=== PATIENT | male | born 1965 | race Caucasian/White ===

== ENCOUNTER 2017-02-12 15:12 | Emergency (ER) | payer SELFPAY ==
[2017-02-12 15:52] VITALS: BP 127/81
[2017-02-12 16:05] LABS: Hematocrit 41.1 % (35.5-45.6); Hemoglobin 13.4 gm/dl (11.8-15.2); Mean Corpuscular HGB Conc 33 % (32-34); Mean Corpuscular Hemoglobin 28 pg (28-32); Mean Corpuscular Volume 87 fl (84-94); Platelet Count 172 K/mm3 (140-440); Red Blood Count 4.75 M/mm3 (3.65-5.03); Red Cell Distribution Width 14.5 % (13.2-15.2); White Blood Count 5.3 K/mm3 (4.5-11.0)
[2017-02-12 16:26] LABS: Anion Gap 14 mmol/L; BUN/Creatinine Ratio 12.72; Blood Urea Nitrogen 14 mg/dL (9-20); Calcium 9.1 mg/dL (8.4-10.2); Carbon Dioxide 28 mmol/L (22-30); Chloride 99.5 mmol/L (98-107); Glucose 82 mg/dL (75-100); Potassium 3.6 mmol/L (3.6-5.0); Sodium 138 mmol/L (137-145)
[2017-02-12 18:31] LABS: Basophils % (Manual) 0 % (0.0-1.8); Blastocytes % (Manual) 0 %
[2017-02-12 18:32] LABS: Diff Status Complete; Ovalocytes Few; Platelet Estimate Consistent w Auto
== END 2017-02-12 17:51 | disposition left against medical advice (07) ==
LOC: ED 15:12
DX: M54.2 Cervicalgia (principal); M25.511 Pain in right shoulder; Z53.21 Procedure and treatment not carried out due to patient leaving prior to being seen by health care provider
CPT/HCPCS: 36415; 80048; 84484; 85007; 85025; 93005; 93010

== ENCOUNTER 2021-05-23 18:10 | Inpatient (IN) | payer OTHER, SELFPAY ==
--- NOTE | 2021-05-23 18:45 | Emergency Department Report ---
HPI - General Chief Complaint: Weakness Time Seen by Provider: 05/23/21 18:32 - HPI HPI: This is a 55-year-old -[place] male presents to the emergency department via EMS from home with the complaints of being Covid positive, shortness of breath, decreased oral intake causing failure to thrive. Supposedly the patient has not eaten anything in the past 12 days. He was found to be Covid positive on 05/11/2021. The patient appears altered and has difficulty communicating. EMS says that the patient has history of a CVA from about 20 years ago. Unknown if there are any residual deficits. He does not appear to have been to our emergency department previously. The patient had an oxygen saturation in the mid to low 70s and was placed on a nonrebreather. ED Past Medical Hx - Past Medical History Previous Medical History?: No - Social History Smoking Status: Current Every Day Smoker Substance Use Type: None ED Review of Systems ROS: Stated complaint: COVID+ /FAILURE TO THRIVE Other details as noted in HPI Comment: Unobtainable due to pts medical conditions Physical Exam - Physical Exam Vital Signs: Vital Signs 05/23/21 18:36 Temperature 97.9 F Pulse Rate 132 H Respiratory 24 Rate Blood Pressure 156/92 [Right] O2 Sat by Pulse 99 Oximetry Physical Exam: GENERAL: The patient is ill-appearing. HENT: Normocephalic. Atraumatic. Patient has moist mucous membranes. EYES: Extraocular motions are intact. Pupils equal reactive to light bilaterally. NECK: Supple. Trachea is midline. CHEST/LUNGS: Rhonchi heard bilaterally. Tachypnea and accessory muscle use. HEART/CARDIOVASCULAR: Regular. There is moderate tachycardia. There is no murmur. ABDOMEN: Abdomen is soft, nontender. Patient has normal bowel sounds. SKIN: Skin is warm and dry. NEURO: Patient is awake but mostly nonverbal. Sometimes makes unintelligible sounds. He does follow commands. No pronator drift to the bilateral upper extremities. Patient is able to briefly lift up his lower extremities but they fall back to the gurney. MUSCULOSKELETAL: There is no tenderness or deformity. ED Course Vital Signs 05/23/21 18:36 Temperature 97.9 F Pulse Rate 132 H Respiratory 24 Rate Blood Pressure 156/92 [Right] O2 Sat by Pulse 99 Oximetry - Consultations Consultation #1: 05/24/21 00:35 I spoke to the actuarial director on-call, Dr. He, regarding the patient's acute kidney injury and uremia. Given the patient's hyponatremia she recommends one half normal saline at about 75 cc/h. She agrees with the plan for a renal ultrasound and will be happy to consult on the patient. ED Medical Decision Making - Lab Data Result diagrams: 05/23/21 18:48 05/23/21 18:48 Lab Results 05/23/21 05/23/21 05/23/21 Range/Units 18:48 18:48 18:48 WBC 11.8 H (4.5-11.0) K/mm3 RBC 5.18 H (3.65-5.03) M/mm3 Hgb 14.4 (11.8-15.2) gm/dl Hct 45.3 (35.5-45.6) % MCV 88 (84-94) fl MCH 28 (28-32) pg MCHC 32 (32-34) % RDW 14.8 (13.2-15.2) % Plt Count 309 (140-440) K/mm3 Add Manual Diff Complete Total Counted 100 Seg Neuts % (Manual) 84.0 H (40.0-70.0) % Band Neutrophils % 1.0 % Lymphocytes % (Manual) 14.0 (13.4-35.0) % Monocytes % (Manual) 1.0 (0.0-7.3) % Nucleated RBC % Not Reportable Seg Neutrophils # Man 9.9 H (1.8-7.7) K/mm3 Band Neutrophils # 0.1 K/mm3 Lymphocytes # (Manual) 1.7 (1.2-5.4) K/mm3 Abs React Lymphs (Man) 0.0 K/mm3 Monocytes # (Manual) 0.1 (0.0-0.8) K/mm3 Eosinophils # (Manual) 0.0 (0.0-0.4) K/mm3 Basophils # (Manual) 0.0 (0.0-0.1) K/mm3 Metamyelocytes # 0.0 K/mm3 Myelocytes # 0.0 K/mm3 Promyelocytes # 0.0 K/mm3 Blast Cells # 0.0 K/mm3 WBC Morphology Not Reportable Hypersegmented Neuts Not Reportable Hyposegmented Neuts Not Reportable Hypogranular Neuts Not Reportable Smudge Cells Not Reportable Toxic Granulation Not Reportable Toxic Vacuolation Not Reportable Dohle Bodies Not Reportable Pelger-Huet Anomaly Not Reportable Kaci Rods Not Reportable Platelet Estimate Consistent w auto Clumped Platelets Not Reportable Plt Clumps, EDTA Not Reportable Large Platelets Not Reportable Giant Platelets Not Reportable Platelet Satelliting Not Reportable Plt Morphology Comment Not Reportable RBC Morphology Not Reportable Dimorphic RBCs Not Reportable Polychromasia Not Reportable Hypochromasia Not Reportable Poikilocytosis Not Reportable Anisocytosis 1+ Microcytosis Not Reportable Macrocytosis Not Reportable Spherocytes Not Reportable Pappenheimer Bodies Not Reportable Sickle Cells Not Reportable Target Cells Not Reportable Tear Drop Cells Not Reportable Ovalocytes Not Reportable Helmet Cells Not Reportable [place] Bodies Not Reportable [place] Rings Not Reportable [place] Cells Not Reportable Bite Cells Not Reportable Crenated Cell Not Reportable Elliptocytes Not Reportable Acanthocytes (Spur) Not Reportable Rouleaux Not Reportable Hemoglobin C Crystals Not Reportable Schistocytes Not Reportable Malaria parasites Not Reportable Dick Bodies Not Reportable Hem Pathologist Commnt No D-Dimer > 93850 H (0-234) ng/mlDDU Sodium (137-145) mmol/L Potassium (3.6-5.0) mmol/L Chloride (98-107) mmol/L Carbon Dioxide (22-30) mmol/L Anion Gap mmol/L BUN (9-20) mg/dL Creatinine (0.8-1.3) mg/dL Estimated GFR ml/min BUN/Creatinine Ratio % Glucose (75-100) mg/dL Lactic Acid 2.30 H* (0.7-2.0) mmol/L Calcium (8.4-10.2) mg/dL Ferritin (30.0-300.0) ng/mL Total Bilirubin (0.1-1.2) mg/dL AST (5-40) units/L ALT (7-56) units/L Alkaline Phosphatase (35-129) units/L Ammonia (25-60) umol/L Lactate Dehydrogenase (91-180) units/L Troponin T (0.00-0.029) ng/mL C-Reactive Protein (0.00-1.30) mg/dL Total Protein (6.3-8.2) g/dL Albumin (3.9-5) g/dL Albumin/Globulin Ratio % TSH (0.270-4.200) mlU/mL Plasma/Serum Alcohol (0-0.07) % 05/23/21 05/23/21 05/23/21 Range/Units 18:48 18:48 18:48 WBC (4.5-11.0) K/mm3 RBC (3.65-5.03) M/mm3 Hgb (11.8-15.2) gm/dl Hct (35.5-45.6) % MCV (84-94) fl MCH (28-32) pg MCHC (32-34) % RDW (13.2-15.2) % Plt Count (140-440) K/mm3 Add Manual Diff Total Counted Seg Neuts % (Manual) (40.0-70.0) % Band Neutrophils % % Lymphocytes % (Manual) (13.4-35.0) % Monocytes % (Manual) (0.0-7.3) % Nucleated RBC % Seg Neutrophils # Man (1.8-7.7) K/mm3 Band Neutrophils # K/mm3 Lymphocytes # (Manual) (1.2-5.4) K/mm3 Abs React Lymphs (Man) K/mm3 Monocytes # (Manual) (0.0-0.8) K/mm3 Eosinophils # (Manual) (0.0-0.4) K/mm3 Basophils # (Manual) (0.0-0.1) K/mm3 Metamyelocytes # K/mm3 Myelocytes # K/mm3 Promyelocytes # K/mm3 Blast Cells # K/mm3 WBC Morphology Hypersegmented Neuts Hyposegmented Neuts Hypogranular Neuts Smudge Cells Toxic Granulation Toxic Vacuolation Dohle Bodies Pelger-Huet Anomaly Kaci Rods Platelet Estimate Clumped Platelets Plt Clumps, EDTA Large Platelets Giant Platelets Platelet Satelliting Plt Morphology Comment RBC Morphology Dimorphic RBCs Polychromasia Hypochromasia Poikilocytosis Anisocytosis Microcytosis Macrocytosis Spherocytes Pappenheimer Bodies Sickle Cells Target Cells Tear Drop Cells Ovalocytes Helmet Cells [place] Bodies [place] Rings Mozelle Cells Bite Cells Crenated Cell Elliptocytes Acanthocytes (Spur) Rouleaux Hemoglobin C Crystals Schistocytes Malaria parasites Dick Bodies Hem Pathologist Commnt D-Dimer (0-234) ng/mlDDU Sodium 151 H (137-145) mmol/L Potassium 5.1 H (3.6-5.0) mmol/L Chloride 113.2 H (98-107) mmol/L Carbon Dioxide 17 L (22-30) mmol/L Anion Gap 26 mmol/L BUN 180 H (9-20) mg/dL Creatinine 4.3 H (0.8-1.3) mg/dL Estimated GFR 14 ml/min BUN/Creatinine Ratio 42 % Glucose 114 H (75-100) mg/dL Lactic Acid (0.7-2.0) mmol/L Calcium 9.5 (8.4-10.2) mg/dL Ferritin 2000.0 H (30.0-300.0) ng/mL Total Bilirubin 0.90 (0.1-1.2) mg/dL AST 27 (5-40) units/L ALT 7 (7-56) units/L Alkaline Phosphatase 69 (35-129) units/L Ammonia 22.0 L (25-60) umol/L Lactate Dehydrogenase 577 H (91-180) units/L Troponin T < 0.010 (0.00-0.029) ng/mL C-Reactive Protein 8.80 H (0.00-1.30) mg/dL Total Protein 9.4 H (6.3-8.2) g/dL Albumin 3.0 L (3.9-5) g/dL Albumin/Globulin Ratio 0.5 % TSH (0.270-4.200) mlU/mL Plasma/Serum Alcohol (0-0.07) % 05/23/21 05/23/21 05/23/21 Range/Units 18:48 18:48 21:06 WBC (4.5-11.0) K/mm3 RBC (3.65-5.03) M/mm3 Hgb (11.8-15.2) gm/dl Hct (35.5-45.6) % MCV (84-94) fl MCH (28-32) pg MCHC (32-34) % RDW (13.2-15.2) % Plt Count (140-440) K/mm3 Add Manual Diff Total Counted Seg Neuts % (Manual) (40.0-70.0) % Band Neutrophils % % Lymphocytes % (Manual) (13.4-35.0) % Monocytes % (Manual) (0.0-7.3) % Nucleated RBC % Seg Neutrophils # Man (1.8-7.7) K/mm3 Band Neutrophils # K/mm3 Lymphocytes # (Manual) (1.2-5.4) K/mm3 Abs React Lymphs (Man) K/mm3 Monocytes # (Manual) (0.0-0.8) K/mm3 Eosinophils # (Manual) (0.0-0.4) K/mm3 Basophils # (Manual) (0.0-0.1) K/mm3 Metamyelocytes # K/mm3 Myelocytes # K/mm3 Promyelocytes # K/mm3 Blast Cells # K/mm3 WBC Morphology Hypersegmented Neuts Hyposegmented Neuts Hypogranular Neuts Smudge Cells Toxic Granulation Toxic Vacuolation Dohle Bodies Pelger-Huet Anomaly Kaci Rods Platelet Estimate Clumped Platelets Plt Clumps, EDTA Large Platelets Giant Platelets Platelet Satelliting Plt Morphology Comment RBC Morphology Dimorphic RBCs Polychromasia Hypochromasia Poikilocytosis Anisocytosis Microcytosis Macrocytosis Spherocytes Pappenheimer Bodies Sickle Cells Target Cells Tear Drop Cells Ovalocytes Helmet Cells [place] Bodies [place] Rings Mozelle Cells Bite Cells Crenated Cell Elliptocytes Acanthocytes (Spur) Rouleaux Hemoglobin C Crystals Schistocytes Malaria parasites Dick Bodies Hem Pathologist Commnt D-Dimer (0-234) ng/mlDDU Sodium (137-145) mmol/L Potassium (3.6-5.0) mmol/L Chloride (98-107) mmol/L Carbon Dioxide (22-30) mmol/L Anion Gap mmol/L BUN (9-20) mg/dL Creatinine (0.8-1.3) mg/dL Estimated GFR ml/min BUN/Creatinine Ratio % Glucose (75-100) mg/dL Lactic Acid 2.10 H* (0.7-2.0) mmol/L Calcium (8.4-10.2) mg/dL Ferritin (30.0-300.0) ng/mL Total Bilirubin (0.1-1.2) mg/dL AST (5-40) units/L ALT (7-56) units/L Alkaline Phosphatase (35-129) units/L Ammonia (25-60) umol/L Lactate Dehydrogenase (91-180) units/L Troponin T (0.00-0.029) ng/mL C-Reactive Protein (0.00-1.30) mg/dL Total Protein (6.3-8.2) g/dL Albumin (3.9-5) g/dL Albumin/Globulin Ratio % TSH 1.150 (0.270-4.200) mlU/mL Plasma/Serum Alcohol < 0.01 (0-0.07) % - EKG Data -: EKG Interpreted by [facility] EKG shows normal: sinus rhythm, axis (Left axis deviation), intervals, QRS complexes, ST-T waves Rate: tachycardia (122 bpm) - EKG Data When compared to previous EKG there are: previous EKG unavailable Interpretation: other (Sinus tachycardia. Normal axis, normal intervals. No ST elevation KS) - Radiology Data Radiology results: report reviewed CT head/brain wo con INDICATION / CLINICAL INFORMATION: 55 years Male; Altered mental status. TECHNIQUE: Routine CT head without contrast. All CT scans at this location are performed using CT dose reduction for ALARA by means of automated exposure control. COMPARISON: None. FINDINGS: BRAIN / INTRACRANIAL CONTENTS: No acute hemorrhage, mass effect, midline shift, hydrocephalus, or acute, large territorial infarct. Mild, diffuse cerebral atrophy suggested. There are mild areas of decreased attenuation in the white matter of the cerebral hemispheres. These are nonspecific findings and may be related to microangiopathy (hypertension, diabetes, atherosclerosis), given the patient's age. CRANIOCERV ICAL JUNCTION: No significant abnormality. ORBITS: No significant abnormality of visualized orbits. SINUSES / MASTOIDS: Visualized paranasal sinuses and mastoid air cells are essentially clear. ADDITIONAL FINDINGS: None. IMPRESSION: 1. No focal mass, hemorrhage, hydrocephalus, or acute, large territorial infarct. Fluoro Time In Minutes: CHEST 1 VIEW INDICATION: Altered mental status. COMPARISON: None FINDINGS: SUPPORT DEVICES: None. HEART: Within normal limits. L UNGS/PLEURA: Mild patchy multifocal airspace disease throughout the lungs. No pleural effusion. ADDITIONAL FINDINGS: None. IMPRESSION: 1. Pulmonary findings as above. NUCLEAR MEDICINE PERFUSION LUNG SCAN INDICATION / CLINICAL INFORMATION: elevated dimer, SOB. TECHNIQUE: 5 mCi of Tc-99m MAA were given by IV. COMPARISON: Chest radiograph dated 05/23/2021. FINDINGS: PERFUSION: No significant perfusion defects. ADDITIONAL FINDINGS: None. IMPRESSION: 1. Low probability for pulmonary embolism. - Medical Decision Making This patient presents to the emergency department with altered mental status, decreased oral intake causing failure to thrive. Patient is awake and will follow some commands but does appear weak, altered and malnourished. He is mostly nonverbal. The patient was found to be positive for COVID-19 about 12 days ago. He was about 75% oxygen saturation on room air and was placed on a nonrebreather. Chest x-ray shows bilateral patchy infiltrates consistent with pneumonia. Patient's labs shows acute kidney injury with a GFR of 14, uremia with a BUN of 180, and elevated inflammatory markers such as D-dimer, LDH, CRP and ferritin levels. With the hypoxia and the elevated D-dimer level, the patient had a ventilation/perfusion scan that was low probability for pulmonary embolism. He had a CT scan of the head without contrast that did not show any bleed, large vessel occlusion, or any other acute process. Nephrology was contacted and consulted regarding the uremia and ANGELES. We were able to titrate the patient down from a nonrebreather to nasal cannula. Patient will be admitted to the hospital for further evaluation and treatment and was accepted for admission by the hospitalist, Dr. Ramsay. Critical Care Time: Yes Critical care time in (mins) excluding proc time.: 35 Critical care attestation.: If time is entered above; I have spent that time in minutes in the direct care of this critically ill patient, excluding procedure time. Critical care time was spent on this patient in doing his initial evaluation, multiple reevaluations, ordering and interpretation of labs and imaging, supplemental oxygen for his hypoxia, IV fluid resuscitation for his failure to thrive, uremia and ANGELES, discussion with the nephrology service. Critical Care Time: 35 minutes ED Disposition Clinical Impression: Suspected 2019 novel coronavirus infection, ANGELES (acute kidney injury), Failure to thrive, Bilateral pneumonia, Hypoxia, Uremia, acute, Encephalopathy Disposition: ADMITTED INPATIENT Is pt being admited?: Yes Condition: Serious Time of Disposition: 21:41
[2021-05-23 19:06] LABS: Hematocrit 45.3 % (35.5-45.6); Hemoglobin 14.4 gm/dl (11.8-15.2); Mean Corpuscular HGB Conc 32 % (32-34); Mean Corpuscular Volume 88 fl (84-94); Platelet Count 309 K/mm3 (140-440); Red Blood Count 5.18 M/mm3 (3.65-5.03); Red Cell Distribution Width 14.8 % (13.2-15.2)
--- NOTE | 2021-05-23 19:12 | XRay Report ---
CHEST 1 VIEW INDICATION: Altered mental status. COMPARISON: None FINDINGS: SUPPORT DEVICES: None. HEART: Within normal limits. LUNGS/PLEURA: Mild patchy multifocal airspace disease throughout the lungs. No pleural effusion. ADDITIONAL FINDINGS: None. IMPRESSION: 1. Pulmonary findings as above. Signer Name: Demian Liriano MD Signed: 05/23/2021 7:08 PM Workstation Name: [id number]
[2021-05-23] MEDS ORDERED: SODIUM CHLORIDE 0.9% 500 ML 500 ML IV ONE (19:15)
[2021-05-23] MEDS ORDERED: SODIUM CHLORIDE 0.9% 1000 ML 1,000 ML IV ONE (19:16)
--- NOTE | 2021-05-23 19:29 | Cat Scan Report ---
CT head/brain wo con INDICATION / CLINICAL INFORMATION: 55 years Male; Altered mental status. TECHNIQUE: Routine CT head without contrast. All CT scans at this location are performed using CT dos e reduction for ALARA by means of automated exposure control. COMPARISON: None. FINDINGS: BRAIN / INTRACRANIAL CONTENTS: No acute hemorrhage, mass effect, midline shift, hydrocephalus, or acu te, large territorial infarct. Mild, diffuse cerebral atrophy suggested. There are mild areas of decreased attenuation in the white matter of the cerebral hemispheres. These are nonspecific findings and may be related to microangiopathy (hypertension, diabetes, atheroscleros is), given the patient's age. CRANIOCERVICAL JUNCTION: No significant abnormality. ORBITS: No significant abnormality of visualized orbits. SINUSES / MASTOIDS: Visualized paranasal sinuses and mastoid air cells are essentially clear. ADDITIONAL FINDINGS: None. IMPRESSION: 1. No focal mass, hemorrhage, hydrocephalus, or acute, large territorial infarct. Signer Name: Cecilio Cavanaugh MD, III Signed: 05/23/2021 7:24 PM Workstation Name: [id number]
[2021-05-23 19:33] LABS: Alanine Aminotransferase 7 units/L (7-56); Calcium 9.5 mg/dL (8.4-10.2); Hemolysis Index 8
[2021-05-23] MEDS ORDERED: dexAMETHasone 4 MG/ML VIAL IV ONE (19:34)
[2021-05-23] MEDS ORDERED: AZITHROMYCIN/NS 500 MG/250 ML 500 MG/250 ML BAG IV ONE (19:35)
[2021-05-23] MEDS ORDERED: cefTRIAXone/NS 1 GM/50 ML 1 GM/50 ML BAG IV ONE (19:35)
[2021-05-23 19:50] LABS: BUN/Creatinine Ratio 42; Blood Urea Nitrogen 180 mg/dL (9-20)
[2021-05-23] MEDS ORDERED: MAGNESIUM HYDROXIDE (MOM) ORAL LIQD UDC PO PRN (22:01)
[2021-05-23] MEDS ORDERED: MORPHINE 4 MG/1 ML INJ IV PRN (22:01)
--- NOTE | 2021-05-23 22:12 | History and Physical Report ---
History of Present Illness Date of examination: 05/23/21 Date of admission: 05/23/2021 Chief complaint: Shortness of Breath History of present illness: 55-year-old -[place] male who was diagnosed with COVID-19 on May 11, 2021 presents to the emergency room today with complaints of shortness of breath and decreased oral intake over the past 10 to 12 days. Patient also has known history of CVA about 20 years ago and it is unknown whether patient had any residual deficits. Patient has not been able to communicate well and most of the history was gotten from the ER staff. Initial oxygen saturation according to EMS was about 70% and patient was placed on nonrebreather. He was eventually placed on oxygen by nasal cannula upon arrival in the emergency room with significant improvement in his oxygen saturation. Work-up in the emergency room reveals a D-dimer greater than 10,000, sodium 151 potassium of 5.1, BUN of 180) and creatinine of 4.3. Patient had a lactic acid of 2.3. WBC was 11.8. CT scan of the head shows no acute abnormality. Chest x-ray shows mild patchy multifocal airspace disease throughout the lungs. No pleural effusion. VQ scan done showed low probability for pulmonary embolism. Patient being admitted with pneumonia possibly secondary to COVID-19, hypoxia and encephalopathy. Past History Past Medical History: No medical history Past Surgical History: No surgical history Social history: smoking (Current daily smoker) Family history: no significant family history Medications and Allergies Allergies Allergy/AdvReac Type Severity Reaction Status Date / Time No Known Allergies Allergy Unverified 02/12/17 15:47 Active Meds: Active Medications Acetaminophen (Acetaminophen 650 Mg Rect Supp) [address] Q6H PRN PRN Reason: Pain MILD(1-3)/Fever >100.5/LUCAS Sodium Chloride (Nacl 0.9% 1000 Ml) 1,000 mls @ 125 mls/hr IV ONCE ONE Stop: 05/24/21 03:15 Sodium Chloride (Nacl 0.9% 1000 Ml) 1,000 mls @ 125 mls/hr IV DIRECT MIKE Ceftriaxone Sodium (Rocephin/Ns 2 Gm/100 Ml) 2 gm in 100 mls @ 200 mls/hr IV Q24H MIKE; Protocol Azithromycin (Zithromax/Ns) 500 mg in 250 mls @ 250 mls/hr IV Q24H MIKE; Protocol Magnesium Hydroxide (Magnesium Hydroxide (Mom) Oral Liqd Udc) 30 ml PO Q4H PRN PRN Reason: Constipation Morphine Sulfate (Morphine 2 Mg/1 Ml Inj) 2 mg IV Q4H PRN PRN Reason: Pain, Moderate (4-6) Morphine Sulfate (Morphine 4 Mg/1 Ml Inj) 4 mg IV Q4H PRN PRN Reason: Pain , Severe (7-10) Sodium Chloride (Sodium Chloride 0.9% 10 Ml Flush Syringe) 10 ml IV BID MIKE Sodium Chloride (Sodium Chloride 0.9% 10 Ml Flush Syringe) 10 ml IV PRN PRN PRN Reason: LINE FLUSH Review of Systems ROS unobtainable: due to mental status Exam - Constitutional Vitals: Temp Pulse Resp BP Pulse Ox 97.9 F 132 H 24 156/92 100 05/23/21 18:36 05/23/21 18:36 05/23/21 18:36 05/23/21 18:36 05/23/21 22:04 General appearance: Present: mild distress, well-nourished - EENT Eyes: Present: PERRL, EOM intact. Absent: scleral icterus ENT: hearing intact, clear oral mucosa, dentition normal - Neck Neck: Present: supple, normal ROM - Respiratory Respiratory effort: normal Respiratory: bilateral: diminished - Cardiovascular Rhythm: regular Heart Sounds: Present: S1 & S2. Absent: gallop, systolic murmur, diastolic murmur, rub, click - Extremities Extremities: no ischemia, pulses intact, pulses symmetrical, No edema, normal temperature, normal color, Full ROM Peripheral Pulses: within normal limits - Abdominal General gastrointestinal: Present: soft, non-tender, non-distended, normal bowel sounds. Absent: mass - Integumentary Integumentary: Present: clear, warm, dry. Absent: rash - Musculoskeletal Musculoskeletal: strength equal bilaterally - Psychiatric Psychiatric: appropriate mood/affect, cooperative - Neurologic Neurologic: CNII-XII intact, no focal deficits, moves all extremities, other (Lethargic, Unresponsive) HEART Score - HEART Score Troponin: Troponin T < 0.010 ng/mL (0.00-0.029) 05/23/21 18:48 Results - Labs CBC & Chem 7: 05/23/21 18:48 05/23/21 18:48 Labs: Abnormal lab results 05/23/21 05/23/21 05/23/21 Range/Units 18:48 18:48 18:48 WBC 11.8 H (4.5-11.0) K/mm3 RBC 5.18 H (3.65-5.03) M/mm3 D-Dimer > 62623 H (0-234) ng/mlDDU Sodium (137-145) mmol/L Potassium (3.6-5.0) mmol/L Chloride (98-107) mmol/L Carbon Dioxide (22-30) mmol/L BUN (9-20) mg/dL Creatinine (0.8-1.3) mg/dL Glucose (75-100) mg/dL Lactic Acid 2.30 H* (0.7-2.0) mmol/L Ferritin (30.0-300.0) ng/mL Ammonia (25-60) umol/L Lactate Dehydrogenase (91-180) units/L C-Reactive Protein (0.00-1.30) mg/dL Total Protein (6.3-8.2) g/dL Albumin (3.9-5) g/dL 05/23/21 05/23/21 05/23/21 Range/Units 18:48 18:48 18:48 WBC (4.5-11.0) K/mm3 RBC (3.65-5.03) M/mm3 D-Dimer (0-234) ng/mlDDU Sodium 151 H (137-145) mmol/L Potassium 5.1 H (3.6-5.0) mmol/L Chloride 113.2 H (98-107) mmol/L Carbon Dioxide 17 L (22-30) mmol/L BUN 180 H (9-20) mg/dL Creatinine 4.3 H (0.8-1.3) mg/dL Glucose 114 H (75-100) mg/dL Lactic Acid (0.7-2.0) mmol/L Ferritin 2000.0 H (30.0-300.0) ng/mL Ammonia 22.0 L (25-60) umol/L Lactate Dehydrogenase 577 H (91-180) units/L C-Reactive Protein 8.80 H (0.00-1.30) mg/dL Total Protein 9.4 H (6.3-8.2) g/dL Albumin 3.0 L (3.9-5) g/dL Assessment and Plan - Patient Problems (1) Bilateral pneumonia Current Visit: Yes Status: Acute Plan to address problem: Possibly secondary to COVID-19 pneumonia. Patient has been started on IV steroid. Was also initiated on empiric IV antibiotics. Will await culture results. (2) Suspected 2019 novel coronavirus infection Current Visit: Yes Status: Acute Plan to address problem: Patient placed on isolation precautions. We await COVID-19 testing. Consult placed to infectious disease for evaluation. (3) Encephalopathy Current Visit: Yes Status: Acute Plan to address problem: Possibly metabolic and also underlying infection. We will continue on IV fluid and empiric IV antibiotics. We will monitor chemistry. We will continue to monitor mental status. (4) ANGELES (acute kidney injury) Current Visit: Yes Status: Acute Plan to address problem: Possibly prerenal. We will continue on IV fluid hydration. Consult placed to nephrology for evaluation. (5) Hypoxia Current Visit: Yes Status: Acute Plan to address problem: Secondary to the underlying pneumonia. We will keep O2 saturation greater or equal to 92%. (6) Failure to thrive Current Visit: Yes Status: Acute Plan to address problem: Secondary to decreased oral intake over the past 12 days. Dietary consult requested for evaluation. (7) DVT prophylaxis Current Visit: Yes Status: Acute Plan to address problem: Patient placed on subcutaneous heparin. (8) Full code status Current Visit: Yes Status: Acute Plan to address problem: Patient is full code.
[2021-05-23] MEDS ORDERED: SODIUM CHLORIDE 0.9% 1000 ML 1,000 ML IV SCH (22:15)
[2021-05-23 22:28] LABS: Anisocytosis 1+; Band Neutrophils # (Manual) 0.1 K/mm3; Platelet Estimate Consistent w Auto; Total Cells Counted 100
--- NOTE | 2021-05-23 23:17 | Nuclear Medicine Report ---
NUCLEAR MEDICINE PERFUSION LUNG SCAN INDICATION / CLINICAL INFORMATION: elevated dimer, SOB. TECHNIQUE: 5 mCi of Tc-99m MAA were given by IV. COMPARISON: Chest radiograph dated 05/23/2021. FINDINGS: PERFUSION: No significant perfusion defects. ADDITIONAL FINDINGS: None. IMPRESSION: 1. Low probability for pulmonary embolism. Signer Name: Babar Sahu MD Signed: 05/23/2021 11:13 PM Workstation Name: [id number]
[2021-05-24] MEDS ORDERED: SODIUM CHLORIDE 0.45% 1000 ML 1,000 ML IV SCH (01:00)
[2021-05-24] MEDS ORDERED: D5W/0.45% NACL 1,000 ML IV SCH (06:00)
[2021-05-24] MEDS: HEPARIN 5,000 UNIT/1 ML VIAL SUB-Q SCH ×3 (06:19→22:21)
--- NOTE | 2021-05-24 08:02 | Ultrasound Report ---
ULTRASOUND RENAL INDICATION / CLINICAL INFORMATION: ANGELES. COMPARISON: None available. FINDINGS: RIGHT KIDNEY: - Length = 9.7 cm. [Normal > 9.0 cm] - Parenchymal Thickness = 1.6 cm. [Normal > 1.5 cm] - Echogenicity: Normal -- hypoechoic or isoechoic to liver/spleen. - Hydronephrosis: None. - Cyst or mass: No significant abnormality. LEFT KIDNEY: - Length = 9.5 cm. [Normal > 9.0 cm] - Parenchymal Thickness = 1.9 cm. [Normal > 1.5 cm] - Echogenicity: Normal -- hypoechoic or isoechoic to liver/spleen. - Hydronephrosis: None. - Cyst or mass: No significant abnormality. URINARY BLADDER: No significant abnormality. ADDITIONAL FINDINGS: None. IMPRESSION: No evidence of medical renal disease or hydronephrosis. Renal Parenchymal Thickness Parenchyma = Cortex + Medullary Pyramid - Normal >= 1.5 cm - Mild thinning = 1.0-1.49 cm - Moderate thinning = 0.5-0.99 cm - Severe thinning < 0.5 cm Signer Name: Speedy Bob MD Signed: 05/24/2021 7:58 AM Workstation Name: [id number]
[2021-05-24] MEDS: MORPHINE 2 MG/1 ML INJ IV PRN (08:33)
--- NOTE | 2021-05-24 10:34 | Progress Note ---
Assessment and Plan Assessment and plan: #Acute hypoxic respiratory failure -O2 saturation 70% via EMS -Currently greater than 92% on nasal cannula -D-dimer greater than 10,000 -Chest x-ray showed patchy multifocal airspace disease bilaterally -VQ scan low probability for PE -We will continue antibiotics and steroids for now -will continue to monitor, if patient condition worsens, low threshold for Pulmonary/CC consult #Sepsis -Patient tachycardic and tachypneic -Blood cultures ordered -Likely secondary to COVID-19 infection/pneumonia #Lactic acidosis -Lactate 2.3 -> 1.70 -Resolved #Acute encephalopathy -CT head negative, ammonia 22 -Patient cooperative follows commands #ANGELES -Creatinine 4.3 -Likely prerenal secondary to volume depletion after several days of no oral intake -Renal ultrasound unremarkable -Nephrology consulted, recs appreciated -will avoid nephrotoxic agents #pneumonia -Continue azithromycin and Rocephin #COVID-19 infection -Diagnosed on 05/11 D-dimer greater than 10,000, ferritin 2000, LDH 577, CRP 8.8 -ID consulted, assistance appreciated -Continue steroids x10 days and cover vitamins #Hypernatremia -Continue D5 half-normal saline -Likely secondary to almost 2 weeks no oral intake Total Time Spent with Patient (Minutes): 30 minutes History Interval history: No events since admission. Patient stable on 5 L. Denies any discomfort. Hospitalist Physical - Physical exam Narrative exam: GENERAL: Thin male. Lying in bed in no acute distress. HEENT: Nasal cannula in place that 5 L/min CHEST/LUNGS: Coarse breath sounds bilaterally. No use of outreach liaison muscles of breathing. HEART/CARDIOVASCULAR: Tachycardic. No murmur, rubs or gallops appreciated. ABDOMEN: +BS. NT/ND. SKIN: Poor skin turgor NEURO: Left lower extremity weakness. Follows all commands. EXTREMITIES: No cyanosis, cubbing or edema. PSYCH: Cooperative. - Constitutional Vitals: Temp Pulse Resp BP Pulse Ox 97.9 F 124 H 33 H 129/80 100 05/23/21 18:36 05/24/21 06:01 05/24/21 06:01 05/24/21 06:01 05/24/21 08:29 General appearance: Present: mild distress, well-nourished HEART Score - HEART Score Troponin: Troponin T < 0.010 ng/mL (0.00-0.029) 05/23/21 18:48 Results - Labs CBC & Chem 7: 05/23/21 18:48 05/23/21 18:48 Labs: Laboratory Last Values WBC 11.8 K/mm3 (4.5-11.0) H 05/23/21 18:48 RBC 5.18 M/mm3 (3.65-5.03) H 05/23/21 18:48 Hgb 14.4 gm/dl (11.8-15.2) 05/23/21 18:48 Hct 45.3 % (35.5-45.6) 05/23/21 18:48 MCV 88 fl (84-94) 05/23/21 18:48 MCH 28 pg (28-32) 05/23/21 18:48 MCHC 32 % (32-34) 05/23/21 18:48 RDW 14.8 % (13.2-15.2) 05/23/21 18:48 Plt Count 309 K/mm3 (140-440) 05/23/21 18:48 Add Manual Diff Complete 05/23/21 18:48 Total Counted 100 05/23/21 18:48 Seg Neuts % (Manual) 84.0 % (40.0-70.0) H 05/23/21 18:48 Band Neutrophils % 1.0 % 05/23/21 18:48 Lymphocytes % (Manual) 14.0 % (13.4-35.0) 05/23/21 18:48 Monocytes % (Manual) 1.0 % (0.0-7.3) 05/23/21 18:48 Nucleated RBC % Not Reportable 05/23/21 18:48 Seg Neutrophils # Man 9.9 K/mm3 (1.8-7.7) H 05/23/21 18:48 Band Neutrophils # 0.1 K/mm3 05/23/21 18:48 Lymphocytes # (Manual) 1.7 K/mm3 (1.2-5.4) 05/23/21 18:48 Abs React Lymphs (Man) 0.0 K/mm3 05/23/21 18:48 Monocytes # (Manual) 0.1 K/mm3 (0.0-0.8) 05/23/21 18:48 Eosinophils # (Manual) 0.0 K/mm3 (0.0-0.4) 05/23/21 18:48 Basophils # (Manual) 0.0 K/mm3 (0.0-0.1) 05/23/21 18:48 Metamyelocytes # 0.0 K/mm3 05/23/21 18:48 Myelocytes # 0.0 K/mm3 05/23/21 18:48 Promyelocytes # 0.0 K/mm3 05/23/21 18:48 Blast Cells # 0.0 K/mm3 05/23/21 18:48 WBC Morphology Not Reportable 05/23/21 18:48 Hypersegmented Neuts Not Reportable 05/23/21 18:48 Hyposegmented Neuts Not Reportable 05/23/21 18:48 Hypogranular Neuts Not Reportable 05/23/21 18:48 Smudge Cells Not Reportable 05/23/21 18:48 Toxic Granulation Not Reportable 05/23/21 18:48 Toxic Vacuolation Not Reportable 05/23/21 18:48 Dohle Bodies Not Reportable 05/23/21 18:48 Pelger-Huet Anomaly Not Reportable 05/23/21 18:48 Kaci Rods Not Reportable 05/23/21 18:48 Platelet Estimate Consistent w auto 05/23/21 18:48 Clumped Platelets Not Reportable 05/23/21 18:48 Plt Clumps, EDTA Not Reportable 05/23/21 18:48 Large Platelets Not Reportable 05/23/21 18:48 Giant Platelets Not Reportable 05/23/21 18:48 Platelet Satelliting Not Reportable 05/23/21 18:48 Plt Morphology Comment Not Reportable 05/23/21 18:48 RBC Morphology Not Reportable 05/23/21 18:48 Dimorphic RBCs Not Reportable 05/23/21 18:48 Polychromasia Not Reportable 05/23/21 18:48 Hypochromasia Not Reportable 05/23/21 18:48 Poikilocytosis Not Reportable 05/23/21 18:48 Anisocytosis 1+ 05/23/21 18:48 Microcytosis Not Reportable 05/23/21 18:48 Macrocytosis Not Reportable 05/23/21 18:48 Spherocytes Not Reportable 05/23/21 18:48 Pappenheimer Bodies Not Reportable 05/23/21 18:48 Sickle Cells Not Reportable 05/23/21 18:48 Target Cells Not Reportable 05/23/21 18:48 Tear Drop Cells Not Reportable 05/23/21 18:48 Ovalocytes Not Reportable 05/23/21 18:48 Helmet Cells Not Reportable 05/23/21 18:48 We[place] Bodies Not Reportable 05/23/21 18:48 Protection Rings Not Reportable 05/23/21 18:48 [place] Cells Not Reportable 05/23/21 18:48 Bite Cells Not Reportable 05/23/21 18:48 Crenated Cell Not Reportable 05/23/21 18:48 Elliptocytes Not Reportable 05/23/21 18:48 Acanthocytes (Spur) Not Reportable 05/23/21 18:48 Rouleaux Not Reportable 05/23/21 18:48 Hemoglobin C Crystals Not Reportable 05/23/21 18:48 Schistocytes Not Reportable 05/23/21 18:48 Malaria parasites Not Reportable 05/23/21 18:48 Dick Bodies Not Reportable 05/23/21 18:48 Hem Pathologist Commnt No 05/23/21 18:48 D-Dimer > 40002 ng/mlDDU (0-234) H 05/23/21 18:48 VBG pH 7.254 (7.320-7.420) L 05/24/21 02:09 Sodium 151 mmol/L (137-145) H 05/23/21 18:48 Potassium 5.1 mmol/L (3.6-5.0) H 05/23/21 18:48 Chloride 113.2 mmol/L (98-107) H 05/23/21 18:48 Carbon Dioxide 17 mmol/L (22-30) L 05/23/21 18:48 Anion Gap 26 mmol/L 05/23/21 18:48 BUN 180 mg/dL (9-20) H 05/23/21 18:48 Creatinine 4.3 mg/dL (0.8-1.3) H 05/23/21 18:48 Estimated GFR 14 ml/min 05/23/21 18:48 BUN/Creatinine Ratio 42 % 05/23/21 18:48 Glucose 114 mg/dL (75-100) H 05/23/21 18:48 Lactic Acid 2.30 mmol/L (0.7-2.0) H* 05/24/21 02:09 Calcium 9.5 mg/dL (8.4-10.2) 05/23/21 18:48 Ferritin 2000.0 ng/mL (30.0-300.0) H 05/23/21 18:48 Total Bilirubin 0.90 mg/dL (0.1-1.2) 05/23/21 18:48 AST 27 units/L (5-40) 05/23/21 18:48 ALT 7 units/L (7-56) 05/23/21 18:48 Alkaline Phosphatase 69 units/L (35-129) 05/23/21 18:48 Ammonia 22.0 umol/L (25-60) L 05/23/21 18:48 Lactate Dehydrogenase 577 units/L (91-180) H 05/23/21 18:48 Troponin T < 0.010 ng/mL (0.00-0.029) 05/23/21 18:48 C-Reactive Protein 8.80 mg/dL (0.00-1.30) H 05/23/21 18:48 Total Protein 9.4 g/dL (6.3-8.2) H 05/23/21 18:48 Albumin 3.0 g/dL (3.9-5) L 05/23/21 18:48 Albumin/Globulin Ratio 0.5 % 05/23/21 18:48 TSH 1.150 mlU/mL (0.270-4.200) 05/23/21 18:48 Plasma/Serum Alcohol < 0.01 % (0-0.07) 05/23/21 18:48 Microbiology: Microbiology 05/23/21 19:50 Peripheral/Venous Blood Culture - Preliminary Culture in Progress 05/23/21 19:42 Peripheral/Venous Blood Culture - Preliminary Culture in Progress Active Medications - Current Medications Current Medications: Generic Name Dose Route Start Last Admin Trade Name Freq PRN Reason Stop Dose Admin Acetaminophen 650 mg 05/23/21 22:01 Acetaminophen 650 Mg Rect Supp ME Q6H PRN Pain MILD(1-3)/Fever >100.5/LUCAS Dexamethasone 6 mg 05/24/21 10:00 Dexamethasone 4 Mg/Ml Vial IV Q24HR MIKE Heparin Sodium (Porcine) 5,000 unit 05/24/21 06:00 05/24/21 06:19 Heparin 5,000 Unit/1 Ml Vial SUB-Q 5,000 unit Q8HR MIKE Administration Ceftriaxone Sodium 2 gm in 100 mls @ 200 mls/hr 05/24/21 10:00 Rocephin/Ns 2 Gm/100 Ml IV Q24HR MIKE Protocol Azithromycin 500 mg in 250 mls @ 250 mls/hr 05/24/21 10:00 Zithromax/Ns IV Q24HR MIKE Protocol Dextrose/Sodium Chloride 1,000 mls @ 100 mls/hr 05/24/21 06:00 05/24/21 08:33 D5/0.45ns IV 100 mls/hr DIRECT MIKE Administration Magnesium Hydroxide 30 ml 05/23/21 22:01 Magnesium Hydroxide (Mom) Oral Liqd Udc PO Q4H PRN Constipation Morphine Sulfate 2 mg 05/23/21 22:01 05/24/21 08:33 Morphine 2 Mg/1 Ml Inj IV 2 mg Q4H PRN Administration Pain, Moderate (4-6) Morphine Sulfate 4 mg 05/23/21 22:01 Morphine 4 Mg/1 Ml Inj IV Q4H PRN Pain , Severe (7-10) Sodium Chloride 10 ml 05/24/21 10:00 Sodium Chloride 0.9% 10 Ml Flush Syringe IV BID MIKE Sodium Chloride 10 ml 05/23/21 22:01 Sodium Chloride 0.9% 10 Ml Flush Syringe IV PRN PRN LINE FLUSH
[2021-05-24] MEDS: cefTRIAXone/NS 2 GM/100 ML 2 GM/100 ML BAG IV SCH (10:39)
[2021-05-24] MEDS: dexAMETHasone 4 MG/ML VIAL IV SCH (10:39)
[2021-05-24] MEDS: AZITHROMYCIN/NS 500 MG/250 ML 500 MG/250 ML BAG IV SCH (11:09)
--- NOTE | 2021-05-24 12:00 | Consultation ---
History of Present Illness - Reason for Consult Consult date: 05/24/21 acute renal failure - History of Present Illness History obtained from medical records 55-year-old -[place] male who was diagnosed with COVID-19 on May 11, 2021 presents to the emergency room today with complaints of shortness of breath and decreased oral intake over the past 10 to 12 days. Patient also has known history of CVA about 20 years ago and it is unknown whether patient had any residual deficits. Patient has not been able to communicate well and most of the history was gotten from the ER staff. Initial oxygen saturation according to EMS was about 70% and patient was placed on nonrebreather. He was eventually placed on oxygen by nasal cannula upon arrival in the emergency room with significant improvement in his oxygen saturation. Work-up in the emergency room reveals a D-dimer greater than 10,000, sodium 151 potassium of 5.1, BUN of 180) and creatinine of 4.3. Patient had a lactic acid of 2.3. WBC was 11.8. CT scan of the head shows no acute abnormality. Chest x-ray shows mild patchy multifocal airspace disease throughout the lungs. No pleural effusion. VQ scan done showed low probability for pulmonary embolism. Patient being admitted with pneumonia possibly secondary to COVID-19, hypoxia and encephalopathy. Past History Past Medical History: No medical history Past Surgical History: No surgical history Social history: smoking (Current daily smoker) Family history: no significant family history Medications and Allergies Allergies Allergy/AdvReac Type Severity Reaction Status Date / Time No Known Allergies Allergy Unverified 02/12/17 15:47 Active Meds: Active Medications Acetaminophen (Acetaminophen 650 Mg Rect Supp) 650 mg MT Q6H PRN PRN Reason: Pain MILD(1-3)/Fever >100.5/LUCAS Dexamethasone (Dexamethasone 4 Mg/Ml Vial) 6 mg IV Q24HR MIKE Last Admin: 05/24/21 10:39 Dose: 6 mg Documented by: Heparin Sodium (Porcine) (Heparin 5,000 Unit/1 Ml Vial) 5,000 unit SUB-Q Q8HR MIKE Last Admin: 05/24/21 06:19 Dose: 5,000 unit Documented by: Ceftriaxone Sodium (Rocephin/Ns 2 Gm/100 Ml) 2 gm in 100 mls @ 200 mls/hr IV Q24HR MIKE; Protocol Last Admin: 05/24/21 10:39 Dose: 200 mls/hr Documented by: Azithromycin (Zithromax/Ns) 500 mg in 250 mls @ 250 mls/hr IV Q24HR MIKE; Protocol Last Admin: 05/24/21 11:09 Dose: 250 mls/hr Documented by: Dextrose/Sodium Chloride (D5/0.45ns) 1,000 mls @ 100 mls/hr IV DIRECT MIKE Last Admin: 05/24/21 08:33 Dose: 100 mls/hr Documented by: Magnesium Hydroxide (Magnesium Hydroxide (Mom) Oral Liqd Udc) 30 ml PO Q4H PRN PRN Reason: Constipation Morphine Sulfate (Morphine 2 Mg/1 Ml Inj) 2 mg IV Q4H PRN PRN Reason: Pain, Moderate (4-6) Last Admin: 05/24/21 08:33 Dose: 2 mg Documented by: Morphine Sulfate (Morphine 4 Mg/1 Ml Inj) 4 mg IV Q4H PRN PRN Reason: Pain , Severe (7-10) Sodium Chloride (Sodium Chloride 0.9% 10 Ml Flush Syringe) 10 ml IV BID MIKE Last Admin: 05/24/21 10:39 Dose: 10 ml Documented by: Sodium Chloride (Sodium Chloride 0.9% 10 Ml Flush Syringe) 10 ml IV PRN PRN PRN Reason: LINE FLUSH Review of Systems ROS unobtainable: due to mental status Exam - Vital Signs Vital signs: Vital Signs Temp Pulse Resp BP Pulse Ox 97.9 F 132 H 24 156/92 99 05/23/21 18:36 05/23/21 18:36 05/23/21 18:36 05/23/21 18:36 05/23/21 18:36 - General Appearance General appearance: well-developed, well-nourished EENT: ATNC, other (mask in place) Respiratory: Other Heart: other (unable to examine - isolation stethoscope unavailable) Integumentary: warm and dry Musculoskeletal: Present: other (no edema) Results - Lab Results 05/23/21 18:48 05/24/21 18:12 Most recent lab results Calcium 9.5 mg/dL (8.4-10.2) 05/23/21 18:48 Assessment and Plan Impression: * Acute kidney injury secondary to ATN likely related to COVID 19 * Acute hypoxic respiratory failure secondary to COVID 19 PNA * Azotemia * Hyperkalemia * Metabolic acidosis Plan: * Renal prognosis is guarded; may require renal replacement therapy * Repeat BMP ordered * Medical management of electrolytes * Continue IVF for hydration * Management of COVID 19 PNA to primary team/ID * Dose medications for renal function * AM labs
[2021-05-24] MEDS ORDERED: TOCILIZUMAB 600 MG in SODIUM CHLORIDE 0.9% 100 ML IV ONE (12:53)
--- NOTE | 2021-05-24 12:54 | Consultation ---
History of Present Illness - Reason for Consult Consult date: 05/24/21 COVID-19, hypoxia Requesting physician: GIFTY DESHPANDE - History of Present Illness The patient is a 55-year-old male admitted to the hospital with COVID-19 and acute hypoxic respiratory failure requiring NRB. He tested positive as an outpatient on 05/11/2021. Labs revealed elevated D-dimer, acute kidney injury, hyperkalemia, hypernatremia, lactic acidosis. Afebrile. Procalcitonin 0.31, ferritin 2000, LDH 577, CRP 8.8. Chest x-ray showed patchy multifocal airspace disease. VQ scan with low probability for pulmonary embolism. Renal ultrasound unremarkable. Review of Systems: reviewed in the chart, unable to obtain, minimize risk of transmission Past History Past Medical History: No medical history Past Surgical History: No surgical history Social history: smoking (Current daily smoker) Family history: no significant family history Medications and Allergies Allergies Allergy/AdvReac Type Severity Reaction Status Date / Time No Known Allergies Allergy Unverified 02/12/17 15:47 Active Meds: Active Medications Acetaminophen (Acetaminophen 650 Mg Rect Supp) 650 mg AL Q6H PRN PRN Reason: Pain MILD(1-3)/Fever >100.5/LUCAS Dexamethasone (Dexamethasone 4 Mg/Ml Vial) 6 mg IV Q24HR MIKE Last Admin: 05/24/21 10:39 Dose: 6 mg Documented by: Heparin Sodium (Porcine) (Heparin 5,000 Unit/1 Ml Vial) 5,000 unit SUB-Q Q8HR MIKE Last Admin: 05/24/21 06:19 Dose: 5,000 unit Documented by: Ceftriaxone Sodium (Rocephin/Ns 2 Gm/100 Ml) 2 gm in 100 mls @ 200 mls/hr IV Q24HR MIKE; Protocol Last Admin: 05/24/21 10:39 Dose: 200 mls/hr Documented by: Azithromycin (Zithromax/Ns) 500 mg in 250 mls @ 250 mls/hr IV Q24HR MIKE; Protocol Last Admin: 05/24/21 11:09 Dose: 250 mls/hr Documented by: Dextrose/Sodium Chloride (D5/0.45ns) 1,000 mls @ 100 mls/hr IV DIRECT MIKE Last Admin: 05/24/21 08:33 Dose: 100 mls/hr Documented by: Magnesium Hydroxide (Magnesium Hydroxide (Mom) Oral Liqd Udc) 30 ml PO Q4H PRN PRN Reason: Constipation Morphine Sulfate (Morphine 2 Mg/1 Ml Inj) 2 mg IV Q4H PRN PRN Reason: Pain, Moderate (4-6) Last Admin: 05/24/21 08:33 Dose: 2 mg Documented by: Morphine Sulfate (Morphine 4 Mg/1 Ml Inj) 4 mg IV Q4H PRN PRN Reason: Pain , Severe (7-10) Sodium Chloride (Sodium Chloride 0.9% 10 Ml Flush Syringe) 10 ml IV BID MIKE Last Admin: 05/24/21 10:39 Dose: 10 ml Documented by: Sodium Chloride (Sodium Chloride 0.9% 10 Ml Flush Syringe) 10 ml IV PRN PRN PRN Reason: LINE FLUSH Physical Examination - Physical Exam Narrative exam: Physical Exam (reviewed in chart to minimize risk of transmission) Constitutional: deferred Head, Ears, Nose: deferred Eyes: deferred Neck: deferred Oral: deferred Cardiovascular: deferred Respiratory: deferred GI: deferred Musculoskeletal: deferred Skin: deferred Hem/Lymphatic: deferred Psych: deferred Neurological: deferred - Constitutional Vitals: Vital Signs Temp Pulse Resp BP Pulse Ox 97.9 F 124 H 33 H 129/80 100 05/23/21 18:36 05/24/21 06:01 05/24/21 06:01 05/24/21 06:01 05/24/21 08:29 Temperature -Last 24 Hours Temperature 97.9 F Results - Labs CBC & Chem 7: 05/23/21 18:48 05/23/21 18:48 Labs: Abnormal lab results 05/23/21 05/23/21 05/23/21 Range/Units 18:48 18:48 18:48 WBC 11.8 H (4.5-11.0) K/mm3 RBC 5.18 H (3.65-5.03) M/mm3 Seg Neuts % (Manual) 84.0 H (40.0-70.0) % Seg Neutrophils # Man 9.9 H (1.8-7.7) K/mm3 D-Dimer > 27949 H (0-234) ng/mlDDU VBG pH (7.320-7.420) Sodium (137-145) mmol/L Potassium (3.6-5.0) mmol/L Chloride (98-107) mmol/L Carbon Dioxide (22-30) mmol/L BUN (9-20) mg/dL Creatinine (0.8-1.3) mg/dL Glucose (75-100) mg/dL Lactic Acid 2.30 H* (0.7-2.0) mmol/L Ferritin (30.0-300.0) ng/mL Ammonia (25-60) umol/L Lactate Dehydrogenase (91-180) units/L C-Reactive Protein (0.00-1.30) mg/dL Total Protein (6.3-8.2) g/dL Albumin (3.9-5) g/dL 05/23/21 05/23/21 05/23/21 Range/Units 18:48 18:48 18:48 WBC (4.5-11.0) K/mm3 RBC (3.65-5.03) M/mm3 Seg Neuts % (Manual) (40.0-70.0) % Seg Neutrophils # Man (1.8-7.7) K/mm3 D-Dimer (0-234) ng/mlDDU VBG pH (7.320-7.420) Sodium 151 H (137-145) mmol/L Potassium 5.1 H (3.6-5.0) mmol/L Chloride 113.2 H (98-107) mmol/L Carbon Dioxide 17 L (22-30) mmol/L BUN 180 H (9-20) mg/dL Creatinine 4.3 H (0.8-1.3) mg/dL Glucose 114 H (75-100) mg/dL Lactic Acid (0.7-2.0) mmol/L Ferritin 2000.0 H (30.0-300.0) ng/mL Ammonia 22.0 L (25-60) umol/L Lactate Dehydrogenase 577 H (91-180) units/L C-Reactive Protein 8.80 H (0.00-1.30) mg/dL Total Protein 9.4 H (6.3-8.2) g/dL Albumin 3.0 L (3.9-5) g/dL 05/23/21 05/24/21 05/24/21 Range/Units 21:06 02:09 02:09 WBC (4.5-11.0) K/mm3 RBC (3.65-5.03) M/mm3 Seg Neuts % (Manual) (40.0-70.0) % Seg Neutrophils # Man (1.8-7.7) K/mm3 D-Dimer (0-234) ng/mlDDU VBG pH 7.254 L (7.320-7.420) Sodium (137-145) mmol/L Potassium (3.6-5.0) mmol/L Chloride (98-107) mmol/L Carbon Dioxide (22-30) mmol/L BUN (9-20) mg/dL Creatinine (0.8-1.3) mg/dL Glucose (75-100) mg/dL Lactic Acid 2.10 H* 2.30 H* (0.7-2.0) mmol/L Ferritin (30.0-300.0) ng/mL Ammonia (25-60) umol/L Lactate Dehydrogenase (91-180) units/L C-Reactive Protein (0.00-1.30) mg/dL Total Protein (6.3-8.2) g/dL Albumin (3.9-5) g/dL - Imaging and Cardiology Chest x-ray: report reviewed, image reviewed (patchy multifocal airspace disease) Assessment and Plan Cultures: SARS CoV2 PCR: Positive as outpatient. Pending here 05/23/2021 blood culture: In process A/P: 55/M with: #Bilateral pneumonia: Likely secondary to COVID-19, tested positive as outpatient. Severe disease. Inflammatory markers elevated. #Acute hypoxic respiratory failure: Requiring NRB #Acute renal failure: Nephrology on board Recs: -IV/PO Dexamethasone x 10 days -Not a candidate for remdesivir due to renal failure and out of window anyway -Based on severity of respiratory failure, CRP >7.5, candidate for Actemra, order placed (depending on availability) -Complete 5 days of empiric antibiotics, procalcitonin with mild elevation, however likely secondary to renal failure -prophylactic anticoagulation based on d-dimer per hospital protocol -trend d-dimer, CRP every 2-3 days Bony Weber MD, FACP [facility] ([facility] O: [phone] F: [phone]
[2021-05-24 14:04] LABS: Calcium 9.9 mg/dL (8.4-10.2)
--- NOTE | 2021-05-24 14:50 | Electrocardiograph Report ---
[facility] Test Date: 2021-05-23 Test Time: 19:36:29 Pat Name: AR SALVADOR Department: Room: [place] [address] Gender: M Box Packer: HOLLIS : 1965 Requested By: KEN GREER Order Number: [id number] Reading MD: Mati Reza Measurements Intervals [place]ile Rate: 122 P: 34 HI: 164 QRS: -25 QRSD: 84 T: 62 QT: 293 QTc: 418 Interpretive Statements Sinus tachycardia No previous ECG available for comparison Electronically Signed On 05-24-2021 14:50:21 EDT by Mati Reza
[2021-05-24] MEDS ORDERED: CALCIUM GLUCONATE 1,000 MG in SODIUM CHLORIDE 0.9% 100 ML IV ONE (17:00)
[2021-05-24] MEDS ORDERED: INSULIN REGULAR, HUMAN 100 UNITS/1 ML IV ONE (17:00)
[2021-05-24] MEDS ORDERED: DEXTROSE 50% IN WATER (25GM) 50 ML SYRINGE IV ONE (17:00)
[2021-05-24] MEDS ORDERED: SODIUM POLYSTYRENE 15 GM/60 ML ORAL LIQD PO ONE (21:00)
[2021-05-25] MEDS: HEPARIN 5,000 UNIT/1 ML VIAL SUB-Q SCH ×3 (06:27→21:43)
[2021-05-25] MEDS: MORPHINE 2 MG/1 ML INJ IV PRN (06:28)
--- NOTE | 2021-05-25 08:45 | Progress Note ---
Assessment and Plan Assessment and plan: #Acute hypoxic respiratory failure -O2 saturation 70% via EMS -Currently greater than 92% on nasal cannula -D-dimer greater than 10,000 -Chest x-ray showed patchy multifocal airspace disease bilaterally -VQ scan low probability for PE -We will continue antibiotics and steroids for now -will continue to monitor, if patient condition worsens, low threshold for Pulmonary/CC consult #Sepsis -improving -Blood cultures NGTD -Likely secondary to pneumonia -COVID-19 PCR negative #Lactic acidosis -Lactate 2.3 -> 1.70 -Resolved #Acute encephalopathy -CT head negative, ammonia 22 -Patient cooperative follows commands #ANGELES -Creatinine 4.3 -Likely prerenal secondary to volume depletion after several days of no oral intake -Renal ultrasound unremarkable -Nephrology consulted, recs appreciated -will avoid nephrotoxic agents #Hyperkalemia -K 6.9-5.4 after medical management -will continue to monitor #pneumonia -Continue azithromycin and Rocephin #COVID-19 infection -Diagnosed on 05/11 D-dimer greater than 10,000, ferritin 2000, LDH 577, CRP 8.8 -ID consulted, assistance appreciated -Continue steroids x10 days and cover vitamins #Hypernatremia -Continue D5 half-normal saline -Likely secondary to almost 2 weeks no oral intake Total Time Spent with Patient (Minutes): 20 minutes History Interval history: No events since admission. Patient stable on 5 L. Denies any discomfort. Hospitalist Physical - Physical exam Narrative exam: GENERAL: Thin male. Lying in bed in no acute distress. HEENT: Nasal cannula in place that 5 L/min CHEST/LUNGS: Coarse breath sounds bilaterally. 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 HEART/CARDIOVASCULAR: RRR. No murmur, rubs or gallops appreciated. ABDOMEN: +BS. NT/ND. SKIN: Poor skin turgor NEURO: Left lower extremity weakness. Follows all commands. EXTREMITIES: No cyanosis, clubbing or edema. PSYCH: Cooperative. - Constitutional Vitals: Temp Pulse Resp BP Pulse Ox 97.9 F 113 H 23 137/80 95 05/23/21 18:36 05/25/21 05:45 05/25/21 05:45 05/25/21 05:45 05/25/21 05:45 General appearance: Present: mild distress, well-nourished HEART Score - HEART Score Troponin: Troponin T < 0.010 ng/mL (0.00-0.029) 05/23/21 18:48 Results - Labs CBC & Chem 7: 05/25/21 11:33 05/25/21 11:33 Labs: Laboratory Last Values WBC 11.8 K/mm3 (4.5-11.0) H 05/23/21 18:48 RBC 5.18 M/mm3 (3.65-5.03) H 05/23/21 18:48 Hgb 14.4 gm/dl (11.8-15.2) 05/23/21 18:48 Hct 45.3 % (35.5-45.6) 05/23/21 18:48 MCV 88 fl (84-94) 05/23/21 18:48 MCH 28 pg (28-32) 05/23/21 18:48 MCHC 32 % (32-34) 05/23/21 18:48 RDW 14.8 % (13.2-15.2) 05/23/21 18:48 Plt Count 309 K/mm3 (140-440) 05/23/21 18:48 Add Manual Diff Complete 05/23/21 18:48 Total Counted 100 05/23/21 18:48 Seg Neuts % (Manual) 84.0 % (40.0-70.0) H 05/23/21 18:48 Band Neutrophils % 1.0 % 05/23/21 18:48 Lymphocytes % (Manual) 14.0 % (13.4-35.0) 05/23/21 18:48 Monocytes % (Manual) 1.0 % (0.0-7.3) 05/23/21 18:48 Nucleated RBC % Not Reportable 05/23/21 18:48 Seg Neutrophils # Man 9.9 K/mm3 (1.8-7.7) H 05/23/21 18:48 Band Neutrophils # 0.1 K/mm3 05/23/21 18:48 Lymphocytes # (Manual) 1.7 K/mm3 (1.2-5.4) 05/23/21 18:48 Abs React Lymphs (Man) 0.0 K/mm3 05/23/21 18:48 Monocytes # (Manual) 0.1 K/mm3 (0.0-0.8) 05/23/21 18:48 Eosinophils # (Manual) 0.0 K/mm3 (0.0-0.4) 05/23/21 18:48 Basophils # (Manual) 0.0 K/mm3 (0.0-0.1) 05/23/21 18:48 Metamyelocytes # 0.0 K/mm3 05/23/21 18:48 Myelocytes # 0.0 K/mm3 05/23/21 18:48 Promyelocytes # 0.0 K/mm3 05/23/21 18:48 Blast Cells # 0.0 K/mm3 05/23/21 18:48 WBC Morphology Not Reportable 05/23/21 18:48 Hypersegmented Neuts Not Reportable 05/23/21 18:48 Hyposegmented Neuts Not Reportable 05/23/21 18:48 Hypogranular Neuts Not Reportable 05/23/21 18:48 Smudge Cells Not Reportable 05/23/21 18:48 Toxic Granulation Not Reportable 05/23/21 18:48 Toxic Vacuolation Not Reportable 05/23/21 18:48 Dohle Bodies Not Reportable 05/23/21 18:48 Pelger-Huet Anomaly Not Reportable 05/23/21 18:48 Kaci Rods Not Reportable 05/23/21 18:48 Platelet Estimate Consistent w auto 05/23/21 18:48 Clumped Platelets Not Reportable 05/23/21 18:48 Plt Clumps, EDTA Not Reportable 05/23/21 18:48 Large Platelets Not Reportable 05/23/21 18:48 Giant Platelets Not Reportable 05/23/21 18:48 Platelet Satelliting Not Reportable 05/23/21 18:48 Plt Morphology Comment Not Reportable 05/23/21 18:48 RBC Morphology Not Reportable 05/23/21 18:48 Dimorphic RBCs Not Reportable 05/23/21 18:48 Polychromasia Not Reportable 05/23/21 18:48 Hypochromasia Not Reportable 05/23/21 18:48 Poikilocytosis Not Reportable 05/23/21 18:48 Anisocytosis 1+ 05/23/21 18:48 Microcytosis Not Reportable 05/23/21 18:48 Macrocytosis Not Reportable 05/23/21 18:48 Spherocytes Not Reportable 05/23/21 18:48 Pappenheimer Bodies Not Reportable 05/23/21 18:48 Sickle Cells Not Reportable 05/23/21 18:48 Target Cells Not Reportable 05/23/21 18:48 Tear Drop Cells Not Reportable 05/23/21 18:48 Ovalocytes Not Reportable 05/23/21 18:48 Helmet Cells Not Reportable 05/23/21 18:48 Weems-Neal Bodies Not Reportable 05/23/21 18:48 [place] Rings Not Reportable 05/23/21 18:48 Leslie Cells Not Reportable 05/23/21 18:48 Bite Cells Not Reportable 05/23/21 18:48 Crenated Cell Not Reportable 05/23/21 18:48 Elliptocytes Not Reportable 05/23/21 18:48 Acanthocytes (Spur) Not Reportable 05/23/21 18:48 Rouleaux Not Reportable 05/23/21 18:48 Hemoglobin C Crystals Not Reportable 05/23/21 18:48 Schistocytes Not Reportable 05/23/21 18:48 Malaria parasites Not Reportable 05/23/21 18:48 Dick Bodies Not Reportable 05/23/21 18:48 Hem Pathologist Commnt No 05/23/21 18:48 D-Dimer > 19038 ng/mlDDU (0-234) H 05/23/21 18:48 VBG pH 7.254 (7.320-7.420) L 05/24/21 02:09 Sodium 155 mmol/L (137-145) H 05/24/21 13:11 Potassium 5.7 mmol/L (3.6-5.0) H 05/24/21 18:12 Chloride 121.9 mmol/L (98-107) H 05/24/21 13:11 Carbon Dioxide 20 mmol/L (22-30) L 05/24/21 13:11 Anion Gap 20 mmol/L 05/24/21 13:11 BUN 139 mg/dL (9-20) H 05/24/21 13:11 Creatinine 2.7 mg/dL (0.8-1.3) H 05/24/21 13:11 Estimated GFR 30 ml/min 05/24/21 13:11 BUN/Creatinine Ratio 51 % 05/24/21 13:11 Glucose 139 mg/dL (75-100) H 05/24/21 13:11 POC Glucose 153 mg/dL (70-105) H 05/24/21 17:34 Lactic Acid 1.70 mmol/L (0.7-2.0) 05/24/21 09:39 Calcium 9.9 mg/dL (8.4-10.2) 05/24/21 13:11 Ferritin 2000.0 ng/mL (30.0-300.0) H 05/23/21 18:48 Total Bilirubin 0.90 mg/dL (0.1-1.2) 05/23/21 18:48 AST 27 units/L (5-40) 05/23/21 18:48 ALT 7 units/L (7-56) 05/23/21 18:48 Alkaline Phosphatase 69 units/L (35-129) 05/23/21 18:48 Ammonia 22.0 umol/L (25-60) L 05/23/21 18:48 Lactate Dehydrogenase 577 units/L (91-180) H 05/23/21 18:48 Troponin T < 0.010 ng/mL (0.00-0.029) 05/23/21 18:48 C-Reactive Protein 8.80 mg/dL (0.00-1.30) H 05/23/21 18:48 Total Protein 9.4 g/dL (6.3-8.2) H 05/23/21 18:48 Albumin 3.0 g/dL (3.9-5) L 05/23/21 18:48 Albumin/Globulin Ratio 0.5 % 05/23/21 18:48 Procalcitonin 0.31 ng/mL (<0.15) 05/23/21 18:48 TSH 1.150 mlU/mL (0.270-4.200) 05/23/21 18:48 Plasma/Serum Alcohol < 0.01 % (0-0.07) 05/23/21 18:48 Coronavirus (PCR) Negative (Negative) 05/24/21 09:10 Microbiology: Microbiology 05/23/21 19:42 Peripheral/Venous Blood Culture - Preliminary NO GROWTH AFTER 24 HOURS 05/23/21 19:50 Peripheral/Venous Blood Culture - Preliminary NO GROWTH AFTER 24 HOURS Active Medications - Current Medications Current Medications: Generic Name Dose Route Start Last Admin Trade Name Freq PRN Reason Stop Dose Admin Acetaminophen 650 mg 05/23/21 22:01 Acetaminophen 650 Mg Rect Supp ID Q6H PRN Pain MILD(1-3)/Fever >100.5/LUCAS Dexamethasone 6 mg 05/24/21 10:00 05/24/21 10:39 Dexamethasone 4 Mg/Ml Vial IV 6 mg Q24HR MIKE Administration Heparin Sodium (Porcine) 5,000 unit 05/24/21 06:00 05/25/21 06:27 Heparin 5,000 Unit/1 Ml Vial SUB-Q 5,000 unit Q8HR MIKE Administration Ceftriaxone Sodium 2 gm in 100 mls @ 200 mls/hr 05/24/21 10:00 05/24/21 10:39 Rocephin/Ns 2 Gm/100 Ml IV 200 mls/hr Q24HR MIKE Administration Protocol Azithromycin 500 mg in 250 mls @ 250 mls/hr 05/24/21 10:00 05/24/21 11:09 Zithromax/Ns IV 250 mls/hr Q24HR MIKE Administration Protocol Dextrose/Sodium Chloride 1,000 mls @ 100 mls/hr 05/24/21 06:00 05/24/21 08:33 D5/0.45ns IV 100 mls/hr DIRECT MIKE Administration TOCILIZUMAB 600 mg/ Sodium 130 mls @ 120 mls/hr 05/24/21 12:53 Chloride IV 05/24/21 13:57 ONCE ONE Magnesium Hydroxide 30 ml 05/23/21 22:01 Magnesium Hydroxide (Mom) Oral Liqd Udc PO Q4H PRN Constipation Morphine Sulfate 2 mg 05/23/21 22:01 05/25/21 06:28 Morphine 2 Mg/1 Ml Inj IV 2 mg Q4H PRN Administration Pain, Moderate (4-6) Morphine Sulfate 4 mg 05/23/21 22:01 Morphine 4 Mg/1 Ml Inj IV Q4H PRN Pain , Severe (7-10) Sodium Chloride 10 ml 05/24/21 10:00 05/24/21 22:22 Sodium Chloride 0.9% 10 Ml Flush Syringe IV 10 ml BID MIKE Administration Sodium Chloride 10 ml 05/23/21 22:01 Sodium Chloride 0.9% 10 Ml Flush Syringe IV PRN PRN LINE FLUSH
--- NOTE | 2021-05-25 09:37 | Progress Note ---
Assessment and Plan Cultures: SARS CoV2 PCR: Positive as outpatient. Negative here 05/23/2021 blood culture: no growth A/P: 55/M with: #Bilateral pneumonia: ? secondary to COVID-19, tested positive as outpatient, bu t negative here. Severe disease. Inflammatory markers elevated. #Acute hypoxic respiratory failure: Requiring NRB, now weaned to 7L [place]. #Acute renal failure: Nephrology on board. Recs: -COVID-19 PCR came back negative, Actemra ordered discontinued -Repeat COVID-19 PCR ordered -Continue IV/PO Dexamethasone x 10 days -Not a candidate for remdesivir due to renal failure and out of window anyway -Complete 5 days of empiric antibiotics -prophylactic anticoagulation based on d-dimer per hospital protocol -trend d-dimer, CRP every 2-3 days Bony Weber MD, FACP [facility] O: [phone] F: [phone] Subjective Date of service: 05/25/21 Interval history: Afebrile. COVID-19 PCR came back negative here. Oxygen weaned to 7 L [place]. Objective - Exam Narrative Exam: Physical Exam (reviewed in chart to minimize risk of transmission) Constitutional: deferred Head, Ears, Nose: deferred Eyes: deferred Neck: deferred Oral: deferred Cardiovascular: deferred Respiratory: deferred GI: deferred Musculoskeletal: deferred Skin: deferred Hem/Lymphatic: deferred Psych: deferred Neurological: deferred - Constitutional Vitals: Vital Signs Temp Pulse Resp BP Pulse Ox 97.9 F 113 H 23 137/80 95 05/23/21 18:36 05/25/21 05:45 05/25/21 05:45 05/25/21 05:45 05/25/21 05:45 - Labs CBC & Chem 7: 05/23/21 18:48 05/24/21 18:12 Labs: Abnormal lab results 05/24/21 05/24/21 05/24/21 Range/Units 13:11 17:34 18:12 Sodium 155 H (137-145) mmol/L Potassium 6.9 H* D 5.7 H (3.6-5.0) mmol/L Chloride 121.9 H (98-107) mmol/L Carbon Dioxide 20 L (22-30) mmol/L BUN 139 H (9-20) mg/dL Creatinine 2.7 H (0.8-1.3) mg/dL Glucose 139 H (75-100) mg/dL POC Glucose 153 H (70-105) mg/dL
[2021-05-25] MEDS: AZITHROMYCIN/NS 500 MG/250 ML 500 MG/250 ML BAG IV SCH (09:56)
[2021-05-25] MEDS: cefTRIAXone/NS 2 GM/100 ML 2 GM/100 ML BAG IV SCH (09:56)
[2021-05-25] MEDS: dexAMETHasone 4 MG/ML VIAL IV SCH (09:56)
[2021-05-25 12:18] LABS: Calcium 9.7 mg/dL (8.4-10.2)
[2021-05-25 12:38] LABS: Hematocrit 44.6 % (35.5-45.6); Hemoglobin 14.1 gm/dl (11.8-15.2); Mean Corpuscular HGB Conc 32 % (32-34); Mean Corpuscular Volume 88 fl (84-94); Platelet Count 255 K/mm3 (140-440); Red Blood Count 5.06 M/mm3 (3.65-5.03); Red Cell Distribution Width 15.2 % (13.2-15.2)
--- NOTE | 2021-05-25 16:54 | Progress Note ---
Assessment and Plan Impression: * Acute kidney injury secondary to ATN likely related to COVID 19 * Acute hypoxic respiratory failure secondary to COVID 19 PNA * Azotemia * Hyperkalemia * Metabolic acidosis * Hypernatremia Plan: * Renal function improved - SCr trending down * Hypernatremia worsened - change D5 1/2NS to D5W 100ml/hour * Medical management of electrolytes * Patient is s/p kayexelate 30g yesterday; repeat dose today * Management of COVID 19 PNA to primary team/ID * Dose medications for renal function * AM labs * Renal diet Subjective Date of service: 05/25/21 Interval history: Chart, labs, vitals reviewed. Objective - Exam Narrative Exam: In effort to reduce transmission of COVID 19, physical exam deferred. - Vital Signs Vital signs: Vital Signs - 12hr 05/25/21 05/25/21 05/25/21 05:01 05:15 05:31 Pulse Rate 115 H 115 H 108 H Respiratory 35 H 22 12 Rate Blood Pressure 131/82 135/84 134/82 O2 Sat by Pulse 81 L 87 Oximetry 05/25/21 05/25/21 05/25/21 05:45 08:00 10:00 Pulse Rate 113 H 85 Respiratory 23 30 H 34 H Rate Blood Pressure 137/80 O2 Sat by Pulse 95 100 100 Oximetry 05/25/21 05/25/21 12:00 14:00 Pulse Rate Respiratory 32 H 30 H Rate Blood Pressure O2 Sat by Pulse 100 100 Oximetry - Lab 05/25/21 11:33 05/25/21 11:33 Most recent lab results Calcium 9.7 mg/dL (8.4-10.2) 05/25/21 11:33 Medications & Allergies - Medications Allergies/Adverse Reactions: Allergies No Known Allergies Allergy (Unverified 02/12/17 15:47) Active Medications: Generic Name Dose Route Start Last Admin Trade Name Freq PRN Reason Stop Dose Admin Acetaminophen 650 mg 05/23/21 22:01 Acetaminophen 650 Mg Rect Supp FL Q6H PRN Pain MILD(1-3)/Fever >100.5/LUCAS Dexamethasone 6 mg 05/24/21 10:00 05/25/21 09:56 Dexamethasone 4 Mg/Ml Vial IV 6 mg Q24HR MIKE Administration Heparin Sodium (Porcine) 5,000 unit 05/24/21 06:00 05/25/21 13:31 Heparin 5,000 Unit/1 Ml Vial SUB-Q 5,000 unit Q8HR MIKE Administration Ceftriaxone Sodium 2 gm in 100 mls @ 200 mls/hr 05/24/21 10:00 05/25/21 09:56 Rocephin/Ns 2 Gm/100 Ml IV 05/27/21 10:29 200 mls/hr Q24HR MIKE Administration Protocol Azithromycin 500 mg in 250 mls @ 250 mls/hr 05/24/21 10:00 05/25/21 09:56 Zithromax/Ns IV 05/27/21 10:59 250 mls/hr Q24HR MIKE Administration Protocol Dextrose/Sodium Chloride 1,000 mls @ 100 mls/hr 05/24/21 06:00 05/24/21 08:33 D5/0.45ns IV 100 mls/hr DIRECT MIKE Administration Magnesium Hydroxide 30 ml 05/23/21 22:01 Magnesium Hydroxide (Mom) Oral Liqd Udc PO Q4H PRN Constipation Morphine Sulfate 2 mg 05/23/21 22:01 05/25/21 06:28 Morphine 2 Mg/1 Ml Inj IV 2 mg Q4H PRN Administration Pain, Moderate (4-6) Morphine Sulfate 4 mg 05/23/21 22:01 Morphine 4 Mg/1 Ml Inj IV Q4H PRN Pain , Severe (7-10) Sodium Chloride 10 ml 05/24/21 10:00 05/25/21 09:57 Sodium Chloride 0.9% 10 Ml Flush Syringe IV 10 ml BID MIKE Administration Sodium Chloride 10 ml 05/23/21 22:01 Sodium Chloride 0.9% 10 Ml Flush Syringe IV PRN PRN LINE FLUSH
[2021-05-25] MEDS ORDERED: SODIUM POLYSTYRENE 15 GM/60 ML ORAL LIQD PO ONE (16:57)
[2021-05-25] MEDS ORDERED: DEXTROSE 5% IN WATER 1,000 ML IV SCH (17:00)
[2021-05-26 04:14] LABS: Hematocrit 48.5 % (35.5-45.6); Hemoglobin 15.3 gm/dl (11.8-15.2); Mean Corpuscular HGB Conc 32 % (32-34); Mean Corpuscular Volume 89 fl (84-94); Platelet Count 273 K/mm3 (140-440); Red Blood Count 5.43 M/mm3 (3.65-5.03); Red Cell Distribution Width 15.4 % (13.2-15.2)
[2021-05-26 05:09] LABS: C-Reactive Protein 7.9 mg/dL (0.00-1.30)
[2021-05-26] MEDS: ACETAMINOPHEN 650 MG RECT SUPP PR PRN (05:18)
[2021-05-26] MEDS ORDERED: D5W/0.45% NACL 1,000 ML IV SCH ×2 (06:00→10:00)
[2021-05-26] MEDS: HEPARIN 5,000 UNIT/1 ML VIAL SUB-Q SCH ×3 (06:10→22:53)
--- NOTE | 2021-05-26 07:47 | Progress Note ---
Assessment and Plan Assessment and plan: #Acute hypoxic respiratory failure -Currently greater than 92% on nasal cannula -D-dimer greater than 10,000 -> 6229 -VQ scan low probability for PE -continue antibiotics and steroids for now -will continue to monitor, if patient condition worsens, low threshold for Pulmonary/CC consult #Sepsis -improving -Blood cultures NGTD -Likely secondary to pneumonia -repeat COVID-19 PCR negative #Lactic acidosis -Lactate 2.3 -> 1.70 -Resolved #Acute encephalopathy -Resolved -CT head negative, ammonia 22 -Patient cooperative follows commands #ANGELES -Creatinine 1.8 today -Likely prerenal secondary to volume depletion after several days of no oral intake -Renal ultrasound unremarkable -Nephrology consulted, recs appreciated -will avoid nephrotoxic agents #Hyperkalemia -K 5.5 today -will continue to monitor #pneumonia -Continue azithromycin and Rocephin #COVID-19 infection -Diagnosed on 05/11 -D-dimer greater than 10,000, ferritin 2000, LDH 577, CRP 8.8 -ID consulted, assistance appreciated -Continue steroids x10 days and vitamins #Hypernatremia -continue D5 half-normal saline -Likely secondary to almost 2 weeks no oral intake Total Time Spent with Patient (Minutes): 30 minutes History Interval history: No events since admission. Patient currently on 3 L. Expresses wishes to go home. Hospitalist Physical - Physical exam Narrative exam: GENERAL: Thin male. Lying in bed in no acute distress. HEENT: Nasal cannula in place, 3 L/min CHEST/LUNGS: Coarse breath sounds bilaterally. No use of assessory muscles of breathing. HEART/CARDIOVASCULAR: Tachycardic. No murmur, rubs or gallops appreciated. ABDOMEN: +BS. NT/ND. NEURO: Left lower extremity weakness. Follows all commands. EXTREMITIES: No cyanosis, clubbing or edema. PSYCH: Cooperative. - Constitutional Vitals: Temp Pulse Resp BP Pulse Ox 98.0 F 134 H 28 H 123/86 95 05/26/21 07:08 05/26/21 07:01 05/26/21 07:01 05/26/21 07:01 05/26/21 07:01 General appearance: Present: mild distress, well-nourished - Allied Health Allied health notes reviewed: nursing HEART Score - HEART Score Troponin: Troponin T < 0.010 ng/mL (0.00-0.029) 05/23/21 18:48 Results - Labs CBC & Chem 7: 05/26/21 03:15 05/26/21 03:15 Labs: Laboratory Last Values WBC 13.1 K/mm3 (4.5-11.0) H 05/26/21 03:15 RBC 5.43 M/mm3 (3.65-5.03) H 05/26/21 03:15 Hgb 15.3 gm/dl (11.8-15.2) H 05/26/21 03:15 Hct 48.5 % (35.5-45.6) H 05/26/21 03:15 MCV 89 fl (84-94) 05/26/21 03:15 MCH 28 pg (28-32) 05/26/21 03:15 MCHC 32 % (32-34) 05/26/21 03:15 RDW 15.4 % (13.2-15.2) H 05/26/21 03:15 Plt Count 273 K/mm3 (140-440) 05/26/21 03:15 Add Manual Diff Complete 05/23/21 18:48 Total Counted 100 05/23/21 18:48 Seg Neuts % (Manual) 84.0 % (40.0-70.0) H 05/23/21 18:48 Band Neutrophils % 1.0 % 05/23/21 18:48 Lymphocytes % (Manual) 14.0 % (13.4-35.0) 05/23/21 18:48 Monocytes % (Manual) 1.0 % (0.0-7.3) 05/23/21 18:48 Nucleated RBC % Not Reportable 05/23/21 18:48 Seg Neutrophils # Man 9.9 K/mm3 (1.8-7.7) H 05/23/21 18:48 Band Neutrophils # 0.1 K/mm3 05/23/21 18:48 Lymphocytes # (Manual) 1.7 K/mm3 (1.2-5.4) 05/23/21 18:48 Abs React Lymphs (Man) 0.0 K/mm3 05/23/21 18:48 Monocytes # (Manual) 0.1 K/mm3 (0.0-0.8) 05/23/21 18:48 Eosinophils # (Manual) 0.0 K/mm3 (0.0-0.4) 05/23/21 18:48 Basophils # (Manual) 0.0 K/mm3 (0.0-0.1) 05/23/21 18:48 Metamyelocytes # 0.0 K/mm3 05/23/21 18:48 Myelocytes # 0.0 K/mm3 05/23/21 18:48 Promyelocytes # 0.0 K/mm3 05/23/21 18:48 Blast Cells # 0.0 K/mm3 05/23/21 18:48 WBC Morphology Not Reportable 05/23/21 18:48 Hypersegmented Neuts Not Reportable 05/23/21 18:48 Hyposegmented Neuts Not Reportable 05/23/21 18:48 Hypogranular Neuts Not Reportable 05/23/21 18:48 Smudge Cells Not Reportable 05/23/21 18:48 Toxic Granulation Not Reportable 05/23/21 18:48 Toxic Vacuolation Not Reportable 05/23/21 18:48 Dohle Bodies Not Reportable 05/23/21 18:48 Pelger-Huet Anomaly Not Reportable 05/23/21 18:48 Kaci Rods Not Reportable 05/23/21 18:48 Platelet Estimate Consistent w auto 05/23/21 18:48 Clumped Platelets Not Reportable 05/23/21 18:48 Plt Clumps, EDTA Not Reportable 05/23/21 18:48 Large Platelets Not Reportable 05/23/21 18:48 Giant Platelets Not Reportable 05/23/21 18:48 Platelet Satelliting Not Reportable 05/23/21 18:48 Plt Morphology Comment Not Reportable 05/23/21 18:48 RBC Morphology Not Reportable 05/23/21 18:48 Dimorphic RBCs Not Reportable 05/23/21 18:48 Polychromasia Not Reportable 05/23/21 18:48 Hypochromasia Not Reportable 05/23/21 18:48 Poikilocytosis Not Reportable 05/23/21 18:48 Anisocytosis 1+ 05/23/21 18:48 Microcytosis Not Reportable 05/23/21 18:48 Macrocytosis Not Reportable 05/23/21 18:48 Spherocytes Not Reportable 05/23/21 18:48 Pappenheimer Bodies Not Reportable 05/23/21 18:48 Sickle Cells Not Reportable 05/23/21 18:48 Target Cells Not Reportable 05/23/21 18:48 Tear Drop Cells Not Reportable 05/23/21 18:48 Ovalocytes Not Reportable 05/23/21 18:48 Helmet Cells Not Reportable 05/23/21 18:48 [place] Bodies Not Reportable 05/23/21 18:48 [place] Rings Not Reportable 05/23/21 18:48 [place] Cells Not Reportable 05/23/21 18:48 Bite Cells Not Reportable 05/23/21 18:48 Crenated Cell Not Reportable 05/23/21 18:48 Elliptocytes Not Reportable 05/23/21 18:48 Acanthocytes (Spur) Not Reportable 05/23/21 18:48 Rouleaux Not Reportable 05/23/21 18:48 Hemoglobin C Crystals Not Reportable 05/23/21 18:48 Schistocytes Not Reportable 05/23/21 18:48 Malaria parasites Not Reportable 05/23/21 18:48 Dick Bodies Not Reportable 05/23/21 18:48 Hem Pathologist Commnt No 05/23/21 18:48 D-Dimer 6229.14 ng/mlDDU (0-234) H 05/26/21 03:15 VBG pH 7.254 (7.320-7.420) L 05/24/21 02:09 Sodium 166 mmol/L (137-145) H* 05/26/21 03:15 Potassium 5.5 mmol/L (3.6-5.0) H 05/26/21 03:15 Chloride 129.2 mmol/L (98-107) H 05/26/21 03:15 Carbon Dioxide 23 mmol/L (22-30) 05/26/21 03:15 Anion Gap 19 mmol/L 05/26/21 03:15 BUN 102 mg/dL (9-20) H 05/26/21 03:15 Creatinine 1.8 mg/dL (0.8-1.3) H 05/26/21 03:15 Estimated GFR 48 ml/min 05/26/21 03:15 BUN/Creatinine Ratio 57 % 05/26/21 03:15 Glucose 113 mg/dL (75-100) H 05/26/21 03:15 POC Glucose 153 mg/dL (70-105) H 05/24/21 17:34 Lactic Acid 1.70 mmol/L (0.7-2.0) 05/24/21 09:39 Calcium 10.0 mg/dL (8.4-10.2) 05/26/21 03:15 Ferritin 2991.0 ng/mL (30.0-300.0) H 05/26/21 03:15 Total Bilirubin 0.90 mg/dL (0.1-1.2) 05/23/21 18:48 AST 27 units/L (5-40) 05/23/21 18:48 ALT 7 units/L (7-56) 05/23/21 18:48 Alkaline Phosphatase 69 units/L (35-129) 05/23/21 18:48 Ammonia 22.0 umol/L (25-60) L 05/23/21 18:48 Lactate Dehydrogenase 711 units/L (91-180) H 05/26/21 03:15 Troponin T < 0.010 ng/mL (0.00-0.029) 05/23/21 18:48 C-Reactive Protein 7.90 mg/dL (0.00-1.30) H 05/26/21 03:15 Total Protein 9.4 g/dL (6.3-8.2) H 05/23/21 18:48 Albumin 3.0 g/dL (3.9-5) L 05/23/21 18:48 Albumin/Globulin Ratio 0.5 % 05/23/21 18:48 Procalcitonin 0.31 ng/mL (<0.15) 05/23/21 18:48 TSH 1.150 mlU/mL (0.270-4.200) 05/23/21 18:48 Plasma/Serum Alcohol < 0.01 % (0-0.07) 05/23/21 18:48 Coronavirus (PCR) Negative (Negative) 05/24/21 09:10 Microbiology: Microbiology 05/23/21 19:42 Peripheral/Venous Blood Culture - Preliminary NO GROWTH AFTER 48 HOURS 05/23/21 19:50 Peripheral/Venous Blood Culture - Preliminary NO GROWTH AFTER 48 HOURS Active Medications - Current Medications Current Medications: Generic Name Dose Route Start Last Admin Trade Name Freq PRN Reason Stop Dose Admin Acetaminophen 650 mg 05/23/21 22:01 05/26/21 05:18 Acetaminophen 650 Mg Rect Supp AR 650 mg Q6H PRN Administration Pain MILD(1-3)/Fever >100.5/LUCAS Dexamethasone 6 mg 05/24/21 10:00 05/25/21 09:56 Dexamethasone 4 Mg/Ml Vial IV 6 mg Q24HR MIKE Administration Heparin Sodium (Porcine) 5,000 unit 05/24/21 06:00 05/26/21 06:10 Heparin 5,000 Unit/1 Ml Vial SUB-Q 5,000 unit Q8HR MIKE Administration Ceftriaxone Sodium 2 gm in 100 mls @ 200 mls/hr 05/24/21 10:00 05/25/21 09:56 Rocephin/Ns 2 Gm/100 Ml IV 05/27/21 10:29 200 mls/hr Q24HR MIKE Administration Protocol Azithromycin 500 mg in 250 mls @ 250 mls/hr 05/24/21 10:00 05/25/21 09:56 Zithromax/Ns IV 05/27/21 10:59 250 mls/hr Q24HR MIKE Administration Protocol Dextrose 1,000 mls @ 100 mls/hr 05/25/21 17:00 D5w IV DIRECT MIKE Dextrose/Sodium Chloride 1,000 mls @ 100 mls/hr 05/26/21 06:00 D5/0.45ns IV DIRECT MIKE Magnesium Hydroxide 30 ml 05/23/21 22:01 Magnesium Hydroxide (Mom) Oral Liqd Udc PO Q4H PRN Constipation Morphine Sulfate 2 mg 05/23/21 22:01 05/25/21 06:28 Morphine 2 Mg/1 Ml Inj IV 2 mg Q4H PRN Administration Pain, Moderate (4-6) Morphine Sulfate 4 mg 05/23/21 22:01 Morphine 4 Mg/1 Ml Inj IV Q4H PRN Pain , Severe (7-10) Sodium Chloride 10 ml 05/24/21 10:00 05/25/21 21:43 Sodium Chloride 0.9% 10 Ml Flush Syringe IV 10 ml BID MIKE Administration Sodium Chloride 10 ml 05/23/21 22:01 Sodium Chloride 0.9% 10 Ml Flush Syringe IV PRN PRN LINE FLUSH Nutrition/Malnutrition Assess - Dietary Evaluation Nutrition/Malnutrition Findings: Nutrition Notes Start: 05/25/21 09:33 Freq: Status: Active Protocol: Document 05/25/21 09:33 (Rec: 05/25/21 09:38 [id number]) Nutrition Notes Need for Assessment generated from: MD Order Initial or Follow up Brief Note Current Diagnosis Acute Kidney Injury Other Pertinent Diagnosis pneu, COVID PUI, encephalopathy Current Diet Renal Labs/Tests Na 155 K 5.7 BUN 1399 Cr 2.7 Pertinent Medications Reviewed Height 5 ft 11 in Weight 77.111 kg [place] Body Weight (kg) 78.18 BMI 23.7 Weight Status Appropriate Subjective/Other Information MD consult for diet education. Pt on hold in ED. Pt with descreased intakes for 10-12 days [employer]. 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 No Is Patient Ambulatory and/or Out of Bed No REE-([facility]-confined to bed) 1964.136 Calculation Used for Recommendations [facility] Additional Notes Protein: (>1.2g/kg) >93g Fluid: 1 ml/kcal or per MD Nutrition Intervention Change Diet Order: continue Add Supplement/Snack (indicate name/kcal Nepro BID /protein ) Provides kCal: 850 Provides Protein (gm) 38 Goal #1 Meet at least 75% of protein and kcal needs via PO and ONS intakes Anticipated Discharge Needs: Renal Follow-Up By: 05/28/21 Additional Comments F/u: room placement and intakes
[2021-05-26] MEDS ORDERED: SODIUM POLYSTYRENE 15 GM/60 ML ORAL LIQD PO SCH (10:00)
[2021-05-26] MEDS: cefTRIAXone/NS 2 GM/100 ML 2 GM/100 ML BAG IV SCH (10:46)
[2021-05-26] MEDS: dexAMETHasone 4 MG/ML VIAL IV SCH (10:46)
[2021-05-26] MEDS: AZITHROMYCIN/NS 500 MG/250 ML 500 MG/250 ML BAG IV SCH (10:46)
--- NOTE | 2021-05-26 11:35 | Electrocardiograph Report ---
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
--- NOTE | 2021-05-26 14:50 | Progress Note ---
Assessment and Plan Cultures: SARS CoV2 PCR: Positive as outpatient. Negative here 05/23/2021 blood culture: no growth A/P: 55/M with: #Bilateral pneumonia: ? secondary to COVID-19, tested positive as outpatient, bu t negative here. Severe disease. Inflammatory markers elevated. #Acute hypoxic respiratory failure: Now on 4 L. #Acute renal failure: Nephrology on board. #Hypernatremia: Per primary team. Recs: -F/u Repeat COVID-19 PCR ordered -Continue IV/PO Dexamethasone x 10 days -Not a candidate for remdesivir due to renal failure and out of window anyway -Complete 5 days of empiric antibiotics -prophylactic anticoagulation based on d-dimer per hospital protocol -trend d-dimer, CRP every 2-3 days Klaudia Somers MD [facility] ([facility]) Office [phone] Subjective Date of service: 05/26/21 Principal diagnosis: COVID19 Interval history: Patient remains on 4 L. No fever. NO Cough. Sats>91. Objective - Exam Narrative Exam: General appearance: Alert in NAD pleasant Eyes: anicteric sclerae, moist conjunctivae; no lid-lag; PERRLA HENT: Normocephalic, Atraumatic; normal external ears, nares open, oropharynx clear with moist mucous membranes and no oral thrush Neck: supple, tracheal midline, no JVD Lungs:coarse BS CV: RRR no murmur Abdomen: Soft, non-tender; no masses or hepatosplenomegaly Extremities: no edema, no cyanosis Skin: No rash. Psych: no agitated Neuro: alert and oriented x 3. Moving all extermities - Constitutional Vitals: Vital Signs Temp Pulse Resp BP Pulse Ox 98.8 F 126 H 34 H 117/77 99 05/26/21 10:50 05/26/21 11:01 05/26/21 11:01 05/26/21 11:01 05/26/21 11:01 Temperature -Last 24 Hours Temperature 98.8 F Temperature 98.0 F - Labs CBC & Chem 7: 05/26/21 03:15 05/26/21 03:15 Labs: Abnormal lab results 05/26/21 05/26/21 05/26/21 Range/Units 03:15 03:15 03:15 WBC 13.1 H (4.5-11.0) K/mm3 RBC 5.43 H (3.65-5.03) M/mm3 Hgb 15.3 H (11.8-15.2) gm/dl Hct 48.5 H (35.5-45.6) % RDW 15.4 H (13.2-15.2) % D-Dimer 6229.14 H (0-234) ng/mlDDU Sodium 166 H* (137-145) mmol/L Potassium 5.5 H (3.6-5.0) mmol/L Chloride 129.2 H (98-107) mmol/L BUN 102 H (9-20) mg/dL Creatinine 1.8 H (0.8-1.3) mg/dL Glucose 113 H (75-100) mg/dL Ferritin (30.0-300.0) ng/mL Lactate Dehydrogenase 711 H (91-180) units/L C-Reactive Protein 7.90 H (0.00-1.30) mg/dL 05/26/21 Range/Units 03:15 WBC (4.5-11.0) K/mm3 RBC (3.65-5.03) M/mm3 Hgb (11.8-15.2) gm/dl Hct (35.5-45.6) % RDW (13.2-15.2) % D-Dimer (0-234) ng/mlDDU Sodium (137-145) mmol/L Potassium (3.6-5.0) mmol/L Chloride (98-107) mmol/L BUN (9-20) mg/dL Creatinine (0.8-1.3) mg/dL Glucose (75-100) mg/dL Ferritin 2991.0 H (30.0-300.0) ng/mL Lactate Dehydrogenase (91-180) units/L C-Reactive Protein (0.00-1.30) mg/dL
--- NOTE | 2021-05-26 18:35 | Progress Note ---
Assessment and Plan Impression: * Acute kidney injury secondary to ATN likely related to COVID 19 * Acute hypoxic respiratory failure secondary to COVID 19 PNA * Azotemia * Hyperkalemia * Metabolic acidosis * Hypernatremia Plan: * Switch to D5 1/2 NS * Encourage PO hydration * Patient is s/p kayexelate daily x 2 days, dose today as well * Keep MAP>65 * Management of COVID 19 PNA to primary team/ID * Dose medications for renal function * AM labs * Renal diet Subjective Date of service: 05/26/21 Principal diagnosis: COVID19 Interval history: Nursing, interdisciplinary and consult notes were reviewed Vitals, input and output, medications and labs were reviewed On 3 L O2 Objective - Exam Narrative Exam: In order to reduce transmission risk given Covid, exam deferred. Primary team exam reviewed in detail. - Vital Signs Vital signs: Vital Signs - 12hr 05/26/21 05/26/21 05/26/21 06:31 06:45 07:01 Temperature Pulse Rate 136 H 134 H 134 H Respiratory 27 H 22 28 H Rate Blood Pressure 110/82 128/84 123/86 O2 Sat by Pulse 96 96 95 Oximetry 05/26/21 05/26/21 05/26/21 07:08 08:31 09:01 Temperature 98.0 F Pulse Rate 129 H 124 H Respiratory 15 23 Rate Blood Pressure 124/76 107/70 O2 Sat by Pulse 39 L 94 Oximetry 05/26/21 05/26/21 05/26/21 10:50 11:01 13:01 Temperature 98.8 F Pulse Rate 125 H 126 H 112 H Respiratory 34 H 22 Rate Blood Pressure 117/77 115/78 O2 Sat by Pulse 91 99 95 Oximetry 05/26/21 05/26/21 15:01 17:01 Temperature Pulse Rate 98 H 90 Respiratory 16 17 Rate Blood Pressure 112/73 112/74 O2 Sat by Pulse 99 95 Oximetry - Lab 05/26/21 03:15 05/26/21 03:15 Most recent lab results Calcium 10.0 mg/dL (8.4-10.2) 05/26/21 03:15 Medications & Allergies - Medications Allergies/Adverse Reactions: Allergies No Known Allergies Allergy (Unverified 02/12/17 15:47) Active Medications: Generic Name Dose Route Start Last Admin Trade Name Freq PRN Reason Stop Dose Admin Acetaminophen 650 mg 05/23/21 22:01 05/26/21 05:18 Acetaminophen 650 Mg Rect Supp DC 650 mg Q6H PRN Administration Pain MILD(1-3)/Fever >100.5/LUCAS Dexamethasone 6 mg 05/24/21 10:00 05/26/21 10:46 Dexamethasone 4 Mg/Ml Vial IV 6 mg Q24HR MIKE Administration Heparin Sodium (Porcine) 5,000 unit 05/24/21 06:00 05/26/21 13:44 Heparin 5,000 Unit/1 Ml Vial SUB-Q 5,000 unit Q8HR MIKE Administration Ceftriaxone Sodium 2 gm in 100 mls @ 200 mls/hr 05/24/21 10:00 05/26/21 10:46 Rocephin/Ns 2 Gm/100 Ml IV 05/27/21 10:29 200 mls/hr Q24HR MIKE Administration Protocol Azithromycin 500 mg in 250 mls @ 250 mls/hr 05/24/21 10:00 05/26/21 10:46 Zithromax/Ns IV 05/27/21 10:59 250 mls/hr Q24HR MIKE Administration Protocol Dextrose/Sodium Chloride 1,000 mls @ 125 mls/hr 05/26/21 10:00 D5/0.45ns IV DIRECT MIKE Magnesium Hydroxide 30 ml 05/23/21 22:01 Magnesium Hydroxide (Mom) Oral Liqd Udc PO Q4H PRN Constipation Morphine Sulfate 2 mg 05/23/21 22:01 05/25/21 06:28 Morphine 2 Mg/1 Ml Inj IV 2 mg Q4H PRN Administration Pain, Moderate (4-6) Morphine Sulfate 4 mg 05/23/21 22:01 Morphine 4 Mg/1 Ml Inj IV Q4H PRN Pain , Severe (7-10) Sodium Chloride 10 ml 05/24/21 10:00 05/26/21 10:47 Sodium Chloride 0.9% 10 Ml Flush Syringe IV 10 ml BID MIKE Administration Sodium Chloride 10 ml 05/23/21 22:01 Sodium Chloride 0.9% 10 Ml Flush Syringe IV PRN PRN LINE FLUSH
[2021-05-26] MEDS: SODIUM POLYSTYRENE 15 GM/60 ML ORAL LIQD PO SCH (20:11)
[2021-05-27] MEDS: HEPARIN 5,000 UNIT/1 ML VIAL SUB-Q SCH ×3 (06:49→22:05)
[2021-05-27 09:32] LABS: Hematocrit 46.6 % (35.5-45.6); Hemoglobin 14.6 gm/dl (11.8-15.2); Mean Corpuscular HGB Conc 31 % (32-34); Mean Corpuscular Volume 88 fl (84-94); Platelet Count 247 K/mm3 (140-440); Red Blood Count 5.27 M/mm3 (3.65-5.03); Red Cell Distribution Width 15.7 % (13.2-15.2)
[2021-05-27] MEDS: SODIUM POLYSTYRENE 15 GM/60 ML ORAL LIQD PO SCH (10:22)
[2021-05-27] MEDS: DEXAMETHASONE 4 MG TAB PO SCH (10:22)
[2021-05-27] MEDS: cefTRIAXone/NS 2 GM/100 ML 2 GM/100 ML BAG IV SCH (10:22)
[2021-05-27] MEDS: AZITHROMYCIN/NS 500 MG/250 ML 500 MG/250 ML BAG IV SCH (10:23)
[2021-05-27 11:04] LABS: C-Reactive Protein 5.2 mg/dL (0.00-1.30); Calcium 9.8 mg/dL (8.4-10.2)
--- NOTE | 2021-05-27 11:42 | Electrocardiograph Report ---
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
[2021-05-27] MEDS: DEXTROSE 5% IN WATER 1,000 ML IV SCH ×2 (11:45→22:06)
--- NOTE | 2021-05-27 13:46 | Progress Note ---
Assessment and Plan Impression: * Acute kidney injury secondary to ATN likely related to COVID 19 * Acute hypoxic respiratory failure secondary to COVID 19 PNA * Azotemia * Hyperkalemia * Metabolic acidosis * Hypernatremia Plan: * Start D5W * Recommend NG tube placement - start free water replacement 400 ml Q3h. Discussed with Dr Cruz. * Patient is s/p kayexelate daily x 2 days, dose today as well * Keep MAP>65 * Management of COVID 19 PNA to primary team/ID * Dose medications for renal function * AM labs * Renal diet Subjective Date of service: 05/27/21 Principal diagnosis: COVID19 Interval history: Nursing, interdisciplinary and consult notes were reviewed Vitals, input and output, medications and labs were reviewed Remains on 3 L O2 Objective - Exam Narrative Exam: In order to reduce transmission risk given Covid, exam deferred. Primary team exam reviewed in detail. - Vital Signs Vital signs: Vital Signs - 12hr 05/27/21 05/27/21 05/27/21 02:27 06:37 11:30 Temperature 99.2 F 97.4 F L Pulse Rate 122 H 136 H Respiratory 20 18 Rate Blood Pressure 139/82 130/78 122/79 O2 Sat by Pulse 100 88 92 Oximetry - Lab 05/27/21 08:09 05/27/21 08:09 Most recent lab results Calcium 9.8 mg/dL (8.4-10.2) 05/27/21 08:09 Medications & Allergies - Medications Allergies/Adverse Reactions: Allergies No Known Allergies Allergy (Unverified 02/12/17 15:47) Active Medications: Generic Name Dose Route Start Last Admin Trade Name Freq PRN Reason Stop Dose Admin Acetaminophen 650 mg 05/23/21 22:01 05/26/21 05:18 Acetaminophen 650 Mg Rect Supp ND 650 mg Q6H PRN Administration Pain MILD(1-3)/Fever >100.5/LUCAS Dexamethasone 6 mg 05/27/21 10:00 05/27/21 10:22 Dexamethasone 4 Mg Tab PO 06/01/21 12:00 6 mg DAILY MIKE Administration Heparin Sodium (Porcine) 5,000 unit 05/24/21 06:00 05/27/21 06:49 Heparin 5,000 Unit/1 Ml Vial SUB-Q 5,000 unit Q8HR MIKE Administration Dextrose 1,000 mls @ 150 mls/hr 05/27/21 12:00 05/27/21 11:45 D5w IV 150 mls/hr DIRECT MIKE Administration Magnesium Hydroxide 30 ml 05/23/21 22:01 Magnesium Hydroxide (Mom) Oral Liqd Udc PO Q4H PRN Constipation Morphine Sulfate 2 mg 05/23/21 22:01 05/25/21 06:28 Morphine 2 Mg/1 Ml Inj IV 2 mg Q4H PRN Administration Pain, Moderate (4-6) Morphine Sulfate 4 mg 05/23/21 22:01 Morphine 4 Mg/1 Ml Inj IV Q4H PRN Pain , Severe (7-10) Sodium Chloride 10 ml 05/24/21 10:00 05/27/21 10:23 Sodium Chloride 0.9% 10 Ml Flush Syringe IV 10 ml BID MIKE Administration Sodium Chloride 10 ml 05/23/21 22:01 Sodium Chloride 0.9% 10 Ml Flush Syringe IV PRN PRN LINE FLUSH Sodium Polystyrene Sulfonate 15 gm 05/26/21 19:00 05/27/21 10:22 Sodium Polystyrene 15 Gm/60 Ml Oral Liqd PO 15 gm QDAY MIKE Administration
[2021-05-27 14:39] LABS: Myeloperoxidase Antibody <1.0 AI (<1.0)
--- NOTE | 2021-05-27 16:06 | Progress Note ---
Assessment and Plan Cultures: SARS CoV2 PCR: Positive as outpatient. Negative here x 2 05/23/2021 blood culture: no growth A/P: 55/M with: #Bilateral pneumonia: ? secondary to COVID-19, tested positive as outpatient, but negative here x 2. Severe disease. Inflammatory markers elevated, high ddimer, CRP improving. #Acute hypoxic respiratory failure: Now on 3-4 L. #Acute renal failure: Nephrology on board. #Hypernatremia: Per primary team/ renal not better #Tachycardia #Elevated ddimer: VQ low prob for PE Recs: -Continue IV/PO Dexamethasone x 10 days -Not a candidate for remdesivir due to renal failure and out of window anyway -prophylactic anticoagulation based on d-dimer per hospital protocol -trend d-dimer, CRP every 2-3 days -Monitor off abx Klaudia Somers MD [facility] ([facility]) Office [phone] Subjective Date of service: 05/27/21 Principal diagnosis: COVID19 Interval history: remains on 3-4L, sats 88%. No fever. Tachycardic on monitor Objective - Exam Narrative Exam: General appearance: Alert in NAD Eyes: anicteric sclerae, moist conjunctivae; no lid-lag; PERRLA HENT: Normocephalic, Atraumatic; normal external ears, nares open, oropharynx limited Neck: supple, tracheal midline, no JVD Lungs:coarse BS CV: RRR no murmur Abdomen: Soft, non-tender; no masses or hepatosplenomegaly Extremities: no edema, no cyanosis Skin: No rash. Psych: no agitated Neuro: alert and confused - Constitutional Vitals: Vital Signs Temp Pulse Resp BP Pulse Ox 97.4 F L 136 H 18 122/79 92 05/27/21 11:30 05/27/21 11:30 05/27/21 11:30 05/27/21 11:30 05/27/21 11:30 Temperature -Last 24 Hours Temperature 97.4 F Temperature 99.2 F Temperature 97.9 F - Labs CBC & Chem 7: 05/28/21 07:31 05/28/21 07:31 Labs: Abnormal lab results 05/27/21 05/27/21 05/27/21 Range/Units 08:09 08:09 08:09 WBC 12.4 H (4.5-11.0) K/mm3 RBC 5.27 H (3.65-5.03) M/mm3 Hct 46.6 H (35.5-45.6) % MCHC 31 L (32-34) % RDW 15.7 H (13.2-15.2) % D-Dimer 3584.01 H (0-234) ng/mlDDU Sodium 174 H* (137-145) mmol/L Chloride 136.9 H (98-107) mmol/L BUN 90 H (9-20) mg/dL Creatinine 1.8 H (0.8-1.3) mg/dL Ferritin (30.0-300.0) ng/mL Lactate Dehydrogenase 642 H (91-180) units/L C-Reactive Protein 5.20 H (0.00-1.30) mg/dL 05/27/21 Range/Units 08:09 WBC (4.5-11.0) K/mm3 RBC (3.65-5.03) M/mm3 Hct (35.5-45.6) % MCHC (32-34) % RDW (13.2-15.2) % D-Dimer (0-234) ng/mlDDU Sodium (137-145) mmol/L Chloride (98-107) mmol/L BUN (9-20) mg/dL Creatinine (0.8-1.3) mg/dL Ferritin 2742.0 H (30.0-300.0) ng/mL Lactate Dehydrogenase (91-180) units/L C-Reactive Protein (0.00-1.30) mg/dL
--- NOTE | 2021-05-27 16:58 | Progress Note ---
Assessment and Plan Assessment and plan: #Acute hypoxic respiratory failure -Currently greater than 92% on nasal cannula; currently on 3 L nasal cannula -D-dimer greater than 10,000 -> 6229 -VQ scan low probability for PE -continue antibiotics and steroids for now -will continue to monitor, if patient condition worsens, low threshold for Pulmonary/CC consult #Sepsis-improving -Blood cultures NGTD -Likely secondary to Covid pneumonia -repeat COVID-19 PCR negative #Lactic acidosis-resolved -Lactate 2.3 -> 1.70 #Acute encephalopathy -Resolved -CT head negative, ammonia 22 -Patient cooperative follows commands; however, patient is still not at baseline #ANGELES -Creatinine 1.8 today -Likely prerenal secondary to volume depletion after several days of no oral intake -Renal ultrasound unremarkable -Nephrology consulted, recs appreciated -will avoid nephrotoxic agents #Hyperkalemia -K 5.5 today -will continue to monitor #Pneumonia -Continue azithromycin and Rocephin #COVID-19 infection -Diagnosed on 05/11 -D-dimer greater than 10,000, ferritin 2000, LDH 577, CRP 8.8 -ID consulted, assistance appreciated -Continue steroids x10 days and vitamins #Hypernatremia-worsening -continue D5 half-normal saline -Likely secondary to almost 2 weeks no oral intake -Consulted nephrology appreciate Rec; increasing oral intake with use of NG tube Disposition Plan: Needs additional medical management Total Time Spent with Patient (Minutes): 30 History Interval history: No acute events over night. The patient denies fevers, chills, nausea, vomiting, abdominal pain, chest pain/pressure, shortness of breath, urinary symptoms, weakness, or confusion. Hospitalist Physical - Constitutional Vitals: Temp Pulse Resp BP Pulse Ox 98.4 F 109 H 18 134/84 96 05/27/21 15:51 05/27/21 15:51 05/27/21 15:51 05/27/21 15:51 05/27/21 15:51 General appearance: Present: no acute distress, cachectic - EENT Eyes: Present: PERRL, EOM intact ENT: hearing intact, clear oral mucosa, dentition normal - Neck Neck: Present: supple, normal ROM - Respiratory Respiratory effort: normal Respiratory: bilateral: diminished, rhonchi - Cardiovascular Rhythm: regular Heart Sounds: Present: S1 & S2 - Extremities Extremities: no ischemia, pulses intact, pulses symmetrical, No edema - Abdominal General gastrointestinal: soft, non-tender, non-distended, normal bowel sounds - Integumentary Integumentary: Present: clear, warm, dry - Psychiatric Psychiatric: appropriate mood/affect, intact judgment & insight, depressed - Neurologic Neurologic: CNII-XII intact, moves all extremities - Allied Health Allied health notes reviewed: nursing HEART Score - HEART Score History: Slightly suspicious EKG: Non-specific Age: 45-65 Risk factors: 1-2 risk factors Troponin: Troponin T < 0.010 ng/mL (0.00-0.029) 05/23/21 18:48 - Critical Actions Critical Actions: 0-3 pts:0.9-1.7%risk of adverse cardiac event.Candidate for discharge Results - Labs CBC & Chem 7: 05/27/21 08:09 05/27/21 08:09 Labs: Laboratory Last Values WBC 12.4 K/mm3 (4.5-11.0) H 05/27/21 08:09 RBC 5.27 M/mm3 (3.65-5.03) H 05/27/21 08:09 Hgb 14.6 gm/dl (11.8-15.2) 05/27/21 08:09 Hct 46.6 % (35.5-45.6) H 05/27/21 08:09 MCV 88 fl (84-94) 05/27/21 08:09 MCH 28 pg (28-32) 05/27/21 08:09 MCHC 31 % (32-34) L 05/27/21 08:09 RDW 15.7 % (13.2-15.2) H 05/27/21 08:09 Plt Count 247 K/mm3 (140-440) 05/27/21 08:09 Add Manual Diff Complete 05/23/21 18:48 Total Counted 100 05/23/21 18:48 Seg Neuts % (Manual) 84.0 % (40.0-70.0) H 05/23/21 18:48 Band Neutrophils % 1.0 % 05/23/21 18:48 Lymphocytes % (Manual) 14.0 % (13.4-35.0) 05/23/21 18:48 Monocytes % (Manual) 1.0 % (0.0-7.3) 05/23/21 18:48 Nucleated RBC % Not Reportable 05/23/21 18:48 Seg Neutrophils # Man 9.9 K/mm3 (1.8-7.7) H 05/23/21 18:48 Band Neutrophils # 0.1 K/mm3 05/23/21 18:48 Lymphocytes # (Manual) 1.7 K/mm3 (1.2-5.4) 05/23/21 18:48 Abs React Lymphs (Man) 0.0 K/mm3 05/23/21 18:48 Monocytes # (Manual) 0.1 K/mm3 (0.0-0.8) 05/23/21 18:48 Eosinophils # (Manual) 0.0 K/mm3 (0.0-0.4) 05/23/21 18:48 Basophils # (Manual) 0.0 K/mm3 (0.0-0.1) 05/23/21 18:48 Metamyelocytes # 0.0 K/mm3 05/23/21 18:48 Myelocytes # 0.0 K/mm3 05/23/21 18:48 Promyelocytes # 0.0 K/mm3 05/23/21 18:48 Blast Cells # 0.0 K/mm3 05/23/21 18:48 WBC Morphology Not Reportable 05/23/21 18:48 Hypersegmented Neuts Not Reportable 05/23/21 18:48 Hyposegmented Neuts Not Reportable 05/23/21 18:48 Hypogranular Neuts Not Reportable 05/23/21 18:48 Smudge Cells Not Reportable 05/23/21 18:48 Toxic Granulation Not Reportable 05/23/21 18:48 Toxic Vacuolation Not Reportable 05/23/21 18:48 Dohle Bodies Not Reportable 05/23/21 18:48 Pelger-Huet Anomaly Not Reportable 05/23/21 18:48 Kaci Rods Not Reportable 05/23/21 18:48 Platelet Estimate Consistent w auto 05/23/21 18:48 Clumped Platelets Not Reportable 05/23/21 18:48 Plt Clumps, EDTA Not Reportable 05/23/21 18:48 Large Platelets Not Reportable 05/23/21 18:48 Giant Platelets Not Reportable 05/23/21 18:48 Platelet Satelliting Not Reportable 05/23/21 18:48 Plt Morphology Comment Not Reportable 05/23/21 18:48 RBC Morphology Not Reportable 05/23/21 18:48 Dimorphic RBCs Not Reportable 05/23/21 18:48 Polychromasia Not Reportable 05/23/21 18:48 Hypochromasia Not Reportable 05/23/21 18:48 Poikilocytosis Not Reportable 05/23/21 18:48 Anisocytosis 1+ 05/23/21 18:48 Microcytosis Not Reportable 05/23/21 18:48 Macrocytosis Not Reportable 05/23/21 18:48 Spherocytes Not Reportable 05/23/21 18:48 Pappenheimer Bodies Not Reportable 05/23/21 18:48 Sickle Cells Not Reportable 05/23/21 18:48 Target Cells Not Reportable 05/23/21 18:48 Tear Drop Cells Not Reportable 05/23/21 18:48 Ovalocytes Not Reportable 05/23/21 18:48 Helmet Cells Not Reportable 05/23/21 18:48 [place] Bodies Not Reportable 05/23/21 18:48 [place] Rings Not Reportable 05/23/21 18:48 [place] Cells Not Reportable 05/23/21 18:48 Bite Cells Not Reportable 05/23/21 18:48 Crenated Cell Not Reportable 05/23/21 18:48 Elliptocytes Not Reportable 05/23/21 18:48 Acanthocytes (Spur) Not Reportable 05/23/21 18:48 Rouleaux Not Reportable 05/23/21 18:48 Hemoglobin C Crystals Not Reportable 05/23/21 18:48 Schistocytes Not Reportable 05/23/21 18:48 Malaria parasites Not Reportable 05/23/21 18:48 Dick Bodies Not Reportable 05/23/21 18:48 Hem Pathologist Commnt No 05/23/21 18:48 D-Dimer 3584.01 ng/mlDDU (0-234) H 05/27/21 08:09 VBG pH 7.254 (7.320-7.420) L 05/24/21 02:09 Sodium 174 mmol/L (137-145) H* 05/27/21 08:09 Potassium 4.1 mmol/L (3.6-5.0) D 05/27/21 08:09 Chloride 136.9 mmol/L (98-107) H 05/27/21 08:09 Carbon Dioxide 25 mmol/L (22-30) 05/27/21 08:09 Anion Gap 19 mmol/L 05/27/21 08:09 BUN 90 mg/dL (9-20) H 05/27/21 08:09 Creatinine 1.8 mg/dL (0.8-1.3) H 05/27/21 08:09 Estimated GFR 48 ml/min 05/27/21 08:09 BUN/Creatinine Ratio 50 % 05/27/21 08:09 Glucose 100 mg/dL (75-100) 05/27/21 08:09 POC Glucose 153 mg/dL (70-105) H 05/24/21 17:34 Lactic Acid 1.70 mmol/L (0.7-2.0) 05/24/21 09:39 Calcium 9.8 mg/dL (8.4-10.2) 05/27/21 08:09 Ferritin 2742.0 ng/mL (30.0-300.0) H 05/27/21 08:09 Total Bilirubin 0.90 mg/dL (0.1-1.2) 05/23/21 18:48 AST 27 units/L (5-40) 05/23/21 18:48 ALT 7 units/L (7-56) 05/23/21 18:48 Alkaline Phosphatase 69 units/L (35-129) 05/23/21 18:48 Ammonia 22.0 umol/L (25-60) L 05/23/21 18:48 Lactate Dehydrogenase 642 units/L (91-180) H 05/27/21 08:09 Troponin T < 0.010 ng/mL (0.00-0.029) 05/23/21 18:48 C-Reactive Protein 5.20 mg/dL (0.00-1.30) H 05/27/21 08:09 Total Protein 9.4 g/dL (6.3-8.2) H 05/23/21 18:48 Albumin 3.0 g/dL (3.9-5) L 05/23/21 18:48 Albumin/Globulin Ratio 0.5 % 05/23/21 18:48 Procalcitonin 0.31 ng/mL (<0.15) 05/23/21 18:48 TSH 1.150 mlU/mL (0.270-4.200) 05/23/21 18:48 Plasma/Serum Alcohol < 0.01 % (0-0.07) 05/23/21 18:48 Proteinase 3 (PR3) Ab <1.0 AI (<1.0) 05/24/21 20:57 Myeloperoxidase Ab <1.0 AI (<1.0) 05/24/21 20:57 Coronavirus (PCR) Negative (Negative) 05/26/21 08:41 Microbiology: Microbiology 05/23/21 19:50 Peripheral/Venous Blood Culture - Preliminary NO GROWTH AFTER 72 HOURS 05/23/21 19:42 Peripheral/Venous Blood Culture - Preliminary NO GROWTH AFTER 72 HOURS Heart/IV: Voiding Method Incontinent Active Medications - Current Medications Current Medications: Generic Name Dose Route Start Last Admin Trade Name Freq PRN Reason Stop Dose Admin Acetaminophen 650 mg 05/23/21 22:01 05/26/21 05:18 Acetaminophen 650 Mg Rect Supp [place] 650 mg Q6H PRN Administration Pain MILD(1-3)/Fever >100.5/LUCAS Dexamethasone 6 mg 05/27/21 10:00 05/27/21 10:22 Dexamethasone 4 Mg Tab PO 06/01/21 12:00 6 mg DAILY MIKE Administration Heparin Sodium (Porcine) 5,000 unit 05/24/21 06:00 05/27/21 06:49 Heparin 5,000 Unit/1 Ml Vial SUB-Q 5,000 unit Q8HR MIKE Administration Dextrose 1,000 mls @ 150 mls/hr 05/27/21 12:00 05/27/21 11:45 D5w IV 150 mls/hr DIRECT MIKE Administration Magnesium Hydroxide 30 ml 05/23/21 22:01 Magnesium Hydroxide (Mom) Oral Liqd Udc PO Q4H PRN Constipation Morphine Sulfate 2 mg 05/23/21 22:01 05/25/21 06:28 Morphine 2 Mg/1 Ml Inj IV 2 mg Q4H PRN Administration Pain, Moderate (4-6) Morphine Sulfate 4 mg 05/23/21 22:01 Morphine 4 Mg/1 Ml Inj IV Q4H PRN Pain , Severe (7-10) Sodium Chloride 10 ml 05/24/21 10:00 05/27/21 10:23 Sodium Chloride 0.9% 10 Ml Flush Syringe IV 10 ml BID MIKE Administration Sodium Chloride 10 ml 05/23/21 22:01 Sodium Chloride 0.9% 10 Ml Flush Syringe IV PRN PRN LINE FLUSH Sodium Polystyrene Sulfonate 15 gm 05/26/21 19:00 05/27/21 10:22 Sodium Polystyrene 15 Gm/60 Ml Oral Liqd PO 15 gm QDAY MIKE Administration Nutrition/Malnutrition Assess - Dietary Evaluation Nutrition/Malnutrition Findings: Nutrition Notes Start: 05/25/21 09:33 Freq: Status: Active Protocol: Document 05/27/21 10:58 (Rec: 05/27/21 11:06 [id number]) Nutrition Notes Initial or Follow up Assessment Current Diagnosis Acute Kidney Injury Other Pertinent Diagnosis pneu, COVID PUI, encephalopathy Current Diet Renal Labs/Tests Na 166 K 5.5 BUN 102 Cr 1.8 Pertinent Medications D5 1/2 NS at 125 ml/hr Kionex Height 5 ft 11 in Weight 77.11 kg [place] Body Weight (kg) 78.18 BMI 23.7 Weight Status Appropriate Subjective/Other Information RN reports pt intakes remain poor, 25%. He had not gotten ONS yet. Percent of energy/protein needs met: 26%/21% Burn Absent Trauma Absent Current % PO Poor (25-49%) Minimum of two criteria No Energy Intake (non-severe) <75% Estimated Energy Requirement >7 days #1 Nutrition Diagnosis Inadequate oral intake Diagnosis Progress(for reassessment Continues documentation) Is patient on ventilator? No Is Patient Ambulatory and/or Out of Bed No REE-([facility]-confined to bed) 1964.124 Calculation Used for Recommendations [facility] Additional Notes Protein: (>1.2g/kg) >93g Fluid: 1 ml/kcal or per MD Nutrition Intervention Change Diet Order: continue Nutrition Support: Recommend TF Add Supplement/Snack (indicate name/kcal [place] BID /protein ) Provides kCal: 850 Provides Protein (gm) 38 Goal #1 Meet at least 75% of protein and kcal needs via PO and ONS intakes Anticipated Discharge Needs: Renal Follow-Up By: 05/29/21 Additional Comments F/u: intakes, need for TF - Attestation Statement I have reviewed and agreed w/ Malnutrition eval & tx plan: Yes
--- NOTE | 2021-05-27 17:10 | XRay Report ---
ABDOMEN 1 VIEW INDICATION / CLINICAL INFORMATION: verify dobhoff for feeding. COMPARISON: Chest radiograph 05/23/2021 FINDINGS: TUBES / LINES: Interval placement of a Dobbhoff tube with tip terminating near the gastric fundus. BOWEL GAS PATTERN: No significant abnormality. FREE AIR / EXTRALUMINAL GAS: None seen. ADDITIONAL FINDINGS: There are patchy airspace opacities in the lung bases. There is a 9 mm density p rojecting in the region of the lower pole of the left kidney, possibly reflecting an intrarenal stone . IMPRESSION: 1. The tip of the Dobbhoff tube terminates in the gastric fundus. 2. A 9 mm density projecting in the region of the left lower pole of the kidney may reflect an intrar enal stone. Signer Name: Katherine Bermudez MD Signed: 05/27/2021 5:06 PM Workstation Name: [id number]
[2021-05-27] MEDS: FREE WATER PO SCH ×3 (17:24→22:05)
[2021-05-28] MEDS: FREE WATER PO SCH ×8 (03:11→21:17)
[2021-05-28] MEDS: HEPARIN 5,000 UNIT/1 ML VIAL SUB-Q SCH ×3 (06:03→22:00)
[2021-05-28] MEDS: DEXTROSE 5% IN WATER 1,000 ML IV SCH ×3 (06:08→21:04)
[2021-05-28 08:22] LABS: Hematocrit 40.6 % (35.5-45.6); Hemoglobin 12.7 gm/dl (11.8-15.2); Mean Corpuscular HGB Conc 31 % (32-34); Mean Corpuscular Volume 87 fl (84-94); Platelet Count 179 K/mm3 (140-440); Red Blood Count 4.66 M/mm3 (3.65-5.03); Red Cell Distribution Width 15.2 % (13.2-15.2)
[2021-05-28 08:24] LABS: Calcium 8.9 mg/dL (8.4-10.2)
--- NOTE | 2021-05-28 10:17 | Progress Note ---
Assessment and Plan Cultures: SARS CoV2 PCR: Positive as outpatient. Negative here x 2 05/23/2021 blood culture: no growth A/P: 55/M with: #Bilateral pneumonia: ? secondary to COVID-19, tested positive as outpatient, but negative here x 2. Severe disease. Inflammatory markers elevated, high ddimer, CRP improving. #Acute hypoxic respiratory failure: Now 5L. #Acute renal failure: Nephrology on board. #Hypernatremia: Per primary team/ renal not better #Tachycardia #Elevated ddimer: VQ low prob for PE Recs: -Continue IV/PO Dexamethasone x 10 days -Not a candidate for remdesivir due to renal failure and out of window anyway -prophylactic anticoagulation based on d-dimer per hospital protocol -trend d-dimer, CRP every 2-3 days -Monitor off abx will sign off please call us if questions Klaudia Somers MD [facility] ([facility]) Office [phone] Subjective Date of service: 05/28/21 Principal diagnosis: COVID19 Interval history: Patient feels better, now on 5 L, 88% overnight, no fever. Objective - Exam Narrative Exam: General appearance: Alert in NAD Eyes: anicteric sclerae, moist conjunctivae; no lid-lag; PERRLA HENT: Normocephalic, Atraumatic; normal external ears, nares open, oropharynx limited Neck: supple, tracheal midline, no JVD Lungs: Clear to auscultation bilaterally CV: RRR no murmur Abdomen: Soft, non-tender; no masses or hepatosplenomegaly Extremities: no edema, no cyanosis Skin: No rash. Psych: no agitated Neuro: alert follows commands - Constitutional Vitals: Vital Signs Temp Pulse Resp BP Pulse Ox 98.4 F 109 H 18 134/84 93 05/27/21 15:51 05/27/21 15:51 05/27/21 15:51 05/27/21 15:51 05/27/21 20:26 Temperature -Last 24 Hours Temperature 98.4 F Temperature 97.4 F - Labs CBC & Chem 7: 05/28/21 07:31 05/28/21 07:31 Labs: Abnormal lab results 05/27/21 05/27/21 05/28/21 Range/Units 08:09 08:09 07:31 MCH (28-32) pg MCHC (32-34) % Sodium 174 H* 162 H* D (137-145) mmol/L Chloride 136.9 H 125.8 H (98-107) mmol/L BUN 90 H 72 H (9-20) mg/dL Creatinine 1.8 H 1.6 H (0.8-1.3) mg/dL Glucose 131 H (75-100) mg/dL Magnesium 3.00 H (1.7-2.3) mg/dL Ferritin 2742.0 H (30.0-300.0) ng/mL Lactate Dehydrogenase 642 H (91-180) units/L C-Reactive Protein 5.20 H (0.00-1.30) mg/dL 05/28/21 Range/Units 07:31 MCH 27 L (28-32) pg MCHC 31 L (32-34) % Sodium (137-145) mmol/L Chloride (98-107) mmol/L BUN (9-20) mg/dL Creatinine (0.8-1.3) mg/dL Glucose (75-100) mg/dL Magnesium (1.7-2.3) mg/dL Ferritin (30.0-300.0) ng/mL Lactate Dehydrogenase (91-180) units/L C-Reactive Protein (0.00-1.30) mg/dL
[2021-05-28 10:42] LABS: Platelet Estimate Consistent w Auto; Total Cells Counted 100
[2021-05-28] MEDS: DEXAMETHASONE 4 MG TAB PO SCH (11:59)
--- NOTE | 2021-05-28 12:16 | Progress Note ---
Assessment and Plan Impression: * Acute kidney injury secondary to ATN likely related to COVID 19 * Acute hypoxic respiratory failure secondary to COVID 19 PNA * Azotemia * Hyperkalemia * Metabolic acidosis * Hypernatremia Plan: * Continue D5W * S/p NG tube placement - free water replacement 400 ml Q3h. * Patient is s/p kayexelate daily x 2 days, dose today as well * Keep MAP>65 * Management of COVID 19 PNA to primary team/ID * Dose medications for renal function * AM labs * Renal diet Subjective Date of service: 05/28/21 Principal diagnosis: Pneumonia Interval history: Nursing, interdisciplinary and consult notes were reviewed Vitals, input and output, medications and labs were reviewed Remains on 3 L O2 UOP 2.4 L Objective - Exam Narrative Exam: General: No acute distress Neck: Supple, no JVD. NG tube noted. Chest: Clear to auscultation bilaterally Heart: RRR, S1 and S2, no pericardial rub Abdomen: Soft, nontender, no renal bruit Extremity: No peripheral cyanosis, edema Neurological: Alert, awake, no asterixis Dermatology: No skin rash Psych: No agitation Musculoskeletal: No joint effusion - Lab 05/28/21 07:31 05/28/21 07:31 Most recent lab results Calcium 8.9 mg/dL (8.4-10.2) 05/28/21 07:31 Phosphorus 3.30 mg/dL (2.5-4.5) 05/28/21 07:31 Magnesium 3.00 mg/dL (1.7-2.3) H 05/28/21 07:31 Medications & Allergies - Medications Allergies/Adverse Reactions: Allergies No Known Allergies Allergy (Unverified 02/12/17 15:47) Active Medications: Generic Name Dose Route Start Last Admin Trade Name Freq PRN Reason Stop Dose Admin Acetaminophen 650 mg 05/23/21 22:01 05/26/21 05:18 Acetaminophen [address] 650 mg Q6H PRN Administration Pain MILD(1-3)/Fever >100.5/LUCAS Dexamethasone 6 mg 05/27/21 10:00 05/28/21 11:59 Dexamethasone 4 Mg Tab PO 06/01/21 12:00 6 mg DAILY MIKE Administration Heparin Sodium (Porcine) 5,000 unit 05/24/21 06:00 05/28/21 06:03 Heparin 5,000 Unit/1 Ml Vial SUB-Q 5,000 unit Q8HR MIKE Administration Dextrose 1,000 mls @ 150 mls/hr 05/27/21 12:00 05/28/21 06:08 D5w IV 150 mls/hr DIRECT MIKE Administration Magnesium Hydroxide 30 ml 05/23/21 22:01 Magnesium Hydroxide (Mom) Oral Liqd Udc PO Q4H PRN Constipation Morphine Sulfate 2 mg 05/23/21 22:01 05/25/21 06:28 Morphine 2 Mg/1 Ml Inj IV 2 mg Q4H PRN Administration Pain, Moderate (4-6) Morphine Sulfate 4 mg 05/23/21 22:01 Morphine 4 Mg/1 Ml Inj IV Q4H PRN Pain , Severe (7-10) Sodium Chloride 10 ml 05/24/21 10:00 05/28/21 12:01 Sodium Chloride 0.9% 10 Ml Flush Syringe IV 10 ml BID MIKE Administration Sodium Chloride 10 ml 05/23/21 22:01 Sodium Chloride 0.9% 10 Ml Flush Syringe IV PRN PRN LINE FLUSH
--- NOTE | 2021-05-28 13:00 | Progress Note ---
Assessment and Plan Assessment and plan: #Acute hypoxic respiratory failure -Currently greater than 92% on nasal cannula; currently on 3 L nasal cannula -D-dimer greater than 10,000 -> 6229; will reorder inflammatory labs in a.m. -VQ scan low probability for PE -continue steroids for now -will continue to monitor, if patient condition worsens, low threshold for Pulmonary/CC consult #Sepsis-resolved -Blood cultures NGTD -Likely secondary to Covid pneumonia -repeat COVID-19 PCR negative #Lactic acidosis-resolved -Lactate 2.3 -> 1.70 #Acute encephalopathy-improving -CT head negative, ammonia 22 -Patient cooperative follows commands; however, patient is still not at baseline -Clinical improvement in mentation seen with improvement of hypernatremia. Discussed with patient's daughter to determine better understanding of patient's baseline mental status #ANGELES -Creatinine 1.6 -Likely prerenal secondary to volume depletion after several days of no oral intake -Renal ultrasound unremarkable -Nephrology consulted, recs appreciated -will avoid nephrotoxic agents #Hyperkalemia-resolved -K 3.7 today -will continue to monitor #Pneumonia-resolved -Completed azithromycin and Rocephin #COVID-19 infection -Diagnosed on 05/11 -D-dimer greater than 10,000, ferritin 2000, LDH 577, CRP 8.8 -ID consulted, assistance appreciated -Continue steroids x10 days and vitamins -We will reorder Covid inflammatory labs in a.m. #Hypernatremia-improving - Na 174-->162 -continue D5 half-normal saline -Continue free water flushes (400 cc every 3 hours) per nephrology recommendations -Likely secondary to almost 2 weeks no oral intake -Consulted nephrology (appreciate recs) Disposition Plan: Pending clinical improvement Total Time Spent with Patient (Minutes): 30 History Interval history: No acute events over night. The patient denies fevers, chills, nausea, vomiting, abdominal pain, chest pain/pressure, shortness of breath, urinary symptoms, weakness, or confusion. Hospitalist Physical - Constitutional Vitals: Temp Pulse Resp BP Pulse Ox 98.4 F 109 H 18 134/84 93 05/27/21 15:51 05/27/21 15:51 05/27/21 15:51 05/27/21 15:51 05/27/21 20:26 General appearance: Present: no acute distress, cachectic - EENT Eyes: Present: PERRL, EOM intact ENT: hearing intact, clear oral mucosa, dentition normal - Neck Neck: Present: supple, normal ROM - Respiratory Respiratory effort: normal Respiratory: bilateral: diminished, rhonchi, negative: rales - Cardiovascular Heart rate: 115 Rhythm: regular Heart Sounds: Present: S1 & S2 - Extremities Extremities: no ischemia, pulses intact, pulses symmetrical, No edema, normal temperature, normal color Peripheral Pulses: within normal limits - Abdominal General gastrointestinal: soft, non-tender, non-distended, normal bowel sounds - Integumentary Integumentary: Present: clear, warm, dry - Psychiatric Psychiatric: appropriate mood/affect, intact judgment & insight, memory intact, cooperative - Neurologic Neurologic: CNII-XII intact - Allied Health Allied health notes reviewed: nursing HEART Score - HEART Score History: Slightly suspicious EKG: Non-specific Age: 45-65 Risk factors: 1-2 risk factors Troponin: Troponin T < 0.010 ng/mL (0.00-0.029) 05/23/21 18:48 - Critical Actions Critical Actions: 0-3 pts:0.9-1.7%risk of adverse cardiac event.Candidate for discharge Results - Labs CBC & Chem 7: 05/28/21 07:31 05/28/21 07:31 Labs: Laboratory Last Values WBC 9.4 K/mm3 (4.5-11.0) 05/28/21 07:31 RBC 4.66 M/mm3 (3.65-5.03) 05/28/21 07:31 Hgb 12.7 gm/dl (11.8-15.2) 05/28/21 07:31 Hct 40.6 % (35.5-45.6) D 05/28/21 07:31 MCV 87 fl (84-94) 05/28/21 07:31 MCH 27 pg (28-32) L 05/28/21 07:31 MCHC 31 % (32-34) L 05/28/21 07:31 RDW 15.2 % (13.2-15.2) 05/28/21 07:31 Plt Count 179 K/mm3 (140-440) 05/28/21 07:31 Add Manual Diff Complete 05/28/21 07:31 Total Counted 100 05/28/21 07:31 Seg Neuts % (Manual) 88.0 % (40.0-70.0) H 05/28/21 07:31 Band Neutrophils % 1.0 % 05/23/21 18:48 Lymphocytes % (Manual) 11.0 % (13.4-35.0) L 05/28/21 07:31 Monocytes % (Manual) 1.0 % (0.0-7.3) 05/28/21 07:31 Nucleated RBC % Not Reportable 05/28/21 07:31 Seg Neutrophils # Man 8.3 K/mm3 (1.8-7.7) H 05/28/21 07:31 Band Neutrophils # 0.0 K/mm3 05/28/21 07:31 Lymphocytes # (Manual) 1.0 K/mm3 (1.2-5.4) L 05/28/21 07:31 Abs React Lymphs (Man) 0.0 K/mm3 05/28/21 07:31 Monocytes # (Manual) 0.1 K/mm3 (0.0-0.8) 05/28/21 07:31 Eosinophils # (Manual) 0.0 K/mm3 (0.0-0.4) 05/28/21 07:31 Basophils # (Manual) 0.0 K/mm3 (0.0-0.1) 05/28/21 07:31 Metamyelocytes # 0.0 K/mm3 05/28/21 07:31 Myelocytes # 0.0 K/mm3 05/28/21 07:31 Promyelocytes # 0.0 K/mm3 05/28/21 07:31 Blast Cells # 0.0 K/mm3 05/28/21 07:31 WBC Morphology Not Reportable 05/28/21 07:31 Hypersegmented Neuts Not Reportable 05/28/21 07:31 Hyposegmented Neuts Not Reportable 05/28/21 07:31 Hypogranular Neuts Not Reportable 05/28/21 07:31 Smudge Cells Not Reportable 05/28/21 07:31 Toxic Granulation Not Reportable 05/28/21 07:31 Toxic Vacuolation Not Reportable 05/28/21 07:31 Dohle Bodies Not Reportable 05/28/21 07:31 Pelger-Huet Anomaly Not Reportable 05/28/21 07:31 Kaci Rods Not Reportable 05/28/21 07:31 Platelet Estimate Consistent w auto 05/28/21 07:31 Clumped Platelets Not Reportable 05/28/21 07:31 Plt Clumps, EDTA Not Reportable 05/28/21 07:31 Large Platelets Not Reportable 05/28/21 07:31 Giant Platelets Not Reportable 05/28/21 07:31 Platelet Satelliting Not Reportable 05/28/21 07:31 Plt Morphology Comment Not Reportable 05/28/21 07:31 RBC Morphology Not Reportable 05/28/21 07:31 Dimorphic RBCs Not Reportable 05/28/21 07:31 Polychromasia Not Reportable 05/28/21 07:31 Hypochromasia Not Reportable 05/28/21 07:31 Poikilocytosis Not Reportable 05/28/21 07:31 Anisocytosis Not Reportable 05/28/21 07:31 Microcytosis Not Reportable 05/28/21 07:31 Macrocytosis Not Reportable 05/28/21 07:31 Spherocytes Not Reportable 05/28/21 07:31 Pappenheimer Bodies Not Reportable 05/28/21 07:31 Sickle Cells Not Reportable 05/28/21 07:31 Target Cells Not Reportable 05/28/21 07:31 Tear Drop Cells Not Reportable 05/28/21 07:31 Ovalocytes Not Reportable 05/28/21 07:31 Helmet Cells Not Reportable 05/28/21 07:31 [place] Bodies Not Reportable 05/28/21 07:31 [place] Rings Not Reportable 05/28/21 07:31 [place] Cells Not Reportable 05/28/21 07:31 Bite Cells Not Reportable 05/28/21 07:31 Crenated Cell Not Reportable 05/28/21 07:31 Elliptocytes Not Reportable 05/28/21 07:31 Acanthocytes (Spur) Not Reportable 05/28/21 07:31 Rouleaux Not Reportable 05/28/21 07:31 Hemoglobin C Crystals Not Reportable 05/28/21 07:31 Schistocytes Not Reportable 05/28/21 07:31 Malaria parasites Not Reportable 05/28/21 07:31 Dick Bodies Not Reportable 05/28/21 07:31 Hem Pathologist Commnt No 05/28/21 07:31 D-Dimer 3584.01 ng/mlDDU (0-234) H 05/27/21 08:09 VBG pH 7.254 (7.320-7.420) L 05/24/21 02:09 Sodium 162 mmol/L (137-145) H* D 05/28/21 07:31 Potassium 3.7 mmol/L (3.6-5.0) 05/28/21 07:31 Chloride 125.8 mmol/L (98-107) H 05/28/21 07:31 Carbon Dioxide 23 mmol/L (22-30) 05/28/21 07:31 Anion Gap 17 mmol/L 05/28/21 07:31 BUN 72 mg/dL (9-20) H 05/28/21 07:31 Creatinine 1.6 mg/dL (0.8-1.3) H 05/28/21 07:31 Estimated GFR 55 ml/min 05/28/21 07:31 BUN/Creatinine Ratio 45 % 05/28/21 07:31 Glucose 131 mg/dL (75-100) H 05/28/21 07:31 POC Glucose 153 mg/dL (70-105) H 05/24/21 17:34 Lactic Acid 1.70 mmol/L (0.7-2.0) 05/24/21 09:39 Calcium 8.9 mg/dL (8.4-10.2) 05/28/21 07:31 Phosphorus 3.30 mg/dL (2.5-4.5) 05/28/21 07:31 Magnesium 3.00 mg/dL (1.7-2.3) H 05/28/21 07:31 Ferritin 2742.0 ng/mL (30.0-300.0) H 05/27/21 08:09 Total Bilirubin 0.90 mg/dL (0.1-1.2) 05/23/21 18:48 AST 27 units/L (5-40) 05/23/21 18:48 ALT 7 units/L (7-56) 05/23/21 18:48 Alkaline Phosphatase 69 units/L (35-129) 05/23/21 18:48 Ammonia 22.0 umol/L (25-60) L 05/23/21 18:48 Lactate Dehydrogenase 642 units/L (91-180) H 05/27/21 08:09 Troponin T < 0.010 ng/mL (0.00-0.029) 05/23/21 18:48 C-Reactive Protein 5.20 mg/dL (0.00-1.30) H 05/27/21 08:09 Total Protein 9.4 g/dL (6.3-8.2) H 05/23/21 18:48 Albumin 3.0 g/dL (3.9-5) L 05/23/21 18:48 Albumin/Globulin Ratio 0.5 % 05/23/21 18:48 Procalcitonin 0.31 ng/mL (<0.15) 05/23/21 18:48 TSH 1.150 mlU/mL (0.270-4.200) 05/23/21 18:48 Plasma/Serum Alcohol < 0.01 % (0-0.07) 05/23/21 18:48 Proteinase 3 (PR3) Ab <1.0 AI (<1.0) 05/24/21 20:57 Myeloperoxidase Ab <1.0 AI (<1.0) 05/24/21 20:57 Coronavirus (PCR) Negative (Negative) 05/26/21 08:41 Microbiology: Microbiology 05/23/21 19:42 Peripheral/Venous Blood Culture - Preliminary NO GROWTH AFTER 4 DAYS 05/23/21 19:50 Peripheral/Venous Blood Culture - Preliminary NO GROWTH AFTER 4 DAYS Heart/IV: Voiding Method Incontinent Active Medications - Current Medications Current Medications: Generic Name Dose Route Start Last Admin Trade Name Freq PRN Reason Stop Dose Admin Acetaminophen 650 mg 05/23/21 22:01 05/26/21 05:18 Acetaminophen 650 Mg Rect Supp [place] 650 mg Q6H PRN Administration Pain MILD(1-3)/Fever >100.5/LUCAS Dexamethasone 6 mg 05/27/21 10:00 05/28/21 11:59 Dexamethasone 4 Mg Tab PO 06/01/21 12:00 6 mg DAILY MIKE Administration Heparin Sodium (Porcine) 5,000 unit 05/24/21 06:00 05/28/21 06:03 Heparin 5,000 Unit/1 Ml Vial SUB-Q 5,000 unit Q8HR MIKE Administration Dextrose 1,000 mls @ 150 mls/hr 05/27/21 12:00 05/28/21 06:08 D5w IV 150 mls/hr DIRECT MIKE Administration Magnesium Hydroxide 30 ml 05/23/21 22:01 Magnesium Hydroxide (Mom) Oral Liqd Udc PO Q4H PRN Constipation Morphine Sulfate 2 mg 05/23/21 22:01 05/25/21 06:28 Morphine 2 Mg/1 Ml Inj IV 2 mg Q4H PRN Administration Pain, Moderate (4-6) Morphine Sulfate 4 mg 05/23/21 22:01 Morphine 4 Mg/1 Ml Inj IV Q4H PRN Pain , Severe (7-10) Sodium Chloride 10 ml 05/24/21 10:00 05/28/21 12:01 Sodium Chloride 0.9% 10 Ml Flush Syringe IV 10 ml BID MIKE Administration Sodium Chloride 10 ml 05/23/21 22:01 Sodium Chloride 0.9% 10 Ml Flush Syringe IV PRN PRN LINE FLUSH Nutrition/Malnutrition Assess - Dietary Evaluation Nutrition/Malnutrition Findings: Nutrition Notes Start: 05/25/21 09:33 Freq: Status: Active Protocol: Document 05/27/21 10:58 (Rec: 05/27/21 11:06 [id number]) Nutrition Notes Initial or Follow up Assessment Current Diagnosis Acute Kidney Injury Other Pertinent Diagnosis pneu, COVID PUI, encephalopathy Current Diet Renal Labs/Tests Na 166 K 5.5 BUN 102 Cr 1.8 Pertinent Medications D5 1/2 NS at 125 ml/hr Kionex Height 5 ft 11 in Weight 77.11 kg [place] Body Weight (kg) 78.18 BMI 23.7 Weight Status Appropriate Subjective/Other Information RN reports pt intakes remain poor, 25%. He had not gotten ONS yet. Percent of energy/protein needs met: 26%/21% Burn Absent Trauma Absent Current % PO Poor (25-49%) Minimum of two criteria No Energy Intake (non-severe) <75% Estimated Energy Requirement >7 days #1 Nutrition Diagnosis Inadequate oral intake Diagnosis Progress(for reassessment Continues documentation) Is patient on ventilator? No Is Patient Ambulatory and/or Out of Bed No REE-([facility]-confined to bed) 1964.124 Calculation Used for Recommendations [facility] Additional Notes Protein: (>1.2g/kg) >93g Fluid: 1 ml/kcal or per MD Nutrition Intervention Change Diet Order: continue Nutrition Support: Recommend TF Add Supplement/Snack (indicate name/kcal Nepro BID /protein ) Provides kCal: 850 Provides Protein (gm) 38 Goal #1 Meet at least 75% of protein and kcal needs via PO and ONS intakes Anticipated Discharge Needs: Renal Follow-Up By: 05/29/21 Additional Comments F/u: intakes, need for TF - Attestation Statement I have reviewed and agreed w/ Malnutrition eval & tx plan: Yes
[2021-05-29] MEDS: DEXTROSE 5% IN WATER 1,000 ML IV SCH (03:37)
[2021-05-29] MEDS: FREE WATER PO SCH ×8 (03:40→21:30)
[2021-05-29] MEDS ORDERED: VANCOMYCIN/NS 1 GM/250 ML 1 GM/250 ML BAG IV ONE (06:11)
[2021-05-29] MEDS: ACETAMINOPHEN 650 MG RECT SUPP PR PRN (06:41)
[2021-05-29] MEDS: HEPARIN 5,000 UNIT/1 ML VIAL SUB-Q SCH ×3 (06:41→22:00)
[2021-05-29] MEDS ORDERED: VANCOMYCIN 1,500 MG in SODIUM CHLORIDE 0.9% 500 ML 500 ML IV ONE ×2 (07:00→07:05)
[2021-05-29] MEDS ORDERED: LACTATED RINGERS 1000 ML IV SOLN IV ONE (07:05)
[2021-05-29] MEDS ORDERED: LACTATED RINGERS 1,000 ML IV SCH (07:45)
--- NOTE | 2021-05-29 07:56 | XRay Report ---
CHEST - 1 VIEW INDICATION: Sepsis COMPARISON: 05/23/2021 FINDINGS: SUPPORT DEVICES: New Dobbhoff tube with tip in the distal stomach. The tube should be advanced at le ast 5-10 cm into the duodenum. HEART: Stable cardiomediastinal silhouette. LUNGS/PLEURA: Stable mild patchy multifocal airspace disease throughout the lungs. ADDITIONAL FINDINGS: None. IMPRESSION: Dobbhoff tube as above. Otherwise unchanged exam. Signer Name: Demian Liriano MD Signed: 05/29/2021 7:51 AM Workstation Name: [id number]
[2021-05-29] MEDS ORDERED: LACTATED RINGERS 1,000 ML IV ONE (08:00)
[2021-05-29] MEDS ORDERED: PIPERACIL/TAZOBACTA 4.5/NS 100 4.5 GM/100 ML VIAL IV ONE (08:00)
[2021-05-29] MEDS ORDERED: VANCOMYCIN PHARMACY TO DOSE IV SCH (08:00)
[2021-05-29 08:07] LABS: Hematocrit 38.7 % (35.5-45.6); Hemoglobin 12.1 gm/dl (11.8-15.2); Mean Corpuscular HGB Conc 31 % (32-34); Mean Corpuscular Volume 87 fl (84-94); Platelet Count 185 K/mm3 (140-440); Red Blood Count 4.44 M/mm3 (3.65-5.03)
[2021-05-29 08:32] LABS: BUN/Creatinine Ratio 41; Blood Urea Nitrogen 45 mg/dL (9-20); Calcium 8.7 mg/dL (8.4-10.2); Hemolysis Index 25
[2021-05-29] MEDS ORDERED: CEFEPIME/NS 2 GM/100 ML 2 GM/100 ML BAG IV SCH (10:00)
[2021-05-29] MEDS: DEXAMETHASONE 4 MG TAB PO SCH (12:01)
[2021-05-29 12:59] LABS: Band Neutrophils # (Manual) 0.3 K/mm3; Platelet Estimate Consistent w Auto; Total Cells Counted 100
[2021-05-29] MEDS: CEFEPIME/NS 2 GM/100 ML 2 GM/100 ML BAG IV SCH ×2 (13:58→22:00)
--- NOTE | 2021-05-29 14:40 | Progress Note ---
Assessment and Plan Assessment and plan: #Acute hypoxic respiratory failure-worsened -Increased from 3 L nasal cannula to BiPAP; ordering consult for pulmonary -D-dimer greater than 10,000 (on presentation) -VQ scan low probability for PE -continue steroids for now -will continue to monitor #Severe sepsis -Blood cultures NGTD x1 day; continue on vancomycin and cefepime. Added Flagyl -Likely secondary to Covid pneumonia -repeat COVID-19 PCR negative -Reconsulted infectious disease; pending rec #Lactic acidosis-resolved -Lactate 2.3 -> 1.70 #Acute metabolic encephalopathy -CT head negative, ammonia 22 -Patient cooperative follows commands; however, patient is still not at baseline -Clinical improvement in mentation seen with improvement of hypernatremia on 05/28/2021. Discussed with patient's daughter to determine better understanding of patient's baseline mental status -Acute decline in mental status on 05/29/2021; will continue to monitor and see if improvement comes with improvement in oxygenation #ANGELES -Creatinine 1.6 -Likely prerenal secondary to volume depletion after several days of no oral intake -Renal ultrasound unremarkable -Nephrology consulted, recs appreciated -will avoid nephrotoxic agents #Hyperkalemia-resolved -will continue to monitor #Pneumonia-resolved -Completed azithromycin and Rocephin #COVID-19 infection -Diagnosed on 05/11 -D-dimer greater than 10,000, ferritin 2000, LDH 577, CRP 8.8 -ID consulted, assistance appreciated -Continue steroids x10 days and vitamins #Hypernatremia-improving - Na 174-->162-->148 -continue D5 half-normal saline -Continue free water flushes (400 cc every 3 hours) per nephrology recommendations -Likely secondary to almost 2 weeks no oral intake -Consulted nephrology (appreciate recs) Disposition Plan: Continue medical management History Interval history: Patient spiked fever to 102.1 and was tachycardic to 143. Hospitalist Physical - Constitutional Vitals: Temp Pulse Resp BP Pulse Ox 97.9 F 119 H 20 140/77 92 05/29/21 13:21 05/29/21 13:21 05/29/21 13:21 05/29/21 13:21 05/29/21 13:21 General appearance: Present: mild distress, cachectic - EENT Eyes: Present: PERRL, EOM intact ENT: hearing intact, clear oral mucosa - Neck Neck: Present: supple, normal ROM - Respiratory Respiratory effort: labored, accessory muscle use Respiratory: bilateral: rhonchi, negative: CTA, diminished, rales, wheezing - Cardiovascular Heart rate: 144 Rhythm: regular Heart Sounds: Present: S1 & S2 - Extremities Extremities: no ischemia, pulses intact, pulses symmetrical, No edema, normal temperature, normal color Peripheral Pulses: within normal limits - Abdominal General gastrointestinal: soft, non-tender, non-distended, normal bowel sounds - Integumentary Integumentary: Present: clear, warm, dry - Psychiatric Psychiatric: other (unable to obtain exam due to clinical status) - Neurologic Neurologic: other (unable to determine given clinical status) - Allied Health Allied health notes reviewed: nursing HEART Score - HEART Score History: Moderately suspicious EKG: Non-specific Age: 45-65 Risk factors: 1-2 risk factors Troponin: Troponin T < 0.010 ng/mL (0.00-0.029) 05/23/21 18:48 - Critical Actions Critical Actions: 0-3 pts:0.9-1.7%risk of adverse cardiac event.Candidate for discharge Results - Labs CBC & Chem 7: 05/29/21 06:40 05/29/21 06:40 Labs: Laboratory Last Values WBC 14.1 K/mm3 (4.5-11.0) H 05/29/21 06:40 RBC 4.44 M/mm3 (3.65-5.03) 05/29/21 06:40 Hgb 12.1 gm/dl (11.8-15.2) 05/29/21 06:40 Hct 38.7 % (35.5-45.6) 05/29/21 06:40 MCV 87 fl (84-94) 05/29/21 06:40 MCH 27 pg (28-32) L 05/29/21 06:40 MCHC 31 % (32-34) L 05/29/21 06:40 RDW 15.0 % (13.2-15.2) 05/29/21 06:40 Plt Count 185 K/mm3 (140-440) 05/29/21 06:40 Add Manual Diff Complete 05/29/21 06:40 Total Counted 100 05/29/21 06:40 Seg Neuts % (Manual) 85.0 % (40.0-70.0) H 05/29/21 06:40 Band Neutrophils % 2.0 % 05/29/21 06:40 Lymphocytes % (Manual) 9.0 % (13.4-35.0) L 05/29/21 06:40 Monocytes % (Manual) 4.0 % (0.0-7.3) 05/29/21 06:40 Nucleated RBC % 1.0 % (0.0-0.9) H 05/29/21 06:40 Seg Neutrophils # Man 12.0 K/mm3 (1.8-7.7) H 05/29/21 06:40 Band Neutrophils # 0.3 K/mm3 05/29/21 06:40 Lymphocytes # (Manual) 1.3 K/mm3 (1.2-5.4) 05/29/21 06:40 Abs React Lymphs (Man) 0.0 K/mm3 05/29/21 06:40 Monocytes # (Manual) 0.6 K/mm3 (0.0-0.8) 05/29/21 06:40 Eosinophils # (Manual) 0.0 K/mm3 (0.0-0.4) 05/29/21 06:40 Basophils # (Manual) 0.0 K/mm3 (0.0-0.1) 05/29/21 06:40 Metamyelocytes # 0.0 K/mm3 05/29/21 06:40 Myelocytes # 0.0 K/mm3 05/29/21 06:40 Promyelocytes # 0.0 K/mm3 05/29/21 06:40 Blast Cells # 0.0 K/mm3 05/29/21 06:40 WBC Morphology Not Reportable 05/29/21 06:40 Hypersegmented Neuts Not Reportable 05/29/21 06:40 Hyposegmented Neuts Not Reportable 05/29/21 06:40 Hypogranular Neuts Not Reportable 05/29/21 06:40 Smudge Cells Not Reportable 05/29/21 06:40 Toxic Granulation Not Reportable 05/29/21 06:40 Toxic Vacuolation Not Reportable 05/29/21 06:40 Dohle Bodies Not Reportable 05/29/21 06:40 Pelger-Huet Anomaly Not Reportable 05/29/21 06:40 Kaci Rods Not Reportable 05/29/21 06:40 Platelet Estimate Consistent w auto 05/29/21 06:40 Clumped Platelets Not Reportable 05/29/21 06:40 Plt Clumps, EDTA Not Reportable 05/29/21 06:40 Large Platelets Not Reportable 05/29/21 06:40 Giant Platelets Not Reportable 05/29/21 06:40 Platelet Satelliting Not Reportable 05/29/21 06:40 Plt Morphology Comment Not Reportable 05/29/21 06:40 RBC Morphology Not Reportable 05/29/21 06:40 Dimorphic RBCs Not Reportable 05/29/21 06:40 Polychromasia Not Reportable 05/29/21 06:40 Hypochromasia Not Reportable 05/29/21 06:40 Poikilocytosis Not Reportable 05/29/21 06:40 Anisocytosis Not Reportable 05/29/21 06:40 Microcytosis Not Reportable 05/29/21 06:40 Macrocytosis Not Reportable 05/29/21 06:40 Spherocytes Not Reportable 05/29/21 06:40 Pappenheimer Bodies Not Reportable 05/29/21 06:40 Sickle Cells Not Reportable 05/29/21 06:40 Target Cells Not Reportable 05/29/21 06:40 Tear Drop Cells Not Reportable 05/29/21 06:40 Ovalocytes Not Reportable 05/29/21 06:40 Helmet Cells Not Reportable 05/29/21 06:40 [place] Bodies Not Reportable 05/29/21 06:40 [place] Rings Not Reportable 05/29/21 06:40 [place] Cells Not Reportable 05/29/21 06:40 Bite Cells Not Reportable 05/29/21 06:40 Crenated Cell Not Reportable 05/29/21 06:40 Elliptocytes Not Reportable 05/29/21 06:40 Acanthocytes (Spur) Not Reportable 05/29/21 06:40 Rouleaux Not Reportable 05/29/21 06:40 Hemoglobin C Crystals Not Reportable 05/29/21 06:40 Schistocytes Not Reportable 05/29/21 06:40 Malaria parasites Not Reportable 05/29/21 06:40 Dick Bodies Not Reportable 05/29/21 06:40 Hem Pathologist Commnt No 05/29/21 06:40 D-Dimer 3584.01 ng/mlDDU (0-234) H 05/27/21 08:09 VBG pH 7.254 (7.320-7.420) L 05/24/21 02:09 Sodium 148 mmol/L (137-145) H D 05/29/21 06:40 Potassium 4.0 mmol/L (3.6-5.0) 05/29/21 06:40 Chloride 111.3 mmol/L (98-107) H 05/29/21 06:40 Carbon Dioxide 20 mmol/L (22-30) L 05/29/21 06:40 Anion Gap 21 mmol/L 05/29/21 06:40 BUN 45 mg/dL (9-20) H 05/29/21 06:40 Creatinine 1.1 mg/dL (0.8-1.3) 05/29/21 06:40 Estimated GFR > 60 ml/min 05/29/21 06:40 BUN/Creatinine Ratio 41 % 05/29/21 06:40 Glucose 82 mg/dL (75-100) 05/29/21 06:40 POC Glucose 153 mg/dL (70-105) H 05/24/21 17:34 Lactic Acid 1.70 mmol/L (0.7-2.0) 05/24/21 09:39 Calcium 8.7 mg/dL (8.4-10.2) 05/29/21 06:40 Phosphorus 2.10 mg/dL (2.5-4.5) L D 05/29/21 06:40 Magnesium 2.20 mg/dL (1.7-2.3) 05/29/21 06:40 Ferritin 2742.0 ng/mL (30.0-300.0) H 05/27/21 08:09 Total Bilirubin 0.90 mg/dL (0.1-1.2) 05/23/21 18:48 AST 27 units/L (5-40) 05/23/21 18:48 ALT 7 units/L (7-56) 05/23/21 18:48 Alkaline Phosphatase 69 units/L (35-129) 05/23/21 18:48 Ammonia 22.0 umol/L (25-60) L 05/23/21 18:48 Lactate Dehydrogenase 642 units/L (91-180) H 05/27/21 08:09 Troponin T < 0.010 ng/mL (0.00-0.029) 05/23/21 18:48 C-Reactive Protein 5.20 mg/dL (0.00-1.30) H 05/27/21 08:09 Total Protein 9.4 g/dL (6.3-8.2) H 05/23/21 18:48 Albumin 3.0 g/dL (3.9-5) L 05/23/21 18:48 Albumin/Globulin Ratio 0.5 % 05/23/21 18:48 Procalcitonin 0.31 ng/mL (<0.15) 05/23/21 18:48 TSH 1.150 mlU/mL (0.270-4.200) 05/23/21 18:48 Plasma/Serum Alcohol < 0.01 % (0-0.07) 05/23/21 18:48 Proteinase 3 (PR3) Ab <1.0 AI (<1.0) 05/24/21 20:57 Myeloperoxidase Ab <1.0 AI (<1.0) 05/24/21 20:57 Coronavirus (PCR) Negative (Negative) 05/26/21 08:41 Blood Type A POSITIVE 05/29/21 08:15 Antibody Screen Negative 05/29/21 08:15 Microbiology: Microbiology 05/29/21 06:40 Peripheral/Venous Blood Culture - Preliminary Culture in Progress 05/29/21 08:16 Peripheral/Venous Blood Culture - Preliminary Culture in Progress 05/23/21 19:50 Peripheral/Venous Blood Culture - Final NO GROWTH AFTER 5 DAYS 05/23/21 19:42 Peripheral/Venous Blood Culture - Final NO GROWTH AFTER 5 DAYS Heart/IV: Voiding Method Condom Catheter Active Medications - Current Medications Current Medications: Generic Name Dose Route Start Last Admin Trade Name Freq PRN Reason Stop Dose Admin Acetaminophen 650 mg 05/29/21 07:05 Acetaminophen 325 Mg Tab PO Q6H PRN Pain, Mild (1-3) Dexamethasone 6 mg 05/27/21 10:00 05/29/21 12:01 Dexamethasone 4 Mg Tab PO 06/01/21 12:00 6 mg DAILY MIKE Administration Heparin Sodium (Porcine) 5,000 unit 05/24/21 06:00 05/29/21 13:58 Heparin 5,000 Unit/1 Ml Vial SUB-Q 5,000 unit Q8HR MIKE Administration Dextrose 1,000 mls @ 150 mls/hr 05/27/21 12:00 05/29/21 03:37 D5w IV 150 mls/hr DIRECT MIKE Administration Cefepime HCl 2 gm in 100 mls @ 200 mls/hr 05/29/21 14:00 05/29/21 13:58 Cefepime/Ns 2 Gm/100 Ml IV 200 mls/hr Q8HR MIKE Administration Protocol Vancomycin HCl 1 gm in 250 mls @ 166.667 mls/hr 05/30/21 00:00 Vancomycin/Ns 1 Gm/250 Ml IV Q12H MIKE Magnesium Hydroxide 30 ml 05/23/21 22:01 Magnesium Hydroxide (Mom) Oral Liqd Udc PO Q4H PRN Constipation Morphine Sulfate 2 mg 05/23/21 22:01 05/25/21 06:28 Morphine 2 Mg/1 Ml Inj IV 2 mg Q4H PRN Administration Pain, Moderate (4-6) Morphine Sulfate 4 mg 05/23/21 22:01 Morphine 4 Mg/1 Ml Inj IV Q4H PRN Pain , Severe (7-10) Sodium Chloride 10 ml 05/24/21 10:00 05/29/21 11:57 Sodium Chloride 0.9% 10 Ml Flush Syringe IV 10 ml BID MIKE Administration Sodium Chloride 10 ml 05/23/21 22:01 Sodium Chloride 0.9% 10 Ml Flush Syringe IV PRN PRN LINE FLUSH Nutrition/Malnutrition Assess - Dietary Evaluation Nutrition/Malnutrition Findings: Nutrition Notes Start: 05/25/21 09:33 Freq: Status: Active Protocol: Document 05/27/21 10:58 (Rec: 05/27/21 11:06 [id number]) Nutrition Notes Initial or Follow up Assessment Current Diagnosis Acute Kidney Injury Other Pertinent Diagnosis pneu, COVID PUI, encephalopathy Current Diet Renal Labs/Tests Na 166 K 5.5 BUN 102 Cr 1.8 Pertinent Medications D5 1/2 NS at 125 ml/hr Kionex Height 5 ft 11 in Weight 77.11 kg [place] Body Weight (kg) 78.18 BMI 23.7 Weight Status Appropriate Subjective/Other Information RN reports pt intakes remain poor, 25%. He had not gotten ONS yet. Percent of energy/protein needs met: 26%/21% Burn Absent Trauma Absent Current % PO Poor (25-49%) Minimum of two criteria No Energy Intake (non-severe) <75% Estimated Energy Requirement >7 days #1 Nutrition Diagnosis Inadequate oral intake Diagnosis Progress(for reassessment Continues documentation) Is patient on ventilator? No Is Patient Ambulatory and/or Out of Bed No REE-([facility]-confined to bed) 1964.124 Calculation Used for Recommendations [facility] Additional Notes Protein: (>1.2g/kg) >93g Fluid: 1 ml/kcal or per MD Nutrition Intervention Change Diet Order: continue Nutrition Support: Recommend TF Add Supplement/Snack (indicate name/kcal Nepro BID /protein ) Provides kCal: 850 Provides Protein (gm) 38 Goal #1 Meet at least 75% of protein and kcal needs via PO and ONS intakes Anticipated Discharge Needs: Renal Follow-Up By: 05/29/21 Additional Comments F/u: intakes, need for TF - Attestation Statement I have reviewed and agreed w/ Malnutrition eval & tx plan: Yes
--- NOTE | 2021-05-29 16:36 | XRay Report ---
CHEST 1 VIEW 05/29/2021 4:20 PM INDICATION / CLINICAL INFORMATION: Acute respiratory distress. COMPARISON: Earlier today at 7:33 AM. FINDINGS: SUPPORT DEVICES: There is a feeding tube coursing into the stomach with the tip not seen. HEART / MEDIASTINUM: Unchanged. LUNGS / PLEURA: Moderate diffuse bilateral parenchymal opacities, more prominent in the lower lung zo reinier and greater on the left than the right, have not changed significantly. No significant pleural ef fusion. No pneumothorax. ADDITIONAL FINDINGS: No significant additional findings. IMPRESSION: No significant interval change since earlier today. Signer Name: Speedy Bob MD Signed: 05/29/2021 4:32 PM Workstation Name: [id number]
[2021-05-29] MEDS ORDERED: ACETAMINOPHEN 650 MG RECT SUPP PR ONE (17:00)
--- NOTE | 2021-05-29 17:34 | Progress Note ---
Assessment and Plan Impression: * Acute kidney injury secondary to ATN likely related to COVID 19 * Acute hypoxic respiratory failure secondary to COVID 19 PNA * Azotemia * Hyperkalemia * Metabolic acidosis * Hypernatremia Plan: * Continue D5W * S/p NG tube placement - free water replacement 400 ml Q3h. * Patient is s/p kayexelate daily x 3 days, now with K at goal * Keep MAP>65 * Management of COVID 19 PNA to primary team/ID * Dose medications for renal function * AM labs * Renal diet * Patient appeared in mild distress, advised his nurse to call [employer]/MET team for evaluation as may need escalation of care to IMCU/ICU. * Prognosis guarded Subjective Date of service: 05/29/21 Principal diagnosis: Pneumonia Interval history: Nursing, interdisciplinary and consult notes were reviewed Vitals, input and output, medications and labs were reviewed Remains on 3 L O2 UOP 0.6 L thus far today Appeared in mild distress during visit Objective - Exam Narrative Exam: General: Mild distress Neck: Supple, no JVD. NG tube noted. Chest: Clear to auscultation bilaterally Heart: RRR, S1 and S2, no pericardial rub Abdomen: Soft, nontender, no renal bruit Extremity: No peripheral cyanosis, edema Neurological: Not following commands Dermatology: No skin rash Psych: Unable to assess Musculoskeletal: No joint effusion - Vital Signs Vital signs: Vital Signs - 12hr 05/29/21 05/29/21 05/29/21 05:54 06:18 11:45 Temperature 102.1 F H Pulse Rate 143 H Respiratory 24 Rate Blood Pressure 143/67 O2 Sat by Pulse 20 L 97 95 Oximetry 05/29/21 05/29/21 13:21 17:13 Temperature 97.9 F Pulse Rate 119 H 134 H Respiratory 20 47 H Rate Blood Pressure 140/77 O2 Sat by Pulse 92 96 Oximetry - Lab 05/29/21 06:40 05/29/21 06:40 Most recent lab results Calcium 8.7 mg/dL (8.4-10.2) 05/29/21 06:40 Phosphorus 2.10 mg/dL (2.5-4.5) L D 05/29/21 06:40 Magnesium 2.20 mg/dL (1.7-2.3) 05/29/21 06:40 Medications & Allergies - Medications Allergies/Adverse Reactions: Allergies No Known Allergies Allergy (Unverified 02/12/17 15:47) Active Medications: Generic Name Dose Route Start Last Admin Trade Name Freq PRN Reason Stop Dose Admin Acetaminophen 650 mg 05/29/21 07:05 Acetaminophen 325 Mg Tab PO Q6H PRN Pain, Mild (1-3) Dexamethasone 6 mg 05/27/21 10:00 05/29/21 12:01 Dexamethasone 4 Mg Tab PO 06/01/21 12:00 6 mg DAILY MIKE Administration Heparin Sodium (Porcine) 5,000 unit 05/24/21 06:00 05/29/21 13:58 Heparin 5,000 Unit/1 Ml Vial SUB-Q 5,000 unit Q8HR MIKE Administration Dextrose 1,000 mls @ 150 mls/hr 05/27/21 12:00 05/29/21 03:37 D5w IV 150 mls/hr DIRECT MIKE Administration Cefepime HCl 2 gm in 100 mls @ 200 mls/hr 05/29/21 14:00 05/29/21 13:58 Cefepime/Ns 2 Gm/100 Ml IV 200 mls/hr Q8HR MIKE Administration Protocol Vancomycin HCl 1 gm in 250 mls @ 166.667 mls/hr 05/30/21 00:00 Vancomycin/Ns 1 Gm/250 Ml IV Q12H MIKE Metronidazole 500 mg in 100 mls @ 100 mls/hr 05/29/21 16:00 Flagyl 500 Mg/100 Ml IV Q8H MIKE Protocol Magnesium Hydroxide 30 ml 05/23/21 22:01 Magnesium Hydroxide (Mom) Oral Liqd Udc PO Q4H PRN Constipation Morphine Sulfate 2 mg 05/23/21 22:01 05/25/21 06:28 Morphine 2 Mg/1 Ml Inj IV 2 mg Q4H PRN Administration Pain, Moderate (4-6) Morphine Sulfate 4 mg 05/23/21 22:01 Morphine 4 Mg/1 Ml Inj IV Q4H PRN Pain , Severe (7-10) Sodium Chloride 10 ml 05/24/21 10:00 05/29/21 11:57 Sodium Chloride 0.9% 10 Ml Flush Syringe IV 10 ml BID MIKE Administration Sodium Chloride 10 ml 05/23/21 22:01 Sodium Chloride 0.9% 10 Ml Flush Syringe IV PRN PRN LINE FLUSH
[2021-05-29] MEDS: metroNIDAZOLE/NS 500 MG/100 ML 500 MG/100 ML BAG IV SCH (18:27)
[2021-05-30] MEDS: FREE WATER PO SCH ×9 (01:00→22:41)
[2021-05-30] MEDS: VANCOMYCIN/NS 1 GM/250 ML 1 GM/250 ML BAG IV SCH ×2 (01:00→17:00)
[2021-05-30 01:28] LABS: Bilirubin,Urine NEG (Negative); Blood,Urine MOD (Negative); Color,Urine Amber (Yellow); Mucus,Urine FEW /HPF
[2021-05-30 06:35] LABS: BUN/Creatinine Ratio 31; Blood Urea Nitrogen 40 mg/dL (9-20); Calcium 8.3 mg/dL (8.4-10.2); Hemolysis Index 15
[2021-05-30] MEDS: CEFEPIME/NS 2 GM/100 ML 2 GM/100 ML BAG IV SCH ×3 (07:20→22:30)
[2021-05-30] MEDS: HEPARIN 5,000 UNIT/1 ML VIAL SUB-Q SCH ×3 (07:21→22:31)
[2021-05-30] MEDS: DEXAMETHASONE 4 MG TAB PO SCH (10:35)
--- NOTE | 2021-05-30 11:52 | Progress Note ---
Assessment and Plan Assessment and plan: #Acute hypoxic respiratory failure-worsened -Continuing on BiPAP; pending repeat ABG -Pulmonology consulted; appreciate recs -D-dimer greater than 10,000 (on presentation) -VQ scan low probability for PE -will continue to monitor #Severe sepsis -Blood cultures NGTD x2 day; continue on vancomycin and cefepime and Flagyl. If blood cultures are negative for another day, vancomycin and Flagyl will be discontinued on 05/31/2021 -UA revealing 12 WBCs. Pending urine culture and will continue cefepime. Repeat chest x-ray was negative. -Likely secondary to Covid pneumonia -repeat COVID-19 PCR negative -Reconsulted infectious disease; pending rec #Lactic acidosis-resolved -Lactate 2.3 -> 1.70 #Acute metabolic encephalopathy-improved -CT head negative, ammonia 22 -Patient cooperative follows commands; however, patient is still not at baseline -Clinical improvement in mentation seen with improvement of hypernatremia on 05/28/2021. Discussed with patient's daughter to determine better understanding of patient's baseline mental status -Acute decline in mental status on 05/29/2021; will continue to monitor and see if improvement comes with improvement in oxygenation -Improvement in mental status on 05/30/2021; mental decline was likely due to acute hypoxia that was resolved with initiation of BiPAP therapy #ANGELES-improving -Creatinine 1.3 -Likely prerenal secondary to volume depletion after several days of no oral intake -Renal ultrasound unremarkable -Nephrology consulted, recs appreciated -will avoid nephrotoxic agents #Hyperkalemia-resolved -will continue to monitor #Pneumonia-resolved -Completed azithromycin and Rocephin -Repeat chest x-ray on 05/29/2021 was negative #COVID-19 infection -Diagnosed on 05/11 -D-dimer greater than 10,000, ferritin 2000, LDH 577, CRP 8.8 -ID consulted, assistance appreciated -Continue steroids x10 days and vitamins (steroids end on 06/06/2021) #Hypernatremia - Na 174-->162-->148-->150 -continue D5 half-normal saline -Continue free water flushes (400 cc every 3 hours) per nephrology recommendations -Likely secondary to almost 2 weeks no oral intake -Consulted nephrology (appreciate recs) Disposition Plan: Continue medical med History Interval history: Patient was emergently placed on BiPAP due to respiratory distress. Hospitalist Physical - Constitutional Vitals: Temp Pulse Resp BP Pulse Ox 98.8 F 106 H 20 114/73 99 05/30/21 07:12 05/30/21 07:12 05/30/21 07:12 05/30/21 07:12 05/30/21 07:12 General appearance: Present: no acute distress, cachectic - EENT Eyes: Present: PERRL, EOM intact ENT: hearing intact, clear oral mucosa - Neck Neck: Present: supple, normal ROM - Respiratory Respiratory effort: normal Respiratory: bilateral: diminished, rhonchi, negative: rales, wheezing Details: Currently on BiPAP - Cardiovascular Rhythm: regular Heart Sounds: Present: S1 & S2 - Extremities Extremities: no ischemia, pulses intact, pulses symmetrical, No edema, normal temperature, normal color Peripheral Pulses: within normal limits - Abdominal General gastrointestinal: soft, non-tender, non-distended, normal bowel sounds - Integumentary Integumentary: Present: clear, warm, dry - Psychiatric Psychiatric: appropriate mood/affect, cooperative - Neurologic Neurologic: CNII-XII intact, moves all extremities - Allied Health Allied health notes reviewed: nursing HEART Score - HEART Score EKG: Non-specific Age: 45-65 Risk factors: 1-2 risk factors Troponin: Troponin T < 0.010 ng/mL (0.00-0.029) 05/23/21 18:48 - Critical Actions Critical Actions: 0-3 pts:0.9-1.7%risk of adverse cardiac event.Candidate for discharge Results - Labs CBC & Chem 7: 05/29/21 06:40 05/30/21 06:06 Labs: Laboratory Last Values WBC 14.1 K/mm3 (4.5-11.0) H 05/29/21 06:40 RBC 4.44 M/mm3 (3.65-5.03) 05/29/21 06:40 Hgb 12.1 gm/dl (11.8-15.2) 05/29/21 06:40 Hct 38.7 % (35.5-45.6) 05/29/21 06:40 MCV 87 fl (84-94) 05/29/21 06:40 MCH 27 pg (28-32) L 05/29/21 06:40 MCHC 31 % (32-34) L 05/29/21 06:40 RDW 15.0 % (13.2-15.2) 05/29/21 06:40 Plt Count 185 K/mm3 (140-440) 05/29/21 06:40 Add Manual Diff Complete 05/29/21 06:40 Total Counted 100 05/29/21 06:40 Seg Neuts % (Manual) 85.0 % (40.0-70.0) H 05/29/21 06:40 Band Neutrophils % 2.0 % 05/29/21 06:40 Lymphocytes % (Manual) 9.0 % (13.4-35.0) L 05/29/21 06:40 Monocytes % (Manual) 4.0 % (0.0-7.3) 05/29/21 06:40 Nucleated RBC % 1.0 % (0.0-0.9) H 05/29/21 06:40 Seg Neutrophils # Man 12.0 K/mm3 (1.8-7.7) H 05/29/21 06:40 Band Neutrophils # 0.3 K/mm3 05/29/21 06:40 Lymphocytes # (Manual) 1.3 K/mm3 (1.2-5.4) 05/29/21 06:40 Abs React Lymphs (Man) 0.0 K/mm3 05/29/21 06:40 Monocytes # (Manual) 0.6 K/mm3 (0.0-0.8) 05/29/21 06:40 Eosinophils # (Manual) 0.0 K/mm3 (0.0-0.4) 05/29/21 06:40 Basophils # (Manual) 0.0 K/mm3 (0.0-0.1) 05/29/21 06:40 Metamyelocytes # 0.0 K/mm3 05/29/21 06:40 Myelocytes # 0.0 K/mm3 05/29/21 06:40 Promyelocytes # 0.0 K/mm3 05/29/21 06:40 Blast Cells # 0.0 K/mm3 05/29/21 06:40 WBC Morphology Not Reportable 05/29/21 06:40 Hypersegmented Neuts Not Reportable 05/29/21 06:40 Hyposegmented Neuts Not Reportable 05/29/21 06:40 Hypogranular Neuts Not Reportable 05/29/21 06:40 Smudge Cells Not Reportable 05/29/21 06:40 Toxic Granulation Not Reportable 05/29/21 06:40 Toxic Vacuolation Not Reportable 05/29/21 06:40 Dohle Bodies Not Reportable 05/29/21 06:40 Pelger-Huet Anomaly Not Reportable 05/29/21 06:40 Kaci Rods Not Reportable 05/29/21 06:40 Platelet Estimate Consistent w auto 05/29/21 06:40 Clumped Platelets Not Reportable 05/29/21 06:40 Plt Clumps, EDTA Not Reportable 05/29/21 06:40 Large Platelets Not Reportable 05/29/21 06:40 Giant Platelets Not Reportable 05/29/21 06:40 Platelet Satelliting Not Reportable 05/29/21 06:40 Plt Morphology Comment Not Reportable 05/29/21 06:40 RBC Morphology Not Reportable 05/29/21 06:40 Dimorphic RBCs Not Reportable 05/29/21 06:40 Polychromasia Not Reportable 05/29/21 06:40 Hypochromasia Not Reportable 05/29/21 06:40 Poikilocytosis Not Reportable 05/29/21 06:40 Anisocytosis Not Reportable 05/29/21 06:40 Microcytosis Not Reportable 05/29/21 06:40 Macrocytosis Not Reportable 05/29/21 06:40 Spherocytes Not Reportable 05/29/21 06:40 Pappenheimer Bodies Not Reportable 05/29/21 06:40 Sickle Cells Not Reportable 05/29/21 06:40 Target Cells Not Reportable 05/29/21 06:40 Tear Drop Cells Not Reportable 05/29/21 06:40 Ovalocytes Not Reportable 05/29/21 06:40 Helmet Cells Not Reportable 05/29/21 06:40 [place] Bodies Not Reportable 05/29/21 06:40 [place] Rings Not Reportable 05/29/21 06:40 [place] Cells Not Reportable 05/29/21 06:40 Bite Cells Not Reportable 05/29/21 06:40 Crenated Cell Not Reportable 05/29/21 06:40 Elliptocytes Not Reportable 05/29/21 06:40 Acanthocytes (Spur) Not Reportable 05/29/21 06:40 Rouleaux Not Reportable 05/29/21 06:40 Hemoglobin C Crystals Not Reportable 05/29/21 06:40 Schistocytes Not Reportable 05/29/21 06:40 Malaria parasites Not Reportable 05/29/21 06:40 Dick Bodies Not Reportable 05/29/21 06:40 Hem Pathologist Commnt No 05/29/21 06:40 D-Dimer 3584.01 ng/mlDDU (0-234) H 05/27/21 08:09 ABG pH 7.505 (7.320-7.450) H 05/29/21 17:58 POC ABG pCO2 30.3 mmHg (32.0-48.0) L 05/29/21 17:58 POC ABG pO2 128.1 mmHg (83-108) H 05/29/21 17:58 POC ABG HCO3 23.4 05/29/21 17:58 ABG O2 Saturation 98.6 (0-100) 05/29/21 17:58 POC ABG Base Excess 1.0 05/29/21 17:58 ABG Hemoglobin 11.9 (12.0-17.5) L 05/29/21 17:58 ABG Oxyhemoglobin 97.1 (94-98) 05/29/21 17:58 ABG Methemoglobin 0.3 (0.0-1.5) 05/29/21 17:58 ABG Sodium 145.0 mmol/L (136.0-145.0) 05/29/21 17:58 ABG Potassium 3.5 mmol/L (3.40-4.50) 05/29/21 17:58 ABG Chloride 113.0 mmol/L (98-107) H 05/29/21 17:58 ABG Glucose 110 mg/dL (65-95) H 05/29/21 17:58 VBG pH 7.254 (7.320-7.420) L 05/24/21 02:09 Carboxyhemoglobin 1.2 (0.5-1.5) 05/29/21 17:58 FiO2 % 80.0 05/29/21 17:58 Sodium 150 mmol/L (137-145) H 05/30/21 06:06 Potassium 4.3 mmol/L (3.6-5.0) 05/30/21 06:06 Chloride 117.6 mmol/L (98-107) H 05/30/21 06:06 Carbon Dioxide 23 mmol/L (22-30) 05/30/21 06:06 Anion Gap 14 mmol/L 05/30/21 06:06 BUN 40 mg/dL (9-20) H 05/30/21 06:06 Creatinine 1.3 mg/dL (0.8-1.3) 05/30/21 06:06 Estimated GFR > 60 ml/min 05/30/21 06:06 BUN/Creatinine Ratio 31 % 05/30/21 06:06 Glucose 92 mg/dL (75-100) 05/30/21 06:06 POC Glucose 153 mg/dL (70-105) H 05/24/21 17:34 Lactic Acid 1.70 mmol/L (0.7-2.0) 05/24/21 09:39 Calcium 8.3 mg/dL (8.4-10.2) L 05/30/21 06:06 Phosphorus 2.10 mg/dL (2.5-4.5) L D 05/29/21 06:40 Magnesium 2.20 mg/dL (1.7-2.3) 05/29/21 06:40 Ferritin 2742.0 ng/mL (30.0-300.0) H 05/27/21 08:09 Total Bilirubin 0.90 mg/dL (0.1-1.2) 05/23/21 18:48 AST 27 units/L (5-40) 05/23/21 18:48 ALT 7 units/L (7-56) 05/23/21 18:48 Alkaline Phosphatase 69 units/L (35-129) 05/23/21 18:48 Ammonia 22.0 umol/L (25-60) L 05/23/21 18:48 Lactate Dehydrogenase 642 units/L (91-180) H 05/27/21 08:09 Troponin T < 0.010 ng/mL (0.00-0.029) 05/23/21 18:48 C-Reactive Protein 5.20 mg/dL (0.00-1.30) H 05/27/21 08:09 Total Protein 9.4 g/dL (6.3-8.2) H 05/23/21 18:48 Albumin 3.0 g/dL (3.9-5) L 05/23/21 18:48 Albumin/Globulin Ratio 0.5 % 05/23/21 18:48 Procalcitonin 0.31 ng/mL (<0.15) 05/23/21 18:48 TSH 1.150 mlU/mL (0.270-4.200) 05/23/21 18:48 Arterial Blood Glucose 110 mg/dL (65-95) H 05/29/21 17:58 Arterial Blood Ionized Calcium 4.5 mg/dL (4.6-5.3) L 05/29/21 17:58 Urine Color Lei (Yellow) 05/30/21 01:00 Urine Turbidity Cloudy (Clear) 05/30/21 01:00 Urine pH 5.0 (5.0-7.0) 05/30/21 01:00 Ur Specific [place] 1.019 (1.003-1.030) 05/30/21 01:00 Urine Protein 100 mg/dl mg/dL (Negative) 05/30/21 01:00 Urine Glucose (UA) Neg mg/dL (Negative) 05/30/21 01:00 Urine Ketones Neg mg/dL (Negative) 05/30/21 01:00 Urine Blood Mod (Negative) 05/30/21 01:00 Urine Nitrite Neg (Negative) 05/30/21 01:00 Urine Bilirubin Neg (Negative) 05/30/21 01:00 Urine Urobilinogen 4.0 mg/dL (<2.0) 05/30/21 01:00 Ur Leukocyte Esterase Neg (Negative) 05/30/21 01:00 Urine WBC (Auto) 12.0 /HPF (0.0-6.0) H 05/30/21 01:00 Urine RBC (Auto) 21.0 /HPF (0.0-6.0) 05/30/21 01:00 U Epithel Cells (Auto) 2.0 /HPF (0-13.0) 05/30/21 01:00 Uric Acid Crystals Few 05/30/21 01:00 Urine Mucus Few /HPF 05/30/21 01:00 Urine Yeast (Budding) 2+ /HPF 05/30/21 01:00 Plasma/Serum Alcohol < 0.01 % (0-0.07) 05/23/21 18:48 Proteinase 3 (PR3) Ab <1.0 AI (<1.0) 05/24/21 20:57 Myeloperoxidase Ab <1.0 AI (<1.0) 05/24/21 20:57 Complement C3 108 mg/dL (82-185) 05/24/21 20:57 Complement C4 29 mg/dL (15-53) 05/24/21 20:57 Coronavirus (PCR) Negative (Negative) 05/26/21 08:41 Blood Type A POSITIVE 05/29/21 08:15 Antibody Screen Negative 05/29/21 08:15 Microbiology: Microbiology 05/29/21 06:40 Peripheral/Venous Blood Culture - Preliminary NO GROWTH AFTER 24 HOURS 05/29/21 08:16 Peripheral/Venous Blood Culture - Preliminary NO GROWTH AFTER 24 HOURS Heart/IV: Voiding Method Condom Catheter Active Medications - Current Medications Current Medications: Generic Name Dose Route Start Last Admin Trade Name Freq PRN Reason Stop Dose Admin Acetaminophen 650 mg 05/29/21 07:05 Acetaminophen 325 Mg Tab PO Q6H PRN Pain, Mild (1-3) Dexamethasone 6 mg 05/27/21 10:00 05/29/21 12:01 Dexamethasone 4 Mg Tab PO 06/01/21 12:00 6 mg DAILY MIKE Administration Heparin Sodium (Porcine) 5,000 unit 05/24/21 06:00 05/30/21 07:21 Heparin 5,000 Unit/1 Ml Vial SUB-Q 5,000 unit Q8HR MIKE Administration Dextrose 1,000 mls @ 150 mls/hr 05/27/21 12:00 05/29/21 03:37 D5w IV 150 mls/hr DIRECT MIKE Administration Cefepime HCl 2 gm in 100 mls @ 200 mls/hr 05/29/21 14:00 05/30/21 07:20 Cefepime/Ns 2 Gm/100 Ml IV 200 mls/hr Q8HR MIKE Administration Protocol Vancomycin HCl 1 gm in 250 mls @ 166.667 mls/hr 05/30/21 00:00 05/30/21 01:00 Vancomycin/Ns 1 Gm/250 Ml IV 166.667 mls/hr Q12H MIKE Administration Metronidazole 500 mg in 100 mls @ 100 mls/hr 05/29/21 16:00 05/30/21 00:00 Flagyl 500 Mg/100 Ml IV 100 mls/hr Q8H MIKE Administration Protocol Magnesium Hydroxide 30 ml 05/23/21 22:01 Magnesium Hydroxide (Mom) Oral Liqd Udc PO Q4H PRN Constipation Morphine Sulfate 2 mg 05/23/21 22:01 05/25/21 06:28 Morphine 2 Mg/1 Ml Inj IV 2 mg Q4H PRN Administration Pain, Moderate (4-6) Morphine Sulfate 4 mg 05/23/21 22:01 Morphine 4 Mg/1 Ml Inj IV Q4H PRN Pain , Severe (7-10) Sodium Chloride 10 ml 05/24/21 10:00 05/29/21 22:00 Sodium Chloride 0.9% 10 Ml Flush Syringe IV 10 ml BID MIKE Administration Sodium Chloride 10 ml 05/23/21 22:01 Sodium Chloride 0.9% 10 Ml Flush Syringe IV PRN PRN LINE FLUSH Nutrition/Malnutrition Assess - Dietary Evaluation Nutrition/Malnutrition Findings: Nutrition Notes Start: 05/25/21 09:33 Freq: Status: Active Protocol: Document 05/30/21 08:26 GB (Rec: 05/30/21 09:04 GB [email or web address]) Nutrition Notes Initial or Follow up Reassessment Current Diagnosis Acute Kidney Injury Other Pertinent Diagnosis pneu, COVID PUI, encephalopathy Current Diet Pureed Labs/Tests 05/30: Na 150, BUN 40, Ca 8.3 Pertinent Medications D5 1/2 NS at 125 ml/hr Kionex Height 5 ft 11 in Weight 77.11 kg [place] Body Weight (kg) 78.18 BMI 23.7 Weight change and time frame no changes recorded Weight Status Appropriate Subjective/Other Information Per discussion w/RN Dobhoff for flush only, diet is puree, RD to confirm order for nutritional supplement beverage. Pt needs assistance with meals. Per [employer] ASSOCIATE note no aspirations with swallow, pureed diet with thin liquids Percent of energy/protein needs met: PO intake 75% or greater of meals and 50% or greater of supplement beverages meets 100 % of estimated energy needs. Burn Absent Trauma Absent Food Allergy No Current % PO Other Minimum of two criteria No #1 Nutrition Diagnosis Inadequate oral intake Comments: Nutritional supplement beverage ordered Etiology acute illness As Evidenced by Signs and Symptoms decreased PO for 10-12 days CREDENTIALS SPECIALIST Diagnosis Progress(for reassessment Continues documentation) Is patient on ventilator? No Is Patient Ambulatory and/or Out of Bed Yes REE-([place]. Jeor-ambulatory/OOB) [ 2123.199 [id number]] Kcal/Kg value to use for calculation 25 Approximate Energy Requirements Using 1928 kcal/Kg Calculation Used for Recommendations Kcal/kg Additional Notes Protein 1-1.2 g/kg @77k- 92g Nutrition Intervention Change Diet Order: continue Add Supplement/Snack (indicate name/kcal Nepro BID /protein ) Provides kCal: 850 Provides Protein (gm) 38 Goal #1 PO intake of meals to be 75% or greater TID daily for LOS Goal #2 PO intake of supplement beverage to be 50% or greater BID daily for LOS Goal #3 Weight to maintain within +/-3 % current weight for LOS Follow-Up By: 06/06/21 - Attestation Statement I have reviewed and agreed w/ Malnutrition eval & tx plan: Yes
[2021-05-30] MEDS: metroNIDAZOLE/NS 500 MG/100 ML 500 MG/100 ML BAG IV SCH ×3 (13:13→16:50)
[2021-05-30 14:07] LABS: ABG Base Excess -1.5 mmol/L (-2.0-3.0); ABG HCO3 22.8 mmol/L (20.0-26.0); ABG Methemoglobin 0.5 % (0.0-1.5); ABG Oxygen Saturation 97.1 % (95.0-99.0); ABG PCO2 37.2 mm Hg; ABG PH 7.406 pH Units (7.350-7.450); ABG PO2 90.9 mm Hg (80.0-90.0)
--- NOTE | 2021-05-30 15:07 | Progress Note ---
Assessment and Plan Impression: * Acute kidney injury secondary to ATN likely related to COVID 19 * Acute hypoxic respiratory failure secondary to COVID 19 PNA * Azotemia * Hyperkalemia * Metabolic acidosis * Hypernatremia Plan: * Restart D5W * S/p NG tube placement - free water replacement 400 ml Q3h. * Patient is s/p kayexelate daily x 3 days, now with K at goal * Keep MAP>65 * Management of COVID 19 PNA to primary team/ID * Dose medications for renal function * AM labs * Renal diet * Patient appeared in mild distress, advised his nurse to call FOXER/MET team for evaluation as may need escalation of care to IMCU/ICU. * Prognosis guarded Subjective Date of service: 05/30/21 Principal diagnosis: Pneumonia Interval history: Nursing, interdisciplinary and consult notes were reviewed Vitals, input and output, medications and labs were reviewed On bipap this morning Objective - Exam Narrative Exam: General: No acute distress Neck: Supple, no JVD. NG tube noted. Chest:On bipap Heart: RRR, S1 and S2, no pericardial rub Abdomen: Soft, nontender, no renal bruit Extremity: No peripheral cyanosis, edema Neurological:Somnolent Dermatology: No skin rash Psych: Unable to assess Musculoskeletal: No joint effusion - Vital Signs Vital signs: Vital Signs - 12hr 05/30/21 05/30/21 05/30/21 05:00 07:12 11:00 Temperature 98.8 F Pulse Rate 102 H 106 H 110 H Respiratory 29 H 20 35 H Rate Blood Pressure 114/73 O2 Sat by Pulse 99 99 96 Oximetry 05/30/21 13:48 Temperature Pulse Rate Respiratory Rate Blood Pressure O2 Sat by Pulse 98 Oximetry - Lab 05/29/21 06:40 05/30/21 06:06 Most recent lab results ABG pH 7.406 pH Units (7.350-7.450) 05/30/21 13:48 ABG pCO2 37.2 mm Hg 05/30/21 13:48 ABG pO2 90.9 mm Hg (80.0-90.0) H 05/30/21 13:48 ABG HCO3 22.8 mmol/L (20.0-26.0) 05/30/21 13:48 ABG O2 Saturation 97.1 % (95.0-99.0) 05/30/21 13:48 Calcium 8.3 mg/dL (8.4-10.2) L 05/30/21 06:06 Phosphorus 2.10 mg/dL (2.5-4.5) L D 05/29/21 06:40 Magnesium 2.20 mg/dL (1.7-2.3) 05/29/21 06:40 Medications & Allergies - Medications Allergies/Adverse Reactions: Allergies No Known Allergies Allergy (Unverified 02/12/17 15:47) Active Medications: Generic Name Dose Route Start Last Admin Trade Name Freq PRN Reason Stop Dose Admin Acetaminophen 650 mg 05/29/21 07:05 Acetaminophen 325 Mg Tab PO Q6H PRN Pain, Mild (1-3) Dexamethasone 6 mg 05/27/21 10:00 05/30/21 10:35 Dexamethasone 4 Mg Tab PO 06/01/21 12:00 6 mg DAILY MIKE Administration Heparin Sodium (Porcine) 5,000 unit 05/24/21 06:00 05/30/21 14:47 Heparin 5,000 Unit/1 Ml Vial SUB-Q 5,000 unit Q8HR MIKE Administration Dextrose 1,000 mls @ 150 mls/hr 05/27/21 12:00 05/29/21 03:37 D5w IV 150 mls/hr DIRECT MIKE Administration Cefepime HCl 2 gm in 100 mls @ 200 mls/hr 05/29/21 14:00 05/30/21 14:47 Cefepime/Ns 2 Gm/100 Ml IV 200 mls/hr Q8HR MIKE Administration Protocol Vancomycin HCl 1 gm in 250 mls @ 166.667 mls/hr 05/30/21 00:00 05/30/21 01:00 Vancomycin/Ns 1 Gm/250 Ml IV 166.667 mls/hr Q12H MIKE Administration Metronidazole 500 mg in 100 mls @ 100 mls/hr 05/29/21 16:00 05/30/21 13:13 Flagyl 500 Mg/100 Ml IV 100 mls/hr Q8H MIKE Administration Protocol Magnesium Hydroxide 30 ml 05/23/21 22:01 Magnesium Hydroxide (Mom) Oral Liqd Udc PO Q4H PRN Constipation Morphine Sulfate 2 mg 05/23/21 22:01 05/25/21 06:28 Morphine 2 Mg/1 Ml Inj IV 2 mg Q4H PRN Administration Pain, Moderate (4-6) Morphine Sulfate 4 mg 05/23/21 22:01 Morphine 4 Mg/1 Ml Inj IV Q4H PRN Pain , Severe (7-10) Sodium Chloride 10 ml 05/24/21 10:00 05/30/21 10:35 Sodium Chloride 0.9% 10 Ml Flush Syringe IV 10 ml BID MIKE Administration Sodium Chloride 10 ml 05/23/21 22:01 Sodium Chloride 0.9% 10 Ml Flush Syringe IV PRN PRN LINE FLUSH
[2021-05-30 22:47] LABS: ABG Base Excess -2.7 mmol/L (-2.0-3.0); ABG HCO3 19.9 mmol/L (20.0-26.0); ABG Methemoglobin 0.6 % (0.0-1.5); ABG Oxygen Saturation 98.8 % (95.0-99.0); ABG PH 7.454 pH Units (7.350-7.450); ABG PO2 141.8 mm Hg (80.0-90.0)
[2021-05-30] MEDS: ACETAMINOPHEN 325 MG TAB PO PRN (22:48)
[2021-05-30] MEDS ORDERED: SODIUM BICARB 8.4% 50 MEQ/50 ML SYRINGE IV ONE (23:40)
--- NOTE | 2021-05-30 23:40 | Event Note ---
Date: 05/30/21 Code med is called. Patient is found febrile temperature 103.1, tachycardic heart rate is 159 tachypneic BP is 134/70 O2 sat initially 85% on BiPAP O2 sat is 98%. ABG shows pH is 7.454, PCO2 29.2, PO2 141.8, bicarb 19.9. Patient is given Tylenol 650 p.o. every 6 as needed. blood culture is ordered. Patient is on IV vancomycin and cefepime.. Chest x-ray is ordered. We will monitor the patient closely. We also give 1 ampoule of bicarb.
--- NOTE | 2021-05-30 23:43 | XRay Report ---
CHEST 1 VIEW INDICATION / CLINICAL INFORMATION: eulogio STUDY TIME: 2240 COMPARISON: 05/29/2021 FINDINGS: SUPPORT DEVICES: Stable HEART / MEDIASTINUM: Stable LUNGS / PLEURA: Bilateral diffuse pulmonary infiltrates/edema are again noted with moderate improveme nt seen. No pneumothorax. ADDITIONAL FINDINGS: No significant additional findings. Signer Name: Tano Tran MD Signed: 05/30/2021 11:38 PM Workstation Name: [id number]
[2021-05-31] MEDS: VANCOMYCIN/NS 1 GM/250 ML 1 GM/250 ML BAG IV SCH ×2 (00:30→12:00)
[2021-05-31] MEDS: metroNIDAZOLE/NS 500 MG/100 ML 500 MG/100 ML BAG IV SCH ×3 (00:56→17:26)
[2021-05-31] MEDS: FREE WATER PO SCH ×8 (01:07→18:32)
[2021-05-31 02:35] LABS: Hematocrit 34.8 % (35.5-45.6); Hemoglobin 11.2 gm/dl (11.8-15.2); Mean Corpuscular HGB Conc 32 % (32-34); Mean Corpuscular Volume 87 fl (84-94); Platelet Count 127 K/mm3 (140-440); Red Blood Count 4.02 M/mm3 (3.65-5.03); Red Cell Distribution Width 14.4 % (13.2-15.2)
[2021-05-31 02:55] LABS: Calcium 8.3 mg/dL (8.4-10.2)
[2021-05-31 03:20] LABS: Band Neutrophils # (Manual) 0.1 K/mm3; Total Cells Counted 100
[2021-05-31 03:21] LABS: Large Platelets Few; Platelet Estimate Consistent w Auto; RBC Morphology Normal; Toxic Granulation 1+
[2021-05-31] MEDS ORDERED: ZIPRASIDONE MESYLATE 20 MG VIAL IM ONE (03:32)
[2021-05-31] MEDS ORDERED: WATER FOR INJ Sterile (PF) 10 ML ONE (03:51)
[2021-05-31] MEDS: CEFEPIME/NS 2 GM/100 ML 2 GM/100 ML BAG IV SCH ×3 (06:21→21:41)
[2021-05-31] MEDS: HEPARIN 5,000 UNIT/1 ML VIAL SUB-Q SCH ×3 (06:26→21:42)
[2021-05-31] MEDS: DEXAMETHASONE 4 MG TAB PO SCH (10:03)
--- NOTE | 2021-05-31 13:44 | Progress Note ---
Assessment and Plan Assessment and plan: #Acute hypoxic respiratory failure-state -Transition from BiPAP to 6 L nasal cannula -Pulmonology consulted; appreciate recs -D-dimer greater than 10,000 (on presentation) -VQ scan low probability for PE -will continue to monitor #Severe sepsis -Blood cultures NGTD x3 day; continue on vancomycin and cefepime and Flagyl. Patient febrile to 103.1 last night -UA revealing 12 WBCs with urine culture positive for [place]. Patient however denies any urinary symptoms. -Unsure of source. Chest x-ray negative, UA technically asymptomatic bacteriuria, blood cultures negative (yet pending), and no visible source on skin. Unsure if fevers are secondary to delayed Covid response. Will make another attempt at reconsulting infectious disease -Likely secondary to Covid pneumonia -repeat COVID-19 PCR negative #Lactic acidosis-resolved -Lactate 2.3 -> 1.70 #Acute metabolic encephalopathy-improved -CT head negative, ammonia 22 -Patient cooperative follows commands; however, patient is still not at baseline -Clinical improvement in mentation seen with improvement of hypernatremia on 05/28/2021. Discussed with patient's daughter to determine better understanding of patient's baseline mental status -Acute decline in mental status on 05/29/2021; will continue to monitor and see if improvement comes with improvement in oxygenation -Improvement in mental status on 05/30/2021; mental decline was likely due to acute hypoxia that was resolved with initiation of BiPAP therapy #ANGELES -Creatinine 1.5 -Likely prerenal secondary to volume depletion after several days of no oral intake -Renal ultrasound unremarkable -Nephrology consulted, recs appreciated -will avoid nephrotoxic agents #Hyperkalemia-resolved -will continue to monitor #Pneumonia-resolved -Completed azithromycin and Rocephin -Repeat chest x-ray on 05/29/2021 was negative #COVID-19 infection -Diagnosed on 05/11 -D-dimer greater than 10,000, ferritin 2000, LDH 577, CRP 8.8 -ID consulted, assistance appreciated -Continue steroids x10 days and vitamins (steroids end on 06/06/2021) #Hypernatremia - Na 174-->162-->148-->150 -Restarting D5W at 125 an hour -Continue free water flushes (400 cc every 3 hours) per nephrology recommendations -Likely secondary to almost 2 weeks no oral intake -Consulted nephrology (appreciate recs) Disposition Plan: Continue medical management History Interval history: An event happened overnight where the patient was found to be tachypneic and tachycardic to the 140s. A repeat chest x-ray was performed that was found to be within normal limits. The patient was already being treated with vancomycin, cefepime, and Flagyl. Hospitalist Physical - Constitutional Vitals: Temp Pulse Resp BP Pulse Ox 99 F 107 H 31 H 134/70 99 05/31/21 01:08 05/31/21 02:30 05/31/21 02:30 05/30/21 21:02 05/31/21 02:30 General appearance: Present: no acute distress, cachectic - EENT Eyes: Present: PERRL, EOM intact ENT: hearing intact - Neck Neck: Present: supple - Respiratory Respiratory effort: normal Respiratory: bilateral: diminished, rhonchi, negative: rales, wheezing Details: Currently on 6 L nasal cannula at bedside - Cardiovascular Rhythm: regular Heart Sounds: Present: S1 & S2 - Extremities Extremities: no ischemia, pulses intact, pulses symmetrical, No edema, normal temperature, normal color Peripheral Pulses: within normal limits - Abdominal General gastrointestinal: soft, non-tender, non-distended, normal bowel sounds - Integumentary Integumentary: Present: clear, warm, dry - Psychiatric Psychiatric: appropriate mood/affect, intact judgment & insight, memory intact, cooperative - Neurologic Neurologic: CNII-XII intact, moves all extremities - Allied Health Allied health notes reviewed: nursing HEART Score - HEART Score EKG: Non-specific Age: 45-65 Risk factors: 1-2 risk factors Troponin: Troponin T < 0.010 ng/mL (0.00-0.029) 05/23/21 18:48 - Critical Actions Critical Actions: 0-3 pts:0.9-1.7%risk of adverse cardiac event.Candidate for discharge Results - Labs CBC & Chem 7: 05/31/21 02:22 05/31/21 02:22 Labs: Laboratory Last Values WBC 10.8 K/mm3 (4.5-11.0) 05/31/21 02:22 RBC 4.02 M/mm3 (3.65-5.03) 05/31/21 02:22 Hgb 11.2 gm/dl (11.8-15.2) L 05/31/21 02:22 Hct 34.8 % (35.5-45.6) L 05/31/21 02:22 MCV 87 fl (84-94) 05/31/21 02:22 MCH 28 pg (28-32) 05/31/21 02:22 MCHC 32 % (32-34) 05/31/21 02:22 RDW 14.4 % (13.2-15.2) 05/31/21 02:22 Plt Count 127 K/mm3 (140-440) L 05/31/21 02:22 Add Manual Diff Complete 05/31/21 02:22 Total Counted 100 05/31/21 02:22 Seg Neutrophils % Data Developer 05/31/21 02:22 Seg Neuts % (Manual) 97.0 % (40.0-70.0) H 05/31/21 02:22 Band Neutrophils % 1.0 % 05/31/21 02:22 Lymphocytes % (Manual) 9.0 % (13.4-35.0) L 05/29/21 06:40 Monocytes % (Manual) 2.0 % (0.0-7.3) 05/31/21 02:22 Nucleated RBC % Not Reportable 05/31/21 02:22 Seg Neutrophils # Man 10.5 K/mm3 (1.8-7.7) H 05/31/21 02:22 Band Neutrophils # 0.1 K/mm3 05/31/21 02:22 Lymphocytes # (Manual) 0.0 K/mm3 (1.2-5.4) L 05/31/21 02:22 Abs React Lymphs (Man) 0.0 K/mm3 05/31/21 02:22 Monocytes # (Manual) 0.2 K/mm3 (0.0-0.8) 05/31/21 02:22 Eosinophils # (Manual) 0.0 K/mm3 (0.0-0.4) 05/31/21 02:22 Basophils # (Manual) 0.0 K/mm3 (0.0-0.1) 05/31/21 02:22 Metamyelocytes # 0.0 K/mm3 05/31/21 02:22 Myelocytes # 0.0 K/mm3 05/31/21 02:22 Promyelocytes # 0.0 K/mm3 05/31/21 02:22 Blast Cells # 0.0 K/mm3 05/31/21 02:22 WBC Morphology Not Reportable 05/31/21 02:22 Hypersegmented Neuts Not Reportable 05/31/21 02:22 Hyposegmented Neuts Not Reportable 05/31/21 02:22 Hypogranular Neuts Not Reportable 05/31/21 02:22 Smudge Cells Not Reportable 05/31/21 02:22 Toxic Granulation 1+ 05/31/21 02:22 Toxic Vacuolation Not Reportable 05/31/21 02:22 Dohle Bodies Not Reportable 05/31/21 02:22 Pelger-Huet Anomaly Not Reportable 05/31/21 02:22 Kaci Rods Not Reportable 05/31/21 02:22 Platelet Estimate Consistent w auto 05/31/21 02:22 Clumped Platelets Not Reportable 05/31/21 02:22 Plt Clumps, EDTA Not Reportable 05/31/21 02:22 Large Platelets Few 05/31/21 02:22 Giant Platelets Not Reportable 05/31/21 02:22 Platelet Satelliting Not Reportable 05/31/21 02:22 Plt Morphology Comment Not Reportable 05/31/21 02:22 RBC Morphology Normal 05/31/21 02:22 Dimorphic RBCs Not Reportable 05/31/21 02:22 Polychromasia Not Reportable 05/31/21 02:22 Hypochromasia Not Reportable 05/31/21 02:22 Poikilocytosis Not Reportable 05/31/21 02:22 Anisocytosis Not Reportable 05/31/21 02:22 Microcytosis Not Reportable 05/31/21 02:22 Macrocytosis Not Reportable 05/31/21 02:22 Spherocytes Not Reportable 05/31/21 02:22 Pappenheimer Bodies Not Reportable 05/31/21 02:22 Sickle Cells Not Reportable 05/31/21 02:22 Target Cells Not Reportable 05/31/21 02:22 Tear Drop Cells Not Reportable 05/31/21 02:22 Ovalocytes Not Reportable 05/31/21 02:22 Helmet Cells Not Reportable 05/31/21 02:22 [place] Bodies Not Reportable 05/31/21 02:22 [place] Rings Not Reportable 05/31/21 02:22 [place] Cells Not Reportable 05/31/21 02:22 Bite Cells Not Reportable 05/31/21 02:22 Crenated Cell Not Reportable 05/31/21 02:22 Elliptocytes Not Reportable 05/31/21 02:22 Acanthocytes (Spur) Not Reportable 05/31/21 02:22 Rouleaux Not Reportable 05/31/21 02:22 Hemoglobin C Crystals Not Reportable 05/31/21 02:22 Schistocytes Not Reportable 05/31/21 02:22 Malaria parasites Not Reportable 05/31/21 02:22 Dick Bodies Not Reportable 05/31/21 02:22 Hem Pathologist Commnt No 05/31/21 02:22 D-Dimer 3584.01 ng/mlDDU (0-234) H 05/27/21 08:09 ABG pH 7.454 pH Units (7.350-7.450) H 05/30/21 22:32 POC ABG pCO2 30.3 mmHg (32.0-48.0) L 05/29/21 17:58 ABG pCO2 29.0 mm Hg 05/30/21 22:32 POC ABG pO2 128.1 mmHg (83-108) H 05/29/21 17:58 ABG pO2 141.8 mm Hg (80.0-90.0) H 05/30/21 22:32 POC ABG HCO3 23.4 05/29/21 17:58 ABG HCO3 19.9 mmol/L (20.0-26.0) L 05/30/21 22:32 ABG O2 Saturation 98.8 % (95.0-99.0) 05/30/21 22:32 ABG O2 Content 19.9 (0.0-44) 05/30/21 22:32 POC ABG Base Excess 1.0 05/29/21 17:58 ABG Base Excess -2.7 mmol/L (-2.0-3.0) L 05/30/21 22:32 ABG Hemoglobin 14.4 gm/dl (14.0-18.0) 05/30/21 22:32 ABG Oxyhemoglobin 97.1 (94-98) 05/29/21 17:58 ABG Carboxyhemoglobin 1.1 % (0.0-5.0) 05/30/21 22:32 ABG Methemoglobin 0.6 % (0.0-1.5) 05/30/21 22:32 ABG Sodium 145.0 mmol/L (136.0-145.0) 05/29/21 17:58 ABG Potassium 3.5 mmol/L (3.40-4.50) 05/29/21 17:58 ABG Chloride 113.0 mmol/L (98-107) H 05/29/21 17:58 ABG Glucose 110 mg/dL (65-95) H 05/29/21 17:58 VBG pH 7.254 (7.320-7.420) L 05/24/21 02:09 Oxyhemoglobin 97.1 % (95.0-99.0) 05/30/21 22:32 Carboxyhemoglobin 1.2 (0.5-1.5) 05/29/21 17:58 FiO2 70 % 05/30/21 22:32 FiO2 % 80.0 05/29/21 17:58 Sodium 152 mmol/L (137-145) H 05/31/21 02:22 Potassium 4.1 mmol/L (3.6-5.0) 05/31/21 02:22 Chloride 118.9 mmol/L (98-107) H 05/31/21 02:22 Carbon Dioxide 19 mmol/L (22-30) L 05/31/21 02:22 Anion Gap 18 mmol/L 05/31/21 02:22 BUN 48 mg/dL (9-20) H 05/31/21 02:22 Creatinine 1.5 mg/dL (0.8-1.3) H 05/31/21 02:22 Estimated GFR 59 ml/min 05/31/21 02:22 BUN/Creatinine Ratio 32 % 05/31/21 02:22 Glucose 101 mg/dL (75-100) H 05/31/21 02:22 POC Glucose 97 mg/dL (70-105) 05/31/21 11:38 Lactic Acid 1.70 mmol/L (0.7-2.0) 05/24/21 09:39 Calcium 8.3 mg/dL (8.4-10.2) L 05/31/21 02:22 Phosphorus 2.50 mg/dL (2.5-4.5) 05/31/21 02:22 Magnesium 2.30 mg/dL (1.7-2.3) 05/31/21 02:22 Ferritin 2742.0 ng/mL (30.0-300.0) H 05/27/21 08:09 Total Bilirubin 0.90 mg/dL (0.1-1.2) 05/23/21 18:48 AST 27 units/L (5-40) 05/23/21 18:48 ALT 7 units/L (7-56) 05/23/21 18:48 Alkaline Phosphatase 69 units/L (35-129) 05/23/21 18:48 Ammonia 22.0 umol/L (25-60) L 05/23/21 18:48 Lactate Dehydrogenase 642 units/L (91-180) H 05/27/21 08:09 Troponin T < 0.010 ng/mL (0.00-0.029) 05/23/21 18:48 C-Reactive Protein 5.20 mg/dL (0.00-1.30) H 05/27/21 08:09 Total Protein 9.4 g/dL (6.3-8.2) H 05/23/21 18:48 Albumin 3.0 g/dL (3.9-5) L 05/23/21 18:48 Albumin/Globulin Ratio 0.5 % 05/23/21 18:48 Procalcitonin 0.31 ng/mL (<0.15) 05/23/21 18:48 TSH 1.150 mlU/mL (0.270-4.200) 05/23/21 18:48 Arterial Blood Glucose 110 mg/dL (65-95) H 05/29/21 17:58 Arterial Blood Ionized Calcium 4.5 mg/dL (4.6-5.3) L 05/29/21 17:58 Urine Color Eli (Yellow) 05/30/21 01:00 Urine Turbidity Cloudy (Clear) 05/30/21 01:00 Urine pH 5.0 (5.0-7.0) 05/30/21 01:00 Ur Specific [place] 1.019 (1.003-1.030) 05/30/21 01:00 Urine Protein 100 mg/dl mg/dL (Negative) 05/30/21 01:00 Urine Glucose (UA) Neg mg/dL (Negative) 05/30/21 01:00 Urine Ketones Neg mg/dL (Negative) 05/30/21 01:00 Urine Blood Mod (Negative) 05/30/21 01:00 Urine Nitrite Neg (Negative) 05/30/21 01:00 Urine Bilirubin Neg (Negative) 05/30/21 01:00 Urine Urobilinogen 4.0 mg/dL (<2.0) 05/30/21 01:00 Ur Leukocyte Esterase Neg (Negative) 05/30/21 01:00 Urine WBC (Auto) 12.0 /HPF (0.0-6.0) H 05/30/21 01:00 Urine RBC (Auto) 21.0 /HPF (0.0-6.0) 05/30/21 01:00 U Epithel Cells (Auto) 2.0 /HPF (0-13.0) 05/30/21 01:00 Uric Acid Crystals Few 05/30/21 01:00 Urine Mucus Few /HPF 05/30/21 01:00 Urine Yeast (Budding) 2+ /HPF 05/30/21 01:00 Vancomycin Trough 20.2 ug/mL (5.0-20.0) H 05/31/21 11:42 Plasma/Serum Alcohol < 0.01 % (0-0.07) 05/23/21 18:48 Proteinase 3 (PR3) Ab <1.0 AI (<1.0) 05/24/21 20:57 Myeloperoxidase Ab <1.0 AI (<1.0) 05/24/21 20:57 Complement C3 108 mg/dL (82-185) 05/24/21 20:57 Complement C4 29 mg/dL (15-53) 05/24/21 20:57 Coronavirus (PCR) Negative (Negative) 05/26/21 08:41 Blood Type A POSITIVE 05/29/21 08:15 Antibody Screen Negative 05/29/21 08:15 Microbiology: Microbiology 05/30/21 Unknown Urine,Catheterized - Straight Catheter Urine Culture - Final [place] Albicans 05/29/21 06:40 Peripheral/Venous Blood Culture - Preliminary NO GROWTH AFTER 48 HOURS 05/29/21 08:16 Peripheral/Venous Blood Culture - Preliminary NO GROWTH AFTER 48 HOURS 05/31/21 00:04 Peripheral/Venous Blood Culture - Preliminary Culture in Progress 05/30/21 23:32 Peripheral/Venous Blood Culture - Preliminary Culture in Progress Heart/IV: Voiding Method Condom Catheter Active Medications - Current Medications Current Medications: Generic Name Dose Route Start Last Admin Trade Name Freq PRN Reason Stop Dose Admin Acetaminophen 650 mg 05/29/21 07:05 05/30/21 22:48 Acetaminophen 325 Mg Tab PO 650 mg Q6H PRN Administration Pain, Mild (1-3) Dexamethasone 6 mg 05/27/21 10:00 05/31/21 10:03 Dexamethasone 4 Mg Tab PO 06/01/21 12:00 6 mg DAILY MIKE Administration Heparin Sodium (Porcine) 5,000 unit 05/24/21 06:00 05/31/21 06:26 Heparin 5,000 Unit/1 Ml Vial SUB-Q 5,000 unit Q8HR MIKE Administration Dextrose 1,000 mls @ 150 mls/hr 05/27/21 12:00 05/29/21 03:37 D5w IV 150 mls/hr DIRECT MIKE Administration Cefepime HCl 2 gm in 100 mls @ 200 mls/hr 05/29/21 14:00 05/31/21 06:21 Cefepime/Ns 2 Gm/100 Ml IV 200 mls/hr Q8HR MIKE Administration Protocol Metronidazole 500 mg in 100 mls @ 100 mls/hr 05/29/21 16:00 05/31/21 08:00 Flagyl 500 Mg/100 Ml IV 100 mls/hr Q8H MIKE Administration Protocol Dextrose 1,000 mls @ 125 mls/hr 05/31/21 14:00 D5w IV DIRECT MIKE Magnesium Hydroxide 30 ml 05/23/21 22:01 Magnesium Hydroxide (Mom) Oral Liqd Udc PO Q4H PRN Constipation Morphine Sulfate 2 mg 05/23/21 22:01 05/25/21 06:28 Morphine 2 Mg/1 Ml Inj IV 2 mg Q4H PRN Administration Pain, Moderate (4-6) Morphine Sulfate 4 mg 05/23/21 22:01 Morphine 4 Mg/1 Ml Inj IV Q4H PRN Pain , Severe (7-10) Sodium Chloride 10 ml 05/24/21 10:00 05/31/21 09:58 Sodium Chloride 0.9% 10 Ml Flush Syringe IV 10 ml BID MIKE Administration Sodium Chloride 10 ml 05/23/21 22:01 Sodium Chloride 0.9% 10 Ml Flush Syringe IV PRN PRN LINE FLUSH Nutrition/Malnutrition Assess - Dietary Evaluation Nutrition/Malnutrition Findings: Nutrition Notes Start: 05/25/21 09:33 Freq: Status: Active Protocol: Document 05/30/21 08:26 GB (Rec: 05/30/21 09:04 GB [id number]) Nutrition Notes Initial or Follow up Reassessment Current Diagnosis Acute Kidney Injury Other Pertinent Diagnosis pneu, COVID PUI, encephalopathy Current Diet Pureed Labs/Tests 05/30: Na 150, BUN 40, Ca 8.3 Pertinent Medications D5 1/2 NS at 125 ml/hr Kionex Height 5 ft 11 in Weight 77.11 kg [place] Body Weight (kg) 78.18 BMI 23.7 Weight change and time frame no changes recorded Weight Status Appropriate Subjective/Other Information Per discussion w/RN Dobhoff for flush only, diet is puree, RD to confirm order for nutritional supplement beverage. Pt needs assistance with meals. Per WHALE FISHERMAN note no aspirations with swallow, pureed diet with thin liquids Percent of energy/protein needs met: PO intake 75% or greater of meals and 50% or greater of supplement beverages meets 100 % of estimated energy needs. Burn Absent Trauma Absent Food Allergy No Current % PO Other Minimum of two criteria No #1 Nutrition Diagnosis Inadequate oral intake Comments: Nutritional supplement beverage ordered Etiology acute illness As Evidenced by Signs and Symptoms decreased PO for 10-12 days [employer] Diagnosis Progress(for reassessment Continues documentation) Is patient on ventilator? No Is Patient Ambulatory and/or Out of Bed Yes REE-([place]-ambulatory/OOB) [ 2123.199 [id number]] Kcal/Kg value to use for calculation 25 Approximate Energy Requirements Using 1928 kcal/Kg Calculation Used for Recommendations Kcal/kg Additional Notes Protein 1-1.2 g/kg @77k- 92g Nutrition Intervention Change Diet Order: continue Add Supplement/Snack (indicate name/kcal Nepro BID /protein ) Provides kCal: 850 Provides Protein (gm) 38 Goal #1 PO intake of meals to be 75% or greater TID daily for LOS Goal #2 PO intake of supplement beverage to be 50% or greater BID daily for LOS Goal #3 Weight to maintain within +/-3 % current weight for LOS Follow-Up By: 06/06/21 - Attestation Statement I have reviewed and agreed w/ Malnutrition eval & tx plan: Yes
[2021-05-31] MEDS: DEXTROSE 5% IN WATER 1,000 ML IV SCH (14:54)
--- NOTE | 2021-05-31 17:33 | XRay Report ---
ABDOMEN 1 VIEW 05/31/2021 5:18 PM INDICATION / CLINICAL INFORMATION: for NG Tube placement. COMPARISON: 01/24/21 FINDINGS: TUBES / LINES: Weighted feeding tube is present in the proximal stomach. BOWEL GAS PATTERN: No significant abnormality. FREE AIR / EXTRALUMINAL GAS: None. ADDITIONAL FINDINGS: No significant additional findings. IMPRESSION: 1. Feeding tube present in the proximal stomach. Signer Name: Nolvia Mercedes MD Signed: 05/31/2021 5:29 PM Workstation Name: [id number]
--- NOTE | 2021-05-31 18:15 | Progress Note ---
Assessment and Plan Impression: * Acute kidney injury secondary to ATN likely related to COVID 19 * Acute hypoxic respiratory failure secondary to COVID 19 PNA * Azotemia * Hyperkalemia * Metabolic acidosis * Hypernatremia Plan: * Start hypotonic bicarb fluid * Replace NG tube for free water replacement 400 ml Q3h - discussed with nurse * Patient is s/p kayexelate daily x 3 days, now with K at goal * Keep MAP>65 * Management of COVID 19 PNA to primary team/ID * Dose medications for renal function * AM labs * Renal diet * Prognosis guarded Subjective Date of service: 05/31/21 Principal diagnosis: Pneumonia Interval history: Nursing, interdisciplinary and consult notes were reviewed Vitals, input and output, medications and labs were reviewed On 6 L NC this morning Objective - Exam Narrative Exam: General: No acute distress Neck: Supple, no JVD. NG tube noted. Chest: Decreased bibasilar breath sounds Heart: RRR, S1 and S2, no pericardial rub Abdomen: Soft, nontender, no renal bruit Extremity: No peripheral cyanosis, edema Neurological:Somnolent Dermatology: No skin rash Psych: Unable to assess Musculoskeletal: No joint effusion - Vital Signs Vital signs: Vital Signs - 12hr 05/31/21 05/31/21 05/31/21 10:00 11:39 11:45 Temperature Pulse Rate 98 H Blood Pressure 120/69 O2 Sat by Pulse 95 96 Oximetry 05/31/21 05/31/21 11:50 11:51 Temperature 87.8 F L Pulse Rate Blood Pressure 112/79 O2 Sat by Pulse Oximetry - Lab 05/31/21 02:22 05/31/21 02:22 Most recent lab results ABG pH 7.454 pH Units (7.350-7.450) H 05/30/21 22:32 ABG pCO2 29.0 mm Hg 05/30/21 22:32 ABG pO2 141.8 mm Hg (80.0-90.0) H 05/30/21 22:32 ABG HCO3 19.9 mmol/L (20.0-26.0) L 05/30/21 22:32 ABG O2 Saturation 98.8 % (95.0-99.0) 05/30/21 22:32 Calcium 8.3 mg/dL (8.4-10.2) L 05/31/21 02:22 Phosphorus 2.50 mg/dL (2.5-4.5) 05/31/21 02:22 Magnesium 2.30 mg/dL (1.7-2.3) 05/31/21 02:22 Medications & Allergies - Medications Allergies/Adverse Reactions: Allergies No Known Allergies Allergy (Unverified 02/12/17 15:47) Home Medications: Home Medications Medication Instructions Recorded Confirmed Last Taken Type No Known Home Medications [No 05/31/21 05/31/21 Unknown History Reported Home Medications] Active Medications: Generic Name Dose Route Start Last Admin Trade Name Freq PRN Reason Stop Dose Admin Acetaminophen 650 mg 05/29/21 07:05 05/30/21 22:48 Acetaminophen 325 Mg Tab PO 650 mg Q6H PRN Administration Pain, Mild (1-3) Dexamethasone 6 mg 05/27/21 10:00 05/31/21 10:03 Dexamethasone 4 Mg Tab PO 06/01/21 12:00 6 mg DAILY MIKE Administration Heparin Sodium (Porcine) 5,000 unit 05/24/21 06:00 05/31/21 14:55 Heparin 5,000 Unit/1 Ml Vial SUB-Q 5,000 unit Q8HR MIKE Administration Cefepime HCl 2 gm in 100 mls @ 200 mls/hr 05/29/21 14:00 05/31/21 14:55 Cefepime/Ns 2 Gm/100 Ml IV 200 mls/hr Q8HR MIKE Administration Protocol Metronidazole 500 mg in 100 mls @ 100 mls/hr 05/29/21 16:00 05/31/21 17:26 Flagyl 500 Mg/100 Ml IV 100 mls/hr Q8H MIKE Administration Protocol Dextrose 1,000 mls @ 125 mls/hr 05/31/21 15:00 05/31/21 14:54 D5w IV 125 mls/hr DIRECT MIKE Administration Vancomycin HCl 750 mg/ Sodium 265 mls @ 166.667 mls/hr 06/01/21 00:00 Chloride IV Q12H MIKE Sodium Bicarbonate 100 meq/ 1,100 mls @ 100 mls/hr 05/31/21 19:00 Sterile Water IV 06/05/21 05:59 DIRECT MIKE Magnesium Hydroxide 30 ml 05/23/21 22:01 Magnesium Hydroxide (Mom) Oral Liqd Udc PO Q4H PRN Constipation Morphine Sulfate 2 mg 05/23/21 22:01 05/25/21 06:28 Morphine 2 Mg/1 Ml Inj IV 2 mg Q4H PRN Administration Pain, Moderate (4-6) Morphine Sulfate 4 mg 05/23/21 22:01 Morphine 4 Mg/1 Ml Inj IV Q4H PRN Pain , Severe (7-10) Sodium Chloride 10 ml 05/24/21 10:00 05/31/21 09:58 Sodium Chloride 0.9% 10 Ml Flush Syringe IV 10 ml BID MIKE Administration Sodium Chloride 10 ml 05/23/21 22:01 Sodium Chloride 0.9% 10 Ml Flush Syringe IV PRN PRN LINE FLUSH
[2021-06-01] MEDS: FREE WATER PO SCH ×6 (00:17→21:29)
[2021-06-01] MEDS: VANCOMYCIN 750 MG in SODIUM CHLORIDE 0.9% 250ML 250 ML IV SCH ×2 (01:33→12:00)
[2021-06-01] MEDS: CEFEPIME/NS 2 GM/100 ML 2 GM/100 ML BAG IV SCH ×2 (06:15→14:38)
[2021-06-01] MEDS: HEPARIN 5,000 UNIT/1 ML VIAL SUB-Q SCH ×3 (06:19→21:29)
[2021-06-01] MEDS: metroNIDAZOLE/NS 500 MG/100 ML 500 MG/100 ML BAG IV SCH ×3 (06:33→15:59)
[2021-06-01] MEDS: DEXAMETHASONE 4 MG TAB PO SCH (10:54)
[2021-06-01 11:15] LABS: BUN/Creatinine Ratio 42; Blood Urea Nitrogen 50 mg/dL (9-20); Calcium 8.3 mg/dL (8.4-10.2); Hemolysis Index 2
[2021-06-01 12:26] LABS: BUN/Creatinine Ratio 39; Blood Urea Nitrogen 47 mg/dL (9-20); Calcium 8.6 mg/dL (8.4-10.2); Hemolysis Index 6
[2021-06-01 12:59] LABS: Hematocrit 33.5 % (35.5-45.6); Hemoglobin 10.7 gm/dl (11.8-15.2); Mean Corpuscular HGB Conc 32 % (32-34); Mean Corpuscular Volume 87 fl (84-94); Platelet Count 145 K/mm3 (140-440); Red Blood Count 3.85 M/mm3 (3.65-5.03); Red Cell Distribution Width 14.8 % (13.2-15.2)
[2021-06-01 13:27] LABS: Total Cells Counted 100
[2021-06-01 13:29] LABS: Platelet Estimate Consistent w Auto; Target Cells Few
--- NOTE | 2021-06-01 14:57 | Progress Note ---
Assessment and Plan Assessment and plan: #Acute hypoxic respiratory failure-stable -Currently on 5 L nasal cannula; will possibly need oxygen upon discharge -Pulmonology consulted; appreciate recs -D-dimer greater than 10,000 (on presentation) -VQ scan low probability for PE -will continue to monitor #Severe sepsis -Blood cultures NGTD x3 day; continue on vancomycin and cefepime and Flagyl. Patient febrile to 103.1 on 05/30/2021. If patient remains afebrile today all antibiotics can be discontinued -UA revealing 12 WBCs with urine culture positive for Frnace. Patient however denies any urinary symptoms. -Unsure of source. Chest x-ray negative, UA technically asymptomatic bacteriuria, blood cultures negative (yet pending), and no visible source on skin. Unsure if fevers are secondary to delayed Covid response. -Likely secondary to Covid pneumonia -repeat COVID-19 PCR negative #Lactic acidosis-resolved -Lactate 2.3 -> 1.70 #Acute metabolic encephalopathy-resolved -CT head negative, ammonia 22 -Patient cooperative follows commands; however, patient is still not at baseline -Clinical improvement in mentation seen with improvement of hypernatremia on 05/28/2021. Discussed with patient's daughter to determine better understanding of patient's baseline mental status -Acute decline in mental status on 05/29/2021; will continue to monitor and see if improvement comes with improvement in oxygenation -Improvement in mental status on 05/30/2021; mental decline was likely due to acute hypoxia that was resolved with initiation of BiPAP therapy #ANGELES-improved -Creatinine 1.2 -Likely prerenal secondary to volume depletion after several days of no oral intake -Renal ultrasound unremarkable -Nephrology consulted, recs appreciated -will avoid nephrotoxic agents #Hyperkalemia-resolved -will continue to monitor #Pneumonia-resolved -Completed azithromycin and Rocephin -Repeat chest x-ray on 05/29/2021 was negative #COVID-19 infection -Diagnosed on 05/11 -D-dimer greater than 10,000, ferritin 2000, LDH 577, CRP 8.8 -ID consulted, assistance appreciated -Continue steroids x10 days and vitamins (steroids end on 06/06/2021) #Hypernatremia - Na 174-->162-->148-->150-->152 -Unable to continue free water flushes at 400 cc every 3 hours due to patient removing NG tube. Will increase D5W to 175 cc/hr -Likely secondary to almost 2 weeks no oral intake -Consulted nephrology (appreciate recs) #Discharge planning -Pending physical therapy final recommendations -Patient will likely need to be discharged on home oxygen of approximately 5 L; will determine oxygen amount with physical therapy Disposition Plan: Continue medical management Total Time Spent with Patient (Minutes): 35 History Interval history: No acute events overnight Hospitalist Physical - Constitutional Vitals: Temp Pulse Resp BP Pulse Ox 65.0 F L 82 20 134/77 91 06/01/21 04:54 06/01/21 04:54 06/01/21 04:54 06/01/21 04:54 06/01/21 04:54 General appearance: Present: no acute distress, cachectic - EENT Eyes: Present: PERRL, EOM intact ENT: hearing intact, clear oral mucosa, dentition normal - Neck Neck: Present: supple, normal ROM - Respiratory Respiratory effort: normal (On 5 L nasal can) Respiratory: bilateral: diminished, negative: CTA, rales, wheezing - Cardiovascular Rhythm: regular Heart Sounds: Present: S1 & S2 - Extremities Extremities: no ischemia, pulses intact, pulses symmetrical, No edema, normal temperature, normal color Peripheral Pulses: within normal limits - Abdominal General gastrointestinal: soft, non-tender, non-distended, normal bowel sounds - Integumentary Integumentary: Present: clear, warm, dry - Psychiatric Psychiatric: appropriate mood/affect, intact judgment & insight, memory intact, cooperative - Neurologic Neurologic: CNII-XII intact, moves all extremities - Allied Health Allied health notes reviewed: nursing HEART Score - HEART Score EKG: Non-specific Age: 45-65 Risk factors: 1-2 risk factors Troponin: Troponin T < 0.010 ng/mL (0.00-0.029) 05/23/21 18:48 - Critical Actions Critical Actions: 0-3 pts:0.9-1.7%risk of adverse cardiac event.Candidate for discharge Results - Labs CBC & Chem 7: 06/01/21 07:10 06/01/21 10:39 Labs: Laboratory Last Values WBC 7.4 K/mm3 (4.5-11.0) 06/01/21 07:10 RBC 3.85 M/mm3 (3.65-5.03) 06/01/21 07:10 Hgb 10.7 gm/dl (11.8-15.2) L 06/01/21 07:10 Hct 33.5 % (35.5-45.6) L 06/01/21 07:10 MCV 87 fl (84-94) 06/01/21 07:10 MCH 28 pg (28-32) 06/01/21 07:10 MCHC 32 % (32-34) 06/01/21 07:10 RDW 14.8 % (13.2-15.2) 06/01/21 07:10 Plt Count 145 K/mm3 (140-440) 06/01/21 07:10 Lymph % (Auto) Sole Leveler 06/01/21 07:10 [place] % (Auto) Sole Leveler 06/01/21 07:10 Eos % (Auto) Sole Leveler 06/01/21 07:10 Baso % (Auto) Sole Leveler 06/01/21 07:10 Lymph # (Auto) Sole Leveler 06/01/21 07:10 [place] # (Auto) Sole Leveler 06/01/21 07:10 Eos # (Auto) Sole Leveler 06/01/21 07:10 Baso # (Auto) Sole Leveler 06/01/21 07:10 Add Manual Diff Complete 06/01/21 07:10 Total Counted 100 06/01/21 07:10 Seg Neutrophils % Sole Leveler 06/01/21 07:10 Seg Neuts % (Manual) 92.0 % (40.0-70.0) H 06/01/21 07:10 Band Neutrophils % 1.0 % 05/31/21 02:22 Lymphocytes % (Manual) 4.0 % (13.4-35.0) L 06/01/21 07:10 Reactive Lymphs % (Man) 1.0 % 06/01/21 07:10 Monocytes % (Manual) 3.0 % (0.0-7.3) 06/01/21 07:10 Nucleated RBC % Not Reportable 06/01/21 07:10 Seg Neutrophils # Sole Leveler 06/01/21 07:10 Seg Neutrophils # Man 6.8 K/mm3 (1.8-7.7) 06/01/21 07:10 Band Neutrophils # 0.0 K/mm3 06/01/21 07:10 Lymphocytes # (Manual) 0.3 K/mm3 (1.2-5.4) L 06/01/21 07:10 Abs React Lymphs (Man) 0.1 K/mm3 06/01/21 07:10 Monocytes # (Manual) 0.2 K/mm3 (0.0-0.8) 06/01/21 07:10 Eosinophils # (Manual) 0.0 K/mm3 (0.0-0.4) 06/01/21 07:10 Basophils # (Manual) 0.0 K/mm3 (0.0-0.1) 06/01/21 07:10 Metamyelocytes # 0.0 K/mm3 06/01/21 07:10 Myelocytes # 0.0 K/mm3 06/01/21 07:10 Promyelocytes # 0.0 K/mm3 06/01/21 07:10 Blast Cells # 0.0 K/mm3 06/01/21 07:10 WBC Morphology Not Reportable 06/01/21 07:10 WBC Morphology TNR 06/01/21 07:10 Hypersegmented Neuts Not Reportable 06/01/21 07:10 Hyposegmented Neuts Not Reportable 06/01/21 07:10 Hypogranular Neuts Not Reportable 06/01/21 07:10 Smudge Cells Not Reportable 06/01/21 07:10 Toxic Granulation Not Reportable 06/01/21 07:10 Toxic Vacuolation Not Reportable 06/01/21 07:10 Dohle Bodies Not Reportable 06/01/21 07:10 Pelger-Huet Anomaly Not Reportable 06/01/21 07:10 Kaci Rods Not Reportable 06/01/21 07:10 Platelet Estimate Consistent w auto 06/01/21 07:10 Clumped Platelets Not Reportable 06/01/21 07:10 Plt Clumps, EDTA Not Reportable 06/01/21 07:10 Large Platelets Not Reportable 06/01/21 07:10 Giant Platelets Not Reportable 06/01/21 07:10 Platelet Satelliting Not Reportable 06/01/21 07:10 Plt Morphology Comment Not Reportable 06/01/21 07:10 RBC Morphology Not Reportable 06/01/21 07:10 Dimorphic RBCs Not Reportable 06/01/21 07:10 Polychromasia Not Reportable 06/01/21 07:10 Hypochromasia Not Reportable 06/01/21 07:10 Poikilocytosis Not Reportable 06/01/21 07:10 Anisocytosis Not Reportable 06/01/21 07:10 Microcytosis Not Reportable 06/01/21 07:10 Macrocytosis Not Reportable 06/01/21 07:10 Spherocytes Not Reportable 06/01/21 07:10 Pappenheimer Bodies Not Reportable 06/01/21 07:10 Sickle Cells Not Reportable 06/01/21 07:10 Target Cells Few 06/01/21 07:10 Tear Drop Cells Not Reportable 06/01/21 07:10 Ovalocytes Not Reportable 06/01/21 07:10 Helmet Cells Not Reportable 06/01/21 07:10 [place] Bodies Not Reportable 06/01/21 07:10 [place] Rings Not Reportable 06/01/21 07:10 [place] Cells Not Reportable 06/01/21 07:10 Bite Cells Not Reportable 06/01/21 07:10 Crenated Cell Not Reportable 06/01/21 07:10 Elliptocytes Not Reportable 06/01/21 07:10 Acanthocytes (Spur) Not Reportable 06/01/21 07:10 Rouleaux Not Reportable 06/01/21 07:10 Hemoglobin C Crystals Not Reportable 06/01/21 07:10 Schistocytes Not Reportable 06/01/21 07:10 Malaria parasites Not Reportable 06/01/21 07:10 Dick Bodies Not Reportable 06/01/21 07:10 Hem Pathologist Commnt No 06/01/21 07:10 D-Dimer 3584.01 ng/mlDDU (0-234) H 05/27/21 08:09 ABG pH 7.454 pH Units (7.350-7.450) H 05/30/21 22:32 POC ABG pCO2 30.3 mmHg (32.0-48.0) L 05/29/21 17:58 ABG pCO2 29.0 mm Hg 05/30/21 22:32 POC ABG pO2 128.1 mmHg (83-108) H 05/29/21 17:58 ABG pO2 141.8 mm Hg (80.0-90.0) H 05/30/21 22:32 POC ABG HCO3 23.4 05/29/21 17:58 ABG HCO3 19.9 mmol/L (20.0-26.0) L 05/30/21 22:32 ABG O2 Saturation 98.8 % (95.0-99.0) 05/30/21 22:32 ABG O2 Content 19.9 (0.0-44) 05/30/21 22:32 POC ABG Base Excess 1.0 05/29/21 17:58 ABG Base Excess -2.7 mmol/L (-2.0-3.0) L 05/30/21 22:32 ABG Hemoglobin 14.4 gm/dl (14.0-18.0) 05/30/21 22:32 ABG Oxyhemoglobin 97.1 (94-98) 05/29/21 17:58 ABG Carboxyhemoglobin 1.1 % (0.0-5.0) 05/30/21 22:32 ABG Methemoglobin 0.6 % (0.0-1.5) 05/30/21 22:32 ABG Sodium 145.0 mmol/L (136.0-145.0) 05/29/21 17:58 ABG Potassium 3.5 mmol/L (3.40-4.50) 05/29/21 17:58 ABG Chloride 113.0 mmol/L (98-107) H 05/29/21 17:58 ABG Glucose 110 mg/dL (65-95) H 05/29/21 17:58 VBG pH 7.254 (7.320-7.420) L 05/24/21 02:09 Oxyhemoglobin 97.1 % (95.0-99.0) 05/30/21 22:32 Carboxyhemoglobin 1.2 (0.5-1.5) 05/29/21 17:58 FiO2 70 % 05/30/21 22:32 FiO2 % 80.0 05/29/21 17:58 Sodium 152 mmol/L (137-145) H 06/01/21 10:39 Potassium 4.0 mmol/L (3.6-5.0) 06/01/21 10:39 Chloride 117.6 mmol/L (98-107) H 06/01/21 10:39 Carbon Dioxide 25 mmol/L (22-30) 06/01/21 10:39 Anion Gap 13 mmol/L 06/01/21 10:39 BUN 50 mg/dL (9-20) H 06/01/21 10:39 Creatinine 1.2 mg/dL (0.8-1.3) 06/01/21 10:39 Estimated GFR > 60 ml/min 06/01/21 10:39 BUN/Creatinine Ratio 42 % 06/01/21 10:39 Glucose 140 mg/dL (75-100) H 06/01/21 10:39 POC Glucose 120 mg/dL (70-105) H 06/01/21 11:11 Lactic Acid 1.70 mmol/L (0.7-2.0) 05/24/21 09:39 Calcium 8.3 mg/dL (8.4-10.2) L 06/01/21 10:39 Phosphorus 2.70 mg/dL (2.5-4.5) 06/01/21 07:10 Magnesium 2.50 mg/dL (1.7-2.3) H 06/01/21 07:10 Ferritin 2742.0 ng/mL (30.0-300.0) H 05/27/21 08:09 Total Bilirubin 0.90 mg/dL (0.1-1.2) 05/23/21 18:48 AST 27 units/L (5-40) 05/23/21 18:48 ALT 7 units/L (7-56) 05/23/21 18:48 Alkaline Phosphatase 69 units/L (35-129) 05/23/21 18:48 Ammonia 22.0 umol/L (25-60) L 05/23/21 18:48 Lactate Dehydrogenase 642 units/L (91-180) H 05/27/21 08:09 Troponin T < 0.010 ng/mL (0.00-0.029) 05/23/21 18:48 C-Reactive Protein 5.20 mg/dL (0.00-1.30) H 05/27/21 08:09 Total Protein 9.4 g/dL (6.3-8.2) H 05/23/21 18:48 Albumin 3.0 g/dL (3.9-5) L 05/23/21 18:48 Albumin/Globulin Ratio 0.5 % 05/23/21 18:48 Procalcitonin 0.31 ng/mL (<0.15) 05/23/21 18:48 TSH 1.150 mlU/mL (0.270-4.200) 05/23/21 18:48 Arterial Blood Glucose 110 mg/dL (65-95) H 05/29/21 17:58 Arterial Blood Ionized Calcium 4.5 mg/dL (4.6-5.3) L 05/29/21 17:58 Urine Color Eli (Yellow) 05/30/21 01:00 Urine Turbidity Cloudy (Clear) 05/30/21 01:00 Urine pH 5.0 (5.0-7.0) 05/30/21 01:00 Ur Specific [place] 1.019 (1.003-1.030) 05/30/21 01:00 Urine Protein 100 mg/dl mg/dL (Negative) 05/30/21 01:00 Urine Glucose (UA) Neg mg/dL (Negative) 05/30/21 01:00 Urine Ketones Neg mg/dL (Negative) 05/30/21 01:00 Urine Blood Mod (Negative) 05/30/21 01:00 Urine Nitrite Neg (Negative) 05/30/21 01:00 Urine Bilirubin Neg (Negative) 05/30/21 01:00 Urine Urobilinogen 4.0 mg/dL (<2.0) 05/30/21 01:00 Ur Leukocyte Esterase Neg (Negative) 05/30/21 01:00 Urine WBC (Auto) 12.0 /HPF (0.0-6.0) H 05/30/21 01:00 Urine RBC (Auto) 21.0 /HPF (0.0-6.0) 05/30/21 01:00 U Epithel Cells (Auto) 2.0 /HPF (0-13.0) 05/30/21 01:00 Uric Acid Crystals Few 05/30/21 01:00 Urine Mucus Few /HPF 05/30/21 01:00 Urine Yeast (Budding) 2+ /HPF 05/30/21 01:00 Vancomycin Trough 20.2 ug/mL (5.0-20.0) H 05/31/21 11:42 Plasma/Serum Alcohol < 0.01 % (0-0.07) 05/23/21 18:48 Proteinase 3 (PR3) Ab <1.0 AI (<1.0) 05/24/21 20:57 Myeloperoxidase Ab <1.0 AI (<1.0) 05/24/21 20:57 Complement C3 108 mg/dL (82-185) 05/24/21 20:57 Complement C4 29 mg/dL (15-53) 05/24/21 20:57 Coronavirus (PCR) Negative (Negative) 05/26/21 08:41 Blood Type A POSITIVE 05/29/21 08:15 Antibody Screen Negative 05/29/21 08:15 Microbiology: Microbiology 05/29/21 06:40 Peripheral/Venous Blood Culture - Preliminary NO GROWTH AFTER 72 HOURS 05/29/21 08:16 Peripheral/Venous Blood Culture - Preliminary NO GROWTH AFTER 72 HOURS 05/31/21 00:04 Peripheral/Venous Blood Culture - Preliminary NO GROWTH AFTER 24 HOURS 05/30/21 23:32 Peripheral/Venous Blood Culture - Preliminary NO GROWTH AFTER 24 HOURS 05/30/21 Unknown Urine,Catheterized - Straight Catheter Urine Culture - Final [place] Albicans Heart/IV: Voiding Method Condom Catheter Active Medications - Current Medications Current Medications: Generic Name Dose Route Start Last Admin Trade Name Freq PRN Reason Stop Dose Admin Acetaminophen 650 mg 05/29/21 07:05 05/30/21 22:48 Acetaminophen 325 Mg Tab PO 650 mg Q6H PRN Administration Pain, Mild (1-3) Heparin Sodium (Porcine) 5,000 unit 05/24/21 06:00 06/01/21 14:39 Heparin 5,000 Unit/1 Ml Vial SUB-Q 5,000 unit Q8HR MIKE Administration Cefepime HCl 2 gm in 100 mls @ 200 mls/hr 05/29/21 14:00 06/01/21 14:38 Cefepime/Ns 2 Gm/100 Ml IV 200 mls/hr Q8HR MIKE Administration Protocol Metronidazole 500 mg in 100 mls @ 100 mls/hr 05/29/21 16:00 06/01/21 10:55 Flagyl 500 Mg/100 Ml IV 100 mls/hr Q8H MIKE Administration Protocol Dextrose 1,000 mls @ 125 mls/hr 05/31/21 15:00 05/31/21 14:54 D5w IV 125 mls/hr DIRECT MIKE Administration Vancomycin HCl 750 mg/ Sodium 265 mls @ 166.667 mls/hr 06/01/21 00:00 06/01/21 12:00 Chloride IV 166.667 mls/hr Q12H MIKE Administration Sodium Bicarbonate 100 meq/ 1,100 mls @ 100 mls/hr 05/31/21 19:00 Sterile Water IV 06/05/21 05:59 DIRECT MIKE Magnesium Hydroxide 30 ml 05/23/21 22:01 Magnesium Hydroxide (Mom) Oral Liqd Udc PO Q4H PRN Constipation Morphine Sulfate 2 mg 05/23/21 22:01 05/25/21 06:28 Morphine 2 Mg/1 Ml Inj IV 2 mg Q4H PRN Administration Pain, Moderate (4-6) Morphine Sulfate 4 mg 05/23/21 22:01 Morphine 4 Mg/1 Ml Inj IV Q4H PRN Pain , Severe (7-10) Sodium Chloride 10 ml 05/24/21 10:00 06/01/21 10:54 Sodium Chloride 0.9% 10 Ml Flush Syringe IV 10 ml BID MIKE Administration Sodium Chloride 10 ml 05/23/21 22:01 Sodium Chloride 0.9% 10 Ml Flush Syringe IV PRN PRN LINE FLUSH Nutrition/Malnutrition Assess - Dietary Evaluation Nutrition/Malnutrition Findings: Nutrition Notes Start: 05/25/21 09:33 Freq: Status: Active Protocol: Document 05/30/21 08:26 GB (Rec: 05/30/21 09:04 GB [id number]) Nutrition Notes Initial or Follow up Reassessment Current Diagnosis Acute Kidney Injury Other Pertinent Diagnosis pneu, COVID PUI, encephalopathy Current Diet Pureed Labs/Tests 05/30: Na 150, BUN 40, Ca 8.3 Pertinent Medications D5 1/2 NS at 125 ml/hr Kionex Height 5 ft 11 in Weight 77.11 kg [place] Body Weight (kg) 78.18 BMI 23.7 Weight change and time frame no changes recorded Weight Status Appropriate Subjective/Other Information Per discussion w/RN Dobhoff for flush only, diet is puree, RD to confirm order for nutritional supplement beverage. Pt needs assistance with meals. 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 Burn Absent Trauma Absent Food Allergy No Current % PO Other Minimum of two criteria No #1 Nutrition Diagnosis Inadequate oral intake Comments: Nutritional supplement beverage ordered Etiology acute illness As Evidenced by Signs and Symptoms decreased PO for 10-12 days [employer] Diagnosis Progress(for reassessment Continues documentation) Is patient on ventilator? No Is Patient Ambulatory and/or Out of Bed Yes REE-([place]-St. Jeor-ambulatory/OOB) [ 3.199 NUTR.[id number]] Kcal/Kg value to use for calculation 25 Approximate Energy Requirements Using 1928 kcal/Kg Calculation Used for Recommendations Kcal/kg Additional Notes Protein 1-1.2 g/kg @77k- 92g Nutrition Intervention Change Diet Order: continue Add Supplement/Snack (indicate name/kcal Nepro BID /protein ) Provides kCal: 850 Provides Protein (gm) 38 Goal #1 PO intake of meals to be 75% or greater TID daily for LOS Goal #2 PO intake of supplement beverage to be 50% or greater BID daily for LOS Goal #3 Weight to maintain within +/-3 % current weight for LOS Follow-Up By: 06/06/21 - Attestation Statement I have reviewed and agreed w/ Malnutrition eval & tx plan: Yes
--- NOTE | 2021-06-01 15:00 | Progress Note ---
Assessment and Plan Impression: * Acute kidney injury secondary to ATN likely related to COVID 19 * Acute hypoxic respiratory failure secondary to COVID 19 PNA * Azotemia * Hyperkalemia * Metabolic acidosis * Hypernatremia Plan: * Continue D5W with close monitoring of glucose * Replace NG tube for free water replacement 400 ml Q3h * Patient is s/p kayexelate daily x 3 days, now with K at goal * Keep MAP>65 * Management of COVID 19 PNA to primary team/ID * Dose medications for renal function * AM labs * Renal diet * Prognosis guarded Subjective Date of service: 06/01/21 Principal diagnosis: Pneumonia Interval history: Nursing, interdisciplinary and consult notes were reviewed Vitals, input and output, medications and labs were reviewed On 10 L NC this morning More alert this morning Objective - Exam Narrative Exam: General: No acute distress Neck: Supple, no JVD. NG tube noted. Chest: Decreased bibasilar breath sounds Heart: RRR, S1 and S2, no pericardial rub Abdomen: Soft, nontender, no renal bruit Extremity: No peripheral cyanosis, edema Neurological: Awake and alert Dermatology: No skin rash Psych: Calm, cooperative Musculoskeletal: No joint effusion - Vital Signs Vital signs: Vital Signs - 12hr 06/01/21 06/01/21 03:00 04:54 Temperature 65.0 F L Pulse Rate 82 Respiratory 20 Rate Blood Pressure 134/77 O2 Sat by Pulse 92 91 Oximetry - Lab 06/01/21 07:10 06/01/21 10:39 Most recent lab results ABG pH 7.454 pH Units (7.350-7.450) H 05/30/21 22:32 ABG pCO2 29.0 mm Hg 05/30/21 22:32 ABG pO2 141.8 mm Hg (80.0-90.0) H 05/30/21 22:32 ABG HCO3 19.9 mmol/L (20.0-26.0) L 05/30/21 22:32 ABG O2 Saturation 98.8 % (95.0-99.0) 05/30/21 22:32 Calcium 8.3 mg/dL (8.4-10.2) L 06/01/21 10:39 Phosphorus 2.70 mg/dL (2.5-4.5) 06/01/21 07:10 Magnesium 2.50 mg/dL (1.7-2.3) H 06/01/21 07:10 Medications & Allergies - Medications Allergies/Adverse Reactions: Allergies No Known Allergies Allergy (Unverified 02/12/17 15:47) Home Medications: Home Medications Medication Instructions Recorded Confirmed Last Taken Type No Known Home Medications [No 05/31/21 05/31/21 Unknown History Reported Home Medications] Active Medications: Generic Name Dose Route Start Last Admin Trade Name Freq PRN Reason Stop Dose Admin Acetaminophen 650 mg 05/29/21 07:05 05/30/21 22:48 Acetaminophen 325 Mg Tab PO 650 mg Q6H PRN Administration Pain, Mild (1-3) Heparin Sodium (Porcine) 5,000 unit 05/24/21 06:00 06/01/21 14:39 Heparin 5,000 Unit/1 Ml Vial SUB-Q 5,000 unit Q8HR MIKE Administration Cefepime HCl 2 gm in 100 mls @ 200 mls/hr 05/29/21 14:00 06/01/21 14:38 Cefepime/Ns 2 Gm/100 Ml IV 200 mls/hr Q8HR MIKE Administration Protocol Metronidazole 500 mg in 100 mls @ 100 mls/hr 05/29/21 16:00 06/01/21 10:55 Flagyl 500 Mg/100 Ml IV 100 mls/hr Q8H MIKE Administration Protocol Dextrose 1,000 mls @ 125 mls/hr 05/31/21 15:00 05/31/21 14:54 D5w IV 125 mls/hr DIRECT MIKE Administration Vancomycin HCl 750 mg/ Sodium 265 mls @ 166.667 mls/hr 06/01/21 00:00 06/01/21 12:00 Chloride IV 166.667 mls/hr Q12H MIKE Administration Sodium Bicarbonate 100 meq/ 1,100 mls @ 100 mls/hr 05/31/21 19:00 Sterile Water IV 06/05/21 05:59 DIRECT MIKE Magnesium Hydroxide 30 ml 05/23/21 22:01 Magnesium Hydroxide (Mom) Oral Liqd Udc PO Q4H PRN Constipation Morphine Sulfate 2 mg 05/23/21 22:01 05/25/21 06:28 Morphine 2 Mg/1 Ml Inj IV 2 mg Q4H PRN Administration Pain, Moderate (4-6) Morphine Sulfate 4 mg 05/23/21 22:01 Morphine 4 Mg/1 Ml Inj IV Q4H PRN Pain , Severe (7-10) Sodium Chloride 10 ml 05/24/21 10:00 06/01/21 10:54 Sodium Chloride 0.9% 10 Ml Flush Syringe IV 10 ml BID MIKE Administration Sodium Chloride 10 ml 05/23/21 22:01 Sodium Chloride 0.9% 10 Ml Flush Syringe IV PRN PRN LINE FLUSH
[2021-06-01] MEDS: SODIUM BICARBONATE 100 MEQ in WATER FOR INJECTION (PF) 1,000 ML IV SCH (21:28)
[2021-06-01] MEDS: ACETAMINOPHEN 325 MG TAB PO PRN (21:31)
[2021-06-02] MEDS: FREE WATER PO SCH ×9 (01:52→23:36)
[2021-06-02] MEDS: HEPARIN 5,000 UNIT/1 ML VIAL SUB-Q SCH ×3 (06:04→22:25)
[2021-06-02 07:15] LABS: Hematocrit 32.4 % (35.5-45.6); Hemoglobin 10.4 gm/dl (11.8-15.2); Mean Corpuscular HGB Conc 32 % (32-34); Mean Corpuscular Volume 85 fl (84-94); Platelet Count 160 K/mm3 (140-440); Red Blood Count 3.84 M/mm3 (3.65-5.03); Red Cell Distribution Width 14.7 % (13.2-15.2)
[2021-06-02 07:31] LABS: BUN/Creatinine Ratio 49; Blood Urea Nitrogen 54 mg/dL (9-20); Calcium 8.2 mg/dL (8.4-10.2); Hemolysis Index 3
--- NOTE | 2021-06-02 10:13 | Progress Note ---
Subjective Date of service: 06/02/21 Principal diagnosis: Pneumonia Interval history: Impression: * Acute kidney injury secondary to ATN likely related to COVID 19 * Acute hypoxic respiratory failure secondary to COVID 19 PNA * Azotemia * Hyperkalemia * Metabolic acidosis * Hypernatremia Plan: * Continue D5W with close monitoring of glucose * Replace NG tube for free water replacement * Patient is s/p kayexelate, now with K at goal * Keep MAP>65 * Management of COVID 19 PNA to primary team/ID * Dose medications for renal function * AM labs * Renal diet * follow up lytes prn * Prognosis guarded Subjective Date of service: 06/01/21 Principal diagnosis: Pneumonia Interval history: Nursing, interdisciplinary and consult notes were reviewed Vitals, input and output, medications and labs were reviewed Objective exam deferred for preservation of PPE, primary team exam noted Objective - Vital Signs Vital signs: Vital Signs - 12hr 06/02/21 05:02 Temperature 97.3 F L Pulse Rate 68 Respiratory 16 Rate Blood Pressure 133/74 O2 Sat by Pulse 96 Oximetry - Lab 06/02/21 06:53 06/02/21 06:53 Most recent lab results ABG pH 7.454 pH Units (7.350-7.450) H 05/30/21 22:32 ABG pCO2 29.0 mm Hg 05/30/21 22:32 ABG pO2 141.8 mm Hg (80.0-90.0) H 05/30/21 22:32 ABG HCO3 19.9 mmol/L (20.0-26.0) L 05/30/21 22:32 ABG O2 Saturation 98.8 % (95.0-99.0) 05/30/21 22:32 Calcium 8.2 mg/dL (8.4-10.2) L 06/02/21 06:53 Phosphorus 3.80 mg/dL (2.5-4.5) D 06/02/21 06:53 Magnesium 2.20 mg/dL (1.7-2.3) 06/02/21 06:53 Medications & Allergies - Medications Allergies/Adverse Reactions: Allergies No Known Allergies Allergy (Unverified 02/12/17 15:47) Home Medications: Home Medications Medication Instructions Recorded Confirmed Last Taken Type No Known Home Medications [No 05/31/21 05/31/21 Unknown History Reported Home Medications] Active Medications: Generic Name Dose Route Start Last Admin Trade Name Aramis PRN Reason Stop Dose Admin Acetaminophen 650 mg 05/29/21 07:05 06/01/21 21:31 Acetaminophen 325 Mg Tab PO 650 mg Q6H PRN Administration Pain, Mild (1-3) Heparin Sodium (Porcine) 5,000 unit 05/24/21 06:00 06/02/21 06:04 Heparin 5,000 Unit/1 Ml Vial SUB-Q 5,000 unit Q8HR MIKE Administration Dextrose 1,000 mls @ 175 mls/hr 05/31/21 15:00 06/01/21 20:44 D5w IV Infused DIRECT MIKE Infusion Sodium Bicarbonate 100 meq/ 1,100 mls @ 100 mls/hr 05/31/21 19:00 06/01/21 21:28 Sterile Water IV 06/05/21 05:59 100 mls/hr DIRECT MIKE Administration Magnesium Hydroxide 30 ml 05/23/21 22:01 Magnesium Hydroxide (Mom) Oral Liqd Udc PO Q4H PRN Constipation Morphine Sulfate 2 mg 05/23/21 22:01 05/25/21 06:28 Morphine 2 Mg/1 Ml Inj IV 2 mg Q4H PRN Administration Pain, Moderate (4-6) Morphine Sulfate 4 mg 05/23/21 22:01 Morphine 4 Mg/1 Ml Inj IV Q4H PRN Pain , Severe (7-10) Sodium Chloride 10 ml 05/24/21 10:00 06/01/21 21:29 Sodium Chloride 0.9% 10 Ml Flush Syringe IV 10 ml BID MIKE Administration Sodium Chloride 10 ml 05/23/21 22:01 Sodium Chloride 0.9% 10 Ml Flush Syringe IV PRN PRN LINE FLUSH
[2021-06-02] MEDS: SODIUM BICARBONATE 100 MEQ in WATER FOR INJECTION (PF) 1,000 ML IV SCH (11:54)
--- NOTE | 2021-06-02 12:31 | Progress Note ---
Assessment and Plan Assessment and plan: #Acute hypoxic respiratory failure-stable -Currently on 5 L nasal cannula; will possibly need oxygen upon discharge -Pulmonology consulted; appreciate recs -D-dimer greater than 10,000 (on presentation) -VQ scan low probability for PE -will continue to monitor #Severe sepsis-resolved -Blood cultures NGTD x 4 day; discontinued all antibiotics (cefepime, vancom ycin, Flagyl) which were on for -UA revealing 12 WBCs with urine culture positive for [place]. Patient however denies any urinary symptoms. -Unsure of source. Chest x-ray negative, UA technically asymptomatic bacteriuria, blood cultures negative (yet pending), and no visible source on skin. Unsure if fevers are secondary to delayed Covid response. -Likely secondary to Covid pneumonia -repeat COVID-19 PCR negative #Lactic acidosis-resolved -Lactate 2.3 -> 1.70 #Acute metabolic encephalopathy-resolved -CT head negative, ammonia 22 -Patient cooperative follows commands; however, patient is still not at baseline -Clinical improvement in mentation seen with improvement of hypernatremia on 05/28/2021. Discussed with patient's daughter to determine better understanding of patient's baseline mental status -Acute decline in mental status on 05/29/2021; will continue to monitor and see if improvement comes with improvement in oxygenation -Improvement in mental status on 05/30/2021; mental decline was likely due to acute hypoxia that was resolved with initiation of BiPAP therapy #ANGELES-improved -Creatinine 1.1 -Likely prerenal secondary to volume depletion after several days of no oral intake -Renal ultrasound unremarkable -Nephrology consulted, recs appreciated -will avoid nephrotoxic agents #Hyperkalemia-resolved -will continue to monitor #Pneumonia-resolved -Completed azithromycin and Rocephin -Repeat chest x-ray on 05/29/2021 was negative #COVID-19 infection -Diagnosed on 05/11 -D-dimer greater than 10,000, ferritin 2000, LDH 577, CRP 8.8 -ID consulted, assistance appreciated -Continue steroids x10 days and vitamins (steroids end on 06/06/2021) #Hypernatremia - Na 174-->162-->148-->150-->149 -Unable to continue free water flushes at 400 cc every 3 hours due to patient removing NG tube. Will increase D5W to 175 cc/hr -Likely secondary to almost 2 weeks no oral intake -Consulted nephrology (appreciate recs) #Discharge planning -Patient will likely need home O2 upon discharge -Pending final physical therapy recs to determine SNF versus rehab versus home with home health Disposition Plan: Continue medical manage Total Time Spent with Patient (Minutes): 35 History Interval history: No acute events overnight Hospitalist Physical - Constitutional Vitals: Temp Pulse Resp BP Pulse Ox 97.3 F L 68 16 133/74 96 06/02/21 05:02 06/02/21 05:02 06/02/21 05:02 06/02/21 05:02 06/02/21 05:02 General appearance: Present: no acute distress, cachectic - EENT Eyes: Present: PERRL, EOM intact ENT: hearing intact, dentition normal - Neck Neck: Present: supple, normal ROM - Respiratory Respiratory effort: normal (Currently on 5 L nasal can) Respiratory: bilateral: diminished, negative: rales, rhonchi, wheezing - Cardiovascular Rhythm: regular Heart Sounds: Present: S1 & S2 (Diffuse) - Extremities Extremities: no ischemia, pulses intact, pulses symmetrical, No edema, normal temperature, normal color Peripheral Pulses: within normal limits - Abdominal General gastrointestinal: soft, non-tender, non-distended, normal bowel sounds - Integumentary Integumentary: Present: clear, warm, dry - Psychiatric Psychiatric: appropriate mood/affect, intact judgment & insight, cooperative - Neurologic Neurologic: CNII-XII intact, other (Alert and oriented x2; decreased strength overall) - Allied Health Allied health notes reviewed: nursing HEART Score - HEART Score EKG: Non-specific Age: 45-65 Risk factors: 1-2 risk factors Troponin: Troponin T < 0.010 ng/mL (0.00-0.029) 05/23/21 18:48 - Critical Actions Critical Actions: 0-3 pts:0.9-1.7%risk of adverse cardiac event.Candidate for discharge Results - Labs CBC & Chem 7: 06/02/21 06:53 06/02/21 06:53 Labs: Laboratory Last Values WBC 6.5 K/mm3 (4.5-11.0) 06/02/21 06:53 RBC 3.84 M/mm3 (3.65-5.03) 06/02/21 06:53 Hgb 10.4 gm/dl (11.8-15.2) L 06/02/21 06:53 Hct 32.4 % (35.5-45.6) L 06/02/21 06:53 MCV 85 fl (84-94) 06/02/21 06:53 MCH 27 pg (28-32) L 06/02/21 06:53 MCHC 32 % (32-34) 06/02/21 06:53 RDW 14.7 % (13.2-15.2) 06/02/21 06:53 Plt Count 160 K/mm3 (140-440) 06/02/21 06:53 Lymph % (Auto) [employer] 06/01/21 07:10 [place] % (Auto) [employer] 06/01/21 07:10 Eos % (Auto) [employer] 06/01/21 07:10 Baso % (Auto) [employer] 06/01/21 07:10 Lymph # (Auto) [employer] 06/01/21 07:10 [place] # (Auto) [employer] 06/01/21 07:10 Eos # (Auto) [employer] 06/01/21 07:10 Baso # (Auto) [employer] 06/01/21 07:10 Add Manual Diff Complete 06/01/21 07:10 Total Counted 100 06/01/21 07:10 Seg Neutrophils % [employer] 06/01/21 07:10 Seg Neuts % (Manual) 92.0 % (40.0-70.0) H 06/01/21 07:10 Band Neutrophils % 1.0 % 05/31/21 02:22 Lymphocytes % (Manual) 4.0 % (13.4-35.0) L 06/01/21 07:10 Reactive Lymphs % (Man) 1.0 % 06/01/21 07:10 Monocytes % (Manual) 3.0 % (0.0-7.3) 06/01/21 07:10 Nucleated RBC % Not Reportable 06/01/21 07:10 Seg Neutrophils # [employer] 06/01/21 07:10 Seg Neutrophils # Man 6.8 K/mm3 (1.8-7.7) 06/01/21 07:10 Band Neutrophils # 0.0 K/mm3 06/01/21 07:10 Lymphocytes # (Manual) 0.3 K/mm3 (1.2-5.4) L 06/01/21 07:10 Abs React Lymphs (Man) 0.1 K/mm3 06/01/21 07:10 Monocytes # (Manual) 0.2 K/mm3 (0.0-0.8) 06/01/21 07:10 Eosinophils # (Manual) 0.0 K/mm3 (0.0-0.4) 06/01/21 07:10 Basophils # (Manual) 0.0 K/mm3 (0.0-0.1) 06/01/21 07:10 Metamyelocytes # 0.0 K/mm3 06/01/21 07:10 Myelocytes # 0.0 K/mm3 06/01/21 07:10 Promyelocytes # 0.0 K/mm3 06/01/21 07:10 Blast Cells # 0.0 K/mm3 06/01/21 07:10 WBC Morphology Not Reportable 06/01/21 07:10 WBC Morphology TNR 06/01/21 07:10 Hypersegmented Neuts Not Reportable 06/01/21 07:10 Hyposegmented Neuts Not Reportable 06/01/21 07:10 Hypogranular Neuts Not Reportable 06/01/21 07:10 Smudge Cells Not Reportable 06/01/21 07:10 Toxic Granulation Not Reportable 06/01/21 07:10 Toxic Vacuolation Not Reportable 06/01/21 07:10 Dohle Bodies Not Reportable 06/01/21 07:10 Pelger-Huet Anomaly Not Reportable 06/01/21 07:10 Kaci Rods Not Reportable 06/01/21 07:10 Platelet Estimate Consistent w auto 06/01/21 07:10 Clumped Platelets Not Reportable 06/01/21 07:10 Plt Clumps, EDTA Not Reportable 06/01/21 07:10 Large Platelets Not Reportable 06/01/21 07:10 Giant Platelets Not Reportable 06/01/21 07:10 Platelet Satelliting Not Reportable 06/01/21 07:10 Plt Morphology Comment Not Reportable 06/01/21 07:10 RBC Morphology Not Reportable 06/01/21 07:10 Dimorphic RBCs Not Reportable 06/01/21 07:10 Polychromasia Not Reportable 06/01/21 07:10 Hypochromasia Not Reportable 06/01/21 07:10 Poikilocytosis Not Reportable 06/01/21 07:10 Anisocytosis Not Reportable 06/01/21 07:10 Microcytosis Not Reportable 06/01/21 07:10 Macrocytosis Not Reportable 06/01/21 07:10 Spherocytes Not Reportable 06/01/21 07:10 Pappenheimer Bodies Not Reportable 06/01/21 07:10 Sickle Cells Not Reportable 06/01/21 07:10 Target Cells Few 06/01/21 07:10 Tear Drop Cells Not Reportable 06/01/21 07:10 Ovalocytes Not Reportable 06/01/21 07:10 Helmet Cells Not Reportable 06/01/21 07:10 [place]-Foot [place] Ten Bodies Not Reportable 06/01/21 07:10 [place] Rings Not Reportable 06/01/21 07:10 [place] Cells Not Reportable 06/01/21 07:10 Bite Cells Not Reportable 06/01/21 07:10 Crenated Cell Not Reportable 06/01/21 07:10 Elliptocytes Not Reportable 06/01/21 07:10 Acanthocytes (Spur) Not Reportable 06/01/21 07:10 Rouleaux Not Reportable 06/01/21 07:10 Hemoglobin C Crystals Not Reportable 06/01/21 07:10 Schistocytes Not Reportable 06/01/21 07:10 Malaria parasites Not Reportable 06/01/21 07:10 Dick Bodies Not Reportable 06/01/21 07:10 Hem Pathologist Commnt No 06/01/21 07:10 D-Dimer 3584.01 ng/mlDDU (0-234) H 05/27/21 08:09 ABG pH 7.454 pH Units (7.350-7.450) H 05/30/21 22:32 POC ABG pCO2 30.3 mmHg (32.0-48.0) L 05/29/21 17:58 ABG pCO2 29.0 mm Hg 05/30/21 22:32 POC ABG pO2 128.1 mmHg (83-108) H 05/29/21 17:58 ABG pO2 141.8 mm Hg (80.0-90.0) H 05/30/21 22:32 POC ABG HCO3 23.4 05/29/21 17:58 ABG HCO3 19.9 mmol/L (20.0-26.0) L 05/30/21 22:32 ABG O2 Saturation 98.8 % (95.0-99.0) 05/30/21 22:32 ABG O2 Content 19.9 (0.0-44) 05/30/21 22:32 POC ABG Base Excess 1.0 05/29/21 17:58 ABG Base Excess -2.7 mmol/L (-2.0-3.0) L 05/30/21 22:32 ABG Hemoglobin 14.4 gm/dl (14.0-18.0) 05/30/21 22:32 ABG Oxyhemoglobin 97.1 (94-98) 05/29/21 17:58 ABG Carboxyhemoglobin 1.1 % (0.0-5.0) 05/30/21 22:32 ABG Methemoglobin 0.6 % (0.0-1.5) 05/30/21 22:32 ABG Sodium 145.0 mmol/L (136.0-145.0) 05/29/21 17:58 ABG Potassium 3.5 mmol/L (3.40-4.50) 05/29/21 17:58 ABG Chloride 113.0 mmol/L (98-107) H 05/29/21 17:58 ABG Glucose 110 mg/dL (65-95) H 05/29/21 17:58 VBG pH 7.254 (7.320-7.420) L 05/24/21 02:09 Oxyhemoglobin 97.1 % (95.0-99.0) 05/30/21 22:32 Carboxyhemoglobin 1.2 (0.5-1.5) 05/29/21 17:58 FiO2 70 % 05/30/21 22:32 FiO2 % 80.0 05/29/21 17:58 Sodium 149 mmol/L (137-145) H 06/02/21 06:53 Potassium 4.1 mmol/L (3.6-5.0) 06/02/21 06:53 Chloride 112.6 mmol/L (98-107) H 06/02/21 06:53 Carbon Dioxide 30 mmol/L (22-30) 06/02/21 06:53 Anion Gap 11 mmol/L 06/02/21 06:53 BUN 54 mg/dL (9-20) H 06/02/21 06:53 Creatinine 1.1 mg/dL (0.8-1.3) 06/02/21 06:53 Estimated GFR > 60 ml/min 06/02/21 06:53 BUN/Creatinine Ratio 49 % 06/02/21 06:53 Glucose 123 mg/dL (75-100) H 06/02/21 06:53 POC Glucose 101 mg/dL (70-105) 06/02/21 11:49 Lactic Acid 1.70 mmol/L (0.7-2.0) 05/24/21 09:39 Calcium 8.2 mg/dL (8.4-10.2) L 06/02/21 06:53 Phosphorus 3.80 mg/dL (2.5-4.5) D 06/02/21 06:53 Magnesium 2.20 mg/dL (1.7-2.3) 06/02/21 06:53 Ferritin 2742.0 ng/mL (30.0-300.0) H 05/27/21 08:09 Total Bilirubin 0.90 mg/dL (0.1-1.2) 05/23/21 18:48 AST 27 units/L (5-40) 05/23/21 18:48 ALT 7 units/L (7-56) 05/23/21 18:48 Alkaline Phosphatase 69 units/L (35-129) 05/23/21 18:48 Ammonia 22.0 umol/L (25-60) L 05/23/21 18:48 Lactate Dehydrogenase 642 units/L (91-180) H 05/27/21 08:09 Troponin T < 0.010 ng/mL (0.00-0.029) 05/23/21 18:48 C-Reactive Protein 5.20 mg/dL (0.00-1.30) H 05/27/21 08:09 Total Protein 9.4 g/dL (6.3-8.2) H 05/23/21 18:48 Albumin 3.0 g/dL (3.9-5) L 05/23/21 18:48 Albumin/Globulin Ratio 0.5 % 05/23/21 18:48 Procalcitonin 0.31 ng/mL (<0.15) 05/23/21 18:48 TSH 1.150 mlU/mL (0.270-4.200) 05/23/21 18:48 Arterial Blood Glucose 110 mg/dL (65-95) H 05/29/21 17:58 Arterial Blood Ionized Calcium 4.5 mg/dL (4.6-5.3) L 05/29/21 17:58 Urine Color Eli (Yellow) 05/30/21 01:00 Urine Turbidity Cloudy (Clear) 05/30/21 01:00 Urine pH 5.0 (5.0-7.0) 05/30/21 01:00 Ur Specific [place] 1.019 (1.003-1.030) 05/30/21 01:00 Urine Protein 100 mg/dl mg/dL (Negative) 05/30/21 01:00 Urine Glucose (UA) Neg mg/dL (Negative) 05/30/21 01:00 Urine Ketones Neg mg/dL (Negative) 05/30/21 01:00 Urine Blood Mod (Negative) 05/30/21 01:00 Urine Nitrite Neg (Negative) 05/30/21 01:00 Urine Bilirubin Neg (Negative) 05/30/21 01:00 Urine Urobilinogen 4.0 mg/dL (<2.0) 05/30/21 01:00 Ur Leukocyte Esterase Neg (Negative) 05/30/21 01:00 Urine WBC (Auto) 12.0 /HPF (0.0-6.0) H 05/30/21 01:00 Urine RBC (Auto) 21.0 /HPF (0.0-6.0) 05/30/21 01:00 U Epithel Cells (Auto) 2.0 /HPF (0-13.0) 05/30/21 01:00 Uric Acid Crystals Few 05/30/21 01:00 Urine Mucus Few /HPF 05/30/21 01:00 Urine Yeast (Budding) 2+ /HPF 05/30/21 01:00 Vancomycin Trough 20.2 ug/mL (5.0-20.0) H 05/31/21 11:42 Plasma/Serum Alcohol < 0.01 % (0-0.07) 05/23/21 18:48 Proteinase 3 (PR3) Ab <1.0 AI (<1.0) 05/24/21 20:57 Myeloperoxidase Ab <1.0 AI (<1.0) 05/24/21 20:57 Complement C3 108 mg/dL (82-185) 05/24/21 20:57 Complement C4 29 mg/dL (15-53) 05/24/21 20:57 Coronavirus (PCR) Negative (Negative) 05/26/21 08:41 Blood Type A POSITIVE 05/29/21 08:15 Antibody Screen Negative 05/29/21 08:15 Microbiology: Microbiology 05/29/21 06:40 Peripheral/Venous Blood Culture - Preliminary NO GROWTH AFTER 4 DAYS 05/29/21 08:16 Peripheral/Venous Blood Culture - Preliminary NO GROWTH AFTER 4 DAYS 05/31/21 00:04 Peripheral/Venous Blood Culture - Preliminary NO GROWTH AFTER 48 HOURS 05/30/21 23:32 Peripheral/Venous Blood Culture - Preliminary NO GROWTH AFTER 48 HOURS Heart/IV: Voiding Method Condom Catheter Active Medications - Current Medications Current Medications: Generic Name Dose Route Start Last Admin Trade Name Freq PRN Reason Stop Dose Admin Acetaminophen 650 mg 05/29/21 07:05 06/01/21 21:31 Acetaminophen 325 Mg Tab PO 650 mg Q6H PRN Administration Pain, Mild (1-3) Heparin Sodium (Porcine) 5,000 unit 05/24/21 06:00 06/02/21 06:04 Heparin 5,000 Unit/1 Ml Vial SUB-Q 5,000 unit Q8HR MIKE Administration Dextrose 1,000 mls @ 175 mls/hr 05/31/21 15:00 06/01/21 20:44 D5w IV Infused DIRECT MIKE Infusion Sodium Bicarbonate 100 meq/ 1,100 mls @ 100 mls/hr 05/31/21 19:00 06/02/21 11 :54 Sterile Water IV 06/02/21 18:59 100 mls/hr DIRECT MIKE Administration Magnesium Hydroxide 30 ml 05/23/21 22:01 Magnesium Hydroxide (Mom) Oral Liqd Udc PO Q4H PRN Constipation Morphine Sulfate 2 mg 05/23/21 22:01 05/25/21 06:28 Morphine 2 Mg/1 Ml Inj IV 2 mg Q4H PRN Administration Pain, Moderate (4-6) Morphine Sulfate 4 mg 05/23/21 22:01 Morphine 4 Mg/1 Ml Inj IV Q4H PRN Pain , Severe (7-10) Sodium Chloride 10 ml 05/24/21 10:00 06/02/21 11:55 Sodium Chloride 0.9% 10 Ml Flush Syringe IV 10 ml BID MIKE Administration Sodium Chloride 10 ml 05/23/21 22:01 Sodium Chloride 0.9% 10 Ml Flush Syringe IV PRN PRN LINE FLUSH Nutrition/Malnutrition Assess - Dietary Evaluation Nutrition/Malnutrition Findings: Nutrition Notes Start: 05/25/21 09:33 Freq: Status: Active Protocol: Document 05/30/21 08:26 GB (Rec: 05/30/21 09:04 GB [id number]) Nutrition Notes Initial or Follow up Reassessment Current Diagnosis Acute Kidney Injury Other Pertinent Diagnosis pneu, COVID PUI, encephalopathy Current Diet Pureed Labs/Tests 05/30: Na 150, BUN 40, Ca 8.3 Pertinent Medications D5 1/2 NS at 125 ml/hr Kionex Height 5 ft 11 in Weight 77.11 kg [place] Body Weight (kg) 78.18 BMI 23.7 Weight change and time frame no changes recorded Weight Status Appropriate Subjective/Other Information Per discussion w/RN Dobhoff for flush only, diet is puree, RD to confirm order for nutritional supplement beverage. Pt needs assistance with meals. Per ILLUSTRATOR SET note no aspirations with swallow, pureed diet with thin liquids Percent of energy/protein needs met: PO intake 75% or greater of meals and 50% or greater of supplement beverages meets 100 % of estimated energy needs. 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 No Is Patient Ambulatory and/or Out of Bed Yes REE-([facility]-ambulatory/OOB) [ 2123.199 [id number]] Kcal/Kg value to use for calculation 25 Approximate Energy Requirements Using 1928 kcal/Kg Calculation Used for Recommendations Kcal/kg Additional Notes Protein 1-1.2 g/kg @77k- 92g Nutrition Intervention Change Diet Order: continue Add Supplement/Snack (indicate name/kcal Nepro BID /protein ) Provides kCal: 850 Provides Protein (gm) 38 Goal #1 PO intake of meals to be 75% or greater TID daily for LOS Goal #2 PO intake of supplement beverage to be 50% or greater BID daily for LOS Goal #3 Weight to maintain within +/-3 % current weight for LOS Follow-Up By: 06/06/21 - Attestation Statement I have reviewed and agreed w/ Malnutrition eval & tx plan: Yes
[2021-06-02 16:10] LABS: Band Neutrophils # (Manual) 0.1 K/mm3; Hypochromasia 1+; Platelet Estimate Consistent w Auto; Total Cells Counted 100
--- NOTE | 2021-06-02 19:31 | XRay Report ---
Abdomen single view INDICATION: Abdominal pain IMPRESSION: Esophagogastric tube terminates within the mid region of the stomach. Signer Name: Kings Block MD Signed: 06/02/2021 7:27 PM Workstation Name: [id number]
[2021-06-02] MEDS: DEXTROSE 5% IN WATER 1,000 ML IV SCH (23:25)
[2021-06-03] MEDS: FREE WATER PO SCH ×7 (02:30→21:30)
[2021-06-03] MEDS: HEPARIN 5,000 UNIT/1 ML VIAL SUB-Q SCH ×3 (05:16→21:38)
[2021-06-03] MEDS: DEXTROSE 5% IN WATER 1,000 ML IV SCH ×2 (05:16→18:16)
--- NOTE | 2021-06-03 06:16 | Event Note ---
Date: 06/03/21 Patient tolerating 400 cc every 3 hours free water flush, reduce IVF to 75 mL's per hour; patient tolerating well, day team may consider discontinuing
[2021-06-03 06:21] LABS: Hemoglobin 10.7 gm/dl (11.8-15.2); Mean Corpuscular HGB Conc 32 % (32-34); Mean Corpuscular Volume 83 fl (84-94); Platelet Count 157 K/mm3 (140-440); Red Blood Count 3.95 M/mm3 (3.65-5.03); Red Cell Distribution Width 14.6 % (13.2-15.2)
[2021-06-03 06:41] LABS: BUN/Creatinine Ratio 40; Blood Urea Nitrogen 36 mg/dL (9-20); Hemolysis Index 3
[2021-06-03] MEDS ORDERED: ACETAMINOPHEN 650 MG RECT SUPP PR PRN (08:21)
[2021-06-03 11:22] LABS: Total Cells Counted 100
[2021-06-03 11:23] LABS: Band Neutrophils # (Manual) 0.1 K/mm3; Platelet Estimate Consistent w Auto; RBC Morphology Normal
[2021-06-03] MEDS ORDERED: SODIUM BICARBONATE 325 MG TAB FEEDTUBE PRN (12:23)
[2021-06-03] MEDS ORDERED: LIPASE 10,500/PROTEASE 25,000/AMYLASE 43,750 (UNITS) DR CAP FEEDTUBE PRN (12:23)
[2021-06-03] MEDS ORDERED: SIMPLE SYRUP 15 ML FEEDTUBE PRN ×2 (12:23)
--- NOTE | 2021-06-03 14:14 | Progress Note ---
Assessment and Plan Assessment and plan: #Acute hypoxic respiratory failure -Patient on high flow at 15 L/min; SPO2 86 to 96% -will wean as tolerated -VQ scan low probability for PE on admission -continue steroids for now -will continue to monitor, if patient condition worsens, low threshold for Pulmonary/CC consult #Severe sepsis -WBC count resolved, febrile -Blood cultures NGTD, UA with asymptomatic maisha -s/p antibiotics (cefepime, vancomycin, Flagyl) -repeat COVID-19 PCR negative #Lactic acidosis -Resolved #Acute encephalopathy -Resolved -CT head negative, ammonia 22 -Patient cooperative follows commands #ANGELES, resolved -Creatinine 0.9 today -Likely prerenal secondary to volume depletion after several days of no oral in take -Renal ultrasound unremarkable -Nephrology consulted, recs appreciated -will avoid nephrotoxic agents #Hyperkalemia, resolved -will continue to monitor #Pneumonia -completed azithromycin and Rocephin #COVID-19 infection -Diagnosed on 05/11 -D-dimer greater than 10,000, ferritin 2000, LDH 577, CRP 8.8 -ID consulted, assistance appreciated -Continue steroids x10 days and vitamins (steroid end date 06/06) #Hypernatremia, improved -Sodium 142, will continue free water flushes -D5W at 75 cc/hr will discontinue tube feeds initiated -Likely secondary to almost 2 weeks no oral intake #Discharge planning -Patient and family agreed to the home with home health upon discharge -will continue to wean oxygen to at least 4 L/min prior to discharge Disposition Plan: Pending improvement Total Time Spent with Patient (Minutes): 25 minutes History Interval history: No events overnight. Patient currently on 15 L. Denies complaints at this time. Hospitalist Physical - Physical exam Narrative exam: GENERAL: Thin male. Lying in bed in no acute distress. HEENT: High flow nasal cannula in place, 15 L/min CHEST/LUNGS: Coarse breath sounds bilaterally. No use of assessory muscles of breathing. HEART/CARDIOVASCULAR: Tachycardic. No murmur, rubs or gallops appreciated. ABDOMEN: +BS. NT/ND. NEURO: Left lower extremity weakness. Follows all commands. EXTREMITIES: No cyanosis, clubbing or edema. PSYCH: Cooperative. - Constitutional Vitals: Temp Pulse Resp BP Pulse Ox 98.3 F 101 H 28 H 125/72 93 06/03/21 12:28 06/03/21 12:28 06/03/21 12:28 06/03/21 12:28 06/03/21 12:28 General appearance: Present: no acute distress, cachectic HEART Score - HEART Score EKG: Non-specific Age: 45-65 Risk factors: 1-2 risk factors Troponin: Troponin T < 0.010 ng/mL (0.00-0.029) 05/23/21 18:48 - Critical Actions Critical Actions: 0-3 pts:0.9-1.7%risk of adverse cardiac event.Candidate for discharge Results - Labs CBC & Chem 7: 06/03/21 05:57 06/03/21 05:57 Labs: Laboratory Last Values WBC 7.3 K/mm3 (4.5-11.0) 06/03/21 05:57 RBC 3.95 M/mm3 (3.65-5.03) 06/03/21 05:57 Hgb 10.7 gm/dl (11.8-15.2) L 06/03/21 05:57 Hct 33.0 % (35.5-45.6) L 06/03/21 05:57 MCV 83 fl (84-94) L 06/03/21 05:57 MCH 27 pg (28-32) L 06/03/21 05:57 MCHC 32 % (32-34) 06/03/21 05:57 RDW 14.6 % (13.2-15.2) 06/03/21 05:57 Plt Count 157 K/mm3 (140-440) 06/03/21 05:57 Lymph % (Auto) Recreational Assistant 06/01/21 07:10 [place] % (Auto) Recreational Assistant 06/01/21 07:10 Eos % (Auto) Recreational Assistant 06/01/21 07:10 Baso % (Auto) Recreational Assistant 06/01/21 07:10 Lymph # (Auto) Recreational Assistant 06/01/21 07:10 [place] # (Auto) Recreational Assistant 06/01/21 07:10 Eos # (Auto) Recreational Assistant 06/01/21 07:10 Baso # (Auto) Recreational Assistant 06/01/21 07:10 Add Manual Diff Complete 06/03/21 05:57 Total Counted 100 06/03/21 05:57 Seg Neutrophils % Recreational Assistant 06/01/21 07:10 Seg Neuts % (Manual) 88.0 % (40.0-70.0) H 06/03/21 05:57 Band Neutrophils % 1.0 % 06/03/21 05:57 Lymphocytes % (Manual) 8.0 % (13.4-35.0) L 06/03/21 05:57 Reactive Lymphs % (Man) 1.0 % 06/01/21 07:10 Monocytes % (Manual) 3.0 % (0.0-7.3) 06/03/21 05:57 Nucleated RBC % 2.0 % (0.0-0.9) H 06/03/21 05:57 Seg Neutrophils # Recreational Assistant 06/01/21 07:10 Seg Neutrophils # Man 6.4 K/mm3 (1.8-7.7) 06/03/21 05:57 Band Neutrophils # 0.1 K/mm3 06/03/21 05:57 Lymphocytes # (Manual) 0.6 K/mm3 (1.2-5.4) L 06/03/21 05:57 Abs React Lymphs (Man) 0.0 K/mm3 06/03/21 05:57 Monocytes # (Manual) 0.2 K/mm3 (0.0-0.8) 06/03/21 05:57 Eosinophils # (Manual) 0.0 K/mm3 (0.0-0.4) 06/03/21 05:57 Basophils # (Manual) 0.0 K/mm3 (0.0-0.1) 06/03/21 05:57 Metamyelocytes # 0.0 K/mm3 06/03/21 05:57 Myelocytes # 0.0 K/mm3 06/03/21 05:57 Promyelocytes # 0.0 K/mm3 06/03/21 05:57 Blast Cells # 0.0 K/mm3 06/03/21 05:57 WBC Morphology Not Reportable 06/03/21 05:57 Hypersegmented Neuts Not Reportable 06/03/21 05:57 Hyposegmented Neuts Not Reportable 06/03/21 05:57 Hypogranular Neuts Not Reportable 06/03/21 05:57 Smudge Cells Not Reportable 06/03/21 05:57 Toxic Granulation Not Reportable 06/03/21 05:57 Toxic Vacuolation Not Reportable 06/03/21 05:57 Dohle Bodies Not Reportable 06/03/21 05:57 Pelger-Huet Anomaly Not Reportable 06/03/21 05:57 Kaci Rods Not Reportable 06/03/21 05:57 Platelet Estimate Consistent w auto 06/03/21 05:57 Clumped Platelets Not Reportable 06/03/21 05:57 Plt Clumps, EDTA Not Reportable 06/03/21 05:57 Large Platelets Not Reportable 06/03/21 05:57 Giant Platelets Not Reportable 06/03/21 05:57 Platelet Satelliting Not Reportable 06/03/21 05:57 Plt Morphology Comment Not Reportable 06/03/21 05:57 RBC Morphology Normal 06/03/21 05:57 Dimorphic RBCs Not Reportable 06/03/21 05:57 Polychromasia Not Reportable 06/03/21 05:57 Hypochromasia Not Reportable 06/03/21 05:57 Poikilocytosis Not Reportable 06/03/21 05:57 Anisocytosis Not Reportable 06/03/21 05:57 Microcytosis Not Reportable 06/03/21 05:57 Macrocytosis Not Reportable 06/03/21 05:57 Spherocytes Not Reportable 06/03/21 05:57 Pappenheimer Bodies Not Reportable 06/03/21 05:57 Sickle Cells Not Reportable 06/03/21 05:57 Target Cells Not Reportable 06/03/21 05:57 Tear Drop Cells Not Reportable 06/03/21 05:57 Ovalocytes Not Reportable 06/03/21 05:57 Helmet Cells Not Reportable 06/03/21 05:57 [place] Bodies Not Reportable 06/03/21 05:57 [place] Rings Not Reportable 06/03/21 05:57 [place] Cells Not Reportable 06/03/21 05:57 Bite Cells Not Reportable 06/03/21 05:57 Crenated Cell Not Reportable 06/03/21 05:57 Elliptocytes Not Reportable 06/03/21 05:57 Acanthocytes (Spur) Not Reportable 06/03/21 05:57 Rouleaux Not Reportable 06/03/21 05:57 Hemoglobin C Crystals Not Reportable 06/03/21 05:57 Schistocytes Not Reportable 06/03/21 05:57 Malaria parasites Not Reportable 06/03/21 05:57 Dick Bodies Not Reportable 06/03/21 05:57 Hem Pathologist Commnt No 06/03/21 05:57 D-Dimer 3584.01 ng/mlDDU (0-234) H 05/27/21 08:09 ABG pH 7.454 pH Units (7.350-7.450) H 05/30/21 22:32 POC ABG pCO2 30.3 mmHg (32.0-48.0) L 05/29/21 17:58 ABG pCO2 29.0 mm Hg 05/30/21 22:32 POC ABG pO2 128.1 mmHg (83-108) H 05/29/21 17:58 ABG pO2 141.8 mm Hg (80.0-90.0) H 05/30/21 22:32 POC ABG HCO3 23.4 05/29/21 17:58 ABG HCO3 19.9 mmol/L (20.0-26.0) L 05/30/21 22:32 ABG O2 Saturation 98.8 % (95.0-99.0) 05/30/21 22:32 ABG O2 Content 19.9 (0.0-44) 05/30/21 22:32 POC ABG Base Excess 1.0 05/29/21 17:58 ABG Base Excess -2.7 mmol/L (-2.0-3.0) L 05/30/21 22:32 ABG Hemoglobin 14.4 gm/dl (14.0-18.0) 05/30/21 22:32 ABG Oxyhemoglobin 97.1 (94-98) 05/29/21 17:58 ABG Carboxyhemoglobin 1.1 % (0.0-5.0) 05/30/21 22:32 ABG Methemoglobin 0.6 % (0.0-1.5) 05/30/21 22:32 ABG Sodium 145.0 mmol/L (136.0-145.0) 05/29/21 17:58 ABG Potassium 3.5 mmol/L (3.40-4.50) 05/29/21 17:58 ABG Chloride 113.0 mmol/L (98-107) H 05/29/21 17:58 ABG Glucose 110 mg/dL (65-95) H 05/29/21 17:58 VBG pH 7.254 (7.320-7.420) L 05/24/21 02:09 Oxyhemoglobin 97.1 % (95.0-99.0) 05/30/21 22:32 Carboxyhemoglobin 1.2 (0.5-1.5) 05/29/21 17:58 FiO2 70 % 05/30/21 22:32 FiO2 % 80.0 05/29/21 17:58 Sodium 142 mmol/L (137-145) 06/03/21 05:57 Potassium 3.8 mmol/L (3.6-5.0) 06/03/21 05:57 Chloride 105.0 mmol/L (98-107) 06/03/21 05:57 Carbon Dioxide 28 mmol/L (22-30) 06/03/21 05:57 Anion Gap 13 mmol/L 06/03/21 05:57 BUN 36 mg/dL (9-20) H 06/03/21 05:57 Creatinine 0.9 mg/dL (0.8-1.3) 06/03/21 05:57 Estimated GFR > 60 ml/min 06/03/21 05:57 BUN/Creatinine Ratio 40 % 06/03/21 05:57 Glucose 102 mg/dL (75-100) H 06/03/21 05:57 POC Glucose 101 mg/dL (70-105) 06/02/21 11:49 Lactic Acid 1.70 mmol/L (0.7-2.0) 05/24/21 09:39 Calcium 8.0 mg/dL (8.4-10.2) L 06/03/21 05:57 Phosphorus 2.20 mg/dL (2.5-4.5) L D 06/03/21 05:57 Magnesium 1.90 mg/dL (1.7-2.3) 06/03/21 05:57 Ferritin 2742.0 ng/mL (30.0-300.0) H 05/27/21 08:09 Total Bilirubin 0.90 mg/dL (0.1-1.2) 05/23/21 18:48 AST 27 units/L (5-40) 05/23/21 18:48 ALT 7 units/L (7-56) 05/23/21 18:48 Alkaline Phosphatase 69 units/L (35-129) 05/23/21 18:48 Ammonia 22.0 umol/L (25-60) L 05/23/21 18:48 Lactate Dehydrogenase 642 units/L (91-180) H 05/27/21 08:09 Troponin T < 0.010 ng/mL (0.00-0.029) 05/23/21 18:48 C-Reactive Protein 5.20 mg/dL (0.00-1.30) H 05/27/21 08:09 Total Protein 9.4 g/dL (6.3-8.2) H 05/23/21 18:48 Albumin 3.0 g/dL (3.9-5) L 05/23/21 18:48 Albumin/Globulin Ratio 0.5 % 05/23/21 18:48 Procalcitonin 0.31 ng/mL (<0.15) 05/23/21 18:48 TSH 1.150 mlU/mL (0.270-4.200) 05/23/21 18:48 Arterial Blood Glucose 110 mg/dL (65-95) H 05/29/21 17:58 Arterial Blood Ionized Calcium 4.5 mg/dL (4.6-5.3) L 05/29/21 17:58 Urine Color Eli (Yellow) 05/30/21 01:00 Urine Turbidity Cloudy (Clear) 05/30/21 01:00 Urine pH 5.0 (5.0-7.0) 05/30/21 01:00 Ur Specific Reading 1.019 (1.003-1.030) 05/30/21 01:00 Urine Protein 100 mg/dl mg/dL (Negative) 05/30/21 01:00 Urine Glucose (UA) Neg mg/dL (Negative) 05/30/21 01:00 Urine Ketones Neg mg/dL (Negative) 05/30/21 01:00 Urine Blood Mod (Negative) 05/30/21 01:00 Urine Nitrite Neg (Negative) 05/30/21 01:00 Urine Bilirubin Neg (Negative) 05/30/21 01:00 Urine Urobilinogen 4.0 mg/dL (<2.0) 05/30/21 01:00 Ur Leukocyte Esterase Neg (Negative) 05/30/21 01:00 Urine WBC (Auto) 12.0 /HPF (0.0-6.0) H 05/30/21 01:00 Urine RBC (Auto) 21.0 /HPF (0.0-6.0) 05/30/21 01:00 U Epithel Cells (Auto) 2.0 /HPF (0-13.0) 05/30/21 01:00 Uric Acid Crystals Few 05/30/21 01:00 Urine Mucus Few /HPF 05/30/21 01:00 Urine Yeast (Budding) 2+ /HPF 05/30/21 01:00 Vancomycin Trough 12.2 ug/mL (5.0-20.0) 06/02/21 13:40 Plasma/Serum Alcohol < 0.01 % (0-0.07) 05/23/21 18:48 Proteinase 3 (PR3) Ab <1.0 AI (<1.0) 05/24/21 20:57 Myeloperoxidase Ab <1.0 AI (<1.0) 05/24/21 20:57 Complement C3 108 mg/dL (82-185) 05/24/21 20:57 Complement C4 29 mg/dL (15-53) 05/24/21 20:57 Coronavirus (PCR) Negative (Negative) 05/26/21 08:41 Blood Type A POSITIVE 05/29/21 08:15 Antibody Screen Negative 05/29/21 08:15 Microbiology: Microbiology 05/29/21 06:40 Peripheral/Venous Blood Culture - Final NO GROWTH AFTER 5 DAYS 05/29/21 08:16 Peripheral/Venous Blood Culture - Final NO GROWTH AFTER 5 DAYS 05/31/21 00:04 Peripheral/Venous Blood Culture - Preliminary NO GROWTH AFTER 72 HOURS 05/30/21 23:32 Peripheral/Venous Blood Culture - Preliminary NO GROWTH AFTER 72 HOURS Heart/IV: Voiding Method Condom Catheter Active Medications - Current Medications Current Medications: Generic Name Dose Route Start Last Admin Trade Name Freq PRN Reason Stop Dose Admin Acetaminophen 650 mg 05/29/21 07:05 06/01/21 21:31 Acetaminophen 325 Mg Tab PO 650 mg Q6H PRN Administration Pain, Mild (1-3) Acetaminophen 650 mg 06/03/21 08:21 06/03/21 08:42 Acetaminophen 650 Mg Rect Supp [place] 650 mg Q4H PRN Administration Pain, Mild (1-3) Lipase/Protease/Amylase 1 each 06/03/21 12:23 Lipase 10,500/Protease 25,000/Amylase 43,750 (Units) Dr Rodney FEEDTUBE PRN PRN For Clogged Feeding Tube Heparin Sodium (Porcine) 5,000 unit 05/24/21 06:00 06/03/21 05:16 Heparin 5,000 Unit/1 Ml Vial SUB-Q 5,000 unit Q8HR MIKE Administration Dextrose 1,000 mls @ 75 mls/hr 05/31/21 15:00 06/03/21 05:16 D5w IV 75 mls/hr DIRECT MIKE Administration Magnesium Hydroxide 30 ml 05/23/21 22:01 Magnesium Hydroxide (Mom) Oral Liqd Udc PO Q4H PRN Constipation Morphine Sulfate 2 mg 05/23/21 22:01 05/25/21 06:28 Morphine 2 Mg/1 Ml Inj IV 2 mg Q4H PRN Administration Pain, Moderate (4-6) Morphine Sulfate 4 mg 05/23/21 22:01 Morphine 4 Mg/1 Ml Inj IV Q4H PRN Pain , Severe (7-10) Simple Syrup 15 ml 06/03/21 12:23 Simple Syrup 15 Ml FEEDTUBE PRN PRN Hypoglycemia Simple Syrup 30 ml 06/03/21 12:23 Simple Syrup 15 Ml FEEDTUBE PRN PRN Hypoglycemia Sodium Bicarbonate 325 mg 06/03/21 12:23 Sodium Bicarbonate 325 Mg Tab FEEDTUBE PRN PRN For Clogged Feeding Tube Sodium Chloride 10 ml 05/24/21 10:00 06/02/21 22:26 Sodium Chloride 0.9% 10 Ml Flush Syringe IV 10 ml BID MIKE Administration Sodium Chloride 10 ml 05/23/21 22:01 Sodium Chloride 0.9% 10 Ml Flush Syringe IV PRN PRN LINE FLUSH Nutrition/Malnutrition Assess - Dietary Evaluation Nutrition/Malnutrition Findings: Nutrition Notes Start: 05/25/21 09:33 Freq: Status: Active Protocol: Document 06/03/21 12:11 GB (Rec: 06/03/21 12:21 GB [id number]) Nutrition Notes Need for Assessment generated from: MD Order Initial or Follow up Brief Note Current Diet NPO Height 5 ft 11 in Weight 77.11 kg [place] Body Weight (kg) 78.18 BMI 23.7 Subjective/Other Information MD order for TF to start. Pt has nutrition f/u 06/06. Pt on Nepro supplement. TF formula to continue as Nepro. Percent of energy/protein needs met: TF to meet 80% or greater of estimated energy needs. #1 Nutrition Diagnosis Inadequate oral intake Comments: Nutritional supplement beverage ordered 06/03: TF ordered Etiology acute illness As Evidenced by Signs and Symptoms decreased PO for 10-12 days RESIDENCE MANAGER 06/03: TF required to meet needs. Diagnosis Progress(for reassessment Continues documentation) Is patient on ventilator? No Is Patient Ambulatory and/or Out of Bed No REE-([facility]-confined to bed) 1964.124 Kcal/Kg value to use for calculation 25 Approximate Energy Requirements Using 1928 kcal/Kg Calculation Used for Recommendations Kcal/kg Additional Notes Protein 1-1.2 g/kg @77k- 92g Nutrition Intervention Change Diet Order: continue Nutrition Support: Nepro @ 45ml/hr Flush @ 45ml/hr Kcal 1,944 Protein (gm) 87 Fat (gm) 104 Fluid (mL) 785 Goal #1 PO intake of meals to be 75% or greater TID daily for LOS 06/03: tolerate TF formula at goal rate of 45ml/hr Goal #2 PO intake of supplement beverage to be 50% or greater BID daily for LOS On hold related to TF Goal #3 Weight to maintain within +/-3 % current weight for LOS Follow-Up By: 06/06/21
[2021-06-03] MEDS ORDERED: LORazepam 2 MG/ML VIAL IV ONE (21:30)
[2021-06-03] MEDS: PIPERACIL/TAZOBACTA 4.5/NS 100 4.5 GM/100 ML VIAL IV SCH (21:32)
[2021-06-03] MEDS: ACETAMINOPHEN 325 MG TAB PO PRN (21:32)
--- NOTE | 2021-06-03 22:13 | XRay Report ---
CHEST 1 VIEW INDICATION / CLINICAL INFORMATION: shortness of breathe. COMPARISON: 05/30/2021 FINDINGS: SUPPORT DEVICES: None. HEART / MEDIASTINUM: No significant abnormality. LUNGS / PLEURA: Diffuse hazy airspace opacities bilaterally, mildly worsened compared to reference ex am. No pneumothorax. ADDITIONAL FINDINGS: No significant additional findings. IMPRESSION: 1. Interval worsening. Signer Name: Cornelius Hansen MD Signed: 06/03/2021 10:09 PM Workstation Name: [id number]
[2021-06-03] MEDS ORDERED: SODIUM CHLORIDE 0.9% 500 ML 500 ML IV ONE (23:09)
--- NOTE | 2021-06-03 23:14 | Event Note ---
Date: 06/03/21 Code Met called on patient who has been on admission for Acute hypoxic respiratory failure, pneumonia, H/O Covid-19. He has also been spiking fever and going into respiratory distress.He has been quite restless and became hypoxic. He was on tube feeding which has been put on hold. Plan: Check ABG Blood culture stat Chest X-ray stat Start empiric antibiotics - IV Zosyn. Request ID follow up in A.M Will follow up on the above.
[2021-06-04] MEDS: FREE WATER PO SCH ×8 (00:02→22:41)
[2021-06-04] MEDS: HEPARIN 5,000 UNIT/1 ML VIAL SUB-Q SCH ×3 (05:37→22:42)
[2021-06-04] MEDS: PIPERACIL/TAZOBACTA 4.5/NS 100 4.5 GM/100 ML VIAL IV SCH ×3 (05:37→22:41)
[2021-06-04 07:38] LABS: Hematocrit 34.9 % (35.5-45.6); Hemoglobin 11.3 gm/dl (11.8-15.2); Mean Corpuscular HGB Conc 32 % (32-34); Mean Corpuscular Volume 85 fl (84-94); Platelet Count 152 K/mm3 (140-440); Red Blood Count 4.13 M/mm3 (3.65-5.03); Red Cell Distribution Width 14.6 % (13.2-15.2)
--- NOTE | 2021-06-04 07:47 | Progress Note ---
Assessment and Plan Assessment and plan: #Acute hypoxic respiratory failure -Decompensation overnight, currently on BiPAP with FiO2 of 80% (O2 sats 88 to 100%) -will wean as tolerated -VQ scan low probability for PE on admission -Started methylprednisone 60 mg every 8 hours -will give one dose of lasix and assess for improvement -CXR in the AM -Pulmonary consulted, recommendations appreciated #Severe sepsis -febrile -repeat blood cultures ordered overnight -Zosyn started (s/p cefepime, vancomycin, Flagyl) #Lactic acidosis -Resolved #Acute encephalopathy -Resolved -CT head negative, ammonia 22 -Patient cooperative follows commands #ANGELES, resolved #Hyperkalemia, resolved #Pneumonia -completed azithromycin and Rocephin #COVID-19 infection -Diagnosed on 05/11 -ID consulted, assistance appreciated -s/p 10 days of steroids, will restart due to worsening Pulmonary status #Hypernatremia, resolved -will continue free water flushes -discontinue D5W -Likely secondary to poor oral intake #Discharge planning -Patient and family agreed to the home with home health upon discharge -will continue to wean oxygen to at least 4 L/min prior to discharge Disposition Plan: Continue medical management Total Time Spent with Patient (Minutes): 30 minutes History Interval history: Patient became febrile hypoxic, and tachycardic overnight. Chest x-ray was ordered and showed worsening infiltrates. ABG was ordered P/F was 39. He was transitioned to BiPAP with improvement in oxygen saturation. Hospitalist Physical - Physical exam Narrative exam: GENERAL: Thin male. Lying in bed in no acute distress. HEENT: BiPAP in place. CHEST/LUNGS: Coarse breath sounds bilaterally. No use of assessory muscles of breathing. HEART/CARDIOVASCULAR: Regular rate and rhythm. No murmur, rubs or gallops appreciated. ABDOMEN: +BS. NT/ND. EXTREMITIES: No cyanosis, clubbing or edema. PSYCH: Cooperative. - Constitutional Vitals: Temp Pulse Resp BP Pulse Ox 98.9 F 109 H 32 H 143/75 99 06/04/21 05:35 06/04/21 05:35 06/04/21 05:35 06/04/21 05:35 06/04/21 05:35 General appearance: Present: no acute distress, cachectic HEART Score - HEART Score EKG: Non-specific Age: 45-65 Risk factors: 1-2 risk factors Troponin: Troponin T < 0.010 ng/mL (0.00-0.029) 05/23/21 18:48 - Critical Actions Critical Actions: 0-3 pts:0.9-1.7%risk of adverse cardiac event.Candidate for discharge Results - Labs CBC & Chem 7: 06/04/21 07:04 06/04/21 07:04 Labs: Laboratory Last Values WBC 7.3 K/mm3 (4.5-11.0) 06/03/21 05:57 RBC 3.95 M/mm3 (3.65-5.03) 06/03/21 05:57 Hgb 10.7 gm/dl (11.8-15.2) L 06/03/21 05:57 Hct 33.0 % (35.5-45.6) L 06/03/21 05:57 MCV 83 fl (84-94) L 06/03/21 05:57 MCH 27 pg (28-32) L 06/03/21 05:57 MCHC 32 % (32-34) 06/03/21 05:57 RDW 14.6 % (13.2-15.2) 06/03/21 05:57 Plt Count 157 K/mm3 (140-440) 06/03/21 05:57 Lymph % (Auto) Biology Laboratory Assistant 06/01/21 07:10 [place] % (Auto) Biology Laboratory Assistant 06/01/21 07:10 Eos % (Auto) Biology Laboratory Assistant 06/01/21 07:10 Baso % (Auto) Biology Laboratory Assistant 06/01/21 07:10 Lymph # (Auto) Biology Laboratory Assistant 06/01/21 07:10 [place] # (Auto) Biology Laboratory Assistant 06/01/21 07:10 Eos # (Auto) Biology Laboratory Assistant 06/01/21 07:10 Baso # (Auto) Biology Laboratory Assistant 06/01/21 07:10 Add Manual Diff Complete 06/03/21 05:57 Total Counted 100 06/03/21 05:57 Seg Neutrophils % Biology Laboratory Assistant 06/01/21 07:10 Seg Neuts % (Manual) 88.0 % (40.0-70.0) H 06/03/21 05:57 Band Neutrophils % 1.0 % 06/03/21 05:57 Lymphocytes % (Manual) 8.0 % (13.4-35.0) L 06/03/21 05:57 Reactive Lymphs % (Man) 1.0 % 06/01/21 07:10 Monocytes % (Manual) 3.0 % (0.0-7.3) 06/03/21 05:57 Nucleated RBC % 2.0 % (0.0-0.9) H 06/03/21 05:57 Seg Neutrophils # Biology Laboratory Assistant 06/01/21 07:10 Seg Neutrophils # Man 6.4 K/mm3 (1.8-7.7) 06/03/21 05:57 Band Neutrophils # 0.1 K/mm3 06/03/21 05:57 Lymphocytes # (Manual) 0.6 K/mm3 (1.2-5.4) L 06/03/21 05:57 Abs React Lymphs (Man) 0.0 K/mm3 06/03/21 05:57 Monocytes # (Manual) 0.2 K/mm3 (0.0-0.8) 06/03/21 05:57 Eosinophils # (Manual) 0.0 K/mm3 (0.0-0.4) 06/03/21 05:57 Basophils # (Manual) 0.0 K/mm3 (0.0-0.1) 06/03/21 05:57 Metamyelocytes # 0.0 K/mm3 06/03/21 05:57 Myelocytes # 0.0 K/mm3 06/03/21 05:57 Promyelocytes # 0.0 K/mm3 06/03/21 05:57 Blast Cells # 0.0 K/mm3 06/03/21 05:57 WBC Morphology Not Reportable 06/03/21 05:57 Hypersegmented Neuts Not Reportable 06/03/21 05:57 Hyposegmented Neuts Not Reportable 06/03/21 05:57 Hypogranular Neuts Not Reportable 06/03/21 05:57 Smudge Cells Not Reportable 06/03/21 05:57 Toxic Granulation Not Reportable 06/03/21 05:57 Toxic Vacuolation Not Reportable 06/03/21 05:57 Dohle Bodies Not Reportable 06/03/21 05:57 Pelger-Huet Anomaly Not Reportable 06/03/21 05:57 Kaci Rods Not Reportable 06/03/21 05:57 Platelet Estimate Consistent w auto 06/03/21 05:57 Clumped Platelets Not Reportable 06/03/21 05:57 Plt Clumps, EDTA Not Reportable 06/03/21 05:57 Large Platelets Not Reportable 06/03/21 05:57 Giant Platelets Not Reportable 06/03/21 05:57 Platelet Satelliting Not Reportable 06/03/21 05:57 Plt Morphology Comment Not Reportable 06/03/21 05:57 RBC Morphology Normal 06/03/21 05:57 Dimorphic RBCs Not Reportable 06/03/21 05:57 Polychromasia Not Reportable 06/03/21 05:57 Hypochromasia Not Reportable 06/03/21 05:57 Poikilocytosis Not Reportable 06/03/21 05:57 Anisocytosis Not Reportable 06/03/21 05:57 Microcytosis Not Reportable 06/03/21 05:57 Macrocytosis Not Reportable 06/03/21 05:57 Spherocytes Not Reportable 06/03/21 05:57 Pappenheimer Bodies Not Reportable 06/03/21 05:57 Sickle Cells Not Reportable 06/03/21 05:57 Target Cells Not Reportable 06/03/21 05:57 Tear Drop Cells Not Reportable 06/03/21 05:57 Ovalocytes Not Reportable 06/03/21 05:57 Helmet Cells Not Reportable 06/03/21 05:57 [place] Bodies Not Reportable 06/03/21 05:57 [place] Rings Not Reportable 06/03/21 05:57 [place] Cells Not Reportable 06/03/21 05:57 Bite Cells Not Reportable 06/03/21 05:57 Crenated Cell Not Reportable 06/03/21 05:57 Elliptocytes Not Reportable 06/03/21 05:57 Acanthocytes (Spur) Not Reportable 06/03/21 05:57 Rouleaux Not Reportable 06/03/21 05:57 Hemoglobin C Crystals Not Reportable 06/03/21 05:57 Schistocytes Not Reportable 06/03/21 05:57 Malaria parasites Not Reportable 06/03/21 05:57 [place] Bodies Not Reportable 06/03/21 05:57 Hem Pathologist Commnt No 06/03/21 05:57 D-Dimer 3584.01 ng/mlDDU (0-234) H 05/27/21 08:09 ABG pH 7.409 (7.320-7.450) 06/03/21 21:23 POC ABG pCO2 39.7 mmHg (32.0-48.0) 06/03/21 21:23 ABG pCO2 29.0 mm Hg 05/30/21 22:32 POC ABG pO2 39.0 mmHg (83-108) L 06/03/21 21:23 ABG pO2 141.8 mm Hg (80.0-90.0) H 05/30/21 22:32 POC ABG HCO3 24.5 06/03/21 21:23 ABG HCO3 19.9 mmol/L (20.0-26.0) L 05/30/21 22:32 ABG O2 Saturation 70.2 (0-100) 06/03/21 21:23 ABG O2 Content 19.9 (0.0-44) 05/30/21 22:32 POC ABG Base Excess 0 06/03/21 21: ABG Base Excess -2.7 mmol/L (-2.0-3.0) L 05/30/21 22:32 ABG Hemoglobin 12.2 (12.0-17.5) 06/03/21 21:23 ABG Oxyhemoglobin 69.1 (94-98) L 06/03/21 21:23 ABG Carboxyhemoglobin 1.1 % (0.0-5.0) 05/30/21 22:32 ABG Methemoglobin 0.3 (0.0-1.5) 06/03/21 21:23 ABG Sodium 134.1 mmol/L (136.0-145.0) L 06/03/21 21: ABG Potassium 4.2 mmol/L (3.40-4.50) 06/03/21 21:23 ABG Chloride 100.0 mmol/L (98-107) 06/03/21 21:23 ABG Glucose 135 mg/dL (65-95) H 06/03/21 21:23 VBG pH 7.254 (7.320-7.420) L 05/24/21 02:09 Oxyhemoglobin 97.1 % (95.0-99.0) 05/30/21 22: Carboxyhemoglobin 1.2 (0.5-1.5) 06/03/21 21:23 FiO2 70 % 05/30/21 22:32 FiO2 % 100 06/03/21 21:23 Sodium 142 mmol/L (137-145) 06/03/21 05:57 Potassium 3.8 mmol/L (3.6-5.0) 06/03/21 05:57 Chloride 105.0 mmol/L (98-107) 06/03/21 05:57 Carbon Dioxide 28 mmol/L (22-30) 06/03/21 05:57 Anion Gap 13 mmol/L 06/03/21 05:57 BUN 36 mg/dL (9-20) H 06/03/21 05:57 Creatinine 0.9 mg/dL (0.8-1.3) 06/03/21 05:57 Estimated GFR > 60 ml/min 06/03/21 05:57 BUN/Creatinine Ratio 40 % 06/03/21 05:57 Glucose 102 mg/dL (75-100) H 06/03/21 05:57 POC Glucose 86 mg/dL (70-105) 06/04/21 05:55 Lactic Acid 1.70 mmol/L (0.7-2.0) 05/24/21 09:39 Calcium 8.0 mg/dL (8.4-10.2) L 06/03/21 05:57 Phosphorus 2.20 mg/dL (2.5-4.5) L D 06/03/21 05:57 Magnesium 1.90 mg/dL (1.7-2.3) 06/03/21 05:57 Ferritin 2742.0 ng/mL (30.0-300.0) H 05/27/21 08:09 Total Bilirubin 0.90 mg/dL (0.1-1.2) 05/23/21 18:48 AST 27 units/L (5-40) 05/23/21 18:48 ALT 7 units/L (7-56) 05/23/21 18:48 Alkaline Phosphatase 69 units/L (35-129) 05/23/21 18:48 Ammonia 22.0 umol/L (25-60) L 05/23/21 18:48 Lactate Dehydrogenase 642 units/L (91-180) H 05/27/21 08:09 Troponin T < 0.010 ng/mL (0.00-0.029) 05/23/21 18:48 C-Reactive Protein 5.20 mg/dL (0.00-1.30) H 05/27/21 08:09 Total Protein 9.4 g/dL (6.3-8.2) H 05/23/21 18:48 Albumin 3.0 g/dL (3.9-5) L 05/23/21 18:48 Albumin/Globulin Ratio 0.5 % 05/23/21 18:48 Procalcitonin 0.31 ng/mL (<0.15) 05/23/21 18:48 TSH 1.150 mlU/mL (0.270-4.200) 05/23/21 18:48 Arterial Blood Glucose 135 mg/dL (65-95) H 06/03/21 21:23 Arterial Blood Ionized Calcium 4.5 mg/dL (4.6-5.3) L 05/29/21 17:58 Urine Color Eli (Yellow) 05/30/21 01:00 Urine Turbidity Cloudy (Clear) 05/30/21 01:00 Urine pH 5.0 (5.0-7.0) 05/30/21 01:00 Ur Specific [place] 1.019 (1.003-1.030) 05/30/21 01:00 Urine Protein 100 mg/dl mg/dL (Negative) 05/30/21 01:00 Urine Glucose (UA) Neg mg/dL (Negative) 05/30/21 01:00 Urine Ketones Neg mg/dL (Negative) 05/30/21 01:00 Urine Blood Mod (Negative) 05/30/21 01:00 Urine Nitrite Neg (Negative) 05/30/21 01:00 Urine Bilirubin Neg (Negative) 05/30/21 01:00 Urine Urobilinogen 4.0 mg/dL (<2.0) 05/30/21 01:00 Ur Leukocyte Esterase Neg (Negative) 05/30/21 01:00 Urine WBC (Auto) 12.0 /HPF (0.0-6.0) H 05/30/21 01:00 Urine RBC (Auto) 21.0 /HPF (0.0-6.0) 05/30/21 01:00 U Epithel Cells (Auto) 2.0 /HPF (0-13.0) 05/30/21 01:00 Uric Acid Crystals Few 05/30/21 01:00 Urine Mucus Few /HPF 05/30/21 01:00 Urine Yeast (Budding) 2+ /HPF 05/30/21 01:00 Vancomycin Trough 12.2 ug/mL (5.0-20.0) 06/02/21 13:40 Plasma/Serum Alcohol < 0.01 % (0-0.07) 05/23/21 18:48 Proteinase 3 (PR3) Ab <1.0 AI (<1.0) 05/24/21 20:57 Myeloperoxidase Ab <1.0 AI (<1.0) 05/24/21 20:57 Complement C3 108 mg/dL (82-185) 05/24/21 20:57 Complement C4 29 mg/dL (15-53) 05/24/21 20:57 Coronavirus (PCR) Negative (Negative) 05/26/21 08:41 Blood Type A POSITIVE 05/29/21 08:15 Antibody Screen Negative 05/29/21 08:15 Microbiology: Microbiology 05/31/21 00:04 Peripheral/Venous Blood Culture - Preliminary NO GROWTH AFTER 4 DAYS 05/30/21 23:32 Peripheral/Venous Blood Culture - Preliminary NO GROWTH AFTER 4 DAYS 06/03/21 21:28 Peripheral/Venous Blood Culture - Preliminary Culture in Progress 06/03/21 21:28 Peripheral/Venous Blood Culture - Preliminary Culture in Progress 05/29/21 06:40 Peripheral/Venous Blood Culture - Final NO GROWTH AFTER 5 DAYS 05/29/21 08:16 Peripheral/Venous Blood Culture - Final NO GROWTH AFTER 5 DAYS Heart/IV: Voiding Method Condom Catheter Active Medications - Current Medications Current Medications: Generic Name Dose Route Start Last Admin Trade Name Freq PRN Reason Stop Dose Admin Acetaminophen 650 mg 05/29/21 07:05 06/03/21 21:32 Acetaminophen 325 Mg Tab PO 650 mg Q6H PRN Administration Pain, Mild (1-3) Acetaminophen 650 mg 06/03/21 08:21 06/03/21 08:42 Acetaminophen 650 Mg Rect Supp [place] 650 mg Q4H PRN Administration Pain, Mild (1-3) Lipase/Protease/Amylase 1 each 06/03/21 12:23 Lipase 10,500/Protease 25,000/Amylase 43,750 (Units) Dr Rodney FEEDTUBE PRN PRN For Clogged Feeding Tube Heparin Sodium (Porcine) 5,000 unit 05/24/21 06:00 06/04/21 05:37 Heparin 5,000 Unit/1 Ml Vial SUB-Q 5,000 unit Q8HR MIKE Administration Dextrose 1,000 mls @ 75 mls/hr 05/31/21 15:00 06/03/21 18:16 D5w IV 75 mls/hr DIRECT MIKE Administration Piperacillin Sod/Tazobactam Sod 4.5 gm in 100 mls @ 200 mls/hr 06/03/21 21:30 06/04/21 05:37 Zosyn/Ns 4.5gm/100ml IV 200 mls/hr Q8H MIKE Administration Protocol Magnesium Hydroxide 30 ml 05/23/21 22:01 Magnesium Hydroxide (Mom) Oral Liqd Udc PO Q4H PRN Constipation Morphine Sulfate 2 mg 05/23/21 22:01 05/25/21 06:28 Morphine 2 Mg/1 Ml Inj IV 2 mg Q4H PRN Administration Pain, Moderate (4-6) Morphine Sulfate 4 mg 05/23/21 22:01 Morphine 4 Mg/1 Ml Inj IV Q4H PRN Pain , Severe (7-10) Simple Syrup 15 ml 06/03/21 12:23 Simple Syrup 15 Ml FEEDTUBE PRN PRN Hypoglycemia Simple Syrup 30 ml 06/03/21 12:23 Simple Syrup 15 Ml FEEDTUBE PRN PRN Hypoglycemia Sodium Bicarbonate 325 mg 06/03/21 12:23 Sodium Bicarbonate 325 Mg Tab FEEDTUBE PRN PRN For Clogged Feeding Tube Sodium Chloride 10 ml 05/24/21 10:00 06/03/21 21:33 Sodium Chloride 0.9% 10 Ml Flush Syringe IV 10 ml BID MIKE Administration Sodium Chloride 10 ml 05/23/21 22:01 Sodium Chloride 0.9% 10 Ml Flush Syringe IV PRN PRN LINE FLUSH Nutrition/Malnutrition Assess - Dietary Evaluation Nutrition/Malnutrition Findings: Nutrition Notes Start: 05/25/21 09:33 Freq: Status: Active Protocol: Document 06/03/21 12:11 GB (Rec: 06/03/21 12:21 GB [id number]) Nutrition Notes Need for Assessment generated from: MD Order Initial or Follow up Brief Note Current Diet NPO Height 5 ft 11 in Weight 77.11 kg [place] Body Weight (kg) 78.18 BMI 23.7 Subjective/Other Information MD order for TF to start. Pt has nutrition f/u 06/06. Pt on Nepro supplement. TF formula to continue as Nepro. Percent of energy/protein needs met: TF to meet 80% or greater of estimated energy needs. 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 Diagnosis Progress(for reassessment Continues documentation) Is patient on ventilator? No Is Patient Ambulatory and/or Out of Bed No REE-([facility]-confined to bed) 1964.124 Kcal/Kg value to use for calculation 25 Approximate Energy Requirements Using 1928 kcal/Kg Calculation Used for Recommendations Kcal/kg Additional Notes Protein 1-1.2 g/kg @77k- 92g Nutrition Intervention Change Diet Order: continue Nutrition Support: Nepro @ 45ml/hr Flush @ 45ml/hr Kcal 1,944 Protein (gm) 87 Fat (gm) 104 Fluid (mL) 785 Goal #1 PO intake of meals to be 75% or greater TID daily for LOS 06/03: tolerate TF formula at goal rate of 45ml/hr Goal #2 PO intake of supplement beverage to be 50% or greater BID daily for LOS On hold related to TF Goal #3 Weight to maintain within +/-3 % current weight for LOS Follow-Up By: 06/06/21
[2021-06-04 07:54] LABS: BUN/Creatinine Ratio 27; Blood Urea Nitrogen 27 mg/dL (9-20); Calcium 8.2 mg/dL (8.4-10.2); Hemolysis Index 4
[2021-06-04 09:18] LABS: Band Neutrophils # (Manual) 0.1 K/mm3; Total Cells Counted 100
[2021-06-04 09:52] LABS: Platelet Estimate Consistent w Auto; RBC Morphology Normal
[2021-06-04] MEDS: methylPREDNISolone Sod Succinate 125 MG/2 ML INJ IV SCH ×2 (10:12→17:11)
[2021-06-04] MEDS: MORPHINE 2 MG/1 ML INJ IV PRN ×3 (12:33→18:09)
[2021-06-04] MEDS: ONDANSETRON 4 MG/2 ML INJ IV PRN ×2 (15:00→18:52)
[2021-06-04] MEDS ORDERED: FUROSEMIDE 40 MG/4 ML INJ IV NR (15:30)
--- NOTE | 2021-06-04 15:37 | XRay Report ---
ABDOMEN 1 VIEW INDICATION / CLINICAL INFORMATION: Vomiting. COMPARISON: 06/02/2021 FINDINGS: TUBES / LINES: Weighted tip enteric catheter projects in the stomach. BOWEL GAS PATTERN: There is increased gaseous distention of the small bowel seen diffusely throughout the abdomen. There appears to be normal caliber small bowel gas in the right lower quadrant. Gas janae led colonic bowel loops remain. FREE AIR / EXTRALUMINAL GAS: None. ADDITIONAL FINDINGS: No significant additional findings. IMPRESSION: Interval development of gas distended small bowel in the abdomen with apparent normal caliber small b owel in the right lower quadrant, concerning for obstruction. Signer Name: Babar Sahu MD Signed: 06/04/2021 3:33 PM Workstation Name: [id number]
--- NOTE | 2021-06-04 19:50 | XRay Report ---
ABDOMEN 1 VIEW(S) 06/04/2021 7:07 PM INDICATION / CLINICAL INFORMATION: VERIFY NGT IN STOMACH. COMPARISON: 3:22 PM same day FINDINGS: The tip of an esophagogastric tube projects over the body of the stomach in expected position. Previo usly noted Dobbhoff feeding tube has been removed. Moderate gaseous distention of large and small bow el characteristic for ileus Signer Name: Soham Dodson MD Signed: 06/04/2021 7:46 PM Workstation Name: [id number]
--- NOTE | 2021-06-04 20:19 | Consultation ---
History of Present Illness Consult date: 06/04/21 Reason for consult: dyspnea, pneumonia History of present illness: 55-year-old -Turkish male who was diagnosed with COVID-19 on May 11, 2021 presents to the emergency room today with complaints of shortness of breath and decreased oral intake over the past 10 to 12 days. Patient also has known history of CVA about 20 years ago and it is unknown whether patient had any residual deficits. Patient has not been able to communicate well and most of the history was gotten from the ER staff. Initial oxygen saturation according to EMS was about 70% and patient was placed on nonrebreather. He was eventually placed on oxygen by nasal cannula upon arrival in the emergency room with significant improvement in his oxygen saturation. Work-up in the emergency room reveals a D-dimer greater than 10,000, sodium 151 potassium of 5.1, BUN of 180) and creatinine of 4.3. Patient had a lactic acid of 2.3. WBC was 11.8. CT scan of the head shows no acute abnormality. Chest x-ray shows mild patchy multifocal airspace disease throughout the lungs. No pleural effusion. VQ scan done showed low probability for pulmonary embolism. Patient being admitted with pneumonia possibly secondary to COVID-19, hypoxia and encephalopathy. Patients COVID 19 PCR reported negative. Patient presently sleeping on BIPAP. Not responding to verbal stimuli. Patient is on BIPAP 20/10, rate 14, FIO2 80% and O2 saturation running 98%. Patient running low grade temp. No Leukocytosis. Blood pressure 120/75, Pulse 125. Chest xray done 06/03/21 reported Diffuse hazy airspace opacities bilaterally, mildly worsened compared to reference exam. No pneumothorax. Patient presently on Zosyn, I/V solumedrol and S/C Heparin. Recommend albuterol/atrovent aerosol treatments. Past History Past Medical History: No medical history Past Surgical History: No surgical history Social history: smoking (Current daily smoker) Family history: no significant family history Medications and Allergies Allergies Allergy/AdvReac Type Severity Reaction Status Date / Time No Known Allergies Allergy Unverified 02/12/17 15:47 Home Medications Medication Instructions Recorded Confirmed Last Taken Type No Known Home Medications [No 05/31/21 05/31/21 Unknown History Reported Home Medications] Active Meds: Active Medications Acetaminophen (Acetaminophen 325 Mg Tab) 650 mg PO Q6H PRN PRN Reason: Pain, Mild (1-3) Last Admin: 06/03/21 21:32 Dose: 650 mg Documented by: Acetaminophen (Acetaminophen 650 Mg Rect Supp) 650 mg NM Q4H PRN PRN Reason: Pain, Mild (1-3) Last Admin: 06/03/21 08:42 Dose: 650 mg Documented by: Lipase/Protease/Amylase (Lipase 10,500/Protease 25,000/Amylase 43,750 (Units) Dr Rodney) 1 each FEEDTUBE PRN PRN PRN Reason: For Clogged Feeding Tube Baclofen (Baclofen 10 Mg Tab) 5 mg PO TID MIKE Heparin Sodium (Porcine) (Heparin 5,000 Unit/1 Ml Vial) 5,000 unit SUB-Q Q8HR [facility] Last Admin: 06/04/21 17:10 Dose: 5,000 unit Documented by: Piperacillin Sod/Tazobactam Sod (Zosyn/Ns 4.5gm/100ml) 4.5 gm in 100 mls @ 200 mls/hr IV Q8H [facility]; Protocol Last Admin: 06/04/21 17:08 Dose: 200 mls/hr Documented by: Magnesium Hydroxide (Magnesium Hydroxide (Mom) Oral Liqd Udc) 30 ml PO Q4H PRN PRN Reason: Constipation Methylprednisolone Sodium Succinate (Methylprednisolone Sod Succinate 125 Mg/2 Ml Inj) 60 mg IV Q8H [facility] Last Admin: 06/04/21 17:11 Dose: 60 mg Documented by: Morphine Sulfate (Morphine 2 Mg/1 Ml Inj) 2 mg IV Q4H PRN PRN Reason: Pain, Moderate (4-6) Last Admin: 06/04/21 18:09 Dose: 2 mg Documented by: Morphine Sulfate (Morphine 4 Mg/1 Ml Inj) 4 mg IV Q4H PRN PRN Reason: Pain , Severe (7-10) Ondansetron HCl (Ondansetron 4 Mg/2 Ml Inj) 4 mg IV Q4H PRN PRN Reason: Nausea And Vomiting Last Admin: 06/04/21 18:52 Dose: 4 mg Documented by: Simple Syrup (Simple Syrup 15 Ml) 15 ml FEEDTUBE PRN PRN PRN Reason: Hypoglycemia Simple Syrup (Simple Syrup 15 Ml) 30 ml FEEDTUBE PRN PRN PRN Reason: Hypoglycemia Sodium Bicarbonate (Sodium Bicarbonate 325 Mg Tab) 325 mg FEEDTUBE PRN PRN PRN Reason: For Clogged Feeding Tube Sodium Chloride (Sodium Chloride 0.9% 10 Ml Flush Syringe) 10 ml IV BID MIKE Last Admin: 06/04/21 10:12 Dose: 10 ml Documented by: Sodium Chloride (Sodium Chloride 0.9% 10 Ml Flush Syringe) 10 ml IV PRN PRN PRN Reason: LINE FLUSH Review of Systems All systems: negative Physical Examination Vital signs: Vital Signs Temp Pulse Resp BP Pulse Ox 97.9 F 132 H 24 156/92 99 05/23/21 18:36 05/23/21 18:36 05/23/21 18:36 05/23/21 18:36 05/23/21 18:36 General appearance: no acute distress, asleep, other (Sleeping on BIPAP. Not responding to verbal stimuli.) Eyes: non-icteric Neck: supple, no JVD Effort: mildly labored Ascultation: Bilateral: rhonchi Cardiovascular: regular rate and rhythm Gastrointestinal: normoactive bowel sounds, soft, non-tender Integumentary: normal Extremities: no cyanosis, no edema Musculoskeletal: no deformities Gait: other (Patient bed ridden at this time.) unable to assess other (Unable to assess due to mental status.) Results - Laboratory Findings CBC and BMP: 06/04/21 07:04 06/04/21 07:04 ABG ABG pH 7.409 (7.320-7.450) 06/03/21 21:23 POC ABG pCO2 39.7 mmHg (32.0-48.0) 06/03/21 21:23 ABG pCO2 29.0 mm Hg 05/30/21 22:32 POC ABG pO2 39.0 mmHg (83-108) L 06/03/21 21:23 ABG pO2 141.8 mm Hg (80.0-90.0) H 05/30/21 22:32 POC ABG HCO3 24.5 06/03/21 21:23 ABG O2 Saturation 70.2 (0-100) 06/03/21 21:23 PT/INR, D-dimer D-Dimer 3584.01 ng/mlDDU (0-234) H 05/27/21 08:09 Abnormal lab findings: Abnormal Labs 05/23/21 05/23/21 05/23/21 18:48 18:48 18:48 WBC 11.8 H RBC 5.18 H Hgb Hct MCV MCH MCHC RDW Plt Count Seg Neuts % (Manual) 84.0 H Lymphocytes % (Manual) Nucleated RBC % Seg Neutrophils # Man 9.9 H Lymphocytes # (Manual) D-Dimer > 86287 H ABG pH POC ABG pCO2 POC ABG pO2 ABG pO2 ABG HCO3 ABG Base Excess ABG Hemoglobin ABG Oxyhemoglobin ABG Sodium ABG Chloride ABG Glucose VBG pH Sodium Potassium Chloride Carbon Dioxide BUN Creatinine Glucose POC Glucose Lactic Acid 2.30 H* Calcium Phosphorus Magnesium Ferritin Ammonia Lactate Dehydrogenase C-Reactive Protein Total Protein Albumin Arterial Blood Glucose Arterial Blood Ionized Calcium Urine WBC (Auto) Vancomycin Trough 05/23/21 05/23/21 05/23/21 18:48 18:48 18:48 WBC RBC Hgb Hct MCV MCH MCHC RDW Plt Count Seg Neuts % (Manual) Lymphocytes % (Manual) Nucleated RBC % Seg Neutrophils # Man Lymphocytes # (Manual) D-Dimer ABG pH POC ABG pCO2 POC ABG pO2 ABG pO2 ABG HCO3 ABG Base Excess ABG Hemoglobin ABG Oxyhemoglobin ABG Sodium ABG Chloride ABG Glucose VBG pH Sodium 151 H Potassium 5.1 H Chloride 113.2 H Carbon Dioxide 17 L BUN 180 H Creatinine 4.3 H Glucose 114 H POC Glucose Lactic Acid Calcium Phosphorus Magnesium Ferritin 2000.0 H Ammonia 22.0 L Lactate Dehydrogenase 577 H C-Reactive Protein 8.80 H Total Protein 9.4 H Albumin 3.0 L Arterial Blood Glucose Arterial Blood Ionized Calcium Urine WBC (Auto) Vancomycin Trough 05/23/21 05/24/21 05/24/21 21:06 02:09 02:09 WBC RBC Hgb Hct MCV MCH MCHC RDW Plt Count Seg Neuts % (Manual) Lymphocytes % (Manual) Nucleated RBC % Seg Neutrophils # Man Lymphocytes # (Manual) D-Dimer ABG pH POC ABG pCO2 POC ABG pO2 ABG pO2 ABG HCO3 ABG Base Excess ABG Hemoglobin ABG Oxyhemoglobin ABG Sodium ABG Chloride ABG Glucose VBG pH 7.254 L Sodium Potassium Chloride Carbon Dioxide BUN Creatinine Glucose POC Glucose Lactic Acid 2.10 H* 2.30 H* Calcium Phosphorus Magnesium Ferritin Ammonia Lactate Dehydrogenase C-Reactive Protein Total Protein Albumin Arterial Blood Glucose Arterial Blood Ionized Calcium Urine WBC (Auto) Vancomycin Trough 05/24/21 05/24/21 05/24/21 13:11 17:34 18:12 WBC RBC Hgb Hct MCV MCH MCHC RDW Plt Count Seg Neuts % (Manual) Lymphocytes % (Manual) Nucleated RBC % Seg Neutrophils # Man Lymphocytes # (Manual) D-Dimer ABG pH POC ABG pCO2 POC ABG pO2 ABG pO2 ABG HCO3 ABG Base Excess ABG Hemoglobin ABG Oxyhemoglobin ABG Sodium ABG Chloride ABG Glucose VBG pH Sodium 155 H Potassium 6.9 H* D 5.7 H Chloride 121.9 H Carbon Dioxide 20 L BUN 139 H Creatinine 2.7 H Glucose 139 H POC Glucose 153 H Lactic Acid Calcium Phosphorus Magnesium Ferritin Ammonia Lactate Dehydrogenase C-Reactive Protein Total Protein Albumin Arterial Blood Glucose Arterial Blood Ionized Calcium Urine WBC (Auto) Vancomycin Trough 05/25/21 05/25/21 05/26/21 11:33 11:33 03:15 WBC 13.8 H RBC 5.06 H Hgb Hct MCV MCH MCHC RDW Plt Count Seg Neuts % (Manual) Lymphocytes % (Manual) Nucleated RBC % Seg Neutrophils # Man Lymphocytes # (Manual) D-Dimer ABG pH POC ABG pCO2 POC ABG pO2 ABG pO2 ABG HCO3 ABG Base Excess ABG Hemoglobin ABG Oxyhemoglobin ABG Sodium ABG Chloride ABG Glucose VBG pH Sodium 164 H* D 166 H* Potassium 5.4 H 5.5 H Chloride 131.3 H 129.2 H Carbon Dioxide BUN 109 H 102 H Creatinine 1.9 H 1.8 H Glucose 117 H 113 H POC Glucose Lactic Acid Calcium Phosphorus Magnesium Ferritin Ammonia Lactate Dehydrogenase 711 H C-Reactive Protein 7.90 H Total Protein Albumin Arterial Blood Glucose Arterial Blood Ionized Calcium Urine WBC (Auto) Vancomycin Trough 05/26/21 05/26/21 05/26/21 03:15 03:15 03:15 WBC 13.1 H RBC 5.43 H Hgb 15.3 H Hct 48.5 H MCV MCH MCHC RDW 15.4 H Plt Count Seg Neuts % (Manual) Lymphocytes % (Manual) Nucleated RBC % Seg Neutrophils # Man Lymphocytes # (Manual) D-Dimer 6229.14 H ABG pH POC ABG pCO2 POC ABG pO2 ABG pO2 ABG HCO3 ABG Base Excess ABG Hemoglobin ABG Oxyhemoglobin ABG Sodium ABG Chloride ABG Glucose VBG pH Sodium Potassium Chloride Carbon Dioxide BUN Creatinine Glucose POC Glucose Lactic Acid Calcium Phosphorus Magnesium Ferritin 2991.0 H Ammonia Lactate Dehydrogenase C-Reactive Protein Total Protein Albumin Arterial Blood Glucose Arterial Blood Ionized Calcium Urine WBC (Auto) Vancomycin Trough 05/27/21 05/27/21 05/27/21 08:09 08:09 08:09 WBC 12.4 H RBC 5.27 H Hgb Hct 46.6 H MCV MCH MCHC 31 L RDW 15.7 H Plt Count Seg Neuts % (Manual) Lymphocytes % (Manual) Nucleated RBC % Seg Neutrophils # Man Lymphocytes # (Manual) D-Dimer 3584.01 H ABG pH POC ABG pCO2 POC ABG pO2 ABG pO2 ABG HCO3 ABG Base Excess ABG Hemoglobin ABG Oxyhemoglobin ABG Sodium ABG Chloride ABG Glucose VBG pH Sodium 174 H* Potassium Chloride 136.9 H Carbon Dioxide BUN 90 H Creatinine 1.8 H Glucose POC Glucose Lactic Acid Calcium Phosphorus Magnesium Ferritin Ammonia Lactate Dehydrogenase 642 H C-Reactive Protein 5.20 H Total Protein Albumin Arterial Blood Glucose Arterial Blood Ionized Calcium Urine WBC (Auto) Vancomycin Trough 05/27/21 05/28/21 05/28/21 08:09 07:31 07:31 WBC RBC Hgb Hct MCV MCH 27 L MCHC 31 L RDW Plt Count Seg Neuts % (Manual) 88.0 H Lymphocytes % (Manual) 11.0 L Nucleated RBC % Seg Neutrophils # Man 8.3 H Lymphocytes # (Manual) 1.0 L D-Dimer ABG pH POC ABG pCO2 POC ABG pO2 ABG pO2 ABG HCO3 ABG Base Excess ABG Hemoglobin ABG Oxyhemoglobin ABG Sodium ABG Chloride ABG Glucose VBG pH Sodium 162 H* D Potassium Chloride 125.8 H Carbon Dioxide BUN 72 H Creatinine 1.6 H Glucose 131 H POC Glucose Lactic Acid Calcium Phosphorus Magnesium 3.00 H Ferritin 2742.0 H Ammonia Lactate Dehydrogenase C-Reactive Protein Total Protein Albumin Arterial Blood Glucose Arterial Blood Ionized Calcium Urine WBC (Auto) Vancomycin Trough 05/29/21 05/29/21 05/29/21 06:40 06:40 17:58 WBC 14.1 H RBC Hgb Hct MCV MCH 27 L MCHC 31 L RDW Plt Count Seg Neuts % (Manual) 85.0 H Lymphocytes % (Manual) 9.0 L Nucleated RBC % 1.0 H Seg Neutrophils # Man 12.0 H Lymphocytes # (Manual) D-Dimer ABG pH 7.505 H POC ABG pCO2 30.3 L POC ABG pO2 128.1 H ABG pO2 ABG HCO3 ABG Base Excess ABG Hemoglobin 11.9 L ABG Oxyhemoglobin ABG Sodium ABG Chloride 113.0 H ABG Glucose 110 H VBG pH Sodium 148 H D Potassium Chloride 111.3 H Carbon Dioxide 20 L BUN 45 H Creatinine Glucose POC Glucose Lactic Acid Calcium Phosphorus 2.10 L D Magnesium Ferritin Ammonia Lactate Dehydrogenase C-Reactive Protein Total Protein Albumin Arterial Blood Glucose 110 H Arterial Blood Ionized Calcium 4.5 L Urine WBC (Auto) Vancomycin Trough 05/30/21 05/30/21 05/30/21 01:00 06:06 13:48 WBC RBC Hgb Hct MCV MCH MCHC RDW Plt Count Seg Neuts % (Manual) Lymphocytes % (Manual) Nucleated RBC % Seg Neutrophils # Man Lymphocytes # (Manual) D-Dimer ABG pH POC ABG pCO2 POC ABG pO2 ABG pO2 90.9 H ABG HCO3 ABG Base Excess ABG Hemoglobin 11.8 L ABG Oxyhemoglobin ABG Sodium ABG Chloride ABG Glucose VBG pH Sodium 150 H Potassium Chloride 117.6 H Carbon Dioxide BUN 40 H Creatinine Glucose POC Glucose Lactic Acid Calcium 8.3 L Phosphorus Magnesium Ferritin Ammonia Lactate Dehydrogenase C-Reactive Protein Total Protein Albumin Arterial Blood Glucose Arterial Blood Ionized Calcium Urine WBC (Auto) 12.0 H Vancomycin Trough 05/30/21 05/31/21 05/31/21 22:32 02:22 02:22 WBC RBC Hgb 11.2 L Hct 34.8 L MCV MCH MCHC RDW Plt Count 127 L Seg Neuts % (Manual) 97.0 H Lymphocytes % (Manual) Nucleated RBC % Seg Neutrophils # Man 10.5 H Lymphocytes # (Manual) 0.0 L D-Dimer ABG pH 7.454 H POC ABG pCO2 POC ABG pO2 ABG pO2 141.8 H ABG HCO3 19.9 L ABG Base Excess -2.7 L ABG Hemoglobin ABG Oxyhemoglobin ABG Sodium ABG Chloride ABG Glucose VBG pH Sodium 152 H Potassium Chloride 118.9 H Carbon Dioxide 19 L BUN 48 H Creatinine 1.5 H Glucose 101 H POC Glucose Lactic Acid Calcium 8.3 L Phosphorus Magnesium Ferritin Ammonia Lactate Dehydrogenase C-Reactive Protein Total Protein Albumin Arterial Blood Glucose Arterial Blood Ionized Calcium Urine WBC (Auto) Vancomycin Trough 05/31/21 05/31/21 06/01/21 11:42 21:28 07:10 WBC RBC Hgb Hct MCV MCH MCHC RDW Plt Count Seg Neuts % (Manual) Lymphocytes % (Manual) Nucleated RBC % Seg Neutrophils # Man Lymphocytes # (Manual) D-Dimer ABG pH POC ABG pCO2 POC ABG pO2 ABG pO2 ABG HCO3 ABG Base Excess ABG Hemoglobin ABG Oxyhemoglobin ABG Sodium ABG Chloride ABG Glucose VBG pH Sodium 150 H Potassium Chloride 115.7 H Carbon Dioxide BUN 47 H Creatinine Glucose 115 H POC Glucose 161 H Lactic Acid Calcium Phosphorus Magnesium 2.50 H Ferritin Ammonia Lactate Dehydrogenase C-Reactive Protein Total Protein Albumin Arterial Blood Glucose Arterial Blood Ionized Calcium Urine WBC (Auto) Vancomycin Trough 20.2 H 06/01/21 06/01/21 06/01/21 07:10 07:54 10:39 WBC RBC Hgb 10.7 L Hct 33.5 L MCV MCH MCHC RDW Plt Count Seg Neuts % (Manual) 92.0 H Lymphocytes % (Manual) 4.0 L Nucleated RBC % Seg Neutrophils # Man Lymphocytes # (Manual) 0.3 L D-Dimer ABG pH POC ABG pCO2 POC ABG pO2 ABG pO2 ABG HCO3 ABG Base Excess ABG Hemoglobin ABG Oxyhemoglobin ABG Sodium ABG Chloride ABG Glucose VBG pH Sodium 152 H Potassium Chloride 117.6 H Carbon Dioxide BUN 50 H Creatinine Glucose 140 H POC Glucose 127 H Lactic Acid Calcium 8.3 L Phosphorus Magnesium Ferritin Ammonia Lactate Dehydrogenase C-Reactive Protein Total Protein Albumin Arterial Blood Glucose Arterial Blood Ionized Calcium Urine WBC (Auto) Vancomycin Trough 06/01/21 06/01/21 06/01/21 11:11 16:16 21:45 WBC RBC Hgb Hct MCV MCH MCHC RDW Plt Count Seg Neuts % (Manual) Lymphocytes % (Manual) Nucleated RBC % Seg Neutrophils # Man Lymphocytes # (Manual) D-Dimer ABG pH POC ABG pCO2 POC ABG pO2 ABG pO2 ABG HCO3 ABG Base Excess ABG Hemoglobin ABG Oxyhemoglobin ABG Sodium ABG Chloride ABG Glucose VBG pH Sodium Potassium Chloride Carbon Dioxide BUN Creatinine Glucose POC Glucose 120 H 129 H 150 H Lactic Acid Calcium Phosphorus Magnesium Ferritin Ammonia Lactate Dehydrogenase C-Reactive Protein Total Protein Albumin Arterial Blood Glucose Arterial Blood Ionized Calcium Urine WBC (Auto) Vancomycin Trough 06/02/21 06/02/21 06/02/21 06:53 06:53 07:52 WBC RBC Hgb 10.4 L Hct 32.4 L MCV MCH 27 L MCHC RDW Plt Count Seg Neuts % (Manual) 93.0 H Lymphocytes % (Manual) 3.0 L Nucleated RBC % Seg Neutrophils # Man Lymphocytes # (Manual) 0.2 L D-Dimer ABG pH POC ABG pCO2 POC ABG pO2 ABG pO2 ABG HCO3 ABG Base Excess ABG Hemoglobin ABG Oxyhemoglobin ABG Sodium ABG Chloride ABG Glucose VBG pH Sodium 149 H Potassium Chloride 112.6 H Carbon Dioxide BUN 54 H Creatinine Glucose 123 H POC Glucose 116 H Lactic Acid Calcium 8.2 L Phosphorus Magnesium Ferritin Ammonia Lactate Dehydrogenase C-Reactive Protein Total Protein Albumin Arterial Blood Glucose Arterial Blood Ionized Calcium Urine WBC (Auto) Vancomycin Trough 06/03/21 06/03/21 06/03/21 05:57 05:57 21:23 WBC RBC Hgb 10.7 L Hct 33.0 L MCV 83 L MCH 27 L MCHC RDW Plt Count Seg Neuts % (Manual) 88.0 H Lymphocytes % (Manual) 8.0 L Nucleated RBC % 2.0 H Seg Neutrophils # Man Lymphocytes # (Manual) 0.6 L D-Dimer ABG pH POC ABG pCO2 POC ABG pO2 39.0 L ABG pO2 ABG HCO3 ABG Base Excess ABG Hemoglobin ABG Oxyhemoglobin 69.1 L ABG Sodium 134.1 L ABG Chloride ABG Glucose 135 H VBG pH Sodium Potassium Chloride Carbon Dioxide BUN 36 H Creatinine Glucose 102 H POC Glucose Lactic Acid Calcium 8.0 L Phosphorus 2.20 L D Magnesium Ferritin Ammonia Lactate Dehydrogenase C-Reactive Protein Total Protein Albumin Arterial Blood Glucose 135 H Arterial Blood Ionized Calcium Urine WBC (Auto) Vancomycin Trough 06/04/21 06/04/21 06/04/21 07:04 07:04 17:42 WBC RBC Hgb 11.3 L Hct 34.9 L MCV MCH 27 L MCHC RDW Plt Count Seg Neuts % (Manual) Lymphocytes % (Manual) 5.0 L Nucleated RBC % Seg Neutrophils # Man 8.4 H Lymphocytes # (Manual) 0.5 L D-Dimer ABG pH POC ABG pCO2 POC ABG pO2 ABG pO2 ABG HCO3 ABG Base Excess ABG Hemoglobin ABG Oxyhemoglobin ABG Sodium ABG Chloride ABG Glucose VBG pH Sodium Potassium Chloride Carbon Dioxide BUN 27 H Creatinine Glucose POC Glucose 136 H Lactic Acid Calcium 8.2 L Phosphorus Magnesium Ferritin Ammonia Lactate Dehydrogenase C-Reactive Protein Total Protein Albumin Arterial Blood Glucose Arterial Blood Ionized Calcium Urine WBC (Auto) Vancomycin Trough - Diagnostic Findings Chest x-ray: report reviewed, image reviewed Additional studies: CHEST 1 VIEW 06/03/21 INDICATION / CLINICAL INFORMATION: shortness of breathe. COMPARISON: 05/30/2021 FINDINGS: SUPPORT DEVICES: None. HEART / MEDIASTINUM: No significant abnormality. LUNGS / PLEURA: Diffuse hazy airspace opacities bilaterally, mildly worsened compared to reference exam. No pneumothorax. ADDITIONAL FINDINGS: No significant additional findings. IMPRESSION: 1. Interval worsening. Assessment and Plan 55-year-old -Turkish male who was diagnosed with COVID-19 on May 11, 2021 presents to the emergency room today with complaints of shortness of breath and decreased oral intake over the past 10 to 12 days. Patient also has known history of CVA about 20 years ago and it is unknown whether patient had any residual deficits. Patient has not been able to communicate well and most of the history was gotten from the ER staff. Initial oxygen saturation according to EMS was about 70% and patient was placed on nonrebreather. He was eventually placed on oxygen by nasal cannula upon arrival in the emergency room with significant improvement in his oxygen saturation. Work-up in the emergency room reveals a D-dimer greater than 10,000, sodium 151 potassium of 5.1, BUN of 180) and creatinine of 4.3. Patient had a lactic acid of 2.3. WBC was 11.8. CT scan of the head shows no acute abnormality. Chest x-ray shows mild patchy multifocal airspace disease throughout the lungs. No pleural effusion. VQ scan done showed low probability for pulmonary embolism. Patient being admitted with pneumonia possibly secondary to COVID-19, hypoxia and encephalopathy. Patients COVID 19 PCR reported negative. Patient presently sleeping on BIPAP. Not responding to verbal stimuli. Patient is on BIPAP 20/10, rate 14, FIO2 80% and O2 saturation running 98%. Patient running low grade temp. No Leukocytosis. Blood pressure 120/75, Pulse 125. Chest xray done 06/03/21 reported Diffuse hazy airspace opacities bilaterally, mildly worsened compared to reference exam. No pneumothorax. Patient presently on Zosyn, I/V solumedrol and S/C Heparin. Recommend albuterol/atrovent aerosol treatments. I spent critical care time of 45 minutes, reviewing the chart, examine the patient, review chest xray and lab results, Talking to the nursing staff, re spiratory therapy and work out plan of treatment in this critically ill bilateral pneumonia patient with respiratory failure . - Patient Problems (1) Acute respiratory failure with hypoxia Current Visit: Yes Status: Acute Plan to address problem: BIPAP 20/10, rate 14, FIO2 80% Continue I/V solumedrol. Continue S/C heparin. Recommend GI prophylaxis. Recommend albuterol/atrovent aerosol treatments. (2) Bilateral pneumonia Current Visit: Yes Status: Acute Plan to address problem: Patient is on Zosyn (3) Suspected 2019 novel coronavirus infection Current Visit: Yes Status: Acute Plan to address problem: Patient dar[place] virus PCR is negative.
[2021-06-04] MEDS: BACLOFEN 10 MG TAB PO SCH (20:30)
[2021-06-05] MEDS: FREE WATER PO SCH ×7 (00:23→21:52)
[2021-06-05] MEDS: methylPREDNISolone Sod Succinate 125 MG/2 ML INJ IV SCH ×3 (01:48→17:42)
[2021-06-05] MEDS: HEPARIN 5,000 UNIT/1 ML VIAL SUB-Q SCH ×3 (06:04→21:53)
[2021-06-05] MEDS: PIPERACIL/TAZOBACTA 4.5/NS 100 4.5 GM/100 ML VIAL IV SCH ×3 (06:04→21:52)
[2021-06-05] MEDS: MORPHINE 2 MG/1 ML INJ IV PRN ×2 (06:35→15:02)
[2021-06-05 06:40] LABS: BUN/Creatinine Ratio 27; Blood Urea Nitrogen 35 mg/dL (9-20); Calcium 8.2 mg/dL (8.4-10.2); Hemolysis Index 5
--- NOTE | 2021-06-05 08:20 | Progress Note ---
Assessment and Plan Assessment and plan: #Acute hypoxic respiratory failure -Currently on BiPAP, will wean as tolerated -VQ scan low probability for PE on admission -continue methylprednisone 60 mg every 8 hours -s/p 1 dose of Lasix -Pulmonary consulted, recommendations appreciated #Ileus -KUB showing possible SBO, CT abdomen pelvis pending -NG tube to low intermittent suction -dulcolax suppository -will encourage mobility as patient oxygen requirements decrease -Surgery consulted, recs appreciated #Severe sepsis -febrile -repeat blood cultures no growth to date -Zosyn started (s/p cefepime, vancomycin, Flagyl); will discontinue if patient remains stable over the next 48 hours #Lactic acidosis -Resolved #Acute encephalopathy -Resolved -CT head negative, ammonia 22 -Patient cooperative follows commands #ANGELES, resolved #Hyperkalemia, resolved #Pneumonia -completed azithromycin and Rocephin #COVID-19 infection -Diagnosed on 05/11 -ID consulted, assistance appreciated -s/p 10 days of steroids, restarted on 06/04 due to worsening Pulmonary status -will taper steroids #Hypernatremia, resolved -will continue free water flushes -likely secondary to poor oral intake #Discharge planning -Patient and family agreed to the home with home health upon discharge -will continue to wean oxygen to at least 4 L/min prior to discharge Disposition Plan: Continue medical management Total Time Spent with Patient (Minutes): 20 minutes History Interval history: No acute events overnight. Patient much more alert this morning. Denies complaints. Hospitalist Physical - Physical exam Narrative exam: GENERAL: Thin male. Lying in bed in no acute distress. HEENT: BiPAP in place. CHEST/LUNGS: Coarse breath sounds bilaterally. No use of assessory muscles of breathing. HEART/CARDIOVASCULAR: Regular rate and rhythm. No murmur, rubs or gallops appreciated. ABDOMEN: +BS. NT/ND. EXTREMITIES: No cyanosis, clubbing or edema. PSYCH: Cooperative. - Constitutional Vitals: Temp Pulse Resp BP Pulse Ox 97.6 F 76 21 117/71 100 06/05/21 04:26 06/05/21 04:26 06/05/21 06:35 06/05/21 04:26 06/05/21 04:26 General appearance: Present: no acute distress, cachectic HEART Score - HEART Score EKG: Non-specific Age: 45-65 Risk factors: 1-2 risk factors Troponin: Troponin T < 0.010 ng/mL (0.00-0.029) 05/23/21 18:48 - Critical Actions Critical Actions: 0-3 pts:0.9-1.7%risk of adverse cardiac event.Candidate for discharge Results - Labs CBC & Chem 7: 06/04/21 07:04 06/05/21 05:10 Labs: Laboratory Last Values WBC 9.2 K/mm3 (4.5-11.0) 06/04/21 07:04 RBC 4.13 M/mm3 (3.65-5.03) 06/04/21 07:04 Hgb 11.3 gm/dl (11.8-15.2) L 06/04/21 07:04 Hct 34.9 % (35.5-45.6) L 06/04/21 07:04 MCV 85 fl (84-94) 06/04/21 07:04 MCH 27 pg (28-32) L 06/04/21 07:04 MCHC 32 % (32-34) 06/04/21 07:04 RDW 14.6 % (13.2-15.2) 06/04/21 07:04 Plt Count 152 K/mm3 (140-440) 06/04/21 07:04 Lymph % (Auto) Social Media [employer]er 06/01/21 07:10 [place] % (Auto) Social Media Designer 06/01/21 07:10 Eos % (Auto) Social Media Designer 06/01/21 07:10 Baso % (Auto) Social Media Designer 06/01/21 07:10 Lymph # (Auto) Social Media Designer 06/01/21 07:10 [place] # (Auto) Social Media Designer 06/01/21 07:10 Eos # (Auto) Social Media Designer 06/01/21 07:10 Baso # (Auto) Social Media Designer 06/01/21 07:10 Add Manual Diff Complete 06/04/21 07:04 Total Counted 100 06/04/21 07:04 Seg Neutrophils % Social Media [employer]er 06/01/21 07:10 Seg Neuts % (Manual) 88.0 % (40.0-70.0) H 06/03/21 05:57 Band Neutrophils % 1.0 % 06/04/21 07:04 Lymphocytes % (Manual) 5.0 % (13.4-35.0) L 06/04/21 07:04 Reactive Lymphs % (Man) 1.0 % 06/01/21 07:10 Monocytes % (Manual) 3.0 % (0.0-7.3) 06/04/21 07:04 Nucleated RBC % Not Reportable 06/04/21 07:04 Seg Neutrophils # Social Media Designer 06/01/21 07:10 Seg Neutrophils # Man 8.4 K/mm3 (1.8-7.7) H 06/04/21 07:04 Band Neutrophils # 0.1 K/mm3 06/04/21 07:04 Lymphocytes # (Manual) 0.5 K/mm3 (1.2-5.4) L 06/04/21 07:04 Abs React Lymphs (Man) 0.0 K/mm3 06/04/21 07:04 Monocytes # (Manual) 0.3 K/mm3 (0.0-0.8) 06/04/21 07:04 Eosinophils # (Manual) 0.0 K/mm3 (0.0-0.4) 06/04/21 07:04 Basophils # (Manual) 0.0 K/mm3 (0.0-0.1) 06/04/21 07:04 Metamyelocytes # 0.0 K/mm3 06/04/21 07:04 Myelocytes # 0.0 K/mm3 06/04/21 07:04 Promyelocytes # 0.0 K/mm3 06/04/21 07:04 Blast Cells # 0.0 K/mm3 06/04/21 07:04 WBC Morphology Not Reportable 06/04/21 07:04 Hypersegmented Neuts Not Reportable 06/04/21 07:04 Hyposegmented Neuts Not Reportable 06/04/21 07:04 Hypogranular Neuts Not Reportable 06/04/21 07:04 Smudge Cells Not Reportable 06/04/21 07:04 Toxic Granulation Not Reportable 06/04/21 07:04 Toxic Vacuolation Not Reportable 06/04/21 07:04 Dohle Bodies Not Reportable 06/04/21 07:04 Pelger-Huet Anomaly Not Reportable 06/04/21 07:04 Kaci Rods Not Reportable 06/04/21 07:04 Platelet Estimate Consistent w auto 06/04/21 07:04 Clumped Platelets Not Reportable 06/04/21 07:04 Plt Clumps, EDTA Not Reportable 06/04/21 07:04 Large Platelets Not Reportable 06/04/21 07:04 Giant Platelets Not Reportable 06/04/21 07:04 Platelet Satelliting Not Reportable 06/04/21 07:04 Plt Morphology Comment Not Reportable 06/04/21 07:04 RBC Morphology Normal 06/04/21 07:04 Dimorphic RBCs Not Reportable 06/04/21 07:04 Polychromasia Not Reportable 06/04/21 07:04 Hypochromasia Not Reportable 06/04/21 07:04 Poikilocytosis Not Reportable 06/04/21 07:04 Anisocytosis Not Reportable 06/04/21 07:04 Microcytosis Not Reportable 06/04/21 07:04 Macrocytosis Not Reportable 06/04/21 07:04 Spherocytes Not Reportable 06/04/21 07:04 Pappenheimer Bodies Not Reportable 06/04/21 07:04 Sickle Cells Not Reportable 06/04/21 07:04 Target Cells Not Reportable 06/04/21 07:04 Tear Drop Cells Not Reportable 06/04/21 07:04 Ovalocytes Not Reportable 06/04/21 07:04 Helmet Cells Not Reportable 06/04/21 07:04 [place] Bodies Not Reportable 06/04/21 07:04 [place] Rings Not Reportable 06/04/21 07:04 [place] Cells Not Reportable 06/04/21 07:04 Bite Cells Not Reportable 06/04/21 07:04 Crenated Cell Not Reportable 06/04/21 07:04 Elliptocytes Not Reportable 06/04/21 07:04 Acanthocytes (Spur) Not Reportable 06/04/21 07:04 Rouleaux Not Reportable 06/04/21 07:04 Hemoglobin C Crystals Not Reportable 06/04/21 07:04 Schistocytes Not Reportable 06/04/21 07:04 Malaria parasites Not Reportable 06/04/21 07:04 Dick Bodies Not Reportable 06/04/21 07:04 Hem Pathologist Commnt No 06/04/21 07:04 D-Dimer 3584.01 ng/mlDDU (0-234) H 05/27/21 08:09 ABG pH 7.409 (7.320-7.450) 06/03/21 21: POC ABG pCO2 39.7 mmHg (32.0-48.0) 06/03/21 21: ABG pCO2 29.0 mm Hg 05/30/21 22:32 POC ABG pO2 39.0 mmHg (83-108) L 06/03/21 21: ABG pO2 141.8 mm Hg (80.0-90.0) H 05/30/21 22:32 POC ABG HCO3 24.5 06/03/21 21: ABG HCO3 19.9 mmol/L (20.0-26.0) L 05/30/21 22:32 ABG O2 Saturation 70.2 (0-100) 06/03/21 21: ABG O2 Content 19.9 (0.0-44) 05/30/21 22: POC ABG Base Excess 0 06/03/21 21: ABG Base Excess -2.7 mmol/L (-2.0-3.0) L 05/30/21 22: ABG Hemoglobin 12.2 (12.0-17.5) 06/03/21 21: ABG Oxyhemoglobin 69.1 (94-98) L 06/03/21 21: ABG Carboxyhemoglobin 1.1 % (0.0-5.0) 05/30/21 22: ABG Methemoglobin 0.3 (0.0-1.5) 06/03/21 21: ABG Sodium 134.1 mmol/L (136.0-145.0) L 06/03/21 21: ABG Potassium 4.2 mmol/L (3.40-4.50) 06/03/21 21: ABG Chloride 100.0 mmol/L (98-107) 06/03/21 21: ABG Glucose 135 mg/dL (65-95) H 06/03/21 21: VBG pH 7.254 (7.320-7.420) L 05/24/21 02:09 Oxyhemoglobin 97.1 % (95.0-99.0) 05/30/21: Carboxyhemoglobin 1.2 (0.5-1.5) 06/03/21 21: FiO2 70 % 05/30/21 22:32 FiO2 % 100 06/03/21 21:23 Sodium 141 mmol/L (137-145) 06/05/21 05:10 Potassium 3.5 mmol/L (3.6-5.0) L 06/05/21 05:10 Chloride 101.4 mmol/L (98-107) 06/05/21 05:10 Carbon Dioxide 30 mmol/L (22-30) 06/05/21 05:10 Anion Gap 13 mmol/L 06/05/21 05:10 BUN 35 mg/dL (9-20) H 06/05/21 05:10 Creatinine 1.3 mg/dL (0.8-1.3) 06/05/21 05:10 Estimated GFR > 60 ml/min 06/05/21 05:10 BUN/Creatinine Ratio 27 % 06/05/21 05:10 Glucose 130 mg/dL (75-100) H 06/05/21 05:10 POC Glucose 136 mg/dL (70-105) H 06/04/21 17:42 Lactic Acid 1.70 mmol/L (0.7-2.0) 05/24/21 09:39 Calcium 8.2 mg/dL (8.4-10.2) L 06/05/21 05:10 Phosphorus 2.20 mg/dL (2.5-4.5) L D 06/03/21 05:57 Magnesium 1.90 mg/dL (1.7-2.3) 06/03/21 05:57 Ferritin 2742.0 ng/mL (30.0-300.0) H 05/27/21 08:09 Total Bilirubin 0.90 mg/dL (0.1-1.2) 05/23/21 18:48 AST 27 units/L (5-40) 05/23/21 18:48 ALT 7 units/L (7-56) 05/23/21 18:48 Alkaline Phosphatase 69 units/L (35-129) 05/23/21 18:48 Ammonia 22.0 umol/L (25-60) L 05/23/21 18:48 Lactate Dehydrogenase 642 units/L (91-180) H 05/27/21 08:09 Troponin T < 0.010 ng/mL (0.00-0.029) 05/23/21 18:48 C-Reactive Protein 5.20 mg/dL (0.00-1.30) H 05/27/21 08:09 Total Protein 9.4 g/dL (6.3-8.2) H 05/23/21 18:48 Albumin 3.0 g/dL (3.9-5) L 05/23/21 18:48 Albumin/Globulin Ratio 0.5 % 05/23/21 18:48 Procalcitonin 0.31 ng/mL (<0.15) 05/23/21 18:48 TSH 1.150 mlU/mL (0.270-4.200) 05/23/21 18:48 Arterial Blood Glucose 135 mg/dL (65-95) H 06/03/21 21:23 Arterial Blood Ionized Calcium 4.5 mg/dL (4.6-5.3) L 05/29/21 17:58 Urine Color Eli (Yellow) 05/30/21 01:00 Urine Turbidity Cloudy (Clear) 05/30/21 01:00 Urine pH 5.0 (5.0-7.0) 05/30/21 01:00 Ur Specific [place] 1.019 (1.003-1.030) 05/30/21 01:00 Urine Protein 100 mg/dl mg/dL (Negative) 05/30/21 01:00 Urine Glucose (UA) Neg mg/dL (Negative) 05/30/21 01:00 Urine Ketones Neg mg/dL (Negative) 05/30/21 01:00 Urine Blood Mod (Negative) 05/30/21 01:00 Urine Nitrite Neg (Negative) 05/30/21 01:00 Urine Bilirubin Neg (Negative) 05/30/21 01:00 Urine Urobilinogen 4.0 mg/dL (<2.0) 05/30/21 01:00 Ur Leukocyte Esterase Neg (Negative) 05/30/21 01:00 Urine WBC (Auto) 12.0 /HPF (0.0-6.0) H 05/30/21 01:00 Urine RBC (Auto) 21.0 /HPF (0.0-6.0) 05/30/21 01:00 U Epithel Cells (Auto) 2.0 /HPF (0-13.0) 05/30/21 01:00 Uric Acid Crystals Few 05/30/21 01:00 Urine Mucus Few /HPF 05/30/21 01:00 Urine Yeast (Budding) 2+ /HPF 05/30/21 01:00 Vancomycin Trough 12.2 ug/mL (5.0-20.0) 06/02/21 13:40 Plasma/Serum Alcohol < 0.01 % (0-0.07) 05/23/21 18:48 Proteinase 3 (PR3) Ab <1.0 AI (<1.0) 05/24/21 20:57 Myeloperoxidase Ab <1.0 AI (<1.0) 05/24/21 20:57 Complement C3 108 mg/dL (82-185) 05/24/21 20:57 Complement C4 29 mg/dL (15-53) 05/24/21 20:57 Coronavirus (PCR) Negative (Negative) 05/26/21 08:41 Blood Type A POSITIVE 05/29/21 08:15 Antibody Screen Negative 05/29/21 08:15 Microbiology: Microbiology 05/31/21 00:04 Peripheral/Venous Blood Culture - Final NO GROWTH AFTER 5 DAYS 05/30/21 23:32 Peripheral/Venous Blood Culture - Final NO GROWTH AFTER 5 DAYS 06/03/21 21:28 Peripheral/Venous Blood Culture - Preliminary NO GROWTH AFTER 24 HOURS 06/03/21 21:28 Peripheral/Venous Blood Culture - Preliminary NO GROWTH AFTER 24 HOURS Heart/IV: Voiding Method Condom Catheter Active Medications - Current Medications Current Medications: Generic Name Dose Route Start Last Admin Trade Name Freq PRN Reason Stop Dose Admin Acetaminophen 650 mg 05/29/21 07:05 06/03/21 21:32 Acetaminophen 325 Mg Tab PO 650 mg Q6H PRN Administration Pain, Mild (1-3) Acetaminophen 650 mg 06/03/21 08:21 06/03/21 08:42 Acetaminophen 650 Mg Rect Supp [place] 650 mg Q4H PRN Administration Pain, Mild (1-3) Albuterol/Ipratropium 1 ampul 06/05/21 12:00 Ipratropium/Albuterol Sulfate 3 Ml Ampul.Neb IH QIDRT MIKE Lipase/Protease/Amylase 1 each 06/03/21 12:23 Lipase 10,500/Protease 25,000/Amylase 43,750 (Units) Dr Rodney FEEDTUBE PRN PRN For Clogged Feeding Tube Baclofen 5 mg 06/04/21 20:00 06/04/21 20:30 Baclofen 10 Mg Tab PO Not Given TID MIKE Heparin Sodium (Porcine) 5,000 unit 05/24/21 06:00 06/05/21 06:04 Heparin 5,000 Unit/1 Ml Vial SUB-Q 5,000 unit Q8HR MIKE Administration Piperacillin Sod/Tazobactam Sod 4.5 gm in 100 mls @ 200 mls/hr 06/03/21 21:30 06/05/21 06:04 Zosyn/Ns 4.5gm/100ml IV 200 mls/hr Q8H MIKE Administration Protocol Magnesium Hydroxide 30 ml 05/23/21 22:01 Magnesium Hydroxide (Mom) Oral Liqd Udc PO Q4H PRN Constipation Methylprednisolone Sodium Succinate 60 mg 06/04/21 10:00 06/05/21 01:48 Methylprednisolone Sod Succinate 125 Mg/2 Ml Inj IV 60 mg Q8H MIKE Administration Morphine Sulfate 2 mg 05/23/21 22:01 06/05/21 06:35 Morphine 2 Mg/1 Ml Inj IV 2 mg Q4H PRN Administration Pain, Moderate (4-6) Morphine Sulfate 4 mg 05/23/21 22:01 Morphine 4 Mg/1 Ml Inj IV Q4H PRN Pain , Severe (7-10) Ondansetron HCl 4 mg 06/04/21 13:41 06/04/21 18:52 Ondansetron 4 Mg/2 Ml Inj IV 4 mg Q4H PRN Administration Nausea And Vomiting Simple Syrup 15 ml 06/03/21 12:23 Simple Syrup 15 Ml FEEDTUBE PRN PRN Hypoglycemia Simple Syrup 30 ml 06/03/21 12:23 Simple Syrup 15 Ml FEEDTUBE PRN PRN Hypoglycemia Sodium Bicarbonate 325 mg 06/03/21 12:23 Sodium Bicarbonate 325 Mg Tab FEEDTUBE PRN PRN For Clogged Feeding Tube Sodium Chloride 10 ml 05/24/21 10:00 06/04/21 22:43 Sodium Chloride 0.9% 10 Ml Flush Syringe IV 10 ml BID MIKE Administration Sodium Chloride 10 ml 05/23/21 22:01 Sodium Chloride 0.9% 10 Ml Flush Syringe IV PRN PRN LINE FLUSH Nutrition/Malnutrition Assess - Dietary Evaluation Nutrition/Malnutrition Findings: Nutrition Notes Start: 05/25/21 0 9:33 Freq: Status: Active Protocol: Document 06/03/21 12:11 GB (Rec: 06/03/21 12:21 GB [email or web address]) Nutrition Notes Need for Assessment generated from: MD Order Initial or Follow up Brief Note Current Diet NPO Height 5 ft 11 in Weight 77.11 kg [place] Body Weight (kg) 78.18 BMI 23.7 Subjective/Other Information MD order for TF to start. Pt has nutrition f/u 06/06. Pt on Nepro supplement. TF formula to continue as Nepro. Percent of energy/protein needs met: TF to meet 80% or greater of estimated energy needs. #1 Nutrition Diagnosis Inadequate oral intake Comments: Nutritional supplement beverage ordered 06/03: TF ordered Etiology acute illness As Evidenced by Signs and Symptoms decreased PO for 10-12 days [employer] 06/03: TF required to meet needs. Diagnosis Progress(for reassessment Continues documentation) Is patient on ventilator? No Is Patient Ambulatory and/or Out of Bed No REE-([facility]-confined to bed) 1964.124 Kcal/Kg value to use for calculation 25 Approximate Energy Requirements Using 1928 kcal/Kg Calculation Used for Recommendations Kcal/kg Additional Notes Protein 1-1.2 g/kg @77k- 92g Nutrition Intervention Change Diet Order: continue Nutrition Support: Nepro @ 45ml/hr Flush @ 45ml/hr Kcal 1,944 Protein (gm) 87 Fat (gm) 104 Fluid (mL) 785 Goal #1 PO intake of meals to be 75% or greater TID daily for LOS 06/03: tolerate TF formula at goal rate of 45ml/hr Goal #2 PO intake of supplement beverage to be 50% or greater BID daily for LOS On hold related to TF Goal #3 Weight to maintain within +/-3 % current weight for LOS Follow-Up By: 06/06/21
[2021-06-05] MEDS: BACLOFEN 10 MG TAB PO SCH (09:12)
--- NOTE | 2021-06-05 09:17 | Progress Note ---
Subjective Date of service: 06/05/21 Principal diagnosis: Pneumonia Interval history: Impression: * Acute kidney injury secondary to ATN likely related to COVID 19 * Acute hypoxic respiratory failure secondary to COVID 19 PNA * Azotemia * Hyperkalemia * Metabolic acidosis * Hypernatremia Plan: * add 1/2 ns today * stop baclofen * cr 1.3 slightly worse today * free water replacement * Keep MAP>65 * Management of COVID 19 PNA to primary team/ID * Dose medications for renal function * AM labs * Renal diet * follow up lytes prn * Prognosis guarded Subjective Date of service: 06/01/21 Principal diagnosis: Pneumonia Interval history: Nursing, interdisciplinary and consult notes were reviewed Vitals, input and output, medications and labs were reviewed Objective exam deferred for preservation of PPE, primary team exam noted Objective - Vital Signs Vital signs: Vital Signs - 12hr 06/04/21 06/04/21 06/04/21 21:35 22:00 22:19 Temperature 99.3 F Pulse Rate 119 H 96 H 96 H Respiratory 32 H 18 Rate Blood Pressure 113/67 O2 Sat by Pulse 98 93 99 Oximetry 06/05/21 06/05/21 06/05/21 03:19 04:26 06:35 Temperature 97.6 F Pulse Rate 122 H 76 Respiratory 34 H 20 21 Rate Blood Pressure 117/71 O2 Sat by Pulse 97 100 Oximetry - Lab 06/04/21 07:04 06/05/21 05:10 Most recent lab results ABG pH 7.409 (7.320-7.450) 06/03/21 21:23 ABG pCO2 29.0 mm Hg 05/30/21 22:32 ABG pO2 141.8 mm Hg (80.0-90.0) H 05/30/21 22:32 ABG HCO3 19.9 mmol/L (20.0-26.0) L 05/30/21 22:32 ABG O2 Saturation 70.2 (0-100) 06/03/21 21:23 Calcium 8.2 mg/dL (8.4-10.2) L 06/05/21 05:10 Phosphorus 2.20 mg/dL (2.5-4.5) L D 06/03/21 05:57 Magnesium 1.90 mg/dL (1.7-2.3) 06/03/21 05:57 Medications & Allergies - Medications Allergies/Adverse Reactions: Allergies No Known Allergies Allergy (Unverified 02/12/17 15:47) Home Medications: Home Medications Medication Instructions Recorded Confirmed Last Taken Type No Known Home Medications [No 05/31/21 05/31/21 Unknown History Reported Home Medications] Active Medications: Generic Name Dose Route Start Last Admin Trade Name Freq PRN Reason Stop Dose Admin Acetaminophen 650 mg 05/29/21 07:05 06/03/21 21:32 Acetaminophen 325 Mg Tab PO 650 mg Q6H PRN Administration Pain, Mild (1-3) Acetaminophen 650 mg 06/03/21 08:21 06/03/21 08:42 Acetaminophen 650 Mg Rect Supp [place] 650 mg Q4H PRN Administration Pain, Mild (1-3) Albuterol/Ipratropium 1 ampul 06/05/21 12:00 Ipratropium/Albuterol Sulfate 3 Ml Ampul.Neb IH QIDRT MIKE Lipase/Protease/Amylase 1 each 06/03/21 12:23 Lipase 10,500/Protease 25,000/Amylase 43,750 (Units) Dr Rodney FEEDTUBE PRN PRN For Clogged Feeding Tube Baclofen 5 mg 06/04/21 20:00 06/05/21 09:12 Baclofen 10 Mg Tab PO Not Given TID MIKE Heparin Sodium (Porcine) 5,000 unit 05/24/21 06:00 06/05/21 06:04 Heparin 5,000 Unit/1 Ml Vial SUB-Q 5,000 unit Q8HR MIKE Administration Piperacillin Sod/Tazobactam Sod 4.5 gm in 100 mls @ 200 mls/hr 06/03/21 21:30 06/05/21 06:04 Zosyn/Ns 4.5gm/100ml IV 200 mls/hr Q8H MIKE Administration Protocol Magnesium Hydroxide 30 ml 05/23/21 22:01 Magnesium Hydroxide (Mom) Oral Liqd Udc PO Q4H PRN Constipation Methylprednisolone Sodium Succinate 60 mg 06/04/21 10:00 06/05/21 01:48 Methylprednisolone Sod Succinate 125 Mg/2 Ml Inj IV 60 mg Q8H MIKE Administration Morphine Sulfate 2 mg 05/23/21 22:01 06/05/21 06:35 Morphine 2 Mg/1 Ml Inj IV 2 mg Q4H PRN Administration Pain, Moderate (4-6) Morphine Sulfate 4 mg 05/23/21 22:01 Morphine 4 Mg/1 Ml Inj IV Q4H PRN Pain , Severe (7-10) Ondansetron HCl 4 mg 06/04/21 13:41 06/04/21 18:52 Ondansetron 4 Mg/2 Ml Inj IV 4 mg Q4H PRN Administration Nausea And Vomiting Simple Syrup 15 ml 06/03/21 12:23 Simple Syrup 15 Ml FEEDTUBE PRN PRN Hypoglycemia Simple Syrup 30 ml 06/03/21 12:23 Simple Syrup 15 Ml FEEDTUBE PRN PRN Hypoglycemia Sodium Bicarbonate 325 mg 06/03/21 12:23 Sodium Bicarbonate 325 Mg Tab FEEDTUBE PRN PRN For Clogged Feeding Tube Sodium Chloride 10 ml 05/24/21 10:00 06/04/21 22:43 Sodium Chloride 0.9% 10 Ml Flush Syringe IV 10 ml BID MIKE Administration Sodium Chloride 10 ml 05/23/21 22:01 Sodium Chloride 0.9% 10 Ml Flush Syringe IV PRN PRN LINE FLUSH
[2021-06-05] MEDS ORDERED: SODIUM CHLORIDE 0.45% 1000 ML 1,000 ML IV SCH (10:00)
[2021-06-05] MEDS: IPRATROPIUM/ALBUTEROL SULFATE 3 ML AMPUL.NEB IH SCH ×2 (11:14→17:51)
--- NOTE | 2021-06-05 12:35 | Consultation ---
History of Present Illness Consult date: 06/05/21 Chief complaint: Abnormal abdominal x-ray - History of present illness History of present illness: 55-year-old male with past medical history of CVA, recent Covid diagnosis on May 11 who presented to the emergency room with worsening shortness of breath and decreased appetite. Patient was found to be hypoxic and started on supplemental oxygen. He has been maintained on BiPAP during the hospitalization. He has been receiving tube feeds via [place] up until yesterday when he was noted to have vomiting per nursing notes. Abdominal x-ray revealed dilated small bowel loops concerning for possible obstruction. Patient can answer some yes and no questions appropriately while on BiPAP. He denies abdominal pain. He denies any past surgical history. He states he has not had any bowel movements. No bowel movements are recorded in [place]. Dobbhoff was removed yesterday and NG tube inserted. Patient has been admitted since May 23, 2021 and essentially bedbound. Past History Past Medical History: stroke, other (COVID-19) Past Surgical History: No surgical history Social history: smoking (Current daily smoker) Family history: no significant family history Medications and Allergies Allergies Allergy/AdvReac Type Severity Reaction Status Date / Time No Known Allergies Allergy Unverified 02/12/17 15:47 Home Medications Medication Instructions Recorded Confirmed Last Taken Type No Known Home Medications [No 05/31/21 05/31/21 Unknown History Reported Home Medications] Active Meds: Active Medications Acetaminophen (Acetaminophen 325 Mg Tab) 650 mg PO Q6H PRN PRN Reason: Pain, Mild (1-3) Last Admin: 06/03/21 21:32 Dose: 650 mg Documented by: Acetaminophen (Acetaminophen 650 Mg Rect Supp) 650 mg [place] Q4H PRN PRN Reason: Pain, Mild (1-3) Last Admin: 06/03/21 08:42 Dose: 650 mg Documented by: Albuterol/Ipratropium (Ipratropium/Albuterol Sulfate 3 Ml Ampul.Neb) 1 ampul IH QIDRT [facility] Last Admin: 06/05/21 11:14 Dose: Not Given Documented by: Lipase/Protease/Amylase (Lipase 10,500/Protease 25,000/Amylase 43,750 (Units) Dr Rodney) 1 each FEEDTUBE PRN PRN PRN Reason: For Clogged Feeding Tube Bisacodyl (Bisacodyl 10 Mg Rect Supp) 10 mg [place] ONCE ONE Stop: 06/05/21 12:32 Heparin Sodium (Porcine) (Heparin 5,000 Unit/1 Ml Vial) 5,000 unit SUB-Q Q8HR [facility] Last Admin: 06/05/21 06:04 Dose: 5,000 unit Documented by: Piperacillin Sod/Tazobactam Sod (Zosyn/Ns 4.5gm/100ml) 4.5 gm in 100 mls @ 200 mls/hr IV Q8H MIKE; Protocol Last Admin: 06/05/21 06:04 Dose: 200 mls/hr Documented by: Sodium Chloride (Nacl 0.45% 1000 Ml) 1,000 mls @ 75 mls/hr IV DIRECT MIKE Stop: 06/06/21 10:00 Methylprednisolone Sodium Succinate (Methylprednisolone Sod Succinate 125 Mg/2 Ml Inj) 60 mg IV Q8H [facility] Last Admin: 06/05/21 09:31 Dose: 60 mg Documented by: Morphine Sulfate (Morphine 2 Mg/1 Ml Inj) 2 mg IV Q4H PRN PRN Reason: Pain, Moderate (4-6) Last Admin: 06/05/21 06:35 Dose: 2 mg Documented by: Morphine Sulfate (Morphine 4 Mg/1 Ml Inj) 4 mg IV Q4H PRN PRN Reason: Pain , Severe (7-10) Ondansetron HCl (Ondansetron 4 Mg/2 Ml Inj) 4 mg IV Q4H PRN PRN Reason: Nausea And Vomiting Last Admin: 06/04/21 18:52 Dose: 4 mg Documented by: Simple Syrup (Simple Syrup 15 Ml) 15 ml FEEDTUBE PRN PRN PRN Reason: Hypoglycemia Simple Syrup (Simple Syrup 15 Ml) 30 ml FEEDTUBE PRN PRN PRN Reason: Hypoglycemia Sodium Bicarbonate (Sodium Bicarbonate 325 Mg Tab) 325 mg FEEDTUBE PRN PRN PRN Reason: For Clogged Feeding Tube Sodium Chloride (Sodium Chloride 0.9% 10 Ml Flush Syringe) 10 ml IV BID [facility] Last Admin: 06/05/21 09:31 Dose: 10 ml Documented by: Sodium Chloride (Sodium Chloride 0.9% 10 Ml Flush Syringe) 10 ml IV PRN PRN PRN Reason: LINE FLUSH Review of Systems All systems: negative (Limited ROS due to patient being on BiPAP) Exam Vital Signs Temp Pulse Resp BP Pulse Ox 97.9 F 132 H 24 156/92 99 05/23/21 18:36 05/23/21 18:36 05/23/21 18:36 05/23/21 18:36 05/23/21 18:36 Narrative exam: Gen.: Awake, alert, oriented x3. No apparent distress ENT: Trachea midline. No lymphadenopathy. No scleral icterus or conjunctival pallor CV: S1, S2 present Respiratory: No audible wheezes Abdomen: Soft, nondistended, nontender. No rebound, rigidity, guarding Extremities: No clubbing, cyanosis, edema Results - Labs 06/04/21 07:04 06/05/21 05:10 Abnormal lab results 06/04/21 06/05/21 Range/Units 17:42 05:10 Potassium 3.5 L (3.6-5.0) mmol/L BUN 35 H (9-20) mg/dL Glucose 130 H (75-100) mg/dL POC Glucose 136 H (70-105) mg/dL Calcium 8.2 L (8.4-10.2) mg/dL Diabetes panel 06/05/21 Range/Units 05:10 Sodium 141 (137-145) mmol/L Potassium 3.5 L (3.6-5.0) mmol/L Chloride 101.4 (98-107) mmol/L Carbon Dioxide 30 (22-30) mmol/L BUN 35 H (9-20) mg/dL Creatinine 1.3 (0.8-1.3) mg/dL Glucose 130 H (75-100) mg/dL Calcium 8.2 L (8.4-10.2) mg/dL Calcium panel 06/05/21 Range/Units 05:10 Calcium 8.2 L (8.4-10.2) mg/dL Pituitary panel 06/05/21 Range/Units 05:10 Sodium 141 (137-145) mmol/L Potassium 3.5 L (3.6-5.0) mmol/L Chloride 101.4 (98-107) mmol/L Carbon Dioxide 30 (22-30) mmol/L BUN 35 H (9-20) mg/dL Creatinine 1.3 (0.8-1.3) mg/dL Glucose 130 H (75-100) mg/dL Calcium 8.2 L (8.4-10.2) mg/dL Adrenal panel 06/05/21 Range/Units 05:10 Sodium 141 (137-145) mmol/L Potassium 3.5 L (3.6-5.0) mmol/L Chloride 101.4 (98-107) mmol/L Carbon Dioxide 30 (22-30) mmol/L BUN 35 H (9-20) mg/dL Creatinine 1.3 (0.8-1.3) mg/dL Glucose 130 H (75-100) mg/dL Calcium 8.2 L (8.4-10.2) mg/dL - Imaging Abdominal x-ray: report reviewed, image reviewed Assessment and Plan 55 yo M with distended small and large bowel, likely ileus KUB June 04, 2021 reviewed -dilated small and large bowel consistent with ileus Pt stable. Benign abdominal exam. NGT with 150cc of gastric output since placement yesterday. Plan: 1. NPO 2. IVF 3. NGT to LIWS 4. dulcolax suppository 5. monitor lytes and replace as needed 6. Increase mobility when able 7. CT scan A/P ordered- pending No acute surgical intervention at this time. Thank you, please call with questions.
--- NOTE | 2021-06-05 16:04 | Progress Note ---
Assessment and Plan Acute hypoxemic respiratory failure Bilateral pneumonia Suspected 2019 novel coronavirus infection - continue RTC NIV; transition to qhs only therapy as tolerated - repeat ABG & address - get 2D ECHO and re-assess (suspect pulmonary edema element) - trend CRP & Procalcitonin levels to guide clinical decision making - continue to wean supplemental oxygen for target O2 sat's > 90% acutely - continue aspiration precautions - bronchodilators with pulmonary hygiene per RT - continue accuchecks with glycemic control per SSI (While critically ill target blood glucose of 140-180 mg/dL; avoid hypoglycemia) - avoid nephrotoxins, renally dose all medications - continue to avoid benzodiazepine's, reduce the possibility of delirium - AB's per ID rec's - prn analgesia per pain score - Maintenance of sleep-wake cycle, avoid delirium - G.I. & VTE prophylaxis - PT/OT/ROM exercises - mobility protocols for pressure ulcer prophylaxis - Monitor hemodynamics closely - continue other care per attending / other consultants - discharge planning ongoing concurrently COVID SPECIFIC INTERVENTIONS - repeat COVID-19 test result negative .... Re-evaluate in am & prn CONDITION: CRITICAL PROGNOSIS: GUARDED CODE STATUS: FULL CODE The high probability of a clinically significant, sudden or life-threatening deterioration of the [respiratory, GI, renal & cardiovascular] system(s) required my full and direct attention, intervention and personal management. The aggregate critical care time was [35] minutes without overlap. Time includes spent on; [x] Data Review and interpretation [x] Patient assessment and monitoring of vital signs [x] Documentation [x] Medication orders and management Subjective Date of service: 06/05/21 Principal diagnosis: Acute hypoxemic resp failure; Pneumonia; PUI COVID-19 infection Interval history: Patient is seen today for: Acute hypoxemic respiratory failure; Bilateral pneumonia; Suspected 2019 novel coronavirus infection Seen and examined at bedside; 24hour events reviewed; nursing and respiratory care staff consulted; no adverse overnight events reported to me; resting in bed; still SOB; remains on BIPAP RTC; somnolent; denies acute chest or abdominal pain; denies N/V/F/C Objective Vital Signs - 12hr 06/05/21 06/05/21 06/05/21 04:26 06:35 08:45 Temperature 97.6 F Pulse Rate 76 84 Respiratory 20 21 31 H Rate Blood Pressure 117/71 Blood Pressure [Right] O2 Sat by Pulse 100 94 Oximetry 06/05/21 06/05/21 06/05/21 09:12 12:00 14:14 Temperature 97.6 F Pulse Rate 72 72 Respiratory 23 23 Rate Blood Pressure 117/71 Blood Pressure 112/62 [Right] O2 Sat by Pulse 100 99 95 Oximetry Constitutional: no acute distress, asleep, other (middle aged male with mildly increased respiratory effort at rest) Eyes: non-icteric ENT: other (BIPAP FFM) Neck: supple, no JVD Effort: mildly labored Ascultation: Bilateral: diminished breath sounds, rhonchi Percussion: Bilateral: not dull Cardiovascular: regular rate and rhythm Gastrointestinal: hypoactive bowel sounds, soft, non-tender, other (distended but very soft) Integumentary: normal Extremities: no cyanosis, no edema, pulses normal, no ischemia or petechiae Neurologic: pupils equal and round, CN II-XII normal, other (somnolent) Psychiatric: depressed CBC and BMP: 06/04/21 07:04 06/05/21 05:10 ABG, PT/INR, D-dimer: ABG ABG pH 7.409 (7.320-7.450) 06/03/21 21:23 POC ABG pCO2 39.7 mmHg (32.0-48.0) 06/03/21 21:23 ABG pCO2 29.0 mm Hg 05/30/21 22:32 POC ABG pO2 39.0 mmHg (83-108) L 06/03/21 21:23 ABG pO2 141.8 mm Hg (80.0-90.0) H 05/30/21 22:32 POC ABG HCO3 24.5 06/03/21 21:23 ABG O2 Saturation 70.2 (0-100) 06/03/21 21:23 PT/INR, D-dimer D-Dimer 3584.01 ng/mlDDU (0-234) H 05/27/21 08:09 Abnormal lab findings: Abnormal Labs 05/23/21 05/23/21 05/23/21 18:48 18:48 18:48 WBC 11.8 H RBC 5.18 H Hgb Hct MCV MCH MCHC RDW Plt Count Seg Neuts % (Manual) 84.0 H Lymphocytes % (Manual) Nucleated RBC % Seg Neutrophils # Man 9.9 H Lymphocytes # (Manual) D-Dimer > 92950 H ABG pH POC ABG pCO2 POC ABG pO2 ABG pO2 ABG HCO3 ABG Base Excess ABG Hemoglobin ABG Oxyhemoglobin ABG Sodium ABG Chloride ABG Glucose VBG pH Sodium Potassium Chloride Carbon Dioxide BUN Creatinine Glucose POC Glucose Lactic Acid 2.30 H* Calcium Phosphorus Magnesium Ferritin Ammonia Lactate Dehydrogenase C-Reactive Protein Total Protein Albumin Arterial Blood Glucose Arterial Blood Ionized Calcium Urine WBC (Auto) Vancomycin Trough 05/23/21 05/23/21 05/23/21 18:48 18:48 18:48 WBC RBC Hgb Hct MCV MCH MCHC RDW Plt Count Seg Neuts % (Manual) Lymphocytes % (Manual) Nucleated RBC % Seg Neutrophils # Man Lymphocytes # (Manual) D-Dimer ABG pH POC ABG pCO2 POC ABG pO2 ABG pO2 ABG HCO3 ABG Base Excess ABG Hemoglobin ABG Oxyhemoglobin ABG Sodium ABG Chloride ABG Glucose VBG pH Sodium 151 H Potassium 5.1 H Chloride 113.2 H Carbon Dioxide 17 L BUN 180 H Creatinine 4.3 H Glucose 114 H POC Glucose Lactic Acid Calcium Phosphorus Magnesium Ferritin 2000.0 H Ammonia 22.0 L Lactate Dehydrogenase 577 H C-Reactive Protein 8.80 H Total Protein 9.4 H Albumin 3.0 L Arterial Blood Glucose Arterial Blood Ionized Calcium Urine WBC (Auto) Vancomycin Trough 05/23/21 05/24/21 05/24/21 21:06 02:09 02:09 WBC RBC Hgb Hct MCV MCH MCHC RDW Plt Count Seg Neuts % (Manual) Lymphocytes % (Manual) Nucleated RBC % Seg Neutrophils # Man Lymphocytes # (Manual) D-Dimer ABG pH POC ABG pCO2 POC ABG pO2 ABG pO2 ABG HCO3 ABG Base Excess ABG Hemoglobin ABG Oxyhemoglobin ABG Sodium ABG Chloride ABG Glucose VBG pH 7.254 L Sodium Potassium Chloride Carbon Dioxide BUN Creatinine Glucose POC Glucose Lactic Acid 2.10 H* 2.30 H* Calcium Phosphorus Magnesium Ferritin Ammonia Lactate Dehydrogenase C-Reactive Protein Total Protein Albumin Arterial Blood Glucose Arterial Blood Ionized Calcium Urine WBC (Auto) Vancomycin Trough 05/24/21 05/24/21 05/24/21 13:11 17:34 18:12 WBC RBC Hgb Hct MCV MCH MCHC RDW Plt Count Seg Neuts % (Manual) Lymphocytes % (Manual) Nucleated RBC % Seg Neutrophils # Man Lymphocytes # (Manual) D-Dimer ABG pH POC ABG pCO2 POC ABG pO2 ABG pO2 ABG HCO3 ABG Base Excess ABG Hemoglobin ABG Oxyhemoglobin ABG Sodium ABG Chloride ABG Glucose VBG pH Sodium 155 H Potassium 6.9 H* D 5.7 H Chloride 121.9 H Carbon Dioxide 20 L BUN 139 H Creatinine 2.7 H Glucose 139 H POC Glucose 153 H Lactic Acid Calcium Phosphorus Magnesium Ferritin Ammonia Lactate Dehydrogenase C-Reactive Protein Total Protein Albumin Arterial Blood Glucose Arterial Blood Ionized Calcium Urine WBC (Auto) Vancomycin Trough 05/25/21 05/25/21 05/26/21 11:33 11:33 03:15 WBC 13.8 H RBC 5.06 H Hgb Hct MCV MCH MCHC RDW Plt Count Seg Neuts % (Manual) Lymphocytes % (Manual) Nucleated RBC % Seg Neutrophils # Man Lymphocytes # (Manual) D-Dimer ABG pH POC ABG pCO2 POC ABG pO2 ABG pO2 ABG HCO3 ABG Base Excess ABG Hemoglobin ABG Oxyhemoglobin ABG Sodium ABG Chloride ABG Glucose VBG pH Sodium 164 H* D 166 H* Potassium 5.4 H 5.5 H Chloride 131.3 H 129.2 H Carbon Dioxide BUN 109 H 102 H Creatinine 1.9 H 1.8 H Glucose 117 H 113 H POC Glucose Lactic Acid Calcium Phosphorus Magnesium Ferritin Ammonia Lactate Dehydrogenase 711 H C-Reactive Protein 7.90 H Total Protein Albumin Arterial Blood Glucose Arterial Blood Ionized Calcium Urine WBC (Auto) Vancomycin Trough 05/26/21 05/26/21 05/26/21 03:15 03:15 03:15 WBC 13.1 H RBC 5.43 H Hgb 15.3 H Hct 48.5 H MCV MCH MCHC RDW 15.4 H Plt Count Seg Neuts % (Manual) Lymphocytes % (Manual) Nucleated RBC % Seg Neutrophils # Man Lymphocytes # (Manual) D-Dimer 6229.14 H ABG pH POC ABG pCO2 POC ABG pO2 ABG pO2 ABG HCO3 ABG Base Excess ABG Hemoglobin ABG Oxyhemoglobin ABG Sodium ABG Chloride ABG Glucose VBG pH Sodium Potassium Chloride Carbon Dioxide BUN Creatinine Glucose POC Glucose Lactic Acid Calcium Phosphorus Magnesium Ferritin 2991.0 H Ammonia Lactate Dehydrogenase C-Reactive Protein Total Protein Albumin Arterial Blood Glucose Arterial Blood Ionized Calcium Urine WBC (Auto) Vancomycin Trough 05/27/21 05/27/21 05/27/21 08:09 08:09 08:09 WBC 12.4 H RBC 5.27 H Hgb Hct 46.6 H MCV MCH MCHC 31 L RDW 15.7 H Plt Count Seg Neuts % (Manual) Lymphocytes % (Manual) Nucleated RBC % Seg Neutrophils # Man Lymphocytes # (Manual) D-Dimer 3584.01 H ABG pH POC ABG pCO2 POC ABG pO2 ABG pO2 ABG HCO3 ABG Base Excess ABG Hemoglobin ABG Oxyhemoglobin ABG Sodium ABG Chloride ABG Glucose VBG pH Sodium 174 H* Potassium Chloride 136.9 H Carbon Dioxide BUN 90 H Creatinine 1.8 H Glucose POC Glucose Lactic Acid Calcium Phosphorus Magnesium Ferritin Ammonia Lactate Dehydrogenase 642 H C-Reactive Protein 5.20 H Total Protein Albumin Arterial Blood Glucose Arterial Blood Ionized Calcium Urine WBC (Auto) Vancomycin Trough 05/27/21 05/28/21 05/28/21 08:09 07:31 07:31 WBC RBC Hgb Hct MCV MCH 27 L MCHC 31 L RDW Plt Count Seg Neuts % (Manual) 88.0 H Lymphocytes % (Manual) 11.0 L Nucleated RBC % Seg Neutrophils # Man 8.3 H Lymphocytes # (Manual) 1.0 L D-Dimer ABG pH POC ABG pCO2 POC ABG pO2 ABG pO2 ABG HCO3 ABG Base Excess ABG Hemoglobin ABG Oxyhemoglobin ABG Sodium ABG Chloride ABG Glucose VBG pH Sodium 162 H* D Potassium Chloride 125.8 H Carbon Dioxide BUN 72 H Creatinine 1.6 H Glucose 131 H POC Glucose Lactic Acid Calcium Phosphorus Magnesium 3.00 H Ferritin 2742.0 H Ammonia Lactate Dehydrogenase C-Reactive Protein Total Protein Albumin Arterial Blood Glucose Arterial Blood Ionized Calcium Urine WBC (Auto) Vancomycin Trough 05/29/21 05/29/21 05/29/21 06:40 06:40 17:58 WBC 14.1 H RBC Hgb Hct MCV MCH 27 L MCHC 31 L RDW Plt Count Seg Neuts % (Manual) 85.0 H Lymphocytes % (Manual) 9.0 L Nucleated RBC % 1.0 H Seg Neutrophils # Man 12.0 H Lymphocytes # (Manual) D-Dimer ABG pH 7.505 H POC ABG pCO2 30.3 L POC ABG pO2 128.1 H ABG pO2 ABG HCO3 ABG Base Excess ABG Hemoglobin 11.9 L ABG Oxyhemoglobin ABG Sodium ABG Chloride 113.0 H ABG Glucose 110 H VBG pH Sodium 148 H D Potassium Chloride 111.3 H Carbon Dioxide 20 L BUN 45 H Creatinine Glucose POC Glucose Lactic Acid Calcium Phosphorus 2.10 L D Magnesium Ferritin Ammonia Lactate Dehydrogenase C-Reactive Protein Total Protein Albumin Arterial Blood Glucose 110 H Arterial Blood Ionized Calcium 4.5 L Urine WBC (Auto) Vancomycin Trough 05/30/21 05/30/21 05/30/21 01:00 06:06 13:48 WBC RBC Hgb Hct MCV MCH MCHC RDW Plt Count Seg Neuts % (Manual) Lymphocytes % (Manual) Nucleated RBC % Seg Neutrophils # Man Lymphocytes # (Manual) D-Dimer ABG pH POC ABG pCO2 POC ABG pO2 ABG pO2 90.9 H ABG HCO3 ABG Base Excess ABG Hemoglobin 11.8 L ABG Oxyhemoglobin ABG Sodium ABG Chloride ABG Glucose VBG pH Sodium 150 H Potassium Chloride 117.6 H Carbon Dioxide BUN 40 H Creatinine Glucose POC Glucose Lactic Acid Calcium 8.3 L Phosphorus Magnesium Ferritin Ammonia Lactate Dehydrogenase C-Reactive Protein Total Protein Albumin Arterial Blood Glucose Arterial Blood Ionized Calcium Urine WBC (Auto) 12.0 H Vancomycin Trough 05/30/21 05/31/21 05/31/21 22:32 02:22 02:22 WBC RBC Hgb 11.2 L Hct 34.8 L MCV MCH MCHC RDW Plt Count 127 L Seg Neuts % (Manual) 97.0 H Lymphocytes % (Manual) Nucleated RBC % Seg Neutrophils # Man 10.5 H Lymphocytes # (Manual) 0.0 L D-Dimer ABG pH 7.454 H POC ABG pCO2 POC ABG pO2 ABG pO2 141.8 H ABG HCO3 19.9 L ABG Base Excess -2.7 L ABG Hemoglobin ABG Oxyhemoglobin ABG Sodium ABG Chloride ABG Glucose VBG pH Sodium 152 H Potassium Chloride 118.9 H Carbon Dioxide 19 L BUN 48 H Creatinine 1.5 H Glucose 101 H POC Glucose Lactic Acid Calcium 8.3 L Phosphorus Magnesium Ferritin Ammonia Lactate Dehydrogenase C-Reactive Protein Total Protein Albumin Arterial Blood Glucose Arterial Blood Ionized Calcium Urine WBC (Auto) Vancomycin Trough 05/31/21 05/31/21 06/01/21 11:42 21:28 07:10 WBC RBC Hgb Hct MCV MCH MCHC RDW Plt Count Seg Neuts % (Manual) Lymphocytes % (Manual) Nucleated RBC % Seg Neutrophils # Man Lymphocytes # (Manual) D-Dimer ABG pH POC ABG pCO2 POC ABG pO2 ABG pO2 ABG HCO3 ABG Base Excess ABG Hemoglobin ABG Oxyhemoglobin ABG Sodium ABG Chloride ABG Glucose VBG pH Sodium 150 H Potassium Chloride 115.7 H Carbon Dioxide BUN 47 H Creatinine Glucose 115 H POC Glucose 161 H Lactic Acid Calcium Phosphorus Magnesium 2.50 H Ferritin Ammonia Lactate Dehydrogenase C-Reactive Protein Total Protein Albumin Arterial Blood Glucose Arterial Blood Ionized Calcium Urine WBC (Auto) Vancomycin Trough 20.2 H 06/01/21 06/01/21 06/01/21 07:10 07:54 10:39 WBC RBC Hgb 10.7 L Hct 33.5 L MCV MCH MCHC RDW Plt Count Seg Neuts % (Manual) 92.0 H Lymphocytes % (Manual) 4.0 L Nucleated RBC % Seg Neutrophils # Man Lymphocytes # (Manual) 0.3 L D-Dimer ABG pH POC ABG pCO2 POC ABG pO2 ABG pO2 ABG HCO3 ABG Base Excess ABG Hemoglobin ABG Oxyhemoglobin ABG Sodium ABG Chloride ABG Glucose VBG pH Sodium 152 H Potassium Chloride 117.6 H Carbon Dioxide BUN 50 H Creatinine Glucose 140 H POC Glucose 127 H Lactic Acid Calcium 8.3 L Phosphorus Magnesium Ferritin Ammonia Lactate Dehydrogenase C-Reactive Protein Total Protein Albumin Arterial Blood Glucose Arterial Blood Ionized Calcium Urine WBC (Auto) Vancomycin Trough 06/01/21 06/01/21 06/01/21 11:11 16:16 21:45 WBC RBC Hgb Hct MCV MCH MCHC RDW Plt Count Seg Neuts % (Manual) Lymphocytes % (Manual) Nucleated RBC % Seg Neutrophils # Man Lymphocytes # (Manual) D-Dimer ABG pH POC ABG pCO2 POC ABG pO2 ABG pO2 ABG HCO3 ABG Base Excess ABG Hemoglobin ABG Oxyhemoglobin ABG Sodium ABG Chloride ABG Glucose VBG pH Sodium Potassium Chloride Carbon Dioxide BUN Creatinine Glucose POC Glucose 120 H 129 H 150 H Lactic Acid Calcium Phosphorus Magnesium Ferritin Ammonia Lactate Dehydrogenase C-Reactive Protein Total Protein Albumin Arterial Blood Glucose Arterial Blood Ionized Calcium Urine WBC (Auto) Vancomycin Trough 06/02/21 06/02/21 06/02/21 06:53 06:53 07:52 WBC RBC Hgb 10.4 L Hct 32.4 L MCV MCH 27 L MCHC RDW Plt Count Seg Neuts % (Manual) 93.0 H Lymphocytes % (Manual) 3.0 L Nucleated RBC % Seg Neutrophils # Man Lymphocytes # (Manual) 0.2 L D-Dimer ABG pH POC ABG pCO2 POC ABG pO2 ABG pO2 ABG HCO3 ABG Base Excess ABG Hemoglobin ABG Oxyhemoglobin ABG Sodium ABG Chloride ABG Glucose VBG pH Sodium 149 H Potassium Chloride 112.6 H Carbon Dioxide BUN 54 H Creatinine Glucose 123 H POC Glucose 116 H Lactic Acid Calcium 8.2 L Phosphorus Magnesium Ferritin Ammonia Lactate Dehydrogenase C-Reactive Protein Total Protein Albumin Arterial Blood Glucose Arterial Blood Ionized Calcium Urine WBC (Auto) Vancomycin Trough 06/03/21 06/03/21 06/03/21 05:57 05:57 21:23 WBC RBC Hgb 10.7 L Hct 33.0 L MCV 83 L MCH 27 L MCHC RDW Plt Count Seg Neuts % (Manual) 88.0 H Lymphocytes % (Manual) 8.0 L Nucleated RBC % 2.0 H Seg Neutrophils # Man Lymphocytes # (Manual) 0.6 L D-Dimer ABG pH POC ABG pCO2 POC ABG pO2 39.0 L ABG pO2 ABG HCO3 ABG Base Excess ABG Hemoglobin ABG Oxyhemoglobin 69.1 L ABG Sodium 134.1 L ABG Chloride ABG Glucose 135 H VBG pH Sodium Potassium Chloride Carbon Dioxide BUN 36 H Creatinine Glucose 102 H POC Glucose Lactic Acid Calcium 8.0 L Phosphorus 2.20 L D Magnesium Ferritin Ammonia Lactate Dehydrogenase C-Reactive Protein Total Protein Albumin Arterial Blood Glucose 135 H Arterial Blood Ionized Calcium Urine WBC (Auto) Vancomycin Trough 06/04/21 06/04/21 06/04/21 07:04 07:04 17:42 WBC RBC Hgb 11.3 L Hct 34.9 L MCV MCH 27 L MCHC RDW Plt Count Seg Neuts % (Manual) Lymphocytes % (Manual) 5.0 L Nucleated RBC % Seg Neutrophils # Man 8.4 H Lymphocytes # (Manual) 0.5 L D-Dimer ABG pH POC ABG pCO2 POC ABG pO2 ABG pO2 ABG HCO3 ABG Base Excess ABG Hemoglobin ABG Oxyhemoglobin ABG Sodium ABG Chloride ABG Glucose VBG pH Sodium Potassium Chloride Carbon Dioxide BUN 27 H Creatinine Glucose POC Glucose 136 H Lactic Acid Calcium 8.2 L Phosphorus Magnesium Ferritin Ammonia Lactate Dehydrogenase C-Reactive Protein Total Protein Albumin Arterial Blood Glucose Arterial Blood Ionized Calcium Urine WBC (Auto) Vancomycin Trough 06/05/21 06/05/21 06/05/21 05:10 12:32 15:45 WBC RBC Hgb Hct MCV MCH MCHC RDW Plt Count Seg Neuts % (Manual) Lymphocytes % (Manual) Nucleated RBC % Seg Neutrophils # Man Lymphocytes # (Manual) D-Dimer ABG pH POC ABG pCO2 POC ABG pO2 ABG pO2 ABG HCO3 ABG Base Excess ABG Hemoglobin ABG Oxyhemoglobin ABG Sodium ABG Chloride ABG Glucose VBG pH Sodium Potassium 3.5 L Chloride Carbon Dioxide BUN 35 H Creatinine Glucose 130 H POC Glucose 122 H 119 H Lactic Acid Calcium 8.2 L Phosphorus Magnesium Ferritin Ammonia Lactate Dehydrogenase C-Reactive Protein Total Protein Albumin Arterial Blood Glucose Arterial Blood Ionized Calcium Urine WBC (Auto) Vancomycin Trough CT scan - chest: pending Allied health notes reviewed: nursing
[2021-06-06] MEDS: FREE WATER PO SCH ×7 (01:33→18:21)
[2021-06-06] MEDS: IPRATROPIUM/ALBUTEROL SULFATE 3 ML AMPUL.NEB IH SCH ×4 (02:41→18:20)
[2021-06-06] MEDS: methylPREDNISolone Sod Succinate 125 MG/2 ML INJ IV SCH ×3 (02:46→18:20)
[2021-06-06] MEDS: PIPERACIL/TAZOBACTA 4.5/NS 100 4.5 GM/100 ML VIAL IV SCH ×2 (05:45→14:24)
[2021-06-06] MEDS: HEPARIN 5,000 UNIT/1 ML VIAL SUB-Q SCH ×3 (05:46→22:20)
[2021-06-06 06:27] LABS: BUN/Creatinine Ratio 33; Blood Urea Nitrogen 43 mg/dL (9-20); Calcium 7.6 mg/dL (8.4-10.2); Hemolysis Index 0
--- NOTE | 2021-06-06 08:06 | Progress Note ---
Assessment and Plan Assessment and plan: #Acute hypoxic respiratory failure -Currently on BiPAP, will wean as tolerated -VQ scan low probability for PE on admission -continue methylprednisone 60 mg every 8 hours -s/p 1 dose of Lasix -TTE completed, read pending -Pulmonary consulted, recommendations appreciated #Pneumonia -CT abdomen pelvis revealed severe bilateral pneumonia and a cavitary lesion in the left lower lobe -likely secondary to aspiration during ileus -CRP 19.6 and procal 24.30; will start vancomycin, ciprofloxacin -will discontinue zosyn -completed azithromycin and Rocephin in past -ID consulted for recommendations #Ileus-resolved -resolved via CT abd/pelvis -will restart trickle TF -monitor electrolytes and minimize opiate use -Surgery signed off #Severe sepsis -repeat blood cultures no growth to date -procalcitonin 24.30 -discontinue zosyn, start ciprofloxacin and vancomycin -s/p zosyn, cefepime, vancomycin, Flagyl #Lactic acidosis -Resolved #Acute encephalopathy -Resolved -CT head negative, ammonia 22 -Patient cooperative follows commands #COVID-19 infection -Diagnosed on 05/11 -ID consulted, assistance appreciated -s/p 10 days of steroids, restarted on 06/04 due to worsening Pulmonary status -will taper steroids #Hypernatremia, resolved -will continue free water flushes -likely secondary to poor oral intake #ANGELES, resolved #Hyperkalemia, resolved #Discharge planning -Patient and family agreed to the home with home health upon discharge -will continue to wean oxygen to at least 4 L/min prior to discharge Disposition Plan: Continue medical management Total Time Spent with Patient (Minutes): 20 minutes History Interval history: No acute events overnight. Patient alert and oriented. Reports face mask too tight. Denies pain in other discomfort. Hospitalist Physical - Physical exam Narrative exam: GENERAL: Thin male. Lying in bed in no acute distress. HEENT: BiPAP in place. CHEST/LUNGS: Coarse breath sounds bilaterally. No use of assessory muscles of breathing. HEART/CARDIOVASCULAR: Regular rate and rhythm. No murmur, rubs or gallops ap preciated. ABDOMEN: +BS. NT/ND. EXTREMITIES: No cyanosis, clubbing or edema. PSYCH: Cooperative. - Constitutional Vitals: Temp Pulse Resp BP Pulse Ox 98.4 F 68 18 106/56 99 06/06/21 04:23 06/06/21 04:23 06/06/21 04:23 06/06/21 04:23 06/06/21 04:23 General appearance: Present: no acute distress, cachectic - Allied Health Allied health notes reviewed: nursing HEART Score - HEART Score EKG: Non-specific Age: 45-65 Risk factors: 1-2 risk factors Troponin: Troponin T < 0.010 ng/mL (0.00-0.029) 05/23/21 18:48 - Critical Actions Critical Actions: 0-3 pts:0.9-1.7%risk of adverse cardiac event.Candidate for discharge Results - Labs CBC & Chem 7: 06/04/21 07:04 06/06/21 04:35 Labs: Laboratory Last Values WBC 9.2 K/mm3 (4.5-11.0) 06/04/21 07:04 RBC 4.13 M/mm3 (3.65-5.03) 06/04/21 07:04 Hgb 11.3 gm/dl (11.8-15.2) L 06/04/21 07:04 Hct 34.9 % (35.5-45.6) L 06/04/21 07:04 MCV 85 fl (84-94) 06/04/21 07:04 MCH 27 pg (28-32) L 06/04/21 07:04 MCHC 32 % (32-34) 06/04/21 07:04 RDW 14.6 % (13.2-15.2) 06/04/21 07:04 Plt Count 152 K/mm3 (140-440) 06/04/21 07:04 Lymph % (Auto) Learning Disabilities Teacher 06/01/21 07:10 Cherry % (Auto) Learning Disabilities Teacher 06/01/21 07:10 Eos % (Auto) Learning Disabilities Teacher 06/01/21 07:10 Baso % (Auto) Learning Disabilities Teacher 06/01/21 07:10 Lymph # (Auto) Learning Disabilities Teacher 06/01/21 07:10 Cherry # (Auto) Learning Disabilities Teacher 06/01/21 07:10 Eos # (Auto) Learning Disabilities Teacher 06/01/21 07:10 Baso # (Auto) Learning Disabilities Teacher 06/01/21 07:10 Add Manual Diff Complete 06/04/21 07:04 Total Counted 100 06/04/21 07:04 Seg Neutrophils % Learning Disabilities Teacher 06/01/21 07:10 Seg Neuts % (Manual) 88.0 % (40.0-70.0) H 06/03/21 05:57 Band Neutrophils % 1.0 % 06/04/21 07:04 Lymphocytes % (Manual) 5.0 % (13.4-35.0) L 06/04/21 07:04 Reactive Lymphs % (Man) 1.0 % 06/01/21 07:10 Monocytes % (Manual) 3.0 % (0.0-7.3) 06/04/21 07:04 Nucleated RBC % Not Reportable 06/04/21 07:04 Seg Neutrophils # Learning Disabilities Teacher 06/01/21 07:10 Seg Neutrophils # Man 8.4 K/mm3 (1.8-7.7) H 06/04/21 07:04 Band Neutrophils # 0.1 K/mm3 06/04/21 07:04 Lymphocytes # (Manual) 0.5 K/mm3 (1.2-5.4) L 06/04/21 07:04 Abs React Lymphs (Man) 0.0 K/mm3 06/04/21 07:04 Monocytes # (Manual) 0.3 K/mm3 (0.0-0.8) 06/04/21 07:04 Eosinophils # (Manual) 0.0 K/mm3 (0.0-0.4) 06/04/21 07:04 Basophils # (Manual) 0.0 K/mm3 (0.0-0.1) 06/04/21 07:04 Metamyelocytes # 0.0 K/mm3 06/04/21 07:04 Myelocytes # 0.0 K/mm3 06/04/21 07:04 Promyelocytes # 0.0 K/mm3 06/04/21 07:04 Blast Cells # 0.0 K/mm3 06/04/21 07:04 WBC Morphology Not Reportable 06/04/21 07:04 Hypersegmented Neuts Not Reportable 06/04/21 07:04 Hyposegmented Neuts Not Reportable 06/04/21 07:04 Hypogranular Neuts Not Reportable 06/04/21 07:04 Smudge Cells Not Reportable 06/04/21 07:04 Toxic Granulation Not Reportable 06/04/21 07:04 Toxic Vacuolation Not Reportable 06/04/21 07:04 Dohle Bodies Not Reportable 06/04/21 07:04 Pelger-Huet Anomaly Not Reportable 06/04/21 07:04 Kaci Rods Not Reportable 06/04/21 07:04 Platelet Estimate Consistent w auto 06/04/21 07:04 Clumped Platelets Not Reportable 06/04/21 07:04 Plt Clumps, EDTA Not Reportable 06/04/21 07:04 Large Platelets Not Reportable 06/04/21 07:04 Giant Platelets Not Reportable 06/04/21 07:04 Platelet Satelliting Not Reportable 06/04/21 07:04 Plt Morphology Comment Not Reportable 06/04/21 07:04 RBC Morphology Normal 06/04/21 07:04 Dimorphic RBCs Not Reportable 06/04/21 07:04 Polychromasia Not Reportable 06/04/21 07:04 Hypochromasia Not Reportable 06/04/21 07:04 Poikilocytosis Not Reportable 06/04/21 07:04 Anisocytosis Not Reportable 06/04/21 07:04 Microcytosis Not Reportable 06/04/21 07:04 Macrocytosis Not Reportable 06/04/21 07:04 Spherocytes Not Reportable 06/04/21 07:04 Pappenheimer Bodies Not Reportable 06/04/21 07:04 Sickle Cells Not Reportable 06/04/21 07:04 Target Cells Not Reportable 06/04/21 07:04 Tear Drop Cells Not Reportable 06/04/21 07:04 Ovalocytes Not Reportable 06/04/21 07:04 Helmet Cells Not Reportable 06/04/21 07:04 [place] Bodies Not Reportable 06/04/21 07:04 [place] Rings Not Reportable 06/04/21 07:04 [place] Cells Not Reportable 06/04/21 07:04 Bite Cells Not Reportable 06/04/21 07:04 Crenated Cell Not Reportable 06/04/21 07:04 Elliptocytes Not Reportable 06/04/21 07:04 Acanthocytes (Spur) Not Reportable 06/04/21 07:04 Rouleaux Not Reportable 06/04/21 07:04 Hemoglobin C Crystals Not Reportable 06/04/21 07:04 Schistocytes Not Reportable 06/04/21 07:04 Malaria parasites Not Reportable 06/04/21 07:04 Dick Bodies Not Reportable 06/04/21 07:04 Hem Pathologist Commnt No 06/04/21 07:04 D-Dimer 3584.01 ng/mlDDU (0-234) H 05/27/21 08:09 ABG pH 7.456 (7.320-7.450) H 06/05/21 20:06 POC ABG pCO2 43.4 mmHg (32.0-48.0) 06/05/21 20:06 ABG pCO2 29.0 mm Hg 05/30/21 22:32 POC ABG pO2 102.1 mmHg (83-108) 06/05/21 20:06 ABG pO2 141.8 mm Hg (80.0-90.0) H 05/30/21 22:32 POC ABG HCO3 29.9 06/05/21 20:06 ABG HCO3 19.9 mmol/L (20.0-26.0) L 05/30/21 22:32 ABG O2 Saturation 98.2 (0-100) 06/05/21 20:06 ABG O2 Content 19.9 (0.0-44) 05/30/21 22:32 POC ABG Base Excess 5.4 06/05/21 20:06 ABG Base Excess -2.7 mmol/L (-2.0-3.0) L 05/30/21 22:32 ABG Hemoglobin 10.3 (12.0-17.5) L 06/05/21 20:06 ABG Oxyhemoglobin 97.6 (94-98) 06/05/21 20:06 ABG Carboxyhemoglobin 1.1 % (0.0-5.0) 05/30/21 22:32 ABG Methemoglobin 0.3 (0.0-1.5) 06/05/21 20:06 ABG Sodium 138.7 mmol/L (136.0-145.0) 06/05/21 20:06 ABG Potassium 3.1 mmol/L (3.40-4.50) L 06/05/21 20:06 ABG Chloride 103.0 mmol/L (98-107) 06/05/21 20:06 ABG Glucose 125 mg/dL (65-95) H 06/05/21 20:06 VBG pH 7.254 (7.320-7.420) L 05/24/21 02:09 Oxyhemoglobin 97.1 % (95.0-99.0) 05/30/21 22:32 Carboxyhemoglobin 0.3 (0.5-1.5) L 06/05/21 20:06 FiO2 70 % 05/30/21 22:32 FiO2 % 65.0 06/05/21 20:06 Sodium 145 mmol/L (137-145) 06/06/21 04:35 Potassium 3.6 mmol/L (3.6-5.0) 06/06/21 04:35 Chloride 103.1 mmol/L (98-107) 06/06/21 04:35 Carbon Dioxide 30 mmol/L (22-30) 06/06/21 04:35 Anion Gap 16 mmol/L 06/06/21 04:35 BUN 43 mg/dL (9-20) H 06/06/21 04:35 Creatinine 1.3 mg/dL (0.8-1.3) 06/06/21 04:35 Estimated GFR > 60 ml/min 06/06/21 04:35 BUN/Creatinine Ratio 33 % 06/06/21 04:35 Glucose 100 mg/dL (75-100) 06/06/21 04:35 POC Glucose 113 mg/dL (70-105) H 06/05/21 21:27 Lactic Acid 1.20 mmol/L (0.7-2.0) 06/06/21 00:04 Calcium 7.6 mg/dL (8.4-10.2) L 06/06/21 04:35 Phosphorus 2.20 mg/dL (2.5-4.5) L D 06/03/21 05:57 Magnesium 2.30 mg/dL (1.7-2.3) 06/06/21 04:35 Ferritin 2742.0 ng/mL (30.0-300.0) H 05/27/21 08:09 Total Bilirubin 0.90 mg/dL (0.1-1.2) 05/23/21 18:48 AST 27 units/L (5-40) 05/23/21 18:48 ALT 7 units/L (7-56) 05/23/21 18:48 Alkaline Phosphatase 69 units/L (35-129) 05/23/21 18:48 Ammonia 22.0 umol/L (25-60) L 05/23/21 18:48 Lactate Dehydrogenase 642 units/L (91-180) H 05/27/21 08:09 Troponin T < 0.010 ng/mL (0.00-0.029) 05/23/21 18:48 C-Reactive Protein 19.60 mg/dL (0.00-1.30) H 06/06/21 00:04 Total Protein 9.4 g/dL (6.3-8.2) H 05/23/21 18:48 Albumin 3.0 g/dL (3.9-5) L 05/23/21 18:48 Albumin/Globulin Ratio 0.5 % 05/23/21 18:48 Procalcitonin 0.31 ng/mL (<0.15) 05/23/21 18:48 TSH 1.150 mlU/mL (0.270-4.200) 05/23/21 18:48 Arterial Blood Glucose 125 mg/dL (65-95) H 06/05/21 20:06 Arterial Blood Ionized Calcium 4.5 mg/dL (4.6-5.3) L 05/29/21 17:58 Urine Color Eli (Yellow) 05/30/21 01:00 Urine Turbidity Cloudy (Clear) 05/30/21 01:00 Urine pH 5.0 (5.0-7.0) 05/30/21 01:00 Ur Specific [place] 1.019 (1.003-1.030) 05/30/21 01:00 Urine Protein 100 mg/dl mg/dL (Negative) 05/30/21 01:00 Urine Glucose (UA) Neg mg/dL (Negative) 05/30/21 01:00 Urine Ketones Neg mg/dL (Negative) 05/30/21 01:00 Urine Blood Mod (Negative) 05/30/21 01:00 Urine Nitrite Neg (Negative) 05/30/21 01:00 Urine Bilirubin Neg (Negative) 05/30/21 01:00 Urine Urobilinogen 4.0 mg/dL (<2.0) 05/30/21 01:00 Ur Leukocyte Esterase Neg (Negative) 05/30/21 01:00 Urine WBC (Auto) 12.0 /HPF (0.0-6.0) H 05/30/21 01:00 Urine RBC (Auto) 21.0 /HPF (0.0-6.0) 05/30/21 01:00 U Epithel Cells (Auto) 2.0 /HPF (0-13.0) 05/30/21 01:00 Uric Acid Crystals Few 05/30/21 01:00 Urine Mucus Few /HPF 05/30/21 01:00 Urine Yeast (Budding) 2+ /HPF 05/30/21 01:00 Vancomycin Trough 12.2 ug/mL (5.0-20.0) 06/02/21 13:40 Plasma/Serum Alcohol < 0.01 % (0-0.07) 05/23/21 18:48 Proteinase 3 (PR3) Ab <1.0 AI (<1.0) 05/24/21 20:57 Myeloperoxidase Ab <1.0 AI (<1.0) 05/24/21 20:57 Complement C3 108 mg/dL (82-185) 05/24/21 20:57 Complement C4 29 mg/dL (15-53) 05/24/21 20:57 Coronavirus (PCR) Negative (Negative) 05/26/21 08:41 Blood Type A POSITIVE 05/29/21 08:15 Antibody Screen Negative 05/29/21 08:15 Microbiology: Microbiology 06/03/21 21:28 Peripheral/Venous Blood Culture - Preliminary NO GROWTH AFTER 48 HOURS 06/03/21 21:28 Peripheral/Venous Blood Culture - Preliminary NO GROWTH AFTER 48 HOURS Heart/IV: Voiding Method Condom Catheter Active Medications - Current Medications Current Medications: Generic Name Dose Route Start Last Admin Trade Name Freq PRN Reason Stop Dose Admin Acetaminophen 650 mg 05/29/21 07:05 06/03/21 21:32 Acetaminophen 325 Mg Tab PO 650 mg Q6H PRN Administration Pain, Mild (1-3) Acetaminophen 650 mg 06/03/21 08:21 06/03/21 08:42 Acetaminophen 650 Mg Rect Supp SD 650 mg Q4H PRN Administration Pain, Mild (1-3) Albuterol/Ipratropium 1 ampul 06/05/21 12:00 06/06/21 02:41 Ipratropium/Albuterol Sulfate 3 Ml Ampul.Neb IH Not Given QIDRT MIKE Lipase/Protease/Amylase 1 each 06/03/21 12:23 Lipase 10,500/Protease 25,000/Amylase 43,750 (Units) Dr Rodney FEEDTUBE PRN PRN For Clogged Feeding Tube Heparin Sodium (Porcine) 5,000 unit 05/24/21 06:00 06/06/21 05:46 Heparin 5,000 Unit/1 Ml Vial SUB-Q 5,000 unit Q8HR MIKE Administration Piperacillin Sod/Tazobactam Sod 4.5 gm in 100 mls @ 200 mls/hr 06/03/21 21:30 06/06/21 05:45 Zosyn/Ns 4.5gm/100ml IV 200 mls/hr Q8H MIKE Administration Protocol Sodium Chloride 1,000 mls @ 75 mls/hr 06/05/21 10:00 06/06/21 05:46 Nacl 0.45% 1000 Ml IV 06/06/21 10:00 75 mls/hr DIRECT MIKE Administration Methylprednisolone Sodium Succinate 60 mg 06/04/21 10:00 06/06/21 02:46 Methylprednisolone Sod Succinate 125 Mg/2 Ml Inj IV 60 mg Q8H MIKE Administration Morphine Sulfate 2 mg 05/23/21 22:01 06/05/21 15:02 Morphine 2 Mg/1 Ml Inj IV 2 mg Q4H PRN Administration Pain, Moderate (4-6) Morphine Sulfate 4 mg 05/23/21 22:01 Morphine 4 Mg/1 Ml Inj IV Q4H PRN Pain , Severe (7-10) Ondansetron HCl 4 mg 06/04/21 13:41 06/04/21 18:52 Ondansetron 4 Mg/2 Ml Inj IV 4 mg Q4H PRN Administration Nausea And Vomiting Simple Syrup 15 ml 06/03/21 12:23 Simple Syrup 15 Ml FEEDTUBE PRN PRN Hypoglycemia Simple Syrup 30 ml 06/03/21 12:23 Simple Syrup 15 Ml FEEDTUBE PRN PRN Hypoglycemia Sodium Bicarbonate 325 mg 06/03/21 12:23 Sodium Bicarbonate 325 Mg Tab FEEDTUBE PRN PRN For Clogged Feeding Tube Sodium Chloride 10 ml 05/24/21 10:00 06/05/21 21:54 Sodium Chloride 0.9% 10 Ml Flush Syringe IV 10 ml BID MIKE Administration Sodium Chloride 10 ml 05/23/21 22:01 Sodium Chloride 0.9% 10 Ml Flush Syringe IV PRN PRN LINE FLUSH Nutrition/Malnutrition Assess - Dietary Evaluation Nutrition/Malnutrition Findings: Nutrition Notes Start: 05/25/21 09:33 Freq: Status: Active Protocol: Document 06/03/21 12:11 GB (Rec: 06/03/21 12:21 GB [email or web address]) Nutrition Notes Need for Assessment generated from: MD Order Initial or Follow up Brief Note Current Diet NPO Height 5 ft 11 in Weight 77.11 kg [place] Body Weight (kg) 78.18 BMI 23.7 Subjective/Other Information MD order for TF to start. Pt has nutrition f/u 06/06. Pt on Nepro supplement. TF formula to continue as Nepro. Percent of energy/protein needs met: TF to meet 80% or greater of estimated energy needs. #1 Nutrition Diagnosis Inadequate oral intake Comments: Nutritional supplement beverage ordered 06/03: TF ordered Etiology acute illness As Evidenced by Signs and Symptoms decreased PO for 10-12 days ANIMAL WARDEN 06/03: TF required to meet needs. Diagnosis Progress(for reassessment Continues documentation) Is patient on ventilator? No Is Patient Ambulatory and/or Out of Bed No REE-([place]-confined to bed) 1964.124 Kcal/Kg value to use for calculation 25 Approximate Energy Requirements Using 1928 kcal/Kg Calculation Used for Recommendations Kcal/kg Additional Notes Protein 1-1.2 g/kg @77k- 92g Nutrition Intervention Change Diet Order: continue Nutrition Support: Nepro @ 45ml/hr Flush @ 45ml/hr Kcal 1,944 Protein (gm) 87 Fat (gm) 104 Fluid (mL) 785 Goal #1 PO intake of meals to be 75% or greater TID daily for LOS 06/03: tolerate TF formula at goal rate of 45ml/hr Goal #2 PO intake of supplement beverage to be 50% or greater BID daily for LOS On hold related to TF Goal #3 Weight to maintain within +/-3 % current weight for LOS Follow-Up By: 06/06/21
--- NOTE | 2021-06-06 11:46 | Progress Note ---
Assessment and Plan Acute hypoxemic respiratory failure Bilateral pneumonia Suspected 2018 novel coronavirus infection - follow CT abd/pelvis - follow 2D ECHO report - continue NIV qhs with prn daytime use - CRP & Procalcitonin trending upwards - continue anti-infective's per ID rec's - continue care as below otherwise; - continue to wean supplemental oxygen for target O2 sat's > 90% acutely - continue aspiration precautions - bronchodilators with pulmonary hygiene per RT - continue accuchecks with glycemic control per SSI (While critically ill target blood glucose of 140-180 mg/dL; avoid hypoglycemia) - avoid nephrotoxins, renally dose all medications - continue to avoid benzodiazepine's, reduce the possibility of delirium - prn analgesia per pain score - Maintenance of sleep-wake cycle, avoid delirium - G.I. & VTE prophylaxis - PT/OT/ROM exercises - mobility protocols for pressure ulcer prophylaxis - Monitor hemodynamics closely - continue other care per attending / other consultants - discharge planning ongoing concurrently COVID SPECIFIC INTERVENTIONS - repeat COVID-19 test result negative .... Re-evaluate in am & prn CONDITION: CRITICAL PROGNOSIS: GUARDED CODE STATUS: FULL CODE The high probability of a clinically significant, sudden or life-threatening deterioration of the [respiratory, GI, renal & cardiovascular] system(s) required my full and direct attention, intervention and personal management. The aggregate critical care time was [32] minutes without overlap. Time includes spent on; [x] Data Review and interpretation [x] Patient assessment and monitoring of vital signs [x] Documentation [x] Medication orders and management Subjective Date of service: 06/06/21 Principal diagnosis: Acute hypoxemic resp failure; Pneumonia; PUI COVID-19 infection Interval history: Patient is seen today for: Acute hypoxemic respiratory failure; Bilateral pneumonia; Suspected 2019 novel coronavirus infection Seen and examined at bedside; 24hour events reviewed; nursing and respiratory care staff consulted; no adverse overnight events reported to me; resting in bed; still SOB but now tolerating toime off BIPAP; on HFNC 40 Liter and 100% FiO2; denies acute pain; s/p CT abd/pelvis; no vomiting today Objective Vital Signs - 12hr 06/06/21 06/06/21 06/06/21 04:23 10:00 11:05 Temperature 98.4 F 97.9 F Pulse Rate 68 60 Respiratory 18 26 H Rate Blood Pressure 106/56 111/54 O2 Sat by Pulse 99 100 97 Oximetry Constitutional: asleep, appears uncomfortable, other (middle aged male with mildly increased respiratory effort at rest) Eyes: non-icteric Neck: supple, no JVD Effort: mildly labored Ascultation: Bilateral: diminished breath sounds (bases), rhonchi Percussion: Bilateral: not dull Cardiovascular: regular rate and rhythm Gastrointestinal: hypoactive bowel sounds, soft, non-tender, other (distended but very soft) Integumentary: normal Extremities: no cyanosis, no edema, pulses normal, no ischemia or petechiae Neurologic: pupils equal and round, CN II-XII normal, other (somnolent) Psychiatric: other (flat affect) CBC and BMP: 06/07/21 10:03 06/08/21 07:18 ABG, PT/INR, D-dimer: ABG ABG pH 7.456 (7.320-7.450) H 06/05/21 20:06 POC ABG pCO2 43.4 mmHg (32.0-48.0) 06/05/21 20:06 ABG pCO2 29.0 mm Hg 05/30/21 22:32 POC ABG pO2 102.1 mmHg (83-108) 06/05/21 20:06 ABG pO2 141.8 mm Hg (80.0-90.0) H 05/30/21 22:32 POC ABG HCO3 29.9 06/05/21 20:06 ABG O2 Saturation 98.2 (0-100) 06/05/21 20:06 PT/INR, D-dimer D-Dimer 3584.01 ng/mlDDU (0-234) H 05/27/21 08:09 Abnormal lab findings: Abnormal Labs 05/23/21 05/23/21 05/23/21 18:48 18:48 18:48 WBC 11.8 H RBC 5.18 H Hgb Hct MCV MCH MCHC RDW Plt Count Seg Neuts % (Manual) 84.0 H Lymphocytes % (Manual) Nucleated RBC % Seg Neutrophils # Man 9.9 H Lymphocytes # (Manual) D-Dimer > 65459 H ABG pH POC ABG pCO2 POC ABG pO2 ABG pO2 ABG HCO3 ABG Base Excess ABG Hemoglobin ABG Oxyhemoglobin ABG Sodium ABG Potassium ABG Chloride ABG Glucose VBG pH Carboxyhemoglobin Sodium Potassium Chloride Carbon Dioxide BUN Creatinine Glucose POC Glucose Lactic Acid 2.30 H* Calcium Phosphorus Magnesium Ferritin Ammonia Lactate Dehydrogenase C-Reactive Protein Total Protein Albumin Arterial Blood Glucose Arterial Blood Ionized Calcium Urine WBC (Auto) Vancomycin Trough 05/23/21 05/23/21 05/23/21 18:48 18:48 18:48 WBC RBC Hgb Hct MCV MCH MCHC RDW Plt Count Seg Neuts % (Manual) Lymphocytes % (Manual) Nucleated RBC % Seg Neutrophils # Man Lymphocytes # (Manual) D-Dimer ABG pH POC ABG pCO2 POC ABG pO2 ABG pO2 ABG HCO3 ABG Base Excess ABG Hemoglobin ABG Oxyhemoglobin ABG Sodium ABG Potassium ABG Chloride ABG Glucose VBG pH Carboxyhemoglobin Sodium 151 H Potassium 5.1 H Chloride 113.2 H Carbon Dioxide 17 L BUN 180 H Creatinine 4.3 H Glucose 114 H POC Glucose Lactic Acid Calcium Phosphorus Magnesium Ferritin 2000.0 H Ammonia 22.0 L Lactate Dehydrogenase 577 H C-Reactive Protein 8.80 H Total Protein 9.4 H Albumin 3.0 L Arterial Blood Glucose Arterial Blood Ionized Calcium Urine WBC (Auto) Vancomycin Trough 05/23/21 05/24/21 05/24/21 21:06 02:09 02:09 WBC RBC Hgb Hct MCV MCH MCHC RDW Plt Count Seg Neuts % (Manual) Lymphocytes % (Manual) Nucleated RBC % Seg Neutrophils # Man Lymphocytes # (Manual) D-Dimer ABG pH POC ABG pCO2 POC ABG pO2 ABG pO2 ABG HCO3 ABG Base Excess ABG Hemoglobin ABG Oxyhemoglobin ABG Sodium ABG Potassium ABG Chloride ABG Glucose VBG pH 7.254 L Carboxyhemoglobin Sodium Potassium Chloride Carbon Dioxide BUN Creatinine Glucose POC Glucose Lactic Acid 2.10 H* 2.30 H* Calcium Phosphorus Magnesium Ferritin Ammonia Lactate Dehydrogenase C-Reactive Protein Total Protein Albumin Arterial Blood Glucose Arterial Blood Ionized Calcium Urine WBC (Auto) Vancomycin Trough 05/24/21 05/24/21 05/24/21 13:11 17:34 18:12 WBC RBC Hgb Hct MCV MCH MCHC RDW Plt Count Seg Neuts % (Manual) Lymphocytes % (Manual) Nucleated RBC % Seg Neutrophils # Man Lymphocytes # (Manual) D-Dimer ABG pH POC ABG pCO2 POC ABG pO2 ABG pO2 ABG HCO3 ABG Base Excess ABG Hemoglobin ABG Oxyhemoglobin ABG Sodium ABG Potassium ABG Chloride ABG Glucose VBG pH Carboxyhemoglobin Sodium 155 H Potassium 6.9 H* D 5.7 H Chloride 121.9 H Carbon Dioxide 20 L BUN 139 H Creatinine 2.7 H Glucose 139 H POC Glucose 153 H Lactic Acid Calcium Phosphorus Magnesium Ferritin Ammonia Lactate Dehydrogenase C-Reactive Protein Total Protein Albumin Arterial Blood Glucose Arterial Blood Ionized Calcium Urine WBC (Auto) Vancomycin Trough 05/25/21 05/25/21 05/26/21 11:33 11:33 03:15 WBC 13.8 H RBC 5.06 H Hgb Hct MCV MCH MCHC RDW Plt Count Seg Neuts % (Manual) Lymphocytes % (Manual) Nucleated RBC % Seg Neutrophils # Man Lymphocytes # (Manual) D-Dimer ABG pH POC ABG pCO2 POC ABG pO2 ABG pO2 ABG HCO3 ABG Base Excess ABG Hemoglobin ABG Oxyhemoglobin ABG Sodium ABG Potassium ABG Chloride ABG Glucose VBG pH Carboxyhemoglobin Sodium 164 H* D 166 H* Potassium 5.4 H 5.5 H Chloride 131.3 H 129.2 H Carbon Dioxide BUN 109 H 102 H Creatinine 1.9 H 1.8 H Glucose 117 H 113 H POC Glucose Lactic Acid Calcium Phosphorus Magnesium Ferritin Ammonia Lactate Dehydrogenase 711 H C-Reactive Protein 7.90 H Total Protein Albumin Arterial Blood Glucose Arterial Blood Ionized Calcium Urine WBC (Auto) Vancomycin Trough 05/26/21 05/26/21 05/26/21 03:15 03:15 03:15 WBC 13.1 H RBC 5.43 H Hgb 15.3 H Hct 48.5 H MCV MCH MCHC RDW 15.4 H Plt Count Seg Neuts % (Manual) Lymphocytes % (Manual) Nucleated RBC % Seg Neutrophils # Man Lymphocytes # (Manual) D-Dimer 6229.14 H ABG pH POC ABG pCO2 POC ABG pO2 ABG pO2 ABG HCO3 ABG Base Excess ABG Hemoglobin ABG Oxyhemoglobin ABG Sodium ABG Potassium ABG Chloride ABG Glucose VBG pH Carboxyhemoglobin Sodium Potassium Chloride Carbon Dioxide BUN Creatinine Glucose POC Glucose Lactic Acid Calcium Phosphorus Magnesium Ferritin 2991.0 H Ammonia Lactate Dehydrogenase C-Reactive Protein Total Protein Albumin Arterial Blood Glucose Arterial Blood Ionized Calcium Urine WBC (Auto) Vancomycin Trough 05/27/21 05/27/21 05/27/21 08:09 08:09 08:09 WBC 12.4 H RBC 5.27 H Hgb Hct 46.6 H MCV MCH MCHC 31 L RDW 15.7 H Plt Count Seg Neuts % (Manual) Lymphocytes % (Manual) Nucleated RBC % Seg Neutrophils # Man Lymphocytes # (Manual) D-Dimer 3584.01 H ABG pH POC ABG pCO2 POC ABG pO2 ABG pO2 ABG HCO3 ABG Base Excess ABG Hemoglobin ABG Oxyhemoglobin ABG Sodium ABG Potassium ABG Chloride ABG Glucose VBG pH Carboxyhemoglobin Sodium 174 H* Potassium Chloride 136.9 H Carbon Dioxide BUN 90 H Creatinine 1.8 H Glucose POC Glucose Lactic Acid Calcium Phosphorus Magnesium Ferritin Ammonia Lactate Dehydrogenase 642 H C-Reactive Protein 5.20 H Total Protein Albumin Arterial Blood Glucose Arterial Blood Ionized Calcium Urine WBC (Auto) Vancomycin Trough 05/27/21 05/28/21 05/28/21 08:09 07:31 07:31 WBC RBC Hgb Hct MCV MCH 27 L MCHC 31 L RDW Plt Count Seg Neuts % (Manual) 88.0 H Lymphocytes % (Manual) 11.0 L Nucleated RBC % Seg Neutrophils # Man 8.3 H Lymphocytes # (Manual) 1.0 L D-Dimer ABG pH POC ABG pCO2 POC ABG pO2 ABG pO2 ABG HCO3 ABG Base Excess ABG Hemoglobin ABG Oxyhemoglobin ABG Sodium ABG Potassium ABG Chloride ABG Glucose VBG pH Carboxyhemoglobin Sodium 162 H* D Potassium Chloride 125.8 H Carbon Dioxide BUN 72 H Creatinine 1.6 H Glucose 131 H POC Glucose Lactic Acid Calcium Phosphorus Magnesium 3.00 H Ferritin 2742.0 H Ammonia Lactate Dehydrogenase C-Reactive Protein Total Protein Albumin Arterial Blood Glucose Arterial Blood Ionized Calcium Urine WBC (Auto) Vancomycin Trough 05/29/21 05/29/21 05/29/21 06:40 06:40 17:58 WBC 14.1 H RBC Hgb Hct MCV MCH 27 L MCHC 31 L RDW Plt Count Seg Neuts % (Manual) 85.0 H Lymphocytes % (Manual) 9.0 L Nucleated RBC % 1.0 H Seg Neutrophils # Man 12.0 H Lymphocytes # (Manual) D-Dimer ABG pH 7.505 H POC ABG pCO2 30.3 L POC ABG pO2 128.1 H ABG pO2 ABG HCO3 ABG Base Excess ABG Hemoglobin 11.9 L ABG Oxyhemoglobin ABG Sodium ABG Potassium ABG Chloride 113.0 H ABG Glucose 110 H VBG pH Carboxyhemoglobin Sodium 148 H D Potassium Chloride 111.3 H Carbon Dioxide 20 L BUN 45 H Creatinine Glucose POC Glucose Lactic Acid Calcium Phosphorus 2.10 L D Magnesium Ferritin Ammonia Lactate Dehydrogenase C-Reactive Protein Total Protein Albumin Arterial Blood Glucose 110 H Arterial Blood Ionized Calcium 4.5 L Urine WBC (Auto) Vancomycin Trough 05/30/21 05/30/21 05/30/21 01:00 06:06 13:48 WBC RBC Hgb Hct MCV MCH MCHC RDW Plt Count Seg Neuts % (Manual) Lymphocytes % (Manual) Nucleated RBC % Seg Neutrophils # Man Lymphocytes # (Manual) D-Dimer ABG pH POC ABG pCO2 POC ABG pO2 ABG pO2 90.9 H ABG HCO3 ABG Base Excess ABG Hemoglobin 11.8 L ABG Oxyhemoglobin ABG Sodium ABG Potassium ABG Chloride ABG Glucose VBG pH Carboxyhemoglobin Sodium 150 H Potassium Chloride 117.6 H Carbon Dioxide BUN 40 H Creatinine Glucose POC Glucose Lactic Acid Calcium 8.3 L Phosphorus Magnesium Ferritin Ammonia Lactate Dehydrogenase C-Reactive Protein Total Protein Albumin Arterial Blood Glucose Arterial Blood Ionized Calcium Urine WBC (Auto) 12.0 H Vancomycin Trough 05/30/21 05/31/21 05/31/21 22:32 02:22 02:22 WBC RBC Hgb 11.2 L Hct 34.8 L MCV MCH MCHC RDW Plt Count 127 L Seg Neuts % (Manual) 97.0 H Lymphocytes % (Manual) Nucleated RBC % Seg Neutrophils # Man 10.5 H Lymphocytes # (Manual) 0.0 L D-Dimer ABG pH 7.454 H POC ABG pCO2 POC ABG pO2 ABG pO2 141.8 H ABG HCO3 19.9 L ABG Base Excess -2.7 L ABG Hemoglobin ABG Oxyhemoglobin ABG Sodium ABG Potassium ABG Chloride ABG Glucose VBG pH Carboxyhemoglobin Sodium 152 H Potassium Chloride 118.9 H Carbon Dioxide 19 L BUN 48 H Creatinine 1.5 H Glucose 101 H POC Glucose Lactic Acid Calcium 8.3 L Phosphorus Magnesium Ferritin Ammonia Lactate Dehydrogenase C-Reactive Protein Total Protein Albumin Arterial Blood Glucose Arterial Blood Ionized Calcium Urine WBC (Auto) Vancomycin Trough 05/31/21 05/31/21 06/01/21 11:42 21:28 07:10 WBC RBC Hgb Hct MCV MCH MCHC RDW Plt Count Seg Neuts % (Manual) Lymphocytes % (Manual) Nucleated RBC % Seg Neutrophils # Man Lymphocytes # (Manual) D-Dimer ABG pH POC ABG pCO2 POC ABG pO2 ABG pO2 ABG HCO3 ABG Base Excess ABG Hemoglobin ABG Oxyhemoglobin ABG Sodium ABG Potassium ABG Chloride ABG Glucose VBG pH Carboxyhemoglobin Sodium 150 H Potassium Chloride 115.7 H Carbon Dioxide BUN 47 H Creatinine Glucose 115 H POC Glucose 161 H Lactic Acid Calcium Phosphorus Magnesium 2.50 H Ferritin Ammonia Lactate Dehydrogenase C-Reactive Protein Total Protein Albumin Arterial Blood Glucose Arterial Blood Ionized Calcium Urine WBC (Auto) Vancomycin Trough 20.2 H 06/01/21 06/01/21 06/01/21 07:10 07:54 10:39 WBC RBC Hgb 10.7 L Hct 33.5 L MCV MCH MCHC RDW Plt Count Seg Neuts % (Manual) 92.0 H Lymphocytes % (Manual) 4.0 L Nucleated RBC % Seg Neutrophils # Man Lymphocytes # (Manual) 0.3 L D-Dimer ABG pH POC ABG pCO2 POC ABG pO2 ABG pO2 ABG HCO3 ABG Base Excess ABG Hemoglobin ABG Oxyhemoglobin ABG Sodium ABG Potassium ABG Chloride ABG Glucose VBG pH Carboxyhemoglobin Sodium 152 H Potassium Chloride 117.6 H Carbon Dioxide BUN 50 H Creatinine Glucose 140 H POC Glucose 127 H Lactic Acid Calcium 8.3 L Phosphorus Magnesium Ferritin Ammonia Lactate Dehydrogenase C-Reactive Protein Total Protein Albumin Arterial Blood Glucose Arterial Blood Ionized Calcium Urine WBC (Auto) Vancomycin Trough 06/01/21 06/01/21 06/01/21 11:11 16:16 21:45 WBC RBC Hgb Hct MCV MCH MCHC RDW Plt Count Seg Neuts % (Manual) Lymphocytes % (Manual) Nucleated RBC % Seg Neutrophils # Man Lymphocytes # (Manual) D-Dimer ABG pH POC ABG pCO2 POC ABG pO2 ABG pO2 ABG HCO3 ABG Base Excess ABG Hemoglobin ABG Oxyhemoglobin ABG Sodium ABG Potassium ABG Chloride ABG Glucose VBG pH Carboxyhemoglobin Sodium Potassium Chloride Carbon Dioxide BUN Creatinine Glucose POC Glucose 120 H 129 H 150 H Lactic Acid Calcium Phosphorus Magnesium Ferritin Ammonia Lactate Dehydrogenase C-Reactive Protein Total Protein Albumin Arterial Blood Glucose Arterial Blood Ionized Calcium Urine WBC (Auto) Vancomycin Trough 06/02/21 06/02/21 06/02/21 06:53 06:53 07:52 WBC RBC Hgb 10.4 L Hct 32.4 L MCV MCH 27 L MCHC RDW Plt Count Seg Neuts % (Manual) 93.0 H Lymphocytes % (Manual) 3.0 L Nucleated RBC % Seg Neutrophils # Man Lymphocytes # (Manual) 0.2 L D-Dimer ABG pH POC ABG pCO2 POC ABG pO2 ABG pO2 ABG HCO3 ABG Base Excess ABG Hemoglobin ABG Oxyhemoglobin ABG Sodium ABG Potassium ABG Chloride ABG Glucose VBG pH Carboxyhemoglobin Sodium 149 H Potassium Chloride 112.6 H Carbon Dioxide BUN 54 H Creatinine Glucose 123 H POC Glucose 116 H Lactic Acid Calcium 8.2 L Phosphorus Magnesium Ferritin Ammonia Lactate Dehydrogenase C-Reactive Protein Total Protein Albumin Arterial Blood Glucose Arterial Blood Ionized Calcium Urine WBC (Auto) Vancomycin Trough 06/03/21 06/03/21 06/03/21 05:57 05:57 21:23 WBC RBC Hgb 10.7 L Hct 33.0 L MCV 83 L MCH 27 L MCHC RDW Plt Count Seg Neuts % (Manual) 88.0 H Lymphocytes % (Manual) 8.0 L Nucleated RBC % 2.0 H Seg Neutrophils # Man Lymphocytes # (Manual) 0.6 L D-Dimer ABG pH POC ABG pCO2 POC ABG pO2 39.0 L ABG pO2 ABG HCO3 ABG Base Excess ABG Hemoglobin ABG Oxyhemoglobin 69.1 L ABG Sodium 134.1 L ABG Potassium ABG Chloride ABG Glucose 135 H VBG pH Carboxyhemoglobin Sodium Potassium Chloride Carbon Dioxide BUN 36 H Creatinine Glucose 102 H POC Glucose Lactic Acid Calcium 8.0 L Phosphorus 2.20 L D Magnesium Ferritin Ammonia Lactate Dehydrogenase C-Reactive Protein Total Protein Albumin Arterial Blood Glucose 135 H Arterial Blood Ionized Calcium Urine WBC (Auto) Vancomycin Trough 06/04/21 06/04/21 06/04/21 07:04 07:04 17:42 WBC RBC Hgb 11.3 L Hct 34.9 L MCV MCH 27 L MCHC RDW Plt Count Seg Neuts % (Manual) Lymphocytes % (Manual) 5.0 L Nucleated RBC % Seg Neutrophils # Man 8.4 H Lymphocytes # (Manual) 0.5 L D-Dimer ABG pH POC ABG pCO2 POC ABG pO2 ABG pO2 ABG HCO3 ABG Base Excess ABG Hemoglobin ABG Oxyhemoglobin ABG Sodium ABG Potassium ABG Chloride ABG Glucose VBG pH Carboxyhemoglobin Sodium Potassium Chloride Carbon Dioxide BUN 27 H Creatinine Glucose POC Glucose 136 H Lactic Acid Calcium 8.2 L Phosphorus Magnesium Ferritin Ammonia Lactate Dehydrogenase C-Reactive Protein Total Protein Albumin Arterial Blood Glucose Arterial Blood Ionized Calcium Urine WBC (Auto) Vancomycin Trough 06/05/21 06/05/21 06/05/21 05:10 12:32 15:45 WBC RBC Hgb Hct MCV MCH MCHC RDW Plt Count Seg Neuts % (Manual) Lymphocytes % (Manual) Nucleated RBC % Seg Neutrophils # Man Lymphocytes # (Manual) D-Dimer ABG pH POC ABG pCO2 POC ABG pO2 ABG pO2 ABG HCO3 ABG Base Excess ABG Hemoglobin ABG Oxyhemoglobin ABG Sodium ABG Potassium ABG Chloride ABG Glucose VBG pH Carboxyhemoglobin Sodium Potassium 3.5 L Chloride Carbon Dioxide BUN 35 H Creatinine Glucose 130 H POC Glucose 122 H 119 H Lactic Acid Calcium 8.2 L Phosphorus Magnesium Ferritin Ammonia Lactate Dehydrogenase C-Reactive Protein Total Protein Albumin Arterial Blood Glucose Arterial Blood Ionized Calcium Urine WBC (Auto) Vancomycin Trough 06/05/21 06/05/21 06/06/21 20:06 21:27 00:04 WBC RBC Hgb Hct MCV MCH MCHC RDW Plt Count Seg Neuts % (Manual) Lymphocytes % (Manual) Nucleated RBC % Seg Neutrophils # Man Lymphocytes # (Manual) D-Dimer ABG pH 7.456 H POC ABG pCO2 POC ABG pO2 ABG pO2 ABG HCO3 ABG Base Excess ABG Hemoglobin 10.3 L ABG Oxyhemoglobin ABG Sodium ABG Potassium 3.1 L ABG Chloride ABG Glucose 125 H VBG pH Carboxyhemoglobin 0.3 L Sodium Potassium Chloride Carbon Dioxide BUN Creatinine Glucose POC Glucose 113 H Lactic Acid Calcium Phosphorus Magnesium Ferritin Ammonia Lactate Dehydrogenase C-Reactive Protein 19.60 H Total Protein Albumin Arterial Blood Glucose 125 H Arterial Blood Ionized Calcium Urine WBC (Auto) Vancomycin Trough 06/06/21 04:35 WBC RBC Hgb Hct MCV MCH MCHC RDW Plt Count Seg Neuts % (Manual) Lymphocytes % (Manual) Nucleated RBC % Seg Neutrophils # Man Lymphocytes # (Manual) D-Dimer ABG pH POC ABG pCO2 POC ABG pO2 ABG pO2 ABG HCO3 ABG Base Excess ABG Hemoglobin ABG Oxyhemoglobin ABG Sodium ABG Potassium ABG Chloride ABG Glucose VBG pH Carboxyhemoglobin Sodium Potassium Chloride Carbon Dioxide BUN 43 H Creatinine Glucose POC Glucose Lactic Acid Calcium 7.6 L Phosphorus Magnesium Ferritin Ammonia Lactate Dehydrogenase C-Reactive Protein Total Protein Albumin Arterial Blood Glucose Arterial Blood Ionized Calcium Urine WBC (Auto) Vancomycin Trough CT scan - chest: pending Allied health notes reviewed: nursing
--- NOTE | 2021-06-06 12:23 | Event Note ---
Date: 06/06/[address] A/P images reviewed, radiology read pending. B/L lower lung morales with atelectasis. Unremarkable bowel pattern, no obstruction. 55 yo M with distended small and large bowel, likely ileus - resolved on CT Plan: 1. May start TF, start trickle feeds and slowly advance to goal 2. gentle IVF until viktoria goal TF 3. bowel regimen daily 4. monitor lytes and replace as needed 5. Increase mobility when able 6. Limit narcotic use No acute surgical intervention at this time. Will s/o Thank you, please call with questions.
--- NOTE | 2021-06-06 13:11 | Cat Scan Report ---
CT ABDOMEN AND PELVIS WITH IV CONTRAST INDICATION: suspect small bowel obstruction. Abdominal pain COMPARISON: None available. TECHNIQUE: Axial CT images were obtained through the abdomen and pelvis after 100 mL IV contrast. All CT scans a t this location are performed using CT dose reduction for ALARA by means of automated exposure contro l. FINDINGS -- ABDOMEN: Lung Bases: Severe dependent airspace disease/consolidation involving both lower lungs. There is a ca vitary lesion within the left lower lobe measuring about 3 cm in diameter. Abnormal groundglass opaci ty throughout much of the nondependent portion of the right middle lobe, right upper lobe and left up per lobe. Liver: Normal. Gallbladder: Normal. Bile Ducts: Normal. Pancreas: Normal. Spleen: Normal. Adrenals: Normal. Right Kidney and Proximal Ureter: Normal. Left Kidney and Proximal Ureter: Normal. Stomach and Bowel: Normal. Lymph Nodes: No significant adenopathy. Aorta: Scattered atherosclerotic calcification. IVC: Normal. Additional Findings: None. FINDINGS -- PELVIS: Urinary Bladder and Distal Ureters: Normal. Reproductive Organs: No acute abnormality. Appendix: Normal. Bowel: No acute abnormality. Free Fluid: None. Lymph Nodes: No significant adenopathy. Additional Findings: None. Skeletal System: No acute abnormality. IMPRESSION: 1. Mild diffuse enteritis. No evidence of high-grade small bowel obstruction. 2. Severe aspiration type pneumonia identified throughout both lower lungs with cavitary lesion withi n the left lower lobe measuring about 3 cm in diameter. 3. Other incidental findings as noted above. Signer Name: Kings Block MD Signed: 06/06/2021 1:07 PM Workstation Name: [id number]
--- NOTE | 2021-06-06 13:21 | Progress Note ---
Subjective Date of service: 06/06/21 Principal diagnosis: Acute hypoxemic resp failure; Pneumonia; PUI COVID-19 infection Interval history: Impression: * Acute kidney injury secondary to ATN likely related to COVID 19 * Acute hypoxic respiratory failure secondary to COVID 19 PNA * Azotemia * Hyperkalemia * Metabolic acidosis * Hypernatremia Plan: * add 1/2 ns today * stopped baclofen * cr 1.3 stable today * Na noted, * free water replacement * Keep MAP>65 * Management of COVID 19 PNA to primary team/ID * Dose medications for renal function * AM labs * Renal diet * follow up lytes prn * Prognosis guarded Subjective Date of service: 06/01/21 Principal diagnosis: Pneumonia Interval history: Nursing, interdisciplinary and consult notes were reviewed Vitals, input and output, medications and labs were reviewed Objective exam deferred for preservation of PPE, primary team exam noted Objective - Vital Signs Vital signs: Vital Signs - 12hr 06/06/21 06/06/21 06/06/21 04:23 08:00 10:00 Temperature 98.4 F Pulse Rate 68 Respiratory 18 Rate Blood Pressure 106/56 O2 Sat by Pulse 99 98 100 Oximetry 06/06/21 06/06/21 11:00 11:05 Temperature 97.9 F Pulse Rate 60 Respiratory 26 H Rate Blood Pressure 111/54 O2 Sat by Pulse 99 97 Oximetry - Lab 06/04/21 07:04 06/06/21 04:35 Most recent lab results ABG pH 7.456 (7.320-7.450) H 06/05/21 20:06 ABG pCO2 29.0 mm Hg 05/30/21 22:32 ABG pO2 141.8 mm Hg (80.0-90.0) H 05/30/21 22:32 ABG HCO3 19.9 mmol/L (20.0-26.0) L 05/30/21 22:32 ABG O2 Saturation 98.2 (0-100) 06/05/21 20:06 Calcium 7.6 mg/dL (8.4-10.2) L 06/06/21 04:35 Phosphorus 2.20 mg/dL (2.5-4.5) L D 06/03/21 05:57 Magnesium 2.30 mg/dL (1.7-2.3) 06/06/21 04:35 Medications & Allergies - Medications Allergies/Adverse Reactions: Allergies No Known Allergies Allergy (Unverified 02/12/17 15:47) Home Medications: Home Medications Medication Instructions Recorded Confirmed Last Taken Type No Known Home Medications [No 05/31/21 05/31/21 Unknown History Reported Home Medications] Active Medications: Generic Name Dose Route Start Last Admin Trade Name Freq PRN Reason Stop Dose Admin Acetaminophen 650 mg 05/29/21 07:05 06/03/21 21:32 Acetaminophen 325 Mg Tab PO 650 mg Q6H PRN Administration Pain, Mild (1-3) Acetaminophen 650 mg 06/03/21 08:21 06/03/21 08:42 Acetaminophen 650 Mg Rect Supp MO 650 mg Q4H PRN Administration Pain, Mild (1-3) Albuterol/Ipratropium 1 ampul 06/05/21 12:00 06/06/21 02:41 Ipratropium/Albuterol Sulfate 3 Ml Ampul.Neb IH Not Given QIDRT MIKE Lipase/Protease/Amylase 1 each 06/03/21 12:23 Lipase 10,500/Protease 25,000/Amylase 43,750 (Units) Dr Cap FEEDTUBE PRN PRN For Clogged Feeding Tube Docusate Sodium 100 mg 06/07/21 10:00 Docusate Sodium 100 Mg Cap PO DAILY [facility] Heparin Sodium (Porcine) 5,000 unit 05/24/21 06:00 06/06/21 05:46 Heparin 5,000 Unit/1 Ml Vial SUB-Q 5,000 unit Q8HR MIKE Administration Piperacillin Sod/Tazobactam Sod 4.5 gm in 100 mls @ 200 mls/hr 06/03/21 21:30 06/06/21 05:45 Zosyn/Ns 4.5gm/100ml IV 200 mls/hr Q8H MIKE Administration Protocol Methylprednisolone Sodium Succinate 60 mg 06/04/21 10:00 06/06/21 10:16 Methylprednisolone Sod Succinate 125 Mg/2 Ml Inj IV 60 mg Q8H MIKE Administration Morphine Sulfate 2 mg 05/23/21 22:01 06/05/21 15:02 Morphine 2 Mg/1 Ml Inj IV 2 mg Q4H PRN Administration Pain, Moderate (4-6) Ondansetron HCl 4 mg 06/04/21 13:41 06/04/21 18:52 Ondansetron 4 Mg/2 Ml Inj IV 4 mg Q4H PRN Administration Nausea And Vomiting Simple Syrup 15 ml 06/03/21 12:23 Simple Syrup 15 Ml FEEDTUBE PRN PRN Hypoglycemia Simple Syrup 30 ml 06/03/21 12:23 Simple Syrup 15 Ml FEEDTUBE PRN PRN Hypoglycemia Sodium Bicarbonate 325 mg 06/03/21 12:23 Sodium Bicarbonate 325 Mg Tab FEEDTUBE PRN PRN For Clogged Feeding Tube Sodium Chloride 10 ml 05/24/21 10:00 06/06/21 10:03 Sodium Chloride 0.9% 10 Ml Flush Syringe IV 10 ml BID MIKE Administration Sodium Chloride 10 ml 05/23/21 22:01 Sodium Chloride 0.9% 10 Ml Flush Syringe IV PRN PRN LINE FLUSH
[2021-06-06] MEDS ORDERED: VANCOMYCIN PHARMACY TO DOSE IV SCH (15:00)
[2021-06-06] MEDS ORDERED: VANCOMYCIN 1,250 MG in SODIUM CHLORIDE 0.9% 250ML 250 ML IV SCH (16:00)
[2021-06-07] MEDS: IPRATROPIUM/ALBUTEROL SULFATE 3 ML AMPUL.NEB IH SCH ×4 (00:14→23:13)
[2021-06-07] MEDS: FREE WATER PO SCH ×7 (00:28→21:00)
[2021-06-07] MEDS: methylPREDNISolone Sod Succinate 125 MG/2 ML INJ IV SCH ×3 (04:24→18:26)
[2021-06-07] MEDS: SODIUM CHLORIDE 0.45% 1000 ML 1,000 ML IV SCH ×2 (04:27→12:40)
[2021-06-07] MEDS: HEPARIN 5,000 UNIT/1 ML VIAL SUB-Q SCH ×3 (05:56→22:00)
--- NOTE | 2021-06-07 08:14 | Progress Note ---
Assessment and Plan Assessment and plan: #Acute hypoxic respiratory failure -weaned to 10L, will maintain SpO2 >90% -VQ scan low probability for PE on admission -continue methylprednisone 60 mg every 8 hours -s/p 1 dose of Lasix -TTE completed, read pending -Pulmonary consulted, recommendations appreciated #Pneumonia -CT abdomen pelvis revealed severe bilateral pneumonia and a cavitary lesion in the left lower lobe -likely secondary to aspiration during ileus -CRP 19.6 and procal 24.30 -continue vancomycin, ciprofloxacin -completed azithromycin and Rocephin in past -ID consulted for recommendations #Ileus-resolved -resolved via CT abd/pelvis -trickle TF, will advance to goal -monitor electrolytes and minimize opiate use -Surgery signed off #Severe sepsis -repeat blood cultures no growth to date -procalcitonin 24.30 -discontinue zosyn, start ciprofloxacin and vancomycin -s/p zosyn, cefepime, vancomycin, Flagyl -likely 2/2 to PNA #Lactic acidosis -Resolved #Acute encephalopathy -Resolved -CT head negative, ammonia 22 #COVID-19 infection -Diagnosed on 05/11 -ID consulted, assistance appreciated -s/p 10 days of steroids, restarted on 06/04 due to worsening Pulmonary status -will taper steroids #Hypernatremia, resolved -likely secondary to poor oral intake #ANGELES, resolved #Hyperkalemia, resolved #Discharge planning -Patient and family agreed to the home with home health upon discharge -will continue to wean oxygen to at least 4 L/min prior to discharge Disposition Plan: Home with home health versus rehab Total Time Spent with Patient (Minutes): 20 minutes History Interval history: No acute events overnight. Patient alert and oriented. Currently on vapotherm @ 10LPM. No complaints at this time. Hospitalist Physical - Physical exam Narrative exam: GENERAL: Thin male. Lying in bed in no acute distress. HEENT: NC @ 10LPM CHEST/LUNGS: Coarse breath sounds bilaterally. No use of assessory muscles of breathing. HEART/CARDIOVASCULAR: Regular rate and rhythm. No murmur, rubs or gallops appreciated. ABDOMEN: +BS. NT/ND. EXTREMITIES: No cyanosis, clubbing or edema. PSYCH: Cooperative. - Constitutional Vitals: Temp Pulse Resp BP Pulse Ox 98 F 80 16 128/63 98 06/07/21 06:00 06/07/21 06:00 06/07/21 06:00 06/07/21 06:00 06/07/21 06:00 General appearance: Present: no acute distress, cachectic HEART Score - HEART Score EKG: Non-specific Age: 45-65 Risk factors: 1-2 risk factors Troponin: Troponin T < 0.010 ng/mL (0.00-0.029) 05/23/21 18:48 - Critical Actions Critical Actions: 0-3 pts:0.9-1.7%risk of adverse cardiac event.Candidate for discharge Results - Labs CBC & Chem 7: 06/07/21 10:03 06/07/21 07:32 Labs: Laboratory Last Values WBC 9.2 K/mm3 (4.5-11.0) 06/04/21 07:04 RBC 4.13 M/mm3 (3.65-5.03) 06/04/21 07:04 Hgb 11.3 gm/dl (11.8-15.2) L 06/04/21 07:04 Hct 34.9 % (35.5-45.6) L 06/04/21 07:04 MCV 85 fl (84-94) 06/04/21 07:04 MCH 27 pg (28-32) L 06/04/21 07:04 MCHC 32 % (32-34) 06/04/21 07:04 RDW 14.6 % (13.2-15.2) 06/04/21 07:04 Plt Count 152 K/mm3 (140-440) 06/04/21 07:04 Lymph % (Auto) [employer] 06/01/21 07:10 [place] % (Auto) [employer] 06/01/21 07:10 Eos % (Auto) [employer] 06/01/21 07:10 Baso % (Auto) [employer] 06/01/21 07:10 Lymph # (Auto) [employer] 06/01/21 07:10 [place] # (Auto) [employer] 06/01/21 07:10 Eos # (Auto) [employer] 06/01/21 07:10 Baso # (Auto) [employer] 06/01/21 07:10 Add Manual Diff Complete 06/04/21 07:04 Total Counted 100 06/04/21 07:04 Seg Neutrophils % [employer] 06/01/21 07:10 Seg Neuts % (Manual) 88.0 % (40.0-70.0) H 06/03/21 05:57 Band Neutrophils % 1.0 % 06/04/21 07:04 Lymphocytes % (Manual) 5.0 % (13.4-35.0) L 06/04/21 07:04 Reactive Lymphs % (Man) 1.0 % 06/01/21 07:10 Monocytes % (Manual) 3.0 % (0.0-7.3) 06/04/21 07:04 Nucleated RBC % Not Reportable 06/04/21 07:04 Seg Neutrophils # [employer] 06/01/21 07:10 Seg Neutrophils # Man 8.4 K/mm3 (1.8-7.7) H 06/04/21 07:04 Band Neutrophils # 0.1 K/mm3 06/04/21 07:04 Lymphocytes # (Manual) 0.5 K/mm3 (1.2-5.4) L 06/04/21 07:04 Abs React Lymphs (Man) 0.0 K/mm3 06/04/21 07:04 Monocytes # (Manual) 0.3 K/mm3 (0.0-0.8) 06/04/21 07:04 Eosinophils # (Manual) 0.0 K/mm3 (0.0-0.4) 06/04/21 07:04 Basophils # (Manual) 0.0 K/mm3 (0.0-0.1) 06/04/21 07:04 Metamyelocytes # 0.0 K/mm3 06/04/21 07:04 Myelocytes # 0.0 K/mm3 06/04/21 07:04 Promyelocytes # 0.0 K/mm3 06/04/21 07:04 Blast Cells # 0.0 K/mm3 06/04/21 07:04 WBC Morphology Not Reportable 06/04/21 07:04 Hypersegmented Neuts Not Reportable 06/04/21 07:04 Hyposegmented Neuts Not Reportable 06/04/21 07:04 Hypogranular Neuts Not Reportable 06/04/21 07:04 Smudge Cells Not Reportable 06/04/21 07:04 Toxic Granulation Not Reportable 06/04/21 07:04 Toxic Vacuolation Not Reportable 06/04/21 07:04 Dohle Bodies Not Reportable 06/04/21 07:04 Pelger-Huet Anomaly Not Reportable 06/04/21 07:04 Kaci Rods Not Reportable 06/04/21 07:04 Platelet Estimate Consistent w auto 06/04/21 07:04 Clumped Platelets Not Reportable 06/04/21 07:04 Plt Clumps, EDTA Not Reportable 06/04/21 07:04 Large Platelets Not Reportable 06/04/21 07:04 Giant Platelets Not Reportable 06/04/21 07:04 Platelet Satelliting Not Reportable 06/04/21 07:04 Plt Morphology Comment Not Reportable 06/04/21 07:04 RBC Morphology Normal 06/04/21 07:04 Dimorphic RBCs Not Reportable 06/04/21 07:04 Polychromasia Not Reportable 06/04/21 07:04 Hypochromasia Not Reportable 06/04/21 07:04 Poikilocytosis Not Reportable 06/04/21 07:04 Anisocytosis Not Reportable 06/04/21 07:04 Microcytosis Not Reportable 06/04/21 07:04 Macrocytosis Not Reportable 06/04/21 07:04 Spherocytes Not Reportable 06/04/21 07:04 Pappenheimer Bodies Not Reportable 06/04/21 07:04 Sickle Cells Not Reportable 06/04/21 07:04 Target Cells Not Reportable 06/04/21 07:04 Tear Drop Cells Not Reportable 06/04/21 07:04 Ovalocytes Not Reportable 06/04/21 07:04 Helmet Cells Not Reportable 06/04/21 07:04 Weems-Dupree Bodies Not Reportable 06/04/21 07:04 [place] Rings Not Reportable 06/04/21 07:04 [place] Cells Not Reportable 06/04/21 07:04 Bite Cells Not Reportable 06/04/21 07:04 Crenated Cell Not Reportable 06/04/21 07:04 Elliptocytes Not Reportable 06/04/21 07:04 Acanthocytes (Spur) Not Reportable 06/04/21 07:04 Rouleaux Not Reportable 06/04/21 07:04 Hemoglobin C Crystals Not Reportable 06/04/21 07:04 Schistocytes Not Reportable 06/04/21 07:04 Malaria parasites Not Reportable 06/04/21 07:04 Dick Bodies Not Reportable 06/04/21 07:04 Hem Pathologist Commnt No 06/04/21 07:04 D-Dimer 3584.01 ng/mlDDU (0-234) H 05/27/21 08:09 ABG pH 7.456 (7.320-7.450) H 06/05/21 20:06 POC ABG pCO2 43.4 mmHg (32.0-48.0) 06/05/21 20:06 ABG pCO2 29.0 mm Hg 05/30/21 22:32 POC ABG pO2 102.1 mmHg (83-108) 06/05/21 20:06 ABG pO2 141.8 mm Hg (80.0-90.0) H 05/30/21 22:32 POC ABG HCO3 29.9 06/05/21 20:06 ABG HCO3 19.9 mmol/L (20.0-26.0) L 05/30/21 22:32 ABG O2 Saturation 98.2 (0-100) 06/05/21 20:06 ABG O2 Content 19.9 (0.0-44) 05/30/21 22:32 POC ABG Base Excess 5.4 06/05/21 20:06 ABG Base Excess -2.7 mmol/L (-2.0-3.0) L 05/30/21 22:32 ABG Hemoglobin 10.3 (12.0-17.5) L 06/05/21 20:06 ABG Oxyhemoglobin 97.6 (94-98) 06/05/21 20:06 ABG Carboxyhemoglobin 1.1 % (0.0-5.0) 05/30/21 22:32 ABG Methemoglobin 0.3 (0.0-1.5) 06/05/21 20:06 ABG Sodium 138.7 mmol/L (136.0-145.0) 06/05/21 20:06 ABG Potassium 3.1 mmol/L (3.40-4.50) L 06/05/21 20:06 ABG Chloride 103.0 mmol/L (98-107) 06/05/21 20:06 ABG Glucose 125 mg/dL (65-95) H 06/05/21 20:06 VBG pH 7.254 (7.320-7.420) L 05/24/21 02:09 Oxyhemoglobin 97.1 % (95.0-99.0) 05/30/21 22:32 Carboxyhemoglobin 0.3 (0.5-1.5) L 06/05/21 20:06 FiO2 70 % 05/30/21 22:32 FiO2 % 65.0 06/05/21 20:06 Sodium 145 mmol/L (137-145) 06/06/21 04:35 Potassium 3.6 mmol/L (3.6-5.0) 06/06/21 04:35 Chloride 103.1 mmol/L (98-107) 06/06/21 04:35 Carbon Dioxide 30 mmol/L (22-30) 06/06/21 04:35 Anion Gap 16 mmol/L 06/06/21 04:35 BUN 43 mg/dL (9-20) H 06/06/21 04:35 Creatinine 1.3 mg/dL (0.8-1.3) 06/06/21 04:35 Estimated GFR > 60 ml/min 06/06/21 04:35 BUN/Creatinine Ratio 33 % 06/06/21 04:35 Glucose 100 mg/dL (75-100) 06/06/21 04:35 POC Glucose 130 mg/dL (70-105) H 06/07/21 05:54 Lactic Acid 1.20 mmol/L (0.7-2.0) 06/06/21 00:04 Calcium 7.6 mg/dL (8.4-10.2) L 06/06/21 04:35 Phosphorus 2.20 mg/dL (2.5-4.5) L D 06/03/21 05:57 Magnesium 2.30 mg/dL (1.7-2.3) 06/06/21 04:35 Ferritin 2742.0 ng/mL (30.0-300.0) H 05/27/21 08:09 Total Bilirubin 0.90 mg/dL (0.1-1.2) 05/23/21 18:48 AST 27 units/L (5-40) 05/23/21 18:48 ALT 7 units/L (7-56) 05/23/21 18:48 Alkaline Phosphatase 69 units/L (35-129) 05/23/21 18:48 Ammonia 22.0 umol/L (25-60) L 05/23/21 18:48 Lactate Dehydrogenase 642 units/L (91-180) H 05/27/21 08:09 Troponin T < 0.010 ng/mL (0.00-0.029) 05/23/21 18:48 C-Reactive Protein 19.60 mg/dL (0.00-1.30) H 06/06/21 00:04 Total Protein 9.4 g/dL (6.3-8.2) H 05/23/21 18:48 Albumin 3.0 g/dL (3.9-5) L 05/23/21 18:48 Albumin/Globulin Ratio 0.5 % 05/23/21 18:48 Procalcitonin 24.30 ng/mL (<0.15) 06/06/21 00:04 TSH 1.150 mlU/mL (0.270-4.200) 05/23/21 18:48 Arterial Blood Glucose 125 mg/dL (65-95) H 06/05/21 20:06 Arterial Blood Ionized Calcium 4.5 mg/dL (4.6-5.3) L 05/29/21 17:58 Urine Color Eli (Yellow) 05/30/21 01:00 Urine Turbidity Cloudy (Clear) 05/30/21 01:00 Urine pH 5.0 (5.0-7.0) 05/30/21 01:00 Ur Specific [place] 1.019 (1.003-1.030) 05/30/21 01:00 Urine Protein 100 mg/dl mg/dL (Negative) 05/30/21 01:00 Urine Glucose (UA) Neg mg/dL (Negative) 05/30/21 01:00 Urine Ketones Neg mg/dL (Negative) 05/30/21 01:00 Urine Blood Mod (Negative) 05/30/21 01:00 Urine Nitrite Neg (Negative) 05/30/21 01:00 Urine Bilirubin Neg (Negative) 05/30/21 01:00 Urine Urobilinogen 4.0 mg/dL (<2.0) 05/30/21 01:00 Ur Leukocyte Esterase Neg (Negative) 05/30/21 01:00 Urine WBC (Auto) 12.0 /HPF (0.0-6.0) H 05/30/21 01:00 Urine RBC (Auto) 21.0 /HPF (0.0-6.0) 05/30/21 01:00 U Epithel Cells (Auto) 2.0 /HPF (0-13.0) 05/30/21 01:00 Uric Acid Crystals Few 05/30/21 01:00 Urine Mucus Few /HPF 05/30/21 01:00 Urine Yeast (Budding) 2+ /HPF 05/30/21 01:00 Vancomycin Trough 12.2 ug/mL (5.0-20.0) 06/02/21 13:40 Plasma/Serum Alcohol < 0.01 % (0-0.07) 05/23/21 18:48 Proteinase 3 (PR3) Ab <1.0 AI (<1.0) 05/24/21 20:57 Myeloperoxidase Ab <1.0 AI (<1.0) 05/24/21 20:57 Complement C3 108 mg/dL (82-185) 05/24/21 20:57 Complement C4 29 mg/dL (15-53) 05/24/21 20:57 Coronavirus (PCR) Negative (Negative) 05/26/21 08:41 Blood Type A POSITIVE 05/29/21 08:15 Antibody Screen Negative 05/29/21 08:15 Microbiology: Microbiology 06/03/21 21:28 Peripheral/Venous Blood Culture - Preliminary NO GROWTH AFTER 72 HOURS 06/03/21 21:28 Peripheral/Venous Blood Culture - Preliminary NO GROWTH AFTER 72 HOURS Heart/IV: Voiding Method Condom Catheter Active Medications - Current Medications Current Medications: Generic Name Dose Route Start Last Admin Trade Name Freq PRN Reason Stop Dose Admin Acetaminophen 650 mg 05/29/21 07:05 06/03/21 21:32 Acetaminophen 325 Mg Tab PO 650 mg Q6H PRN Administration Pain, Mild (1-3) Acetaminophen 650 mg 06/03/21 08:21 06/03/21 08:42 Acetaminophen 650 Mg Rect Supp DC 650 mg Q4H PRN Administration Pain, Mild (1-3) Albuterol/Ipratropium 1 ampul 06/05/21 12:00 06/07/21 00:14 Ipratropium/Albuterol Sulfate 3 Ml Ampul.Neb IH Not Given QIDRT MIKE Lipase/Protease/Amylase 1 each 06/03/21 12:23 Lipase 10,500/Protease 25,000/Amylase 43,750 (Units) Dr Rodney FEEDTUBE PRN PRN For Clogged Feeding Tube Docusate Sodium 100 mg 06/07/21 10:00 Docusate Sodium 100 Mg Cap PO DAILY MIKE Heparin Sodium (Porcine) 5,000 unit 05/24/21 06:00 06/07/21 05:56 Heparin 5,000 Unit/1 Ml Vial SUB-Q 5,000 unit Q8HR MIKE Administration Sodium Chloride 1,000 mls @ 100 mls/hr 06/06/21 14:00 06/07/21 04:27 Nacl 0.45% 1000 Ml IV 100 mls/hr DIRECT MIKE Administration Levofloxacin/Dextrose 750 mg in 150 mls @ 100 mls/hr 06/06/21 16:00 06/06/21 15:09 Levaquin 750mg/150ml IV 100 mls/hr Q24H MIKE Administration Protocol Vancomycin HCl 1,250 mg/ 275 mls @ 166.667 mls/hr 06/07/21 12:00 Sodium Chloride IV Q18H MIKE Methylprednisolone Sodium Succinate 60 mg 06/04/21 10:00 06/07/21 04:24 Methylprednisolone Sod Succinate 125 Mg/2 Ml Inj IV 60 mg Q8H MIKE Administration Morphine Sulfate 2 mg 05/23/21 22:01 06/05/21 15:02 Morphine 2 Mg/1 Ml Inj IV 2 mg Q4H PRN Administration Pain, Moderate (4-6) Ondansetron HCl 4 mg 06/04/21 13:41 06/04/21 18:52 Ondansetron 4 Mg/2 Ml Inj IV 4 mg Q4H PRN Administration Nausea And Vomiting Simple Syrup 15 ml 06/03/21 12:23 Simple Syrup 15 Ml FEEDTUBE PRN PRN Hypoglycemia Simple Syrup 30 ml 06/03/21 12:23 Simple Syrup 15 Ml FEEDTUBE PRN PRN Hypoglycemia Sodium Bicarbonate 325 mg 06/03/21 12:23 Sodium Bicarbonate 325 Mg Tab FEEDTUBE PRN PRN For Clogged Feeding Tube Sodium Chloride 10 ml 05/24/21 10:00 06/06/21 22:20 Sodium Chloride 0.9% 10 Ml Flush Syringe IV 10 ml BID MIKE Administration Sodium Chloride 10 ml 05/23/21 22:01 Sodium Chloride 0.9% 10 Ml Flush Syringe IV PRN PRN LINE FLUSH Nutrition/Malnutrition Assess - Dietary Evaluation Nutrition/Malnutrition Findings: Nutrition Notes Start: 05/25/21 09:33 Freq: Status: Active Protocol: Document 06/06/21 11:43 ROJAS (Rec: 06/06/21 11:49 ROJAS [id number]) Nutrition Notes Initial or Follow up Reassessment Current Diagnosis Sepsis Other Pertinent Diagnosis COVID-19 (+), pneu, ?ileus Current Diet NPO Labs/Tests BUN 43 Pertinent Medications Solumedrol Height 5 ft 11 in Weight 77.11 kg [place] Body Weight (kg) 78.18 BMI 23.7 Weight Status Appropriate Subjective/Other Information Pt with multiple episodes of vomiting on 06/04; TF stopped, DHT removed. Abdominal X-ray revealed dilated small bowel loops (possible SBO). NGT placed. Percent of energy/protein needs met: 0%/0% Burn Absent Trauma Absent GI Symptoms Vomiting,Constipation #1 Nutrition Diagnosis Inadequate oral intake Diagnosis Progress(for reassessment Continues documentation) Is patient on ventilator? No Is Patient Ambulatory and/or Out of Bed No REE-([place]-St. Jeor-confined to bed) 1964.124 Calculation Used for Recommendations [place]-St Jeor Additional Notes Pro needs 1-1.2g/k-93g/ day Fluid needs 1ml/kcal Nutrition Intervention Nutrition Support: Resume EN support when medically feasible Goal #1 Resume EN support to meet nutrient needs Follow-Up By: 06/09/21 Additional Comments F/U: TF restart
[2021-06-07 08:17] LABS: BUN/Creatinine Ratio 40; Blood Urea Nitrogen 36 mg/dL (9-20); Hemolysis Index 36
[2021-06-07] MEDS: DOCUSATE SODIUM 100 MG CAP PO SCH (09:52)
[2021-06-07 10:17] LABS: Hematocrit 30.3 % (35.5-45.6); Hemoglobin 9.8 gm/dl (11.8-15.2); Mean Corpuscular HGB Conc 32 % (32-34); Mean Corpuscular Volume 83 fl (84-94); Platelet Count 157 K/mm3 (140-440); Red Blood Count 3.63 M/mm3 (3.65-5.03); Red Cell Distribution Width 14.9 % (13.2-15.2)
[2021-06-07] MEDS: ONDANSETRON 4 MG/2 ML INJ IV PRN (12:15)
--- NOTE | 2021-06-07 12:36 | Progress Note ---
Assessment and Plan 55-year-old -[place] male who was diagnosed with COVID-19 on May 11, 2021 presents to the emergency room today with complaints of shortness of breath and decreased oral intake over the past 10 to 12 days. Patient also has known history of CVA about 20 years ago and it is unknown whether patient had any residual deficits. Patient has not been able to communicate well and most of the history was gotten from the ER staff. Initial oxygen saturation according to EMS was about 70% and patient was placed on nonrebreather. He was eventually placed on oxygen by nasal cannula upon arrival in the emergency room with significant improvement in his oxygen saturation. Work-up in the emergency room reveals a D-dimer greater than 10,000, sodium 151 potassium of 5.1, BUN of 180) and creatinine of 4.3. Patient had a lactic acid of 2.3. WBC was 11.8. CT scan of the head shows no acute abnormality. Chest x-ray shows mild patchy multifocal airspace disease throughout the lungs. No pleural effusion. VQ scan done showed low probability for pulmonary embolism. Patient being admitted with pneumonia possibly secondary to COVID-19, hypoxia and encephalopathy. Patients COVID 19 PCR reported negative. Patient presently sleeping on Vapotherm, FIO2 100% and O2 saturation running 94%. Not responding to verbal stimuli. BIPAP 20/10, rate 14, FIO2 60% stand by in the room. Patient afebrile. No Leukocytosis. Blood pressure 132/63, Pulse 86. Chest xray done 06/03/21 reported Diffuse hazy airspace opacities bilaterally, mildly worsened compared to reference exam. No pneumothorax. Patient presently on Levaquin, Vancomycin, I/V solumedrol and S/C Heparin. Recommend albuterol/atrovent aerosol treatments. I spent critical care time of 35 minutes, reviewing the chart, examine the patient, review lab results, Talking to the nursing staff, respiratory therapy and work out plan of treatment in this critically ill bilateral pneumonia patient with respiratory failure . - Patient Problems (1) Acute respiratory failure with hypoxia Current Visit: Yes Status: Acute Plan to address problem: Patient presently on Vapotherm 100%. BIPAP 20/10, rate 14, FIO2 60% Stand bt in the room. Continue I/V solumedrol. Continue S/C heparin. Recommend GI prophylaxis. Recommend albuterol/atrovent aerosol treatments. (2) Bilateral pneumonia Current Visit: Yes Status: Acute Plan to address problem: Patient is on Levaquin and vancomycin. (3) Suspected 2019 novel coronavirus infection Current Visit: Yes Status: Acute Plan to address problem: Patient darby virus PCR is negative. Subjective Date of service: 06/07/21 Principal diagnosis: Acute hypoxemic resp failure; Pneumonia; PUI COVID-19 infection Interval history: 55-year-old -Burm[place] male who was diagnosed with COVID-19 on May 11, 2021 presents to the emergency room today with complaints of shortness of breath and decreased oral intake over the past 10 to 12 days. Patient also has known history of CVA about 20 years ago and it is unknown whether patient had any residual deficits. Patient has not been able to communicate well and most of the history was gotten from the ER staff. Initial oxygen saturation according to EMS was about 70% and patient was placed on nonrebreather. He was eventually placed on oxygen by nasal cannula upon arrival in the emergency room with significant improvement in his oxygen saturation. Work-up in the emergency room reveals a D-dimer greater than 10,000, sodium 151 potassium of 5.1, BUN of 180) and creatinine of 4.3. Patient had a lactic acid of 2.3. WBC was 11.8. CT scan of the head shows no acute abnormality. Chest x-ray shows mild patchy multifocal airspace disease throughout the lungs. No pleural effusion. VQ scan done showed low probability for pulmonary embolism. Patient being admitted with pneumonia possibly secondary to COVID-19, hypoxia and encephalopathy. Patients COVID 19 PCR reported negative. Patient presently sleeping on Vapotherm, FIO2 100% and O2 saturation running 94%. Not responding to verbal stimuli. BIPAP 20/10, rate 14, FIO2 60% stand by in the room. Patient afebrile. No Leukocytosis. Blood pressure 132/63, Pulse 86. Chest xray done 06/03/21 reported Diffuse hazy airspace opacities bilaterally, mildly worsened compared to reference exam. No pneumothorax. Patient presently on Levaquin, Vancomycin, I/V solumedrol and S/C Heparin. Recommend albuterol/atrovent aerosol treatments. Objective Vital Signs - 12hr 06/07/21 06/07/21 06/07/21 06:00 12:07 12:10 Temperature 98 F Pulse Rate 80 Respiratory 16 Rate Blood Pressure 128/63 [Right] O2 Sat by Pulse 98 94 94 Oximetry Constitutional: no acute distress, asleep, other (middle aged male with mildly increased respiratory effort at rest) Eyes: non-icteric ENT: other (BIPAP FFM) Neck: supple, no JVD Effort: mildly labored Ascultation: Bilateral: diminished breath sounds, rhonchi Percussion: Bilateral: not dull Cardiovascular: regular rate and rhythm Gastrointestinal: hypoactive bowel sounds, soft, non-tender, other (distended but very soft) Integumentary: normal Extremities: no cyanosis, no edema, pulses normal, no ischemia or petechiae Neurologic: pupils equal and round, CN II-XII normal, other (somnolent) Psychiatric: depressed CBC and BMP: 06/07/21 10:03 06/07/21 07:32 ABG, PT/INR, D-dimer: ABG ABG pH 7.456 (7.320-7.450) H 06/05/21 20:06 POC ABG pCO2 43.4 mmHg (32.0-48.0) 06/05/21 20:06 ABG pCO2 29.0 mm Hg 05/30/21 22:32 POC ABG pO2 102.1 mmHg (83-108) 06/05/21 20:06 ABG pO2 141.8 mm Hg (80.0-90.0) H 05/30/21 22:32 POC ABG HCO3 29.9 06/05/21 20:06 ABG O2 Saturation 98.2 (0-100) 06/05/21 20:06 PT/INR, D-dimer D-Dimer 3584.01 ng/mlDDU (0-234) H 05/27/21 08:09 Abnormal lab findings: Abnormal Labs 05/23/21 05/23/21 05/23/21 18:48 18:48 18:48 WBC 11.8 H RBC 5.18 H Hgb Hct MCV MCH MCHC RDW Plt Count Seg Neuts % (Manual) 84.0 H Lymphocytes % (Manual) Nucleated RBC % Seg Neutrophils # Man 9.9 H Lymphocytes # (Manual) D-Dimer > 30800 H ABG pH POC ABG pCO2 POC ABG pO2 ABG pO2 ABG HCO3 ABG Base Excess ABG Hemoglobin ABG Oxyhemoglobin ABG Sodium ABG Potassium ABG Chloride ABG Glucose VBG pH Carboxyhemoglobin Sodium Potassium Chloride Carbon Dioxide BUN Creatinine Glucose POC Glucose Lactic Acid 2.30 H* Calcium Phosphorus Magnesium Ferritin Ammonia Lactate Dehydrogenase C-Reactive Protein Total Protein Albumin Arterial Blood Glucose Arterial Blood Ionized Calcium Urine WBC (Auto) Vancomycin Trough 05/23/21 05/23/21 05/23/21 18:48 18:48 18:48 WBC RBC Hgb Hct MCV MCH MCHC RDW Plt Count Seg Neuts % (Manual) Lymphocytes % (Manual) Nucleated RBC % Seg Neutrophils # Man Lymphocytes # (Manual) D-Dimer ABG pH POC ABG pCO2 POC ABG pO2 ABG pO2 ABG HCO3 ABG Base Excess ABG Hemoglobin ABG Oxyhemoglobin ABG Sodium ABG Potassium ABG Chloride ABG Glucose VBG pH Carboxyhemoglobin Sodium 151 H Potassium 5.1 H Chloride 113.2 H Carbon Dioxide 17 L BUN 180 H Creatinine 4.3 H Glucose 114 H POC Glucose Lactic Acid Calcium Phosphorus Magnesium Ferritin 2000.0 H Ammonia 22.0 L Lactate Dehydrogenase 577 H C-Reactive Protein 8.80 H Total Protein 9.4 H Albumin 3.0 L Arterial Blood Glucose Arterial Blood Ionized Calcium Urine WBC (Auto) Vancomycin Trough 05/23/21 05/24/21 05/24/21 21:06 02:09 02:09 WBC RBC Hgb Hct MCV MCH MCHC RDW Plt Count Seg Neuts % (Manual) Lymphocytes % (Manual) Nucleated RBC % Seg Neutrophils # Man Lymphocytes # (Manual) D-Dimer ABG pH POC ABG pCO2 POC ABG pO2 ABG pO2 ABG HCO3 ABG Base Excess ABG Hemoglobin ABG Oxyhemoglobin ABG Sodium ABG Potassium ABG Chloride ABG Glucose VBG pH 7.254 L Carboxyhemoglobin Sodium Potassium Chloride Carbon Dioxide BUN Creatinine Glucose POC Glucose Lactic Acid 2.10 H* 2.30 H* Calcium Phosphorus Magnesium Ferritin Ammonia Lactate Dehydrogenase C-Reactive Protein Total Protein Albumin Arterial Blood Glucose Arterial Blood Ionized Calcium Urine WBC (Auto) Vancomycin Trough 05/24/21 05/24/21 05/24/21 13:11 17:34 18:12 WBC RBC Hgb Hct MCV MCH MCHC RDW Plt Count Seg Neuts % (Manual) Lymphocytes % (Manual) Nucleated RBC % Seg Neutrophils # Man Lymphocytes # (Manual) D-Dimer ABG pH POC ABG pCO2 POC ABG pO2 ABG pO2 ABG HCO3 ABG Base Excess ABG Hemoglobin ABG Oxyhemoglobin ABG Sodium ABG Potassium ABG Chloride ABG Glucose VBG pH Carboxyhemoglobin Sodium 155 H Potassium 6.9 H* D 5.7 H Chloride 121.9 H Carbon Dioxide 20 L BUN 139 H Creatinine 2.7 H Glucose 139 H POC Glucose 153 H Lactic Acid Calcium Phosphorus Magnesium Ferritin Ammonia Lactate Dehydrogenase C-Reactive Protein Total Protein Albumin Arterial Blood Glucose Arterial Blood Ionized Calcium Urine WBC (Auto) Vancomycin Trough 05/25/21 05/25/21 05/26/21 11:33 11:33 03:15 WBC 13.8 H RBC 5.06 H Hgb Hct MCV MCH MCHC RDW Plt Count Seg Neuts % (Manual) Lymphocytes % (Manual) Nucleated RBC % Seg Neutrophils # Man Lymphocytes # (Manual) D-Dimer ABG pH POC ABG pCO2 POC ABG pO2 ABG pO2 ABG HCO3 ABG Base Excess ABG Hemoglobin ABG Oxyhemoglobin ABG Sodium ABG Potassium ABG Chloride ABG Glucose VBG pH Carboxyhemoglobin Sodium 164 H* D 166 H* Potassium 5.4 H 5.5 H Chloride 131.3 H 129.2 H Carbon Dioxide BUN 109 H 102 H Creatinine 1.9 H 1.8 H Glucose 117 H 113 H POC Glucose Lactic Acid Calcium Phosphorus Magnesium Ferritin Ammonia Lactate Dehydrogenase 711 H C-Reactive Protein 7.90 H Total Protein Albumin Arterial Blood Glucose Arterial Blood Ionized Calcium Urine WBC (Auto) Vancomycin Trough 05/26/21 05/26/21 05/26/21 03:15 03:15 03:15 WBC 13.1 H RBC 5.43 H Hgb 15.3 H Hct 48.5 H MCV MCH MCHC RDW 15.4 H Plt Count Seg Neuts % (Manual) Lymphocytes % (Manual) Nucleated RBC % Seg Neutrophils # Man Lymphocytes # (Manual) D-Dimer 6229.14 H ABG pH POC ABG pCO2 POC ABG pO2 ABG pO2 ABG HCO3 ABG Base Excess ABG Hemoglobin ABG Oxyhemoglobin ABG Sodium ABG Potassium ABG Chloride ABG Glucose VBG pH Carboxyhemoglobin Sodium Potassium Chloride Carbon Dioxide BUN Creatinine Glucose POC Glucose Lactic Acid Calcium Phosphorus Magnesium Ferritin 2991.0 H Ammonia Lactate Dehydrogenase C-Reactive Protein Total Protein Albumin Arterial Blood Glucose Arterial Blood Ionized Calcium Urine WBC (Auto) Vancomycin Trough 05/27/21 05/27/21 05/27/21 08:09 08:09 08:09 WBC 12.4 H RBC 5.27 H Hgb Hct 46.6 H MCV MCH MCHC 31 L RDW 15.7 H Plt Count Seg Neuts % (Manual) Lymphocytes % (Manual) Nucleated RBC % Seg Neutrophils # Man Lymphocytes # (Manual) D-Dimer 3584.01 H ABG pH POC ABG pCO2 POC ABG pO2 ABG pO2 ABG HCO3 ABG Base Excess ABG Hemoglobin ABG Oxyhemoglobin ABG Sodium ABG Potassium ABG Chloride ABG Glucose VBG pH Carboxyhemoglobin Sodium 174 H* Potassium Chloride 136.9 H Carbon Dioxide BUN 90 H Creatinine 1.8 H Glucose POC Glucose Lactic Acid Calcium Phosphorus Magnesium Ferritin Ammonia Lactate Dehydrogenase 642 H C-Reactive Protein 5.20 H Total Protein Albumin Arterial Blood Glucose Arterial Blood Ionized Calcium Urine WBC (Auto) Vancomycin Trough 05/27/21 05/28/21 05/28/21 08:09 07:31 07:31 WBC RBC Hgb Hct MCV MCH 27 L MCHC 31 L RDW Plt Count Seg Neuts % (Manual) 88.0 H Lymphocytes % (Manual) 11.0 L Nucleated RBC % Seg Neutrophils # Man 8.3 H Lymphocytes # (Manual) 1.0 L D-Dimer ABG pH POC ABG pCO2 POC ABG pO2 ABG pO2 ABG HCO3 ABG Base Excess ABG Hemoglobin ABG Oxyhemoglobin ABG Sodium ABG Potassium ABG Chloride ABG Glucose VBG pH Carboxyhemoglobin Sodium 162 H* D Potassium Chloride 125.8 H Carbon Dioxide BUN 72 H Creatinine 1.6 H Glucose 131 H POC Glucose Lactic Acid Calcium Phosphorus Magnesium 3.00 H Ferritin 2742.0 H Ammonia Lactate Dehydrogenase C-Reactive Protein Total Protein Albumin Arterial Blood Glucose Arterial Blood Ionized Calcium Urine WBC (Auto) Vancomycin Trough 05/29/21 05/29/21 05/29/21 06:40 06:40 17:58 WBC 14.1 H RBC Hgb Hct MCV MCH 27 L MCHC 31 L RDW Plt Count Seg Neuts % (Manual) 85.0 H Lymphocytes % (Manual) 9.0 L Nucleated RBC % 1.0 H Seg Neutrophils # Man 12.0 H Lymphocytes # (Manual) D-Dimer ABG pH 7.505 H POC ABG pCO2 30.3 L POC ABG pO2 128.1 H ABG pO2 ABG HCO3 ABG Base Excess ABG Hemoglobin 11.9 L ABG Oxyhemoglobin ABG Sodium ABG Potassium ABG Chloride 113.0 H ABG Glucose 110 H VBG pH Carboxyhemoglobin Sodium 148 H D Potassium Chloride 111.3 H Carbon Dioxide 20 L BUN 45 H Creatinine Glucose POC Glucose Lactic Acid Calcium Phosphorus 2.10 L D Magnesium Ferritin Ammonia Lactate Dehydrogenase C-Reactive Protein Total Protein Albumin Arterial Blood Glucose 110 H Arterial Blood Ionized Calcium 4.5 L Urine WBC (Auto) Vancomycin Trough 05/30/21 05/30/21 05/30/21 01:00 06:06 13:48 WBC RBC Hgb Hct MCV MCH MCHC RDW Plt Count Seg Neuts % (Manual) Lymphocytes % (Manual) Nucleated RBC % Seg Neutrophils # Man Lymphocytes # (Manual) D-Dimer ABG pH POC ABG pCO2 POC ABG pO2 ABG pO2 90.9 H ABG HCO3 ABG Base Excess ABG Hemoglobin 11.8 L ABG Oxyhemoglobin ABG Sodium ABG Potassium ABG Chloride ABG Glucose VBG pH Carboxyhemoglobin Sodium 150 H Potassium Chloride 117.6 H Carbon Dioxide BUN 40 H Creatinine Glucose POC Glucose Lactic Acid Calcium 8.3 L Phosphorus Magnesium Ferritin Ammonia Lactate Dehydrogenase C-Reactive Protein Total Protein Albumin Arterial Blood Glucose Arterial Blood Ionized Calcium Urine WBC (Auto) 12.0 H Vancomycin Trough 05/30/21 05/31/21 05/31/21 22:32 02:22 02:22 WBC RBC Hgb 11.2 L Hct 34.8 L MCV MCH MCHC RDW Plt Count 127 L Seg Neuts % (Manual) 97.0 H Lymphocytes % (Manual) Nucleated RBC % Seg Neutrophils # Man 10.5 H Lymphocytes # (Manual) 0.0 L D-Dimer ABG pH 7.454 H POC ABG pCO2 POC ABG pO2 ABG pO2 141.8 H ABG HCO3 19.9 L ABG Base Excess -2.7 L ABG Hemoglobin ABG Oxyhemoglobin ABG Sodium ABG Potassium ABG Chloride ABG Glucose VBG pH Carboxyhemoglobin Sodium 152 H Potassium Chloride 118.9 H Carbon Dioxide 19 L BUN 48 H Creatinine 1.5 H Glucose 101 H POC Glucose Lactic Acid Calcium 8.3 L Phosphorus Magnesium Ferritin Ammonia Lactate Dehydrogenase C-Reactive Protein Total Protein Albumin Arterial Blood Glucose Arterial Blood Ionized Calcium Urine WBC (Auto) Vancomycin Trough 05/31/21 05/31/21 06/01/21 11:42 21:28 07:10 WBC RBC Hgb Hct MCV MCH MCHC RDW Plt Count Seg Neuts % (Manual) Lymphocytes % (Manual) Nucleated RBC % Seg Neutrophils # Man Lymphocytes # (Manual) D-Dimer ABG pH POC ABG pCO2 POC ABG pO2 ABG pO2 ABG HCO3 ABG Base Excess ABG Hemoglobin ABG Oxyhemoglobin ABG Sodium ABG Potassium ABG Chloride ABG Glucose VBG pH Carboxyhemoglobin Sodium 150 H Potassium Chloride 115.7 H Carbon Dioxide BUN 47 H Creatinine Glucose 115 H POC Glucose 161 H Lactic Acid Calcium Phosphorus Magnesium 2.50 H Ferritin Ammonia Lactate Dehydrogenase C-Reactive Protein Total Protein Albumin Arterial Blood Glucose Arterial Blood Ionized Calcium Urine WBC (Auto) Vancomycin Trough 20.2 H 06/01/21 06/01/21 06/01/21 07:10 07:54 10:39 WBC RBC Hgb 10.7 L Hct 33.5 L MCV MCH MCHC RDW Plt Count Seg Neuts % (Manual) 92.0 H Lymphocytes % (Manual) 4.0 L Nucleated RBC % Seg Neutrophils # Man Lymphocytes # (Manual) 0.3 L D-Dimer ABG pH POC ABG pCO2 POC ABG pO2 ABG pO2 ABG HCO3 ABG Base Excess ABG Hemoglobin ABG Oxyhemoglobin ABG Sodium ABG Potassium ABG Chloride ABG Glucose VBG pH Carboxyhemoglobin Sodium 152 H Potassium Chloride 117.6 H Carbon Dioxide BUN 50 H Creatinine Glucose 140 H POC Glucose 127 H Lactic Acid Calcium 8.3 L Phosphorus Magnesium Ferritin Ammonia Lactate Dehydrogenase C-Reactive Protein Total Protein Albumin Arterial Blood Glucose Arterial Blood Ionized Calcium Urine WBC (Auto) Vancomycin Trough 06/01/21 06/01/21 06/01/21 11:11 16:16 21:45 WBC RBC Hgb Hct MCV MCH MCHC RDW Plt Count Seg Neuts % (Manual) Lymphocytes % (Manual) Nucleated RBC % Seg Neutrophils # Man Lymphocytes # (Manual) D-Dimer ABG pH POC ABG pCO2 POC ABG pO2 ABG pO2 ABG HCO3 ABG Base Excess ABG Hemoglobin ABG Oxyhemoglobin ABG Sodium ABG Potassium ABG Chloride ABG Glucose VBG pH Carboxyhemoglobin Sodium Potassium Chloride Carbon Dioxide BUN Creatinine Glucose POC Glucose 120 H 129 H 150 H Lactic Acid Calcium Phosphorus Magnesium Ferritin Ammonia Lactate Dehydrogenase C-Reactive Protein Total Protein Albumin Arterial Blood Glucose Arterial Blood Ionized Calcium Urine WBC (Auto) Vancomycin Trough 06/02/21 06/02/2121 06:53 06:53 07:52 WBC RBC Hgb 10.4 L Hct 32.4 L MCV MCH 27 L MCHC RDW Plt Count Seg Neuts % (Manual) 93.0 H Lymphocytes % (Manual) 3.0 L Nucleated RBC % Seg Neutrophils # Man Lymphocytes # (Manual) 0.2 L D-Dimer ABG pH POC ABG pCO2 POC ABG pO2 ABG pO2 ABG HCO3 ABG Base Excess ABG Hemoglobin ABG Oxyhemoglobin ABG Sodium ABG Potassium ABG Chloride ABG Glucose VBG pH Carboxyhemoglobin Sodium 149 H Potassium Chloride 112.6 H Carbon Dioxide BUN 54 H Creatinine Glucose 123 H POC Glucose 116 H Lactic Acid Calcium 8.2 L Phosphorus Magnesium Ferritin Ammonia Lactate Dehydrogenase C-Reactive Protein Total Protein Albumin Arterial Blood Glucose Arterial Blood Ionized Calcium Urine WBC (Auto) Vancomycin Trough 06/03/21 06/03/21 06/03/21 05:57 05:57 21:23 WBC RBC Hgb 10.7 L Hct 33.0 L MCV 83 L MCH 27 L MCHC RDW Plt Count Seg Neuts % (Manual) 88.0 H Lymphocytes % (Manual) 8.0 L Nucleated RBC % 2.0 H Seg Neutrophils # Man Lymphocytes # (Manual) 0.6 L D-Dimer ABG pH POC ABG pCO2 POC ABG pO2 39.0 L ABG pO2 ABG HCO3 ABG Base Excess ABG Hemoglobin ABG Oxyhemoglobin 69.1 L ABG Sodium 134.1 L ABG Potassium ABG Chloride ABG Glucose 135 H VBG pH Carboxyhemoglobin Sodium Potassium Chloride Carbon Dioxide BUN 36 H Creatinine Glucose 102 H POC Glucose Lactic Acid Calcium 8.0 L Phosphorus 2.20 L D Magnesium Ferritin Ammonia Lactate Dehydrogenase C-Reactive Protein Total Protein Albumin Arterial Blood Glucose 135 H Arterial Blood Ionized Calcium Urine WBC (Auto) Vancomycin Trough 06/04/21 06/04/21 06/04/21 07:04 07:04 17:42 WBC RBC Hgb 11.3 L Hct 34.9 L MCV MCH 27 L MCHC RDW Plt Count Seg Neuts % (Manual) Lymphocytes % (Manual) 5.0 L Nucleated RBC % Seg Neutrophils # Man 8.4 H Lymphocytes # (Manual) 0.5 L D-Dimer ABG pH POC ABG pCO2 POC ABG pO2 ABG pO2 ABG HCO3 ABG Base Excess ABG Hemoglobin ABG Oxyhemoglobin ABG Sodium ABG Potassium ABG Chloride ABG Glucose VBG pH Carboxyhemoglobin Sodium Potassium Chloride Carbon Dioxide BUN 27 H Creatinine Glucose POC Glucose 136 H Lactic Acid Calcium 8.2 L Phosphorus Magnesium Ferritin Ammonia Lactate Dehydrogenase C-Reactive Protein Total Protein Albumin Arterial Blood Glucose Arterial Blood Ionized Calcium Urine WBC (Auto) Vancomycin Trough 06/05/21 06/05/21 06/05/21 05:10 12:32 15:45 WBC RBC Hgb Hct MCV MCH MCHC RDW Plt Count Seg Neuts % (Manual) Lymphocytes % (Manual) Nucleated RBC % Seg Neutrophils # Man Lymphocytes # (Manual) D-Dimer ABG pH POC ABG pCO2 POC ABG pO2 ABG pO2 ABG HCO3 ABG Base Excess ABG Hemoglobin ABG Oxyhemoglobin ABG Sodium ABG Potassium ABG Chloride ABG Glucose VBG pH Carboxyhemoglobin Sodium Potassium 3.5 L Chloride Carbon Dioxide BUN 35 H Creatinine Glucose 130 H POC Glucose 122 H 119 H Lactic Acid Calcium 8.2 L Phosphorus Magnesium Ferritin Ammonia Lactate Dehydrogenase C-Reactive Protein Total Protein Albumin Arterial Blood Glucose Arterial Blood Ionized Calcium Urine WBC (Auto) Vancomycin Trough 06/05/21 06/05/21 06/06/21 20:06 21:27 00:04 WBC RBC Hgb Hct MCV MCH MCHC RDW Plt Count Seg Neuts % (Manual) Lymphocytes % (Manual) Nucleated RBC % Seg Neutrophils # Man Lymphocytes # (Manual) D-Dimer ABG pH 7.456 H POC ABG pCO2 POC ABG pO2 ABG pO2 ABG HCO3 ABG Base Excess ABG Hemoglobin 10.3 L ABG Oxyhemoglobin ABG Sodium ABG Potassium 3.1 L ABG Chloride ABG Glucose 125 H VBG pH Carboxyhemoglobin 0.3 L Sodium Potassium Chloride Carbon Dioxide BUN Creatinine Glucose POC Glucose 113 H Lactic Acid Calcium Phosphorus Magnesium Ferritin Ammonia Lactate Dehydrogenase C-Reactive Protein 19.60 H Total Protein Albumin Arterial Blood Glucose 125 H Arterial Blood Ionized Calcium Urine WBC (Auto) Vancomycin Trough 06/06/21 06/06/21 06/07/21 04:35 22:37 05:54 WBC RBC Hgb Hct MCV MCH MCHC RDW Plt Count Seg Neuts % (Manual) Lymphocytes % (Manual) Nucleated RBC % Seg Neutrophils # Man Lymphocytes # (Manual) D-Dimer ABG pH POC ABG pCO2 POC ABG pO2 ABG pO2 ABG HCO3 ABG Base Excess ABG Hemoglobin ABG Oxyhemoglobin ABG Sodium ABG Potassium ABG Chloride ABG Glucose VBG pH Carboxyhemoglobin Sodium Potassium Chloride Carbon Dioxide BUN 43 H Creatinine Glucose POC Glucose 114 H 130 H Lactic Acid Calcium 7.6 L Phosphorus Magnesium Ferritin Ammonia Lactate Dehydrogenase C-Reactive Protein Total Protein Albumin Arterial Blood Glucose Arterial Blood Ionized Calcium Urine WBC (Auto) Vancomycin Trough 06/07/21 06/07/21 06/07/21 07:32 10:03 11:36 WBC RBC 3.63 L Hgb 9.8 L Hct 30.3 L MCV 83 L MCH 27 L MCHC RDW Plt Count Seg Neuts % (Manual) Lymphocytes % (Manual) Nucleated RBC % Seg Neutrophils # Man Lymphocytes # (Manual) D-Dimer ABG pH POC ABG pCO2 POC ABG pO2 ABG pO2 ABG HCO3 ABG Base Excess ABG Hemoglobin ABG Oxyhemoglobin ABG Sodium ABG Potassium ABG Chloride ABG Glucose VBG pH Carboxyhemoglobin Sodium Potassium 3.2 L Chloride 108.5 H Carbon Dioxide BUN 36 H Creatinine Glucose 139 H POC Glucose 125 H Lactic Acid Calcium 8.0 L Phosphorus Magnesium Ferritin Ammonia Lactate Dehydrogenase C-Reactive Protein Total Protein Albumin Arterial Blood Glucose Arterial Blood Ionized Calcium Urine WBC (Auto) Vancomycin Trough Allied health notes reviewed: nursing
[2021-06-07] MEDS: VANCOMYCIN 1,250 MG in SODIUM CHLORIDE 0.9% 250ML 250 ML IV SCH (12:51)
--- NOTE | 2021-06-07 14:28 | Progress Note ---
Subjective Date of service: 06/07/21 Principal diagnosis: Acute hypoxemic resp failure; Pneumonia; PUI COVID-19 infection Interval history: Impression: * Acute kidney injury secondary to ATN likely related to COVID 19 * Acute hypoxic respiratory failure secondary to COVID 19 PNA * Azotemia * Hyperkalemia * Metabolic acidosis * Hypernatremia Plan: * add d5 1/2 ns with kcl today * stopped baclofen * cr stable today * Na noted, * free water replacement * Keep MAP>65 * Management of COVID 19 PNA to primary team/ID * Dose medications for renal function * AM labs * Renal diet * follow up lytes prn * Prognosis guarded Subjective Date of service: 06/01/21 Principal diagnosis: Pneumonia Interval history: Nursing, interdisciplinary and consult notes were reviewed Vitals, input and output, medications and labs were reviewed Objective exam deferred for preservation of PPE, primary team exam noted Objective - Vital Signs Vital signs: Vital Signs - 12hr 06/07/21 06/07/21 06/07/21 06:00 11:41 12:07 Temperature 98 F 98.9 F Pulse Rate 80 86 Respiratory 16 18 Rate Blood Pressure 132/63 Blood Pressure 128/63 [Right] O2 Sat by Pulse 98 81 L 94 Oximetry 06/07/21 12:10 Temperature Pulse Rate Respiratory Rate Blood Pressure Blood Pressure [Right] O2 Sat by Pulse 94 Oximetry - Lab 06/07/21 10:03 06/07/21 07:32 Most recent lab results ABG pH 7.456 (7.320-7.450) H 06/05/21 20:06 ABG pCO2 29.0 mm Hg 05/30/21 22:32 ABG pO2 141.8 mm Hg (80.0-90.0) H 05/30/21 22:32 ABG HCO3 19.9 mmol/L (20.0-26.0) L 05/30/21 22:32 ABG O2 Saturation 98.2 (0-100) 06/05/21 20:06 Calcium 8.0 mg/dL (8.4-10.2) L 06/07/21 07:32 Phosphorus 2.20 mg/dL (2.5-4.5) L D 06/03/21 05:57 Magnesium 2.30 mg/dL (1.7-2.3) 06/06/21 04:35 Medications & Allergies - Medications Allergies/Adverse Reactions: Allergies No Known Allergies Allergy (Unverified 02/12/17 15:47) Home Medications: Home Medications Medication Instructions Recorded Confirmed Last Taken Type No Known Home Medications [No 05/31/21 05/31/21 Unknown History Reported Home Medications] Active Medications: Generic Name Dose Route Start Last Admin Trade Name Freq PRN Reason Stop Dose Admin Acetaminophen 650 mg 05/29/21 07:05 06/03/21 21:32 Acetaminophen 325 Mg Tab PO 650 mg Q6H PRN Administration Pain, Mild (1-3) Acetaminophen 650 mg 06/03/21 08:21 06/03/21 08:42 Acetaminophen 650 Mg Rect Supp [place] 650 mg Q4H PRN Administration Pain, Mild (1-3) Albuterol/Ipratropium 1 ampul 06/07/21 20:00 Ipratropium/Albuterol Sulfate 3 Ml Ampul.Neb IH TIDRT MIKE Lipase/Protease/Amylase 1 each 06/03/21 12:23 Lipase 10,500/Protease 25,000/Amylase 43,750 (Units) Dr Rodney FEEDTUBE PRN PRN For Clogged Feeding Tube Docusate Sodium 100 mg 06/07/21 10:00 06/07/21 09:52 Docusate Sodium 100 Mg Cap PO Not Given DAILY [facility] Heparin Sodium (Porcine) 5,000 unit 05/24/21 06:00 06/07/21 05:56 Heparin 5,000 Unit/1 Ml Vial SUB-Q 5,000 unit Q8HR MIKE Administration Levofloxacin/Dextrose 750 mg in 150 mls @ 100 mls/hr 06/06/21 16:00 06/06/21 15:09 Levaquin 750mg/150ml IV 100 mls/hr Q24H MIKE Administration Protocol Vancomycin HCl 1,250 mg/ 275 mls @ 166.667 mls/hr 06/07/21 12:00 06/07/21 12:51 Sodium Chloride IV 166.667 mls/hr Q18H MIKE Administration Methylprednisolone Sodium Succinate 60 mg 06/04/21 10:00 06/07/21 12:15 Methylprednisolone Sod Succinate 125 Mg/2 Ml Inj IV 60 mg Q8H MIKE Administration Morphine Sulfate 2 mg 05/23/21 22:01 06/05/21 15:02 Morphine 2 Mg/1 Ml Inj IV 2 mg Q4H PRN Administration Pain, Moderate (4-6) Ondansetron HCl 4 mg 06/04/21 13:41 06/07/21 12:15 Ondansetron 4 Mg/2 Ml Inj IV 4 mg Q4H PRN Administration Nausea And Vomiting Simple Syrup 15 ml 06/03/21 12:23 Simple Syrup 15 Ml FEEDTUBE PRN PRN Hypoglycemia Simple Syrup 30 ml 06/03/21 12:23 Simple Syrup 15 Ml FEEDTUBE PRN PRN Hypoglycemia Sodium Bicarbonate 325 mg 06/03/21 12:23 Sodium Bicarbonate 325 Mg Tab FEEDTUBE PRN PRN For Clogged Feeding Tube Sodium Chloride 10 ml 05/24/21 10:00 06/07/21 12:16 Sodium Chloride 0.9% 10 Ml Flush Syringe IV 10 ml BID MIKE Administration Sodium Chloride 10 ml 05/23/21 22:01 Sodium Chloride 0.9% 10 Ml Flush Syringe IV PRN PRN LINE FLUSH
[2021-06-07] MEDS: D5W/0.45% NACL/KCL 20 MEQ 20 MEQ/1,000 ML BAG IV SCH (16:02)
[2021-06-08] MEDS: methylPREDNISolone Sod Succinate 125 MG/2 ML INJ IV SCH ×2 (02:00→09:53)
[2021-06-08] MEDS: FREE WATER PO SCH ×5 (03:00→15:25)
[2021-06-08] MEDS: D5W/0.45% NACL/KCL 20 MEQ 20 MEQ/1,000 ML BAG IV SCH (04:04)
[2021-06-08] MEDS: HEPARIN 5,000 UNIT/1 ML VIAL SUB-Q SCH ×3 (05:26→23:10)
[2021-06-08] MEDS: VANCOMYCIN 1,250 MG in SODIUM CHLORIDE 0.9% 250ML 250 ML IV SCH ×2 (05:27→23:14)
[2021-06-08 08:22] LABS: BUN/Creatinine Ratio 31; Blood Urea Nitrogen 31 mg/dL (9-20); Calcium 8.1 mg/dL (8.4-10.2); Hemolysis Index 3
--- NOTE | 2021-06-08 08:52 | Progress Note ---
Assessment and Plan Assessment and plan: #Acute hypoxic respiratory failure -weaned to 10L, will maintain SpO2 >90% -VQ scan low probability for PE on admission -continue methylprednisone 60 mg every 8 hours -s/p 1 dose of Lasix -TTE completed, read pending -Pulmonary consulted, recommendations appreciated #Pneumonia -CT abdomen pelvis revealed severe bilateral pneumonia and a cavitary lesion in the left lower lobe -likely secondary to aspiration during ileus -CT chest ordered -CRP 19.6 and procal 24.30, will repeat -continue vancomycin -ciprofloxacin discontinued -cefepime and flagyl added per ID recommendations -completed azithromycin and Rocephin in past -ID consulted for recommendations #Ileus-resolved -resolved via CT abd/pelvis -Surgery signed off #Severe sepsis -repeat blood cultures no growth to date -procalcitonin 24.30, will repeat -discontinue ciprofloxacin -continue vancomycin, cefepime and flagyl -s/p zosyn -likely 2/2 to PNA #Lactic acidosis -Resolved #Acute encephalopathy -Resolved -CT head negative, ammonia 22 #COVID-19 infection -Diagnosed on 05/11 -ID consulted, assistance appreciated -s/p 10 days of steroids, restarted on 06/04 due to worsening Pulmonary status -will taper steroids, decreased to solumedrol 40mg q12h, will reduce to q day to oral over the next few days #Hypernatremia -Na 149 today -likely secondary to poor oral intake #ANGELES, resolved #Hyperkalemia, resolved #Discharge planning -Patient and family agreed to the home with home health upon discharge -will continue to wean oxygen to at least 4 L/min prior to discharge Disposition Plan: Continue medical manage Total Time Spent with Patient (Minutes): 20 minutes History Interval history: No acute events overnight. Patient alert and oriented. Currently on high flow nasal cannula 40LPM. Complains of hunger and thirst. Denies pain or worsening shortness of breath. Hospitalist Physical - Physical exam Narrative exam: GENERAL: Thin male. Lying in bed in no acute distress. HEENT: NC @ 40LPM CHEST/LUNGS: Coarse breath sounds bilaterally. No use of assessory muscles of breathing. HEART/CARDIOVASCULAR: Regular rate and rhythm. No murmur, rubs or gallops appreciated. ABDOMEN: +BS. NT/ND. EXTREMITIES: No cyanosis, clubbing or edema. PSYCH: Cooperative. - Constitutional Vitals: Temp Pulse Resp BP Pulse Ox 97.6 F 68 20 153/80 96 06/08/21 05:31 06/08/21 05:31 06/08/21 05:31 06/08/21 05:31 06/08/21 05:31 General appearance: Present: no acute distress, cachectic HEART Score - HEART Score EKG: Non-specific Age: 45-65 Risk factors: 1-2 risk factors Troponin: Troponin T < 0.010 ng/mL (0.00-0.029) 05/23/21 18:48 - Critical Actions Critical Actions: 0-3 pts:0.9-1.7%risk of adverse cardiac event.Candidate for discharge Results - Labs CBC & Chem 7: 06/07/21 10:03 06/08/21 07:18 Labs: Laboratory Last Values WBC 5.0 K/mm3 (4.5-11.0) 06/07/21 10:03 RBC 3.63 M/mm3 (3.65-5.03) L 06/07/21 10:03 Hgb 9.8 gm/dl (11.8-15.2) L 06/07/21 10:03 Hct 30.3 % (35.5-45.6) L 06/07/21 10:03 MCV 83 fl (84-94) L 06/07/21 10:03 MCH 27 pg (28-32) L 06/07/21 10:03 MCHC 32 % (32-34) 06/07/21 10:03 RDW 14.9 % (13.2-15.2) 06/07/21 10:03 Plt Count 157 K/mm3 (140-440) 06/07/21 10:03 Lymph % (Auto) Impregnation Operator 06/01/21 07:10 [place] % (Auto) Impregnation Operator 06/01/21 07:10 Eos % (Auto) Impregnation Operator 06/01/21 07:10 Baso % (Auto) Impregnation Operator 06/01/21 07:10 Lymph # (Auto) Impregnation Operator 06/01/21 07:10 [place] # (Auto) Impregnation Operator 06/01/21 07:10 Eos # (Auto) Impregnation Operator 06/01/21 07:10 Baso # (Auto) Impregnation Operator 06/01/21 07:10 Add Manual Diff Complete 06/04/21 07:04 Total Counted 100 09/29/21 07:04 Seg Neutrophils % Impregnation Operator 06/01/21 07:10 Seg Neuts % (Manual) 88.0 % (40.0-70.0) H 06/03/21 05:57 Band Neutrophils % 1.0 % 06/04/21 07:04 Lymphocytes % (Manual) 5.0 % (13.4-35.0) L 06/04/21 07:04 Reactive Lymphs % (Man) 1.0 % 06/01/21 07:10 Monocytes % (Manual) 3.0 % (0.0-7.3) 06/04/21 07:04 Nucleated RBC % Not Reportable 06/04/21 07:04 Seg Neutrophils # Impregnation Operator 06/01/21 07:10 Seg Neutrophils # Man 8.4 K/mm3 (1.8-7.7) H 06/04/21 07:04 Band Neutrophils # 0.1 K/mm3 06/04/21 07:04 Lymphocytes # (Manual) 0.5 K/mm3 (1.2-5.4) L 06/04/21 07:04 Abs React Lymphs (Man) 0.0 K/mm3 06/04/21 07:04 Monocytes # (Manual) 0.3 K/mm3 (0.0-0.8) 06/04/21 07:04 Eosinophils # (Manual) 0.0 K/mm3 (0.0-0.4) 06/04/21 07:04 Basophils # (Manual) 0.0 K/mm3 (0.0-0.1) 06/04/21 07:04 Metamyelocytes # 0.0 K/mm3 06/04/21 07:04 Myelocytes # 0.0 K/mm3 06/04/21 07:04 Promyelocytes # 0.0 K/mm3 06/04/21 07:04 Blast Cells # 0.0 K/mm3 06/04/21 07:04 WBC Morphology Not Reportable 06/04/21 07:04 Hypersegmented Neuts Not Reportable 06/04/21 07:04 Hyposegmented Neuts Not Reportable 06/04/21 07:04 Hypogranular Neuts Not Reportable 06/04/21 07:04 Smudge Cells Not Reportable 06/04/21 07:04 Toxic Granulation Not Reportable 06/04/21 07:04 Toxic Vacuolation Not Reportable 06/04/21 07:04 Dohle Bodies Not Reportable 06/04/21 07:04 Pelger-Huet Anomaly Not Reportable 06/04/21 07:04 Kaci Rods Not Reportable 06/04/21 07:04 Platelet Estimate Consistent w auto 06/04/21 07:04 Clumped Platelets Not Reportable 06/04/21 07:04 Plt Clumps, EDTA Not Reportable 06/04/21 07:04 Large Platelets Not Reportable 06/04/21 07:04 Giant Platelets Not Reportable 06/04/21 07:04 Platelet Satelliting Not Reportable 06/04/21 07:04 Plt Morphology Comment Not Reportable 06/04/21 07:04 RBC Morphology Normal 06/04/21 07:04 Dimorphic RBCs Not Reportable 06/04/21 07:04 Polychromasia Not Reportable 06/04/21 07:04 Hypochromasia Not Reportable 06/04/21 07:04 Poikilocytosis Not Reportable 06/04/21 07:04 Anisocytosis Not Reportable 06/04/21 07:04 Microcytosis Not Reportable 06/04/21 07:04 Macrocytosis Not Reportable 06/04/21 07:04 Spherocytes Not Reportable 06/04/21 07:04 Pappenheimer Bodies Not Reportable 06/04/21 07:04 Sickle Cells Not Reportable 06/04/21 07:04 Target Cells Not Reportable 06/04/21 07:04 Tear Drop Cells Not Reportable 06/04/21 07:04 Ovalocytes Not Reportable 06/04/21 07:04 Helmet Cells Not Reportable 06/04/21 07:04 [place] Bodies Not Reportable 06/04/21 07:04 [place] Rings Not Reportable 06/04/21 07:04 [place] Cells Not Reportable 06/04/21 07:04 Bite Cells Not Reportable 06/04/21 07:04 Crenated Cell Not Reportable 06/04/21 07:04 Elliptocytes Not Reportable 06/04/21 07:04 Acanthocytes (Spur) Not Reportable 06/04/21 07:04 Rouleaux Not Reportable 06/04/21 07:04 Hemoglobin C Crystals Not Reportable 06/04/21 07:04 Schistocytes Not Reportable 06/04/21 07:04 Malaria parasites Not Reportable 06/04/21 07:04 Dick Bodies Not Reportable 06/04/21 07:04 Hem Pathologist Commnt No 06/04/21 07:04 D-Dimer 3584.01 ng/mlDDU (0-234) H 05/27/21 08:09 ABG pH 7.456 (7.320-7.450) H 06/05/21 20:06 POC ABG pCO2 43.4 mmHg (32.0-48.0) 06/05/21 20:06 ABG pCO2 29.0 mm Hg 05/30/21 22:32 POC ABG pO2 102.1 mmHg (83-108) 06/05/21 20:06 ABG pO2 141.8 mm Hg (80.0-90.0) H 05/30/21 22:32 POC ABG HCO3 29.9 06/05/21 20:06 ABG HCO3 19.9 mmol/L (20.0-26.0) L 05/30/21 22:32 ABG O2 Saturation 98.2 (0-100) 06/05/21 20:06 ABG O2 Content 19.9 (0.0-44) 05/30/21 22:32 POC ABG Base Excess 5.4 06/05/21 20:06 ABG Base Excess -2.7 mmol/L (-2.0-3.0) L 05/30/21 22:32 ABG Hemoglobin 10.3 (12.0-17.5) L 06/05/21 20:06 ABG Oxyhemoglobin 97.6 (94-98) 06/05/21 20:06 ABG Carboxyhemoglobin 1.1 % (0.0-5.0) 05/30/21 22:32 ABG Methemoglobin 0.3 (0.0-1.5) 06/05/21 20:06 ABG Sodium 138.7 mmol/L (136.0-145.0) 06/05/21 20:06 ABG Potassium 3.1 mmol/L (3.40-4.50) L 06/05/21 20:06 ABG Chloride 103.0 mmol/L (98-107) 06/05/21 20:06 ABG Glucose 125 mg/dL (65-95) H 06/05/21 20:06 VBG pH 7.254 (7.320-7.420) L 05/24/21 02:09 Oxyhemoglobin 97.1 % (95.0-99.0) 05/30/21 22:32 Carboxyhemoglobin 0.3 (0.5-1.5) L 06/05/21 20:06 FiO2 70 % 05/30/21 22:32 FiO2 % 65.0 06/05/21 20:06 Sodium 149 mmol/L (137-145) H 06/08/21 07:18 Potassium 4.1 mmol/L (3.6-5.0) D 06/08/21 07:18 Chloride 110.2 mmol/L (98-107) H 06/08/21 07:18 Carbon Dioxide 29 mmol/L (22-30) 06/08/21 07:18 Anion Gap 14 mmol/L 06/08/21 07:18 BUN 31 mg/dL (9-20) H 06/08/21 07:18 Creatinine 1.0 mg/dL (0.8-1.3) 06/08/21 07:18 Estimated GFR > 60 ml/min 06/08/21 07:18 BUN/Creatinine Ratio 31 % 06/08/21 07:18 Glucose 131 mg/dL (75-100) H 06/08/21 07:18 POC Glucose 120 mg/dL (70-105) H 06/08/21 07:45 Lactic Acid 1.20 mmol/L (0.7-2.0) 06/06/21 00:04 Calcium 8.1 mg/dL (8.4-10.2) L 06/08/21 07:18 Phosphorus 2.20 mg/dL (2.5-4.5) L D 06/03/21 05:57 Magnesium 2.30 mg/dL (1.7-2.3) 06/06/21 04:35 Ferritin 2742.0 ng/mL (30.0-300.0) H 05/27/21 08:09 Total Bilirubin 0.90 mg/dL (0.1-1.2) 05/23/21 18:48 AST 27 units/L (5-40) 05/23/21 18:48 ALT 7 units/L (7-56) 05/23/21 18:48 Alkaline Phosphatase 69 units/L (35-129) 05/23/21 18:48 Ammonia 22.0 umol/L (25-60) L 05/23/21 18:48 Lactate Dehydrogenase 642 units/L (91-180) H 05/27/21 08:09 Troponin T < 0.010 ng/mL (0.00-0.029) 05/23/21 18:48 C-Reactive Protein 19.60 mg/dL (0.00-1.30) H 06/06/21 00:04 Total Protein 9.4 g/dL (6.3-8.2) H 05/23/21 18:48 Albumin 3.0 g/dL (3.9-5) L 05/23/21 18:48 Albumin/Globulin Ratio 0.5 % 05/23/21 18:48 Procalcitonin 24.30 ng/mL (<0.15) 06/06/21 00:04 TSH 1.150 mlU/mL (0.270-4.200) 05/23/21 18:48 Arterial Blood Glucose 125 mg/dL (65-95) H 06/05/21 20:06 Arterial Blood Ionized Calcium 4.5 mg/dL (4.6-5.3) L 05/29/21 17:58 Urine Color Eli (Yellow) 05/30/21 01:00 Urine Turbidity Cloudy (Clear) 05/30/21 01:00 Urine pH 5.0 (5.0-7.0) 05/30/21 01:00 Ur Specific [place] 1.019 (1.003-1.030) 05/30/21 01:00 Urine Protein 100 mg/dl mg/dL (Negative) 05/30/21 01:00 Urine Glucose (UA) Neg mg/dL (Negative) 05/30/21 01:00 Urine Ketones Neg mg/dL (Negative) 05/30/21 01:00 Urine Blood Mod (Negative) 05/30/21 01:00 Urine Nitrite Neg (Negative) 05/30/21 01:00 Urine Bilirubin Neg (Negative) 05/30/21 01:00 Urine Urobilinogen 4.0 mg/dL (<2.0) 05/30/21 01:00 Ur Leukocyte Esterase Neg (Negative) 05/30/21 01:00 Urine WBC (Auto) 12.0 /HPF (0.0-6.0) H 05/30/21 01:00 Urine RBC (Auto) 21.0 /HPF (0.0-6.0) 05/30/21 01:00 U Epithel Cells (Auto) 2.0 /HPF (0-13.0) 05/30/21 01:00 Uric Acid Crystals Few 05/30/21 01:00 Urine Mucus Few /HPF 05/30/21 01:00 Urine Yeast (Budding) 2+ /HPF 05/30/21 01:00 Vancomycin Trough 12.2 ug/mL (5.0-20.0) 06/02/21 13:40 Plasma/Serum Alcohol < 0.01 % (0-0.07) 05/23/21 18:48 Proteinase 3 (PR3) Ab <1.0 AI (<1.0) 05/24/21 20:57 Myeloperoxidase Ab <1.0 AI (<1.0) 05/24/21 20:57 Complement C3 108 mg/dL (82-185) 05/24/21 20:57 Complement C4 29 mg/dL (15-53) 05/24/21 20:57 Coronavirus (PCR) Negative (Negative) 05/26/21 08:41 Blood Type A POSITIVE 05/29/21 08:15 Antibody Screen Negative 05/29/21 08:15 Microbiology: Microbiology 06/03/21 21:28 Peripheral/Venous Blood Culture - Preliminary NO GROWTH AFTER 4 DAYS 06/03/21 21:28 Peripheral/Venous Blood Culture - Preliminary NO GROWTH AFTER 4 DAYS Heart/IV: Voiding Method Condom Catheter Active Medications - Current Medications Current Medications: Generic Name Dose Route Start Last Admin Trade Name Freq PRN Reason Stop Dose Admin Acetaminophen 650 mg 05/29/21 07:05 06/03/21 21:32 Acetaminophen 325 Mg Tab PO 650 mg Q6H PRN Administration Pain, Mild (1-3) Acetaminophen 650 mg 06/03/21 08:21 06/03/21 08:42 Acetaminophen 650 Mg Rect Supp [place] 650 mg Q4H PRN Administration Pain, Mild (1-3) Albuterol/Ipratropium 1 ampul 06/07/21 20:00 06/07/21 23:13 Ipratropium/Albuterol Sulfate 3 Ml Ampul.Neb IH Not Given TIDRT MIKE Lipase/Protease/Amylase 1 each 06/03/21 12:23 Lipase 10,500/Protease 25,000/Amylase 43,750 (Units) Dr Rodney FEEDTUBE PRN PRN For Clogged Feeding Tube Docusate Sodium 100 mg 06/07/21 10:00 06/07/21 09:52 Docusate Sodium 100 Mg Cap PO Not Given DAILY MIKE Heparin Sodium (Porcine) 5,000 unit 05/24/21 06:00 06/08/21 05:26 Heparin 5,000 Unit/1 Ml Vial SUB-Q 5,000 unit Q8HR MIKE Administration Levofloxacin/Dextrose 750 mg in 150 mls @ 100 mls/hr 06/06/21 16:00 06/07/21 16:02 Levaquin 750mg/150ml IV 100 mls/hr Q24H MIKE Administration Protocol Vancomycin HCl 1,250 mg/ 275 mls @ 166.667 mls/hr 06/07/21 12:00 06/08/21 05:27 Sodium Chloride IV 166.667 mls/hr Q18H MIKE Administration Potassium Chloride/Dextrose/Sod Cl 20 meq in 1,000 mls @ 100 mls/hr 06/07/21 15:00 06/08/21 04:04 D5w/0.45% Nacl/Kcl 20 Meq IV 100 mls/hr DIRECT MIKE Administration Methylprednisolone Sodium Succinate 60 mg 06/04/21 10:00 06/08/21 02:00 Methylprednisolone Sod Succinate 125 Mg/2 Ml Inj IV 60 mg Q8H MIKE Administration Morphine Sulfate 2 mg 05/23/21 22:01 06/05/21 15:02 Morphine 2 Mg/1 Ml Inj IV 2 mg Q4H PRN Administration Pain, Moderate (4-6) Ondansetron HCl 4 mg 06/04/21 13:41 06/07/21 12:15 Ondansetron 4 Mg/2 Ml Inj IV 4 mg Q4H PRN Administration Nausea And Vomiting Simple Syrup 15 ml 06/03/21 12:23 Simple Syrup 15 Ml FEEDTUBE PRN PRN Hypoglycemia Simple Syrup 30 ml 06/03/21 12:23 Simple Syrup 15 Ml FEEDTUBE PRN PRN Hypoglycemia Sodium Bicarbonate 325 mg 06/03/21 12:23 Sodium Bicarbonate 325 Mg Tab FEEDTUBE PRN PRN For Clogged Feeding Tube Sodium Chloride 10 ml 05/24/21 10:00 06/07/21 22:00 Sodium Chloride 0.9% 10 Ml Flush Syringe IV 10 ml BID MIKE Administration Sodium Chloride 10 ml 05/23/21 22:01 Sodium Chloride 0.9% 10 Ml Flush Syringe IV PRN PRN LINE FLUSH Nutrition/Malnutrition Assess - Dietary Evaluation Nutrition/Malnutrition Findings: Nutrition Notes Start: 05/25/21 09:33 Freq: Status: Active Protocol: Document 06/06/21 11:43 [facility] (Rec: 06/06/21 11:49 PRALL [id number]) Nutrition Notes Initial or Follow up Reassessment Current Diagnosis Sepsis Other Pertinent Diagnosis COVID-19 (+), pneu, ?ileus Current Diet NPO Labs/Tests BUN 43 Pertinent Medications Solumedrol Height 5 ft 11 in Weight 77.11 kg [place] Body Weight (kg) 78.18 BMI 23.7 Weight Status Appropriate Subjective/Other Information Pt with multiple episodes of vomiting on 06/04; TF stopped, DHT removed. Abdominal X-ray revealed dilated small bowel loops (possible SBO). NGT placed. Percent of energy/protein needs met: 0%/0% Burn Absent Trauma Absent GI Symptoms Vomiting,Constipation #1 Nutrition Diagnosis Inadequate oral intake Diagnosis Progress(for reassessment Continues documentation) Is patient on ventilator? No Is Patient Ambulatory and/or Out of Bed No [facility] 1964.124 Calculation Used for Recommendations [place] Additional Notes Pro needs 1-1.2g/k-93g/ day Fluid needs 1ml/kcal Nutrition Intervention Nutrition Support: Resume EN support when medically feasible Goal #1 Resume EN support to meet nutrient needs Follow-Up By: 06/09/21 Additional Comments F/U: TF restart
[2021-06-08] MEDS: IPRATROPIUM/ALBUTEROL SULFATE 3 ML AMPUL.NEB IH SCH ×3 (10:06→23:24)
--- NOTE | 2021-06-08 10:20 | Progress Note ---
Subjective Date of service: 06/08/21 Principal diagnosis: Acute hypoxemic resp failure; Pneumonia; COVID-19 infection Interval history: Impression: * Acute kidney injury secondary to ATN likely related to COVID 19 * Acute hypoxic respiratory failure secondary to COVID 19 PNA * Azotemia * Hyperkalemia * Metabolic acidosis * Hypernatremia Plan: * add d5W today * stopped baclofen * cr stable today * Na noted, * free water replacement * Keep MAP>65 * Management of COVID 19 PNA to primary team/ID * Dose medications for renal function * AM labs * Renal diet * follow up lytes prn * Prognosis guarded Subjective Date of service: 06/01/21 Principal diagnosis: Pneumonia Interval history: Nursing, interdisciplinary and consult notes were reviewed Vitals, input and output, medications and labs were reviewed Objective exam deferred for preservation of PPE, primary team exam noted Objective - Vital Signs Vital signs: Vital Signs - 12hr 06/08/21 06/08/21 06/08/21 01:00 05:10 05:21 Temperature 98.2 F Pulse Rate 78 66 67 Respiratory 35 H 21 18 Rate Blood Pressure 153/80 Blood Pressure [Right] O2 Sat by Pulse 95 99 96 Oximetry 06/08/21 06/08/21 05:31 10:05 Temperature 97.6 F Pulse Rate 68 Respiratory 20 Rate Blood Pressure Blood Pressure 153/80 [Right] O2 Sat by Pulse 96 98 Oximetry - Lab 06/07/21 10:03 06/08/21 07:18 Most recent lab results ABG pH 7.456 (7.320-7.450) H 06/05/21 20:06 ABG pCO2 29.0 mm Hg 05/30/21 22:32 ABG pO2 141.8 mm Hg (80.0-90.0) H 05/30/21 22:32 ABG HCO3 19.9 mmol/L (20.0-26.0) L 05/30/21 22:32 ABG O2 Saturation 98.2 (0-100) 06/05/21 20:06 Calcium 8.1 mg/dL (8.4-10.2) L 06/08/21 07:18 Phosphorus 2.20 mg/dL (2.5-4.5) L D 06/03/21 05:57 Magnesium 2.30 mg/dL (1.7-2.3) 06/06/21 04:35 Medications & Allergies - Medications Allergies/Adverse Reactions: Allergies No Known Allergies Allergy (Unverified 02/12/17 15:47) Home Medications: Home Medications Medication Instructions Recorded Confirmed Last Taken Type No Known Home Medications [No 05/31/21 05/31/21 Unknown History Reported Home Medications] Active Medications: Generic Name Dose Route Start Last Admin Trade Name Freq PRN Reason Stop Dose Admin Acetaminophen 650 mg 05/29/21 07:05 06/03/21 21:32 Acetaminophen 325 Mg Tab PO 650 mg Q6H PRN Administration Pain, Mild (1-3) Acetaminophen 650 mg 06/03/21 08:21 06/03/21 08:42 Acetaminophen 650 Mg Rect Supp [place] 650 mg Q4H PRN Administration Pain, Mild (1-3) Albuterol/Ipratropium 1 ampul 06/07/21 20:00 06/08/21 10:06 Ipratropium/Albuterol Sulfate 3 Ml Ampul.Neb IH Not Given TIDRT MIKE Lipase/Protease/Amylase 1 each 06/03/21 12:23 Lipase 10,500/Protease 25,000/Amylase 43,750 (Units) Cap FEEDTUBE PRN PRN For Clogged Feeding Tube Docusate Sodium 100 mg 06/07/21 10:00 06/07/21 09:52 Docusate Sodium 100 Mg Cap PO Not Given DAILY [facility] Heparin Sodium (Porcine) 5,000 unit 05/24/21 06:00 06/08/21 05:26 Heparin 5,000 Unit/1 Ml Vial SUB-Q 5,000 unit Q8HR MIKE Administration Levofloxacin/Dextrose 750 mg in 150 mls @ 100 mls/hr 06/06/21 16:00 06/07/21 16:02 Levaquin 750mg/150ml IV 100 mls/hr Q24H MIKE Administration Protocol Vancomycin HCl 1,250 mg/ 275 mls @ 166.667 mls/hr 06/07/21 12:00 06/08/21 05:27 Sodium Chloride IV 166.667 mls/hr Q18H MIKE Administration Potassium Chloride/Dextrose/Sod Cl 20 meq in 1,000 mls @ 100 mls/hr 06/07/21 15:00 06/08/21 04:04 D5w/0.45% Nacl/Kcl 20 Meq IV 100 mls/hr DIRECT MIKE Administration Methylprednisolone Sodium Succinate 60 mg 06/04/21 10:00 06/08/21 09:53 Methylprednisolone Sod Succinate 125 Mg/2 Ml Inj IV 60 mg Q8H MIKE Administration Morphine Sulfate 2 mg 05/23/21 22:01 06/05/21 15:02 Morphine 2 Mg/1 Ml Inj IV 2 mg Q4H PRN Administration Pain, Moderate (4-6) Ondansetron HCl 4 mg 06/04/21 13:41 06/07/21 12:15 Ondansetron 4 Mg/2 Ml Inj IV 4 mg Q4H PRN Administration Nausea And Vomiting Simple Syrup 15 ml 06/03/21 12:23 Simple Syrup 15 Ml FEEDTUBE PRN PRN Hypoglycemia Simple Syrup 30 ml 06/03/21 12:23 Simple Syrup 15 Ml FEEDTUBE PRN PRN Hypoglycemia Sodium Bicarbonate 325 mg 06/03/21 12:23 Sodium Bicarbonate 325 Mg Tab FEEDTUBE PRN PRN For Clogged Feeding Tube Sodium Chloride 10 ml 05/24/21 10:00 06/08/21 09:54 Sodium Chloride 0.9% 10 Ml Flush Syringe IV 10 ml BID MIKE Administration Sodium Chloride 10 ml 05/23/21 22:01 Sodium Chloride 0.9% 10 Ml Flush Syringe IV PRN PRN LINE FLUSH
--- NOTE | 2021-06-08 11:51 | Progress Note ---
Assessment and Plan Cultures: SARS CoV2 PCR: Positive as outpatient. Negative here x 2 05/23/2021 blood culture: no growth 05/29/2021 blood culture no growth 05/30/2021 blood culture no growth 05/30/2021 urine culture [place] 05/31/2021 blood culture no growth 06/03/2021 blood culture no growth today A/P: 55/M with initially seen on 05/23/2021 due to bilateral pneumonia with positive Covid test outpatient but negative x2 inpatient noted with new fever and repeat CT chest shows bilateral basilar pneumonia with cavitation: #Sepsis: No fever since 06/04/2021. Likely secondary to bilateral pneumonia. #Bilateral pneumonia with cavitation: ? secondary to COVID-19, tested positive as outpatient, but negative here x 2. During the last week noted elevated procalcitonin from 0.3-->24 in the setting of resolving ANGELES. Also noted CRP from 5.2-->19. CT abdomen shows severe aspiration type pneumonia in both bases with a currently 30 lesion of 20 cm on the left lower lobe. #Acute hypoxic respiratory failure: On BiPAP. Likely due to pneumonia. VQ scan low probability for PE. #Recent ileus: Resolved. #Acute renal failure: Nephrology on board. Improving. #Hypernatremia: Per primary team/ renal improving #Tachycardia #Elevated ddimer: VQ low prob for PE Recs: -Taper off of steroids -Obtain CT of chest -Repeat procalcitonin -Stop Levaquin -Start cefepime and metronidazole -Continue vancomycin -Check MRSA PCR -Consider pulmonary evaluation for bronchoscopy if clinically not better Klaudia Somers MD [facility] ([facility]) Office [phone] Subjective Date of service: 06/08/21 Principal diagnosis: Acute hypoxemic resp failure; Pneumonia; COVID-19 infection Interval history: RECONSULT: ID reconsulted due to cavitary pneumonia. Last time seen on 05/08. Patient noted to have a fever of 102.1 05/29/2021 on 05/30/2021. Seems like patient developed an ileus. Patient is currently on BiPAP difficult interview. No fever since 06/04/2021. Objective - Exam Narrative Exam: General appearance: Alert on BiPAP Eyes: anicteric sclerae, moist conjunctivae; no lid-lag; PERRLA HENT: Normocephalic, Atraumatic; normal external ears, nares open, oropharynx limited Neck: supple, tracheal midline, no JVD Lungs: Rhonchi CV: RRR no murmur Abdomen: Soft, non-tender; no masses or hepatosplenomegaly Extremities: no edema, no cyanosis Skin: No rash. Psych: no agitated Neuro: alert follows commands - Constitutional Vitals: Vital Signs Temp Pulse Resp BP Pulse Ox 97.6 F 68 20 153/80 98 06/08/21 05:31 06/08/21 05:31 06/08/21 05:31 06/08/21 05:31 06/08/21 10:05 Temperature -Last 24 Hours Temperature 97.6 F Temperature 98.2 F - Labs CBC & Chem 7: 06/07/21 10:03 06/08/21 07:18 Labs: Abnormal lab results 06/07/21 06/07/21 06/08/21 Range/Units 17:54 22:14 07:18 Sodium 149 H (137-145) mmol/L Chloride 110.2 H (98-107) mmol/L BUN 31 H (9-20) mg/dL Glucose 131 H (75-100) mg/dL POC Glucose 121 H 131 H (70-105) mg/dL Calcium 8.1 L (8.4-10.2) mg/dL 06/08/21 Range/Units 07:45 Sodium (137-145) mmol/L Chloride (98-107) mmol/L BUN (9-20) mg/dL Glucose (75-100) mg/dL POC Glucose 120 H (70-105) mg/dL Calcium (8.4-10.2) mg/dL
--- NOTE | 2021-06-08 14:54 | Progress Note ---
Assessment and Plan Acute hypoxemic respiratory failure Bilateral pneumonia Suspected 2018 novel coronavirus infection - CT chest suggests acute on chronic lung disease with bibasilar pneumonia (Likely aspiration) CT abd/pelvis - 2D ECHO unremarkable - continue NIV qhs with prn daytime use - continue care as below otherwise; - continue anti-infective's per ID rec's - continue to wean supplemental oxygen for target O2 sat's > 90% acutely - continue aspiration precautions - bronchodilators with pulmonary hygiene per RT - continue accuchecks with glycemic control per SSI (While critically ill target blood glucose of 140-180 mg/dL; avoid hypoglycemia) - avoid nephrotoxins, renally dose all medications - continue to avoid benzodiazepine's, reduce the possibility of delirium - prn analgesia per pain score - Maintenance of sleep-wake cycle, avoid delirium - G.I. & VTE prophylaxis - PT/OT/ROM exercises - mobility protocols for pressure ulcer prophylaxis - Monitor hemodynamics closely - continue other care per attending / other consultants - discharge planning ongoing concurrently COVID SPECIFIC INTERVENTIONS - repeat COVID-19 test result negative .... Re-evaluate in am & prn CONDITION: CRITICAL PROGNOSIS: GUARDED CODE STATUS: FULL CODE The high probability of a clinically significant, sudden or life-threatening d eterioration of the [respiratory, GI, renal & cardiovascular] system(s) required my full and direct attention, intervention and personal management. The aggregate critical care time was [31] minutes without overlap. Time includes spent on; [x] Data Review and interpretation [x] Patient assessment and monitoring of vital signs [x] Documentation [x] Medication orders and management Subjective Date of service: 06/08/21 Principal diagnosis: Acute hypoxemic resp failure; Pneumonia; PUI COVID-19 infection Interval history: Patient is seen today for: Acute hypoxemic respiratory failure; Bilateral pneumonia; Suspected 2019 novel coronavirus infection Seen and examined at bedside; 24hour events reviewed; nursing and respiratory care staff consulted; no adverse overnight events reported to me; resting in bed; off BIPAP but on HFNC @ 100% FiO2 and 40L flow; denies chest pain; no N/V/F/C; weak Objective Vital Signs - 12hr 06/08/21 06/08/21 06/08/21 05:10 05:21 05:31 Temperature 98.2 F 97.6 F Pulse Rate 66 67 68 Pulse Rate [ Posterior Bilateral Throughout] Respiratory 21 18 20 Rate Respiratory Rate [Posterior Bilateral Throughout] Blood Pressure 153/80 Blood Pressure 153/80 [Right] O2 Sat by Pulse 99 96 96 Oximetry 06/08/21 06/08/21 06/08/21 10:05 11:44 14:35 Temperature 99.2 F Pulse Rate 77 Pulse Rate [ Posterior Bilateral Throughout] Respiratory 18 Rate Respiratory Rate [Posterior Bilateral Throughout] Blood Pressure 157/77 Blood Pressure [Right] O2 Sat by Pulse 98 100 96 Oximetry 06/08/21 14:40 Temperature Pulse Rate Pulse Rate [ 96 H Posterior Bilateral Throughout] Respiratory Rate Respiratory 20 Rate [Posterior Bilateral Throughout] Blood Pressure Blood Pressure [Right] O2 Sat by Pulse Oximetry Constitutional: appears uncomfortable, other (middle aged male with mildly increased respiratory effort at rest) Eyes: non-icteric Neck: supple, no JVD Effort: mildly labored Ascultation: Bilateral: diminished breath sounds (bases), rhonchi Percussion: Bilateral: not dull Cardiovascular: regular rate and rhythm Gastrointestinal: hypoactive bowel sounds, soft, non-tender, other (distended but very soft) Integumentary: normal Extremities: no cyanosis, no edema, pulses normal, no ischemia or petechiae Neurologic: pupils equal and round, CN II-XII normal, other (somnolent) Psychiatric: other (flat affect) CBC and BMP: 06/12/21 04:00 06/12/21 04:00 ABG, PT/INR, D-dimer: ABG ABG pH 7.456 (7.320-7.450) H 06/05/21 20:06 POC ABG pCO2 43.4 mmHg (32.0-48.0) 06/05/21 20:06 ABG pCO2 29.0 mm Hg 05/30/21 22:32 POC ABG pO2 102.1 mmHg (83-108) 06/05/21 20:06 ABG pO2 141.8 mm Hg (80.0-90.0) H 05/30/21 22:32 POC ABG HCO3 29.9 06/05/21 20:06 ABG O2 Saturation 98.2 (0-100) 06/05/21 20:06 PT/INR, D-dimer D-Dimer 3584.01 ng/mlDDU (0-234) H 05/27/21 08:09 Abnormal lab findings: Abnormal Labs 05/23/21 05/23/21 05/23/21 18:48 18:48 18:48 WBC 11.8 H RBC 5.18 H Hgb Hct MCV MCH MCHC RDW Plt Count Seg Neuts % (Manual) 84.0 H Lymphocytes % (Manual) Nucleated RBC % Seg Neutrophils # Man 9.9 H Lymphocytes # (Manual) D-Dimer > 43755 H ABG pH POC ABG pCO2 POC ABG pO2 ABG pO2 ABG HCO3 ABG Base Excess ABG Hemoglobin ABG Oxyhemoglobin ABG Sodium ABG Potassium ABG Chloride ABG Glucose VBG pH Carboxyhemoglobin Sodium Potassium Chloride Carbon Dioxide BUN Creatinine Glucose POC Glucose Lactic Acid 2.30 H* Calcium Phosphorus Magnesium Ferritin Ammonia Lactate Dehydrogenase C-Reactive Protein Total Protein Albumin Arterial Blood Glucose Arterial Blood Ionized Calcium Urine WBC (Auto) Vancomycin Trough 05/23/21 05/23/21 05/23/21 18:48 18:48 18:48 WBC RBC Hgb Hct MCV MCH MCHC RDW Plt Count Seg Neuts % (Manual) Lymphocytes % (Manual) Nucleated RBC % Seg Neutrophils # Man Lymphocytes # (Manual) D-Dimer ABG pH POC ABG pCO2 POC ABG pO2 ABG pO2 ABG HCO3 ABG Base Excess ABG Hemoglobin ABG Oxyhemoglobin ABG Sodium ABG Potassium ABG Chloride ABG Glucose VBG pH Carboxyhemoglobin Sodium 151 H Potassium 5.1 H Chloride 113.2 H Carbon Dioxide 17 L BUN 180 H Creatinine 4.3 H Glucose 114 H POC Glucose Lactic Acid Calcium Phosphorus Magnesium Ferritin 2000.0 H Ammonia 22.0 L Lactate Dehydrogenase 577 H C-Reactive Protein 8.80 H Total Protein 9.4 H Albumin 3.0 L Arterial Blood Glucose Arterial Blood Ionized Calcium Urine WBC (Auto) Vancomycin Trough 05/23/21 05/24/21 05/24/21 21:06 02:09 02:09 WBC RBC Hgb Hct MCV MCH MCHC RDW Plt Count Seg Neuts % (Manual) Lymphocytes % (Manual) Nucleated RBC % Seg Neutrophils # Man Lymphocytes # (Manual) D-Dimer ABG pH POC ABG pCO2 POC ABG pO2 ABG pO2 ABG HCO3 ABG Base Excess ABG Hemoglobin ABG Oxyhemoglobin ABG Sodium ABG Potassium ABG Chloride ABG Glucose VBG pH 7.254 L Carboxyhemoglobin Sodium Potassium Chloride Carbon Dioxide BUN Creatinine Glucose POC Glucose Lactic Acid 2.10 H* 2.30 H* Calcium Phosphorus Magnesium Ferritin Ammonia Lactate Dehydrogenase C-Reactive Protein Total Protein Albumin Arterial Blood Glucose Arterial Blood Ionized Calcium Urine WBC (Auto) Vancomycin Trough 05/24/21 05/24/21 05/24/21 13:11 17:34 18:12 WBC RBC Hgb Hct MCV MCH MCHC RDW Plt Count Seg Neuts % (Manual) Lymphocytes % (Manual) Nucleated RBC % Seg Neutrophils # Man Lymphocytes # (Manual) D-Dimer ABG pH POC ABG pCO2 POC ABG pO2 ABG pO2 ABG HCO3 ABG Base Excess ABG Hemoglobin ABG Oxyhemoglobin ABG Sodium ABG Potassium ABG Chloride ABG Glucose VBG pH Carboxyhemoglobin Sodium 155 H Potassium 6.9 H* D 5.7 H Chloride 121.9 H Carbon Dioxide 20 L BUN 139 H Creatinine 2.7 H Glucose 139 H POC Glucose 153 H Lactic Acid Calcium Phosphorus Magnesium Ferritin Ammonia Lactate Dehydrogenase C-Reactive Protein Total Protein Albumin Arterial Blood Glucose Arterial Blood Ionized Calcium Urine WBC (Auto) Vancomycin Trough 05/25/21 05/25/21 05/26/21 11:33 11:33 03:15 WBC 13.8 H RBC 5.06 H Hgb Hct MCV MCH MCHC RDW Plt Count Seg Neuts % (Manual) Lymphocytes % (Manual) Nucleated RBC % Seg Neutrophils # Man Lymphocytes # (Manual) D-Dimer ABG pH POC ABG pCO2 POC ABG pO2 ABG pO2 ABG HCO3 ABG Base Excess ABG Hemoglobin ABG Oxyhemoglobin ABG Sodium ABG Potassium ABG Chloride ABG Glucose VBG pH Carboxyhemoglobin Sodium 164 H* D 166 H* Potassium 5.4 H 5.5 H Chloride 131.3 H 129.2 H Carbon Dioxide BUN 109 H 102 H Creatinine 1.9 H 1.8 H Glucose 117 H 113 H POC Glucose Lactic Acid Calcium Phosphorus Magnesium Ferritin Ammonia Lactate Dehydrogenase 711 H C-Reactive Protein 7.90 H Total Protein Albumin Arterial Blood Glucose Arterial Blood Ionized Calcium Urine WBC (Auto) Vancomycin Trough 05/26/21 05/26/21 05/26/21 03:15 03:15 03:15 WBC 13.1 H RBC 5.43 H Hgb 15.3 H Hct 48.5 H MCV MCH MCHC RDW 15.4 H Plt Count Seg Neuts % (Manual) Lymphocytes % (Manual) Nucleated RBC % Seg Neutrophils # Man Lymphocytes # (Manual) D-Dimer 6229.14 H ABG pH POC ABG pCO2 POC ABG pO2 ABG pO2 ABG HCO3 ABG Base Excess ABG Hemoglobin ABG Oxyhemoglobin ABG Sodium ABG Potassium ABG Chloride ABG Glucose VBG pH Carboxyhemoglobin Sodium Potassium Chloride Carbon Dioxide BUN Creatinine Glucose POC Glucose Lactic Acid Calcium Phosphorus Magnesium Ferritin 2991.0 H Ammonia Lactate Dehydrogenase C-Reactive Protein Total Protein Albumin Arterial Blood Glucose Arterial Blood Ionized Calcium Urine WBC (Auto) Vancomycin Trough 05/27/21 05/27/21 05/27/21 08:09 08:09 08:09 WBC 12.4 H RBC 5.27 H Hgb Hct 46.6 H MCV MCH MCHC 31 L RDW 15.7 H Plt Count Seg Neuts % (Manual) Lymphocytes % (Manual) Nucleated RBC % Seg Neutrophils # Stefan Lymphocytes # (Manual) D-Dimer 3584.01 H ABG pH POC ABG pCO2 POC ABG pO2 ABG pO2 ABG HCO3 ABG Base Excess ABG Hemoglobin ABG Oxyhemoglobin ABG Sodium ABG Potassium ABG Chloride ABG Glucose VBG pH Carboxyhemoglobin Sodium 174 H* Potassium Chloride 136.9 H Carbon Dioxide BUN 90 H Creatinine 1.8 H Glucose POC Glucose Lactic Acid Calcium Phosphorus Magnesium Ferritin Ammonia Lactate Dehydrogenase 642 H C-Reactive Protein 5.20 H Total Protein Albumin Arterial Blood Glucose Arterial Blood Ionized Calcium Urine WBC (Auto) Vancomycin Trough 05/27/21 05/28/21 05/28/21 08:09 07:31 07:31 WBC RBC Hgb Hct MCV MCH 27 L MCHC 31 L RDW Plt Count Seg Neuts % (Manual) 88.0 H Lymphocytes % (Manual) 11.0 L Nucleated RBC % Seg Neutrophils # Stefan 8.3 H Lymphocytes # (Manual) 1.0 L D-Dimer ABG pH POC ABG pCO2 POC ABG pO2 ABG pO2 ABG HCO3 ABG Base Excess ABG Hemoglobin ABG Oxyhemoglobin ABG Sodium ABG Potassium ABG Chloride ABG Glucose VBG pH Carboxyhemoglobin Sodium 162 H* D Potassium Chloride 125.8 H Carbon Dioxide BUN 72 H Creatinine 1.6 H Glucose 131 H POC Glucose Lactic Acid Calcium Phosphorus Magnesium 3.00 H Ferritin 2742.0 H Ammonia Lactate Dehydrogenase C-Reactive Protein Total Protein Albumin Arterial Blood Glucose Arterial Blood Ionized Calcium Urine WBC (Auto) Vancomycin Trough 05/29/21 05/29/2105/29/21 06:40 06:40 17:58 WBC 14.1 H RBC Hgb Hct MCV MCH 27 L MCHC 31 L RDW Plt Count Seg Neuts % (Manual) 85.0 H Lymphocytes % (Manual) 9.0 L Nucleated RBC % 1.0 H Seg Neutrophils # Man 12.0 H Lymphocytes # (Manual) D-Dimer ABG pH 7.505 H POC ABG pCO2 30.3 L POC ABG pO2 128.1 H ABG pO2 ABG HCO3 ABG Base Excess ABG Hemoglobin 11.9 L ABG Oxyhemoglobin ABG Sodium ABG Potassium ABG Chloride 113.0 H ABG Glucose 110 H VBG pH Carboxyhemoglobin Sodium 148 H D Potassium Chloride 111.3 H Carbon Dioxide 20 L BUN 45 H Creatinine Glucose POC Glucose Lactic Acid Calcium Phosphorus 2.10 L D Magnesium Ferritin Ammonia Lactate Dehydrogenase C-Reactive Protein Total Protein Albumin Arterial Blood Glucose 110 H Arterial Blood Ionized Calcium 4.5 L Urine WBC (Auto) Vancomycin Trough 05/30/21 05/30/21 05/30/21 01:00 06:06 13:48 WBC RBC Hgb Hct MCV MCH MCHC RDW Plt Count Seg Neuts % (Manual) Lymphocytes % (Manual) Nucleated RBC % Seg Neutrophils # Man Lymphocytes # (Manual) D-Dimer ABG pH POC ABG pCO2 POC ABG pO2 ABG pO2 90.9 H ABG HCO3 ABG Base Excess ABG Hemoglobin 11.8 L ABG Oxyhemoglobin ABG Sodium ABG Potassium ABG Chloride ABG Glucose VBG pH Carboxyhemoglobin Sodium 150 H Potassium Chloride 117.6 H Carbon Dioxide BUN 40 H Creatinine Glucose POC Glucose Lactic Acid Calcium 8.3 L Phosphorus Magnesium Ferritin Ammonia Lactate Dehydrogenase C-Reactive Protein Total Protein Albumin Arterial Blood Glucose Arterial Blood Ionized Calcium Urine WBC (Auto) 12.0 H Vancomycin Trough 05/30/21 05/31/21 05/31/21 22:32 02:22 02:22 WBC RBC Hgb 11.2 L Hct 34.8 L MCV MCH MCHC RDW Plt Count 127 L Seg Neuts % (Manual) 97.0 H Lymphocytes % (Manual) Nucleated RBC % Seg Neutrophils # Man 10.5 H Lymphocytes # (Manual) 0.0 L D-Dimer ABG pH 7.454 H POC ABG pCO2 POC ABG pO2 ABG pO2 141.8 H ABG HCO3 19.9 L ABG Base Excess -2.7 L ABG Hemoglobin ABG Oxyhemoglobin ABG Sodium ABG Potassium ABG Chloride ABG Glucose VBG pH Carboxyhemoglobin Sodium 152 H Potassium Chloride 118.9 H Carbon Dioxide 19 L BUN 48 H Creatinine 1.5 H Glucose 101 H POC Glucose Lactic Acid Calcium 8.3 L Phosphorus Magnesium Ferritin Ammonia Lactate Dehydrogenase C-Reactive Protein Total Protein Albumin Arterial Blood Glucose Arterial Blood Ionized Calcium Urine WBC (Auto) Vancomycin Trough 05/31/21 05/31/21 06/01/21 11:42 21:28 07:10 WBC RBC Hgb Hct MCV MCH MCHC RDW Plt Count Seg Neuts % (Manual) Lymphocytes % (Manual) Nucleated RBC % Seg Neutrophils # Man Lymphocytes # (Manual) D-Dimer ABG pH POC ABG pCO2 POC ABG pO2 ABG pO2 ABG HCO3 ABG Base Excess ABG Hemoglobin ABG Oxyhemoglobin ABG Sodium ABG Potassium ABG Chloride ABG Glucose VBG pH Carboxyhemoglobin Sodium 150 H Potassium Chloride 115.7 H Carbon Dioxide BUN 47 H Creatinine Glucose 115 H POC Glucose 161 H Lactic Acid Calcium Phosphorus Magnesium 2.50 H Ferritin Ammonia Lactate Dehydrogenase C-Reactive Protein Total Protein Albumin Arterial Blood Glucose Arterial Blood Ionized Calcium Urine WBC (Auto) Vancomycin Trough 20.2 H 06/01/21 06/01/21 06/01/21 07:10 07:54 10:39 WBC RBC Hgb 10.7 L Hct 33.5 L MCV MCH MCHC RDW Plt Count Seg Neuts % (Manual) 92.0 H Lymphocytes % (Manual) 4.0 L Nucleated RBC % Seg Neutrophils # Man Lymphocytes # (Manual) 0.3 L D-Dimer ABG pH POC ABG pCO2 POC ABG pO2 ABG pO2 ABG HCO3 ABG Base Excess ABG Hemoglobin ABG Oxyhemoglobin ABG Sodium ABG Potassium ABG Chloride ABG Glucose VBG pH Carboxyhemoglobin Sodium 152 H Potassium Chloride 117.6 H Carbon Dioxide BUN 50 H Creatinine Glucose 140 H POC Glucose 127 H Lactic Acid Calcium 8.3 L Phosphorus Magnesium Ferritin Ammonia Lactate Dehydrogenase C-Reactive Protein Total Protein Albumin Arterial Blood Glucose Arterial Blood Ionized Calcium Urine WBC (Auto) Vancomycin Trough 06/01/21 06/01/21 06/01/21 11:11 16:16 21:45 WBC RBC Hgb Hct MCV MCH MCHC RDW Plt Count Seg Neuts % (Manual) Lymphocytes % (Manual) Nucleated RBC % Seg Neutrophils # Man Lymphocytes # (Manual) D-Dimer ABG pH POC ABG pCO2 POC ABG pO2 ABG pO2 ABG HCO3 ABG Base Excess ABG Hemoglobin ABG Oxyhemoglobin ABG Sodium ABG Potassium ABG Chloride ABG Glucose VBG pH Carboxyhemoglobin Sodium Potassium Chloride Carbon Dioxide BUN Creatinine Glucose POC Glucose 120 H 129 H 150 H Lactic Acid Calcium Phosphorus Magnesium Ferritin Ammonia Lactate Dehydrogenase C-Reactive Protein Total Protein Albumin Arterial Blood Glucose Arterial Blood Ionized Calcium Urine WBC (Auto) Vancomycin Trough 06/02/21 06/02/21 06/02/21 06:53 06:53 07:52 WBC RBC Hgb 10.4 L Hct 32.4 L MCV MCH 27 L MCHC RDW Plt Count Seg Neuts % (Manual) 93.0 H Lymphocytes % (Manual) 3.0 L Nucleated RBC % Seg Neutrophils # Man Lymphocytes # (Manual) 0.2 L D-Dimer ABG pH POC ABG pCO2 POC ABG pO2 ABG pO2 ABG HCO3 ABG Base Excess ABG Hemoglobin ABG Oxyhemoglobin ABG Sodium ABG Potassium ABG Chloride ABG Glucose VBG pH Carboxyhemoglobin Sodium 149 H Potassium Chloride 112.6 H Carbon Dioxide BUN 54 H Creatinine Glucose 123 H POC Glucose 116 H Lactic Acid Calcium 8.2 L Phosphorus Magnesium Ferritin Ammonia Lactate Dehydrogenase C-Reactive Protein Total Protein Albumin Arterial Blood Glucose Arterial Blood Ionized Calcium Urine WBC (Auto) Vancomycin Trough 06/03/21 06/03/21 06/03/21 05:57 05:57 21:23 WBC RBC Hgb 10.7 L Hct 33.0 L MCV 83 L MCH 27 L MCHC RDW Plt Count Seg Neuts % (Manual) 88.0 H Lymphocytes % (Manual) 8.0 L Nucleated RBC % 2.0 H Seg Neutrophils # Man Lymphocytes # (Manual) 0.6 L D-Dimer ABG pH POC ABG pCO2 POC ABG pO2 39.0 L ABG pO2 ABG HCO3 ABG Base Excess ABG Hemoglobin ABG Oxyhemoglobin 69.1 L ABG Sodium 134.1 L ABG Potassium ABG Chloride ABG Glucose 135 H VBG pH Carboxyhemoglobin Sodium Potassium Chloride Carbon Dioxide BUN 36 H Creatinine Glucose 102 H POC Glucose Lactic Acid Calcium 8.0 L Phosphorus 2.20 L D Magnesium Ferritin Ammonia Lactate Dehydrogenase C-Reactive Protein Total Protein Albumin Arterial Blood Glucose 135 H Arterial Blood Ionized Calcium Urine WBC (Auto) Vancomycin Trough 06/04/21 06/04/21 06/04/21 07:04 07:04 17:42 WBC RBC Hgb 11.3 L Hct 34.9 L MCV MCH 27 L MCHC RDW Plt Count Seg Neuts % (Manual) Lymphocytes % (Manual) 5.0 L Nucleated RBC % Seg Neutrophils # Man 8.4 H Lymphocytes # (Manual) 0.5 L D-Dimer ABG pH POC ABG pCO2 POC ABG pO2 ABG pO2 ABG HCO3 ABG Base Excess ABG Hemoglobin ABG Oxyhemoglobin ABG Sodium ABG Potassium ABG Chloride ABG Glucose VBG pH Carboxyhemoglobin Sodium Potassium Chloride Carbon Dioxide BUN 27 H Creatinine Glucose POC Glucose 136 H Lactic Acid Calcium 8.2 L Phosphorus Magnesium Ferritin Ammonia Lactate Dehydrogenase C-Reactive Protein Total Protein Albumin Arterial Blood Glucose Arterial Blood Ionized Calcium Urine WBC (Auto) Vancomycin Trough 06/05/21 06/05/21 06/05/21 05:10 12:32 15:45 WBC RBC Hgb Hct MCV MCH MCHC RDW Plt Count Seg Neuts % (Manual) Lymphocytes % (Manual) Nucleated RBC % Seg Neutrophils # Man Lymphocytes # (Manual) D-Dimer ABG pH POC ABG pCO2 POC ABG pO2 ABG pO2 ABG HCO3 ABG Base Excess ABG Hemoglobin ABG Oxyhemoglobin ABG Sodium ABG Potassium ABG Chloride ABG Glucose VBG pH Carboxyhemoglobin Sodium Potassium 3.5 L Chloride Carbon Dioxide BUN 35 H Creatinine Glucose 130 H POC Glucose 122 H 119 H Lactic Acid Calcium 8.2 L Phosphorus Magnesium Ferritin Ammonia Lactate Dehydrogenase C-Reactive Protein Total Protein Albumin Arterial Blood Glucose Arterial Blood Ionized Calcium Urine WBC (Auto) Vancomycin Trough 06/05/21 06/05/21 06/06/21 20:06 21:27 00:04 WBC RBC Hgb Hct MCV MCH MCHC RDW Plt Count Seg Neuts % (Manual) Lymphocytes % (Manual) Nucleated RBC % Seg Neutrophils # Man Lymphocytes # (Manual) D-Dimer ABG pH 7.456 H POC ABG pCO2 POC ABG pO2 ABG pO2 ABG HCO3 ABG Base Excess ABG Hemoglobin 10.3 L ABG Oxyhemoglobin ABG Sodium ABG Potassium 3.1 L ABG Chloride ABG Glucose 125 H VBG pH Carboxyhemoglobin 0.3 L Sodium Potassium Chloride Carbon Dioxide BUN Creatinine Glucose POC Glucose 113 H Lactic Acid Calcium Phosphorus Magnesium Ferritin Ammonia Lactate Dehydrogenase C-Reactive Protein 19.60 H Total Protein Albumin Arterial Blood Glucose 125 H Arterial Blood Ionized Calcium Urine WBC (Auto) Vancomycin Trough 06/06/21 06/06/21 06/07/21 04:35 22:37 05:54 WBC RBC Hgb Hct MCV MCH MCHC RDW Plt Count Seg Neuts % (Manual) Lymphocytes % (Manual) Nucleated RBC % Seg Neutrophils # Man Lymphocytes # (Manual) D-Dimer ABG pH POC ABG pCO2 POC ABG pO2 ABG pO2 ABG HCO3 ABG Base Excess ABG Hemoglobin ABG Oxyhemoglobin ABG Sodium ABG Potassium ABG Chloride ABG Glucose VBG pH Carboxyhemoglobin Sodium Potassium Chloride Carbon Dioxide BUN 43 H Creatinine Glucose POC Glucose 114 H 130 H Lactic Acid Calcium 7.6 L Phosphorus Magnesium Ferritin Ammonia Lactate Dehydrogenase C-Reactive Protein Total Protein Albumin Arterial Blood Glucose Arterial Blood Ionized Calcium Urine WBC (Auto) Vancomycin Trough 06/07/21 06/07/21 06/07/21 07:32 10:03 11:36 WBC RBC 3.63 L Hgb 9.8 L Hct 30.3 L MCV 83 L MCH 27 L MCHC RDW Plt Count Seg Neuts % (Manual) Lymphocytes % (Manual) Nucleated RBC % Seg Neutrophils # Man Lymphocytes # (Manual) D-Dimer ABG pH POC ABG pCO2 POC ABG pO2 ABG pO2 ABG HCO3 ABG Base Excess ABG Hemoglobin ABG Oxyhemoglobin ABG Sodium ABG Potassium ABG Chloride ABG Glucose VBG pH Carboxyhemoglobin Sodium Potassium 3.2 L Chloride 108.5 H Carbon Dioxide BUN 36 H Creatinine Glucose 139 H POC Glucose 125 H Lactic Acid Calcium 8.0 L Phosphorus Magnesium Ferritin Ammonia Lactate Dehydrogenase C-Reactive Protein Total Protein Albumin Arterial Blood Glucose Arterial Blood Ionized Calcium Urine WBC (Auto) Vancomycin Trough 06/07/21 06/07/21 06/08/21 17:54 22:14 07:18 WBC RBC Hgb Hct MCV MCH MCHC RDW Plt Count Seg Neuts % (Manual) Lymphocytes % (Manual) Nucleated RBC % Seg Neutrophils # Man Lymphocytes # (Manual) D-Dimer ABG pH POC ABG pCO2 POC ABG pO2 ABG pO2 ABG HCO3 ABG Base Excess ABG Hemoglobin ABG Oxyhemoglobin ABG Sodium ABG Potassium ABG Chloride ABG Glucose VBG pH Carboxyhemoglobin Sodium 149 H Potassium Chloride 110.2 H Carbon Dioxide BUN 31 H Creatinine Glucose 131 H POC Glucose 121 H 131 H Lactic Acid Calcium 8.1 L Phosphorus Magnesium Ferritin Ammonia Lactate Dehydrogenase C-Reactive Protein Total Protein Albumin Arterial Blood Glucose Arterial Blood Ionized Calcium Urine WBC (Auto) Vancomycin Trough 06/08/21 06/08/21 07:45 12:07 WBC RBC Hgb Hct MCV MCH MCHC RDW Plt Count Seg Neuts % (Manual) Lymphocytes % (Manual) Nucleated RBC % Seg Neutrophils # Man Lymphocytes # (Manual) D-Dimer ABG pH POC ABG pCO2 POC ABG pO2 ABG pO2 ABG HCO3 ABG Base Excess ABG Hemoglobin ABG Oxyhemoglobin ABG Sodium ABG Potassium ABG Chloride ABG Glucose VBG pH Carboxyhemoglobin Sodium Potassium Chloride Carbon Dioxide BUN Creatinine Glucose POC Glucose 120 H 127 H Lactic Acid Calcium Phosphorus Magnesium Ferritin Ammonia Lactate Dehydrogenase C-Reactive Protein Total Protein Albumin Arterial Blood Glucose Arterial Blood Ionized Calcium Urine WBC (Auto) Vancomycin Trough Allied health notes reviewed: nursing
[2021-06-08] MEDS: DOCUSATE SODIUM 100 MG CAP PO SCH (15:25)
[2021-06-08] MEDS: metroNIDAZOLE/NS 500 MG/100 ML 500 MG/100 ML BAG IV SCH ×2 (15:26→20:10)
[2021-06-08] MEDS: DEXTROSE 5% IN WATER 1,000 ML IV SCH (17:00)
[2021-06-08] MEDS: CEFEPIME/NS 2 GM/100 ML 2 GM/100 ML BAG IV SCH ×3 (18:38→23:26)
[2021-06-08] MEDS: MORPHINE 2 MG/1 ML INJ IV PRN (21:57)
[2021-06-08] MEDS: methylPREDNISolone Sod Succinate 40 MG/1 ML INJ IV SCH (23:10)
[2021-06-09] MEDS: MORPHINE 2 MG/1 ML INJ IV PRN (01:47)
[2021-06-09] MEDS: metroNIDAZOLE/NS 500 MG/100 ML 500 MG/100 ML BAG IV SCH ×2 (04:17→13:34)
[2021-06-09] MEDS: CEFEPIME/NS 2 GM/100 ML 2 GM/100 ML BAG IV SCH ×2 (05:18→14:00)
[2021-06-09] MEDS: HEPARIN 5,000 UNIT/1 ML VIAL SUB-Q SCH ×2 (05:18→13:35)
[2021-06-09 06:14] LABS: Hematocrit 28.5 % (35.5-45.6); Hemoglobin 9.4 gm/dl (11.8-15.2); Mean Corpuscular HGB Conc 33 % (32-34); Mean Corpuscular Volume 84 fl (84-94); Platelet Count 156 K/mm3 (140-440); Red Blood Count 3.38 M/mm3 (3.65-5.03); Red Cell Distribution Width 14.5 % (13.2-15.2)
[2021-06-09 07:07] LABS: Alanine Aminotransferase 21 units/L (7-56); BUN/Creatinine Ratio 27; Blood Urea Nitrogen 32 mg/dL (9-20); Calcium 7.5 mg/dL (8.4-10.2); Hemolysis Index 2
[2021-06-09] MEDS: DEXTROSE 5% IN WATER 1,000 ML IV SCH (08:27)
--- NOTE | 2021-06-09 08:56 | XRay Report ---
CHEST 1 VIEW 06/09/2021 7:28 AM INDICATION / CLINICAL INFORMATION: Follow up on pulmonary infiltrates.. COMPARISON: 06/03/21 FINDINGS: SUPPORT DEVICES: Feeding tube is no longer present. HEART / MEDIASTINUM: Stable. LUNGS / PLEURA: Bilateral pulmonary opacities have improved slightly. No pneumothorax. ADDITIONAL FINDINGS: No significant additional findings. IMPRESSION: 1. Slight improvement in bilateral pulmonary opacities. Signer Name: Nolvia Mercedes MD Signed: 06/09/2021 8:51 AM Workstation Name: [id number]
[2021-06-09] MEDS: methylPREDNISolone Sod Succinate 40 MG/1 ML INJ IV SCH (09:19)
[2021-06-09] MEDS: DOCUSATE SODIUM 100 MG CAP PO SCH (09:19)
--- NOTE | 2021-06-09 09:20 | Progress Note ---
Assessment and Plan Impression: * Acute kidney injury secondary to ATN likely related to COVID 19 * Acute hypoxic respiratory failure secondary to COVID 19 PNA * Azotemia * Hyperkalemia * Metabolic acidosis * Hypernatremia Plan: * continue D5W at 75cc/hr for today, sodium improving * off baclofen * cr stable today at 1.2 * Keep MAP>65 * Management of COVID 19 PNA to primary team/ID * Dose medications for renal function * AM labs * Renal diet * follow up lytes prn * Prognosis guarded Subjective Date of service: 06/09/21 Principal diagnosis: Acute hypoxemic resp failure; Pneumonia; PUI COVID-19 infection Interval history: No acute changes noted, patient resting in bed this AM Objective - Vital Signs Vital signs: Vital Signs - 12hr 06/08/21 06/08/21 06/08/21 21:42 22:03 22:10 Temperature 103.0 F H Pulse Rate 147 H 151 H Respiratory 20 46 H Rate Blood Pressure 171/89 O2 Sat by Pulse 41 L 44 L 81 L Oximetry 06/09/21 06/09/21 06/09/21 02:20 03:42 03:59 Temperature Pulse Rate Respiratory 46 H Rate Blood Pressure O2 Sat by Pulse 98 96 96 Oximetry 06/09/21 06/09/21 04:51 05:06 Temperature 99.5 F Pulse Rate 127 H 123 H Respiratory 18 43 H Rate Blood Pressure 121/65 O2 Sat by Pulse 91 96 Oximetry - General Appearance General appearance: well-developed, appears stated age EENT: ATNC, PERRL Neck: no JVD Respiratory: Present: Clear to Ascultation Cardiology: regular, S1S2 Gastrointestinal: normoactive bowel sounds Integumentary: no rash, warm and dry Neurologic: no focal deficit - Lab 06/09/21 05:51 06/09/21 05:51 Most recent lab results ABG pH 7.456 (7.320-7.450) H 06/05/21 20:06 ABG pCO2 29.0 mm Hg 05/30/21 22:32 ABG pO2 141.8 mm Hg (80.0-90.0) H 05/30/21 22:32 ABG HCO3 19.9 mmol/L (20.0-26.0) L 05/30/21 22:32 ABG O2 Saturation 98.2 (0-100) 06/05/21 20:06 Calcium 7.5 mg/dL (8.4-10.2) L 06/09/21 05:51 Phosphorus 2.20 mg/dL (2.5-4.5) L D 06/03/21 05:57 Magnesium 2.30 mg/dL (1.7-2.3) 06/06/21 04:35 Medications & Allergies - Medications Allergies/Adverse Reactions: Allergies No Known Allergies Allergy (Unverified 02/12/17 15:47) Home Medications: Home Medications Medication Instructions Recorded Confirmed Last Taken Type No Known Home Medications [No 05/31/21 05/31/21 Unknown History Reported Home Medications] Active Medications: Generic Name Dose Route Start Last Admin Trade Name Freq PRN Reason Stop Dose Admin Acetaminophen 650 mg 05/29/21 07:05 06/03/21 21:32 Acetaminophen 325 Mg Tab PO 650 mg Q6H PRN Administration Pain, Mild (1-3) Acetaminophen 650 mg 06/03/21 08:21 06/03/21 08:42 Acetaminophen 650 Mg Rect Supp [place] 650 mg Q4H PRN Administration Pain, Mild (1-3) Albuterol/Ipratropium 1 ampul 06/07/21 20:00 06/08/21 23:24 Ipratropium/Albuterol Sulfate 3 Ml Ampul.Neb IH Not Given TIDRT MIKE Lipase/Protease/Amylase 1 each 06/03/21 12:23 Lipase 10,500/Protease 25,000/Amylase 43,750 (Units) Cap FEEDTUBE PRN PRN For Clogged Feeding Tube Docusate Sodium 100 mg 06/07/21 10:00 06/09/21 09:19 Docusate Sodium 100 Mg Cap PO Not Given DAILY MIKE Heparin Sodium (Porcine) 5,000 unit 05/24/21 06:00 06/09/21 05:18 Heparin 5,000 Unit/1 Ml Vial SUB-Q 5,000 unit Q8HR MIKE Administration Vancomycin HCl 1,250 mg/ 275 mls @ 166.667 mls/hr 06/07/21 12:00 06/08/21 23:14 Sodium Chloride IV 166.667 mls/hr Q18H MIKE Administration Dextrose 1,000 mls @ 75 mls/hr 06/08/21 11:00 06/09/21 08:27 D5w IV 75 mls/hr DIRECT MIKE Administration Metronidazole 500 mg in 100 mls @ 100 mls/hr 06/08/21 13:00 06/09/21 04:17 Flagyl 500 Mg/100 Ml IV 100 mls/hr Q8H MIKE Administration Protocol Cefepime HCl 2 gm in 100 mls @ 200 mls/hr 06/08/21 23:08 06/09/21 05:18 Cefepime/Ns 2 Gm/100 Ml IV 200 mls/hr Q8HR MIKE Administration Protocol Methylprednisolone Sodium Succinate 40 mg 06/08/21 22:00 06/09/21 09:19 Methylprednisolone Sod Succinate 40 Mg/1 Ml Inj IV 40 mg Q12HR MIKE Administration Morphine Sulfate 2 mg 05/23/21 22:01 06/09/21 01:47 Morphine 2 Mg/1 Ml Inj IV 2 mg Q4H PRN Administration Pain, Moderate (4-6) Ondansetron HCl 4 mg 06/04/21 13:41 06/07/21 12:15 Ondansetron 4 Mg/2 Ml Inj IV 4 mg Q4H PRN Administration Nausea And Vomiting Simple Syrup 15 ml 06/03/21 12:23 Simple Syrup 15 Ml FEEDTUBE PRN PRN Hypoglycemia Simple Syrup 30 ml 06/03/21 12:23 Simple Syrup 15 Ml FEEDTUBE PRN PRN Hypoglycemia Sodium Bicarbonate 325 mg 06/03/21 12:23 Sodium Bicarbonate 325 Mg Tab FEEDTUBE PRN PRN For Clogged Feeding Tube Sodium Chloride 10 ml 05/24/21 10:00 06/09/21 09:19 Sodium Chloride 0.9% 10 Ml Flush Syringe IV 10 ml BID MIKE Administration Sodium Chloride 10 ml 05/23/21 22:01 Sodium Chloride 0.9% 10 Ml Flush Syringe IV PRN PRN LINE FLUSH
[2021-06-09] MEDS: IPRATROPIUM/ALBUTEROL SULFATE 3 ML AMPUL.NEB IH SCH ×3 (11:23→20:03)
--- NOTE | 2021-06-09 11:53 | Progress Note ---
Assessment and Plan Cultures: SARS CoV2 PCR: Positive as outpatient. Negative here x 2 05/23/2021 blood culture: no growth 05/29/2021 blood culture no growth 05/30/2021 blood culture no growth 05/30/2021 urine culture [place] 05/31/2021 blood culture no growth 06/03/2021 blood culture no growth today A/P: 55/M with initially seen on 05/23/2021 due to bilateral pneumonia with positive Covid test outpatient but negative x2 inpatient noted with new fever and repeat CT chest shows bilateral basilar pneumonia with cavitation: #Sepsis: No fever since 06/04/2021. Likely secondary to bilateral pneumonia. #Bilateral pneumonia with cavitation: ? secondary to COVID-19, tested positive as outpatient, but negative here x 2. During the last week noted elevated procalcitonin from 0.3-->24 in the setting of resolving ANGELES. Also noted CRP from 5.2-->19. CT abdomen shows severe aspiration type pneumonia in both bases with a currently 30 lesion of 20 cm on the left lower lobe. #Acute hypoxic respiratory failure: On BiPAP. Likely due to pneumonia. VQ scan low probability for PE. #Recent ileus: Resolved. #Acute renal failure: Nephrology on board. Improving. #Hypernatremia: Per primary team/ renal improving #Tachycardia #Elevated ddimer: VQ low prob for PE Recs: -Taper off of steroids -Obtain CT of chest -Repeat procalcitonin pending result -Start cefepime and metronidazole -Continue vancomycin -Check MRSA PCR -Consider pulmonary evaluation for bronchoscopy if clinically not better Dayan Ferguson MD [facility] O: [phone] F: [phone] Subjective Date of service: 06/09/21 Principal diagnosis: Acute hypoxemic resp failure; Pneumonia; PUI COVID-19 infection Interval history: Febrile last night to 103 with a white count 3.9. All cultures remain negative. Imaging personally reviewed: Chest x-ray: Slight improvement in bilateral pulmonary opacities Objective - Exam Narrative Exam: General appearance: Alert on BiPAP Eyes: anicteric sclerae, moist conjunctivae; no lid-lag; PERRLA HENT: Normocephalic, Atraumatic; normal external ears, nares open, oropharynx limited Neck: supple, tracheal midline, no JVD Lungs: Rhonchi CV: RRR no murmur Abdomen: Soft, non-tender; no masses or hepatosplenomegaly Extremities: no edema, no cyanosis Skin: No rash. Psych: no agitated Neuro: alert follows commands - Constitutional Vitals: Vital Signs Temp Pulse Resp BP Pulse Ox 99.9 F H 106 H 35 H 148/69 97 06/09/21 11:05 06/09/21 11:24 06/09/21 11:24 06/09/21 11:05 06/09/21 11:15 Temperature -Last 24 Hours Temperature 99.9 F Temperature 99.5 F Temperature 103.0 F Temperature 98.6 F - Labs CBC & Chem 7: 06/09/21 05:51 06/09/21 05:51 Labs: Abnormal lab results 06/08/21 06/08/21 06/09/21 Range/Units 12:07 18:02 05:51 WBC 3.9 L (4.5-11.0) K/mm3 RBC 3.38 L (3.65-5.03) M/mm3 Hgb 9.4 L (11.8-15.2) gm/dl Hct 28.5 L (35.5-45.6) % Chloride (98-107) mmol/L BUN (9-20) mg/dL Glucose (75-100) mg/dL POC Glucose 127 H 148 H (70-105) mg/dL Calcium (8.4-10.2) mg/dL AST (5-40) units/L C-Reactive Protein (0.00-1.30) mg/dL Total Protein (6.3-8.2) g/dL Albumin (3.9-5) g/dL 06/09/21 06/09/21 Range/Units 05:51 11:37 WBC (4.5-11.0) K/mm3 RBC (3.65-5.03) M/mm3 Hgb (11.8-15.2) gm/dl Hct (35.5-45.6) % Chloride 108.4 H (98-107) mmol/L BUN 32 H (9-20) mg/dL Glucose 137 H (75-100) mg/dL POC Glucose 115 H (70-105) mg/dL Calcium 7.5 L (8.4-10.2) mg/dL AST 55 H (5-40) units/L C-Reactive Protein 4.10 H (0.00-1.30) mg/dL Total Protein 5.6 L (6.3-8.2) g/dL Albumin 2.0 L (3.9-5) g/dL
[2021-06-09] MEDS ORDERED: LORazepam 2 MG/ML VIAL IV ONE ×2 (12:30→22:15)
--- NOTE | 2021-06-09 13:01 | Progress Note ---
Assessment and Plan 55-year-old -[place] male who was diagnosed with COVID-19 on May 11, 2021 presents to the emergency room today with complaints of shortness of breath and decreased oral intake over the past 10 to 12 days. Patient also has known history of CVA about 20 years ago and it is unknown whether patient had any residual deficits. Patient has not been able to communicate well and most of the history was gotten from the ER staff. Initial oxygen saturation according to EMS was about 70% and patient was placed on nonrebreather. He was eventually placed on oxygen by nasal cannula upon arrival in the emergency room with significant improvement in his oxygen saturation. Work-up in the emergency room reveals a D-dimer greater than 10,000, sodium 151 potassium of 5.1, BUN of 180) and creatinine of 4.3. Patient had a lactic acid of 2.3. WBC was 11.8. CT scan of the head shows no acute abnormality. Chest x-ray shows mild patchy multifocal airspace disease throughout the lungs. No pleural effusion. VQ scan done showed low probability for pulmonary embolism. Patient being admitted with pneumonia possibly secondary to COVID-19, hypoxia and encephalopathy. Patients COVID 19 PCR reported negative. Patient presently sleeping on BIPAP 20/10, rate 14, FIO2 65% FIO2 100% and O2 saturation running 97%. Not responding to verbal stimuli. Patient running a low-grade temp 99.9F. No Leukocytosis. Blood pressure 148/69, Pulse 106. Chest xray 06/03/21: reported diffuse hazy airspace opacities bilaterally, mildly worsened compared to reference exam. No pneumothorax. Chest xray 06/09/21: reported slightly improved bilateral pulmonary opacities. No pneumothorax. Patient presently on Flagyl, Vancomycin, I/V solumedrol and S/C Heparin, and albuterol/atrovent aerosol treatments. - Patient Problems (1) Acute respiratory failure with hypoxia Current Visit: Yes Status: Acute Plan to address problem: Patient presently on Vapotherm 100%. BIPAP 20/10, rate 14, FIO2 65% Continue I/V solumedrol. Continue S/C heparin. Recommend GI prophylaxis. Continue albuterol/atrovent aerosol treatments. (2) Bilateral pneumonia Current Visit: Yes Status: Acute Plan to address problem: Patient is on Flagyl and vancomycin. (3) Suspected 2019 novel coronavirus infection Current Visit: Yes Status: Acute Plan to address problem: Patient coronavirus PCR is negative. Subjective Date of service: 06/09/21 Principal diagnosis: Acute hypoxemic resp failure; Pneumonia; PUI COVID-19 infection Interval history: 55-year-old -[place] male who was diagnosed with COVID-19 on May 11, 2021 presents to the emergency room today with complaints of shortness of breath and decreased oral intake over the past 10 to 12 days. Patient also has known history of CVA about 20 years ago and it is unknown whether patient had any residual deficits. Patient has not been able to communicate well and most of the history was gotten from the ER staff. Initial oxygen saturation according to EMS was about 70% and patient was placed on nonrebreather. He was eventually placed on oxygen by nasal cannula upon arrival in the emergency room with significant improvement in his oxygen saturation. Work-up in the emergency room reveals a D-dimer greater than 10,000, sodium 151 potassium of 5.1, BUN of 180) and creatinine of 4.3. Patient had a lactic acid of 2.3. WBC was 11.8. CT scan of the head shows no acute abnormality. Chest x-ray shows mild patchy multifocal airspace disease throughout the lungs. No pleural effusion. VQ scan done showed low probability for pulmonary embolism. Patient being admitted with pneumonia possibly secondary to COVID-19, hypoxia and encephalopathy. Patients COVID 19 PCR reported negative. Patient presently sleeping on BIPAP 20/10, rate 14, FIO2 65% FIO2 100% and O2 saturation running 97%. Not responding to verbal stimuli. Patient running a low-grade temp 99.9F. No Leukocytosis. Blood pressure 148/69, Pulse 106. Chest xray 06/03/21: reported diffuse hazy airspace opacities bilaterally, mildly worsened compared to reference exam. No pneumothorax. Chest xray 06/09/21: reported slightly improved bilateral pulmonary opacities. No pneumothorax. Patient presently on Flagyl, Vancomycin, I/V solumedrol and S/C Heparin, and albuterol/atrovent aerosol treatments. Objective Vital Signs - 12hr 06/09/21 06/09/21 06/09/21 02:20 03:42 03:59 Temperature Pulse Rate Pulse Rate [ Posterior Bilateral Throughout] Respiratory 46 H Rate Respiratory Rate [Posterior Bilateral Throughout] Blood Pressure O2 Sat by Pulse 98 96 96 Oximetry 06/09/21 06/09/21 06/09/21 04:51 05:06 10:00 Temperature 99.5 F Pulse Rate 127 H 123 H Pulse Rate [ Posterior Bilateral Throughout] Respiratory 18 43 H Rate Respiratory Rate [Posterior Bilateral Throughout] Blood Pressure 121/65 O2 Sat by Pulse 91 96 96 Oximetry 06/09/21 06/09/21 06/09/21 11:05 11:15 11:24 Temperature 99.9 F H Pulse Rate 110 H 114 H Pulse Rate [ 106 H Posterior Bilateral Throughout] Respiratory 24 24 Rate Respiratory 35 H Rate [Posterior Bilateral Throughout] Blood Pressure 148/69 O2 Sat by Pulse 98 97 Oximetry Constitutional: no acute distress, asleep, other (middle aged male resting on BIPAP) Eyes: non-icteric ENT: other (BIPAP FFM) Neck: supple, no JVD Effort: mildly labored Ascultation: Bilateral: diminished breath sounds (bases), rhonchi Percussion: Bilateral: not dull Cardiovascular: regular rate and rhythm Gastrointestinal: hypoactive bowel sounds, soft, non-tender, other (distended but very soft) Integumentary: normal Extremities: no cyanosis, no edema, pulses normal, no ischemia or petechiae Neurologic: pupils equal and round, CN II-XII normal, other (somnolent) Psychiatric: other (flat affect) CBC and BMP: 06/09/21 05:51 06/09/21 05:51 ABG, PT/INR, D-dimer: ABG ABG pH 7.456 (7.320-7.450) H 06/05/21 20:06 POC ABG pCO2 43.4 mmHg (32.0-48.0) 06/05/21 20:06 ABG pCO2 29.0 mm Hg 05/30/21 22:32 POC ABG pO2 102.1 mmHg (83-108) 06/05/21 20:06 ABG pO2 141.8 mm Hg (80.0-90.0) H 05/30/21 22:32 POC ABG HCO3 29.9 06/05/21 20:06 ABG O2 Saturation 98.2 (0-100) 06/05/21 20:06 PT/INR, D-dimer D-Dimer 3584.01 ng/mlDDU (0-234) H 05/27/21 08:09 Abnormal lab findings: Abnormal Labs 05/23/21 05/23/21 05/23/21 18:48 18:48 18:48 WBC 11.8 H RBC 5.18 H Hgb Hct MCV MCH MCHC RDW Plt Count Seg Neuts % (Manual) 84.0 H Lymphocytes % (Manual) Nucleated RBC % Seg Neutrophils # Man 9.9 H Lymphocytes # (Manual) D-Dimer > 76132 H ABG pH POC ABG pCO2 POC ABG pO2 ABG pO2 ABG HCO3 ABG Base Excess ABG Hemoglobin ABG Oxyhemoglobin ABG Sodium ABG Potassium ABG Chloride ABG Glucose VBG pH Carboxyhemoglobin Sodium Potassium Chloride Carbon Dioxide BUN Creatinine Glucose POC Glucose Lactic Acid 2.30 H* Calcium Phosphorus Magnesium Ferritin AST Ammonia Lactate Dehydrogenase C-Reactive Protein Total Protein Albumin Arterial Blood Glucose Arterial Blood Ionized Calcium Urine WBC (Auto) Vancomycin Trough 05/23/21 05/23/21 05/23/21 18:48 18:48 18:48 WBC RBC Hgb Hct MCV MCH MCHC RDW Plt Count Seg Neuts % (Manual) Lymphocytes % (Manual) Nucleated RBC % Seg Neutrophils # Man Lymphocytes # (Manual) D-Dimer ABG pH POC ABG pCO2 POC ABG pO2 ABG pO2 ABG HCO3 ABG Base Excess ABG Hemoglobin ABG Oxyhemoglobin ABG Sodium ABG Potassium ABG Chloride ABG Glucose VBG pH Carboxyhemoglobin Sodium 151 H Potassium 5.1 H Chloride 113.2 H Carbon Dioxide 17 L BUN 180 H Creatinine 4.3 H Glucose 114 H POC Glucose Lactic Acid Calcium Phosphorus Magnesium Ferritin 2000.0 H AST Ammonia 22.0 L Lactate Dehydrogenase 577 H C-Reactive Protein 8.80 H Total Protein 9.4 H Albumin 3.0 L Arterial Blood Glucose Arterial Blood Ionized Calcium Urine WBC (Auto) Vancomycin Trough 05/23/21 05/24/21 05/24/21 21:06 02:09 02:09 WBC RBC Hgb Hct MCV MCH MCHC RDW Plt Count Seg Neuts % (Manual) Lymphocytes % (Manual) Nucleated RBC % Seg Neutrophils # Man Lymphocytes # (Manual) D-Dimer ABG pH POC ABG pCO2 POC ABG pO2 ABG pO2 ABG HCO3 ABG Base Excess ABG Hemoglobin ABG Oxyhemoglobin ABG Sodium ABG Potassium ABG Chloride ABG Glucose VBG pH 7.254 L Carboxyhemoglobin Sodium Potassium Chloride Carbon Dioxide BUN Creatinine Glucose POC Glucose Lactic Acid 2.10 H* 2.30 H* Calcium Phosphorus Magnesium Ferritin AST Ammonia Lactate Dehydrogenase C-Reactive Protein Total Protein Albumin Arterial Blood Glucose Arterial Blood Ionized Calcium Urine WBC (Auto) Vancomycin Trough 05/24/21 05/24/21 05/24/21 13:11 17:34 18:12 WBC RBC Hgb Hct MCV MCH MCHC RDW Plt Count Seg Neuts % (Manual) Lymphocytes % (Manual) Nucleated RBC % Seg Neutrophils # Man Lymphocytes # (Manual) D-Dimer ABG pH POC ABG pCO2 POC ABG pO2 ABG pO2 ABG HCO3 ABG Base Excess ABG Hemoglobin ABG Oxyhemoglobin ABG Sodium ABG Potassium ABG Chloride ABG Glucose VBG pH Carboxyhemoglobin Sodium 155 H Potassium 6.9 H* D 5.7 H Chloride 121.9 H Carbon Dioxide 20 L BUN 139 H Creatinine 2.7 H Glucose 139 H POC Glucose 153 H Lactic Acid Calcium Phosphorus Magnesium Ferritin AST Ammonia Lactate Dehydrogenase C-Reactive Protein Total Protein Albumin Arterial Blood Glucose Arterial Blood Ionized Calcium Urine WBC (Auto) Vancomycin Trough 05/25/21 05/25/21 05/26/21 11:33 11:33 03:15 WBC 13.8 H RBC 5.06 H Hgb Hct MCV MCH MCHC RDW Plt Count Seg Neuts % (Manual) Lymphocytes % (Manual) Nucleated RBC % Seg Neutrophils # Man Lymphocytes # (Manual) D-Dimer ABG pH POC ABG pCO2 POC ABG pO2 ABG pO2 ABG HCO3 ABG Base Excess ABG Hemoglobin ABG Oxyhemoglobin ABG Sodium ABG Potassium ABG Chloride ABG Glucose VBG pH Carboxyhemoglobin Sodium 164 H* D 166 H* Potassium 5.4 H 5.5 H Chloride 131.3 H 129.2 H Carbon Dioxide BUN 109 H 102 H Creatinine 1.9 H 1.8 H Glucose 117 H 113 H POC Glucose Lactic Acid Calcium Phosphorus Magnesium Ferritin AST Ammonia Lactate Dehydrogenase 711 H C-Reactive Protein 7.90 H Total Protein Albumin Arterial Blood Glucose Arterial Blood Ionized Calcium Urine WBC (Auto) Vancomycin Trough 05/26/21 05/26/21 05/26/21 03:15 03:15 03:15 WBC 13.1 H RBC 5.43 H Hgb 15.3 H Hct 48.5 H MCV MCH MCHC RDW 15.4 H Plt Count Seg Neuts % (Manual) Lymphocytes % (Manual) Nucleated RBC % Seg Neutrophils # Man Lymphocytes # (Manual) D-Dimer 6229.14 H ABG pH POC ABG pCO2 POC ABG pO2 ABG pO2 ABG HCO3 ABG Base Excess ABG Hemoglobin ABG Oxyhemoglobin ABG Sodium ABG Potassium ABG Chloride ABG Glucose VBG pH Carboxyhemoglobin Sodium Potassium Chloride Carbon Dioxide BUN Creatinine Glucose POC Glucose Lactic Acid Calcium Phosphorus Magnesium Ferritin 2991.0 H AST Ammonia Lactate Dehydrogenase C-Reactive Protein Total Protein Albumin Arterial Blood Glucose Arterial Blood Ionized Calcium Urine WBC (Auto) Vancomycin Trough 05/27/21 05/27/21 05/27/21 08:09 08:09 08:09 WBC 12.4 H RBC 5.27 H Hgb Hct 46.6 H MCV MCH MCHC 31 L RDW 15.7 H Plt Count Seg Neuts % (Manual) Lymphocytes % (Manual) Nucleated RBC % Seg Neutrophils # Man Lymphocytes # (Manual) D-Dimer 3584.01 H ABG pH POC ABG pCO2 POC ABG pO2 ABG pO2 ABG HCO3 ABG Base Excess ABG Hemoglobin ABG Oxyhemoglobin ABG Sodium ABG Potassium ABG Chloride ABG Glucose VBG pH Carboxyhemoglobin Sodium 174 H* Potassium Chloride 136.9 H Carbon Dioxide BUN 90 H Creatinine 1.8 H Glucose POC Glucose Lactic Acid Calcium Phosphorus Magnesium Ferritin AST Ammonia Lactate Dehydrogenase 642 H C-Reactive Protein 5.20 H Total Protein Albumin Arterial Blood Glucose Arterial Blood Ionized Calcium Urine WBC (Auto) Vancomycin Trough 05/27/21 05/28/21 05/28/21 08:09 07:31 07:31 WBC RBC Hgb Hct MCV MCH 27 L MCHC 31 L RDW Plt Count Seg Neuts % (Manual) 88.0 H Lymphocytes % (Manual) 11.0 L Nucleated RBC % Seg Neutrophils # Man 8.3 H Lymphocytes # (Manual) 1.0 L D-Dimer ABG pH POC ABG pCO2 POC ABG pO2 ABG pO2 ABG HCO3 ABG Base Excess ABG Hemoglobin ABG Oxyhemoglobin ABG Sodium ABG Potassium ABG Chloride ABG Glucose VBG pH Carboxyhemoglobin Sodium 162 H* D Potassium Chloride 125.8 H Carbon Dioxide BUN 72 H Creatinine 1.6 H Glucose 131 H POC Glucose Lactic Acid Calcium Phosphorus Magnesium 3.00 H Ferritin 2742.0 H AST Ammonia Lactate Dehydrogenase C-Reactive Protein Total Protein Albumin Arterial Blood Glucose Arterial Blood Ionized Calcium Urine WBC (Auto) Vancomycin Trough 05/29/21 05/29/21 05/29/21 06:40 06:40 17:58 WBC 14.1 H RBC Hgb Hct MCV MCH 27 L MCHC 31 L RDW Plt Count Seg Neuts % (Manual) 85.0 H Lymphocytes % (Manual) 9.0 L Nucleated RBC % 1.0 H Seg Neutrophils # Man 12.0 H Lymphocytes # (Manual) D-Dimer ABG pH 7.505 H POC ABG pCO2 30.3 L POC ABG pO2 128.1 H ABG pO2 ABG HCO3 ABG Base Excess ABG Hemoglobin 11.9 L ABG Oxyhemoglobin ABG Sodium ABG Potassium ABG Chloride 113.0 H ABG Glucose 110 H VBG pH Carboxyhemoglobin Sodium 148 H D Potassium Chloride 111.3 H Carbon Dioxide 20 L BUN 45 H Creatinine Glucose POC Glucose Lactic Acid Calcium Phosphorus 2.10 L D Magnesium Ferritin AST Ammonia Lactate Dehydrogenase C-Reactive Protein Total Protein Albumin Arterial Blood Glucose 110 H Arterial Blood Ionized Calcium 4.5 L Urine WBC (Auto) Vancomycin Trough 05/30/21 05/30/21 05/30/21 01:00 06:06 13:48 WBC RBC Hgb Hct MCV MCH MCHC RDW Plt Count Seg Neuts % (Manual) Lymphocytes % (Manual) Nucleated RBC % Seg Neutrophils # Man Lymphocytes # (Manual) D-Dimer ABG pH POC ABG pCO2 POC ABG pO2 ABG pO2 90.9 H ABG HCO3 ABG Base Excess ABG Hemoglobin 11.8 L ABG Oxyhemoglobin ABG Sodium ABG Potassium ABG Chloride ABG Glucose VBG pH Carboxyhemoglobin Sodium 150 H Potassium Chloride 117.6 H Carbon Dioxide BUN 40 H Creatinine Glucose POC Glucose Lactic Acid Calcium 8.3 L Phosphorus Magnesium Ferritin AST Ammonia Lactate Dehydrogenase C-Reactive Protein Total Protein Albumin Arterial Blood Glucose Arterial Blood Ionized Calcium Urine WBC (Auto) 12.0 H Vancomycin Trough 05/30/21 05/31/21 05/31/21 22:32 02:22 02:22 WBC RBC Hgb 11.2 L Hct 34.8 L MCV MCH MCHC RDW Plt Count 127 L Seg Neuts % (Manual) 97.0 H Lymphocytes % (Manual) Nucleated RBC % Seg Neutrophils # Man 10.5 H Lymphocytes # (Manual) 0.0 L D-Dimer ABG pH 7.454 H POC ABG pCO2 POC ABG pO2 ABG pO2 141.8 H ABG HCO3 19.9 L ABG Base Excess -2.7 L ABG Hemoglobin ABG Oxyhemoglobin ABG Sodium ABG Potassium ABG Chloride ABG Glucose VBG pH Carboxyhemoglobin Sodium 152 H Potassium Chloride 118.9 H Carbon Dioxide 19 L BUN 48 H Creatinine 1.5 H Glucose 101 H POC Glucose Lactic Acid Calcium 8.3 L Phosphorus Magnesium Ferritin AST Ammonia Lactate Dehydrogenase C-Reactive Protein Total Protein Albumin Arterial Blood Glucose Arterial Blood Ionized Calcium Urine WBC (Auto) Vancomycin Trough 05/31/21 05/31/21 06/01/21 11:42 21:28 07:10 WBC RBC Hgb Hct MCV MCH MCHC RDW Plt Count Seg Neuts % (Manual) Lymphocytes % (Manual) Nucleated RBC % Seg Neutrophils # Man Lymphocytes # (Manual) D-Dimer ABG pH POC ABG pCO2 POC ABG pO2 ABG pO2 ABG HCO3 ABG Base Excess ABG Hemoglobin ABG Oxyhemoglobin ABG Sodium ABG Potassium ABG Chloride ABG Glucose VBG pH Carboxyhemoglobin Sodium 150 H Potassium Chloride 115.7 H Carbon Dioxide BUN 47 H Creatinine Glucose 115 H POC Glucose 161 H Lactic Acid Calcium Phosphorus Magnesium 2.50 H Ferritin AST Ammonia Lactate Dehydrogenase C-Reactive Protein Total Protein Albumin Arterial Blood Glucose Arterial Blood Ionized Calcium Urine WBC (Auto) Vancomycin Trough 20.2 H 06/01/21 06/01/21 06/01/21 07:10 07:54 10:39 WBC RBC Hgb 10.7 L Hct 33.5 L MCV MCH MCHC RDW Plt Count Seg Neuts % (Manual) 92.0 H Lymphocytes % (Manual) 4.0 L Nucleated RBC % Seg Neutrophils # Man Lymphocytes # (Manual) 0.3 L D-Dimer ABG pH POC ABG pCO2 POC ABG pO2 ABG pO2 ABG HCO3 ABG Base Excess ABG Hemoglobin ABG Oxyhemoglobin ABG Sodium ABG Potassium ABG Chloride ABG Glucose VBG pH Carboxyhemoglobin Sodium 152 H Potassium Chloride 117.6 H Carbon Dioxide BUN 50 H Creatinine Glucose 140 H POC Glucose 127 H Lactic Acid Calcium 8.3 L Phosphorus Magnesium Ferritin AST Ammonia Lactate Dehydrogenase C-Reactive Protein Total Protein Albumin Arterial Blood Glucose Arterial Blood Ionized Calcium Urine WBC (Auto) Vancomycin Trough 06/01/21 06/01/21 06/01/21 11:11 16:16 21:45 WBC RBC Hgb Hct MCV MCH MCHC RDW Plt Count Seg Neuts % (Manual) Lymphocytes % (Manual) Nucleated RBC % Seg Neutrophils # Man Lymphocytes # (Manual) D-Dimer ABG pH POC ABG pCO2 POC ABG pO2 ABG pO2 ABG HCO3 ABG Base Excess ABG Hemoglobin ABG Oxyhemoglobin ABG Sodium ABG Potassium ABG Chloride ABG Glucose VBG pH Carboxyhemoglobin Sodium Potassium Chloride Carbon Dioxide BUN Creatinine Glucose POC Glucose 120 H 129 H 150 H Lactic Acid Calcium Phosphorus Magnesium Ferritin AST Ammonia Lactate Dehydrogenase C-Reactive Protein Total Protein Albumin Arterial Blood Glucose Arterial Blood Ionized Calcium Urine WBC (Auto) Vancomycin Trough 06/02/21 06/02/21 06/02/21 06:53 06:53 07:52 WBC RBC Hgb 10.4 L Hct 32.4 L MCV MCH 27 L MCHC RDW Plt Count Seg Neuts % (Manual) 93.0 H Lymphocytes % (Manual) 3.0 L Nucleated RBC % Seg Neutrophils # Man Lymphocytes # (Manual) 0.2 L D-Dimer ABG pH POC ABG pCO2 POC ABG pO2 ABG pO2 ABG HCO3 ABG Base Excess ABG Hemoglobin ABG Oxyhemoglobin ABG Sodium ABG Potassium ABG Chloride ABG Glucose VBG pH Carboxyhemoglobin Sodium 149 H Potassium Chloride 112.6 H Carbon Dioxide BUN 54 H Creatinine Glucose 123 H POC Glucose 116 H Lactic Acid Calcium 8.2 L Phosphorus Magnesium Ferritin AST Ammonia Lactate Dehydrogenase C-Reactive Protein Total Protein Albumin Arterial Blood Glucose Arterial Blood Ionized Calcium Urine WBC (Auto) Vancomycin Trough 06/03/21 06/03/21 06/03/21 05:57 05:57 21:23 WBC RBC Hgb 10.7 L Hct 33.0 L MCV 83 L MCH 27 L MCHC RDW Plt Count Seg Neuts % (Manual) 88.0 H Lymphocytes % (Manual) 8.0 L Nucleated RBC % 2.0 H Seg Neutrophils # Man Lymphocytes # (Manual) 0.6 L D-Dimer ABG pH POC ABG pCO2 POC ABG pO2 39.0 L ABG pO2 ABG HCO3 ABG Base Excess ABG Hemoglobin ABG Oxyhemoglobin 69.1 L ABG Sodium 134.1 L ABG Potassium ABG Chloride ABG Glucose 135 H VBG pH Carboxyhemoglobin Sodium Potassium Chloride Carbon Dioxide BUN 36 H Creatinine Glucose 102 H POC Glucose Lactic Acid Calcium 8.0 L Phosphorus 2.20 L D Magnesium Ferritin AST Ammonia Lactate Dehydrogenase C-Reactive Protein Total Protein Albumin Arterial Blood Glucose 135 H Arterial Blood Ionized Calcium Urine WBC (Auto) Vancomycin Trough 06/04/21 06/04/21 06/04/21 07:04 07:04 17:42 WBC RBC Hgb 11.3 L Hct 34.9 L MCV MCH 27 L MCHC RDW Plt Count Seg Neuts % (Manual) Lymphocytes % (Manual) 5.0 L Nucleated RBC % Seg Neutrophils # Man 8.4 H Lymphocytes # (Manual) 0.5 L D-Dimer ABG pH POC ABG pCO2 POC ABG pO2 ABG pO2 ABG HCO3 ABG Base Excess ABG Hemoglobin ABG Oxyhemoglobin ABG Sodium ABG Potassium ABG Chloride ABG Glucose VBG pH Carboxyhemoglobin Sodium Potassium Chloride Carbon Dioxide BUN 27 H Creatinine Glucose POC Glucose 136 H Lactic Acid Calcium 8.2 L Phosphorus Magnesium Ferritin AST Ammonia Lactate Dehydrogenase C-Reactive Protein Total Protein Albumin Arterial Blood Glucose Arterial Blood Ionized Calcium Urine WBC (Auto) Vancomycin Trough 06/05/21 06/05/21 06/05/21 05:10 12:32 15:45 WBC RBC Hgb Hct MCV MCH MCHC RDW Plt Count Seg Neuts % (Manual) Lymphocytes % (Manual) Nucleated RBC % Seg Neutrophils # Man Lymphocytes # (Manual) D-Dimer ABG pH POC ABG pCO2 POC ABG pO2 ABG pO2 ABG HCO3 ABG Base Excess ABG Hemoglobin ABG Oxyhemoglobin ABG Sodium ABG Potassium ABG Chloride ABG Glucose VBG pH Carboxyhemoglobin Sodium Potassium 3.5 L Chloride Carbon Dioxide BUN 35 H Creatinine Glucose 130 H POC Glucose 122 H 119 H Lactic Acid Calcium 8.2 L Phosphorus Magnesium Ferritin AST Ammonia Lactate Dehydrogenase C-Reactive Protein Total Protein Albumin Arterial Blood Glucose Arterial Blood Ionized Calcium Urine WBC (Auto) Vancomycin Trough 06/05/21 06/05/21 06/06/21 20:06 21:27 00:04 WBC RBC Hgb Hct MCV MCH MCHC RDW Plt Count Seg Neuts % (Manual) Lymphocytes % (Manual) Nucleated RBC % Seg Neutrophils # Man Lymphocytes # (Manual) D-Dimer ABG pH 7.456 H POC ABG pCO2 POC ABG pO2 ABG pO2 ABG HCO3 ABG Base Excess ABG Hemoglobin 10.3 L ABG Oxyhemoglobin ABG Sodium ABG Potassium 3.1 L ABG Chloride ABG Glucose 125 H VBG pH Carboxyhemoglobin 0.3 L Sodium Potassium Chloride Carbon Dioxide BUN Creatinine Glucose POC Glucose 113 H Lactic Acid Calcium Phosphorus Magnesium Ferritin AST Ammonia Lactate Dehydrogenase C-Reactive Protein 19.60 H Total Protein Albumin Arterial Blood Glucose 125 H Arterial Blood Ionized Calcium Urine WBC (Auto) Vancomycin Trough 06/06/21 06/06/21 06/07/21 04:35 22:37 05:54 WBC RBC Hgb Hct MCV MCH MCHC RDW Plt Count Seg Neuts % (Manual) Lymphocytes % (Manual) Nucleated RBC % Seg Neutrophils # Man Lymphocytes # (Manual) D-Dimer ABG pH POC ABG pCO2 POC ABG pO2 ABG pO2 ABG HCO3 ABG Base Excess ABG Hemoglobin ABG Oxyhemoglobin ABG Sodium ABG Potassium ABG Chloride ABG Glucose VBG pH Carboxyhemoglobin Sodium Potassium Chloride Carbon Dioxide BUN 43 H Creatinine Glucose POC Glucose 114 H 130 H Lactic Acid Calcium 7.6 L Phosphorus Magnesium Ferritin AST Ammonia Lactate Dehydrogenase C-Reactive Protein Total Protein Albumin Arterial Blood Glucose Arterial Blood Ionized Calcium Urine WBC (Auto) Vancomycin Trough 06/07/21 06/07/21 06/07/21 07:32 10:03 11:36 WBC RBC 3.63 L Hgb 9.8 L Hct 30.3 L MCV 83 L MCH 27 L MCHC RDW Plt Count Seg Neuts % (Manual) Lymphocytes % (Manual) Nucleated RBC % Seg Neutrophils # Man Lymphocytes # (Manual) D-Dimer ABG pH POC ABG pCO2 POC ABG pO2 ABG pO2 ABG HCO3 ABG Base Excess ABG Hemoglobin ABG Oxyhemoglobin ABG Sodium ABG Potassium ABG Chloride ABG Glucose VBG pH Carboxyhemoglobin Sodium Potassium 3.2 L Chloride 108.5 H Carbon Dioxide BUN 36 H Creatinine Glucose 139 H POC Glucose 125 H Lactic Acid Calcium 8.0 L Phosphorus Magnesium Ferritin AST Ammonia Lactate Dehydrogenase C-Reactive Protein Total Protein Albumin Arterial Blood Glucose Arterial Blood Ionized Calcium Urine WBC (Auto) Vancomycin Trough 06/07/21 06/07/21 06/08/21 17:54 22:14 07:18 WBC RBC Hgb Hct MCV MCH MCHC RDW Plt Count Seg Neuts % (Manual) Lymphocytes % (Manual) Nucleated RBC % Seg Neutrophils # Man Lymphocytes # (Manual) D-Dimer ABG pH POC ABG pCO2 POC ABG pO2 ABG pO2 ABG HCO3 ABG Base Excess ABG Hemoglobin ABG Oxyhemoglobin ABG Sodium ABG Potassium ABG Chloride ABG Glucose VBG pH Carboxyhemoglobin Sodium 149 H Potassium Chloride 110.2 H Carbon Dioxide BUN 31 H Creatinine Glucose 131 H POC Glucose 121 H 131 H Lactic Acid Calcium 8.1 L Phosphorus Magnesium Ferritin AST Ammonia Lactate Dehydrogenase C-Reactive Protein Total Protein Albumin Arterial Blood Glucose Arterial Blood Ionized Calcium Urine WBC (Auto) Vancomycin Trough 06/08/21 06/08/21 06/08/21 07:45 12:07 18:02 WBC RBC Hgb Hct MCV MCH MCHC RDW Plt Count Seg Neuts % (Manual) Lymphocytes % (Manual) Nucleated RBC % Seg Neutrophils # Man Lymphocytes # (Manual) D-Dimer ABG pH POC ABG pCO2 POC ABG pO2 ABG pO2 ABG HCO3 ABG Base Excess ABG Hemoglobin ABG Oxyhemoglobin ABG Sodium ABG Potassium ABG Chloride ABG Glucose VBG pH Carboxyhemoglobin Sodium Potassium Chloride Carbon Dioxide BUN Creatinine Glucose POC Glucose 120 H 127 H 148 H Lactic Acid Calcium Phosphorus Magnesium Ferritin AST Ammonia Lactate Dehydrogenase C-Reactive Protein Total Protein Albumin Arterial Blood Glucose Arterial Blood Ionized Calcium Urine WBC (Auto) Vancomycin Trough 06/09/21 06/09/21 06/09/21 05:51 05:51 11:37 WBC 3.9 L RBC 3.38 L Hgb 9.4 L Hct 28.5 L MCV MCH MCHC RDW Plt Count Seg Neuts % (Manual) Lymphocytes % (Manual) Nucleated RBC % Seg Neutrophils # Man Lymphocytes # (Manual) D-Dimer ABG pH POC ABG pCO2 POC ABG pO2 ABG pO2 ABG HCO3 ABG Base Excess ABG Hemoglobin ABG Oxyhemoglobin ABG Sodium ABG Potassium ABG Chloride ABG Glucose VBG pH Carboxyhemoglobin Sodium Potassium Chloride 108.4 H Carbon Dioxide BUN 32 H Creatinine Glucose 137 H POC Glucose 115 H Lactic Acid Calcium 7.5 L Phosphorus Magnesium Ferritin AST 55 H Ammonia Lactate Dehydrogenase C-Reactive Protein 4.10 H Total Protein 5.6 L Albumin 2.0 L Arterial Blood Glucose Arterial Blood Ionized Calcium Urine WBC (Auto) Vancomycin Trough Chest x-ray: report reviewed, image reviewed Additional Studies: CHEST 1 VIEW 06/09/2021 7:28 AM INDICATION / CLINICAL INFORMATION: Follow up on pulmonary infiltrates.. COMPARISON: 06/03/21 FINDINGS: SUPPORT DEVICES: Feeding tube is no longer present. HEART / MEDIASTINUM: Stable. LUNGS / PLEURA: Bilateral pulmonary opacities have improved slightly. No pneumothorax. ADDITIONAL FINDINGS: No significant additional findings. IMPRESSION: 1. Slight improvement in bilateral pulmonary opacities. Allied health notes reviewed: nursing
--- NOTE | 2021-06-09 13:28 | Progress Note ---
Assessment and Plan Assessment and plan: #Acute hypoxic respiratory failure -Currently on BiPAP, will maintain SpO2 >90% -VQ scan low probability for PE on admission -continue methylprednisone 40 mg every 12 hours; will decrease to 40 mg daily starting tomorrow -s/p 1 dose of Lasix -TTE 06/06: LVEF 55 to 60%, no valvular or chamber abnormalities -Pulmonary consulted, recommendations appreciated -patient continues to deteriorate will likely need bronchoscopy to address the cavitary lesion #Pneumonia -CT abdomen pelvis revealed severe bilateral pneumonia and a cavitary lesion in the left lower lobe -likely secondary to aspiration during ileus -CT chest ordered -CRP 19.6 and procal 24.30, repeat pending -continue vancomycin, cefepime and flagyl per ID recommendations -completed azithromycin and Rocephin in past #Severe sepsis -repeat blood cultures no growth to date -procalcitonin 24.30, repeat pending -continue vancomycin, cefepime and flagyl -s/p zosyn -likely 2/2 to PNA #COVID-19 infection -Diagnosed on 05/11 -s/p 10 days of steroids, restarted on 06/04 due to worsening Pulmonary status #Igzkfizkceixh-ogvtyvhg-pkuahh secondary to poor oral intake #Acute encephalopathy-Resolved #ANGELES, resolved #Hyperkalemia, resolved #Ileus-resolved #Lactic acidosis-resolved #Discharge planning -Patient and family agreed to the home with home health upon discharge -will continue to wean oxygen to at least 4 L/min prior to discharge Disposition Plan: Continue medical management Total Time Spent with Patient (Minutes): 30 minutes History Interval history: Patient with tachycardia, tachypnea and respiratory distress overnight. Emelina samayoa on BiPAP. Patient alert and oriented. No complaints at this time. Hospitalist Physical - Physical exam Narrative exam: GENERAL: Thin male. Lying in bed in no acute distress. HEENT: BiPAP CHEST/LUNGS: Coarse breath sounds bilaterally. No use of assessory muscles of breathing. HEART/CARDIOVASCULAR: Tachycardic. No murmur, rubs or gallops appreciated. ABDOMEN: +BS. NT/ND. EXTREMITIES: No cyanosis, clubbing or edema. PSYCH: Cooperative. - Constitutional Vitals: Temp Pulse Resp BP Pulse Ox 99.9 F H 106 H 35 H 148/69 97 06/09/21 11:05 06/09/21 11:24 10/04/21 11:24 06/09/21 11:05 06/09/21 11:15 General appearance: Present: no acute distress, cachectic - Allied Health Allied health notes reviewed: nursing HEART Score - HEART Score EKG: Non-specific Age: 45-65 Risk factors: 1-2 risk factors Troponin: Troponin T < 0.010 ng/mL (0.00-0.029) 05/23/21 18:48 - Critical Actions Critical Actions: 0-3 pts:0.9-1.7%risk of adverse cardiac event.Candidate for discharge Results - Labs CBC & Chem 7: 06/09/21 05:51 06/09/21 05:51 Labs: Laboratory Last Values WBC 3.9 K/mm3 (4.5-11.0) L 06/09/21 05:51 RBC 3.38 M/mm3 (3.65-5.03) L 06/09/21 05:51 Hgb 9.4 gm/dl (11.8-15.2) L 06/09/21 05:51 Hct 28.5 % (35.5-45.6) L 06/09/21 05:51 MCV 84 fl (84-94) 06/09/21 05:51 MCH 28 pg (28-32) 06/09/21 05:51 MCHC 33 % (32-34) 06/09/21 05:51 RDW 14.5 % (13.2-15.2) 06/09/21 05:51 Plt Count 156 K/mm3 (140-440) 06/09/21 05:51 Lymph % (Auto) Mechanic Helper 06/01/21 07:10 [place] % (Auto) Mechanic Helper 06/01/21 07:10 Eos % (Auto) Mechanic Helper 06/01/21 07:10 Baso % (Auto) Mechanic Helper 06/01/21 07:10 Lymph # (Auto) Mechanic Helper 06/01/21 07:10 [place] # (Auto) Mechanic Helper 06/01/21 07:10 Eos # (Auto) Mechanic Helper 06/01/21 07:10 Baso # (Auto) Mechanic Helper 06/01/21 07:10 Add Manual Diff Complete 06/04/21 07:04 Total Counted 100 06/04/21 07:04 Seg Neutrophils % Mechanic Helper 06/01/21 07:10 Seg Neuts % (Manual) 88.0 % (40.0-70.0) H 06/03/21 05:57 Band Neutrophils % 1.0 % 06/04/21 07:04 Lymphocytes % (Manual) 5.0 % (13.4-35.0) L 06/04/21 07:04 Reactive Lymphs % (Man) 1.0 % 06/01/21 07:10 Monocytes % (Manual) 3.0 % (0.0-7.3) 06/04/21 07:04 Nucleated RBC % Not Reportable 06/04/21 07:04 Seg Neutrophils # Mechanic Helper 06/01/21 07:10 Seg Neutrophils # Man 8.4 K/mm3 (1.8-7.7) H 06/04/21 07:04 Band Neutrophils # 0.1 K/mm3 06/04/21 07:04 Lymphocytes # (Manual) 0.5 K/mm3 (1.2-5.4) L 06/04/21 07:04 Abs React Lymphs (Man) 0.0 K/mm3 06/04/21 07:04 Monocytes # (Manual) 0.3 K/mm3 (0.0-0.8) 06/04/21 07:04 Eosinophils # (Manual) 0.0 K/mm3 (0.0-0.4) 06/04/21 07:04 Basophils # (Manual) 0.0 K/mm3 (0.0-0.1) 06/04/21 07:04 Metamyelocytes # 0.0 K/mm3 06/04/21 07:04 Myelocytes # 0.0 K/mm3 06/04/21 07:04 Promyelocytes # 0.0 K/mm3 06/04/21 07:04 Blast Cells # 0.0 K/mm3 06/04/21 07:04 WBC Morphology Not Reportable 06/04/21 07:04 Hypersegmented Neuts Not Reportable 06/04/21 07:04 Hyposegmented Neuts Not Reportable 06/04/21 07:04 Hypogranular Neuts Not Reportable 06/04/21 07:04 Smudge Cells Not Reportable 06/04/21 07:04 Toxic Granulation Not Reportable 06/04/21 07:04 Toxic Vacuolation Not Reportable 06/04/21 07:04 Dohle Bodies Not Reportable 06/04/21 07:04 Pelger-Huet Anomaly Not Reportable 06/04/21 07:04 Kaci Rods Not Reportable 06/04/21 07:04 Platelet Estimate Consistent w auto 06/04/21 07:04 Clumped Platelets Not Reportable 06/04/21 07:04 Plt Clumps, EDTA Not Reportable 06/04/21 07:04 Large Platelets Not Reportable 06/04/21 07:04 Giant Platelets Not Reportable 06/04/21 07:04 Platelet Satelliting Not Reportable 06/04/21 07:04 Plt Morphology Comment Not Reportable 06/04/21 07:04 RBC Morphology Normal 06/04/21 07:04 Dimorphic RBCs Not Reportable 06/04/21 07:04 Polychromasia Not Reportable 06/04/21 07:04 Hypochromasia Not Reportable 06/04/21 07:04 Poikilocytosis Not Reportable 06/04/21 07:04 Anisocytosis Not Reportable 06/04/21 07:04 Microcytosis Not Reportable 06/04/21 07:04 Macrocytosis Not Reportable 06/04/21 07:04 Spherocytes Not Reportable 06/04/21 07:04 Pappenheimer Bodies Not Reportable 06/04/21 07:04 Sickle Cells Not Reportable 06/04/21 07:04 Target Cells Not Reportable 06/04/21 07:04 Tear Drop Cells Not Reportable 06/04/21 07:04 Ovalocytes Not Reportable 06/04/21 07:04 Helmet Cells Not Reportable 06/04/21 07:04 [place] Bodies Not Reportable 06/04/21 07:04 Cadott Rings Not Reportable 06/04/21 07:04 [place] Cells Not Reportable 06/04/21 07:04 Bite Cells Not Reportable 06/04/21 07:04 Crenated Cell Not Reportable 06/04/21 07:04 Elliptocytes Not Reportable 06/04/21 07:04 Acanthocytes (Spur) Not Reportable 06/04/21 07:04 Rouleaux Not Reportable 06/04/21 07:04 Hemoglobin C Crystals Not Reportable 06/04/21 07:04 Schistocytes Not Reportable 06/04/21 07:04 Malaria parasites Not Reportable 06/04/21 07:04 Dick Bodies Not Reportable 06/04/21 07:04 Hem Pathologist Commnt No 06/04/21 07:04 D-Dimer 3584.01 ng/mlDDU (0-234) H 05/27/21 08:09 ABG pH 7.456 (7.320-7.450) H 06/05/21 20:06 POC ABG pCO2 43.4 mmHg (32.0-48.0) 06/05/21 20:06 ABG pCO2 29.0 mm Hg 05/30/21 22:32 POC ABG pO2 102.1 mmHg (83-108) 06/05/21 20:06 ABG pO2 141.8 mm Hg (80.0-90.0) H 05/30/21 22:32 POC ABG HCO3 29.9 06/05/21 20:06 ABG HCO3 19.9 mmol/L (20.0-26.0) L 05/30/21 22:32 ABG O2 Saturation 98.2 (0-100) 06/05/21 20:06 ABG O2 Content 19.9 (0.0-44) 05/30/21 22:32 POC ABG Base Excess 5.4 06/05/21 20:06 ABG Base Excess -2.7 mmol/L (-2.0-3.0) L 05/30/21 22:32 ABG Hemoglobin 10.3 (12.0-17.5) L 06/05/21 20:06 ABG Oxyhemoglobin 97.6 (94-98) 06/05/21 20:06 ABG Carboxyhemoglobin 1.1 % (0.0-5.0) 05/30/21 22:32 ABG Methemoglobin 0.3 (0.0-1.5) 06/05/21 20:06 ABG Sodium 138.7 mmol/L (136.0-145.0) 06/05/21 20:06 ABG Potassium 3.1 mmol/L (3.40-4.50) L 06/05/21 20:06 ABG Chloride 103.0 mmol/L (98-107) 06/05/21 20:06 ABG Glucose 125 mg/dL (65-95) H 06/05/21 20:06 VBG pH 7.254 (7.320-7.420) L 05/24/21 02:09 Oxyhemoglobin 97.1 % (95.0-99.0) 05/30/21 22:32 Carboxyhemoglobin 0.3 (0.5-1.5) L 06/05/21 20:06 FiO2 70 % 05/30/21 22:32 FiO2 % 65.0 06/05/21 20:06 Sodium 144 mmol/L (137-145) 06/09/21 05:51 Potassium 3.8 mmol/L (3.6-5.0) 06/09/21 05:51 Chloride 108.4 mmol/L (98-107) H 06/09/21 05:51 Carbon Dioxide 25 mmol/L (22-30) 06/09/21 05:51 Anion Gap 14 mmol/L 06/09/21 05:51 BUN 32 mg/dL (9-20) H 06/09/21 05:51 Creatinine 1.2 mg/dL (0.8-1.3) 06/09/21 05:51 Estimated GFR > 60 ml/min 06/09/21 05:51 BUN/Creatinine Ratio 27 % 06/09/21 05:51 Glucose 137 mg/dL (75-100) H 06/09/21 05:51 POC Glucose 115 mg/dL (70-105) H 06/09/21 11:37 Lactic Acid 1.20 mmol/L (0.7-2.0) 06/06/21 00:04 Calcium 7.5 mg/dL (8.4-10.2) L 06/09/21 05:51 Phosphorus 2.20 mg/dL (2.5-4.5) L D 06/03/21 05:57 Magnesium 2.30 mg/dL (1.7-2.3) 06/06/21 04:35 Ferritin 2742.0 ng/mL (30.0-300.0) H 05/27/21 08:09 Total Bilirubin 0.40 mg/dL (0.1-1.2) 06/09/21 05:51 AST 55 units/L (5-40) H 06/09/21 05:51 ALT 21 units/L (7-56) 06/09/21 05:51 Alkaline Phosphatase 81 units/L (35-129) 06/09/21 05:51 Ammonia 22.0 umol/L (25-60) L 05/23/21 18:48 Lactate Dehydrogenase 642 units/L (91-180) H 05/27/21 08:09 Troponin T < 0.010 ng/mL (0.00-0.029) 05/23/21 18:48 C-Reactive Protein 4.10 mg/dL (0.00-1.30) H 06/09/21 05:51 Total Protein 5.6 g/dL (6.3-8.2) L 06/09/21 05:51 Albumin 2.0 g/dL (3.9-5) L 06/09/21 05:51 Albumin/Globulin Ratio 0.6 % 06/09/21 05:51 Procalcitonin 24.30 ng/mL (<0.15) 06/06/21 00:04 TSH 1.150 mlU/mL (0.270-4.200) 05/23/21 18:48 Arterial Blood Glucose 125 mg/dL (65-95) H 06/05/21 20:06 Arterial Blood Ionized Calcium 4.5 mg/dL (4.6-5.3) L 05/29/21 17:58 Urine Color Eli (Yellow) 05/30/21 01:00 Urine Turbidity Cloudy (Clear) 05/30/21 01:00 Urine pH 5.0 (5.0-7.0) 05/30/21 01:00 Ur Specific [place] 1.019 (1.003-1.030) 05/30/21 01:00 Urine Protein 100 mg/dl mg/dL (Negative) 05/30/21 01:00 Urine Glucose (UA) Neg mg/dL (Negative) 05/30/21 01:00 Urine Ketones Neg mg/dL (Negative) 05/30/21 01:00 Urine Blood Mod (Negative) 05/30/21 01:00 Urine Nitrite Neg (Negative) 05/30/21 01:00 Urine Bilirubin Neg (Negative) 05/30/21 01:00 Urine Urobilinogen 4.0 mg/dL (<2.0) 05/30/21 01:00 Ur Leukocyte Esterase Neg (Negative) 05/30/21 01:00 Urine WBC (Auto) 12.0 /HPF (0.0-6.0) H 05/30/21 01:00 Urine RBC (Auto) 21.0 /HPF (0.0-6.0) 05/30/21 01:00 U Epithel Cells (Auto) 2.0 /HPF (0-13.0) 05/30/21 01:00 Uric Acid Crystals Few 05/30/21 01:00 Urine Mucus Few /HPF 05/30/21 01:00 Urine Yeast (Budding) 2+ /HPF 05/30/21 01:00 Vancomycin Trough 14.3 ug/mL (5.0-20.0) 06/08/21 23:34 Plasma/Serum Alcohol < 0.01 % (0-0.07) 05/23/21 18:48 Proteinase 3 (PR3) Ab <1.0 AI (<1.0) 05/24/21 20:57 Myeloperoxidase Ab <1.0 AI (<1.0) 05/24/21 20:57 Complement C3 108 mg/dL (82-185) 05/24/21 20:57 Complement C4 29 mg/dL (15-53) 05/24/21 20:57 Coronavirus (PCR) Negative (Negative) 05/26/21 08:41 Blood Type A POSITIVE 05/29/21 08:15 Antibody Screen Negative 05/29/21 08:15 Microbiology: Microbiology 06/03/21 21:28 Peripheral/Venous Blood Culture - Final NO GROWTH AFTER 5 DAYS 06/03/21 21:28 Peripheral/Venous Blood Culture - Final NO GROWTH AFTER 5 DAYS Heart/IV: Voiding Method Incontinent Active Medications - Current Medications Current Medications: Generic Name Dose Route Start Last Admin Trade Name Freq PRN Reason Stop Dose Admin Acetaminophen 650 mg 05/29/21 07:05 06/03/21 21:32 Acetaminophen 325 Mg Tab PO 650 mg Q6H PRN Administration Pain, Mild (1-3) Acetaminophen 650 mg 06/03/21 08:21 06/03/21 08:42 Acetaminophen 650 Mg Rect Supp VA 650 mg Q4H PRN Administration Pain, Mild (1-3) Albuterol/Ipratropium 1 ampul 06/07/21 20:00 06/09/21 11:23 Ipratropium/Albuterol Sulfate 3 Ml Ampul.Neb IH 1 ampul TIDRT MIKE Administration Lipase/Protease/Amylase 1 each 06/03/21 12:23 Lipase 10,500/Protease 25,000/Amylase 43,750 (Units) Dr Rodney FEEDTUBE PRN PRN For Clogged Feeding Tube Docusate Sodium 100 mg 06/07/21 10:00 06/09/21 09:19 Docusate Sodium 100 Mg Cap PO Not Given DAILY MIKE Heparin Sodium (Porcine) 5,000 unit 05/24/21 06:00 06/09/21 05:18 Heparin 5,000 Unit/1 Ml Vial SUB-Q 5,000 unit Q8HR MIKE Administration Vancomycin HCl 1,250 mg/ 275 mls @ 166.667 mls/hr 06/07/21 12:00 06/08/21 23:14 Sodium Chloride IV 166.667 mls/hr Q18H MIKE Administration Dextrose 1,000 mls @ 75 mls/hr 06/08/21 11:00 06/09/21 08:27 D5w IV 75 mls/hr DIRECT MIKE Administration Metronidazole 500 mg in 100 mls @ 100 mls/hr 06/08/21 13:00 06/09/21 04:17 Flagyl 500 Mg/100 Ml IV 100 mls/hr Q8H MIKE Administration Protocol Cefepime HCl 2 gm in 100 mls @ 200 mls/hr 06/08/21 23:08 06/09/21 05:18 Cefepime/Ns 2 Gm/100 Ml IV 200 mls/hr Q8HR MIKE Administration Protocol Methylprednisolone Sodium Succinate 40 mg 06/08/21 22:00 06/09/21 09:19 Methylprednisolone Sod Succinate 40 Mg/1 Ml Inj IV 40 mg Q12HR MIKE Administration Morphine Sulfate 2 mg 05/23/21 22:01 06/09/21 01:47 Morphine 2 Mg/1 Ml Inj IV 2 mg Q4H PRN Administration Pain, Moderate (4-6) Ondansetron HCl 4 mg 06/04/21 13:41 06/07/21 12:15 Ondansetron 4 Mg/2 Ml Inj IV 4 mg Q4H PRN Administration Nausea And Vomiting Simple Syrup 15 ml 06/03/21 12:23 Simple Syrup 15 Ml FEEDTUBE PRN PRN Hypoglycemia Simple Syrup 30 ml 06/03/21 12:23 Simple Syrup 15 Ml FEEDTUBE PRN PRN Hypoglycemia Sodium Bicarbonate 325 mg 06/03/21 12:23 Sodium Bicarbonate 325 Mg Tab FEEDTUBE PRN PRN For Clogged Feeding Tube Sodium Chloride 10 ml 05/24/21 10:00 06/09/21 09:19 Sodium Chloride 0.9% 10 Ml Flush Syringe IV 10 ml BID MIKE Administration Sodium Chloride 10 ml 05/23/21 22:01 Sodium Chloride 0.9% 10 Ml Flush Syringe IV PRN PRN LINE FLUSH Nutrition/Malnutrition Assess - Dietary Evaluation Nutrition/Malnutrition Findings: Nutrition Notes Start: 05/25/21 09:33 Freq: Status: Active Protocol: Document 06/06/21 11:43 [facility] (Rec: 06/06/21 11:49 NHALL [id number]) Nutrition Notes Initial or Follow up Reassessment Current Diagnosis Sepsis Other Pertinent Diagnosis COVID-19 (+), pneu, ?ileus Current Diet NPO Labs/Tests BUN 43 Pertinent Medications Solumedrol Height 5 ft 11 in Weight 77.11 kg Rudy Body Weight (kg) 78.18 BMI 23.7 Weight Status Appropriate Subjective/Other Information Pt with multiple episodes of vomiting on 06/04; TF stopped, DHT removed. Abdominal X-ray revealed dilated small bowel loops (possible SBO). NGT placed. Percent of energy/protein needs met: 0%/0% Burn Absent Trauma Absent GI Symptoms Vomiting,Constipation #1 Nutrition Diagnosis Inadequate oral intake Diagnosis Progress(for reassessment Continues documentation) Is patient on ventilator? No Is Patient Ambulatory and/or Out of Bed No REE-([place]-St. Jeor-confined to bed) 1964.124 Calculation Used for Recommendations [place] Jeor Additional Notes Pro needs 1-1.2g/k-93g/ day Fluid needs 1ml/kcal Nutrition Intervention Nutrition Support: Resume EN support when medically feasible Goal #1 Resume EN support to meet nutrient needs Follow-Up By: 06/09/21 Additional Comments F/U: TF restart
[2021-06-09] MEDS: VANCOMYCIN 1,250 MG in SODIUM CHLORIDE 0.9% 250ML 250 ML IV SCH (17:06)
[2021-06-09] MEDS: ONDANSETRON 4 MG/2 ML INJ IV PRN (22:05)
[2021-06-10] MEDS: metroNIDAZOLE/NS 500 MG/100 ML 500 MG/100 ML BAG IV SCH ×4 (00:02→20:47)
[2021-06-10] MEDS: HEPARIN 5,000 UNIT/1 ML VIAL SUB-Q SCH ×4 (00:03→23:37)
[2021-06-10] MEDS: methylPREDNISolone Sod Succinate 40 MG/1 ML INJ IV SCH ×3 (00:03→23:36)
[2021-06-10] MEDS: CEFEPIME/NS 2 GM/100 ML 2 GM/100 ML BAG IV SCH ×3 (00:04→14:44)
[2021-06-10 03:22] LABS: Hematocrit 29.8 % (35.5-45.6); Hemoglobin 9.9 gm/dl (11.8-15.2); Mean Corpuscular HGB Conc 33 % (32-34); Mean Corpuscular Volume 82 fl (84-94); Platelet Count 161 K/mm3 (140-440); Red Blood Count 3.62 M/mm3 (3.65-5.03)
[2021-06-10 03:46] LABS: Alanine Aminotransferase 21 units/L (7-56); Albumin 1.9 g/dL (3.9-5); BUN/Creatinine Ratio 23; Blood Urea Nitrogen 32 mg/dL (9-20); Calcium 7.8 mg/dL (8.4-10.2); Hemolysis Index 1
[2021-06-10] MEDS: DEXTROSE 5% IN WATER 1,000 ML IV SCH ×2 (05:28→11:39)
[2021-06-10] MEDS ORDERED: CALCIUM CHLORIDE 1,000 MG in SODIUM CHLORIDE 0.9% 100 ML IV ONE (09:00)
[2021-06-10] MEDS: IPRATROPIUM/ALBUTEROL SULFATE 3 ML AMPUL.NEB IH SCH ×3 (09:39→21:22)
[2021-06-10] MEDS: DOCUSATE SODIUM 100 MG CAP PO SCH (10:00)
[2021-06-10] MEDS: VANCOMYCIN 1,250 MG in SODIUM CHLORIDE 0.9% 250ML 250 ML IV SCH (11:38)
--- NOTE | 2021-06-10 12:09 | Progress Note ---
Assessment and Plan 55-year-old -[place] male who was diagnosed with COVID-19 on May 11, 2021 presents to the emergency room today with complaints of shortness of breath and decreased oral intake over the past 10 to 12 days. Patient also has known history of CVA about 20 years ago and it is unknown whether patient had any residual deficits. Patient has not been able to communicate well and most of the history was gotten from the ER staff. Initial oxygen saturation according to EMS was about 70% and patient was placed on nonrebreather. He was eventually placed on oxygen by nasal cannula upon arrival in the emergency room with significant improvement in his oxygen saturation. Work-up in the emergency room reveals a D-dimer greater than 10,000, sodium 151 potassium of 5.1, BUN of 180) and creatinine of 4.3. Patient had a lactic acid of 2.3. WBC was 11.8. CT scan of the head shows no acute abnormality. Chest x-ray shows mild patchy multifocal airspace disease throughout the lungs. No pleural effusion. VQ scan done showed low probability for pulmonary embolism. Patient being admitted with pneumonia possibly secondary to COVID-19, hypoxia and encephalopathy. Patients COVID 19 PCR reported negative. atient presently sleeping on BIPAP 20/10, rate 14, FIO2 100% and O2 saturation running 100%. Not responding to verbal stimuli. Patient afebrile. No Leukocytosis. Blood pressure 122/78,, Pulse 83. Chest xray 06/03/21: reported diffuse hazy airspace opacities bilaterally, mildly worsened compared to reference exam. No pneumothorax. Chest xray 06/09/21: reported slightly improved bilateral pulmonary opacities. No pneumothorax. Patient presently on Cefepime, Flagyl, Vancomycin, I/V solumedrol and S/C Heparin, and albuterol/atrovent aerosol treatments. - Patient Problems (1) Acute respiratory failure with hypoxia Current Visit: Yes Status: Acute Plan to address problem: BIPAP 20/10, rate 14, FIO2 100% Continue I/V solumedrol. Continue S/C heparin. Recommend GI prophylaxis. Continue albuterol/atrovent aerosol treatments. (2) Bilateral pneumonia Current Visit: Yes Status: Acute Plan to address problem: Patient is on cefepime, Flagyl and vancomycin. (3) Suspected 2019 novel coronavirus infection Current Visit: Yes Status: Acute Plan to address problem: Patient coronavirus PCR is negative. Subjective Date of service: 06/10/21 Principal diagnosis: Acute hypoxemic resp failure; Pneumonia; PUI COVID-19 infection Interval history: 55-year-old -[place] male who was diagnosed with COVID-19 on May 11, 2021 presents to the emergency room today with complaints of shortness of breath and decreased oral intake over the past 10 to 12 days. Patient also has known history of CVA about 20 years ago and it is unknown whether patient had any residual deficits. Patient has not been able to communicate well and most of the history was gotten from the ER staff. Initial oxygen saturation according to EMS was about 70% and patient was placed on nonrebreather. He was eventually placed on oxygen by nasal cannula upon arrival in the emergency room with significant improvement in his oxygen saturation. Work-up in the emergency room reveals a D-dimer greater than 10,000, sodium 151 potassium of 5.1, BUN of 180) and creatinine of 4.3. Patient had a lactic acid of 2.3. WBC was 11.8. CT scan of the head shows no acute abnormality. Chest x-ray shows mild patchy multifocal airspace disease throughout the lungs. No pleural effusion. VQ scan done showed low probability for pulmonary embolism. Patient being admitted with pneumonia possibly secondary to COVID-19, hypoxia and encephalopathy. Patients COVID 19 PCR reported negative. Patient presently sleeping on BIPAP 20/10, rate 14, FIO2 100% and O2 saturation running 100%. Not responding to verbal stimuli. Patient afebrile. No Leukocytosis. Blood pressure 122/78,, Pulse 83. Chest xray 06/03/21: reported diffuse hazy airspace opacities bilaterally, mildly worsened compared to reference exam. No pneumothorax. Chest xray 06/09/21: reported slightly improved bilateral pulmonary opacities. No pneumothorax. Patient presently on Cefepime, Flagyl, Vancomycin, I/V solumedrol and S/C Heparin, and albuterol/atrovent aerosol treatments. Objective Vital Signs - 12hr 06/10/21 06/10/21 06/10/21 00:14 05:05 05:45 Temperature 98.8 F Pulse Rate 119 H 114 H Respiratory 30 H 19 Rate Blood Pressure 112/77 O2 Sat by Pulse 100 100 100 Oximetry 06/10/21 06/10/21 06/10/21 09:43 09:51 10:52 Temperature 98.3 F Pulse Rate 87 84 Respiratory 24 29 H Rate Blood Pressure 116/73 O2 Sat by Pulse 100 100 99 Oximetry Constitutional: no acute distress, asleep, other (middle aged male resting on BIPAP) Eyes: non-icteric ENT: other (BIPAP FFM) Neck: supple, no JVD Effort: mildly labored Ascultation: Bilateral: diminished breath sounds (bases), rhonchi Percussion: Bilateral: not dull Cardiovascular: regular rate and rhythm Gastrointestinal: hypoactive bowel sounds, soft, non-tender, other (distended but very soft) Integumentary: normal Extremities: no cyanosis, no edema, pulses normal, no ischemia or petechiae Neurologic: pupils equal and round, CN II-XII normal, other (somnolent) Psychiatric: other (flat affect) CBC and BMP: 06/11/21 05:51 06/11/21 05:51 ABG, PT/INR, D-dimer: ABG ABG pH 7.456 (7.320-7.450) H 06/05/21 20:06 POC ABG pCO2 43.4 mmHg (32.0-48.0) 06/05/21 20:06 ABG pCO2 29.0 mm Hg 05/30/21 22:32 POC ABG pO2 102.1 mmHg (83-108) 06/05/21 20:06 ABG pO2 141.8 mm Hg (80.0-90.0) H 05/30/21 22:32 POC ABG HCO3 29.9 06/05/21 20:06 ABG O2 Saturation 98.2 (0-100) 06/05/21 20:06 PT/INR, D-dimer D-Dimer 3584.01 ng/mlDDU (0-234) H 05/27/21 08:09 Abnormal lab findings: Abnormal Labs 05/23/21 05/23/21 05/23/21 18:48 18:48 18:48 WBC 11.8 H RBC 5.18 H Hgb Hct MCV MCH MCHC RDW Plt Count Seg Neuts % (Manual) 84.0 H Lymphocytes % (Manual) Nucleated RBC % Seg Neutrophils # Man 9.9 H Lymphocytes # (Manual) D-Dimer > 77415 H ABG pH POC ABG pCO2 POC ABG pO2 ABG pO2 ABG HCO3 ABG Base Excess ABG Hemoglobin ABG Oxyhemoglobin ABG Sodium ABG Potassium ABG Chloride ABG Glucose VBG pH Carboxyhemoglobin Sodium Potassium Chloride Carbon Dioxide BUN Creatinine Glucose POC Glucose Lactic Acid 2.30 H* Calcium Phosphorus Magnesium Ferritin AST Ammonia Lactate Dehydrogenase C-Reactive Protein Total Protein Albumin Arterial Blood Glucose Arterial Blood Ionized Calcium Urine WBC (Auto) Vancomycin Trough 05/23/21 05/23/21 05/23/21 18:48 18:48 18:48 WBC RBC Hgb Hct MCV MCH MCHC RDW Plt Count Seg Neuts % (Manual) Lymphocytes % (Manual) Nucleated RBC % Seg Neutrophils # Man Lymphocytes # (Manual) D-Dimer ABG pH POC ABG pCO2 POC ABG pO2 ABG pO2 ABG HCO3 ABG Base Excess ABG Hemoglobin ABG Oxyhemoglobin ABG Sodium ABG Potassium ABG Chloride ABG Glucose VBG pH Carboxyhemoglobin Sodium 151 H Potassium 5.1 H Chloride 113.2 H Carbon Dioxide 17 L BUN 180 H Creatinine 4.3 H Glucose 114 H POC Glucose Lactic Acid Calcium Phosphorus Magnesium Ferritin 2000.0 H AST Ammonia 22.0 L Lactate Dehydrogenase 577 H C-Reactive Protein 8.80 H Total Protein 9.4 H Albumin 3.0 L Arterial Blood Glucose Arterial Blood Ionized Calcium Urine WBC (Auto) Vancomycin Trough 05/23/21 05/24/21 05/24/21 21:06 02:09 02:09 WBC RBC Hgb Hct MCV MCH MCHC RDW Plt Count Seg Neuts % (Manual) Lymphocytes % (Manual) Nucleated RBC % Seg Neutrophils # Man Lymphocytes # (Manual) D-Dimer ABG pH POC ABG pCO2 POC ABG pO2 ABG pO2 ABG HCO3 ABG Base Excess ABG Hemoglobin ABG Oxyhemoglobin ABG Sodium ABG Potassium ABG Chloride ABG Glucose VBG pH 7.254 L Carboxyhemoglobin Sodium Potassium Chloride Carbon Dioxide BUN Creatinine Glucose POC Glucose Lactic Acid 2.10 H* 2.30 H* Calcium Phosphorus Magnesium Ferritin AST Ammonia Lactate Dehydrogenase C-Reactive Protein Total Protein Albumin Arterial Blood Glucose Arterial Blood Ionized Calcium Urine WBC (Auto) Vancomycin Trough 05/24/21 05/24/21 05/24/21 13:11 17:34 18:12 WBC RBC Hgb Hct MCV MCH MCHC RDW Plt Count Seg Neuts % (Manual) Lymphocytes % (Manual) Nucleated RBC % Seg Neutrophils # Man Lymphocytes # (Manual) D-Dimer ABG pH POC ABG pCO2 POC ABG pO2 ABG pO2 ABG HCO3 ABG Base Excess ABG Hemoglobin ABG Oxyhemoglobin ABG Sodium ABG Potassium ABG Chloride ABG Glucose VBG pH Carboxyhemoglobin Sodium 155 H Potassium 6.9 H* D 5.7 H Chloride 121.9 H Carbon Dioxide 20 L BUN 139 H Creatinine 2.7 H Glucose 139 H POC Glucose 153 H Lactic Acid Calcium Phosphorus Magnesium Ferritin AST Ammonia Lactate Dehydrogenase C-Reactive Protein Total Protein Albumin Arterial Blood Glucose Arterial Blood Ionized Calcium Urine WBC (Auto) Vancomycin Trough 05/25/21 05/25/21 05/26/21 11:33 11:33 03:15 WBC 13.8 H RBC 5.06 H Hgb Hct MCV MCH MCHC RDW Plt Count Seg Neuts % (Manual) Lymphocytes % (Manual) Nucleated RBC % Seg Neutrophils # Man Lymphocytes # (Manual) D-Dimer ABG pH POC ABG pCO2 POC ABG pO2 ABG pO2 ABG HCO3 ABG Base Excess ABG Hemoglobin ABG Oxyhemoglobin ABG Sodium ABG Potassium ABG Chloride ABG Glucose VBG pH Carboxyhemoglobin Sodium 164 H* D 166 H* Potassium 5.4 H 5.5 H Chloride 131.3 H 129.2 H Carbon Dioxide BUN 109 H 102 H Creatinine 1.9 H 1.8 H Glucose 117 H 113 H POC Glucose Lactic Acid Calcium Phosphorus Magnesium Ferritin AST Ammonia Lactate Dehydrogenase 711 H C-Reactive Protein 7.90 H Total Protein Albumin Arterial Blood Glucose Arterial Blood Ionized Calcium Urine WBC (Auto) Vancomycin Trough 05/26/21 05/26/21 05/26/21 03:15 03:15 03:15 WBC 13.1 H RBC 5.43 H Hgb 15.3 H Hct 48.5 H MCV MCH MCHC RDW 15.4 H Plt Count Seg Neuts % (Manual) Lymphocytes % (Manual) Nucleated RBC % Seg Neutrophils # Man Lymphocytes # (Manual) D-Dimer 6229.14 H ABG pH POC ABG pCO2 POC ABG pO2 ABG pO2 ABG HCO3 ABG Base Excess ABG Hemoglobin ABG Oxyhemoglobin ABG Sodium ABG Potassium ABG Chloride ABG Glucose VBG pH Carboxyhemoglobin Sodium Potassium Chloride Carbon Dioxide BUN Creatinine Glucose POC Glucose Lactic Acid Calcium Phosphorus Magnesium Ferritin 2991.0 H AST Ammonia Lactate Dehydrogenase C-Reactive Protein Total Protein Albumin Arterial Blood Glucose Arterial Blood Ionized Calcium Urine WBC (Auto) Vancomycin Trough 05/27/21 05/27/21 05/27/21 08:09 08:09 08:09 WBC 12.4 H RBC 5.27 H Hgb Hct 46.6 H MCV MCH MCHC 31 L RDW 15.7 H Plt Count Seg Neuts % (Manual) Lymphocytes % (Manual) Nucleated RBC % Seg Neutrophils # Man Lymphocytes # (Manual) D-Dimer 3584.01 H ABG pH POC ABG pCO2 POC ABG pO2 ABG pO2 ABG HCO3 ABG Base Excess ABG Hemoglobin ABG Oxyhemoglobin ABG Sodium ABG Potassium ABG Chloride ABG Glucose VBG pH Carboxyhemoglobin Sodium 174 H* Potassium Chloride 136.9 H Carbon Dioxide BUN 90 H Creatinine 1.8 H Glucose POC Glucose Lactic Acid Calcium Phosphorus Magnesium Ferritin AST Ammonia Lactate Dehydrogenase 642 H C-Reactive Protein 5.20 H Total Protein Albumin Arterial Blood Glucose Arterial Blood Ionized Calcium Urine WBC (Auto) Vancomycin Trough 05/27/21 05/28/21 05/28/21 08:09 07:31 07:31 WBC RBC Hgb Hct MCV MCH 27 L MCHC 31 L RDW Plt Count Seg Neuts % (Manual) 88.0 H Lymphocytes % (Manual) 11.0 L Nucleated RBC % Seg Neutrophils # Man 8.3 H Lymphocytes # (Manual) 1.0 L D-Dimer ABG pH POC ABG pCO2 POC ABG pO2 ABG pO2 ABG HCO3 ABG Base Excess ABG Hemoglobin ABG Oxyhemoglobin ABG Sodium ABG Potassium ABG Chloride ABG Glucose VBG pH Carboxyhemoglobin Sodium 162 H* D Potassium Chloride 125.8 H Carbon Dioxide BUN 72 H Creatinine 1.6 H Glucose 131 H POC Glucose Lactic Acid Calcium Phosphorus Magnesium 3.00 H Ferritin 2742.0 H AST Ammonia Lactate Dehydrogenase C-Reactive Protein Total Protein Albumin Arterial Blood Glucose Arterial Blood Ionized Calcium Urine WBC (Auto) Vancomycin Trough 05/29/21 05/29/21 05/29/21 06:40 06:40 17:58 WBC 14.1 H RBC Hgb Hct MCV MCH 27 L MCHC 31 L RDW Plt Count Seg Neuts % (Manual) 85.0 H Lymphocytes % (Manual) 9.0 L Nucleated RBC % 1.0 H Seg Neutrophils # Man 12.0 H Lymphocytes # (Manual) D-Dimer ABG pH 7.505 H POC ABG pCO2 30.3 L POC ABG pO2 128.1 H ABG pO2 ABG HCO3 ABG Base Excess ABG Hemoglobin 11.9 L ABG Oxyhemoglobin ABG Sodium ABG Potassium ABG Chloride 113.0 H ABG Glucose 110 H VBG pH Carboxyhemoglobin Sodium 148 H D Potassium Chloride 111.3 H Carbon Dioxide 20 L BUN 45 H Creatinine Glucose POC Glucose Lactic Acid Calcium Phosphorus 2.10 L D Magnesium Ferritin AST Ammonia Lactate Dehydrogenase C-Reactive Protein Total Protein Albumin Arterial Blood Glucose 110 H Arterial Blood Ionized Calcium 4.5 L Urine WBC (Auto) Vancomycin Trough 05/30/21 05/30/21 05/30/21 01:00 06:06 13:48 WBC RBC Hgb Hct MCV MCH MCHC RDW Plt Count Seg Neuts % (Manual) Lymphocytes % (Manual) Nucleated RBC % Seg Neutrophils # Man Lymphocytes # (Manual) D-Dimer ABG pH POC ABG pCO2 POC ABG pO2 ABG pO2 90.9 H ABG HCO3 ABG Base Excess ABG Hemoglobin 11.8 L ABG Oxyhemoglobin ABG Sodium ABG Potassium ABG Chloride ABG Glucose VBG pH Carboxyhemoglobin Sodium 150 H Potassium Chloride 117.6 H Carbon Dioxide BUN 40 H Creatinine Glucose POC Glucose Lactic Acid Calcium 8.3 L Phosphorus Magnesium Ferritin AST Ammonia Lactate Dehydrogenase C-Reactive Protein Total Protein Albumin Arterial Blood Glucose Arterial Blood Ionized Calcium Urine WBC (Auto) 12.0 H Vancomycin Trough 05/30/21 05/31/21 05/31/21 22:32 02:22 02:22 WBC RBC Hgb 11.2 L Hct 34.8 L MCV MCH MCHC RDW Plt Count 127 L Seg Neuts % (Manual) 97.0 H Lymphocytes % (Manual) Nucleated RBC % Seg Neutrophils # Man 10.5 H Lymphocytes # (Manual) 0.0 L D-Dimer ABG pH 7.454 H POC ABG pCO2 POC ABG pO2 ABG pO2 141.8 H ABG HCO3 19.9 L ABG Base Excess -2.7 L ABG Hemoglobin ABG Oxyhemoglobin ABG Sodium ABG Potassium ABG Chloride ABG Glucose VBG pH Carboxyhemoglobin Sodium 152 H Potassium Chloride 118.9 H Carbon Dioxide 19 L BUN 48 H Creatinine 1.5 H Glucose 101 H POC Glucose Lactic Acid Calcium 8.3 L Phosphorus Magnesium Ferritin AST Ammonia Lactate Dehydrogenase C-Reactive Protein Total Protein Albumin Arterial Blood Glucose Arterial Blood Ionized Calcium Urine WBC (Auto) Vancomycin Trough 05/31/21 05/31/21 06/01/21 11:42 21:28 07:10 WBC RBC Hgb Hct MCV MCH MCHC RDW Plt Count Seg Neuts % (Manual) Lymphocytes % (Manual) Nucleated RBC % Seg Neutrophils # Man Lymphocytes # (Manual) D-Dimer ABG pH POC ABG pCO2 POC ABG pO2 ABG pO2 ABG HCO3 ABG Base Excess ABG Hemoglobin ABG Oxyhemoglobin ABG Sodium ABG Potassium ABG Chloride ABG Glucose VBG pH Carboxyhemoglobin Sodium 150 H Potassium Chloride 115.7 H Carbon Dioxide BUN 47 H Creatinine Glucose 115 H POC Glucose 161 H Lactic Acid Calcium Phosphorus Magnesium 2.50 H Ferritin AST Ammonia Lactate Dehydrogenase C-Reactive Protein Total Protein Albumin Arterial Blood Glucose Arterial Blood Ionized Calcium Urine WBC (Auto) Vancomycin Trough 20.2 H 06/01/21 06/01/21 06/01/21 07:10 07:54 10:39 WBC RBC Hgb 10.7 L Hct 33.5 L MCV MCH MCHC RDW Plt Count Seg Neuts % (Manual) 92.0 H Lymphocytes % (Manual) 4.0 L Nucleated RBC % Seg Neutrophils # Man Lymphocytes # (Manual) 0.3 L D-Dimer ABG pH POC ABG pCO2 POC ABG pO2 ABG pO2 ABG HCO3 ABG Base Excess ABG Hemoglobin ABG Oxyhemoglobin ABG Sodium ABG Potassium ABG Chloride ABG Glucose VBG pH Carboxyhemoglobin Sodium 152 H Potassium Chloride 117.6 H Carbon Dioxide BUN 50 H Creatinine Glucose 140 H POC Glucose 127 H Lactic Acid Calcium 8.3 L Phosphorus Magnesium Ferritin AST Ammonia Lactate Dehydrogenase C-Reactive Protein Total Protein Albumin Arterial Blood Glucose Arterial Blood Ionized Calcium Urine WBC (Auto) Vancomycin Trough 06/01/21 06/01/21 06/01/21 11:11 16:16 21:45 WBC RBC Hgb Hct MCV MCH MCHC RDW Plt Count Seg Neuts % (Manual) Lymphocytes % (Manual) Nucleated RBC % Seg Neutrophils # Man Lymphocytes # (Manual) D-Dimer ABG pH POC ABG pCO2 POC ABG pO2 ABG pO2 ABG HCO3 ABG Base Excess ABG Hemoglobin ABG Oxyhemoglobin ABG Sodium ABG Potassium ABG Chloride ABG Glucose VBG pH Carboxyhemoglobin Sodium Potassium Chloride Carbon Dioxide BUN Creatinine Glucose POC Glucose 120 H 129 H 150 H Lactic Acid Calcium Phosphorus Magnesium Ferritin AST Ammonia Lactate Dehydrogenase C-Reactive Protein Total Protein Albumin Arterial Blood Glucose Arterial Blood Ionized Calcium Urine WBC (Auto) Vancomycin Trough 06/02/21 06/02/21 06/02/21 06:53 06:53 07:52 WBC RBC Hgb 10.4 L Hct 32.4 L MCV MCH 27 L MCHC RDW Plt Count Seg Neuts % (Manual) 93.0 H Lymphocytes % (Manual) 3.0 L Nucleated RBC % Seg Neutrophils # Man Lymphocytes # (Manual) 0.2 L D-Dimer ABG pH POC ABG pCO2 POC ABG pO2 ABG pO2 ABG HCO3 ABG Base Excess ABG Hemoglobin ABG Oxyhemoglobin ABG Sodium ABG Potassium ABG Chloride ABG Glucose VBG pH Carboxyhemoglobin Sodium 149 H Potassium Chloride 112.6 H Carbon Dioxide BUN 54 H Creatinine Glucose 123 H POC Glucose 116 H Lactic Acid Calcium 8.2 L Phosphorus Magnesium Ferritin AST Ammonia Lactate Dehydrogenase C-Reactive Protein Total Protein Albumin Arterial Blood Glucose Arterial Blood Ionized Calcium Urine WBC (Auto) Vancomycin Trough 06/03/21 06/03/21 06/03/21 05:57 05:57 21:23 WBC RBC Hgb 10.7 L Hct 33.0 L MCV 83 L MCH 27 L MCHC RDW Plt Count Seg Neuts % (Manual) 88.0 H Lymphocytes % (Manual) 8.0 L Nucleated RBC % 2.0 H Seg Neutrophils # Man Lymphocytes # (Manual) 0.6 L D-Dimer ABG pH POC ABG pCO2 POC ABG pO2 39.0 L ABG pO2 ABG HCO3 ABG Base Excess ABG Hemoglobin ABG Oxyhemoglobin 69.1 L ABG Sodium 134.1 L ABG Potassium ABG Chloride ABG Glucose 135 H VBG pH Carboxyhemoglobin Sodium Potassium Chloride Carbon Dioxide BUN 36 H Creatinine Glucose 102 H POC Glucose Lactic Acid Calcium 8.0 L Phosphorus 2.20 L D Magnesium Ferritin AST Ammonia Lactate Dehydrogenase C-Reactive Protein Total Protein Albumin Arterial Blood Glucose 135 H Arterial Blood Ionized Calcium Urine WBC (Auto) Vancomycin Trough 06/04/21 06/04/21 06/04/21 07:04 07:04 17:42 WBC RBC Hgb 11.3 L Hct 34.9 L MCV MCH 27 L MCHC RDW Plt Count Seg Neuts % (Manual) Lymphocytes % (Manual) 5.0 L Nucleated RBC % Seg Neutrophils # Man 8.4 H Lymphocytes # (Manual) 0.5 L D-Dimer ABG pH POC ABG pCO2 POC ABG pO2 ABG pO2 ABG HCO3 ABG Base Excess ABG Hemoglobin ABG Oxyhemoglobin ABG Sodium ABG Potassium ABG Chloride ABG Glucose VBG pH Carboxyhemoglobin Sodium Potassium Chloride Carbon Dioxide BUN 27 H Creatinine Glucose POC Glucose 136 H Lactic Acid Calcium 8.2 L Phosphorus Magnesium Ferritin AST Ammonia Lactate Dehydrogenase C-Reactive Protein Total Protein Albumin Arterial Blood Glucose Arterial Blood Ionized Calcium Urine WBC (Auto) Vancomycin Trough 06/05/21 06/05/21 06/05/21 05:10 12:32 15:45 WBC RBC Hgb Hct MCV MCH MCHC RDW Plt Count Seg Neuts % (Manual) Lymphocytes % (Manual) Nucleated RBC % Seg Neutrophils # Man Lymphocytes # (Manual) D-Dimer ABG pH POC ABG pCO2 POC ABG pO2 ABG pO2 ABG HCO3 ABG Base Excess ABG Hemoglobin ABG Oxyhemoglobin ABG Sodium ABG Potassium ABG Chloride ABG Glucose VBG pH Carboxyhemoglobin Sodium Potassium 3.5 L Chloride Carbon Dioxide BUN 35 H Creatinine Glucose 130 H POC Glucose 122 H 119 H Lactic Acid Calcium 8.2 L Phosphorus Magnesium Ferritin AST Ammonia Lactate Dehydrogenase C-Reactive Protein Total Protein Albumin Arterial Blood Glucose Arterial Blood Ionized Calcium Urine WBC (Auto) Vancomycin Trough 06/05/21 06/05/21 06/06/21 20:06 21:27 00:04 WBC RBC Hgb Hct MCV MCH MCHC RDW Plt Count Seg Neuts % (Manual) Lymphocytes % (Manual) Nucleated RBC % Seg Neutrophils # Man Lymphocytes # (Manual) D-Dimer ABG pH 7.456 H POC ABG pCO2 POC ABG pO2 ABG pO2 ABG HCO3 ABG Base Excess ABG Hemoglobin 10.3 L ABG Oxyhemoglobin ABG Sodium ABG Potassium 3.1 L ABG Chloride ABG Glucose 125 H VBG pH Carboxyhemoglobin 0.3 L Sodium Potassium Chloride Carbon Dioxide BUN Creatinine Glucose POC Glucose 113 H Lactic Acid Calcium Phosphorus Magnesium Ferritin AST Ammonia Lactate Dehydrogenase C-Reactive Protein 19.60 H Total Protein Albumin Arterial Blood Glucose 125 H Arterial Blood Ionized Calcium Urine WBC (Auto) Vancomycin Trough 06/06/21 06/06/21 06/07/21 04:35 22:37 05:54 WBC RBC Hgb Hct MCV MCH MCHC RDW Plt Count Seg Neuts % (Manual) Lymphocytes % (Manual) Nucleated RBC % Seg Neutrophils # Man Lymphocytes # (Manual) D-Dimer ABG pH POC ABG pCO2 POC ABG pO2 ABG pO2 ABG HCO3 ABG Base Excess ABG Hemoglobin ABG Oxyhemoglobin ABG Sodium ABG Potassium ABG Chloride ABG Glucose VBG pH Carboxyhemoglobin Sodium Potassium Chloride Carbon Dioxide BUN 43 H Creatinine Glucose POC Glucose 114 H 130 H Lactic Acid Calcium 7.6 L Phosphorus Magnesium Ferritin AST Ammonia Lactate Dehydrogenase C-Reactive Protein Total Protein Albumin Arterial Blood Glucose Arterial Blood Ionized Calcium Urine WBC (Auto) Vancomycin Trough 06/07/21 06/07/21 06/07/21 07:32 10:03 11:36 WBC RBC 3.63 L Hgb 9.8 L Hct 30.3 L MCV 83 L MCH 27 L MCHC RDW Plt Count Seg Neuts % (Manual) Lymphocytes % (Manual) Nucleated RBC % Seg Neutrophils # Man Lymphocytes # (Manual) D-Dimer ABG pH POC ABG pCO2 POC ABG pO2 ABG pO2 ABG HCO3 ABG Base Excess ABG Hemoglobin ABG Oxyhemoglobin ABG Sodium ABG Potassium ABG Chloride ABG Glucose VBG pH Carboxyhemoglobin Sodium Potassium 3.2 L Chloride 108.5 H Carbon Dioxide BUN 36 H Creatinine Glucose 139 H POC Glucose 125 H Lactic Acid Calcium 8.0 L Phosphorus Magnesium Ferritin AST Ammonia Lactate Dehydrogenase C-Reactive Protein Total Protein Albumin Arterial Blood Glucose Arterial Blood Ionized Calcium Urine WBC (Auto) Vancomycin Trough 06/07/21 06/07/21 06/08/21 17:54 22:14 07:18 WBC RBC Hgb Hct MCV MCH MCHC RDW Plt Count Seg Neuts % (Manual) Lymphocytes % (Manual) Nucleated RBC % Seg Neutrophils # Man Lymphocytes # (Manual) D-Dimer ABG pH POC ABG pCO2 POC ABG pO2 ABG pO2 ABG HCO3 ABG Base Excess ABG Hemoglobin ABG Oxyhemoglobin ABG Sodium ABG Potassium ABG Chloride ABG Glucose VBG pH Carboxyhemoglobin Sodium 149 H Potassium Chloride 110.2 H Carbon Dioxide BUN 31 H Creatinine Glucose 131 H POC Glucose 121 H 131 H Lactic Acid Calcium 8.1 L Phosphorus Magnesium Ferritin AST Ammonia Lactate Dehydrogenase C-Reactive Protein Total Protein Albumin Arterial Blood Glucose Arterial Blood Ionized Calcium Urine WBC (Auto) Vancomycin Trough 06/08/21 06/08/21 06/08/21 07:45 12:07 18:02 WBC RBC Hgb Hct MCV MCH MCHC RDW Plt Count Seg Neuts % (Manual) Lymphocytes % (Manual) Nucleated RBC % Seg Neutrophils # Man Lymphocytes # (Manual) D-Dimer ABG pH POC ABG pCO2 POC ABG pO2 ABG pO2 ABG HCO3 ABG Base Excess ABG Hemoglobin ABG Oxyhemoglobin ABG Sodium ABG Potassium ABG Chloride ABG Glucose VBG pH Carboxyhemoglobin Sodium Potassium Chloride Carbon Dioxide BUN Creatinine Glucose POC Glucose 120 H 127 H 148 H Lactic Acid Calcium Phosphorus Magnesium Ferritin AST Ammonia Lactate Dehydrogenase C-Reactive Protein Total Protein Albumin Arterial Blood Glucose Arterial Blood Ionized Calcium Urine WBC (Auto) Vancomycin Trough 06/09/21 06/09/21 06/09/21 05:51 05:51 11:37 WBC 3.9 L RBC 3.38 L Hgb 9.4 L Hct 28.5 L MCV MCH MCHC RDW Plt Count Seg Neuts % (Manual) Lymphocytes % (Manual) Nucleated RBC % Seg Neutrophils # Man Lymphocytes # (Manual) D-Dimer ABG pH POC ABG pCO2 POC ABG pO2 ABG pO2 ABG HCO3 ABG Base Excess ABG Hemoglobin ABG Oxyhemoglobin ABG Sodium ABG Potassium ABG Chloride ABG Glucose VBG pH Carboxyhemoglobin Sodium Potassium Chloride 108.4 H Carbon Dioxide BUN 32 H Creatinine Glucose 137 H POC Glucose 115 H Lactic Acid Calcium 7.5 L Phosphorus Magnesium Ferritin AST 55 H Ammonia Lactate Dehydrogenase C-Reactive Protein 4.10 H Total Protein 5.6 L Albumin 2.0 L Arterial Blood Glucose Arterial Blood Ionized Calcium Urine WBC (Auto) Vancomycin Trough 06/09/21 06/09/21 06/10/21 17:32 22:18 01:52 WBC RBC 3.62 L Hgb 9.9 L Hct 29.8 L MCV 82 L MCH 27 L MCHC RDW Plt Count Seg Neuts % (Manual) Lymphocytes % (Manual) Nucleated RBC % Seg Neutrophils # Man Lymphocytes # (Manual) D-Dimer ABG pH POC ABG pCO2 POC ABG pO2 ABG pO2 ABG HCO3 ABG Base Excess ABG Hemoglobin ABG Oxyhemoglobin ABG Sodium ABG Potassium ABG Chloride ABG Glucose VBG pH Carboxyhemoglobin Sodium Potassium Chloride Carbon Dioxide BUN Creatinine Glucose POC Glucose 113 H 110 H Lactic Acid Calcium Phosphorus Magnesium Ferritin AST Ammonia Lactate Dehydrogenase C-Reactive Protein Total Protein Albumin Arterial Blood Glucose Arterial Blood Ionized Calcium Urine WBC (Auto) Vancomycin Trough 06/10/21 01:52 WBC RBC Hgb Hct MCV MCH MCHC RDW Plt Count Seg Neuts % (Manual) Lymphocytes % (Manual) Nucleated RBC % Seg Neutrophils # Man Lymphocytes # (Manual) D-Dimer ABG pH POC ABG pCO2 POC ABG pO2 ABG pO2 ABG HCO3 ABG Base Excess ABG Hemoglobin ABG Oxyhemoglobin ABG Sodium ABG Potassium ABG Chloride ABG Glucose VBG pH Carboxyhemoglobin Sodium Potassium Chloride 108.2 H Carbon Dioxide BUN 32 H Creatinine 1.4 H Glucose POC Glucose Lactic Acid Calcium 7.8 L Phosphorus Magnesium Ferritin AST 55 H Ammonia Lactate Dehydrogenase C-Reactive Protein Total Protein 5.6 L Albumin 1.9 L Arterial Blood Glucose Arterial Blood Ionized Calcium Urine WBC (Auto) Vancomycin Trough Allied health notes reviewed: nursing
--- NOTE | 2021-06-10 12:18 | Progress Note ---
Assessment and Plan Cultures: SARS CoV2 PCR: Positive as outpatient. Negative here x 2 05/23/2021 blood culture: no growth 05/29/2021 blood culture no growth 05/30/2021 blood culture no growth 05/30/2021 urine culture [place] 05/31/2021 blood culture no growth 06/03/2021 blood culture no growth today A/P: 55/M with initially seen on 05/23/2021 due to bilateral pneumonia with positive Covid test outpatient but negative x2 inpatient noted with new fever and repeat CT chest shows bilateral basilar pneumonia with cavitation: #Sepsis: No fever since 06/04/2021. Likely secondary to bilateral pneumonia. #Bilateral pneumonia with cavitation: ? secondary to COVID-19, tested positive as outpatient, but negative here x 2. During the last week noted elevated procalcitonin from 0.3-->24 in the setting of resolving ANGELES. Also noted CRP from 5.2-->19. CT abdomen shows severe aspiration type pneumonia in both bases with a currently 30 lesion of 20 cm on the left lower lobe. #Acute hypoxic respiratory failure: On BiPAP. Likely due to pneumonia. VQ scan low probability for PE. #Recent ileus: Resolved. #Acute renal failure: Nephrology on board. Improving. #Hypernatremia: Per primary team/ renal improving #Tachycardia #Elevated ddimer: VQ low prob for PE Recs: -Taper off of steroid -Procal improving. -Start cefepime and metronidazole -Continue vancomycin -Check MRSA PCR Dayan Ferguson MD [facility] ([facility]) O: [phone] F: [phone] Subjective Date of service: 06/10/21 Principal diagnosis: Acute hypoxemic resp failure; Pneumonia; PUI COVID-19 infection Interval history: Afebrile, normal white count. Objective - Exam Narrative Exam: General appearance: Alert on BiPAP Eyes: anicteric sclerae, moist conjunctivae; no lid-lag; PERRLA HENT: Normocephalic, Atraumatic; normal external ears, nares open, oropharynx limited Neck: supple, tracheal midline, no JVD Lungs: Rhonchi CV: RRR no murmur Abdomen: Soft, non-tender; no masses or hepatosplenomegaly Extremities: no edema, no cyanosis Skin: No rash. Psych: no agitated Neuro: alert follows commands - Constitutional Vitals: Vital Signs Temp Pulse Resp BP Pulse Ox 98.3 F 84 29 H 116/73 99 06/10/21 10:52 06/10/21 10:52 06/10/21 10:52 06/10/21 10:52 06/10/21 10:52 Temperature -Last 24 Hours Temperature 98.3 F Temperature 98.8 F Temperature 99.2 F - Labs CBC & Chem 7: 06/10/21 01:52 06/10/21 01:52 Labs: Abnormal lab results 06/09/21 06/09/21 06/10/21 Range/Units 17:32 22:18 01:52 RBC 3.62 L (3.65-5.03) M/mm3 Hgb 9.9 L (11.8-15.2) gm/dl Hct 29.8 L (35.5-45.6) % MCV 82 L (84-94) fl MCH 27 L (28-32) pg Chloride (98-107) mmol/L BUN (9-20) mg/dL Creatinine (0.8-1.3) mg/dL POC Glucose 113 H 110 H (70-105) mg/dL Calcium (8.4-10.2) mg/dL AST (5-40) units/L Total Protein (6.3-8.2) g/dL Albumin (3.9-5) g/dL 06/10/21 Range/Units 01:52 RBC (3.65-5.03) M/mm3 Hgb (11.8-15.2) gm/dl Hct (35.5-45.6) % MCV (84-94) fl MCH (28-32) pg Chloride 108.2 H (98-107) mmol/L BUN 32 H (9-20) mg/dL Creatinine 1.4 H (0.8-1.3) mg/dL POC Glucose (70-105) mg/dL Calcium 7.8 L (8.4-10.2) mg/dL AST 55 H (5-40) units/L Total Protein 5.6 L (6.3-8.2) g/dL Albumin 1.9 L (3.9-5) g/dL
--- NOTE | 2021-06-10 12:28 | Progress Note ---
Assessment and Plan Impression: * Acute kidney injury secondary to ATN likely related to COVID 19 * Acute hypoxic respiratory failure secondary to COVID 19 PNA * Azotemia * Hyperkalemia * Metabolic acidosis * Hypernatremia Plan: * creatinine is uptrending 1.2->1.4, switch IVF from D5W to D5 1/2NS to encourage renal perufsion * Sodium stable with free water * off baclofen * Keep MAP>65 * Management of COVID 19 PNA to primary team/ID * Dose medications for renal function * AM labs * Renal diet * follow up lytes prn * Prognosis guarded Subjective Date of service: 06/10/21 Principal diagnosis: Acute hypoxemic resp failure; Pneumonia; PUI COVID-19 infection Interval history: No acute changes noted, patient resting in bed this AM, on Bipap Objective - Exam Narrative Exam: General appearance: well-developed, appears stated age EENT: ATNC, PERRL Neck: no JVD Respiratory: Present: Clear to Ascultation Cardiology: regular, S1S2 Gastrointestinal: normoactive bowel sounds Integumentary: no rash, warm and dry Neurologic: no focal deficit - Vital Signs Vital signs: Vital Signs - 12hr 06/10/21 06/10/21 06/10/21 05:05 05:45 09:43 Temperature 98.8 F Pulse Rate 119 H 114 H 87 Respiratory 30 H 19 24 Rate Blood Pressure 112/77 O2 Sat by Pulse 100 100 100 Oximetry 06/10/21 06/10/21 09:51 10:52 Temperature 98.3 F Pulse Rate 84 Respiratory 29 H Rate Blood Pressure 116/73 O2 Sat by Pulse 100 99 Oximetry - Lab 06/10/21 01:52 06/10/21 01:52 Most recent lab results ABG pH 7.456 (7.320-7.450) H 06/05/21 20:06 ABG pCO2 29.0 mm Hg 05/30/21 22:32 ABG pO2 141.8 mm Hg (80.0-90.0) H 05/30/21 22:32 ABG HCO3 19.9 mmol/L (20.0-26.0) L 05/30/21 22:32 ABG O2 Saturation 98.2 (0-100) 06/05/21 20:06 Calcium 7.8 mg/dL (8.4-10.2) L 06/10/21 01:52 Phosphorus 2.20 mg/dL (2.5-4.5) L D 06/03/21 05:57 Magnesium 2.30 mg/dL (1.7-2.3) 06/06/21 04:35 Medications & Allergies - Medications Allergies/Adverse Reactions: Allergies No Known Allergies Allergy (Unverified 02/12/17 15:47) Home Medications: Home Medications Medication Instructions Recorded Confirmed Last Taken Type No Known Home Medications [No 05/31/21 05/31/21 Unknown History Reported Home Medications] Active Medications: Generic Name Dose Route Start Last Admin Trade Name Freq PRN Reason Stop Dose Admin Acetaminophen 650 mg 05/29/21 07:05 06/03/21 21:32 Acetaminophen 325 Mg Tab PO 650 mg Q6H PRN Administration Pain, Mild (1-3) Acetaminophen 650 mg 06/03/21 08:21 06/03/21 08:42 Acetaminophen 650 Mg Rect Supp [place] 650 mg Q4H PRN Administration Pain, Mild (1-3) Albuterol/Ipratropium 1 ampul 06/07/21 20:00 06/10/21 09:39 Ipratropium/Albuterol Sulfate 3 Ml Ampul.Neb IH 1 ampul TIDRT MIKE Administration Lipase/Protease/Amylase 1 each 06/03/21 12:23 Lipase 10,500/Protease 25,000/Amylase 43,750 (Units) Dr Cap FEEDTUBE PRN PRN For Clogged Feeding Tube Docusate Sodium 100 mg 06/07/21 10:00 06/09/21 09:19 Docusate Sodium 100 Mg Cap PO Not Given DAILY [facility] Heparin Sodium (Porcine) 5,000 unit 05/24/21 06:00 06/10/21 05:27 Heparin 5,000 Unit/1 Ml Vial SUB-Q 5,000 unit Q8HR MIKE Administration Vancomycin HCl 1,250 mg/ 275 mls @ 166.667 mls/hr 06/07/21 12:00 06/10/21 11:38 Sodium Chloride IV 166.667 mls/hr Q18H MIKE Administration Metronidazole 500 mg in 100 mls @ 100 mls/hr 06/08/21 13:00 06/10/21 05:27 Flagyl 500 Mg/100 Ml IV 100 mls/hr Q8H MIKE Administration Protocol Cefepime HCl 2 gm in 100 mls @ 200 mls/hr 06/08/21 23:08 06/10/21 05:27 Cefepime/Ns 2 Gm/100 Ml IV 200 mls/hr Q8HR MIKE Administration Protocol Dextrose/Sodium Chloride 1,000 mls @ 75 mls/hr 06/10/21 13:00 D5ns IV DIRECT MIKE Methylprednisolone Sodium Succinate 40 mg 06/08/21 22:00 06/10/21 09:32 Methylprednisolone Sod Succinate 40 Mg/1 Ml Inj IV 40 mg Q12HR MIKE Administration Morphine Sulfate 2 mg 05/23/21 22:01 06/09/21 01:47 Morphine 2 Mg/1 Ml Inj IV 2 mg Q4H PRN Administration Pain, Moderate (4-6) Ondansetron HCl 4 mg 06/04/21 13:41 06/09/21 22:05 Ondansetron 4 Mg/2 Ml Inj IV 4 mg Q4H PRN Administration Nausea And Vomiting Simple Syrup 15 ml 06/03/21 12:23 Simple Syrup 15 Ml FEEDTUBE PRN PRN Hypoglycemia Simple Syrup 30 ml 06/03/21 12:23 Simple Syrup 15 Ml FEEDTUBE PRN PRN Hypoglycemia Sodium Bicarbonate 325 mg 06/03/21 12:23 Sodium Bicarbonate 325 Mg Tab FEEDTUBE PRN PRN For Clogged Feeding Tube Sodium Chloride 10 ml 05/24/21 10:00 06/10/21 09:33 Sodium Chloride 0.9% 10 Ml Flush Syringe IV 10 ml BID MIKE Administration Sodium Chloride 10 ml 05/23/21 22:01 Sodium Chloride 0.9% 10 Ml Flush Syringe IV PRN PRN LINE FLUSH
--- NOTE | 2021-06-10 15:43 | Progress Note ---
Assessment and Plan Assessment and plan: #Acute hypoxic respiratory failure -Currently on BiPAP, will maintain SpO2 >90% -VQ scan low probability for PE on admission -continue methylprednisone 40 mg daily; will continue to taper per ID recs -s/p 1 dose of Lasix -TTE 06/06: LVEF 55 to 60%, no valvular or chamber abnormalities -Pulmonary consulted, recommendations appreciated -patient continues to deteriorate will likely need bronchoscopy to address the cavitary lesion #Pneumonia -CT abdomen pelvis revealed severe bilateral pneumonia and a cavitary lesion in the left lower lobe -likely secondary to aspiration during ileus -CT chest ordered -CRP 19.6 and procal 24.30, repeat pending -continue vancomycin, cefepime and flagyl per ID recommendations -completed azithromycin and Rocephin in past #Severe sepsis -repeat blood cultures no growth to date -procalcitonin 24.30, repeat pending -continue vancomycin, cefepime and flagyl -s/p zosyn -likely 2/2 to PNA #COVID-19 infection -Diagnosed on 05/11 -s/p 10 days of steroids, restarted on 06/04 due to worsening Pulmonary status -Tapering steroids per ID recommendations #[id number] secondary to poor oral intake #Acute encephalopathy-Resolved #ANGELES, resolved #Hyperkalemia, resolved #Ileus-resolved #Lactic acidosis-resolved #Discharge planning -Patient and family agreed to the home with home health upon discharge -will continue to wean oxygen to at least 4 L/min prior to discharge Disposition Plan: Continue medical management Total Time Spent with Patient (Minutes): 35 History Interval history: No acute events overnight. Hospitalist Physical - Constitutional Vitals: Temp Pulse Resp BP Pulse Ox 98.3 F 81 24 116/73 100 06/10/21 10:52 06/10/21 15:02 06/10/21 15:02 06/10/21 10:52 06/10/21 15:02 General appearance: Present: no acute distress, cachectic - EENT Eyes: Present: PERRL, EOM intact ENT: hearing intact, clear oral mucosa - Neck Neck: Present: supple, normal ROM - Respiratory Respiratory effort: labored (Currently on BiPAP) - Cardiovascular Heart rate: 110 Rhythm: regular Heart Sounds: Present: S1 & S2 - Extremities Extremities: no ischemia, pulses intact, pulses symmetrical, No edema, normal temperature, normal color Peripheral Pulses: within normal limits - Abdominal General gastrointestinal: soft, non-tender, non-distended, normal bowel sounds - Integumentary Integumentary: Present: clear, warm, dry - Psychiatric Psychiatric: other (Lacks capacity and slightly altered) - Neurologic Neurologic: other (Unable to assess today due to altered mentation) - Allied Health Allied health notes reviewed: nursing HEART Score - HEART Score EKG: Non-specific Age: 45-65 Risk factors: 1-2 risk factors Troponin: Troponin T < 0.010 ng/mL (0.00-0.029) 05/23/21 18:48 - Critical Actions Critical Actions: 0-3 pts:0.9-1.7%risk of adverse cardiac event.Candidate for discharge Results - Labs CBC & Chem 7: 06/10/21 01:52 06/10/21 01:52 Labs: Laboratory Last Values WBC 4.9 K/mm3 (4.5-11.0) 06/10/21 01:52 RBC 3.62 M/mm3 (3.65-5.03) L 06/10/21 01:52 Hgb 9.9 gm/dl (11.8-15.2) L 06/10/21 01:52 Hct 29.8 % (35.5-45.6) L 06/10/21 01:52 MCV 82 fl (84-94) L 06/10/21 01:52 MCH 27 pg (28-32) L 06/10/21 01:52 MCHC 33 % (32-34) 06/10/21 01:52 RDW 15.0 % (13.2-15.2) 06/10/21 01:52 Plt Count 161 K/mm3 (140-440) 06/10/21 01:52 Lymph % (Auto) Asbestos Shingle Inspector 06/01/21 07:10 Hand % (Auto) Asbestos Shingle Inspector 06/01/21 07:10 Eos % (Auto) Asbestos Shingle Inspector 06/01/21 07:10 Baso % (Auto) Asbestos Shingle Inspector 06/01/21 07:10 Lymph # (Auto) Asbestos Shingle Inspector 06/01/21 07:10 Hand # (Auto) Asbestos Shingle Inspector 06/01/21 07:10 Eos # (Auto) Asbestos Shingle Inspector 06/01/21 07:10 Baso # (Auto) Asbestos Shingle Inspector 06/01/21 07:10 Add Manual Diff Complete 06/04/21 07:04 Total Counted 100 06/04/21 07:04 Seg Neutrophils % Asbestos Shingle Inspector 06/01/21 07:10 Seg Neuts % (Manual) 88.0 % (40.0-70.0) H 06/03/21 05:57 Band Neutrophils % 1.0 % 06/04/21 07:04 Lymphocytes % (Manual) 5.0 % (13.4-35.0) L 06/04/21 07:04 Reactive Lymphs % (Man) 1.0 % 06/01/21 07:10 Monocytes % (Manual) 3.0 % (0.0-7.3) 06/04/21 07:04 Nucleated RBC % Not Reportable 06/04/21 07:04 Seg Neutrophils # Asbestos Shingle Inspector 06/01/21 07:10 Seg Neutrophils # Man 8.4 K/mm3 (1.8-7.7) H 06/04/21 07:04 Band Neutrophils # 0.1 K/mm3 06/04/21 07:04 Lymphocytes # (Manual) 0.5 K/mm3 (1.2-5.4) L 06/04/21 07:04 Abs React Lymphs (Man) 0.0 K/mm3 06/04/21 07:04 Monocytes # (Manual) 0.3 K/mm3 (0.0-0.8) 06/04/21 07:04 Eosinophils # (Manual) 0.0 K/mm3 (0.0-0.4) 06/04/21 07:04 Basophils # (Manual) 0.0 K/mm3 (0.0-0.1) 06/04/21 07:04 Metamyelocytes # 0.0 K/mm3 06/04/21 07:04 Myelocytes # 0.0 K/mm3 06/04/21 07:04 Promyelocytes # 0.0 K/mm3 06/04/21 07:04 Blast Cells # 0.0 K/mm3 06/04/21 07:04 WBC Morphology Not Reportable 06/04/21 07:04 Hypersegmented Neuts Not Reportable 06/04/21 07:04 Hyposegmented Neuts Not Reportable 06/04/21 07:04 Hypogranular Neuts Not Reportable 06/04/21 07:04 Smudge Cells Not Reportable 06/04/21 07:04 Toxic Granulation Not Reportable 06/04/21 07:04 Toxic Vacuolation Not Reportable 06/04/21 07:04 Dohle Bodies Not Reportable 06/04/21 07:04 Pelger-Huet Anomaly Not Reportable 06/04/21 07:04 Kaci Rods Not Reportable 06/04/21 07:04 Platelet Estimate Consistent w auto 06/04/21 07:04 Clumped Platelets Not Reportable 06/04/21 07:04 Plt Clumps, EDTA Not Reportable 06/04/21 07:04 Large Platelets Not Reportable 06/04/21 07:04 Giant Platelets Not Reportable 06/04/21 07:04 Platelet Satelliting Not Reportable 06/04/21 07:04 Plt Morphology Comment Not Reportable 06/04/21 07:04 RBC Morphology Normal 06/04/21 07:04 Dimorphic RBCs Not Reportable 06/04/21 07:04 Polychromasia Not Reportable 06/04/21 07:04 Hypochromasia Not Reportable 06/04/21 07:04 Poikilocytosis Not Reportable 06/04/21 07:04 Anisocytosis Not Reportable 06/04/21 07:04 Microcytosis Not Reportable 06/04/21 07:04 Macrocytosis Not Reportable 06/04/21 07:04 Spherocytes Not Reportable 06/04/21 07:04 Pappenheimer Bodies Not Reportable 06/04/21 07:04 Sickle Cells Not Reportable 06/04/21 07:04 Target Cells Not Reportable 06/04/21 07:04 Tear Drop Cells Not Reportable 06/04/21 07:04 Ovalocytes Not Reportable 06/04/21 07:04 Helmet Cells Not Reportable 06/04/21 07:04 [place] Bodies Not Reportable 06/04/21 07:04 [place] Rings Not Reportable 06/04/21 07:04 [place] Cells Not Reportable 06/04/21 07:04 Bite Cells Not Reportable 06/04/21 07:04 Crenated Cell Not Reportable 06/04/21 07:04 Elliptocytes Not Reportable 06/04/21 07:04 Acanthocytes (Spur) Not Reportable 06/04/21 07:04 Rouleaux Not Reportable 06/04/21 07:04 Hemoglobin C Crystals Not Reportable 06/04/21 07:04 Schistocytes Not Reportable 06/04/21 07:04 Malaria parasites Not Reportable 06/04/21 07:04 Dick Bodies Not Reportable 06/04/21 07:04 Hem Pathologist Commnt No 06/04/21 07:04 D-Dimer 3584.01 ng/mlDDU (0-234) H 05/27/21 08:09 ABG pH 7.456 (7.320-7.450) H 06/05/21 20:06 POC ABG pCO2 43.4 mmHg (32.0-48.0) 06/05/21 20:06 ABG pCO2 29.0 mm Hg 05/30/21 22:32 POC ABG pO2 102.1 mmHg (83-108) 06/05/21 20:06 ABG pO2 141.8 mm Hg (80.0-90.0) H 05/30/21 22:32 POC ABG HCO3 29.9 06/05/21 20:06 ABG HCO3 19.9 mmol/L (20.0-26.0) L 05/30/21 22:32 ABG O2 Saturation 98.2 (0-100) 06/05/21 20:06 ABG O2 Content 19.9 (0.0-44) 05/30/21 22:32 POC ABG Base Excess 5.4 06/05/21 20:06 ABG Base Excess -2.7 mmol/L (-2.0-3.0) L 05/30/21 22:32 ABG Hemoglobin 10.3 (12.0-17.5) L 06/05/21 20:06 ABG Oxyhemoglobin 97.6 (94-98) 06/05/21 20:06 ABG Carboxyhemoglobin 1.1 % (0.0-5.0) 05/30/21 22:32 ABG Methemoglobin 0.3 (0.0-1.5) 06/05/21 20:06 ABG Sodium 138.7 mmol/L (136.0-145.0) 06/05/21 20:06 ABG Potassium 3.1 mmol/L (3.40-4.50) L 06/05/21 20:06 ABG Chloride 103.0 mmol/L (98-107) 06/05/21 20:06 ABG Glucose 125 mg/dL (65-95) H 06/05/21 20:06 VBG pH 7.254 (7.320-7.420) L 05/24/21 02:09 Oxyhemoglobin 97.1 % (95.0-99.0) 05/30/21 22:32 Carboxyhemoglobin 0.3 (0.5-1.5) L 06/05/21 20:06 FiO2 70 % 05/30/21 22:32 FiO2 % 65.0 06/05/21 20:06 Sodium 145 mmol/L (137-145) 06/10/21 01:52 Potassium 3.7 mmol/L (3.6-5.0) 06/10/21 01:52 Chloride 108.2 mmol/L (98-107) H 06/10/21 01:52 Carbon Dioxide 24 mmol/L (22-30) 06/10/21 01:52 Anion Gap 17 mmol/L 06/10/21 01:52 BUN 32 mg/dL (9-20) H 06/10/21 01:52 Creatinine 1.4 mg/dL (0.8-1.3) H 06/10/21 01:52 Estimated GFR > 60 ml/min 06/10/21 01:52 BUN/Creatinine Ratio 23 % 06/10/21 01:52 Glucose 96 mg/dL (75-100) 06/10/21 01:52 POC Glucose 101 mg/dL (70-105) 06/10/21 10:52 Lactic Acid 1.20 mmol/L (0.7-2.0) 06/06/21 00:04 Calcium 7.8 mg/dL (8.4-10.2) L 06/10/21 01:52 Phosphorus 2.20 mg/dL (2.5-4.5) L D 06/03/21 05:57 Magnesium 2.30 mg/dL (1.7-2.3) 06/06/21 04:35 Ferritin 2742.0 ng/mL (30.0-300.0) H 05/27/21 08:09 Total Bilirubin 0.40 mg/dL (0.1-1.2) 06/10/21 01:52 AST 55 units/L (5-40) H 06/10/21 01:52 ALT 21 units/L (7-56) 06/10/21 01:52 Alkaline Phosphatase 88 units/L (35-129) 06/10/21 01:52 Ammonia 22.0 umol/L (25-60) L 05/23/21 18:48 Lactate Dehydrogenase 642 units/L (91-180) H 05/27/21 08:09 Troponin T < 0.010 ng/mL (0.00-0.029) 05/23/21 18:48 C-Reactive Protein 4.10 mg/dL (0.00-1.30) H 06/09/21 05:51 Total Protein 5.6 g/dL (6.3-8.2) L 06/10/21 01:52 Albumin 1.9 g/dL (3.9-5) L 06/10/21 01:52 Albumin/Globulin Ratio 0.5 % 06/10/21 01:52 Procalcitonin 7.52 ng/mL (<0.15) 06/09/21 05:51 TSH 1.150 mlU/mL (0.270-4.200) 05/23/21 18:48 Arterial Blood Glucose 125 mg/dL (65-95) H 06/05/21 20:06 Arterial Blood Ionized Calcium 4.5 mg/dL (4.6-5.3) L 05/29/21 17:58 Urine Color Eli (Yellow) 05/30/21 01:00 Urine Turbidity Cloudy (Clear) 05/30/21 01:00 Urine pH 5.0 (5.0-7.0) 05/30/21 01:00 Ur Specific [place] 1.019 (1.003-1.030) 05/30/21 01:00 Urine Protein 100 mg/dl mg/dL (Negative) 05/30/21 01:00 Urine Glucose (UA) Neg mg/dL (Negative) 05/30/21 01:00 Urine Ketones Neg mg/dL (Negative) 05/30/21 01:00 Urine Blood Mod (Negative) 05/30/21 01:00 Urine Nitrite Neg (Negative) 05/30/21 01:00 Urine Bilirubin Neg (Negative) 05/30/21 01:00 Urine Urobilinogen 4.0 mg/dL (<2.0) 05/30/21 01:00 Ur Leukocyte Esterase Neg (Negative) 05/30/21 01:00 Urine WBC (Auto) 12.0 /HPF (0.0-6.0) H 05/30/21 01:00 Urine RBC (Auto) 21.0 /HPF (0.0-6.0) 05/30/21 01:00 U Epithel Cells (Auto) 2.0 /HPF (0-13.0) 05/30/21 01:00 Uric Acid Crystals Few 05/30/21 01:00 Urine Mucus Few /HPF 05/30/21 01:00 Urine Yeast (Budding) 2+ /HPF 05/30/21 01:00 Vancomycin Trough 14.3 ug/mL (5.0-20.0) 06/08/21 23:34 Plasma/Serum Alcohol < 0.01 % (0-0.07) 05/23/21 18:48 Proteinase 3 (PR3) Ab <1.0 AI (<1.0) 05/24/21 20:57 Myeloperoxidase Ab <1.0 AI (<1.0) 05/24/21 20:57 Complement C3 108 mg/dL (82-185) 05/24/21 20:57 Complement C4 29 mg/dL (15-53) 05/24/21 20:57 Coronavirus (PCR) Negative (Negative) 05/26/21 08:41 Blood Type A POSITIVE 05/29/21 08:15 Antibody Screen Negative 05/29/21 08:15 Heart/IV: Voiding Method Incontinent Active Medications - Current Medications Current Medications: Generic Name Dose Route Start Last Admin Trade Name Freq PRN Reason Stop Dose Admin Acetaminophen 650 mg 05/29/21 07:05 06/03/21 21:32 Acetaminophen 325 Mg Tab PO 650 mg Q6H PRN Administration Pain, Mild (1-3) Acetaminophen 650 mg 06/03/21 08:21 06/03/21 08:42 Acetaminophen 650 Mg Rect Supp [place] 650 mg Q4H PRN Administration Pain, Mild (1-3) Albuterol/Ipratropium 1 ampul 06/07/21 20:00 06/10/21 14:55 Ipratropium/Albuterol Sulfate 3 Ml Ampul.Neb IH 1 ampul TIDRT MIKE Administration Lipase/Protease/Amylase 1 each 06/03/21 12:23 Lipase 10,500/Protease 25,000/Amylase 43,750 (Units) Dr Rodney FEEDTUBE PRN PRN For Clogged Feeding Tube Docusate Sodium 100 mg 06/07/21 10:00 06/10/21 10:00 Docusate Sodium 100 Mg Cap PO Not Given DAILY MIKE Heparin Sodium (Porcine) 5,000 unit 05/24/21 06:00 06/10/21 14:47 Heparin 5,000 Unit/1 Ml Vial SUB-Q 5,000 unit Q8HR MIKE Administration Vancomycin HCl 1,250 mg/ 275 mls @ 166.667 mls/hr 06/07/21 12:00 06/10/21 11:38 Sodium Chloride IV 166.667 mls/hr Q18H MIKE Administration Metronidazole 500 mg in 100 mls @ 100 mls/hr 06/08/21 13:00 06/10/21 13:00 Flagyl 500 Mg/100 Ml IV 100 mls/hr Q8H MIKE Administration Protocol Cefepime HCl 2 gm in 100 mls @ 200 mls/hr 06/08/21 23:08 06/10/21 14:44 Cefepime/Ns 2 Gm/100 Ml IV 200 mls/hr Q8HR MIKE Administration Protocol Dextrose/Sodium Chloride 1,000 mls @ 75 mls/hr 06/10/21 13:00 D5ns IV DIRECT MIKE Methylprednisolone Sodium Succinate 40 mg 06/08/21 22:00 06/10/21 09:32 Methylprednisolone Sod Succinate 40 Mg/1 Ml Inj IV 40 mg Q12HR MIKE Administration Morphine Sulfate 2 mg 05/23/21 22:01 06/09/21 01:47 Morphine 2 Mg/1 Ml Inj IV 2 mg Q4H PRN Administration Pain, Moderate (4-6) Ondansetron HCl 4 mg 06/04/21 13:41 06/09/21 22:05 Ondansetron 4 Mg/2 Ml Inj IV 4 mg Q4H PRN Administration Nausea And Vomiting Simple Syrup 15 ml 06/03/21 12:23 Simple Syrup 15 Ml FEEDTUBE PRN PRN Hypoglycemia Simple Syrup 30 ml 06/03/21 12:23 Simple Syrup 15 Ml FEEDTUBE PRN PRN Hypoglycemia Sodium Bicarbonate 325 mg 06/03/21 12:23 Sodium Bicarbonate 325 Mg Tab FEEDTUBE PRN PRN For Clogged Feeding Tube Sodium Chloride 10 ml 05/24/21 10:00 06/10/21 09:33 Sodium Chloride 0.9% 10 Ml Flush Syringe IV 10 ml BID MIKE Administration Sodium Chloride 10 ml 05/23/21 22:01 Sodium Chloride 0.9% 10 Ml Flush Syringe IV PRN PRN LINE FLUSH Nutrition/Malnutrition Assess - Dietary Evaluation Nutrition/Malnutrition Findings: Nutrition Notes Start: 05/25/21 09:33 Freq: Status: Active Protocol: Document 06/09/21 17:54 GB (Rec: 06/09/21 18:04 GB [id number]) Nutrition Notes Initial or Follow up Reassessment Current Diagnosis Sepsis Other Pertinent Diagnosis COVID-19 (+), pneu, ?ileus Current Diet Mechanical soft with thin liquids Labs/Tests 06/09: BUN 32, glucose 137, Ca 7.5, AST 55 Pertinent Medications D5 @ 75ml/hr (306kcal), heparinNa, NaCl, vancomycin Height 5 ft 11 in Weight 63 kg [place] Body Weight (kg) 78.18 BMI 19.3 Weight change and time frame 05/24: 77.111kg 06/08: 63kg Change of -14.111kg for -18.2% over 3 weeks r/t COVID+ complications Weight Status Appropriate Subjective/Other Information Diet advanced to mechancial soft with thin liquids. Per chart: diet tolerated well. Family agrees to home with home health. Percent of energy/protein needs met: PO intake of meals at 50% or greater meets 75% of estimated energy needs. Burn Absent Trauma Absent GI Symptoms Vomiting,Constipation Food Allergy No Skin Integrity/Comment No complications reported Current % PO Good (75-100%) Minimum of two criteria No #1 Nutrition Diagnosis Inadequate oral intake Comments: Nutritional supplement beverage ordered 06/03: TF ordered 06/09: diet advanced to mechanical soft, thin liquids. Tolerating well Etiology acute illness As Evidenced by Signs and Symptoms decreased PO for 10-12 days [employer] WORK[employer] 06/03: TF required to meet needs. 06/09: Diet advanced on 06/07 Diagnosis Progress(for reassessment Resolved documentation) Is patient on ventilator? No Is Patient Ambulatory and/or Out of Bed No [facility] [phone] Kcal/Kg value to use for calculation 25 Approximate Energy Requirements Using 1575 kcal/Kg Calculation Used for Recommendations Kcal/kg Additional Notes Pro needs 1-1.5g/kg @63k- 95g/day Fluid needs 1ml/kcal Nutrition Intervention Change Diet Order: continue Nutrition Support: n/a Goal #1 PO intake of meals to be 50% or greater TID daily for LOS Goal #2 Weight to maintain within +/-3 % current weight for LOS 06/09: weight change r/t COVID+ at -18% Anticipated Discharge Needs: home with home health Follow-Up By: 06/16/21 Additional Comments F/U: PO intake, weight - Attestation Statement I have reviewed and agreed w/ Malnutrition eval & tx plan: Yes
[2021-06-11] MEDS: CEFEPIME/NS 2 GM/100 ML 2 GM/100 ML BAG IV SCH ×4 (02:28→22:57)
[2021-06-11] MEDS: metroNIDAZOLE/NS 500 MG/100 ML 500 MG/100 ML BAG IV SCH ×3 (04:52→21:56)
[2021-06-11] MEDS: D5W/0.9% NACL 1,000 ML IV SCH ×2 (04:53→21:57)
[2021-06-11 06:17] LABS: Hematocrit 28.1 % (35.5-45.6); Hemoglobin 9.1 gm/dl (11.8-15.2); Mean Corpuscular HGB Conc 33 % (32-34); Mean Corpuscular Volume 84 fl (84-94); Platelet Count 117 K/mm3 (140-440); Red Blood Count 3.35 M/mm3 (3.65-5.03)
[2021-06-11] MEDS: VANCOMYCIN 1,250 MG in SODIUM CHLORIDE 0.9% 250ML 250 ML IV SCH (06:17)
[2021-06-11] MEDS: HEPARIN 5,000 UNIT/1 ML VIAL SUB-Q SCH ×3 (06:17→22:06)
[2021-06-11 06:34] LABS: BUN/Creatinine Ratio 33; Blood Urea Nitrogen 40 mg/dL (9-20); Calcium 7.8 mg/dL (8.4-10.2); Hemolysis Index 1
[2021-06-11 07:53] LABS: Band Neutrophils # (Manual) 0.1 K/mm3; Total Cells Counted 100
[2021-06-11 07:54] LABS: Platelet Estimate Consistent w Auto; RBC Morphology Normal
[2021-06-11] MEDS ORDERED: CALCIUM GLUCONATE 2,000 MG in SODIUM CHLORIDE 0.9% 100 ML IV ONE (08:30)
[2021-06-11] MEDS: IPRATROPIUM/ALBUTEROL SULFATE 3 ML AMPUL.NEB IH SCH ×3 (09:06→21:52)
[2021-06-11] MEDS: methylPREDNISolone Sod Succinate 40 MG/1 ML INJ IV SCH ×2 (09:07→22:05)
[2021-06-11] MEDS: DOCUSATE SODIUM 100 MG CAP PO SCH (09:08)
--- NOTE | 2021-06-11 11:20 | Progress Note ---
Assessment and Plan Impression: * Acute kidney injury secondary to ATN likely related to COVID 19 * Acute hypoxic respiratory failure secondary to COVID 19 PNA * Azotemia * Hyperkalemia * Metabolic acidosis * Hypernatremia Plan: * creatinine is stable 1.2->1.4->1.2, on D5 1/2NS to encourage renal perfusion * Sodium slightly higher at 146, continue free water as above * off baclofen * agree with Ca repletion * Keep MAP>65 * Management of COVID 19 PNA to primary team/ID * Dose medications for renal function * AM labs * Renal diet * follow up lytes prn * Prognosis guarded Subjective Date of service: 06/11/21 Principal diagnosis: Acute hypoxemic resp failure; Pneumonia; PUI COVID-19 infection Interval history: No acute changes noted, patient resting in bed this AM, on Bipap Objective - Exam Narrative Exam: General appearance: well-developed, appears stated age EENT: ATNC, PERRL Neck: no JVD Respiratory: Present: Clear to Ascultation Cardiology: regular, S1S2 Gastrointestinal: normoactive bowel sounds Integumentary: no rash, warm and dry Neurologic: no focal deficit - Vital Signs Vital signs: Vital Signs - 12hr 06/11/21 06/11/21 01:25 02:00 Pulse Rate 73 Respiratory 21 Rate O2 Sat by Pulse 96 96 Oximetry - Lab 06/11/21 05:51 06/11/21 05:51 Most recent lab results ABG pH 7.456 (7.320-7.450) H 06/05/21 20:06 ABG pCO2 29.0 mm Hg 05/30/21 22:32 ABG pO2 141.8 mm Hg (80.0-90.0) H 05/30/21 22:32 ABG HCO3 19.9 mmol/L (20.0-26.0) L 05/30/21 22:32 ABG O2 Saturation 98.2 (0-100) 06/05/21 20:06 Calcium 7.8 mg/dL (8.4-10.2) L 06/11/21 05:51 Phosphorus 2.20 mg/dL (2.5-4.5) L D 06/03/21 05:57 Magnesium 2.30 mg/dL (1.7-2.3) 06/06/21 04:35 Medications & Allergies - Medications Allergies/Adverse Reactions: Allergies No Known Allergies Allergy (Unverified 02/12/17 15:47) Home Medications: Home Medications Medication Instructions Recorded Confirmed Last Taken Type No Known Home Medications [No 05/31/21 05/31/21 Unknown History Reported Home Medications] Active Medications: Generic Name Dose Route Start Last Admin Trade Name Freq PRN Reason Stop Dose Admin Acetaminophen 650 mg 05/29/21 07:05 06/03/21 21:32 Acetaminophen 325 Mg Tab PO 650 mg Q6H PRN Administration Pain, Mild (1-3) Acetaminophen 650 mg 06/03/21 08:21 06/03/21 08:42 Acetaminophen 650 Mg Rect Supp [place] 650 mg Q4H PRN Administration Pain, Mild (1-3) Albuterol/Ipratropium 1 ampul 06/07/21 20:00 06/11/21 09:06 Ipratropium/Albuterol Sulfate 3 Ml Ampul.Neb IH 1 ampul TIDRT MIKE Administration Lipase/Protease/Amylase 1 each 06/03/21 12:23 Lipase 10,500/Protease 25,000/Amylase 43,750 (Units) Dr Rodney FEEDTUBE PRN PRN For Clogged Feeding Tube Docusate Sodium 100 mg 06/07/21 10:00 06/11/21 09:08 Docusate Sodium 100 Mg Cap PO Not Given DAILY MIKE Heparin Sodium (Porcine) 5,000 unit 05/24/21 06:00 06/11/21 06:17 Heparin 5,000 Unit/1 Ml Vial SUB-Q 5,000 unit Q8HR MIKE Administration Vancomycin HCl 1,250 mg/ 275 mls @ 166.667 mls/hr 06/07/21 12:00 06/11/21 06:17 Sodium Chloride IV 166.667 mls/hr Q18H MIKE Administration Metronidazole 500 mg in 100 mls @ 100 mls/hr 06/08/21 13:00 06/11/21 04:52 Flagyl 500 Mg/100 Ml IV 100 mls/hr Q8H MIKE Administration Protocol Cefepime HCl 2 gm in 100 mls @ 200 mls/hr 06/08/21 23:08 06/11/21 06:17 Cefepime/Ns 2 Gm/100 Ml IV 200 mls/hr Q8HR MIKE Administration Protocol Dextrose/Sodium Chloride 1,000 mls @ 75 mls/hr 06/10/21 13:00 06/11/21 04:53 D5ns IV 75 mls/hr DIRECT MIKE Administration Methylprednisolone Sodium Succinate 40 mg 06/08/21 22:00 06/11/21 09:07 Methylprednisolone Sod Succinate 40 Mg/1 Ml Inj IV 40 mg Q12HR MIKE Administration Morphine Sulfate 2 mg 05/23/21 22:01 06/09/21 01:47 Morphine 2 Mg/1 Ml Inj IV 2 mg Q4H PRN Administration Pain, Moderate (4-6) Ondansetron HCl 4 mg 06/04/21 13:41 06/09/21 22:05 Ondansetron 4 Mg/2 Ml Inj IV 4 mg Q4H PRN Administration Nausea And Vomiting Simple Syrup 15 ml 06/03/21 12:23 Simple Syrup 15 Ml FEEDTUBE PRN PRN Hypoglycemia Simple Syrup 30 ml 06/03/21 12:23 Simple Syrup 15 Ml FEEDTUBE PRN PRN Hypoglycemia Sodium Bicarbonate 325 mg 06/03/21 12:23 Sodium Bicarbonate 325 Mg Tab FEEDTUBE PRN PRN For Clogged Feeding Tube Sodium Chloride 10 ml 05/24/21 10:00 06/11/21 09:14 Sodium Chloride 0.9% 10 Ml Flush Syringe IV 10 ml BID MIKE Administration Sodium Chloride 10 ml 05/23/21 22:01 Sodium Chloride 0.9% 10 Ml Flush Syringe IV PRN PRN LINE FLUSH
--- NOTE | 2021-06-11 14:44 | Progress Note ---
Assessment and Plan Cultures: SARS CoV2 PCR: Positive as outpatient. Negative here x 2 05/23/2021 blood culture: no growth 05/29/2021 blood culture no growth 05/30/2021 blood culture no growth 05/30/2021 urine culture [place] 05/31/2021 blood culture no growth 06/03/2021 blood culture no growth today A/P: 55/M with initially seen on 05/23/2021 due to bilateral pneumonia with positive Covid test outpatient but negative x2 inpatient noted with new fever and repeat CT chest shows bilateral basilar pneumonia with cavitation: #Sepsis: No fever since 06/04/2021. Likely secondary to bilateral pneumonia. #Bilateral pneumonia with cavitation: ? secondary to COVID-19, tested positive as outpatient, but negative here x 2. During the last week noted elevated procalcitonin from 0.3-->24 in the setting of resolving ANGELES. Also noted CRP from 5.2-->19. CT abdomen shows severe aspiration type pneumonia in both bases with a currently 30 lesion of 20 cm on the left lower lobe. #Acute hypoxic respiratory failure: On BiPAP. Likely due to pneumonia. VQ scan low probability for PE. #Recent ileus: Resolved. #Acute renal failure: Nephrology on board. Improving. #Hypernatremia: Per primary team/ renal improving #Tachycardia #Elevated ddimer: VQ low prob for PE Recs: -Taper off of steroid -Procal improving. -Start cefepime and metronidazole -Continue vancomycin -Check MRSA PCR -PLan 8 days of antibiotics Dayan Ferguson MD [facility] ([facility] O: [phone] F: [phone] Subjective Date of service: 06/11/21 Principal diagnosis: Acute hypoxemic resp failure; Pneumonia; PUI COVID-19 infection Interval history: Afebrile, no acute change. Currently on BiPAP. Objective - Exam Narrative Exam: General appearance: Alert on BiPAP Eyes: anicteric sclerae, moist conjunctivae; no lid-lag; PERRLA HENT: Normocephalic, Atraumatic; normal external ears, nares open, oropharynx limited Neck: supple, tracheal midline, no JVD Lungs: Rhonchi CV: RRR no murmur Abdomen: Soft, non-tender; no masses or hepatosplenomegaly Extremities: no edema, no cyanosis Skin: No rash. Psych: no agitated Neuro: alert follows commands - Constitutional Vitals: Vital Signs Temp Pulse Resp BP Pulse Ox 98.6 F 88 20 119/58 90 06/11/21 11:51 06/11/21 11:51 06/11/21 11:51 06/11/21 11:51 06/11/21 11:51 Temperature -Last 24 Hours Temperature 98.6 F Temperature 98.3 F Temperature 97.3 F Temperature 97.5 F - Labs CBC & Chem 7: 06/11/21 05:51 06/11/21 05:51 Labs: Abnormal lab results 06/10/21 06/10/21 06/11/21 Range/Units 16:14 22:45 05:51 RBC 3.35 L (3.65-5.03) M/mm3 Hgb 9.1 L (11.8-15.2) gm/dl Hct 28.1 L (35.5-45.6) % MCH 27 L (28-32) pg Plt Count 117 L (140-440) K/mm3 Seg Neuts % (Manual) 93.0 H (40.0-70.0) % Lymphocytes % (Manual) 1.0 L (13.4-35.0) % Lymphocytes # (Manual) 0.0 L (1.2-5.4) K/mm3 Sodium (137-145) mmol/L Chloride (98-107) mmol/L BUN (9-20) mg/dL Glucose (75-100) mg/dL POC Glucose 111 H 107 H (70-105) mg/dL Calcium (8.4-10.2) mg/dL Vancomycin Trough (5.0-20.0) ug/mL 06/11/21 06/11/21 06/11/21 Range/Units 05:51 05:51 08:28 RBC (3.65-5.03) M/mm3 Hgb (11.8-15.2) gm/dl Hct (35.5-45.6) % MCH (28-32) pg Plt Count (140-440) K/mm3 Seg Neuts % (Manual) (40.0-70.0) % Lymphocytes % (Manual) (13.4-35.0) % Lymphocytes # (Manual) (1.2-5.4) K/mm3 Sodium 146 H (137-145) mmol/L Chloride 110.9 H (98-107) mmol/L BUN 40 H (9-20) mg/dL Glucose 119 H (75-100) mg/dL POC Glucose 109 H (70-105) mg/dL Calcium 7.8 L (8.4-10.2) mg/dL Vancomycin Trough 22.6 H (5.0-20.0) ug/mL 06/11/21 Range/Units 11:36 RBC (3.65-5.03) M/mm3 Hgb (11.8-15.2) gm/dl Hct (35.5-45.6) % MCH (28-32) pg Plt Count (140-440) K/mm3 Seg Neuts % (Manual) (40.0-70.0) % Lymphocytes % (Manual) (13.4-35.0) % Lymphocytes # (Manual) (1.2-5.4) K/mm3 Sodium (137-145) mmol/L Chloride (98-107) mmol/L BUN (9-20) mg/dL Glucose (75-100) mg/dL POC Glucose 149 H (70-105) mg/dL Calcium (8.4-10.2) mg/dL Vancomycin Trough (5.0-20.0) ug/mL
--- NOTE | 2021-06-11 15:06 | Progress Note ---
Assessment and Plan Assessment and plan: #Acute hypoxic respiratory failure -Currently on BiPAP, will maintain SpO2 >90% -VQ scan low probability for PE on admission -continue methylprednisone 40 mg daily; will continue to taper per ID recs -s/p 1 dose of Lasix -TTE 06/06: LVEF 55 to 60%, no valvular or chamber abnormalities -Pulmonary consulted, recommendations appreciated -patient continues to deteriorate will possibly need bronchoscopy to address the cavitary lesion; will refer to Pulmonology recs #Pneumonia -CT abdomen pelvis revealed severe bilateral pneumonia and a cavitary lesion in the left lower lobe -likely secondary to aspiration during ileus -CT chest ordered -CRP 19.6 and procal 24.30, repeat pending -continue vancomycin, cefepime and flagyl per ID recommendations -completed azithromycin and Rocephin in past #Severe sepsis- improving -repeat blood cultures no growth to date -procalcitonin 24.30, repeat pending -continue vancomycin, cefepime and flagyl -s/p zosyn -likely 2/2 to PNA #Hypocalcemia -Calcium 7.8 -Repleted; continue to monitor #COVID-19 infection -Diagnosed on 05/11 -s/p 10 days of steroids, restarted on 06/04 due to worsening Pulmonary status -Tapering steroids per ID recommendations #[id number] secondary to poor oral intake #Acute encephalopathy-Resolved #ANGELES, resolved #Hyperkalemia, resolved #Ileus-resolved #Lactic acidosis-resolved #Discharge planning -Patient and family agreed to the home with home health upon discharge -will continue to wean oxygen to at least 4 L/min prior to discharge Disposition Plan: Continue medical management Total Time Spent with Patient (Minutes): 35 History Interval history: No acute events overnight. Hospitalist Physical - Constitutional Vitals: Temp Pulse Resp BP Pulse Ox 98.6 F 88 20 119/58 90 06/11/21 11:51 06/11/21 11:51 06/11/21 11:51 06/11/21 11:51 06/11/21 11:51 General appearance: Present: no acute distress, cachectic - EENT Eyes: Present: PERRL, EOM intact ENT: hearing intact, other (Unable to assess mucosal due to being on BiPAP) - Neck Neck: Present: supple, normal ROM - Respiratory Respiratory effort: labored (Currently on BiPAP) - Cardiovascular Rhythm: regular Heart Sounds: Present: S1 & S2 - Extremities Extremities: no ischemia, pulses intact, pulses symmetrical, No edema, normal temperature, normal color Peripheral Pulses: within normal limits - Abdominal General gastrointestinal: soft, non-tender, non-distended, normal bowel sounds - Integumentary Integumentary: Present: clear, warm, dry - Psychiatric Psychiatric: appropriate mood/affect, intact judgment & insight, memory intact, cooperative - Neurologic Neurologic: CNII-XII intact, moves all extremities - Allied Health Allied health notes reviewed: nursing HEART Score - HEART Score EKG: Non-specific Age: 45-65 Risk factors: 1-2 risk factors Troponin: Troponin T < 0.010 ng/mL (0.00-0.029) 05/23/21 18:48 - Critical Actions Critical Actions: 0-3 pts:0.9-1.7%risk of adverse cardiac event.Candidate for discharge Results - Labs CBC & Chem 7: 06/11/21 05:51 06/11/21 05:51 Labs: Laboratory Last Values WBC 4.6 K/mm3 (4.5-11.0) 06/11/21 05:51 RBC 3.35 M/mm3 (3.65-5.03) L 06/11/21 05:51 Hgb 9.1 gm/dl (11.8-15.2) L 06/11/21 05:51 Hct 28.1 % (35.5-45.6) L 06/11/21 05:51 MCV 84 fl (84-94) 06/11/21 05:51 MCH 27 pg (28-32) L 06/11/21 05:51 MCHC 33 % (32-34) 06/11/21 05:51 RDW 15.0 % (13.2-15.2) 06/11/21 05:51 Plt Count 117 K/mm3 (140-440) L 06/11/21 05:51 Lymph % (Auto) Perinatal Tech 06/01/21 07:10 [place] % (Auto) Perinatal Tech 06/01/21 07:10 Eos % (Auto) Perinatal Tech 06/01/21 07:10 Baso % (Auto) Perinatal Tech 06/01/21 07:10 Lymph # (Auto) Perinatal Tech 06/01/21 07:10 [place] # (Auto) Perinatal Tech 06/01/21 07:10 Eos # (Auto) Perinatal Tech 06/01/21 07:10 Baso # (Auto) Perinatal Tech 06/01/21 07:10 Add Manual Diff Complete 06/11/21 05:51 Total Counted 100 06/11/21 05:51 Seg Neutrophils % Perinatal Tech 06/01/21 07:10 Seg Neuts % (Manual) 93.0 % (40.0-70.0) H 06/11/21 05:51 Band Neutrophils % 3.0 % 06/11/21 05:51 Lymphocytes % (Manual) 1.0 % (13.4-35.0) L 06/11/21 05:51 Reactive Lymphs % (Man) 1.0 % 06/01/21 07:10 Monocytes % (Manual) 3.0 % (0.0-7.3) 06/11/21 05:51 Nucleated RBC % Not Reportable 06/11/21 05:51 Seg Neutrophils # Perinatal Tech 06/01/21 07:10 Seg Neutrophils # Man 4.3 K/mm3 (1.8-7.7) 06/11/21 05:51 Band Neutrophils # 0.1 K/mm3 06/11/21 05:51 Lymphocytes # (Manual) 0.0 K/mm3 (1.2-5.4) L 06/11/21 05:51 Abs React Lymphs (Man) 0.0 K/mm3 06/11/21 05:51 Monocytes # (Manual) 0.1 K/mm3 (0.0-0.8) 06/11/21 05:51 Eosinophils # (Manual) 0.0 K/mm3 (0.0-0.4) 06/11/21 05:51 Basophils # (Manual) 0.0 K/mm3 (0.0-0.1) 06/11/21 05:51 Metamyelocytes # 0.0 K/mm3 06/11/21 05:51 Myelocytes # 0.0 K/mm3 06/11/21 05:51 Promyelocytes # 0.0 K/mm3 06/11/21 05:51 Blast Cells # 0.0 K/mm3 06/11/21 05:51 WBC Morphology Not Reportable 06/11/21 05:51 Hypersegmented Neuts Not Reportable 06/11/21 05:51 Hyposegmented Neuts Not Reportable 06/11/21 05:51 Hypogranular Neuts Not Reportable 06/11/21 05:51 Smudge Cells Not Reportable 06/11/21 05:51 Toxic Granulation Not Reportable 06/11/21 05:51 Toxic Vacuolation Not Reportable 06/11/21 05:51 Dohle Bodies Not Reportable 06/11/21 05:51 Pelger-Huet Anomaly Not Reportable 06/11/21 05:51 Kaci Rods Not Reportable 06/11/21 05:51 Platelet Estimate Consistent w auto 06/11/21 05:51 Clumped Platelets Not Reportable 06/11/21 05:51 Plt Clumps, EDTA Not Reportable 06/11/21 05:51 Large Platelets Not Reportable 06/11/21 05:51 Giant Platelets Not Reportable 06/11/21 05:51 Platelet Satelliting Not Reportable 06/11/21 05:51 Plt Morphology Comment Not Reportable 06/11/21 05:51 RBC Morphology Normal 06/11/21 05:51 Dimorphic RBCs Not Reportable 06/11/21 05:51 Polychromasia Not Reportable 06/11/21 05:51 Hypochromasia Not Reportable 06/11/21 05:51 Poikilocytosis Not Reportable 06/11/21 05:51 Anisocytosis Not Reportable 06/11/21 05:51 Microcytosis Not Reportable 06/11/21 05:51 Macrocytosis Not Reportable 06/11/21 05:51 Spherocytes Not Reportable 06/11/21 05:51 Pappenheimer Bodies Not Reportable 06/11/21 05:51 Sickle Cells Not Reportable 06/11/21 05:51 Target Cells Not Reportable 06/11/21 05:51 Tear Drop Cells Not Reportable 06/11/21 05:51 Ovalocytes Not Reportable 06/11/21 05:51 Helmet Cells Not Reportable 06/11/21 05:51 [place] Bodies Not Reportable 06/11/21 05:51 [place] Rings Not Reportable 06/11/21 05:51 [place] Cells Not Reportable 06/11/21 05:51 Bite Cells Not Reportable 06/11/21 05:51 Crenated Cell Not Reportable 06/11/21 05:51 Elliptocytes Not Reportable 06/11/21 05:51 Acanthocytes (Spur) Not Reportable 06/11/21 05:51 Rouleaux Not Reportable 06/11/21 05:51 Hemoglobin C Crystals Not Reportable 06/11/21 05:51 Schistocytes Not Reportable 06/11/21 05:51 Malaria parasites Not Reportable 06/11/21 05:51 Dick Bodies Not Reportable 06/11/21 05:51 Hem Pathologist Commnt No 06/11/21 05:51 D-Dimer 3584.01 ng/mlDDU (0-234) H 05/27/21 08:09 ABG pH 7.456 (7.320-7.450) H 06/05/21 20:06 POC ABG pCO2 43.4 mmHg (32.0-48.0) 06/05/21 20:06 ABG pCO2 29.0 mm Hg 05/30/21 22:32 POC ABG pO2 102.1 mmHg (83-108) 06/05/21 20:06 ABG pO2 141.8 mm Hg (80.0-90.0) H 05/30/21 22:32 POC ABG HCO3 29.9 06/05/21 20:06 ABG HCO3 19.9 mmol/L (20.0-26.0) L 05/30/21 22:32 ABG O2 Saturation 98.2 (0-100) 06/05/21 20:06 ABG O2 Content 19.9 (0.0-44) 05/30/21 22:32 POC ABG Base Excess 5.4 06/05/21 20:06 ABG Base Excess -2.7 mmol/L (-2.0-3.0) L 05/30/21 22:32 ABG Hemoglobin 10.3 (12.0-17.5) L 06/05/21 20:06 ABG Oxyhemoglobin 97.6 (94-98) 06/05/21 20:06 ABG Carboxyhemoglobin 1.1 % (0.0-5.0) 05/30/21 22:32 ABG Methemoglobin 0.3 (0.0-1.5) 06/05/21 20:06 ABG Sodium 138.7 mmol/L (136.0-145.0) 06/05/21 20:06 ABG Potassium 3.1 mmol/L (3.40-4.50) L 06/05/21 20:06 ABG Chloride 103.0 mmol/L (98-107) 06/05/21 20:06 ABG Glucose 125 mg/dL (65-95) H 06/05/21 20:06 VBG pH 7.254 (7.320-7.420) L 05/24/21 02:09 Oxyhemoglobin 97.1 % (95.0-99.0) 05/30/21 22:32 Carboxyhemoglobin 0.3 (0.5-1.5) L 06/05/21 20:06 FiO2 70 % 05/30/21 22:32 FiO2 % 65.0 06/05/21 20:06 Sodium 146 mmol/L (137-145) H 06/11/21 05:51 Potassium 3.7 mmol/L (3.6-5.0) 06/11/21 05:51 Chloride 110.9 mmol/L (98-107) H 06/11/21 05:51 Carbon Dioxide 24 mmol/L (22-30) 06/11/21 05:51 Anion Gap 15 mmol/L 06/11/21 05:51 BUN 40 mg/dL (9-20) H 06/11/21 05:51 Creatinine 1.2 mg/dL (0.8-1.3) 06/11/21 05:51 Estimated GFR > 60 ml/min 06/11/21 05:51 BUN/Creatinine Ratio 33 % 06/11/21 05:51 Glucose 119 mg/dL (75-100) H 06/11/21 05:51 POC Glucose 149 mg/dL (70-105) H 06/11/21 11:36 Lactic Acid 1.20 mmol/L (0.7-2.0) 06/06/21 00:04 Calcium 7.8 mg/dL (8.4-10.2) L 06/11/21 05:51 Phosphorus 2.20 mg/dL (2.5-4.5) L D 06/03/21 05:57 Magnesium 2.30 mg/dL (1.7-2.3) 06/06/21 04:35 Ferritin 2742.0 ng/mL (30.0-300.0) H 05/27/21 08:09 Total Bilirubin 0.40 mg/dL (0.1-1.2) 06/10/21 01:52 AST 55 units/L (5-40) H 06/10/21 01:52 ALT 21 units/L (7-56) 06/10/21 01:52 Alkaline Phosphatase 88 units/L (35-129) 06/10/21 01:52 Ammonia 22.0 umol/L (25-60) L 05/23/21 18:48 Lactate Dehydrogenase 642 units/L (91-180) H 05/27/21 08:09 Troponin T < 0.010 ng/mL (0.00-0.029) 05/23/21 18:48 C-Reactive Protein 4.10 mg/dL (0.00-1.30) H 06/09/21 05:51 Total Protein 5.6 g/dL (6.3-8.2) L 06/10/21 01:52 Albumin 1.9 g/dL (3.9-5) L 06/10/21 01:52 Albumin/Globulin Ratio 0.5 % 06/10/21 01:52 Procalcitonin 7.52 ng/mL (<0.15) 06/09/21 05:51 TSH 1.150 mlU/mL (0.270-4.200) 05/23/21 18:48 Arterial Blood Glucose 125 mg/dL (65-95) H 06/05/21 20:06 Arterial Blood Ionized Calcium 4.5 mg/dL (4.6-5.3) L 05/29/21 17:58 Urine Color Eli (Yellow) 05/30/21 01:00 Urine Turbidity Cloudy (Clear) 05/30/21 01:00 Urine pH 5.0 (5.0-7.0) 05/30/21 01:00 Ur Specific [place] 1.019 (1.003-1.030) 05/30/21 01:00 Urine Protein 100 mg/dl mg/dL (Negative) 05/30/21 01:00 Urine Glucose (UA) Neg mg/dL (Negative) 05/30/21 01:00 Urine Ketones Neg mg/dL (Negative) 05/30/21 01:00 Urine Blood Mod (Negative) 05/30/21 01:00 Urine Nitrite Neg (Negative) 05/30/21 01:00 Urine Bilirubin Neg (Negative) 05/30/21 01:00 Urine Urobilinogen 4.0 mg/dL (<2.0) 05/30/21 01:00 Ur Leukocyte Esterase Neg (Negative) 05/30/21 01:00 Urine WBC (Auto) 12.0 /HPF (0.0-6.0) H 05/30/21 01:00 Urine RBC (Auto) 21.0 /HPF (0.0-6.0) 05/30/21 01:00 U Epithel Cells (Auto) 2.0 /HPF (0-13.0) 05/30/21 01:00 Uric Acid Crystals Few 05/30/21 01:00 Urine Mucus Few /HPF 05/30/21 01:00 Urine Yeast (Budding) 2+ /HPF 05/30/21 01:00 Vancomycin Trough 22.6 ug/mL (5.0-20.0) H 06/11/21 05:51 Plasma/Serum Alcohol < 0.01 % (0-0.07) 05/23/21 18:48 Proteinase 3 (PR3) Ab <1.0 AI (<1.0) 05/24/21 20:57 Myeloperoxidase Ab <1.0 AI (<1.0) 05/24/21 20:57 Complement C3 108 mg/dL (82-185) 05/24/21 20:57 Complement C4 29 mg/dL (15-53) 05/24/21 20:57 Coronavirus (PCR) Negative (Negative) 05/26/21 08:41 Blood Type A POSITIVE 05/29/21 08:15 Antibody Screen Negative 05/29/21 08:15 Heart/IV: Voiding Method Condom Catheter Active Medications - Current Medications Current Medications: Generic Name Dose Route Start Last Admin Trade Name Freq PRN Reason Stop Dose Admin Acetaminophen 650 mg 05/29/21 07:05 06/03/21 21:32 Acetaminophen 325 Mg Tab PO 650 mg Q6H PRN Administration Pain, Mild (1-3) Acetaminophen 650 mg 06/03/21 08:21 06/03/21 08:42 Acetaminophen 650 Mg Rect Supp [place] 650 mg Q4H PRN Administration Pain, Mild (1-3) Albuterol/Ipratropium 1 ampul 06/07/21 20:00 06/11/21 14:01 Ipratropium/Albuterol Sulfate 3 Ml Ampul.Neb IH 1 ampul TIDRT MIKE Administration Lipase/Protease/Amylase 1 each 06/03/21 12:23 Lipase 10,500/Protease 25,000/Amylase 43,750 (Units) Dr Rodney FEEDTUBE PRN PRN For Clogged Feeding Tube Docusate Sodium 100 mg 06/07/21 10:00 06/11/21 09:08 Docusate Sodium 100 Mg Cap PO Not Given DAILY MIKE Heparin Sodium (Porcine) 5,000 unit 05/24/21 06:00 06/11/21 14:12 Heparin 5,000 Unit/1 Ml Vial SUB-Q 5,000 unit Q8HR MIKE Administration Metronidazole 500 mg in 100 mls @ 100 mls/hr 06/08/21 13:00 06/11/21 12:32 Flagyl 500 Mg/100 Ml IV 100 mls/hr Q8H MIKE Administration Protocol Cefepime HCl 2 gm in 100 mls @ 200 mls/hr 06/08/21 23:08 06/11/21 14:10 Cefepime/Ns 2 Gm/100 Ml IV 200 mls/hr Q8HR MIKE Administration Protocol Dextrose/Sodium Chloride 1,000 mls @ 75 mls/hr 06/10/21 13:00 06/11/21 04:53 D5ns IV 75 mls/hr DIRECT MIKE Administration Vancomycin HCl 1 gm in 250 mls @ 166.667 mls/hr 06/12/21 08:00 Vancomycin/Ns 1 Gm/250 Ml IV Q24H MIKE Methylprednisolone Sodium Succinate 40 mg 06/08/21 22:00 06/11/21 09:07 Methylprednisolone Sod Succinate 40 Mg/1 Ml Inj IV 40 mg Q12HR MIKE Administration Morphine Sulfate 2 mg 05/23/21 22:01 06/09/21 01:47 Morphine 2 Mg/1 Ml Inj IV 2 mg Q4H PRN Administration Pain, Moderate (4-6) Ondansetron HCl 4 mg 06/04/21 13:41 06/09/21 22:05 Ondansetron 4 Mg/2 Ml Inj IV 4 mg Q4H PRN Administration Nausea And Vomiting Simple Syrup 15 ml 06/03/21 12:23 Simple Syrup 15 Ml FEEDTUBE PRN PRN Hypoglycemia Simple Syrup 30 ml 06/03/21 12:23 Simple Syrup 15 Ml FEEDTUBE PRN PRN Hypoglycemia Sodium Bicarbonate 325 mg 06/03/21 12:23 Sodium Bicarbonate 325 Mg Tab FEEDTUBE PRN PRN For Clogged Feeding Tube Sodium Chloride 10 ml 05/24/21 10:00 06/11/21 09:14 Sodium Chloride 0.9% 10 Ml Flush Syringe IV 10 ml BID MIKE Administration Sodium Chloride 10 ml 05/23/21 22:01 Sodium Chloride 0.9% 10 Ml Flush Syringe IV PRN PRN LINE FLUSH Nutrition/Malnutrition Assess - Dietary Evaluation Nutrition/Malnutrition Findings: Nutrition Notes Start: 05/25/21 09:33 Freq: Status: Active Protocol: Document 06/09/21 17:54 GB (Rec: 06/09/21 18:04 GB [id number]) Nutrition Notes Initial or Follow up Reassessment Current Diagnosis Sepsis Other Pertinent Diagnosis COVID-19 (+), pneu, ?ileus Current Diet Mechanical soft with thin liquids Labs/Tests 06/09: BUN 32, glucose 137, Ca 7.5, AST 55 Pertinent Medications D5 @ 75ml/hr (306kcal), heparinNa, NaCl, vancomycin Height 5 ft 11 in Weight 63 kg [place] Body Weight (kg) 78.18 BMI 19.3 Weight change and time frame 05/24: 77.111kg 06/08: 63kg Change of -14.111kg for -18.2% over 3 weeks r/t COVID+ complications Weight Status Appropriate Subjective/Other Information Diet advanced to mechancial soft with thin liquids. Per chart: diet tolerated well. Family agrees to home with home health. Percent of energy/protein needs met: PO intake of meals at 50% or greater meets 75% of estimated energy needs. Burn Absent Trauma Absent GI Symptoms Vomiting,Constipation Food Allergy No Skin Integrity/Comment No complications reported Current % PO Good (75-100%) Minimum of two criteria No #1 Nutrition Diagnosis Inadequate oral intake Comments: Nutritional supplement beverage ordered 06/03: TF ordered 06/09: diet advanced to mechanical soft, thin liquids. 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 06/09: Diet advanced on 06/07 Diagnosis Progress(for reassessment Resolved documentation) Is patient on ventilator? No Is Patient Ambulatory and/or Out of Bed No [facility] 1789.080 Kcal/Kg value to use for calculation 25 Approximate Energy Requirements Using 1575 kcal/Kg Calculation Used for Recommendations Kcal/kg Additional Notes Pro needs 1-1.5g/kg @63k- 95g/day Fluid needs 1ml/kcal Nutrition Intervention Change Diet Order: continue Nutrition Support: n/a Goal #1 PO intake of meals to be 50% or greater TID daily for LOS Goal #2 Weight to maintain within +/-3 % current weight for LOS 06/09: weight change r/t COVID+ at -18% Anticipated Discharge Needs: home with home health Follow-Up By: 06/16/21 Additional Comments F/U: PO intake, weight - Attestation Statement I have reviewed and agreed w/ Malnutrition eval & tx plan: Yes
--- NOTE | 2021-06-11 22:04 | Progress Note ---
Assessment and Plan 55-year-old -[place] male who was diagnosed with COVID-19 on May 11, 2021 presents to the emergency room today with complaints of shortness of breath and decreased oral intake over the past 10 to 12 days. Patient also has known history of CVA about 20 years ago and it is unknown whether patient had any residual deficits. Patient has not been able to communicate well and most of the history was gotten from the ER staff. Initial oxygen saturation according to EMS was about 70% and patient was placed on nonrebreather. He was eventually placed on oxygen by nasal cannula upon arrival in the emergency room with significant improvement in his oxygen saturation. Work-up in the emergency room reveals a D-dimer greater than 10,000, sodium 151 potassium of 5.1, BUN of 180) and creatinine of 4.3. Patient had a lactic acid of 2.3. WBC was 11.8. CT scan of the head shows no acute abnormality. Chest x-ray shows mild patchy multifocal airspace disease throughout the lungs. No pleural effusion. VQ scan done showed low probability for pulmonary embolism. Patient being admitted with pneumonia possibly secondary to COVID-19, hypoxia and encephalopathy. Patients COVID 19 PCR reported negative. Patient presently sleeping on BIPAP 20/10, rate 14, FIO2 90% and O2 saturation running 100%. Not responding to verbal stimuli. Patient afebrile. No Leukocytosis. Blood pressure 132/71, Pulse 76. Chest xray 06/03/21: reported diffuse hazy airspace opacities bilaterally, mildly worsened compared to reference exam. No pneumothorax. Chest xray 06/09/21: reported slightly improved bilateral pulmonary opacities. No pneumothorax. Patients CAT scan of abdomen done 0n 06/06/21 reported Severe aspiration type pneumonia identified throughout both lower lungs with cavitary lesion within the left lower lobe measuring about 3 cm in diameter. Likely aspiration from abdominal problems. Patient responding to present antibiotics well. Patient afebrile. No leukocytosis. Repeat chest xray 06/09/21 reported Improving bilateral pulmonary infiltrates. Continue present antibiotics and respiratory support. Patient presently on Cefepime, Flagyl, Vancomycin, I/V solumedrol and S/C Heparin, and albuterol/atrovent aerosol treatments. - Patient Problems (1) Acute respiratory failure with hypoxia Current Visit: Yes Status: Acute Plan to address problem: BIPAP 20/10, rate 14, FIO2 90% Continue I/V solumedrol. Continue S/C heparin. Recommend GI prophylaxis. Continue albuterol/atrovent aerosol treatments. (2) Bilateral pneumonia Current Visit: Yes Status: Acute Plan to address problem: Pneumonia likely from aspiration. Patient is on cefepime, Flagyl and vancomycin. Recent chest xray 06/09/21 reporting improving pulmonary infiltrates. (3) Suspected 2019 novel coronavirus infection Current Visit: Yes Status: Acute Plan to address problem: Patient coronavirus PCR is negative. Subjective Date of service: 06/11/21 Principal diagnosis: Acute hypoxemic resp failure; Pneumonia; PUI COVID-19 infection Interval history: 55-year-old -[place] male who was diagnosed with COVID-19 on May 11, 2021 presents to the emergency room today with complaints of shortness of breath and decreased oral intake over the past 10 to 12 days. Patient also has known history of CVA about 20 years ago and it is unknown whether patient had any residual deficits. Patient has not been able to communicate well and most of the history was gotten from the ER staff. Initial oxygen saturation according to EMS was about 70% and patient was placed on nonrebreather. He was eventually placed on oxygen by nasal cannula upon arrival in the emergency room with significant improvement in his oxygen saturation. Work-up in the emergency room reveals a D-dimer greater than 10,000, sodium 151 potassium of 5.1, BUN of 180) and creatinine of 4.3. Patient had a lactic acid of 2.3. WBC was 11.8. CT scan of the head shows no acute abnormality. Chest x-ray shows mild patchy multifocal airspace disease throughout the lungs. No pleural effusion. VQ scan done showed low probability for pulmonary embolism. Patient being admitted with pneumonia possibly secondary to COVID-19, hypoxia and encephalopathy. Patients COVID 19 PCR reported negative. Patient presently sleeping on BIPAP 20/10, rate 14, FIO2 90% and O2 saturation running 100%. Not responding to verbal stimuli. Patient afebrile. No Leukocytosis. Blood pressure 132/71, Pulse 76. Chest xray 06/03/21: reported diffuse hazy airspace opacities bilaterally, mildly worsened compared to reference exam. No pneumothorax. Chest xray 06/09/21: reported slightly improved bilateral pulmonary opacities. No pneumothorax. Patients CAT scan of abdomen done 0n 06/06/21 reported Severe aspiration type pneumonia identified throughout both lower lungs with cavitary lesion within the left lower lobe measuring about 3 cm in diameter. Likely aspiration from abdominal problems. Patient responding to present antibiotics well. Patient afebrile. No leukocytosis. Repeat chest xray 06/09/21 reported Improving bilateral pulmonary infiltrates. Continue present antibiotics and respiratory support. Patient presently on Cefepime, Flagyl, Vancomycin, I/V solumedrol and S/C Heparin, and albuterol/atrovent aerosol treatments. Objective Vital Signs - 12hr 06/11/21 06/11/21 06/11/21 11:51 14:01 17:43 Temperature 98.6 F 98.4 F Pulse Rate 88 99 H 76 Pulse Rate [ 97 H Anterior Bilateral Throughout] Pulse Rate [ Posterior Bilateral Throughout] Respiratory 20 29 H 32 H Rate Respiratory 24 Rate [Anterior Bilateral Throughout] Respiratory Rate [Posterior Bilateral Throughout] Blood Pressure 119/58 132/71 O2 Sat by Pulse 90 96 99 Oximetry 06/11/21 06/11/21 21:49 21:52 Temperature Pulse Rate 82 Pulse Rate [ Anterior Bilateral Throughout] Pulse Rate [ 68 Posterior Bilateral Throughout] Respiratory 18 Rate Respiratory Rate [Anterior Bilateral Throughout] Respiratory 20 Rate [Posterior Bilateral Throughout] Blood Pressure O2 Sat by Pulse 100 Oximetry Constitutional: no acute distress, asleep, other (middle aged male resting on BIPAP) Eyes: non-icteric ENT: other (BIPAP FFM) Neck: supple, no JVD Effort: mildly labored Ascultation: Bilateral: diminished breath sounds (bases), rhonchi Percussion: Bilateral: not dull Cardiovascular: regular rate and rhythm Gastrointestinal: hypoactive bowel sounds, soft, non-tender, other (distended but very soft) Integumentary: normal Extremities: no cyanosis, no edema, pulses normal, no ischemia or petechiae Neurologic: pupils equal and round, CN II-XII normal, other (somnolent) Psychiatric: other (flat affect) CBC and BMP: 06/11/21 05:51 06/11/21 05:51 ABG, PT/INR, D-dimer: ABG ABG pH 7.456 (7.320-7.450) H 06/05/21 20:06 POC ABG pCO2 43.4 mmHg (32.0-48.0) 06/05/21 20:06 ABG pCO2 29.0 mm Hg 05/30/21 22:32 POC ABG pO2 102.1 mmHg (83-108) 06/05/21 20:06 ABG pO2 141.8 mm Hg (80.0-90.0) H 05/30/21 22:32 POC ABG HCO3 29.9 06/05/21 20:06 ABG O2 Saturation 98.2 (0-100) 06/05/21 20:06 PT/INR, D-dimer D-Dimer 3584.01 ng/mlDDU (0-234) H 05/27/21 08:09 Abnormal lab findings: Abnormal Labs 05/23/21 05/23/21 05/23/21 18:48 18:48 18:48 WBC 11.8 H RBC 5.18 H Hgb Hct MCV MCH MCHC RDW Plt Count Seg Neuts % (Manual) 84.0 H Lymphocytes % (Manual) Nucleated RBC % Seg Neutrophils # Man 9.9 H Lymphocytes # (Manual) D-Dimer > 35829 H ABG pH POC ABG pCO2 POC ABG pO2 ABG pO2 ABG HCO3 ABG Base Excess ABG Hemoglobin ABG Oxyhemoglobin ABG Sodium ABG Potassium ABG Chloride ABG Glucose VBG pH Carboxyhemoglobin Sodium Potassium Chloride Carbon Dioxide BUN Creatinine Glucose POC Glucose Lactic Acid 2.30 H* Calcium Phosphorus Magnesium Ferritin AST Ammonia Lactate Dehydrogenase C-Reactive Protein Total Protein Albumin Arterial Blood Glucose Arterial Blood Ionized Calcium Urine WBC (Auto) Vancomycin Trough 05/23/21 05/23/21 05/23/21 18:48 18:48 18:48 WBC RBC Hgb Hct MCV MCH MCHC RDW Plt Count Seg Neuts % (Manual) Lymphocytes % (Manual) Nucleated RBC % Seg Neutrophils # Man Lymphocytes # (Manual) D-Dimer ABG pH POC ABG pCO2 POC ABG pO2 ABG pO2 ABG HCO3 ABG Base Excess ABG Hemoglobin ABG Oxyhemoglobin ABG Sodium ABG Potassium ABG Chloride ABG Glucose VBG pH Carboxyhemoglobin Sodium 151 H Potassium 5.1 H Chloride 113.2 H Carbon Dioxide 17 L BUN 180 H Creatinine 4.3 H Glucose 114 H POC Glucose Lactic Acid Calcium Phosphorus Magnesium Ferritin 2000.0 H AST Ammonia 22.0 L Lactate Dehydrogenase 577 H C-Reactive Protein 8.80 H Total Protein 9.4 H Albumin 3.0 L Arterial Blood Glucose Arterial Blood Ionized Calcium Urine WBC (Auto) Vancomycin Trough 05/23/21 05/24/21 05/24/21 21:06 02:09 02:09 WBC RBC Hgb Hct MCV MCH MCHC RDW Plt Count Seg Neuts % (Manual) Lymphocytes % (Manual) Nucleated RBC % Seg Neutrophils # Man Lymphocytes # (Manual) D-Dimer ABG pH POC ABG pCO2 POC ABG pO2 ABG pO2 ABG HCO3 ABG Base Excess ABG Hemoglobin ABG Oxyhemoglobin ABG Sodium ABG Potassium ABG Chloride ABG Glucose VBG pH 7.254 L Carboxyhemoglobin Sodium Potassium Chloride Carbon Dioxide BUN Creatinine Glucose POC Glucose Lactic Acid 2.10 H* 2.30 H* Calcium Phosphorus Magnesium Ferritin AST Ammonia Lactate Dehydrogenase C-Reactive Protein Total Protein Albumin Arterial Blood Glucose Arterial Blood Ionized Calcium Urine WBC (Auto) Vancomycin Trough 05/24/21 05/24/21 05/24/21 13:11 17:34 18:12 WBC RBC Hgb Hct MCV MCH MCHC RDW Plt Count Seg Neuts % (Manual) Lymphocytes % (Manual) Nucleated RBC % Seg Neutrophils # Man Lymphocytes # (Manual) D-Dimer ABG pH POC ABG pCO2 POC ABG pO2 ABG pO2 ABG HCO3 ABG Base Excess ABG Hemoglobin ABG Oxyhemoglobin ABG Sodium ABG Potassium ABG Chloride ABG Glucose VBG pH Carboxyhemoglobin Sodium 155 H Potassium 6.9 H* D 5.7 H Chloride 121.9 H Carbon Dioxide 20 L BUN 139 H Creatinine 2.7 H Glucose 139 H POC Glucose 153 H Lactic Acid Calcium Phosphorus Magnesium Ferritin AST Ammonia Lactate Dehydrogenase C-Reactive Protein Total Protein Albumin Arterial Blood Glucose Arterial Blood Ionized Calcium Urine WBC (Auto) Vancomycin Trough 05/25/21 05/25/21 05/26/21 11:33 11:33 03:15 WBC 13.8 H RBC 5.06 H Hgb Hct MCV MCH MCHC RDW Plt Count Seg Neuts % (Manual) Lymphocytes % (Manual) Nucleated RBC % Seg Neutrophils # Man Lymphocytes # (Manual) D-Dimer ABG pH POC ABG pCO2 POC ABG pO2 ABG pO2 ABG HCO3 ABG Base Excess ABG Hemoglobin ABG Oxyhemoglobin ABG Sodium ABG Potassium ABG Chloride ABG Glucose VBG pH Carboxyhemoglobin Sodium 164 H* D 166 H* Potassium 5.4 H 5.5 H Chloride 131.3 H 129.2 H Carbon Dioxide BUN 109 H 102 H Creatinine 1.9 H 1.8 H Glucose 117 H 113 H POC Glucose Lactic Acid Calcium Phosphorus Magnesium Ferritin AST Ammonia Lactate Dehydrogenase 711 H C-Reactive Protein 7.90 H Total Protein Albumin Arterial Blood Glucose Arterial Blood Ionized Calcium Urine WBC (Auto) Vancomycin Trough 05/26/21 05/26/21 05/26/21 03:15 03:15 03:15 WBC 13.1 H RBC 5.43 H Hgb 15.3 H Hct 48.5 H MCV MCH MCHC RDW 15.4 H Plt Count Seg Neuts % (Manual) Lymphocytes % (Manual) Nucleated RBC % Seg Neutrophils # Man Lymphocytes # (Manual) D-Dimer 6229.14 H ABG pH POC ABG pCO2 POC ABG pO2 ABG pO2 ABG HCO3 ABG Base Excess ABG Hemoglobin ABG Oxyhemoglobin ABG Sodium ABG Potassium ABG Chloride ABG Glucose VBG pH Carboxyhemoglobin Sodium Potassium Chloride Carbon Dioxide BUN Creatinine Glucose POC Glucose Lactic Acid Calcium Phosphorus Magnesium Ferritin 2991.0 H AST Ammonia Lactate Dehydrogenase C-Reactive Protein Total Protein Albumin Arterial Blood Glucose Arterial Blood Ionized Calcium Urine WBC (Auto) Vancomycin Trough 05/27/21 05/27/21 05/27/21 08:09 08:09 08:09 WBC 12.4 H RBC 5.27 H Hgb Hct 46.6 H MCV MCH MCHC 31 L RDW 15.7 H Plt Count Seg Neuts % (Manual) Lymphocytes % (Manual) Nucleated RBC % Seg Neutrophils # Man Lymphocytes # (Manual) D-Dimer 3584.01 H ABG pH POC ABG pCO2 POC ABG pO2 ABG pO2 ABG HCO3 ABG Base Excess ABG Hemoglobin ABG Oxyhemoglobin ABG Sodium ABG Potassium ABG Chloride ABG Glucose VBG pH Carboxyhemoglobin Sodium 174 H* Potassium Chloride 136.9 H Carbon Dioxide BUN 90 H Creatinine 1.8 H Glucose POC Glucose Lactic Acid Calcium Phosphorus Magnesium Ferritin AST Ammonia Lactate Dehydrogenase 642 H C-Reactive Protein 5.20 H Total Protein Albumin Arterial Blood Glucose Arterial Blood Ionized Calcium Urine WBC (Auto) Vancomycin Trough 05/27/21 05/28/21 05/28/21 08:09 07:31 07:31 WBC RBC Hgb Hct MCV MCH 27 L MCHC 31 L RDW Plt Count Seg Neuts % (Manual) 88.0 H Lymphocytes % (Manual) 11.0 L Nucleated RBC % Seg Neutrophils # Man 8.3 H Lymphocytes # (Manual) 1.0 L D-Dimer ABG pH POC ABG pCO2 POC ABG pO2 ABG pO2 ABG HCO3 ABG Base Excess ABG Hemoglobin ABG Oxyhemoglobin ABG Sodium ABG Potassium ABG Chloride ABG Glucose VBG pH Carboxyhemoglobin Sodium 162 H* D Potassium Chloride 125.8 H Carbon Dioxide BUN 72 H Creatinine 1.6 H Glucose 131 H POC Glucose Lactic Acid Calcium Phosphorus Magnesium 3.00 H Ferritin 2742.0 H AST Ammonia Lactate Dehydrogenase C-Reactive Protein Total Protein Albumin Arterial Blood Glucose Arterial Blood Ionized Calcium Urine WBC (Auto) Vancomycin Trough 05/29/21 05/29/21 05/29/21 06:40 06:40 17:58 WBC 14.1 H RBC Hgb Hct MCV MCH 27 L MCHC 31 L RDW Plt Count Seg Neuts % (Manual) 85.0 H Lymphocytes % (Manual) 9.0 L Nucleated RBC % 1.0 H Seg Neutrophils # Man 12.0 H Lymphocytes # (Manual) D-Dimer ABG pH 7.505 H POC ABG pCO2 30.3 L POC ABG pO2 128.1 H ABG pO2 ABG HCO3 ABG Base Excess ABG Hemoglobin 11.9 L ABG Oxyhemoglobin ABG Sodium ABG Potassium ABG Chloride 113.0 H ABG Glucose 110 H VBG pH Carboxyhemoglobin Sodium 148 H D Potassium Chloride 111.3 H Carbon Dioxide 20 L BUN 45 H Creatinine Glucose POC Glucose Lactic Acid Calcium Phosphorus 2.10 L D Magnesium Ferritin AST Ammonia Lactate Dehydrogenase C-Reactive Protein Total Protein Albumin Arterial Blood Glucose 110 H Arterial Blood Ionized Calcium 4.5 L Urine WBC (Auto) Vancomycin Trough 05/30/21 05/30/21 05/30/21 01:00 06:06 13:48 WBC RBC Hgb Hct MCV MCH MCHC RDW Plt Count Seg Neuts % (Manual) Lymphocytes % (Manual) Nucleated RBC % Seg Neutrophils # Man Lymphocytes # (Manual) D-Dimer ABG pH POC ABG pCO2 POC ABG pO2 ABG pO2 90.9 H ABG HCO3 ABG Base Excess ABG Hemoglobin 11.8 L ABG Oxyhemoglobin ABG Sodium ABG Potassium ABG Chloride ABG Glucose VBG pH Carboxyhemoglobin Sodium 150 H Potassium Chloride 117.6 H Carbon Dioxide BUN 40 H Creatinine Glucose POC Glucose Lactic Acid Calcium 8.3 L Phosphorus Magnesium Ferritin AST Ammonia Lactate Dehydrogenase C-Reactive Protein Total Protein Albumin Arterial Blood Glucose Arterial Blood Ionized Calcium Urine WBC (Auto) 12.0 H Vancomycin Trough 05/30/21 05/31/21 05/31/21 22:32 02:22 02:22 WBC RBC Hgb 11.2 L Hct 34.8 L MCV MCH MCHC RDW Plt Count 127 L Seg Neuts % (Manual) 97.0 H Lymphocytes % (Manual) Nucleated RBC % Seg Neutrophils # Man 10.5 H Lymphocytes # (Manual) 0.0 L D-Dimer ABG pH 7.454 H POC ABG pCO2 POC ABG pO2 ABG pO2 141.8 H ABG HCO3 19.9 L ABG Base Excess -2.7 L ABG Hemoglobin ABG Oxyhemoglobin ABG Sodium ABG Potassium ABG Chloride ABG Glucose VBG pH Carboxyhemoglobin Sodium 152 H Potassium Chloride 118.9 H Carbon Dioxide 19 L BUN 48 H Creatinine 1.5 H Glucose 101 H POC Glucose Lactic Acid Calcium 8.3 L Phosphorus Magnesium Ferritin AST Ammonia Lactate Dehydrogenase C-Reactive Protein Total Protein Albumin Arterial Blood Glucose Arterial Blood Ionized Calcium Urine WBC (Auto) Vancomycin Trough 05/31/21 05/31/21 06/01/21 11:42 21:28 07:10 WBC RBC Hgb Hct MCV MCH MCHC RDW Plt Count Seg Neuts % (Manual) Lymphocytes % (Manual) Nucleated RBC % Seg Neutrophils # Man Lymphocytes # (Manual) D-Dimer ABG pH POC ABG pCO2 POC ABG pO2 ABG pO2 ABG HCO3 ABG Base Excess ABG Hemoglobin ABG Oxyhemoglobin ABG Sodium ABG Potassium ABG Chloride ABG Glucose VBG pH Carboxyhemoglobin Sodium 150 H Potassium Chloride 115.7 H Carbon Dioxide BUN 47 H Creatinine Glucose 115 H POC Glucose 161 H Lactic Acid Calcium Phosphorus Magnesium 2.50 H Ferritin AST Ammonia Lactate Dehydrogenase C-Reactive Protein Total Protein Albumin Arterial Blood Glucose Arterial Blood Ionized Calcium Urine WBC (Auto) Vancomycin Trough 20.2 H 06/01/21 06/01/21 06/01/21 07:10 07:54 10:39 WBC RBC Hgb 10.7 L Hct 33.5 L MCV MCH MCHC RDW Plt Count Seg Neuts % (Manual) 92.0 H Lymphocytes % (Manual) 4.0 L Nucleated RBC % Seg Neutrophils # Man Lymphocytes # (Manual) 0.3 L D-Dimer ABG pH POC ABG pCO2 POC ABG pO2 ABG pO2 ABG HCO3 ABG Base Excess ABG Hemoglobin ABG Oxyhemoglobin ABG Sodium ABG Potassium ABG Chloride ABG Glucose VBG pH Carboxyhemoglobin Sodium 152 H Potassium Chloride 117.6 H Carbon Dioxide BUN 50 H Creatinine Glucose 140 H POC Glucose 127 H Lactic Acid Calcium 8.3 L Phosphorus Magnesium Ferritin AST Ammonia Lactate Dehydrogenase C-Reactive Protein Total Protein Albumin Arterial Blood Glucose Arterial Blood Ionized Calcium Urine WBC (Auto) Vancomycin Trough 06/01/21 06/01/21 06/01/21 11:11 16:16 21:45 WBC RBC Hgb Hct MCV MCH MCHC RDW Plt Count Seg Neuts % (Manual) Lymphocytes % (Manual) Nucleated RBC % Seg Neutrophils # Man Lymphocytes # (Manual) D-Dimer ABG pH POC ABG pCO2 POC ABG pO2 ABG pO2 ABG HCO3 ABG Base Excess ABG Hemoglobin ABG Oxyhemoglobin ABG Sodium ABG Potassium ABG Chloride ABG Glucose VBG pH Carboxyhemoglobin Sodium Potassium Chloride Carbon Dioxide BUN Creatinine Glucose POC Glucose 120 H 129 H 150 H Lactic Acid Calcium Phosphorus Magnesium Ferritin AST Ammonia Lactate Dehydrogenase C-Reactive Protein Total Protein Albumin Arterial Blood Glucose Arterial Blood Ionized Calcium Urine WBC (Auto) Vancomycin Trough 06/02/21 06/02/21 06/02/21 06:53 06:53 07:52 WBC RBC Hgb 10.4 L Hct 32.4 L MCV MCH 27 L MCHC RDW Plt Count Seg Neuts % (Manual) 93.0 H Lymphocytes % (Manual) 3.0 L Nucleated RBC % Seg Neutrophils # Man Lymphocytes # (Manual) 0.2 L D-Dimer ABG pH POC ABG pCO2 POC ABG pO2 ABG pO2 ABG HCO3 ABG Base Excess ABG Hemoglobin ABG Oxyhemoglobin ABG Sodium ABG Potassium ABG Chloride ABG Glucose VBG pH Carboxyhemoglobin Sodium 149 H Potassium Chloride 112.6 H Carbon Dioxide BUN 54 H Creatinine Glucose 123 H POC Glucose 116 H Lactic Acid Calcium 8.2 L Phosphorus Magnesium Ferritin AST Ammonia Lactate Dehydrogenase C-Reactive Protein Total Protein Albumin Arterial Blood Glucose Arterial Blood Ionized Calcium Urine WBC (Auto) Vancomycin Trough 06/03/21 06/03/21 06/03/21 05:57 05:57 21:23 WBC RBC Hgb 10.7 L Hct 33.0 L MCV 83 L MCH 27 L MCHC RDW Plt Count Seg Neuts % (Manual) 88.0 H Lymphocytes % (Manual) 8.0 L Nucleated RBC % 2.0 H Seg Neutrophils # Man Lymphocytes # (Manual) 0.6 L D-Dimer ABG pH POC ABG pCO2 POC ABG pO2 39.0 L ABG pO2 ABG HCO3 ABG Base Excess ABG Hemoglobin ABG Oxyhemoglobin 69.1 L ABG Sodium 134.1 L ABG Potassium ABG Chloride ABG Glucose 135 H VBG pH Carboxyhemoglobin Sodium Potassium Chloride Carbon Dioxide BUN 36 H Creatinine Glucose 102 H POC Glucose Lactic Acid Calcium 8.0 L Phosphorus 2.20 L D Magnesium Ferritin AST Ammonia Lactate Dehydrogenase C-Reactive Protein Total Protein Albumin Arterial Blood Glucose 135 H Arterial Blood Ionized Calcium Urine WBC (Auto) Vancomycin Trough 06/04/21 06/04/21 06/04/21 07:04 07:04 17:42 WBC RBC Hgb 11.3 L Hct 34.9 L MCV MCH 27 L MCHC RDW Plt Count Seg Neuts % (Manual) Lymphocytes % (Manual) 5.0 L Nucleated RBC % Seg Neutrophils # Man 8.4 H Lymphocytes # (Manual) 0.5 L D-Dimer ABG pH POC ABG pCO2 POC ABG pO2 ABG pO2 ABG HCO3 ABG Base Excess ABG Hemoglobin ABG Oxyhemoglobin ABG Sodium ABG Potassium ABG Chloride ABG Glucose VBG pH Carboxyhemoglobin Sodium Potassium Chloride Carbon Dioxide BUN 27 H Creatinine Glucose POC Glucose 136 H Lactic Acid Calcium 8.2 L Phosphorus Magnesium Ferritin AST Ammonia Lactate Dehydrogenase C-Reactive Protein Total Protein Albumin Arterial Blood Glucose Arterial Blood Ionized Calcium Urine WBC (Auto) Vancomycin Trough 06/05/21 06/05/21 06/05/21 05:10 12:32 15:45 WBC RBC Hgb Hct MCV MCH MCHC RDW Plt Count Seg Neuts % (Manual) Lymphocytes % (Manual) Nucleated RBC % Seg Neutrophils # Man Lymphocytes # (Manual) D-Dimer ABG pH POC ABG pCO2 POC ABG pO2 ABG pO2 ABG HCO3 ABG Base Excess ABG Hemoglobin ABG Oxyhemoglobin ABG Sodium ABG Potassium ABG Chloride ABG Glucose VBG pH Carboxyhemoglobin Sodium Potassium 3.5 L Chloride Carbon Dioxide BUN 35 H Creatinine Glucose 130 H POC Glucose 122 H 119 H Lactic Acid Calcium 8.2 L Phosphorus Magnesium Ferritin AST Ammonia Lactate Dehydrogenase C-Reactive Protein Total Protein Albumin Arterial Blood Glucose Arterial Blood Ionized Calcium Urine WBC (Auto) Vancomycin Trough 06/05/21 06/05/21 06/06/21 20:06 21:27 00:04 WBC RBC Hgb Hct MCV MCH MCHC RDW Plt Count Seg Neuts % (Manual) Lymphocytes % (Manual) Nucleated RBC % Seg Neutrophils # Man Lymphocytes # (Manual) D-Dimer ABG pH 7.456 H POC ABG pCO2 POC ABG pO2 ABG pO2 ABG HCO3 ABG Base Excess ABG Hemoglobin 10.3 L ABG Oxyhemoglobin ABG Sodium ABG Potassium 3.1 L ABG Chloride ABG Glucose 125 H VBG pH Carboxyhemoglobin 0.3 L Sodium Potassium Chloride Carbon Dioxide BUN Creatinine Glucose POC Glucose 113 H Lactic Acid Calcium Phosphorus Magnesium Ferritin AST Ammonia Lactate Dehydrogenase C-Reactive Protein 19.60 H Total Protein Albumin Arterial Blood Glucose 125 H Arterial Blood Ionized Calcium Urine WBC (Auto) Vancomycin Trough 06/06/21 06/06/21 06/07/21 04:35 22:37 05:54 WBC RBC Hgb Hct MCV MCH MCHC RDW Plt Count Seg Neuts % (Manual) Lymphocytes % (Manual) Nucleated RBC % Seg Neutrophils # Man Lymphocytes # (Manual) D-Dimer ABG pH POC ABG pCO2 POC ABG pO2 ABG pO2 ABG HCO3 ABG Base Excess ABG Hemoglobin ABG Oxyhemoglobin ABG Sodium ABG Potassium ABG Chloride ABG Glucose VBG pH Carboxyhemoglobin Sodium Potassium Chloride Carbon Dioxide BUN 43 H Creatinine Glucose POC Glucose 114 H 130 H Lactic Acid Calcium 7.6 L Phosphorus Magnesium Ferritin AST Ammonia Lactate Dehydrogenase C-Reactive Protein Total Protein Albumin Arterial Blood Glucose Arterial Blood Ionized Calcium Urine WBC (Auto) Vancomycin Trough 06/07/21 06/07/21 06/07/21 07:32 10:03 11:36 WBC RBC 3.63 L Hgb 9.8 L Hct 30.3 L MCV 83 L MCH 27 L MCHC RDW Plt Count Seg Neuts % (Manual) Lymphocytes % (Manual) Nucleated RBC % Seg Neutrophils # Man Lymphocytes # (Manual) D-Dimer ABG pH POC ABG pCO2 POC ABG pO2 ABG pO2 ABG HCO3 ABG Base Excess ABG Hemoglobin ABG Oxyhemoglobin ABG Sodium ABG Potassium ABG Chloride ABG Glucose VBG pH Carboxyhemoglobin Sodium Potassium 3.2 L Chloride 108.5 H Carbon Dioxide BUN 36 H Creatinine Glucose 139 H POC Glucose 125 H Lactic Acid Calcium 8.0 L Phosphorus Magnesium Ferritin AST Ammonia Lactate Dehydrogenase C-Reactive Protein Total Protein Albumin Arterial Blood Glucose Arterial Blood Ionized Calcium Urine WBC (Auto) Vancomycin Trough 06/07/21 06/07/21 06/08/21 17:54 22:14 07:18 WBC RBC Hgb Hct MCV MCH MCHC RDW Plt Count Seg Neuts % (Manual) Lymphocytes % (Manual) Nucleated RBC % Seg Neutrophils # Man Lymphocytes # (Manual) D-Dimer ABG pH POC ABG pCO2 POC ABG pO2 ABG pO2 ABG HCO3 ABG Base Excess ABG Hemoglobin ABG Oxyhemoglobin ABG Sodium ABG Potassium ABG Chloride ABG Glucose VBG pH Carboxyhemoglobin Sodium 149 H Potassium Chloride 110.2 H Carbon Dioxide BUN 31 H Creatinine Glucose 131 H POC Glucose 121 H 131 H Lactic Acid Calcium 8.1 L Phosphorus Magnesium Ferritin AST Ammonia Lactate Dehydrogenase C-Reactive Protein Total Protein Albumin Arterial Blood Glucose Arterial Blood Ionized Calcium Urine WBC (Auto) Vancomycin Trough 06/08/21 06/08/21 06/08/21 07:45 12:07 18:02 WBC RBC Hgb Hct MCV MCH MCHC RDW Plt Count Seg Neuts % (Manual) Lymphocytes % (Manual) Nucleated RBC % Seg Neutrophils # Man Lymphocytes # (Manual) D-Dimer ABG pH POC ABG pCO2 POC ABG pO2 ABG pO2 ABG HCO3 ABG Base Excess ABG Hemoglobin ABG Oxyhemoglobin ABG Sodium ABG Potassium ABG Chloride ABG Glucose VBG pH Carboxyhemoglobin Sodium Potassium Chloride Carbon Dioxide BUN Creatinine Glucose POC Glucose 120 H 127 H 148 H Lactic Acid Calcium Phosphorus Magnesium Ferritin AST Ammonia Lactate Dehydrogenase C-Reactive Protein Total Protein Albumin Arterial Blood Glucose Arterial Blood Ionized Calcium Urine WBC (Auto) Vancomycin Trough 06/09/21 06/09/21 06/09/21 05:51 05:51 11:37 WBC 3.9 L RBC 3.38 L Hgb 9.4 L Hct 28.5 L MCV MCH MCHC RDW Plt Count Seg Neuts % (Manual) Lymphocytes % (Manual) Nucleated RBC % Seg Neutrophils # Man Lymphocytes # (Manual) D-Dimer ABG pH POC ABG pCO2 POC ABG pO2 ABG pO2 ABG HCO3 ABG Base Excess ABG Hemoglobin ABG Oxyhemoglobin ABG Sodium ABG Potassium ABG Chloride ABG Glucose VBG pH Carboxyhemoglobin Sodium Potassium Chloride 108.4 H Carbon Dioxide BUN 32 H Creatinine Glucose 137 H POC Glucose 115 H Lactic Acid Calcium 7.5 L Phosphorus Magnesium Ferritin AST 55 H Ammonia Lactate Dehydrogenase C-Reactive Protein 4.10 H Total Protein 5.6 L Albumin 2.0 L Arterial Blood Glucose Arterial Blood Ionized Calcium Urine WBC (Auto) Vancomycin Trough 06/09/21 06/09/21 06/10/21 17:32 22:18 01:52 WBC RBC 3.62 L Hgb 9.9 L Hct 29.8 L MCV 82 L MCH 27 L MCHC RDW Plt Count Seg Neuts % (Manual) Lymphocytes % (Manual) Nucleated RBC % Seg Neutrophils # Man Lymphocytes # (Manual) D-Dimer ABG pH POC ABG pCO2 POC ABG pO2 ABG pO2 ABG HCO3 ABG Base Excess ABG Hemoglobin ABG Oxyhemoglobin ABG Sodium ABG Potassium ABG Chloride ABG Glucose VBG pH Carboxyhemoglobin Sodium Potassium Chloride Carbon Dioxide BUN Creatinine Glucose POC Glucose 113 H 110 H Lactic Acid Calcium Phosphorus Magnesium Ferritin AST Ammonia Lactate Dehydrogenase C-Reactive Protein Total Protein Albumin Arterial Blood Glucose Arterial Blood Ionized Calcium Urine WBC (Auto) Vancomycin Trough 06/10/21 06/10/21 06/10/21 01:52 16:14 22:45 WBC RBC Hgb Hct MCV MCH MCHC RDW Plt Count Seg Neuts % (Manual) Lymphocytes % (Manual) Nucleated RBC % Seg Neutrophils # Man Lymphocytes # (Manual) D-Dimer ABG pH POC ABG pCO2 POC ABG pO2 ABG pO2 ABG HCO3 ABG Base Excess ABG Hemoglobin ABG Oxyhemoglobin ABG Sodium ABG Potassium ABG Chloride ABG Glucose VBG pH Carboxyhemoglobin Sodium Potassium Chloride 108.2 H Carbon Dioxide BUN 32 H Creatinine 1.4 H Glucose POC Glucose 111 H 107 H Lactic Acid Calcium 7.8 L Phosphorus Magnesium Ferritin AST 55 H Ammonia Lactate Dehydrogenase C-Reactive Protein Total Protein 5.6 L Albumin 1.9 L Arterial Blood Glucose Arterial Blood Ionized Calcium Urine WBC (Auto) Vancomycin Trough 06/11/21 06/11/21 06/11/21 05:51 05:51 05:51 WBC RBC 3.35 L Hgb 9.1 L Hct 28.1 L MCV MCH 27 L MCHC RDW Plt Count 117 L Seg Neuts % (Manual) 93.0 H Lymphocytes % (Manual) 1.0 L Nucleated RBC % Seg Neutrophils # Man Lymphocytes # (Manual) 0.0 L D-Dimer ABG pH POC ABG pCO2 POC ABG pO2 ABG pO2 ABG HCO3 ABG Base Excess ABG Hemoglobin ABG Oxyhemoglobin ABG Sodium ABG Potassium ABG Chloride ABG Glucose VBG pH Carboxyhemoglobin Sodium 146 H Potassium Chloride 110.9 H Carbon Dioxide BUN 40 H Creatinine Glucose 119 H POC Glucose Lactic Acid Calcium 7.8 L Phosphorus Magnesium Ferritin AST Ammonia Lactate Dehydrogenase C-Reactive Protein Total Protein Albumin Arterial Blood Glucose Arterial Blood Ionized Calcium Urine WBC (Auto) Vancomycin Trough 22.6 H 06/11/21 06/11/21 06/11/21 08:28 11:36 15:47 WBC RBC Hgb Hct MCV MCH MCHC RDW Plt Count Seg Neuts % (Manual) Lymphocytes % (Manual) Nucleated RBC % Seg Neutrophils # Man Lymphocytes # (Manual) D-Dimer ABG pH POC ABG pCO2 POC ABG pO2 ABG pO2 ABG HCO3 ABG Base Excess ABG Hemoglobin ABG Oxyhemoglobin ABG Sodium ABG Potassium ABG Chloride ABG Glucose VBG pH Carboxyhemoglobin Sodium Potassium Chloride Carbon Dioxide BUN Creatinine Glucose POC Glucose 109 H 149 H 139 H Lactic Acid Calcium Phosphorus Magnesium Ferritin AST Ammonia Lactate Dehydrogenase C-Reactive Protein Total Protein Albumin Arterial Blood Glucose Arterial Blood Ionized Calcium Urine WBC (Auto) Vancomycin Trough 06/11/21 21:42 WBC RBC Hgb Hct MCV MCH MCHC RDW Plt Count Seg Neuts % (Manual) Lymphocytes % (Manual) Nucleated RBC % Seg Neutrophils # Man Lymphocytes # (Manual) D-Dimer ABG pH POC ABG pCO2 POC ABG pO2 ABG pO2 ABG HCO3 ABG Base Excess ABG Hemoglobin ABG Oxyhemoglobin ABG Sodium ABG Potassium ABG Chloride ABG Glucose VBG pH Carboxyhemoglobin Sodium Potassium Chloride Carbon Dioxide BUN Creatinine Glucose POC Glucose 124 H Lactic Acid Calcium Phosphorus Magnesium Ferritin AST Ammonia Lactate Dehydrogenase C-Reactive Protein Total Protein Albumin Arterial Blood Glucose Arterial Blood Ionized Calcium Urine WBC (Auto) Vancomycin Trough Additional Studies: CT ABDOMEN AND PELVIS WITH IV CONTRAST 06/06/21 INDICATION: suspect small bowel obstruction. Abdominal pain COMPARISON: None available. TECHNIQUE: Axial CT images were obtained through the abdomen and pelvis after 100 mL IV contrast. All CT scans at this location are performed using CT dose reduction for ALARA by means of automated exposure control. FINDINGS -- ABDOMEN: Lung Bases: Severe dependent airspace disease/consolidation involving both lower lungs. There is a cavitary lesion within the left lower lobe measuring about 3 cm in diameter. Abnormal groundglass opacity throughout much of the nondependent portion of the right middle lobe, right upper lobe and left upper lobe. Liver: Normal. Gallbladder: Normal. Bile Ducts: Normal. Pancreas: Normal. Spleen: Normal. Adrenals: Normal. Right Kidney and Proximal Ureter: Normal. Left Kidney and Proximal Ureter: Normal. Stomach and Bowel: Normal. Lymph Nodes: No significant adenopathy. Aorta: Scattered atherosclerotic calcification. IVC: Normal. Additional Findings: None. FINDINGS -- PELVIS: Urinary Bladder and Distal Ureters: Normal. Reproductive Organs: No acute abnormality. Appendix: Normal. Bowel: No acute abnormality. Free Fluid: None. Lymph Nodes: No significant adenopathy. Additional Findings: None. Skeletal System: No acute abnormality. IMPRESSION: 1. Mild diffuse enteritis. No evidence of high-grade small bowel obstruction. 2. Severe aspiration type pneumonia identified throughout both lower lungs with cavitary lesion within the left lower lobe measuring about 3 cm in diameter. 3. Other incidental findings as noted above. Allied health notes reviewed: nursing
[2021-06-12] MEDS: metroNIDAZOLE/NS 500 MG/100 ML 500 MG/100 ML BAG IV SCH ×3 (05:09→21:54)
[2021-06-12 05:41] LABS: Hematocrit 29.9 % (35.5-45.6); Hemoglobin 9.4 gm/dl (11.8-15.2); Mean Corpuscular HGB Conc 31 % (32-34); Mean Corpuscular Volume 85 fl (84-94); Platelet Count 126 K/mm3 (140-440); Red Cell Distribution Width 15.3 % (13.2-15.2)
[2021-06-12 05:43] LABS: BUN/Creatinine Ratio 34; Blood Urea Nitrogen 37 mg/dL (9-20); Hemolysis Index 1
[2021-06-12] MEDS ORDERED: CALCIUM GLUCONATE 2,000 MG in SODIUM CHLORIDE 0.9% 100 ML IV ONE (06:10)
[2021-06-12] MEDS: HEPARIN 5,000 UNIT/1 ML VIAL SUB-Q SCH ×3 (06:12→22:00)
[2021-06-12] MEDS: CEFEPIME/NS 2 GM/100 ML 2 GM/100 ML BAG IV SCH ×3 (06:12→23:17)
[2021-06-12] MEDS: VANCOMYCIN/NS 1 GM/250 ML 1 GM/250 ML BAG IV SCH (08:00)
[2021-06-12] MEDS: IPRATROPIUM/ALBUTEROL SULFATE 3 ML AMPUL.NEB IH SCH ×3 (08:36→20:55)
--- NOTE | 2021-06-12 09:46 | Cat Scan Report ---
CT CHEST WITH CONTRAST INDICATION / CLINICAL INFORMATION: Pneumonia. TECHNIQUE: Axial CT images were obtained through the chest after IV contrast. All CT scans at this location are performed using CT dose reduction for ALARA by means of automated exposure control. COMPARISON: None available. FINDINGS: There is diffuse groundglass densities and opacities within bilateral lungs with diffuse interstitial prominence septal thickening. Opacities in the dependent portions of bilateral lungs with air bronch ograms as well. Large cavitary process within left lung measures 5.5 x 4.4 cm. Heart is upper limits of normal. There are mildly prominent paratracheal nodes. Soft tissue wall thickening. Visualized por tions of the upper abdomen appear normal IMPRESSION: 1. Diffuse groundglass densities with pulmonary edema, septal thickening and bilateral pulmonary infi ltrates are noted in bilateral lungs. Findings could represent viral/Covid pneumonia, atypical pneumo ritesh, nonspecific. 2. Cavitary process within the left lower lung measuring 5.5 x 4.4 cm. Findings could be related to i nfection, abscess however follow-up after treatment to exclude malignancy. Signer Name: Barrington Velásquez MD Signed: 06/12/2021 9:42 AM Workstation Name: [id number]
[2021-06-12] MEDS: DOCUSATE SODIUM 100 MG CAP PO SCH (10:18)
[2021-06-12] MEDS: methylPREDNISolone Sod Succinate 40 MG/1 ML INJ IV SCH ×2 (10:18→22:00)
--- NOTE | 2021-06-12 12:29 | Progress Note ---
Assessment and Plan Assessment and plan: #Acute hypoxic respiratory failure -Currently on BiPAP, will maintain SpO2 >90% -VQ scan low probability for PE on admission -continue methylprednisone 40 mg daily; will continue to taper per ID recs -s/p 1 dose of Lasix -TTE 06/06: LVEF 55 to 60%, no valvular or chamber abnormalities -Pulmonary consulted, recommendations appreciated -patient continues to deteriorate will possibly need bronchoscopy to address the cavitary lesion; will refer to Pulmonology recs -Patient currently lacks p.o. access given need for BiPAP. Discussing with patient about possible PICC placement in order to initiate PPN. Patient expresses understanding. Will rediscuss with patient today. #Pneumonia -CT abdomen pelvis revealed severe bilateral pneumonia and a cavitary lesion in the left lower lobe -likely secondary to aspiration during ileus -CT chest ordered; pending read -CRP 19.6 and procal 24.30, repeat pending -continue vancomycin, cefepime and flagyl per ID recommendations -completed azithromycin and Rocephin in past #Severe sepsis- improving -repeat blood cultures no growth to date -procalcitonin 24.30, repeat pending -continue vancomycin, cefepime and flagyl -s/p zosyn -likely 2/2 to PNA #Hypocalcemia -Calcium 7.8 -Repleted; continue to monitor #COVID-19 infection -Diagnosed on 05/11 -s/p 10 days of steroids, restarted on 06/04 due to worsening Pulmonary status -Tapering steroids per ID recommendations #Baomhscnlncoz-[id number]-[id number] secondary to poor oral intake #Acute encephalopathy-Resolved #ANGELES, resolved #Hyperkalemia, resolved #Ileus-resolved #Lactic acidosis-resolved #Discharge planning -Patient and family agreed to the home with home health upon discharge -will continue to wean oxygen to at least 4 L/min prior to discharge Disposition Plan: Continue medical management Total Time Spent with Patient (Minutes): 45 History Interval history: No acute events overnight. Hospitalist Physical - Constitutional Vitals: Temp Pulse Resp BP Pulse Ox 98.4 F 66 42 H 132/71 90 06/11/21 17:43 06/12/21 08:48 06/12/21 08:48 06/11/21 17:43 06/12/21 08:28 General appearance: Present: no acute distress, cachectic - EENT Eyes: Present: PERRL, EOM intact ENT: hearing intact, clear oral mucosa - Neck Neck: Present: supple, normal ROM - Respiratory Respiratory effort: labored Respiratory: bilateral: diminished, rhonchi - Cardiovascular Rhythm: regular Heart Sounds: Present: S1 & S2 - Extremities Extremities: no ischemia, pulses intact, pulses symmetrical, No edema, normal temperature, normal color Peripheral Pulses: within normal limits - Abdominal General gastrointestinal: soft, non-tender, non-distended, normal bowel sounds - Integumentary Integumentary: Present: clear, warm, dry - Psychiatric Psychiatric: appropriate mood/affect, intact judgment & insight, memory intact, cooperative - Neurologic Neurologic: CNII-XII intact, moves all extremities - Allied Health Allied health notes reviewed: nursing HEART Score - HEART Score EKG: Non-specific Age: 45-65 Risk factors: 1-2 risk factors Troponin: Troponin T < 0.010 ng/mL (0.00-0.029) 05/23/21 18:48 - Critical Actions Critical Actions: 0-3 pts:0.9-1.7%risk of adverse cardiac event.Candidate for discharge Results - Labs CBC & Chem 7: 06/12/21 04:00 06/12/21 04:00 Labs: Laboratory Last Values WBC 4.0 K/mm3 (4.5-11.0) L 06/12/21 04:00 RBC 3.50 M/mm3 (3.65-5.03) L 06/12/21 04:00 Hgb 9.4 gm/dl (11.8-15.2) L 06/12/21 04:00 Hct 29.9 % (35.5-45.6) L 06/12/21 04:00 MCV 85 fl (84-94) 06/12/21 04:00 MCH 27 pg (28-32) L 06/12/21 04:00 MCHC 31 % (32-34) L 06/12/21 04:00 RDW 15.3 % (13.2-15.2) H 06/12/21 04:00 Plt Count 126 K/mm3 (140-440) L 06/12/21 04:00 Lymph % (Auto) Underwriter Solicitation Director 06/01/21 07:10 Ray % (Auto) Underwriter Solicitation Director 06/01/21 07:10 Eos % (Auto) Underwriter Solicitation Director 06/01/21 07:10 Baso % (Auto) Underwriter Solicitation Director 06/01/21 07:10 Lymph # (Auto) Underwriter Solicitation Director 06/01/21 07:10 Ray # (Auto) Underwriter Solicitation Director 06/01/21 07:10 Eos # (Auto) Underwriter Solicitation Director 06/01/21 07:10 Baso # (Auto) Underwriter Solicitation Director 06/01/21 07:10 Add Manual Diff Complete 06/11/21 05:51 Total Counted 100 06/11/21 05:51 Seg Neutrophils % Underwriter Solicitation Director 06/01/21 07:10 Seg Neuts % (Manual) 93.0 % (40.0-70.0) H 06/11/21 05:51 Band Neutrophils % 3.0 % 06/11/21 05:51 Lymphocytes % (Manual) 1.0 % (13.4-35.0) L 06/11/21 05:51 Reactive Lymphs % (Man) 1.0 % 06/01/21 07:10 Monocytes % (Manual) 3.0 % (0.0-7.3) 06/11/21 05:51 Nucleated RBC % Not Reportable 06/11/21 05:51 Seg Neutrophils # Underwriter Solicitation Director 06/01/21 07:10 Seg Neutrophils # Man 4.3 K/mm3 (1.8-7.7) 06/11/21 05:51 Band Neutrophils # 0.1 K/mm3 06/11/21 05:51 Lymphocytes # (Manual) 0.0 K/mm3 (1.2-5.4) L 06/11/21 05:51 Abs React Lymphs (Man) 0.0 K/mm3 06/11/21 05:51 Monocytes # (Manual) 0.1 K/mm3 (0.0-0.8) 06/11/21 05:51 Eosinophils # (Manual) 0.0 K/mm3 (0.0-0.4) 06/11/21 05:51 Basophils # (Manual) 0.0 K/mm3 (0.0-0.1) 06/11/21 05:51 Metamyelocytes # 0.0 K/mm3 06/11/21 05:51 Myelocytes # 0.0 K/mm3 06/11/21 05:51 Promyelocytes # 0.0 K/mm3 06/11/21 05:51 Blast Cells # 0.0 K/mm3 06/11/21 05:51 WBC Morphology Not Reportable 06/11/21 05:51 Hypersegmented Neuts Not Reportable 06/11/21 05:51 Hyposegmented Neuts Not Reportable 06/11/21 05:51 Hypogranular Neuts Not Reportable 06/11/21 05:51 Smudge Cells Not Reportable 06/11/21 05:51 Toxic Granulation Not Reportable 06/11/21 05:51 Toxic Vacuolation Not Reportable 06/11/21 05:51 Dohle Bodies Not Reportable 06/11/21 05:51 Pelger-Huet Anomaly Not Reportable 06/11/21 05:51 Kaci Rods Not Reportable 06/11/21 05:51 Platelet Estimate Consistent w auto 06/11/21 05:51 Clumped Platelets Not Reportable 06/11/21 05:51 Plt Clumps, EDTA Not Reportable 06/11/21 05:51 Large Platelets Not Reportable 06/11/21 05:51 Giant Platelets Not Reportable 06/11/21 05:51 Platelet Satelliting Not Reportable 06/11/21 05:51 Plt Morphology Comment Not Reportable 06/11/21 05:51 RBC Morphology Normal 06/11/21 05:51 Dimorphic RBCs Not Reportable 06/11/21 05:51 Polychromasia Not Reportable 06/11/21 05:51 Hypochromasia Not Reportable 06/11/21 05:51 Poikilocytosis Not Reportable 06/11/21 05:51 Anisocytosis Not Reportable 06/11/21 05:51 Microcytosis Not Reportable 06/11/21 05:51 Macrocytosis Not Reportable 06/11/21 05:51 Spherocytes Not Reportable 06/11/21 05:51 Pappenheimer Bodies Not Reportable 06/11/21 05:51 Sickle Cells Not Reportable 06/11/21 05:51 Target Cells Not Reportable 06/11/21 05:51 Tear Drop Cells Not Reportable 06/11/21 05:51 Ovalocytes Not Reportable 06/11/21 05:51 Helmet Cells Not Reportable 06/11/21 05:51 [place] Bodies Not Reportable 06/11/21 05:51 [place] Rings Not Reportable 06/11/21 05:51 [place] Cells Not Reportable 06/11/21 05:51 Bite Cells Not Reportable 06/11/21 05:51 Crenated Cell Not Reportable 06/11/21 05:51 Elliptocytes Not Reportable 06/11/21 05:51 Acanthocytes (Spur) Not Reportable 06/11/21 05:51 Rouleaux Not Reportable 06/11/21 05:51 Hemoglobin C Crystals Not Reportable 06/11/21 05:51 Schistocytes Not Reportable 06/11/21 05:51 Malaria parasites Not Reportable 06/11/21 05:51 Dick Bodies Not Reportable 06/11/21 05:51 Hem Pathologist Commnt No 06/11/21 05:51 D-Dimer 3584.01 ng/mlDDU (0-234) H 05/27/21 08:09 ABG pH 7.456 (7.320-7.450) H 06/05/21 20:06 POC ABG pCO2 43.4 mmHg (32.0-48.0) 06/05/21 20:06 ABG pCO2 29.0 mm Hg 05/30/21 22:32 POC ABG pO2 102.1 mmHg (83-108) 06/05/21 20:06 ABG pO2 141.8 mm Hg (80.0-90.0) H 05/30/21 22:32 POC ABG HCO3 29.9 06/05/21 20:06 ABG HCO3 19.9 mmol/L (20.0-26.0) L 05/30/21 22:32 ABG O2 Saturation 98.2 (0-100) 06/05/21 20:06 ABG O2 Content 19.9 (0.0-44) 05/30/21 22:32 POC ABG Base Excess 5.4 06/05/21 20:06 ABG Base Excess -2.7 mmol/L (-2.0-3.0) L 05/30/21 22:32 ABG Hemoglobin 10.3 (12.0-17.5) L 06/05/21 20:06 ABG Oxyhemoglobin 97.6 (94-98) 06/05/21 20:06 ABG Carboxyhemoglobin 1.1 % (0.0-5.0) 05/30/21 22:32 ABG Methemoglobin 0.3 (0.0-1.5) 06/05/21 20:06 ABG Sodium 138.7 mmol/L (136.0-145.0) 06/05/21 20:06 ABG Potassium 3.1 mmol/L (3.40-4.50) L 06/05/21 20:06 ABG Chloride 103.0 mmol/L (98-107) 06/05/21 20:06 ABG Glucose 125 mg/dL (65-95) H 06/05/21 20:06 VBG pH 7.254 (7.320-7.420) L 05/24/21 02:09 Oxyhemoglobin 97.1 % (95.0-99.0) 05/30/21 22:32 Carboxyhemoglobin 0.3 (0.5-1.5) L 06/05/21 20:06 FiO2 70 % 05/30/21 22:32 FiO2 % 65.0 06/05/21 20:06 Sodium 149 mmol/L (137-145) H 06/12/21 04:00 Potassium 3.6 mmol/L (3.6-5.0) 06/12/21 04:00 Chloride 114.1 mmol/L (98-107) H 06/12/21 04:00 Carbon Dioxide 25 mmol/L (22-30) 06/12/21 04:00 Anion Gap 14 mmol/L 06/12/21 04:00 BUN 37 mg/dL (9-20) H 06/12/21 04:00 Creatinine 1.1 mg/dL (0.8-1.3) 06/12/21 04:00 Estimated GFR > 60 ml/min 06/12/21 04:00 BUN/Creatinine Ratio 34 % 06/12/21 04:00 Glucose 137 mg/dL (75-100) H 06/12/21 04:00 POC Glucose 128 mg/dL (70-105) H 06/12/21 06:37 Lactic Acid 1.20 mmol/L (0.7-2.0) 06/06/21 00:04 Calcium 8.0 mg/dL (8.4-10.2) L 06/12/21 04:00 Phosphorus 2.20 mg/dL (2.5-4.5) L D 06/03/21 05:57 Magnesium 2.30 mg/dL (1.7-2.3) 06/06/21 04:35 Ferritin 2742.0 ng/mL (30.0-300.0) H 05/27/21 08:09 Total Bilirubin 0.40 mg/dL (0.1-1.2) 06/10/21 01:52 AST 55 units/L (5-40) H 06/10/21 01:52 ALT 21 units/L (7-56) 06/10/21 01:52 Alkaline Phosphatase 88 units/L (35-129) 06/10/21 01:52 Ammonia 22.0 umol/L (25-60) L 05/23/21 18:48 Lactate Dehydrogenase 642 units/L (91-180) H 05/27/21 08:09 Troponin T < 0.010 ng/mL (0.00-0.029) 05/23/21 18:48 C-Reactive Protein 4.10 mg/dL (0.00-1.30) H 06/09/21 05:51 Total Protein 5.6 g/dL (6.3-8.2) L 06/10/21 01:52 Albumin 1.9 g/dL (3.9-5) L 06/10/21 01:52 Albumin/Globulin Ratio 0.5 % 06/10/21 01:52 Procalcitonin 7.52 ng/mL (<0.15) 06/09/21 05:51 TSH 1.150 mlU/mL (0.270-4.200) 05/23/21 18:48 Arterial Blood Glucose 125 mg/dL (65-95) H 06/05/21 20:06 Arterial Blood Ionized Calcium 4.5 mg/dL (4.6-5.3) L 05/29/21 17:58 Urine Color Eli (Yellow) 05/30/21 01:00 Urine Turbidity Cloudy (Clear) 05/30/21 01:00 Urine pH 5.0 (5.0-7.0) 05/30/21 01:00 Ur Specific [place] 1.019 (1.003-1.030) 05/30/21 01:00 Urine Protein 100 mg/dl mg/dL (Negative) 05/30/21 01:00 Urine Glucose (UA) Neg mg/dL (Negative) 05/30/21 01:00 Urine Ketones Neg mg/dL (Negative) 05/30/21 01:00 Urine Blood Mod (Negative) 05/30/21 01:00 Urine Nitrite Neg (Negative) 05/30/21 01:00 Urine Bilirubin Neg (Negative) 05/30/21 01:00 Urine Urobilinogen 4.0 mg/dL (<2.0) 05/30/21 01:00 Ur Leukocyte Esterase Neg (Negative) 05/30/21 01:00 Urine WBC (Auto) 12.0 /HPF (0.0-6.0) H 05/30/21 01:00 Urine RBC (Auto) 21.0 /HPF (0.0-6.0) 05/30/21 01:00 U Epithel Cells (Auto) 2.0 /HPF (0-13.0) 05/30/21 01:00 Uric Acid Crystals Few 05/30/21 01:00 Urine Mucus Few /HPF 05/30/21 01:00 Urine Yeast (Budding) 2+ /HPF 05/30/21 01:00 Vancomycin Trough 22.6 ug/mL (5.0-20.0) H 06/11/21 05:51 Plasma/Serum Alcohol < 0.01 % (0-0.07) 05/23/21 18:48 Proteinase 3 (PR3) Ab <1.0 AI (<1.0) 05/24/21 20:57 Myeloperoxidase Ab <1.0 AI (<1.0) 05/24/21 20:57 Complement C3 108 mg/dL (82-185) 05/24/21 20:57 Complement C4 29 mg/dL (15-53) 05/24/21 20:57 Coronavirus (PCR) Negative (Negative) 05/26/21 08:41 Blood Type A POSITIVE 05/29/21 08:15 Antibody Screen Negative 05/29/21 08:15 Heart/IV: Voiding Method Condom Catheter Active Medications - Current Medications Current Medications: Generic Name Dose Route Start Last Admin Trade Name Freq PRN Reason Stop Dose Admin Acetaminophen 650 mg 05/29/21 07:05 06/03/21 21:32 Acetaminophen 325 Mg Tab PO 650 mg Q6H PRN Administration Pain, Mild (1-3) Acetaminophen 650 mg 06/03/21 08:21 06/03/21 08:42 Acetaminophen 650 Mg Rect Supp PA 650 mg Q4H PRN Administration Pain, Mild (1-3) Albuterol/Ipratropium 1 ampul 06/07/21 20:00 06/12/21 08:36 Ipratropium/Albuterol Sulfate 3 Ml Ampul.Neb IH 1 ampul TIDRT MIKE Administration Lipase/Protease/Amylase 1 each 06/03/21 12:23 Lipase 10,500/Protease 25,000/Amylase 43,750 (Units) Dr Rodney FEEDTUBE PRN PRN For Clogged Feeding Tube Docusate Sodium 100 mg 06/07/21 10:00 06/12/21 10:18 Docusate Sodium 100 Mg Cap PO Not Given DAILY MIKE Heparin Sodium (Porcine) 5,000 unit 05/24/21 06:00 06/12/21 06:12 Heparin 5,000 Unit/1 Ml Vial SUB-Q 5,000 unit Q8HR MIKE Administration Metronidazole 500 mg in 100 mls @ 100 mls/hr 06/08/21 13:00 06/12/21 05:09 Flagyl 500 Mg/100 Ml IV 06/16/21 05:59 100 mls/hr Q8H MIKE Administration Protocol Cefepime HCl 2 gm in 100 mls @ 200 mls/hr 06/08/21 23:08 06/12/21 06:12 Cefepime/Ns 2 Gm/100 Ml IV 06/16/21 14:29 200 mls/hr Q8HR MIKE Administration Protocol Dextrose/Sodium Chloride 1,000 mls @ 75 mls/hr 06/10/21 13:00 06/11/21 21:57 D5ns IV 75 mls/hr DIRECT MIKE Administration Vancomycin HCl 1 gm in 250 mls @ 166.667 mls/hr 06/12/21 08:00 Vancomycin/Ns 1 Gm/250 Ml IV 06/13/21 09:29 Q24H MIKE Methylprednisolone Sodium Succinate 40 mg 06/08/21 22:00 06/12/21 10:18 Methylprednisolone Sod Succinate 40 Mg/1 Ml Inj IV 40 mg Q12HR MIKE Administration Morphine Sulfate 2 mg 05/23/21 22:01 06/09/21 01:47 Morphine 2 Mg/1 Ml Inj IV 2 mg Q4H PRN Administration Pain, Moderate (4-6) Ondansetron HCl 4 mg 06/04/21 13:41 06/09/21 22:05 Ondansetron 4 Mg/2 Ml Inj IV 4 mg Q4H PRN Administration Nausea And Vomiting Simple Syrup 15 ml 06/03/21 12:23 Simple Syrup 15 Ml FEEDTUBE PRN PRN Hypoglycemia Simple Syrup 30 ml 06/03/21 12:23 Simple Syrup 15 Ml FEEDTUBE PRN PRN Hypoglycemia Sodium Bicarbonate 325 mg 06/03/21 12:23 Sodium Bicarbonate 325 Mg Tab FEEDTUBE PRN PRN For Clogged Feeding Tube Sodium Chloride 10 ml 05/24/21 10:00 06/12/21 10:18 Sodium Chloride 0.9% 10 Ml Flush Syringe IV 10 ml BID MIKE Administration Sodium Chloride 10 ml 05/23/21 22:01 Sodium Chloride 0.9% 10 Ml Flush Syringe IV PRN PRN LINE FLUSH Nutrition/Malnutrition Assess - Dietary Evaluation Nutrition/Malnutrition Findings: Nutrition Notes Start: 05/25/21 09:33 Freq: Status: Active Protocol: Document 06/09/21 17:54 GB (Rec: 06/09/21 18:04 GB [id number]) Nutrition Notes Initial or Follow up Reassessment Current Diagnosis Sepsis Other Pertinent Diagnosis COVID-19 (+), pneu, ?ileus Current Diet Mechanical soft with thin liquids Labs/Tests 06/09: BUN 32, glucose 137, Ca 7.5, AST 55 Pertinent Medications D5 @ 75ml/hr (306kcal), heparinNa, NaCl, vancomycin Height 5 ft 11 in Weight 63 kg [place] Body Weight (kg) 78.18 BMI 19.3 Weight change and time frame 05/24: 77.111kg 06/08: 63kg Change of -14.111kg for -18.2% over 3 weeks r/t COVID+ complications Weight Status Appropriate Subjective/Other Information Diet advanced to mechancial soft with thin liquids. Per chart: diet tolerated well. Family agrees to home with home health. Percent of energy/protein needs met: PO intake of meals at 50% or greater meets 75% of estimated energy needs. Burn Absent Trauma Absent GI Symptoms Vomiting,Constipation Food Allergy No Skin Integrity/Comment No complications reported Current % PO Good (75-100%) Minimum of two criteria No #1 Nutrition Diagnosis Inadequate oral intake Comments: Nutritional supplement beverage ordered 06/03: TF ordered 06/09: diet advanced to mechanical soft, thin liquids. Tolerating well Etiology acute illness As Evidenced by Signs and Symptoms decreased PO for 10-12 days CLIP RIVETER 06/03: TF required to meet needs. 06/09: Diet advanced on 06/07 Diagnosis Progress(for reassessment Resolved documentation) Is patient on ventilator? No Is Patient Ambulatory and/or Out of Bed No REE-(Sargent-St. Jeor-confined to bed) 1789.080 Kcal/Kg value to use for calculation 25 Approximate Energy Requirements Using 1575 kcal/Kg Calculation Used for Recommendations Kcal/kg Additional Notes Pro needs 1-1.5g/kg @63k- 95g/day Fluid needs 1ml/kcal Nutrition Intervention Change Diet Order: continue Nutrition Support: n/a Goal #1 PO intake of meals to be 50% or greater TID daily for LOS Goal #2 Weight to maintain within +/-3 % current weight for LOS 06/09: weight change r/t COVID+ at -18% Anticipated Discharge Needs: home with home health Follow-Up By: 06/16/21 Additional Comments F/U: PO intake, weight - Attestation Statement I have reviewed and agreed w/ Malnutrition eval & tx plan: Yes
--- NOTE | 2021-06-12 12:43 | Progress Note ---
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 - continue NIV scheduled qhs with prn daytime use - continue aspiration precautions - continue care as below otherwise; - continue anti-infective's per ID rec's - continue to wean supplemental oxygen for target O2 sat's > 90% acutely - bronchodilators with pulmonary hygiene per RT - continue accuchecks with glycemic control per SSI (While critically ill target blood glucose of 140-180 mg/dL; avoid hypoglycemia) - avoid nephrotoxins, renally dose all medications - continue to avoid benzodiazepine's, reduce the possibility of delirium - prn analgesia per pain score - Maintenance of sleep-wake cycle, avoid delirium - G.I. & VTE prophylaxis - PT/OT/ROM exercises - mobility protocols for pressure ulcer prophylaxis - Monitor hemodynamics closely - continue other care per attending / other consultants - discharge planning ongoing concurrently COVID SPECIFIC INTERVENTIONS - repeat COVID-19 test result negative .... Re-evaluate in am & prn CONDITION: CRITICAL PROGNOSIS: GUARDED CODE STATUS: FULL CODE The high probability of a clinically significant, sudden or life-threatening deterioration of the [respiratory, GI, renal & cardiovascular] system(s) required my full and direct attention, intervention and personal management. The aggregate critical care time was [33] minutes without overlap. Time includes spent on; [x] Data Review and interpretation [x] Patient assessment and monitoring of vital signs [x] Documentation [x] Medication orders and management Subjective Date of service: 06/12/21 Principal diagnosis: Acute hypoxemic resp failure; Pneumonia; PUI COVID-19 infe ction Interval history: Patient is seen today for: Acute hypoxemic respiratory failure; Bilateral pneumonia; Suspected 2018 novel coronavirus infection Seen and examined at bedside; 24hour events reviewed; nursing and respiratory care staff consulted; no adverse overnight events reported to me; resting in bed; placed on BIPAP yesterday and RTC so far; failed HFNC trial; FiO2 at 100%; alert; denies chest pain; denies N/V/F/C Objective Vital Signs - 12hr 06/12/21 06/12/21 06/12/21 03:32 08:28 08:48 Pulse Rate 61 65 Pulse Rate [ 66 Posterior Bilateral Throughout] Respiratory 26 H 40 H Rate Respiratory 42 H Rate [Posterior Bilateral Throughout] O2 Sat by Pulse 99 90 Oximetry Constitutional: appears uncomfortable, other (middle aged male with mildly increased respiratory effort at rest on BIPAP) Eyes: non-icteric ENT: oropharynx moist, other (BIPAP FFM) Neck: supple, no JVD Effort: mildly labored Ascultation: Bilateral: diminished breath sounds (bases), rhonchi Percussion: Bilateral: not dull Cardiovascular: regular rate and rhythm Gastrointestinal: hypoactive bowel sounds, soft, non-tender, other (distended but very soft) Integumentary: normal Extremities: no cyanosis, no edema, pulses normal, no ischemia or petechiae Neurologic: pupils equal and round, CN II-XII normal, other (somnolent) Psychiatric: other (flat affect) CBC and BMP: 06/13/21 06:05 06/13/21 06:05 ABG, PT/INR, D-dimer: ABG ABG pH 7.456 (7.320-7.450) H 06/05/21 20:06 POC ABG pCO2 43.4 mmHg (32.0-48.0) 06/05/21 20:06 ABG pCO2 29.0 mm Hg 05/30/21 22:32 POC ABG pO2 102.1 mmHg (83-108) 06/05/21 20:06 ABG pO2 141.8 mm Hg (80.0-90.0) H 05/30/21 22:32 POC ABG HCO3 29.9 06/05/21 20:06 ABG O2 Saturation 98.2 (0-100) 06/05/21 20:06 PT/INR, D-dimer D-Dimer 3584.01 ng/mlDDU (0-234) H 05/27/21 08:09 Abnormal lab findings: Abnormal Labs 05/23/21 05/23/21 05/23/21 18:48 18:48 18:48 WBC 11.8 H RBC 5.18 H Hgb Hct MCV MCH MCHC RDW Plt Count Seg Neuts % (Manual) 84.0 H Lymphocytes % (Manual) Nucleated RBC % Seg Neutrophils # Man 9.9 H Lymphocytes # (Manual) D-Dimer > 22790 H ABG pH POC ABG pCO2 POC ABG pO2 ABG pO2 ABG HCO3 ABG Base Excess ABG Hemoglobin ABG Oxyhemoglobin ABG Sodium ABG Potassium ABG Chloride ABG Glucose VBG pH Carboxyhemoglobin Sodium Potassium Chloride Carbon Dioxide BUN Creatinine Glucose POC Glucose Lactic Acid 2.30 H* Calcium Phosphorus Magnesium Ferritin AST Ammonia Lactate Dehydrogenase C-Reactive Protein Total Protein Albumin Arterial Blood Glucose Arterial Blood Ionized Calcium Urine WBC (Auto) Vancomycin Trough 05/23/21 05/23/21 05/23/21 18:48 18:48 18:48 WBC RBC Hgb Hct MCV MCH MCHC RDW Plt Count Seg Neuts % (Manual) Lymphocytes % (Manual) Nucleated RBC % Seg Neutrophils # Man Lymphocytes # (Manual) D-Dimer ABG pH POC ABG pCO2 POC ABG pO2 ABG pO2 ABG HCO3 ABG Base Excess ABG Hemoglobin ABG Oxyhemoglobin ABG Sodium ABG Potassium ABG Chloride ABG Glucose VBG pH Carboxyhemoglobin Sodium 151 H Potassium 5.1 H Chloride 113.2 H Carbon Dioxide 17 L BUN 180 H Creatinine 4.3 H Glucose 114 H POC Glucose Lactic Acid Calcium Phosphorus Magnesium Ferritin 2000.0 H AST Ammonia 22.0 L Lactate Dehydrogenase 577 H C-Reactive Protein 8.80 H Total Protein 9.4 H Albumin 3.0 L Arterial Blood Glucose Arterial Blood Ionized Calcium Urine WBC (Auto) Vancomycin Trough 05/23/21 05/24/21 05/24/21 21:06 02:09 02:09 WBC RBC Hgb Hct MCV MCH MCHC RDW Plt Count Seg Neuts % (Manual) Lymphocytes % (Manual) Nucleated RBC % Seg Neutrophils # Man Lymphocytes # (Manual) D-Dimer ABG pH POC ABG pCO2 POC ABG pO2 ABG pO2 ABG HCO3 ABG Base Excess ABG Hemoglobin ABG Oxyhemoglobin ABG Sodium ABG Potassium ABG Chloride ABG Glucose VBG pH 7.254 L Carboxyhemoglobin Sodium Potassium Chloride Carbon Dioxide BUN Creatinine Glucose POC Glucose Lactic Acid 2.10 H* 2.30 H* Calcium Phosphorus Magnesium Ferritin AST Ammonia Lactate Dehydrogenase C-Reactive Protein Total Protein Albumin Arterial Blood Glucose Arterial Blood Ionized Calcium Urine WBC (Auto) Vancomycin Trough 05/24/21 05/24/21 05/24/21 13:11 17:34 18:12 WBC RBC Hgb Hct MCV MCH MCHC RDW Plt Count Seg Neuts % (Manual) Lymphocytes % (Manual) Nucleated RBC % Seg Neutrophils # Man Lymphocytes # (Manual) D-Dimer ABG pH POC ABG pCO2 POC ABG pO2 ABG pO2 ABG HCO3 ABG Base Excess ABG Hemoglobin ABG Oxyhemoglobin ABG Sodium ABG Potassium ABG Chloride ABG Glucose VBG pH Carboxyhemoglobin Sodium 155 H Potassium 6.9 H* D 5.7 H Chloride 121.9 H Carbon Dioxide 20 L BUN 139 H Creatinine 2.7 H Glucose 139 H POC Glucose 153 H Lactic Acid Calcium Phosphorus Magnesium Ferritin AST Ammonia Lactate Dehydrogenase C-Reactive Protein Total Protein Albumin Arterial Blood Glucose Arterial Blood Ionized Calcium Urine WBC (Auto) Vancomycin Trough 05/25/21 05/25/21 05/26/21 11:33 11:33 03:15 WBC 13.8 H RBC 5.06 H Hgb Hct MCV MCH MCHC RDW Plt Count Seg Neuts % (Manual) Lymphocytes % (Manual) Nucleated RBC % Seg Neutrophils # Man Lymphocytes # (Manual) D-Dimer ABG pH POC ABG pCO2 POC ABG pO2 ABG pO2 ABG HCO3 ABG Base Excess ABG Hemoglobin ABG Oxyhemoglobin ABG Sodium ABG Potassium ABG Chloride ABG Glucose VBG pH Carboxyhemoglobin Sodium 164 H* D 166 H* Potassium 5.4 H 5.5 H Chloride 131.3 H 129.2 H Carbon Dioxide BUN 109 H 102 H Creatinine 1.9 H 1.8 H Glucose 117 H 113 H POC Glucose Lactic Acid Calcium Phosphorus Magnesium Ferritin AST Ammonia Lactate Dehydrogenase 711 H C-Reactive Protein 7.90 H Total Protein Albumin Arterial Blood Glucose Arterial Blood Ionized Calcium Urine WBC (Auto) Vancomycin Trough 05/26/21 05/26/21 05/26/21 03:15 03:15 03:15 WBC 13.1 H RBC 5.43 H Hgb 15.3 H Hct 48.5 H MCV MCH MCHC RDW 15.4 H Plt Count Seg Neuts % (Manual) Lymphocytes % (Manual) Nucleated RBC % Seg Neutrophils # Man Lymphocytes # (Manual) D-Dimer 6229.14 H ABG pH POC ABG pCO2 POC ABG pO2 ABG pO2 ABG HCO3 ABG Base Excess ABG Hemoglobin ABG Oxyhemoglobin ABG Sodium ABG Potassium ABG Chloride ABG Glucose VBG pH Carboxyhemoglobin Sodium Potassium Chloride Carbon Dioxide BUN Creatinine Glucose POC Glucose Lactic Acid Calcium Phosphorus Magnesium Ferritin 2991.0 H AST Ammonia Lactate Dehydrogenase C-Reactive Protein Total Protein Albumin Arterial Blood Glucose Arterial Blood Ionized Calcium Urine WBC (Auto) Vancomycin Trough 05/27/21 05/27/21 05/27/21 08:09 08:09 08:09 WBC 12.4 H RBC 5.27 H Hgb Hct 46.6 H MCV MCH MCHC 31 L RDW 15.7 H Plt Count Seg Neuts % (Manual) Lymphocytes % (Manual) Nucleated RBC % Seg Neutrophils # Man Lymphocytes # (Manual) D-Dimer 3584.01 H ABG pH POC ABG pCO2 POC ABG pO2 ABG pO2 ABG HCO3 ABG Base Excess ABG Hemoglobin ABG Oxyhemoglobin ABG Sodium ABG Potassium ABG Chloride ABG Glucose VBG pH Carboxyhemoglobin Sodium 174 H* Potassium Chloride 136.9 H Carbon Dioxide BUN 90 H Creatinine 1.8 H Glucose POC Glucose Lactic Acid Calcium Phosphorus Magnesium Ferritin AST Ammonia Lactate Dehydrogenase 642 H C-Reactive Protein 5.20 H Total Protein Albumin Arterial Blood Glucose Arterial Blood Ionized Calcium Urine WBC (Auto) Vancomycin Trough 05/27/21 05/28/21 05/28/21 08:09 07:31 07:31 WBC RBC Hgb Hct MCV MCH 27 L MCHC 31 L RDW Plt Count Seg Neuts % (Manual) 88.0 H Lymphocytes % (Manual) 11.0 L Nucleated RBC % Seg Neutrophils # Man 8.3 H Lymphocytes # (Manual) 1.0 L D-Dimer ABG pH POC ABG pCO2 POC ABG pO2 ABG pO2 ABG HCO3 ABG Base Excess ABG Hemoglobin ABG Oxyhemoglobin ABG Sodium ABG Potassium ABG Chloride ABG Glucose VBG pH Carboxyhemoglobin Sodium 162 H* D Potassium Chloride 125.8 H Carbon Dioxide BUN 72 H Creatinine 1.6 H Glucose 131 H POC Glucose Lactic Acid Calcium Phosphorus Magnesium 3.00 H Ferritin 2742.0 H AST Ammonia Lactate Dehydrogenase C-Reactive Protein Total Protein Albumin Arterial Blood Glucose Arterial Blood Ionized Calcium Urine WBC (Auto) Vancomycin Trough 05/29/21 05/29/21 05/29/21 06:40 06:40 17:58 WBC 14.1 H RBC Hgb Hct MCV MCH 27 L MCHC 31 L RDW Plt Count Seg Neuts % (Manual) 85.0 H Lymphocytes % (Manual) 9.0 L Nucleated RBC % 1.0 H Seg Neutrophils # Man 12.0 H Lymphocytes # (Manual) D-Dimer ABG pH 7.505 H POC ABG pCO2 30.3 L POC ABG pO2 128.1 H ABG pO2 ABG HCO3 ABG Base Excess ABG Hemoglobin 11.9 L ABG Oxyhemoglobin ABG Sodium ABG Potassium ABG Chloride 113.0 H ABG Glucose 110 H VBG pH Carboxyhemoglobin Sodium 148 H D Potassium Chloride 111.3 H Carbon Dioxide 20 L BUN 45 H Creatinine Glucose POC Glucose Lactic Acid Calcium Phosphorus 2.10 L D Magnesium Ferritin AST Ammonia Lactate Dehydrogenase C-Reactive Protein Total Protein Albumin Arterial Blood Glucose 110 H Arterial Blood Ionized Calcium 4.5 L Urine WBC (Auto) Vancomycin Trough 05/30/21 05/30/21 05/30/21 01:00 06:06 13:48 WBC RBC Hgb Hct MCV MCH MCHC RDW Plt Count Seg Neuts % (Manual) Lymphocytes % (Manual) Nucleated RBC % Seg Neutrophils # Man Lymphocytes # (Manual) D-Dimer ABG pH POC ABG pCO2 POC ABG pO2 ABG pO2 90.9 H ABG HCO3 ABG Base Excess ABG Hemoglobin 11.8 L ABG Oxyhemoglobin ABG Sodium ABG Potassium ABG Chloride ABG Glucose VBG pH Carboxyhemoglobin Sodium 150 H Potassium Chloride 117.6 H Carbon Dioxide BUN 40 H Creatinine Glucose POC Glucose Lactic Acid Calcium 8.3 L Phosphorus Magnesium Ferritin AST Ammonia Lactate Dehydrogenase C-Reactive Protein Total Protein Albumin Arterial Blood Glucose Arterial Blood Ionized Calcium Urine WBC (Auto) 12.0 H Vancomycin Trough 05/30/21 05/31/21 05/31/21 22:32 02:22 02:22 WBC RBC Hgb 11.2 L Hct 34.8 L MCV MCH MCHC RDW Plt Count 127 L Seg Neuts % (Manual) 97.0 H Lymphocytes % (Manual) Nucleated RBC % Seg Neutrophils # Man 10.5 H Lymphocytes # (Manual) 0.0 L D-Dimer ABG pH 7.454 H POC ABG pCO2 POC ABG pO2 ABG pO2 141.8 H ABG HCO3 19.9 L ABG Base Excess -2.7 L ABG Hemoglobin ABG Oxyhemoglobin ABG Sodium ABG Potassium ABG Chloride ABG Glucose VBG pH Carboxyhemoglobin Sodium 152 H Potassium Chloride 118.9 H Carbon Dioxide 19 L BUN 48 H Creatinine 1.5 H Glucose 101 H POC Glucose Lactic Acid Calcium 8.3 L Phosphorus Magnesium Ferritin AST Ammonia Lactate Dehydrogenase C-Reactive Protein Total Protein Albumin Arterial Blood Glucose Arterial Blood Ionized Calcium Urine WBC (Auto) Vancomycin Trough 05/31/21 05/31/21 06/01/21 11:42 21:28 07:10 WBC RBC Hgb Hct MCV MCH MCHC RDW Plt Count Seg Neuts % (Manual) Lymphocytes % (Manual) Nucleated RBC % Seg Neutrophils # Man Lymphocytes # (Manual) D-Dimer ABG pH POC ABG pCO2 POC ABG pO2 ABG pO2 ABG HCO3 ABG Base Excess ABG Hemoglobin ABG Oxyhemoglobin ABG Sodium ABG Potassium ABG Chloride ABG Glucose VBG pH Carboxyhemoglobin Sodium 150 H Potassium Chloride 115.7 H Carbon Dioxide BUN 47 H Creatinine Glucose 115 H POC Glucose 161 H Lactic Acid Calcium Phosphorus Magnesium 2.50 H Ferritin AST Ammonia Lactate Dehydrogenase C-Reactive Protein Total Protein Albumin Arterial Blood Glucose Arterial Blood Ionized Calcium Urine WBC (Auto) Vancomycin Trough 20.2 H 06/01/21 06/01/21 06/01/21 07:10 07:54 10:39 WBC RBC Hgb 10.7 L Hct 33.5 L MCV MCH MCHC RDW Plt Count Seg Neuts % (Manual) 92.0 H Lymphocytes % (Manual) 4.0 L Nucleated RBC % Seg Neutrophils # Man Lymphocytes # (Manual) 0.3 L D-Dimer ABG pH POC ABG pCO2 POC ABG pO2 ABG pO2 ABG HCO3 ABG Base Excess ABG Hemoglobin ABG Oxyhemoglobin ABG Sodium ABG Potassium ABG Chloride ABG Glucose VBG pH Carboxyhemoglobin Sodium 152 H Potassium Chloride 117.6 H Carbon Dioxide BUN 50 H Creatinine Glucose 140 H POC Glucose 127 H Lactic Acid Calcium 8.3 L Phosphorus Magnesium Ferritin AST Ammonia Lactate Dehydrogenase C-Reactive Protein Total Protein Albumin Arterial Blood Glucose Arterial Blood Ionized Calcium Urine WBC (Auto) Vancomycin Trough 06/01/21 06/01/21 06/01/21 11:11 16:16 21:45 WBC RBC Hgb Hct MCV MCH MCHC RDW Plt Count Seg Neuts % (Manual) Lymphocytes % (Manual) Nucleated RBC % Seg Neutrophils # Man Lymphocytes # (Manual) D-Dimer ABG pH POC ABG pCO2 POC ABG pO2 ABG pO2 ABG HCO3 ABG Base Excess ABG Hemoglobin ABG Oxyhemoglobin ABG Sodium ABG Potassium ABG Chloride ABG Glucose VBG pH Carboxyhemoglobin Sodium Potassium Chloride Carbon Dioxide BUN Creatinine Glucose POC Glucose 120 H 129 H 150 H Lactic Acid Calcium Phosphorus Magnesium Ferritin AST Ammonia Lactate Dehydrogenase C-Reactive Protein Total Protein Albumin Arterial Blood Glucose Arterial Blood Ionized Calcium Urine WBC (Auto) Vancomycin Trough 06/02/21 06/02/21 06/02/21 06:53 06:53 07:52 WBC RBC Hgb 10.4 L Hct 32.4 L MCV MCH 27 L MCHC RDW Plt Count Seg Neuts % (Manual) 93.0 H Lymphocytes % (Manual) 3.0 L Nucleated RBC % Seg Neutrophils # Man Lymphocytes # (Manual) 0.2 L D-Dimer ABG pH POC ABG pCO2 POC ABG pO2 ABG pO2 ABG HCO3 ABG Base Excess ABG Hemoglobin ABG Oxyhemoglobin ABG Sodium ABG Potassium ABG Chloride ABG Glucose VBG pH Carboxyhemoglobin Sodium 149 H Potassium Chloride 112.6 H Carbon Dioxide BUN 54 H Creatinine Glucose 123 H POC Glucose 116 H Lactic Acid Calcium 8.2 L Phosphorus Magnesium Ferritin AST Ammonia Lactate Dehydrogenase C-Reactive Protein Total Protein Albumin Arterial Blood Glucose Arterial Blood Ionized Calcium Urine WBC (Auto) Vancomycin Trough 06/03/21 06/03/21 06/03/21 05:57 05:57 21:23 WBC RBC Hgb 10.7 L Hct 33.0 L MCV 83 L MCH 27 L MCHC RDW Plt Count Seg Neuts % (Manual) 88.0 H Lymphocytes % (Manual) 8.0 L Nucleated RBC % 2.0 H Seg Neutrophils # Man Lymphocytes # (Manual) 0.6 L D-Dimer ABG pH POC ABG pCO2 POC ABG pO2 39.0 L ABG pO2 ABG HCO3 ABG Base Excess ABG Hemoglobin ABG Oxyhemoglobin 69.1 L ABG Sodium 134.1 L ABG Potassium ABG Chloride ABG Glucose 135 H VBG pH Carboxyhemoglobin Sodium Potassium Chloride Carbon Dioxide BUN 36 H Creatinine Glucose 102 H POC Glucose Lactic Acid Calcium 8.0 L Phosphorus 2.20 L D Magnesium Ferritin AST Ammonia Lactate Dehydrogenase C-Reactive Protein Total Protein Albumin Arterial Blood Glucose 135 H Arterial Blood Ionized Calcium Urine WBC (Auto) Vancomycin Trough 06/04/21 06/04/21 06/04/21 07:04 07:04 17:42 WBC RBC Hgb 11.3 L Hct 34.9 L MCV MCH 27 L MCHC RDW Plt Count Seg Neuts % (Manual) Lymphocytes % (Manual) 5.0 L Nucleated RBC % Seg Neutrophils # Man 8.4 H Lymphocytes # (Manual) 0.5 L D-Dimer ABG pH POC ABG pCO2 POC ABG pO2 ABG pO2 ABG HCO3 ABG Base Excess ABG Hemoglobin ABG Oxyhemoglobin ABG Sodium ABG Potassium ABG Chloride ABG Glucose VBG pH Carboxyhemoglobin Sodium Potassium Chloride Carbon Dioxide BUN 27 H Creatinine Glucose POC Glucose 136 H Lactic Acid Calcium 8.2 L Phosphorus Magnesium Ferritin AST Ammonia Lactate Dehydrogenase C-Reactive Protein Total Protein Albumin Arterial Blood Glucose Arterial Blood Ionized Calcium Urine WBC (Auto) Vancomycin Trough 06/05/21 06/05/21 06/05/21 05:10 12:32 15:45 WBC RBC Hgb Hct MCV MCH MCHC RDW Plt Count Seg Neuts % (Manual) Lymphocytes % (Manual) Nucleated RBC % Seg Neutrophils # Man Lymphocytes # (Manual) D-Dimer ABG pH POC ABG pCO2 POC ABG pO2 ABG pO2 ABG HCO3 ABG Base Excess ABG Hemoglobin ABG Oxyhemoglobin ABG Sodium ABG Potassium ABG Chloride ABG Glucose VBG pH Carboxyhemoglobin Sodium Potassium 3.5 L Chloride Carbon Dioxide BUN 35 H Creatinine Glucose 130 H POC Glucose 122 H 119 H Lactic Acid Calcium 8.2 L Phosphorus Magnesium Ferritin AST Ammonia Lactate Dehydrogenase C-Reactive Protein Total Protein Albumin Arterial Blood Glucose Arterial Blood Ionized Calcium Urine WBC (Auto) Vancomycin Trough 06/05/21 06/05/21 06/06/21 20:06 21:27 00:04 WBC RBC Hgb Hct MCV MCH MCHC RDW Plt Count Seg Neuts % (Manual) Lymphocytes % (Manual) Nucleated RBC % Seg Neutrophils # Man Lymphocytes # (Manual) D-Dimer ABG pH 7.456 H POC ABG pCO2 POC ABG pO2 ABG pO2 ABG HCO3 ABG Base Excess ABG Hemoglobin 10.3 L ABG Oxyhemoglobin ABG Sodium ABG Potassium 3.1 L ABG Chloride ABG Glucose 125 H VBG pH Carboxyhemoglobin 0.3 L Sodium Potassium Chloride Carbon Dioxide BUN Creatinine Glucose POC Glucose 113 H Lactic Acid Calcium Phosphorus Magnesium Ferritin AST Ammonia Lactate Dehydrogenase C-Reactive Protein 19.60 H Total Protein Albumin Arterial Blood Glucose 125 H Arterial Blood Ionized Calcium Urine WBC (Auto) Vancomycin Trough 06/06/21 06/06/21 06/07/21 04:35 22:37 05:54 WBC RBC Hgb Hct MCV MCH MCHC RDW Plt Count Seg Neuts % (Manual) Lymphocytes % (Manual) Nucleated RBC % Seg Neutrophils # Man Lymphocytes # (Manual) D-Dimer ABG pH POC ABG pCO2 POC ABG pO2 ABG pO2 ABG HCO3 ABG Base Excess ABG Hemoglobin ABG Oxyhemoglobin ABG Sodium ABG Potassium ABG Chloride ABG Glucose VBG pH Carboxyhemoglobin Sodium Potassium Chloride Carbon Dioxide BUN 43 H Creatinine Glucose POC Glucose 114 H 130 H Lactic Acid Calcium 7.6 L Phosphorus Magnesium Ferritin AST Ammonia Lactate Dehydrogenase C-Reactive Protein Total Protein Albumin Arterial Blood Glucose Arterial Blood Ionized Calcium Urine WBC (Auto) Vancomycin Trough 06/07/21 06/07/21 06/07/21 07:32 10:03 11:36 WBC RBC 3.63 L Hgb 9.8 L Hct 30.3 L MCV 83 L MCH 27 L MCHC RDW Plt Count Seg Neuts % (Manual) Lymphocytes % (Manual) Nucleated RBC % Seg Neutrophils # Man Lymphocytes # (Manual) D-Dimer ABG pH POC ABG pCO2 POC ABG pO2 ABG pO2 ABG HCO3 ABG Base Excess ABG Hemoglobin ABG Oxyhemoglobin ABG Sodium ABG Potassium ABG Chloride ABG Glucose VBG pH Carboxyhemoglobin Sodium Potassium 3.2 L Chloride 108.5 H Carbon Dioxide BUN 36 H Creatinine Glucose 139 H POC Glucose 125 H Lactic Acid Calcium 8.0 L Phosphorus Magnesium Ferritin AST Ammonia Lactate Dehydrogenase C-Reactive Protein Total Protein Albumin Arterial Blood Glucose Arterial Blood Ionized Calcium Urine WBC (Auto) Vancomycin Trough 06/07/21 06/07/21 06/08/21 17:54 22:14 07:18 WBC RBC Hgb Hct MCV MCH MCHC RDW Plt Count Seg Neuts % (Manual) Lymphocytes % (Manual) Nucleated RBC % Seg Neutrophils # Man Lymphocytes # (Manual) D-Dimer ABG pH POC ABG pCO2 POC ABG pO2 ABG pO2 ABG HCO3 ABG Base Excess ABG Hemoglobin ABG Oxyhemoglobin ABG Sodium ABG Potassium ABG Chloride ABG Glucose VBG pH Carboxyhemoglobin Sodium 149 H Potassium Chloride 110.2 H Carbon Dioxide BUN 31 H Creatinine Glucose 131 H POC Glucose 121 H 131 H Lactic Acid Calcium 8.1 L Phosphorus Magnesium Ferritin AST Ammonia Lactate Dehydrogenase C-Reactive Protein Total Protein Albumin Arterial Blood Glucose Arterial Blood Ionized Calcium Urine WBC (Auto) Vancomycin Trough 06/08/21 06/08/21 06/08/21 07:45 12:07 18:02 WBC RBC Hgb Hct MCV MCH MCHC RDW Plt Count Seg Neuts % (Manual) Lymphocytes % (Manual) Nucleated RBC % Seg Neutrophils # Man Lymphocytes # (Manual) D-Dimer ABG pH POC ABG pCO2 POC ABG pO2 ABG pO2 ABG HCO3 ABG Base Excess ABG Hemoglobin ABG Oxyhemoglobin ABG Sodium ABG Potassium ABG Chloride ABG Glucose VBG pH Carboxyhemoglobin Sodium Potassium Chloride Carbon Dioxide BUN Creatinine Glucose POC Glucose 120 H 127 H 148 H Lactic Acid Calcium Phosphorus Magnesium Ferritin AST Ammonia Lactate Dehydrogenase C-Reactive Protein Total Protein Albumin Arterial Blood Glucose Arterial Blood Ionized Calcium Urine WBC (Auto) Vancomycin Trough 06/09/21 06/09/21 06/09/21 05:51 05:51 11:37 WBC 3.9 L RBC 3.38 L Hgb 9.4 L Hct 28.5 L MCV MCH MCHC RDW Plt Count Seg Neuts % (Manual) Lymphocytes % (Manual) Nucleated RBC % Seg Neutrophils # Man Lymphocytes # (Manual) D-Dimer ABG pH POC ABG pCO2 POC ABG pO2 ABG pO2 ABG HCO3 ABG Base Excess ABG Hemoglobin ABG Oxyhemoglobin ABG Sodium ABG Potassium ABG Chloride ABG Glucose VBG pH Carboxyhemoglobin Sodium Potassium Chloride 108.4 H Carbon Dioxide BUN 32 H Creatinine Glucose 137 H POC Glucose 115 H Lactic Acid Calcium 7.5 L Phosphorus Magnesium Ferritin AST 55 H Ammonia Lactate Dehydrogenase C-Reactive Protein 4.10 H Total Protein 5.6 L Albumin 2.0 L Arterial Blood Glucose Arterial Blood Ionized Calcium Urine WBC (Auto) Vancomycin Trough 06/09/21 06/09/21 06/10/21 17:32 22:18 01:52 WBC RBC 3.62 L Hgb 9.9 L Hct 29.8 L MCV 82 L MCH 27 L MCHC RDW Plt Count Seg Neuts % (Manual) Lymphocytes % (Manual) Nucleated RBC % Seg Neutrophils # Man Lymphocytes # (Manual) D-Dimer ABG pH POC ABG pCO2 POC ABG pO2 ABG pO2 ABG HCO3 ABG Base Excess ABG Hemoglobin ABG Oxyhemoglobin ABG Sodium ABG Potassium ABG Chloride ABG Glucose VBG pH Carboxyhemoglobin Sodium Potassium Chloride Carbon Dioxide BUN Creatinine Glucose POC Glucose 113 H 110 H Lactic Acid Calcium Phosphorus Magnesium Ferritin AST Ammonia Lactate Dehydrogenase C-Reactive Protein Total Protein Albumin Arterial Blood Glucose Arterial Blood Ionized Calcium Urine WBC (Auto) Vancomycin Trough 06/10/21 06/10/21 06/10/21 01:52 16:14 22:45 WBC RBC Hgb Hct MCV MCH MCHC RDW Plt Count Seg Neuts % (Manual) Lymphocytes % (Manual) Nucleated RBC % Seg Neutrophils # Man Lymphocytes # (Manual) D-Dimer ABG pH POC ABG pCO2 POC ABG pO2 ABG pO2 ABG HCO3 ABG Base Excess ABG Hemoglobin ABG Oxyhemoglobin ABG Sodium ABG Potassium ABG Chloride ABG Glucose VBG pH Carboxyhemoglobin Sodium Potassium Chloride 108.2 H Carbon Dioxide BUN 32 H Creatinine 1.4 H Glucose POC Glucose 111 H 107 H Lactic Acid Calcium 7.8 L Phosphorus Magnesium Ferritin AST 55 H Ammonia Lactate Dehydrogenase C-Reactive Protein Total Protein 5.6 L Albumin 1.9 L Arterial Blood Glucose Arterial Blood Ionized Calcium Urine WBC (Auto) Vancomycin Trough 06/11/21 06/11/21 06/11/21 05:51 05:51 05:51 WBC RBC 3.35 L Hgb 9.1 L Hct 28.1 L MCV MCH 27 L MCHC RDW Plt Count 117 L Seg Neuts % (Manual) 93.0 H Lymphocytes % (Manual) 1.0 L Nucleated RBC % Seg Neutrophils # Man Lymphocytes # (Manual) 0.0 L D-Dimer ABG pH POC ABG pCO2 POC ABG pO2 ABG pO2 ABG HCO3 ABG Base Excess ABG Hemoglobin ABG Oxyhemoglobin ABG Sodium ABG Potassium ABG Chloride ABG Glucose VBG pH Carboxyhemoglobin Sodium 146 H Potassium Chloride 110.9 H Carbon Dioxide BUN 40 H Creatinine Glucose 119 H POC Glucose Lactic Acid Calcium 7.8 L Phosphorus Magnesium Ferritin AST Ammonia Lactate Dehydrogenase C-Reactive Protein Total Protein Albumin Arterial Blood Glucose Arterial Blood Ionized Calcium Urine WBC (Auto) Vancomycin Trough 22.6 H 06/11/21 06/11/21 06/11/21 08:28 11:36 15:47 WBC RBC Hgb Hct MCV MCH MCHC RDW Plt Count Seg Neuts % (Manual) Lymphocytes % (Manual) Nucleated RBC % Seg Neutrophils # Man Lymphocytes # (Manual) D-Dimer ABG pH POC ABG pCO2 POC ABG pO2 ABG pO2 ABG HCO3 ABG Base Excess ABG Hemoglobin ABG Oxyhemoglobin ABG Sodium ABG Potassium ABG Chloride ABG Glucose VBG pH Carboxyhemoglobin Sodium Potassium Chloride Carbon Dioxide BUN Creatinine Glucose POC Glucose 109 H 149 H 139 H Lactic Acid Calcium Phosphorus Magnesium Ferritin AST Ammonia Lactate Dehydrogenase C-Reactive Protein Total Protein Albumin Arterial Blood Glucose Arterial Blood Ionized Calcium Urine WBC (Auto) Vancomycin Trough 06/11/21 06/12/21 06/12/21 21:42 04:00 04:00 WBC 4.0 L RBC 3.50 L Hgb 9.4 L Hct 29.9 L MCV MCH 27 L MCHC 31 L RDW 15.3 H Plt Count 126 L Seg Neuts % (Manual) Lymphocytes % (Manual) Nucleated RBC % Seg Neutrophils # Man Lymphocytes # (Manual) D-Dimer ABG pH POC ABG pCO2 POC ABG pO2 ABG pO2 ABG HCO3 ABG Base Excess ABG Hemoglobin ABG Oxyhemoglobin ABG Sodium ABG Potassium ABG Chloride ABG Glucose VBG pH Carboxyhemoglobin Sodium 149 H Potassium Chloride 114.1 H Carbon Dioxide BUN 37 H Creatinine Glucose 137 H POC Glucose 124 H Lactic Acid Calcium 8.0 L Phosphorus Magnesium Ferritin AST Ammonia Lactate Dehydrogenase C-Reactive Protein Total Protein Albumin Arterial Blood Glucose Arterial Blood Ionized Calcium Urine WBC (Auto) Vancomycin Trough 06/12/21 06:37 WBC RBC Hgb Hct MCV MCH MCHC RDW Plt Count Seg Neuts % (Manual) Lymphocytes % (Manual) Nucleated RBC % Seg Neutrophils # Man Lymphocytes # (Manual) D-Dimer ABG pH POC ABG pCO2 POC ABG pO2 ABG pO2 ABG HCO3 ABG Base Excess ABG Hemoglobin ABG Oxyhemoglobin ABG Sodium ABG Potassium ABG Chloride ABG Glucose VBG pH Carboxyhemoglobin Sodium Potassium Chloride Carbon Dioxide BUN Creatinine Glucose POC Glucose 128 H Lactic Acid Calcium Phosphorus Magnesium Ferritin AST Ammonia Lactate Dehydrogenase C-Reactive Protein Total Protein Albumin Arterial Blood Glucose Arterial Blood Ionized Calcium Urine WBC (Auto) Vancomycin Trough Chest x-ray: pending Allied health notes reviewed: nursing
--- NOTE | 2021-06-12 13:08 | Progress Note ---
Assessment and Plan Cultures: SARS CoV2 PCR: Positive as outpatient. Negative here x 2 05/23/2021 blood culture: no growth 05/29/2021 blood culture no growth 05/30/2021 blood culture no growth 05/30/2021 urine culture [place] 05/31/2021 blood culture no growth 06/03/2021 blood culture no growth today A/P: 55/M with initially seen on 05/23/2021 due to bilateral pneumonia with positive Covid test outpatient but negative x2 inpatient noted with new fever and repeat CT chest shows bilateral basilar pneumonia with cavitation: #Sepsis: No fever since 06/04/2021. Likely secondary to bilateral pneumonia. #Bilateral pneumonia with cavitation: ? secondary to COVID-19, tested positive as outpatient, but negative here x 2. During the last week noted elevated procalcitonin from 0.3-->24 in the setting of resolving ANGELES. Also noted CRP from 5.2-->19. CT abdomen shows severe aspiration type pneumonia in both bases with a currently 30 lesion of 20 cm on the left lower lobe. #Acute hypoxic respiratory failure: On BiPAP. Likely due to pneumonia. VQ scan low probability for PE. #Recent ileus: Resolved. #Acute renal failure: Nephrology on board. Improving. #Hypernatremia: Per primary team/ renal improving #Tachycardia #Elevated ddimer: VQ low prob for PE Recs: -Taper off of steroid -Procal improving. -Start cefepime and metronidazole -Continue vancomycin -Check MRSA PCR -Given cavitation with likely abscess will plan to treat with IV in house and discharge with PO antibiotics to complete 3 weeks. -Plan to discharge on Augmentin 875/125mg q12h and Bactrim DS q12 G. Aileen Ferguson MD [facility] ([facility] O: [phone] F: [phone] Subjective Date of service: 06/12/21 Principal diagnosis: Acute hypoxemic resp failure; Pneumonia; PUI COVID-19 infection Interval history: Afebrile, white count 4 Imaging personally reviewed: Chest CT: Diffuse groundglass densities with pulmonary edema, bilateral pulmonary infiltrates. Cavitary process in the left lower lung Objective - Exam Narrative Exam: General appearance: Alert on BiPAP Eyes: anicteric sclerae, moist conjunctivae; no lid-lag; PERRLA HENT: Normocephalic, Atraumatic; normal external ears, nares open, oropharynx limited Neck: supple, tracheal midline, no JVD Lungs: Rhonchi CV: RRR no murmur Abdomen: Soft, non-tender; no masses or hepatosplenomegaly Extremities: no edema, no cyanosis Skin: No rash. Psych: no agitated Neuro: alert follows commands - Constitutional Vitals: Vital Signs Temp Pulse Resp BP Pulse Ox 98.4 F 66 42 H 132/71 90 06/11/21 17:43 06/12/21 08:48 06/12/21 08:48 06/11/21 17:43 06/12/21 08:28 Temperature -Last 24 Hours Temperature 98.4 F - Labs CBC & Chem 7: 06/12/21 04:00 06/12/21 04:00 Labs: Abnormal lab results 06/11/21 06/11/21 06/12/21 Range/Units 15:47 21:42 04:00 WBC 4.0 L (4.5-11.0) K/mm3 RBC 3.50 L (3.65-5.03) M/mm3 Hgb 9.4 L (11.8-15.2) gm/dl Hct 29.9 L (35.5-45.6) % MCH 27 L (28-32) pg MCHC 31 L (32-34) % RDW 15.3 H (13.2-15.2) % Plt Count 126 L (140-440) K/mm3 Sodium (137-145) mmol/L Chloride (98-107) mmol/L BUN (9-20) mg/dL Glucose (75-100) mg/dL POC Glucose 139 H 124 H (70-105) mg/dL Calcium (8.4-10.2) mg/dL 06/12/21 06/12/21 Range/Units 04:00 06:37 WBC (4.5-11.0) K/mm3 RBC (3.65-5.03) M/mm3 Hgb (11.8-15.2) gm/dl Hct (35.5-45.6) % MCH (28-32) pg MCHC (32-34) % RDW (13.2-15.2) % Plt Count (140-440) K/mm3 Sodium 149 H (137-145) mmol/L Chloride 114.1 H (98-107) mmol/L BUN 37 H (9-20) mg/dL Glucose 137 H (75-100) mg/dL POC Glucose 128 H (70-105) mg/dL Calcium 8.0 L (8.4-10.2) mg/dL
--- NOTE | 2021-06-12 13:20 | Progress Note ---
Assessment and Plan Impression: * Acute kidney injury secondary to ATN likely related to COVID 19 * Acute hypoxic respiratory failure secondary to COVID 19 PNA * Azotemia * Hyperkalemia * Metabolic acidosis * Hypernatremia Plan: * creatinine is stable 1.2->1.4->1.2->1.1, on D5 1/2NS to encourage renal perfusion * Sodium slightly higher at 146->149, continue free water as above, po hydration if able * off baclofen * agree with Ca repletion * Keep MAP>65 * Management of COVID 19 PNA to primary team/ID * Dose medications for renal function * AM labs * Renal diet * follow up lytes prn * Prognosis guarded Subjective Date of service: 06/12/21 Principal diagnosis: Acute hypoxemic resp failure; Pneumonia; PUI COVID-19 infection Interval history: No acute changes noted, patient resting in bed this AM, on Bipap Objective - Exam Narrative Exam: General appearance: well-developed, appears stated age EENT: ATNC, PERRL Neck: no JVD Respiratory: Present: Clear to Ascultation Cardiology: regular, S1S2 Gastrointestinal: normoactive bowel sounds Integumentary: no rash, warm and dry Neurologic: no focal deficit - Vital Signs Vital signs: Vital Signs - 12hr 06/12/21 06/12/21 06/12/21 03:32 08:28 08:48 Pulse Rate 61 65 Pulse Rate [ 66 Posterior Bilateral Throughout] Respiratory 26 H 40 H Rate Respiratory 42 H Rate [Posterior Bilateral Throughout] O2 Sat by Pulse 99 90 Oximetry - Lab 06/12/21 04:00 06/12/21 04:00 Most recent lab results ABG pH 7.456 (7.320-7.450) H 06/05/21 20:06 ABG pCO2 29.0 mm Hg 05/30/21 22:32 ABG pO2 141.8 mm Hg (80.0-90.0) H 05/30/21 22:32 ABG HCO3 19.9 mmol/L (20.0-26.0) L 05/30/21 22:32 ABG O2 Saturation 98.2 (0-100) 06/05/21 20:06 Calcium 8.0 mg/dL (8.4-10.2) L 06/12/21 04:00 Phosphorus 2.20 mg/dL (2.5-4.5) L D 06/03/21 05:57 Magnesium 2.30 mg/dL (1.7-2.3) 06/06/21 04:35 Medications & Allergies - Medications Allergies/Adverse Reactions: Allergies No Known Allergies Allergy (Unverified 02/12/17 15:47) Home Medications: Home Medications Medication Instructions Recorded Confirmed Last Taken Type No Known Home Medications [No 05/31/21 05/31/21 Unknown History Reported Home Medications] Active Medications: Generic Name Dose Route Start Last Admin Trade Name Freq PRN Reason Stop Dose Admin Acetaminophen 650 mg 05/29/21 07:05 06/03/21 21:32 Acetaminophen 325 Mg Tab PO 650 mg Q6H PRN Administration Pain, Mild (1-3) Acetaminophen 650 mg 06/03/21 08:21 06/03/21 08:42 Acetaminophen 650 Mg Rect Supp [place] 650 mg Q4H PRN Administration Pain, Mild (1-3) Albuterol/Ipratropium 1 ampul 06/07/21 20:00 06/12/21 08:36 Ipratropium/Albuterol Sulfate 3 Ml Ampul.Neb IH 1 ampul TIDRT MIKE Administration Lipase/Protease/Amylase 1 each 06/03/21 12:23 Lipase 10,500/Protease 25,000/Amylase 43,750 (Units) Dr Rodney FEEDTUBE PRN PRN For Clogged Feeding Tube Docusate Sodium 100 mg 06/07/21 10:00 06/12/21 10:18 Docusate Sodium 100 Mg Cap PO Not Given DAILY [facility] Heparin Sodium (Porcine) 5,000 unit 05/24/21 06:00 06/12/21 06:12 Heparin 5,000 Unit/1 Ml Vial SUB-Q 5,000 unit Q8HR MIKE Administration Metronidazole 500 mg in 100 mls @ 100 mls/hr 06/08/21 13:00 06/12/21 05:09 Flagyl 500 Mg/100 Ml IV 06/16/21 05:59 100 mls/hr Q8H MIKE Administration Protocol Cefepime HCl 2 gm in 100 mls @ 200 mls/hr 06/08/21 23:08 06/12/21 06:12 Cefepime/Ns 2 Gm/100 Ml IV 06/16/21 14:29 200 mls/hr Q8HR MIKE Administration Protocol Vancomycin HCl 1 gm in 250 mls @ 166.667 mls/hr 06/12/21 08:00 Vancomycin/Ns 1 Gm/250 Ml IV 06/13/21 09:29 Q24H MIKE Methylprednisolone Sodium Succinate 40 mg 06/08/21 22:00 06/12/21 10:18 Methylprednisolone Sod Succinate 40 Mg/1 Ml Inj IV 40 mg Q12HR MIKE Administration Morphine Sulfate 2 mg 05/23/21 22:01 06/09/21 01:47 Morphine 2 Mg/1 Ml Inj IV 2 mg Q4H PRN Administration Pain, Moderate (4-6) Ondansetron HCl 4 mg 06/04/21 13:41 06/09/21 22:05 Ondansetron 4 Mg/2 Ml Inj IV 4 mg Q4H PRN Administration Nausea And Vomiting Simple Syrup 15 ml 06/03/21 12:23 Simple Syrup 15 Ml FEEDTUBE PRN PRN Hypoglycemia Simple Syrup 30 ml 06/03/21 12:23 Simple Syrup 15 Ml FEEDTUBE PRN PRN Hypoglycemia Sodium Bicarbonate 325 mg 06/03/21 12:23 Sodium Bicarbonate 325 Mg Tab FEEDTUBE PRN PRN For Clogged Feeding Tube Sodium Chloride 10 ml 05/24/21 10:00 06/12/21 10:18 Sodium Chloride 0.9% 10 Ml Flush Syringe IV 10 ml BID MIKE Administration Sodium Chloride 10 ml 05/23/21 22:01 Sodium Chloride 0.9% 10 Ml Flush Syringe IV PRN PRN LINE FLUSH
[2021-06-12] MEDS ORDERED: D5W/0.45% NACL 1,000 ML IV SCH (14:00)
[2021-06-12 18:45] LABS: Total Cells Counted 100
[2021-06-13] MEDS: MORPHINE 2 MG/1 ML INJ IV PRN (00:17)
[2021-06-13] MEDS: metroNIDAZOLE/NS 500 MG/100 ML 500 MG/100 ML BAG IV SCH ×3 (05:08→21:32)
[2021-06-13] MEDS: HEPARIN 5,000 UNIT/1 ML VIAL SUB-Q SCH ×3 (05:12→21:30)
[2021-06-13] MEDS: CEFEPIME/NS 2 GM/100 ML 2 GM/100 ML BAG IV SCH ×3 (06:08→21:07)
[2021-06-13 06:33] LABS: Hematocrit 28.6 % (35.5-45.6); Hemoglobin 9.2 gm/dl (11.8-15.2); Mean Corpuscular HGB Conc 32 % (32-34); Mean Corpuscular Volume 84 fl (84-94); Platelet Count 107 K/mm3 (140-440); Red Blood Count 3.39 M/mm3 (3.65-5.03); Red Cell Distribution Width 15.3 % (13.2-15.2)
[2021-06-13 06:35] LABS: BUN/Creatinine Ratio 32; Blood Urea Nitrogen 38 mg/dL (9-20); Calcium 8.1 mg/dL (8.4-10.2); Hemolysis Index 18
[2021-06-13] MEDS ORDERED: CALCIUM GLUCONATE 2,000 MG in SODIUM CHLORIDE 0.9% 100 ML IV ONE (09:00)
[2021-06-13 10:00] LABS: Band Neutrophils # (Manual) 0.8 K/mm3; Platelet Estimate Consistent w Auto; Total Cells Counted 100
[2021-06-13] MEDS: IPRATROPIUM/ALBUTEROL SULFATE 3 ML AMPUL.NEB IH SCH ×3 (10:50→21:12)
--- NOTE | 2021-06-13 10:59 | Progress Note ---
Assessment and Plan Cultures: SARS CoV2 PCR: Positive as outpatient. Negative here x 2 05/23/2021 blood culture: no growth 05/29/2021 blood culture no growth 05/30/2021 blood culture no growth 05/30/2021 urine culture [place] 05/31/2021 blood culture no growth 06/03/2021 blood culture no growth today A/P: 55/M with initially seen on 05/23/2021 due to bilateral pneumonia with positive Covid test outpatient but negative x2 inpatient noted with new fever and repeat CT chest shows bilateral basilar pneumonia with cavitation: #Sepsis: No fever since 06/04/2021. Likely secondary to bilateral pneumonia. #Bilateral pneumonia with cavitation: ? secondary to COVID-19, tested positive as outpatient, but negative here x 2. During the last week noted elevated procalcitonin from 0.3-->24 in the setting of resolving ANGELES. Also noted CRP from 5.2-->19. CT abdomen shows severe aspiration type pneumonia in both bases with a currently 30 lesion of 20 cm on the left lower lobe. #Acute hypoxic respiratory failure: On BiPAP. Likely due to pneumonia. VQ scan low probability for PE. #Recent ileus: Resolved. #Acute renal failure: Nephrology on board. Improving. #Hypernatremia: Per primary team/ renal improving #Tachycardia #Elevated ddimer: VQ low prob for PE Recs: -Taper off of steroid -Procal improving. -Start cefepime and metronidazole -Continue vancomycin -Follow up MRSA PCR. If negative can stop vancomycin and no need to discahrge with Bactrim. -Given cavitation with likely abscess will plan to treat with IV in house and discharge with PO antibiotics to complete 3 weeks. -Plan to discharge on Augmentin 875/125mg q12h and Bactrim DS q12 G. Aileen Ferguson MD [facility] O: [phone] F: [phone] Subjective Date of service: 06/13/21 Principal diagnosis: Acute hypoxemic resp failure; Pneumonia; PUI COVID-19 infection Interval history: Afebrile, white count remains mildly low. Objective - Exam Narrative Exam: General appearance: Alert on BiPAP Eyes: anicteric sclerae, moist conjunctivae; no lid-lag; PERRLA HENT: Normocephalic, Atraumatic; normal external ears, nares open, oropharynx limited Neck: supple, tracheal midline, no JVD Lungs: Rhonchi CV: RRR no murmur Abdomen: Soft, non-tender; no masses or hepatosplenomegaly Extremities: no edema, no cyanosis Skin: No rash. Psych: no agitated Neuro: alert follows commands - Constitutional Vitals: Vital Signs Temp Pulse Resp BP Pulse Ox 98.2 F 77 22 138/79 98 06/13/21 05:46 06/13/21 05:46 06/13/21 05:46 06/13/21 05:46 06/13/21 05:46 Temperature -Last 24 Hours Temperature 98.2 F Temperature 98.3 F - Labs CBC & Chem 7: 06/13/21 06:05 06/13/21 06:05 Labs: Abnormal lab results 06/12/21 06/13/21 06/13/21 Range/Units 04:00 00:14 06:05 WBC 4.3 L (4.5-11.0) K/mm3 RBC 3.39 L (3.65-5.03) M/mm3 Hgb 9.2 L (11.8-15.2) gm/dl Hct 28.6 L (35.5-45.6) % MCH 27 L (28-32) pg RDW 15.3 H (13.2-15.2) % Plt Count 107 L (140-440) K/mm3 Seg Neuts % (Manual) 88.0 H 77.0 H (40.0-70.0) % Lymphocytes % (Manual) 1.0 L (13.4-35.0) % Monocytes % (Manual) 12.0 H (0.0-7.3) % Nucleated RBC % 1.0 H (0.0-0.9) % Lymphocytes # (Manual) 0.0 L 0.0 L (1.2-5.4) K/mm3 Sodium (137-145) mmol/L Potassium (3.6-5.0) mmol/L Chloride (98-107) mmol/L BUN (9-20) mg/dL Glucose (75-100) mg/dL POC Glucose 149 H (70-105) mg/dL Calcium (8.4-10.2) mg/dL 06/13/21 Range/Units 06:05 WBC (4.5-11.0) K/mm3 RBC (3.65-5.03) M/mm3 Hgb (11.8-15.2) gm/dl Hct (35.5-45.6) % MCH (28-32) pg RDW (13.2-15.2) % Plt Count (140-440) K/mm3 Seg Neuts % (Manual) (40.0-70.0) % Lymphocytes % (Manual) (13.4-35.0) % Monocytes % (Manual) (0.0-7.3) % Nucleated RBC % (0.0-0.9) % Lymphocytes # (Manual) (1.2-5.4) K/mm3 Sodium 146 H (137-145) mmol/L Potassium 3.5 L (3.6-5.0) mmol/L Chloride 112.3 H (98-107) mmol/L BUN 38 H (9-20) mg/dL Glucose 112 H (75-100) mg/dL POC Glucose (70-105) mg/dL Calcium 8.1 L (8.4-10.2) mg/dL
[2021-06-13] MEDS ORDERED: LORazepam 2 MG/ML VIAL ONE (11:37)
[2021-06-13] MEDS ORDERED: LORazepam 2 MG/ML VIAL IV ONE (11:52)
--- NOTE | 2021-06-13 12:23 | XRay Report ---
CHEST 1 VIEW 06/13/2021 11:50 AM INDICATION / CLINICAL INFORMATION: respiratory distress. COMPARISON: 06/09/21. Chest CT dated 06/12/21 FINDINGS: SUPPORT DEVICES: None. HEART / MEDIASTINUM: Stable. LUNGS / PLEURA: No change in diffuse bilateral pulmonary opacities or cavitary area in the left lung base. No pneumothorax. ADDITIONAL FINDINGS: No significant additional findings. IMPRESSION: 1. No change in extensive bilateral pulmonary opacities. Findings could represent atypical pneumonia versus ARDS. Signer Name: Nolvia Mercedes MD Signed: 06/13/2021 12:19 PM Workstation Name: [id number]
[2021-06-13] MEDS: methylPREDNISolone Sod Succinate 40 MG/1 ML INJ IV SCH ×2 (12:46→21:29)
--- NOTE | 2021-06-13 13:51 | Progress Note ---
Assessment and Plan Assessment and plan: #Acute hypoxic respiratory failure- worsening -Currently on BiPAP, will maintain SpO2 >90% -VQ scan low probability for PE on admission -Weaning down methylprednisone from 40mg to 30mg daily. Will continue to taper per ID recs -s/p 1 dose of Lasix -TTE 06/06: LVEF 55 to 60%, no valvular or chamber abnormalities -Pulmonary consulted, recommendations appreciated -patient continues to deteriorate will possibly need bronchoscopy to address the cavitary lesion; will refer to Pulmonology recs -Obtained consent from brother (Madhu Pittman) for placement of picc line for TPN. Updated (06/13/2021) on worsening condition of patient. Patient will remain full code. #COVID-19 pneumonia #Left lower lobe cavititation #Left lower lobe abscess -CT abdomen pelvis revealed severe bilateral pneumonia and a cavitary lesion in the left lower lobe -likely secondary to aspiration during ileus -CT chest (06/12/2021) revealing cavitary lesion in LLL approximately 5x6cm and diffusse ground-glass opacities consistent with COVID-19 infection (prior) -CRP 19.6 and procal 24.30, repeat pending -continue vancomycin, cefepime and flagyl per ID recommendations -will reorder MRSA PCR; if negative, will discontinue vancomycin -ID plans to treat abscess for a total of 3 weeks (IV while inpatient and po upon discharge). Would be discharged with Augmentin 875/125mg q12hrs (total 3 week course ends on 06/29/2021. -completed azithromycin and Rocephin in past #Severe sepsis- improving -repeat blood cultures no growth to date -procalcitonin 24.30, repeat pending -continue vancomycin, cefepime and flagyl -s/p zosyn -likely 2/2 to PNA #Hypocalcemia -Calcium 7.8 -Repleted; continue to monitor #COVID-19 infection -Diagnosed on 05/11 -s/p 10 days of steroids, restarted on 06/04 due to worsening Pulmonary status -Tapering steroids per ID recommendations #[id number]-[id number] secondary to poor oral intake #Acute encephalopathy-Resolved #ANGELES, resolved #Hyperkalemia, resolved #Ileus-resolved #Lactic acidosis-resolved #Discharge planning -Patient and family agreed to the home with home health upon discharge -will continue to wean oxygen to at least 4 L/min prior to discharge Disposition Plan: Pending IMCU transfer for worsening respiratory status Total Time Spent with Patient (Minutes): 60 History Interval history: patient has continued to require 100% FiO2 on BiPAP and saturations ranging between 85-92. Hospitalist Physical - Constitutional Vitals: Temp Pulse Resp BP Pulse Ox 98.2 F 77 22 138/79 98 06/13/21 05:46 06/13/21 05:46 06/13/21 05:46 06/13/21 05:46 06/13/21 05:46 General appearance: Present: mild distress, cachectic - EENT Eyes: Present: PERRL, EOM intact ENT: hearing intact, clear oral mucosa - Neck Neck: Present: supple, normal ROM - Respiratory Respiratory effort: labored, accessory muscle use Respiratory: bilateral: diminished, rhonchi, negative: rales, wheezing Details: Currently wearing BiPAP with FiO2 100% - Cardiovascular Rhythm: regular Heart Sounds: Present: S1 & S2 - Extremities Extremities: no ischemia, pulses intact, pulses symmetrical, No edema, normal temperature, normal color Peripheral Pulses: within normal limits - Abdominal General gastrointestinal: soft, non-tender, non-distended, normal bowel sounds - Integumentary Integumentary: Present: clear, warm, dry - Psychiatric Psychiatric: appropriate mood/affect, memory intact, cooperative, other (Alt ered; AAOx2) - Neurologic Neurologic: CNII-XII intact, moves all extremities - Allied Health Allied health notes reviewed: nursing HEART Score - HEART Score EKG: Non-specific Age: 45-65 Risk factors: 1-2 risk factors Troponin: Troponin T < 0.010 ng/mL (0.00-0.029) 05/23/21 18:48 - Critical Actions Critical Actions: 0-3 pts:0.9-1.7%risk of adverse cardiac event.Candidate for discharge Results - Labs CBC & Chem 7: 06/13/21 06:05 06/13/21 06:05 Labs: Laboratory Last Values WBC 4.3 K/mm3 (4.5-11.0) L 06/13/21 06:05 RBC 3.39 M/mm3 (3.65-5.03) L 06/13/21 06:05 Hgb 9.2 gm/dl (11.8-15.2) L 06/13/21 06:05 Hct 28.6 % (35.5-45.6) L 06/13/21 06:05 MCV 84 fl (84-94) 06/13/21 06:05 MCH 27 pg (28-32) L 06/13/21 06:05 MCHC 32 % (32-34) 06/13/21 06:05 RDW 15.3 % (13.2-15.2) H 06/13/21 06:05 Plt Count 107 K/mm3 (140-440) L 06/13/21 06:05 Lymph % (Auto) Harp Maker 06/01/21 07:10 Becker % (Auto) Harp Maker 06/01/21 07:10 Eos % (Auto) Harp Maker 06/01/21 07:10 Baso % (Auto) Harp Maker 06/01/21 07:10 Lymph # (Auto) Harp Maker 06/01/21 07:10 Becker # (Auto) Harp Maker 06/01/21 07:10 Eos # (Auto) Harp Maker 06/01/21 07:10 Baso # (Auto) Harp Maker 06/01/21 07:10 Add Manual Diff Complete 06/13/21 06:05 Total Counted 100 06/13/21 06:05 Seg Neutrophils % Harp Maker 06/13/21 06:05 Seg Neuts % (Manual) 77.0 % (40.0-70.0) H 06/13/21 06:05 Band Neutrophils % 18.0 % 06/13/21 06:05 Lymphocytes % (Manual) 1.0 % (13.4-35.0) L 06/13/21 06:05 Reactive Lymphs % (Man) 1.0 % 06/01/21 07:10 Monocytes % (Manual) 3.0 % (0.0-7.3) 06/13/21 06:05 Myelocytes % 1.0 % 06/13/21 06:05 Nucleated RBC % 1.0 % (0.0-0.9) H 06/13/21 06:05 Seg Neutrophils # Harp Maker 06/01/21 07:10 Seg Neutrophils # Man 3.3 K/mm3 (1.8-7.7) 06/13/21 06:05 Band Neutrophils # 0.8 K/mm3 06/13/21 06:05 Lymphocytes # (Manual) 0.0 K/mm3 (1.2-5.4) L 06/13/21 06:05 Abs React Lymphs (Man) 0.0 K/mm3 06/13/21 06:05 Monocytes # (Manual) 0.1 K/mm3 (0.0-0.8) 06/13/21 06:05 Eosinophils # (Manual) 0.0 K/mm3 (0.0-0.4) 06/13/21 06:05 Basophils # (Manual) 0.0 K/mm3 (0.0-0.1) 06/13/21 06:05 Metamyelocytes # 0.0 K/mm3 06/13/21 06:05 Myelocytes # 0.0 K/mm3 06/13/21 06:05 Promyelocytes # 0.0 K/mm3 06/13/21 06:05 Blast Cells # 0.0 K/mm3 06/13/21 06:05 WBC Morphology Not Reportable 06/13/21 06:05 Hypersegmented Neuts Not Reportable 06/13/21 06:05 Hyposegmented Neuts Not Reportable 06/13/21 06:05 Hypogranular Neuts Not Reportable 06/13/21 06:05 Smudge Cells Not Reportable 06/13/21 06:05 Toxic Granulation Not Reportable 06/13/21 06:05 Toxic Vacuolation Not Reportable 06/13/21 06:05 Dohle Bodies Not Reportable 06/13/21 06:05 Pelger-Huet Anomaly Not Reportable 06/13/21 06:05 Kaci Rods Not Reportable 06/13/21 06:05 Platelet Estimate Consistent w auto 06/13/21 06:05 Clumped Platelets Not Reportable 06/13/21 06:05 Plt Clumps, EDTA Not Reportable 06/13/21 06:05 Large Platelets Not Reportable 06/13/21 06:05 Giant Platelets Not Reportable 06/13/21 06:05 Platelet Satelliting Not Reportable 06/13/21 06:05 Plt Morphology Comment Not Reportable 06/13/21 06:05 RBC Morphology Not Reportable 06/13/21 06:05 Dimorphic RBCs Not Reportable 06/13/21 06:05 Polychromasia Not Reportable 06/13/21 06:05 Hypochromasia Not Reportable 06/13/21 06:05 Poikilocytosis Not Reportable 06/13/21 06:05 Anisocytosis Not Reportable 06/13/21 06:05 Microcytosis Not Reportable 06/13/21 06:05 Macrocytosis Not Reportable 06/13/21 06:05 Spherocytes Not Reportable 06/13/21 06:05 Pappenheimer Bodies Not Reportable 06/13/21 06:05 Sickle Cells Not Reportable 06/13/21 06:05 Target Cells Not Reportable 06/13/21 06:05 Tear Drop Cells Not Reportable 06/13/21 06:05 Ovalocytes Not Reportable 06/13/21 06:05 Helmet Cells Not Reportable 06/13/21 06:05 [place] Bodies Not Reportable 06/13/21 06:05 [place] Rings Not Reportable 06/13/21 06:05 [place] Cells Not Reportable 06/13/21 06:05 Bite Cells Not Reportable 06/13/21 06:05 Crenated Cell Not Reportable 06/13/21 06:05 Elliptocytes Not Reportable 06/13/21 06:05 Acanthocytes (Spur) Not Reportable 06/13/21 06:05 Rouleaux Not Reportable 06/13/21 06:05 Hemoglobin C Crystals Not Reportable 06/13/21 06:05 Schistocytes Not Reportable 06/13/21 06:05 Malaria parasites Not Reportable 06/13/21 06:05 Dick Bodies Not Reportable 06/13/21 06:05 Hem Pathologist Commnt No 06/13/21 06:05 D-Dimer 3584.01 ng/mlDDU (0-234) H 05/27/21 08:09 ABG pH 7.408 (7.320-7.450) 06/13/21 11:51 POC ABG pCO2 42.7 mmHg (32.0-48.0) 06/13/21 11:51 ABG pCO2 29.0 mm Hg 05/30/21 22:32 POC ABG pO2 48.3 mmHg (83-108) L 06/13/21 11:51 ABG pO2 141.8 mm Hg (80.0-90.0) H 05/30/21 22:32 POC ABG HCO3 26.3 06/13/21 11:51 ABG HCO3 19.9 mmol/L (20.0-26.0) L 05/30/21 22:32 ABG O2 Saturation 84.9 (0-100) 06/13/21 11:51 ABG O2 Content 19.9 (0.0-44) 05/30/21 22:32 POC ABG Base Excess 1.5 06/13/21 11:51 ABG Base Excess -2.7 mmol/L (-2.0-3.0) L 05/30/21 22:32 ABG Hemoglobin 10.7 (12.0-17.5) L 06/13/21 11:51 ABG Oxyhemoglobin 84.1 (94-98) L 06/13/21 11:51 ABG Carboxyhemoglobin 1.1 % (0.0-5.0) 05/30/21 22:32 ABG Methemoglobin 0.3 (0.0-1.5) 06/13/21 11:51 ABG Sodium 145.5 mmol/L (136.0-145.0) H 06/13/21 11:51 ABG Potassium 3.5 mmol/L (3.40-4.50) 06/13/21 11:51 ABG Chloride 116.0 mmol/L (98-107) H 06/13/21 11:51 ABG Glucose 87 mg/dL (65-95) 06/13/21 11:51 VBG pH 7.254 (7.320-7.420) L 05/24/21 02:09 Oxyhemoglobin 97.1 % (95.0-99.0) 05/30/21 22:32 Carboxyhemoglobin 0.7 (0.5-1.5) 06/13/21 11:51 FiO2 70 % 05/30/21 22:32 FiO2 % 100 06/13/21 11:51 Sodium 146 mmol/L (137-145) H 06/13/21 06:05 Potassium 3.5 mmol/L (3.6-5.0) L 06/13/21 06:05 Chloride 112.3 mmol/L (98-107) H 06/13/21 06:05 Carbon Dioxide 24 mmol/L (22-30) 06/13/21 06:05 Anion Gap 13 mmol/L 06/13/21 06:05 BUN 38 mg/dL (9-20) H 06/13/21 06:05 Creatinine 1.2 mg/dL (0.8-1.3) 06/13/21 06:05 Estimated GFR > 60 ml/min 06/13/21 06:05 BUN/Creatinine Ratio 32 % 06/13/21 06:05 Glucose 112 mg/dL (75-100) H 06/13/21 06:05 POC Glucose 74 mg/dL (70-105) 06/13/21 12:21 Lactic Acid 1.20 mmol/L (0.7-2.0) 06/06/21 00:04 Calcium 8.1 mg/dL (8.4-10.2) L 06/13/21 06:05 Phosphorus 2.20 mg/dL (2.5-4.5) L D 06/03/21 05:57 Magnesium 2.30 mg/dL (1.7-2.3) 06/06/21 04:35 Ferritin 2742.0 ng/mL (30.0-300.0) H 05/27/21 08:09 Total Bilirubin 0.40 mg/dL (0.1-1.2) 06/10/21 01:52 AST 55 units/L (5-40) H 06/10/21 01:52 ALT 21 units/L (7-56) 06/10/21 01:52 Alkaline Phosphatase 88 units/L (35-129) 06/10/21 01:52 Ammonia 22.0 umol/L (25-60) L 05/23/21 18:48 Lactate Dehydrogenase 642 units/L (91-180) H 05/27/21 08:09 Troponin T < 0.010 ng/mL (0.00-0.029) 05/23/21 18:48 C-Reactive Protein 4.10 mg/dL (0.00-1.30) H 06/09/21 05:51 Total Protein 5.6 g/dL (6.3-8.2) L 06/10/21 01:52 Albumin 1.9 g/dL (3.9-5) L 06/10/21 01:52 Albumin/Globulin Ratio 0.5 % 06/10/21 01:52 Procalcitonin 7.52 ng/mL (<0.15) 06/09/21 05:51 TSH 1.150 mlU/mL (0.270-4.200) 05/23/21 18:48 Arterial Blood Glucose 87 mg/dL (65-95) 06/13/21 11:51 Arterial Blood Ionized Calcium 4.5 mg/dL (4.6-5.3) L 05/29/21 17:58 Urine Color Eli (Yellow) 05/30/21 01:00 Urine Turbidity Cloudy (Clear) 05/30/21 01:00 Urine pH 5.0 (5.0-7.0) 05/30/21 01:00 Ur Specific [place] 1.019 (1.003-1.030) 05/30/21 01:00 Urine Protein 100 mg/dl mg/dL (Negative) 05/30/21 01:00 Urine Glucose (UA) Neg mg/dL (Negative) 05/30/21 01:00 Urine Ketones Neg mg/dL (Negative) 05/30/21 01:00 Urine Blood Mod (Negative) 05/30/21 01:00 Urine Nitrite Neg (Negative) 05/30/21 01:00 Urine Bilirubin Neg (Negative) 05/30/21 01:00 Urine Urobilinogen 4.0 mg/dL (<2.0) 05/30/21 01:00 Ur Leukocyte Esterase Neg (Negative) 05/30/21 01:00 Urine WBC (Auto) 12.0 /HPF (0.0-6.0) H 05/30/21 01:00 Urine RBC (Auto) 21.0 /HPF (0.0-6.0) 05/30/21 01:00 U Epithel Cells (Auto) 2.0 /HPF (0-13.0) 05/30/21 01:00 Uric Acid Crystals Few 05/30/21 01:00 Urine Mucus Few /HPF 05/30/21 01:00 Urine Yeast (Budding) 2+ /HPF 05/30/21 01:00 Vancomycin Trough 22.6 ug/mL (5.0-20.0) H 06/11/21 05:51 Plasma/Serum Alcohol < 0.01 % (0-0.07) 05/23/21 18:48 Proteinase 3 (PR3) Ab <1.0 AI (<1.0) 05/24/21 20:57 Myeloperoxidase Ab <1.0 AI (<1.0) 05/24/21 20:57 Complement C3 108 mg/dL (82-185) 05/24/21 20:57 Complement C4 29 mg/dL (15-53) 05/24/21 20:57 Coronavirus (PCR) Negative (Negative) 05/26/21 08:41 Blood Type A POSITIVE 05/29/21 08:15 Antibody Screen Negative 05/29/21 08:15 Heart/IV: Voiding Method Condom Catheter Active Medications - Current Medications Current Medications: Generic Name Dose Route Start Last Admin Trade Name Freq PRN Reason Stop Dose Admin Acetaminophen 650 mg 05/29/21 07:05 06/03/21 21:32 Acetaminophen 325 Mg Tab PO 650 mg Q6H PRN Administration Pain, Mild (1-3) Acetaminophen 650 mg 06/03/21 08:21 06/03/21 08:42 Acetaminophen 650 Mg Rect Supp [place] 650 mg Q4H PRN Administration Pain, Mild (1-3) Albuterol/Ipratropium 1 ampul 06/07/21 20:00 06/13/21 10:50 Ipratropium/Albuterol Sulfate 3 Ml Ampul.Neb IH 1 ampul TIDRT MIKE Administration Lipase/Protease/Amylase 1 each 06/03/21 12:23 Lipase 10,500/Protease 25,000/Amylase 43,750 (Units) Dr Rodney FEEDTUBE PRN PRN For Clogged Feeding Tube Docusate Sodium 100 mg 06/07/21 10:00 06/12/21 10:18 Docusate Sodium 100 Mg Cap PO Not Given DAILY [facility] Heparin Sodium (Porcine) 5,000 unit 05/24/21 06:00 06/13/21 05:12 Heparin 5,000 Unit/1 Ml Vial SUB-Q 5,000 unit Q8HR MIKE Administration Metronidazole 500 mg in 100 mls @ 100 mls/hr 06/08/21 13:00 06/13/21 05:08 Flagyl 500 Mg/100 Ml IV 100 mls/hr Q8H MIKE Administration Protocol Cefepime HCl 2 gm in 100 mls @ 200 mls/hr 06/08/21 23:08 06/13/21 06:08 Cefepime/Ns 2 Gm/100 Ml IV 200 mls/hr Q8HR MIKE Administration Protocol Vancomycin HCl 1 gm in 250 mls @ 166.667 mls/hr 06/12/21 08:00 06/12/21 08:00 Vancomycin/Ns 1 Gm/250 Ml IV Not Given Q24H MIKE Dextrose 1,000 mls @ 75 mls/hr 06/13/21 07:00 D5w IV DIRECT MIKE Methylprednisolone Sodium Succinate 40 mg 06/08/21 22:00 06/13/21 12:46 Methylprednisolone Sod Succinate 40 Mg/1 Ml Inj IV 40 mg Q12HR MIKE Administration Morphine Sulfate 2 mg 05/23/21 22:01 06/13/21 00:17 Morphine 2 Mg/1 Ml Inj IV 2 mg Q4H PRN Administration Pain, Moderate (4-6) Ondansetron HCl 4 mg 06/04/21 13:41 06/09/21 22:05 Ondansetron 4 Mg/2 Ml Inj IV 4 mg Q4H PRN Administration Nausea And Vomiting Simple Syrup 15 ml 06/03/21 12:23 Simple Syrup 15 Ml FEEDTUBE PRN PRN Hypoglycemia Simple Syrup 30 ml 06/03/21 12:23 Simple Syrup 15 Ml FEEDTUBE PRN PRN Hypoglycemia Sodium Bicarbonate 325 mg 06/03/21 12:23 Sodium Bicarbonate 325 Mg Tab FEEDTUBE PRN PRN For Clogged Feeding Tube Sodium Chloride 10 ml 05/24/21 10:00 06/12/21 21:56 Sodium Chloride 0.9% 10 Ml Flush Syringe IV 10 ml BID MIKE Administration Sodium Chloride 10 ml 05/23/21 22:01 Sodium Chloride 0.9% 10 Ml Flush Syringe IV PRN PRN LINE FLUSH Nutrition/Malnutrition Assess - Dietary Evaluation Nutrition/Malnutrition Findings: Nutrition Notes Start: 05/25/21 09:33 Freq: Status: Active Protocol: Document 06/09/21 17:54 GB (Rec: 06/09/21 18:04 GB [id number]) Nutrition Notes Initial or Follow up Reassessment Current Diagnosis Sepsis Other Pertinent Diagnosis COVID-19 (+), pneu, ?ileus Current Diet Mechanical soft with thin liquids Labs/Tests 06/09: BUN 32, glucose 137, Ca 7.5, AST 55 Pertinent Medications D5 @ 75ml/hr (306kcal), heparinNa, NaCl, vancomycin Height 5 ft 11 in Weight 63 kg [place] Body Weight (kg) 78.18 BMI 19.3 Weight change and time frame 05/24: 77.111kg 06/08: 63kg Change of -14.111kg for -18.2% over 3 weeks r/t COVID+ complications Weight Status Appropriate Subjective/Other Information Diet advanced to mechancial soft with thin liquids. Per chart: diet tolerated well. Family agrees to home with home health. Percent of energy/protein needs met: PO intake of meals at 50% or greater meets 75% of estimated energy needs. Burn Absent Trauma Absent GI Symptoms Vomiting,Constipation Food Allergy No Skin Integrity/Comment No complications reported Current % PO Good (75-100%) Minimum of two criteria No #1 Nutrition Diagnosis Inadequate oral intake Comments: Nutritional supplement beverage ordered 06/03: TF ordered 06/09: diet advanced to mechanical soft, thin liquids. Tolerating well Etiology acute illness As Evidenced by Signs and Symptoms decreased PO for 10-12 days [employer] 06/03: TF required to meet needs. 06/09: Diet advanced on 06/07 Diagnosis Progress(for reassessment Resolved documentation) Is patient on ventilator? No Is Patient Ambulatory and/or Out of Bed No REE-([facility]-confined to bed) 1789.080 Kcal/Kg value to use for calculation 25 Approximate Energy Requirements Using 1575 kcal/Kg Calculation Used for Recommendations Kcal/kg Additional Notes Pro needs 1-1.5g/kg @63k- 95g/day Fluid needs 1ml/kcal Nutrition Intervention Change Diet Order: continue Nutrition Support: n/a Goal #1 PO intake of meals to be 50% or greater TID daily for LOS Goal #2 Weight to maintain within +/-3 % current weight for LOS 06/09: weight change r/t COVID+ at -18% Anticipated Discharge Needs: home with home health Follow-Up By: 06/16/21 Additional Comments F/U: PO intake, weight
--- NOTE | 2021-06-13 14:06 | Progress Note ---
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 - continue NIV scheduled qhs with prn daytime use - continue aspiration precautions - continue care as below otherwise; - continue anti-infective's per ID rec's - continue to wean supplemental oxygen for target O2 sat's > 90% acutely - bronchodilators with pulmonary hygiene per RT - continue accuchecks with glycemic control per SSI (While critically ill target blood glucose of 140-180 mg/dL; avoid hypoglycemia) - avoid nephrotoxins, renally dose all medications - continue to avoid benzodiazepine's, reduce the possibility of delirium - prn analgesia per pain score - Maintenance of sleep-wake cycle, avoid delirium - G.I. & VTE prophylaxis - PT/OT/ROM exercises - mobility protocols for pressure ulcer prophylaxis - Monitor hemodynamics closely - continue other care per attending / other consultants - discharge planning ongoing concurrently COVID SPECIFIC INTERVENTIONS - repeat COVID-19 test result negative .... Re-evaluate in am & prn CONDITION: CRITICAL PROGNOSIS: GUARDED CODE STATUS: FULL CODE The high probability of a clinically significant, sudden or life-threatening deterioration of the [respiratory, GI, renal & cardiovascular] system(s) required my full and direct attention, intervention and personal management. The aggregate critical care time was [33] minutes without overlap. Time includes spent on; [x] Data Review and interpretation [x] Patient assessment and monitoring of vital signs [x] Documentation [x] Medication orders and management Subjective Date of service: 06/13/21 Principal diagnosis: Acute hypoxemic resp failure; Pneumonia; PUI COVID-19 infection Interval history: Patient is seen today for: Acute hypoxemic respiratory failure; Bilateral pneumonia; Suspected 2019 novel coronavirus infection Seen and examined at bedside; 24hour events reviewed; nursing and respiratory care staff consulted; no adverse overnight events reported to me; resting in bed; remains on supplemental oxygen at 100% FiO2; calm; denies acute chest pain; poor appetite; tolerating NIV qhs with prn daytime usage Objective Vital Signs - 12hr 06/13/21 06/13/21 06/13/21 02:26 02:27 05:46 Temperature 98.2 F Pulse Rate 75 77 Respiratory 27 H 22 Rate Blood Pressure 138/79 O2 Sat by Pulse 100 100 98 Oximetry Constitutional: no acute distress, other (middle aged male with mildly increased respiratory effort at rest on BIPAP) Eyes: non-icteric ENT: oropharynx moist, other (BIPAP FFM) Neck: supple, no JVD Effort: mildly labored Ascultation: Bilateral: diminished breath sounds (bases), rhonchi Percussion: Bilateral: not dull Cardiovascular: regular rate and rhythm Gastrointestinal: hypoactive bowel sounds, soft, non-tender, other (distended but very soft) Integumentary: normal Extremities: no cyanosis, no edema, pulses normal, no ischemia or petechiae Neurologic: pupils equal and round, CN II-XII normal, other (somnolent) Psychiatric: other (flat affect) CBC and BMP: 06/18/21 Unknown 06/18/21 Unknown ABG, PT/INR, D-dimer: ABG ABG pH 7.408 (7.320-7.450) 06/13/21 11:51 POC ABG pCO2 42.7 mmHg (32.0-48.0) 06/13/21 11:51 ABG pCO2 29.0 mm Hg 05/30/21 22:32 POC ABG pO2 48.3 mmHg (83-108) L 06/13/21 11:51 ABG pO2 141.8 mm Hg (80.0-90.0) H 05/30/21 22:32 POC ABG HCO3 26.3 06/13/21 11:51 ABG O2 Saturation 84.9 (0-100) 06/13/21 11:51 PT/INR, D-dimer D-Dimer 3584.01 ng/mlDDU (0-234) H 05/27/21 08:09 Abnormal lab findings: Abnormal Labs 05/23/21 05/23/21 05/23/21 18:48 18:48 18:48 WBC 11.8 H RBC 5.18 H Hgb Hct MCV MCH MCHC RDW Plt Count Seg Neuts % (Manual) 84.0 H Lymphocytes % (Manual) Monocytes % (Manual) Nucleated RBC % Seg Neutrophils # Man 9.9 H Lymphocytes # (Manual) D-Dimer > 31545 H ABG pH POC ABG pCO2 POC ABG pO2 ABG pO2 ABG HCO3 ABG Base Excess ABG Hemoglobin ABG Oxyhemoglobin ABG Sodium ABG Potassium ABG Chloride ABG Glucose VBG pH Carboxyhemoglobin Sodium Potassium Chloride Carbon Dioxide BUN Creatinine Glucose POC Glucose Lactic Acid 2.30 H* Calcium Phosphorus Magnesium Ferritin AST Ammonia Lactate Dehydrogenase C-Reactive Protein Total Protein Albumin Arterial Blood Glucose Arterial Blood Ionized Calcium Urine WBC (Auto) Vancomycin Trough 05/23/21 05/23/21 05/23/21 18:48 18:48 18:48 WBC RBC Hgb Hct MCV MCH MCHC RDW Plt Count Seg Neuts % (Manual) Lymphocytes % (Manual) Monocytes % (Manual) Nucleated RBC % Seg Neutrophils # Man Lymphocytes # (Manual) D-Dimer ABG pH POC ABG pCO2 POC ABG pO2 ABG pO2 ABG HCO3 ABG Base Excess ABG Hemoglobin ABG Oxyhemoglobin ABG Sodium ABG Potassium ABG Chloride ABG Glucose VBG pH Carboxyhemoglobin Sodium 151 H Potassium 5.1 H Chloride 113.2 H Carbon Dioxide 17 L BUN 180 H Creatinine 4.3 H Glucose 114 H POC Glucose Lactic Acid Calcium Phosphorus Magnesium Ferritin 2000.0 H AST Ammonia 22.0 L Lactate Dehydrogenase 577 H C-Reactive Protein 8.80 H Total Protein 9.4 H Albumin 3.0 L Arterial Blood Glucose Arterial Blood Ionized Calcium Urine WBC (Auto) Vancomycin Trough 05/23/21 05/24/21 05/24/21 21:06 02:09 02:09 WBC RBC Hgb Hct MCV MCH MCHC RDW Plt Count Seg Neuts % (Manual) Lymphocytes % (Manual) Monocytes % (Manual) Nucleated RBC % Seg Neutrophils # Man Lymphocytes # (Manual) D-Dimer ABG pH POC ABG pCO2 POC ABG pO2 ABG pO2 ABG HCO3 ABG Base Excess ABG Hemoglobin ABG Oxyhemoglobin ABG Sodium ABG Potassium ABG Chloride ABG Glucose VBG pH 7.254 L Carboxyhemoglobin Sodium Potassium Chloride Carbon Dioxide BUN Creatinine Glucose POC Glucose Lactic Acid 2.10 H* 2.30 H* Calcium Phosphorus Magnesium Ferritin AST Ammonia Lactate Dehydrogenase C-Reactive Protein Total Protein Albumin Arterial Blood Glucose Arterial Blood Ionized Calcium Urine WBC (Auto) Vancomycin Trough 05/24/21 05/24/21 05/24/21 13:11 17:34 18:12 WBC RBC Hgb Hct MCV MCH MCHC RDW Plt Count Seg Neuts % (Manual) Lymphocytes % (Manual) Monocytes % (Manual) Nucleated RBC % Seg Neutrophils # Man Lymphocytes # (Manual) D-Dimer ABG pH POC ABG pCO2 POC ABG pO2 ABG pO2 ABG HCO3 ABG Base Excess ABG Hemoglobin ABG Oxyhemoglobin ABG Sodium ABG Potassium ABG Chloride ABG Glucose VBG pH Carboxyhemoglobin Sodium 155 H Potassium 6.9 H* D 5.7 H Chloride 121.9 H Carbon Dioxide 20 L BUN 139 H Creatinine 2.7 H Glucose 139 H POC Glucose 153 H Lactic Acid Calcium Phosphorus Magnesium Ferritin AST Ammonia Lactate Dehydrogenase C-Reactive Protein Total Protein Albumin Arterial Blood Glucose Arterial Blood Ionized Calcium Urine WBC (Auto) Vancomycin Trough 05/25/21 05/25/21 05/26/21 11:33 11:33 03:15 WBC 13.8 H RBC 5.06 H Hgb Hct MCV MCH MCHC RDW Plt Count Seg Neuts % (Manual) Lymphocytes % (Manual) Monocytes % (Manual) Nucleated RBC % Seg Neutrophils # Man Lymphocytes # (Manual) D-Dimer ABG pH POC ABG pCO2 POC ABG pO2 ABG pO2 ABG HCO3 ABG Base Excess ABG Hemoglobin ABG Oxyhemoglobin ABG Sodium ABG Potassium ABG Chloride ABG Glucose VBG pH Carboxyhemoglobin Sodium 164 H* D 166 H* Potassium 5.4 H 5.5 H Chloride 131.3 H 129.2 H Carbon Dioxide BUN 109 H 102 H Creatinine 1.9 H 1.8 H Glucose 117 H 113 H POC Glucose Lactic Acid Calcium Phosphorus Magnesium Ferritin AST Ammonia Lactate Dehydrogenase 711 H C-Reactive Protein 7.90 H Total Protein Albumin Arterial Blood Glucose Arterial Blood Ionized Calcium Urine WBC (Auto) Vancomycin Trough 05/26/21 05/26/21 05/26/21 03:15 03:15 03:15 WBC 13.1 H RBC 5.43 H Hgb 15.3 H Hct 48.5 H MCV MCH MCHC RDW 15.4 H Plt Count Seg Neuts % (Manual) Lymphocytes % (Manual) Monocytes % (Manual) Nucleated RBC % Seg Neutrophils # Man Lymphocytes # (Manual) D-Dimer 6229.14 H ABG pH POC ABG pCO2 POC ABG pO2 ABG pO2 ABG HCO3 ABG Base Excess ABG Hemoglobin ABG Oxyhemoglobin ABG Sodium ABG Potassium ABG Chloride ABG Glucose VBG pH Carboxyhemoglobin Sodium Potassium Chloride Carbon Dioxide BUN Creatinine Glucose POC Glucose Lactic Acid Calcium Phosphorus Magnesium Ferritin 2991.0 H AST Ammonia Lactate Dehydrogenase C-Reactive Protein Total Protein Albumin Arterial Blood Glucose Arterial Blood Ionized Calcium Urine WBC (Auto) Vancomycin Trough 05/27/21 05/27/21 05/27/21 08:09 08:09 08:09 WBC 12.4 H RBC 5.27 H Hgb Hct 46.6 H MCV MCH MCHC 31 L RDW 15.7 H Plt Count Seg Neuts % (Manual) Lymphocytes % (Manual) Monocytes % (Manual) Nucleated RBC % Seg Neutrophils # Man Lymphocytes # (Manual) D-Dimer 3584.01 H ABG pH POC ABG pCO2 POC ABG pO2 ABG pO2 ABG HCO3 ABG Base Excess ABG Hemoglobin ABG Oxyhemoglobin ABG Sodium ABG Potassium ABG Chloride ABG Glucose VBG pH Carboxyhemoglobin Sodium 174 H* Potassium Chloride 136.9 H Carbon Dioxide BUN 90 H Creatinine 1.8 H Glucose POC Glucose Lactic Acid Calcium Phosphorus Magnesium Ferritin AST Ammonia Lactate Dehydrogenase 642 H C-Reactive Protein 5.20 H Total Protein Albumin Arterial Blood Glucose Arterial Blood Ionized Calcium Urine WBC (Auto) Vancomycin Trough 05/27/21 05/28/21 05/28/21 08:09 07:31 07:31 WBC RBC Hgb Hct MCV MCH 27 L MCHC 31 L RDW Plt Count Seg Neuts % (Manual) 88.0 H Lymphocytes % (Manual) 11.0 L Monocytes % (Manual) Nucleated RBC % Seg Neutrophils # Man 8.3 H Lymphocytes # (Manual) 1.0 L D-Dimer ABG pH POC ABG pCO2 POC ABG pO2 ABG pO2 ABG HCO3 ABG Base Excess ABG Hemoglobin ABG Oxyhemoglobin ABG Sodium ABG Potassium ABG Chloride ABG Glucose VBG pH Carboxyhemoglobin Sodium 162 H* D Potassium Chloride 125.8 H Carbon Dioxide BUN 72 H Creatinine 1.6 H Glucose 131 H POC Glucose Lactic Acid Calcium Phosphorus Magnesium 3.00 H Ferritin 2742.0 H AST Ammonia Lactate Dehydrogenase C-Reactive Protein Total Protein Albumin Arterial Blood Glucose Arterial Blood Ionized Calcium Urine WBC (Auto) Vancomycin Trough 05/29/21 05/29/21 05/29/21 06:40 06:40 17:58 WBC 14.1 H RBC Hgb Hct MCV MCH 27 L MCHC 31 L RDW Plt Count Seg Neuts % (Manual) 85.0 H Lymphocytes % (Manual) 9.0 L Monocytes % (Manual) Nucleated RBC % 1.0 H Seg Neutrophils # Man 12.0 H Lymphocytes # (Manual) D-Dimer ABG pH 7.505 H POC ABG pCO2 30.3 L POC ABG pO2 128.1 H ABG pO2 ABG HCO3 ABG Base Excess ABG Hemoglobin 11.9 L ABG Oxyhemoglobin ABG Sodium ABG Potassium ABG Chloride 113.0 H ABG Glucose 110 H VBG pH Carboxyhemoglobin Sodium 148 H D Potassium Chloride 111.3 H Carbon Dioxide 20 L BUN 45 H Creatinine Glucose POC Glucose Lactic Acid Calcium Phosphorus 2.10 L D Magnesium Ferritin AST Ammonia Lactate Dehydrogenase C-Reactive Protein Total Protein Albumin Arterial Blood Glucose 110 H Arterial Blood Ionized Calcium 4.5 L Urine WBC (Auto) Vancomycin Trough 05/30/21 05/30/21 05/30/21 01:00 06:06 13:48 WBC RBC Hgb Hct MCV MCH MCHC RDW Plt Count Seg Neuts % (Manual) Lymphocytes % (Manual) Monocytes % (Manual) Nucleated RBC % Seg Neutrophils # Man Lymphocytes # (Manual) D-Dimer ABG pH POC ABG pCO2 POC ABG pO2 ABG pO2 90.9 H ABG HCO3 ABG Base Excess ABG Hemoglobin 11.8 L ABG Oxyhemoglobin ABG Sodium ABG Potassium ABG Chloride ABG Glucose VBG pH Carboxyhemoglobin Sodium 150 H Potassium Chloride 117.6 H Carbon Dioxide BUN 40 H Creatinine Glucose POC Glucose Lactic Acid Calcium 8.3 L Phosphorus Magnesium Ferritin AST Ammonia Lactate Dehydrogenase C-Reactive Protein Total Protein Albumin Arterial Blood Glucose Arterial Blood Ionized Calcium Urine WBC (Auto) 12.0 H Vancomycin Trough 05/30/21 05/31/21 05/31/21 22:32 02:22 02:22 WBC RBC Hgb 11.2 L Hct 34.8 L MCV MCH MCHC RDW Plt Count 127 L Seg Neuts % (Manual) 97.0 H Lymphocytes % (Manual) Monocytes % (Manual) Nucleated RBC % Seg Neutrophils # Man 10.5 H Lymphocytes # (Manual) 0.0 L D-Dimer ABG pH 7.454 H POC ABG pCO2 POC ABG pO2 ABG pO2 141.8 H ABG HCO3 19.9 L ABG Base Excess -2.7 L ABG Hemoglobin ABG Oxyhemoglobin ABG Sodium ABG Potassium ABG Chloride ABG Glucose VBG pH Carboxyhemoglobin Sodium 152 H Potassium Chloride 118.9 H Carbon Dioxide 19 L BUN 48 H Creatinine 1.5 H Glucose 101 H POC Glucose Lactic Acid Calcium 8.3 L Phosphorus Magnesium Ferritin AST Ammonia Lactate Dehydrogenase C-Reactive Protein Total Protein Albumin Arterial Blood Glucose Arterial Blood Ionized Calcium Urine WBC (Auto) Vancomycin Trough 05/31/21 05/31/21 06/01/21 11:42 21:28 07:10 WBC RBC Hgb Hct MCV MCH MCHC RDW Plt Count Seg Neuts % (Manual) Lymphocytes % (Manual) Monocytes % (Manual) Nucleated RBC % Seg Neutrophils # Man Lymphocytes # (Manual) D-Dimer ABG pH POC ABG pCO2 POC ABG pO2 ABG pO2 ABG HCO3 ABG Base Excess ABG Hemoglobin ABG Oxyhemoglobin ABG Sodium ABG Potassium ABG Chloride ABG Glucose VBG pH Carboxyhemoglobin Sodium 150 H Potassium Chloride 115.7 H Carbon Dioxide BUN 47 H Creatinine Glucose 115 H POC Glucose 161 H Lactic Acid Calcium Phosphorus Magnesium 2.50 H Ferritin AST Ammonia Lactate Dehydrogenase C-Reactive Protein Total Protein Albumin Arterial Blood Glucose Arterial Blood Ionized Calcium Urine WBC (Auto) Vancomycin Trough 20.2 H 06/01/21 06/01/21 06/01/21 07:10 07:54 10:39 WBC RBC Hgb 10.7 L Hct 33.5 L MCV MCH MCHC RDW Plt Count Seg Neuts % (Manual) 92.0 H Lymphocytes % (Manual) 4.0 L Monocytes % (Manual) Nucleated RBC % Seg Neutrophils # Man Lymphocytes # (Manual) 0.3 L D-Dimer ABG pH POC ABG pCO2 POC ABG pO2 ABG pO2 ABG HCO3 ABG Base Excess ABG Hemoglobin ABG Oxyhemoglobin ABG Sodium ABG Potassium ABG Chloride ABG Glucose VBG pH Carboxyhemoglobin Sodium 152 H Potassium Chloride 117.6 H Carbon Dioxide BUN 50 H Creatinine Glucose 140 H POC Glucose 127 H Lactic Acid Calcium 8.3 L Phosphorus Magnesium Ferritin AST Ammonia Lactate Dehydrogenase C-Reactive Protein Total Protein Albumin Arterial Blood Glucose Arterial Blood Ionized Calcium Urine WBC (Auto) Vancomycin Trough 06/01/21 06/01/21 06/01/21 11:11 16:16 21:45 WBC RBC Hgb Hct MCV MCH MCHC RDW Plt Count Seg Neuts % (Manual) Lymphocytes % (Manual) Monocytes % (Manual) Nucleated RBC % Seg Neutrophils # Man Lymphocytes # (Manual) D-Dimer ABG pH POC ABG pCO2 POC ABG pO2 ABG pO2 ABG HCO3 ABG Base Excess ABG Hemoglobin ABG Oxyhemoglobin ABG Sodium ABG Potassium ABG Chloride ABG Glucose VBG pH Carboxyhemoglobin Sodium Potassium Chloride Carbon Dioxide BUN Creatinine Glucose POC Glucose 120 H 129 H 150 H Lactic Acid Calcium Phosphorus Magnesium Ferritin AST Ammonia Lactate Dehydrogenase C-Reactive Protein Total Protein Albumin Arterial Blood Glucose Arterial Blood Ionized Calcium Urine WBC (Auto) Vancomycin Trough 06/02/21 06/02/21 06/02/21 06:53 06:53 07:52 WBC RBC Hgb 10.4 L Hct 32.4 L MCV MCH 27 L MCHC RDW Plt Count Seg Neuts % (Manual) 93.0 H Lymphocytes % (Manual) 3.0 L Monocytes % (Manual) Nucleated RBC % Seg Neutrophils # Man Lymphocytes # (Manual) 0.2 L D-Dimer ABG pH POC ABG pCO2 POC ABG pO2 ABG pO2 ABG HCO3 ABG Base Excess ABG Hemoglobin ABG Oxyhemoglobin ABG Sodium ABG Potassium ABG Chloride ABG Glucose VBG pH Carboxyhemoglobin Sodium 149 H Potassium Chloride 112.6 H Carbon Dioxide BUN 54 H Creatinine Glucose 123 H POC Glucose 116 H Lactic Acid Calcium 8.2 L Phosphorus Magnesium Ferritin AST Ammonia Lactate Dehydrogenase C-Reactive Protein Total Protein Albumin Arterial Blood Glucose Arterial Blood Ionized Calcium Urine WBC (Auto) Vancomycin Trough 06/03/21 06/03/21 06/03/21 05:57 05:57 21:23 WBC RBC Hgb 10.7 L Hct 33.0 L MCV 83 L MCH 27 L MCHC RDW Plt Count Seg Neuts % (Manual) 88.0 H Lymphocytes % (Manual) 8.0 L Monocytes % (Manual) Nucleated RBC % 2.0 H Seg Neutrophils # Man Lymphocytes # (Manual) 0.6 L D-Dimer ABG pH POC ABG pCO2 POC ABG pO2 39.0 L ABG pO2 ABG HCO3 ABG Base Excess ABG Hemoglobin ABG Oxyhemoglobin 69.1 L ABG Sodium 134.1 L ABG Potassium ABG Chloride ABG Glucose 135 H VBG pH Carboxyhemoglobin Sodium Potassium Chloride Carbon Dioxide BUN 36 H Creatinine Glucose 102 H POC Glucose Lactic Acid Calcium 8.0 L Phosphorus 2.20 L D Magnesium Ferritin AST Ammonia Lactate Dehydrogenase C-Reactive Protein Total Protein Albumin Arterial Blood Glucose 135 H Arterial Blood Ionized Calcium Urine WBC (Auto) Vancomycin Trough 06/04/21 06/04/21 06/04/21 07:04 07:04 17:42 WBC RBC Hgb 11.3 L Hct 34.9 L MCV MCH 27 L MCHC RDW Plt Count Seg Neuts % (Manual) Lymphocytes % (Manual) 5.0 L Monocytes % (Manual) Nucleated RBC % Seg Neutrophils # Man 8.4 H Lymphocytes # (Manual) 0.5 L D-Dimer ABG pH POC ABG pCO2 POC ABG pO2 ABG pO2 ABG HCO3 ABG Base Excess ABG Hemoglobin ABG Oxyhemoglobin ABG Sodium ABG Potassium ABG Chloride ABG Glucose VBG pH Carboxyhemoglobin Sodium Potassium Chloride Carbon Dioxide BUN 27 H Creatinine Glucose POC Glucose 136 H Lactic Acid Calcium 8.2 L Phosphorus Magnesium Ferritin AST Ammonia Lactate Dehydrogenase C-Reactive Protein Total Protein Albumin Arterial Blood Glucose Arterial Blood Ionized Calcium Urine WBC (Auto) Vancomycin Trough 06/05/21 06/05/21 06/05/21 05:10 12:32 15:45 WBC RBC Hgb Hct MCV MCH MCHC RDW Plt Count Seg Neuts % (Manual) Lymphocytes % (Manual) Monocytes % (Manual) Nucleated RBC % Seg Neutrophils # Man Lymphocytes # (Manual) D-Dimer ABG pH POC ABG pCO2 POC ABG pO2 ABG pO2 ABG HCO3 ABG Base Excess ABG Hemoglobin ABG Oxyhemoglobin ABG Sodium ABG Potassium ABG Chloride ABG Glucose VBG pH Carboxyhemoglobin Sodium Potassium 3.5 L Chloride Carbon Dioxide BUN 35 H Creatinine Glucose 130 H POC Glucose 122 H 119 H Lactic Acid Calcium 8.2 L Phosphorus Magnesium Ferritin AST Ammonia Lactate Dehydrogenase C-Reactive Protein Total Protein Albumin Arterial Blood Glucose Arterial Blood Ionized Calcium Urine WBC (Auto) Vancomycin Trough 06/05/21 06/05/21 06/06/21 20:06 21:27 00:04 WBC RBC Hgb Hct MCV MCH MCHC RDW Plt Count Seg Neuts % (Manual) Lymphocytes % (Manual) Monocytes % (Manual) Nucleated RBC % Seg Neutrophils # Man Lymphocytes # (Manual) D-Dimer ABG pH 7.456 H POC ABG pCO2 POC ABG pO2 ABG pO2 ABG HCO3 ABG Base Excess ABG Hemoglobin 10.3 L ABG Oxyhemoglobin ABG Sodium ABG Potassium 3.1 L ABG Chloride ABG Glucose 125 H VBG pH Carboxyhemoglobin 0.3 L Sodium Potassium Chloride Carbon Dioxide BUN Creatinine Glucose POC Glucose 113 H Lactic Acid Calcium Phosphorus Magnesium Ferritin AST Ammonia Lactate Dehydrogenase C-Reactive Protein 19.60 H Total Protein Albumin Arterial Blood Glucose 125 H Arterial Blood Ionized Calcium Urine WBC (Auto) Vancomycin Trough 06/06/21 06/06/21 06/07/21 04:35 22:37 05:54 WBC RBC Hgb Hct MCV MCH MCHC RDW Plt Count Seg Neuts % (Manual) Lymphocytes % (Manual) Monocytes % (Manual) Nucleated RBC % Seg Neutrophils # Man Lymphocytes # (Manual) D-Dimer ABG pH POC ABG pCO2 POC ABG pO2 ABG pO2 ABG HCO3 ABG Base Excess ABG Hemoglobin ABG Oxyhemoglobin ABG Sodium ABG Potassium ABG Chloride ABG Glucose VBG pH Carboxyhemoglobin Sodium Potassium Chloride Carbon Dioxide BUN 43 H Creatinine Glucose POC Glucose 114 H 130 H Lactic Acid Calcium 7.6 L Phosphorus Magnesium Ferritin AST Ammonia Lactate Dehydrogenase C-Reactive Protein Total Protein Albumin Arterial Blood Glucose Arterial Blood Ionized Calcium Urine WBC (Auto) Vancomycin Trough 06/07/21 06/07/21 06/07/21 07:32 10:03 11:36 WBC RBC 3.63 L Hgb 9.8 L Hct 30.3 L MCV 83 L MCH 27 L MCHC RDW Plt Count Seg Neuts % (Manual) Lymphocytes % (Manual) Monocytes % (Manual) Nucleated RBC % Seg Neutrophils # Man Lymphocytes # (Manual) D-Dimer ABG pH POC ABG pCO2 POC ABG pO2 ABG pO2 ABG HCO3 ABG Base Excess ABG Hemoglobin ABG Oxyhemoglobin ABG Sodium ABG Potassium ABG Chloride ABG Glucose VBG pH Carboxyhemoglobin Sodium Potassium 3.2 L Chloride 108.5 H Carbon Dioxide BUN 36 H Creatinine Glucose 139 H POC Glucose 125 H Lactic Acid Calcium 8.0 L Phosphorus Magnesium Ferritin AST Ammonia Lactate Dehydrogenase C-Reactive Protein Total Protein Albumin Arterial Blood Glucose Arterial Blood Ionized Calcium Urine WBC (Auto) Vancomycin Trough 06/07/21 06/07/21 06/08/21 17:54 22:14 07:18 WBC RBC Hgb Hct MCV MCH MCHC RDW Plt Count Seg Neuts % (Manual) Lymphocytes % (Manual) Monocytes % (Manual) Nucleated RBC % Seg Neutrophils # Man Lymphocytes # (Manual) D-Dimer ABG pH POC ABG pCO2 POC ABG pO2 ABG pO2 ABG HCO3 ABG Base Excess ABG Hemoglobin ABG Oxyhemoglobin ABG Sodium ABG Potassium ABG Chloride ABG Glucose VBG pH Carboxyhemoglobin Sodium 149 H Potassium Chloride 110.2 H Carbon Dioxide BUN 31 H Creatinine Glucose 131 H POC Glucose 121 H 131 H Lactic Acid Calcium 8.1 L Phosphorus Magnesium Ferritin AST Ammonia Lactate Dehydrogenase C-Reactive Protein Total Protein Albumin Arterial Blood Glucose Arterial Blood Ionized Calcium Urine WBC (Auto) Vancomycin Trough 06/08/21 06/08/21 06/08/21 07:45 12:07 18:02 WBC RBC Hgb Hct MCV MCH MCHC RDW Plt Count Seg Neuts % (Manual) Lymphocytes % (Manual) Monocytes % (Manual) Nucleated RBC % Seg Neutrophils # Man Lymphocytes # (Manual) D-Dimer ABG pH POC ABG pCO2 POC ABG pO2 ABG pO2 ABG HCO3 ABG Base Excess ABG Hemoglobin ABG Oxyhemoglobin ABG Sodium ABG Potassium ABG Chloride ABG Glucose VBG pH Carboxyhemoglobin Sodium Potassium Chloride Carbon Dioxide BUN Creatinine Glucose POC Glucose 120 H 127 H 148 H Lactic Acid Calcium Phosphorus Magnesium Ferritin AST Ammonia Lactate Dehydrogenase C-Reactive Protein Total Protein Albumin Arterial Blood Glucose Arterial Blood Ionized Calcium Urine WBC (Auto) Vancomycin Trough 06/09/21 06/09/21 06/09/21 05:51 05:51 11:37 WBC 3.9 L RBC 3.38 L Hgb 9.4 L Hct 28.5 L MCV MCH MCHC RDW Plt Count Seg Neuts % (Manual) Lymphocytes % (Manual) Monocytes % (Manual) Nucleated RBC % Seg Neutrophils # Man Lymphocytes # (Manual) D-Dimer ABG pH POC ABG pCO2 POC ABG pO2 ABG pO2 ABG HCO3 ABG Base Excess ABG Hemoglobin ABG Oxyhemoglobin ABG Sodium ABG Potassium ABG Chloride ABG Glucose VBG pH Carboxyhemoglobin Sodium Potassium Chloride 108.4 H Carbon Dioxide BUN 32 H Creatinine Glucose 137 H POC Glucose 115 H Lactic Acid Calcium 7.5 L Phosphorus Magnesium Ferritin AST 55 H Ammonia Lactate Dehydrogenase C-Reactive Protein 4.10 H Total Protein 5.6 L Albumin 2.0 L Arterial Blood Glucose Arterial Blood Ionized Calcium Urine WBC (Auto) Vancomycin Trough 06/09/21 06/09/21 06/10/21 17:32 22:18 01:52 WBC RBC 3.62 L Hgb 9.9 L Hct 29.8 L MCV 82 L MCH 27 L MCHC RDW Plt Count Seg Neuts % (Manual) Lymphocytes % (Manual) Monocytes % (Manual) Nucleated RBC % Seg Neutrophils # Man Lymphocytes # (Manual) D-Dimer ABG pH POC ABG pCO2 POC ABG pO2 ABG pO2 ABG HCO3 ABG Base Excess ABG Hemoglobin ABG Oxyhemoglobin ABG Sodium ABG Potassium ABG Chloride ABG Glucose VBG pH Carboxyhemoglobin Sodium Potassium Chloride Carbon Dioxide BUN Creatinine Glucose POC Glucose 113 H 110 H Lactic Acid Calcium Phosphorus Magnesium Ferritin AST Ammonia Lactate Dehydrogenase C-Reactive Protein Total Protein Albumin Arterial Blood Glucose Arterial Blood Ionized Calcium Urine WBC (Auto) Vancomycin Trough 06/10/21 06/10/21 06/10/21 01:52 16:14 22:45 WBC RBC Hgb Hct MCV MCH MCHC RDW Plt Count Seg Neuts % (Manual) Lymphocytes % (Manual) Monocytes % (Manual) Nucleated RBC % Seg Neutrophils # Man Lymphocytes # (Manual) D-Dimer ABG pH POC ABG pCO2 POC ABG pO2 ABG pO2 ABG HCO3 ABG Base Excess ABG Hemoglobin ABG Oxyhemoglobin ABG Sodium ABG Potassium ABG Chloride ABG Glucose VBG pH Carboxyhemoglobin Sodium Potassium Chloride 108.2 H Carbon Dioxide BUN 32 H Creatinine 1.4 H Glucose POC Glucose 111 H 107 H Lactic Acid Calcium 7.8 L Phosphorus Magnesium Ferritin AST 55 H Ammonia Lactate Dehydrogenase C-Reactive Protein Total Protein 5.6 L Albumin 1.9 L Arterial Blood Glucose Arterial Blood Ionized Calcium Urine WBC (Auto) Vancomycin Trough 06/11/21 06/11/21 06/11/21 05:51 05:51 05:51 WBC RBC 3.35 L Hgb 9.1 L Hct 28.1 L MCV MCH 27 L MCHC RDW Plt Count 117 L Seg Neuts % (Manual) 93.0 H Lymphocytes % (Manual) 1.0 L Monocytes % (Manual) Nucleated RBC % Seg Neutrophils # Man Lymphocytes # (Manual) 0.0 L D-Dimer ABG pH POC ABG pCO2 POC ABG pO2 ABG pO2 ABG HCO3 ABG Base Excess ABG Hemoglobin ABG Oxyhemoglobin ABG Sodium ABG Potassium ABG Chloride ABG Glucose VBG pH Carboxyhemoglobin Sodium 146 H Potassium Chloride 110.9 H Carbon Dioxide BUN 40 H Creatinine Glucose 119 H POC Glucose Lactic Acid Calcium 7.8 L Phosphorus Magnesium Ferritin AST Ammonia Lactate Dehydrogenase C-Reactive Protein Total Protein Albumin Arterial Blood Glucose Arterial Blood Ionized Calcium Urine WBC (Auto) Vancomycin Trough 22.6 H 06/11/21 06/11/21 06/11/21 08:28 11:36 15:47 WBC RBC Hgb Hct MCV MCH MCHC RDW Plt Count Seg Neuts % (Manual) Lymphocytes % (Manual) Monocytes % (Manual) Nucleated RBC % Seg Neutrophils # Man Lymphocytes # (Manual) D-Dimer ABG pH POC ABG pCO2 POC ABG pO2 ABG pO2 ABG HCO3 ABG Base Excess ABG Hemoglobin ABG Oxyhemoglobin ABG Sodium ABG Potassium ABG Chloride ABG Glucose VBG pH Carboxyhemoglobin Sodium Potassium Chloride Carbon Dioxide BUN Creatinine Glucose POC Glucose 109 H 149 H 139 H Lactic Acid Calcium Phosphorus Magnesium Ferritin AST Ammonia Lactate Dehydrogenase C-Reactive Protein Total Protein Albumin Arterial Blood Glucose Arterial Blood Ionized Calcium Urine WBC (Auto) Vancomycin Trough 06/11/21 06/12/21 06/12/21 21:42 04:00 04:00 WBC 4.0 L RBC 3.50 L Hgb 9.4 L Hct 29.9 L MCV MCH 27 L MCHC 31 L RDW 15.3 H Plt Count 126 L Seg Neuts % (Manual) 88.0 H Lymphocytes % (Manual) Monocytes % (Manual) 12.0 H Nucleated RBC % Seg Neutrophils # Man Lymphocytes # (Manual) 0.0 L D-Dimer ABG pH POC ABG pCO2 POC ABG pO2 ABG pO2 ABG HCO3 ABG Base Excess ABG Hemoglobin ABG Oxyhemoglobin ABG Sodium ABG Potassium ABG Chloride ABG Glucose VBG pH Carboxyhemoglobin Sodium 149 H Potassium Chloride 114.1 H Carbon Dioxide BUN 37 H Creatinine Glucose 137 H POC Glucose 124 H Lactic Acid Calcium 8.0 L Phosphorus Magnesium Ferritin AST Ammonia Lactate Dehydrogenase C-Reactive Protein Total Protein Albumin Arterial Blood Glucose Arterial Blood Ionized Calcium Urine WBC (Auto) Vancomycin Trough 06/12/21 06/13/21 06/13/21 06:37 00:14 06:05 WBC 4.3 L RBC 3.39 L Hgb 9.2 L Hct 28.6 L MCV MCH 27 L MCHC RDW 15.3 H Plt Count 107 L Seg Neuts % (Manual) 77.0 H Lymphocytes % (Manual) 1.0 L Monocytes % (Manual) Nucleated RBC % 1.0 H Seg Neutrophils # Man Lymphocytes # (Manual) 0.0 L D-Dimer ABG pH POC ABG pCO2 POC ABG pO2 ABG pO2 ABG HCO3 ABG Base Excess ABG Hemoglobin ABG Oxyhemoglobin ABG Sodium ABG Potassium ABG Chloride ABG Glucose VBG pH Carboxyhemoglobin Sodium Potassium Chloride Carbon Dioxide BUN Creatinine Glucose POC Glucose 128 H 149 H Lactic Acid Calcium Phosphorus Magnesium Ferritin AST Ammonia Lactate Dehydrogenase C-Reactive Protein Total Protein Albumin Arterial Blood Glucose Arterial Blood Ionized Calcium Urine WBC (Auto) Vancomycin Trough 06/13/21 06/13/21 06:05 11:51 WBC RBC Hgb Hct MCV MCH MCHC RDW Plt Count Seg Neuts % (Manual) Lymphocytes % (Manual) Monocytes % (Manual) Nucleated RBC % Seg Neutrophils # Man Lymphocytes # (Manual) D-Dimer ABG pH POC ABG pCO2 POC ABG pO2 48.3 L ABG pO2 ABG HCO3 ABG Base Excess ABG Hemoglobin 10.7 L ABG Oxyhemoglobin 84.1 L ABG Sodium 145.5 H ABG Potassium ABG Chloride 116.0 H ABG Glucose VBG pH Carboxyhemoglobin Sodium 146 H Potassium 3.5 L Chloride 112.3 H Carbon Dioxide BUN 38 H Creatinine Glucose 112 H POC Glucose Lactic Acid Calcium 8.1 L Phosphorus Magnesium Ferritin AST Ammonia Lactate Dehydrogenase C-Reactive Protein Total Protein Albumin Arterial Blood Glucose Arterial Blood Ionized Calcium Urine WBC (Auto) Vancomycin Trough Chest x-ray: pending Allied health notes reviewed: nursing
[2021-06-13] MEDS: POTASSIUM CHLORIDE 10 MEQ 10 MEQ/100 ML BAG IV SCH ×2 (16:13→23:02)
--- NOTE | 2021-06-13 16:46 | Progress Note ---
Assessment and Plan Impression: * Acute kidney injury secondary to ATN likely related to COVID 19 * Acute hypoxic respiratory failure secondary to COVID 19 PNA * Azotemia * Hyperkalemia * Metabolic acidosis * Hypernatremia Plan: * creatinine is stable 1.2->1.4->1.2->1.1->1.2, on D5 1/2NS to encourage renal perfusion * Sodium slightly improved at 146->149->146, continue free water as above, po hydration if able * off baclofen * agree with Ca repletion * Keep MAP>65 * Management of COVID 19 PNA to primary team/ID * Dose medications for renal function * AM labs * Renal diet * follow up lytes prn * Prognosis guarded Subjective Date of service: 06/13/21 Principal diagnosis: Acute hypoxemic resp failure; Pneumonia; PUI COVID-19 infection Interval history: No acute changes noted, patient resting in bed this AM Objective - Exam Narrative Exam: Direct examination deferred given COVID-19 pandemic, need to limit PPE overuse - Vital Signs Vital signs: Vital Signs - 12hr 06/13/21 06/13/21 05:46 12:24 Temperature 98.2 F 102.9 F H Pulse Rate 77 76 Respiratory 22 30 H Rate Blood Pressure 138/79 188/79 O2 Sat by Pulse 98 89 Oximetry - Lab 06/13/21 06:05 06/13/21 06:05 Most recent lab results ABG pH 7.408 (7.320-7.450) 06/13/21 11:51 ABG pCO2 29.0 mm Hg 05/30/21 22:32 ABG pO2 141.8 mm Hg (80.0-90.0) H 05/30/21 22:32 ABG HCO3 19.9 mmol/L (20.0-26.0) L 05/30/21 22:32 ABG O2 Saturation 84.9 (0-100) 06/13/21 11:51 Calcium 8.1 mg/dL (8.4-10.2) L 06/13/21 06:05 Phosphorus 2.20 mg/dL (2.5-4.5) L D 06/03/21 05:57 Magnesium 2.30 mg/dL (1.7-2.3) 06/06/21 04:35 Medications & Allergies - Medications Allergies/Adverse Reactions: Allergies No Known Allergies Allergy (Unverified 02/12/17 15:47) Home Medications: Home Medications Medication Instructions Recorded Confirmed Last Taken Type No Known Home Medications [No 05/31/21 05/31/21 Unknown History Reported Home Medications] Active Medications: Generic Name Dose Route Start Last Admin Trade Name Freq PRN Reason Stop Dose Admin Acetaminophen 650 mg 05/29/21 07:05 06/03/21 21:32 Acetaminophen 325 Mg Tab PO 650 mg Q6H PRN Administration Pain, Mild (1-3) Acetaminophen 650 mg 06/03/21 08:21 06/03/21 08:42 Acetaminophen 650 Mg Rect Supp GA 650 mg Q4H PRN Administration Pain, Mild (1-3) Albuterol/Ipratropium 1 ampul 06/07/21 20:00 06/13/21 10:50 Ipratropium/Albuterol Sulfate 3 Ml Ampul.Neb IH 1 ampul TIDRT MIKE Administration Lipase/Protease/Amylase 1 each 06/03/21 12:23 Lipase 10,500/Protease 25,000/Amylase 43,750 (Units) Dr Rodney FEEDTUBE PRN PRN For Clogged Feeding Tube Docusate Sodium 100 mg 06/07/21 10:00 06/12/21 10:18 Docusate Sodium 100 Mg Cap PO Not Given DAILY [facility] Heparin Sodium (Porcine) 5,000 unit 05/24/21 06:00 06/13/21 16:32 Heparin 5,000 Unit/1 Ml Vial SUB-Q 5,000 unit Q8HR MIKE Administration Metronidazole 500 mg in 100 mls @ 100 mls/hr 06/08/21 13:00 06/13/21 05:08 Flagyl 500 Mg/100 Ml IV 100 mls/hr Q8H MIKE Administration Protocol Cefepime HCl 2 gm in 100 mls @ 200 mls/hr 06/08/21 23:08 06/13/21 06:08 Cefepime/Ns 2 Gm/100 Ml IV 200 mls/hr Q8HR MIKE Administration Protocol Vancomycin HCl 1 gm in 250 mls @ 166.667 mls/hr 06/12/21 08:00 06/12/21 08:00 Vancomycin/Ns 1 Gm/250 Ml IV Not Given Q24H MIKE Dextrose 1,000 mls @ 75 mls/hr 06/13/21 07:00 D5w IV DIRECT MIKE Methylprednisolone Sodium Succinate 20 mg 06/13/21 22:00 Methylprednisolone Sod Succinate 40 Mg/1 Ml Inj IV Q12HR [facility] Morphine Sulfate 2 mg 05/23/21 22:01 06/13/21 00:17 Morphine 2 Mg/1 Ml Inj IV 2 mg Q4H PRN Administration Pain, Moderate (4-6) Ondansetron HCl 4 mg 06/04/21 13:41 06/09/21 22:05 Ondansetron 4 Mg/2 Ml Inj IV 4 mg Q4H PRN Administration Nausea And Vomiting Simple Syrup 15 ml 06/03/21 12:23 Simple Syrup 15 Ml FEEDTUBE PRN PRN Hypoglycemia Simple Syrup 30 ml 06/03/21 12:23 Simple Syrup 15 Ml FEEDTUBE PRN PRN Hypoglycemia Sodium Bicarbonate 325 mg 06/03/21 12:23 Sodium Bicarbonate 325 Mg Tab FEEDTUBE PRN PRN For Clogged Feeding Tube Sodium Chloride 10 ml 05/24/21 10:00 06/13/21 16:31 Sodium Chloride 0.9% 10 Ml Flush Syringe IV 10 ml BID MIKE Administration Sodium Chloride 10 ml 05/23/21 22:01 Sodium Chloride 0.9% 10 Ml Flush Syringe IV PRN PRN LINE FLUSH
[2021-06-13] MEDS: DEXTROSE 5% IN WATER 1,000 ML IV SCH (21:06)
[2021-06-13] MEDS: VANCOMYCIN/NS 1 GM/250 ML 1 GM/250 ML BAG IV SCH (22:39)
[2021-06-14] MEDS: POTASSIUM CHLORIDE 10 MEQ 10 MEQ/100 ML BAG IV SCH ×4 (00:08→01:18)
[2021-06-14] MEDS: DOCUSATE SODIUM 100 MG CAP PO SCH (00:12)
[2021-06-14] MEDS: MORPHINE 2 MG/1 ML INJ IV PRN (00:20)
[2021-06-14 05:00] LABS: Hematocrit 26.7 % (35.5-45.6); Hemoglobin 8.7 gm/dl (11.8-15.2); Mean Corpuscular HGB Conc 33 % (32-34); Mean Corpuscular Volume 83 fl (84-94); Red Blood Count 3.21 M/mm3 (3.65-5.03); Red Cell Distribution Width 15.3 % (13.2-15.2)
[2021-06-14 05:10] LABS: Platelet Count 87 K/mm3 (140-440)
[2021-06-14 05:39] LABS: BUN/Creatinine Ratio 31; Blood Urea Nitrogen 40 mg/dL (9-20); Calcium 8.2 mg/dL (8.4-10.2); Hemolysis Index 19
[2021-06-14] MEDS: CEFEPIME/NS 2 GM/100 ML 2 GM/100 ML BAG IV SCH ×3 (06:00→22:31)
[2021-06-14] MEDS: metroNIDAZOLE/NS 500 MG/100 ML 500 MG/100 ML BAG IV SCH ×3 (06:05→22:57)
[2021-06-14] MEDS: HEPARIN 5,000 UNIT/1 ML VIAL SUB-Q SCH ×3 (06:05→22:30)
[2021-06-14 08:21] LABS: Total Cells Counted 100
[2021-06-14 08:23] LABS: Anisocytosis Few
[2021-06-14] MEDS: IPRATROPIUM/ALBUTEROL SULFATE 3 ML AMPUL.NEB IH SCH ×3 (08:40→21:35)
[2021-06-14] MEDS ORDERED: CALCIUM GLUCONATE 2,000 MG in SODIUM CHLORIDE 0.9% 100 ML IV ONE (09:00)
--- NOTE | 2021-06-14 09:33 | Progress Note ---
Assessment and Plan Impression: * Acute kidney injury secondary to ATN likely related to COVID 19 * Acute hypoxic respiratory failure secondary to COVID 19 PNA * Azotemia * Hyperkalemia * Metabolic acidosis * Hypernatremia Plan: * creatinine is stable 1.2->1.4->1.2->1.1->1.2->1.3, on D5W for free water * Sodium slightly improved at 146->149->146->148, continue free water as above, po hydration if able * off baclofen * agree with Ca repletion * Keep MAP>65 * Management of COVID 19 PNA to primary team/ID * Dose medications for renal function * AM labs * Renal diet * follow up lytes prn * Prognosis guarded Subjective Date of service: 06/14/21 Principal diagnosis: Acute hypoxemic resp failure; Pneumonia; PUI COVID-19 infection Interval history: Patient transferred to [facility] overnight for respiratory distress, on Venti[employer] this AM. Continues on D5W Objective - Exam Narrative Exam: Direct examination deferred given COVID-19 pandemic, need to limit PPE overuse - Vital Signs Vital signs: Vital Signs - 12hr 06/13/21 06/13/21 06/13/21 22:00 23:00 23:59 Temperature 98.6 F Pulse Rate 76 75 Pulse Rate [ Anterior Bilateral Throughout] Pulse Rate [ From Monitor] Respiratory 25 H 24 Rate Respiratory Rate [Anterior Bilateral Throughout] Blood Pressure 154/83 154/83 O2 Sat by Pulse 100 Oximetry 06/14/21 06/14/21 06/14/21 00:00 00:15 00:19 Temperature Pulse Rate 71 74 70 Pulse Rate [ Anterior Bilateral Throughout] Pulse Rate [ From Monitor] Respiratory 25 H 23 Rate Respiratory Rate [Anterior Bilateral Throughout] Blood Pressure 155/83 O2 Sat by Pulse 100 100 Oximetry 06/14/21 06/14/21 06/14/21 00:20 00:50 01:00 Temperature Pulse Rate 74 Pulse Rate [ Anterior Bilateral Throughout] Pulse Rate [ 74 From Monitor] Respiratory 24 17 18 Rate Respiratory Rate [Anterior Bilateral Throughout] Blood Pressure 151/85 O2 Sat by Pulse 100 Oximetry 06/14/21 06/14/21 06/14/21 02:00 02:52 03:00 Temperature 98.4 F Pulse Rate 73 74 Pulse Rate [ Anterior Bilateral Throughout] Pulse Rate [ From Monitor] Respiratory 18 19 Rate Respiratory Rate [Anterior Bilateral Throughout] Blood Pressure 151/85 154/87 O2 Sat by Pulse 100 100 Oximetry 06/14/21 06/14/21 06/14/21 04:00 04:10 04:20 Temperature Pulse Rate 65 75 62 Pulse Rate [ Anterior Bilateral Throughout] Pulse Rate [ From Monitor] Respiratory 19 21 Rate Respiratory Rate [Anterior Bilateral Throughout] Blood Pressure 151/82 O2 Sat by Pulse 100 100 Oximetry 06/14/21 06/14/21 06/14/21 05:00 06:00 08:00 Temperature 97.8 F Pulse Rate 61 68 Pulse Rate [ Anterior Bilateral Throughout] Pulse Rate [ From Monitor] Respiratory 17 22 Rate Respiratory Rate [Anterior Bilateral Throughout] Blood Pressure 156/81 161/82 O2 Sat by Pulse 100 99 Oximetry 06/14/21 06/14/21 06/14/21 08:30 08:41 08:44 Temperature Pulse Rate 78 Pulse Rate [ 81 Anterior Bilateral Throughout] Pulse Rate [ From Monitor] Respiratory 28 H Rate Respiratory 28 H Rate [Anterior Bilateral Throughout] Blood Pressure O2 Sat by Pulse 98 96 Oximetry - Lab 06/14/21 04:29 06/14/21 04:29 Most recent lab results ABG pH 7.408 (7.320-7.450) 06/13/21 11:51 ABG pCO2 29.0 mm Hg 05/30/21 22:32 ABG pO2 141.8 mm Hg (80.0-90.0) H 05/30/21 22:32 ABG HCO3 19.9 mmol/L (20.0-26.0) L 05/30/21 22:32 ABG O2 Saturation 84.9 (0-100) 06/13/21 11:51 Calcium 8.2 mg/dL (8.4-10.2) L 06/14/21 04:29 Phosphorus 2.70 mg/dL (2.5-4.5) 06/14/21 04:29 Magnesium 2.00 mg/dL (1.7-2.3) 06/14/21 04:29 Medications & Allergies - Medications Allergies/Adverse Reactions: Allergies No Known Allergies Allergy (Unverified 02/12/17 15:47) Home Medications: Home Medications Medication Instructions Recorded Confirmed Last Taken Type No Known Home Medications [No 05/31/21 05/31/21 Unknown History Reported Home Medications] Active Medications: Generic Name Dose Route Start Last Admin Trade Name Freq PRN Reason Stop Dose Admin Albuterol/Ipratropium 1 ampul 06/07/21 20:00 06/14/21 08:40 Ipratropium/Albuterol Sulfate 3 Ml Ampul.Neb IH 1 ampul TIDRT IMKE Administration Lipase/Protease/Amylase 1 each 06/03/21 12:23 Lipase 10,500/Protease 25,000/Amylase 43,750 (Units) Dr Rodney FEEDTUBE PRN PRN For Clogged Feeding Tube Heparin Sodium (Porcine) 5,000 unit 05/24/21 06:00 06/14/21 06:05 Heparin 5,000 Unit/1 Ml Vial SUB-Q 5,000 unit Q8HR MIKE Administration Metronidazole 500 mg in 100 mls @ 100 mls/hr 06/08/21 13:00 06/14/21 06:05 Flagyl 500 Mg/100 Ml IV 100 mls/hr Q8H MIKE Administration Protocol Cefepime HCl 2 gm in 100 mls @ 200 mls/hr 06/08/21 23:08 06/14/21 06:00 Cefepime/Ns 2 Gm/100 Ml IV 200 mls/hr Q8HR MIKE Administration Protocol Vancomycin HCl 1 gm in 250 mls @ 166.667 mls/hr 06/12/21 08:00 06/13/21 22:39 Vancomycin/Ns 1 Gm/250 Ml IV 166.667 mls/hr Q24H MIKE Administration Dextrose 1,000 mls @ 75 mls/hr 06/13/21 07:00 06/13/21 21:06 D5w IV 75 mls/hr DIRECT MIKE Administration Methylprednisolone Sodium Succinate 20 mg 06/13/21 22:00 06/13/21 21:29 Methylprednisolone Sod Succinate 40 Mg/1 Ml Inj IV 20 mg Q12HR MIKE Administration Morphine Sulfate 2 mg 05/23/21 22:01 06/14/21 00:20 Morphine 2 Mg/1 Ml Inj IV 2 mg Q4H PRN Administration Pain, Moderate (4-6) Ondansetron HCl 4 mg 06/04/21 13:41 06/09/21 22:05 Ondansetron 4 Mg/2 Ml Inj IV 4 mg Q4H PRN Administration Nausea And Vomiting Sodium Chloride 10 ml 05/23/21 22:01 Sodium Chloride 0.9% 10 Ml Flush Syringe IV PRN PRN LINE FLUSH
[2021-06-14] MEDS ORDERED: VANCOMYCIN/NS 1 GM/250 ML 0 GM/0 ML BAG IV ONE (09:52)
[2021-06-14] MEDS: methylPREDNISolone Sod Succinate 40 MG/1 ML INJ IV SCH ×2 (09:54→22:29)
[2021-06-14] MEDS ORDERED: VANCOMYCIN/NS 1 GM/250 ML 1 GM/250 ML BAG IV SCH (10:00)
--- NOTE | 2021-06-14 10:26 | Progress Note ---
Assessment and Plan Assessment and plan: #Acute hypoxic respiratory failure-stable -Currently on BiPAP, will maintain SpO2 >90% -VQ scan low probability for PE on admission -Continue IV methylprednisone 20 mg every 12 hours. We will continue to wean per ID recommendations. Will decrease dose to 10 mg every 12 hours on 06/16/2021. -s/p 1 dose of Lasix -TTE 06/06: LVEF 55 to 60%, no valvular or chamber abnormalities -Pulmonary consulted, recommendations appreciated -patient continues to deteriorate will possibly need bronchoscopy to address the cavitary lesion; will refer to Pulmonology recs -Consulted nutrition (06/14/2021) for initiation of PPN. #COVID-19 pneumonia #Left lower lobe cavititation #Left lower lobe abscess -CT abdomen pelvis revealed severe bilateral pneumonia and a cavitary lesion in the left lower lobe -likely secondary to aspiration during ileus -CT chest (06/12/2021) revealing cavitary lesion in LLL approximately 5x6cm and diffusse ground-glass opacities consistent with COVID-19 infection (prior) -CRP 19.6 and procal 24.30, repeat pending -continue vancomycin, cefepime and flagyl per ID recommendations -will reorder MRSA PCR; if negative, will discontinue vancomycin -ID plans to treat abscess for a total of 3 weeks (IV while inpatient and po upon discharge). Would be discharged with Augmentin 875/125mg q12hrs (total 3 week course ends on 06/29/2021. -completed azithromycin and Rocephin in past #Severe sepsis- improving -repeat blood cultures no growth to date -procalcitonin 24.30, repeat pending -continue vancomycin, cefepime and flagyl -s/p zosyn -likely 2/2 to PNA #Hypocalcemia -Calcium 7.8 -Repleted; continue to monitor #COVID-19 infection -Diagnosed on 05/11 -s/p 10 days of steroids, restarted on 06/04 due to worsening Pulmonary status -Tapering steroids per ID recommendations #Tumazddsxbbmt-[id number] secondary to poor oral intake #Acute encephalopathy-Resolved #ANGELES, resolved #Hyperkalemia, resolved #Ileus-resolved #Lactic acidosis-resolved #Discharge planning -Patient and family agreed to the home with home health upon discharge -will continue to wean oxygen to at least 4 L/min prior to discharge Disposition Plan: Continue medical management. Possible transfer to regular floor tomorrow. Total Time Spent with Patient (Minutes): 40 History Interval history: The patient had an acute episode of worsening respiratory status with a respiratory rate in the mid 50s. Patient was evaluated and found to have an ABG within normal limits, no acute changes on chest x-ray, and no concern for aspiration or pulmonary embolism. The patient was transferred to the [facility] for higher level of care. Hospitalist Physical - Constitutional Vitals: Temp Pulse Resp BP Pulse Ox 97.8 F 81 28 H 161/82 96 06/14/21 08:00 06/14/21 08:41 06/14/21 08:41 06/14/21 06:00 06/14/21 08:44 General appearance: Present: no acute distress, cachectic - EENT Eyes: Present: PERRL, EOM intact ENT: hearing intact, clear oral mucosa - Neck Neck: Present: supple, normal ROM - Respiratory Respiratory effort: normal (Currently on BiPAP) Respiratory: bilateral: diminished, rhonchi - Cardiovascular Rhythm: regular Heart Sounds: Present: S1 & S2 - Extremities Extremities: no ischemia, pulses intact, pulses symmetrical, No edema, normal temperature, normal color Extremity abnormal: other (PICC placed in right upper extremity) Peripheral Pulses: within normal limits - Abdominal General gastrointestinal: soft, non-tender, non-distended, normal bowel sounds - Integumentary Integumentary: Present: clear, warm, dry - Psychiatric Psychiatric: appropriate mood/affect, intact judgment & insight, memory intact, cooperative - Neurologic Neurologic: CNII-XII intact, moves all extremities - Allied Health Allied health notes reviewed: nursing HEART Score - HEART Score EKG: Non-specific Age: 45-65 Risk factors: 1-2 risk factors Troponin: Troponin T < 0.010 ng/mL (0.00-0.029) 05/23/21 18:48 - Critical Actions Critical Actions: 0-3 pts:0.9-1.7%risk of adverse cardiac event.Candidate for discharge Results - Labs CBC & Chem 7: 06/14/21 04:29 06/14/21 04:29 Labs: Laboratory Last Values WBC 4.2 K/mm3 (4.5-11.0) L 06/14/21 04:29 RBC 3.21 M/mm3 (3.65-5.03) L 06/14/21 04:29 Hgb 8.7 gm/dl (11.8-15.2) L 06/14/21 04:29 Hct 26.7 % (35.5-45.6) L 06/14/21 04:29 MCV 83 fl (84-94) L 06/14/21 04:29 MCH 27 pg (28-32) L 06/14/21 04:29 MCHC 33 % (32-34) 06/14/21 04:29 RDW 15.3 % (13.2-15.2) H 06/14/21 04:29 Plt Count 87 K/mm3 (140-440) L 06/14/21 04:29 Lymph % (Auto) Structural Designer 06/01/21 07:10 [place] % (Auto) Structural Designer 06/01/21 07:10 Eos % (Auto) Structural Designer 06/01/21 07:10 Baso % (Auto) Structural Designer 06/01/21 07:10 Lymph # (Auto) Structural Designer 06/01/21 07:10 [place] # (Auto) Structural Designer 06/01/21 07:10 Eos # (Auto) Structural Designer 06/01/21 07:10 Baso # (Auto) Structural Designer 06/01/21 07:10 Add Manual Diff Complete 06/14/21 04:29 Total Counted 100 06/14/21 04:29 Seg Neutrophils % Structural Designer 06/14/21 04:29 Seg Neuts % (Manual) 96 % (40.0-70.0) H 06/14/21 04:29 Band Neutrophils % 1.0 % 06/14/21 04:29 Lymphocytes % (Manual) 2 % (13.4-35.0) L 06/14/21 04:29 Reactive Lymphs % (Man) 1.0 % 06/01/21 07:10 Monocytes % (Manual) 1.0 % (0.0-7.3) 06/14/21 04:29 Myelocytes % 1.0 % 06/13/21 06:05 Nucleated RBC % Not Reportable 06/14/21 04:29 Seg Neutrophils # Structural Designer 06/01/21 07:10 Seg Neutrophils # Man 4.0 K/mm3 (1.8-7.7) 06/14/21 04:29 Band Neutrophils # 0.0 K/mm3 06/14/21 04:29 Lymphocytes # (Manual) 0.0 K/mm3 (1.2-5.4) L 06/14/21 04:29 Abs React Lymphs (Man) 0.0 K/mm3 06/14/21 04:29 Monocytes # (Manual) 0.0 K/mm3 (0.0-0.8) 06/14/21 04:29 Eosinophils # (Manual) 0.0 K/mm3 (0.0-0.4) 06/14/21 04:29 Basophils # (Manual) 0.0 K/mm3 (0.0-0.1) 06/14/21 04:29 Metamyelocytes # 0.0 K/mm3 06/14/21 04:29 Myelocytes # 0.0 K/mm3 06/14/21 04:29 Promyelocytes # 0.0 K/mm3 06/14/21 04:29 Blast Cells # 0.0 K/mm3 06/14/21 04:29 WBC Morphology Not Reportable 06/14/21 04:29 Hypersegmented Neuts Not Reportable 06/14/21 04:29 Hyposegmented Neuts Not Reportable 06/14/21 04:29 Hypogranular Neuts Not Reportable 06/14/21 04:29 Smudge Cells Not Reportable 06/14/21 04:29 Toxic Granulation Not Reportable 06/14/21 04:29 Toxic Vacuolation Not Reportable 06/14/21 04:29 Dohle Bodies Not Reportable 06/14/21 04:29 Pelger-Huet Anomaly Not Reportable 06/14/21 04:29 Kaci Rods Not Reportable 06/14/21 04:29 Platelet Estimate Not Reportable 06/14/21 04:29 Clumped Platelets Not Reportable 06/14/21 04:29 Plt Clumps, EDTA Not Reportable 06/14/21 04:29 Large Platelets Not Reportable 06/14/21 04:29 Giant Platelets Not Reportable 06/14/21 04:29 Platelet Satelliting Not Reportable 06/14/21 04:29 Plt Morphology Comment Not Reportable 06/14/21 04:29 RBC Morphology Not Reportable 06/14/21 04:29 Dimorphic RBCs Not Reportable 06/14/21 04:29 Polychromasia Not Reportable 06/14/21 04:29 Hypochromasia Not Reportable 06/14/21 04:29 Poikilocytosis Not Reportable 06/14/21 04:29 Anisocytosis Few 06/14/21 04:29 Microcytosis Not Reportable 06/14/21 04:29 Macrocytosis Not Reportable 06/14/21 04:29 Spherocytes Not Reportable 06/14/21 04:29 Pappenheimer Bodies Not Reportable 06/14/21 04:29 Sickle Cells Not Reportable 06/14/21 04:29 Target Cells Not Reportable 06/14/21 04:29 Tear Drop Cells Not Reportable 06/14/21 04:29 Ovalocytes Not Reportable 06/14/21 04:29 Helmet Cells Not Reportable 06/14/21 04:29 [place] Bodies Not Reportable 06/14/21 04:29 [place] Rings Not Reportable 06/14/21 04:29 [place] Cells Not Reportable 06/14/21 04:29 Bite Cells Not Reportable 06/14/21 04:29 Crenated Cell Not Reportable 06/14/21 04:29 Elliptocytes Not Reportable 06/14/21 04:29 Acanthocytes (Spur) Not Reportable 06/14/21 04:29 Rouleaux Not Reportable 06/14/21 04:29 Hemoglobin C Crystals Not Reportable 06/14/21 04:29 Schistocytes Not Reportable 06/14/21 04:29 Malaria parasites Not Reportable 06/14/21 04:29 Dick Bodies Not Reportable 06/14/21 04:29 Hem Pathologist Commnt No 06/14/21 04:29 D-Dimer 3584.01 ng/mlDDU (0-234) H 05/27/21 08:09 ABG pH 7.408 (7.320-7.450) 06/13/21 11:51 POC ABG pCO2 42.7 mmHg (32.0-48.0) 06/13/21 11:51 ABG pCO2 29.0 mm Hg 05/30/21 22:32 POC ABG pO2 48.3 mmHg (83-108) L 06/13/21 11:51 ABG pO2 141.8 mm Hg (80.0-90.0) H 05/30/21 22:32 POC ABG HCO3 26.3 06/13/21 11:51 ABG HCO3 19.9 mmol/L (20.0-26.0) L 05/30/21 22:32 ABG O2 Saturation 84.9 (0-100) 06/13/21 11:51 ABG O2 Content 19.9 (0.0-44) 05/30/21 22:32 POC ABG Base Excess 1.5 06/13/21 11:51 ABG Base Excess -2.7 mmol/L (-2.0-3.0) L 05/30/21 22:32 ABG Hemoglobin 10.7 (12.0-17.5) L 06/13/21 11:51 ABG Oxyhemoglobin 84.1 (94-98) L 06/13/21 11:51 ABG Carboxyhemoglobin 1.1 % (0.0-5.0) 05/30/21 22:32 ABG Methemoglobin 0.3 (0.0-1.5) 06/13/21 11:51 ABG Sodium 145.5 mmol/L (136.0-145.0) H 06/13/21 11:51 ABG Potassium 3.5 mmol/L (3.40-4.50) 06/13/21 11:51 ABG Chloride 116.0 mmol/L (98-107) H 06/13/21 11:51 ABG Glucose 87 mg/dL (65-95) 06/13/21 11:51 VBG pH 7.254 (7.320-7.420) L 05/24/21 02:09 Oxyhemoglobin 97.1 % (95.0-99.0) 05/30/21 22:32 Carboxyhemoglobin 0.7 (0.5-1.5) 06/13/21 11:51 FiO2 70 % 05/30/21 22:32 FiO2 % 100 06/13/21 11:51 Sodium 148 mmol/L (137-145) H 06/14/21 04:29 Potassium 4.1 mmol/L (3.6-5.0) 06/14/21 04:29 Chloride 115.3 mmol/L (98-107) H 06/14/21 04:29 Carbon Dioxide 22 mmol/L (22-30) 06/14/21 04:29 Anion Gap 15 mmol/L 06/14/21 04:29 BUN 40 mg/dL (9-20) H 06/14/21 04:29 Creatinine 1.3 mg/dL (0.8-1.3) 06/14/21 04:29 Estimated GFR > 60 ml/min 06/14/21 04:29 BUN/Creatinine Ratio 31 % 06/14/21 04:29 Glucose 124 mg/dL (75-100) H 06/14/21 04:29 POC Glucose 106 mg/dL (70-105) H 06/14/21 06:17 Lactic Acid 1.20 mmol/L (0.7-2.0) 06/06/21 00:04 Calcium 8.2 mg/dL (8.4-10.2) L 06/14/21 04:29 Phosphorus 2.70 mg/dL (2.5-4.5) 06/14/21 04:29 Magnesium 2.00 mg/dL (1.7-2.3) 06/14/21 04:29 Ferritin 2742.0 ng/mL (30.0-300.0) H 05/27/21 08:09 Total Bilirubin 0.40 mg/dL (0.1-1.2) 06/10/21 01:52 AST 55 units/L (5-40) H 06/10/21 01:52 ALT 21 units/L (7-56) 06/10/21 01:52 Alkaline Phosphatase 88 units/L (35-129) 06/10/21 01:52 Ammonia 22.0 umol/L (25-60) L 05/23/21 18:48 Lactate Dehydrogenase 642 units/L (91-180) H 05/27/21 08:09 Troponin T < 0.010 ng/mL (0.00-0.029) 05/23/21 18:48 C-Reactive Protein 4.10 mg/dL (0.00-1.30) H 06/09/21 05:51 Total Protein 5.6 g/dL (6.3-8.2) L 06/10/21 01:52 Albumin 1.9 g/dL (3.9-5) L 06/10/21 01:52 Albumin/Globulin Ratio 0.5 % 06/10/21 01:52 Procalcitonin 7.52 ng/mL (<0.15) 06/09/21 05:51 TSH 1.150 mlU/mL (0.270-4.200) 05/23/21 18:48 Arterial Blood Glucose 87 mg/dL (65-95) 06/13/21 11:51 Arterial Blood Ionized Calcium 4.5 mg/dL (4.6-5.3) L 05/29/21 17:58 Urine Color Eli (Yellow) 05/30/21 01:00 Urine Turbidity Cloudy (Clear) 05/30/21 01:00 Urine pH 5.0 (5.0-7.0) 05/30/21 01:00 Ur Specific [place] 1.019 (1.003-1.030) 05/30/21 01:00 Urine Protein 100 mg/dl mg/dL (Negative) 05/30/21 01:00 Urine Glucose (UA) Neg mg/dL (Negative) 05/30/21 01:00 Urine Ketones Neg mg/dL (Negative) 05/30/21 01:00 Urine Blood Mod (Negative) 05/30/21 01:00 Urine Nitrite Neg (Negative) 05/30/21 01:00 Urine Bilirubin Neg (Negative) 05/30/21 01:00 Urine Urobilinogen 4.0 mg/dL (<2.0) 05/30/21 01:00 Ur Leukocyte Esterase Neg (Negative) 05/30/21 01:00 Urine WBC (Auto) 12.0 /HPF (0.0-6.0) H 05/30/21 01:00 Urine RBC (Auto) 21.0 /HPF (0.0-6.0) 05/30/21 01:00 U Epithel Cells (Auto) 2.0 /HPF (0-13.0) 05/30/21 01:00 Uric Acid Crystals Few 05/30/21 01:00 Urine Mucus Few /HPF 05/30/21 01:00 Urine Yeast (Budding) 2+ /HPF 05/30/21 01:00 Vancomycin Trough 22.6 ug/mL (5.0-20.0) H 06/11/21 05:51 Plasma/Serum Alcohol < 0.01 % (0-0.07) 05/23/21 18:48 Proteinase 3 (PR3) Ab <1.0 AI (<1.0) 05/24/21 20:57 Myeloperoxidase Ab <1.0 AI (<1.0) 05/24/21 20:57 Complement C3 108 mg/dL (82-185) 05/24/21 20:57 Complement C4 29 mg/dL (15-53) 05/24/21 20:57 Coronavirus (PCR) Negative (Negative) 05/26/21 08:41 Blood Type A POSITIVE 05/29/21 08:15 Antibody Screen Negative 05/29/21 08:15 Heart/IV: Voiding Method Condom Catheter Active Medications - Current Medications Current Medications: Generic Name Dose Route Start Last Admin Trade Name Freq PRN Reason Stop Dose Admin Albuterol/Ipratropium 1 ampul 06/07/21 20:00 06/14/21 08:40 Ipratropium/Albuterol Sulfate 3 Ml Ampul.Neb IH 1 ampul TIDRT MIKE Administration Lipase/Protease/Amylase 1 each 06/03/21 12:23 Lipase 10,500/Protease 25,000/Amylase 43,750 (Units) Dr Rodney FEEDTUBE PRN PRN For Clogged Feeding Tube Heparin Sodium (Porcine) 5,000 unit 05/24/21 06:00 06/14/21 06:05 Heparin 5,000 Unit/1 Ml Vial SUB-Q 5,000 unit Q8HR MIKE Administration Metronidazole 500 mg in 100 mls @ 100 mls/hr 06/08/21 13:00 06/14/21 06:05 Flagyl 500 Mg/100 Ml IV 100 mls/hr Q8H MIKE Administration Protocol Cefepime HCl 2 gm in 100 mls @ 200 mls/hr 06/08/21 23:08 06/14/21 06:00 Cefepime/Ns 2 Gm/100 Ml IV 200 mls/hr Q8HR MIKE Administration Protocol Dextrose 1,000 mls @ 75 mls/hr 06/13/21 07:00 06/13/21 21:06 D5w IV 75 mls/hr DIRECT MIKE Administration Vancomycin HCl 1 gm in 250 mls @ 167.007 mls/hr 06/14/21 22:00 Vancomycin/Ns 1 Gm/250 Ml IV Q24H MIKE Methylprednisolone Sodium Succinate 20 mg 06/13/21 22:00 06/14/21 09:54 Methylprednisolone Sod Succinate 40 Mg/1 Ml Inj IV 20 mg Q12HR MIKE Administration Morphine Sulfate 2 mg 05/23/21 22:01 06/14/21 00:20 Morphine 2 Mg/1 Ml Inj IV 2 mg Q4H PRN Administration Pain, Moderate (4-6) Ondansetron HCl 4 mg 06/04/21 13:41 06/09/21 22:05 Ondansetron 4 Mg/2 Ml Inj IV 4 mg Q4H PRN Administration Nausea And Vomiting Sodium Chloride 10 ml 05/23/21 22:01 Sodium Chloride 0.9% 10 Ml Flush Syringe IV PRN PRN LINE FLUSH Nutrition/Malnutrition Assess - Dietary Evaluation Nutrition/Malnutrition Findings: Nutrition Notes Start: 05/25/21 09:33 Freq: Status: Active Protocol: Document 06/09/21 17:54 GB (Rec: 06/09/21 18:04 GB [id number]) Nutrition Notes Initial or Follow up Reassessment Current Diagnosis Sepsis Other Pertinent Diagnosis COVID-19 (+), pneu, ?ileus Current Diet Mechanical soft with thin liquids Labs/Tests 06/09: BUN 32, glucose 137, Ca 7.5, AST 55 Pertinent Medications D5 @ 75ml/hr (306kcal), heparinNa, NaCl, vancomycin Height 5 ft 11 in Weight 63 kg [place] Body Weight (kg) 78.18 BMI 19.3 Weight change and time frame 05/24: 77.111kg 06/08: 63kg Change of -14.111kg for -18.2% over 3 weeks r/t COVID+ complications Weight Status Appropriate Subjective/Other Information Diet advanced to mechancial soft with thin liquids. Per chart: diet tolerated well. Family agrees to home with home health. Percent of energy/protein needs met: PO intake of meals at 50% or greater meets 75% of estimated energy needs. Burn Absent Trauma Absent GI Symptoms Vomiting,Constipation Food Allergy No Skin Integrity/Comment No complications reported Current % PO Good (75-100%) Minimum of two criteria No #1 Nutrition Diagnosis Inadequate oral intake Comments: Nutritional supplement beverage ordered 06/03: TF ordered 06/09: diet advanced to mechanical soft, thin liquids. Tolerating well Etiology acute illness As Evidenced by Signs and Symptoms decreased PO for 10-12 days SEARCH OPTIMIZATION ANALYST 06/03: TF required to meet needs. 06/09: Diet advanced on 06/07 Diagnosis Progress(for reassessment Resolved documentation) Is patient on ventilator? No Is Patient Ambulatory and/or Out of Bed No REE-(Rabun-StDonovan Meng-confined to bed) 1789.080 Kcal/Kg value to use for calculation 25 Approximate Energy Requirements Using 1575 kcal/Kg Calculation Used for Recommendations Kcal/kg Additional Notes Pro needs 1-1.5g/kg @63k- 95g/day Fluid needs 1ml/kcal Nutrition Intervention Change Diet Order: continue Nutrition Support: n/a Goal #1 PO intake of meals to be 50% or greater TID daily for LOS Goal #2 Weight to maintain within +/-3 % current weight for LOS 06/09: weight change r/t COVID+ at -18% Anticipated Discharge Needs: home with home health Follow-Up By: 06/16/21 Additional Comments F/U: PO intake, weight
[2021-06-14] MEDS: DEXTROSE 5% IN WATER 1,000 ML IV SCH (13:24)
--- NOTE | 2021-06-14 15:16 | Progress Note ---
Assessment and Plan 55-year-old -[place] male who was diagnosed with COVID-19 on May 11, 2021 presents to the emergency room today with complaints of shortness of breath and decreased oral intake over the past 10 to 12 days. Patient also has known history of CVA about 20 years ago and it is unknown whether patient had any residual deficits. Patient has not been able to communicate well and most of the history was gotten from the ER staff. Initial oxygen saturation according to EMS was about 70% and patient was placed on nonrebreather. He was eventually placed on oxygen by nasal cannula upon arrival in the emergency room with significant improvement in his oxygen saturation. Work-up in the emergency room reveals a D-dimer greater than 10,000, sodium 151 potassium of 5.1, BUN of 180) and creatinine of 4.3. Patient had a lactic acid of 2.3. WBC was 11.8. CT scan of the head shows no acute abnormality. Chest x-ray shows mild patchy multifocal airspace disease throughout the lungs. No pleural effusion. VQ scan done showed low probability for pulmonary embolism. Patient being admitted with pneumonia possibly secondary to COVID-19, hypoxia and encephalopathy. Patients COVID 19 PCR reported negative. Patient Awake . Patient is on on BIPAP 20/15, rate 14, FIO2 90% and O2 saturation running 100%. Patient afebrile. No Leukocytosis. Blood pressure 143/91, Pulse 109. Chest xray 06/03/21: reported diffuse hazy airspace opacities bilaterally, mildly worsened compared to reference exam. No pneumothorax. Chest xray 06/09/21: reported slightly improved bilateral pulmonary opacities. No pneumothorax. Patients CAT scan of abdomen done 0n 06/06/21 reported Severe aspiration type pneumonia identified throughout both lower lungs with cavitary lesion within the left lower lobe measuring about [address] of chest done on 06/12/21 reported 1. Diffuse groundglass densities with pulmonary edema, septal thickening and bilateral pulmonary infiltrates are noted in bilateral lungs. Findings could represent viral/Covid pneumonia, atypical pneumonia, nonspecific. 2. Cavitary process within the left lower lung measuring 5.5 x 4.4 cm. Findings could be related to infection, abscess however follow-up after treatment to exclude malignancy. Chest xray done 06/13/21 reported 1. Diffuse groundglass densities with pulmonary edema, septal thickening and bilateral pulmonary infiltrates are noted in bilateral lungs. Findings could represent viral/Covid pneumonia, atypical pneumonia, nonspecific. 2. Cavitary process within the left lower lung measuring 5.5 x 4.4 cm. Findings could be related to infection, abscess however follow-up after treatment to exclude malignancy. BIPAP settings change to 20/10, rate 14, FIO2 90% Patient presently on Cefepime, Flagyl, Vancomycin, I/V solumedrol and S/C Heparin, and albuterol/atrovent aerosol treatments. I spent critical care time of 37 minutes, reviewing the chart, examine the patient, review CAT scan of chest, lab results, talking to the respiratory th erapy and nursing staff and work up plan of treatment in this critically ill patient. - Patient Problems (1) Acute respiratory failure with hypoxia Current Visit: Yes Status: Acute Plan to address problem: BIPAP 20/10, rate 14, FIO2 90% Continue I/V solumedrol. Continue S/C heparin. Recommend GI prophylaxis. Continue albuterol/atrovent aerosol treatments. (2) Abscess of left lung with pneumonia Current Visit: Yes Status: Acute Plan to address problem: Pneumonia and abscess likely from aspiration. Patient is on cefepime, Flagyl and vancomycin. (3) Suspected 2019 novel coronavirus infection Current Visit: Yes Status: Acute Plan to address problem: Patient coronavirus PCR is negative. Subjective Date of service: 06/14/21 Principal diagnosis: Acute hypoxemic resp failure; Pneumonia; PUI COVID-19 infection Interval history: 55-year-old -[place] male who was diagnosed with COVID-19 on May 11, 2021 presents to the emergency room today with complaints of shortness of breath and decreased oral intake over the past 10 to 12 days. Patient also has known history of CVA about 20 years ago and it is unknown whether patient had any residual deficits. Patient has not been able to c ommunicate well and most of the history was gotten from the ER staff. Initial oxygen saturation according to EMS was about 70% and patient was placed on nonrebreather. He was eventually placed on oxygen by nasal cannula upon arrival in the emergency room with significant improvement in his oxygen s aturation. Work-up in the emergency room reveals a D-dimer greater than 10,000, sodium 151 potassium of 5.1, BUN of 180) and creatinine of 4.3. Patient had a lactic acid of 2.3. WBC was 11.8. CT scan of the head shows no acute abnormality. Chest x-ray shows mild patchy multifocal airspace disease throughout the lungs. No pleural effusion. VQ scan done showed low probability for pulmonary embolism. Patient being admitted with pneumonia possibly secondary to COVID-19, hypoxia and encephalopathy. Patients COVID 19 PCR reported negative. Patient Awake . Patient is on on BIPAP 20/15, rate 14, FIO2 90% and O2 saturation running 100%. Patient afebrile. No Leukocytosis. Blood pressure 143/91, Pulse 109. Chest xray 06/03/21: reported diffuse hazy airspace opacities bilaterally, mildly worsened compared to reference exam. No pneumothorax. Chest xray 06/09/21: reported slightly improved bilateral pulmonary opacities. No pneumothorax. Patients CAT scan of abdomen done 0n 06/06/21 reported Severe aspiration type pneumonia identified throughout both lower lungs with cavitary lesion within the left lower lobe measuring about [address] of chest done on 06/12/21 reported 1. Diffuse groundglass densities with pulmonary edema, septal thickening and bilateral pulmonary infiltrates are noted in bilateral lungs. Findings could represent viral/Covid pneumonia, atypical pneumonia, nonspecific. 2. Cavitary process within the left lower lung measuring 5.5 x 4.4 cm. Findings could be related to infection, abscess however follow-up after treatment to exclude malignancy. Chest xray done 06/13/21 reported 1. Diffuse groundglass densities with pulmonary edema, septal thickening and bilateral pulmonary infiltrates are noted in bilateral lungs. Findings could represent viral/Covid pneumonia, atypical pneumonia, nonspecific. 2. Cavitary process within the left lower lung measuring 5.5 x 4.4 cm. Findings could be related to infection, abscess however follow-up after treatment to exclude malignancy. Change bipap settings to 20/10, rate 14, FIO2 90%. Patient presently on Cefepime, Flagyl, Vancomycin, I/V solumedrol and S/C Heparin, and albuterol/atrovent aerosol treatments. Objective Vital Signs - 12hr 06/14/21 06/14/21 06/14/21 04:00 04:10 04:20 Temperature Pulse Rate 65 75 62 Pulse Rate [ Anterior Bilateral Throughout] Pulse Rate [ From Monitor] Respiratory 19 21 Rate Respiratory Rate [Anterior Bilateral Throughout] Blood Pressure 151/82 O2 Sat by Pulse 100 100 Oximetry 06/14/21 06/14/21 06/14/21 05:00 06:00 07:00 Temperature Pulse Rate 61 68 74 Pulse Rate [ Anterior Bilateral Throughout] Pulse Rate [ 110 H From Monitor] Respiratory 17 22 22 Rate Respiratory Rate [Anterior Bilateral Throughout] Blood Pressure 156/81 161/82 158/87 O2 Sat by Pulse 100 99 100 Oximetry 06/14/21 06/14/21 06/14/21 08:00 08:30 08:41 Temperature 97.8 F Pulse Rate 73 78 Pulse Rate [ 81 Anterior Bilateral Throughout] Pulse Rate [ From Monitor] Respiratory 23 28 H Rate Respiratory 28 H Rate [Anterior Bilateral Throughout] Blood Pressure 156/84 O2 Sat by Pulse 98 98 Oximetry 06/14/21 06/14/21 06/14/21 08:44 09:00 10:00 Temperature Pulse Rate 85 109 H Pulse Rate [ Anterior Bilateral Throughout] Pulse Rate [ From Monitor] Respiratory 31 H 37 H Rate Respiratory Rate [Anterior Bilateral Throughout] Blood Pressure 156/84 153/77 O2 Sat by Pulse 96 95 91 Oximetry 06/14/21 06/14/21 06/14/21 12:00 12:15 14:40 Temperature 97.9 F Pulse Rate 109 H Pulse Rate [ 112 H Anterior Bilateral Throughout] Pulse Rate [ From Monitor] Respiratory 29 H Rate Respiratory 24 Rate [Anterior Bilateral Throughout] Blood Pressure 143/91 O2 Sat by Pulse 100 98 Oximetry Constitutional: alert, appears uncomfortable, other (middle aged male with mildly increased respiratory effort at rest on BIPAP) Eyes: non-icteric ENT: oropharynx moist, other (BIPAP FFM) Neck: supple, no JVD Effort: mildly labored Ascultation: Bilateral: diminished breath sounds (bases), rhonchi Percussion: Bilateral: not dull Cardiovascular: regular rate and rhythm Gastrointestinal: hypoactive bowel sounds, soft, non-tender, other (distended but very soft) Integumentary: normal Extremities: no cyanosis, no edema, pulses normal, no ischemia or petechiae Neurologic: pupils equal and round, CN II-XII normal, other (somnolent) Psychiatric: other (flat affect) CBC and BMP: 06/14/21 04:29 06/14/21 04:29 ABG, PT/INR, D-dimer: ABG ABG pH 7.408 (7.320-7.450) 06/13/21 11:51 POC ABG pCO2 42.7 mmHg (32.0-48.0) 06/13/21 11:51 ABG pCO2 29.0 mm Hg 05/30/21 22:32 POC ABG pO2 48.3 mmHg (83-108) L 06/13/21 11:51 ABG pO2 141.8 mm Hg (80.0-90.0) H 05/30/21 22:32 POC ABG HCO3 26.3 06/13/21 11:51 ABG O2 Saturation 84.9 (0-100) 06/13/21 11:51 PT/INR, D-dimer D-Dimer 3584.01 ng/mlDDU (0-234) H 05/27/21 08:09 Abnormal lab findings: Abnormal Labs 05/23/21 05/23/21 05/23/21 18:48 18:48 18:48 WBC 11.8 H RBC 5.18 H Hgb Hct MCV MCH MCHC RDW Plt Count Seg Neuts % (Manual) 84.0 H Lymphocytes % (Manual) Monocytes % (Manual) Nucleated RBC % Seg Neutrophils # Man 9.9 H Lymphocytes # (Manual) D-Dimer > 72797 H ABG pH POC ABG pCO2 POC ABG pO2 ABG pO2 ABG HCO3 ABG Base Excess ABG Hemoglobin ABG Oxyhemoglobin ABG Sodium ABG Potassium ABG Chloride ABG Glucose VBG pH Carboxyhemoglobin Sodium Potassium Chloride Carbon Dioxide BUN Creatinine Glucose POC Glucose Lactic Acid 2.30 H* Calcium Phosphorus Magnesium Ferritin AST Ammonia Lactate Dehydrogenase C-Reactive Protein Total Protein Albumin Arterial Blood Glucose Arterial Blood Ionized Calcium Urine WBC (Auto) Vancomycin Trough 05/23/21 05/23/21 05/23/21 18:48 18:48 18:48 WBC RBC Hgb Hct MCV MCH MCHC RDW Plt Count Seg Neuts % (Manual) Lymphocytes % (Manual) Monocytes % (Manual) Nucleated RBC % Seg Neutrophils # Man Lymphocytes # (Manual) D-Dimer ABG pH POC ABG pCO2 POC ABG pO2 ABG pO2 ABG HCO3 ABG Base Excess ABG Hemoglobin ABG Oxyhemoglobin ABG Sodium ABG Potassium ABG Chloride ABG Glucose VBG pH Carboxyhemoglobin Sodium 151 H Potassium 5.1 H Chloride 113.2 H Carbon Dioxide 17 L BUN 180 H Creatinine 4.3 H Glucose 114 H POC Glucose Lactic Acid Calcium Phosphorus Magnesium Ferritin 2000.0 H AST Ammonia 22.0 L Lactate Dehydrogenase 577 H C-Reactive Protein 8.80 H Total Protein 9.4 H Albumin 3.0 L Arterial Blood Glucose Arterial Blood Ionized Calcium Urine WBC (Auto) Vancomycin Trough 05/23/21 05/24/21 05/24/21 21:06 02:09 02:09 WBC RBC Hgb Hct MCV MCH MCHC RDW Plt Count Seg Neuts % (Manual) Lymphocytes % (Manual) Monocytes % (Manual) Nucleated RBC % Seg Neutrophils # Man Lymphocytes # (Manual) D-Dimer ABG pH POC ABG pCO2 POC ABG pO2 ABG pO2 ABG HCO3 ABG Base Excess ABG Hemoglobin ABG Oxyhemoglobin ABG Sodium ABG Potassium ABG Chloride ABG Glucose VBG pH 7.254 L Carboxyhemoglobin Sodium Potassium Chloride Carbon Dioxide BUN Creatinine Glucose POC Glucose Lactic Acid 2.10 H* 2.30 H* Calcium Phosphorus Magnesium Ferritin AST Ammonia Lactate Dehydrogenase C-Reactive Protein Total Protein Albumin Arterial Blood Glucose Arterial Blood Ionized Calcium Urine WBC (Auto) Vancomycin Trough 05/24/21 05/24/21 05/24/21 13:11 17:34 18:12 WBC RBC Hgb Hct MCV MCH MCHC RDW Plt Count Seg Neuts % (Manual) Lymphocytes % (Manual) Monocytes % (Manual) Nucleated RBC % Seg Neutrophils # Man Lymphocytes # (Manual) D-Dimer ABG pH POC ABG pCO2 POC ABG pO2 ABG pO2 ABG HCO3 ABG Base Excess ABG Hemoglobin ABG Oxyhemoglobin ABG Sodium ABG Potassium ABG Chloride ABG Glucose VBG pH Carboxyhemoglobin Sodium 155 H Potassium 6.9 H* D 5.7 H Chloride 121.9 H Carbon Dioxide 20 L BUN 139 H Creatinine 2.7 H Glucose 139 H POC Glucose 153 H Lactic Acid Calcium Phosphorus Magnesium Ferritin AST Ammonia Lactate Dehydrogenase C-Reactive Protein Total Protein Albumin Arterial Blood Glucose Arterial Blood Ionized Calcium Urine WBC (Auto) Vancomycin Trough 05/25/21 05/25/21 05/26/21 11:33 11:33 03:15 WBC 13.8 H RBC 5.06 H Hgb Hct MCV MCH MCHC RDW Plt Count Seg Neuts % (Manual) Lymphocytes % (Manual) Monocytes % (Manual) Nucleated RBC % Seg Neutrophils # Man Lymphocytes # (Manual) D-Dimer ABG pH POC ABG pCO2 POC ABG pO2 ABG pO2 ABG HCO3 ABG Base Excess ABG Hemoglobin ABG Oxyhemoglobin ABG Sodium ABG Potassium ABG Chloride ABG Glucose VBG pH Carboxyhemoglobin Sodium 164 H* D 166 H* Potassium 5.4 H 5.5 H Chloride 131.3 H 129.2 H Carbon Dioxide BUN 109 H 102 H Creatinine 1.9 H 1.8 H Glucose 117 H 113 H POC Glucose Lactic Acid Calcium Phosphorus Magnesium Ferritin AST Ammonia Lactate Dehydrogenase 711 H C-Reactive Protein 7.90 H Total Protein Albumin Arterial Blood Glucose Arterial Blood Ionized Calcium Urine WBC (Auto) Vancomycin Trough 05/26/21 05/26/21 05/26/21 03:15 03:15 03:15 WBC 13.1 H RBC 5.43 H Hgb 15.3 H Hct 48.5 H MCV MCH MCHC RDW 15.4 H Plt Count Seg Neuts % (Manual) Lymphocytes % (Manual) Monocytes % (Manual) Nucleated RBC % Seg Neutrophils # Man Lymphocytes # (Manual) D-Dimer 6229.14 H ABG pH POC ABG pCO2 POC ABG pO2 ABG pO2 ABG HCO3 ABG Base Excess ABG Hemoglobin ABG Oxyhemoglobin ABG Sodium ABG Potassium ABG Chloride ABG Glucose VBG pH Carboxyhemoglobin Sodium Potassium Chloride Carbon Dioxide BUN Creatinine Glucose POC Glucose Lactic Acid Calcium Phosphorus Magnesium Ferritin 2991.0 H AST Ammonia Lactate Dehydrogenase C-Reactive Protein Total Protein Albumin Arterial Blood Glucose Arterial Blood Ionized Calcium Urine WBC (Auto) Vancomycin Trough 05/27/21 05/27/21 05/27/21 08:09 08:09 08:09 WBC 12.4 H RBC 5.27 H Hgb Hct 46.6 H MCV MCH MCHC 31 L RDW 15.7 H Plt Count Seg Neuts % (Manual) Lymphocytes % (Manual) Monocytes % (Manual) Nucleated RBC % Seg Neutrophils # Man Lymphocytes # (Manual) D-Dimer 3584.01 H ABG pH POC ABG pCO2 POC ABG pO2 ABG pO2 ABG HCO3 ABG Base Excess ABG Hemoglobin ABG Oxyhemoglobin ABG Sodium ABG Potassium ABG Chloride ABG Glucose VBG pH Carboxyhemoglobin Sodium 174 H* Potassium Chloride 136.9 H Carbon Dioxide BUN 90 H Creatinine 1.8 H Glucose POC Glucose Lactic Acid Calcium Phosphorus Magnesium Ferritin AST Ammonia Lactate Dehydrogenase 642 H C-Reactive Protein 5.20 H Total Protein Albumin Arterial Blood Glucose Arterial Blood Ionized Calcium Urine WBC (Auto) Vancomycin Trough 05/27/21 05/28/21 05/28/21 08:09 07:31 07:31 WBC RBC Hgb Hct MCV MCH 27 L MCHC 31 L RDW Plt Count Seg Neuts % (Manual) 88.0 H Lymphocytes % (Manual) 11.0 L Monocytes % (Manual) Nucleated RBC % Seg Neutrophils # Man 8.3 H Lymphocytes # (Manual) 1.0 L D-Dimer ABG pH POC ABG pCO2 POC ABG pO2 ABG pO2 ABG HCO3 ABG Base Excess ABG Hemoglobin ABG Oxyhemoglobin ABG Sodium ABG Potassium ABG Chloride ABG Glucose VBG pH Carboxyhemoglobin Sodium 162 H* D Potassium Chloride 125.8 H Carbon Dioxide BUN 72 H Creatinine 1.6 H Glucose 131 H POC Glucose Lactic Acid Calcium Phosphorus Magnesium 3.00 H Ferritin 2742.0 H AST Ammonia Lactate Dehydrogenase C-Reactive Protein Total Protein Albumin Arterial Blood Glucose Arterial Blood Ionized Calcium Urine WBC (Auto) Vancomycin Trough 05/29/21 05/29/21 05/29/21 06:40 06:40 17:58 WBC 14.1 H RBC Hgb Hct MCV MCH 27 L MCHC 31 L RDW Plt Count Seg Neuts % (Manual) 85.0 H Lymphocytes % (Manual) 9.0 L Monocytes % (Manual) Nucleated RBC % 1.0 H Seg Neutrophils # Man 12.0 H Lymphocytes # (Manual) D-Dimer ABG pH 7.505 H POC ABG pCO2 30.3 L POC ABG pO2 128.1 H ABG pO2 ABG HCO3 ABG Base Excess ABG Hemoglobin 11.9 L ABG Oxyhemoglobin ABG Sodium ABG Potassium ABG Chloride 113.0 H ABG Glucose 110 H VBG pH Carboxyhemoglobin Sodium 148 H D Potassium Chloride 111.3 H Carbon Dioxide 20 L BUN 45 H Creatinine Glucose POC Glucose Lactic Acid Calcium Phosphorus 2.10 L D Magnesium Ferritin AST Ammonia Lactate Dehydrogenase C-Reactive Protein Total Protein Albumin Arterial Blood Glucose 110 H Arterial Blood Ionized Calcium 4.5 L Urine WBC (Auto) Vancomycin Trough 05/30/21 05/30/21 05/30/21 01:00 06:06 13:48 WBC RBC Hgb Hct MCV MCH MCHC RDW Plt Count Seg Neuts % (Manual) Lymphocytes % (Manual) Monocytes % (Manual) Nucleated RBC % Seg Neutrophils # Man Lymphocytes # (Manual) D-Dimer ABG pH POC ABG pCO2 POC ABG pO2 ABG pO2 90.9 H ABG HCO3 ABG Base Excess ABG Hemoglobin 11.8 L ABG Oxyhemoglobin ABG Sodium ABG Potassium ABG Chloride ABG Glucose VBG pH Carboxyhemoglobin Sodium 150 H Potassium Chloride 117.6 H Carbon Dioxide BUN 40 H Creatinine Glucose POC Glucose Lactic Acid Calcium 8.3 L Phosphorus Magnesium Ferritin AST Ammonia Lactate Dehydrogenase C-Reactive Protein Total Protein Albumin Arterial Blood Glucose Arterial Blood Ionized Calcium Urine WBC (Auto) 12.0 H Vancomycin Trough 05/30/21 05/31/21 05/31/21 22:32 02:22 02:22 WBC RBC Hgb 11.2 L Hct 34.8 L MCV MCH MCHC RDW Plt Count 127 L Seg Neuts % (Manual) 97.0 H Lymphocytes % (Manual) Monocytes % (Manual) Nucleated RBC % Seg Neutrophils # Man 10.5 H Lymphocytes # (Manual) 0.0 L D-Dimer ABG pH 7.454 H POC ABG pCO2 POC ABG pO2 ABG pO2 141.8 H ABG HCO3 19.9 L ABG Base Excess -2.7 L ABG Hemoglobin ABG Oxyhemoglobin ABG Sodium ABG Potassium ABG Chloride ABG Glucose VBG pH Carboxyhemoglobin Sodium 152 H Potassium Chloride 118.9 H Carbon Dioxide 19 L BUN 48 H Creatinine 1.5 H Glucose 101 H POC Glucose Lactic Acid Calcium 8.3 L Phosphorus Magnesium Ferritin AST Ammonia Lactate Dehydrogenase C-Reactive Protein Total Protein Albumin Arterial Blood Glucose Arterial Blood Ionized Calcium Urine WBC (Auto) Vancomycin Trough 05/31/21 05/31/21 06/01/21 11:42 21:28 07:10 WBC RBC Hgb Hct MCV MCH MCHC RDW Plt Count Seg Neuts % (Manual) Lymphocytes % (Manual) Monocytes % (Manual) Nucleated RBC % Seg Neutrophils # Man Lymphocytes # (Manual) D-Dimer ABG pH POC ABG pCO2 POC ABG pO2 ABG pO2 ABG HCO3 ABG Base Excess ABG Hemoglobin ABG Oxyhemoglobin ABG Sodium ABG Potassium ABG Chloride ABG Glucose VBG pH Carboxyhemoglobin Sodium 150 H Potassium Chloride 115.7 H Carbon Dioxide BUN 47 H Creatinine Glucose 115 H POC Glucose 161 H Lactic Acid Calcium Phosphorus Magnesium 2.50 H Ferritin AST Ammonia Lactate Dehydrogenase C-Reactive Protein Total Protein Albumin Arterial Blood Glucose Arterial Blood Ionized Calcium Urine WBC (Auto) Vancomycin Trough 20.2 H 06/01/21 06/01/21 06/01/21 07:10 07:54 10:39 WBC RBC Hgb 10.7 L Hct 33.5 L MCV MCH MCHC RDW Plt Count Seg Neuts % (Manual) 92.0 H Lymphocytes % (Manual) 4.0 L Monocytes % (Manual) Nucleated RBC % Seg Neutrophils # Man Lymphocytes # (Manual) 0.3 L D-Dimer ABG pH POC ABG pCO2 POC ABG pO2 ABG pO2 ABG HCO3 ABG Base Excess ABG Hemoglobin ABG Oxyhemoglobin ABG Sodium ABG Potassium ABG Chloride ABG Glucose VBG pH Carboxyhemoglobin Sodium 152 H Potassium Chloride 117.6 H Carbon Dioxide BUN 50 H Creatinine Glucose 140 H POC Glucose 127 H Lactic Acid Calcium 8.3 L Phosphorus Magnesium Ferritin AST Ammonia Lactate Dehydrogenase C-Reactive Protein Total Protein Albumin Arterial Blood Glucose Arterial Blood Ionized Calcium Urine WBC (Auto) Vancomycin Trough 06/01/21 06/01/21 06/01/21 11:11 16:16 21:45 WBC RBC Hgb Hct MCV MCH MCHC RDW Plt Count Seg Neuts % (Manual) Lymphocytes % (Manual) Monocytes % (Manual) Nucleated RBC % Seg Neutrophils # Man Lymphocytes # (Manual) D-Dimer ABG pH POC ABG pCO2 POC ABG pO2 ABG pO2 ABG HCO3 ABG Base Excess ABG Hemoglobin ABG Oxyhemoglobin ABG Sodium ABG Potassium ABG Chloride ABG Glucose VBG pH Carboxyhemoglobin Sodium Potassium Chloride Carbon Dioxide BUN Creatinine Glucose POC Glucose 120 H 129 H 150 H Lactic Acid Calcium Phosphorus Magnesium Ferritin AST Ammonia Lactate Dehydrogenase C-Reactive Protein Total Protein Albumin Arterial Blood Glucose Arterial Blood Ionized Calcium Urine WBC (Auto) Vancomycin Trough 06/02/21 06/02/21 06/02/21 06:53 06:53 07:52 WBC RBC Hgb 10.4 L Hct 32.4 L MCV MCH 27 L MCHC RDW Plt Count Seg Neuts % (Manual) 93.0 H Lymphocytes % (Manual) 3.0 L Monocytes % (Manual) Nucleated RBC % Seg Neutrophils # Man Lymphocytes # (Manual) 0.2 L D-Dimer ABG pH POC ABG pCO2 POC ABG pO2 ABG pO2 ABG HCO3 ABG Base Excess ABG Hemoglobin ABG Oxyhemoglobin ABG Sodium ABG Potassium ABG Chloride ABG Glucose VBG pH Carboxyhemoglobin Sodium 149 H Potassium Chloride 112.6 H Carbon Dioxide BUN 54 H Creatinine Glucose 123 H POC Glucose 116 H Lactic Acid Calcium 8.2 L Phosphorus Magnesium Ferritin AST Ammonia Lactate Dehydrogenase C-Reactive Protein Total Protein Albumin Arterial Blood Glucose Arterial Blood Ionized Calcium Urine WBC (Auto) Vancomycin Trough 06/03/21 06/03/21 06/03/21 05:57 05:57 21:23 WBC RBC Hgb 10.7 L Hct 33.0 L MCV 83 L MCH 27 L MCHC RDW Plt Count Seg Neuts % (Manual) 88.0 H Lymphocytes % (Manual) 8.0 L Monocytes % (Manual) Nucleated RBC % 2.0 H Seg Neutrophils # Man Lymphocytes # (Manual) 0.6 L D-Dimer ABG pH POC ABG pCO2 POC ABG pO2 39.0 L ABG pO2 ABG HCO3 ABG Base Excess ABG Hemoglobin ABG Oxyhemoglobin 69.1 L ABG Sodium 134.1 L ABG Potassium ABG Chloride ABG Glucose 135 H VBG pH Carboxyhemoglobin Sodium Potassium Chloride Carbon Dioxide BUN 36 H Creatinine Glucose 102 H POC Glucose Lactic Acid Calcium 8.0 L Phosphorus 2.20 L D Magnesium Ferritin AST Ammonia Lactate Dehydrogenase C-Reactive Protein Total Protein Albumin Arterial Blood Glucose 135 H Arterial Blood Ionized Calcium Urine WBC (Auto) Vancomycin Trough 06/04/21 06/04/21 06/04/21 07:04 07:04 17:42 WBC RBC Hgb 11.3 L Hct 34.9 L MCV MCH 27 L MCHC RDW Plt Count Seg Neuts % (Manual) Lymphocytes % (Manual) 5.0 L Monocytes % (Manual) Nucleated RBC % Seg Neutrophils # Man 8.4 H Lymphocytes # (Manual) 0.5 L D-Dimer ABG pH POC ABG pCO2 POC ABG pO2 ABG pO2 ABG HCO3 ABG Base Excess ABG Hemoglobin ABG Oxyhemoglobin ABG Sodium ABG Potassium ABG Chloride ABG Glucose VBG pH Carboxyhemoglobin Sodium Potassium Chloride Carbon Dioxide BUN 27 H Creatinine Glucose POC Glucose 136 H Lactic Acid Calcium 8.2 L Phosphorus Magnesium Ferritin AST Ammonia Lactate Dehydrogenase C-Reactive Protein Total Protein Albumin Arterial Blood Glucose Arterial Blood Ionized Calcium Urine WBC (Auto) Vancomycin Trough 06/05/21 06/05/21 06/05/21 05:10 12:32 15:45 WBC RBC Hgb Hct MCV MCH MCHC RDW Plt Count Seg Neuts % (Manual) Lymphocytes % (Manual) Monocytes % (Manual) Nucleated RBC % Seg Neutrophils # Man Lymphocytes # (Manual) D-Dimer ABG pH POC ABG pCO2 POC ABG pO2 ABG pO2 ABG HCO3 ABG Base Excess ABG Hemoglobin ABG Oxyhemoglobin ABG Sodium ABG Potassium ABG Chloride ABG Glucose VBG pH Carboxyhemoglobin Sodium Potassium 3.5 L Chloride Carbon Dioxide BUN 35 H Creatinine Glucose 130 H POC Glucose 122 H 119 H Lactic Acid Calcium 8.2 L Phosphorus Magnesium Ferritin AST Ammonia Lactate Dehydrogenase C-Reactive Protein Total Protein Albumin Arterial Blood Glucose Arterial Blood Ionized Calcium Urine WBC (Auto) Vancomycin Trough 06/05/21 06/05/21 06/06/21 20:06 21:27 00:04 WBC RBC Hgb Hct MCV MCH MCHC RDW Plt Count Seg Neuts % (Manual) Lymphocytes % (Manual) Monocytes % (Manual) Nucleated RBC % Seg Neutrophils # Man Lymphocytes # (Manual) D-Dimer ABG pH 7.456 H POC ABG pCO2 POC ABG pO2 ABG pO2 ABG HCO3 ABG Base Excess ABG Hemoglobin 10.3 L ABG Oxyhemoglobin ABG Sodium ABG Potassium 3.1 L ABG Chloride ABG Glucose 125 H VBG pH Carboxyhemoglobin 0.3 L Sodium Potassium Chloride Carbon Dioxide BUN Creatinine Glucose POC Glucose 113 H Lactic Acid Calcium Phosphorus Magnesium Ferritin AST Ammonia Lactate Dehydrogenase C-Reactive Protein 19.60 H Total Protein Albumin Arterial Blood Glucose 125 H Arterial Blood Ionized Calcium Urine WBC (Auto) Vancomycin Trough 06/06/21 06/06/21 06/07/21 04:35 22:37 05:54 WBC RBC Hgb Hct MCV MCH MCHC RDW Plt Count Seg Neuts % (Manual) Lymphocytes % (Manual) Monocytes % (Manual) Nucleated RBC % Seg Neutrophils # Man Lymphocytes # (Manual) D-Dimer ABG pH POC ABG pCO2 POC ABG pO2 ABG pO2 ABG HCO3 ABG Base Excess ABG Hemoglobin ABG Oxyhemoglobin ABG Sodium ABG Potassium ABG Chloride ABG Glucose VBG pH Carboxyhemoglobin Sodium Potassium Chloride Carbon Dioxide BUN 43 H Creatinine Glucose POC Glucose 114 H 130 H Lactic Acid Calcium 7.6 L Phosphorus Magnesium Ferritin AST Ammonia Lactate Dehydrogenase C-Reactive Protein Total Protein Albumin Arterial Blood Glucose Arterial Blood Ionized Calcium Urine WBC (Auto) Vancomycin Trough 06/07/21 06/07/2121 07:32 10:03 11:36 WBC RBC 3.63 L Hgb 9.8 L Hct 30.3 L MCV 83 L MCH 27 L MCHC RDW Plt Count Seg Neuts % (Manual) Lymphocytes % (Manual) Monocytes % (Manual) Nucleated RBC % Seg Neutrophils # Man Lymphocytes # (Manual) D-Dimer ABG pH POC ABG pCO2 POC ABG pO2 ABG pO2 ABG HCO3 ABG Base Excess ABG Hemoglobin ABG Oxyhemoglobin ABG Sodium ABG Potassium ABG Chloride ABG Glucose VBG pH Carboxyhemoglobin Sodium Potassium 3.2 L Chloride 108.5 H Carbon Dioxide BUN 36 H Creatinine Glucose 139 H POC Glucose 125 H Lactic Acid Calcium 8.0 L Phosphorus Magnesium Ferritin AST Ammonia Lactate Dehydrogenase C-Reactive Protein Total Protein Albumin Arterial Blood Glucose Arterial Blood Ionized Calcium Urine WBC (Auto) Vancomycin Trough 06/07/21 06/07/21 06/08/21 17:54 22:14 07:18 WBC RBC Hgb Hct MCV MCH MCHC RDW Plt Count Seg Neuts % (Manual) Lymphocytes % (Manual) Monocytes % (Manual) Nucleated RBC % Seg Neutrophils # Man Lymphocytes # (Manual) D-Dimer ABG pH POC ABG pCO2 POC ABG pO2 ABG pO2 ABG HCO3 ABG Base Excess ABG Hemoglobin ABG Oxyhemoglobin ABG Sodium ABG Potassium ABG Chloride ABG Glucose VBG pH Carboxyhemoglobin Sodium 149 H Potassium Chloride 110.2 H Carbon Dioxide BUN 31 H Creatinine Glucose 131 H POC Glucose 121 H 131 H Lactic Acid Calcium 8.1 L Phosphorus Magnesium Ferritin AST Ammonia Lactate Dehydrogenase C-Reactive Protein Total Protein Albumin Arterial Blood Glucose Arterial Blood Ionized Calcium Urine WBC (Auto) Vancomycin Trough 06/08/21 06/08/21 06/08/21 07:45 12:07 18:02 WBC RBC Hgb Hct MCV MCH MCHC RDW Plt Count Seg Neuts % (Manual) Lymphocytes % (Manual) Monocytes % (Manual) Nucleated RBC % Seg Neutrophils # Man Lymphocytes # (Manual) D-Dimer ABG pH POC ABG pCO2 POC ABG pO2 ABG pO2 ABG HCO3 ABG Base Excess ABG Hemoglobin ABG Oxyhemoglobin ABG Sodium ABG Potassium ABG Chloride ABG Glucose VBG pH Carboxyhemoglobin Sodium Potassium Chloride Carbon Dioxide BUN Creatinine Glucose POC Glucose 120 H 127 H 148 H Lactic Acid Calcium Phosphorus Magnesium Ferritin AST Ammonia Lactate Dehydrogenase C-Reactive Protein Total Protein Albumin Arterial Blood Glucose Arterial Blood Ionized Calcium Urine WBC (Auto) Vancomycin Trough 06/09/21 06/09/21 06/09/21 05:51 05:51 11:37 WBC 3.9 L RBC 3.38 L Hgb 9.4 L Hct 28.5 L MCV MCH MCHC RDW Plt Count Seg Neuts % (Manual) Lymphocytes % (Manual) Monocytes % (Manual) Nucleated RBC % Seg Neutrophils # Man Lymphocytes # (Manual) D-Dimer ABG pH POC ABG pCO2 POC ABG pO2 ABG pO2 ABG HCO3 ABG Base Excess ABG Hemoglobin ABG Oxyhemoglobin ABG Sodium ABG Potassium ABG Chloride ABG Glucose VBG pH Carboxyhemoglobin Sodium Potassium Chloride 108.4 H Carbon Dioxide BUN 32 H Creatinine Glucose 137 H POC Glucose 115 H Lactic Acid Calcium 7.5 L Phosphorus Magnesium Ferritin AST 55 H Ammonia Lactate Dehydrogenase C-Reactive Protein 4.10 H Total Protein 5.6 L Albumin 2.0 L Arterial Blood Glucose Arterial Blood Ionized Calcium Urine WBC (Auto) Vancomycin Trough 06/09/21 06/09/21 06/10/21 17:32 22:18 01:52 WBC RBC 3.62 L Hgb 9.9 L Hct 29.8 L MCV 82 L MCH 27 L MCHC RDW Plt Count Seg Neuts % (Manual) Lymphocytes % (Manual) Monocytes % (Manual) Nucleated RBC % Seg Neutrophils # Man Lymphocytes # (Manual) D-Dimer ABG pH POC ABG pCO2 POC ABG pO2 ABG pO2 ABG HCO3 ABG Base Excess ABG Hemoglobin ABG Oxyhemoglobin ABG Sodium ABG Potassium ABG Chloride ABG Glucose VBG pH Carboxyhemoglobin Sodium Potassium Chloride Carbon Dioxide BUN Creatinine Glucose POC Glucose 113 H 110 H Lactic Acid Calcium Phosphorus Magnesium Ferritin AST Ammonia Lactate Dehydrogenase C-Reactive Protein Total Protein Albumin Arterial Blood Glucose Arterial Blood Ionized Calcium Urine WBC (Auto) Vancomycin Trough 06/10/21 06/10/21 06/10/21 01:52 16:14 22:45 WBC RBC Hgb Hct MCV MCH MCHC RDW Plt Count Seg Neuts % (Manual) Lymphocytes % (Manual) Monocytes % (Manual) Nucleated RBC % Seg Neutrophils # Man Lymphocytes # (Manual) D-Dimer ABG pH POC ABG pCO2 POC ABG pO2 ABG pO2 ABG HCO3 ABG Base Excess ABG Hemoglobin ABG Oxyhemoglobin ABG Sodium ABG Potassium ABG Chloride ABG Glucose VBG pH Carboxyhemoglobin Sodium Potassium Chloride 108.2 H Carbon Dioxide BUN 32 H Creatinine 1.4 H Glucose POC Glucose 111 H 107 H Lactic Acid Calcium 7.8 L Phosphorus Magnesium Ferritin AST 55 H Ammonia Lactate Dehydrogenase C-Reactive Protein Total Protein 5.6 L Albumin 1.9 L Arterial Blood Glucose Arterial Blood Ionized Calcium Urine WBC (Auto) Vancomycin Trough 06/11/21 06/11/21 06/11/21 05:51 05:51 05:51 WBC RBC 3.35 L Hgb 9.1 L Hct 28.1 L MCV MCH 27 L MCHC RDW Plt Count 117 L Seg Neuts % (Manual) 93.0 H Lymphocytes % (Manual) 1.0 L Monocytes % (Manual) Nucleated RBC % Seg Neutrophils # Man Lymphocytes # (Manual) 0.0 L D-Dimer ABG pH POC ABG pCO2 POC ABG pO2 ABG pO2 ABG HCO3 ABG Base Excess ABG Hemoglobin ABG Oxyhemoglobin ABG Sodium ABG Potassium ABG Chloride ABG Glucose VBG pH Carboxyhemoglobin Sodium 146 H Potassium Chloride 110.9 H Carbon Dioxide BUN 40 H Creatinine Glucose 119 H POC Glucose Lactic Acid Calcium 7.8 L Phosphorus Magnesium Ferritin AST Ammonia Lactate Dehydrogenase C-Reactive Protein Total Protein Albumin Arterial Blood Glucose Arterial Blood Ionized Calcium Urine WBC (Auto) Vancomycin Trough 22.6 H 06/11/21 06/11/21 06/11/21 08:28 11:36 15:47 WBC RBC Hgb Hct MCV MCH MCHC RDW Plt Count Seg Neuts % (Manual) Lymphocytes % (Manual) Monocytes % (Manual) Nucleated RBC % Seg Neutrophils # Man Lymphocytes # (Manual) D-Dimer ABG pH POC ABG pCO2 POC ABG pO2 ABG pO2 ABG HCO3 ABG Base Excess ABG Hemoglobin ABG Oxyhemoglobin ABG Sodium ABG Potassium ABG Chloride ABG Glucose VBG pH Carboxyhemoglobin Sodium Potassium Chloride Carbon Dioxide BUN Creatinine Glucose POC Glucose 109 H 149 H 139 H Lactic Acid Calcium Phosphorus Magnesium Ferritin AST Ammonia Lactate Dehydrogenase C-Reactive Protein Total Protein Albumin Arterial Blood Glucose Arterial Blood Ionized Calcium Urine WBC (Auto) Vancomycin Trough 06/11/21 06/12/21 06/12/21 21:42 04:00 04:00 WBC 4.0 L RBC 3.50 L Hgb 9.4 L Hct 29.9 L MCV MCH 27 L MCHC 31 L RDW 15.3 H Plt Count 126 L Seg Neuts % (Manual) 88.0 H Lymphocytes % (Manual) Monocytes % (Manual) 12.0 H Nucleated RBC % Seg Neutrophils # Man Lymphocytes # (Manual) 0.0 L D-Dimer ABG pH POC ABG pCO2 POC ABG pO2 ABG pO2 ABG HCO3 ABG Base Excess ABG Hemoglobin ABG Oxyhemoglobin ABG Sodium ABG Potassium ABG Chloride ABG Glucose VBG pH Carboxyhemoglobin Sodium 149 H Potassium Chloride 114.1 H Carbon Dioxide BUN 37 H Creatinine Glucose 137 H POC Glucose 124 H Lactic Acid Calcium 8.0 L Phosphorus Magnesium Ferritin AST Ammonia Lactate Dehydrogenase C-Reactive Protein Total Protein Albumin Arterial Blood Glucose Arterial Blood Ionized Calcium Urine WBC (Auto) Vancomycin Trough 06/12/21 06/13/21 06/13/21 06:37 00:14 06:05 WBC 4.3 L RBC 3.39 L Hgb 9.2 L Hct 28.6 L MCV MCH 27 L MCHC RDW 15.3 H Plt Count 107 L Seg Neuts % (Manual) 77.0 H Lymphocytes % (Manual) 1.0 L Monocytes % (Manual) Nucleated RBC % 1.0 H Seg Neutrophils # Man Lymphocytes # (Manual) 0.0 L D-Dimer ABG pH POC ABG pCO2 POC ABG pO2 ABG pO2 ABG HCO3 ABG Base Excess ABG Hemoglobin ABG Oxyhemoglobin ABG Sodium ABG Potassium ABG Chloride ABG Glucose VBG pH Carboxyhemoglobin Sodium Potassium Chloride Carbon Dioxide BUN Creatinine Glucose POC Glucose 128 H 149 H Lactic Acid Calcium Phosphorus Magnesium Ferritin AST Ammonia Lactate Dehydrogenase C-Reactive Protein Total Protein Albumin Arterial Blood Glucose Arterial Blood Ionized Calcium Urine WBC (Auto) Vancomycin Trough 06/13/21 06/13/21 06/14/21 06:05 11:51 04:29 WBC 4.2 L RBC 3.21 L Hgb 8.7 L Hct 26.7 L MCV 83 L MCH 27 L MCHC RDW 15.3 H Plt Count 87 L Seg Neuts % (Manual) 96 H Lymphocytes % (Manual) 2 L Monocytes % (Manual) Nucleated RBC % Seg Neutrophils # Man Lymphocytes # (Manual) 0.0 L D-Dimer ABG pH POC ABG pCO2 POC ABG pO2 48.3 L ABG pO2 ABG HCO3 ABG Base Excess ABG Hemoglobin 10.7 L ABG Oxyhemoglobin 84.1 L ABG Sodium 145.5 H ABG Potassium ABG Chloride 116.0 H ABG Glucose VBG pH Carboxyhemoglobin Sodium 146 H Potassium 3.5 L Chloride 112.3 H Carbon Dioxide BUN 38 H Creatinine Glucose 112 H POC Glucose Lactic Acid Calcium 8.1 L Phosphorus Magnesium Ferritin AST Ammonia Lactate Dehydrogenase C-Reactive Protein Total Protein Albumin Arterial Blood Glucose Arterial Blood Ionized Calcium Urine WBC (Auto) Vancomycin Trough 06/14/21 06/14/21 04:29 06:17 WBC RBC Hgb Hct MCV MCH MCHC RDW Plt Count Seg Neuts % (Manual) Lymphocytes % (Manual) Monocytes % (Manual) Nucleated RBC % Seg Neutrophils # Man Lymphocytes # (Manual) D-Dimer ABG pH POC ABG pCO2 POC ABG pO2 ABG pO2 ABG HCO3 ABG Base Excess ABG Hemoglobin ABG Oxyhemoglobin ABG Sodium ABG Potassium ABG Chloride ABG Glucose VBG pH Carboxyhemoglobin Sodium 148 H Potassium Chloride 115.3 H Carbon Dioxide BUN 40 H Creatinine Glucose 124 H POC Glucose 106 H Lactic Acid Calcium 8.2 L Phosphorus Magnesium Ferritin AST Ammonia Lactate Dehydrogenase C-Reactive Protein Total Protein Albumin Arterial Blood Glucose Arterial Blood Ionized Calcium Urine WBC (Auto) Vancomycin Trough Chest x-ray: report reviewed, image reviewed CT scan - chest: report reviewed, image reviewed Additional Studies: CHEST 1 VIEW 06/13/2021 11:50 AM INDICATION / CLINICAL INFORMATION: respiratory distress. COMPARISON: 06/09/21. Chest CT dated 06/12/21 FINDINGS: SUPPORT DEVICES: None. HEART / MEDIASTINUM: Stable. LUNGS / PLEURA: No change in diffuse bilateral pulmonary opacities or cavitary area in the left lung base. No pneumothorax. ADDITIONAL FINDINGS: No significant additional findings. IMPRESSION: 1. No change in extensive bilateral pulmonary opacities. Findings could represent atypical pneumonia versus ARDS. CT CHEST WITH CONTRAST 06/12/21 INDICATION / CLINICAL INFORMATION: Pneumonia. TECHNIQUE: Axial CT images were obtained through the chest after IV contrast. All CT scans at this location are performed using CT dose reduction for ALARA by means of automated exposure control. COMPARISON: None available. FINDINGS: There is diffuse groundglass densities and opacities within bilateral lungs with diffuse interstitial prominence septal thickening. Opacities in the dependent portions of bilateral lungs with air bronchograms as well. Large cavitary process within left lung measures 5.5 x 4.4 cm. Heart is upper limits of normal. There are mildly prominent paratracheal nodes. Soft tissue wall thickening. Visualized portions of the upper abdomen appear normal IMPRESSION: 1. Diffuse groundglass densities with pulmonary edema, septal thickening and bilateral pulmonary infiltrates are noted in bilateral lungs. Findings could represent viral/Covid pneumonia, atypical pneumonia, nonspecific. 2. Cavitary process within the left lower lung measuring 5.5 x 4.4 cm. Findings could be related to infection, abscess however follow-up after treatment to exclude malignancy. Allied health notes reviewed: nursing
[2021-06-14] MEDS ORDERED: TOTAL PARENTERAL NUTRITION 1,800 ML IV SCH (20:00)
[2021-06-14] MEDS: VANCOMYCIN/NS 1 GM/250 ML 1 GM/250 ML BAG IV SCH (22:31)
[2021-06-15] MEDS: metroNIDAZOLE/NS 500 MG/100 ML 500 MG/100 ML BAG IV SCH ×3 (05:05→21:27)
[2021-06-15] MEDS: HEPARIN 5,000 UNIT/1 ML VIAL SUB-Q SCH ×3 (05:06→22:04)
[2021-06-15] MEDS: CEFEPIME/NS 2 GM/100 ML 2 GM/100 ML BAG IV SCH ×3 (05:06→22:05)
[2021-06-15 06:41] LABS: Mean Corpuscular HGB Conc 33 % (32-34); Mean Corpuscular Volume 81 fl (84-94); Red Blood Count 2.94 M/mm3 (3.65-5.03); Red Cell Distribution Width 15.6 % (13.2-15.2)
[2021-06-15 07:02] LABS: Platelet Count 87 K/mm3 (140-440)
[2021-06-15 07:04] LABS: BUN/Creatinine Ratio 33; Blood Urea Nitrogen 43 mg/dL (9-20); Calcium 8.1 mg/dL (8.4-10.2); Hemolysis Index 2
[2021-06-15] MEDS: IPRATROPIUM/ALBUTEROL SULFATE 3 ML AMPUL.NEB IH SCH ×3 (08:34→21:24)
[2021-06-15] MEDS ORDERED: CALCIUM GLUCONATE 2,000 MG in SODIUM CHLORIDE 0.9% 100 ML IV ONE (09:00)
--- NOTE | 2021-06-15 09:54 | Progress Note ---
Assessment and Plan Impression: * Acute kidney injury secondary to ATN likely related to COVID 19 * Acute hypoxic respiratory failure secondary to COVID 19 PNA * Azotemia * Hyperkalemia * Metabolic acidosis * Hypernatremia Plan: * creatinine is stable 1.2->1.4->1.2->1.1->1.2->1.3->1.3, on D5W for free water * Sodium slightly improved at 146->149->146->148->143, continue free water as above, po hydration if able * off baclofen * agree with Ca repletion * Keep MAP>65 * Management of COVID 19 PNA to primary team/ID * Dose medications for renal function * AM labs * Renal diet * follow up lytes prn * Prognosis guarded Subjective Date of service: 06/15/21 Principal diagnosis: Acute hypoxemic resp failure; Pneumonia; PUI COVID-19 infection Interval history: Remains in IMCU for respiratory distress, on VentiMask this AM. Continues on D5W Objective - Exam Narrative Exam: Direct examination deferred given COVID-19 pandemic, need to limit PPE overuse - Vital Signs Vital signs: Vital Signs - 12hr 06/14/21 06/14/21 06/14/21 22:00 22:52 23:00 Temperature Pulse Rate 72 74 79 Pulse Rate [ Anterior Bilateral Throughout] Pulse Rate [ From Monitor] Respiratory 18 22 17 Rate Respiratory Rate [Anterior Bilateral Throughout] Blood Pressure 144/72 141/72 144/72 O2 Sat by Pulse 97 92 Oximetry 06/15/21 06/15/21 06/15/21 00:00 01:00 02:00 Temperature 96.8 F L Pulse Rate 70 76 78 Pulse Rate [ Anterior Bilateral Throughout] Pulse Rate [ 70 From Monitor] Respiratory 19 22 23 Rate Respiratory Rate [Anterior Bilateral Throughout] Blood Pressure 142/73 151/79 133/79 O2 Sat by Pulse 99 98 99 Oximetry 06/15/21 06/15/21 06/15/21 03:00 04:00 05:00 Temperature 99.1 F Pulse Rate 91 H 89 88 Pulse Rate [ Anterior Bilateral Throughout] Pulse Rate [ 91 H From Monitor] Respiratory 28 H 27 H 26 H Rate Respiratory Rate [Anterior Bilateral Throughout] Blood Pressure 143/77 145/77 144/82 O2 Sat by Pulse 97 97 98 Oximetry 06/15/21 06/15/2106/15/21 06:00 07:00 08:00 Temperature Pulse Rate 97 H 105 H 90 Pulse Rate [ 91 H Anterior Bilateral Throughout] Pulse Rate [ From Monitor] Respiratory 27 H 32 H 26 H Rate Respiratory 26 H Rate [Anterior Bilateral Throughout] Blood Pressure 142/75 143/81 145/77 O2 Sat by Pulse 96 96 99 Oximetry 06/15/21 06/15/21 08:01 09:37 Temperature Pulse Rate 90 Pulse Rate [ Anterior Bilateral Throughout] Pulse Rate [ From Monitor] Respiratory 27 H Rate Respiratory Rate [Anterior Bilateral Throughout] Blood Pressure 145/77 O2 Sat by Pulse 96 98 Oximetry - Lab 06/15/21 05:53 06/15/21 05:53 Most recent lab results ABG pH 7.408 (7.320-7.450) 06/13/21 11:51 ABG pCO2 29.0 mm Hg 05/30/21 22:32 ABG pO2 141.8 mm Hg (80.0-90.0) H 05/30/21 22:32 ABG HCO3 19.9 mmol/L (20.0-26.0) L 05/30/21 22:32 ABG O2 Saturation 84.9 (0-100) 06/13/21 11:51 Calcium 8.1 mg/dL (8.4-10.2) L 06/15/21 05:53 Phosphorus 2.10 mg/dL (2.5-4.5) L D 06/15/21 05:53 Magnesium 1.80 mg/dL (1.7-2.3) 06/15/21 05:53 Medications & Allergies - Medications Allergies/Adverse Reactions: Allergies No Known Allergies Allergy (Unverified 02/12/17 15:47) Home Medications: Home Medications Medication Instructions Recorded Confirmed Last Taken Type No Known Home Medications [No 05/31/21 05/31/21 Unknown History Reported Home Medications] Active Medications: Generic Name Dose Route Start Last Admin Trade Name Freq PRN Reason Stop Dose Admin Albuterol/Ipratropium 1 ampul 06/07/21 20:00 06/15/21 08:34 Ipratropium/Albuterol Sulfate 3 Ml Ampul.Neb IH 1 ampul TIDRT MIKE Administration Lipase/Protease/Amylase 1 each 06/03/21 12:23 Lipase 10,500/Protease 25,000/Amylase 43,750 (Units) Dr Rodney FEEDTUBE PRN PRN For Clogged Feeding Tube Heparin Sodium (Porcine) 5,000 unit 05/24/21 06:00 06/15/21 05:06 Heparin 5,000 Unit/1 Ml Vial SUB-Q 5,000 unit Q8HR MIKE Administration Metronidazole 500 mg in 100 mls @ 100 mls/hr 06/08/21 13:00 06/15/21 05:05 Flagyl 500 Mg/100 Ml IV 100 mls/hr Q8H MIKE Administration Protocol Cefepime HCl 2 gm in 100 mls @ 200 mls/hr 06/08/21 23:08 06/15/21 05:06 Cefepime/Ns 2 Gm/100 Ml IV 200 mls/hr Q8HR MIKE Administration Protocol Dextrose 1,000 mls @ 75 mls/hr 06/13/21 07:00 06/14/21 22:56 D5w IV 0 mls/hr DIRECT MIKE Infusion Vancomycin HCl 1 gm in 250 mls @ 167.007 mls/hr 06/14/21 22:00 06/14/21 22:31 Vancomycin/Ns 1 Gm/250 Ml IV 167.007 mls/hr Q24H MIKE Administration Amino Acids/Electrolytes/Dextrose 1,800 mls @ 75 mls/hr 06/14/21 20:00 06/14/21 22:28 Tpn Adult IV 06/15/21 19:59 75 mls/hr DAILY@2000 MIKE Administration Protocol Methylprednisolone Sodium Succinate 20 mg 06/13/21 22:00 06/14/21 22:29 Methylprednisolone Sod Succinate 40 Mg/1 Ml Inj IV 20 mg Q12HR MIKE Administration Morphine Sulfate 2 mg 05/23/21 22:01 06/14/21 00:20 Morphine 2 Mg/1 Ml Inj IV 2 mg Q4H PRN Administration Pain, Moderate (4-6) Ondansetron HCl 4 mg 06/04/21 13:41 06/09/21 22:05 Ondansetron 4 Mg/2 Ml Inj IV 4 mg Q4H PRN Administration Nausea And Vomiting Sodium Chloride 10 ml 05/23/21 22:01 Sodium Chloride 0.9% 10 Ml Flush Syringe IV PRN PRN LINE FLUSH
[2021-06-15] MEDS: methylPREDNISolone Sod Succinate 40 MG/1 ML INJ IV SCH ×2 (10:54→22:04)
[2021-06-15 12:41] LABS: Platelet Estimate Consistent w Auto; RBC Morphology Normal
[2021-06-15 12:45] LABS: Band Neutrophils # (Manual) 0.1 K/mm3; Total Cells Counted 100
[2021-06-15] MEDS ORDERED: ACETAMINOPHEN 650 MG RECT SUPP PR ONE ×3 (15:00→22:00)
--- NOTE | 2021-06-15 15:53 | Progress Note ---
Assessment and Plan Assessment and plan: #Acute hypoxic respiratory failure-stable -Currently on BiPAP, will maintain SpO2 >90% -VQ scan low probability for PE on admission -Continue IV methylprednisone 20 mg every 12 hours. We will continue to wean per ID recommendations. Will decrease dose to 10 mg every 12 hours on 06/16/2021. -s/p 1 dose of Lasix -TTE 06/06: LVEF 55 to 60%, no valvular or chamber abnormalities -Pulmonary consulted, recommendations appreciated -patient continues to deteriorate will possibly need bronchoscopy to address the cavitary lesion; will refer to Pulmonology recs -Consulted nutrition (06/14/2021) for initiation of PPN. #COVID-19 pneumonia #Left lower lobe cavititation #Left lower lobe abscess -CT abdomen pelvis revealed severe bilateral pneumonia and a cavitary lesion in the left lower lobe -likely secondary to aspiration during ileus -CT chest (06/12/2021) revealing cavitary lesion in LLL approximately 5x6cm and diffusse ground-glass opacities consistent with COVID-19 infection (prior) -CRP 19.6 and procal 24.30, repeat pending -continue vancomycin, cefepime and flagyl per ID recommendations -will reorder MRSA PCR; if negative, will discontinue vancomycin -ID plans to treat abscess for a total of 3 weeks (IV while inpatient and po upon discharge). Would be discharged with Augmentin 875/125mg q12hrs (total 3 week course ends on 06/29/2021. -completed azithromycin and Rocephin in past #Severe sepsis #Fever -Patient spiked fever of 39.4 Celsius (06/15/2021). Given rectal Tylenol. -repeat blood cultures no growth to date -procalcitonin 24.30 -continue vancomycin, cefepime and flagyl -s/p zosyn -likely 2/2 to PNA #Hypocalcemia -Calcium 7.8 -Repleted; continue to monitor #COVID-19 infection -Diagnosed on 05/11 -s/p 10 days of steroids, restarted on 06/04 due to worsening Pulmonary status -Tapering steroids per ID recommendations #Vzcqlyegbmfzc-rzcswoin-zqcnew secondary to poor oral intake #Acute encephalopathy-Resolved #ANGELES, resolved #Hyperkalemia, resolved #Ileus-resolved #Lactic acidosis-resolved #Discharge planning -Patient and family agreed to the home with home health upon discharge -will continue to wean oxygen to at least 4 L/min prior to discharge Disposition Plan: Continue medical management Total Time Spent with Patient (Minutes): 40 History Interval history: No acute events overnight. Hospitalist Physical - Constitutional Vitals: Temp Pulse Resp BP Pulse Ox 99.1 F 126 H 22 152/83 96 06/15/21 04:00 06/15/21 13:00 06/15/21 13:00 06/15/21 13:00 06/15/21 13:00 General appearance: Present: no acute distress, cachectic - EENT Eyes: Present: PERRL, EOM intact ENT: hearing intact, dentition normal - Neck Neck: Present: supple, normal ROM - Respiratory Respiratory effort: normal (Patient currently on BiPAP) Respiratory: bilateral: diminished, rhonchi - Cardiovascular Rhythm: regular Heart Sounds: Present: S1 & S2 - Extremities Extremities: no ischemia, pulses intact, pulses symmetrical, No edema, normal temperature, normal color Peripheral Pulses: within normal limits - Abdominal General gastrointestinal: soft, non-tender, non-distended, normal bowel sounds - Integumentary Integumentary: Present: clear, warm, dry - Psychiatric Psychiatric: appropriate mood/affect, intact judgment & insight, memory intact, cooperative - Neurologic Neurologic: CNII-XII intact, moves all extremities HEART Score - HEART Score EKG: Non-specific Age: 45-65 Risk factors: 1-2 risk factors Troponin: Troponin T < 0.010 ng/mL (0.00-0.029) 05/23/21 18:48 - Critical Actions Critical Actions: 0-3 pts:0.9-1.7%risk of adverse cardiac event.Candidate for discharge Results - Labs CBC & Chem 7: 06/15/21 05:53 06/15/21 05:53 Labs: Laboratory Last Values WBC 3.8 K/mm3 (4.5-11.0) L 06/15/21 05:53 RBC 2.94 M/mm3 (3.65-5.03) L 06/15/21 05:53 Hgb 8.0 gm/dl (11.8-15.2) L 06/15/21 05:53 Hct 24.0 % (35.5-45.6) L 06/15/21 05:53 MCV 81 fl (84-94) L 06/15/21 05:53 MCH 27 pg (28-32) L 06/15/21 05:53 MCHC 33 % (32-34) 06/15/21 05:53 RDW 15.6 % (13.2-15.2) H 06/15/21 05:53 Plt Count 87 K/mm3 (140-440) L 06/15/21 05:53 Lymph % (Auto) [place] 06/01/21 07:10 Roberts % (Auto) [place] 06/01/21 07:10 Eos % (Auto) [place] 06/01/21 07:10 Baso % (Auto) [place] 06/01/21 07:10 Lymph # (Auto) [place] 06/01/21 07:10 Roberts # (Auto) [place] 06/01/21 07:10 Eos # (Auto) [place] 06/01/21 07:10 Baso # (Auto) [place] 06/01/21 07:10 Add Manual Diff Complete 06/15/21 05:53 Total Counted 100 06/15/21 05:53 Seg Neutrophils % [place] 06/15/21 05:53 Seg Neuts % (Manual) 95.0 % (40.0-70.0) H 06/15/21 05:53 Band Neutrophils % 2.0 % 06/15/21 05:53 Lymphocytes % (Manual) 1.0 % (13.4-35.0) L 06/15/21 05:53 Reactive Lymphs % (Man) 1.0 % 06/01/21 07:10 Monocytes % (Manual) 2.0 % (0.0-7.3) 06/15/21 05:53 Myelocytes % 1.0 % 06/13/21 06:05 Nucleated RBC % 1.0 % (0.0-0.9) H 06/15/21 05:53 Seg Neutrophils # [place] 06/01/21 07:10 Seg Neutrophils # Man 3.6 K/mm3 (1.8-7.7) 06/15/21 05:53 Band Neutrophils # 0.1 K/mm3 06/15/21 05:53 Lymphocytes # (Manual) 0.0 K/mm3 (1.2-5.4) L 06/15/21 05:53 Abs React Lymphs (Man) 0.0 K/mm3 06/15/21 05:53 Monocytes # (Manual) 0.1 K/mm3 (0.0-0.8) 06/15/21 05:53 Eosinophils # (Manual) 0.0 K/mm3 (0.0-0.4) 06/15/21 05:53 Basophils # (Manual) 0.0 K/mm3 (0.0-0.1) 06/15/21 05:53 Metamyelocytes # 0.0 K/mm3 06/15/21 05:53 Myelocytes # 0.0 K/mm3 06/15/21 05:53 Promyelocytes # 0.0 K/mm3 06/15/21 05:53 Blast Cells # 0.0 K/mm3 06/15/21 05:53 WBC Morphology Not Reportable 06/15/21 05:53 Hypersegmented Neuts Not Reportable 06/15/21 05:53 Hyposegmented Neuts Not Reportable 06/15/21 05:53 Hypogranular Neuts Not Reportable 06/15/21 05:53 Smudge Cells Not Reportable 06/15/21 05:53 Toxic Granulation Not Reportable 06/15/21 05:53 Toxic Vacuolation Not Reportable 06/15/21 05:53 Dohle Bodies Not Reportable 06/15/21 05:53 Pelger-Huet Anomaly Not Reportable 06/15/21 05:53 Kaci Rods Not Reportable 06/15/21 05:53 Platelet Estimate Consistent w auto 06/15/21 05:53 Clumped Platelets Not Reportable 06/15/21 05:53 Plt Clumps, EDTA Not Reportable 06/15/21 05:53 Large Platelets Not Reportable 06/15/21 05:53 Giant Platelets Not Reportable 06/15/21 05:53 Platelet Satelliting Not Reportable 06/15/21 05:53 Plt Morphology Comment Not Reportable 06/15/21 05:53 RBC Morphology Normal 06/15/21 05:53 Dimorphic RBCs Not Reportable 06/15/21 05:53 Polychromasia Not Reportable 06/15/21 05:53 Hypochromasia Not Reportable 06/15/21 05:53 Poikilocytosis Not Reportable 06/15/21 05:53 Anisocytosis Not Reportable 06/15/21 05:53 Microcytosis Not Reportable 06/15/21 05:53 Macrocytosis Not Reportable 06/15/21 05:53 Spherocytes Not Reportable 06/15/21 05:53 Pappenheimer Bodies Not Reportable 06/15/21 05:53 Sickle Cells Not Reportable 06/15/21 05:53 Target Cells Not Reportable 06/15/21 05:53 Tear Drop Cells Not Reportable 06/15/21 05:53 Ovalocytes Not Reportable 06/15/21 05:53 Helmet Cells Not Reportable 06/15/21 05:53 [place] Bodies Not Reportable 06/15/21 05:53 [place] Rings Not Reportable 06/15/21 05:53 [place] Cells Not Reportable 06/15/21 05:53 Bite Cells Not Reportable 06/15/21 05:53 Crenated Cell Not Reportable 06/15/21 05:53 Elliptocytes Not Reportable 06/15/21 05:53 Acanthocytes (Spur) Not Reportable 06/15/21 05:53 Rouleaux Not Reportable 06/15/21 05:53 Hemoglobin C Crystals Not Reportable 06/15/21 05:53 Schistocytes Not Reportable 06/15/21 05:53 Malaria parasites Not Reportable 06/15/21 05:53 Dick Bodies Not Reportable 06/15/21 05:53 Hem Pathologist Commnt No 06/15/21 05:53 D-Dimer 3584.01 ng/mlDDU (0-234) H 05/27/21 08:09 ABG pH 7.408 (7.320-7.450) 06/13/21 11:51 POC ABG pCO2 42.7 mmHg (32.0-48.0) 06/13/21 11:51 ABG pCO2 29.0 mm Hg 05/30/21 22:32 POC ABG pO2 48.3 mmHg (83-108) L 06/13/21 11:51 ABG pO2 141.8 mm Hg (80.0-90.0) H 05/30/21 22:32 POC ABG HCO3 26.3 06/13/21 11:51 ABG HCO3 19.9 mmol/L (20.0-26.0) L 05/30/21 22:32 ABG O2 Saturation 84.9 (0-100) 06/13/21 11:51 ABG O2 Content 19.9 (0.0-44) 05/30/21 22:32 POC ABG Base Excess 1.5 06/13/21 11:51 ABG Base Excess -2.7 mmol/L (-2.0-3.0) L 05/30/21 22:32 ABG Hemoglobin 10.7 (12.0-17.5) L 06/13/21 11:51 ABG Oxyhemoglobin 84.1 (94-98) L 06/13/21 11:51 ABG Carboxyhemoglobin 1.1 % (0.0-5.0) 05/30/21 22:32 ABG Methemoglobin 0.3 (0.0-1.5) 06/13/21 11:51 ABG Sodium 145.5 mmol/L (136.0-145.0) H 06/13/21 11:51 ABG Potassium 3.5 mmol/L (3.40-4.50) 06/13/21 11:51 ABG Chloride 116.0 mmol/L (98-107) H 06/13/21 11:51 ABG Glucose 87 mg/dL (65-95) 06/13/21 11:51 VBG pH 7.254 (7.320-7.420) L 05/24/21 02:09 Oxyhemoglobin 97.1 % (95.0-99.0) 05/30/21 22:32 Carboxyhemoglobin 0.7 (0.5-1.5) 06/13/21 11:51 FiO2 70 % 05/30/21 22:32 FiO2 % 100 06/13/21 11:51 Sodium 143 mmol/L (137-145) 06/15/21 05:53 Potassium 3.7 mmol/L (3.6-5.0) 06/15/21 05:53 Chloride 110.5 mmol/L (98-107) H 06/15/21 05:53 Carbon Dioxide 24 mmol/L (22-30) 06/15/21 05:53 Anion Gap 12 mmol/L 06/15/21 05:53 BUN 43 mg/dL (9-20) H 06/15/21 05:53 Creatinine 1.3 mg/dL (0.8-1.3) 06/15/21 05:53 Estimated GFR > 60 ml/min 06/15/21 05:53 BUN/Creatinine Ratio 33 % 06/15/21 05:53 Glucose 143 mg/dL (75-100) H 06/15/21 05:53 POC Glucose 134 mg/dL (70-105) H 06/15/21 05:23 Lactic Acid 1.20 mmol/L (0.7-2.0) 06/06/21 00:04 Calcium 8.1 mg/dL (8.4-10.2) L 06/15/21 05:53 Phosphorus 2.10 mg/dL (2.5-4.5) L D 06/15/21 05:53 Magnesium 1.80 mg/dL (1.7-2.3) 06/15/21 05:53 Ferritin 2742.0 ng/mL (30.0-300.0) H 05/27/21 08:09 Total Bilirubin 0.40 mg/dL (0.1-1.2) 06/10/21 01:52 AST 55 units/L (5-40) H 06/10/21 01:52 ALT 21 units/L (7-56) 06/10/21 01:52 Alkaline Phosphatase 88 units/L (35-129) 06/10/21 01:52 Ammonia 22.0 umol/L (25-60) L 05/23/21 18:48 Lactate Dehydrogenase 642 units/L (91-180) H 05/27/21 08:09 Troponin T < 0.010 ng/mL (0.00-0.029) 05/23/21 18:48 C-Reactive Protein 4.10 mg/dL (0.00-1.30) H 06/09/21 05:51 Total Protein 5.6 g/dL (6.3-8.2) L 06/10/21 01:52 Albumin 1.9 g/dL (3.9-5) L 06/10/21 01:52 Albumin/Globulin Ratio 0.5 % 06/10/21 01:52 Procalcitonin 7.52 ng/mL (<0.15) 06/09/21 05:51 TSH 1.150 mlU/mL (0.270-4.200) 05/23/21 18:48 Arterial Blood Glucose 87 mg/dL (65-95) 06/13/21 11:51 Arterial Blood Ionized Calcium 4.5 mg/dL (4.6-5.3) L 05/29/21 17:58 Urine Color Eli (Yellow) 05/30/21 01:00 Urine Turbidity Cloudy (Clear) 05/30/21 01:00 Urine pH 5.0 (5.0-7.0) 05/30/21 01:00 Ur Specific [place] 1.019 (1.003-1.030) 05/30/21 01:00 Urine Protein 100 mg/dl mg/dL (Negative) 05/30/21 01:00 Urine Glucose (UA) Neg mg/dL (Negative) 05/30/21 01:00 Urine Ketones Neg mg/dL (Negative) 05/30/21 01:00 Urine Blood Mod (Negative) 05/30/21 01:00 Urine Nitrite Neg (Negative) 05/30/21 01:00 Urine Bilirubin Neg (Negative) 05/30/21 01:00 Urine Urobilinogen 4.0 mg/dL (<2.0) 05/30/21 01:00 Ur Leukocyte Esterase Neg (Negative) 05/30/21 01:00 Urine WBC (Auto) 12.0 /HPF (0.0-6.0) H 05/30/21 01:00 Urine RBC (Auto) 21.0 /HPF (0.0-6.0) 05/30/21 01:00 U Epithel Cells (Auto) 2.0 /HPF (0-13.0) 05/30/21 01:00 Uric Acid Crystals Few 05/30/21 01:00 Urine Mucus Few /HPF 05/30/21 01:00 Urine Yeast (Budding) 2+ /HPF 05/30/21 01:00 Vancomycin Trough 22.6 ug/mL (5.0-20.0) H 06/11/21 05:51 Plasma/Serum Alcohol < 0.01 % (0-0.07) 05/23/21 18:48 Proteinase 3 (PR3) Ab <1.0 AI (<1.0) 05/24/21 20:57 Myeloperoxidase Ab <1.0 AI (<1.0) 05/24/21 20:57 Complement C3 108 mg/dL (82-185) 05/24/21 20:57 Complement C4 29 mg/dL (15-53) 05/24/21 20:57 Coronavirus (PCR) Negative (Negative) 05/26/21 08:41 Blood Type A POSITIVE 05/29/21 08:15 Antibody Screen Negative 05/29/21 08:15 Heart/IV: Voiding Method Condom Catheter Active Medications - Current Medications Current Medications: Generic Name Dose Route Start Last Admin Trade Name Freq PRN Reason Stop Dose Admin Albuterol/Ipratropium 1 ampul 06/07/21 20:00 06/15/21 08:34 Ipratropium/Albuterol Sulfate 3 Ml Ampul.Neb IH 1 ampul TIDRT MIKE Administration Lipase/Protease/Amylase 1 each 06/03/21 12:23 Lipase 10,500/Protease 25,000/Amylase 43,750 (Units) Dr Rodney FEEDTUBE PRN PRN For Clogged Feeding Tube Heparin Sodium (Porcine) 5,000 unit 05/24/21 06:00 06/15/21 14:17 Heparin 5,000 Unit/1 Ml Vial SUB-Q 5,000 unit Q8HR MIKE Administration Metronidazole 500 mg in 100 mls @ 100 mls/hr 06/08/21 13:00 06/15/21 14:06 Flagyl 500 Mg/100 Ml IV 100 mls/hr Q8H MIKE Administration Protocol Cefepime HCl 2 gm in 100 mls @ 200 mls/hr 06/08/21 23:08 06/15/21 14:09 Cefepime/Ns 2 Gm/100 Ml IV 200 mls/hr Q8HR MIKE Administration Protocol Dextrose 1,000 mls @ 75 mls/hr 06/13/21 07:00 06/14/21 22:56 D5w IV 0 mls/hr DIRECT MIKE Infusion Vancomycin HCl 1 gm in 250 mls @ 167.007 mls/hr 06/14/21 22:00 06/14/21 22:31 Vancomycin/Ns 1 Gm/250 Ml IV 167.007 mls/hr Q24H MIKE Administration Amino Acids/Electrolytes/Dextrose 1,800 mls @ 75 mls/hr 06/14/21 20:00 06/14/21 22:28 Tpn Adult IV 06/15/21 19:59 75 mls/hr DAILY@2000 MIKE Administration Protocol Amino Acids/Electrolytes/Dextrose 1,800 mls @ 75 mls/hr 06/15/21 20:00 Tpn Adult IV 06/16/21 19:59 DAILY@1999 [facility] Protocol Methylprednisolone Sodium Succinate 20 mg 06/13/21 22:00 06/15/21 10:54 Methylprednisolone Sod Succinate 40 Mg/1 Ml Inj IV 20 mg Q12HR MIKE Administration Morphine Sulfate 2 mg 05/23/21 22:01 06/14/21 00:20 Morphine 2 Mg/1 Ml Inj IV 2 mg Q4H PRN Administration Pain, Moderate (4-6) Ondansetron HCl 4 mg 06/04/21 13:41 06/09/21 22:05 Ondansetron 4 Mg/2 Ml Inj IV 4 mg Q4H PRN Administration Nausea And Vomiting Sodium Chloride 10 ml 05/23/21 22:01 06/15/21 11:06 Sodium Chloride 0.9% 10 Ml Flush Syringe IV 10 ml PRN PRN Administration LINE FLUSH Nutrition/Malnutrition Assess - Dietary Evaluation Nutrition/Malnutrition Findings: Nutrition Notes Start: 05/25/21 09:33 Freq: Status: Active Protocol: Document 06/15/21 09:30 (Rec: 06/15/21 09:43 [id number]) Nutrition Notes Initial or Follow up Reassessment Current Diagnosis Sepsis,Respiratory Failure Other Pertinent Diagnosis Covid 19+, pneu Current Diet TPN at 75 ml/hr Labs/Tests Cl 110.5 BUN 43 BG 143 Phos 2.1 Pertinent Medications Reviewed Height 5 ft 11 in Weight 74.5 kg [place] Body Weight (kg) 78.18 BMI 22.8 Weight change and time frame Wt flucuations noted Weight Status Appropriate Subjective/Other Information Day 2 TPN. Pt remains on bipap . No BM per chart since 06/09. Percent of energy/protein needs met: 33%/80% Burn Absent Trauma Absent GI Symptoms Constipation Skin Integrity/Comment stage 2 wounds per RN notes Current % PO Negligible Minimum of two criteria No #2 Nutrition Diagnosis Increased nutrient needs ( specify in comment below) Diagnosis Progress(for reassessment Continues documentation) #1 Nutrition Diagnosis Inadequate oral intake Diagnosis Progress(for reassessment Continues documentation) Is patient on ventilator? No Is Patient Ambulatory and/or Out of Bed No REE-([facility] Jeri-confined to bed) [phone] Calculation Used for Recommendations [facility] Additional Notes protein needs: 93-112 (1.25-1. 5g/kgBW) fluid needs: 1 ml/kcal or per MD Nutrition Intervention Change Diet Order: advance as able Nutrition Support: TPN via PICC at 75 ml/hr. 882 mOsm, AA 4.7%, K 60 mEq, Phos 30 mmol, Na 40 mEq Kcal 680 Protein (gm) 85 Carbohydrates (gm) 100 Fat (gm) 0 Fluid (mL) 1,800 Fiber (gm) 0 Goal #1 Meet at least 75% of EER via TPN Goal #2 wound healing Anticipated Discharge Needs: unable to determine at this time Follow-Up By: 06/16/21 Additional Comments F/U: BMP, Mg, Phos Respiratory status - Attestation Statement I have reviewed and agreed w/ Malnutrition eval & tx plan: Yes
--- NOTE | 2021-06-15 17:25 | Progress Note ---
Assessment and Plan 55-year-old -[place] male who was diagnosed with COVID-19 on May 11, 2021 presents to the emergency room today with complaints of shortness of breath and decreased oral intake over the past 10 to 12 days. Patient also has known history of CVA about 20 years ago and it is unknown whether patient had any residual deficits. Patient has not been able to communicate well and most of the history was gotten from the ER staff. Initial oxygen saturation according to EMS was about 70% and patient was placed on nonrebreather. He was eventually placed on oxygen by nasal cannula upon arrival in the emergency room with significant improvement in his oxygen saturation. Work-up in the emergency room reveals a D-dimer greater than 10,000, sodium 151 potassium of 5.1, BUN of 180) and creatinine of 4.3. Patient had a lactic acid of 2.3. WBC was 11.8. CT scan of the head shows no acute abnormality. Chest x-ray shows mild patchy multifocal airspace disease throughout the lungs. No pleural effusion. VQ scan done showed low probability for pulmonary embolism. Patient being admitted with pneumonia possibly secondary to COVID-19, hypoxia and encephalopathy. Patients COVID 19 PCR reported negative. Patient sleeping.. Patient is on on BIPAP 20/10, rate 14, FIO2 100% and O2 saturation running 95%. Patient febrile. No Leukocytosis. Blood pressure 152/87, Pulse 124. Chest xray 06/03/21: reported diffuse hazy airspace opacities bilaterally, mildly worsened compared to reference exam. No pneumothorax. Chest xray 06/09/21: reported slightly improved bilateral pulmonary opacities. No pneumothorax. Patients CAT scan of abdomen done 0n 06/06/21 reported Severe aspiration type pneumonia identified throughout both lower lungs with cavitary lesion within the left lower lobe measuring about [address] of chest done on 06/12/21 reported 1. Diffuse groundglass densities with pulmonary edema, septal thickening and bilateral pulmonary infiltrates are noted in bilateral lungs. Findings could represent viral/Covid pneumonia, atypical pneumonia, nonspecific. 2. Cavitary process within the left lower lung measuring 5.5 x 4.4 cm. Findings could be related to infection, abscess however follow-up after treatment to exclude malignancy. Chest xray done 06/13/21 reported 1. Diffuse groundglass densities with pulmonary edema, septal thickening and bilateral pulmonary infiltrates are noted in bilateral lungs. Findings could represent viral/Covid pneumonia, atypical pneumonia, nonspecific. 2. Cavitary process within the left lower lung measuring 5.5 x 4.4 cm. Findings could be related to infection, abscess however follow-up after treatment to exclude malignancy. BIPAP settings change to 20/10, rate 14, FIO2 90% Patient presently on Cefepime, Flagyl, Vancomycin, I/V solumedrol and S/C Hepar in, and albuterol/atrovent aerosol treatments. I spent critical care time of 35 minutes, reviewing the chart, examine the patient, review CAT scan of chest, lab results, talking to the respiratory therapy and nursing staff and work up plan of treatment in this critically ill patient. - Patient Problems (1) Acute respiratory failure with hypoxia Current Visit: Yes Status: Acute Plan to address problem: BIPAP 20/10, rate 14, FIO2 100% Continue I/V solumedrol. Continue S/C heparin. Recommend GI prophylaxis. Continue albuterol/atrovent aerosol treatments. (2) Abscess of left lung with pneumonia Current Visit: Yes Status: Acute Plan to address problem: Pneumonia and abscess likely from aspiration. Patient is on cefepime, Flagyl and vancomycin. (3) Suspected 2019 novel coronavirus infection Current Visit: Yes Status: Acute Plan to address problem: Patient coronavirus PCR is negative. Subjective Date of service: 06/15/21 Principal diagnosis: Acute hypoxemic resp failure; Pneumonia; PUI COVID-19 infection Interval history: 55-year-old -[place] male who was diagnosed with COVID-19 on May 11, 2021 presents to the emergency room today with complaints of shortness of breath and decreased oral intake over the past 10 to 12 days. Patient also has known history of CVA about 20 years ago and it is unknown whether patient had any residual deficits. Patient has not been able to communicate well and most of the history was gotten from the ER staff. Initial oxygen saturation according to EMS was about 70% and patient was placed on nonrebreather. He was eventually placed on oxygen by nasal cannula upon arrival in the emergency room with significant improvement in his oxygen saturation. Work-up in the emergency room reveals a D-dimer greater than 10,000, sodium 151 potassium of 5.1, BUN of 180) and creatinine of 4.3. Patient had a lactic acid of 2.3. WBC was 11.8. CT scan of the head shows no acute abnormality. Chest x-ray shows mild patchy multifocal airspace disease throughout the lungs. No pleural effusion. VQ scan done showed low probability for pulmonary embolism. Patient being admitted with pneumonia possibly secondary to COVID-19, hypoxia and encephalopathy. Patients COVID 19 PCR reported negative. Patient sleeping.. Patient is on on BIPAP 20/10, rate 14, FIO2 100% and O2 saturation running 95%. Patient febrile. No Leukocytosis. Blood pressure 152/87, Pulse 124. Chest xray 06/03/21: reported diffuse hazy airspace opacities bilaterally, mildly worsened compared to reference exam. No pneumothorax. Chest xray 06/09/21: reported slightly improved bilateral pulmonary opacities. No pneumothorax. Patients CAT scan of abdomen done 0n 06/06/21 reported Severe aspiration type pneumonia identified throughout both lower lungs with cavitary lesion within the left lower lobe measuring about [address] of chest done on 06/12/21 reported 1. Diffuse groundglass densities with pulmonary edema, septal thickening and bilateral pulmonary infiltrates are noted in bilateral lungs. Findings could represent viral/Covid pneumonia, atypical pneumonia, nonspecific. 2. Cavitary process within the left lower lung measuring 5.5 x 4.4 cm. Findings could be related to infection, abscess however follow-up after treatment to exclude malignancy. Chest xray done 06/13/21 reported 1. Diffuse groundglass densities with pulmonary edema, septal thickening and bilateral pulmonary infiltrates are noted in bilateral lungs. Findings could represent viral/Covid pneumonia, atypical pneumonia, nonspecific. 2. Cavitary process within the left lower lung measuring 5.5 x 4.4 cm. Findings could be related to infection, abscess however follow-up after treatment to exclude malignancy. Change bipap settings to 20/10, rate 14, FIO2 100%. Patient presently on Cefepime, Flagyl, Vancomycin, I/V solumedrol and S/C Heparin, and albuterol/atrovent aerosol treatments. Recommend GI prophylaxis. Objective Vital Signs - 12hr 06/15/21 06/15/21 06/15/21 06:00 07:00 08:00 Pulse Rate 97 H 105 H 90 Pulse Rate [ 91 H Anterior Bilateral Throughout] Pulse Rate [ 98 H From Monitor] Respiratory 27 H 32 H 28 H Rate Respiratory 26 H Rate [Anterior Bilateral Throughout] Blood Pressure 142/75 143/81 145/77 O2 Sat by Pulse 96 96 100 Oximetry 06/15/21 06/15/21 06/15/21 08:01 09:00 09:37 Pulse Rate 90 92 H Pulse Rate [ Anterior Bilateral Throughout] Pulse Rate [ From Monitor] Respiratory 27 H 22 Rate Respiratory Rate [Anterior Bilateral Throughout] Blood Pressure 145/77 147/84 O2 Sat by Pulse 96 100 98 Oximetry 06/15/21 06/15/21 06/15/21 10:01 11:00 12:00 Pulse Rate 122 H 115 H 127 H Pulse Rate [ Anterior Bilateral Throughout] Pulse Rate [ 126 H From Monitor] Respiratory 42 H 24 28 H Rate Respiratory Rate [Anterior Bilateral Throughout] Blood Pressure 147/90 146/82 159/88 O2 Sat by Pulse 93 98 100 Oximetry 06/15/21 06/15/21 06/15/21 13:00 14:00 15:00 Pulse Rate 126 H 132 H 122 H Pulse Rate [ Anterior Bilateral Throughout] Pulse Rate [ From Monitor] Respiratory 22 22 20 Rate Respiratory Rate [Anterior Bilateral Throughout] Blood Pressure 152/83 144/74 142/85 O2 Sat by Pulse 96 95 96 Oximetry 06/15/21 16:00 Pulse Rate 117 H Pulse Rate [ Anterior Bilateral Throughout] Pulse Rate [ 117 H From Monitor] Respiratory 21 Rate Respiratory Rate [Anterior Bilateral Throughout] Blood Pressure 148/85 O2 Sat by Pulse 96 Oximetry Constitutional: no acute distress, alert, asleep, appears uncomfortable, other (middle aged male with mildly increased respiratory effort at rest on BIPAP) Eyes: non-icteric ENT: oropharynx moist, other (BIPAP FFM) Neck: supple, no JVD Effort: mildly labored Ascultation: Bilateral: diminished breath sounds (bases), rhonchi Percussion: Bilateral: not dull Cardiovascular: regular rate and rhythm Gastrointestinal: hypoactive bowel sounds, soft, non-tender, other (distended but very soft) Integumentary: normal Extremities: no cyanosis, no edema, pulses normal, no ischemia or petechiae Neurologic: pupils equal and round, CN II-XII normal, other (somnolent) Psychiatric: other (flat affect) CBC and BMP: 06/15/21 05:53 06/15/21 05:53 ABG, PT/INR, D-dimer: ABG ABG pH 7.408 (7.320-7.450) 06/13/21 11:51 POC ABG pCO2 42.7 mmHg (32.0-48.0) 06/13/21 11:51 ABG pCO2 29.0 mm Hg 05/30/21 22:32 POC ABG pO2 48.3 mmHg (83-108) L 06/13/21 11:51 ABG pO2 141.8 mm Hg (80.0-90.0) H 05/30/21 22:32 POC ABG HCO3 26.3 06/13/21 11:51 ABG O2 Saturation 84.9 (0-100) 06/13/21 11:51 PT/INR, D-dimer D-Dimer 3584.01 ng/mlDDU (0-234) H 05/27/21 08:09 Abnormal lab findings: Abnormal Labs 05/23/21 05/23/21 05/23/21 18:48 18:48 18:48 WBC 11.8 H RBC 5.18 H Hgb Hct MCV MCH MCHC RDW Plt Count Seg Neuts % (Manual) 84.0 H Lymphocytes % (Manual) Monocytes % (Manual) Nucleated RBC % Seg Neutrophils # Man 9.9 H Lymphocytes # (Manual) D-Dimer > 61143 H ABG pH POC ABG pCO2 POC ABG pO2 ABG pO2 ABG HCO3 ABG Base Excess ABG Hemoglobin ABG Oxyhemoglobin ABG Sodium ABG Potassium ABG Chloride ABG Glucose VBG pH Carboxyhemoglobin Sodium Potassium Chloride Carbon Dioxide BUN Creatinine Glucose POC Glucose Lactic Acid 2.30 H* Calcium Phosphorus Magnesium Ferritin AST Ammonia Lactate Dehydrogenase C-Reactive Protein Total Protein Albumin Arterial Blood Glucose Arterial Blood Ionized Calcium Urine WBC (Auto) Vancomycin Trough 05/23/21 05/23/21 05/23/21 18:48 18:48 18:48 WBC RBC Hgb Hct MCV MCH MCHC RDW Plt Count Seg Neuts % (Manual) Lymphocytes % (Manual) Monocytes % (Manual) Nucleated RBC % Seg Neutrophils # Man Lymphocytes # (Manual) D-Dimer ABG pH POC ABG pCO2 POC ABG pO2 ABG pO2 ABG HCO3 ABG Base Excess ABG Hemoglobin ABG Oxyhemoglobin ABG Sodium ABG Potassium ABG Chloride ABG Glucose VBG pH Carboxyhemoglobin Sodium 151 H Potassium 5.1 H Chloride 113.2 H Carbon Dioxide 17 L BUN 180 H Creatinine 4.3 H Glucose 114 H POC Glucose Lactic Acid Calcium Phosphorus Magnesium Ferritin 2000.0 H AST Ammonia 22.0 L Lactate Dehydrogenase 577 H C-Reactive Protein 8.80 H Total Protein 9.4 H Albumin 3.0 L Arterial Blood Glucose Arterial Blood Ionized Calcium Urine WBC (Auto) Vancomycin Trough 05/23/21 05/24/21 05/24/21 21:06 02:09 02:09 WBC RBC Hgb Hct MCV MCH MCHC RDW Plt Count Seg Neuts % (Manual) Lymphocytes % (Manual) Monocytes % (Manual) Nucleated RBC % Seg Neutrophils # Man Lymphocytes # (Manual) D-Dimer ABG pH POC ABG pCO2 POC ABG pO2 ABG pO2 ABG HCO3 ABG Base Excess ABG Hemoglobin ABG Oxyhemoglobin ABG Sodium ABG Potassium ABG Chloride ABG Glucose VBG pH 7.254 L Carboxyhemoglobin Sodium Potassium Chloride Carbon Dioxide BUN Creatinine Glucose POC Glucose Lactic Acid 2.10 H* 2.30 H* Calcium Phosphorus Magnesium Ferritin AST Ammonia Lactate Dehydrogenase C-Reactive Protein Total Protein Albumin Arterial Blood Glucose Arterial Blood Ionized Calcium Urine WBC (Auto) Vancomycin Trough 05/24/21 05/24/21 05/24/21 13:11 17:34 18:12 WBC RBC Hgb Hct MCV MCH MCHC RDW Plt Count Seg Neuts % (Manual) Lymphocytes % (Manual) Monocytes % (Manual) Nucleated RBC % Seg Neutrophils # Man Lymphocytes # (Manual) D-Dimer ABG pH POC ABG pCO2 POC ABG pO2 ABG pO2 ABG HCO3 ABG Base Excess ABG Hemoglobin ABG Oxyhemoglobin ABG Sodium ABG Potassium ABG Chloride ABG Glucose VBG pH Carboxyhemoglobin Sodium 155 H Potassium 6.9 H* D 5.7 H Chloride 121.9 H Carbon Dioxide 20 L BUN 139 H Creatinine 2.7 H Glucose 139 H POC Glucose 153 H Lactic Acid Calcium Phosphorus Magnesium Ferritin AST Ammonia Lactate Dehydrogenase C-Reactive Protein Total Protein Albumin Arterial Blood Glucose Arterial Blood Ionized Calcium Urine WBC (Auto) Vancomycin Trough 05/25/21 05/25/21 05/26/21 11:33 11:33 03:15 WBC 13.8 H RBC 5.06 H Hgb Hct MCV MCH MCHC RDW Plt Count Seg Neuts % (Manual) Lymphocytes % (Manual) Monocytes % (Manual) Nucleated RBC % Seg Neutrophils # Man Lymphocytes # (Manual) D-Dimer ABG pH POC ABG pCO2 POC ABG pO2 ABG pO2 ABG HCO3 ABG Base Excess ABG Hemoglobin ABG Oxyhemoglobin ABG Sodium ABG Potassium ABG Chloride ABG Glucose VBG pH Carboxyhemoglobin Sodium 164 H* D 166 H* Potassium 5.4 H 5.5 H Chloride 131.3 H 129.2 H Carbon Dioxide BUN 109 H 102 H Creatinine 1.9 H 1.8 H Glucose 117 H 113 H POC Glucose Lactic Acid Calcium Phosphorus Magnesium Ferritin AST Ammonia Lactate Dehydrogenase 711 H C-Reactive Protein 7.90 H Total Protein Albumin Arterial Blood Glucose Arterial Blood Ionized Calcium Urine WBC (Auto) Vancomycin Trough 05/26/21 05/26/21 05/26/21 03:15 03:15 03:15 WBC 13.1 H RBC 5.43 H Hgb 15.3 H Hct 48.5 H MCV MCH MCHC RDW 15.4 H Plt Count Seg Neuts % (Manual) Lymphocytes % (Manual) Monocytes % (Manual) Nucleated RBC % Seg Neutrophils # Man Lymphocytes # (Manual) D-Dimer 6229.14 H ABG pH POC ABG pCO2 POC ABG pO2 ABG pO2 ABG HCO3 ABG Base Excess ABG Hemoglobin ABG Oxyhemoglobin ABG Sodium ABG Potassium ABG Chloride ABG Glucose VBG pH Carboxyhemoglobin Sodium Potassium Chloride Carbon Dioxide BUN Creatinine Glucose POC Glucose Lactic Acid Calcium Phosphorus Magnesium Ferritin 2991.0 H AST Ammonia Lactate Dehydrogenase C-Reactive Protein Total Protein Albumin Arterial Blood Glucose Arterial Blood Ionized Calcium Urine WBC (Auto) Vancomycin Trough 05/27/21 05/27/21 05/27/21 08:09 08:09 08:09 WBC 12.4 H RBC 5.27 H Hgb Hct 46.6 H MCV MCH MCHC 31 L RDW 15.7 H Plt Count Seg Neuts % (Manual) Lymphocytes % (Manual) Monocytes % (Manual) Nucleated RBC % Seg Neutrophils # Man Lymphocytes # (Manual) D-Dimer 3584.01 H ABG pH POC ABG pCO2 POC ABG pO2 ABG pO2 ABG HCO3 ABG Base Excess ABG Hemoglobin ABG Oxyhemoglobin ABG Sodium ABG Potassium ABG Chloride ABG Glucose VBG pH Carboxyhemoglobin Sodium 174 H* Potassium Chloride 136.9 H Carbon Dioxide BUN 90 H Creatinine 1.8 H Glucose POC Glucose Lactic Acid Calcium Phosphorus Magnesium Ferritin AST Ammonia Lactate Dehydrogenase 642 H C-Reactive Protein 5.20 H Total Protein Albumin Arterial Blood Glucose Arterial Blood Ionized Calcium Urine WBC (Auto) Vancomycin Trough 05/27/21 05/28/21 05/28/21 08:09 07:31 07:31 WBC RBC Hgb Hct MCV MCH 27 L MCHC 31 L RDW Plt Count Seg Neuts % (Manual) 88.0 H Lymphocytes % (Manual) 11.0 L Monocytes % (Manual) Nucleated RBC % Seg Neutrophils # Man 8.3 H Lymphocytes # (Manual) 1.0 L D-Dimer ABG pH POC ABG pCO2 POC ABG pO2 ABG pO2 ABG HCO3 ABG Base Excess ABG Hemoglobin ABG Oxyhemoglobin ABG Sodium ABG Potassium ABG Chloride ABG Glucose VBG pH Carboxyhemoglobin Sodium 162 H* D Potassium Chloride 125.8 H Carbon Dioxide BUN 72 H Creatinine 1.6 H Glucose 131 H POC Glucose Lactic Acid Calcium Phosphorus Magnesium 3.00 H Ferritin 2742.0 H AST Ammonia Lactate Dehydrogenase C-Reactive Protein Total Protein Albumin Arterial Blood Glucose Arterial Blood Ionized Calcium Urine WBC (Auto) Vancomycin Trough 05/29/21 05/29/21 05/29/21 06:40 06:40 17:58 WBC 14.1 H RBC Hgb Hct MCV MCH 27 L MCHC 31 L RDW Plt Count Seg Neuts % (Manual) 85.0 H Lymphocytes % (Manual) 9.0 L Monocytes % (Manual) Nucleated RBC % 1.0 H Seg Neutrophils # Man 12.0 H Lymphocytes # (Manual) D-Dimer ABG pH 7.505 H POC ABG pCO2 30.3 L POC ABG pO2 128.1 H ABG pO2 ABG HCO3 ABG Base Excess ABG Hemoglobin 11.9 L ABG Oxyhemoglobin ABG Sodium ABG Potassium ABG Chloride 113.0 H ABG Glucose 110 H VBG pH Carboxyhemoglobin Sodium 148 H D Potassium Chloride 111.3 H Carbon Dioxide 20 L BUN 45 H Creatinine Glucose POC Glucose Lactic Acid Calcium Phosphorus 2.10 L D Magnesium Ferritin AST Ammonia Lactate Dehydrogenase C-Reactive Protein Total Protein Albumin Arterial Blood Glucose 110 H Arterial Blood Ionized Calcium 4.5 L Urine WBC (Auto) Vancomycin Trough 05/30/21 05/30/21 05/30/21 01:00 06:06 13:48 WBC RBC Hgb Hct MCV MCH MCHC RDW Plt Count Seg Neuts % (Manual) Lymphocytes % (Manual) Monocytes % (Manual) Nucleated RBC % Seg Neutrophils # Man Lymphocytes # (Manual) D-Dimer ABG pH POC ABG pCO2 POC ABG pO2 ABG pO2 90.9 H ABG HCO3 ABG Base Excess ABG Hemoglobin 11.8 L ABG Oxyhemoglobin ABG Sodium ABG Potassium ABG Chloride ABG Glucose VBG pH Carboxyhemoglobin Sodium 150 H Potassium Chloride 117.6 H Carbon Dioxide BUN 40 H Creatinine Glucose POC Glucose Lactic Acid Calcium 8.3 L Phosphorus Magnesium Ferritin AST Ammonia Lactate Dehydrogenase C-Reactive Protein Total Protein Albumin Arterial Blood Glucose Arterial Blood Ionized Calcium Urine WBC (Auto) 12.0 H Vancomycin Trough 05/30/21 05/31/21 05/31/21 22:32 02:22 02:22 WBC RBC Hgb 11.2 L Hct 34.8 L MCV MCH MCHC RDW Plt Count 127 L Seg Neuts % (Manual) 97.0 H Lymphocytes % (Manual) Monocytes % (Manual) Nucleated RBC % Seg Neutrophils # Man 10.5 H Lymphocytes # (Manual) 0.0 L D-Dimer ABG pH 7.454 H POC ABG pCO2 POC ABG pO2 ABG pO2 141.8 H ABG HCO3 19.9 L ABG Base Excess -2.7 L ABG Hemoglobin ABG Oxyhemoglobin ABG Sodium ABG Potassium ABG Chloride ABG Glucose VBG pH Carboxyhemoglobin Sodium 152 H Potassium Chloride 118.9 H Carbon Dioxide 19 L BUN 48 H Creatinine 1.5 H Glucose 101 H POC Glucose Lactic Acid Calcium 8.3 L Phosphorus Magnesium Ferritin AST Ammonia Lactate Dehydrogenase C-Reactive Protein Total Protein Albumin Arterial Blood Glucose Arterial Blood Ionized Calcium Urine WBC (Auto) Vancomycin Trough 05/31/21 05/31/21 06/01/21 11:42 21:28 07:10 WBC RBC Hgb Hct MCV MCH MCHC RDW Plt Count Seg Neuts % (Manual) Lymphocytes % (Manual) Monocytes % (Manual) Nucleated RBC % Seg Neutrophils # Man Lymphocytes # (Manual) D-Dimer ABG pH POC ABG pCO2 POC ABG pO2 ABG pO2 ABG HCO3 ABG Base Excess ABG Hemoglobin ABG Oxyhemoglobin ABG Sodium ABG Potassium ABG Chloride ABG Glucose VBG pH Carboxyhemoglobin Sodium 150 H Potassium Chloride 115.7 H Carbon Dioxide BUN 47 H Creatinine Glucose 115 H POC Glucose 161 H Lactic Acid Calcium Phosphorus Magnesium 2.50 H Ferritin AST Ammonia Lactate Dehydrogenase C-Reactive Protein Total Protein Albumin Arterial Blood Glucose Arterial Blood Ionized Calcium Urine WBC (Auto) Vancomycin Trough 20.2 H 06/01/21 06/01/21 06/01/21 07:10 07:54 10:39 WBC RBC Hgb 10.7 L Hct 33.5 L MCV MCH MCHC RDW Plt Count Seg Neuts % (Manual) 92.0 H Lymphocytes % (Manual) 4.0 L Monocytes % (Manual) Nucleated RBC % Seg Neutrophils # Man Lymphocytes # (Manual) 0.3 L D-Dimer ABG pH POC ABG pCO2 POC ABG pO2 ABG pO2 ABG HCO3 ABG Base Excess ABG Hemoglobin ABG Oxyhemoglobin ABG Sodium ABG Potassium ABG Chloride ABG Glucose VBG pH Carboxyhemoglobin Sodium 152 H Potassium Chloride 117.6 H Carbon Dioxide BUN 50 H Creatinine Glucose 140 H POC Glucose 127 H Lactic Acid Calcium 8.3 L Phosphorus Magnesium Ferritin AST Ammonia Lactate Dehydrogenase C-Reactive Protein Total Protein Albumin Arterial Blood Glucose Arterial Blood Ionized Calcium Urine WBC (Auto) Vancomycin Trough 06/01/21 06/01/21 06/01/21 11:11 16:16 21:45 WBC RBC Hgb Hct MCV MCH MCHC RDW Plt Count Seg Neuts % (Manual) Lymphocytes % (Manual) Monocytes % (Manual) Nucleated RBC % Seg Neutrophils # Man Lymphocytes # (Manual) D-Dimer ABG pH POC ABG pCO2 POC ABG pO2 ABG pO2 ABG HCO3 ABG Base Excess ABG Hemoglobin ABG Oxyhemoglobin ABG Sodium ABG Potassium ABG Chloride ABG Glucose VBG pH Carboxyhemoglobin Sodium Potassium Chloride Carbon Dioxide BUN Creatinine Glucose POC Glucose 120 H 129 H 150 H Lactic Acid Calcium Phosphorus Magnesium Ferritin AST Ammonia Lactate Dehydrogenase C-Reactive Protein Total Protein Albumin Arterial Blood Glucose Arterial Blood Ionized Calcium Urine WBC (Auto) Vancomycin Trough 06/02/21 06/02/21 06/02/21 06:53 06:53 07:52 WBC RBC Hgb 10.4 L Hct 32.4 L MCV MCH 27 L MCHC RDW Plt Count Seg Neuts % (Manual) 93.0 H Lymphocytes % (Manual) 3.0 L Monocytes % (Manual) Nucleated RBC % Seg Neutrophils # Man Lymphocytes # (Manual) 0.2 L D-Dimer ABG pH POC ABG pCO2 POC ABG pO2 ABG pO2 ABG HCO3 ABG Base Excess ABG Hemoglobin ABG Oxyhemoglobin ABG Sodium ABG Potassium ABG Chloride ABG Glucose VBG pH Carboxyhemoglobin Sodium 149 H Potassium Chloride 112.6 H Carbon Dioxide BUN 54 H Creatinine Glucose 123 H POC Glucose 116 H Lactic Acid Calcium 8.2 L Phosphorus Magnesium Ferritin AST Ammonia Lactate Dehydrogenase C-Reactive Protein Total Protein Albumin Arterial Blood Glucose Arterial Blood Ionized Calcium Urine WBC (Auto) Vancomycin Trough 06/03/21 06/03/21 06/03/21 05:57 05:57 21:23 WBC RBC Hgb 10.7 L Hct 33.0 L MCV 83 L MCH 27 L MCHC RDW Plt Count Seg Neuts % (Manual) 88.0 H Lymphocytes % (Manual) 8.0 L Monocytes % (Manual) Nucleated RBC % 2.0 H Seg Neutrophils # Man Lymphocytes # (Manual) 0.6 L D-Dimer ABG pH POC ABG pCO2 POC ABG pO2 39.0 L ABG pO2 ABG HCO3 ABG Base Excess ABG Hemoglobin ABG Oxyhemoglobin 69.1 L ABG Sodium 134.1 L ABG Potassium ABG Chloride ABG Glucose 135 H VBG pH Carboxyhemoglobin Sodium Potassium Chloride Carbon Dioxide BUN 36 H Creatinine Glucose 102 H POC Glucose Lactic Acid Calcium 8.0 L Phosphorus 2.20 L D Magnesium Ferritin AST Ammonia Lactate Dehydrogenase C-Reactive Protein Total Protein Albumin Arterial Blood Glucose 135 H Arterial Blood Ionized Calcium Urine WBC (Auto) Vancomycin Trough 06/04/21 06/04/21 06/04/21 07:04 07:04 17:42 WBC RBC Hgb 11.3 L Hct 34.9 L MCV MCH 27 L MCHC RDW Plt Count Seg Neuts % (Manual) Lymphocytes % (Manual) 5.0 L Monocytes % (Manual) Nucleated RBC % Seg Neutrophils # Man 8.4 H Lymphocytes # (Manual) 0.5 L D-Dimer ABG pH POC ABG pCO2 POC ABG pO2 ABG pO2 ABG HCO3 ABG Base Excess ABG Hemoglobin ABG Oxyhemoglobin ABG Sodium ABG Potassium ABG Chloride ABG Glucose VBG pH Carboxyhemoglobin Sodium Potassium Chloride Carbon Dioxide BUN 27 H Creatinine Glucose POC Glucose 136 H Lactic Acid Calcium 8.2 L Phosphorus Magnesium Ferritin AST Ammonia Lactate Dehydrogenase C-Reactive Protein Total Protein Albumin Arterial Blood Glucose Arterial Blood Ionized Calcium Urine WBC (Auto) Vancomycin Trough 06/05/21 06/05/21 06/05/21 05:10 12:32 15:45 WBC RBC Hgb Hct MCV MCH MCHC RDW Plt Count Seg Neuts % (Manual) Lymphocytes % (Manual) Monocytes % (Manual) Nucleated RBC % Seg Neutrophils # Man Lymphocytes # (Manual) D-Dimer ABG pH POC ABG pCO2 POC ABG pO2 ABG pO2 ABG HCO3 ABG Base Excess ABG Hemoglobin ABG Oxyhemoglobin ABG Sodium ABG Potassium ABG Chloride ABG Glucose VBG pH Carboxyhemoglobin Sodium Potassium 3.5 L Chloride Carbon Dioxide BUN 35 H Creatinine Glucose 130 H POC Glucose 122 H 119 H Lactic Acid Calcium 8.2 L Phosphorus Magnesium Ferritin AST Ammonia Lactate Dehydrogenase C-Reactive Protein Total Protein Albumin Arterial Blood Glucose Arterial Blood Ionized Calcium Urine WBC (Auto) Vancomycin Trough 06/05/21 06/05/21 06/06/21 20:06 21:27 00:04 WBC RBC Hgb Hct MCV MCH MCHC RDW Plt Count Seg Neuts % (Manual) Lymphocytes % (Manual) Monocytes % (Manual) Nucleated RBC % Seg Neutrophils # Man Lymphocytes # (Manual) D-Dimer ABG pH 7.456 H POC ABG pCO2 POC ABG pO2 ABG pO2 ABG HCO3 ABG Base Excess ABG Hemoglobin 10.3 L ABG Oxyhemoglobin ABG Sodium ABG Potassium 3.1 L ABG Chloride ABG Glucose 125 H VBG pH Carboxyhemoglobin 0.3 L Sodium Potassium Chloride Carbon Dioxide BUN Creatinine Glucose POC Glucose 113 H Lactic Acid Calcium Phosphorus Magnesium Ferritin AST Ammonia Lactate Dehydrogenase C-Reactive Protein 19.60 H Total Protein Albumin Arterial Blood Glucose 125 H Arterial Blood Ionized Calcium Urine WBC (Auto) Vancomycin Trough 06/06/21 06/06/21 06/07/21 04:35 22:37 05:54 WBC RBC Hgb Hct MCV MCH MCHC RDW Plt Count Seg Neuts % (Manual) Lymphocytes % (Manual) Monocytes % (Manual) Nucleated RBC % Seg Neutrophils # Man Lymphocytes # (Manual) D-Dimer ABG pH POC ABG pCO2 POC ABG pO2 ABG pO2 ABG HCO3 ABG Base Excess ABG Hemoglobin ABG Oxyhemoglobin ABG Sodium ABG Potassium ABG Chloride ABG Glucose VBG pH Carboxyhemoglobin Sodium Potassium Chloride Carbon Dioxide BUN 43 H Creatinine Glucose POC Glucose 114 H 130 H Lactic Acid Calcium 7.6 L Phosphorus Magnesium Ferritin AST Ammonia Lactate Dehydrogenase C-Reactive Protein Total Protein Albumin Arterial Blood Glucose Arterial Blood Ionized Calcium Urine WBC (Auto) Vancomycin Trough 10/10/2706/07/21 06/07/21 07:32 10:03 11:36 WBC RBC 3.63 L Hgb 9.8 L Hct 30.3 L MCV 83 L MCH 27 L MCHC RDW Plt Count Seg Neuts % (Manual) Lymphocytes % (Manual) Monocytes % (Manual) Nucleated RBC % Seg Neutrophils # Man Lymphocytes # (Manual) D-Dimer ABG pH POC ABG pCO2 POC ABG pO2 ABG pO2 ABG HCO3 ABG Base Excess ABG Hemoglobin ABG Oxyhemoglobin ABG Sodium ABG Potassium ABG Chloride ABG Glucose VBG pH Carboxyhemoglobin Sodium Potassium 3.2 L Chloride 108.5 H Carbon Dioxide BUN 36 H Creatinine Glucose 139 H POC Glucose 125 H Lactic Acid Calcium 8.0 L Phosphorus Magnesium Ferritin AST Ammonia Lactate Dehydrogenase C-Reactive Protein Total Protein Albumin Arterial Blood Glucose Arterial Blood Ionized Calcium Urine WBC (Auto) Vancomycin Trough 06/07/21 06/07/21 06/08/21 17:54 22:14 07:18 WBC RBC Hgb Hct MCV MCH MCHC RDW Plt Count Seg Neuts % (Manual) Lymphocytes % (Manual) Monocytes % (Manual) Nucleated RBC % Seg Neutrophils # Man Lymphocytes # (Manual) D-Dimer ABG pH POC ABG pCO2 POC ABG pO2 ABG pO2 ABG HCO3 ABG Base Excess ABG Hemoglobin ABG Oxyhemoglobin ABG Sodium ABG Potassium ABG Chloride ABG Glucose VBG pH Carboxyhemoglobin Sodium 149 H Potassium Chloride 110.2 H Carbon Dioxide BUN 31 H Creatinine Glucose 131 H POC Glucose 121 H 131 H Lactic Acid Calcium 8.1 L Phosphorus Magnesium Ferritin AST Ammonia Lactate Dehydrogenase C-Reactive Protein Total Protein Albumin Arterial Blood Glucose Arterial Blood Ionized Calcium Urine WBC (Auto) Vancomycin Trough 06/08/21 06/08/21 06/08/21 07:45 12:07 18:02 WBC RBC Hgb Hct MCV MCH MCHC RDW Plt Count Seg Neuts % (Manual) Lymphocytes % (Manual) Monocytes % (Manual) Nucleated RBC % Seg Neutrophils # Man Lymphocytes # (Manual) D-Dimer ABG pH POC ABG pCO2 POC ABG pO2 ABG pO2 ABG HCO3 ABG Base Excess ABG Hemoglobin ABG Oxyhemoglobin ABG Sodium ABG Potassium ABG Chloride ABG Glucose VBG pH Carboxyhemoglobin Sodium Potassium Chloride Carbon Dioxide BUN Creatinine Glucose POC Glucose 120 H 127 H 148 H Lactic Acid Calcium Phosphorus Magnesium Ferritin AST Ammonia Lactate Dehydrogenase C-Reactive Protein Total Protein Albumin Arterial Blood Glucose Arterial Blood Ionized Calcium Urine WBC (Auto) Vancomycin Trough 06/09/21 06/09/21 06/09/21 05:51 05:51 11:37 WBC 3.9 L RBC 3.38 L Hgb 9.4 L Hct 28.5 L MCV MCH MCHC RDW Plt Count Seg Neuts % (Manual) Lymphocytes % (Manual) Monocytes % (Manual) Nucleated RBC % Seg Neutrophils # Man Lymphocytes # (Manual) D-Dimer ABG pH POC ABG pCO2 POC ABG pO2 ABG pO2 ABG HCO3 ABG Base Excess ABG Hemoglobin ABG Oxyhemoglobin ABG Sodium ABG Potassium ABG Chloride ABG Glucose VBG pH Carboxyhemoglobin Sodium Potassium Chloride 108.4 H Carbon Dioxide BUN 32 H Creatinine Glucose 137 H POC Glucose 115 H Lactic Acid Calcium 7.5 L Phosphorus Magnesium Ferritin AST 55 H Ammonia Lactate Dehydrogenase C-Reactive Protein 4.10 H Total Protein 5.6 L Albumin 2.0 L Arterial Blood Glucose Arterial Blood Ionized Calcium Urine WBC (Auto) Vancomycin Trough 06/09/21 06/09/21 06/10/21 17:32 22:18 01:52 WBC RBC 3.62 L Hgb 9.9 L Hct 29.8 L MCV 82 L MCH 27 L MCHC RDW Plt Count Seg Neuts % (Manual) Lymphocytes % (Manual) Monocytes % (Manual) Nucleated RBC % Seg Neutrophils # Man Lymphocytes # (Manual) D-Dimer ABG pH POC ABG pCO2 POC ABG pO2 ABG pO2 ABG HCO3 ABG Base Excess ABG Hemoglobin ABG Oxyhemoglobin ABG Sodium ABG Potassium ABG Chloride ABG Glucose VBG pH Carboxyhemoglobin Sodium Potassium Chloride Carbon Dioxide BUN Creatinine Glucose POC Glucose 113 H 110 H Lactic Acid Calcium Phosphorus Magnesium Ferritin AST Ammonia Lactate Dehydrogenase C-Reactive Protein Total Protein Albumin Arterial Blood Glucose Arterial Blood Ionized Calcium Urine WBC (Auto) Vancomycin Trough 06/10/21 06/10/21 06/10/21 01:52 16:14 22:45 WBC RBC Hgb Hct MCV MCH MCHC RDW Plt Count Seg Neuts % (Manual) Lymphocytes % (Manual) Monocytes % (Manual) Nucleated RBC % Seg Neutrophils # Man Lymphocytes # (Manual) D-Dimer ABG pH POC ABG pCO2 POC ABG pO2 ABG pO2 ABG HCO3 ABG Base Excess ABG Hemoglobin ABG Oxyhemoglobin ABG Sodium ABG Potassium ABG Chloride ABG Glucose VBG pH Carboxyhemoglobin Sodium Potassium Chloride 108.2 H Carbon Dioxide BUN 32 H Creatinine 1.4 H Glucose POC Glucose 111 H 107 H Lactic Acid Calcium 7.8 L Phosphorus Magnesium Ferritin AST 55 H Ammonia Lactate Dehydrogenase C-Reactive Protein Total Protein 5.6 L Albumin 1.9 L Arterial Blood Glucose Arterial Blood Ionized Calcium Urine WBC (Auto) Vancomycin Trough 06/11/21 06/11/21 06/11/21 05:51 05:51 05:51 WBC RBC 3.35 L Hgb 9.1 L Hct 28.1 L MCV MCH 27 L MCHC RDW Plt Count 117 L Seg Neuts % (Manual) 93.0 H Lymphocytes % (Manual) 1.0 L Monocytes % (Manual) Nucleated RBC % Seg Neutrophils # Man Lymphocytes # (Manual) 0.0 L D-Dimer ABG pH POC ABG pCO2 POC ABG pO2 ABG pO2 ABG HCO3 ABG Base Excess ABG Hemoglobin ABG Oxyhemoglobin ABG Sodium ABG Potassium ABG Chloride ABG Glucose VBG pH Carboxyhemoglobin Sodium 146 H Potassium Chloride 110.9 H Carbon Dioxide BUN 40 H Creatinine Glucose 119 H POC Glucose Lactic Acid Calcium 7.8 L Phosphorus Magnesium Ferritin AST Ammonia Lactate Dehydrogenase C-Reactive Protein Total Protein Albumin Arterial Blood Glucose Arterial Blood Ionized Calcium Urine WBC (Auto) Vancomycin Trough 22.6 H 06/11/21 06/11/21 06/11/21 08:28 11:36 15:47 WBC RBC Hgb Hct MCV MCH MCHC RDW Plt Count Seg Neuts % (Manual) Lymphocytes % (Manual) Monocytes % (Manual) Nucleated RBC % Seg Neutrophils # Man Lymphocytes # (Manual) D-Dimer ABG pH POC ABG pCO2 POC ABG pO2 ABG pO2 ABG HCO3 ABG Base Excess ABG Hemoglobin ABG Oxyhemoglobin ABG Sodium ABG Potassium ABG Chloride ABG Glucose VBG pH Carboxyhemoglobin Sodium Potassium Chloride Carbon Dioxide BUN Creatinine Glucose POC Glucose 109 H 149 H 139 H Lactic Acid Calcium Phosphorus Magnesium Ferritin AST Ammonia Lactate Dehydrogenase C-Reactive Protein Total Protein Albumin Arterial Blood Glucose Arterial Blood Ionized Calcium Urine WBC (Auto) Vancomycin Trough 06/11/21 06/12/21 06/12/21 21:42 04:00 04:00 WBC 4.0 L RBC 3.50 L Hgb 9.4 L Hct 29.9 L MCV MCH 27 L MCHC 31 L RDW 15.3 H Plt Count 126 L Seg Neuts % (Manual) 88.0 H Lymphocytes % (Manual) Monocytes % (Manual) 12.0 H Nucleated RBC % Seg Neutrophils # Man Lymphocytes # (Manual) 0.0 L D-Dimer ABG pH POC ABG pCO2 POC ABG pO2 ABG pO2 ABG HCO3 ABG Base Excess ABG Hemoglobin ABG Oxyhemoglobin ABG Sodium ABG Potassium ABG Chloride ABG Glucose VBG pH Carboxyhemoglobin Sodium 149 H Potassium Chloride 114.1 H Carbon Dioxide BUN 37 H Creatinine Glucose 137 H POC Glucose 124 H Lactic Acid Calcium 8.0 L Phosphorus Magnesium Ferritin AST Ammonia Lactate Dehydrogenase C-Reactive Protein Total Protein Albumin Arterial Blood Glucose Arterial Blood Ionized Calcium Urine WBC (Auto) Vancomycin Trough 06/12/21 06/13/21 06/13/21 06:37 00:14 06:05 WBC 4.3 L RBC 3.39 L Hgb 9.2 L Hct 28.6 L MCV MCH 27 L MCHC RDW 15.3 H Plt Count 107 L Seg Neuts % (Manual) 77.0 H Lymphocytes % (Manual) 1.0 L Monocytes % (Manual) Nucleated RBC % 1.0 H Seg Neutrophils # Man Lymphocytes # (Manual) 0.0 L D-Dimer ABG pH POC ABG pCO2 POC ABG pO2 ABG pO2 ABG HCO3 ABG Base Excess ABG Hemoglobin ABG Oxyhemoglobin ABG Sodium ABG Potassium ABG Chloride ABG Glucose VBG pH Carboxyhemoglobin Sodium Potassium Chloride Carbon Dioxide BUN Creatinine Glucose POC Glucose 128 H 149 H Lactic Acid Calcium Phosphorus Magnesium Ferritin AST Ammonia Lactate Dehydrogenase C-Reactive Protein Total Protein Albumin Arterial Blood Glucose Arterial Blood Ionized Calcium Urine WBC (Auto) Vancomycin Trough 06/13/21 06/13/21 06/14/21 06:05 11:51 04:29 WBC 4.2 L RBC 3.21 L Hgb 8.7 L Hct 26.7 L MCV 83 L MCH 27 L MCHC RDW 15.3 H Plt Count 87 L Seg Neuts % (Manual) 96 H Lymphocytes % (Manual) 2 L Monocytes % (Manual) Nucleated RBC % Seg Neutrophils # Man Lymphocytes # (Manual) 0.0 L D-Dimer ABG pH POC ABG pCO2 POC ABG pO2 48.3 L ABG pO2 ABG HCO3 ABG Base Excess ABG Hemoglobin 10.7 L ABG Oxyhemoglobin 84.1 L ABG Sodium 145.5 H ABG Potassium ABG Chloride 116.0 H ABG Glucose VBG pH Carboxyhemoglobin Sodium 146 H Potassium 3.5 L Chloride 112.3 H Carbon Dioxide BUN 38 H Creatinine Glucose 112 H POC Glucose Lactic Acid Calcium 8.1 L Phosphorus Magnesium Ferritin AST Ammonia Lactate Dehydrogenase C-Reactive Protein Total Protein Albumin Arterial Blood Glucose Arterial Blood Ionized Calcium Urine WBC (Auto) Vancomycin Trough 06/14/21 06/14/21 06/14/21 04:29 06:17 23:51 WBC RBC Hgb Hct MCV MCH MCHC RDW Plt Count Seg Neuts % (Manual) Lymphocytes % (Manual) Monocytes % (Manual) Nucleated RBC % Seg Neutrophils # Man Lymphocytes # (Manual) D-Dimer ABG pH POC ABG pCO2 POC ABG pO2 ABG pO2 ABG HCO3 ABG Base Excess ABG Hemoglobin ABG Oxyhemoglobin ABG Sodium ABG Potassium ABG Chloride ABG Glucose VBG pH Carboxyhemoglobin Sodium 148 H Potassium Chloride 115.3 H Carbon Dioxide BUN 40 H Creatinine Glucose 124 H POC Glucose 106 H 135 H Lactic Acid Calcium 8.2 L Phosphorus Magnesium Ferritin AST Ammonia Lactate Dehydrogenase C-Reactive Protein Total Protein Albumin Arterial Blood Glucose Arterial Blood Ionized Calcium Urine WBC (Auto) Vancomycin Trough 06/15/21 06/15/21 06/15/21 05:23 05:53 05:53 WBC 3.8 L RBC 2.94 L Hgb 8.0 L Hct 24.0 L MCV 81 L MCH 27 L MCHC RDW 15.6 H Plt Count 87 L Seg Neuts % (Manual) 95.0 H Lymphocytes % (Manual) 1.0 L Monocytes % (Manual) Nucleated RBC % 1.0 H Seg Neutrophils # Man Lymphocytes # (Manual) 0.0 L D-Dimer ABG pH POC ABG pCO2 POC ABG pO2 ABG pO2 ABG HCO3 ABG Base Excess ABG Hemoglobin ABG Oxyhemoglobin ABG Sodium ABG Potassium ABG Chloride ABG Glucose VBG pH Carboxyhemoglobin Sodium Potassium Chloride 110.5 H Carbon Dioxide BUN 43 H Creatinine Glucose 143 H POC Glucose 134 H Lactic Acid Calcium 8.1 L Phosphorus 2.10 L D Magnesium Ferritin AST Ammonia Lactate Dehydrogenase C-Reactive Protein Total Protein Albumin Arterial Blood Glucose Arterial Blood Ionized Calcium Urine WBC (Auto) Vancomycin Trough Allied health notes reviewed: nursing
[2021-06-15] MEDS: VANCOMYCIN/NS 1 GM/250 ML 1 GM/250 ML BAG IV SCH ×2 (19:08→22:09)
[2021-06-15] MEDS ORDERED: TOTAL PARENTERAL NUTRITION 1,800 ML IV SCH (20:00)
[2021-06-15] MEDS ORDERED: ACETAMINOPHEN 650 MG RECT SUPP PR PRN (21:13)
[2021-06-16] MEDS: CEFEPIME/NS 2 GM/100 ML 2 GM/100 ML BAG IV SCH ×3 (06:26→22:32)
[2021-06-16] MEDS: metroNIDAZOLE/NS 500 MG/100 ML 500 MG/100 ML BAG IV SCH ×3 (06:26→22:21)
[2021-06-16] MEDS: HEPARIN 5,000 UNIT/1 ML VIAL SUB-Q SCH ×3 (06:27→22:38)
[2021-06-16 06:53] LABS: Hematocrit 27.9 % (35.5-45.6); Mean Corpuscular HGB Conc 32 % (32-34); Mean Corpuscular Volume 84 fl (84-94); Red Blood Count 3.34 M/mm3 (3.65-5.03); Red Cell Distribution Width 15.5 % (13.2-15.2)
[2021-06-16 06:54] LABS: Platelet Count 72 K/mm3 (140-440)
[2021-06-16 07:06] LABS: BUN/Creatinine Ratio 38; Blood Urea Nitrogen 53 mg/dL (9-20); Calcium 8.1 mg/dL (8.4-10.2); Hemolysis Index 11
[2021-06-16] MEDS ORDERED: CALCIUM GLUCONATE 2,000 MG in SODIUM CHLORIDE 0.9% 100 ML IV ONE (09:00)
[2021-06-16] MEDS: methylPREDNISolone Sod Succinate 40 MG/1 ML INJ IV SCH ×2 (09:16→22:22)
[2021-06-16] MEDS: IPRATROPIUM/ALBUTEROL SULFATE 3 ML AMPUL.NEB IH SCH ×3 (10:23→20:16)
--- NOTE | 2021-06-16 10:24 | Progress Note ---
Assessment and Plan Impression: * Acute kidney injury secondary to ATN likely related to COVID 19 * Acute hypoxic respiratory failure secondary to COVID 19 PNA * Azotemia * Hyperkalemia * Metabolic acidosis * Hypernatremia Plan: * creatinine is stable 1.2->1.4->1.2->1.1->1.2->1.3->1.3 > 1.4 , on D5W for free water * Sodium slightly improved at 146->149->146->148->143 > 142 , continue free water as above, po hydration if able * off baclofen * agree with Ca repletion * Keep MAP>65 * Management of COVID 19 PNA to primary team/ID * Dose medications for renal function * AM labs * Renal diet * follow up lytes prn * Prognosis guarded Subjective Date of service: 06/16/21 Principal diagnosis: Acute hypoxemic resp failure; Pneumonia; PUI COVID-19 infection Interval history: Patient is currently on high flow oxygen at 100%. Oxygen saturation is at 100% as well. Currently condom catheter in place. TPN infusing. Objective - Vital Signs Vital signs: Vital Signs - 12hr 06/15/21 06/15/21 06/15/21 23:00 23:44 23:50 Temperature 100.8 F H Pulse Rate 115 H 103 H Pulse Rate [ From Monitor] Respiratory 24 Rate Blood Pressure 133/75 O2 Sat by Pulse 96 Oximetry 06/16/21 06/16/21 06/16/21 00:00 01:00 02:01 Temperature Pulse Rate 103 H 95 H 88 Pulse Rate [ From Monitor] Respiratory 12 23 25 H Rate Blood Pressure 138/82 138/82 146/83 O2 Sat by Pulse 90 97 98 Oximetry 06/16/21 06/16/21 06/16/21 03:01 03:55 04:00 Temperature 98.5 F Pulse Rate 96 H 79 Pulse Rate [ From Monitor] Respiratory 29 H 18 Rate Blood Pressure 146/83 152/88 O2 Sat by Pulse 98 100 Oximetry 06/16/21 06/16/21 06/16/21 04:40 05:00 06:00 Temperature Pulse Rate 76 70 78 Pulse Rate [ 78 From Monitor] Respiratory 18 18 Rate Blood Pressure 151/88 146/82 O2 Sat by Pulse 99 100 Oximetry 06/16/21 06/16/21 06/16/21 07:00 07:39 08:00 Temperature 98.0 F Pulse Rate 81 71 Pulse Rate [ From Monitor] Respiratory 18 16 Rate Blood Pressure 156/93 152/88 O2 Sat by Pulse 100 100 Oximetry 06/16/21 09:31 Temperature Pulse Rate Pulse Rate [ From Monitor] Respiratory Rate Blood Pressure O2 Sat by Pulse 96 Oximetry - General Appearance General appearance: well-developed, well-nourished, appears stated age EENT: PERRL, mucous membranes moist Neck: no JVD, no thyromegaly, no carotid bruit, supple Respiratory: Present: Ronchi (Few scattered rhonchi) Cardiology: regular, normal heart rate, S1S2, no murmurs Gastrointestinal: normal, normoactive bowel sounds Integumentary: no rash, other (No edema) - Lab 06/16/21 05:59 06/16/21 05:59 Most recent lab results ABG pH 7.408 (7.320-7.450) 06/13/21 11:51 ABG pCO2 29.0 mm Hg 05/30/21 22:32 ABG pO2 141.8 mm Hg (80.0-90.0) H 05/30/21 22:32 ABG HCO3 19.9 mmol/L (20.0-26.0) L 05/30/21 22:32 ABG O2 Saturation 84.9 (0-100) 06/13/21 11:51 Calcium 8.1 mg/dL (8.4-10.2) L 06/16/21 05:59 Phosphorus 2.90 mg/dL (2.5-4.5) D 06/16/21 05:59 Magnesium 2.00 mg/dL (1.7-2.3) 06/16/21 05:59 Medications & Allergies - Medications Allergies/Adverse Reactions: Allergies No Known Allergies Allergy (Unverified 02/12/17 15:47) Home Medications: Home Medications Medication Instructions Recorded Confirmed Last Taken Type No Known Home Medications [No 05/31/21 05/31/21 Unknown History Reported Home Medications] Active Medications: Generic Name Dose Route Start Last Admin Trade Name Freq PRN Reason Stop Dose Admin Acetaminophen 650 mg 06/15/21 21:13 Acetaminophen 650 Mg Rect Supp NE Q6H PRN Pain MILD(1-3)/Fever >100.5/LUCAS Albuterol/Ipratropium 1 ampul 06/07/21 20:00 06/15/21 21:24 Ipratropium/Albuterol Sulfate 3 Ml Ampul.Neb IH 1 ampul TIDRT MIKE Administration Lipase/Protease/Amylase 1 each 06/03/21 12:23 Lipase 10,500/Protease 25,000/Amylase 43,750 (Units) Dr Rodney FEEDTUBE PRN PRN For Clogged Feeding Tube Heparin Sodium (Porcine) 5,000 unit 05/24/21 06:00 06/16/21 06:27 Heparin 5,000 Unit/1 Ml Vial SUB-Q 5,000 unit Q8HR MIKE Administration Metronidazole 500 mg in 100 mls @ 100 mls/hr 06/08/21 13:00 06/16/21 06:26 Flagyl 500 Mg/100 Ml IV 100 mls/hr Q8H MIKE Administration Protocol Cefepime HCl 2 gm in 100 mls @ 200 mls/hr 06/08/21 23:08 06/16/21 06:26 Cefepime/Ns 2 Gm/100 Ml IV 200 mls/hr Q8HR MIKE Administration Protocol Dextrose 1,000 mls @ 75 mls/hr 06/13/21 07:00 06/14/21 22:56 D5w IV 0 mls/hr DIRECT MIKE Infusion Amino Acids/Electrolytes/Dextrose 1,800 mls @ 75 mls/hr 06/15/21 20:00 06/15/21 21:25 Tpn Adult IV 06/16/21 19:59 75 mls/hr DAILY@2000 MIKE Administration Protocol Methylprednisolone Sodium Succinate 10 mg 06/16/21 10:00 06/16/21 09:16 Methylprednisolone Sod Succinate 40 Mg/1 Ml Inj IV 10 mg Q12HR MIKE Administration Morphine Sulfate 2 mg 05/23/21 22:01 06/14/21 00:20 Morphine 2 Mg/1 Ml Inj IV 2 mg Q4H PRN Administration Pain, Moderate (4-6) Ondansetron HCl 4 mg 06/04/21 13:41 06/09/21 22:05 Ondansetron 4 Mg/2 Ml Inj IV 4 mg Q4H PRN Administration Nausea And Vomiting Sodium Chloride 10 ml 05/23/21 22:01 06/15/21 22:15 Sodium Chloride 0.9% 10 Ml Flush Syringe IV 10 ml PRN PRN Administration LINE FLUSH
[2021-06-16 12:17] LABS: Band Neutrophils # (Manual) 0.1 K/mm3; Total Cells Counted 100
[2021-06-16 12:18] LABS: Platelet Estimate Consistent w Auto
--- NOTE | 2021-06-16 13:47 | Progress Note ---
Assessment and Plan Cultures: SARS CoV2 PCR: Positive as outpatient. Negative here x 2 05/23/2021 blood culture: no growth 05/29/2021 blood culture no growth 05/30/2021 blood culture no growth 05/30/2021 urine culture [place] 05/31/2021 blood culture no growth 06/03/2021 blood culture no growth today A/P: 55/M with initially seen on 05/23/2021 due to bilateral pneumonia with positive Covid test outpatient but negative x2 inpatient noted with new fever and repeat CT chest shows bilateral basilar pneumonia with cavitation: #Sepsis: No fever since 06/04/2021. Likely secondary to bilateral pneumonia. #Bilateral pneumonia with cavitation: ? secondary to COVID-19, tested positive as outpatient, but negative here x 2. During the last week noted elevated procalcitonin from 0.3-->24 in the setting of resolving ANGELES. Also noted CRP from 5.2-->19. CT abdomen shows severe aspiration type pneumonia in both bases with a currently 30 lesion of 20 cm on the left lower lobe. #Acute hypoxic respiratory failure: On BiPAP. Likely due to pneumonia. VQ scan low probability for PE. #Recent ileus: Resolved. #Acute renal failure: Nephrology on board. Improving. #Hypernatremia: Per primary team/ renal improving #Tachycardia #Elevated ddimer: VQ low prob for PE Recs: -Taper off of steroid -Procal improving. -Start cefepime and metronidazole -Continue vancomycin -Follow up MRSA PCR. If negative can stop vancomycin and no need to discahrge with Bactrim. -Given cavitation with likely abscess will plan to treat with IV in house and discharge with PO antibiotics to complete 3 weeks. -Plan to discharge on Augmentin 875/125mg q12h and Bactrim DS q12 G. Aileen Ferguson MD [facility] O: [phone] F: [phone] Subjective Date of service: 06/16/21 Principal diagnosis: Acute hypoxemic resp failure; Pneumonia; PUI COVID-19 infection Interval history: Afebrile, white count remains slightly low. Objective - Exam Narrative Exam: General appearance: Alert on BiPAP Eyes: anicteric sclerae, moist conjunctivae; no lid-lag; PERRLA HENT: Normocephalic, Atraumatic; normal external ears, nares open, oropharynx limited Neck: supple, tracheal midline, no JVD Lungs: Rhonchi CV: RRR no murmur Abdomen: Soft, non-tender; no masses or hepatosplenomegaly Extremities: no edema, no cyanosis Skin: No rash. Psych: no agitated Neuro: alert follows commands - Constitutional Vitals: Vital Signs Temp Pulse Resp BP Pulse Ox 98.5 F 84 16 152/88 96 06/16/21 12:05 06/16/21 10:23 06/16/21 10:23 06/16/21 08:00 06/16/21 09:31 Temperature -Last 24 Hours Temperature 98.5 F Temperature 98.0 F Temperature 98.5 F Temperature 100.8 F Temperature 103.0 F - Labs CBC & Chem 7: 06/16/21 05:59 06/16/21 05:59 Labs: Abnormal lab results 06/16/21 06/16/21 06/16/21 Range/Units 05:22 05:59 05:59 WBC 3.4 L (4.5-11.0) K/mm3 RBC 3.34 L (3.65-5.03) M/mm3 Hgb 9.0 L (11.8-15.2) gm/dl Hct 27.9 L (35.5-45.6) % MCH 27 L (28-32) pg RDW 15.5 H (13.2-15.2) % Plt Count 72 L (140-440) K/mm3 Seg Neuts % (Manual) 97.0 H (40.0-70.0) % Lymphocytes # (Manual) 0.0 L (1.2-5.4) K/mm3 Chloride 108.8 H (98-107) mmol/L BUN 53 H (9-20) mg/dL Creatinine 1.4 H (0.8-1.3) mg/dL Glucose 160 H (75-100) mg/dL POC Glucose 141 H (70-105) mg/dL Calcium 8.1 L (8.4-10.2) mg/dL 06/16/21 Range/Units 11:31 WBC (4.5-11.0) K/mm3 RBC (3.65-5.03) M/mm3 Hgb (11.8-15.2) gm/dl Hct (35.5-45.6) % MCH (28-32) pg RDW (13.2-15.2) % Plt Count (140-440) K/mm3 Seg Neuts % (Manual) (40.0-70.0) % Lymphocytes # (Manual) (1.2-5.4) K/mm3 Chloride (98-107) mmol/L BUN (9-20) mg/dL Creatinine (0.8-1.3) mg/dL Glucose (75-100) mg/dL POC Glucose 129 H (70-105) mg/dL Calcium (8.4-10.2) mg/dL
--- NOTE | 2021-06-16 15:05 | Progress Note ---
Assessment and Plan Assessment and plan: #Acute hypoxic respiratory failure-stable -Currently on BiPAP, will maintain SpO2 >90% -VQ scan low probability for PE on admission -Continue IV methylprednisone 20 mg every 12 hours. We will continue to wean per ID recommendations. Will decrease dose to 10 mg every 12 hours on 06/16/2021. -s/p 1 dose of Lasix -TTE 06/06: LVEF 55 to 60%, no valvular or chamber abnormalities -Pulmonary consulted, recommendations appreciated -patient continues to deteriorate will possibly need bronchoscopy to address the cavitary lesion; will refer to Pulmonology recs -Continue PPN; initiated 06/14/2021. #COVID-19 pneumonia #Left lower lobe cavititation #Left lower lobe abscess -CT abdomen pelvis revealed severe bilateral pneumonia and a cavitary lesion in the left lower lobe -likely secondary to aspiration during ileus -CT chest (06/12/2021) revealing cavitary lesion in LLL approximately 5x6cm and diffusse ground-glass opacities consistent with COVID-19 infection (prior) -CRP 19.6 and procal 24.30, repeat pending -continue cefepime and flagyl per ID recommendations -Discontinued vancomycin (06/16/2021) in the setting of negative blood cultures. -ID plans to treat abscess for a total of 3 weeks (IV while inpatient and po upon discharge). Would be discharged with Augmentin 875/125mg q12hrs (total 3 week course ends on 06/29/2021. -completed azithromycin and Rocephin in past #Severe sepsis #Fever -Patient spiked fever of 39.4 Celsius (06/15/2021). Given rectal Tylenol. -repeat blood cultures no growth to date -procalcitonin 24.30 -continue vancomycin, cefepime and flagyl -s/p zosyn -likely 2/2 to PNA #Hypocalcemia -Calcium 7.8 -Repleted; continue to monitor #COVID-19 infection -Diagnosed on 05/11 -s/p 10 days of steroids, restarted on 06/04 due to worsening Pulmonary status -Tapering steroids per ID recommendations #Sauijdsctdlfc-[id number]-baipwo secondary to poor oral intake #Acute encephalopathy-Resolved #ANGELES, resolved #Hyperkalemia, resolved #Ileus-resolved #Lactic acidosis-resolved #Discharge planning -Patient and family agreed to the home with home health upon discharge -will continue to wean oxygen to at least 4 L/min prior to discharge Disposition Plan: Continue medical management Total Time Spent with Patient (Minutes): 30 History Interval history: No acute events overnight Hospitalist Physical - Constitutional Vitals: Temp Pulse Resp BP Pulse Ox 98.5 F 80 20 144/81 100 06/16/21 12:05 06/16/21 14:00 06/16/21 14:00 06/16/21 14:00 06/16/21 14:00 General appearance: Present: no acute distress, cachectic - EENT Eyes: Present: PERRL, EOM intact ENT: hearing intact, clear oral mucosa, dentition normal, other (Currently on BiPAP) - Neck Neck: Present: supple, normal ROM - Respiratory Respiratory effort: labored - Cardiovascular Rhythm: regular Heart Sounds: Present: S1 & S2 - Extremities Extremities: no ischemia, pulses intact, pulses symmetrical, No edema, normal temperature, normal color Peripheral Pulses: within normal limits - Abdominal General gastrointestinal: soft, non-tender, non-distended, normal bowel sounds - Integumentary Integumentary: Present: clear, warm, dry - Psychiatric Psychiatric: appropriate mood/affect, intact judgment & insight, cooperative - Neurologic Neurologic: CNII-XII intact, moves all extremities - Allied Health Allied health notes reviewed: nursing HEART Score - HEART Score EKG: Non-specific Age: 45-65 Risk factors: 1-2 risk factors Troponin: Troponin T < 0.010 ng/mL (0.00-0.029) 05/23/21 18:48 - Critical Actions Critical Actions: 0-3 pts:0.9-1.7%risk of adverse cardiac event.Candidate for discharge Results - Labs CBC & Chem 7: 06/16/21 05:59 06/16/21 05:59 Labs: Laboratory Last Values WBC 3.4 K/mm3 (4.5-11.0) L 06/16/21 05:59 RBC 3.34 M/mm3 (3.65-5.03) L 06/16/21 05:59 Hgb 9.0 gm/dl (11.8-15.2) L 06/16/21 05:59 Hct 27.9 % (35.5-45.6) L 06/16/21 05:59 MCV 84 fl (84-94) 06/16/21 05:59 MCH 27 pg (28-32) L 06/16/21 05:59 MCHC 32 % (32-34) 06/16/21 05:59 RDW 15.5 % (13.2-15.2) H 06/16/21 05:59 Plt Count 72 K/mm3 (140-440) L 06/16/21 05:59 Lymph % (Auto) Apns 06/01/21 07:10 Bledso[place] % (Auto) Apns 06/01/21 07:10 Eos % (Auto) Apns 06/01/21 07:10 Baso % (Auto) Apns 06/01/21 07:10 Lymph # (Auto) Apns 06/01/21 07:10 [place] # (Auto) Apns 06/01/21 07:10 Eos # (Auto) Apns 06/01/21 07:10 Baso # (Auto) Apns 06/01/21 07:10 Add Manual Diff Complete 06/16/21 05:59 Total Counted 100 06/16/21 05:59 Seg Neutrophils % Apns 06/15/21 05:53 Seg Neuts % (Manual) 97.0 % (40.0-70.0) H 06/16/21 05:59 Band Neutrophils % 3.0 % 06/16/21 05:59 Lymphocytes % (Manual) 1.0 % (13.4-35.0) L 06/15/21 05:53 Reactive Lymphs % (Man) 1.0 % 06/01/21 07:10 Monocytes % (Manual) 2.0 % (0.0-7.3) 06/15/21 05:53 Myelocytes % 1.0 % 06/13/21 06:05 Nucleated RBC % Not Reportable 06/16/21 05:59 Seg Neutrophils # Apns 06/01/21 07:10 Seg Neutrophils # Man 3.3 K/mm3 (1.8-7.7) 06/16/21 05:59 Band Neutrophils # 0.1 K/mm3 06/16/21 05:59 Lymphocytes # (Manual) 0.0 K/mm3 (1.2-5.4) L 06/16/21 05:59 Abs React Lymphs (Man) 0.0 K/mm3 06/16/21 05:59 Monocytes # (Manual) 0.0 K/mm3 (0.0-0.8) 06/16/21 05:59 Eosinophils # (Manual) 0.0 K/mm3 (0.0-0.4) 06/16/21 05:59 Basophils # (Manual) 0.0 K/mm3 (0.0-0.1) 06/16/21 05:59 Metamyelocytes # 0.0 K/mm3 06/16/21 05:59 Myelocytes # 0.0 K/mm3 06/16/21 05:59 Promyelocytes # 0.0 K/mm3 06/16/21 05:59 Blast Cells # 0.0 K/mm3 06/16/21 05:59 WBC Morphology Not Reportable 06/16/21 05:59 Hypersegmented Neuts Not Reportable 06/16/21 05:59 Hyposegmented Neuts Not Reportable 06/16/21 05:59 Hypogranular Neuts Not Reportable 06/16/21 05:59 Smudge Cells Not Reportable 06/16/21 05:59 Toxic Granulation Not Reportable 06/16/21 05:59 Toxic Vacuolation Not Reportable 06/16/21 05:59 Dohle Bodies Not Reportable 06/16/21 05:59 Pelger-Huet Anomaly Not Reportable 06/16/21 05:59 Kaci Rods Not Reportable 06/16/21 05:59 Platelet Estimate Consistent w auto 06/16/21 05:59 Clumped Platelets Not Reportable 06/16/21 05:59 Plt Clumps, EDTA Not Reportable 06/16/21 05:59 Large Platelets Not Reportable 06/16/21 05:59 Giant Platelets Not Reportable 06/16/21 05:59 Platelet Satelliting Not Reportable 06/16/21 05:59 Plt Morphology Comment Not Reportable 06/16/21 05:59 RBC Morphology Not Reportable 06/16/21 05:59 Dimorphic RBCs Not Reportable 06/16/21 05:59 Polychromasia Not Reportable 06/16/21 05:59 Hypochromasia Not Reportable 06/16/21 05:59 Poikilocytosis Not Reportable 06/16/21 05:59 Anisocytosis Not Reportable 06/16/21 05:59 Microcytosis Not Reportable 06/16/21 05:59 Macrocytosis Not Reportable 06/16/21 05:59 Spherocytes Not Reportable 06/16/21 05:59 Pappenheimer Bodies Not Reportable 06/16/21 05:59 Sickle Cells Not Reportable 06/16/21 05:59 Target Cells Not Reportable 06/16/21 05:59 Tear Drop Cells Not Reportable 06/16/21 05:59 Ovalocytes Not Reportable 06/16/21 05:59 Helmet Cells Not Reportable 06/16/21 05:59 [place] Bodies Not Reportable 06/16/21 05:59 [place] Rings Not Reportable 06/16/21 05:59 [place] Cells Not Reportable 06/16/21 05:59 Bite Cells Not Reportable 06/16/21 05:59 Crenated Cell Not Reportable 06/16/21 05:59 Elliptocytes Not Reportable 06/16/21 05:59 Acanthocytes (Spur) Not Reportable 06/16/21 05:59 Rouleaux Not Reportable 06/16/21 05:59 Hemoglobin C Crystals Not Reportable 06/16/21 05:59 Schistocytes Not Reportable 06/16/21 05:59 Malaria parasites Not Reportable 06/16/21 05:59 Dick Bodies Not Reportable 06/16/21 05:59 Hem Pathologist Commnt No 06/16/21 05:59 D-Dimer 3584.01 ng/mlDDU (0-234) H 05/27/21 08:09 ABG pH 7.408 (7.320-7.450) 06/13/21 11:51 POC ABG pCO2 42.7 mmHg (32.0-48.0) 06/13/21 11:51 ABG pCO2 29.0 mm Hg 05/30/21 22:32 POC ABG pO2 48.3 mmHg (83-108) L 06/13/21 11:51 ABG pO2 141.8 mm Hg (80.0-90.0) H 05/30/21 22:32 POC ABG HCO3 26.3 06/13/21 11:51 ABG HCO3 19.9 mmol/L (20.0-26.0) L 05/30/21 22:32 ABG O2 Saturation 84.9 (0-100) 06/13/21 11:51 ABG O2 Content 19.9 (0.0-44) 05/30/21 22:32 POC ABG Base Excess 1.5 06/13/21 11:51 ABG Base Excess -2.7 mmol/L (-2.0-3.0) L 05/30/21 22:32 ABG Hemoglobin 10.7 (12.0-17.5) L 06/13/21 11:51 ABG Oxyhemoglobin 84.1 (94-98) L 06/13/21 11:51 ABG Carboxyhemoglobin 1.1 % (0.0-5.0) 05/30/21 22:32 ABG Methemoglobin 0.3 (0.0-1.5) 06/13/21 11:51 ABG Sodium 145.5 mmol/L (136.0-145.0) H 06/13/21 11:51 ABG Potassium 3.5 mmol/L (3.40-4.50) 06/13/21 11:51 ABG Chloride 116.0 mmol/L (98-107) H 06/13/21 11:51 ABG Glucose 87 mg/dL (65-95) 06/13/21 11:51 VBG pH 7.254 (7.320-7.420) L 05/24/21 02:09 Oxyhemoglobin 97.1 % (95.0-99.0) 05/30/21 22:32 Carboxyhemoglobin 0.7 (0.5-1.5) 06/13/21 11:51 FiO2 70 % 05/30/21 22:32 FiO2 % 100 06/13/21 11:51 Sodium 142 mmol/L (137-145) 06/16/21 05:59 Potassium 3.8 mmol/L (3.6-5.0) 06/16/21 05:59 Chloride 108.8 mmol/L (98-107) H 06/16/21 05:59 Carbon Dioxide 25 mmol/L (22-30) 06/16/21 05:59 Anion Gap 12 mmol/L 06/16/21 05:59 BUN 53 mg/dL (9-20) H 06/16/21 05:59 Creatinine 1.4 mg/dL (0.8-1.3) H 06/16/21 05:59 Estimated GFR > 60 ml/min 06/16/21 05:59 BUN/Creatinine Ratio 38 % 06/16/21 05:59 Glucose 160 mg/dL (75-100) H 06/16/21 05:59 POC Glucose 129 mg/dL (70-105) H 06/16/21 11:31 Lactic Acid 1.20 mmol/L (0.7-2.0) 06/06/21 00:04 Calcium 8.1 mg/dL (8.4-10.2) L 06/16/21 05:59 Phosphorus 2.90 mg/dL (2.5-4.5) D 06/16/21 05:59 Magnesium 2.00 mg/dL (1.7-2.3) 06/16/21 05:59 Ferritin 2742.0 ng/mL (30.0-300.0) H 05/27/21 08:09 Total Bilirubin 0.40 mg/dL (0.1-1.2) 06/10/21 01:52 AST 55 units/L (5-40) H 06/10/21 01:52 ALT 21 units/L (7-56) 06/10/21 01:52 Alkaline Phosphatase 88 units/L (35-129) 06/10/21 01:52 Ammonia 22.0 umol/L (25-60) L 05/23/21 18:48 Lactate Dehydrogenase 642 units/L (91-180) H 05/27/21 08:09 Troponin T < 0.010 ng/mL (0.00-0.029) 05/23/21 18:48 C-Reactive Protein 4.10 mg/dL (0.00-1.30) H 06/09/21 05:51 Total Protein 5.6 g/dL (6.3-8.2) L 06/10/21 01:52 Albumin 1.9 g/dL (3.9-5) L 06/10/21 01:52 Albumin/Globulin Ratio 0.5 % 06/10/21 01:52 Procalcitonin 7.52 ng/mL (<0.15) 06/09/21 05:51 TSH 1.150 mlU/mL (0.270-4.200) 05/23/21 18:48 Arterial Blood Glucose 87 mg/dL (65-95) 06/13/21 11:51 Arterial Blood Ionized Calcium 4.5 mg/dL (4.6-5.3) L 05/29/21 17:58 Urine Color Eli (Yellow) 05/30/21 01:00 Urine Turbidity Cloudy (Clear) 05/30/21 01:00 Urine pH 5.0 (5.0-7.0) 05/30/21 01:00 Ur Specific [place] 1.019 (1.003-1.030) 05/30/21 01:00 Urine Protein 100 mg/dl mg/dL (Negative) 05/30/21 01:00 Urine Glucose (UA) Neg mg/dL (Negative) 05/30/21 01:00 Urine Ketones Neg mg/dL (Negative) 05/30/21 01:00 Urine Blood Mod (Negative) 05/30/21 01:00 Urine Nitrite Neg (Negative) 05/30/21 01:00 Urine Bilirubin Neg (Negative) 05/30/21 01:00 Urine Urobilinogen 4.0 mg/dL (<2.0) 05/30/21 01:00 Ur Leukocyte Esterase Neg (Negative) 05/30/21 01:00 Urine WBC (Auto) 12.0 /HPF (0.0-6.0) H 05/30/21 01:00 Urine RBC (Auto) 21.0 /HPF (0.0-6.0) 05/30/21 01:00 U Epithel Cells (Auto) 2.0 /HPF (0-13.0) 05/30/21 01:00 Uric Acid Crystals Few 05/30/21 01:00 Urine Mucus Few /HPF 05/30/21 01:00 Urine Yeast (Budding) 2+ /HPF 05/30/21 01:00 Vancomycin Trough 22.6 ug/mL (5.0-20.0) H 06/11/21 05:51 Plasma/Serum Alcohol < 0.01 % (0-0.07) 05/23/21 18:48 Proteinase 3 (PR3) Ab <1.0 AI (<1.0) 05/24/21 20:57 Myeloperoxidase Ab <1.0 AI (<1.0) 05/24/21 20:57 Complement C3 108 mg/dL (82-185) 05/24/21 20:57 Complement C4 29 mg/dL (15-53) 05/24/21 20:57 Coronavirus (PCR) Negative (Negative) 05/26/21 08:41 Blood Type A POSITIVE 05/29/21 08:15 Antibody Screen Negative 05/29/21 08:15 Heart/IV: Voiding Method Condom Catheter Active Medications - Current Medications Current Medications: Generic Name Dose Route Start Last Admin Trade Name Freq PRN Reason Stop Dose Admin Acetaminophen 650 mg 06/15/21 21:13 Acetaminophen 650 Mg Rect Supp SC Q6H PRN Pain MILD(1-3)/Fever >100.5/LUCAS Albuterol/Ipratropium 1 ampul 06/07/21 20:00 06/16/21 13:40 Ipratropium/Albuterol Sulfate 3 Ml Ampul.Neb IH Not Given TIDRT [facility] Lipase/Protease/Amylase 1 each 06/03/21 12:23 Lipase 10,500/Protease 25,000/Amylase 43,750 (Units) Cap FEEDTUBE PRN PRN For Clogged Feeding Tube Heparin Sodium (Porcine) 5,000 unit 05/24/21 06:00 06/16/21 13:15 Heparin 5,000 Unit/1 Ml Vial SUB-Q 5,000 unit Q8HR MIKE Administration Metronidazole 500 mg in 100 mls @ 100 mls/hr 06/08/21 13:00 06/16/21 13:09 Flagyl 500 Mg/100 Ml IV 100 mls/hr Q8H MIKE Administration Protocol Cefepime HCl 2 gm in 100 mls @ 200 mls/hr 06/08/21 23:08 06/16/21 13:15 Cefepime/Ns 2 Gm/100 Ml IV 200 mls/hr Q8HR MIKE Administration Protocol Dextrose 1,000 mls @ 75 mls/hr 06/13/21 07:00 06/14/21 22:56 D5w IV 0 mls/hr DIRECT MIKE Infusion Amino Acids/Electrolytes/Dextrose 1,800 mls @ 75 mls/hr 06/15/21 20:00 06/15/21 21:25 Tpn Adult IV 06/16/21 19:59 75 mls/hr DAILY@1999 [facility] Administration Protocol Amino Acids/Electrolytes/Dextrose 1,800 mls @ 75 mls/hr 06/16/21 20:00 Tpn Adult IV 06/17/21 19:59 DAILY@1999 [facility] Protocol Methylprednisolone Sodium Succinate 10 mg 06/16/21 10:00 06/16/21 09:16 Methylprednisolone Sod Succinate 40 Mg/1 Ml Inj IV 10 mg Q12HR MIKE Administration Morphine Sulfate 2 mg 05/23/21 22:01 06/14/21 00:20 Morphine 2 Mg/1 Ml Inj IV 2 mg Q4H PRN Administration Pain, Moderate (4-6) Ondansetron HCl 4 mg 06/04/21 13:41 06/09/21 22:05 Ondansetron 4 Mg/2 Ml Inj IV 4 mg Q4H PRN Administration Nausea And Vomiting Sodium Chloride 10 ml 05/23/21 22:01 06/15/21 22:15 Sodium Chloride 0.9% 10 Ml Flush Syringe IV 10 ml PRN PRN Administration LINE FLUSH Nutrition/Malnutrition Assess - Dietary Evaluation Nutrition/Malnutrition Findings: Nutrition Notes Start: 05/25/21 09:33 Freq: Status: Active Protocol: Document 06/16/21 12:49 MONTEZ (Rec: 06/16/21 13:39 [email or web address] [id number]) Nutrition Notes Need for Assessment generated from: MD Order Initial or Follow up Reassessment Current Diagnosis Sepsis,Respiratory Failure Other Pertinent Diagnosis Covid 19+, pneu Current Diet TPN; via PICC, continuous at 75 ml/hr Labs/Tests 06/16: Cl 108.8, BUN 53, Cr 1. 4, Glu 160, Phos 2.9, Ca 8.1, Platelets 72. Pertinent Medications 06/16: Reviewed. Height 5 ft 11 in Weight 74.5 kg [place] Body Weight (kg) 78.18 BMI 22.8 Weight change and time frame Wt flucuations noted Weight Status Appropriate Subjective/Other Information Day 3 PPN. Pt remains on bipap . No BM per chart since 06/09. Percent of energy/protein needs met: 33%/80% Burn Absent Trauma Absent GI Symptoms Constipation Skin Integrity/Comment Integumentary; clear, warm dry . Current % PO Other Minimum of two criteria No physical signs of malnutrition #2 Nutrition Diagnosis No nutrition diagnosis at this time Comments: Not ongoing report on Integumentary concerns As per progress notes 06/15 &06/16. Diagnosis Progress(for reassessment Improved documentation) #1 Nutrition Diagnosis Inadequate oral intake Comments: Nutritional supplement beverage ordered 06/03: TF ordered 06/09: diet advanced to mechanical soft, thin liquids. Tolerating well 06/14 d/t continuous Bipap requiring TPN 06/16 TPN continues Etiology acute illness As Evidenced by Signs and Symptoms PO intake 0% Diagnosis Progress(for reassessment Worsened documentation) Is patient on ventilator? No Is Patient Ambulatory and/or Out of Bed No REE-([facility] [employer]-confined to bed) 1926.936 Kcal/Kg value to use for calculation 25 Approximate Energy Requirements Using 1863 kcal/Kg Calculation Used for Recommendations Kcal/kg Additional Notes protein needs: 1.0-1.2 g/Kg/ day; 78-94 gr/day; 312-376 Kcal/day (from IBW). fluid needs: 1.0 ml/kcal, or as per MD. Nutrition Intervention Change Diet Order: Continue TPN, continuous @ 75 ml/hr. Nutrition Support: TPN via PICC at 75 ml/hr. 882 mOsm, AA 4.7%, Dex 6%, Na 50 mEq, K 60 mEq, Ca 0 mEq, Phos 15 mmol, Mg 8 mEq, Cl/CO2 0/ 100%. Mvit 10 ml, Thiamine 100 mg (day 3), Trace Element ( MTE-5) 1.0 ml. Kcal 680 Protein (gm) 85 Carbohydrates (gm) 100 Fat (gm) 0 Fluid (mL) 1,800 Fiber (gm) 0 % RDI: 36.5% Kcal, 90.4% protein Goal #1 Maintain body weight within +/ -3% of current BWt during LOS. Goal #2 Reach and maintain acceptable chemistry lab values during LOS. Follow-Up By: 06/17/21 Additional Comments Continue monitoring hydration, integumentary condition, and BM. - Attestation Statement I have reviewed and agreed w/ Malnutrition eval & tx plan: Yes
--- NOTE | 2021-06-16 19:53 | Progress Note ---
Assessment and Plan 55-year-old -[place] male who was diagnosed with COVID-19 on May 11, 2021 presents to the emergency room today with complaints of shortness of breath and decreased oral intake over the past 10 to 12 days. Patient also has known history of CVA about 20 years ago and it is unknown whether patient had any residual deficits. Patient has not been able to communicate well and most of the history was gotten from the ER staff. Initial oxygen saturation according to EMS was about 70% and patient was placed on nonrebreather. He was eventually placed on oxygen by nasal cannula upon arrival in the emergency room with significant improvement in his oxygen saturation. Work-up in the emergency room reveals a D-dimer greater than 10,000, sodium 151 potassium of 5.1, BUN of 180) and creatinine of 4.3. Patient had a lactic acid of 2.3. WBC was 11.8. CT scan of the head shows no acute abnormality. Chest x-ray shows mild patchy multifocal airspace disease throughout the lungs. No pleural effusion. VQ scan done showed low probability for pulmonary embolism. Patient being admitted with pneumonia possibly secondary to COVID-19, hypoxia and encephalopathy. Patients COVID 19 PCR reported negative. Patient sleeping. Patient is on on BIPAP 20/12, rate 14, FIO2 100% and O2 saturation running 100%. Patient febrile. No Leukocytosis. Blood pressure 151/83, Pulse 68.Respiration 18. Chest xray 06/03/21: reported diffuse hazy airspace opacities bilaterally, mildly worsened compared to reference exam. No pneumothorax. Chest xray 06/09/21: reported slightly improved bilateral pulmonary opacities. No pneumothorax. Patients CAT scan of abdomen done 0n 06/06/21 reported Severe aspiration type pneumonia identified throughout both lower lungs with cavitary lesion within the left lower lobe measuring about [address] of chest done on 06/12/21 reported 1. Diffuse groundglass densities with pulmonary edema, septal thickening and bilateral pulmonary infiltrates are noted in bilateral lungs. Findings could represent viral/Covid pneumonia, atypical pneumonia, nonspecific. 2. Cavitary process within the left lower lung measuring 5.5 x 4.4 cm. Findings could be related to infection, abscess however follow-up after treatment to exclude malignancy. Chest xray done 06/13/21 reported 1. Diffuse groundglass densities with pulmonary edema, septal thickening and bilateral pulmonary infiltrates are noted in bilateral lungs. Findings could represent viral/Covid pneumonia, atypical pneumonia, nonspecific. 2. Cavitary process within the left lower lung measuring 5.5 x 4.4 cm. Findings could be related to infection, abscess however follow-up after treatment to exclude malignancy. BIPAP settings changed to 20/10, rate 14, FIO2 90% Patient presently on Cefepime, Flagyl, Vancomycin, I/V solumedrol and S/C Heparin, and albuterol/atrovent aerosol treatments. I spent critical care time of 35 minutes, reviewing the chart, examine the patient, review CAT scan of chest, lab results, talking to the respiratory therapy and nursing staff and work up plan of treatment in this critically ill patient. - Patient Problems (1) Acute respiratory failure with hypoxia Current Visit: Yes Status: Acute Plan to address problem: BIPAP 20/10, rate 14, FIO2 90% Continue I/V solumedrol. Continue S/C heparin. Recommend GI prophylaxis. Continue albuterol/atrovent aerosol treatments. (2) Abscess of left lung with pneumonia Current Visit: Yes Status: Acute Plan to address problem: Pneumonia and abscess likely from aspiration. Patient is on cefepime, Flagyl and vancomycin. (3) Suspected 2019 novel coronavirus infection Current Visit: Yes Status: Acute Plan to address problem: Patient coronavirus PCR is negative. Subjective Date of service: 06/16/21 Principal diagnosis: Acute hypoxemic resp failure; Pneumonia; PUI COVID-19 infe ction Interval history: 55-year-old -[place] male who was diagnosed with COVID-19 on May 11, 2021 presents to the emergency room today with complaints of shortness of breath and decreased oral intake over the past 10 to 12 days. Patient also has known history of CVA about 20 years ago and it is unknown whether patient had any residual deficits. Patient has not been able to communicate well and most of the history was gotten from the ER staff. Initial oxygen saturation according to EMS was about 70% and patient was placed on nonrebreather. He was eventually placed on oxygen by nasal cannula upon arrival in the emergency room with significant improvement in his oxygen saturation. Work-up in the emergency room reveals a D-dimer greater than 10,000, sodium 151 potassium of 5.1, BUN of 180) and creatinine of 4.3. Patient had a lactic acid of 2.3. WBC was 11.8. CT scan of the head shows no acute abnormality. Chest x-ray shows mild patchy multifocal airspace disease throughout the lungs. No pleural effusion. VQ scan done showed low probability for pulmonary embolism. Patient being admitted with pneumonia possibly secondary to COVID-19, hypoxia and encephalopathy. Patients COVID 19 PCR reported negative. Patient sleeping. Patient is on on BIPAP 20/12, rate 14, FIO2 100% and O2 saturation running 100%. Patient febrile. No Leukocytosis. Blood pressure 151/83, Pulse 68.Respiration 18. Chest xray 06/03/21: reported diffuse hazy airspace opacities bilaterally, mildly worsened compared to reference exam. No pneumothorax. Chest xray 06/09/21: reported slightly improved bilateral pulmonary opacities. No pneumothorax. Patients CAT scan of abdomen done 0n 06/06/21 reported Severe aspiration type pneumonia identified throughout both lower lungs with cavitary lesion within the left lower lobe measuring about [address] of chest done on 06/12/21 reported 1. Diffuse groundglass densities with pulmonary edema, septal thickening and bilateral pulmonary infiltrates are noted in bilateral lungs. Findings could represent viral/Covid pneumonia, atypical pneumonia, nonspecific. 2. Cavitary process within the left lower lung measuring 5.5 x 4.4 cm. Findings could be related to infection, abscess however follow-up after treatment to exclude malignancy. Chest xray done 06/13/21 reported 1. Diffuse groundglass densities with pulmonary edema, septal thickening and bilateral pulmonary infiltrates are noted in bilateral lungs. Findings could represent viral/Covid pneumonia, atypical pneumonia, nonspecific. 2. Cavitary process within the left lower lung measuring 5.5 x 4.4 cm. Findings could be related to infection, abscess however follow-up after treatment to exclude malignancy. Changed bipap settings to 20/10, rate 14, FIO2 90%. Patient presently on Cefepime, Flagyl, Vancomycin, I/V solumedrol and S/C Heparin, and albuterol/atrovent aerosol treatments. Recommend GI prophylaxis. Objective Vital Signs - 12hr 06/16/21 06/16/21 06/16/21 08:00 09:00 09:31 Temperature Pulse Rate 80 70 Pulse Rate [ Anterior Bilateral Throughout] Pulse Rate [ From Monitor] Respiratory 16 15 Rate Respiratory Rate [Anterior Bilateral Throughout] Blood Pressure 152/88 146/81 O2 Sat by Pulse 100 96 96 Oximetry 06/16/21 06/16/21 06/16/21 10:00 10:23 11:00 Temperature Pulse Rate 77 102 H Pulse Rate [ 84 Anterior Bilateral Throughout] Pulse Rate [ 80 From Monitor] Respiratory 19 30 H Rate Respiratory 16 Rate [Anterior Bilateral Throughout] Blood Pressure 154/77 157/80 O2 Sat by Pulse 84 76 L Oximetry 06/16/21 06/16/21 06/16/21 12:00 12:05 13:00 Temperature 98.5 F Pulse Rate 84 82 Pulse Rate [ Anterior Bilateral Throughout] Pulse Rate [ From Monitor] Respiratory 20 20 Rate Respiratory Rate [Anterior Bilateral Throughout] Blood Pressure 157/79 149/82 O2 Sat by Pulse 97 100 Oximetry 06/16/21 06/16/21 06/16/21 14:00 15:00 16:00 Temperature Pulse Rate 77 80 77 Pulse Rate [ Anterior Bilateral Throughout] Pulse Rate [ 80 From Monitor] Respiratory 20 23 18 Rate Respiratory Rate [Anterior Bilateral Throughout] Blood Pressure 144/81 151/79 153/83 O2 Sat by Pulse 100 95 94 Oximetry 06/16/21 06/16/21 06/16/21 16:47 17:00 17:37 Temperature 98.3 F Pulse Rate 75 78 Pulse Rate [ Anterior Bilateral Throughout] Pulse Rate [ From Monitor] Respiratory 28 H 21 Rate Respiratory Rate [Anterior Bilateral Throughout] Blood Pressure 161/83 O2 Sat by Pulse 99 99 Oximetry 06/16/21 18:00 Temperature Pulse Rate 75 Pulse Rate [ Anterior Bilateral Throughout] Pulse Rate [ 82 From Monitor] Respiratory 22 Rate Respiratory Rate [Anterior Bilateral Throughout] Blood Pressure 148/85 O2 Sat by Pulse 100 Oximetry Constitutional: no acute distress, asleep, other (middle aged male with mildly increased respiratory effort at rest on BIPAP) Eyes: non-icteric ENT: oropharynx moist, other (BIPAP FFM) Neck: supple, no JVD Effort: mildly labored Ascultation: Bilateral: diminished breath sounds (bases), rhonchi Percussion: Bilateral: not dull Cardiovascular: regular rate and rhythm Gastrointestinal: hypoactive bowel sounds, soft, non-tender, other (distended but very soft) Integumentary: normal Extremities: no cyanosis, no edema, pulses normal, no ischemia or petechiae Neurologic: pupils equal and round, CN II-XII normal, other (somnolent) Psychiatric: other (flat affect) CBC and BMP: 06/16/21 05:59 06/16/21 05:59 ABG, PT/INR, D-dimer: ABG ABG pH 7.408 (7.320-7.450) 06/13/21 11:51 POC ABG pCO2 42.7 mmHg (32.0-48.0) 06/13/21 11:51 ABG pCO2 29.0 mm Hg 05/30/21 22:32 POC ABG pO2 48.3 mmHg (83-108) L 06/13/21 11:51 ABG pO2 141.8 mm Hg (80.0-90.0) H 05/30/21 22:32 POC ABG HCO3 26.3 06/13/21 11:51 ABG O2 Saturation 84.9 (0-100) 06/13/21 11:51 PT/INR, D-dimer D-Dimer 3584.01 ng/mlDDU (0-234) H 05/27/21 08:09 Abnormal lab findings: Abnormal Labs 05/23/21 05/23/21 05/23/21 18:48 18:48 18:48 WBC 11.8 H RBC 5.18 H Hgb Hct MCV MCH MCHC RDW Plt Count Seg Neuts % (Manual) 84.0 H Lymphocytes % (Manual) Monocytes % (Manual) Nucleated RBC % Seg Neutrophils # Man 9.9 H Lymphocytes # (Manual) D-Dimer > 29721 H ABG pH POC ABG pCO2 POC ABG pO2 ABG pO2 ABG HCO3 ABG Base Excess ABG Hemoglobin ABG Oxyhemoglobin ABG Sodium ABG Potassium ABG Chloride ABG Glucose VBG pH Carboxyhemoglobin Sodium Potassium Chloride Carbon Dioxide BUN Creatinine Glucose POC Glucose Lactic Acid 2.30 H* Calcium Phosphorus Magnesium Ferritin AST Ammonia Lactate Dehydrogenase C-Reactive Protein Total Protein Albumin Arterial Blood Glucose Arterial Blood Ionized Calcium Urine WBC (Auto) Vancomycin Trough 05/23/21 05/23/21 05/23/21 18:48 18:48 18:48 WBC RBC Hgb Hct MCV MCH MCHC RDW Plt Count Seg Neuts % (Manual) Lymphocytes % (Manual) Monocytes % (Manual) Nucleated RBC % Seg Neutrophils # Man Lymphocytes # (Manual) D-Dimer ABG pH POC ABG pCO2 POC ABG pO2 ABG pO2 ABG HCO3 ABG Base Excess ABG Hemoglobin ABG Oxyhemoglobin ABG Sodium ABG Potassium ABG Chloride ABG Glucose VBG pH Carboxyhemoglobin Sodium 151 H Potassium 5.1 H Chloride 113.2 H Carbon Dioxide 17 L BUN 180 H Creatinine 4.3 H Glucose 114 H POC Glucose Lactic Acid Calcium Phosphorus Magnesium Ferritin 2000.0 H AST Ammonia 22.0 L Lactate Dehydrogenase 577 H C-Reactive Protein 8.80 H Total Protein 9.4 H Albumin 3.0 L Arterial Blood Glucose Arterial Blood Ionized Calcium Urine WBC (Auto) Vancomycin Trough 05/23/21 05/24/21 05/24/21 21:06 02:09 02:09 WBC RBC Hgb Hct MCV MCH MCHC RDW Plt Count Seg Neuts % (Manual) Lymphocytes % (Manual) Monocytes % (Manual) Nucleated RBC % Seg Neutrophils # Man Lymphocytes # (Manual) D-Dimer ABG pH POC ABG pCO2 POC ABG pO2 ABG pO2 ABG HCO3 ABG Base Excess ABG Hemoglobin ABG Oxyhemoglobin ABG Sodium ABG Potassium ABG Chloride ABG Glucose VBG pH 7.254 L Carboxyhemoglobin Sodium Potassium Chloride Carbon Dioxide BUN Creatinine Glucose POC Glucose Lactic Acid 2.10 H* 2.30 H* Calcium Phosphorus Magnesium Ferritin AST Ammonia Lactate Dehydrogenase C-Reactive Protein Total Protein Albumin Arterial Blood Glucose Arterial Blood Ionized Calcium Urine WBC (Auto) Vancomycin Trough 05/24/21 05/24/21 05/24/21 13:11 17:34 18:12 WBC RBC Hgb Hct MCV MCH MCHC RDW Plt Count Seg Neuts % (Manual) Lymphocytes % (Manual) Monocytes % (Manual) Nucleated RBC % Seg Neutrophils # Man Lymphocytes # (Manual) D-Dimer ABG pH POC ABG pCO2 POC ABG pO2 ABG pO2 ABG HCO3 ABG Base Excess ABG Hemoglobin ABG Oxyhemoglobin ABG Sodium ABG Potassium ABG Chloride ABG Glucose VBG pH Carboxyhemoglobin Sodium 155 H Potassium 6.9 H* D 5.7 H Chloride 121.9 H Carbon Dioxide 20 L BUN 139 H Creatinine 2.7 H Glucose 139 H POC Glucose 153 H Lactic Acid Calcium Phosphorus Magnesium Ferritin AST Ammonia Lactate Dehydrogenase C-Reactive Protein Total Protein Albumin Arterial Blood Glucose Arterial Blood Ionized Calcium Urine WBC (Auto) Vancomycin Trough 05/25/21 05/25/21 05/26/21 11:33 11:33 03:15 WBC 13.8 H RBC 5.06 H Hgb Hct MCV MCH MCHC RDW Plt Count Seg Neuts % (Manual) Lymphocytes % (Manual) Monocytes % (Manual) Nucleated RBC % Seg Neutrophils # Man Lymphocytes # (Manual) D-Dimer ABG pH POC ABG pCO2 POC ABG pO2 ABG pO2 ABG HCO3 ABG Base Excess ABG Hemoglobin ABG Oxyhemoglobin ABG Sodium ABG Potassium ABG Chloride ABG Glucose VBG pH Carboxyhemoglobin Sodium 164 H* D 166 H* Potassium 5.4 H 5.5 H Chloride 131.3 H 129.2 H Carbon Dioxide BUN 109 H 102 H Creatinine 1.9 H 1.8 H Glucose 117 H 113 H POC Glucose Lactic Acid Calcium Phosphorus Magnesium Ferritin AST Ammonia Lactate Dehydrogenase 711 H C-Reactive Protein 7.90 H Total Protein Albumin Arterial Blood Glucose Arterial Blood Ionized Calcium Urine WBC (Auto) Vancomycin Trough 05/26/21 05/26/21 05/26/21 03:15 03:15 03:15 WBC 13.1 H RBC 5.43 H Hgb 15.3 H Hct 48.5 H MCV MCH MCHC RDW 15.4 H Plt Count Seg Neuts % (Manual) Lymphocytes % (Manual) Monocytes % (Manual) Nucleated RBC % Seg Neutrophils # Man Lymphocytes # (Manual) D-Dimer 6229.14 H ABG pH POC ABG pCO2 POC ABG pO2 ABG pO2 ABG HCO3 ABG Base Excess ABG Hemoglobin ABG Oxyhemoglobin ABG Sodium ABG Potassium ABG Chloride ABG Glucose VBG pH Carboxyhemoglobin Sodium Potassium Chloride Carbon Dioxide BUN Creatinine Glucose POC Glucose Lactic Acid Calcium Phosphorus Magnesium Ferritin 2991.0 H AST Ammonia Lactate Dehydrogenase C-Reactive Protein Total Protein Albumin Arterial Blood Glucose Arterial Blood Ionized Calcium Urine WBC (Auto) Vancomycin Trough 05/27/21 05/27/21 05/27/21 08:09 08:09 08:09 WBC 12.4 H RBC 5.27 H Hgb Hct 46.6 H MCV MCH MCHC 31 L RDW 15.7 H Plt Count Seg Neuts % (Manual) Lymphocytes % (Manual) Monocytes % (Manual) Nucleated RBC % Seg Neutrophils # Man Lymphocytes # (Manual) D-Dimer 3584.01 H ABG pH POC ABG pCO2 POC ABG pO2 ABG pO2 ABG HCO3 ABG Base Excess ABG Hemoglobin ABG Oxyhemoglobin ABG Sodium ABG Potassium ABG Chloride ABG Glucose VBG pH Carboxyhemoglobin Sodium 174 H* Potassium Chloride 136.9 H Carbon Dioxide BUN 90 H Creatinine 1.8 H Glucose POC Glucose Lactic Acid Calcium Phosphorus Magnesium Ferritin AST Ammonia Lactate Dehydrogenase 642 H C-Reactive Protein 5.20 H Total Protein Albumin Arterial Blood Glucose Arterial Blood Ionized Calcium Urine WBC (Auto) Vancomycin Trough 05/27/21 05/28/21 05/28/21 08:09 07:31 07:31 WBC RBC Hgb Hct MCV MCH 27 L MCHC 31 L RDW Plt Count Seg Neuts % (Manual) 88.0 H Lymphocytes % (Manual) 11.0 L Monocytes % (Manual) Nucleated RBC % Seg Neutrophils # Man 8.3 H Lymphocytes # (Manual) 1.0 L D-Dimer ABG pH POC ABG pCO2 POC ABG pO2 ABG pO2 ABG HCO3 ABG Base Excess ABG Hemoglobin ABG Oxyhemoglobin ABG Sodium ABG Potassium ABG Chloride ABG Glucose VBG pH Carboxyhemoglobin Sodium 162 H* D Potassium Chloride 125.8 H Carbon Dioxide BUN 72 H Creatinine 1.6 H Glucose 131 H POC Glucose Lactic Acid Calcium Phosphorus Magnesium 3.00 H Ferritin 2742.0 H AST Ammonia Lactate Dehydrogenase C-Reactive Protein Total Protein Albumin Arterial Blood Glucose Arterial Blood Ionized Calcium Urine WBC (Auto) Vancomycin Trough 05/29/21 05/29/21 05/29/21 06:40 06:40 17:58 WBC 14.1 H RBC Hgb Hct MCV MCH 27 L MCHC 31 L RDW Plt Count Seg Neuts % (Manual) 85.0 H Lymphocytes % (Manual) 9.0 L Monocytes % (Manual) Nucleated RBC % 1.0 H Seg Neutrophils # Man 12.0 H Lymphocytes # (Manual) D-Dimer ABG pH 7.505 H POC ABG pCO2 30.3 L POC ABG pO2 128.1 H ABG pO2 ABG HCO3 ABG Base Excess ABG Hemoglobin 11.9 L ABG Oxyhemoglobin ABG Sodium ABG Potassium ABG Chloride 113.0 H ABG Glucose 110 H VBG pH Carboxyhemoglobin Sodium 148 H D Potassium Chloride 111.3 H Carbon Dioxide 20 L BUN 45 H Creatinine Glucose POC Glucose Lactic Acid Calcium Phosphorus 2.10 L D Magnesium Ferritin AST Ammonia Lactate Dehydrogenase C-Reactive Protein Total Protein Albumin Arterial Blood Glucose 110 H Arterial Blood Ionized Calcium 4.5 L Urine WBC (Auto) Vancomycin Trough 05/30/21 05/30/2105/30/21 01:00 06:06 13:48 WBC RBC Hgb Hct MCV MCH MCHC RDW Plt Count Seg Neuts % (Manual) Lymphocytes % (Manual) Monocytes % (Manual) Nucleated RBC % Seg Neutrophils # Man Lymphocytes # (Manual) D-Dimer ABG pH POC ABG pCO2 POC ABG pO2 ABG pO2 90.9 H ABG HCO3 ABG Base Excess ABG Hemoglobin 11.8 L ABG Oxyhemoglobin ABG Sodium ABG Potassium ABG Chloride ABG Glucose VBG pH Carboxyhemoglobin Sodium 150 H Potassium Chloride 117.6 H Carbon Dioxide BUN 40 H Creatinine Glucose POC Glucose Lactic Acid Calcium 8.3 L Phosphorus Magnesium Ferritin AST Ammonia Lactate Dehydrogenase C-Reactive Protein Total Protein Albumin Arterial Blood Glucose Arterial Blood Ionized Calcium Urine WBC (Auto) 12.0 H Vancomycin Trough 05/30/21 05/31/21 05/31/21 22:32 02:22 02:22 WBC RBC Hgb 11.2 L Hct 34.8 L MCV MCH MCHC RDW Plt Count 127 L Seg Neuts % (Manual) 97.0 H Lymphocytes % (Manual) Monocytes % (Manual) Nucleated RBC % Seg Neutrophils # Man 10.5 H Lymphocytes # (Manual) 0.0 L D-Dimer ABG pH 7.454 H POC ABG pCO2 POC ABG pO2 ABG pO2 141.8 H ABG HCO3 19.9 L ABG Base Excess -2.7 L ABG Hemoglobin ABG Oxyhemoglobin ABG Sodium ABG Potassium ABG Chloride ABG Glucose VBG pH Carboxyhemoglobin Sodium 152 H Potassium Chloride 118.9 H Carbon Dioxide 19 L BUN 48 H Creatinine 1.5 H Glucose 101 H POC Glucose Lactic Acid Calcium 8.3 L Phosphorus Magnesium Ferritin AST Ammonia Lactate Dehydrogenase C-Reactive Protein Total Protein Albumin Arterial Blood Glucose Arterial Blood Ionized Calcium Urine WBC (Auto) Vancomycin Trough 05/31/21 05/31/21 06/01/21 11:42 21:28 07:10 WBC RBC Hgb Hct MCV MCH MCHC RDW Plt Count Seg Neuts % (Manual) Lymphocytes % (Manual) Monocytes % (Manual) Nucleated RBC % Seg Neutrophils # Man Lymphocytes # (Manual) D-Dimer ABG pH POC ABG pCO2 POC ABG pO2 ABG pO2 ABG HCO3 ABG Base Excess ABG Hemoglobin ABG Oxyhemoglobin ABG Sodium ABG Potassium ABG Chloride ABG Glucose VBG pH Carboxyhemoglobin Sodium 150 H Potassium Chloride 115.7 H Carbon Dioxide BUN 47 H Creatinine Glucose 115 H POC Glucose 161 H Lactic Acid Calcium Phosphorus Magnesium 2.50 H Ferritin AST Ammonia Lactate Dehydrogenase C-Reactive Protein Total Protein Albumin Arterial Blood Glucose Arterial Blood Ionized Calcium Urine WBC (Auto) Vancomycin Trough 20.2 H 06/01/21 06/01/21 06/01/21 07:10 07:54 10:39 WBC RBC Hgb 10.7 L Hct 33.5 L MCV MCH MCHC RDW Plt Count Seg Neuts % (Manual) 92.0 H Lymphocytes % (Manual) 4.0 L Monocytes % (Manual) Nucleated RBC % Seg Neutrophils # Man Lymphocytes # (Manual) 0.3 L D-Dimer ABG pH POC ABG pCO2 POC ABG pO2 ABG pO2 ABG HCO3 ABG Base Excess ABG Hemoglobin ABG Oxyhemoglobin ABG Sodium ABG Potassium ABG Chloride ABG Glucose VBG pH Carboxyhemoglobin Sodium 152 H Potassium Chloride 117.6 H Carbon Dioxide BUN 50 H Creatinine Glucose 140 H POC Glucose 127 H Lactic Acid Calcium 8.3 L Phosphorus Magnesium Ferritin AST Ammonia Lactate Dehydrogenase C-Reactive Protein Total Protein Albumin Arterial Blood Glucose Arterial Blood Ionized Calcium Urine WBC (Auto) Vancomycin Trough 06/01/21 06/01/21 06/01/21 11:11 16:16 21:45 WBC RBC Hgb Hct MCV MCH MCHC RDW Plt Count Seg Neuts % (Manual) Lymphocytes % (Manual) Monocytes % (Manual) Nucleated RBC % Seg Neutrophils # Man Lymphocytes # (Manual) D-Dimer ABG pH POC ABG pCO2 POC ABG pO2 ABG pO2 ABG HCO3 ABG Base Excess ABG Hemoglobin ABG Oxyhemoglobin ABG Sodium ABG Potassium ABG Chloride ABG Glucose VBG pH Carboxyhemoglobin Sodium Potassium Chloride Carbon Dioxide BUN Creatinine Glucose POC Glucose 120 H 129 H 150 H Lactic Acid Calcium Phosphorus Magnesium Ferritin AST Ammonia Lactate Dehydrogenase C-Reactive Protein Total Protein Albumin Arterial Blood Glucose Arterial Blood Ionized Calcium Urine WBC (Auto) Vancomycin Trough 06/02/21 06/02/21 06/02/21 06:53 06:53 07:52 WBC RBC Hgb 10.4 L Hct 32.4 L MCV MCH 27 L MCHC RDW Plt Count Seg Neuts % (Manual) 93.0 H Lymphocytes % (Manual) 3.0 L Monocytes % (Manual) Nucleated RBC % Seg Neutrophils # Man Lymphocytes # (Manual) 0.2 L D-Dimer ABG pH POC ABG pCO2 POC ABG pO2 ABG pO2 ABG HCO3 ABG Base Excess ABG Hemoglobin ABG Oxyhemoglobin ABG Sodium ABG Potassium ABG Chloride ABG Glucose VBG pH Carboxyhemoglobin Sodium 149 H Potassium Chloride 112.6 H Carbon Dioxide BUN 54 H Creatinine Glucose 123 H POC Glucose 116 H Lactic Acid Calcium 8.2 L Phosphorus Magnesium Ferritin AST Ammonia Lactate Dehydrogenase C-Reactive Protein Total Protein Albumin Arterial Blood Glucose Arterial Blood Ionized Calcium Urine WBC (Auto) Vancomycin Trough 06/03/21 06/03/21 06/03/21 05:57 05:57 21:23 WBC RBC Hgb 10.7 L Hct 33.0 L MCV 83 L MCH 27 L MCHC RDW Plt Count Seg Neuts % (Manual) 88.0 H Lymphocytes % (Manual) 8.0 L Monocytes % (Manual) Nucleated RBC % 2.0 H Seg Neutrophils # Stefan Lymphocytes # (Manual) 0.6 L D-Dimer ABG pH POC ABG pCO2 POC ABG pO2 39.0 L ABG pO2 ABG HCO3 ABG Base Excess ABG Hemoglobin ABG Oxyhemoglobin 69.1 L ABG Sodium 134.1 L ABG Potassium ABG Chloride ABG Glucose 135 H VBG pH Carboxyhemoglobin Sodium Potassium Chloride Carbon Dioxide BUN 36 H Creatinine Glucose 102 H POC Glucose Lactic Acid Calcium 8.0 L Phosphorus 2.20 L D Magnesium Ferritin AST Ammonia Lactate Dehydrogenase C-Reactive Protein Total Protein Albumin Arterial Blood Glucose 135 H Arterial Blood Ionized Calcium Urine WBC (Auto) Vancomycin Trough 06/04/21 06/04/21 06/04/21 07:04 07:04 17:42 WBC RBC Hgb 11.3 L Hct 34.9 L MCV MCH 27 L MCHC RDW Plt Count Seg Neuts % (Manual) Lymphocytes % (Manual) 5.0 L Monocytes % (Manual) Nucleated RBC % Seg Neutrophils # Stefan 8.4 H Lymphocytes # (Manual) 0.5 L D-Dimer ABG pH POC ABG pCO2 POC ABG pO2 ABG pO2 ABG HCO3 ABG Base Excess ABG Hemoglobin ABG Oxyhemoglobin ABG Sodium ABG Potassium ABG Chloride ABG Glucose VBG pH Carboxyhemoglobin Sodium Potassium Chloride Carbon Dioxide BUN 27 H Creatinine Glucose POC Glucose 136 H Lactic Acid Calcium 8.2 L Phosphorus Magnesium Ferritin AST Ammonia Lactate Dehydrogenase C-Reactive Protein Total Protein Albumin Arterial Blood Glucose Arterial Blood Ionized Calcium Urine WBC (Auto) Vancomycin Trough 06/05/21 06/05/21 06/05/21 05:10 12:32 15:45 WBC RBC Hgb Hct MCV MCH MCHC RDW Plt Count Seg Neuts % (Manual) Lymphocytes % (Manual) Monocytes % (Manual) Nucleated RBC % Seg Neutrophils # Man Lymphocytes # (Manual) D-Dimer ABG pH POC ABG pCO2 POC ABG pO2 ABG pO2 ABG HCO3 ABG Base Excess ABG Hemoglobin ABG Oxyhemoglobin ABG Sodium ABG Potassium ABG Chloride ABG Glucose VBG pH Carboxyhemoglobin Sodium Potassium 3.5 L Chloride Carbon Dioxide BUN 35 H Creatinine Glucose 130 H POC Glucose 122 H 119 H Lactic Acid Calcium 8.2 L Phosphorus Magnesium Ferritin AST Ammonia Lactate Dehydrogenase C-Reactive Protein Total Protein Albumin Arterial Blood Glucose Arterial Blood Ionized Calcium Urine WBC (Auto) Vancomycin Trough 06/05/21 06/05/21 06/06/21 20:06 21:27 00:04 WBC RBC Hgb Hct MCV MCH MCHC RDW Plt Count Seg Neuts % (Manual) Lymphocytes % (Manual) Monocytes % (Manual) Nucleated RBC % Seg Neutrophils # Man Lymphocytes # (Manual) D-Dimer ABG pH 7.456 H POC ABG pCO2 POC ABG pO2 ABG pO2 ABG HCO3 ABG Base Excess ABG Hemoglobin 10.3 L ABG Oxyhemoglobin ABG Sodium ABG Potassium 3.1 L ABG Chloride ABG Glucose 125 H VBG pH Carboxyhemoglobin 0.3 L Sodium Potassium Chloride Carbon Dioxide BUN Creatinine Glucose POC Glucose 113 H Lactic Acid Calcium Phosphorus Magnesium Ferritin AST Ammonia Lactate Dehydrogenase C-Reactive Protein 19.60 H Total Protein Albumin Arterial Blood Glucose 125 H Arterial Blood Ionized Calcium Urine WBC (Auto) Vancomycin Trough 06/06/21 06/06/21 06/07/21 04:35 22:37 05:54 WBC RBC Hgb Hct MCV MCH MCHC RDW Plt Count Seg Neuts % (Manual) Lymphocytes % (Manual) Monocytes % (Manual) Nucleated RBC % Seg Neutrophils # Man Lymphocytes # (Manual) D-Dimer ABG pH POC ABG pCO2 POC ABG pO2 ABG pO2 ABG HCO3 ABG Base Excess ABG Hemoglobin ABG Oxyhemoglobin ABG Sodium ABG Potassium ABG Chloride ABG Glucose VBG pH Carboxyhemoglobin Sodium Potassium Chloride Carbon Dioxide BUN 43 H Creatinine Glucose POC Glucose 114 H 130 H Lactic Acid Calcium 7.6 L Phosphorus Magnesium Ferritin AST Ammonia Lactate Dehydrogenase C-Reactive Protein Total Protein Albumin Arterial Blood Glucose Arterial Blood Ionized Calcium Urine WBC (Auto) Vancomycin Trough 06/07/21 06/07/21 06/07/21 07:32 10:03 11:36 WBC RBC 3.63 L Hgb 9.8 L Hct 30.3 L MCV 83 L MCH 27 L MCHC RDW Plt Count Seg Neuts % (Manual) Lymphocytes % (Manual) Monocytes % (Manual) Nucleated RBC % Seg Neutrophils # Man Lymphocytes # (Manual) D-Dimer ABG pH POC ABG pCO2 POC ABG pO2 ABG pO2 ABG HCO3 ABG Base Excess ABG Hemoglobin ABG Oxyhemoglobin ABG Sodium ABG Potassium ABG Chloride ABG Glucose VBG pH Carboxyhemoglobin Sodium Potassium 3.2 L Chloride 108.5 H Carbon Dioxide BUN 36 H Creatinine Glucose 139 H POC Glucose 125 H Lactic Acid Calcium 8.0 L Phosphorus Magnesium Ferritin AST Ammonia Lactate Dehydrogenase C-Reactive Protein Total Protein Albumin Arterial Blood Glucose Arterial Blood Ionized Calcium Urine WBC (Auto) Vancomycin Trough 06/07/21 06/07/21 06/08/21 17:54 22:14 07:18 WBC RBC Hgb Hct MCV MCH MCHC RDW Plt Count Seg Neuts % (Manual) Lymphocytes % (Manual) Monocytes % (Manual) Nucleated RBC % Seg Neutrophils # Man Lymphocytes # (Manual) D-Dimer ABG pH POC ABG pCO2 POC ABG pO2 ABG pO2 ABG HCO3 ABG Base Excess ABG Hemoglobin ABG Oxyhemoglobin ABG Sodium ABG Potassium ABG Chloride ABG Glucose VBG pH Carboxyhemoglobin Sodium 149 H Potassium Chloride 110.2 H Carbon Dioxide BUN 31 H Creatinine Glucose 131 H POC Glucose 121 H 131 H Lactic Acid Calcium 8.1 L Phosphorus Magnesium Ferritin AST Ammonia Lactate Dehydrogenase C-Reactive Protein Total Protein Albumin Arterial Blood Glucose Arterial Blood Ionized Calcium Urine WBC (Auto) Vancomycin Trough 06/08/21 06/08/21 06/08/21 07:45 12:07 18:02 WBC RBC Hgb Hct MCV MCH MCHC RDW Plt Count Seg Neuts % (Manual) Lymphocytes % (Manual) Monocytes % (Manual) Nucleated RBC % Seg Neutrophils # Man Lymphocytes # (Manual) D-Dimer ABG pH POC ABG pCO2 POC ABG pO2 ABG pO2 ABG HCO3 ABG Base Excess ABG Hemoglobin ABG Oxyhemoglobin ABG Sodium ABG Potassium ABG Chloride ABG Glucose VBG pH Carboxyhemoglobin Sodium Potassium Chloride Carbon Dioxide BUN Creatinine Glucose POC Glucose 120 H 127 H 148 H Lactic Acid Calcium Phosphorus Magnesium Ferritin AST Ammonia Lactate Dehydrogenase C-Reactive Protein Total Protein Albumin Arterial Blood Glucose Arterial Blood Ionized Calcium Urine WBC (Auto) Vancomycin Trough 06/09/21 06/09/21 06/09/21 05:51 05:51 11:37 WBC 3.9 L RBC 3.38 L Hgb 9.4 L Hct 28.5 L MCV MCH MCHC RDW Plt Count Seg Neuts % (Manual) Lymphocytes % (Manual) Monocytes % (Manual) Nucleated RBC % Seg Neutrophils # Man Lymphocytes # (Manual) D-Dimer ABG pH POC ABG pCO2 POC ABG pO2 ABG pO2 ABG HCO3 ABG Base Excess ABG Hemoglobin ABG Oxyhemoglobin ABG Sodium ABG Potassium ABG Chloride ABG Glucose VBG pH Carboxyhemoglobin Sodium Potassium Chloride 108.4 H Carbon Dioxide BUN 32 H Creatinine Glucose 137 H POC Glucose 115 H Lactic Acid Calcium 7.5 L Phosphorus Magnesium Ferritin AST 55 H Ammonia Lactate Dehydrogenase C-Reactive Protein 4.10 H Total Protein 5.6 L Albumin 2.0 L Arterial Blood Glucose Arterial Blood Ionized Calcium Urine WBC (Auto) Vancomycin Trough 06/09/21 06/09/21 06/10/21 17:32 22:18 01:52 WBC RBC 3.62 L Hgb 9.9 L Hct 29.8 L MCV 82 L MCH 27 L MCHC RDW Plt Count Seg Neuts % (Manual) Lymphocytes % (Manual) Monocytes % (Manual) Nucleated RBC % Seg Neutrophils # Man Lymphocytes # (Manual) D-Dimer ABG pH POC ABG pCO2 POC ABG pO2 ABG pO2 ABG HCO3 ABG Base Excess ABG Hemoglobin ABG Oxyhemoglobin ABG Sodium ABG Potassium ABG Chloride ABG Glucose VBG pH Carboxyhemoglobin Sodium Potassium Chloride Carbon Dioxide BUN Creatinine Glucose POC Glucose 113 H 110 H Lactic Acid Calcium Phosphorus Magnesium Ferritin AST Ammonia Lactate Dehydrogenase C-Reactive Protein Total Protein Albumin Arterial Blood Glucose Arterial Blood Ionized Calcium Urine WBC (Auto) Vancomycin Trough 06/10/21 06/10/21 06/10/21 01:52 16:14 22:45 WBC RBC Hgb Hct MCV MCH MCHC RDW Plt Count Seg Neuts % (Manual) Lymphocytes % (Manual) Monocytes % (Manual) Nucleated RBC % Seg Neutrophils # Man Lymphocytes # (Manual) D-Dimer ABG pH POC ABG pCO2 POC ABG pO2 ABG pO2 ABG HCO3 ABG Base Excess ABG Hemoglobin ABG Oxyhemoglobin ABG Sodium ABG Potassium ABG Chloride ABG Glucose VBG pH Carboxyhemoglobin Sodium Potassium Chloride 108.2 H Carbon Dioxide BUN 32 H Creatinine 1.4 H Glucose POC Glucose 111 H 107 H Lactic Acid Calcium 7.8 L Phosphorus Magnesium Ferritin AST 55 H Ammonia Lactate Dehydrogenase C-Reactive Protein Total Protein 5.6 L Albumin 1.9 L Arterial Blood Glucose Arterial Blood Ionized Calcium Urine WBC (Auto) Vancomycin Trough 06/11/21 06/11/21 06/11/21 05:51 05:51 05:51 WBC RBC 3.35 L Hgb 9.1 L Hct 28.1 L MCV MCH 27 L MCHC RDW Plt Count 117 L Seg Neuts % (Manual) 93.0 H Lymphocytes % (Manual) 1.0 L Monocytes % (Manual) Nucleated RBC % Seg Neutrophils # Man Lymphocytes # (Manual) 0.0 L D-Dimer ABG pH POC ABG pCO2 POC ABG pO2 ABG pO2 ABG HCO3 ABG Base Excess ABG Hemoglobin ABG Oxyhemoglobin ABG Sodium ABG Potassium ABG Chloride ABG Glucose VBG pH Carboxyhemoglobin Sodium 146 H Potassium Chloride 110.9 H Carbon Dioxide BUN 40 H Creatinine Glucose 119 H POC Glucose Lactic Acid Calcium 7.8 L Phosphorus Magnesium Ferritin AST Ammonia Lactate Dehydrogenase C-Reactive Protein Total Protein Albumin Arterial Blood Glucose Arterial Blood Ionized Calcium Urine WBC (Auto) Vancomycin Trough 22.6 H 06/11/21 06/11/21 06/11/21 08:28 11:36 15:47 WBC RBC Hgb Hct MCV MCH MCHC RDW Plt Count Seg Neuts % (Manual) Lymphocytes % (Manual) Monocytes % (Manual) Nucleated RBC % Seg Neutrophils # Man Lymphocytes # (Manual) D-Dimer ABG pH POC ABG pCO2 POC ABG pO2 ABG pO2 ABG HCO3 ABG Base Excess ABG Hemoglobin ABG Oxyhemoglobin ABG Sodium ABG Potassium ABG Chloride ABG Glucose VBG pH Carboxyhemoglobin Sodium Potassium Chloride Carbon Dioxide BUN Creatinine Glucose POC Glucose 109 H 149 H 139 H Lactic Acid Calcium Phosphorus Magnesium Ferritin AST Ammonia Lactate Dehydrogenase C-Reactive Protein Total Protein Albumin Arterial Blood Glucose Arterial Blood Ionized Calcium Urine WBC (Auto) Vancomycin Trough 06/11/21 06/12/21 06/12/21 21:42 04:00 04:00 WBC 4.0 L RBC 3.50 L Hgb 9.4 L Hct 29.9 L MCV MCH 27 L MCHC 31 L RDW 15.3 H Plt Count 126 L Seg Neuts % (Manual) 88.0 H Lymphocytes % (Manual) Monocytes % (Manual) 12.0 H Nucleated RBC % Seg Neutrophils # Man Lymphocytes # (Manual) 0.0 L D-Dimer ABG pH POC ABG pCO2 POC ABG pO2 ABG pO2 ABG HCO3 ABG Base Excess ABG Hemoglobin ABG Oxyhemoglobin ABG Sodium ABG Potassium ABG Chloride ABG Glucose VBG pH Carboxyhemoglobin Sodium 149 H Potassium Chloride 114.1 H Carbon Dioxide BUN 37 H Creatinine Glucose 137 H POC Glucose 124 H Lactic Acid Calcium 8.0 L Phosphorus Magnesium Ferritin AST Ammonia Lactate Dehydrogenase C-Reactive Protein Total Protein Albumin Arterial Blood Glucose Arterial Blood Ionized Calcium Urine WBC (Auto) Vancomycin Trough 06/12/21 06/13/21 06/13/21 06:37 00:14 06:05 WBC 4.3 L RBC 3.39 L Hgb 9.2 L Hct 28.6 L MCV MCH 27 L MCHC RDW 15.3 H Plt Count 107 L Seg Neuts % (Manual) 77.0 H Lymphocytes % (Manual) 1.0 L Monocytes % (Manual) Nucleated RBC % 1.0 H Seg Neutrophils # Man Lymphocytes # (Manual) 0.0 L D-Dimer ABG pH POC ABG pCO2 POC ABG pO2 ABG pO2 ABG HCO3 ABG Base Excess ABG Hemoglobin ABG Oxyhemoglobin ABG Sodium ABG Potassium ABG Chloride ABG Glucose VBG pH Carboxyhemoglobin Sodium Potassium Chloride Carbon Dioxide BUN Creatinine Glucose POC Glucose 128 H 149 H Lactic Acid Calcium Phosphorus Magnesium Ferritin AST Ammonia Lactate Dehydrogenase C-Reactive Protein Total Protein Albumin Arterial Blood Glucose Arterial Blood Ionized Calcium Urine WBC (Auto) Vancomycin Trough 06/13/21 06/13/21 06/14/21 06:05 11:51 04:29 WBC 4.2 L RBC 3.21 L Hgb 8.7 L Hct 26.7 L MCV 83 L MCH 27 L MCHC RDW 15.3 H Plt Count 87 L Seg Neuts % (Manual) 96 H Lymphocytes % (Manual) 2 L Monocytes % (Manual) Nucleated RBC % Seg Neutrophils # Man Lymphocytes # (Manual) 0.0 L D-Dimer ABG pH POC ABG pCO2 POC ABG pO2 48.3 L ABG pO2 ABG HCO3 ABG Base Excess ABG Hemoglobin 10.7 L ABG Oxyhemoglobin 84.1 L ABG Sodium 145.5 H ABG Potassium ABG Chloride 116.0 H ABG Glucose VBG pH Carboxyhemoglobin Sodium 146 H Potassium 3.5 L Chloride 112.3 H Carbon Dioxide BUN 38 H Creatinine Glucose 112 H POC Glucose Lactic Acid Calcium 8.1 L Phosphorus Magnesium Ferritin AST Ammonia Lactate Dehydrogenase C-Reactive Protein Total Protein Albumin Arterial Blood Glucose Arterial Blood Ionized Calcium Urine WBC (Auto) Vancomycin Trough 06/14/21 06/14/21 06/14/21 04:29 06:17 23:51 WBC RBC Hgb Hct MCV MCH MCHC RDW Plt Count Seg Neuts % (Manual) Lymphocytes % (Manual) Monocytes % (Manual) Nucleated RBC % Seg Neutrophils # Stefan Lymphocytes # (Manual) D-Dimer ABG pH POC ABG pCO2 POC ABG pO2 ABG pO2 ABG HCO3 ABG Base Excess ABG Hemoglobin ABG Oxyhemoglobin ABG Sodium ABG Potassium ABG Chloride ABG Glucose VBG pH Carboxyhemoglobin Sodium 148 H Potassium Chloride 115.3 H Carbon Dioxide BUN 40 H Creatinine Glucose 124 H POC Glucose 106 H 135 H Lactic Acid Calcium 8.2 L Phosphorus Magnesium Ferritin AST Ammonia Lactate Dehydrogenase C-Reactive Protein Total Protein Albumin Arterial Blood Glucose Arterial Blood Ionized Calcium Urine WBC (Auto) Vancomycin Trough 06/15/21 06/15/21 06/15/21 05:23 05:53 05:53 WBC 3.8 L RBC 2.94 L Hgb 8.0 L Hct 24.0 L MCV 81 L MCH 27 L MCHC RDW 15.6 H Plt Count 87 L Seg Neuts % (Manual) 95.0 H Lymphocytes % (Manual) 1.0 L Monocytes % (Manual) Nucleated RBC % 1.0 H Seg Neutrophils # Man Lymphocytes # (Manual) 0.0 L D-Dimer ABG pH POC ABG pCO2 POC ABG pO2 ABG pO2 ABG HCO3 ABG Base Excess ABG Hemoglobin ABG Oxyhemoglobin ABG Sodium ABG Potassium ABG Chloride ABG Glucose VBG pH Carboxyhemoglobin Sodium Potassium Chloride 110.5 H Carbon Dioxide BUN 43 H Creatinine Glucose 143 H POC Glucose 134 H Lactic Acid Calcium 8.1 L Phosphorus 2.10 L D Magnesium Ferritin AST Ammonia Lactate Dehydrogenase C-Reactive Protein Total Protein Albumin Arterial Blood Glucose Arterial Blood Ionized Calcium Urine WBC (Auto) Vancomycin Trough 06/16/21 06/16/21 06/16/21 05:22 05:59 05:59 WBC 3.4 L RBC 3.34 L Hgb 9.0 L Hct 27.9 L MCV MCH 27 L MCHC RDW 15.5 H Plt Count 72 L Seg Neuts % (Manual) 97.0 H Lymphocytes % (Manual) Monocytes % (Manual) Nucleated RBC % Seg Neutrophils # Man Lymphocytes # (Manual) 0.0 L D-Dimer ABG pH POC ABG pCO2 POC ABG pO2 ABG pO2 ABG HCO3 ABG Base Excess ABG Hemoglobin ABG Oxyhemoglobin ABG Sodium ABG Potassium ABG Chloride ABG Glucose VBG pH Carboxyhemoglobin Sodium Potassium Chloride 108.8 H Carbon Dioxide BUN 53 H Creatinine 1.4 H Glucose 160 H POC Glucose 141 H Lactic Acid Calcium 8.1 L Phosphorus Magnesium Ferritin AST Ammonia Lactate Dehydrogenase C-Reactive Protein Total Protein Albumin Arterial Blood Glucose Arterial Blood Ionized Calcium Urine WBC (Auto) Vancomycin Trough 06/16/21 06/16/21 11:31 17:08 WBC RBC Hgb Hct MCV MCH MCHC RDW Plt Count Seg Neuts % (Manual) Lymphocytes % (Manual) Monocytes % (Manual) Nucleated RBC % Seg Neutrophils # Man Lymphocytes # (Manual) D-Dimer ABG pH POC ABG pCO2 POC ABG pO2 ABG pO2 ABG HCO3 ABG Base Excess ABG Hemoglobin ABG Oxyhemoglobin ABG Sodium ABG Potassium ABG Chloride ABG Glucose VBG pH Carboxyhemoglobin Sodium Potassium Chloride Carbon Dioxide BUN Creatinine Glucose POC Glucose 129 H 136 H Lactic Acid Calcium Phosphorus Magnesium Ferritin AST Ammonia Lactate Dehydrogenase C-Reactive Protein Total Protein Albumin Arterial Blood Glucose Arterial Blood Ionized Calcium Urine WBC (Auto) Vancomycin Trough Allied health notes reviewed: nursing
[2021-06-16] MEDS ORDERED: TOTAL PARENTERAL NUTRITION 1,800 ML IV SCH (20:00)
[2021-06-16] MEDS: VANCOMYCIN/NS 1 GM/250 ML 1 GM/250 ML BAG IV SCH (23:42)
[2021-06-17] MEDS: metroNIDAZOLE/NS 500 MG/100 ML 500 MG/100 ML BAG IV SCH ×2 (06:15→13:26)
[2021-06-17] MEDS: CEFEPIME/NS 2 GM/100 ML 2 GM/100 ML BAG IV SCH ×2 (06:16→13:29)
[2021-06-17] MEDS: HEPARIN 5,000 UNIT/1 ML VIAL SUB-Q SCH ×2 (06:17→13:28)
[2021-06-17 07:13] LABS: Hematocrit 25.7 % (35.5-45.6); Hemoglobin 8.5 gm/dl (11.8-15.2); Mean Corpuscular HGB Conc 33 % (32-34); Mean Corpuscular Volume 82 fl (84-94); Red Blood Count 3.14 M/mm3 (3.65-5.03); Red Cell Distribution Width 15.7 % (13.2-15.2)
[2021-06-17 07:23] LABS: Platelet Count 64 K/mm3 (140-440)
[2021-06-17 07:32] LABS: BUN/Creatinine Ratio 48; Blood Urea Nitrogen 62 mg/dL (9-20); Calcium 7.8 mg/dL (8.4-10.2); Hemolysis Index 2
[2021-06-17] MEDS: IPRATROPIUM/ALBUTEROL SULFATE 3 ML AMPUL.NEB IH SCH ×2 (08:46→14:08)
--- NOTE | 2021-06-17 09:10 | Progress Note ---
Assessment and Plan Assessment and plan: #Acute hypoxic respiratory failure -patiently currently on BiPAP requiring 100% FiO2 -continue Solu-Medrol until tapered off -Pulmonary consulted, recs appreciated -patient will likely need bronchoscopy given abscess and continued high FiO2 requirement -discussed with patient possibility of imminent intubation. Patient agreeable and family (brother Madhu) updated at patient's request #COVID-19 pneumonia #Left lower lobe abscess -Seen on CT abdomen pelvis and chest: Approximately 5 x 6 cm -Continue vancomycin, cefepime and Flagyl -Will require antibiotic treatment for 3 weeks total #Severe sepsis -Febrile, continue Tylenol -Repeat blood cultures ordered -Likely source PNA/abscess #Discharge planning -Pending respiratory status Resolved problems: #Hypernatremia #Acute encephalopathy #ANGELES #Hyperkalemia #Ileus #Lactic acidosis Disposition Plan: Continue medical management Total Time Spent with Patient (Minutes): 40 minutes History Interval history: Patient with tachycardia, tachypnea. Currently on BiPAP. Patient alert and oriented. No complaints at this time. Hospitalist Physical - Physical exam Narrative exam: GENERAL: Thin male. Lying in bed in no acute distress. HEENT: BiPAP at 100% FiO2. CHEST/LUNGS: Coarse breath sounds bilaterally. No use of assessory muscles of breathing. HEART/CARDIOVASCULAR: Tachycardic. No murmur, rubs or gallops appreciated. ABDOMEN: +BS. NT/ND. EXTREMITIES: No cyanosis, clubbing or edema. PSYCH: Cooperative. - Constitutional Vitals: Temp Pulse Resp BP Pulse Ox 99.1 F 79 24 147/79 99 06/17/21 07:34 06/17/21 07:00 06/17/21 07:00 06/17/21 07:00 06/17/21 07:00 General appearance: Present: no acute distress, cachectic HEART Score - HEART Score EKG: Non-specific Age: 45-65 Risk factors: 1-2 risk factors Troponin: Troponin T < 0.010 ng/mL (0.00-0.029) 05/23/21 18:48 - Critical Actions Critical Actions: 0-3 pts:0.9-1.7%risk of adverse cardiac event.Candidate for discharge Results - Labs CBC & Chem 7: 06/17/21 06:25 06/17/21 06:25 Labs: Laboratory Last Values WBC 4.4 K/mm3 (4.5-11.0) L 06/17/21 06:25 RBC 3.14 M/mm3 (3.65-5.03) L 06/17/21 06:25 Hgb 8.5 gm/dl (11.8-15.2) L 06/17/21 06:25 Hct 25.7 % (35.5-45.6) L 06/17/21 06:25 MCV 82 fl (84-94) L 06/17/21 06:25 MCH 27 pg (28-32) L 06/17/21 06:25 MCHC 33 % (32-34) 06/17/21 06:25 RDW 15.7 % (13.2-15.2) H 06/17/21 06:25 Plt Count 64 K/mm3 (140-440) L 06/17/21 06:25 Lymph % (Auto) Newborn Photographer 06/01/21 07:10 [place] % (Auto) Newborn Photographer 06/01/21 07:10 Eos % (Auto) Newborn Photographer 06/01/21 07:10 Baso % (Auto) Newborn Photographer 06/01/21 07:10 Lymph # (Auto) Newborn Photographer 06/01/21 07:10 [place] # (Auto) Newborn Photographer 06/01/21 07:10 Eos # (Auto) Newborn Photographer 06/01/21 07:10 Baso # (Auto) Newborn Photographer 06/01/21 07:10 Add Manual Diff Complete 06/16/21 05:59 Total Counted 100 06/16/21 05:59 Seg Neutrophils % Newborn Photographer 06/17/21 06:25 Seg Neuts % (Manual) 97.0 % (40.0-70.0) H 06/16/21 05:59 Band Neutrophils % 3.0 % 06/16/21 05:59 Lymphocytes % (Manual) 1.0 % (13.4-35.0) L 06/15/21 05:53 Reactive Lymphs % (Man) 1.0 % 06/01/21 07:10 Monocytes % (Manual) 2.0 % (0.0-7.3) 06/15/21 05:53 Myelocytes % 1.0 % 06/13/21 06:05 Nucleated RBC % Not Reportable 06/16/21 05:59 Seg Neutrophils # Newborn Photographer 06/01/21 07:10 Seg Neutrophils # Man 3.3 K/mm3 (1.8-7.7) 06/16/21 05:59 Band Neutrophils # 0.1 K/mm3 06/16/21 05:59 Lymphocytes # (Manual) 0.0 K/mm3 (1.2-5.4) L 06/16/21 05:59 Abs React Lymphs (Man) 0.0 K/mm3 06/16/21 05:59 Monocytes # (Manual) 0.0 K/mm3 (0.0-0.8) 06/16/21 05:59 Eosinophils # (Manual) 0.0 K/mm3 (0.0-0.4) 06/16/21 05:59 Basophils # (Manual) 0.0 K/mm3 (0.0-0.1) 06/16/21 05:59 Metamyelocytes # 0.0 K/mm3 06/16/21 05:59 Myelocytes # 0.0 K/mm3 06/16/21 05:59 Promyelocytes # 0.0 K/mm3 06/16/21 05:59 Blast Cells # 0.0 K/mm3 06/16/21 05:59 WBC Morphology Not Reportable 06/16/21 05:59 Hypersegmented Neuts Not Reportable 06/16/21 05:59 Hyposegmented Neuts Not Reportable 06/16/21 05:59 Hypogranular Neuts Not Reportable 06/16/21 05:59 Smudge Cells Not Reportable 06/16/21 05:59 Toxic Granulation Not Reportable 06/16/21 05:59 Toxic Vacuolation Not Reportable 06/16/21 05:59 Dohle Bodies Not Reportable 06/16/21 05:59 Pelger-Huet Anomaly Not Reportable 06/16/21 05:59 Kaci Rods Not Reportable 06/16/21 05:59 Platelet Estimate Consistent w auto 06/16/21 05:59 Clumped Platelets Not Reportable 06/16/21 05:59 Plt Clumps, EDTA Not Reportable 06/16/21 05:59 Large Platelets Not Reportable 06/16/21 05:59 Giant Platelets Not Reportable 06/16/21 05:59 Platelet Satelliting Not Reportable 06/16/21 05:59 Plt Morphology Comment Not Reportable 06/16/21 05:59 RBC Morphology Not Reportable 06/16/21 05:59 Dimorphic RBCs Not Reportable 06/16/21 05:59 Polychromasia Not Reportable 06/16/21 05:59 Hypochromasia Not Reportable 06/16/21 05:59 Poikilocytosis Not Reportable 06/16/21 05:59 Anisocytosis Not Reportable 06/16/21 05:59 Microcytosis Not Reportable 06/16/21 05:59 Macrocytosis Not Reportable 06/16/21 05:59 Spherocytes Not Reportable 06/16/21 05:59 Pappenheimer Bodies Not Reportable 06/16/21 05:59 Sickle Cells Not Reportable 06/16/21 05:59 Target Cells Not Reportable 06/16/21 05:59 Tear Drop Cells Not Reportable 06/16/21 05:59 Ovalocytes Not Reportable 06/16/21 05:59 Helmet Cells Not Reportable 06/16/21 05:59 [place] Bodies Not Reportable 06/16/21 05:59 Flasher Rings Not Reportable 06/16/21 05:59 [place] Cells Not Reportable 06/16/21 05:59 Bite Cells Not Reportable 06/16/21 05:59 Crenated Cell Not Reportable 06/16/21 05:59 Elliptocytes Not Reportable 06/16/21 05:59 Acanthocytes (Spur) Not Reportable 06/16/21 05:59 Rouleaux Not Reportable 06/16/21 05:59 Hemoglobin C Crystals Not Reportable 06/16/21 05:59 Schistocytes Not Reportable 06/16/21 05:59 Malaria parasites Not Reportable 06/16/21 05:59 Dick Bodies Not Reportable 06/16/21 05:59 Hem Pathologist Commnt No 06/16/21 05:59 D-Dimer 3584.01 ng/mlDDU (0-234) H 05/27/21 08:09 ABG pH 7.408 (7.320-7.450) 06/13/21 11:51 POC ABG pCO2 42.7 mmHg (32.0-48.0) 06/13/21 11:51 ABG pCO2 29.0 mm Hg 05/30/21 22:32 POC ABG pO2 48.3 mmHg (83-108) L 06/13/21 11:51 ABG pO2 141.8 mm Hg (80.0-90.0) H 05/30/21 22:32 POC ABG HCO3 26.3 06/13/21 11:51 ABG HCO3 19.9 mmol/L (20.0-26.0) L 05/30/21 22:32 ABG O2 Saturation 84.9 (0-100) 06/13/21 11:51 ABG O2 Content 19.9 (0.0-44) 05/30/21 22:32 POC ABG Base Excess 1.5 06/13/21 11:51 ABG Base Excess -2.7 mmol/L (-2.0-3.0) L 05/30/21 22:32 ABG Hemoglobin 10.7 (12.0-17.5) L 06/13/21 11:51 ABG Oxyhemoglobin 84.1 (94-98) L 06/13/21 11:51 ABG Carboxyhemoglobin 1.1 % (0.0-5.0) 05/30/21 22:32 ABG Methemoglobin 0.3 (0.0-1.5) 06/13/21 11:51 ABG Sodium 145.5 mmol/L (136.0-145.0) H 06/13/21 11:51 ABG Potassium 3.5 mmol/L (3.40-4.50) 06/13/21 11:51 ABG Chloride 116.0 mmol/L (98-107) H 06/13/21 11:51 ABG Glucose 87 mg/dL (65-95) 06/13/21 11:51 VBG pH 7.254 (7.320-7.420) L 05/24/21 02:09 Oxyhemoglobin 97.1 % (95.0-99.0) 05/30/21 22: Carboxyhemoglobin 0.7 (0.5-1.5) 06/13/21 11:51 FiO2 70 % 05/30/21 22:32 FiO2 % 100 06/13/21 11:51 Sodium 142 mmol/L (137-145) 06/17/21 06:25 Potassium 3.8 mmol/L (3.6-5.0) 06/17/21 06:25 Chloride 106.5 mmol/L (98-107) 06/17/21 06:25 Carbon Dioxide 27 mmol/L (22-30) 06/17/21 06:25 Anion Gap 12 mmol/L 06/17/21 06:25 BUN 62 mg/dL (9-20) H 06/17/21 06:25 Creatinine 1.3 mg/dL (0.8-1.3) 06/17/21 06:25 Estimated GFR > 60 ml/min 06/17/21 06:25 BUN/Creatinine Ratio 48 % 06/17/21 06:25 Glucose 135 mg/dL (75-100) H 06/17/21 06:25 POC Glucose 136 mg/dL (70-105) H 06/16/21 17:08 Lactic Acid 1.20 mmol/L (0.7-2.0) 06/06/21 00:04 Calcium 7.8 mg/dL (8.4-10.2) L 06/17/21 06:25 Phosphorus 3.50 mg/dL (2.5-4.5) D 06/17/21 06:25 Magnesium 2.00 mg/dL (1.7-2.3) 06/17/21 06:25 Ferritin 2742.0 ng/mL (30.0-300.0) H 05/27/21 08:09 Total Bilirubin 0.40 mg/dL (0.1-1.2) 06/10/21 01:52 AST 55 units/L (5-40) H 06/10/21 01:52 ALT 21 units/L (7-56) 06/10/21 01:52 Alkaline Phosphatase 88 units/L (35-129) 06/10/21 01:52 Ammonia 22.0 umol/L (25-60) L 05/23/21 18:48 Lactate Dehydrogenase 642 units/L (91-180) H 05/27/21 08:09 Troponin T < 0.010 ng/mL (0.00-0.029) 05/23/21 18:48 C-Reactive Protein 4.10 mg/dL (0.00-1.30) H 06/09/21 05:51 Total Protein 5.6 g/dL (6.3-8.2) L 06/10/21 01:52 Albumin 1.9 g/dL (3.9-5) L 06/10/21 01:52 Albumin/Globulin Ratio 0.5 % 06/10/21 01:52 Procalcitonin 7.52 ng/mL (<0.15) 06/09/21 05:51 TSH 1.150 mlU/mL (0.270-4.200) 05/23/21 18:48 Arterial Blood Glucose 87 mg/dL (65-95) 06/13/21 11:51 Arterial Blood Ionized Calcium 4.5 mg/dL (4.6-5.3) L 05/29/21 17:58 Urine Color Eli (Yellow) 05/30/21 01:00 Urine Turbidity Cloudy (Clear) 05/30/21 01:00 Urine pH 5.0 (5.0-7.0) 05/30/21 01:00 Ur Specific [place] 1.019 (1.003-1.030) 05/30/21 01:00 Urine Protein 100 mg/dl mg/dL (Negative) 05/30/21 01:00 Urine Glucose (UA) Neg mg/dL (Negative) 05/30/21 01:00 Urine Ketones Neg mg/dL (Negative) 05/30/21 01:00 Urine Blood Mod (Negative) 05/30/21 01:00 Urine Nitrite Neg (Negative) 05/30/21 01:00 Urine Bilirubin Neg (Negative) 05/30/21 01:00 Urine Urobilinogen 4.0 mg/dL (<2.0) 05/30/21 01:00 Ur Leukocyte Esterase Neg (Negative) 05/30/21 01:00 Urine WBC (Auto) 12.0 /HPF (0.0-6.0) H 05/30/21 01:00 Urine RBC (Auto) 21.0 /HPF (0.0-6.0) 05/30/21 01:00 U Epithel Cells (Auto) 2.0 /HPF (0-13.0) 05/30/21 01:00 Uric Acid Crystals Few 05/30/21 01:00 Urine Mucus Few /HPF 05/30/21 01:00 Urine Yeast (Budding) 2+ /HPF 05/30/21 01:00 Vancomycin Trough 18.1 ug/mL (5.0-20.0) 06/16/21 22:30 Plasma/Serum Alcohol < 0.01 % (0-0.07) 05/23/21 18:48 Proteinase 3 (PR3) Ab <1.0 AI (<1.0) 05/24/21 20:57 Myeloperoxidase Ab <1.0 AI (<1.0) 05/24/21 20:57 Complement C3 108 mg/dL (82-185) 05/24/21 20:57 Complement C4 29 mg/dL (15-53) 05/24/21 20:57 Coronavirus (PCR) Negative (Negative) 05/26/21 08:41 Blood Type A POSITIVE 05/29/21 08:15 Antibody Screen Negative 05/29/21 08:15 Heart/IV: Voiding Method Condom Catheter Active Medications - Current Medications Current Medications: Generic Name Dose Route Start Last Admin Trade Name Freq PRN Reason Stop Dose Admin Acetaminophen 650 mg 06/15/21 21:13 Acetaminophen 650 Mg Rect Supp WI Q6H PRN Pain MILD(1-3)/Fever >100.5/LUCAS Albuterol/Ipratropium 1 ampul 06/07/21 20:00 06/17/21 08:46 Ipratropium/Albuterol Sulfate 3 Ml Ampul.Neb IH 1 ampul TIDRT MIKE Administration Lipase/Protease/Amylase 1 each 06/03/21 12:23 Lipase 10,500/Protease 25,000/Amylase 43,750 (Units) Dr Rodney FEEDTUBE PRN PRN For Clogged Feeding Tube Heparin Sodium (Porcine) 5,000 unit 05/24/21 06:00 06/17/21 06:17 Heparin 5,000 Unit/1 Ml Vial SUB-Q 5,000 unit Q8HR MIKE Administration Metronidazole 500 mg in 100 mls @ 100 mls/hr 06/08/21 13:00 06/17/21 06:15 Flagyl 500 Mg/100 Ml IV 100 mls/hr Q8H MIKE Administration Protocol Cefepime HCl 2 gm in 100 mls @ 200 mls/hr 06/08/21 23:08 06/17/21 06:16 Cefepime/Ns 2 Gm/100 Ml IV 200 mls/hr Q8HR MIKE Administration Protocol Amino Acids/Electrolytes/Dextrose 1,800 mls @ 75 mls/hr 06/16/21 20:00 06/16/21 22:20 Tpn Adult IV 06/17/21 19:59 75 mls/hr DAILY@2000 MIKE Administration Protocol Vancomycin HCl 1 gm in 250 mls @ 166.667 mls/hr 06/16/21 22:00 06/16/21 23:42 Vancomycin/Ns 1 Gm/250 Ml IV 166.667 mls/hr Q24H MIKE Administration Methylprednisolone Sodium Succinate 10 mg 06/16/21 10:00 06/16/21 22:22 Methylprednisolone Sod Succinate 40 Mg/1 Ml Inj IV 10 mg Q12HR MIKE Administration Morphine Sulfate 2 mg 05/23/21 22:01 06/14/21 00:20 Morphine 2 Mg/1 Ml Inj IV 2 mg Q4H PRN Administration Pain, Moderate (4-6) Ondansetron HCl 4 mg 06/04/21 13:41 06/09/21 22:05 Ondansetron 4 Mg/2 Ml Inj IV 4 mg Q4H PRN Administration Nausea And Vomiting Sodium Chloride 10 ml 05/23/21 22:01 06/15/21 22:15 Sodium Chloride 0.9% 10 Ml Flush Syringe IV 10 ml PRN PRN Administration LINE FLUSH Nutrition/Malnutrition Assess - Dietary Evaluation Nutrition/Malnutrition Findings: Nutrition Notes Start: 05/25/21 09:33 Freq: Status: Active Protocol: Document 06/16/21 12:49 MONTEZ (Rec: 06/16/21 13:39 MONTEZ [id number]) Nutrition Notes Need for Assessment generated from: MD Order Initial or Follow up Reassessment Current Diagnosis Sepsis,Respiratory Failure Other Pertinent Diagnosis Covid 19+, pneu Current Diet TPN; via PICC, continuous at 75 ml/hr Labs/Tests 06/16: Cl 108.8, BUN 53, Cr 1. 4, Glu 160, Phos 2.9, Ca 8.1, Platelets 72. Pertinent Medications 06/16: Reviewed. Height 5 ft 11 in Weight 74.5 kg [place]a Body Weight (kg) 78.18 BMI 22.8 Weight change and time frame Wt flucuations noted Weight Status Appropriate Subjective/Other Information Day 3 PPN. Pt remains on bipap . No BM per chart since 06/09. Percent of energy/protein needs met: 33%/80% Burn Absent Trauma Absent GI Symptoms Constipation Skin Integrity/Comment Integumentary; clear, warm dry . Current % PO Other Minimum of two criteria No physical signs of malnutrition #2 Nutrition Diagnosis No nutrition diagnosis at this time Comments: Not ongoing report on Integumentary concerns As per progress notes 06/15 &06/16. Diagnosis Progress(for reassessment Improved documentation) #1 Nutrition Diagnosis Inadequate oral intake Comments: Nutritional supplement beverage ordered 06/03: TF ordered 06/09: diet advanced to mechanical soft, thin liquids. Tolerating well 06/14 d/t continuous Bipap requiring TPN 06/16 TPN continues Etiology acute illness As Evidenced by Signs and Symptoms PO intake 0% Diagnosis Progress(for reassessment Worsened documentation) Is patient on ventilator? No Is Patient Ambulatory and/or Out of Bed No REE-([facility]-confined to bed) 1926.936 Kcal/Kg value to use for calculation 25 Approximate Energy Requirements Using 1863 kcal/Kg Calculation Used for Recommendations Kcal/kg Additional Notes protein needs: 1.0-1.2 g/Kg/ day; 78-94 gr/day; 312-376 Kcal/day (from IBW). fluid needs: 1.0 ml/kcal, or as per MD. Nutrition Intervention Change Diet Order: Continue TPN, continuous @ 75 ml/hr. Nutrition Support: TPN via PICC at 75 ml/hr. 882 mOsm, AA 4.7%, Dex 6%, Na 50 mEq, K 60 mEq, Ca 0 mEq, Phos 15 mmol, Mg 8 mEq, Cl/CO2 0/ 100%. Mvit 10 ml, Thiamine 100 mg (day 3), Trace Element ( MTE-5) 1.0 ml. Kcal 680 Protein (gm) 85 Carbohydrates (gm) 100 Fat (gm) 0 Fluid (mL) 1,800 Fiber (gm) 0 % RDI: 36.5% Kcal, 90.4% protein Goal #1 Maintain body weight within +/ -3% of current BWt during LOS. Goal #2 Reach and maintain acceptable chemistry lab values during LOS. Follow-Up By: 06/17/21 Additional Comments Phosphorous adjusted (from 30 mmol to 15 mmol) due to increased BUN and Cr lab value changes observed in last 24 hrs. Continue monitoring hydration, integumentary condition, and BM.
--- NOTE | 2021-06-17 09:23 | Progress Note ---
Assessment and Plan 55-year-old -[place] male who was diagnosed with COVID-19 on May 11, 2021 presents to the emergency room today with complaints of shortness of breath and decreased oral intake over the past 10 to 12 days. Patient also has known history of CVA about 20 years ago and it is unknown whether patient had any residual deficits. Patient has not been able to communicate well and most of the history was gotten from the ER staff. Initial oxygen saturation according to EMS was about 70% and patient was placed on nonrebreather. He was eventually placed on oxygen by nasal cannula upon arrival in the emergency room with significant improvement in his oxygen saturation. Work-up in the emergency room reveals a D-dimer greater than 10,000, sodium 151 potassium of 5.1, BUN of 180) and creatinine of 4.3. Patient had a lactic acid of 2.3. WBC was 11.8. CT scan of the head shows no acute abnormality. Chest x-ray shows mild patchy multifocal airspace disease throughout the lungs. No pleural effusion. VQ scan done showed low probability for pulmonary embolism. Patient being admitted with pneumonia possibly secondary to COVID-19, hypoxia and encephalopathy. Patients COVID 19 PCR reported negative. Patient sleeping. Patient is on on BIPAP 20/12, rate 14, FIO2 100% and O2 saturation running 100%. Patient febrile. No Leukocytosis. Blood pressure 151/83, Pulse 68.Respiration 18. Chest xray 06/03/21: reported diffuse hazy airspace opacities bilaterally, mildly worsened compared to reference exam. No pneumothorax. Chest xray 06/09/21: reported slightly improved bilateral pulmonary opacities. No pneumothorax. Patients CAT scan of abdomen done 0n 06/06/21 reported Severe aspiration type pneumonia identified throughout both lower lungs with cavitary lesion within the left lower lobe measuring about [address] of chest done on 06/12/21 reported 1. Diffuse groundglass densities with pulmonary edema, septal thickening and bilateral pulmonary infiltrates are noted in bilateral lungs. Findings could represent viral/Covid pneumonia, atypical pneumonia, nonspecific. 2. Cavitary process within the left lower lung measuring 5.5 x 4.4 cm. Findings could be related to infection, abscess however follow-up after treatment to exclude malignancy. Chest xray done 06/13/21 reported 1. Diffuse groundglass densities with pulmonary edema, septal thickening and bilateral pulmonary infiltrates are noted in bilateral lungs. Findings could represent viral/Covid pneumonia, atypical pneumonia, nonspecific. 2. Cavitary process within the left lower lung measuring 5.5 x 4.4 cm. Findings could be related to infection, abscess however follow-up after treatment to exclude malignancy. BIPAP settings changed to 20/10, rate 14, FIO2 90% Chest xray 06/17/21 reported Interval worsening in diffuse airspace disease bilaterally. No significant effusion. No pneumothorax. Patient presently on Cefepime, Flagyl, I/V solumedrol and S/C Heparin, and albuterol/atrovent aerosol treatments. If respiratory status gets worse , recommend intubation and transfer to ICU. I spent critical care time of 40 minutes, reviewing the chart, examine the patient, review CAT scan of chest, lab results, talking to the respiratory therapy and nursing staff and work up plan of treatment in this critically ill patient. - Patient Problems (1) Acute respiratory failure with hypoxia Current Visit: Yes Status: Acute Plan to address problem: BIPAP 20/10, rate 14, FIO2 100% Continue I/V solumedrol. Continue S/C heparin. Famotidine. Continue albuterol/atrovent aerosol treatments. (2) Abscess of left lung with pneumonia Current Visit: Yes Status: Acute Plan to address problem: Pneumonia and abscess likely from aspiration. Patient is on cefepime, Flagyl . (3) Suspected 2019 novel coronavirus infection Current Visit: Yes Status: Acute Plan to address problem: Patient coronavirus PCR is negative. Subjective Date of service: 06/17/21 Principal diagnosis: Acute hypoxemic resp failure; Pneumonia; PUI COVID-19 infection Interval history: 55-year-old -[place] male who was diagnosed with COVID-19 on May 11, 2021 presents to the emergency room today with complaints of shortness of breath and decreased oral intake over the past 10 to 12 days. Patient also has known history of CVA about 20 years ago and it is unknown whether patient had any residual deficits. Patient has not been able to commu nicate well and most of the history was gotten from the ER staff. Initial oxygen saturation according to EMS was about 70% and patient was placed on nonrebreather. He was eventually placed on oxygen by nasal cannula upon arrival in the emergency room with significant improvement in his oxygen satur ation. Work-up in the emergency room reveals a D-dimer greater than 10,000, sodium 151 potassium of 5.1, BUN of 180) and creatinine of 4.3. Patient had a lactic acid of 2.3. WBC was 11.8. CT scan of the head shows no acute abnormality. Chest x-ray shows mild patchy multifocal airspace disease throughout the lungs. No pleural effusion. VQ scan done showed low probability for pulmonary embolism. Patient being admitted with pneumonia possibly secondary to COVID-19, hypoxia and encephalopathy. Patients COVID 19 PCR reported negative. Patient having increased work of breathing. Patient pulled his BIPAP Off. Patient Placed back on on on BIPAP 20/10, rate 20, FIO2 100% and O2 saturation running running in 80s. Patient agitated. Patient febrile. No Leukocytosis. Blood pressure 179/100, Pulse 149.Respiration 35. Obtaining blood gases and chest xray. Chest xray 06/03/21: reported diffuse hazy airspace opacities bilaterally, mildly worsened compared to reference exam. No pneumothorax. Chest xray 06/09/21: reported slightly improved bilateral pulmonary opacities. No pneumothorax. Patients CAT scan of abdomen done 0n 06/06/21 reported Severe aspiration type pneumonia identified throughout both lower lungs with cavitary lesion within the left lower lobe measuring about [address] of chest done on 06/12/21 reported 1. Diffuse groundglass densities with pulmonary edema, septal thickening and bilateral pulmonary infiltrates are noted in bilateral lungs. Findings could represent viral/Covid pneumonia, atypical pneumonia, nonspecific. 2. Cavitary process within the left lower lung measuring 5.5 x 4.4 cm. Findings could be related to infection, abscess however follow-up after treatment to exclude malignancy. Chest xray done 06/13/21 reported 1. Diffuse groundglass densities with pulmonary edema, septal thickening and bilateral pulmonary infiltrates are noted in bilateral lungs. Findings could represent viral/Covid pneumonia, atypical pneumonia, nonspecific. 2. Cavitary process within the left lower lung measuring 5.5 x 4.4 cm. Findings could be related to infection, abscess however follow-up after treatment to exclude malignancy. Changed bipap settings to 20/10, rate 14, FIO2 90%. Chest xray 06/17/21 reported Interval worsening in diffuse airspace disease bilaterally. No significant effusion. No pneumothorax. Patient presently on Cefepime, Flagyl, I/V solumedrol and S/C Heparin, and albuterol/atrovent aerosol treatments. Recommend GI prophylaxis. If respiratory status gets worse , recommend intubation and transfer to ICU. Objective Vital Signs - 12hr 06/16/21 06/16/21 06/17/21 22:00 23:00 00:00 Temperature Pulse Rate 76 84 75 Pulse Rate [ From Monitor] Respiratory 20 22 20 Rate Blood Pressure 150/78 139/80 158/80 O2 Sat by Pulse 96 99 99 Oximetry 06/17/21 06/17/21 06/17/21 00:05 00:25 01:00 Temperature Pulse Rate 74 76 73 Pulse Rate [ From Monitor] Respiratory 22 22 Rate Blood Pressure 152/81 144/79 O2 Sat by Pulse 100 99 Oximetry 06/17/21 06/17/21 06/17/21 02:00 03:00 04:00 Temperature 98.2 F Pulse Rate 83 79 81 Pulse Rate [ 81 From Monitor] Respiratory 23 22 20 Rate Blood Pressure 145/78 144/81 137/81 O2 Sat by Pulse 98 99 99 Oximetry 06/17/21 06/17/21 06/17/21 04:15 05:00 06:00 Temperature Pulse Rate 79 75 86 Pulse Rate [ From Monitor] Respiratory 21 21 Rate Blood Pressure 146/80 148/84 O2 Sat by Pulse 99 97 Oximetry 06/17/21 06/17/21 07:00 07:34 Temperature 99.1 F Pulse Rate 79 Pulse Rate [ From Monitor] Respiratory 24 Rate Blood Pressure 147/79 O2 Sat by Pulse 99 Oximetry Constitutional: lethargic, asleep, appears uncomfortable, other (middle aged male with increased respiratory effort on BIPAP) Eyes: non-icteric ENT: oropharynx moist, other (BIPAP FFM) Neck: supple, no JVD Effort: mildly labored Ascultation: Bilateral: diminished breath sounds (bases), rhonchi Percussion: Bilateral: not dull Cardiovascular: regular rate and rhythm Gastrointestinal: hypoactive bowel sounds, soft, non-tender, other (distended but very soft) Integumentary: normal Extremities: no cyanosis, no edema, pulses normal, no ischemia or petechiae Neurologic: pupils equal and round, CN II-XII normal, other (somnolent) Psychiatric: other (flat affect) CBC and BMP: 06/18/21 Unknown 06/18/21 Unknown ABG, PT/INR, D-dimer: ABG ABG pH 7.408 (7.320-7.450) 06/13/21 11:51 POC ABG pCO2 42.7 mmHg (32.0-48.0) 06/13/21 11:51 ABG pCO2 29.0 mm Hg 05/30/21 22:32 POC ABG pO2 48.3 mmHg (83-108) L 06/13/21 11:51 ABG pO2 141.8 mm Hg (80.0-90.0) H 05/30/21 22:32 POC ABG HCO3 26.3 06/13/21 11:51 ABG O2 Saturation 84.9 (0-100) 06/13/21 11:51 PT/INR, D-dimer D-Dimer 3584.01 ng/mlDDU (0-234) H 05/27/21 08:09 Abnormal lab findings: Abnormal Labs 05/23/21 05/23/21 05/23/21 18:48 18:48 18:48 WBC 11.8 H RBC 5.18 H Hgb Hct MCV MCH MCHC RDW Plt Count Seg Neuts % (Manual) 84.0 H Lymphocytes % (Manual) Monocytes % (Manual) Nucleated RBC % Seg Neutrophils # Man 9.9 H Lymphocytes # (Manual) D-Dimer > 13342 H ABG pH POC ABG pCO2 POC ABG pO2 ABG pO2 ABG HCO3 ABG Base Excess ABG Hemoglobin ABG Oxyhemoglobin ABG Sodium ABG Potassium ABG Chloride ABG Glucose VBG pH Carboxyhemoglobin Sodium Potassium Chloride Carbon Dioxide BUN Creatinine Glucose POC Glucose Lactic Acid 2.30 H* Calcium Phosphorus Magnesium Ferritin AST Ammonia Lactate Dehydrogenase C-Reactive Protein Total Protein Albumin Arterial Blood Glucose Arterial Blood Ionized Calcium Urine WBC (Auto) Vancomycin Trough 05/23/21 05/23/21 05/23/21 18:48 18:48 18:48 WBC RBC Hgb Hct MCV MCH MCHC RDW Plt Count Seg Neuts % (Manual) Lymphocytes % (Manual) Monocytes % (Manual) Nucleated RBC % Seg Neutrophils # Man Lymphocytes # (Manual) D-Dimer ABG pH POC ABG pCO2 POC ABG pO2 ABG pO2 ABG HCO3 ABG Base Excess ABG Hemoglobin ABG Oxyhemoglobin ABG Sodium ABG Potassium ABG Chloride ABG Glucose VBG pH Carboxyhemoglobin Sodium 151 H Potassium 5.1 H Chloride 113.2 H Carbon Dioxide 17 L BUN 180 H Creatinine 4.3 H Glucose 114 H POC Glucose Lactic Acid Calcium Phosphorus Magnesium Ferritin 2000.0 H AST Ammonia 22.0 L Lactate Dehydrogenase 577 H C-Reactive Protein 8.80 H Total Protein 9.4 H Albumin 3.0 L Arterial Blood Glucose Arterial Blood Ionized Calcium Urine WBC (Auto) Vancomycin Trough 05/23/21 05/24/21 05/24/21 21:06 02:09 02:09 WBC RBC Hgb Hct MCV MCH MCHC RDW Plt Count Seg Neuts % (Manual) Lymphocytes % (Manual) Monocytes % (Manual) Nucleated RBC % Seg Neutrophils # Man Lymphocytes # (Manual) D-Dimer ABG pH POC ABG pCO2 POC ABG pO2 ABG pO2 ABG HCO3 ABG Base Excess ABG Hemoglobin ABG Oxyhemoglobin ABG Sodium ABG Potassium ABG Chloride ABG Glucose VBG pH 7.254 L Carboxyhemoglobin Sodium Potassium Chloride Carbon Dioxide BUN Creatinine Glucose POC Glucose Lactic Acid 2.10 H* 2.30 H* Calcium Phosphorus Magnesium Ferritin AST Ammonia Lactate Dehydrogenase C-Reactive Protein Total Protein Albumin Arterial Blood Glucose Arterial Blood Ionized Calcium Urine WBC (Auto) Vancomycin Trough 05/24/21 05/24/21 05/24/21 13:11 17:34 18:12 WBC RBC Hgb Hct MCV MCH MCHC RDW Plt Count Seg Neuts % (Manual) Lymphocytes % (Manual) Monocytes % (Manual) Nucleated RBC % Seg Neutrophils # Man Lymphocytes # (Manual) D-Dimer ABG pH POC ABG pCO2 POC ABG pO2 ABG pO2 ABG HCO3 ABG Base Excess ABG Hemoglobin ABG Oxyhemoglobin ABG Sodium ABG Potassium ABG Chloride ABG Glucose VBG pH Carboxyhemoglobin Sodium 155 H Potassium 6.9 H* D 5.7 H Chloride 121.9 H Carbon Dioxide 20 L BUN 139 H Creatinine 2.7 H Glucose 139 H POC Glucose 153 H Lactic Acid Calcium Phosphorus Magnesium Ferritin AST Ammonia Lactate Dehydrogenase C-Reactive Protein Total Protein Albumin Arterial Blood Glucose Arterial Blood Ionized Calcium Urine WBC (Auto) Vancomycin Trough 05/25/21 05/25/21 05/26/21 11:33 11:33 03:15 WBC 13.8 H RBC 5.06 H Hgb Hct MCV MCH MCHC RDW Plt Count Seg Neuts % (Manual) Lymphocytes % (Manual) Monocytes % (Manual) Nucleated RBC % Seg Neutrophils # Man Lymphocytes # (Manual) D-Dimer ABG pH POC ABG pCO2 POC ABG pO2 ABG pO2 ABG HCO3 ABG Base Excess ABG Hemoglobin ABG Oxyhemoglobin ABG Sodium ABG Potassium ABG Chloride ABG Glucose VBG pH Carboxyhemoglobin Sodium 164 H* D 166 H* Potassium 5.4 H 5.5 H Chloride 131.3 H 129.2 H Carbon Dioxide BUN 109 H 102 H Creatinine 1.9 H 1.8 H Glucose 117 H 113 H POC Glucose Lactic Acid Calcium Phosphorus Magnesium Ferritin AST Ammonia Lactate Dehydrogenase 711 H C-Reactive Protein 7.90 H Total Protein Albumin Arterial Blood Glucose Arterial Blood Ionized Calcium Urine WBC (Auto) Vancomycin Trough 05/26/21 05/26/21 05/26/21 03:15 03:15 03:15 WBC 13.1 H RBC 5.43 H Hgb 15.3 H Hct 48.5 H MCV MCH MCHC RDW 15.4 H Plt Count Seg Neuts % (Manual) Lymphocytes % (Manual) Monocytes % (Manual) Nucleated RBC % Seg Neutrophils # Man Lymphocytes # (Manual) D-Dimer 6229.14 H ABG pH POC ABG pCO2 POC ABG pO2 ABG pO2 ABG HCO3 ABG Base Excess ABG Hemoglobin ABG Oxyhemoglobin ABG Sodium ABG Potassium ABG Chloride ABG Glucose VBG pH Carboxyhemoglobin Sodium Potassium Chloride Carbon Dioxide BUN Creatinine Glucose POC Glucose Lactic Acid Calcium Phosphorus Magnesium Ferritin 2991.0 H AST Ammonia Lactate Dehydrogenase C-Reactive Protein Total Protein Albumin Arterial Blood Glucose Arterial Blood Ionized Calcium Urine WBC (Auto) Vancomycin Trough 05/27/21 05/27/21 05/27/21 08:09 08:09 08:09 WBC 12.4 H RBC 5.27 H Hgb Hct 46.6 H MCV MCH MCHC 31 L RDW 15.7 H Plt Count Seg Neuts % (Manual) Lymphocytes % (Manual) Monocytes % (Manual) Nucleated RBC % Seg Neutrophils # Man Lymphocytes # (Manual) D-Dimer 3584.01 H ABG pH POC ABG pCO2 POC ABG pO2 ABG pO2 ABG HCO3 ABG Base Excess ABG Hemoglobin ABG Oxyhemoglobin ABG Sodium ABG Potassium ABG Chloride ABG Glucose VBG pH Carboxyhemoglobin Sodium 174 H* Potassium Chloride 136.9 H Carbon Dioxide BUN 90 H Creatinine 1.8 H Glucose POC Glucose Lactic Acid Calcium Phosphorus Magnesium Ferritin AST Ammonia Lactate Dehydrogenase 642 H C-Reactive Protein 5.20 H Total Protein Albumin Arterial Blood Glucose Arterial Blood Ionized Calcium Urine WBC (Auto) Vancomycin Trough 05/27/21 05/28/21 05/28/21 08:09 07:31 07:31 WBC RBC Hgb Hct MCV MCH 27 L MCHC 31 L RDW Plt Count Seg Neuts % (Manual) 88.0 H Lymphocytes % (Manual) 11.0 L Monocytes % (Manual) Nucleated RBC % Seg Neutrophils # Man 8.3 H Lymphocytes # (Manual) 1.0 L D-Dimer ABG pH POC ABG pCO2 POC ABG pO2 ABG pO2 ABG HCO3 ABG Base Excess ABG Hemoglobin ABG Oxyhemoglobin ABG Sodium ABG Potassium ABG Chloride ABG Glucose VBG pH Carboxyhemoglobin Sodium 162 H* D Potassium Chloride 125.8 H Carbon Dioxide BUN 72 H Creatinine 1.6 H Glucose 131 H POC Glucose Lactic Acid Calcium Phosphorus Magnesium 3.00 H Ferritin 2742.0 H AST Ammonia Lactate Dehydrogenase C-Reactive Protein Total Protein Albumin Arterial Blood Glucose Arterial Blood Ionized Calcium Urine WBC (Auto) Vancomycin Trough 05/29/21 05/29/21 05/29/21 06:40 06:40 17:58 WBC 14.1 H RBC Hgb Hct MCV MCH 27 L MCHC 31 L RDW Plt Count Seg Neuts % (Manual) 85.0 H Lymphocytes % (Manual) 9.0 L Monocytes % (Manual) Nucleated RBC % 1.0 H Seg Neutrophils # Man 12.0 H Lymphocytes # (Manual) D-Dimer ABG pH 7.505 H POC ABG pCO2 30.3 L POC ABG pO2 128.1 H ABG pO2 ABG HCO3 ABG Base Excess ABG Hemoglobin 11.9 L ABG Oxyhemoglobin ABG Sodium ABG Potassium ABG Chloride 113.0 H ABG Glucose 110 H VBG pH Carboxyhemoglobin Sodium 148 H D Potassium Chloride 111.3 H Carbon Dioxide 20 L BUN 45 H Creatinine Glucose POC Glucose Lactic Acid Calcium Phosphorus 2.10 L D Magnesium Ferritin AST Ammonia Lactate Dehydrogenase C-Reactive Protein Total Protein Albumin Arterial Blood Glucose 110 H Arterial Blood Ionized Calcium 4.5 L Urine WBC (Auto) Vancomycin Trough 05/30/21 05/30/21 05/30/21 01:00 06:06 13:48 WBC RBC Hgb Hct MCV MCH MCHC RDW Plt Count Seg Neuts % (Manual) Lymphocytes % (Manual) Monocytes % (Manual) Nucleated RBC % Seg Neutrophils # Man Lymphocytes # (Manual) D-Dimer ABG pH POC ABG pCO2 POC ABG pO2 ABG pO2 90.9 H ABG HCO3 ABG Base Excess ABG Hemoglobin 11.8 L ABG Oxyhemoglobin ABG Sodium ABG Potassium ABG Chloride ABG Glucose VBG pH Carboxyhemoglobin Sodium 150 H Potassium Chloride 117.6 H Carbon Dioxide BUN 40 H Creatinine Glucose POC Glucose Lactic Acid Calcium 8.3 L Phosphorus Magnesium Ferritin AST Ammonia Lactate Dehydrogenase C-Reactive Protein Total Protein Albumin Arterial Blood Glucose Arterial Blood Ionized Calcium Urine WBC (Auto) 12.0 H Vancomycin Trough 05/30/21 05/31/21 05/31/21 22:32 02:22 02:22 WBC RBC Hgb 11.2 L Hct 34.8 L MCV MCH MCHC RDW Plt Count 127 L Seg Neuts % (Manual) 97.0 H Lymphocytes % (Manual) Monocytes % (Manual) Nucleated RBC % Seg Neutrophils # Man 10.5 H Lymphocytes # (Manual) 0.0 L D-Dimer ABG pH 7.454 H POC ABG pCO2 POC ABG pO2 ABG pO2 141.8 H ABG HCO3 19.9 L ABG Base Excess -2.7 L ABG Hemoglobin ABG Oxyhemoglobin ABG Sodium ABG Potassium ABG Chloride ABG Glucose VBG pH Carboxyhemoglobin Sodium 152 H Potassium Chloride 118.9 H Carbon Dioxide 19 L BUN 48 H Creatinine 1.5 H Glucose 101 H POC Glucose Lactic Acid Calcium 8.3 L Phosphorus Magnesium Ferritin AST Ammonia Lactate Dehydrogenase C-Reactive Protein Total Protein Albumin Arterial Blood Glucose Arterial Blood Ionized Calcium Urine WBC (Auto) Vancomycin Trough 05/31/21 05/31/21 06/01/21 11:42 21:28 07:10 WBC RBC Hgb Hct MCV MCH MCHC RDW Plt Count Seg Neuts % (Manual) Lymphocytes % (Manual) Monocytes % (Manual) Nucleated RBC % Seg Neutrophils # Man Lymphocytes # (Manual) D-Dimer ABG pH POC ABG pCO2 POC ABG pO2 ABG pO2 ABG HCO3 ABG Base Excess ABG Hemoglobin ABG Oxyhemoglobin ABG Sodium ABG Potassium ABG Chloride ABG Glucose VBG pH Carboxyhemoglobin Sodium 150 H Potassium Chloride 115.7 H Carbon Dioxide BUN 47 H Creatinine Glucose 115 H POC Glucose 161 H Lactic Acid Calcium Phosphorus Magnesium 2.50 H Ferritin AST Ammonia Lactate Dehydrogenase C-Reactive Protein Total Protein Albumin Arterial Blood Glucose Arterial Blood Ionized Calcium Urine WBC (Auto) Vancomycin Trough 20.2 H 06/01/21 06/01/21 06/01/21 07:10 07:54 10:39 WBC RBC Hgb 10.7 L Hct 33.5 L MCV MCH MCHC RDW Plt Count Seg Neuts % (Manual) 92.0 H Lymphocytes % (Manual) 4.0 L Monocytes % (Manual) Nucleated RBC % Seg Neutrophils # Man Lymphocytes # (Manual) 0.3 L D-Dimer ABG pH POC ABG pCO2 POC ABG pO2 ABG pO2 ABG HCO3 ABG Base Excess ABG Hemoglobin ABG Oxyhemoglobin ABG Sodium ABG Potassium ABG Chloride ABG Glucose VBG pH Carboxyhemoglobin Sodium 152 H Potassium Chloride 117.6 H Carbon Dioxide BUN 50 H Creatinine Glucose 140 H POC Glucose 127 H Lactic Acid Calcium 8.3 L Phosphorus Magnesium Ferritin AST Ammonia Lactate Dehydrogenase C-Reactive Protein Total Protein Albumin Arterial Blood Glucose Arterial Blood Ionized Calcium Urine WBC (Auto) Vancomycin Trough 06/01/21 06/01/21 06/01/21 11:11 16:16 21:45 WBC RBC Hgb Hct MCV MCH MCHC RDW Plt Count Seg Neuts % (Manual) Lymphocytes % (Manual) Monocytes % (Manual) Nucleated RBC % Seg Neutrophils # Man Lymphocytes # (Manual) D-Dimer ABG pH POC ABG pCO2 POC ABG pO2 ABG pO2 ABG HCO3 ABG Base Excess ABG Hemoglobin ABG Oxyhemoglobin ABG Sodium ABG Potassium ABG Chloride ABG Glucose VBG pH Carboxyhemoglobin Sodium Potassium Chloride Carbon Dioxide BUN Creatinine Glucose POC Glucose 120 H 129 H 150 H Lactic Acid Calcium Phosphorus Magnesium Ferritin AST Ammonia Lactate Dehydrogenase C-Reactive Protein Total Protein Albumin Arterial Blood Glucose Arterial Blood Ionized Calcium Urine WBC (Auto) Vancomycin Trough 06/02/21 06/02/21 06/02/21 06:53 06:53 07:52 WBC RBC Hgb 10.4 L Hct 32.4 L MCV MCH 27 L MCHC RDW Plt Count Seg Neuts % (Manual) 93.0 H Lymphocytes % (Manual) 3.0 L Monocytes % (Manual) Nucleated RBC % Seg Neutrophils # Man Lymphocytes # (Manual) 0.2 L D-Dimer ABG pH POC ABG pCO2 POC ABG pO2 ABG pO2 ABG HCO3 ABG Base Excess ABG Hemoglobin ABG Oxyhemoglobin ABG Sodium ABG Potassium ABG Chloride ABG Glucose VBG pH Carboxyhemoglobin Sodium 149 H Potassium Chloride 112.6 H Carbon Dioxide BUN 54 H Creatinine Glucose 123 H POC Glucose 116 H Lactic Acid Calcium 8.2 L Phosphorus Magnesium Ferritin AST Ammonia Lactate Dehydrogenase C-Reactive Protein Total Protein Albumin Arterial Blood Glucose Arterial Blood Ionized Calcium Urine WBC (Auto) Vancomycin Trough 06/03/21 06/03/21 06/03/21 05:57 05:57 21:23 WBC RBC Hgb 10.7 L Hct 33.0 L MCV 83 L MCH 27 L MCHC RDW Plt Count Seg Neuts % (Manual) 88.0 H Lymphocytes % (Manual) 8.0 L Monocytes % (Manual) Nucleated RBC % 2.0 H Seg Neutrophils # Man Lymphocytes # (Manual) 0.6 L D-Dimer ABG pH POC ABG pCO2 POC ABG pO2 39.0 L ABG pO2 ABG HCO3 ABG Base Excess ABG Hemoglobin ABG Oxyhemoglobin 69.1 L ABG Sodium 134.1 L ABG Potassium ABG Chloride ABG Glucose 135 H VBG pH Carboxyhemoglobin Sodium Potassium Chloride Carbon Dioxide BUN 36 H Creatinine Glucose 102 H POC Glucose Lactic Acid Calcium 8.0 L Phosphorus 2.20 L D Magnesium Ferritin AST Ammonia Lactate Dehydrogenase C-Reactive Protein Total Protein Albumin Arterial Blood Glucose 135 H Arterial Blood Ionized Calcium Urine WBC (Auto) Vancomycin Trough 06/04/21 06/04/21 06/04/21 07:04 07:04 17:42 WBC RBC Hgb 11.3 L Hct 34.9 L MCV MCH 27 L MCHC RDW Plt Count Seg Neuts % (Manual) Lymphocytes % (Manual) 5.0 L Monocytes % (Manual) Nucleated RBC % Seg Neutrophils # Man 8.4 H Lymphocytes # (Manual) 0.5 L D-Dimer ABG pH POC ABG pCO2 POC ABG pO2 ABG pO2 ABG HCO3 ABG Base Excess ABG Hemoglobin ABG Oxyhemoglobin ABG Sodium ABG Potassium ABG Chloride ABG Glucose VBG pH Carboxyhemoglobin Sodium Potassium Chloride Carbon Dioxide BUN 27 H Creatinine Glucose POC Glucose 136 H Lactic Acid Calcium 8.2 L Phosphorus Magnesium Ferritin AST Ammonia Lactate Dehydrogenase C-Reactive Protein Total Protein Albumin Arterial Blood Glucose Arterial Blood Ionized Calcium Urine WBC (Auto) Vancomycin Trough 06/05/21 06/05/21 06/05/21 05:10 12:32 15:45 WBC RBC Hgb Hct MCV MCH MCHC RDW Plt Count Seg Neuts % (Manual) Lymphocytes % (Manual) Monocytes % (Manual) Nucleated RBC % Seg Neutrophils # Man Lymphocytes # (Manual) D-Dimer ABG pH POC ABG pCO2 POC ABG pO2 ABG pO2 ABG HCO3 ABG Base Excess ABG Hemoglobin ABG Oxyhemoglobin ABG Sodium ABG Potassium ABG Chloride ABG Glucose VBG pH Carboxyhemoglobin Sodium Potassium 3.5 L Chloride Carbon Dioxide BUN 35 H Creatinine Glucose 130 H POC Glucose 122 H 119 H Lactic Acid Calcium 8.2 L Phosphorus Magnesium Ferritin AST Ammonia Lactate Dehydrogenase C-Reactive Protein Total Protein Albumin Arterial Blood Glucose Arterial Blood Ionized Calcium Urine WBC (Auto) Vancomycin Trough 06/05/21 06/05/21 06/06/21 20:06 21:27 00:04 WBC RBC Hgb Hct MCV MCH MCHC RDW Plt Count Seg Neuts % (Manual) Lymphocytes % (Manual) Monocytes % (Manual) Nucleated RBC % Seg Neutrophils # Man Lymphocytes # (Manual) D-Dimer ABG pH 7.456 H POC ABG pCO2 POC ABG pO2 ABG pO2 ABG HCO3 ABG Base Excess ABG Hemoglobin 10.3 L ABG Oxyhemoglobin ABG Sodium ABG Potassium 3.1 L ABG Chloride ABG Glucose 125 H VBG pH Carboxyhemoglobin 0.3 L Sodium Potassium Chloride Carbon Dioxide BUN Creatinine Glucose POC Glucose 113 H Lactic Acid Calcium Phosphorus Magnesium Ferritin AST Ammonia Lactate Dehydrogenase C-Reactive Protein 19.60 H Total Protein Albumin Arterial Blood Glucose 125 H Arterial Blood Ionized Calcium Urine WBC (Auto) Vancomycin Trough 06/06/21 06/06/21 06/07/21 04:35 22:37 05:54 WBC RBC Hgb Hct MCV MCH MCHC RDW Plt Count Seg Neuts % (Manual) Lymphocytes % (Manual) Monocytes % (Manual) Nucleated RBC % Seg Neutrophils # Man Lymphocytes # (Manual) D-Dimer ABG pH POC ABG pCO2 POC ABG pO2 ABG pO2 ABG HCO3 ABG Base Excess ABG Hemoglobin ABG Oxyhemoglobin ABG Sodium ABG Potassium ABG Chloride ABG Glucose VBG pH Carboxyhemoglobin Sodium Potassium Chloride Carbon Dioxide BUN 43 H Creatinine Glucose POC Glucose 114 H 130 H Lactic Acid Calcium 7.6 L Phosphorus Magnesium Ferritin AST Ammonia Lactate Dehydrogenase C-Reactive Protein Total Protein Albumin Arterial Blood Glucose Arterial Blood Ionized Calcium Urine WBC (Auto) Vancomycin Trough 06/07/21 06/07/21 06/07/21 07:32 10:03 11:36 WBC RBC 3.63 L Hgb 9.8 L Hct 30.3 L MCV 83 L MCH 27 L MCHC RDW Plt Count Seg Neuts % (Manual) Lymphocytes % (Manual) Monocytes % (Manual) Nucleated RBC % Seg Neutrophils # Man Lymphocytes # (Manual) D-Dimer ABG pH POC ABG pCO2 POC ABG pO2 ABG pO2 ABG HCO3 ABG Base Excess ABG Hemoglobin ABG Oxyhemoglobin ABG Sodium ABG Potassium ABG Chloride ABG Glucose VBG pH Carboxyhemoglobin Sodium Potassium 3.2 L Chloride 108.5 H Carbon Dioxide BUN 36 H Creatinine Glucose 139 H POC Glucose 125 H Lactic Acid Calcium 8.0 L Phosphorus Magnesium Ferritin AST Ammonia Lactate Dehydrogenase C-Reactive Protein Total Protein Albumin Arterial Blood Glucose Arterial Blood Ionized Calcium Urine WBC (Auto) Vancomycin Trough 06/07/21 06/07/21 06/08/21 17:54 22:14 07:18 WBC RBC Hgb Hct MCV MCH MCHC RDW Plt Count Seg Neuts % (Manual) Lymphocytes % (Manual) Monocytes % (Manual) Nucleated RBC % Seg Neutrophils # Man Lymphocytes # (Manual) D-Dimer ABG pH POC ABG pCO2 POC ABG pO2 ABG pO2 ABG HCO3 ABG Base Excess ABG Hemoglobin ABG Oxyhemoglobin ABG Sodium ABG Potassium ABG Chloride ABG Glucose VBG pH Carboxyhemoglobin Sodium 149 H Potassium Chloride 110.2 H Carbon Dioxide BUN 31 H Creatinine Glucose 131 H POC Glucose 121 H 131 H Lactic Acid Calcium 8.1 L Phosphorus Magnesium Ferritin AST Ammonia Lactate Dehydrogenase C-Reactive Protein Total Protein Albumin Arterial Blood Glucose Arterial Blood Ionized Calcium Urine WBC (Auto) Vancomycin Trough 06/08/21 06/08/21 06/08/21 07:45 12:07 18:02 WBC RBC Hgb Hct MCV MCH MCHC RDW Plt Count Seg Neuts % (Manual) Lymphocytes % (Manual) Monocytes % (Manual) Nucleated RBC % Seg Neutrophils # Man Lymphocytes # (Manual) D-Dimer ABG pH POC ABG pCO2 POC ABG pO2 ABG pO2 ABG HCO3 ABG Base Excess ABG Hemoglobin ABG Oxyhemoglobin ABG Sodium ABG Potassium ABG Chloride ABG Glucose VBG pH Carboxyhemoglobin Sodium Potassium Chloride Carbon Dioxide BUN Creatinine Glucose POC Glucose 120 H 127 H 148 H Lactic Acid Calcium Phosphorus Magnesium Ferritin AST Ammonia Lactate Dehydrogenase C-Reactive Protein Total Protein Albumin Arterial Blood Glucose Arterial Blood Ionized Calcium Urine WBC (Auto) Vancomycin Trough 06/09/21 06/09/21 06/09/21 05:51 05:51 11:37 WBC 3.9 L RBC 3.38 L Hgb 9.4 L Hct 28.5 L MCV MCH MCHC RDW Plt Count Seg Neuts % (Manual) Lymphocytes % (Manual) Monocytes % (Manual) Nucleated RBC % Seg Neutrophils # Man Lymphocytes # (Manual) D-Dimer ABG pH POC ABG pCO2 POC ABG pO2 ABG pO2 ABG HCO3 ABG Base Excess ABG Hemoglobin ABG Oxyhemoglobin ABG Sodium ABG Potassium ABG Chloride ABG Glucose VBG pH Carboxyhemoglobin Sodium Potassium Chloride 108.4 H Carbon Dioxide BUN 32 H Creatinine Glucose 137 H POC Glucose 115 H Lactic Acid Calcium 7.5 L Phosphorus Magnesium Ferritin AST 55 H Ammonia Lactate Dehydrogenase C-Reactive Protein 4.10 H Total Protein 5.6 L Albumin 2.0 L Arterial Blood Glucose Arterial Blood Ionized Calcium Urine WBC (Auto) Vancomycin Trough 06/09/21 06/09/21 06/10/21 17:32 22:18 01:52 WBC RBC 3.62 L Hgb 9.9 L Hct 29.8 L MCV 82 L MCH 27 L MCHC RDW Plt Count Seg Neuts % (Manual) Lymphocytes % (Manual) Monocytes % (Manual) Nucleated RBC % Seg Neutrophils # Man Lymphocytes # (Manual) D-Dimer ABG pH POC ABG pCO2 POC ABG pO2 ABG pO2 ABG HCO3 ABG Base Excess ABG Hemoglobin ABG Oxyhemoglobin ABG Sodium ABG Potassium ABG Chloride ABG Glucose VBG pH Carboxyhemoglobin Sodium Potassium Chloride Carbon Dioxide BUN Creatinine Glucose POC Glucose 113 H 110 H Lactic Acid Calcium Phosphorus Magnesium Ferritin AST Ammonia Lactate Dehydrogenase C-Reactive Protein Total Protein Albumin Arterial Blood Glucose Arterial Blood Ionized Calcium Urine WBC (Auto) Vancomycin Trough 06/10/21 06/10/21 06/10/21 01:52 16:14 22:45 WBC RBC Hgb Hct MCV MCH MCHC RDW Plt Count Seg Neuts % (Manual) Lymphocytes % (Manual) Monocytes % (Manual) Nucleated RBC % Seg Neutrophils # Man Lymphocytes # (Manual) D-Dimer ABG pH POC ABG pCO2 POC ABG pO2 ABG pO2 ABG HCO3 ABG Base Excess ABG Hemoglobin ABG Oxyhemoglobin ABG Sodium ABG Potassium ABG Chloride ABG Glucose VBG pH Carboxyhemoglobin Sodium Potassium Chloride 108.2 H Carbon Dioxide BUN 32 H Creatinine 1.4 H Glucose POC Glucose 111 H 107 H Lactic Acid Calcium 7.8 L Phosphorus Magnesium Ferritin AST 55 H Ammonia Lactate Dehydrogenase C-Reactive Protein Total Protein 5.6 L Albumin 1.9 L Arterial Blood Glucose Arterial Blood Ionized Calcium Urine WBC (Auto) Vancomycin Trough 06/11/21 06/11/21 06/11/21 05:51 05:51 05:51 WBC RBC 3.35 L Hgb 9.1 L Hct 28.1 L MCV MCH 27 L MCHC RDW Plt Count 117 L Seg Neuts % (Manual) 93.0 H Lymphocytes % (Manual) 1.0 L Monocytes % (Manual) Nucleated RBC % Seg Neutrophils # Man Lymphocytes # (Manual) 0.0 L D-Dimer ABG pH POC ABG pCO2 POC ABG pO2 ABG pO2 ABG HCO3 ABG Base Excess ABG Hemoglobin ABG Oxyhemoglobin ABG Sodium ABG Potassium ABG Chloride ABG Glucose VBG pH Carboxyhemoglobin Sodium 146 H Potassium Chloride 110.9 H Carbon Dioxide BUN 40 H Creatinine Glucose 119 H POC Glucose Lactic Acid Calcium 7.8 L Phosphorus Magnesium Ferritin AST Ammonia Lactate Dehydrogenase C-Reactive Protein Total Protein Albumin Arterial Blood Glucose Arterial Blood Ionized Calcium Urine WBC (Auto) Vancomycin Trough 22.6 H 06/11/21 06/11/21 06/11/21 08:28 11:36 15:47 WBC RBC Hgb Hct MCV MCH MCHC RDW Plt Count Seg Neuts % (Manual) Lymphocytes % (Manual) Monocytes % (Manual) Nucleated RBC % Seg Neutrophils # Man Lymphocytes # (Manual) D-Dimer ABG pH POC ABG pCO2 POC ABG pO2 ABG pO2 ABG HCO3 ABG Base Excess ABG Hemoglobin ABG Oxyhemoglobin ABG Sodium ABG Potassium ABG Chloride ABG Glucose VBG pH Carboxyhemoglobin Sodium Potassium Chloride Carbon Dioxide BUN Creatinine Glucose POC Glucose 109 H 149 H 139 H Lactic Acid Calcium Phosphorus Magnesium Ferritin AST Ammonia Lactate Dehydrogenase C-Reactive Protein Total Protein Albumin Arterial Blood Glucose Arterial Blood Ionized Calcium Urine WBC (Auto) Vancomycin Trough 06/11/21 06/12/21 06/12/21 21:42 04:00 04:00 WBC 4.0 L RBC 3.50 L Hgb 9.4 L Hct 29.9 L MCV MCH 27 L MCHC 31 L RDW 15.3 H Plt Count 126 L Seg Neuts % (Manual) 88.0 H Lymphocytes % (Manual) Monocytes % (Manual) 12.0 H Nucleated RBC % Seg Neutrophils # Man Lymphocytes # (Manual) 0.0 L D-Dimer ABG pH POC ABG pCO2 POC ABG pO2 ABG pO2 ABG HCO3 ABG Base Excess ABG Hemoglobin ABG Oxyhemoglobin ABG Sodium ABG Potassium ABG Chloride ABG Glucose VBG pH Carboxyhemoglobin Sodium 149 H Potassium Chloride 114.1 H Carbon Dioxide BUN 37 H Creatinine Glucose 137 H POC Glucose 124 H Lactic Acid Calcium 8.0 L Phosphorus Magnesium Ferritin AST Ammonia Lactate Dehydrogenase C-Reactive Protein Total Protein Albumin Arterial Blood Glucose Arterial Blood Ionized Calcium Urine WBC (Auto) Vancomycin Trough 06/12/21 06/13/21 06/13/21 06:37 00:14 06:05 WBC 4.3 L RBC 3.39 L Hgb 9.2 L Hct 28.6 L MCV MCH 27 L MCHC RDW 15.3 H Plt Count 107 L Seg Neuts % (Manual) 77.0 H Lymphocytes % (Manual) 1.0 L Monocytes % (Manual) Nucleated RBC % 1.0 H Seg Neutrophils # Man Lymphocytes # (Manual) 0.0 L D-Dimer ABG pH POC ABG pCO2 POC ABG pO2 ABG pO2 ABG HCO3 ABG Base Excess ABG Hemoglobin ABG Oxyhemoglobin ABG Sodium ABG Potassium ABG Chloride ABG Glucose VBG pH Carboxyhemoglobin Sodium Potassium Chloride Carbon Dioxide BUN Creatinine Glucose POC Glucose 128 H 149 H Lactic Acid Calcium Phosphorus Magnesium Ferritin AST Ammonia Lactate Dehydrogenase C-Reactive Protein Total Protein Albumin Arterial Blood Glucose Arterial Blood Ionized Calcium Urine WBC (Auto) Vancomycin Trough 06/13/21 06/13/21 06/14/21 06:05 11:51 04:29 WBC 4.2 L RBC 3.21 L Hgb 8.7 L Hct 26.7 L MCV 83 L MCH 27 L MCHC RDW 15.3 H Plt Count 87 L Seg Neuts % (Manual) 96 H Lymphocytes % (Manual) 2 L Monocytes % (Manual) Nucleated RBC % Seg Neutrophils # Man Lymphocytes # (Manual) 0.0 L D-Dimer ABG pH POC ABG pCO2 POC ABG pO2 48.3 L ABG pO2 ABG HCO3 ABG Base Excess ABG Hemoglobin 10.7 L ABG Oxyhemoglobin 84.1 L ABG Sodium 145.5 H ABG Potassium ABG Chloride 116.0 H ABG Glucose VBG pH Carboxyhemoglobin Sodium 146 H Potassium 3.5 L Chloride 112.3 H Carbon Dioxide BUN 38 H Creatinine Glucose 112 H POC Glucose Lactic Acid Calcium 8.1 L Phosphorus Magnesium Ferritin AST Ammonia Lactate Dehydrogenase C-Reactive Protein Total Protein Albumin Arterial Blood Glucose Arterial Blood Ionized Calcium Urine WBC (Auto) Vancomycin Trough 06/14/21 06/14/21 06/14/21 04:29 06:17 23:51 WBC RBC Hgb Hct MCV MCH MCHC RDW Plt Count Seg Neuts % (Manual) Lymphocytes % (Manual) Monocytes % (Manual) Nucleated RBC % Seg Neutrophils # Man Lymphocytes # (Manual) D-Dimer ABG pH POC ABG pCO2 POC ABG pO2 ABG pO2 ABG HCO3 ABG Base Excess ABG Hemoglobin ABG Oxyhemoglobin ABG Sodium ABG Potassium ABG Chloride ABG Glucose VBG pH Carboxyhemoglobin Sodium 148 H Potassium Chloride 115.3 H Carbon Dioxide BUN 40 H Creatinine Glucose 124 H POC Glucose 106 H 135 H Lactic Acid Calcium 8.2 L Phosphorus Magnesium Ferritin AST Ammonia Lactate Dehydrogenase C-Reactive Protein Total Protein Albumin Arterial Blood Glucose Arterial Blood Ionized Calcium Urine WBC (Auto) Vancomycin Trough 06/15/21 06/15/21 06/15/21 05:23 05:53 05:53 WBC 3.8 L RBC 2.94 L Hgb 8.0 L Hct 24.0 L MCV 81 L MCH 27 L MCHC RDW 15.6 H Plt Count 87 L Seg Neuts % (Manual) 95.0 H Lymphocytes % (Manual) 1.0 L Monocytes % (Manual) Nucleated RBC % 1.0 H Seg Neutrophils # Man Lymphocytes # (Manual) 0.0 L D-Dimer ABG pH POC ABG pCO2 POC ABG pO2 ABG pO2 ABG HCO3 ABG Base Excess ABG Hemoglobin ABG Oxyhemoglobin ABG Sodium ABG Potassium ABG Chloride ABG Glucose VBG pH Carboxyhemoglobin Sodium Potassium Chloride 110.5 H Carbon Dioxide BUN 43 H Creatinine Glucose 143 H POC Glucose 134 H Lactic Acid Calcium 8.1 L Phosphorus 2.10 L D Magnesium Ferritin AST Ammonia Lactate Dehydrogenase C-Reactive Protein Total Protein Albumin Arterial Blood Glucose Arterial Blood Ionized Calcium Urine WBC (Auto) Vancomycin Trough 06/16/21 06/16/21 06/16/21 05:22 05:59 05:59 WBC 3.4 L RBC 3.34 L Hgb 9.0 L Hct 27.9 L MCV MCH 27 L MCHC RDW 15.5 H Plt Count 72 L Seg Neuts % (Manual) 97.0 H Lymphocytes % (Manual) Monocytes % (Manual) Nucleated RBC % Seg Neutrophils # Man Lymphocytes # (Manual) 0.0 L D-Dimer ABG pH POC ABG pCO2 POC ABG pO2 ABG pO2 ABG HCO3 ABG Base Excess ABG Hemoglobin ABG Oxyhemoglobin ABG Sodium ABG Potassium ABG Chloride ABG Glucose VBG pH Carboxyhemoglobin Sodium Potassium Chloride 108.8 H Carbon Dioxide BUN 53 H Creatinine 1.4 H Glucose 160 H POC Glucose 141 H Lactic Acid Calcium 8.1 L Phosphorus Magnesium Ferritin AST Ammonia Lactate Dehydrogenase C-Reactive Protein Total Protein Albumin Arterial Blood Glucose Arterial Blood Ionized Calcium Urine WBC (Auto) Vancomycin Trough 06/16/21 06/16/21 06/17/21 11:31 17:08 06:25 WBC 4.4 L RBC 3.14 L Hgb 8.5 L Hct 25.7 L MCV 82 L MCH 27 L MCHC RDW 15.7 H Plt Count 64 L Seg Neuts % (Manual) Lymphocytes % (Manual) Monocytes % (Manual) Nucleated RBC % Seg Neutrophils # Man Lymphocytes # (Manual) D-Dimer ABG pH POC ABG pCO2 POC ABG pO2 ABG pO2 ABG HCO3 ABG Base Excess ABG Hemoglobin ABG Oxyhemoglobin ABG Sodium ABG Potassium ABG Chloride ABG Glucose VBG pH Carboxyhemoglobin Sodium Potassium Chloride Carbon Dioxide BUN Creatinine Glucose POC Glucose 129 H 136 H Lactic Acid Calcium Phosphorus Magnesium Ferritin AST Ammonia Lactate Dehydrogenase C-Reactive Protein Total Protein Albumin Arterial Blood Glucose Arterial Blood Ionized Calcium Urine WBC (Auto) Vancomycin Trough 06/17/21 06:25 WBC RBC Hgb Hct MCV MCH MCHC RDW Plt Count Seg Neuts % (Manual) Lymphocytes % (Manual) Monocytes % (Manual) Nucleated RBC % Seg Neutrophils # Man Lymphocytes # (Manual) D-Dimer ABG pH POC ABG pCO2 POC ABG pO2 ABG pO2 ABG HCO3 ABG Base Excess ABG Hemoglobin ABG Oxyhemoglobin ABG Sodium ABG Potassium ABG Chloride ABG Glucose VBG pH Carboxyhemoglobin Sodium Potassium Chloride Carbon Dioxide BUN 62 H Creatinine Glucose 135 H POC Glucose Lactic Acid Calcium 7.8 L Phosphorus Magnesium Ferritin AST Ammonia Lactate Dehydrogenase C-Reactive Protein Total Protein Albumin Arterial Blood Glucose Arterial Blood Ionized Calcium Urine WBC (Auto) Vancomycin Trough Chest x-ray: report reviewed, image reviewed Additional Studies: CHEST 1 VIEW 06/17/2021 4:37 PM INDICATION / CLINICAL INFORMATION: ETT placement. COMPARISON: June 17, 2021 and abdominal radiograph dated June 04, 2021 FINDINGS: SUPPORT DEVICES: Interval placement of endotracheal tube with the tip terminating approximately 4.9 cm the helga. There is an enteric tube which terminates distal to the field of view and below the diaphragm. Unchanged positioning of a right PICC line. HEART / MEDIASTINUM: Stable. LUNGS / PLEURA: Redemonstrated diffuse airspace opacities and redemonstration of a cavitary process within the left lower lobe. No pneumothorax. ADDITIONAL FINDINGS: Several prominent loops of small bowel within the abdomen. IMPRESSION: 1. Endotracheal tube terminating 4.9 cm the helga. And enteric tube terminating distal to the field of view and below the diaphragm. 2. Otherwise no significant change. CHEST 1 VIEW 06/17/21 INDICATION / CLINICAL INFORMATION: shortness of breath. COMPARISON: 06/13/2021 FINDINGS: SUPPORT DEVICES: Interval placement of right-sided PICC line with tip terminating at the superior cavoatrial junction. HEART / MEDIASTINUM: No significant abnormality. LUNGS / PLEURA: Interval worsening in diffuse airspace disease bilaterally. No significant effusion. No pneumothorax. ADDITIONAL FINDINGS: No significant additional findings. IMPRESSION: 1. Interval worsening Allied health notes reviewed: nursing
--- NOTE | 2021-06-17 09:27 | Progress Note ---
Assessment and Plan Impression: * Acute kidney injury secondary to ATN likely related to COVID 19 * Acute hypoxic respiratory failure secondary to COVID 19 PNA * Azotemia * Hyperkalemia * Metabolic acidosis * Hypernatremia Plan: * creatinine is stable 1.2->1.4->1.2->1.1->1.2->1.3->1.3 > 1.4 > 1.3, on D5W for free water * Sodium slightly improved at 146->149->146->148->143 > 142 , continue free water as above, po hydration if able * off baclofen * Keep MAP>65 * Management of COVID 19 PNA to primary team/ID * Dose medications for renal function * AM labs * Renal diet * follow up lytes prn * Prognosis guarded Subjective Date of service: 06/17/21 Principal diagnosis: Acute hypoxemic resp failure; Pneumonia; PUI COVID-19 infection Interval history: Patient is currently on BiPAP with 90% FiO2. Oxygen saturation is 99%. TPN infusing. Objective - Vital Signs Vital signs: Vital Signs - 12hr 06/16/21 06/16/21 06/17/21 22:00 23:00 00:00 Temperature Pulse Rate 76 84 75 Pulse Rate [ From Monitor] Respiratory 20 22 20 Rate Blood Pressure 150/78 139/80 158/80 O2 Sat by Pulse 96 99 99 Oximetry 06/17/21 06/17/21 06/17/21 00:05 00:25 01:00 Temperature Pulse Rate 74 76 73 Pulse Rate [ From Monitor] Respiratory 22 22 Rate Blood Pressure 152/81 144/79 O2 Sat by Pulse 100 99 Oximetry 06/17/21 06/17/21 06/17/21 02:00 03:00 04:00 Temperature 98.2 F Pulse Rate 83 79 81 Pulse Rate [ 81 From Monitor] Respiratory 23 22 20 Rate Blood Pressure 145/78 144/81 137/81 O2 Sat by Pulse 98 99 99 Oximetry 06/17/21 06/17/21 06/17/21 04:15 05:00 06:00 Temperature Pulse Rate 79 75 86 Pulse Rate [ From Monitor] Respiratory 21 21 Rate Blood Pressure 146/80 148/84 O2 Sat by Pulse 99 97 Oximetry 06/17/21 06/17/21 07:00 07:34 Temperature 99.1 F Pulse Rate 79 Pulse Rate [ From Monitor] Respiratory 24 Rate Blood Pressure 147/79 O2 Sat by Pulse 99 Oximetry - General Appearance General appearance: well-developed, well-nourished, appears stated age EENT: PERRL, mucous membranes moist Neck: no JVD, no thyromegaly, no carotid bruit, supple Respiratory: Present: Ronchi (Few scattered rhonchi) Cardiology: regular, normal heart rate, S1S2, no murmurs Gastrointestinal: normal, normoactive bowel sounds Integumentary: no rash, other (No edema) - Lab 06/17/21 06:25 06/17/21 06:25 Most recent lab results ABG pH 7.408 (7.320-7.450) 06/13/21 11:51 ABG pCO2 29.0 mm Hg 05/30/21 22:32 ABG pO2 141.8 mm Hg (80.0-90.0) H 05/30/21 22:32 ABG HCO3 19.9 mmol/L (20.0-26.0) L 05/30/21 22:32 ABG O2 Saturation 84.9 (0-100) 06/13/21 11:51 Calcium 7.8 mg/dL (8.4-10.2) L 06/17/21 06:25 Phosphorus 3.50 mg/dL (2.5-4.5) D 06/17/21 06:25 Magnesium 2.00 mg/dL (1.7-2.3) 06/17/21 06:25 Medications & Allergies - Medications Allergies/Adverse Reactions: Allergies No Known Allergies Allergy (Unverified 02/12/17 15:47) Home Medications: Home Medications Medication Instructions Recorded Confirmed Last Taken Type No Known Home Medications [No 05/31/21 05/31/21 Unknown History Reported Home Medications] Active Medications: Generic Name Dose Route Start Last Admin Trade Name Freq PRN Reason Stop Dose Admin Acetaminophen 650 mg 06/15/21 21:13 Acetaminophen 650 Mg Rect Supp SD Q6H PRN Pain MILD(1-3)/Fever >100.5/LUCAS Albuterol/Ipratropium 1 ampul 06/07/21 20:00 06/17/21 08:46 Ipratropium/Albuterol Sulfate 3 Ml Ampul.Neb IH 1 ampul TIDRT MIKE Administration Lipase/Protease/Amylase 1 each 06/03/21 12:23 Lipase 10,500/Protease 25,000/Amylase 43,750 (Units) Dr Rodney FEEDTUBE PRN PRN For Clogged Feeding Tube Heparin Sodium (Porcine) 5,000 unit 05/24/21 06:00 06/17/21 06:17 Heparin 5,000 Unit/1 Ml Vial SUB-Q 5,000 unit Q8HR MIKE Administration Metronidazole 500 mg in 100 mls @ 100 mls/hr 06/08/21 13:00 06/17/21 06:15 Flagyl 500 Mg/100 Ml IV 100 mls/hr Q8H MIKE Administration Protocol Cefepime HCl 2 gm in 100 mls @ 200 mls/hr 06/08/21 23:08 06/17/21 06:16 Cefepime/Ns 2 Gm/100 Ml IV 200 mls/hr Q8HR MIKE Administration Protocol Amino Acids/Electrolytes/Dextrose 1,800 mls @ 75 mls/hr 06/16/21 20:00 06/16/21 22:20 Tpn Adult IV 06/17/21 19:59 75 mls/hr DAILY@2000 MIKE Administration Protocol Vancomycin HCl 1 gm in 250 mls @ 166.667 mls/hr 06/16/21 22:00 06/16/21 23:42 Vancomycin/Ns 1 Gm/250 Ml IV 166.667 mls/hr Q24H MIKE Administration Methylprednisolone Sodium Succinate 10 mg 06/16/21 10:00 06/16/21 22:22 Methylprednisolone Sod Succinate 40 Mg/1 Ml Inj IV 10 mg Q12HR MIKE Administration Morphine Sulfate 2 mg 05/23/21 22:01 06/14/21 00:20 Morphine 2 Mg/1 Ml Inj IV 2 mg Q4H PRN Administration Pain, Moderate (4-6) Ondansetron HCl 4 mg 06/04/21 13:41 06/09/21 22:05 Ondansetron 4 Mg/2 Ml Inj IV 4 mg Q4H PRN Administration Nausea And Vomiting Sodium Chloride 10 ml 05/23/21 22:01 06/15/21 22:15 Sodium Chloride 0.9% 10 Ml Flush Syringe IV 10 ml PRN PRN Administration LINE FLUSH
[2021-06-17] MEDS: methylPREDNISolone Sod Succinate 40 MG/1 ML INJ IV SCH (09:28)
[2021-06-17] MEDS: MORPHINE 2 MG/1 ML INJ IV PRN (10:01)
--- NOTE | 2021-06-17 11:01 | XRay Report ---
CHEST 1 VIEW INDICATION / CLINICAL INFORMATION: shortness of breath. COMPARISON: 06/13/2021 FINDINGS: SUPPORT DEVICES: Interval placement of right-sided PICC line with tip terminating at the superior cav oatrial junction. HEART / MEDIASTINUM: No significant abnormality. LUNGS / PLEURA: Interval worsening in diffuse airspace disease bilaterally. No significant effusion. No pneumothorax. ADDITIONAL FINDINGS: No significant additional findings. IMPRESSION: 1. Interval worsening Signer Name: Cornelius Hansen MD Signed: 06/17/2021 10:57 AM Workstation Name: [id number]
--- NOTE | 2021-06-17 13:08 | Progress Note ---
Assessment and Plan Cultures: SARS CoV2 PCR: Positive as outpatient. Negative here x 2 05/23/2021 blood culture: no growth 05/29/2021 blood culture no growth 05/30/2021 blood culture no growth 05/30/2021 urine culture [place] 05/31/2021 blood culture no growth 06/03/2021 blood culture no growth today A/P: 55/M with initially seen on 05/23/2021 due to bilateral pneumonia with positive Covid test outpatient but negative x2 inpatient noted with new fever and repeat CT chest shows bilateral basilar pneumonia with cavitation: #Sepsis: No fever since 06/04/2021. Likely secondary to bilateral pneumonia. #Bilateral pneumonia with cavitation: ? secondary to COVID-19, tested positive as outpatient, but negative here x 2. During the last week noted elevated procalcitonin from 0.3-->24 in the setting of resolving ANGELES. Also noted CRP from 5.2-->19. CT abdomen shows severe aspiration type pneumonia in both bases with a currently 30 lesion of 20 cm on the left lower lobe. #Acute hypoxic respiratory failure: On BiPAP. Likely due to pneumonia. VQ scan low probability for PE. #Recent ileus: Resolved. #Acute renal failure: Nephrology on board. Improving. #Hypernatremia: Per primary team/ renal improving #Tachycardia #Elevated ddimer: VQ low prob for PE Recs: -Taper off of steroid -Repeat procalcitonin -Start cefepime and metronidazole -Continue vancomycin -Follow up MRSA PCR. If negative can stop vancomycin and no need to discahrge with Bactrim. -Given cavitation with likely abscess will plan to treat with IV in house and discharge with PO antibiotics to complete 3 weeks. -Plan to discharge on Augmentin 875/125mg q12h and Bactrim DS q12 G. Aileen Ferguson MD [facility] O: [phone] F: [phone] Subjective Date of service: 06/17/21 Principal diagnosis: Acute hypoxemic resp failure; Pneumonia; PUI COVID-19 infection Interval history: Afebrile, white count 4.4. Imaging personally reviewed: Chest x-ray: Interval worsening. Objective - Exam Narrative Exam: General appearance: Alert on BiPAP Eyes: anicteric sclerae, moist conjunctivae; no lid-lag; PERRLA HENT: Normocephalic, Atraumatic; normal external ears, nares open, oropharynx limited Neck: supple, tracheal midline, no JVD Lungs: Rhonchi CV: RRR no murmur Abdomen: Soft, non-tender; no masses or hepatosplenomegaly Extremities: no edema, no cyanosis Skin: No rash. Psych: no agitated Neuro: alert follows commands - Constitutional Vitals: Vital Signs Temp Pulse Resp BP Pulse Ox 99.1 F 126 H 20 152/86 100 06/17/21 07:34 06/17/21 11:00 06/17/21 11:00 06/17/21 11:00 06/17/21 11:00 Temperature -Last 24 Hours Temperature 99.1 F Temperature 98.2 F Temperature 97.8 F Temperature 98.3 F - Labs CBC & Chem 7: 06/17/21 06:25 06/17/21 06:25 Labs: Abnormal lab results 06/16/21 06/17/21 06/17/21 Range/Units 17:08 06:25 06:25 WBC 4.4 L (4.5-11.0) K/mm3 RBC 3.14 L (3.65-5.03) M/mm3 Hgb 8.5 L (11.8-15.2) gm/dl Hct 25.7 L (35.5-45.6) % MCV 82 L (84-94) fl MCH 27 L (28-32) pg RDW 15.7 H (13.2-15.2) % Plt Count 64 L (140-440) K/mm3 BUN 62 H (9-20) mg/dL Glucose 135 H (75-100) mg/dL POC Glucose 136 H (70-105) mg/dL Calcium 7.8 L (8.4-10.2) mg/dL
[2021-06-17 16:15] LABS: Total Cells Counted 100
[2021-06-17 16:16] LABS: Band Neutrophils # (Manual) 0.1 K/mm3; Platelet Estimate Consistent w Auto; RBC Morphology Normal
[2021-06-17] MEDS ORDERED: SUCCINYLCHOLINE CHLORIDE 200 MG/10 ML INJ MDV ONE (16:49)
[2021-06-17] MEDS ORDERED: propofoL 200 MG/20 ML VIAL IV ONE ×2 (16:49→16:57)
[2021-06-17] MEDS ORDERED: SODIUM CHLORIDE 0.9% 1000 ML 1,000 ML ONE (16:57)
[2021-06-17] MEDS ORDERED: fentaNYL 100 MCG/2 ML INJ IV PRN (17:00)
[2021-06-17] MEDS ORDERED: LIP THERAPY VASELINE TP PRN (17:00)
[2021-06-17] MEDS ORDERED: fentaNYL DRIP Premix 2,000 MCG/100 ML BAG IV ONE (17:01)
[2021-06-17] MEDS: fentaNYL DRIP Premix 2,000 MCG/100 ML BAG IV SCH (17:17)
--- NOTE | 2021-06-17 17:48 | XRay Report ---
CHEST 1 VIEW 06/17/2021 4:37 PM INDICATION / CLINICAL INFORMATION: ETT placement. COMPARISON: June 17, 2021 and abdominal radiograph dated June 04, 2021 FINDINGS: SUPPORT DEVICES: Interval placement of endotracheal tube with the tip terminating approximately 4.9 c m the helga. There is an enteric tube which terminates distal to the field of view and below the mychal phragm. Unchanged positioning of a right PICC line. HEART / MEDIASTINUM: Stable. LUNGS / PLEURA: Redemonstrated diffuse airspace opacities and redemonstration of a cavitary process w ithin the left lower lobe. No pneumothorax. ADDITIONAL FINDINGS: Several prominent loops of small bowel within the abdomen. IMPRESSION: 1. Endotracheal tube terminating 4.9 cm the helga. And enteric tube terminating distal to the field of view and below the diaphragm. 2. Otherwise no significant change. Signer Name: Javi Briseno DO Signed: 06/17/2021 5:44 PM Workstation Name: [id number]
--- NOTE | 2021-06-17 17:49 | XRay Report ---
ABDOMEN 1 VIEW 06/17/2021 and June 04, 2021 INDICATION / CLINICAL INFORMATION: OG TUBE PLACEMENT. COMPARISON: Chest radiograph from earlier in the day FINDINGS: TUBES / LINES: There is an enteric tube which terminates within the stomach. BOWEL GAS PATTERN: Several gas-filled prominent loops of small bowel are seen throughout the abdomen. This does not appear significant change compared to June 04, 2021. FREE AIR / EXTRALUMINAL GAS: None seen. ADDITIONAL FINDINGS: Diffuse airspace opacities. IMPRESSION: 1. Enteric tube terminating within the stomach. 2. Otherwise no significant change. Signer Name: Javi Briseno DO Signed: 06/17/2021 5:44 PM Workstation Name: [id number]
[2021-06-17] MEDS ORDERED: MINERAL OIL/PETROLATUM, WHITE OPHTH OINT 3.5 GM OU PRN (18:00)
--- NOTE | 2021-06-17 19:00 | Event Note ---
Date: 06/17/21 (ICU Intubation) Called to IMCU for intubation of patient with impending respiratory failure. Donned PPE per protocol prior to patient contact. On arrival, patient obtunded with increased WOB. VS BP [134]/[83], P [127], SpO2 [63]% on FiO2 100% NIPPV. RT and RN at bedside. Preoxygenated with NIPPV already in place. Induction with [propofol] [150]mg IV and [succinylcholine] [100]mg IV. Easy mask ventilation with good chest rise however no improvement in SpO2. Easy, atraumatic intubation x 1 attempt with GS [4], thick secretions obscuring view of glottic opening. [8.0] oETT secured at [24]cm @ the lip. Placement confirmed with +CO2 color change and BLBS. Transported to ICU room and placed on vent per RT. Hypotensive after intubation requiring phenylephrine 500mcg IV bolus in divided doses. Post intubation VS BP [96]/[50], P [141], SpO2 [90]%. Granite Setter at bedside with orders for pressor support, CXR and sedation. Approx time: [1658] - [1726] Ai Mata MD Anesthesiologist
[2021-06-17] MEDS ORDERED: FAT EMULSIONS 20% IV SCH (20:00)
[2021-06-17] MEDS ORDERED: TOTAL PARENTERAL NUTRITION 1,800 ML IV SCH (20:00)
[2021-06-18] MEDS: CEFEPIME/NS 2 GM/100 ML 2 GM/100 ML BAG IV SCH ×4 (00:22→21:24)
[2021-06-18] MEDS: VANCOMYCIN/NS 1 GM/250 ML 1 GM/250 ML BAG IV SCH (00:26)
[2021-06-18] MEDS: HEPARIN 5,000 UNIT/1 ML VIAL SUB-Q SCH ×2 (00:28→06:10)
[2021-06-18] MEDS: SENNOSIDES/DOCUSATE SODIUM 8.6/50 MG TAB FEEDTUBE SCH ×3 (00:29→21:25)
[2021-06-18] MEDS: FAMOTIDINE 20 MG/2 ML INJ IV SCH ×3 (00:29→21:25)
[2021-06-18] MEDS: metroNIDAZOLE/NS 500 MG/100 ML 500 MG/100 ML BAG IV SCH ×3 (00:29→12:41)
[2021-06-18] MEDS: methylPREDNISolone Sod Succinate 40 MG/1 ML INJ IV SCH ×3 (00:29→21:25)
--- NOTE | 2021-06-18 04:44 | XRay Report ---
CHEST 1 VIEW 06/18/2021 2:32 AM INDICATION / CLINICAL INFORMATION: follow up respiratory failure. COMPARISON: 06/17/2021 FINDINGS: SUPPORT DEVICES: ET tube, NG tube and right PICC line again project in expected position HEART / MEDIASTINUM: No significant abnormality. LUNGS / PLEURA: Extensive bilateral airspace disease with cavitary process left lower lobe, unchanged . No pneumothorax. ADDITIONAL FINDINGS: No significant additional findings. IMPRESSION: 1. No significant interval change Signer Name: Soham Dodson MD Signed: 06/18/2021 4:39 AM Workstation Name: [id number]
--- NOTE | 2021-06-18 07:32 | Progress Note ---
Assessment and Plan Assessment and plan: #Acute hypoxic respiratory failure #Moderate ARDS #Respiratory acidosis -Intubated on 06/27 -Vent settings: A/C tidal volume 400, rate 300, PEEP 10, FiO2 60% -P/F ratio 131 -continue Solu-Medrol -Pulmonary consulted, recs appreciated -patient may need bronchoscopy to evaluate abscess #COVID-19 pneumonia #Left lower lobe abscess -Seen on CT abdomen pelvis and chest: Approximately 5 x 6 cm -Continue vancomycin, cefepime and Flagyl -Will require antibiotic treatment for 3 weeks total #Severe sepsis -Febrile, continue Tylenol -Repeat blood cultures ordered 06/17 -Likely source PNA/abscess #ANGELES -SCr steadily increased over the last few days, now 1.8 -repeat UA and urine electrolytes -appreciate Nephrology assistance #Hyperkalemia -K 6.0 -medical management -continue to monitor #Nutrition -TPN discontinued, will resume tube feeds -Nutrition following, assistance appreciated #Discharge planning -Pending respiratory status Resolved problems: #Hypernatremia #Acute encephalopathy #Ileus #Lactic acidosis Disposition Plan: Continue medical care Total Time Spent with Patient (Minutes): 40 minutes History Interval history: Patient yesterday evening intubated. Currently intubated with minimal sedation. Hospitalist Physical - Physical exam Narrative exam: GENERAL: Thin male. Intubated and mechanically ventilated. HEENT: ETT and CURT in place CHEST/LUNGS: Coarse breath sounds bilaterally. No use of assessory muscles of breathing. HEART/CARDIOVASCULAR: Mildly tachycardic. No murmur, rubs or gallops appreciated. ABDOMEN: +BS. ND. EXTREMITIES: No cyanosis, clubbing or edema. - Constitutional Vitals: Temp Pulse Resp BP Pulse Ox 98.8 F 101 H 25 H 134/77 96 06/18/21 04:00 06/18/21 06:01 06/18/21 06:01 06/18/21 06:01 06/18/21 06:01 General appearance: Present: no acute distress, cachectic HEART Score - HEART Score EKG: Non-specific Age: 45-65 Risk factors: 1-2 risk factors Troponin: Troponin T < 0.010 ng/mL (0.00-0.029) 05/23/21 18:48 - Critical Actions Critical Actions: 0-3 pts:0.9-1.7%risk of adverse cardiac event.Candidate for discharge Results - Labs CBC & Chem 7: 06/18/21 Unknown 06/18/21 Unknown Labs: Laboratory Last Values WBC 4.4 K/mm3 (4.5-11.0) L 06/17/21 06:25 RBC 3.14 M/mm3 (3.65-5.03) L 06/17/21 06:25 Hgb 8.5 gm/dl (11.8-15.2) L 06/17/21 06:25 Hct 25.7 % (35.5-45.6) L 06/17/21 06:25 MCV 82 fl (84-94) L 06/17/21 06:25 MCH 27 pg (28-32) L 06/17/21 06:25 MCHC 33 % (32-34) 06/17/21 06:25 RDW 15.7 % (13.2-15.2) H 06/17/21 06:25 Plt Count 64 K/mm3 (140-440) L 06/17/21 06:25 Lymph % (Auto) Hydro Pneumatic Tester 06/01/21 07:10 Titus % (Auto) Hydro Pneumatic Tester 06/01/21 07:10 Eos % (Auto) Hydro Pneumatic Tester 06/01/21 07:10 Baso % (Auto) Hydro Pneumatic Tester 06/01/21 07:10 Lymph # (Auto) Hydro Pneumatic Tester 06/01/21 07:10 Titus # (Auto) Hydro Pneumatic Tester 06/01/21 07:10 Eos # (Auto) Hydro Pneumatic Tester 06/01/21 07:10 Baso # (Auto) Hydro Pneumatic Tester 06/01/21 07:10 Add Manual Diff Complete 06/17/21 06:25 Total Counted 100 06/17/21 06:25 Seg Neutrophils % Hydro Pneumatic Tester 06/17/21 06:25 Seg Neuts % (Manual) 95.0 % (40.0-70.0) H 06/17/21 06:25 Band Neutrophils % 2.0 % 06/17/21 06:25 Lymphocytes % (Manual) 1.0 % (13.4-35.0) L 06/15/21 05:53 Reactive Lymphs % (Man) 1.0 % 06/01/21 07:10 Monocytes % (Manual) 3.0 % (0.0-7.3) 06/17/21 06:25 Myelocytes % 1.0 % 06/13/21 06:05 Nucleated RBC % Not Reportable 06/17/21 06:25 Seg Neutrophils # Hydro Pneumatic Tester 06/01/21 07:10 Seg Neutrophils # Man 4.2 K/mm3 (1.8-7.7) 06/17/21 06:25 Band Neutrophils # 0.1 K/mm3 06/17/21 06:25 Lymphocytes # (Manual) 0.0 K/mm3 (1.2-5.4) L 06/17/21 06:25 Abs React Lymphs (Man) 0.0 K/mm3 06/17/21 06:25 Monocytes # (Manual) 0.1 K/mm3 (0.0-0.8) 06/17/21 06:25 Eosinophils # (Manual) 0.0 K/mm3 (0.0-0.4) 06/17/21 06:25 Basophils # (Manual) 0.0 K/mm3 (0.0-0.1) 06/17/21 06:25 Metamyelocytes # 0.0 K/mm3 06/17/21 06:25 Myelocytes # 0.0 K/mm3 06/17/21 06:25 Promyelocytes # 0.0 K/mm3 06/17/21 06:25 Blast Cells # 0.0 K/mm3 06/17/21 06:25 WBC Morphology Not Reportable 06/17/21 06:25 Hypersegmented Neuts Not Reportable 06/17/21 06:25 Hyposegmented Neuts Not Reportable 06/17/21 06:25 Hypogranular Neuts Not Reportable 06/17/21 06:25 Smudge Cells Not Reportable 06/17/21 06:25 Toxic Granulation Not Reportable 06/17/21 06:25 Toxic Vacuolation Not Reportable 06/17/21 06:25 Dohle Bodies Not Reportable 06/17/21 06:25 Pelger-Huet Anomaly Not Reportable 06/17/21 06:25 Kaci Rods Not Reportable 06/17/21 06:25 Platelet Estimate Consistent w auto 06/17/21 06:25 Clumped Platelets Not Reportable 06/17/21 06:25 Plt Clumps, EDTA Not Reportable 06/17/21 06:25 Large Platelets Not Reportable 06/17/21 06:25 Giant Platelets Not Reportable 06/17/21 06:25 Platelet Satelliting Not Reportable 06/17/21 06:25 Plt Morphology Comment Not Reportable 06/17/21 06:25 RBC Morphology Normal 06/17/21 06:25 Dimorphic RBCs Not Reportable 06/17/21 06:25 Polychromasia Not Reportable 06/17/21 06:25 Hypochromasia Not Reportable 06/17/21 06:25 Poikilocytosis Not Reportable 06/17/21 06:25 Anisocytosis Not Reportable 06/17/21 06:25 Microcytosis Not Reportable 06/17/21 06:25 Macrocytosis Not Reportable 06/17/21 06:25 Spherocytes Not Reportable 06/17/21 06:25 Pappenheimer Bodies Not Reportable 06/17/21 06:25 Sickle Cells Not Reportable 06/17/21 06:25 Target Cells Not Reportable 06/17/21 06:25 Tear Drop Cells Not Reportable 06/17/21 06:25 Ovalocytes Not Reportable 06/17/21 06:25 Helmet Cells Not Reportable 06/17/21 06:25 [place]-Regent Bodies Not Reportable 06/17/21 06:25 [place] Rings Not Reportable 06/17/21 06:25 [place] Cells Not Reportable 06/17/21 06:25 Bite Cells Not Reportable 06/17/21 06:25 Crenated Cell Not Reportable 06/17/21 06:25 Elliptocytes Not Reportable 06/17/21 06:25 Acanthocytes (Spur) Not Reportable 06/17/21 06:25 Rouleaux Not Reportable 06/17/21 06:25 Hemoglobin C Crystals Not Reportable 06/17/21 06:25 Schistocytes Not Reportable 06/17/21 06:25 Malaria parasites Not Reportable 06/17/21 06:25 Dick Bodies Not Reportable 06/17/21 06:25 Hem Pathologist Commnt No 06/17/21 06:25 D-Dimer 3584.01 ng/mlDDU (0-234) H 05/27/21 08:09 ABG pH 7.184 (7.320-7.450) L 06/17/21 18:38 POC ABG pCO2 65.8 mmHg (32.0-48.0) H 06/17/21 18:38 ABG pCO2 29.0 mm Hg 05/30/21 22:32 POC ABG pO2 130.5 mmHg (83-108) H 06/17/21 18:38 ABG pO2 141.8 mm Hg (80.0-90.0) H 05/30/21 22:32 POC ABG HCO3 24.2 06/17/21 18:38 ABG HCO3 19.9 mmol/L (20.0-26.0) L 05/30/21 22:32 ABG O2 Saturation 97.5 (0-100) 06/17/21 18:38 ABG O2 Content 19.9 (0.0-44) 05/30/21 22:32 POC ABG Base Excess -4.6 06/17/21 18:38 ABG Base Excess -2.7 mmol/L (-2.0-3.0) L 05/30/21 22:32 ABG Hemoglobin 10.2 (12.0-17.5) L 06/17/21 18:38 ABG Oxyhemoglobin 96.4 (94-98) 06/17/21 18:38 ABG Carboxyhemoglobin 1.1 % (0.0-5.0) 05/30/21 22:32 ABG Methemoglobin 0.3 (0.0-1.5) 06/17/21 18:38 ABG Sodium 140.4 mmol/L (136.0-145.0) 06/17/21 18:38 ABG Potassium 4.1 mmol/L (3.40-4.50) 06/17/21 18:38 ABG Chloride 108.0 mmol/L (98-107) H 06/17/21 18:38 ABG Glucose 229 mg/dL (65-95) H 06/17/21 18:38 VBG pH 7.254 (7.320-7.420) L 05/24/21 02:09 Oxyhemoglobin 97.1 % (95.0-99.0) 05/30/21 22: Carboxyhemoglobin 0.8 (0.5-1.5) 06/17/21 18:38 FiO2 70 % 05/30/21 22:32 FiO2 % 100.0 06/17/21 18:38 Sodium 142 mmol/L (137-145) 06/17/21 06:25 Potassium 3.8 mmol/L (3.6-5.0) 06/17/21 06:25 Chloride 106.5 mmol/L (98-107) 06/17/21 06:25 Carbon Dioxide 27 mmol/L (22-30) 06/17/21 06:25 Anion Gap 12 mmol/L 06/17/21 06:25 BUN 62 mg/dL (9-20) H 06/17/21 06:25 Creatinine 1.3 mg/dL (0.8-1.3) 06/17/21 06:25 Estimated GFR > 60 ml/min 06/17/21 06:25 BUN/Creatinine Ratio 48 % 06/17/21 06:25 Glucose 135 mg/dL (75-100) H 06/17/21 06:25 POC Glucose 152 mg/dL (70-105) H 06/18/21 05:15 Lactic Acid 1.20 mmol/L (0.7-2.0) 06/06/21 00:04 Calcium 7.8 mg/dL (8.4-10.2) L 06/17/21 06:25 Phosphorus 3.50 mg/dL (2.5-4.5) D 06/17/21 06:25 Magnesium 2.00 mg/dL (1.7-2.3) 06/17/21 06:25 Ferritin 2742.0 ng/mL (30.0-300.0) H 05/27/21 08:09 Total Bilirubin 0.40 mg/dL (0.1-1.2) 06/10/21 01:52 AST 55 units/L (5-40) H 06/10/21 01:52 ALT 21 units/L (7-56) 06/10/21 01:52 Alkaline Phosphatase 88 units/L (35-129) 06/10/21 01:52 Ammonia 22.0 umol/L (25-60) L 05/23/21 18:48 Lactate Dehydrogenase 642 units/L (91-180) H 05/27/21 08:09 Troponin T < 0.010 ng/mL (0.00-0.029) 05/23/21 18:48 C-Reactive Protein 4.10 mg/dL (0.00-1.30) H 06/09/21 05:51 Total Protein 5.6 g/dL (6.3-8.2) L 06/10/21 01:52 Albumin 1.9 g/dL (3.9-5) L 06/10/21 01:52 Albumin/Globulin Ratio 0.5 % 06/10/21 01:52 Procalcitonin 7.52 ng/mL (<0.15) 06/09/21 05:51 TSH 1.150 mlU/mL (0.270-4.200) 05/23/21 18:48 Arterial Blood Glucose 229 mg/dL (65-95) H 06/17/21 18:38 Arterial Blood Ionized Calcium 4.5 mg/dL (4.6-5.3) L 05/29/21 17:58 Urine Color Eli (Yellow) 05/30/21 01:00 Urine Turbidity Cloudy (Clear) 05/30/21 01:00 Urine pH 5.0 (5.0-7.0) 05/30/21 01:00 Ur Specific [place] 1.019 (1.003-1.030) 05/30/21 01:00 Urine Protein 100 mg/dl mg/dL (Negative) 05/30/21 01:00 Urine Glucose (UA) Neg mg/dL (Negative) 05/30/21 01:00 Urine Ketones Neg mg/dL (Negative) 05/30/21 01:00 Urine Blood Mod (Negative) 05/30/21 01:00 Urine Nitrite Neg (Negative) 05/30/21 01:00 Urine Bilirubin Neg (Negative) 05/30/21 01:00 Urine Urobilinogen 4.0 mg/dL (<2.0) 05/30/21 01:00 Ur Leukocyte Esterase Neg (Negative) 05/30/21 01:00 Urine WBC (Auto) 12.0 /HPF (0.0-6.0) H 05/30/21 01:00 Urine RBC (Auto) 21.0 /HPF (0.0-6.0) 05/30/21 01:00 U Epithel Cells (Auto) 2.0 /HPF (0-13.0) 05/30/21 01:00 Uric Acid Crystals Few 05/30/21 01:00 Urine Mucus Few /HPF 05/30/21 01:00 Urine Yeast (Budding) 2+ /HPF 05/30/21 01:00 Nasal Screen MRSA (PCR) Negative (Negative) 06/15/21 Unknown Vancomycin Trough 18.1 ug/mL (5.0-20.0) 06/16/21 22:30 Plasma/Serum Alcohol < 0.01 % (0-0.07) 05/23/21 18:48 Proteinase 3 (PR3) Ab <1.0 AI (<1.0) 05/24/21 20:57 Myeloperoxidase Ab <1.0 AI (<1.0) 05/24/21 20:57 Complement C3 108 mg/dL (82-185) 05/24/21 20:57 Complement C4 29 mg/dL (15-53) 05/24/21 20:57 Coronavirus (PCR) Negative (Negative) 05/26/21 08:41 Blood Type A POSITIVE 05/29/21 08:15 Antibody Screen Negative 05/29/21 08:15 Microbiology: Microbiology 06/17/21 13:15 Peripheral/Venous Blood Culture - Preliminary Culture in Progress 06/17/21 13:48 Peripheral/Venous Blood Culture - Preliminary Culture in Progress Heart/IV: Voiding Method Condom Catheter Active Medications - Current Medications Current Medications: Generic Name Dose Route Start Last Admin Trade Name Freq PRN Reason Stop Dose Admin Acetaminophen 650 mg 06/15/21 21:13 06/17/21 13:21 Acetaminophen 650 Mg Rect Supp HI 650 mg Q6H PRN Administration Pain MILD(1-3)/Fever >100.5/LUCAS Albuterol/Ipratropium 1 ampul 06/07/21 20:00 06/17/21 14:08 Ipratropium/Albuterol Sulfate 3 Ml Ampul.Neb IH 1 ampul TIDRT MIKE Administration Lipase/Protease/Amylase 1 each 06/03/21 12:23 Lipase 10,500/Protease 25,000/Amylase 43,750 (Units) Cap FEEDTUBE PRN PRN For Clogged Feeding Tube Famotidine 20 mg 06/17/21 22:00 06/18/21 00:29 Famotidine 20 Mg/2 Ml Inj IV 20 mg BID MIKE Administration Fentanyl 50 mcg 06/17/21 17:00 Fentanyl 100 Mcg/2 Ml Inj IV Q10MIN PRN ANALGESIA Heparin Sodium (Porcine) 5,000 unit 05/24/21 06:00 06/18/21 06:10 Heparin 5,000 Unit/1 Ml Vial SUB-Q 5,000 unit Q8HR MIKE Administration Hydrophilic Ointment 1 applic 06/17/21 17:00 Lip Therapy Vaseline TP Q2HR PRN Dry Lips Metronidazole 500 mg in 100 mls @ 100 mls/hr 06/08/21 13:00 06/18/21 06:09 Flagyl 500 Mg/100 Ml IV 100 mls/hr Q8H MIKE Administration Protocol Cefepime HCl 2 gm in 100 mls @ 200 mls/hr 06/08/21 23:08 06/18/21 06:09 Cefepime/Ns 2 Gm/100 Ml IV 200 mls/hr Q8HR MIKE Administration Protocol Vancomycin HCl 1 gm in 250 mls @ 166.667 mls/hr 06/16/21 22:00 06/18/21 00:26 Vancomycin/Ns 1 Gm/250 Ml IV 166.667 mls/hr Q24H MIKE Administration Amino Acids/Electrolytes/Dextrose 1,800 mls @ 75 mls/hr 06/17/21 20:00 06/18/21 00:38 Tpn Adult IV 06/18/21 19:59 75 mls/hr DAILY@1999 [facility] Administration Protocol Fat Emulsion Intravenous 125 mls @ 10.4 mls/hr 06/17/21 20:00 06/18/21 00:14 Intralipid 20% IV 06/18/21 08:00 10.4 mls/hr DAILY@1999 [facility] Administration Fentanyl Citrate 2,000 mcg in 100 mls @ 3.725 mls/hr 06/17/21 17:00 06/17/21 17:17 Fentanyl Drip Premix IV 1 mcg/kg/hr TITR MIKE 3.725 mls/hr Administration Protocol 1 MCG/KG/HR Methylprednisolone Sodium Succinate 10 mg 06/16/21 10:00 06/18/21 00:29 Methylprednisolone Sod Succinate 40 Mg/1 Ml Inj IV 10 mg Q12HR MIKE Administration Morphine Sulfate 2 mg 05/23/21 22:01 06/17/21 10:01 Morphine 2 Mg/1 Ml Inj IV 2 mg Q4H PRN Administration Pain, Moderate (4-6) Multi-Ingred Cream/Lotion/Oil/Oint 1 applic 06/17/21 18:00 Mineral Oil/Petrolatum, White Ophth Oint 3.5 Gm OU Q4HR PRN Dry Eye(s) Ondansetron HCl 4 mg 06/04/21 13:41 06/09/21 22:05 Ondansetron 4 Mg/2 Ml Inj IV 4 mg Q4H PRN Administration Nausea And Vomiting Senna/Docusate Sodium 1 tab 06/17/21 22:00 06/18/21 00:29 Sennosides/Docusate Sodium 8.6/50 Mg Tab FEEDTUBE 1 tab BID MIKE Administration Sodium Chloride 10 ml 05/23/21 22:01 06/15/21 22:15 Sodium Chloride 0.9% 10 Ml Flush Syringe IV 10 ml PRN PRN Administration LINE FLUSH Nutrition/Malnutrition Assess - Dietary Evaluation Nutrition/Malnutrition Findings: Nutrition Notes Start: 05/25/21 09:33 Freq: Status: Active Protocol: Document 06/17/21 12:10 MONTEZ (Rec: 06/17/21 12:39 MONTEZ [id number]) Nutrition Notes Need for Assessment generated from: MD Order Initial or Follow up Reassessment Current Diagnosis Respiratory Failure Other Pertinent Diagnosis Accute Kidney Injury, Pneumonia, PUI Covid-19. Current Diet TPN; via PICC, continuous at 75 ml/hr (since 06/14). Labs/Tests 06/17: BUN 62, Glu 135, Phos 3 .5, Ca 7.8, Platelets 64. Pertinent Medications 06/17: Nutritionally unremarkable. Height 5 ft 11 in Weight 74.5 kg [place] Body Weight (kg) 78.18 BMI 22.8 Weight Status Appropriate Subjective/Other Information Day 4 PPN. Pt remains on bipap . No BM per chart since 06/09. From total energy provided via TPN: CHO 43.67%, AA 30.81%, FA 25.51%. Percent of energy/protein needs met: 52.6% (EER= 1,863 Kcal/day)/97 .4% (ProER= 312-376 Kcal/day). Burn Absent Trauma Absent GI Symptoms Constipation Food Allergy No Skin Integrity/Comment Integumentary; clear, warm dry . Current % PO Other Minimum of two criteria No physical signs of malnutrition #2 Nutrition Diagnosis No nutrition diagnosis at this time Comments: Not ongoing report on Integumentary concerns As per progress notes 06/15 &06/16. Diagnosis Progress(for reassessment Improved documentation) #1 Nutrition Diagnosis Inadequate oral intake Comments: Nutritional supplement beverage ordered 06/03: TF ordered 06/09: diet advanced to mechanical soft, thin liquids. Tolerating well 06/14 d/t continuous Bipap requiring TPN 06/16 TPN continues 06/17 TPN continues Etiology acute illness As Evidenced by Signs and Symptoms PO intake 0% Diagnosis Progress(for reassessment Worsened documentation) Is patient on ventilator? No Is Patient Ambulatory and/or Out of Bed No REE-([facility]-confined to bed) 1926.936 Kcal/Kg value to use for calculation 25 Approximate Energy Requirements Using 1863 kcal/Kg Calculation Used for Recommendations Kcal/kg Additional Notes protein needs: 1.0-1.2 g/Kg/ day; 78-94 gr/day; 312-376 Kcal/day (from IBW). fluid needs: 1.0 ml/kcal, or as per MD. Nutrition Intervention Change Diet Order: Continue TPN, continuous @ 75 ml/hr. Nutrition Support: TPN via PICC at 75 ml/hr. 882 mOsm, AA 4.2%, Dex 7.0%, Na 50 mEq, K 60 mEq, Ca 0 mEq, Phos 15 mmol, Mg 8 mEq, Cl/CO2 0/ 100%. Mvit 10 ml, Thiamine 0.0 mg (day 4), Trace Element ( MTE-5) 1.0 ml. Fat 27.7 g/day, 125 ml @ 10.4 ml/hr/12, repeat M, W, F. Kcal 980 Protein (gm) 76 Carbohydrates (gm) 126 Fat (gm) 28 Fluid (mL) 1,800 Fiber (gm) 0 % RDI: 52.6% Kcal, 97.4% protein Goal #1 Maintain body weight within +/ -3% of current BWt during LOS. Goal #2 Reach and maintain acceptable chemistry lab values during LOS. Follow-Up By: 06/18/21 Additional Comments Continue monitoring for adverse reactions to lipid introduction in TPN, Hydration , and BM.
[2021-06-18 09:20] LABS: Mean Corpuscular HGB Conc 33 % (32-34); Mean Corpuscular Volume 88 fl (84-94); Platelet Count 60 K/mm3 (140-440); Red Blood Count 2.72 M/mm3 (3.65-5.03); Red Cell Distribution Width 17.2 % (13.2-15.2)
[2021-06-18 09:52] LABS: Albumin 1.4 g/dL (3.9-5); BUN/Creatinine Ratio 44; Blood Urea Nitrogen 80 mg/dL (9-20); Calcium 6.9 mg/dL (8.4-10.2); Hemolysis Index 15
--- NOTE | 2021-06-18 09:58 | Progress Note ---
Assessment and Plan Impression: * Acute kidney injury secondary to ATN likely related to COVID 19 * Acute hypoxic respiratory failure secondary to COVID 19 PNA * Azotemia * Hyperkalemia * Metabolic acidosis * Hypernatremia Plan: * creatinine is stable 1.2->1.4->1.2->1.1->1.2->1.3->1.3 > 1.4 > 1.3> 1.8 * Sodium slightly improved at 146->149->146->148->143 > 142 , continue free water as above, po hydration if able * off baclofen * Keep MAP>65 * Management of COVID 19 PNA to primary team/ID * Dose medications for renal function * AM labs * Renal diet * follow up lytes prn * Prognosis guarded * His renal function seems to be getting worse. Shall check a UA as well as a fractional excretion of sodium. Check bladder scan as well. Gentle IV hydration. * Medical treatment for hyperkalemia. Discussed with pharmacy. His TPN has been discontinued. He will be starting on tube feeding Subjective Date of service: 06/18/21 Principal diagnosis: Acute hypoxemic resp failure; Pneumonia; PUI COVID-19 infec tion Interval history: Overnight events noted. Patient is currently on the ventilator. Now on 60% FiO2. Oxygen saturation is 96%. Condom catheter in place. Objective - Vital Signs Vital signs: Vital Signs - 12hr 06/17/21 06/17/21 06/17/21 22:00 22:01 23:01 Temperature Pulse Rate 111 H 105 H Pulse Rate [ 102 H From Monitor] Respiratory 20 15 16 Rate Blood Pressure 116/65 110/60 O2 Sat by Pulse 97 100 100 Oximetry 06/18/21 06/18/21 06/18/21 00:00 00:01 01:01 Temperature 98.8 F Pulse Rate 101 H 100 H Pulse Rate [ From Monitor] Respiratory 28 H 25 H Rate Blood Pressure 122/74 123/70 O2 Sat by Pulse 100 100 Oximetry 06/18/21 06/18/21 06/18/21 02:00 02:01 03:01 Temperature Pulse Rate 95 H 91 H Pulse Rate [ 102 H From Monitor] Respiratory 20 30 H 30 H Rate Blood Pressure 125/69 128/69 O2 Sat by Pulse 97 100 100 Oximetry 06/18/21 06/18/21 06/18/21 04:00 04:01 05:01 Temperature 98.8 F Pulse Rate 97 H 98 H Pulse Rate [ From Monitor] Respiratory 29 H 23 Rate Blood Pressure 129/76 127/70 O2 Sat by Pulse 100 97 Oximetry 06/18/21 06/18/21 06/18/21 06:00 06:01 07:01 Temperature Pulse Rate 101 H 101 H Pulse Rate [ 102 H From Monitor] Respiratory 20 25 H 22 Rate Blood Pressure 134/77 127/71 O2 Sat by Pulse 97 96 95 Oximetry 06/18/21 06/18/21 06/18/21 08:00 08:01 08:07 Temperature 98.7 F Pulse Rate 107 H 107 H Pulse Rate [ From Monitor] Respiratory 25 H Rate Blood Pressure 126/70 O2 Sat by Pulse 97 Oximetry 06/18/21 06/18/21 06/18/21 09:01 09:45 09:54 Temperature Pulse Rate 109 H 109 H Pulse Rate [ From Monitor] Respiratory 31 H Rate Blood Pressure 134/71 134/71 O2 Sat by Pulse 97 97 97 Oximetry - General Appearance General appearance: well-developed, well-nourished, appears stated age, intubated EENT: PERRL, mucous membranes moist Neck: no JVD, no thyromegaly, no carotid bruit, supple Respiratory: Present: Ronchi (Few scattered rhonchi) Cardiology: regular, normal heart rate Gastrointestinal: normal, normoactive bowel sounds Integumentary: other (No edema) - Lab 06/18/21 Unknown 06/18/21 Unknown Most recent lab results ABG pH 7.184 (7.320-7.450) L 06/17/21 18:38 ABG pCO2 29.0 mm Hg 05/30/21 22:32 ABG pO2 141.8 mm Hg (80.0-90.0) H 05/30/21 22:32 ABG HCO3 19.9 mmol/L (20.0-26.0) L 05/30/21 22:32 ABG O2 Saturation 97.5 (0-100) 06/17/21 18:38 Calcium 6.9 mg/dL (8.4-10.2) L 06/18/21 Unknown Phosphorus 3.50 mg/dL (2.5-4.5) D 06/17/21 06:25 Magnesium 2.00 mg/dL (1.7-2.3) 06/17/21 06:25 Medications & Allergies - Medications Allergies/Adverse Reactions: Allergies No Known Allergies Allergy (Unverified 02/12/17 15:47) Home Medications: Home Medications Medication Instructions Recorded Confirmed Last Taken Type No Known Home Medications [No 05/31/21 05/31/21 Unknown History Reported Home Medications] Active Medications: Generic Name Dose Route Start Last Admin Trade Name Freq PRN Reason Stop Dose Admin Acetaminophen 650 mg 06/15/21 21:13 06/17/21 13:21 Acetaminophen 650 Mg Rect Supp RI 650 mg Q6H PRN Administration Pain MILD(1-3)/Fever >100.5/LUCAS Albuterol/Ipratropium 1 ampul 06/07/21 20:00 06/17/21 14:08 Ipratropium/Albuterol Sulfate 3 Ml Ampul.Neb IH 1 ampul TIDRT MIKE Administration Lipase/Protease/Amylase 1 each 06/03/21 12:23 Lipase 10,500/Protease 25,000/Amylase 43,750 (Units) Dr Rodney FEEDTUBE PRN PRN For Clogged Feeding Tube Famotidine 20 mg 06/17/21 22:00 06/18/21 00:29 Famotidine 20 Mg/2 Ml Inj IV 20 mg BID MIKE Administration Fentanyl 50 mcg 06/17/21 17:00 Fentanyl 100 Mcg/2 Ml Inj IV Q10MIN PRN ANALGESIA Heparin Sodium (Porcine) 5,000 unit 05/24/21 06:00 06/18/21 06:10 Heparin 5,000 Unit/1 Ml Vial SUB-Q 5,000 unit Q8HR MIKE Administration Hydrophilic Ointment 1 applic 06/17/21 17:00 Lip Therapy Vaseline TP Q2HR PRN Dry Lips Metronidazole 500 mg in 100 mls @ 100 mls/hr 06/08/21 13:00 06/18/21 06:09 Flagyl 500 Mg/100 Ml IV 100 mls/hr Q8H MIKE Administration Protocol Cefepime HCl 2 gm in 100 mls @ 200 mls/hr 06/08/21 23:08 06/18/21 06:09 Cefepime/Ns 2 Gm/100 Ml IV 200 mls/hr Q8HR MIKE Administration Protocol Amino Acids/Electrolytes/Dextrose 1,800 mls @ 75 mls/hr 06/17/21 20:00 06/18/21 00:38 Tpn Adult IV 06/18/21 19:59 75 mls/hr DAILY@1999 [facility] Administration Protocol Fentanyl Citrate 2,000 mcg in 100 mls @ 3.725 mls/hr 06/17/21 17:00 06/17/21 17:17 Fentanyl Drip Premix IV 1 mcg/kg/hr TITR MIKE 3.725 mls/hr Administration Protocol 1 MCG/KG/HR Methylprednisolone Sodium Succinate 10 mg 06/16/21 10:00 06/18/21 00:29 Methylprednisolone Sod Succinate 40 Mg/1 Ml Inj IV 10 mg Q12HR MIKE Administration Morphine Sulfate 2 mg 05/23/21 22:01 06/17/21 10:01 Morphine 2 Mg/1 Ml Inj IV 2 mg Q4H PRN Administration Pain, Moderate (4-6) Multi-Ingred Cream/Lotion/Oil/Oint 1 applic 06/17/21 18:00 Mineral Oil/Petrolatum, White Ophth Oint 3.5 Gm OU Q4HR PRN Dry Eye(s) Ondansetron HCl 4 mg 06/04/21 13:41 06/09/21 22:05 Ondansetron 4 Mg/2 Ml Inj IV 4 mg Q4H PRN Administration Nausea And Vomiting Senna/Docusate Sodium 1 tab 06/17/21 22:00 06/18/21 00:29 Sennosides/Docusate Sodium 8.6/50 Mg Tab FEEDTUBE 1 tab BID IMKE Administration Sodium Chloride 10 ml 05/23/21 22:01 06/15/21 22:15 Sodium Chloride 0.9% 10 Ml Flush Syringe IV 10 ml PRN PRN Administration LINE FLUSH
[2021-06-18 10:19] LABS: Alanine Aminotransferase < 5 units/L (7-56)
[2021-06-18] MEDS ORDERED: LIPASE 10,500/PROTEASE 25,000/AMYLASE 43,750 (UNITS) DR CAP FEEDTUBE PRN (12:21)
[2021-06-18] MEDS ORDERED: SIMPLE SYRUP 15 ML FEEDTUBE PRN ×2 (12:21)
[2021-06-18] MEDS ORDERED: SODIUM BICARBONATE 325 MG TAB FEEDTUBE PRN (12:21)
--- NOTE | 2021-06-18 13:19 | Progress Note ---
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 - continue anti-infective's per ID recommendations - continue care as below otherwise; - Daily SAT and SBT assessment as tolerated - VAP bundle addressed - continue lung protective strategies - continue bronchodilators with pulmonary hygiene per RT - wean per pulmonary driven protocols otherwise - continue to wean supplemental oxygen for target O2 sat's > 90% acutely - continue accuchecks with glycemic control per SSI (While critically ill target blood glucose of 140-180 mg/dL; avoid hypoglycemia) - avoid nephrotoxins, renally dose all medications - continue to avoid benzodiazepine's, reduce the possibility of delirium - prn analgesia per CPOT score - Maintenance of sleep-wake cycle, avoid delirium - continue enteral nutritional support at goal rate as tolerated - G.I. & VTE prophylaxis - PT/OT/ROM exercises - continue mobility protocols for pressure ulcer prophylaxis - Monitor hemodynamics closely - continue other care per attending / other consultants - discharge planning ongoing concurrently COVID SPECIFIC INTERVENTIONS - repeat COVID-19 test result negative .... Re-evaluate in am & prn CONDITION: CRITICAL PROGNOSIS: GUARDED CODE STATUS: FULL CODE The high probability of a clinically significant, sudden or life-threatening deterioration of the [respiratory, GI, renal & cardiovascular] system(s) required my full and direct attention, intervention and personal management. The aggregate critical care time was [35] minutes without overlap. Time includes spent on; [x] Data Review and interpretation [x] Patient assessment and monitoring of vital signs [x] Documentation [x] Medication orders and management Subjective Date of service: 06/18/21 Principal diagnosis: Acute hypoxemic resp failure; Pneumonia; PUI COVID-19 infection Interval history: Patient is seen today for: Acute hypoxemic respiratory failure; Bilateral pneumonia; Suspected 2019 novel coronavirus infection Seen and examined at bedside; 24hour events reviewed; nursing and respiratory care staff consulted; no adverse overnight events reported to me; resting in bed; remains on MVS; CT chest with diffuse disease in a acute on chronic pattern; no emesis or overt aspiration and no high grade fevers Objective Vital Signs - 12hr 06/18/21 06/18/21 06/18/21 02:00 02:01 03:01 Temperature Pulse Rate 95 H 91 H Pulse Rate [ 102 H From Monitor] Respiratory 20 30 H 30 H Rate Blood Pressure 125/69 128/69 O2 Sat by Pulse 97 100 100 Oximetry 06/18/21 06/18/21 06/18/21 04:00 04:01 05:01 Temperature 98.8 F Pulse Rate 97 H 98 H Pulse Rate [ From Monitor] Respiratory 29 H 23 Rate Blood Pressure 129/76 127/70 O2 Sat by Pulse 100 97 Oximetry 06/18/21 06/18/21 06/18/21 06:00 06:01 07:01 Temperature Pulse Rate 101 H 101 H Pulse Rate [ 102 H From Monitor] Respiratory 20 25 H 22 Rate Blood Pressure 134/77 127/71 O2 Sat by Pulse 97 96 95 Oximetry 06/18/21 06/18/21 06/18/21 08:00 08:01 08:07 Temperature 98.7 F Pulse Rate 107 H 107 H Pulse Rate [ From Monitor] Respiratory 25 H Rate Blood Pressure 126/70 O2 Sat by Pulse 97 Oximetry 06/18/21 06/18/21 06/18/21 09:01 09:45 09:54 Temperature Pulse Rate 109 H 109 H Pulse Rate [ From Monitor] Respiratory 31 H Rate Blood Pressure 134/71 134/71 O2 Sat by Pulse 97 97 97 Oximetry 06/18/21 06/18/21 06/18/21 10:00 10:01 11:01 Temperature Pulse Rate 112 H 116 H Pulse Rate [ 112 H From Monitor] Respiratory 22 22 23 Rate Blood Pressure 139/80 147/76 O2 Sat by Pulse 99 96 95 Oximetry 06/18/21 06/18/21 06/18/21 12:00 12:01 13:09 Temperature Pulse Rate 126 H 126 H 126 H Pulse Rate [ From Monitor] Respiratory 25 H Rate Blood Pressure 141/76 141/76 O2 Sat by Pulse 98 98 Oximetry Constitutional: appears uncomfortable, other (middle aged male with mildly increased respiratory effort at rest on BIPAP) Eyes: non-icteric ENT: oropharynx moist, other (BIPAP FFM) Neck: supple, no JVD Effort: mildly labored Ascultation: Bilateral: diminished breath sounds (bases), rhonchi Percussion: Bilateral: not dull Cardiovascular: regular rate and rhythm Gastrointestinal: hypoactive bowel sounds, soft, non-tender, other (distended but very soft) Integumentary: normal Extremities: no cyanosis, no edema, pulses normal, no ischemia or petechiae Neurologic: pupils equal and round, CN II-XII normal, other (somnolent) Psychiatric: other (flat affect) CBC and BMP: 06/19/21 08:55 06/19/21 09:41 ABG, PT/INR, D-dimer: ABG ABG pH 7.184 (7.320-7.450) L 06/17/21 18:38 POC ABG pCO2 65.8 mmHg (32.0-48.0) H 06/17/21 18:38 ABG pCO2 29.0 mm Hg 05/30/21 22:32 POC ABG pO2 130.5 mmHg (83-108) H 06/17/21 18:38 ABG pO2 141.8 mm Hg (80.0-90.0) H 05/30/21 22:32 POC ABG HCO3 24.2 06/17/21 18:38 ABG O2 Saturation 97.5 (0-100) 06/17/21 18:38 PT/INR, D-dimer D-Dimer 3584.01 ng/mlDDU (0-234) H 05/27/21 08:09 Abnormal lab findings: Abnormal Labs 05/23/21 05/23/21 05/23/21 18:48 18:48 18:48 WBC 11.8 H RBC 5.18 H Hgb Hct MCV MCH MCHC RDW Plt Count Seg Neuts % (Manual) 84.0 H Lymphocytes % (Manual) Monocytes % (Manual) Nucleated RBC % Seg Neutrophils # Man 9.9 H Lymphocytes # (Manual) D-Dimer > 62100 H ABG pH POC ABG pCO2 POC ABG pO2 ABG pO2 ABG HCO3 ABG Base Excess ABG Hemoglobin ABG Oxyhemoglobin ABG Sodium ABG Potassium ABG Chloride ABG Glucose VBG pH Carboxyhemoglobin Sodium Potassium Chloride Carbon Dioxide BUN Creatinine Glucose POC Glucose Lactic Acid 2.30 H* Calcium Phosphorus Magnesium Ferritin AST ALT Ammonia Lactate Dehydrogenase C-Reactive Protein Total Protein Albumin Arterial Blood Glucose Arterial Blood Ionized Calcium Urine WBC (Auto) Vancomycin Trough 05/23/21 05/23/21 05/23/21 18:48 18:48 18:48 WBC RBC Hgb Hct MCV MCH MCHC RDW Plt Count Seg Neuts % (Manual) Lymphocytes % (Manual) Monocytes % (Manual) Nucleated RBC % Seg Neutrophils # Man Lymphocytes # (Manual) D-Dimer ABG pH POC ABG pCO2 POC ABG pO2 ABG pO2 ABG HCO3 ABG Base Excess ABG Hemoglobin ABG Oxyhemoglobin ABG Sodium ABG Potassium ABG Chloride ABG Glucose VBG pH Carboxyhemoglobin Sodium 151 H Potassium 5.1 H Chloride 113.2 H Carbon Dioxide 17 L BUN 180 H Creatinine 4.3 H Glucose 114 H POC Glucose Lactic Acid Calcium Phosphorus Magnesium Ferritin 2000.0 H AST ALT Ammonia 22.0 L Lactate Dehydrogenase 577 H C-Reactive Protein 8.80 H Total Protein 9.4 H Albumin 3.0 L Arterial Blood Glucose Arterial Blood Ionized Calcium Urine WBC (Auto) Vancomycin Trough 05/23/21 05/24/21 05/24/21 21:06 02:09 02:09 WBC RBC Hgb Hct MCV MCH MCHC RDW Plt Count Seg Neuts % (Manual) Lymphocytes % (Manual) Monocytes % (Manual) Nucleated RBC % Seg Neutrophils # Man Lymphocytes # (Manual) D-Dimer ABG pH POC ABG pCO2 POC ABG pO2 ABG pO2 ABG HCO3 ABG Base Excess ABG Hemoglobin ABG Oxyhemoglobin ABG Sodium ABG Potassium ABG Chloride ABG Glucose VBG pH 7.254 L Carboxyhemoglobin Sodium Potassium Chloride Carbon Dioxide BUN Creatinine Glucose POC Glucose Lactic Acid 2.10 H* 2.30 H* Calcium Phosphorus Magnesium Ferritin AST ALT Ammonia Lactate Dehydrogenase C-Reactive Protein Total Protein Albumin Arterial Blood Glucose Arterial Blood Ionized Calcium Urine WBC (Auto) Vancomycin Trough 05/24/21 05/24/21 05/24/21 13:11 17:34 18:12 WBC RBC Hgb Hct MCV MCH MCHC RDW Plt Count Seg Neuts % (Manual) Lymphocytes % (Manual) Monocytes % (Manual) Nucleated RBC % Seg Neutrophils # Man Lymphocytes # (Manual) D-Dimer ABG pH POC ABG pCO2 POC ABG pO2 ABG pO2 ABG HCO3 ABG Base Excess ABG Hemoglobin ABG Oxyhemoglobin ABG Sodium ABG Potassium ABG Chloride ABG Glucose VBG pH Carboxyhemoglobin Sodium 155 H Potassium 6.9 H* D 5.7 H Chloride 121.9 H Carbon Dioxide 20 L BUN 139 H Creatinine 2.7 H Glucose 139 H POC Glucose 153 H Lactic Acid Calcium Phosphorus Magnesium Ferritin AST ALT Ammonia Lactate Dehydrogenase C-Reactive Protein Total Protein Albumin Arterial Blood Glucose Arterial Blood Ionized Calcium Urine WBC (Auto) Vancomycin Trough 05/25/21 05/25/21 05/26/21 11:33 11:33 03:15 WBC 13.8 H RBC 5.06 H Hgb Hct MCV MCH MCHC RDW Plt Count Seg Neuts % (Manual) Lymphocytes % (Manual) Monocytes % (Manual) Nucleated RBC % Seg Neutrophils # Man Lymphocytes # (Manual) D-Dimer ABG pH POC ABG pCO2 POC ABG pO2 ABG pO2 ABG HCO3 ABG Base Excess ABG Hemoglobin ABG Oxyhemoglobin ABG Sodium ABG Potassium ABG Chloride ABG Glucose VBG pH Carboxyhemoglobin Sodium 164 H* D 166 H* Potassium 5.4 H 5.5 H Chloride 131.3 H 129.2 H Carbon Dioxide BUN 109 H 102 H Creatinine 1.9 H 1.8 H Glucose 117 H 113 H POC Glucose Lactic Acid Calcium Phosphorus Magnesium Ferritin AST ALT Ammonia Lactate Dehydrogenase 711 H C-Reactive Protein 7.90 H Total Protein Albumin Arterial Blood Glucose Arterial Blood Ionized Calcium Urine WBC (Auto) Vancomycin Trough 05/26/21 05/26/21 05/26/21 03:15 03:15 03:15 WBC 13.1 H RBC 5.43 H Hgb 15.3 H Hct 48.5 H MCV MCH MCHC RDW 15.4 H Plt Count Seg Neuts % (Manual) Lymphocytes % (Manual) Monocytes % (Manual) Nucleated RBC % Seg Neutrophils # Man Lymphocytes # (Manual) D-Dimer 6229.14 H ABG pH POC ABG pCO2 POC ABG pO2 ABG pO2 ABG HCO3 ABG Base Excess ABG Hemoglobin ABG Oxyhemoglobin ABG Sodium ABG Potassium ABG Chloride ABG Glucose VBG pH Carboxyhemoglobin Sodium Potassium Chloride Carbon Dioxide BUN Creatinine Glucose POC Glucose Lactic Acid Calcium Phosphorus Magnesium Ferritin 2991.0 H AST ALT Ammonia Lactate Dehydrogenase C-Reactive Protein Total Protein Albumin Arterial Blood Glucose Arterial Blood Ionized Calcium Urine WBC (Auto) Vancomycin Trough 05/27/21 05/27/21 05/27/21 08:09 08:09 08:09 WBC 12.4 H RBC 5.27 H Hgb Hct 46.6 H MCV MCH MCHC 31 L RDW 15.7 H Plt Count Seg Neuts % (Manual) Lymphocytes % (Manual) Monocytes % (Manual) Nucleated RBC % Seg Neutrophils # Man Lymphocytes # (Manual) D-Dimer 3584.01 H ABG pH POC ABG pCO2 POC ABG pO2 ABG pO2 ABG HCO3 ABG Base Excess ABG Hemoglobin ABG Oxyhemoglobin ABG Sodium ABG Potassium ABG Chloride ABG Glucose VBG pH Carboxyhemoglobin Sodium 174 H* Potassium Chloride 136.9 H Carbon Dioxide BUN 90 H Creatinine 1.8 H Glucose POC Glucose Lactic Acid Calcium Phosphorus Magnesium Ferritin AST ALT Ammonia Lactate Dehydrogenase 642 H C-Reactive Protein 5.20 H Total Protein Albumin Arterial Blood Glucose Arterial Blood Ionized Calcium Urine WBC (Auto) Vancomycin Trough 05/27/21 05/28/21 05/28/21 08:09 07:31 07:31 WBC RBC Hgb Hct MCV MCH 27 L MCHC 31 L RDW Plt Count Seg Neuts % (Manual) 88.0 H Lymphocytes % (Manual) 11.0 L Monocytes % (Manual) Nucleated RBC % Seg Neutrophils # Man 8.3 H Lymphocytes # (Manual) 1.0 L D-Dimer ABG pH POC ABG pCO2 POC ABG pO2 ABG pO2 ABG HCO3 ABG Base Excess ABG Hemoglobin ABG Oxyhemoglobin ABG Sodium ABG Potassium ABG Chloride ABG Glucose VBG pH Carboxyhemoglobin Sodium 162 H* D Potassium Chloride 125.8 H Carbon Dioxide BUN 72 H Creatinine 1.6 H Glucose 131 H POC Glucose Lactic Acid Calcium Phosphorus Magnesium 3.00 H Ferritin 2742.0 H AST ALT Ammonia Lactate Dehydrogenase C-Reactive Protein Total Protein Albumin Arterial Blood Glucose Arterial Blood Ionized Calcium Urine WBC (Auto) Vancomycin Trough 05/29/21 05/29/21 05/29/21 06:40 06:40 17:58 WBC 14.1 H RBC Hgb Hct MCV MCH 27 L MCHC 31 L RDW Plt Count Seg Neuts % (Manual) 85.0 H Lymphocytes % (Manual) 9.0 L Monocytes % (Manual) Nucleated RBC % 1.0 H Seg Neutrophils # Man 12.0 H Lymphocytes # (Manual) D-Dimer ABG pH 7.505 H POC ABG pCO2 30.3 L POC ABG pO2 128.1 H ABG pO2 ABG HCO3 ABG Base Excess ABG Hemoglobin 11.9 L ABG Oxyhemoglobin ABG Sodium ABG Potassium ABG Chloride 113.0 H ABG Glucose 110 H VBG pH Carboxyhemoglobin Sodium 148 H D Potassium Chloride 111.3 H Carbon Dioxide 20 L BUN 45 H Creatinine Glucose POC Glucose Lactic Acid Calcium Phosphorus 2.10 L D Magnesium Ferritin AST ALT Ammonia Lactate Dehydrogenase C-Reactive Protein Total Protein Albumin Arterial Blood Glucose 110 H Arterial Blood Ionized Calcium 4.5 L Urine WBC (Auto) Vancomycin Trough 05/30/21 05/30/21 05/30/21 01:00 06:06 13:48 WBC RBC Hgb Hct MCV MCH MCHC RDW Plt Count Seg Neuts % (Manual) Lymphocytes % (Manual) Monocytes % (Manual) Nucleated RBC % Seg Neutrophils # Man Lymphocytes # (Manual) D-Dimer ABG pH POC ABG pCO2 POC ABG pO2 ABG pO2 90.9 H ABG HCO3 ABG Base Excess ABG Hemoglobin 11.8 L ABG Oxyhemoglobin ABG Sodium ABG Potassium ABG Chloride ABG Glucose VBG pH Carboxyhemoglobin Sodium 150 H Potassium Chloride 117.6 H Carbon Dioxide BUN 40 H Creatinine Glucose POC Glucose Lactic Acid Calcium 8.3 L Phosphorus Magnesium Ferritin AST ALT Ammonia Lactate Dehydrogenase C-Reactive Protein Total Protein Albumin Arterial Blood Glucose Arterial Blood Ionized Calcium Urine WBC (Auto) 12.0 H Vancomycin Trough 05/30/21 05/31/21 05/31/21 22:32 02:22 02:22 WBC RBC Hgb 11.2 L Hct 34.8 L MCV MCH MCHC RDW Plt Count 127 L Seg Neuts % (Manual) 97.0 H Lymphocytes % (Manual) Monocytes % (Manual) Nucleated RBC % Seg Neutrophils # Man 10.5 H Lymphocytes # (Manual) 0.0 L D-Dimer ABG pH 7.454 H POC ABG pCO2 POC ABG pO2 ABG pO2 141.8 H ABG HCO3 19.9 L ABG Base Excess -2.7 L ABG Hemoglobin ABG Oxyhemoglobin ABG Sodium ABG Potassium ABG Chloride ABG Glucose VBG pH Carboxyhemoglobin Sodium 152 H Potassium Chloride 118.9 H Carbon Dioxide 19 L BUN 48 H Creatinine 1.5 H Glucose 101 H POC Glucose Lactic Acid Calcium 8.3 L Phosphorus Magnesium Ferritin AST ALT Ammonia Lactate Dehydrogenase C-Reactive Protein Total Protein Albumin Arterial Blood Glucose Arterial Blood Ionized Calcium Urine WBC (Auto) Vancomycin Trough 05/31/21 05/31/21 06/01/21 11:42 21:28 07:10 WBC RBC Hgb Hct MCV MCH MCHC RDW Plt Count Seg Neuts % (Manual) Lymphocytes % (Manual) Monocytes % (Manual) Nucleated RBC % Seg Neutrophils # Man Lymphocytes # (Manual) D-Dimer ABG pH POC ABG pCO2 POC ABG pO2 ABG pO2 ABG HCO3 ABG Base Excess ABG Hemoglobin ABG Oxyhemoglobin ABG Sodium ABG Potassium ABG Chloride ABG Glucose VBG pH Carboxyhemoglobin Sodium 150 H Potassium Chloride 115.7 H Carbon Dioxide BUN 47 H Creatinine Glucose 115 H POC Glucose 161 H Lactic Acid Calcium Phosphorus Magnesium 2.50 H Ferritin AST ALT Ammonia Lactate Dehydrogenase C-Reactive Protein Total Protein Albumin Arterial Blood Glucose Arterial Blood Ionized Calcium Urine WBC (Auto) Vancomycin Trough 20.2 H 06/01/21 06/01/21 06/01/21 07:10 07:54 10:39 WBC RBC Hgb 10.7 L Hct 33.5 L MCV MCH MCHC RDW Plt Count Seg Neuts % (Manual) 92.0 H Lymphocytes % (Manual) 4.0 L Monocytes % (Manual) Nucleated RBC % Seg Neutrophils # Man Lymphocytes # (Manual) 0.3 L D-Dimer ABG pH POC ABG pCO2 POC ABG pO2 ABG pO2 ABG HCO3 ABG Base Excess ABG Hemoglobin ABG Oxyhemoglobin ABG Sodium ABG Potassium ABG Chloride ABG Glucose VBG pH Carboxyhemoglobin Sodium 152 H Potassium Chloride 117.6 H Carbon Dioxide BUN 50 H Creatinine Glucose 140 H POC Glucose 127 H Lactic Acid Calcium 8.3 L Phosphorus Magnesium Ferritin AST ALT Ammonia Lactate Dehydrogenase C-Reactive Protein Total Protein Albumin Arterial Blood Glucose Arterial Blood Ionized Calcium Urine WBC (Auto) Vancomycin Trough 06/01/21 06/01/21 06/01/21 11:11 16:16 21:45 WBC RBC Hgb Hct MCV MCH MCHC RDW Plt Count Seg Neuts % (Manual) Lymphocytes % (Manual) Monocytes % (Manual) Nucleated RBC % Seg Neutrophils # Man Lymphocytes # (Manual) D-Dimer ABG pH POC ABG pCO2 POC ABG pO2 ABG pO2 ABG HCO3 ABG Base Excess ABG Hemoglobin ABG Oxyhemoglobin ABG Sodium ABG Potassium ABG Chloride ABG Glucose VBG pH Carboxyhemoglobin Sodium Potassium Chloride Carbon Dioxide BUN Creatinine Glucose POC Glucose 120 H 129 H 150 H Lactic Acid Calcium Phosphorus Magnesium Ferritin AST ALT Ammonia Lactate Dehydrogenase C-Reactive Protein Total Protein Albumin Arterial Blood Glucose Arterial Blood Ionized Calcium Urine WBC (Auto) Vancomycin Trough 06/02/21 06/02/21 06/02/21 06:53 06:53 07:52 WBC RBC Hgb 10.4 L Hct 32.4 L MCV MCH 27 L MCHC RDW Plt Count Seg Neuts % (Manual) 93.0 H Lymphocytes % (Manual) 3.0 L Monocytes % (Manual) Nucleated RBC % Seg Neutrophils # Man Lymphocytes # (Manual) 0.2 L D-Dimer ABG pH POC ABG pCO2 POC ABG pO2 ABG pO2 ABG HCO3 ABG Base Excess ABG Hemoglobin ABG Oxyhemoglobin ABG Sodium ABG Potassium ABG Chloride ABG Glucose VBG pH Carboxyhemoglobin Sodium 149 H Potassium Chloride 112.6 H Carbon Dioxide BUN 54 H Creatinine Glucose 123 H POC Glucose 116 H Lactic Acid Calcium 8.2 L Phosphorus Magnesium Ferritin AST ALT Ammonia Lactate Dehydrogenase C-Reactive Protein Total Protein Albumin Arterial Blood Glucose Arterial Blood Ionized Calcium Urine WBC (Auto) Vancomycin Trough 06/03/21 06/03/21 06/03/21 05:57 05:57 21:23 WBC RBC Hgb 10.7 L Hct 33.0 L MCV 83 L MCH 27 L MCHC RDW Plt Count Seg Neuts % (Manual) 88.0 H Lymphocytes % (Manual) 8.0 L Monocytes % (Manual) Nucleated RBC % 2.0 H Seg Neutrophils # Man Lymphocytes # (Manual) 0.6 L D-Dimer ABG pH POC ABG pCO2 POC ABG pO2 39.0 L ABG pO2 ABG HCO3 ABG Base Excess ABG Hemoglobin ABG Oxyhemoglobin 69.1 L ABG Sodium 134.1 L ABG Potassium ABG Chloride ABG Glucose 135 H VBG pH Carboxyhemoglobin Sodium Potassium Chloride Carbon Dioxide BUN 36 H Creatinine Glucose 102 H POC Glucose Lactic Acid Calcium 8.0 L Phosphorus 2.20 L D Magnesium Ferritin AST ALT Ammonia Lactate Dehydrogenase C-Reactive Protein Total Protein Albumin Arterial Blood Glucose 135 H Arterial Blood Ionized Calcium Urine WBC (Auto) Vancomycin Trough 06/04/21 06/04/21 06/04/21 07:04 07:04 17:42 WBC RBC Hgb 11.3 L Hct 34.9 L MCV MCH 27 L MCHC RDW Plt Count Seg Neuts % (Manual) Lymphocytes % (Manual) 5.0 L Monocytes % (Manual) Nucleated RBC % Seg Neutrophils # Man 8.4 H Lymphocytes # (Manual) 0.5 L D-Dimer ABG pH POC ABG pCO2 POC ABG pO2 ABG pO2 ABG HCO3 ABG Base Excess ABG Hemoglobin ABG Oxyhemoglobin ABG Sodium ABG Potassium ABG Chloride ABG Glucose VBG pH Carboxyhemoglobin Sodium Potassium Chloride Carbon Dioxide BUN 27 H Creatinine Glucose POC Glucose 136 H Lactic Acid Calcium 8.2 L Phosphorus Magnesium Ferritin AST ALT Ammonia Lactate Dehydrogenase C-Reactive Protein Total Protein Albumin Arterial Blood Glucose Arterial Blood Ionized Calcium Urine WBC (Auto) Vancomycin Trough 06/05/21 06/05/21 06/05/21 05:10 12:32 15:45 WBC RBC Hgb Hct MCV MCH MCHC RDW Plt Count Seg Neuts % (Manual) Lymphocytes % (Manual) Monocytes % (Manual) Nucleated RBC % Seg Neutrophils # Man Lymphocytes # (Manual) D-Dimer ABG pH POC ABG pCO2 POC ABG pO2 ABG pO2 ABG HCO3 ABG Base Excess ABG Hemoglobin ABG Oxyhemoglobin ABG Sodium ABG Potassium ABG Chloride ABG Glucose VBG pH Carboxyhemoglobin Sodium Potassium 3.5 L Chloride Carbon Dioxide BUN 35 H Creatinine Glucose 130 H POC Glucose 122 H 119 H Lactic Acid Calcium 8.2 L Phosphorus Magnesium Ferritin AST ALT Ammonia Lactate Dehydrogenase C-Reactive Protein Total Protein Albumin Arterial Blood Glucose Arterial Blood Ionized Calcium Urine WBC (Auto) Vancomycin Trough 06/05/21 06/05/21 06/06/21 20:06 21:27 00:04 WBC RBC Hgb Hct MCV MCH MCHC RDW Plt Count Seg Neuts % (Manual) Lymphocytes % (Manual) Monocytes % (Manual) Nucleated RBC % Seg Neutrophils # Man Lymphocytes # (Manual) D-Dimer ABG pH 7.456 H POC ABG pCO2 POC ABG pO2 ABG pO2 ABG HCO3 ABG Base Excess ABG Hemoglobin 10.3 L ABG Oxyhemoglobin ABG Sodium ABG Potassium 3.1 L ABG Chloride ABG Glucose 125 H VBG pH Carboxyhemoglobin 0.3 L Sodium Potassium Chloride Carbon Dioxide BUN Creatinine Glucose POC Glucose 113 H Lactic Acid Calcium Phosphorus Magnesium Ferritin AST ALT Ammonia Lactate Dehydrogenase C-Reactive Protein 19.60 H Total Protein Albumin Arterial Blood Glucose 125 H Arterial Blood Ionized Calcium Urine WBC (Auto) Vancomycin Trough 06/06/21 06/06/21 06/07/21 04:35 22:37 05:54 WBC RBC Hgb Hct MCV MCH MCHC RDW Plt Count Seg Neuts % (Manual) Lymphocytes % (Manual) Monocytes % (Manual) Nucleated RBC % Seg Neutrophils # Man Lymphocytes # (Manual) D-Dimer ABG pH POC ABG pCO2 POC ABG pO2 ABG pO2 ABG HCO3 ABG Base Excess ABG Hemoglobin ABG Oxyhemoglobin ABG Sodium ABG Potassium ABG Chloride ABG Glucose VBG pH Carboxyhemoglobin Sodium Potassium Chloride Carbon Dioxide BUN 43 H Creatinine Glucose POC Glucose 114 H 130 H Lactic Acid Calcium 7.6 L Phosphorus Magnesium Ferritin AST ALT Ammonia Lactate Dehydrogenase C-Reactive Protein Total Protein Albumin Arterial Blood Glucose Arterial Blood Ionized Calcium Urine WBC (Auto) Vancomycin Trough 06/07/21 06/07/21 06/07/21 07:32 10:03 11:36 WBC RBC 3.63 L Hgb 9.8 L Hct 30.3 L MCV 83 L MCH 27 L MCHC RDW Plt Count Seg Neuts % (Manual) Lymphocytes % (Manual) Monocytes % (Manual) Nucleated RBC % Seg Neutrophils # Man Lymphocytes # (Manual) D-Dimer ABG pH POC ABG pCO2 POC ABG pO2 ABG pO2 ABG HCO3 ABG Base Excess ABG Hemoglobin ABG Oxyhemoglobin ABG Sodium ABG Potassium ABG Chloride ABG Glucose VBG pH Carboxyhemoglobin Sodium Potassium 3.2 L Chloride 108.5 H Carbon Dioxide BUN 36 H Creatinine Glucose 139 H POC Glucose 125 H Lactic Acid Calcium 8.0 L Phosphorus Magnesium Ferritin AST ALT Ammonia Lactate Dehydrogenase C-Reactive Protein Total Protein Albumin Arterial Blood Glucose Arterial Blood Ionized Calcium Urine WBC (Auto) Vancomycin Trough 06/07/21 06/07/21 06/08/21 17:54 22:14 07:18 WBC RBC Hgb Hct MCV MCH MCHC RDW Plt Count Seg Neuts % (Manual) Lymphocytes % (Manual) Monocytes % (Manual) Nucleated RBC % Seg Neutrophils # Man Lymphocytes # (Manual) D-Dimer ABG pH POC ABG pCO2 POC ABG pO2 ABG pO2 ABG HCO3 ABG Base Excess ABG Hemoglobin ABG Oxyhemoglobin ABG Sodium ABG Potassium ABG Chloride ABG Glucose VBG pH Carboxyhemoglobin Sodium 149 H Potassium Chloride 110.2 H Carbon Dioxide BUN 31 H Creatinine Glucose 131 H POC Glucose 121 H 131 H Lactic Acid Calcium 8.1 L Phosphorus Magnesium Ferritin AST ALT Ammonia Lactate Dehydrogenase C-Reactive Protein Total Protein Albumin Arterial Blood Glucose Arterial Blood Ionized Calcium Urine WBC (Auto) Vancomycin Trough 06/08/21 06/08/21 06/08/21 07:45 12:07 18:02 WBC RBC Hgb Hct MCV MCH MCHC RDW Plt Count Seg Neuts % (Manual) Lymphocytes % (Manual) Monocytes % (Manual) Nucleated RBC % Seg Neutrophils # Man Lymphocytes # (Manual) D-Dimer ABG pH POC ABG pCO2 POC ABG pO2 ABG pO2 ABG HCO3 ABG Base Excess ABG Hemoglobin ABG Oxyhemoglobin ABG Sodium ABG Potassium ABG Chloride ABG Glucose VBG pH Carboxyhemoglobin Sodium Potassium Chloride Carbon Dioxide BUN Creatinine Glucose POC Glucose 120 H 127 H 148 H Lactic Acid Calcium Phosphorus Magnesium Ferritin AST ALT Ammonia Lactate Dehydrogenase C-Reactive Protein Total Protein Albumin Arterial Blood Glucose Arterial Blood Ionized Calcium Urine WBC (Auto) Vancomycin Trough 06/09/21 06/09/21 06/09/21 05:51 05:51 11:37 WBC 3.9 L RBC 3.38 L Hgb 9.4 L Hct 28.5 L MCV MCH MCHC RDW Plt Count Seg Neuts % (Manual) Lymphocytes % (Manual) Monocytes % (Manual) Nucleated RBC % Seg Neutrophils # Man Lymphocytes # (Manual) D-Dimer ABG pH POC ABG pCO2 POC ABG pO2 ABG pO2 ABG HCO3 ABG Base Excess ABG Hemoglobin ABG Oxyhemoglobin ABG Sodium ABG Potassium ABG Chloride ABG Glucose VBG pH Carboxyhemoglobin Sodium Potassium Chloride 108.4 H Carbon Dioxide BUN 32 H Creatinine Glucose 137 H POC Glucose 115 H Lactic Acid Calcium 7.5 L Phosphorus Magnesium Ferritin AST 55 H ALT Ammonia Lactate Dehydrogenase C-Reactive Protein 4.10 H Total Protein 5.6 L Albumin 2.0 L Arterial Blood Glucose Arterial Blood Ionized Calcium Urine WBC (Auto) Vancomycin Trough 06/09/21 06/09/21 06/10/21 17:32 22:18 01:52 WBC RBC 3.62 L Hgb 9.9 L Hct 29.8 L MCV 82 L MCH 27 L MCHC RDW Plt Count Seg Neuts % (Manual) Lymphocytes % (Manual) Monocytes % (Manual) Nucleated RBC % Seg Neutrophils # Man Lymphocytes # (Manual) D-Dimer ABG pH POC ABG pCO2 POC ABG pO2 ABG pO2 ABG HCO3 ABG Base Excess ABG Hemoglobin ABG Oxyhemoglobin ABG Sodium ABG Potassium ABG Chloride ABG Glucose VBG pH Carboxyhemoglobin Sodium Potassium Chloride Carbon Dioxide BUN Creatinine Glucose POC Glucose 113 H 110 H Lactic Acid Calcium Phosphorus Magnesium Ferritin AST ALT Ammonia Lactate Dehydrogenase C-Reactive Protein Total Protein Albumin Arterial Blood Glucose Arterial Blood Ionized Calcium Urine WBC (Auto) Vancomycin Trough 06/10/21 06/10/21 06/10/21 01:52 16:14 22:45 WBC RBC Hgb Hct MCV MCH MCHC RDW Plt Count Seg Neuts % (Manual) Lymphocytes % (Manual) Monocytes % (Manual) Nucleated RBC % Seg Neutrophils # Man Lymphocytes # (Manual) D-Dimer ABG pH POC ABG pCO2 POC ABG pO2 ABG pO2 ABG HCO3 ABG Base Excess ABG Hemoglobin ABG Oxyhemoglobin ABG Sodium ABG Potassium ABG Chloride ABG Glucose VBG pH Carboxyhemoglobin Sodium Potassium Chloride 108.2 H Carbon Dioxide BUN 32 H Creatinine 1.4 H Glucose POC Glucose 111 H 107 H Lactic Acid Calcium 7.8 L Phosphorus Magnesium Ferritin AST 55 H ALT Ammonia Lactate Dehydrogenase C-Reactive Protein Total Protein 5.6 L Albumin 1.9 L Arterial Blood Glucose Arterial Blood Ionized Calcium Urine WBC (Auto) Vancomycin Trough 06/11/21 06/11/21 06/11/21 05:51 05:51 05:51 WBC RBC 3.35 L Hgb 9.1 L Hct 28.1 L MCV MCH 27 L MCHC RDW Plt Count 117 L Seg Neuts % (Manual) 93.0 H Lymphocytes % (Manual) 1.0 L Monocytes % (Manual) Nucleated RBC % Seg Neutrophils # Man Lymphocytes # (Manual) 0.0 L D-Dimer ABG pH POC ABG pCO2 POC ABG pO2 ABG pO2 ABG HCO3 ABG Base Excess ABG Hemoglobin ABG Oxyhemoglobin ABG Sodium ABG Potassium ABG Chloride ABG Glucose VBG pH Carboxyhemoglobin Sodium 146 H Potassium Chloride 110.9 H Carbon Dioxide BUN 40 H Creatinine Glucose 119 H POC Glucose Lactic Acid Calcium 7.8 L Phosphorus Magnesium Ferritin AST ALT Ammonia Lactate Dehydrogenase C-Reactive Protein Total Protein Albumin Arterial Blood Glucose Arterial Blood Ionized Calcium Urine WBC (Auto) Vancomycin Trough 22.6 H 06/11/21 06/11/21 06/11/21 08:28 11:36 15:47 WBC RBC Hgb Hct MCV MCH MCHC RDW Plt Count Seg Neuts % (Manual) Lymphocytes % (Manual) Monocytes % (Manual) Nucleated RBC % Seg Neutrophils # Man Lymphocytes # (Manual) D-Dimer ABG pH POC ABG pCO2 POC ABG pO2 ABG pO2 ABG HCO3 ABG Base Excess ABG Hemoglobin ABG Oxyhemoglobin ABG Sodium ABG Potassium ABG Chloride ABG Glucose VBG pH Carboxyhemoglobin Sodium Potassium Chloride Carbon Dioxide BUN Creatinine Glucose POC Glucose 109 H 149 H 139 H Lactic Acid Calcium Phosphorus Magnesium Ferritin AST ALT Ammonia Lactate Dehydrogenase C-Reactive Protein Total Protein Albumin Arterial Blood Glucose Arterial Blood Ionized Calcium Urine WBC (Auto) Vancomycin Trough 06/11/21 06/12/21 06/12/21 21:42 04:00 04:00 WBC 4.0 L RBC 3.50 L Hgb 9.4 L Hct 29.9 L MCV MCH 27 L MCHC 31 L RDW 15.3 H Plt Count 126 L Seg Neuts % (Manual) 88.0 H Lymphocytes % (Manual) Monocytes % (Manual) 12.0 H Nucleated RBC % Seg Neutrophils # Man Lymphocytes # (Manual) 0.0 L D-Dimer ABG pH POC ABG pCO2 POC ABG pO2 ABG pO2 ABG HCO3 ABG Base Excess ABG Hemoglobin ABG Oxyhemoglobin ABG Sodium ABG Potassium ABG Chloride ABG Glucose VBG pH Carboxyhemoglobin Sodium 149 H Potassium Chloride 114.1 H Carbon Dioxide BUN 37 H Creatinine Glucose 137 H POC Glucose 124 H Lactic Acid Calcium 8.0 L Phosphorus Magnesium Ferritin AST ALT Ammonia Lactate Dehydrogenase C-Reactive Protein Total Protein Albumin Arterial Blood Glucose Arterial Blood Ionized Calcium Urine WBC (Auto) Vancomycin Trough 06/12/21 06/13/21 06/13/21 06:37 00:14 06:05 WBC 4.3 L RBC 3.39 L Hgb 9.2 L Hct 28.6 L MCV MCH 27 L MCHC RDW 15.3 H Plt Count 107 L Seg Neuts % (Manual) 77.0 H Lymphocytes % (Manual) 1.0 L Monocytes % (Manual) Nucleated RBC % 1.0 H Seg Neutrophils # Man Lymphocytes # (Manual) 0.0 L D-Dimer ABG pH POC ABG pCO2 POC ABG pO2 ABG pO2 ABG HCO3 ABG Base Excess ABG Hemoglobin ABG Oxyhemoglobin ABG Sodium ABG Potassium ABG Chloride ABG Glucose VBG pH Carboxyhemoglobin Sodium Potassium Chloride Carbon Dioxide BUN Creatinine Glucose POC Glucose 128 H 149 H Lactic Acid Calcium Phosphorus Magnesium Ferritin AST ALT Ammonia Lactate Dehydrogenase C-Reactive Protein Total Protein Albumin Arterial Blood Glucose Arterial Blood Ionized Calcium Urine WBC (Auto) Vancomycin Trough 06/13/21 06/13/21 06/14/21 06:05 11:51 04:29 WBC 4.2 L RBC 3.21 L Hgb 8.7 L Hct 26.7 L MCV 83 L MCH 27 L MCHC RDW 15.3 H Plt Count 87 L Seg Neuts % (Manual) 96 H Lymphocytes % (Manual) 2 L Monocytes % (Manual) Nucleated RBC % Seg Neutrophils # Man Lymphocytes # (Manual) 0.0 L D-Dimer ABG pH POC ABG pCO2 POC ABG pO2 48.3 L ABG pO2 ABG HCO3 ABG Base Excess ABG Hemoglobin 10.7 L ABG Oxyhemoglobin 84.1 L ABG Sodium 145.5 H ABG Potassium ABG Chloride 116.0 H ABG Glucose VBG pH Carboxyhemoglobin Sodium 146 H Potassium 3.5 L Chloride 112.3 H Carbon Dioxide BUN 38 H Creatinine Glucose 112 H POC Glucose Lactic Acid Calcium 8.1 L Phosphorus Magnesium Ferritin AST ALT Ammonia Lactate Dehydrogenase C-Reactive Protein Total Protein Albumin Arterial Blood Glucose Arterial Blood Ionized Calcium Urine WBC (Auto) Vancomycin Trough 06/14/21 06/14/21 06/14/21 04:29 06:17 23:51 WBC RBC Hgb Hct MCV MCH MCHC RDW Plt Count Seg Neuts % (Manual) Lymphocytes % (Manual) Monocytes % (Manual) Nucleated RBC % Seg Neutrophils # Man Lymphocytes # (Manual) D-Dimer ABG pH POC ABG pCO2 POC ABG pO2 ABG pO2 ABG HCO3 ABG Base Excess ABG Hemoglobin ABG Oxyhemoglobin ABG Sodium ABG Potassium ABG Chloride ABG Glucose VBG pH Carboxyhemoglobin Sodium 148 H Potassium Chloride 115.3 H Carbon Dioxide BUN 40 H Creatinine Glucose 124 H POC Glucose 106 H 135 H Lactic Acid Calcium 8.2 L Phosphorus Magnesium Ferritin AST ALT Ammonia Lactate Dehydrogenase C-Reactive Protein Total Protein Albumin Arterial Blood Glucose Arterial Blood Ionized Calcium Urine WBC (Auto) Vancomycin Trough 06/15/21 06/15/21 06/15/21 05:23 05:53 05:53 WBC 3.8 L RBC 2.94 L Hgb 8.0 L Hct 24.0 L MCV 81 L MCH 27 L MCHC RDW 15.6 H Plt Count 87 L Seg Neuts % (Manual) 95.0 H Lymphocytes % (Manual) 1.0 L Monocytes % (Manual) Nucleated RBC % 1.0 H Seg Neutrophils # Man Lymphocytes # (Manual) 0.0 L D-Dimer ABG pH POC ABG pCO2 POC ABG pO2 ABG pO2 ABG HCO3 ABG Base Excess ABG Hemoglobin ABG Oxyhemoglobin ABG Sodium ABG Potassium ABG Chloride ABG Glucose VBG pH Carboxyhemoglobin Sodium Potassium Chloride 110.5 H Carbon Dioxide BUN 43 H Creatinine Glucose 143 H POC Glucose 134 H Lactic Acid Calcium 8.1 L Phosphorus 2.10 L D Magnesium Ferritin AST ALT Ammonia Lactate Dehydrogenase C-Reactive Protein Total Protein Albumin Arterial Blood Glucose Arterial Blood Ionized Calcium Urine WBC (Auto) Vancomycin Trough 06/16/21 06/16/21 06/16/21 05:22 05:59 05:59 WBC 3.4 L RBC 3.34 L Hgb 9.0 L Hct 27.9 L MCV MCH 27 L MCHC RDW 15.5 H Plt Count 72 L Seg Neuts % (Manual) 97.0 H Lymphocytes % (Manual) Monocytes % (Manual) Nucleated RBC % Seg Neutrophils # Man Lymphocytes # (Manual) 0.0 L D-Dimer ABG pH POC ABG pCO2 POC ABG pO2 ABG pO2 ABG HCO3 ABG Base Excess ABG Hemoglobin ABG Oxyhemoglobin ABG Sodium ABG Potassium ABG Chloride ABG Glucose VBG pH Carboxyhemoglobin Sodium Potassium Chloride 108.8 H Carbon Dioxide BUN 53 H Creatinine 1.4 H Glucose 160 H POC Glucose 141 H Lactic Acid Calcium 8.1 L Phosphorus Magnesium Ferritin AST ALT Ammonia Lactate Dehydrogenase C-Reactive Protein Total Protein Albumin Arterial Blood Glucose Arterial Blood Ionized Calcium Urine WBC (Auto) Vancomycin Trough 06/16/21 06/16/21 06/17/21 11:31 17:08 06:25 WBC 4.4 L RBC 3.14 L Hgb 8.5 L Hct 25.7 L MCV 82 L MCH 27 L MCHC RDW 15.7 H Plt Count 64 L Seg Neuts % (Manual) 95.0 H Lymphocytes % (Manual) Monocytes % (Manual) Nucleated RBC % Seg Neutrophils # Man Lymphocytes # (Manual) 0.0 L D-Dimer ABG pH POC ABG pCO2 POC ABG pO2 ABG pO2 ABG HCO3 ABG Base Excess ABG Hemoglobin ABG Oxyhemoglobin ABG Sodium ABG Potassium ABG Chloride ABG Glucose VBG pH Carboxyhemoglobin Sodium Potassium Chloride Carbon Dioxide BUN Creatinine Glucose POC Glucose 129 H 136 H Lactic Acid Calcium Phosphorus Magnesium Ferritin AST ALT Ammonia Lactate Dehydrogenase C-Reactive Protein Total Protein Albumin Arterial Blood Glucose Arterial Blood Ionized Calcium Urine WBC (Auto) Vancomycin Trough 06/17/21 06/17/21 06/17/21 06:25 18:19 18:38 WBC RBC Hgb Hct MCV MCH MCHC RDW Plt Count Seg Neuts % (Manual) Lymphocytes % (Manual) Monocytes % (Manual) Nucleated RBC % Seg Neutrophils # Man Lymphocytes # (Manual) D-Dimer ABG pH 7.184 L POC ABG pCO2 65.8 H POC ABG pO2 130.5 H ABG pO2 ABG HCO3 ABG Base Excess ABG Hemoglobin 10.2 L ABG Oxyhemoglobin ABG Sodium ABG Potassium ABG Chloride 108.0 H ABG Glucose 229 H VBG pH Carboxyhemoglobin Sodium Potassium Chloride Carbon Dioxide BUN 62 H Creatinine Glucose 135 H POC Glucose 206 H Lactic Acid Calcium 7.8 L Phosphorus Magnesium Ferritin AST ALT Ammonia Lactate Dehydrogenase C-Reactive Protein Total Protein Albumin Arterial Blood Glucose 229 H Arterial Blood Ionized Calcium Urine WBC (Auto) Vancomycin Trough 06/18/21 06/18/21 06/18/21 00:29 05:15 10:56 WBC RBC Hgb Hct MCV MCH MCHC RDW Plt Count Seg Neuts % (Manual) Lymphocytes % (Manual) Monocytes % (Manual) Nucleated RBC % Seg Neutrophils # Man Lymphocytes # (Manual) D-Dimer ABG pH POC ABG pCO2 POC ABG pO2 ABG pO2 ABG HCO3 ABG Base Excess ABG Hemoglobin ABG Oxyhemoglobin ABG Sodium ABG Potassium ABG Chloride ABG Glucose VBG pH Carboxyhemoglobin Sodium Potassium Chloride Carbon Dioxide BUN Creatinine Glucose POC Glucose 142 H 152 H Lactic Acid Calcium Phosphorus 5.60 H D Magnesium Ferritin AST ALT Ammonia Lactate Dehydrogenase C-Reactive Protein Total Protein Albumin Arterial Blood Glucose Arterial Blood Ionized Calcium Urine WBC (Auto) Vancomycin Trough 06/18/21 06/18/21 Unknown Unknown WBC 4.0 L RBC 2.72 L Hgb 8.0 L Hct 24.0 L MCV MCH MCHC RDW 17.2 H Plt Count 60 L Seg Neuts % (Manual) Lymphocytes % (Manual) Monocytes % (Manual) Nucleated RBC % Seg Neutrophils # Man Lymphocytes # (Manual) D-Dimer ABG pH POC ABG pCO2 POC ABG pO2 ABG pO2 ABG HCO3 ABG Base Excess ABG Hemoglobin ABG Oxyhemoglobin ABG Sodium ABG Potassium ABG Chloride ABG Glucose VBG pH Carboxyhemoglobin Sodium 134 L D Potassium 6.0 H D Chloride Carbon Dioxide BUN 80 H Creatinine 1.8 H Glucose 395 H POC Glucose Lactic Acid Calcium 6.9 L Phosphorus Magnesium Ferritin AST < 5 L ALT < 5 L Ammonia Lactate Dehydrogenase C-Reactive Protein Total Protein 4.9 L Albumin 1.4 L Arterial Blood Glucose Arterial Blood Ionized Calcium Urine WBC (Auto) Vancomycin Trough Chest x-ray: image reviewed Allied health notes reviewed: nursing
[2021-06-18 15:17] LABS: Hematocrit 28.4 % (35.5-45.6); Hemoglobin 9.7 gm/dl (11.8-15.2); Mean Corpuscular HGB Conc 34 % (32-34); Mean Corpuscular Volume 84 fl (84-94); Platelet Count 65 K/mm3 (140-440); Red Blood Count 3.39 M/mm3 (3.65-5.03); Red Cell Distribution Width 16.3 % (13.2-15.2)
[2021-06-18] MEDS: SODIUM POLYSTYRENE 15 GM/60 ML ORAL LIQD PO SCH ×2 (15:22→17:42)
[2021-06-18 15:29] LABS: INR 1.12 (0.87-1.13)
[2021-06-18 15:30] LABS: Partial Thromboplastin Time 41.2 Sec. (24.2-36.6)
[2021-06-18] MEDS: fentaNYL DRIP Premix 2,000 MCG/100 ML BAG IV SCH (15:45)
[2021-06-18 16:14] LABS: Bacteria,Urine 4+ /HPF (Negative); Bilirubin,Urine NEG (Negative); Blood,Urine MOD (Negative); Color,Urine Yellow (Yellow); Mucus,Urine FEW /HPF; Urobilinogen,Urine < 2.0 mg/dL (<2.0)
--- NOTE | 2021-06-18 17:22 | Progress Note ---
Assessment and Plan Cultures: SARS CoV2 PCR: Positive as outpatient. Negative here x 2 05/23/2021 blood culture: no growth 05/29/2021 blood culture no growth 05/30/2021 blood culture no growth 05/30/2021 urine culture [place] 05/31/2021 blood culture no growth 06/03/2021 blood culture no growth today A/P: 55/M with initially seen on 05/23/2021 due to bilateral pneumonia with positive Covid test outpatient but negative x2 inpatient noted with new fever and repeat CT chest shows bilateral basilar pneumonia with cavitation: #Sepsis: No fever since 06/04/2021. Likely secondary to bilateral pneumonia. #Bilateral pneumonia with cavitation: ? secondary to COVID-19, tested positive as outpatient, but negative here x 2. During the last week noted elevated procalcitonin from 0.3-->24 in the setting of resolving ANGELES. Also noted CRP from 5.2-->19. CT abdomen shows severe aspiration type pneumonia in both bases with a currently 30 lesion of 20 cm on the left lower lobe. #Acute hypoxic respiratory failure: On BiPAP. Likely due to pneumonia. VQ scan low probability for PE. #Recent ileus: Resolved. #Acute renal failure: Nephrology on board. Improving. #Hypernatremia: Per primary team/ renal improving #Tachycardia #Elevated ddimer: VQ low prob for PE Recs: -Taper off of steroid -Start cefepime and metronidazole -Stop vancomycin given negative. -Given cavitation with likely abscess will plan to treat with IV in house and discharge with PO antibiotics to complete 3 weeks. -Plan to discharge on Augmentin 875/125mg q12h and Bactrim DS q12 G. Aileen Ferguson MD [facility] O: [phone] F: [phone] Subjective Date of service: 06/18/21 Principal diagnosis: Acute hypoxemic resp failure; Pneumonia; PUI COVID-19 infection Interval history: Afebrile, White count 4.4 Imaging personally reviewed: Chest x-ray no change. Objective - Exam Narrative Exam: General appearance: Alert on BiPAP Eyes: anicteric sclerae, moist conjunctivae; no lid-lag; PERRLA HENT: Normocephalic, Atraumatic; normal external ears, nares open, oropharynx limited Neck: supple, tracheal midline, no JVD Lungs: Rhonchi CV: RRR no murmur Abdomen: Soft, non-tender; no masses or hepatosplenomegaly Extremities: no edema, no cyanosis Skin: No rash. Psych: no agitated Neuro: alert follows commands - Constitutional Vitals: Vital Signs Temp Pulse Resp BP Pulse Ox 99.5 F 136 H 26 H 127/69 98 06/18/21 16:00 06/18/21 15:01 06/18/21 15:01 06/18/21 15:01 06/18/21 15:01 Temperature -Last 24 Hours Temperature 99.5 F Temperature 99.6 F Temperature 98.7 F Temperature 98.8 F Temperature 98.8 F Temperature 99.8 F - Labs CBC & Chem 7: 06/18/21 Unknown 06/18/21 Unknown Labs: Abnormal lab results 06/17/21 06/17/21 06/18/21 Range/Units 18:19 18:38 00:29 WBC (4.5-11.0) K/mm3 RBC (3.65-5.03) M/mm3 Hgb (11.8-15.2) gm/dl Hct (35.5-45.6) % RDW (13.2-15.2) % Plt Count (140-440) K/mm3 PT (12.2-14.9) Sec. APTT (24.2-36.6) Sec. ABG pH 7.184 L (7.320-7.450) POC ABG pCO2 65.8 H (32.0-48.0) mmHg POC ABG pO2 130.5 H (83-108) mmHg ABG Hemoglobin 10.2 L (12.0-17.5) ABG Chloride 108.0 H (98-107) mmol/L ABG Glucose 229 H (65-95) mg/dL Sodium (137-145) mmol/L Potassium (3.6-5.0) mmol/L BUN (9-20) mg/dL Creatinine (0.8-1.3) mg/dL Glucose (75-100) mg/dL POC Glucose 206 H 142 H (70-105) mg/dL Calcium (8.4-10.2) mg/dL Phosphorus (2.5-4.5) mg/dL AST (5-40) units/L ALT (7-56) units/L Total Protein (6.3-8.2) g/dL Albumin (3.9-5) g/dL Arterial Blood Glucose 229 H (65-95) mg/dL Urine WBC (Auto) (0.0-6.0) /HPF 06/18/21 06/18/21 06/18/21 Range/Units 05:15 10:56 15:02 WBC 4.4 L (4.5-11.0) K/mm3 RBC 3.39 L (3.65-5.03) M/mm3 Hgb 9.7 L (11.8-15.2) gm/dl Hct 28.4 L (35.5-45.6) % RDW 16.3 H (13.2-15.2) % Plt Count 65 L (140-440) K/mm3 PT (12.2-14.9) Sec. APTT (24.2-36.6) Sec. ABG pH (7.320-7.450) POC ABG pCO2 (32.0-48.0) mmHg POC ABG pO2 (83-108) mmHg ABG Hemoglobin (12.0-17.5) ABG Chloride (98-107) mmol/L ABG Glucose (65-95) mg/dL Sodium (137-145) mmol/L Potassium (3.6-5.0) mmol/L BUN (9-20) mg/dL Creatinine (0.8-1.3) mg/dL Glucose (75-100) mg/dL POC Glucose 152 H (70-105) mg/dL Calcium (8.4-10.2) mg/dL Phosphorus 5.60 H D (2.5-4.5) mg/dL AST (5-40) units/L ALT (7-56) units/L Total Protein (6.3-8.2) g/dL Albumin (3.9-5) g/dL Arterial Blood Glucose (65-95) mg/dL Urine WBC (Auto) (0.0-6.0) /HPF 06/18/21 06/18/21 06/18/21 Range/Units 15:02 15:02 Unknown WBC 4.0 L (4.5-11.0) K/mm3 RBC 2.72 L (3.65-5.03) M/mm3 Hgb 8.0 L (11.8-15.2) gm/dl Hct 24.0 L (35.5-45.6) % RDW 17.2 H (13.2-15.2) % Plt Count 60 L (140-440) K/mm3 PT 15.6 H (12.2-14.9) Sec. APTT 41.2 H (24.2-36.6) Sec. ABG pH (7.320-7.450) POC ABG pCO2 (32.0-48.0) mmHg POC ABG pO2 (83-108) mmHg ABG Hemoglobin (12.0-17.5) ABG Chloride (98-107) mmol/L ABG Glucose (65-95) mg/dL Sodium (137-145) mmol/L Potassium (3.6-5.0) mmol/L BUN (9-20) mg/dL Creatinine 2.0 H (0.8-1.3) mg/dL Glucose (75-100) mg/dL POC Glucose (70-105) mg/dL Calcium (8.4-10.2) mg/dL Phosphorus (2.5-4.5) mg/dL AST (5-40) units/L ALT (7-56) units/L Total Protein (6.3-8.2) g/dL Albumin (3.9-5) g/dL Arterial Blood Glucose (65-95) mg/dL Urine WBC (Auto) (0.0-6.0) /HPF 06/18/21 06/18/21 Range/Units Unknown Unknown WBC (4.5-11.0) K/mm3 RBC (3.65-5.03) M/mm3 Hgb (11.8-15.2) gm/dl Hct (35.5-45.6) % RDW (13.2-15.2) % Plt Count (140-440) K/mm3 PT (12.2-14.9) Sec. APTT (24.2-36.6) Sec. ABG pH (7.320-7.450) POC ABG pCO2 (32.0-48.0) mmHg POC ABG pO2 (83-108) mmHg ABG Hemoglobin (12.0-17.5) ABG Chloride (98-107) mmol/L ABG Glucose (65-95) mg/dL Sodium 134 L D (137-145) mmol/L Potassium 6.0 H D (3.6-5.0) mmol/L BUN 80 H (9-20) mg/dL Creatinine 1.8 H (0.8-1.3) mg/dL Glucose 395 H (75-100) mg/dL POC Glucose (70-105) mg/dL Calcium 6.9 L (8.4-10.2) mg/dL Phosphorus (2.5-4.5) mg/dL AST < 5 L (5-40) units/L ALT < 5 L (7-56) units/L Total Protein 4.9 L (6.3-8.2) g/dL Albumin 1.4 L (3.9-5) g/dL Arterial Blood Glucose (65-95) mg/dL Urine WBC (Auto) 10.0 H (0.0-6.0) /HPF
[2021-06-18] MEDS ORDERED: SODIUM CHLORIDE 0.9% 500 ML 500 ML ONE (19:51)
[2021-06-18] MEDS ORDERED: SODIUM CHLORIDE 0.9% 500 ML 500 ML IV ONE (21:00)
[2021-06-18] MEDS ORDERED: NORepinephrine/NS 8 MG-250 ML 8 MG/250 ML INFUS..BTL IV ONE (21:13)
[2021-06-18] MEDS: NORepinephrine/NS 8 MG-250 ML 8 MG/250 ML INFUS..BTL IV SCH (21:13)
[2021-06-18] MEDS: IPRATROPIUM/ALBUTEROL SULFATE 3 ML AMPUL.NEB IH SCH ×2 (21:19→21:20)
[2021-06-18] MEDS: APIXABAN 2.5 MG TAB PO SCH (21:24)
[2021-06-19] MEDS: fentaNYL DRIP Premix 2,000 MCG/100 ML BAG IV SCH ×2 (03:39→17:47)
--- NOTE | 2021-06-19 05:22 | XRay Report ---
CHEST 1 VIEW 06/19/2021 3:42 AM INDICATION / CLINICAL INFORMATION: follow up respiratory failure. COMPARISON: 06/18/2021 FINDINGS: SUPPORT DEVICES: Lines and tubes again project in expected position HEART / MEDIASTINUM: No significant abnormality. LUNGS / PLEURA: Severe bilateral pulmonary infiltrates, unchanged with cavitary process left lower lo be No pneumothorax. ADDITIONAL FINDINGS: No significant additional findings. IMPRESSION: 1. Severe bilateral pneumonia with cavitary process left lower lobe again noted Signer Name: Soham Dodson MD Signed: 06/19/2021 5:17 AM Workstation Name: [id number]
[2021-06-19 05:34] LABS: Calcium 7.4 mg/dL (8.4-10.2)
[2021-06-19] MEDS: CEFEPIME/NS 2 GM/100 ML 2 GM/100 ML BAG IV SCH (05:44)
[2021-06-19] MEDS ORDERED: SODIUM CHLORIDE 0.9% 500 ML 500 ML ONE (08:51)
[2021-06-19 09:08] LABS: Hematocrit 24.4 % (35.5-45.6); Hemoglobin 7.9 gm/dl (11.8-15.2); Mean Corpuscular HGB Conc 32 % (32-34); Mean Corpuscular Volume 84 fl (84-94); Red Blood Count 2.91 M/mm3 (3.65-5.03); Red Cell Distribution Width 16.5 % (13.2-15.2)
--- NOTE | 2021-06-19 09:13 | Progress Note ---
Assessment and Plan Assessment and plan: #Acute hypoxic respiratory failure #Moderate ARDS #Respiratory acidosis -Intubated on 06/27 -Vent settings: A/C tidal volume 400, rate 30, PEEP 10, FiO2 45% -P/F ratio 166 -continue Solu-Medrol -Pulmonary consulted, recs appreciated #Severe sepsis with shock -pressors started overnight (Norepinephrine @ 3mcg); maintain MAP >65 -will give bolus IVFs and start maintenance fluids -Febrile, PRN Tylenol -tachycardia -Repeat blood cultures ordered 06/17: NGTD x24hrs -urine culture pending -Likely source PNA/abscess #ANGELES -SCr steadily increased over the last few days, now 3.2 -FENa 2.7% indicative of intrinsic cause; likely due to ATN -appreciate Nephrology assistance #Elevated troponin -troponin 0.105, will repeat -EKG with T wave depressions; Cardiology consulted, recs appreciated #COVID-19 pneumonia #Aspiration pneumonia #Left lower lobe abscess -Seen on CT abdomen pelvis and chest: Approximately 5 x 6 cm -continue cefepime and Flagyl per ID recommendations -vancomycin discontinued -Will require antibiotic treatment for 3 weeks total #Hyperkalemia -resolved, K 4.8 -continue to monitor #Nutrition -TF at 40cc/hr currently -Nutrition following, assistance appreciated #Goals of care -Discussed with family recent updates, will like to continue FULL CODE for now. Will continue to discuss. Resolved problems: #Hypernatremia #Acute encephalopathy #Ileus #Lactic acidosis Disposition Plan: Continue medical management Total Time Spent with Patient (Minutes): 40 minutes History Interval history: Patient started on pressors overnight. Per nursing also had melenic stools. Still intubated. Hospitalist Physical - Physical exam Narrative exam: GENERAL: Thin male. Intubated and mechanically ventilated. HEENT: ETT and CURT in place CHEST/LUNGS: Coarse breath sounds bilaterally. HEART/CARDIOVASCULAR: Tachycardic. No murmur, rubs or gallops appreciated. ABDOMEN: +BS. ND. :+Heart cath EXTREMITIES: No cyanosis, clubbing or edema appreciated. - Constitutional Vitals: Temp Pulse Resp BP Pulse Ox 100.1 F H 134 H 29 H 126/64 96 06/19/21 08:00 06/19/21 08:05 06/19/21 08:05 06/19/21 08:05 06/19/21 08:05 General appearance: Present: no acute distress, cachectic HEART Score - HEART Score EKG: Non-specific Age: 45-65 Risk factors: 1-2 risk factors Troponin: Troponin T < 0.010 ng/mL (0.00-0.029) 05/23/21 18:48 - Critical Actions Critical Actions: 0-3 pts:0.9-1.7%risk of adverse cardiac event.Candidate for discharge Results - Labs CBC & Chem 7: 06/19/21 08:55 06/19/21 09:41 Labs: Laboratory Last Values WBC 4.0 K/mm3 (4.5-11.0) L 06/18/21 Unknown RBC 2.72 M/mm3 (3.65-5.03) L 06/18/21 Unknown Hgb 8.0 gm/dl (11.8-15.2) L 06/18/21 Unknown Hct 24.0 % (35.5-45.6) L 06/18/21 Unknown MCV 88 fl (84-94) 06/18/21 Unknown MCH 29 pg (28-32) 06/18/21 Unknown MCHC 33 % (32-34) 06/18/21 Unknown RDW 17.2 % (13.2-15.2) H 06/18/21 Unknown Plt Count 60 K/mm3 (140-440) L 06/18/21 Unknown Lymph % (Auto) Stone Finisher 06/01/21 07:10 [place] % (Auto) Stone Finisher 06/01/21 07:10 Eos % (Auto) Stone Finisher 06/01/21 07:10 Baso % (Auto) [employer] Finisher 06/01/21 07:10 Lymph # (Auto) Stone Finisher 06/01/21 07:10 [place] # (Auto) Stone Finisher 06/01/21 07:10 Eos # (Auto) Stone Finisher 06/01/21 07:10 Baso # (Auto) Stone Finisher 06/01/21 07:10 Add Manual Diff Complete 06/17/21 06:25 Total Counted 100 06/17/21 06:25 Seg Neutrophils % Stone Finisher 06/17/21 06:25 Seg Neuts % (Manual) 95.0 % (40.0-70.0) H 06/17/21 06:25 Band Neutrophils % 2.0 % 06/17/21 06:25 Lymphocytes % (Manual) 1.0 % (13.4-35.0) L 06/15/21 05:53 Reactive Lymphs % (Man) 1.0 % 06/01/21 07:10 Monocytes % (Manual) 3.0 % (0.0-7.3) 06/17/21 06:25 Myelocytes % 1.0 % 06/13/21 06:05 Nucleated RBC % Not Reportable 06/17/21 06:25 Seg Neutrophils # Stone Finisher 06/01/21 07:10 Seg Neutrophils # Man 4.2 K/mm3 (1.8-7.7) 06/17/21 06:25 Band Neutrophils # 0.1 K/mm3 06/17/21 06:25 Lymphocytes # (Manual) 0.0 K/mm3 (1.2-5.4) L 06/17/21 06:25 Abs React Lymphs (Man) 0.0 K/mm3 06/17/21 06:25 Monocytes # (Manual) 0.1 K/mm3 (0.0-0.8) 06/17/21 06:25 Eosinophils # (Manual) 0.0 K/mm3 (0.0-0.4) 06/17/21 06:25 Basophils # (Manual) 0.0 K/mm3 (0.0-0.1) 06/17/21 06:25 Metamyelocytes # 0.0 K/mm3 06/17/21 06:25 Myelocytes # 0.0 K/mm3 06/17/21 06:25 Promyelocytes # 0.0 K/mm3 06/17/21 06:25 Blast Cells # 0.0 K/mm3 06/17/21 06:25 WBC Morphology Not Reportable 06/17/21 06:25 Hypersegmented Neuts Not Reportable 06/17/21 06:25 Hyposegmented Neuts Not Reportable 06/17/21 06:25 Hypogranular Neuts Not Reportable 06/17/21 06:25 Smudge Cells Not Reportable 06/17/21 06:25 Toxic Granulation Not Reportable 06/17/21 06:25 Toxic Vacuolation Not Reportable 06/17/21 06:25 Dohle Bodies Not Reportable 06/17/21 06:25 Pelger-Huet Anomaly Not Reportable 06/17/21 06:25 Kaci Rods Not Reportable 06/17/21 06:25 Platelet Estimate Consistent w auto 06/17/21 06:25 Clumped Platelets Not Reportable 06/17/21 06:25 Plt Clumps, EDTA Not Reportable 06/17/21 06:25 Large Platelets Not Reportable 06/17/21 06:25 Giant Platelets Not Reportable 06/17/21 06:25 Platelet Satelliting Not Reportable 06/17/21 06:25 Plt Morphology Comment Not Reportable 06/17/21 06:25 RBC Morphology Normal 06/17/21 06:25 Dimorphic RBCs Not Reportable 06/17/21 06:25 Polychromasia Not Reportable 06/17/21 06:25 Hypochromasia Not Reportable 06/17/21 06:25 Poikilocytosis Not Reportable 06/17/21 06:25 Anisocytosis Not Reportable 06/17/21 06:25 Microcytosis Not Reportable 06/17/21 06:25 Macrocytosis Not Reportable 06/17/21 06:25 Spherocytes Not Reportable 06/17/21 06:25 Pappenheimer Bodies Not Reportable 06/17/21 06:25 Sickle Cells Not Reportable 06/17/21 06:25 Target Cells Not Reportable 06/17/21 06:25 Tear Drop Cells Not Reportable 06/17/21 06:25 Ovalocytes Not Reportable 06/17/21 06:25 Helmet Cells Not Reportable 06/17/21 06:25 [place]-Thoreau Bodies Not Reportable 06/17/21 06:25 [place] Rings Not Reportable 06/17/21 06:25 [place] Cells Not Reportable 06/17/21 06:25 Bite Cells Not Reportable 06/17/21 06:25 Crenated Cell Not Reportable 06/17/21 06:25 Elliptocytes Not Reportable 06/17/21 06:25 Acanthocytes (Spur) Not Reportable 06/17/21 06:25 Rouleaux Not Reportable 06/17/21 06:25 Hemoglobin C Crystals Not Reportable 06/17/21 06:25 Schistocytes Not Reportable 06/17/21 06:25 Malaria parasites Not Reportable 06/17/21 06:25 Dick Bodies Not Reportable 06/17/21 06:25 Hem Pathologist Commnt No 06/17/21 06:25 PT 15.6 Sec. (12.2-14.9) H 06/18/21 15:02 INR 1.12 (0.87-1.13) 06/18/21 15:02 APTT 41.2 Sec. (24.2-36.6) H 06/18/21 15:02 D-Dimer 3584.01 ng/mlDDU (0-234) H 05/27/21 08:09 ABG pH 7.270 (7.320-7.450) L 06/19/21 02:41 POC ABG pCO2 49.0 mmHg (32.0-48.0) H 06/19/21 02:41 ABG pCO2 29.0 mm Hg 05/30/21 22:32 POC ABG pO2 100.4 mmHg (83-108) 06/19/21 02:41 ABG pO2 141.8 mm Hg (80.0-90.0) H 05/30/21 22:32 POC ABG HCO3 22.0 06/19/21 02:41 ABG HCO3 19.9 mmol/L (20.0-26.0) L 05/30/21 22:32 ABG O2 Saturation 96.8 (0-100) 06/19/21 02:41 ABG O2 Content 19.9 (0.0-44) 05/30/21 22:32 POC ABG Base Excess -4.8 06/19/21 02:41 ABG Base Excess -2.7 mmol/L (-2.0-3.0) L 05/30/21 22:32 ABG Hemoglobin 8.8 (12.0-17.5) L 06/19/21 02:41 ABG Oxyhemoglobin 95.5 (94-98) 06/19/21 02:41 ABG Carboxyhemoglobin 1.1 % (0.0-5.0) 05/30/21 22:32 ABG Methemoglobin 0.3 (0.0-1.5) 06/19/21 02:41 ABG Sodium 142.2 mmol/L (136.0-145.0) 06/19/21 02:41 ABG Potassium 4.5 mmol/L (3.40-4.50) 06/19/21 02:41 ABG Chloride 111.0 mmol/L (98-107) H 06/19/21 02:41 ABG Glucose 110 mg/dL (65-95) H 06/19/21 02:41 VBG pH 7.254 (7.320-7.420) L 05/24/21 02:09 Oxyhemoglobin 97.1 % (95.0-99.0) 05/30/21 22:32 Carboxyhemoglobin 1.0 (0.5-1.5) 06/19/21 02:41 FiO2 70 % 05/30/21 22:32 FiO2 % 60.0 06/19/21 02:41 Sodium 144 mmol/L (137-145) D 06/19/21 04:53 Potassium 4.8 mmol/L (3.6-5.0) 06/19/21 04:53 Chloride 106.4 mmol/L (98-107) 06/19/21 04:53 Carbon Dioxide 22 mmol/L (22-30) 06/19/21 04:53 Anion Gap 20 mmol/L 06/19/21 04:53 BUN 92 mg/dL (9-20) H 06/19/21 04:53 Creatinine 3.2 mg/dL (0.8-1.3) H D 06/19/21 04:53 Estimated GFR 25 ml/min 06/19/21 04:53 BUN/Creatinine Ratio 29 % 06/19/21 04:53 Glucose 123 mg/dL (75-100) H 06/19/21 04:53 POC Glucose 114 mg/dL (70-105) H 06/19/21 05:37 Lactic Acid 1.20 mmol/L (0.7-2.0) 06/06/21 00:04 Calcium 7.4 mg/dL (8.4-10.2) L 06/19/21 04:53 Phosphorus 5.60 mg/dL (2.5-4.5) H D 06/18/21 10:56 Magnesium 2.30 mg/dL (1.7-2.3) 06/18/21 10:56 Ferritin 2742.0 ng/mL (30.0-300.0) H 05/27/21 08:09 Total Bilirubin 0.30 mg/dL (0.1-1.2) 06/18/21 Unknown AST < 5 units/L (5-40) L 06/18/21 Unknown ALT < 5 units/L (7-56) L 06/18/21 Unknown Alkaline Phosphatase 102 units/L (35-129) 06/18/21 Unknown Ammonia 22.0 umol/L (25-60) L 05/23/21 18:48 Lactate Dehydrogenase 642 units/L (91-180) H 05/27/21 08:09 Troponin T < 0.010 ng/mL (0.00-0.029) 05/23/21 18:48 C-Reactive Protein 4.10 mg/dL (0.00-1.30) H 06/09/21 05:51 Total Protein 4.9 g/dL (6.3-8.2) L 06/18/21 Unknown Albumin 1.4 g/dL (3.9-5) L 06/18/21 Unknown Albumin/Globulin Ratio 0.4 % 06/18/21 Unknown Procalcitonin 19.60 ng/mL (<0.15) 06/18/21 Unknown TSH 1.150 mlU/mL (0.270-4.200) 05/23/21 18:48 Arterial Blood Glucose 110 mg/dL (65-95) H 06/19/21 02:41 Arterial Blood Ionized Calcium 4.5 mg/dL (4.6-5.3) L 05/29/21 17:58 Urine Color Yellow (Yellow) 06/18/21 Unknown Urine Turbidity Cloudy (Clear) 06/18/21 Unknown Urine pH 5.0 (5.0-7.0) 06/18/21 Unknown Ur Specific [place] 1.012 (1.003-1.030) 06/18/21 Unknown Urine Protein 30 mg/dl mg/dL (Negative) 06/18/21 Unknown Urine Glucose (UA) Neg mg/dL (Negative) 06/18/21 Unknown Urine Ketones Neg mg/dL (Negative) 06/18/21 Unknown Urine Blood Mod (Negative) 06/18/21 Unknown Urine Nitrite Neg (Negative) 06/18/21 Unknown Urine Bilirubin Neg (Negative) 06/18/21 Unknown Urine Urobilinogen < 2.0 mg/dL (<2.0) 06/18/21 Unknown Ur Leukocyte Esterase Neg (Negative) 06/18/21 Unknown Urine WBC (Auto) 10.0 /HPF (0.0-6.0) H 06/18/21 Unknown Urine RBC (Auto) 76.0 /HPF (0.0-6.0) 06/18/21 Unknown U Epithel Cells (Auto) 2.0 /HPF (0-13.0) 05/30/21 01:00 Urine Bacteria (Auto) 4+ /HPF (Negative) 06/18/21 Unknown Uric Acid Crystals Few 05/30/21 01:00 Urine Mucus Few /HPF 06/18/21 Unknown Ur Yeast w Hyphae 2+ /HPF 06/18/21 Unknown Urine Yeast (Budding) 3+ /HPF 06/18/21 Unknown Nasal Screen MRSA (PCR) Negative (Negative) 06/15/21 Unknown Vancomycin Trough 18.1 ug/mL (5.0-20.0) 06/16/21 22:30 Plasma/Serum Alcohol < 0.01 % (0-0.07) 05/23/21 18:48 Proteinase 3 (PR3) Ab <1.0 AI (<1.0) 05/24/21 20:57 Myeloperoxidase Ab <1.0 AI (<1.0) 05/24/21 20:57 Complement C3 108 mg/dL (82-185) 05/24/21 20:57 Complement C4 29 mg/dL (15-53) 05/24/21 20:57 Coronavirus (PCR) Negative (Negative) 05/26/21 08:41 Blood Type A POSITIVE 05/29/21 08:15 Antibody Screen Negative 05/29/21 08:15 Microbiology: Microbiology 06/17/21 13:15 Peripheral/Venous Blood Culture - Preliminary NO GROWTH AFTER 24 HOURS 06/17/21 13:48 Peripheral/Venous Blood Culture - Preliminary NO GROWTH AFTER 24 HOURS Heart/IV: Voiding Method Condom Catheter Active Medications - Current Medications Current Medications: Generic Name Dose Route Start Last Admin Trade Name Freq PRN Reason Stop Dose Admin Acetaminophen 650 mg 06/15/21 21:13 06/17/21 13:21 Acetaminophen 650 Mg Rect Supp NV 650 mg Q6H PRN Administration Pain MILD(1-3)/Fever >100.5/LUCAS Albuterol/Ipratropium 1 ampul 06/07/21 20:00 06/18/21 21:20 Ipratropium/Albuterol Sulfate 3 Ml Ampul.Neb IH 1 ampul TIDRT MIKE Administration Lipase/Protease/Amylase 1 each 06/18/21 12:21 Lipase 10,500/Protease 25,000/Amylase 43,750 (Units) Dr Cap FEEDTUBE PRN PRN For Clogged Feeding Tube Apixaban 2.5 mg 06/18/21 22:00 06/18/21 21:24 Apixaban 2.5 Mg Tab PO 2.5 mg Q12HR MIKE Administration Protocol Famotidine 10 mg 06/19/21 10:00 Famotidine 20 Mg/2 Ml Inj IV BID MIKE Fentanyl 50 mcg 06/17/21 17:00 Fentanyl 100 Mcg/2 Ml Inj IV Q10MIN PRN ANALGESIA Hydrophilic Ointment 1 applic 06/17/21 17:00 Lip Therapy Vaseline TP Q2HR PRN Dry Lips Metronidazole 500 mg in 100 mls @ 100 mls/hr 06/08/21 13:00 06/18/21 12:41 Flagyl 500 Mg/100 Ml IV 06/29/21 05:59 100 mls/hr Q8H MIKE Administration Protocol Fentanyl Citrate 2,000 mcg in 100 mls @ 3.725 mls/hr 06/17/21 17:00 06/19/21 04:38 Fentanyl Drip Premix IV 2 mcg/kg/hr TITR MIKE 7.45 mls/hr Titration Protocol 1 MCG/KG/HR NORepinephrine/NS 8 MG-250 ML 8 mg in 250 mls @ 3.75 mls/hr 06/18/21 23:00 06/19/21 06:11 Norepinephrine/Ns 8 Mg-250 Ml (Double Conc) IV 3 mcg/min TITRATE MIKE 5.625 mls/hr Titration Protocol 2 MCG/MIN Cefepime HCl 2 gm in 100 mls @ 200 mls/hr 06/20/21 06:00 Cefepime/Ns 2 Gm/100 Ml IV 06/29/21 06:29 Q24H [facility] Protocol Methylprednisolone Sodium Succinate 10 mg 06/16/21 10:00 06/18/21 21:25 Methylprednisolone Sod Succinate 40 Mg/1 Ml Inj IV 10 mg Q12HR MIKE Administration Morphine Sulfate 2 mg 05/23/21 22:01 06/17/21 10:01 Morphine 2 Mg/1 Ml Inj IV 2 mg Q4H PRN Administration Pain, Moderate (4-6) Multi-Ingred Cream/Lotion/Oil/Oint 1 applic 06/17/21 18:00 Mineral Oil/Petrolatum, White Ophth Oint 3.5 Gm OU Q4HR PRN Dry Eye(s) Ondansetron HCl 4 mg 06/04/21 13:41 06/09/21 22:05 Ondansetron 4 Mg/2 Ml Inj IV 4 mg Q4H PRN Administration Nausea And Vomiting Senna/Docusate Sodium 1 tab 06/17/21 22:00 06/18/21 21:25 Sennosides/Docusate Sodium 8.6/50 Mg Tab FEEDTUBE 1 tab BID MIKE Administration Simple Syrup 15 ml 06/18/21 12:21 Simple Syrup 15 Ml FEEDTUBE PRN PRN Hypoglycemia Simple Syrup 30 ml 06/18/21 12: Simple Syrup 15 Ml FEEDTUBE PRN PRN Hypoglycemia Sodium Bicarbonate 325 mg 06/18/21 12: Sodium Bicarbonate 325 Mg Tab FEEDTUBE PRN PRN For Clogged Feeding Tube Sodium Chloride 10 ml 05/23/21 22:01 06/15/21 22:15 Sodium Chloride 0.9% 10 Ml Flush Syringe IV 10 ml PRN PRN Administration LINE FLUSH Nutrition/Malnutrition Assess - Dietary Evaluation Nutrition/Malnutrition Findings: Nutrition Notes Start: 05/25/21 09:33 Freq: Status: Active Protocol: Document 06/18/21 10:19 MONTEZ (Rec: 06/18/21 12:30 MONTEZ [email or web address]) Nutrition Notes Need for Assessment generated from: MD Order Initial or Follow up Reassessment Current Diagnosis Respiratory Failure Other Pertinent Diagnosis Accute Kidney Injury, Pneumonia, PUI Covid-19. Current Diet TPN; via PICC, discontinued. Tube Feeding Nepro (since L ). Labs/Tests 06/18: Na 134, K 6.0, BUN 80, Glu 395, Phos 3.5 (06/17), Ca 6.9, Platelets 60. Pertinent Medications 06/17: Nutritionally unremarkable. Height 5 ft 11 in Weight 74.5 kg [place] Body Weight (kg) 78.18 BMI 22.8 Weight Status Appropriate Subjective/Other Information TPN discontinued, Pt intubated , ready to resume Tube Feeding . Percent of energy/protein needs met: 96.6% (EER= 1,863 Kcal/day)/ 100% (ProER= 312-376 Kcal/day) . Burn Absent Trauma Absent GI Symptoms Constipation Food Allergy No Skin Integrity/Comment Integumentary; clear, warm dry . Current % PO Other Minimum of two criteria No physical signs of malnutrition #2 Nutrition Diagnosis No nutrition diagnosis at this time Comments: Not report on Integumentary concerns, as per progress notes 06/15 to 06/18. Diagnosis Progress(for reassessment Improved documentation) #1 Nutrition Diagnosis Inadequate oral intake Comments: Nutritional supplement beverage ordered 06/03: TF ordered 06/09: diet advanced to mechanical soft, thin liquids. Tolerating well 06/14 d/t continuous Bipap requiring TPN 06/17 TPN continues 06/18 TPN continues 06/18 Tube Feeding resumes Etiology acute illness As Evidenced by Signs and Symptoms PO intake 0% Diagnosis Progress(for reassessment Worsened documentation) Is patient on ventilator? Yes Is Patient Ambulatory and/or Out of Bed No REE-([place]-confined to bed) 1926.936 Kcal/Kg value to use for calculation 25 Approximate Energy Requirements Using 1863 kcal/Kg Calculation Used for Recommendations Kcal/kg Additional Notes protein needs: 1.0-1.2 g/Kg/ day; 78-94 gr/day; 312-376 Kcal/day (from IBW). fluid needs: 1.0 ml/kcal, or as per MD. Nutrition Intervention Change Diet Order: Discontinue TPN. Start Tube Feeding. Nutrition Support: Nepro 1,000 ml @ 41 ml/hr. Flush: 190 ml Q 4hr. Or as per MD. Kcal 1,800 Protein (gm) 81 Carbohydrates (gm) 161 Fat (gm) 96 Fluid (mL) 727 Fiber (gm) 13 % RDI: 96.6% Kcal, 100% protein Goal #1 Maintain body weight within +/ -3% of current BWt during LOS. Goal #2 Reach and maintain acceptable chemistry lab values during LOS. Follow-Up By: 06/20/21 Additional Comments Continue monitoring for tolerance of tube feeding, Hydration, and BM.
[2021-06-19] MEDS: IPRATROPIUM/ALBUTEROL SULFATE 3 ML AMPUL.NEB IH SCH ×2 (09:16→13:13)
--- NOTE | 2021-06-19 09:39 | Progress Note ---
Assessment and Plan Impression: * Acute kidney injury secondary to ATN likely related to COVID 19 * Acute hypoxic respiratory failure secondary to COVID 19 PNA * Azotemia * Hyperkalemia * Metabolic acidosis * Hypernatremia Plan: * creatinine is stable 1.2->1.4->1.2->1.1->1.2->1.3->1.3 > 1.4 > 1.3> 1.8 > 3.2 * Vasculitis work-up negative, including ANCA as well as complement levels. * Keep MAP>65 * Management of COVID 19 PNA to primary team/ID * Dose medications for renal function * AM labs * Renal diet * follow up lytes prn * Prognosis guarded * His renal function seems to be getting worse. His urine shows 1+ dipstick protein and moderate blood. Urine output is also declining. Patient may have progressed to ATN. * Follow-up results of fractional excretion of sodium. Shall give him fluid bolus and hydrate him. Chest x-ray shows bilateral pulmonary infiltrate. * Hyperkalemia has been corrected. * No urgent indication for dialysis today. However if his renal function does not improve patient may need renal replacement therapy in the next 24 to 48 hours Subjective Date of service: 06/19/21 Principal diagnosis: Acute hypoxemic resp failure; Pneumonia; PUI COVID-19 infection Interval history: Patient remains on the ventilator. Currently on 50% FiO2. Unresponsive. He is currently on Levophed drip as well Objective - Vital Signs Vital signs: Vital Signs - 12hr 06/18/21 06/18/21 06/18/21 21:41 21:45 21:50 Temperature Pulse Rate 128 H 134 H Pulse Rate [ From Monitor] Respiratory 24 29 H Rate Blood Pressure 123/66 123/66 154/79 O2 Sat by Pulse 94 Oximetry 06/18/21 06/18/21 06/18/21 21:55 22:00 22:05 Temperature Pulse Rate 138 H 139 H 134 H Pulse Rate [ 100 H From Monitor] Respiratory 32 H 31 H 32 H Rate Blood Pressure 154/79 144/81 144/81 O2 Sat by Pulse 95 97 97 Oximetry 06/18/21 06/18/21 06/18/21 22:10 22:15 22:20 Temperature Pulse Rate 139 H 134 H 135 H Pulse Rate [ From Monitor] Respiratory 34 H 34 H 32 H Rate Blood Pressure 117/63 117/63 120/69 O2 Sat by Pulse 98 98 96 Oximetry 06/18/21 06/18/21 06/18/21 22:25 22:30 22:35 Temperature Pulse Rate 134 H 136 H 135 H Pulse Rate [ From Monitor] Respiratory 25 H 30 H 32 H Rate Blood Pressure 120/69 119/70 154/79 O2 Sat by Pulse 97 94 97 Oximetry 06/18/21 06/18/21 06/18/21 22:40 22:45 22:50 Temperature Pulse Rate 134 H 135 H 135 H Pulse Rate [ From Monitor] Respiratory 32 H 30 H 29 H Rate Blood Pressure 119/65 119/65 105/65 O2 Sat by Pulse 95 97 94 Oximetry 06/18/21 06/18/21 06/18/21 22:55 23:00 23:05 Temperature Pulse Rate 135 H 136 H 136 H Pulse Rate [ From Monitor] Respiratory 30 H 32 H 29 H Rate Blood Pressure 105/65 101/68 101/68 O2 Sat by Pulse 97 94 97 Oximetry 06/18/21 06/18/21 06/18/21 23:10 23:13 23:15 Temperature Pulse Rate 136 H 136 H 136 H Pulse Rate [ From Monitor] Respiratory 30 H 30 H 30 H Rate Blood Pressure 120/66 120/66 120/66 O2 Sat by Pulse 95 97 97 Oximetry 06/18/21 06/18/21 06/18/21 23:20 23:25 23:30 Temperature Pulse Rate 134 H 134 H 134 H Pulse Rate [ From Monitor] Respiratory 32 H 30 H 30 H Rate Blood Pressure 120/62 120/62 119/73 O2 Sat by Pulse 95 99 93 Oximetry 06/18/21 06/18/21 06/18/21 23:35 23:40 23:45 Temperature Pulse Rate 133 H 132 H 132 H Pulse Rate [ From Monitor] Respiratory 30 H 30 H 29 H Rate Blood Pressure 119/73 117/65 117/65 O2 Sat by Pulse 97 94 98 Oximetry 06/18/21 06/18/21 06/18/21 23:49 23:50 23:55 Temperature 98.8 F Pulse Rate 132 H 133 H Pulse Rate [ From Monitor] Respiratory 30 H 30 H Rate Blood Pressure 131/64 131/64 O2 Sat by Pulse 94 99 Oximetry 06/19/21 06/19/21 06/19/21 00:00 00:05 00:10 Temperature Pulse Rate 134 H 133 H 132 H Pulse Rate [ From Monitor] Respiratory 30 H 31 H 29 H Rate Blood Pressure 119/63 131/64 113/67 O2 Sat by Pulse 95 98 96 Oximetry 06/19/21 06/19/21 06/19/21 00:15 00:20 00:25 Temperature Pulse Rate 133 H 133 H 133 H Pulse Rate [ From Monitor] Respiratory 29 H 29 H 30 H Rate Blood Pressure 113/67 118/62 118/62 O2 Sat by Pulse 98 95 99 Oximetry 06/19/21 06/19/21 06/19/21 00:30 00:35 00:40 Temperature Pulse Rate 133 H 133 H 132 H Pulse Rate [ From Monitor] Respiratory 31 H 28 H 28 H Rate Blood Pressure 123/66 123/66 122/63 O2 Sat by Pulse 95 98 94 Oximetry 06/19/21 06/19/21 06/19/21 00:45 00:50 00:55 Temperature Pulse Rate 120 H 132 H 131 H Pulse Rate [ From Monitor] Respiratory 2 L 31 H 31 H Rate Blood Pressure 121/59 115/62 115/62 O2 Sat by Pulse 96 96 99 Oximetry 06/19/21 06/19/21 06/19/21 01:00 01:05 01:10 Temperature Pulse Rate 129 H 130 H 130 H Pulse Rate [ From Monitor] Respiratory 23 25 H 30 H Rate Blood Pressure 112/62 112/62 120/63 O2 Sat by Pulse 95 99 94 Oximetry 06/19/21 06/19/21 06/19/21 01:15 01:20 01:25 Temperature Pulse Rate 130 H 130 H 130 H Pulse Rate [ From Monitor] Respiratory 28 H 28 H 31 H Rate Blood Pressure 120/63 116/62 116/62 O2 Sat by Pulse 98 95 99 Oximetry 06/19/21 06/19/21 06/19/21 01:30 01:35 01:40 Temperature Pulse Rate 129 H 129 H 128 H Pulse Rate [ From Monitor] Respiratory 25 H 21 24 Rate Blood Pressure 111/61 111/61 114/66 O2 Sat by Pulse 94 99 96 Oximetry 06/19/21 06/19/21 06/19/21 01:45 01:50 01:55 Temperature Pulse Rate 128 H 127 H 126 H Pulse Rate [ From Monitor] Respiratory 25 H 18 30 H Rate Blood Pressure 114/66 116/61 116/61 O2 Sat by Pulse 99 95 99 Oximetry 06/19/21 06/19/21 06/19/21 02:00 02:05 02:10 Temperature Pulse Rate 127 H 125 H 126 H Pulse Rate [ 100 H From Monitor] Respiratory 26 H 29 H 31 H Rate Blood Pressure 120/63 120/63 116/64 O2 Sat by Pulse 95 98 95 Oximetry 06/19/21 06/19/21 06/19/21 02:15 02:20 02:25 Temperature Pulse Rate 126 H 125 H 126 H Pulse Rate [ From Monitor] Respiratory 31 H 26 H 29 H Rate Blood Pressure 116/64 119/65 119/65 O2 Sat by Pulse 99 94 99 Oximetry 06/19/21 06/19/21 06/19/21 02:30 02:35 02:40 Temperature Pulse Rate 126 H 125 H 122 H Pulse Rate [ From Monitor] Respiratory 31 H 29 H 29 H Rate Blood Pressure 112/62 112/62 115/64 O2 Sat by Pulse 94 99 96 Oximetry 06/19/21 06/19/21 06/19/21 02:45 02:50 02:55 Temperature Pulse Rate 125 H 124 H 124 H Pulse Rate [ From Monitor] Respiratory 30 H 31 H 31 H Rate Blood Pressure 115/64 119/61 119/61 O2 Sat by Pulse 99 94 98 Oximetry 06/19/21 06/19/21 06/19/21 03:00 03:05 03:10 Temperature Pulse Rate 124 H 123 H 124 H Pulse Rate [ From Monitor] Respiratory 31 H 30 H 29 H Rate Blood Pressure 117/61 117/61 115/59 O2 Sat by Pulse 94 99 94 Oximetry 06/19/21 06/19/21 06/19/21 03:15 03:20 03:25 Temperature Pulse Rate 123 H 124 H 122 H Pulse Rate [ From Monitor] Respiratory 29 H 30 H 29 H Rate Blood Pressure 115/59 115/62 115/62 O2 Sat by Pulse 99 94 98 Oximetry 06/19/21 06/19/21 06/19/21 03:30 03:35 03:40 Temperature Pulse Rate 123 H 122 H 122 H Pulse Rate [ From Monitor] Respiratory 30 H 29 H 24 Rate Blood Pressure 123/64 123/64 119/62 O2 Sat by Pulse 93 98 95 Oximetry 06/19/21 06/19/21 06/19/21 03:45 03:50 03:55 Temperature Pulse Rate 122 H 121 H 122 H Pulse Rate [ From Monitor] Respiratory 29 H 25 H 29 H Rate Blood Pressure 119/62 118/61 118/61 O2 Sat by Pulse 98 94 98 Oximetry 06/19/21 06/19/21 06/19/21 04:00 04:05 04:10 Temperature Pulse Rate 122 H 123 H 120 H Pulse Rate [ From Monitor] Respiratory 17 30 H 23 Rate Blood Pressure 116/62 116/62 121/59 O2 Sat by Pulse 95 98 94 Oximetry 06/19/21 06/19/21 06/19/21 04:15 04:16 04:20 Temperature 98.8 F Pulse Rate 121 H 120 H Pulse Rate [ From Monitor] Respiratory 20 18 Rate Blood Pressure 121/59 118/60 O2 Sat by Pulse 98 93 Oximetry 06/19/21 06/19/21 06/19/21 04:25 04:30 04:35 Temperature Pulse Rate 121 H 121 H 122 H Pulse Rate [ From Monitor] Respiratory 29 H 28 H 31 H Rate Blood Pressure 118/60 123/60 123/60 O2 Sat by Pulse 98 93 98 Oximetry 06/19/21 06/19/21 06/19/21 04:40 04:45 04:50 Temperature Pulse Rate 123 H 124 H 125 H Pulse Rate [ From Monitor] Respiratory 17 25 H 30 H Rate Blood Pressure 111/56 111/56 104/58 O2 Sat by Pulse 95 98 95 Oximetry 06/19/21 06/19/21 06/19/21 04:55 05:00 05:05 Temperature Pulse Rate 128 H 123 H 124 H Pulse Rate [ From Monitor] Respiratory 28 H 30 H 31 H Rate Blood Pressure 104/58 99/49 99/49 O2 Sat by Pulse 98 94 91 Oximetry 06/19/21 06/19/21 06/19/21 05:10 05:15 05:20 Temperature Pulse Rate 124 H 124 H 125 H Pulse Rate [ From Monitor] Respiratory 32 H 29 H 29 H Rate Blood Pressure 103/47 103/47 99/48 O2 Sat by Pulse 89 90 88 Oximetry 06/19/21 06/19/21 06/19/21 05:25 05:30 05:35 Temperature Pulse Rate 123 H 122 H 124 H Pulse Rate [ From Monitor] Respiratory 30 H 30 H 30 H Rate Blood Pressure 99/48 113/52 113/52 O2 Sat by Pulse 100 87 97 Oximetry 06/19/21 06/19/21 06/19/21 05:40 05:45 05:50 Temperature Pulse Rate 124 H 125 H 125 H Pulse Rate [ From Monitor] Respiratory 30 H 30 H 30 H Rate Blood Pressure 107/49 113/52 100/47 O2 Sat by Pulse 88 90 88 Oximetry 06/19/21 06/19/21 06/19/21 05:55 06:00 06:05 Temperature Pulse Rate 127 H 126 H 127 H Pulse Rate [ 100 H From Monitor] Respiratory 30 H 29 H 30 H Rate Blood Pressure 100/47 99/49 99/49 O2 Sat by Pulse 94 88 90 Oximetry 06/19/21 06/19/21 06/19/21 06:10 06:15 06:21 Temperature Pulse Rate 130 H 126 H 126 H Pulse Rate [ From Monitor] Respiratory 30 H 24 28 H Rate Blood Pressure 102/52 107/49 105/51 O2 Sat by Pulse 88 93 91 Oximetry 06/19/21 06/19/21 06/19/21 06:25 06:30 06:35 Temperature Pulse Rate 127 H 126 H 129 H Pulse Rate [ From Monitor] Respiratory 29 H 30 H 26 H Rate Blood Pressure 105/51 100/55 100/55 O2 Sat by Pulse 93 91 94 Oximetry 06/19/21 06/19/21 06/19/21 06:40 06:45 06:50 Temperature Pulse Rate 127 H 127 H 128 H Pulse Rate [ From Monitor] Respiratory 31 H 31 H 25 H Rate Blood Pressure 96/54 96/54 98/59 O2 Sat by Pulse 92 95 91 Oximetry 06/19/21 06/19/21 06/19/21 06:55 07:00 07:05 Temperature Pulse Rate 126 H 130 H 128 H Pulse Rate [ From Monitor] Respiratory 27 H 28 H 28 H Rate Blood Pressure 98/59 107/56 107/56 O2 Sat by Pulse 94 91 94 Oximetry 06/19/21 06/19/21 06/19/21 07:11 07:15 07:21 Temperature Pulse Rate 129 H 128 H 131 H Pulse Rate [ From Monitor] Respiratory 29 H 25 H 23 Rate Blood Pressure 88/55 88/55 118/61 O2 Sat by Pulse 94 94 93 Oximetry 06/19/21 06/19/21 06/19/21 07:25 07:30 07:35 Temperature Pulse Rate 130 H 128 H 128 H Pulse Rate [ From Monitor] Respiratory 25 H 25 H 27 H Rate Blood Pressure 118/61 110/59 110/59 O2 Sat by Pulse 94 92 94 Oximetry 06/19/21 06/19/21 06/19/21 07:40 07:45 07:51 Temperature Pulse Rate 128 H 128 H 128 H Pulse Rate [ From Monitor] Respiratory 28 H 24 27 H Rate Blood Pressure 131/62 131/62 131/58 O2 Sat by Pulse 92 95 94 Oximetry 06/19/21 06/19/21 06/19/21 07:55 08:00 08:05 Temperature 100.1 F H Pulse Rate 129 H 130 H 134 H Pulse Rate [ 123 H From Monitor] Respiratory 32 H 30 H 29 H Rate Blood Pressure 131/58 126/64 126/64 O2 Sat by Pulse 96 94 96 Oximetry 06/19/21 09:10 Temperature Pulse Rate 133 H Pulse Rate [ From Monitor] Respiratory Rate Blood Pressure 125/65 O2 Sat by Pulse 96 Oximetry - General Appearance General appearance: well-developed, well-nourished, appears stated age, intubated EENT: PERRL Neck: no JVD Respiratory: Present: Ronchi (Bilateral scattered rhonchi) Cardiology: regular, normal heart rate Gastrointestinal: normal, normoactive bowel sounds Integumentary: other (No edema) - Lab 06/18/21 Unknown 06/19/21 04:53 Most recent lab results ABG pH 7.270 (7.320-7.450) L 06/19/21 02:41 ABG pCO2 29.0 mm Hg 05/30/21 22:32 ABG pO2 141.8 mm Hg (80.0-90.0) H 05/30/21 22:32 ABG HCO3 19.9 mmol/L (20.0-26.0) L 05/30/21 22:32 ABG O2 Saturation 96.8 (0-100) 06/19/21 02:41 Calcium 7.4 mg/dL (8.4-10.2) L 06/19/21 04:53 Phosphorus 5.60 mg/dL (2.5-4.5) H D 06/18/21 10:56 Magnesium 2.30 mg/dL (1.7-2.3) 06/18/21 10:56 Medications & Allergies - Medications Allergies/Adverse Reactions: Allergies No Known Allergies Allergy (Unverified 02/12/17 15:47) Home Medications: Home Medications Medication Instructions Recorded Confirmed Last Taken Type No Known Home Medications [No 05/31/21 05/31/21 Unknown History Reported Home Medications] Active Medications: Generic Name Dose Route Start Last Admin Trade Name Freq PRN Reason Stop Dose Admin Acetaminophen 650 mg 06/15/21 21:13 06/17/21 13:21 Acetaminophen 650 Mg Rect Supp DC 650 mg Q6H PRN Administration Pain MILD(1-3)/Fever >100.5/LUCAS Albuterol/Ipratropium 1 ampul 06/07/21 20:00 06/19/21 09:16 Ipratropium/Albuterol Sulfate 3 Ml Ampul.Neb IH Not Given TIDRT MIKE Lipase/Protease/Amylase 1 each 06/18/21 12:21 Lipase 10,500/Protease 25,000/Amylase 43,750 (Units) Dr Cap FEEDTUBE PRN PRN For Clogged Feeding Tube Apixaban 2.5 mg 06/18/21 22:00 06/18/21 21:24 Apixaban 2.5 Mg Tab PO 2.5 mg Q12HR MIKE Administration Protocol Famotidine 10 mg 06/19/21 10:00 Famotidine 20 Mg/2 Ml Inj IV BID MIKE Fentanyl 50 mcg 06/17/21 17:00 Fentanyl 100 Mcg/2 Ml Inj IV Q10MIN PRN ANALGESIA Hydrophilic Ointment 1 applic 06/17/21 17:00 Lip Therapy Vaseline TP Q2HR PRN Dry Lips Metronidazole 500 mg in 100 mls @ 100 mls/hr 06/08/21 13:00 06/18/21 12:41 Flagyl 500 Mg/100 Ml IV 06/29/21 05:59 100 mls/hr Q8H MIKE Administration Protocol Fentanyl Citrate 2,000 mcg in 100 mls @ 3.725 mls/hr 06/17/21 17:00 06/19/21 04:38 Fentanyl Drip Premix IV 2 mcg/kg/hr TITR MIKE 7.45 mls/hr Titration Protocol 1 MCG/KG/HR NORepinephrine/NS 8 MG-250 ML 8 mg in 250 mls @ 3.75 mls/hr 06/18/21 23:00 06/19/21 06:11 Norepinephrine/Ns 8 Mg-250 Ml (Double Conc) IV 3 mcg/min TITRATE MIKE 5.625 mls/hr Titration Protocol 2 MCG/MIN Cefepime HCl 2 gm in 100 mls @ 200 mls/hr 06/20/21 06:00 Cefepime/Ns 2 Gm/100 Ml IV 06/29/21 06:29 Q24H MIKE Protocol Methylprednisolone Sodium Succinate 10 mg 06/16/21 10:00 06/18/21 21:25 Methylprednisolone Sod Succinate 40 Mg/1 Ml Inj IV 10 mg Q12HR MIKE Administration Morphine Sulfate 2 mg 05/23/21 22:01 06/17/21 10:01 Morphine 2 Mg/1 Ml Inj IV 2 mg Q4H PRN Administration Pain, Moderate (4-6) Multi-Ingred Cream/Lotion/Oil/Oint 1 applic 06/17/21 18:00 Mineral Oil/Petrolatum, White Ophth Oint 3.5 Gm OU Q4HR PRN Dry Eye(s) Ondansetron HCl 4 mg 06/04/21 13:41 06/09/21 22:05 Ondansetron 4 Mg/2 Ml Inj IV 4 mg Q4H PRN Administration Nausea And Vomiting Senna/Docusate Sodium 1 tab 06/17/21 22:00 06/18/21 21:25 Sennosides/Docusate Sodium 8.6/50 Mg Tab FEEDTUBE 1 tab BID MIKE Administration Simple Syrup 15 ml 06/18/21 12:21 Simple Syrup 15 Ml FEEDTUBE PRN PRN Hypoglycemia Simple Syrup 30 ml 06/18/21 12: Simple Syrup 15 Ml FEEDTUBE PRN PRN Hypoglycemia Sodium Bicarbonate 325 mg 06/18/21 12:21 Sodium Bicarbonate 325 Mg Tab FEEDTUBE PRN PRN For Clogged Feeding Tube Sodium Chloride 10 ml 05/23/21 22:01 06/15/21 22:15 Sodium Chloride 0.9% 10 Ml Flush Syringe IV 10 ml PRN PRN Administration LINE FLUSH
[2021-06-19 09:44] LABS: Platelet Count 64 K/mm3 (140-440)
[2021-06-19] MEDS ORDERED: SODIUM CHLORIDE 0.9% 500 ML 500 ML IV ONE (09:45)
[2021-06-19] MEDS: FAMOTIDINE 20 MG/2 ML INJ IV SCH ×2 (09:55→21:40)
[2021-06-19] MEDS: methylPREDNISolone Sod Succinate 40 MG/1 ML INJ IV SCH ×2 (09:56→21:39)
[2021-06-19] MEDS: APIXABAN 2.5 MG TAB PO SCH ×2 (09:56→21:40)
[2021-06-19] MEDS: SENNOSIDES/DOCUSATE SODIUM 8.6/50 MG TAB FEEDTUBE SCH ×2 (09:56→21:40)
[2021-06-19 10:09] LABS: INR 1.46 (0.87-1.13)
[2021-06-19 10:10] LABS: Partial Thromboplastin Time 54.3 Sec. (24.2-36.6)
[2021-06-19] MEDS: ACETAMINOPHEN 325 MG/10.15 ML ORAL LIQD UNIT DOSE FEEDTUBE PRN (12:15)
[2021-06-19] MEDS ORDERED: SODIUM CHLORIDE 0.9% 1000 ML 1,000 ML IV ONE (12:16)
[2021-06-19 12:22] LABS: Creatinine,Urine 49.9 mg/dL (0.1-20.0)
[2021-06-19 12:23] LABS: Fractional Sodium Excretion 2.3
[2021-06-19] MEDS: metroNIDAZOLE/NS 500 MG/100 ML 500 MG/100 ML BAG IV SCH ×3 (13:01→22:56)
--- NOTE | 2021-06-19 13:17 | Event Note ---
Date: 06/19/21 Today I had separate discussions via phone with the patient's daughter Meghan Sanabria ([phone]) and brother aMdhu Pittman ([phone]). They were given the current updates to his medical status. We discussed in detail, the possible need for hemodialysis if his renal function continue to worsen. Both voiced understanding. They would like to continue full care and keep FULL CODE STATUS.
[2021-06-19] MEDS: SODIUM CHLORIDE 0.9% 1000 ML 1,000 ML IV SCH (14:19)
--- NOTE | 2021-06-19 16:09 | Consultation ---
<CARIALHAJI - Last Filed: 06/19/21 16:59> History of Present Illness Consult date: 06/19/21 Requesting physician: SHARLA GARCÍA Consult reason: other (atrial tachycardia) History of present illness: Pt is a 56-year-old AA male, previously unknown to our practice, who was diagnosed with COVID-19 on 05/11 and subsequently presented with complaints of SOB and decreased oral intake x 10-12 days prior to arrival. Pt has had a compli cated stay and is currently requiring ventilatory support and vasopressor support in the setting of sepsis secondary to bilateral PNA. Cardiology has been consulted today for evaluation of an abnormal ECG and concern for multifocal atrial tachycardia. ECG obtained today reveals sinus tachycardia with T wave inversions in the inferolateral leads. Tele reviewed - SR 120-130s. Past History Past Medical History: stroke, other (COVID-19) Past Surgical History: denies: CABG, PTCA Social history: smoking (current daily smoker). denies: alcohol abuse Medications and Allergies Allergies Allergy/AdvReac Type Severity Reaction Status Date / Time No Known Allergies Allergy Unverified 02/12/17 15:47 Home Medications Medication Instructions Recorded Confirmed Last Taken Type No Known Home Medications [No 05/31/21 05/31/21 Unknown History Reported Home Medications] Active Meds: Active Medications Acetaminophen (Acetaminophen 325 Mg/10.15 Ml Oral Liqd Unit Dose) 650 mg FEEDTUBE Q6H PRN PRN Reason: Pain MILD(1-3)/Fever >100.5/LUCAS Last Admin: 06/19/21 12:15 Dose: 650 mg Documented by: Albuterol/Ipratropium (Ipratropium/Albuterol Sulfate 3 Ml Ampul.Neb) 1 ampul IH TIDRT [facility] Last Admin: 06/19/21 13:13 Dose: Not Given Documented by: Lipase/Protease/Amylase (Lipase 10,500/Protease 25,000/Amylase 43,750 (Units) Dr Rodney) 1 each FEEDTUBE PRN PRN PRN Reason: For Clogged Feeding Tube Apixaban (Apixaban 2.5 Mg Tab) 2.5 mg PO Q12HR MIKE; Protocol Last Admin: 06/19/21 09:56 Dose: 2.5 mg Documented by: Famotidine (Famotidine 20 Mg/2 Ml Inj) 10 mg IV BID MIKE Last Admin: 06/19/21 09:55 Dose: 10 mg Documented by: Fentanyl (Fentanyl 100 Mcg/2 Ml Inj) 50 mcg IV Q10MIN PRN PRN Reason: ANALGESIA Hydrophilic Ointment (Lip Therapy Vaseline) 1 applic TP Q2HR PRN PRN Reason: Dry Lips Metronidazole (Flagyl 500 Mg/100 Ml) 500 mg in 100 mls @ 100 mls/hr IV Q8H MIKE; Protocol Stop: 06/29/21 05:59 Last Admin: 06/19/21 13:01 Dose: 100 mls/hr Documented by: Fentanyl Citrate (Fentanyl Drip Premix) 2,000 mcg in 100 mls @ 3.725 mls/hr IV TITR MIKE; Protocol Last Titration: 06/19/21 04:38 Dose: 2 mcg/kg/hr, 7.45 mls/hr Documented by: NORepinephrine/NS 8 MG-250 ML (Norepinephrine/Ns 8 Mg-250 Ml (Double Conc)) 8 mg in 250 mls @ 3.75 mls/hr IV TITRATE MIKE; Protocol Last Titration: 06/19/21 15:40 Dose: 1 mcg/min, 1.875 mls/hr Documented by: Cefepime HCl (Cefepime/Ns 2 Gm/100 Ml) 2 gm in 100 mls @ 200 mls/hr IV Q24H MIKE; Protocol Stop: 06/29/21 06:29 Sodium Chloride (Nacl 0.9% 1000 Ml) 1,000 mls @ 125 mls/hr IV DIRECT MIKE Last Admin: 06/19/21 14:19 Dose: 125 mls/hr Documented by: Methylprednisolone Sodium Succinate (Methylprednisolone Sod Succinate 40 Mg/1 Ml Inj) 10 mg IV Q12HR MIKE Last Admin: 06/19/21 09:56 Dose: 10 mg Documented by: Morphine Sulfate (Morphine 2 Mg/1 Ml Inj) 2 mg IV Q4H PRN PRN Reason: Pain, Moderate (4-6) Last Admin: 06/17/21 10:01 Dose: 2 mg Documented by: Multi-Ingred Cream/Lotion/Oil/Oint (Mineral Oil/Petrolatum, White Ophth Oint 3.5 Gm) 1 applic OU Q4HR PRN PRN Reason: Dry Eye(s) Ondansetron HCl (Ondansetron 4 Mg/2 Ml Inj) 4 mg IV Q4H PRN PRN Reason: Nausea And Vomiting Last Admin: 06/09/21 22:05 Dose: 4 mg Documented by: Senna/Docusate Sodium (Sennosides/Docusate Sodium 8.6/50 Mg Tab) 1 tab FEEDTUBE BID MIKE Last Admin: 06/19/21 09:56 Dose: 1 tab Documented by: Simple Syrup (Simple Syrup 15 Ml) 15 ml FEEDTUBE PRN PRN PRN Reason: Hypoglycemia Simple Syrup (Simple Syrup 15 Ml) 30 ml FEEDTUBE PRN PRN PRN Reason: Hypoglycemia Sodium Bicarbonate (Sodium Bicarbonate 325 Mg Tab) 325 mg FEEDTUBE PRN PRN PRN Reason: For Clogged Feeding Tube Sodium Chloride (Sodium Chloride 0.9% 10 Ml Flush Syringe) 10 ml IV PRN PRN PRN Reason: LINE FLUSH Last Admin: 06/15/21 22:15 Dose: 10 ml Documented by: Review of Systems ROS unobtainable: due to endotracheal tube Physical Examination Last Vital Signs Temp 100.1 F H 06/19/21 08:00 Pulse 134 H 06/19/21 16:00 Resp 24 06/19/21 16:00 BP 120/58 06/19/21 16:00 Pulse Ox 91 06/19/21 16:00 General appearance: other (intubated) HEENT: Positive: Normocephaly Neck: Positive: neck supple, trachea midline. Negative: JVD/HJR Cardiac: Positive: Regular Rhythm, S1/S2, Tachycardia Lungs: Positive: Ventilated Respirations Neuro: Positive: Other (intubated) Abdomen: Positive: Soft Skin: Negative: Rash Musculoskeletal: No Fluid Collection Extremities: Present: lower extr. pulses, warm. Absent: edema Results 06/19/21 08:55 06/19/21 09:41 Coagulation 06/19/21 Range/Units 09:37 PT 19.2 H (12.2-14.9) Sec. INR 1.46 H (0.87-1.13) APTT 54.3 H (24.2-36.6) Sec. Lipids 06/19/21 Range/Units 12:19 Triglycerides 295 H (2-149) mg/dL Cholesterol 85 (50-199) mg/dL HDL Cholesterol 17 L (40-59) mg/dL Cholesterol/HDL Ratio 5.00 % CBC 06/19/21 Range/Units 08:55 WBC 5.2 (4.5-11.0) K/mm3 RBC 2.91 L (3.65-5.03) M/mm3 Hgb 7.9 L (11.8-15.2) gm/dl Hct 24.4 L (35.5-45.6) % Plt Count 64 L (140-440) K/mm3 Comprehensive Metabolic Panel 06/19/21 06/19/21 Range/Units 04:53 09:41 Sodium 144 D 146 H (137-145) mmol/L Potassium 4.8 (3.6-5.0) mmol/L Chloride 106.4 (98-107) mmol/L Carbon Dioxide 22 (22-30) mmol/L BUN 92 H (9-20) mg/dL Creatinine 3.2 H D 3.5 H (0.8-1.3) mg/dL Glucose 123 H (75-100) mg/dL Calcium 7.4 L (8.4-10.2) mg/dL - Imaging and Cardiology Echo: report reviewed (06/05/2021 - EF 55-60%, normal diastolic fxn, no valvular abnormalities) EKG: report reviewed, image reviewed EKG interpretations - Telemetry EKG Rhythm: Sinus Tachycardia - EKG Sinus rhythms and dysrhythmias: sinus tachycardia Assessment and Plan Suspect physiologic sinus tachycardia in the setting of sepsis/shock. Agree with aggressive IV fluids. Trend cardiac enzymes. Obtain repeat 12-lead ECG in AM. Recommend discontinuation of Eliquis given anemia/thrombocytopenia, as well as reports of melena per nursing staff. Pt seen in conjunction with Dr. Adhikari, who agrees with the assessment and plan of care. - Patient Problems (1) Acute encephalopathy Current Visit: Yes Status: Acute (2) Acute respiratory failure with hypoxia Current Visit: Yes Status: Acute (3) Sepsis Current Visit: Yes Status: Acute Qualifiers: Severe sepsis shock status: with septic shock (4) Bilateral pneumonia Current Visit: Yes Status: Acute (5) Abscess of left lung with pneumonia Current Visit: Yes Status: Acute (6) COVID-19 virus infection Current Visit: Yes Status: Acute (7) ANGELES (acute kidney injury) Current Visit: Yes Status: Acute (8) Anemia Current Visit: Yes Status: Acute (9) Thrombocytopenia Current Visit: Yes Status: Acute (10) Sinus tachycardia Current Visit: Yes Status: Acute (11) NSTEMI (non-ST elevated myocardial infarction) Current Visit: Yes Status: Acute (12) Failure to thrive Current Visit: Yes Status: Acute Qualifiers: Failure to thrive age range: in adult Qualified Code(s): R62.7 - Adult failure to thrive (13) HLD (hyperlipidemia) Current Visit: Yes Status: Chronic Qualifiers: Hyperlipidemia type: mixed hyperlipidemia Qualified Code(s): E78.2 - Mixed hyperlipidemia (14) History of CVA (cerebrovascular accident) Current Visit: Yes Status: Chronic <TERESITA ADHIKARI R - Last Filed: 06/20/21 10:02> Medications and Allergies Active Meds: Active Medications Acetaminophen (Acetaminophen 325 Mg/10.15 Ml Oral Liqd Unit Dose) 650 mg FEEDTUBE Q6H PRN PRN Reason: Pain MILD(1-3)/Fever >100.5/LUCAS Last Admin: 06/19/21 12:15 Dose: 650 mg Documented by: Albuterol/Ipratropium (Ipratropium/Albuterol Sulfate 3 Ml Ampul.Neb) 1 ampul IH TIDRT [facility] Last Admin: 06/20/21 02:42 Dose: Not Given Documented by: Lipase/Protease/Amylase (Lipase 10,500/Protease 25,000/Amylase 43,750 (Units) Dr Rodney) 1 each FEEDTUBE PRN PRN PRN Reason: For Clogged Feeding Tube Apixaban (Apixaban 2.5 Mg Tab) 2.5 mg PO Q12HR MIKE; Protocol Last Admin: 06/19/21 21:40 Dose: 2.5 mg Documented by: Famotidine (Famotidine 20 Mg/2 Ml Inj) 10 mg IV BID MIKE Last Admin: 06/20/21 09:27 Dose: 10 mg Documented by: Fentanyl (Fentanyl 100 Mcg/2 Ml Inj) 50 mcg IV Q10MIN PRN PRN Reason: ANALGESIA Hydrophilic Ointment (Lip Therapy Vaseline) 1 applic TP Q2HR PRN PRN Reason: Dry Lips Metronidazole (Flagyl 500 Mg/100 Ml) 500 mg in 100 mls @ 100 mls/hr IV Q8H MIKE; Protocol Stop: 06/29/21 05:59 Last Infusion: 06/20/21 08:05 Dose: Infused Documented by: Fentanyl Citrate (Fentanyl Drip Premix) 2,000 mcg in 100 mls @ 3.725 mls/hr IV TITR MIKE; Protocol Last Admin: 06/20/21 07:00 Dose: 2 mcg/kg/hr, 7.45 mls/hr Documented by: NORepinephrine/NS 8 MG-250 ML (Norepinephrine/Ns 8 Mg-250 Ml (Double Conc)) 8 mg in 250 mls @ 3.75 mls/hr IV TITRATE MIKE; Protocol Last Titration: 06/19/21 16:37 Dose: 0 mcg/min, 0 mls/hr Documented by: Cefepime HCl (Cefepime/Ns 2 Gm/100 Ml) 2 gm in 100 mls @ 200 mls/hr IV Q24H MIKE; Protocol Stop: 06/29/21 06:29 Last Infusion: 06/20/21 08:05 Dose: Infused Documented by: Sodium Chloride (Nacl 0.9% 1000 Ml) 1,000 mls @ 50 mls/hr IV DIRECT MIKE Methylprednisolone Sodium Succinate (Methylprednisolone Sod Succinate 40 Mg/1 Ml Inj) 10 mg IV Q12HR MIKE Last Admin: 06/20/21 09:27 Dose: 10 mg Documented by: Morphine Sulfate (Morphine 2 Mg/1 Ml Inj) 2 mg IV Q4H PRN PRN Reason: Pain, Moderate (4-6) Last Admin: 06/17/21 10:01 Dose: 2 mg Documented by: Multi-Ingred Cream/Lotion/Oil/Oint (Mineral Oil/Petrolatum, White Ophth Oint 3.5 Gm) 1 applic OU Q4HR PRN PRN Reason: Dry Eye(s) Ondansetron HCl (Ondansetron 4 Mg/2 Ml Inj) 4 mg IV Q4H PRN PRN Reason: Nausea And Vomiting Last Admin: 06/09/21 22:05 Dose: 4 mg Documented by: Senna/Docusate Sodium (Sennosides/Docusate Sodium 8.6/50 Mg Tab) 1 tab FEEDTUBE BID MIKE Last Admin: 06/19/21 21:40 Dose: 1 tab Documented by: Simple Syrup (Simple Syrup 15 Ml) 15 ml FEEDTUBE PRN PRN PRN Reason: Hypoglycemia Simple Syrup (Simple Syrup 15 Ml) 30 ml FEEDTUBE PRN PRN PRN Reason: Hypoglycemia Sodium Bicarbonate (Sodium Bicarbonate 325 Mg Tab) 325 mg FEEDTUBE PRN PRN PRN Reason: For Clogged Feeding Tube Sodium Chloride (Sodium Chloride 0.9% 10 Ml Flush Syringe) 10 ml IV PRN PRN PRN Reason: LINE FLUSH Last Admin: 06/20/21 09:27 Dose: 10 ml Documented by: Physical Examination Vital Signs Temp Pulse Resp BP Pulse Ox 97.9 F 132 H 24 156/92 99 05/23/21 18:36 05/23/21 18:36 05/23/21 18:36 05/23/21 18:36 05/23/21 18:36 Results 06/20/21 05:00 06/20/21 05:00 Coagulation 06/19/21 Range/Units 09:37 PT 19.2 H (12.2-14.9) Sec. INR 1.46 H (0.87-1.13) APTT 54.3 H (24.2-36.6) Sec. Lipids 06/19/21 Range/Units 12:19 Triglycerides 295 H (2-149) mg/dL Cholesterol 85 (50-199) mg/dL HDL Cholesterol 17 L (40-59) mg/dL Cholesterol/HDL Ratio 5.00 % CBC 06/20/21 Range/Units 05:00 WBC 4.1 L (4.5-11.0) K/mm3 RBC 2.66 L (3.65-5.03) M/mm3 Hgb 7.3 L (11.8-15.2) gm/dl Hct 22.5 L (35.5-45.6) % Plt Count 60 L (140-440) K/mm3 Comprehensive Metabolic Panel 06/19/21 06/20/21 Range/Units 09:41 05:00 Sodium 146 H 145 (137-145) mmol/L Potassium 4.3 (3.6-5.0) mmol/L Chloride 111.6 H (98-107) mmol/L Carbon Dioxide 20 L (22-30) mmol/L BUN 108 H (9-20) mg/dL Creatinine 3.5 H 4.3 H (0.8-1.3) mg/dL Glucose 152 H (75-100) mg/dL Calcium 7.1 L (8.4-10.2) mg/dL Assessment and Plan not a candiate for anticougulation secondary to anemia and beta blockers secondary to hypotension
--- NOTE | 2021-06-19 16:12 | Progress Note ---
Assessment and Plan Cultures: SARS CoV2 PCR: Positive as outpatient. Negative here x 2 05/23/2021 blood culture: no growth 05/29/2021 blood culture no growth 05/30/2021 blood culture no growth 05/30/2021 urine culture [place] 05/31/2021 blood culture no growth 06/03/2021 blood culture no growth today A/P: 55/M with initially seen on 05/23/2021 due to bilateral pneumonia with positive Covid test outpatient but negative x2 inpatient noted with new fever and repeat CT chest shows bilateral basilar pneumonia with cavitation: #Sepsis: No fever since 06/04/2021. Likely secondary to bilateral pneumonia. #Bilateral pneumonia with cavitation: ? secondary to COVID-19, tested positive as outpatient, but negative here x 2. During the last week noted elevated procalcitonin from 0.3-->24 in the setting of resolving ANGELES. Also noted CRP from 5.2-->19. CT abdomen shows severe aspiration type pneumonia in both bases with a currently 30 lesion of 20 cm on the left lower lobe. #Acute hypoxic respiratory failure: On BiPAP. Likely due to pneumonia. VQ scan low probability for PE. #Recent ileus: Resolved. #Acute renal failure: Nephrology on board. Improving. #Hypernatremia: Per primary team/ renal improving #Tachycardia #Elevated ddimer: VQ low prob for PE Recs: -Taper off of steroid -Start cefepime and metronidazole -Stop vancomycin given negative MRSA PCR -Given cavitation with likely abscess will plan to treat with IV in house and discharge with PO antibiotics to complete 3 weeks. -Plan to discharge on Augmentin 875/125mg q12h and Bactrim DS q12 G. Aileen Ferguson MD [facility] O: [phone] F: [phone] Subjective Date of service: 06/19/21 Principal diagnosis: Acute hypoxemic resp failure; Pneumonia; PUI COVID-19 infection Interval history: Afebrile, white count 5.2. Cultures are negative. Objective - Exam Narrative Exam: General appearance: Alert on BiPAP Eyes: anicteric sclerae, moist conjunctivae; no lid-lag; PERRLA HENT: Normocephalic, Atraumatic; normal external ears, nares open, oropharynx limited Neck: supple, tracheal midline, no JVD Lungs: Rhonchi CV: RRR no murmur Abdomen: Soft, non-tender; no masses or hepatosplenomegaly Extremities: no edema, no cyanosis Skin: No rash. Psych: no agitated Neuro: alert follows commands - Constitutional Vitals: Vital Signs Temp Pulse Resp BP Pulse Ox 100.1 F H 125 H 22 120/58 88 06/19/21 08:00 06/19/21 16:00 06/19/21 16:00 06/19/21 16:00 06/19/21 16:00 Temperature -Last 24 Hours Temperature 100.1 F Temperature 98.8 F Temperature 98.8 F Temperature 98.6 F - Labs CBC & Chem 7: 06/19/21 08:55 06/19/21 09:41 Labs: Abnormal lab results 06/18/21 06/19/21 06/19/21 Range/Units Unknown 02:41 04:53 RBC (3.65-5.03) M/mm3 Hgb (11.8-15.2) gm/dl Hct (35.5-45.6) % MCH (28-32) pg RDW (13.2-15.2) % Plt Count (140-440) K/mm3 PT (12.2-14.9) Sec. INR (0.87-1.13) APTT (24.2-36.6) Sec. ABG pH 7.270 L (7.320-7.450) POC ABG pCO2 49.0 H (32.0-48.0) mmHg ABG Hemoglobin 8.8 L (12.0-17.5) ABG Chloride 111.0 H (98-107) mmol/L ABG Glucose 110 H (65-95) mg/dL Sodium (137-145) mmol/L BUN 92 H (9-20) mg/dL Creatinine 3.2 H D (0.8-1.3) mg/dL Glucose 123 H (75-100) mg/dL POC Glucose (70-105) mg/dL Calcium 7.4 L (8.4-10.2) mg/dL Troponin T (0.00-0.029) ng/mL Triglycerides (2-149) mg/dL LDL Cholesterol Direct (50-130) mg/dL HDL Cholesterol (40-59) mg/dL Arterial Blood Glucose 110 H (65-95) mg/dL Urine WBC (Auto) 10.0 H (0.0-6.0) /HPF Urine Creatinine (0.1-20.0) mg/dL 06/19/21 06/19/21 06/19/21 Range/Units 05:37 08:55 09:37 RBC 2.91 L (3.65-5.03) M/mm3 Hgb 7.9 L (11.8-15.2) gm/dl Hct 24.4 L (35.5-45.6) % MCH 27 L (28-32) pg RDW 16.5 H (13.2-15.2) % Plt Count 64 L (140-440) K/mm3 PT 19.2 H (12.2-14.9) Sec. INR 1.46 H (0.87-1.13) APTT 54.3 H (24.2-36.6) Sec. ABG pH (7.320-7.450) POC ABG pCO2 (32.0-48.0) mmHg ABG Hemoglobin (12.0-17.5) ABG Chloride (98-107) mmol/L ABG Glucose (65-95) mg/dL Sodium (137-145) mmol/L BUN (9-20) mg/dL Creatinine (0.8-1.3) mg/dL Glucose (75-100) mg/dL POC Glucose 114 H (70-105) mg/dL Calcium (8.4-10.2) mg/dL Troponin T (0.00-0.029) ng/mL Triglycerides (2-149) mg/dL LDL Cholesterol Direct (50-130) mg/dL HDL Cholesterol (40-59) mg/dL Arterial Blood Glucose (65-95) mg/dL Urine WBC (Auto) (0.0-6.0) /HPF Urine Creatinine (0.1-20.0) mg/dL 06/19/21 06/19/21 06/19/21 Range/Units 09:41 11:14 12:19 RBC (3.65-5.03) M/mm3 Hgb (11.8-15.2) gm/dl Hct (35.5-45.6) % MCH (28-32) pg RDW (13.2-15.2) % Plt Count (140-440) K/mm3 PT (12.2-14.9) Sec. INR (0.87-1.13) APTT (24.2-36.6) Sec. ABG pH (7.320-7.450) POC ABG pCO2 (32.0-48.0) mmHg ABG Hemoglobin (12.0-17.5) ABG Chloride (98-107) mmol/L ABG Glucose (65-95) mg/dL Sodium 146 H (137-145) mmol/L BUN (9-20) mg/dL Creatinine 3.5 H (0.8-1.3) mg/dL Glucose (75-100) mg/dL POC Glucose (70-105) mg/dL Calcium (8.4-10.2) mg/dL Troponin T 0.109 H* (0.00-0.029) ng/mL Triglycerides 295 H (2-149) mg/dL LDL Cholesterol Direct 24 L (50-130) mg/dL HDL Cholesterol 17 L (40-59) mg/dL Arterial Blood Glucose (65-95) mg/dL Urine WBC (Auto) (0.0-6.0) /HPF Urine Creatinine 49.9 H (0.1-20.0) mg/dL
--- NOTE | 2021-06-19 17:40 | Progress Note ---
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 - continue anti-infective's per ID recommendations - continue care as below otherwise; - Daily SAT and SBT assessment as tolerated - VAP bundle addressed - continue lung protective strategies - continue bronchodilators with pulmonary hygiene per RT - wean per pulmonary driven protocols otherwise - continue to wean supplemental oxygen for target O2 sat's > 90% acutely - continue accuchecks with glycemic control per SSI (While critically ill target blood glucose of 140-180 mg/dL; avoid hypoglycemia) - avoid nephrotoxins, renally dose all medications - continue to avoid benzodiazepine's, reduce the possibility of delirium - prn analgesia per CPOT score - Maintenance of sleep-wake cycle, avoid delirium - continue enteral nutritional support at goal rate as tolerated - G.I. & VTE prophylaxis - PT/OT/ROM exercises - continue mobility protocols for pressure ulcer prophylaxis - Monitor hemodynamics closely - continue other care per attending / other consultants - discharge planning ongoing concurrently COVID SPECIFIC INTERVENTIONS - repeat COVID-19 test result negative .... Re-evaluate in am & prn CONDITION: CRITICAL PROGNOSIS: GUARDED CODE STATUS: FULL CODE The high probability of a clinically significant, sudden or life-threatening deterioration of the [respiratory, GI, renal & cardiovascular] system(s) required my full and direct attention, intervention and personal management. The aggregate critical care time was [35] minutes without overlap. Time includes spent on; [x] Data Review and interpretation [x] Patient assessment and monitoring of vital signs [x] Documentation [x] Medication orders and management Subjective Date of service: 06/19/21 Principal diagnosis: Acute hypoxemic resp failure; Pneumonia; PUI COVID-19 infection Interval history: Patient is seen today for: Acute hypoxemic respiratory failure; Bilateral pneumonia; Suspected 2019 novel coronavirus infection Seen and examined at bedside; 24hour events reviewed; nursing and respiratory care staff consulted; no adverse overnight events reported to me; resting in bed; remains on MVS; Objective Vital Signs - 12hr 06/19/21 06/19/21 06/19/21 05:45 05:50 05:55 Temperature Pulse Rate 125 H 125 H 127 H Pulse Rate [ From Monitor] Respiratory 30 H 30 H 30 H Rate Blood Pressure 113/52 100/47 100/47 O2 Sat by Pulse 90 88 94 Oximetry 06/19/21 06/19/21 06/19/21 06:00 06:05 06:10 Temperature Pulse Rate 126 H 127 H 130 H Pulse Rate [ 100 H From Monitor] Respiratory 29 H 30 H 30 H Rate Blood Pressure 99/49 99/49 102/52 O2 Sat by Pulse 88 90 88 Oximetry 06/19/21 06/19/21 06/19/21 06:15 06:21 06:25 Temperature Pulse Rate 126 H 126 H 127 H Pulse Rate [ From Monitor] Respiratory 24 28 H 29 H Rate Blood Pressure 107/49 105/51 105/51 O2 Sat by Pulse 93 91 93 Oximetry 06/19/21 06/19/21 06/19/21 06:30 06:35 06:40 Temperature Pulse Rate 126 H 129 H 127 H Pulse Rate [ From Monitor] Respiratory 30 H 26 H 31 H Rate Blood Pressure 100/55 100/55 96/54 O2 Sat by Pulse 91 94 92 Oximetry 06/19/21 06/19/21 06/19/21 06:45 06:50 06:55 Temperature Pulse Rate 127 H 128 H 126 H Pulse Rate [ From Monitor] Respiratory 31 H 25 H 27 H Rate Blood Pressure 96/54 98/59 98/59 O2 Sat by Pulse 95 91 94 Oximetry 06/19/21 06/19/21 06/19/21 07:00 07:05 07:11 Temperature Pulse Rate 130 H 128 H 129 H Pulse Rate [ From Monitor] Respiratory 28 H 28 H 29 H Rate Blood Pressure 107/56 107/56 88/55 O2 Sat by Pulse 91 94 94 Oximetry 06/19/21 06/19/21 06/19/21 07:15 07:21 07:25 Temperature Pulse Rate 128 H 131 H 130 H Pulse Rate [ From Monitor] Respiratory 25 H 23 25 H Rate Blood Pressure 88/55 118/61 118/61 O2 Sat by Pulse 94 93 94 Oximetry 06/19/21 06/19/21 06/19/21 07:30 07:35 07:40 Temperature Pulse Rate 128 H 128 H 128 H Pulse Rate [ From Monitor] Respiratory 25 H 27 H 28 H Rate Blood Pressure 110/59 110/59 131/62 O2 Sat by Pulse 92 94 92 Oximetry 06/19/21 06/19/21 06/19/21 07:45 07:51 07:55 Temperature Pulse Rate 128 H 128 H 129 H Pulse Rate [ From Monitor] Respiratory 24 27 H 32 H Rate Blood Pressure 131/62 131/58 131/58 O2 Sat by Pulse 95 94 96 Oximetry 06/19/21 06/19/21 06/19/21 08:00 08:05 08:10 Temperature 100.1 F H Pulse Rate 130 H 134 H 129 H Pulse Rate [ 123 H From Monitor] Respiratory 30 H 29 H 30 H Rate Blood Pressure 126/64 126/64 124/61 O2 Sat by Pulse 94 96 95 Oximetry 06/19/21 06/19/21 06/19/21 08:15 08:20 08:25 Temperature Pulse Rate 130 H 130 H 129 H Pulse Rate [ From Monitor] Respiratory 30 H 23 31 H Rate Blood Pressure 124/61 129/61 129/61 O2 Sat by Pulse 96 95 97 Oximetry 06/19/21 06/19/21 06/19/21 08:30 08:35 08:40 Temperature Pulse Rate 130 H 131 H 130 H Pulse Rate [ From Monitor] Respiratory 26 H 30 H 30 H Rate Blood Pressure 125/67 125/67 124/63 O2 Sat by Pulse 95 97 95 Oximetry 06/19/21 06/19/21 06/19/21 08:45 08:50 08:55 Temperature Pulse Rate 131 H 130 H 131 H Pulse Rate [ From Monitor] Respiratory 30 H 30 H 28 H Rate Blood Pressure 124/63 119/64 119/64 O2 Sat by Pulse 96 96 97 Oximetry 06/19/21 06/19/21 06/19/21 09:00 09:05 09:10 Temperature Pulse Rate 131 H 131 H 131 H Pulse Rate [ From Monitor] Respiratory 29 H 29 H 31 H Rate Blood Pressure 124/60 124/60 125/65 O2 Sat by Pulse 95 96 94 Oximetry 06/19/21 06/19/21 06/19/21 09:15 09:20 09:25 Temperature Pulse Rate 133 H 137 H 131 H Pulse Rate [ From Monitor] Respiratory 29 H 22 29 H Rate Blood Pressure 125/65 125/61 125/61 O2 Sat by Pulse 94 93 94 Oximetry 06/19/21 06/19/21 06/19/21 09:30 09:35 09:40 Temperature Pulse Rate 130 H 129 H 134 H Pulse Rate [ From Monitor] Respiratory 27 H 20 18 Rate Blood Pressure 120/59 120/59 137/65 O2 Sat by Pulse 93 95 94 Oximetry 06/19/21 06/19/21 06/19/21 09:45 09:50 09:55 Temperature Pulse Rate 130 H 130 H 129 H Pulse Rate [ From Monitor] Respiratory 28 H 29 H 27 H Rate Blood Pressure 137/65 130/68 130/68 O2 Sat by Pulse 95 95 95 Oximetry 06/19/21 06/19/21 06/19/21 10:00 10:05 10:11 Temperature Pulse Rate 133 H 131 H 131 H Pulse Rate [ From Monitor] Respiratory 29 H 31 H 29 H Rate Blood Pressure 142/64 142/64 125/61 O2 Sat by Pulse 91 94 92 Oximetry 06/19/21 06/19/21 06/19/21 10:15 10:20 10:25 Temperature Pulse Rate 131 H 132 H 133 H Pulse Rate [ From Monitor] Respiratory 27 H 29 H 31 H Rate Blood Pressure 125/61 136/65 136/65 O2 Sat by Pulse 94 93 94 Oximetry 06/19/21 06/19/21 06/19/21 10:30 10:35 10:40 Temperature Pulse Rate 133 H 133 H 133 H Pulse Rate [ From Monitor] Respiratory 31 H 29 H 31 H Rate Blood Pressure 134/64 134/64 127/64 O2 Sat by Pulse 94 93 93 Oximetry 06/19/21 06/19/21 06/19/21 10:45 10:50 10:55 Temperature Pulse Rate 133 H 133 H 134 H Pulse Rate [ From Monitor] Respiratory 31 H 37 H 26 H Rate Blood Pressure 127/64 122/62 122/62 O2 Sat by Pulse 94 93 93 Oximetry 06/19/21 06/19/21 06/19/21 11:00 11:05 11:10 Temperature Pulse Rate 135 H 136 H 139 H Pulse Rate [ From Monitor] Respiratory 25 H 19 25 H Rate Blood Pressure 128/60 128/60 128/62 O2 Sat by Pulse 92 94 91 Oximetry 06/19/21 06/19/21 06/19/21 11:15 11:21 11:25 Temperature Pulse Rate 135 H 138 H 135 H Pulse Rate [ From Monitor] Respiratory 24 17 30 H Rate Blood Pressure 128/62 114/63 114/63 O2 Sat by Pulse 94 92 93 Oximetry 06/19/21 06/19/21 06/19/21 11:30 11:35 11:40 Temperature Pulse Rate 135 H 136 H 136 H Pulse Rate [ From Monitor] Respiratory 31 H 25 H 24 Rate Blood Pressure 121/62 121/62 115/59 O2 Sat by Pulse 91 93 90 Oximetry 06/19/21 06/19/21 06/19/21 11:45 11:51 11:55 Temperature Pulse Rate 136 H 135 H 135 H Pulse Rate [ From Monitor] Respiratory 24 30 H 28 H Rate Blood Pressure 115/59 111/57 111/57 O2 Sat by Pulse 92 90 93 Oximetry 06/19/21 06/19/21 06/19/21 12:00 12:05 12:10 Temperature Pulse Rate 135 H 136 H 136 H Pulse Rate [ 135 H From Monitor] Respiratory 31 H 29 H 26 H Rate Blood Pressure 114/56 114/56 115/57 O2 Sat by Pulse 89 91 90 Oximetry 06/19/21 06/19/21 06/19/21 12:15 12:16 12:20 Temperature Pulse Rate 134 H 134 H 134 H Pulse Rate [ From Monitor] Respiratory 28 H 30 H Rate Blood Pressure 115/57 115/57 108/55 O2 Sat by Pulse 91 92 90 Oximetry 06/19/21 06/19/21 06/19/21 12:25 12:30 12:35 Temperature Pulse Rate 135 H 135 H 135 H Pulse Rate [ From Monitor] Respiratory 18 24 30 H Rate Blood Pressure 114/56 113/57 113/57 O2 Sat by Pulse 92 89 92 Oximetry 06/19/21 06/19/21 06/19/21 12:40 12:45 12:50 Temperature Pulse Rate 133 H 133 H 135 H Pulse Rate [ From Monitor] Respiratory 27 H 30 H 25 H Rate Blood Pressure 110/59 110/59 112/54 O2 Sat by Pulse 89 91 89 Oximetry 06/19/21 06/19/21 06/19/21 12:55 13:00 13:05 Temperature Pulse Rate 134 H 138 H 131 H Pulse Rate [ From Monitor] Respiratory 26 H 25 H 25 H Rate Blood Pressure 113/57 113/54 113/54 O2 Sat by Pulse 91 86 89 Oximetry 06/19/21 06/19/21 06/19/21 13:10 13:15 13:20 Temperature Pulse Rate 129 H 128 H 128 H Pulse Rate [ From Monitor] Respiratory 25 H 26 H 20 Rate Blood Pressure 115/53 115/53 105/52 O2 Sat by Pulse 88 91 89 Oximetry 06/19/21 06/19/21 06/19/21 13:25 13:30 13:35 Temperature Pulse Rate 126 H 127 H 126 H Pulse Rate [ From Monitor] Respiratory 22 18 15 Rate Blood Pressure 115/53 112/55 112/55 O2 Sat by Pulse 91 90 91 Oximetry 06/19/21 06/19/21 06/19/21 13:40 13:45 13:50 Temperature Pulse Rate 126 H 126 H 125 H Pulse Rate [ From Monitor] Respiratory 19 18 30 H Rate Blood Pressure 108/52 108/52 115/55 O2 Sat by Pulse 89 92 90 Oximetry 06/19/21 06/19/21 06/19/21 13:55 14:00 14:05 Temperature Pulse Rate 125 H 126 H 125 H Pulse Rate [ From Monitor] Respiratory 16 14 15 Rate Blood Pressure 112/55 108/54 108/54 O2 Sat by Pulse 91 89 92 Oximetry 06/19/21 06/19/21 06/19/21 14:10 14:15 14:20 Temperature Pulse Rate 127 H 126 H 126 H Pulse Rate [ From Monitor] Respiratory 16 19 14 Rate Blood Pressure 114/58 114/58 114/57 O2 Sat by Pulse 89 91 89 Oximetry 06/19/21 06/19/21 06/19/21 14:25 14:30 14:35 Temperature Pulse Rate 126 H 126 H 130 H Pulse Rate [ From Monitor] Respiratory 13 16 22 Rate Blood Pressure 114/58 119/58 119/58 O2 Sat by Pulse 92 89 92 Oximetry 06/19/21 06/19/21 06/19/21 14:40 14:45 14:50 Temperature Pulse Rate 126 H 126 H 128 H Pulse Rate [ From Monitor] Respiratory 23 18 16 Rate Blood Pressure 123/60 123/60 126/62 O2 Sat by Pulse 88 91 89 Oximetry 06/19/21 06/19/21 06/19/21 14:55 15:00 15:05 Temperature Pulse Rate 126 H 126 H 126 H Pulse Rate [ From Monitor] Respiratory 21 29 H 22 Rate Blood Pressure 126/62 121/61 121/61 O2 Sat by Pulse 91 89 91 Oximetry 06/19/21 06/19/21 06/19/21 15:10 15:15 15:20 Temperature Pulse Rate 127 H 126 H 126 H Pulse Rate [ From Monitor] Respiratory 20 16 22 Rate Blood Pressure 124/60 124/60 127/61 O2 Sat by Pulse 89 91 88 Oximetry 06/19/21 06/19/21 06/19/21 15:25 15:30 15:35 Temperature Pulse Rate 127 H 126 H 126 H Pulse Rate [ From Monitor] Respiratory 19 17 18 Rate Blood Pressure 127/61 122/59 122/59 O2 Sat by Pulse 90 89 91 Oximetry 06/19/21 06/19/21 06/19/21 15:40 15:45 15:50 Temperature Pulse Rate 126 H 126 H 127 H Pulse Rate [ From Monitor] Respiratory 24 21 22 Rate Blood Pressure 122/62 122/62 115/60 O2 Sat by Pulse 88 91 89 Oximetry 06/19/21 06/19/21 06/19/21 15:55 16:00 16:18 Temperature Pulse Rate 126 H 125 H 124 H Pulse Rate [ 134 H From Monitor] Respiratory 18 22 Rate Blood Pressure 115/60 120/58 129/67 O2 Sat by Pulse 91 88 95 Oximetry Constitutional: appears uncomfortable, other (middle aged male with mildly increased respiratory effort at rest on BIPAP) Eyes: non-icteric ENT: oropharynx moist, other (BIPAP FFM) Neck: supple, no JVD Effort: mildly labored Ascultation: Bilateral: diminished breath sounds (bases), rhonchi Percussion: Bilateral: not dull Cardiovascular: regular rate and rhythm Gastrointestinal: hypoactive bowel sounds, soft, non-tender, other (distended but very soft) Integumentary: normal Extremities: no cyanosis, no edema, pulses normal, no ischemia or petechiae Neurologic: pupils equal and round, CN II-XII normal, other (somnolent) Psychiatric: other (flat affect) CBC and BMP: 06/19/21 08:55 06/19/21 09:41 ABG, PT/INR, D-dimer: ABG ABG pH 7.270 (7.320-7.450) L 06/19/21 02:41 POC ABG pCO2 49.0 mmHg (32.0-48.0) H 06/19/21 02:41 ABG pCO2 29.0 mm Hg 05/30/21 22:32 POC ABG pO2 100.4 mmHg (83-108) 06/19/21 02:41 ABG pO2 141.8 mm Hg (80.0-90.0) H 05/30/21 22:32 POC ABG HCO3 22.0 06/19/21 02:41 ABG O2 Saturation 96.8 (0-100) 06/19/21 02:41 PT/INR, D-dimer PT 19.2 Sec. (12.2-14.9) H 06/19/21 09:37 INR 1.46 (0.87-1.13) H 06/19/21 09:37 D-Dimer 3584.01 ng/mlDDU (0-234) H 05/27/21 08:09 Abnormal lab findings: Abnormal Labs 05/23/21 05/23/21 05/23/21 18:48 18:48 18:48 WBC 11.8 H RBC 5.18 H Hgb Hct MCV MCH MCHC RDW Plt Count Seg Neuts % (Manual) 84.0 H Lymphocytes % (Manual) Monocytes % (Manual) Nucleated RBC % Seg Neutrophils # Man 9.9 H Lymphocytes # (Manual) PT INR APTT D-Dimer > 43173 H ABG pH POC ABG pCO2 POC ABG pO2 ABG pO2 ABG HCO3 ABG Base Excess ABG Hemoglobin ABG Oxyhemoglobin ABG Sodium ABG Potassium ABG Chloride ABG Glucose VBG pH Carboxyhemoglobin Sodium Potassium Chloride Carbon Dioxide BUN Creatinine Glucose POC Glucose Lactic Acid 2.30 H* Calcium Phosphorus Magnesium Ferritin AST ALT Ammonia Lactate Dehydrogenase Troponin T C-Reactive Protein Total Protein Albumin Triglycerides LDL Cholesterol Direct HDL Cholesterol Arterial Blood Glucose Arterial Blood Ionized Calcium Urine WBC (Auto) Urine Creatinine Vancomycin Trough 05/23/21 05/23/21 05/23/21 18:48 18:48 18:48 WBC RBC Hgb Hct MCV MCH MCHC RDW Plt Count Seg Neuts % (Manual) Lymphocytes % (Manual) Monocytes % (Manual) Nucleated RBC % Seg Neutrophils # Man Lymphocytes # (Manual) PT INR APTT D-Dimer ABG pH POC ABG pCO2 POC ABG pO2 ABG pO2 ABG HCO3 ABG Base Excess ABG Hemoglobin ABG Oxyhemoglobin ABG Sodium ABG Potassium ABG Chloride ABG Glucose VBG pH Carboxyhemoglobin Sodium 151 H Potassium 5.1 H Chloride 113.2 H Carbon Dioxide 17 L BUN 180 H Creatinine 4.3 H Glucose 114 H POC Glucose Lactic Acid Calcium Phosphorus Magnesium Ferritin 2000.0 H AST ALT Ammonia 22.0 L Lactate Dehydrogenase 577 H Troponin T C-Reactive Protein 8.80 H Total Protein 9.4 H Albumin 3.0 L Triglycerides LDL Cholesterol Direct HDL Cholesterol Arterial Blood Glucose Arterial Blood Ionized Calcium Urine WBC (Auto) Urine Creatinine Vancomycin Trough 05/23/21 05/24/21 05/24/21 21:06 02:09 02:09 WBC RBC Hgb Hct MCV MCH MCHC RDW Plt Count Seg Neuts % (Manual) Lymphocytes % (Manual) Monocytes % (Manual) Nucleated RBC % Seg Neutrophils # Man Lymphocytes # (Manual) PT INR APTT D-Dimer ABG pH POC ABG pCO2 POC ABG pO2 ABG pO2 ABG HCO3 ABG Base Excess ABG Hemoglobin ABG Oxyhemoglobin ABG Sodium ABG Potassium ABG Chloride ABG Glucose VBG pH 7.254 L Carboxyhemoglobin Sodium Potassium Chloride Carbon Dioxide BUN Creatinine Glucose POC Glucose Lactic Acid 2.10 H* 2.30 H* Calcium Phosphorus Magnesium Ferritin AST ALT Ammonia Lactate Dehydrogenase Troponin T C-Reactive Protein Total Protein Albumin Triglycerides LDL Cholesterol Direct HDL Cholesterol Arterial Blood Glucose Arterial Blood Ionized Calcium Urine WBC (Auto) Urine Creatinine Vancomycin Trough 05/24/21 05/24/21 05/24/21 13:11 17:34 18:12 WBC RBC Hgb Hct MCV MCH MCHC RDW Plt Count Seg Neuts % (Manual) Lymphocytes % (Manual) Monocytes % (Manual) Nucleated RBC % Seg Neutrophils # Man Lymphocytes # (Manual) PT INR APTT D-Dimer ABG pH POC ABG pCO2 POC ABG pO2 ABG pO2 ABG HCO3 ABG Base Excess ABG Hemoglobin ABG Oxyhemoglobin ABG Sodium ABG Potassium ABG Chloride ABG Glucose VBG pH Carboxyhemoglobin Sodium 155 H Potassium 6.9 H* D 5.7 H Chloride 121.9 H Carbon Dioxide 20 L BUN 139 H Creatinine 2.7 H Glucose 139 H POC Glucose 153 H Lactic Acid Calcium Phosphorus Magnesium Ferritin AST ALT Ammonia Lactate Dehydrogenase Troponin T C-Reactive Protein Total Protein Albumin Triglycerides LDL Cholesterol Direct HDL Cholesterol Arterial Blood Glucose Arterial Blood Ionized Calcium Urine WBC (Auto) Urine Creatinine Vancomycin Trough 05/25/21 05/25/21 05/26/21 11:33 11:33 03:15 WBC 13.8 H RBC 5.06 H Hgb Hct MCV MCH MCHC RDW Plt Count Seg Neuts % (Manual) Lymphocytes % (Manual) Monocytes % (Manual) Nucleated RBC % Seg Neutrophils # Man Lymphocytes # (Manual) PT INR APTT D-Dimer ABG pH POC ABG pCO2 POC ABG pO2 ABG pO2 ABG HCO3 ABG Base Excess ABG Hemoglobin ABG Oxyhemoglobin ABG Sodium ABG Potassium ABG Chloride ABG Glucose VBG pH Carboxyhemoglobin Sodium 164 H* D 166 H* Potassium 5.4 H 5.5 H Chloride 131.3 H 129.2 H Carbon Dioxide BUN 109 H 102 H Creatinine 1.9 H 1.8 H Glucose 117 H 113 H POC Glucose Lactic Acid Calcium Phosphorus Magnesium Ferritin AST ALT Ammonia Lactate Dehydrogenase 711 H Troponin T C-Reactive Protein 7.90 H Total Protein Albumin Triglycerides LDL Cholesterol Direct HDL Cholesterol Arterial Blood Glucose Arterial Blood Ionized Calcium Urine WBC (Auto) Urine Creatinine Vancomycin Trough 05/26/21 05/26/21 05/26/21 03:15 03:15 03:15 WBC 13.1 H RBC 5.43 H Hgb 15.3 H Hct 48.5 H MCV MCH MCHC RDW 15.4 H Plt Count Seg Neuts % (Manual) Lymphocytes % (Manual) Monocytes % (Manual) Nucleated RBC % Seg Neutrophils # Man Lymphocytes # (Manual) PT INR APTT D-Dimer 6229.14 H ABG pH POC ABG pCO2 POC ABG pO2 ABG pO2 ABG HCO3 ABG Base Excess ABG Hemoglobin ABG Oxyhemoglobin ABG Sodium ABG Potassium ABG Chloride ABG Glucose VBG pH Carboxyhemoglobin Sodium Potassium Chloride Carbon Dioxide BUN Creatinine Glucose POC Glucose Lactic Acid Calcium Phosphorus Magnesium Ferritin 2991.0 H AST ALT Ammonia Lactate Dehydrogenase Troponin T C-Reactive Protein Total Protein Albumin Triglycerides LDL Cholesterol Direct HDL Cholesterol Arterial Blood Glucose Arterial Blood Ionized Calcium Urine WBC (Auto) Urine Creatinine Vancomycin Trough 05/27/21 05/27/21 05/27/21 08:09 08:09 08:09 WBC 12.4 H RBC 5.27 H Hgb Hct 46.6 H MCV MCH MCHC 31 L RDW 15.7 H Plt Count Seg Neuts % (Manual) Lymphocytes % (Manual) Monocytes % (Manual) Nucleated RBC % Seg Neutrophils # Man Lymphocytes # (Manual) PT INR APTT D-Dimer 3584.01 H ABG pH POC ABG pCO2 POC ABG pO2 ABG pO2 ABG HCO3 ABG Base Excess ABG Hemoglobin ABG Oxyhemoglobin ABG Sodium ABG Potassium ABG Chloride ABG Glucose VBG pH Carboxyhemoglobin Sodium 174 H* Potassium Chloride 136.9 H Carbon Dioxide BUN 90 H Creatinine 1.8 H Glucose POC Glucose Lactic Acid Calcium Phosphorus Magnesium Ferritin AST ALT Ammonia Lactate Dehydrogenase 642 H Troponin T C-Reactive Protein 5.20 H Total Protein Albumin Triglycerides LDL Cholesterol Direct HDL Cholesterol Arterial Blood Glucose Arterial Blood Ionized Calcium Urine WBC (Auto) Urine Creatinine Vancomycin Trough 05/27/21 05/28/21 05/28/21 08:09 07:31 07:31 WBC RBC Hgb Hct MCV MCH 27 L MCHC 31 L RDW Plt Count Seg Neuts % (Manual) 88.0 H Lymphocytes % (Manual) 11.0 L Monocytes % (Manual) Nucleated RBC % Seg Neutrophils # Man 8.3 H Lymphocytes # (Manual) 1.0 L PT INR APTT D-Dimer ABG pH POC ABG pCO2 POC ABG pO2 ABG pO2 ABG HCO3 ABG Base Excess ABG Hemoglobin ABG Oxyhemoglobin ABG Sodium ABG Potassium ABG Chloride ABG Glucose VBG pH Carboxyhemoglobin Sodium 162 H* D Potassium Chloride 125.8 H Carbon Dioxide BUN 72 H Creatinine 1.6 H Glucose 131 H POC Glucose Lactic Acid Calcium Phosphorus Magnesium 3.00 H Ferritin 2742.0 H AST ALT Ammonia Lactate Dehydrogenase Troponin T C-Reactive Protein Total Protein Albumin Triglycerides LDL Cholesterol Direct HDL Cholesterol Arterial Blood Glucose Arterial Blood Ionized Calcium Urine WBC (Auto) Urine Creatinine Vancomycin Trough 05/29/21 05/29/21 05/29/21 06:40 06:40 17:58 WBC 14.1 H RBC Hgb Hct MCV MCH 27 L MCHC 31 L RDW Plt Count Seg Neuts % (Manual) 85.0 H Lymphocytes % (Manual) 9.0 L Monocytes % (Manual) Nucleated RBC % 1.0 H Seg Neutrophils # Man 12.0 H Lymphocytes # (Manual) PT INR APTT D-Dimer ABG pH 7.505 H POC ABG pCO2 30.3 L POC ABG pO2 128.1 H ABG pO2 ABG HCO3 ABG Base Excess ABG Hemoglobin 11.9 L ABG Oxyhemoglobin ABG Sodium ABG Potassium ABG Chloride 113.0 H ABG Glucose 110 H VBG pH Carboxyhemoglobin Sodium 148 H D Potassium Chloride 111.3 H Carbon Dioxide 20 L BUN 45 H Creatinine Glucose POC Glucose Lactic Acid Calcium Phosphorus 2.10 L D Magnesium Ferritin AST ALT Ammonia Lactate Dehydrogenase Troponin T C-Reactive Protein Total Protein Albumin Triglycerides LDL Cholesterol Direct HDL Cholesterol Arterial Blood Glucose 110 H Arterial Blood Ionized Calcium 4.5 L Urine WBC (Auto) Urine Creatinine Vancomycin Trough 05/30/21 05/30/21 05/30/21 01:00 06:06 13:48 WBC RBC Hgb Hct MCV MCH MCHC RDW Plt Count Seg Neuts % (Manual) Lymphocytes % (Manual) Monocytes % (Manual) Nucleated RBC % Seg Neutrophils # Man Lymphocytes # (Manual) PT INR APTT D-Dimer ABG pH POC ABG pCO2 POC ABG pO2 ABG pO2 90.9 H ABG HCO3 ABG Base Excess ABG Hemoglobin 11.8 L ABG Oxyhemoglobin ABG Sodium ABG Potassium ABG Chloride ABG Glucose VBG pH Carboxyhemoglobin Sodium 150 H Potassium Chloride 117.6 H Carbon Dioxide BUN 40 H Creatinine Glucose POC Glucose Lactic Acid Calcium 8.3 L Phosphorus Magnesium Ferritin AST ALT Ammonia Lactate Dehydrogenase Troponin T C-Reactive Protein Total Protein Albumin Triglycerides LDL Cholesterol Direct HDL Cholesterol Arterial Blood Glucose Arterial Blood Ionized Calcium Urine WBC (Auto) 12.0 H Urine Creatinine Vancomycin Trough 05/30/21 05/31/21 05/31/21 22:32 02:22 02:22 WBC RBC Hgb 11.2 L Hct 34.8 L MCV MCH MCHC RDW Plt Count 127 L Seg Neuts % (Manual) 97.0 H Lymphocytes % (Manual) Monocytes % (Manual) Nucleated RBC % Seg Neutrophils # Man 10.5 H Lymphocytes # (Manual) 0.0 L PT INR APTT D-Dimer ABG pH 7.454 H POC ABG pCO2 POC ABG pO2 ABG pO2 141.8 H ABG HCO3 19.9 L ABG Base Excess -2.7 L ABG Hemoglobin ABG Oxyhemoglobin ABG Sodium ABG Potassium ABG Chloride ABG Glucose VBG pH Carboxyhemoglobin Sodium 152 H Potassium Chloride 118.9 H Carbon Dioxide 19 L BUN 48 H Creatinine 1.5 H Glucose 101 H POC Glucose Lactic Acid Calcium 8.3 L Phosphorus Magnesium Ferritin AST ALT Ammonia Lactate Dehydrogenase Troponin T C-Reactive Protein Total Protein Albumin Triglycerides LDL Cholesterol Direct HDL Cholesterol Arterial Blood Glucose Arterial Blood Ionized Calcium Urine WBC (Auto) Urine Creatinine Vancomycin Trough 05/31/21 05/31/21 06/01/21 11:42 21:28 07:10 WBC RBC Hgb Hct MCV MCH MCHC RDW Plt Count Seg Neuts % (Manual) Lymphocytes % (Manual) Monocytes % (Manual) Nucleated RBC % Seg Neutrophils # Man Lymphocytes # (Manual) PT INR APTT D-Dimer ABG pH POC ABG pCO2 POC ABG pO2 ABG pO2 ABG HCO3 ABG Base Excess ABG Hemoglobin ABG Oxyhemoglobin ABG Sodium ABG Potassium ABG Chloride ABG Glucose VBG pH Carboxyhemoglobin Sodium 150 H Potassium Chloride 115.7 H Carbon Dioxide BUN 47 H Creatinine Glucose 115 H POC Glucose 161 H Lactic Acid Calcium Phosphorus Magnesium 2.50 H Ferritin AST ALT Ammonia Lactate Dehydrogenase Troponin T C-Reactive Protein Total Protein Albumin Triglycerides LDL Cholesterol Direct HDL Cholesterol Arterial Blood Glucose Arterial Blood Ionized Calcium Urine WBC (Auto) Urine Creatinine Vancomycin Trough 20.2 H 06/01/21 06/01/21 06/01/21 07:10 07:54 10:39 WBC RBC Hgb 10.7 L Hct 33.5 L MCV MCH MCHC RDW Plt Count Seg Neuts % (Manual) 92.0 H Lymphocytes % (Manual) 4.0 L Monocytes % (Manual) Nucleated RBC % Seg Neutrophils # Man Lymphocytes # (Manual) 0.3 L PT INR APTT D-Dimer ABG pH POC ABG pCO2 POC ABG pO2 ABG pO2 ABG HCO3 ABG Base Excess ABG Hemoglobin ABG Oxyhemoglobin ABG Sodium ABG Potassium ABG Chloride ABG Glucose VBG pH Carboxyhemoglobin Sodium 152 H Potassium Chloride 117.6 H Carbon Dioxide BUN 50 H Creatinine Glucose 140 H POC Glucose 127 H Lactic Acid Calcium 8.3 L Phosphorus Magnesium Ferritin AST ALT Ammonia Lactate Dehydrogenase Troponin T C-Reactive Protein Total Protein Albumin Triglycerides LDL Cholesterol Direct HDL Cholesterol Arterial Blood Glucose Arterial Blood Ionized Calcium Urine WBC (Auto) Urine Creatinine Vancomycin Trough 06/01/21 06/01/21 06/01/21 11:11 16:16 21:45 WBC RBC Hgb Hct MCV MCH MCHC RDW Plt Count Seg Neuts % (Manual) Lymphocytes % (Manual) Monocytes % (Manual) Nucleated RBC % Seg Neutrophils # Man Lymphocytes # (Manual) PT INR APTT D-Dimer ABG pH POC ABG pCO2 POC ABG pO2 ABG pO2 ABG HCO3 ABG Base Excess ABG Hemoglobin ABG Oxyhemoglobin ABG Sodium ABG Potassium ABG Chloride ABG Glucose VBG pH Carboxyhemoglobin Sodium Potassium Chloride Carbon Dioxide BUN Creatinine Glucose POC Glucose 120 H 129 H 150 H Lactic Acid Calcium Phosphorus Magnesium Ferritin AST ALT Ammonia Lactate Dehydrogenase Troponin T C-Reactive Protein Total Protein Albumin Triglycerides LDL Cholesterol Direct HDL Cholesterol Arterial Blood Glucose Arterial Blood Ionized Calcium Urine WBC (Auto) Urine Creatinine Vancomycin Trough 06/02/21 06/02/21 06/02/21 06:53 06:53 07:52 WBC RBC Hgb 10.4 L Hct 32.4 L MCV MCH 27 L MCHC RDW Plt Count Seg Neuts % (Manual) 93.0 H Lymphocytes % (Manual) 3.0 L Monocytes % (Manual) Nucleated RBC % Seg Neutrophils # Man Lymphocytes # (Manual) 0.2 L PT INR APTT D-Dimer ABG pH POC ABG pCO2 POC ABG pO2 ABG pO2 ABG HCO3 ABG Base Excess ABG Hemoglobin ABG Oxyhemoglobin ABG Sodium ABG Potassium ABG Chloride ABG Glucose VBG pH Carboxyhemoglobin Sodium 149 H Potassium Chloride 112.6 H Carbon Dioxide BUN 54 H Creatinine Glucose 123 H POC Glucose 116 H Lactic Acid Calcium 8.2 L Phosphorus Magnesium Ferritin AST ALT Ammonia Lactate Dehydrogenase Troponin T C-Reactive Protein Total Protein Albumin Triglycerides LDL Cholesterol Direct HDL Cholesterol Arterial Blood Glucose Arterial Blood Ionized Calcium Urine WBC (Auto) Urine Creatinine Vancomycin Trough 06/03/21 06/03/21 06/03/21 05:57 05:57 21:23 WBC RBC Hgb 10.7 L Hct 33.0 L MCV 83 L MCH 27 L MCHC RDW Plt Count Seg Neuts % (Manual) 88.0 H Lymphocytes % (Manual) 8.0 L Monocytes % (Manual) Nucleated RBC % 2.0 H Seg Neutrophils # Man Lymphocytes # (Manual) 0.6 L PT INR APTT D-Dimer ABG pH POC ABG pCO2 POC ABG pO2 39.0 L ABG pO2 ABG HCO3 ABG Base Excess ABG Hemoglobin ABG Oxyhemoglobin 69.1 L ABG Sodium 134.1 L ABG Potassium ABG Chloride ABG Glucose 135 H VBG pH Carboxyhemoglobin Sodium Potassium Chloride Carbon Dioxide BUN 36 H Creatinine Glucose 102 H POC Glucose Lactic Acid Calcium 8.0 L Phosphorus 2.20 L D Magnesium Ferritin AST ALT Ammonia Lactate Dehydrogenase Troponin T C-Reactive Protein Total Protein Albumin Triglycerides LDL Cholesterol Direct HDL Cholesterol Arterial Blood Glucose 135 H Arterial Blood Ionized Calcium Urine WBC (Auto) Urine Creatinine Vancomycin Trough 06/04/21 06/04/21 06/04/21 07:04 07:04 17:42 WBC RBC Hgb 11.3 L Hct 34.9 L MCV MCH 27 L MCHC RDW Plt Count Seg Neuts % (Manual) Lymphocytes % (Manual) 5.0 L Monocytes % (Manual) Nucleated RBC % Seg Neutrophils # Man 8.4 H Lymphocytes # (Manual) 0.5 L PT INR APTT D-Dimer ABG pH POC ABG pCO2 POC ABG pO2 ABG pO2 ABG HCO3 ABG Base Excess ABG Hemoglobin ABG Oxyhemoglobin ABG Sodium ABG Potassium ABG Chloride ABG Glucose VBG pH Carboxyhemoglobin Sodium Potassium Chloride Carbon Dioxide BUN 27 H Creatinine Glucose POC Glucose 136 H Lactic Acid Calcium 8.2 L Phosphorus Magnesium Ferritin AST ALT Ammonia Lactate Dehydrogenase Troponin T C-Reactive Protein Total Protein Albumin Triglycerides LDL Cholesterol Direct HDL Cholesterol Arterial Blood Glucose Arterial Blood Ionized Calcium Urine WBC (Auto) Urine Creatinine Vancomycin Trough 06/05/21 06/05/21 06/05/21 05:10 12:32 15:45 WBC RBC Hgb Hct MCV MCH MCHC RDW Plt Count Seg Neuts % (Manual) Lymphocytes % (Manual) Monocytes % (Manual) Nucleated RBC % Seg Neutrophils # Man Lymphocytes # (Manual) PT INR APTT D-Dimer ABG pH POC ABG pCO2 POC ABG pO2 ABG pO2 ABG HCO3 ABG Base Excess ABG Hemoglobin ABG Oxyhemoglobin ABG Sodium ABG Potassium ABG Chloride ABG Glucose VBG pH Carboxyhemoglobin Sodium Potassium 3.5 L Chloride Carbon Dioxide BUN 35 H Creatinine Glucose 130 H POC Glucose 122 H 119 H Lactic Acid Calcium 8.2 L Phosphorus Magnesium Ferritin AST ALT Ammonia Lactate Dehydrogenase Troponin T C-Reactive Protein Total Protein Albumin Triglycerides LDL Cholesterol Direct HDL Cholesterol Arterial Blood Glucose Arterial Blood Ionized Calcium Urine WBC (Auto) Urine Creatinine Vancomycin Trough 06/05/21 06/05/21 06/06/21 20:06 21:27 00:04 WBC RBC Hgb Hct MCV MCH MCHC RDW Plt Count Seg Neuts % (Manual) Lymphocytes % (Manual) Monocytes % (Manual) Nucleated RBC % Seg Neutrophils # Man Lymphocytes # (Manual) PT INR APTT D-Dimer ABG pH 7.456 H POC ABG pCO2 POC ABG pO2 ABG pO2 ABG HCO3 ABG Base Excess ABG Hemoglobin 10.3 L ABG Oxyhemoglobin ABG Sodium ABG Potassium 3.1 L ABG Chloride ABG Glucose 125 H VBG pH Carboxyhemoglobin 0.3 L Sodium Potassium Chloride Carbon Dioxide BUN Creatinine Glucose POC Glucose 113 H Lactic Acid Calcium Phosphorus Magnesium Ferritin AST ALT Ammonia Lactate Dehydrogenase Troponin T C-Reactive Protein 19.60 H Total Protein Albumin Triglycerides LDL Cholesterol Direct HDL Cholesterol Arterial Blood Glucose 125 H Arterial Blood Ionized Calcium Urine WBC (Auto) Urine Creatinine Vancomycin Trough 06/06/21 06/06/21 06/07/21 04:35 22:37 05:54 WBC RBC Hgb Hct MCV MCH MCHC RDW Plt Count Seg Neuts % (Manual) Lymphocytes % (Manual) Monocytes % (Manual) Nucleated RBC % Seg Neutrophils # Man Lymphocytes # (Manual) PT INR APTT D-Dimer ABG pH POC ABG pCO2 POC ABG pO2 ABG pO2 ABG HCO3 ABG Base Excess ABG Hemoglobin ABG Oxyhemoglobin ABG Sodium ABG Potassium ABG Chloride ABG Glucose VBG pH Carboxyhemoglobin Sodium Potassium Chloride Carbon Dioxide BUN 43 H Creatinine Glucose POC Glucose 114 H 130 H Lactic Acid Calcium 7.6 L Phosphorus Magnesium Ferritin AST ALT Ammonia Lactate Dehydrogenase Troponin T C-Reactive Protein Total Protein Albumin Triglycerides LDL Cholesterol Direct HDL Cholesterol Arterial Blood Glucose Arterial Blood Ionized Calcium Urine WBC (Auto) Urine Creatinine Vancomycin Trough 06/07/21 06/07/21 06/07/21 07:32 10:03 11:36 WBC RBC 3.63 L Hgb 9.8 L Hct 30.3 L MCV 83 L MCH 27 L MCHC RDW Plt Count Seg Neuts % (Manual) Lymphocytes % (Manual) Monocytes % (Manual) Nucleated RBC % Seg Neutrophils # Man Lymphocytes # (Manual) PT INR APTT D-Dimer ABG pH POC ABG pCO2 POC ABG pO2 ABG pO2 ABG HCO3 ABG Base Excess ABG Hemoglobin ABG Oxyhemoglobin ABG Sodium ABG Potassium ABG Chloride ABG Glucose VBG pH Carboxyhemoglobin Sodium Potassium 3.2 L Chloride 108.5 H Carbon Dioxide BUN 36 H Creatinine Glucose 139 H POC Glucose 125 H Lactic Acid Calcium 8.0 L Phosphorus Magnesium Ferritin AST ALT Ammonia Lactate Dehydrogenase Troponin T C-Reactive Protein Total Protein Albumin Triglycerides LDL Cholesterol Direct HDL Cholesterol Arterial Blood Glucose Arterial Blood Ionized Calcium Urine WBC (Auto) Urine Creatinine Vancomycin Trough 06/07/21 06/07/21 06/08/21 17:54 22:14 07:18 WBC RBC Hgb Hct MCV MCH MCHC RDW Plt Count Seg Neuts % (Manual) Lymphocytes % (Manual) Monocytes % (Manual) Nucleated RBC % Seg Neutrophils # Man Lymphocytes # (Manual) PT INR APTT D-Dimer ABG pH POC ABG pCO2 POC ABG pO2 ABG pO2 ABG HCO3 ABG Base Excess ABG Hemoglobin ABG Oxyhemoglobin ABG Sodium ABG Potassium ABG Chloride ABG Glucose VBG pH Carboxyhemoglobin Sodium 149 H Potassium Chloride 110.2 H Carbon Dioxide BUN 31 H Creatinine Glucose 131 H POC Glucose 121 H 131 H Lactic Acid Calcium 8.1 L Phosphorus Magnesium Ferritin AST ALT Ammonia Lactate Dehydrogenase Troponin T C-Reactive Protein Total Protein Albumin Triglycerides LDL Cholesterol Direct HDL Cholesterol Arterial Blood Glucose Arterial Blood Ionized Calcium Urine WBC (Auto) Urine Creatinine Vancomycin Trough 06/08/21 06/08/21 06/08/21 07:45 12:07 18:02 WBC RBC Hgb Hct MCV MCH MCHC RDW Plt Count Seg Neuts % (Manual) Lymphocytes % (Manual) Monocytes % (Manual) Nucleated RBC % Seg Neutrophils # Man Lymphocytes # (Manual) PT INR APTT D-Dimer ABG pH POC ABG pCO2 POC ABG pO2 ABG pO2 ABG HCO3 ABG Base Excess ABG Hemoglobin ABG Oxyhemoglobin ABG Sodium ABG Potassium ABG Chloride ABG Glucose VBG pH Carboxyhemoglobin Sodium Potassium Chloride Carbon Dioxide BUN Creatinine Glucose POC Glucose 120 H 127 H 148 H Lactic Acid Calcium Phosphorus Magnesium Ferritin AST ALT Ammonia Lactate Dehydrogenase Troponin T C-Reactive Protein Total Protein Albumin Triglycerides LDL Cholesterol Direct HDL Cholesterol Arterial Blood Glucose Arterial Blood Ionized Calcium Urine WBC (Auto) Urine Creatinine Vancomycin Trough 06/09/21 06/09/21 06/09/21 05:51 05:51 11:37 WBC 3.9 L RBC 3.38 L Hgb 9.4 L Hct 28.5 L MCV MCH MCHC RDW Plt Count Seg Neuts % (Manual) Lymphocytes % (Manual) Monocytes % (Manual) Nucleated RBC % Seg Neutrophils # Man Lymphocytes # (Manual) PT INR APTT D-Dimer ABG pH POC ABG pCO2 POC ABG pO2 ABG pO2 ABG HCO3 ABG Base Excess ABG Hemoglobin ABG Oxyhemoglobin ABG Sodium ABG Potassium ABG Chloride ABG Glucose VBG pH Carboxyhemoglobin Sodium Potassium Chloride 108.4 H Carbon Dioxide BUN 32 H Creatinine Glucose 137 H POC Glucose 115 H Lactic Acid Calcium 7.5 L Phosphorus Magnesium Ferritin AST 55 H ALT Ammonia Lactate Dehydrogenase Troponin T C-Reactive Protein 4.10 H Total Protein 5.6 L Albumin 2.0 L Triglycerides LDL Cholesterol Direct HDL Cholesterol Arterial Blood Glucose Arterial Blood Ionized Calcium Urine WBC (Auto) Urine Creatinine Vancomycin Trough 06/09/21 06/09/21 06/10/21 17:32 22:18 01:52 WBC RBC 3.62 L Hgb 9.9 L Hct 29.8 L MCV 82 L MCH 27 L MCHC RDW Plt Count Seg Neuts % (Manual) Lymphocytes % (Manual) Monocytes % (Manual) Nucleated RBC % Seg Neutrophils # Man Lymphocytes # (Manual) PT INR APTT D-Dimer ABG pH POC ABG pCO2 POC ABG pO2 ABG pO2 ABG HCO3 ABG Base Excess ABG Hemoglobin ABG Oxyhemoglobin ABG Sodium ABG Potassium ABG Chloride ABG Glucose VBG pH Carboxyhemoglobin Sodium Potassium Chloride Carbon Dioxide BUN Creatinine Glucose POC Glucose 113 H 110 H Lactic Acid Calcium Phosphorus Magnesium Ferritin AST ALT Ammonia Lactate Dehydrogenase Troponin T C-Reactive Protein Total Protein Albumin Triglycerides LDL Cholesterol Direct HDL Cholesterol Arterial Blood Glucose Arterial Blood Ionized Calcium Urine WBC (Auto) Urine Creatinine Vancomycin Trough 06/10/21 06/10/21 06/10/21 01:52 16:14 22:45 WBC RBC Hgb Hct MCV MCH MCHC RDW Plt Count Seg Neuts % (Manual) Lymphocytes % (Manual) Monocytes % (Manual) Nucleated RBC % Seg Neutrophils # Man Lymphocytes # (Manual) PT INR APTT D-Dimer ABG pH POC ABG pCO2 POC ABG pO2 ABG pO2 ABG HCO3 ABG Base Excess ABG Hemoglobin ABG Oxyhemoglobin ABG Sodium ABG Potassium ABG Chloride ABG Glucose VBG pH Carboxyhemoglobin Sodium Potassium Chloride 108.2 H Carbon Dioxide BUN 32 H Creatinine 1.4 H Glucose POC Glucose 111 H 107 H Lactic Acid Calcium 7.8 L Phosphorus Magnesium Ferritin AST 55 H ALT Ammonia Lactate Dehydrogenase Troponin T C-Reactive Protein Total Protein 5.6 L Albumin 1.9 L Triglycerides LDL Cholesterol Direct HDL Cholesterol Arterial Blood Glucose Arterial Blood Ionized Calcium Urine WBC (Auto) Urine Creatinine Vancomycin Trough 06/11/21 06/11/21 06/11/21 05:51 05:51 05:51 WBC RBC 3.35 L Hgb 9.1 L Hct 28.1 L MCV MCH 27 L MCHC RDW Plt Count 117 L Seg Neuts % (Manual) 93.0 H Lymphocytes % (Manual) 1.0 L Monocytes % (Manual) Nucleated RBC % Seg Neutrophils # Man Lymphocytes # (Manual) 0.0 L PT INR APTT D-Dimer ABG pH POC ABG pCO2 POC ABG pO2 ABG pO2 ABG HCO3 ABG Base Excess ABG Hemoglobin ABG Oxyhemoglobin ABG Sodium ABG Potassium ABG Chloride ABG Glucose VBG pH Carboxyhemoglobin Sodium 146 H Potassium Chloride 110.9 H Carbon Dioxide BUN 40 H Creatinine Glucose 119 H POC Glucose Lactic Acid Calcium 7.8 L Phosphorus Magnesium Ferritin AST ALT Ammonia Lactate Dehydrogenase Troponin T C-Reactive Protein Total Protein Albumin Triglycerides LDL Cholesterol Direct HDL Cholesterol Arterial Blood Glucose Arterial Blood Ionized Calcium Urine WBC (Auto) Urine Creatinine Vancomycin Trough 22.6 H 06/11/21 06/11/21 06/11/21 08:28 11:36 15:47 WBC RBC Hgb Hct MCV MCH MCHC RDW Plt Count Seg Neuts % (Manual) Lymphocytes % (Manual) Monocytes % (Manual) Nucleated RBC % Seg Neutrophils # Man Lymphocytes # (Manual) PT INR APTT D-Dimer ABG pH POC ABG pCO2 POC ABG pO2 ABG pO2 ABG HCO3 ABG Base Excess ABG Hemoglobin ABG Oxyhemoglobin ABG Sodium ABG Potassium ABG Chloride ABG Glucose VBG pH Carboxyhemoglobin Sodium Potassium Chloride Carbon Dioxide BUN Creatinine Glucose POC Glucose 109 H 149 H 139 H Lactic Acid Calcium Phosphorus Magnesium Ferritin AST ALT Ammonia Lactate Dehydrogenase Troponin T C-Reactive Protein Total Protein Albumin Triglycerides LDL Cholesterol Direct HDL Cholesterol Arterial Blood Glucose Arterial Blood Ionized Calcium Urine WBC (Auto) Urine Creatinine Vancomycin Trough 06/11/21 06/12/21 06/12/21 21:42 04:00 04:00 WBC 4.0 L RBC 3.50 L Hgb 9.4 L Hct 29.9 L MCV MCH 27 L MCHC 31 L RDW 15.3 H Plt Count 126 L Seg Neuts % (Manual) 88.0 H Lymphocytes % (Manual) Monocytes % (Manual) 12.0 H Nucleated RBC % Seg Neutrophils # Man Lymphocytes # (Manual) 0.0 L PT INR APTT D-Dimer ABG pH POC ABG pCO2 POC ABG pO2 ABG pO2 ABG HCO3 ABG Base Excess ABG Hemoglobin ABG Oxyhemoglobin ABG Sodium ABG Potassium ABG Chloride ABG Glucose VBG pH Carboxyhemoglobin Sodium 149 H Potassium Chloride 114.1 H Carbon Dioxide BUN 37 H Creatinine Glucose 137 H POC Glucose 124 H Lactic Acid Calcium 8.0 L Phosphorus Magnesium Ferritin AST ALT Ammonia Lactate Dehydrogenase Troponin T C-Reactive Protein Total Protein Albumin Triglycerides LDL Cholesterol Direct HDL Cholesterol Arterial Blood Glucose Arterial Blood Ionized Calcium Urine WBC (Auto) Urine Creatinine Vancomycin Trough 06/12/21 06/13/21 06/13/21 06:37 00:14 06:05 WBC 4.3 L RBC 3.39 L Hgb 9.2 L Hct 28.6 L MCV MCH 27 L MCHC RDW 15.3 H Plt Count 107 L Seg Neuts % (Manual) 77.0 H Lymphocytes % (Manual) 1.0 L Monocytes % (Manual) Nucleated RBC % 1.0 H Seg Neutrophils # Man Lymphocytes # (Manual) 0.0 L PT INR APTT D-Dimer ABG pH POC ABG pCO2 POC ABG pO2 ABG pO2 ABG HCO3 ABG Base Excess ABG Hemoglobin ABG Oxyhemoglobin ABG Sodium ABG Potassium ABG Chloride ABG Glucose VBG pH Carboxyhemoglobin Sodium Potassium Chloride Carbon Dioxide BUN Creatinine Glucose POC Glucose 128 H 149 H Lactic Acid Calcium Phosphorus Magnesium Ferritin AST ALT Ammonia Lactate Dehydrogenase Troponin T C-Reactive Protein Total Protein Albumin Triglycerides LDL Cholesterol Direct HDL Cholesterol Arterial Blood Glucose Arterial Blood Ionized Calcium Urine WBC (Auto) Urine Creatinine Vancomycin Trough 06/13/21 06/13/21 06/14/21 06:05 11:51 04:29 WBC 4.2 L RBC 3.21 L Hgb 8.7 L Hct 26.7 L MCV 83 L MCH 27 L MCHC RDW 15.3 H Plt Count 87 L Seg Neuts % (Manual) 96 H Lymphocytes % (Manual) 2 L Monocytes % (Manual) Nucleated RBC % Seg Neutrophils # Man Lymphocytes # (Manual) 0.0 L PT INR APTT D-Dimer ABG pH POC ABG pCO2 POC ABG pO2 48.3 L ABG pO2 ABG HCO3 ABG Base Excess ABG Hemoglobin 10.7 L ABG Oxyhemoglobin 84.1 L ABG Sodium 145.5 H ABG Potassium ABG Chloride 116.0 H ABG Glucose VBG pH Carboxyhemoglobin Sodium 146 H Potassium 3.5 L Chloride 112.3 H Carbon Dioxide BUN 38 H Creatinine Glucose 112 H POC Glucose Lactic Acid Calcium 8.1 L Phosphorus Magnesium Ferritin AST ALT Ammonia Lactate Dehydrogenase Troponin T C-Reactive Protein Total Protein Albumin Triglycerides LDL Cholesterol Direct HDL Cholesterol Arterial Blood Glucose Arterial Blood Ionized Calcium Urine WBC (Auto) Urine Creatinine Vancomycin Trough 06/14/21 06/14/21 06/14/21 04:29 06:17 23:51 WBC RBC Hgb Hct MCV MCH MCHC RDW Plt Count Seg Neuts % (Manual) Lymphocytes % (Manual) Monocytes % (Manual) Nucleated RBC % Seg Neutrophils # Man Lymphocytes # (Manual) PT INR APTT D-Dimer ABG pH POC ABG pCO2 POC ABG pO2 ABG pO2 ABG HCO3 ABG Base Excess ABG Hemoglobin ABG Oxyhemoglobin ABG Sodium ABG Potassium ABG Chloride ABG Glucose VBG pH Carboxyhemoglobin Sodium 148 H Potassium Chloride 115.3 H Carbon Dioxide BUN 40 H Creatinine Glucose 124 H POC Glucose 106 H 135 H Lactic Acid Calcium 8.2 L Phosphorus Magnesium Ferritin AST ALT Ammonia Lactate Dehydrogenase Troponin T C-Reactive Protein Total Protein Albumin Triglycerides LDL Cholesterol Direct HDL Cholesterol Arterial Blood Glucose Arterial Blood Ionized Calcium Urine WBC (Auto) Urine Creatinine Vancomycin Trough 06/15/21 06/15/21 06/15/21 05:23 05:53 05:53 WBC 3.8 L RBC 2.94 L Hgb 8.0 L Hct 24.0 L MCV 81 L MCH 27 L MCHC RDW 15.6 H Plt Count 87 L Seg Neuts % (Manual) 95.0 H Lymphocytes % (Manual) 1.0 L Monocytes % (Manual) Nucleated RBC % 1.0 H Seg Neutrophils # Man Lymphocytes # (Manual) 0.0 L PT INR APTT D-Dimer ABG pH POC ABG pCO2 POC ABG pO2 ABG pO2 ABG HCO3 ABG Base Excess ABG Hemoglobin ABG Oxyhemoglobin ABG Sodium ABG Potassium ABG Chloride ABG Glucose VBG pH Carboxyhemoglobin Sodium Potassium Chloride 110.5 H Carbon Dioxide BUN 43 H Creatinine Glucose 143 H POC Glucose 134 H Lactic Acid Calcium 8.1 L Phosphorus 2.10 L D Magnesium Ferritin AST ALT Ammonia Lactate Dehydrogenase Troponin T C-Reactive Protein Total Protein Albumin Triglycerides LDL Cholesterol Direct HDL Cholesterol Arterial Blood Glucose Arterial Blood Ionized Calcium Urine WBC (Auto) Urine Creatinine Vancomycin Trough 06/16/21 06/16/21 06/16/21 05:22 05:59 05:59 WBC 3.4 L RBC 3.34 L Hgb 9.0 L Hct 27.9 L MCV MCH 27 L MCHC RDW 15.5 H Plt Count 72 L Seg Neuts % (Manual) 97.0 H Lymphocytes % (Manual) Monocytes % (Manual) Nucleated RBC % Seg Neutrophils # Man Lymphocytes # (Manual) 0.0 L PT INR APTT D-Dimer ABG pH POC ABG pCO2 POC ABG pO2 ABG pO2 ABG HCO3 ABG Base Excess ABG Hemoglobin ABG Oxyhemoglobin ABG Sodium ABG Potassium ABG Chloride ABG Glucose VBG pH Carboxyhemoglobin Sodium Potassium Chloride 108.8 H Carbon Dioxide BUN 53 H Creatinine 1.4 H Glucose 160 H POC Glucose 141 H Lactic Acid Calcium 8.1 L Phosphorus Magnesium Ferritin AST ALT Ammonia Lactate Dehydrogenase Troponin T C-Reactive Protein Total Protein Albumin Triglycerides LDL Cholesterol Direct HDL Cholesterol Arterial Blood Glucose Arterial Blood Ionized Calcium Urine WBC (Auto) Urine Creatinine Vancomycin Trough 06/16/21 06/16/21 06/17/21 11:31 17:08 06:25 WBC 4.4 L RBC 3.14 L Hgb 8.5 L Hct 25.7 L MCV 82 L MCH 27 L MCHC RDW 15.7 H Plt Count 64 L Seg Neuts % (Manual) 95.0 H Lymphocytes % (Manual) Monocytes % (Manual) Nucleated RBC % Seg Neutrophils # Man Lymphocytes # (Manual) 0.0 L PT INR APTT D-Dimer ABG pH POC ABG pCO2 POC ABG pO2 ABG pO2 ABG HCO3 ABG Base Excess ABG Hemoglobin ABG Oxyhemoglobin ABG Sodium ABG Potassium ABG Chloride ABG Glucose VBG pH Carboxyhemoglobin Sodium Potassium Chloride Carbon Dioxide BUN Creatinine Glucose POC Glucose 129 H 136 H Lactic Acid Calcium Phosphorus Magnesium Ferritin AST ALT Ammonia Lactate Dehydrogenase Troponin T C-Reactive Protein Total Protein Albumin Triglycerides LDL Cholesterol Direct HDL Cholesterol Arterial Blood Glucose Arterial Blood Ionized Calcium Urine WBC (Auto) Urine Creatinine Vancomycin Trough 06/17/21 06/17/21 06/17/21 06:25 18:19 18:38 WBC RBC Hgb Hct MCV MCH MCHC RDW Plt Count Seg Neuts % (Manual) Lymphocytes % (Manual) Monocytes % (Manual) Nucleated RBC % Seg Neutrophils # Man Lymphocytes # (Manual) PT INR APTT D-Dimer ABG pH 7.184 L POC ABG pCO2 65.8 H POC ABG pO2 130.5 H ABG pO2 ABG HCO3 ABG Base Excess ABG Hemoglobin 10.2 L ABG Oxyhemoglobin ABG Sodium ABG Potassium ABG Chloride 108.0 H ABG Glucose 229 H VBG pH Carboxyhemoglobin Sodium Potassium Chloride Carbon Dioxide BUN 62 H Creatinine Glucose 135 H POC Glucose 206 H Lactic Acid Calcium 7.8 L Phosphorus Magnesium Ferritin AST ALT Ammonia Lactate Dehydrogenase Troponin T C-Reactive Protein Total Protein Albumin Triglycerides LDL Cholesterol Direct HDL Cholesterol Arterial Blood Glucose 229 H Arterial Blood Ionized Calcium Urine WBC (Auto) Urine Creatinine Vancomycin Trough 06/18/21 06/18/21 06/18/21 00:29 05:15 10:56 WBC RBC Hgb Hct MCV MCH MCHC RDW Plt Count Seg Neuts % (Manual) Lymphocytes % (Manual) Monocytes % (Manual) Nucleated RBC % Seg Neutrophils # Man Lymphocytes # (Manual) PT INR APTT D-Dimer ABG pH POC ABG pCO2 POC ABG pO2 ABG pO2 ABG HCO3 ABG Base Excess ABG Hemoglobin ABG Oxyhemoglobin ABG Sodium ABG Potassium ABG Chloride ABG Glucose VBG pH Carboxyhemoglobin Sodium Potassium Chloride Carbon Dioxide BUN Creatinine Glucose POC Glucose 142 H 152 H Lactic Acid Calcium Phosphorus 5.60 H D Magnesium Ferritin AST ALT Ammonia Lactate Dehydrogenase Troponin T C-Reactive Protein Total Protein Albumin Triglycerides LDL Cholesterol Direct HDL Cholesterol Arterial Blood Glucose Arterial Blood Ionized Calcium Urine WBC (Auto) Urine Creatinine Vancomycin Trough 06/18/21 06/18/21 06/18/21 15:02 15:02 15:02 WBC 4.4 L RBC 3.39 L Hgb 9.7 L Hct 28.4 L MCV MCH MCHC RDW 16.3 H Plt Count 65 L Seg Neuts % (Manual) Lymphocytes % (Manual) Monocytes % (Manual) Nucleated RBC % Seg Neutrophils # Man Lymphocytes # (Manual) PT 15.6 H INR APTT 41.2 H D-Dimer ABG pH POC ABG pCO2 POC ABG pO2 ABG pO2 ABG HCO3 ABG Base Excess ABG Hemoglobin ABG Oxyhemoglobin ABG Sodium ABG Potassium ABG Chloride ABG Glucose VBG pH Carboxyhemoglobin Sodium Potassium Chloride Carbon Dioxide BUN Creatinine 2.0 H Glucose POC Glucose Lactic Acid Calcium Phosphorus Magnesium Ferritin AST ALT Ammonia Lactate Dehydrogenase Troponin T C-Reactive Protein Total Protein Albumin Triglycerides LDL Cholesterol Direct HDL Cholesterol Arterial Blood Glucose Arterial Blood Ionized Calcium Urine WBC (Auto) Urine Creatinine Vancomycin Trough 06/18/21 06/18/21 06/18/21 Unknown Unknown Unknown WBC 4.0 L RBC 2.72 L Hgb 8.0 L Hct 24.0 L MCV MCH MCHC RDW 17.2 H Plt Count 60 L Seg Neuts % (Manual) Lymphocytes % (Manual) Monocytes % (Manual) Nucleated RBC % Seg Neutrophils # Man Lymphocytes # (Manual) PT INR APTT D-Dimer ABG pH POC ABG pCO2 POC ABG pO2 ABG pO2 ABG HCO3 ABG Base Excess ABG Hemoglobin ABG Oxyhemoglobin ABG Sodium ABG Potassium ABG Chloride ABG Glucose VBG pH Carboxyhemoglobin Sodium 134 L D Potassium 6.0 H D Chloride Carbon Dioxide BUN 80 H Creatinine 1.8 H Glucose 395 H POC Glucose Lactic Acid Calcium 6.9 L Phosphorus Magnesium Ferritin AST < 5 L ALT < 5 L Ammonia Lactate Dehydrogenase Troponin T C-Reactive Protein Total Protein 4.9 L Albumin 1.4 L Triglycerides LDL Cholesterol Direct HDL Cholesterol Arterial Blood Glucose Arterial Blood Ionized Calcium Urine WBC (Auto) 10.0 H Urine Creatinine Vancomycin Trough 06/19/21 06/19/21 06/19/21 02:41 04:53 05:37 WBC RBC Hgb Hct MCV MCH MCHC RDW Plt Count Seg Neuts % (Manual) Lymphocytes % (Manual) Monocytes % (Manual) Nucleated RBC % Seg Neutrophils # Man Lymphocytes # (Manual) PT INR APTT D-Dimer ABG pH 7.270 L POC ABG pCO2 49.0 H POC ABG pO2 ABG pO2 ABG HCO3 ABG Base Excess ABG Hemoglobin 8.8 L ABG Oxyhemoglobin ABG Sodium ABG Potassium ABG Chloride 111.0 H ABG Glucose 110 H VBG pH Carboxyhemoglobin Sodium Potassium Chloride Carbon Dioxide BUN 92 H Creatinine 3.2 H D Glucose 123 H POC Glucose 114 H Lactic Acid Calcium 7.4 L Phosphorus Magnesium Ferritin AST ALT Ammonia Lactate Dehydrogenase Troponin T C-Reactive Protein Total Protein Albumin Triglycerides LDL Cholesterol Direct HDL Cholesterol Arterial Blood Glucose 110 H Arterial Blood Ionized Calcium Urine WBC (Auto) Urine Creatinine Vancomycin Trough 06/19/21 06/19/21 06/19/21 08:55 09:37 09:41 WBC RBC 2.91 L Hgb 7.9 L Hct 24.4 L MCV MCH 27 L MCHC RDW 16.5 H Plt Count 64 L Seg Neuts % (Manual) Lymphocytes % (Manual) Monocytes % (Manual) Nucleated RBC % Seg Neutrophils # Man Lymphocytes # (Manual) PT 19.2 H INR 1.46 H APTT 54.3 H D-Dimer ABG pH POC ABG pCO2 POC ABG pO2 ABG pO2 ABG HCO3 ABG Base Excess ABG Hemoglobin ABG Oxyhemoglobin ABG Sodium ABG Potassium ABG Chloride ABG Glucose VBG pH Carboxyhemoglobin Sodium 146 H Potassium Chloride Carbon Dioxide BUN Creatinine 3.5 H Glucose POC Glucose Lactic Acid Calcium Phosphorus Magnesium Ferritin AST ALT Ammonia Lactate Dehydrogenase Troponin T C-Reactive Protein Total Protein Albumin Triglycerides LDL Cholesterol Direct HDL Cholesterol Arterial Blood Glucose Arterial Blood Ionized Calcium Urine WBC (Auto) Urine Creatinine Vancomycin Trough 06/19/21 06/19/21 06/19/21 11:14 12:19 16:15 WBC RBC Hgb Hct MCV MCH MCHC RDW Plt Count Seg Neuts % (Manual) Lymphocytes % (Manual) Monocytes % (Manual) Nucleated RBC % Seg Neutrophils # Man Lymphocytes # (Manual) PT INR APTT D-Dimer ABG pH POC ABG pCO2 POC ABG pO2 ABG pO2 ABG HCO3 ABG Base Excess ABG Hemoglobin ABG Oxyhemoglobin ABG Sodium ABG Potassium ABG Chloride ABG Glucose VBG pH Carboxyhemoglobin Sodium Potassium Chloride Carbon Dioxide BUN Creatinine Glucose POC Glucose Lactic Acid Calcium Phosphorus Magnesium Ferritin AST ALT Ammonia Lactate Dehydrogenase Troponin T 0.109 H* C-Reactive Protein 11.50 H Total Protein Albumin Triglycerides 295 H LDL Cholesterol Direct 24 L HDL Cholesterol 17 L Arterial Blood Glucose Arterial Blood Ionized Calcium Urine WBC (Auto) Urine Creatinine 49.9 H Vancomycin Trough Allied health notes reviewed: nursing
--- NOTE | 2021-06-19 17:47 | Event Note ---
Date: 06/19/21 Full consult dictated - pt w/ multiple medical issues - called for noted dark stools after Lactulose - h/h stable - awaiting FOBT - no plans to scope - will follow for now
[2021-06-20] MEDS: fentaNYL DRIP Premix 2,000 MCG/100 ML BAG IV SCH ×4 (02:12→23:09)
[2021-06-20] MEDS: IPRATROPIUM/ALBUTEROL SULFATE 3 ML AMPUL.NEB IH SCH ×3 (02:42→23:24)
[2021-06-20] MEDS: metroNIDAZOLE/NS 500 MG/100 ML 500 MG/100 ML BAG IV SCH ×3 (04:39→23:14)
[2021-06-20 05:59] LABS: Hematocrit 22.5 % (35.5-45.6); Hemoglobin 7.3 gm/dl (11.8-15.2); Mean Corpuscular HGB Conc 33 % (32-34); Mean Corpuscular Volume 85 fl (84-94); Red Blood Count 2.66 M/mm3 (3.65-5.03); Red Cell Distribution Width 16.9 % (13.2-15.2)
[2021-06-20 06:00] LABS: Platelet Count 60 K/mm3 (140-440)
[2021-06-20] MEDS: CEFEPIME/NS 2 GM/100 ML 2 GM/100 ML BAG IV SCH (06:06)
[2021-06-20 06:18] LABS: Calcium 7.1 mg/dL (8.4-10.2)
--- NOTE | 2021-06-20 08:36 | Progress Note ---
Assessment and Plan Assessment and plan: #PEA arrest -ROSC achieved after 7 minutes -shocked after Vtach #Acute hypoxic respiratory failure #Moderate ARDS #Respiratory acidosis -Intubated on 06/27 -Vent settings: A/C tidal volume 400, rate 30, PEEP 10, FiO2 45% -continue Solu-Medrol -Pulmonary consulted, recs appreciated #Severe sepsis with shock -pressors started overnight (Norepinephrine @ 3mcg); maintain MAP >65 -Febrile, PRN Tylenol -tachycardia -Repeat blood cultures ordered 06/17: NGTD x24hrs -urine culture pending -Likely source PNA/abscess #Metabolic acidosis -femoral vasc cath to be placed -plan for dialysis per Nephrology #ANGELES -SCr steadily increased over the last few days, now 3.2 -FENa 2.7% indicative of intrinsic cause; likely due to ATN -appreciate Nephrology assistance #Elevated troponin -troponin 0.105 -EKG with T wave depressions; Cardiology consulted, recs appreciated #COVID-19 pneumonia #Aspiration pneumonia #Left lower lobe abscess -Seen on CT abdomen pelvis and chest: Approximately 5 x 6 cm -continue cefepime and Flagyl per ID recommendations -vancomycin discontinued -Will require antibiotic treatment for 3 weeks total #Hyperkalemia -resolved, K 4.8 -continue to monitor #Nutrition -TF at 40cc/hr currently -Nutrition following, assistance appreciated #Goals of care -Discussed with family recent updates, made aware of poor prognosis due to PEA arrest and concurrent respiratory and renal failure. They want FULL CODE for now. Will continue to discuss. Resolved problems: #Hypernatremia #Acute encephalopathy #Ileus #Lactic acidosis Disposition Plan: continue medical management Total Time Spent with Patient (Minutes): 60 minutes History Interval history: PEA arrest this morning. Patient resuscitated. Now with pneumothorax. Hospitalist Physical - Physical exam Narrative exam: GENERAL: Thin male. Intubated and mechanically ventilated. HEENT: ETT and CURT in place CHEST/LUNGS: Coarse breath sounds bilaterally. HEART/CARDIOVASCULAR: Tachycardic. No murmur, rubs or gallops appreciated. ABDOMEN: +BS. ND. :+Heart cath EXTREMITIES: No cyanosis, clubbing or edema appreciated. - Constitutional Vitals: Temp Pulse Resp BP Pulse Ox 97.8 F 111 H 23 123/62 97 06/20/21 07:28 06/20/21 07:41 06/20/21 06:00 06/20/21 07:41 06/20/21 07:41 General appearance: Present: other (intubated) HEART Score - HEART Score EKG: Non-specific Age: 45-65 Risk factors: 1-2 risk factors Troponin: Troponin T 0.109 ng/mL (0.00-0.029) H* 06/19/21 12:19 - Critical Actions Critical Actions: 0-3 pts:0.9-1.7%risk of adverse cardiac event.Candidate for discharge Results - Labs CBC & Chem 7: 06/21/21 07:45 06/21/21 07:45 Labs: Laboratory Last Values WBC 4.1 K/mm3 (4.5-11.0) L 06/20/21 05:00 RBC 2.66 M/mm3 (3.65-5.03) L 06/20/21 05:00 Hgb 7.3 gm/dl (11.8-15.2) L 06/20/21 05:00 Hct 22.5 % (35.5-45.6) L 06/20/21 05:00 MCV 85 fl (84-94) 06/20/21 05:00 MCH 28 pg (28-32) 06/20/21 05:00 MCHC 33 % (32-34) 06/20/21 05:00 RDW 16.9 % (13.2-15.2) H 06/20/21 05:00 Plt Count 60 K/mm3 (140-440) L 06/20/21 05:00 Lymph % (Auto) [place] [employer] Hand 06/01/21 07:10 [place] % (Auto) [employer] [employer] Hand 06/01/21 07:10 Eos % (Auto) [place] [employer] Hand 06/01/21 07:10 Baso % (Auto) [place] [employer] Hand 06/01/21 07:10 Lymph # (Auto) [place] [employer] Hand 06/01/21 07:10 [place] # (Auto) [place] [employer] Hand 06/01/21 07:10 Eos # (Auto) [place] [employer] Hand 06/01/21 07:10 Baso # (Auto) [place] [employer] Hand 06/01/21 07:10 Add Manual Diff Complete 06/17/21 06:25 Total Counted 100 06/17/21 06:25 Seg Neutrophils % [place] [employer] Hand 06/17/21 06:25 Seg Neuts % (Manual) 95.0 % (40.0-70.0) H 06/17/21 06:25 Band Neutrophils % 2.0 % 06/17/21 06:25 Lymphocytes % (Manual) 1.0 % (13.4-35.0) L 06/15/21 05:53 Reactive Lymphs % (Man) 1.0 % 06/01/21 07:10 Monocytes % (Manual) 3.0 % (0.0-7.3) 06/17/21 06:25 Myelocytes % 1.0 % 06/13/21 06:05 Nucleated RBC % Not Reportable 06/17/21 06:25 Seg Neutrophils # [place] [employer] Hand 06/01/21 07:10 Seg Neutrophils # Man 4.2 K/mm3 (1.8-7.7) 06/17/21 06:25 Band Neutrophils # 0.1 K/mm3 06/17/21 06:25 Lymphocytes # (Manual) 0.0 K/mm3 (1.2-5.4) L 06/17/21 06:25 Abs React Lymphs (Man) 0.0 K/mm3 06/17/21 06:25 Monocytes # (Manual) 0.1 K/mm3 (0.0-0.8) 06/17/21 06:25 Eosinophils # (Manual) 0.0 K/mm3 (0.0-0.4) 06/17/21 06:25 Basophils # (Manual) 0.0 K/mm3 (0.0-0.1) 06/17/21 06:25 Metamyelocytes # 0.0 K/mm3 06/17/21 06:25 Myelocytes # 0.0 K/mm3 06/17/21 06:25 Promyelocytes # 0.0 K/mm3 06/17/21 06:25 Blast Cells # 0.0 K/mm3 06/17/21 06:25 WBC Morphology Not Reportable 06/17/21 06:25 Hypersegmented Neuts Not Reportable 06/17/21 06:25 Hyposegmented Neuts Not Reportable 06/17/21 06:25 Hypogranular Neuts Not Reportable 06/17/21 06:25 Smudge Cells Not Reportable 06/17/21 06:25 Toxic Granulation Not Reportable 06/17/21 06:25 Toxic Vacuolation Not Reportable 06/17/21 06:25 Dohle Bodies Not Reportable 06/17/21 06:25 Pelger-Huet Anomaly Not Reportable 06/17/21 06:25 Kaci Rods Not Reportable 06/17/21 06:25 Platelet Estimate Consistent w auto 06/17/21 06:25 Clumped Platelets Not Reportable 06/17/21 06:25 Plt Clumps, EDTA Not Reportable 06/17/21 06:25 Large Platelets Not Reportable 06/17/21 06:25 Giant Platelets Not Reportable 06/17/21 06:25 Platelet Satelliting Not Reportable 06/17/21 06:25 Plt Morphology Comment Not Reportable 06/17/21 06:25 RBC Morphology Normal 06/17/21 06:25 Dimorphic RBCs Not Reportable 06/17/21 06:25 Polychromasia Not Reportable 06/17/21 06:25 Hypochromasia Not Reportable 06/17/21 06:25 Poikilocytosis Not Reportable 06/17/21 06:25 Anisocytosis Not Reportable 06/17/21 06:25 Microcytosis Not Reportable 06/17/21 06:25 Macrocytosis Not Reportable 06/17/21 06:25 Spherocytes Not Reportable 06/17/21 06:25 Pappenheimer Bodies Not Reportable 06/17/21 06:25 Sickle Cells Not Reportable 06/17/21 06:25 Target Cells Not Reportable 06/17/21 06:25 Tear Drop Cells Not Reportable 06/17/21 06:25 Ovalocytes Not Reportable 06/17/21 06:25 Helmet Cells Not Reportable 06/17/21 06:25 [place] Bodies Not Reportable 06/17/21 06:25 [place] Rings Not Reportable 06/17/21 06:25 [place] Cells Not Reportable 06/17/21 06:25 Bite Cells Not Reportable 06/17/21 06:25 Crenated Cell Not Reportable 06/17/21 06:25 Elliptocytes Not Reportable 06/17/21 06:25 Acanthocytes (Spur) Not Reportable 06/17/21 06:25 Rouleaux Not Reportable 06/17/21 06:25 Hemoglobin C Crystals Not Reportable 06/17/21 06:25 Schistocytes Not Reportable 06/17/21 06:25 Malaria parasites Not Reportable 06/17/21 06:25 Dick Bodies Not Reportable 06/17/21 06:25 Hem Pathologist Commnt No 06/17/21 06:25 PT 19.2 Sec. (12.2-14.9) H 06/19/21 09:37 INR 1.46 (0.87-1.13) H 06/19/21 09:37 APTT 54.3 Sec. (24.2-36.6) H 06/19/21 09:37 D-Dimer 3584.01 ng/mlDDU (0-234) H 05/27/21 08:09 ABG pH 7.270 (7.320-7.450) L 06/19/21 02:41 POC ABG pCO2 49.0 mmHg (32.0-48.0) H 06/19/21 02:41 ABG pCO2 29.0 mm Hg 05/30/21 22:32 POC ABG pO2 100.4 mmHg (83-108) 06/19/21 02:41 ABG pO2 141.8 mm Hg (80.0-90.0) H 05/30/21 22:32 POC ABG HCO3 22.0 06/19/21 02:41 ABG HCO3 19.9 mmol/L (20.0-26.0) L 05/30/21 22:32 ABG O2 Saturation 96.8 (0-100) 06/19/21 02:41 ABG O2 Content 19.9 (0.0-44) 05/30/21 22:32 POC ABG Base Excess -4.8 06/19/21 02:41 ABG Base Excess -2.7 mmol/L (-2.0-3.0) L 05/30/21 22:32 ABG Hemoglobin 8.8 (12.0-17.5) L 06/19/21 02:41 ABG Oxyhemoglobin 95.5 (94-98) 06/19/21 02:41 ABG Carboxyhemoglobin 1.1 % (0.0-5.0) 05/30/21 22:32 ABG Methemoglobin 0.3 (0.0-1.5) 06/19/21 02:41 ABG Sodium 142.2 mmol/L (136.0-145.0) 06/19/21 02:41 ABG Potassium 4.5 mmol/L (3.40-4.50) 06/19/21 02:41 ABG Chloride 111.0 mmol/L (98-107) H 06/19/21 02:41 ABG Glucose 110 mg/dL (65-95) H 06/19/21 02:41 VBG pH 7.254 (7.320-7.420) L 05/24/21 02:09 Oxyhemoglobin 97.1 % (95.0-99.0) 05/30/21 22:32 Carboxyhemoglobin 1.0 (0.5-1.5) 06/19/21 02:41 FiO2 70 % 05/30/21 22:32 FiO2 % 60.0 06/19/21 02:41 Sodium 145 mmol/L (137-145) 06/20/21 05:00 Potassium 4.3 mmol/L (3.6-5.0) 06/20/21 05:00 Chloride 111.6 mmol/L (98-107) H 06/20/21 05:00 Carbon Dioxide 20 mmol/L (22-30) L 06/20/21 05:00 Anion Gap 18 mmol/L 06/20/21 05:00 BUN 108 mg/dL (9-20) H 06/20/21 05:00 Creatinine 4.3 mg/dL (0.8-1.3) H 06/20/21 05:00 Estimated GFR 17 ml/min 06/20/21 05:00 BUN/Creatinine Ratio 25 % 06/20/21 05:00 Glucose 152 mg/dL (75-100) H 06/20/21 05:00 POC Glucose 137 mg/dL (70-105) H 06/20/21 05:17 Lactic Acid 1.00 mmol/L (0.7-2.0) 06/19/21 16:20 Calcium 7.1 mg/dL (8.4-10.2) L 06/20/21 05:00 Phosphorus 5.60 mg/dL (2.5-4.5) H D 06/18/21 10:56 Magnesium 2.30 mg/dL (1.7-2.3) 06/18/21 10:56 Ferritin 2742.0 ng/mL (30.0-300.0) H 05/27/21 08:09 Total Bilirubin 0.30 mg/dL (0.1-1.2) 06/18/21 Unknown AST < 5 units/L (5-40) L 06/18/21 Unknown ALT < 5 units/L (7-56) L 06/18/21 Unknown Alkaline Phosphatase 102 units/L (35-129) 06/18/21 Unknown Ammonia 22.0 umol/L (25-60) L 05/23/21 18:48 Lactate Dehydrogenase 642 units/L (91-180) H 05/27/21 08:09 Troponin T 0.109 ng/mL (0.00-0.029) H* 06/19/21 12:19 C-Reactive Protein 11.50 mg/dL (0.00-1.30) H 06/19/21 16:15 Total Protein 4.9 g/dL (6.3-8.2) L 06/18/21 Unknown Albumin 1.4 g/dL (3.9-5) L 06/18/21 Unknown Albumin/Globulin Ratio 0.4 % 06/18/21 Unknown Triglycerides 295 mg/dL (2-149) H 06/19/21 12:19 Cholesterol 85 mg/dL (50-199) 06/19/21 12:19 LDL Cholesterol Direct 24 mg/dL (50-130) L 06/19/21 12:19 HDL Cholesterol 17 mg/dL (40-59) L 06/19/21 12:19 Cholesterol/HDL Ratio 5.00 % 06/19/21 12:19 Procalcitonin 19.60 ng/mL (<0.15) 06/18/21 Unknown TSH 1.150 mlU/mL (0.270-4.200) 05/23/21 18:48 Arterial Blood Glucose 110 mg/dL (65-95) H 06/19/21 02:41 Arterial Blood Ionized Calcium 4.5 mg/dL (4.6-5.3) L 05/29/21 17:58 Urine Color Yellow (Yellow) 06/18/21 Unknown Urine Turbidity Cloudy (Clear) 06/18/21 Unknown Urine pH 5.0 (5.0-7.0) 06/18/21 Unknown Ur Specific [place] 1.012 (1.003-1.030) 06/18/21 Unknown Urine Protein 30 mg/dl mg/dL (Negative) 06/18/21 Unknown Urine Glucose (UA) Neg mg/dL (Negative) 06/18/21 Unknown Urine Ketones Neg mg/dL (Negative) 06/18/21 Unknown Urine Blood Mod (Negative) 06/18/21 Unknown Urine Nitrite Neg (Negative) 06/18/21 Unknown Urine Bilirubin Neg (Negative) 06/18/21 Unknown Urine Urobilinogen < 2.0 mg/dL (<2.0) 06/18/21 Unknown Ur Leukocyte Esterase Neg (Negative) 06/18/21 Unknown Urine WBC (Auto) 10.0 /HPF (0.0-6.0) H 06/18/21 Unknown Urine RBC (Auto) 76.0 /HPF (0.0-6.0) 06/18/21 Unknown U Epithel Cells (Auto) 2.0 /HPF (0-13.0) 05/30/21 01:00 Urine Bacteria (Auto) 4+ /HPF (Negative) 06/18/21 Unknown Uric Acid Crystals Few 05/30/21 01:00 Urine Mucus Few /HPF 06/18/21 Unknown Ur Yeast w Hyphae 2+ /HPF 06/18/21 Unknown Urine Yeast (Budding) 3+ /HPF 06/18/21 Unknown Urine Eosinophils None seen (None Seen) 06/18/21 11:24 Urine Creatinine 49.9 mg/dL (0.1-20.0) H 06/19/21 11:14 Urine Sodium 56 mmol/L 06/19/21 11:14 Fraction Sodium Excret 2.3 06/19/21 11:14 Nasal Screen MRSA (PCR) Negative (Negative) 06/15/21 Unknown Vancomycin Trough 18.1 ug/mL (5.0-20.0) 06/16/21 22:30 Plasma/Serum Alcohol < 0.01 % (0-0.07) 05/23/21 18:48 Proteinase 3 (PR3) Ab <1.0 AI (<1.0) 05/24/21 20:57 Myeloperoxidase Ab <1.0 AI (<1.0) 05/24/21 20:57 Complement C3 108 mg/dL (82-185) 05/24/21 20:57 Complement C4 29 mg/dL (15-53) 05/24/21 20:57 Coronavirus (PCR) Negative (Negative) 05/26/21 08:41 Blood Type A POSITIVE 05/29/21 08:15 Antibody Screen Negative 05/29/21 08:15 Microbiology: Microbiology 06/17/21 13:15 Peripheral/Venous Blood Culture - Preliminary NO GROWTH AFTER 48 HOURS 06/17/21 13:48 Peripheral/Venous Blood Culture - Preliminary NO GROWTH AFTER 48 HOURS 06/17/21 18:29 Tracheal Aspirate Sputum Culture - Preliminary 06/18/21 Unknown Urine,Clean Catch Urine Culture - Preliminary 06/19/21 08:20 Stool Stool Occult Blood (SELVIN) - Final Heart/IV: Voiding Method Condom Catheter Active Medications - Current Medications Current Medications: Generic Name Dose Route Start Last Admin Trade Name Freq PRN Reason Stop Dose Admin Acetaminophen 650 mg 06/19/21 12:00 06/19/21 12:15 Acetaminophen 325 Mg/10.15 Ml Oral Liqd Unit Dose FEEDTUBE 650 mg Q6H PRN Administration Pain MILD(1-3)/Fever >100.5/LUCAS Albuterol/Ipratropium 1 ampul 06/07/21 20:00 06/20/21 02:42 Ipratropium/Albuterol Sulfate 3 Ml Ampul.Neb IH Not Given TIDRT [facility] Lipase/Protease/Amylase 1 each 06/18/21 12:21 Lipase 10,500/Protease 25,000/Amylase 43,750 (Units) Dr Rodney FEEDTUBE PRN PRN For Clogged Feeding Tube Apixaban 2.5 mg 06/18/21 22:00 06/19/21 21:40 Apixaban 2.5 Mg Tab PO 2.5 mg Q12HR MIKE Administration Protocol Famotidine 10 mg 06/19/21 10:00 06/19/21 21:40 Famotidine 20 Mg/2 Ml Inj IV 10 mg BID MIKE Administration Fentanyl 50 mcg 06/17/21 17:00 Fentanyl 100 Mcg/2 Ml Inj IV Q10MIN PRN ANALGESIA Hydrophilic Ointment 1 applic 06/17/21 17:00 Lip Therapy Vaseline TP Q2HR PRN Dry Lips Metronidazole 500 mg in 100 mls @ 100 mls/hr 06/08/21 13:00 06/20/21 08:05 Flagyl 500 Mg/100 Ml IV 06/29/21 05:59 Infused Q8H MIKE Infusion Protocol Fentanyl Citrate 2,000 mcg in 100 mls @ 3.725 mls/hr 06/17/21 17:00 06/20/21 02:12 Fentanyl Drip Premix IV Infused TITR MIKE Titration Protocol 1 MCG/KG/HR NORepinephrine/NS 8 MG-250 ML 8 mg in 250 mls @ 3.75 mls/hr 06/18/21 23:00 06/19/21 16:37 Norepinephrine/Ns 8 Mg-250 Ml (Double Conc) IV 0 mcg/min TITRATE MIKE 0 mls/hr Titration Protocol 2 MCG/MIN Cefepime HCl 2 gm in 100 mls @ 200 mls/hr 06/20/21 06:00 06/20/21 08:05 Cefepime/Ns 2 Gm/100 Ml IV 06/29/21 06:29 Infused Q24H MIKE Infusion Protocol Sodium Chloride 1,000 mls @ 125 mls/hr 06/19/21 09:45 06/19/21 14:19 Nacl 0.9% 1000 Ml IV 125 mls/hr DIRECT MIKE Administration Sodium Chloride 1,000 mls @ 50 mls/hr 06/20/21 08:00 Nacl 0.9% 1000 Ml IV DIRECT MIKE Methylprednisolone Sodium Succinate 10 mg 06/16/21 10:00 06/19/21 21:39 Methylprednisolone Sod Succinate 40 Mg/1 Ml Inj IV 10 mg Q12HR MIKE Administration Morphine Sulfate 2 mg 05/23/21 22:01 06/17/21 10:01 Morphine 2 Mg/1 Ml Inj IV 2 mg Q4H PRN Administration Pain, Moderate (4-6) Multi-Ingred Cream/Lotion/Oil/Oint 1 applic 06/17/21 18:00 Mineral Oil/Petrolatum, White Ophth Oint 3.5 Gm OU Q4HR PRN Dry Eye(s) Ondansetron HCl 4 mg 06/04/21 13:41 06/09/21 22:05 Ondansetron 4 Mg/2 Ml Inj IV 4 mg Q4H PRN Administration Nausea And Vomiting Senna/Docusate Sodium 1 tab 06/17/21 22:00 06/19/21 21:40 Sennosides/Docusate Sodium 8.6/50 Mg Tab FEEDTUBE 1 tab BID MIKE Administration Simple Syrup 15 ml 06/18/21 12:21 Simple Syrup 15 Ml FEEDTUBE PRN PRN Hypoglycemia Simple Syrup 30 ml 06/18/21 12:21 Simple Syrup 15 Ml FEEDTUBE PRN PRN Hypoglycemia Sodium Bicarbonate 325 mg 06/18/21 12:21 Sodium Bicarbonate 325 Mg Tab FEEDTUBE PRN PRN For Clogged Feeding Tube Sodium Chloride 10 ml 05/23/21 22:01 06/15/21 22:15 Sodium Chloride 0.9% 10 Ml Flush Syringe IV 10 ml PRN PRN Administration LINE FLUSH Nutrition/Malnutrition Assess - Dietary Evaluation Nutrition/Malnutrition Findings: Nutrition Notes Start: 05/25/21 09:33 Freq: Status: Active Protocol: Document 06/18/21 10:19 MONTEZ (Rec: 06/18/21 12:30 MONTEZ [email or web address]) Nutrition Notes Need for Assessment generated from: MD Order Initial or Follow up Reassessment Current Diagnosis Respiratory Failure Other Pertinent Diagnosis Accute Kidney Injury, Pneumonia, PUI Covid-19. Current Diet TPN; via PICC, discontinued. Tube Feeding Nepro (since L ). Labs/Tests 06/18: Na 134, K 6.0, BUN 80, Glu 395, Phos 3.5 (06/17), Ca 6.9, Platelets 60. Pertinent Medications 06/17: Nutritionally unremarkable. Height 5 ft 11 in Weight 74.5 kg [place] Body Weight (kg) 78.18 BMI 22.8 Weight Status Appropriate Subjective/Other Information TPN discontinued, Pt intubated , ready to resume Tube Feeding . Percent of energy/protein needs met: 96.6% (EER= 1,863 Kcal/day)/ 100% (ProER= 312-376 Kcal/day) . Burn Absent Trauma Absent GI Symptoms Constipation Food Allergy No Skin Integrity/Comment Integumentary; clear, warm dry . Current % PO Other Minimum of two criteria No physical signs of malnutrition #2 Nutrition Diagnosis No nutrition diagnosis at this time Comments: Not report on Integumentary concerns, as per progress notes 06/15 to 06/18. Diagnosis Progress(for reassessment Improved documentation) #1 Nutrition Diagnosis Inadequate oral intake Comments: Nutritional supplement beverage ordered 06/03: TF ordered 06/09: diet advanced to mechanical soft, thin liquids. Tolerating well 06/14 d/t continuous Bipap requiring TPN 06/17 TPN continues 06/18 TPN continues 06/18 Tube Feeding resumes Etiology acute illness As Evidenced by Signs and Symptoms PO intake 0% Diagnosis Progress(for reassessment Worsened documentation) Is patient on ventilator? Yes Is Patient Ambulatory and/or Out of Bed No REE-([facility]-confined to bed) 1926.936 Kcal/Kg value to use for calculation 25 Approximate Energy Requirements Using 1863 kcal/Kg Calculation Used for Recommendations Kcal/kg Additional Notes protein needs: 1.0-1.2 g/Kg/ day; 78-94 gr/day; 312-376 Kcal/day (from IBW). fluid needs: 1.0 ml/kcal, or as per MD. Nutrition Intervention Change Diet Order: Discontinue TPN. Start Tube Feeding. Nutrition Support: Nepro 1,000 ml @ 41 ml/hr. Flush: 190 ml Q 4hr. Or as per MD. Kcal 1,800 Protein (gm) 81 Carbohydrates (gm) 161 Fat (gm) 96 Fluid (mL) 727 Fiber (gm) 13 % RDI: 96.6% Kcal, 100% protein Goal #1 Maintain body weight within +/ -3% of current BWt during LOS. Goal #2 Reach and maintain acceptable chemistry lab values during LOS. Follow-Up By: 06/20/21 Additional Comments Continue monitoring for tolerance of tube feeding, Hydration, and BM.
[2021-06-20] MEDS: FAMOTIDINE 20 MG/2 ML INJ IV SCH ×2 (09:27→23:12)
[2021-06-20] MEDS: SODIUM CHLORIDE 0.9% 1000 ML 1,000 ML IV SCH (09:27)
[2021-06-20] MEDS: methylPREDNISolone Sod Succinate 40 MG/1 ML INJ IV SCH (09:27)
[2021-06-20] MEDS ORDERED: SODIUM CHLORIDE 0.9% 1000 ML 1,000 ML IV SCH (09:30)
[2021-06-20] MEDS: SENNOSIDES/DOCUSATE SODIUM 8.6/50 MG TAB FEEDTUBE SCH ×2 (10:09→23:12)
[2021-06-20] MEDS ORDERED: ALTEPLASE 2 MG INJ IV SCH (10:45)
--- NOTE | 2021-06-20 11:42 | Event Note ---
Date: 06/20/21 At approximately 11:12 am, the patient went into PEA arrest. He received 3 doses of epi, and was shocked for Vtach rhythm. ROSC was acheived at 11:17. CXR showed a new pneumothorax after chest compression. Critical Care (Dr. Ayoub) was at bedside with plan to insert a temporary chest tube. Surgery was paged for chest tube insertion. Family was contacted shortly after (son Ben Sanabria [phone] & daughter Meghan Sanabria [phone]). Meghan would prefer that Ben makes final decisions regarding the patients goals of care. It was explained that his prognosis is poor, and that it is likely that the patient may arrest again. Mr. Sanabria verbalized understanding and plans to visit this evening. At this time, the family prefers to continue with FULL CODE STATUS.
[2021-06-20] MEDS ORDERED: SODIUM BICARB 8.4% 50 MEQ/50 ML SYRINGE IV ONE (11:52)
[2021-06-20] MEDS ORDERED: SODIUM BICARBONATE 150 MEQ in DEXTROSE 5% IN WATER 1,000 ML IV SCH (12:00)
--- NOTE | 2021-06-20 12:04 | XRay Report ---
CHEST 1 VIEW INDICATION: pneumo/ ET placement. COMPARISON: One day prior. FINDINGS: Support devices: Support devices are in satisfactory position. Heart: Stable. Lungs/Pleura: There is a new moderate to large left pneumothorax. Bilateral pulmonary opacities are s table. There is new pneumomediastinum and extensive soft tissue gas in the neck. IMPRESSION: 1. New since the prior there is moderate to large left pneumothorax, pneumomediastinum, and soft tiss ue gas in the neck. CRITICAL RESULT: Time of Discovery (BRACER/CDT): 10:51 Time of Communication (BRACER/CDT): 1054 Licensed Practitioner Receiving Report: OBDULIA Restrepo Read-Back Performed: Yes. Signer Name: Ovidio Cm MD Signed: 06/20/2021 12:00 PM Workstation Name: [id number]
--- NOTE | 2021-06-20 12:07 | Procedure Note ---
Date of procedure: 06/20/21 Pre-op diagnosis: Left pneumothorax, PEA arrest Post-op diagnosis: same Procedure: Patient cleaned. The second left interspace, midclaviclular line identified. The introducer needle and catheter placed The introducer needle was removed. The catheter was attached to Hiemlich valve and the pleuravac. Post procedure CXR ordered. Anesthesia: none Surgeon: SANDOVAL PEREZ Estimated blood loss: none Pathology: none Condition: critical Disposition: ICU
--- NOTE | 2021-06-20 12:14 | Progress Note ---
Assessment and Plan Cardiopulmonary arrest with ROSC Left pneumothorax Acute hypoxemic respiratory failure on MVS Bilateral pneumonia Interstitial changes with GGO on imaging h/o 2019 novel coronavirus infection Emergent Left pleural drain placed, the left lung on CXR is not fully re- expanded. Discussed with surgery re placement of surgical chest tube - Daily SAT and SBT assessment as tolerated - VAP bundle addressed, aspiration precautions HOB >40 - continue lung protective strategies - continue bronchodilators with pulmonary hygiene per RT - wean per pulmonary driven protocols otherwise - Titrate supplemental oxygen for target SpO2 88-90% - continue accuchecks with glycemic control per SSI (While critically ill target blood glucose of 140-180 mg/dL; avoid hypoglycemia) - avoid nephrotoxins, renally dose all medications - continue to avoid benzodiazepines, reduce the possibility of delirium - prn analgesia per CPOT score - Maintenance of sleep-wake cycle, avoid delirium - Enteric nutritional support titrate to goal rate as tolerated on OGT placement is confirmed - Stress ulcer and VTE prophylaxis - continue mobility protocols for pressure ulcer prophylaxis - Monitor hemodynamics closely - continue other care per attending / other consultants -Family notified of change in condition- they plan to visit and discuss goals of care -Anuric with worsening renal failure, placement of femoral Trialysis caheter for emrgent HD today. Discussed extensively with renal service COVID SPECIFIC INTERVENTIONS - repeat COVID-19 test result negative .... Re-evaluate in am & prn CONDITION: CRITICAL PROGNOSIS: GUARDED CODE STATUS: FULL CODE The high probability of a clinically significant, sudden or life-threatening deterioration of the [respiratory, GI, renal & cardiovascular] system(s) required my full and direct attention, intervention and personal management. The aggregate critical care time was [75] minutes without overlap. Time includes spent on; [x] Data Review and interpretation [x] Patient assessment and monitoring of vital signs [x] Documentation [x] Medication orders and management Subjective Date of service: 06/20/21 Principal diagnosis: Acute hypoxemic resp failure; Pneumonia; PUI COVID-19 infection Interval history: PEA arrest, CPR going on Objective Vital Signs - 12hr 06/20/21 06/20/21 06/20/21 00:15 00:30 00:45 Temperature Pulse Rate 117 H 118 H 118 H Pulse Rate [ From Monitor] Respiratory 18 23 19 Rate Blood Pressure 115/60 115/59 113/58 O2 Sat by Pulse 92 92 92 Oximetry 06/20/21 06/20/21 06/20/21 01:00 01:15 01:30 Temperature Pulse Rate 118 H 118 H 118 H Pulse Rate [ From Monitor] Respiratory 20 19 22 Rate Blood Pressure 118/61 115/61 111/60 O2 Sat by Pulse 92 93 92 Oximetry 06/20/21 06/20/21 06/20/21 01:45 02:00 02:15 Temperature Pulse Rate 117 H 116 H 117 H Pulse Rate [ From Monitor] Respiratory 18 17 20 Rate Blood Pressure 120/59 116/59 120/59 O2 Sat by Pulse 92 93 92 Oximetry 06/20/21 06/20/21 06/20/21 02:30 02:45 03:00 Temperature Pulse Rate 117 H 116 H 116 H Pulse Rate [ From Monitor] Respiratory 17 17 20 Rate Blood Pressure 110/57 110/55 103/58 O2 Sat by Pulse 93 93 93 Oximetry 06/20/21 06/20/21 06/20/21 03:15 03:30 03:36 Temperature Pulse Rate 116 H 115 H 114 H Pulse Rate [ From Monitor] Respiratory 20 17 Rate Blood Pressure 110/55 113/55 113/56 O2 Sat by Pulse 93 93 97 Oximetry 06/20/21 06/20/21 06/20/21 03:37 03:45 04:00 Temperature 99.3 F Pulse Rate 115 H 115 H Pulse Rate [ 115 H From Monitor] Respiratory 17 16 Rate Blood Pressure 111/59 114/59 O2 Sat by Pulse 93 93 Oximetry 06/20/21 06/20/21 06/20/21 04:15 04:30 04:45 Temperature Pulse Rate 115 H 115 H 115 H Pulse Rate [ From Monitor] Respiratory 19 21 21 Rate Blood Pressure 118/59 113/58 119/59 O2 Sat by Pulse 93 93 93 Oximetry 06/20/21 06/20/21 06/20/21 05:00 05:15 05:30 Temperature Pulse Rate 114 H 113 H 114 H Pulse Rate [ From Monitor] Respiratory 20 26 H 30 H Rate Blood Pressure 114/50 114/50 120/51 O2 Sat by Pulse 90 95 93 Oximetry 06/20/21 06/20/21 06/20/21 05:45 06:00 06:15 Temperature Pulse Rate 114 H 113 H 113 H Pulse Rate [ From Monitor] Respiratory 30 H 23 30 H Rate Blood Pressure 120/51 115/54 115/54 O2 Sat by Pulse 95 95 96 Oximetry 06/20/21 06/20/21 06/20/21 06:30 06:45 07:00 Temperature Pulse Rate 113 H 112 H 110 H Pulse Rate [ From Monitor] Respiratory 28 H 25 H 24 Rate Blood Pressure 120/55 120/55 119/58 O2 Sat by Pulse 93 96 94 Oximetry 06/20/21 06/20/21 06/20/21 07:15 07:28 07:30 Temperature 97.8 F Pulse Rate 109 H 111 H Pulse Rate [ From Monitor] Respiratory 18 20 Rate Blood Pressure 122/60 123/62 O2 Sat by Pulse 95 95 Oximetry 06/20/21 06/20/21 06/20/21 07:41 07:45 08:00 Temperature 97.7 F Pulse Rate 111 H 111 H 114 H Pulse Rate [ From Monitor] Respiratory 22 27 H Rate Blood Pressure 123/62 123/62 134/64 O2 Sat by Pulse 97 97 95 Oximetry 06/20/21 06/20/21 06/20/21 08:01 08:15 08:30 Temperature Pulse Rate 118 H 112 H 114 H Pulse Rate [ From Monitor] Respiratory 28 H 31 H Rate Blood Pressure 134/64 129/61 O2 Sat by Pulse 97 95 Oximetry 06/20/21 06/20/21 06/20/21 08:39 08:45 09:00 Temperature Pulse Rate 114 H 113 H Pulse Rate [ 113 H From Monitor] Respiratory 30 H 27 H 25 H Rate Blood Pressure 128/61 129/60 O2 Sat by Pulse 96 97 94 Oximetry 06/20/21 06/20/21 06/20/21 09:15 09:30 09:45 Temperature Pulse Rate 113 H 113 H 113 H Pulse Rate [ From Monitor] Respiratory 28 H 31 H 18 Rate Blood Pressure 127/62 131/65 125/66 O2 Sat by Pulse 96 97 97 Oximetry 06/20/21 10:00 Temperature Pulse Rate 113 H Pulse Rate [ From Monitor] Respiratory 20 Rate Blood Pressure 129/66 O2 Sat by Pulse 96 Oximetry Constitutional: appears uncomfortable, other (middle aged male with mildly increased respiratory effort at rest on BIPAP) Eyes: non-icteric ENT: oropharynx moist, other (BIPAP FFM) Neck: supple, no JVD Effort: mildly labored Ascultation: Bilateral: diminished breath sounds (bases), rhonchi Percussion: Bilateral: not dull Cardiovascular: regular rate and rhythm, other Gastrointestinal: hypoactive bowel sounds, soft, non-tender, other (distended but very soft) Integumentary: normal Extremities: no cyanosis, no edema, pulses normal, no ischemia or petechiae Neurologic: pupils equal and round, CN II-XII normal, other (somnolent) Psychiatric: other (flat affect) CBC and BMP: 06/25/21 Unknown 06/25/21 Unknown ABG, PT/INR, D-dimer: ABG ABG pH 7.270 (7.320-7.450) L 06/19/21 02:41 POC ABG pCO2 49.0 mmHg (32.0-48.0) H 06/19/21 02:41 ABG pCO2 29.0 mm Hg 05/30/21 22:32 POC ABG pO2 100.4 mmHg (83-108) 06/19/21 02:41 ABG pO2 141.8 mm Hg (80.0-90.0) H 05/30/21 22:32 POC ABG HCO3 22.0 06/19/21 02:41 ABG O2 Saturation 96.8 (0-100) 06/19/21 02:41 PT/INR, D-dimer PT 19.2 Sec. (12.2-14.9) H 06/19/21 09:37 INR 1.46 (0.87-1.13) H 06/19/21 09:37 D-Dimer 3584.01 ng/mlDDU (0-234) H 05/27/21 08:09 Abnormal lab findings: Abnormal Labs 05/23/21 05/23/21 05/23/21 18:48 18:48 18:48 WBC 11.8 H RBC 5.18 H Hgb Hct MCV MCH MCHC RDW Plt Count Seg Neuts % (Manual) 84.0 H Lymphocytes % (Manual) Monocytes % (Manual) Nucleated RBC % Seg Neutrophils # Man 9.9 H Lymphocytes # (Manual) PT INR APTT D-Dimer > 41264 H ABG pH POC ABG pCO2 POC ABG pO2 ABG pO2 ABG HCO3 ABG Base Excess ABG Hemoglobin ABG Oxyhemoglobin ABG Sodium ABG Potassium ABG Chloride ABG Glucose VBG pH Carboxyhemoglobin Sodium Potassium Chloride Carbon Dioxide BUN Creatinine Glucose POC Glucose Lactic Acid 2.30 H* Calcium Phosphorus Magnesium Ferritin AST ALT Ammonia Lactate Dehydrogenase Troponin T C-Reactive Protein Total Protein Albumin Triglycerides LDL Cholesterol Direct HDL Cholesterol Arterial Blood Glucose Arterial Blood Ionized Calcium Urine WBC (Auto) Urine Creatinine Vancomycin Trough 05/23/21 05/23/21 05/23/21 18:48 18:48 18:48 WBC RBC Hgb Hct MCV MCH MCHC RDW Plt Count Seg Neuts % (Manual) Lymphocytes % (Manual) Monocytes % (Manual) Nucleated RBC % Seg Neutrophils # Man Lymphocytes # (Manual) PT INR APTT D-Dimer ABG pH POC ABG pCO2 POC ABG pO2 ABG pO2 ABG HCO3 ABG Base Excess ABG Hemoglobin ABG Oxyhemoglobin ABG Sodium ABG Potassium ABG Chloride ABG Glucose VBG pH Carboxyhemoglobin Sodium 151 H Potassium 5.1 H Chloride 113.2 H Carbon Dioxide 17 L BUN 180 H Creatinine 4.3 H Glucose 114 H POC Glucose Lactic Acid Calcium Phosphorus Magnesium Ferritin 2000.0 H AST ALT Ammonia 22.0 L Lactate Dehydrogenase 577 H Troponin T C-Reactive Protein 8.80 H Total Protein 9.4 H Albumin 3.0 L Triglycerides LDL Cholesterol Direct HDL Cholesterol Arterial Blood Glucose Arterial Blood Ionized Calcium Urine WBC (Auto) Urine Creatinine Vancomycin Trough 05/23/21 05/24/21 05/24/21 21:06 02:09 02:09 WBC RBC Hgb Hct MCV MCH MCHC RDW Plt Count Seg Neuts % (Manual) Lymphocytes % (Manual) Monocytes % (Manual) Nucleated RBC % Seg Neutrophils # Man Lymphocytes # (Manual) PT INR APTT D-Dimer ABG pH POC ABG pCO2 POC ABG pO2 ABG pO2 ABG HCO3 ABG Base Excess ABG Hemoglobin ABG Oxyhemoglobin ABG Sodium ABG Potassium ABG Chloride ABG Glucose VBG pH 7.254 L Carboxyhemoglobin Sodium Potassium Chloride Carbon Dioxide BUN Creatinine Glucose POC Glucose Lactic Acid 2.10 H* 2.30 H* Calcium Phosphorus Magnesium Ferritin AST ALT Ammonia Lactate Dehydrogenase Troponin T C-Reactive Protein Total Protein Albumin Triglycerides LDL Cholesterol Direct HDL Cholesterol Arterial Blood Glucose Arterial Blood Ionized Calcium Urine WBC (Auto) Urine Creatinine Vancomycin Trough 05/24/21 05/24/21 05/24/21 13:11 17:34 18:12 WBC RBC Hgb Hct MCV MCH MCHC RDW Plt Count Seg Neuts % (Manual) Lymphocytes % (Manual) Monocytes % (Manual) Nucleated RBC % Seg Neutrophils # Man Lymphocytes # (Manual) PT INR APTT D-Dimer ABG pH POC ABG pCO2 POC ABG pO2 ABG pO2 ABG HCO3 ABG Base Excess ABG Hemoglobin ABG Oxyhemoglobin ABG Sodium ABG Potassium ABG Chloride ABG Glucose VBG pH Carboxyhemoglobin Sodium 155 H Potassium 6.9 H* D 5.7 H Chloride 121.9 H Carbon Dioxide 20 L BUN 139 H Creatinine 2.7 H Glucose 139 H POC Glucose 153 H Lactic Acid Calcium Phosphorus Magnesium Ferritin AST ALT Ammonia Lactate Dehydrogenase Troponin T C-Reactive Protein Total Protein Albumin Triglycerides LDL Cholesterol Direct HDL Cholesterol Arterial Blood Glucose Arterial Blood Ionized Calcium Urine WBC (Auto) Urine Creatinine Vancomycin Trough 05/25/21 05/25/21 05/26/21 11:33 11:33 03:15 WBC 13.8 H RBC 5.06 H Hgb Hct MCV MCH MCHC RDW Plt Count Seg Neuts % (Manual) Lymphocytes % (Manual) Monocytes % (Manual) Nucleated RBC % Seg Neutrophils # Man Lymphocytes # (Manual) PT INR APTT D-Dimer ABG pH POC ABG pCO2 POC ABG pO2 ABG pO2 ABG HCO3 ABG Base Excess ABG Hemoglobin ABG Oxyhemoglobin ABG Sodium ABG Potassium ABG Chloride ABG Glucose VBG pH Carboxyhemoglobin Sodium 164 H* D 166 H* Potassium 5.4 H 5.5 H Chloride 131.3 H 129.2 H Carbon Dioxide BUN 109 H 102 H Creatinine 1.9 H 1.8 H Glucose 117 H 113 H POC Glucose Lactic Acid Calcium Phosphorus Magnesium Ferritin AST ALT Ammonia Lactate Dehydrogenase 711 H Troponin T C-Reactive Protein 7.90 H Total Protein Albumin Triglycerides LDL Cholesterol Direct HDL Cholesterol Arterial Blood Glucose Arterial Blood Ionized Calcium Urine WBC (Auto) Urine Creatinine Vancomycin Trough 05/26/21 05/26/21 05/26/21 03:15 03:15 03:15 WBC 13.1 H RBC 5.43 H Hgb 15.3 H Hct 48.5 H MCV MCH MCHC RDW 15.4 H Plt Count Seg Neuts % (Manual) Lymphocytes % (Manual) Monocytes % (Manual) Nucleated RBC % Seg Neutrophils # Man Lymphocytes # (Manual) PT INR APTT D-Dimer 6229.14 H ABG pH POC ABG pCO2 POC ABG pO2 ABG pO2 ABG HCO3 ABG Base Excess ABG Hemoglobin ABG Oxyhemoglobin ABG Sodium ABG Potassium ABG Chloride ABG Glucose VBG pH Carboxyhemoglobin Sodium Potassium Chloride Carbon Dioxide BUN Creatinine Glucose POC Glucose Lactic Acid Calcium Phosphorus Magnesium Ferritin 2991.0 H AST ALT Ammonia Lactate Dehydrogenase Troponin T C-Reactive Protein Total Protein Albumin Triglycerides LDL Cholesterol Direct HDL Cholesterol Arterial Blood Glucose Arterial Blood Ionized Calcium Urine WBC (Auto) Urine Creatinine Vancomycin Trough 05/27/21 05/27/21 05/27/21 08:09 08:09 08:09 WBC 12.4 H RBC 5.27 H Hgb Hct 46.6 H MCV MCH MCHC 31 L RDW 15.7 H Plt Count Seg Neuts % (Manual) Lymphocytes % (Manual) Monocytes % (Manual) Nucleated RBC % Seg Neutrophils # Man Lymphocytes # (Manual) PT INR APTT D-Dimer 3584.01 H ABG pH POC ABG pCO2 POC ABG pO2 ABG pO2 ABG HCO3 ABG Base Excess ABG Hemoglobin ABG Oxyhemoglobin ABG Sodium ABG Potassium ABG Chloride ABG Glucose VBG pH Carboxyhemoglobin Sodium 174 H* Potassium Chloride 136.9 H Carbon Dioxide BUN 90 H Creatinine 1.8 H Glucose POC Glucose Lactic Acid Calcium Phosphorus Magnesium Ferritin AST ALT Ammonia Lactate Dehydrogenase 642 H Troponin T C-Reactive Protein 5.20 H Total Protein Albumin Triglycerides LDL Cholesterol Direct HDL Cholesterol Arterial Blood Glucose Arterial Blood Ionized Calcium Urine WBC (Auto) Urine Creatinine Vancomycin Trough 05/27/21 05/28/21 05/28/21 08:09 07:31 07:31 WBC RBC Hgb Hct MCV MCH 27 L MCHC 31 L RDW Plt Count Seg Neuts % (Manual) 88.0 H Lymphocytes % (Manual) 11.0 L Monocytes % (Manual) Nucleated RBC % Seg Neutrophils # Man 8.3 H Lymphocytes # (Manual) 1.0 L PT INR APTT D-Dimer ABG pH POC ABG pCO2 POC ABG pO2 ABG pO2 ABG HCO3 ABG Base Excess ABG Hemoglobin ABG Oxyhemoglobin ABG Sodium ABG Potassium ABG Chloride ABG Glucose VBG pH Carboxyhemoglobin Sodium 162 H* D Potassium Chloride 125.8 H Carbon Dioxide BUN 72 H Creatinine 1.6 H Glucose 131 H POC Glucose Lactic Acid Calcium Phosphorus Magnesium 3.00 H Ferritin 2742.0 H AST ALT Ammonia Lactate Dehydrogenase Troponin T C-Reactive Protein Total Protein Albumin Triglycerides LDL Cholesterol Direct HDL Cholesterol Arterial Blood Glucose Arterial Blood Ionized Calcium Urine WBC (Auto) Urine Creatinine Vancomycin Trough 05/29/21 05/29/21 05/29/21 06:40 06:40 17:58 WBC 14.1 H RBC Hgb Hct MCV MCH 27 L MCHC 31 L RDW Plt Count Seg Neuts % (Manual) 85.0 H Lymphocytes % (Manual) 9.0 L Monocytes % (Manual) Nucleated RBC % 1.0 H Seg Neutrophils # Man 12.0 H Lymphocytes # (Manual) PT INR APTT D-Dimer ABG pH 7.505 H POC ABG pCO2 30.3 L POC ABG pO2 128.1 H ABG pO2 ABG HCO3 ABG Base Excess ABG Hemoglobin 11.9 L ABG Oxyhemoglobin ABG Sodium ABG Potassium ABG Chloride 113.0 H ABG Glucose 110 H VBG pH Carboxyhemoglobin Sodium 148 H D Potassium Chloride 111.3 H Carbon Dioxide 20 L BUN 45 H Creatinine Glucose POC Glucose Lactic Acid Calcium Phosphorus 2.10 L D Magnesium Ferritin AST ALT Ammonia Lactate Dehydrogenase Troponin T C-Reactive Protein Total Protein Albumin Triglycerides LDL Cholesterol Direct HDL Cholesterol Arterial Blood Glucose 110 H Arterial Blood Ionized Calcium 4.5 L Urine WBC (Auto) Urine Creatinine Vancomycin Trough 05/30/21 05/30/21 05/30/21 01:00 06:06 13:48 WBC RBC Hgb Hct MCV MCH MCHC RDW Plt Count Seg Neuts % (Manual) Lymphocytes % (Manual) Monocytes % (Manual) Nucleated RBC % Seg Neutrophils # Man Lymphocytes # (Manual) PT INR APTT D-Dimer ABG pH POC ABG pCO2 POC ABG pO2 ABG pO2 90.9 H ABG HCO3 ABG Base Excess ABG Hemoglobin 11.8 L ABG Oxyhemoglobin ABG Sodium ABG Potassium ABG Chloride ABG Glucose VBG pH Carboxyhemoglobin Sodium 150 H Potassium Chloride 117.6 H Carbon Dioxide BUN 40 H Creatinine Glucose POC Glucose Lactic Acid Calcium 8.3 L Phosphorus Magnesium Ferritin AST ALT Ammonia Lactate Dehydrogenase Troponin T C-Reactive Protein Total Protein Albumin Triglycerides LDL Cholesterol Direct HDL Cholesterol Arterial Blood Glucose Arterial Blood Ionized Calcium Urine WBC (Auto) 12.0 H Urine Creatinine Vancomycin Trough 05/30/21 05/31/21 05/31/21 22:32 02:22 02:22 WBC RBC Hgb 11.2 L Hct 34.8 L MCV MCH MCHC RDW Plt Count 127 L Seg Neuts % (Manual) 97.0 H Lymphocytes % (Manual) Monocytes % (Manual) Nucleated RBC % Seg Neutrophils # Stefan 10.5 H Lymphocytes # (Manual) 0.0 L PT INR APTT D-Dimer ABG pH 7.454 H POC ABG pCO2 POC ABG pO2 ABG pO2 141.8 H ABG HCO3 19.9 L ABG Base Excess -2.7 L ABG Hemoglobin ABG Oxyhemoglobin ABG Sodium ABG Potassium ABG Chloride ABG Glucose VBG pH Carboxyhemoglobin Sodium 152 H Potassium Chloride 118.9 H Carbon Dioxide 19 L BUN 48 H Creatinine 1.5 H Glucose 101 H POC Glucose Lactic Acid Calcium 8.3 L Phosphorus Magnesium Ferritin AST ALT Ammonia Lactate Dehydrogenase Troponin T C-Reactive Protein Total Protein Albumin Triglycerides LDL Cholesterol Direct HDL Cholesterol Arterial Blood Glucose Arterial Blood Ionized Calcium Urine WBC (Auto) Urine Creatinine Vancomycin Trough 05/31/21 05/31/21 06/01/21 11:42 21:28 07:10 WBC RBC Hgb Hct MCV MCH MCHC RDW Plt Count Seg Neuts % (Manual) Lymphocytes % (Manual) Monocytes % (Manual) Nucleated RBC % Seg Neutrophils # Man Lymphocytes # (Manual) PT INR APTT D-Dimer ABG pH POC ABG pCO2 POC ABG pO2 ABG pO2 ABG HCO3 ABG Base Excess ABG Hemoglobin ABG Oxyhemoglobin ABG Sodium ABG Potassium ABG Chloride ABG Glucose VBG pH Carboxyhemoglobin Sodium 150 H Potassium Chloride 115.7 H Carbon Dioxide BUN 47 H Creatinine Glucose 115 H POC Glucose 161 H Lactic Acid Calcium Phosphorus Magnesium 2.50 H Ferritin AST ALT Ammonia Lactate Dehydrogenase Troponin T C-Reactive Protein Total Protein Albumin Triglycerides LDL Cholesterol Direct HDL Cholesterol Arterial Blood Glucose Arterial Blood Ionized Calcium Urine WBC (Auto) Urine Creatinine Vancomycin Trough 20.2 H 06/01/21 06/01/21 06/01/21 07:10 07:54 10:39 WBC RBC Hgb 10.7 L Hct 33.5 L MCV MCH MCHC RDW Plt Count Seg Neuts % (Manual) 92.0 H Lymphocytes % (Manual) 4.0 L Monocytes % (Manual) Nucleated RBC % Seg Neutrophils # Man Lymphocytes # (Manual) 0.3 L PT INR APTT D-Dimer ABG pH POC ABG pCO2 POC ABG pO2 ABG pO2 ABG HCO3 ABG Base Excess ABG Hemoglobin ABG Oxyhemoglobin ABG Sodium ABG Potassium ABG Chloride ABG Glucose VBG pH Carboxyhemoglobin Sodium 152 H Potassium Chloride 117.6 H Carbon Dioxide BUN 50 H Creatinine Glucose 140 H POC Glucose 127 H Lactic Acid Calcium 8.3 L Phosphorus Magnesium Ferritin AST ALT Ammonia Lactate Dehydrogenase Troponin T C-Reactive Protein Total Protein Albumin Triglycerides LDL Cholesterol Direct HDL Cholesterol Arterial Blood Glucose Arterial Blood Ionized Calcium Urine WBC (Auto) Urine Creatinine Vancomycin Trough 06/01/21 06/01/21 06/01/21 11:11 16:16 21:45 WBC RBC Hgb Hct MCV MCH MCHC RDW Plt Count Seg Neuts % (Manual) Lymphocytes % (Manual) Monocytes % (Manual) Nucleated RBC % Seg Neutrophils # Man Lymphocytes # (Manual) PT INR APTT D-Dimer ABG pH POC ABG pCO2 POC ABG pO2 ABG pO2 ABG HCO3 ABG Base Excess ABG Hemoglobin ABG Oxyhemoglobin ABG Sodium ABG Potassium ABG Chloride ABG Glucose VBG pH Carboxyhemoglobin Sodium Potassium Chloride Carbon Dioxide BUN Creatinine Glucose POC Glucose 120 H 129 H 150 H Lactic Acid Calcium Phosphorus Magnesium Ferritin AST ALT Ammonia Lactate Dehydrogenase Troponin T C-Reactive Protein Total Protein Albumin Triglycerides LDL Cholesterol Direct HDL Cholesterol Arterial Blood Glucose Arterial Blood Ionized Calcium Urine WBC (Auto) Urine Creatinine Vancomycin Trough 06/02/21 06/02/21 06/02/21 06:53 06:53 07:52 WBC RBC Hgb 10.4 L Hct 32.4 L MCV MCH 27 L MCHC RDW Plt Count Seg Neuts % (Manual) 93.0 H Lymphocytes % (Manual) 3.0 L Monocytes % (Manual) Nucleated RBC % Seg Neutrophils # Man Lymphocytes # (Manual) 0.2 L PT INR APTT D-Dimer ABG pH POC ABG pCO2 POC ABG pO2 ABG pO2 ABG HCO3 ABG Base Excess ABG Hemoglobin ABG Oxyhemoglobin ABG Sodium ABG Potassium ABG Chloride ABG Glucose VBG pH Carboxyhemoglobin Sodium 149 H Potassium Chloride 112.6 H Carbon Dioxide BUN 54 H Creatinine Glucose 123 H POC Glucose 116 H Lactic Acid Calcium 8.2 L Phosphorus Magnesium Ferritin AST ALT Ammonia Lactate Dehydrogenase Troponin T C-Reactive Protein Total Protein Albumin Triglycerides LDL Cholesterol Direct HDL Cholesterol Arterial Blood Glucose Arterial Blood Ionized Calcium Urine WBC (Auto) Urine Creatinine Vancomycin Trough 06/03/21 06/03/21 06/03/21 05:57 05:57 21:23 WBC RBC Hgb 10.7 L Hct 33.0 L MCV 83 L MCH 27 L MCHC RDW Plt Count Seg Neuts % (Manual) 88.0 H Lymphocytes % (Manual) 8.0 L Monocytes % (Manual) Nucleated RBC % 2.0 H Seg Neutrophils # Man Lymphocytes # (Manual) 0.6 L PT INR APTT D-Dimer ABG pH POC ABG pCO2 POC ABG pO2 39.0 L ABG pO2 ABG HCO3 ABG Base Excess ABG Hemoglobin ABG Oxyhemoglobin 69.1 L ABG Sodium 134.1 L ABG Potassium ABG Chloride ABG Glucose 135 H VBG pH Carboxyhemoglobin Sodium Potassium Chloride Carbon Dioxide BUN 36 H Creatinine Glucose 102 H POC Glucose Lactic Acid Calcium 8.0 L Phosphorus 2.20 L D Magnesium Ferritin AST ALT Ammonia Lactate Dehydrogenase Troponin T C-Reactive Protein Total Protein Albumin Triglycerides LDL Cholesterol Direct HDL Cholesterol Arterial Blood Glucose 135 H Arterial Blood Ionized Calcium Urine WBC (Auto) Urine Creatinine Vancomycin Trough 06/04/21 06/04/21 06/04/21 07:04 07:04 17:42 WBC RBC Hgb 11.3 L Hct 34.9 L MCV MCH 27 L MCHC RDW Plt Count Seg Neuts % (Manual) Lymphocytes % (Manual) 5.0 L Monocytes % (Manual) Nucleated RBC % Seg Neutrophils # Man 8.4 H Lymphocytes # (Manual) 0.5 L PT INR APTT D-Dimer ABG pH POC ABG pCO2 POC ABG pO2 ABG pO2 ABG HCO3 ABG Base Excess ABG Hemoglobin ABG Oxyhemoglobin ABG Sodium ABG Potassium ABG Chloride ABG Glucose VBG pH Carboxyhemoglobin Sodium Potassium Chloride Carbon Dioxide BUN 27 H Creatinine Glucose POC Glucose 136 H Lactic Acid Calcium 8.2 L Phosphorus Magnesium Ferritin AST ALT Ammonia Lactate Dehydrogenase Troponin T C-Reactive Protein Total Protein Albumin Triglycerides LDL Cholesterol Direct HDL Cholesterol Arterial Blood Glucose Arterial Blood Ionized Calcium Urine WBC (Auto) Urine Creatinine Vancomycin Trough 06/05/21 06/05/21 06/05/21 05:10 12:32 15:45 WBC RBC Hgb Hct MCV MCH MCHC RDW Plt Count Seg Neuts % (Manual) Lymphocytes % (Manual) Monocytes % (Manual) Nucleated RBC % Seg Neutrophils # Man Lymphocytes # (Manual) PT INR APTT D-Dimer ABG pH POC ABG pCO2 POC ABG pO2 ABG pO2 ABG HCO3 ABG Base Excess ABG Hemoglobin ABG Oxyhemoglobin ABG Sodium ABG Potassium ABG Chloride ABG Glucose VBG pH Carboxyhemoglobin Sodium Potassium 3.5 L Chloride Carbon Dioxide BUN 35 H Creatinine Glucose 130 H POC Glucose 122 H 119 H Lactic Acid Calcium 8.2 L Phosphorus Magnesium Ferritin AST ALT Ammonia Lactate Dehydrogenase Troponin T C-Reactive Protein Total Protein Albumin Triglycerides LDL Cholesterol Direct HDL Cholesterol Arterial Blood Glucose Arterial Blood Ionized Calcium Urine WBC (Auto) Urine Creatinine Vancomycin Trough 06/05/21 06/05/21 06/06/21 20:06 21:27 00:04 WBC RBC Hgb Hct MCV MCH MCHC RDW Plt Count Seg Neuts % (Manual) Lymphocytes % (Manual) Monocytes % (Manual) Nucleated RBC % Seg Neutrophils # Man Lymphocytes # (Manual) PT INR APTT D-Dimer ABG pH 7.456 H POC ABG pCO2 POC ABG pO2 ABG pO2 ABG HCO3 ABG Base Excess ABG Hemoglobin 10.3 L ABG Oxyhemoglobin ABG Sodium ABG Potassium 3.1 L ABG Chloride ABG Glucose 125 H VBG pH Carboxyhemoglobin 0.3 L Sodium Potassium Chloride Carbon Dioxide BUN Creatinine Glucose POC Glucose 113 H Lactic Acid Calcium Phosphorus Magnesium Ferritin AST ALT Ammonia Lactate Dehydrogenase Troponin T C-Reactive Protein 19.60 H Total Protein Albumin Triglycerides LDL Cholesterol Direct HDL Cholesterol Arterial Blood Glucose 125 H Arterial Blood Ionized Calcium Urine WBC (Auto) Urine Creatinine Vancomycin Trough 06/06/21 06/06/21 06/07/21 04:35 22:37 05:54 WBC RBC Hgb Hct MCV MCH MCHC RDW Plt Count Seg Neuts % (Manual) Lymphocytes % (Manual) Monocytes % (Manual) Nucleated RBC % Seg Neutrophils # Man Lymphocytes # (Manual) PT INR APTT D-Dimer ABG pH POC ABG pCO2 POC ABG pO2 ABG pO2 ABG HCO3 ABG Base Excess ABG Hemoglobin ABG Oxyhemoglobin ABG Sodium ABG Potassium ABG Chloride ABG Glucose VBG pH Carboxyhemoglobin Sodium Potassium Chloride Carbon Dioxide BUN 43 H Creatinine Glucose POC Glucose 114 H 130 H Lactic Acid Calcium 7.6 L Phosphorus Magnesium Ferritin AST ALT Ammonia Lactate Dehydrogenase Troponin T C-Reactive Protein Total Protein Albumin Triglycerides LDL Cholesterol Direct HDL Cholesterol Arterial Blood Glucose Arterial Blood Ionized Calcium Urine WBC (Auto) Urine Creatinine Vancomycin Trough 06/07/21 06/07/21 06/07/21 07:32 10:03 11:36 WBC RBC 3.63 L Hgb 9.8 L Hct 30.3 L MCV 83 L MCH 27 L MCHC RDW Plt Count Seg Neuts % (Manual) Lymphocytes % (Manual) Monocytes % (Manual) Nucleated RBC % Seg Neutrophils # Man Lymphocytes # (Manual) PT INR APTT D-Dimer ABG pH POC ABG pCO2 POC ABG pO2 ABG pO2 ABG HCO3 ABG Base Excess ABG Hemoglobin ABG Oxyhemoglobin ABG Sodium ABG Potassium ABG Chloride ABG Glucose VBG pH Carboxyhemoglobin Sodium Potassium 3.2 L Chloride 108.5 H Carbon Dioxide BUN 36 H Creatinine Glucose 139 H POC Glucose 125 H Lactic Acid Calcium 8.0 L Phosphorus Magnesium Ferritin AST ALT Ammonia Lactate Dehydrogenase Troponin T C-Reactive Protein Total Protein Albumin Triglycerides LDL Cholesterol Direct HDL Cholesterol Arterial Blood Glucose Arterial Blood Ionized Calcium Urine WBC (Auto) Urine Creatinine Vancomycin Trough 06/07/21 06/07/21 06/08/21 17:54 22:14 07:18 WBC RBC Hgb Hct MCV MCH MCHC RDW Plt Count Seg Neuts % (Manual) Lymphocytes % (Manual) Monocytes % (Manual) Nucleated RBC % Seg Neutrophils # Man Lymphocytes # (Manual) PT INR APTT D-Dimer ABG pH POC ABG pCO2 POC ABG pO2 ABG pO2 ABG HCO3 ABG Base Excess ABG Hemoglobin ABG Oxyhemoglobin ABG Sodium ABG Potassium ABG Chloride ABG Glucose VBG pH Carboxyhemoglobin Sodium 149 H Potassium Chloride 110.2 H Carbon Dioxide BUN 31 H Creatinine Glucose 131 H POC Glucose 121 H 131 H Lactic Acid Calcium 8.1 L Phosphorus Magnesium Ferritin AST ALT Ammonia Lactate Dehydrogenase Troponin T C-Reactive Protein Total Protein Albumin Triglycerides LDL Cholesterol Direct HDL Cholesterol Arterial Blood Glucose Arterial Blood Ionized Calcium Urine WBC (Auto) Urine Creatinine Vancomycin Trough 06/08/21 06/08/21 06/08/21 07:45 12:07 18:02 WBC RBC Hgb Hct MCV MCH MCHC RDW Plt Count Seg Neuts % (Manual) Lymphocytes % (Manual) Monocytes % (Manual) Nucleated RBC % Seg Neutrophils # Man Lymphocytes # (Manual) PT INR APTT D-Dimer ABG pH POC ABG pCO2 POC ABG pO2 ABG pO2 ABG HCO3 ABG Base Excess ABG Hemoglobin ABG Oxyhemoglobin ABG Sodium ABG Potassium ABG Chloride ABG Glucose VBG pH Carboxyhemoglobin Sodium Potassium Chloride Carbon Dioxide BUN Creatinine Glucose POC Glucose 120 H 127 H 148 H Lactic Acid Calcium Phosphorus Magnesium Ferritin AST ALT Ammonia Lactate Dehydrogenase Troponin T C-Reactive Protein Total Protein Albumin Triglycerides LDL Cholesterol Direct HDL Cholesterol Arterial Blood Glucose Arterial Blood Ionized Calcium Urine WBC (Auto) Urine Creatinine Vancomycin Trough 06/09/21 06/09/21 06/09/21 05:51 05:51 11:37 WBC 3.9 L RBC 3.38 L Hgb 9.4 L Hct 28.5 L MCV MCH MCHC RDW Plt Count Seg Neuts % (Manual) Lymphocytes % (Manual) Monocytes % (Manual) Nucleated RBC % Seg Neutrophils # Man Lymphocytes # (Manual) PT INR APTT D-Dimer ABG pH POC ABG pCO2 POC ABG pO2 ABG pO2 ABG HCO3 ABG Base Excess ABG Hemoglobin ABG Oxyhemoglobin ABG Sodium ABG Potassium ABG Chloride ABG Glucose VBG pH Carboxyhemoglobin Sodium Potassium Chloride 108.4 H Carbon Dioxide BUN 32 H Creatinine Glucose 137 H POC Glucose 115 H Lactic Acid Calcium 7.5 L Phosphorus Magnesium Ferritin AST 55 H ALT Ammonia Lactate Dehydrogenase Troponin T C-Reactive Protein 4.10 H Total Protein 5.6 L Albumin 2.0 L Triglycerides LDL Cholesterol Direct HDL Cholesterol Arterial Blood Glucose Arterial Blood Ionized Calcium Urine WBC (Auto) Urine Creatinine Vancomycin Trough 06/09/21 06/09/21 06/10/21 17:32 22:18 01:52 WBC RBC 3.62 L Hgb 9.9 L Hct 29.8 L MCV 82 L MCH 27 L MCHC RDW Plt Count Seg Neuts % (Manual) Lymphocytes % (Manual) Monocytes % (Manual) Nucleated RBC % Seg Neutrophils # Man Lymphocytes # (Manual) PT INR APTT D-Dimer ABG pH POC ABG pCO2 POC ABG pO2 ABG pO2 ABG HCO3 ABG Base Excess ABG Hemoglobin ABG Oxyhemoglobin ABG Sodium ABG Potassium ABG Chloride ABG Glucose VBG pH Carboxyhemoglobin Sodium Potassium Chloride Carbon Dioxide BUN Creatinine Glucose POC Glucose 113 H 110 H Lactic Acid Calcium Phosphorus Magnesium Ferritin AST ALT Ammonia Lactate Dehydrogenase Troponin T C-Reactive Protein Total Protein Albumin Triglycerides LDL Cholesterol Direct HDL Cholesterol Arterial Blood Glucose Arterial Blood Ionized Calcium Urine WBC (Auto) Urine Creatinine Vancomycin Trough 06/10/21 06/10/21 06/10/21 01:52 16:14 22:45 WBC RBC Hgb Hct MCV MCH MCHC RDW Plt Count Seg Neuts % (Manual) Lymphocytes % (Manual) Monocytes % (Manual) Nucleated RBC % Seg Neutrophils # Man Lymphocytes # (Manual) PT INR APTT D-Dimer ABG pH POC ABG pCO2 POC ABG pO2 ABG pO2 ABG HCO3 ABG Base Excess ABG Hemoglobin ABG Oxyhemoglobin ABG Sodium ABG Potassium ABG Chloride ABG Glucose VBG pH Carboxyhemoglobin Sodium Potassium Chloride 108.2 H Carbon Dioxide BUN 32 H Creatinine 1.4 H Glucose POC Glucose 111 H 107 H Lactic Acid Calcium 7.8 L Phosphorus Magnesium Ferritin AST 55 H ALT Ammonia Lactate Dehydrogenase Troponin T C-Reactive Protein Total Protein 5.6 L Albumin 1.9 L Triglycerides LDL Cholesterol Direct HDL Cholesterol Arterial Blood Glucose Arterial Blood Ionized Calcium Urine WBC (Auto) Urine Creatinine Vancomycin Trough 06/11/21 06/11/21 06/11/21 05:51 05:51 05:51 WBC RBC 3.35 L Hgb 9.1 L Hct 28.1 L MCV MCH 27 L MCHC RDW Plt Count 117 L Seg Neuts % (Manual) 93.0 H Lymphocytes % (Manual) 1.0 L Monocytes % (Manual) Nucleated RBC % Seg Neutrophils # Man Lymphocytes # (Manual) 0.0 L PT INR APTT D-Dimer ABG pH POC ABG pCO2 POC ABG pO2 ABG pO2 ABG HCO3 ABG Base Excess ABG Hemoglobin ABG Oxyhemoglobin ABG Sodium ABG Potassium ABG Chloride ABG Glucose VBG pH Carboxyhemoglobin Sodium 146 H Potassium Chloride 110.9 H Carbon Dioxide BUN 40 H Creatinine Glucose 119 H POC Glucose Lactic Acid Calcium 7.8 L Phosphorus Magnesium Ferritin AST ALT Ammonia Lactate Dehydrogenase Troponin T C-Reactive Protein Total Protein Albumin Triglycerides LDL Cholesterol Direct HDL Cholesterol Arterial Blood Glucose Arterial Blood Ionized Calcium Urine WBC (Auto) Urine Creatinine Vancomycin Trough 22.6 H 06/11/21 06/11/21 06/11/21 08:28 11:36 15:47 WBC RBC Hgb Hct MCV MCH MCHC RDW Plt Count Seg Neuts % (Manual) Lymphocytes % (Manual) Monocytes % (Manual) Nucleated RBC % Seg Neutrophils # Man Lymphocytes # (Manual) PT INR APTT D-Dimer ABG pH POC ABG pCO2 POC ABG pO2 ABG pO2 ABG HCO3 ABG Base Excess ABG Hemoglobin ABG Oxyhemoglobin ABG Sodium ABG Potassium ABG Chloride ABG Glucose VBG pH Carboxyhemoglobin Sodium Potassium Chloride Carbon Dioxide BUN Creatinine Glucose POC Glucose 109 H 149 H 139 H Lactic Acid Calcium Phosphorus Magnesium Ferritin AST ALT Ammonia Lactate Dehydrogenase Troponin T C-Reactive Protein Total Protein Albumin Triglycerides LDL Cholesterol Direct HDL Cholesterol Arterial Blood Glucose Arterial Blood Ionized Calcium Urine WBC (Auto) Urine Creatinine Vancomycin Trough 06/11/21 06/12/21 06/12/21 21:42 04:00 04:00 WBC 4.0 L RBC 3.50 L Hgb 9.4 L Hct 29.9 L MCV MCH 27 L MCHC 31 L RDW 15.3 H Plt Count 126 L Seg Neuts % (Manual) 88.0 H Lymphocytes % (Manual) Monocytes % (Manual) 12.0 H Nucleated RBC % Seg Neutrophils # Man Lymphocytes # (Manual) 0.0 L PT INR APTT D-Dimer ABG pH POC ABG pCO2 POC ABG pO2 ABG pO2 ABG HCO3 ABG Base Excess ABG Hemoglobin ABG Oxyhemoglobin ABG Sodium ABG Potassium ABG Chloride ABG Glucose VBG pH Carboxyhemoglobin Sodium 149 H Potassium Chloride 114.1 H Carbon Dioxide BUN 37 H Creatinine Glucose 137 H POC Glucose 124 H Lactic Acid Calcium 8.0 L Phosphorus Magnesium Ferritin AST ALT Ammonia Lactate Dehydrogenase Troponin T C-Reactive Protein Total Protein Albumin Triglycerides LDL Cholesterol Direct HDL Cholesterol Arterial Blood Glucose Arterial Blood Ionized Calcium Urine WBC (Auto) Urine Creatinine Vancomycin Trough 06/12/21 06/13/21 06/13/21 06:37 00:14 06:05 WBC 4.3 L RBC 3.39 L Hgb 9.2 L Hct 28.6 L MCV MCH 27 L MCHC RDW 15.3 H Plt Count 107 L Seg Neuts % (Manual) 77.0 H Lymphocytes % (Manual) 1.0 L Monocytes % (Manual) Nucleated RBC % 1.0 H Seg Neutrophils # Man Lymphocytes # (Manual) 0.0 L PT INR APTT D-Dimer ABG pH POC ABG pCO2 POC ABG pO2 ABG pO2 ABG HCO3 ABG Base Excess ABG Hemoglobin ABG Oxyhemoglobin ABG Sodium ABG Potassium ABG Chloride ABG Glucose VBG pH Carboxyhemoglobin Sodium Potassium Chloride Carbon Dioxide BUN Creatinine Glucose POC Glucose 128 H 149 H Lactic Acid Calcium Phosphorus Magnesium Ferritin AST ALT Ammonia Lactate Dehydrogenase Troponin T C-Reactive Protein Total Protein Albumin Triglycerides LDL Cholesterol Direct HDL Cholesterol Arterial Blood Glucose Arterial Blood Ionized Calcium Urine WBC (Auto) Urine Creatinine Vancomycin Trough 06/13/21 06/13/21 06/14/21 06:05 11:51 04:29 WBC 4.2 L RBC 3.21 L Hgb 8.7 L Hct 26.7 L MCV 83 L MCH 27 L MCHC RDW 15.3 H Plt Count 87 L Seg Neuts % (Manual) 96 H Lymphocytes % (Manual) 2 L Monocytes % (Manual) Nucleated RBC % Seg Neutrophils # Man Lymphocytes # (Manual) 0.0 L PT INR APTT D-Dimer ABG pH POC ABG pCO2 POC ABG pO2 48.3 L ABG pO2 ABG HCO3 ABG Base Excess ABG Hemoglobin 10.7 L ABG Oxyhemoglobin 84.1 L ABG Sodium 145.5 H ABG Potassium ABG Chloride 116.0 H ABG Glucose VBG pH Carboxyhemoglobin Sodium 146 H Potassium 3.5 L Chloride 112.3 H Carbon Dioxide BUN 38 H Creatinine Glucose 112 H POC Glucose Lactic Acid Calcium 8.1 L Phosphorus Magnesium Ferritin AST ALT Ammonia Lactate Dehydrogenase Troponin T C-Reactive Protein Total Protein Albumin Triglycerides LDL Cholesterol Direct HDL Cholesterol Arterial Blood Glucose Arterial Blood Ionized Calcium Urine WBC (Auto) Urine Creatinine Vancomycin Trough 06/14/21 06/14/21 06/14/21 04:29 06:17 23:51 WBC RBC Hgb Hct MCV MCH MCHC RDW Plt Count Seg Neuts % (Manual) Lymphocytes % (Manual) Monocytes % (Manual) Nucleated RBC % Seg Neutrophils # Man Lymphocytes # (Manual) PT INR APTT D-Dimer ABG pH POC ABG pCO2 POC ABG pO2 ABG pO2 ABG HCO3 ABG Base Excess ABG Hemoglobin ABG Oxyhemoglobin ABG Sodium ABG Potassium ABG Chloride ABG Glucose VBG pH Carboxyhemoglobin Sodium 148 H Potassium Chloride 115.3 H Carbon Dioxide BUN 40 H Creatinine Glucose 124 H POC Glucose 106 H 135 H Lactic Acid Calcium 8.2 L Phosphorus Magnesium Ferritin AST ALT Ammonia Lactate Dehydrogenase Troponin T C-Reactive Protein Total Protein Albumin Triglycerides LDL Cholesterol Direct HDL Cholesterol Arterial Blood Glucose Arterial Blood Ionized Calcium Urine WBC (Auto) Urine Creatinine Vancomycin Trough 06/15/21 06/15/21 06/15/21 05:23 05:53 05:53 WBC 3.8 L RBC 2.94 L Hgb 8.0 L Hct 24.0 L MCV 81 L MCH 27 L MCHC RDW 15.6 H Plt Count 87 L Seg Neuts % (Manual) 95.0 H Lymphocytes % (Manual) 1.0 L Monocytes % (Manual) Nucleated RBC % 1.0 H Seg Neutrophils # Man Lymphocytes # (Manual) 0.0 L PT INR APTT D-Dimer ABG pH POC ABG pCO2 POC ABG pO2 ABG pO2 ABG HCO3 ABG Base Excess ABG Hemoglobin ABG Oxyhemoglobin ABG Sodium ABG Potassium ABG Chloride ABG Glucose VBG pH Carboxyhemoglobin Sodium Potassium Chloride 110.5 H Carbon Dioxide BUN 43 H Creatinine Glucose 143 H POC Glucose 134 H Lactic Acid Calcium 8.1 L Phosphorus 2.10 L D Magnesium Ferritin AST ALT Ammonia Lactate Dehydrogenase Troponin T C-Reactive Protein Total Protein Albumin Triglycerides LDL Cholesterol Direct HDL Cholesterol Arterial Blood Glucose Arterial Blood Ionized Calcium Urine WBC (Auto) Urine Creatinine Vancomycin Trough 06/16/21 06/16/21 06/16/21 05:22 05:59 05:59 WBC 3.4 L RBC 3.34 L Hgb 9.0 L Hct 27.9 L MCV MCH 27 L MCHC RDW 15.5 H Plt Count 72 L Seg Neuts % (Manual) 97.0 H Lymphocytes % (Manual) Monocytes % (Manual) Nucleated RBC % Seg Neutrophils # Man Lymphocytes # (Manual) 0.0 L PT INR APTT D-Dimer ABG pH POC ABG pCO2 POC ABG pO2 ABG pO2 ABG HCO3 ABG Base Excess ABG Hemoglobin ABG Oxyhemoglobin ABG Sodium ABG Potassium ABG Chloride ABG Glucose VBG pH Carboxyhemoglobin Sodium Potassium Chloride 108.8 H Carbon Dioxide BUN 53 H Creatinine 1.4 H Glucose 160 H POC Glucose 141 H Lactic Acid Calcium 8.1 L Phosphorus Magnesium Ferritin AST ALT Ammonia Lactate Dehydrogenase Troponin T C-Reactive Protein Total Protein Albumin Triglycerides LDL Cholesterol Direct HDL Cholesterol Arterial Blood Glucose Arterial Blood Ionized Calcium Urine WBC (Auto) Urine Creatinine Vancomycin Trough 06/16/21 06/16/21 06/17/21 11:31 17:08 06:25 WBC 4.4 L RBC 3.14 L Hgb 8.5 L Hct 25.7 L MCV 82 L MCH 27 L MCHC RDW 15.7 H Plt Count 64 L Seg Neuts % (Manual) 95.0 H Lymphocytes % (Manual) Monocytes % (Manual) Nucleated RBC % Seg Neutrophils # Man Lymphocytes # (Manual) 0.0 L PT INR APTT D-Dimer ABG pH POC ABG pCO2 POC ABG pO2 ABG pO2 ABG HCO3 ABG Base Excess ABG Hemoglobin ABG Oxyhemoglobin ABG Sodium ABG Potassium ABG Chloride ABG Glucose VBG pH Carboxyhemoglobin Sodium Potassium Chloride Carbon Dioxide BUN Creatinine Glucose POC Glucose 129 H 136 H Lactic Acid Calcium Phosphorus Magnesium Ferritin AST ALT Ammonia Lactate Dehydrogenase Troponin T C-Reactive Protein Total Protein Albumin Triglycerides LDL Cholesterol Direct HDL Cholesterol Arterial Blood Glucose Arterial Blood Ionized Calcium Urine WBC (Auto) Urine Creatinine Vancomycin Trough 06/17/21 06/17/21 06/17/21 06:25 18:19 18:38 WBC RBC Hgb Hct MCV MCH MCHC RDW Plt Count Seg Neuts % (Manual) Lymphocytes % (Manual) Monocytes % (Manual) Nucleated RBC % Seg Neutrophils # Man Lymphocytes # (Manual) PT INR APTT D-Dimer ABG pH 7.184 L POC ABG pCO2 65.8 H POC ABG pO2 130.5 H ABG pO2 ABG HCO3 ABG Base Excess ABG Hemoglobin 10.2 L ABG Oxyhemoglobin ABG Sodium ABG Potassium ABG Chloride 108.0 H ABG Glucose 229 H VBG pH Carboxyhemoglobin Sodium Potassium Chloride Carbon Dioxide BUN 62 H Creatinine Glucose 135 H POC Glucose 206 H Lactic Acid Calcium 7.8 L Phosphorus Magnesium Ferritin AST ALT Ammonia Lactate Dehydrogenase Troponin T C-Reactive Protein Total Protein Albumin Triglycerides LDL Cholesterol Direct HDL Cholesterol Arterial Blood Glucose 229 H Arterial Blood Ionized Calcium Urine WBC (Auto) Urine Creatinine Vancomycin Trough 06/18/21 06/18/21 06/18/21 00:29 05:15 10:56 WBC RBC Hgb Hct MCV MCH MCHC RDW Plt Count Seg Neuts % (Manual) Lymphocytes % (Manual) Monocytes % (Manual) Nucleated RBC % Seg Neutrophils # Man Lymphocytes # (Manual) PT INR APTT D-Dimer ABG pH POC ABG pCO2 POC ABG pO2 ABG pO2 ABG HCO3 ABG Base Excess ABG Hemoglobin ABG Oxyhemoglobin ABG Sodium ABG Potassium ABG Chloride ABG Glucose VBG pH Carboxyhemoglobin Sodium Potassium Chloride Carbon Dioxide BUN Creatinine Glucose POC Glucose 142 H 152 H Lactic Acid Calcium Phosphorus 5.60 H D Magnesium Ferritin AST ALT Ammonia Lactate Dehydrogenase Troponin T C-Reactive Protein Total Protein Albumin Triglycerides LDL Cholesterol Direct HDL Cholesterol Arterial Blood Glucose Arterial Blood Ionized Calcium Urine WBC (Auto) Urine Creatinine Vancomycin Trough 06/18/21 06/18/21 06/18/21 15:02 15:02 15:02 WBC 4.4 L RBC 3.39 L Hgb 9.7 L Hct 28.4 L MCV MCH MCHC RDW 16.3 H Plt Count 65 L Seg Neuts % (Manual) Lymphocytes % (Manual) Monocytes % (Manual) Nucleated RBC % Seg Neutrophils # Man Lymphocytes # (Manual) PT 15.6 H INR APTT 41.2 H D-Dimer ABG pH POC ABG pCO2 POC ABG pO2 ABG pO2 ABG HCO3 ABG Base Excess ABG Hemoglobin ABG Oxyhemoglobin ABG Sodium ABG Potassium ABG Chloride ABG Glucose VBG pH Carboxyhemoglobin Sodium Potassium Chloride Carbon Dioxide BUN Creatinine 2.0 H Glucose POC Glucose Lactic Acid Calcium Phosphorus Magnesium Ferritin AST ALT Ammonia Lactate Dehydrogenase Troponin T C-Reactive Protein Total Protein Albumin Triglycerides LDL Cholesterol Direct HDL Cholesterol Arterial Blood Glucose Arterial Blood Ionized Calcium Urine WBC (Auto) Urine Creatinine Vancomycin Trough 06/18/21 06/18/21 06/18/21 Unknown Unknown Unknown WBC 4.0 L RBC 2.72 L Hgb 8.0 L Hct 24.0 L MCV MCH MCHC RDW 17.2 H Plt Count 60 L Seg Neuts % (Manual) Lymphocytes % (Manual) Monocytes % (Manual) Nucleated RBC % Seg Neutrophils # Man Lymphocytes # (Manual) PT INR APTT D-Dimer ABG pH POC ABG pCO2 POC ABG pO2 ABG pO2 ABG HCO3 ABG Base Excess ABG Hemoglobin ABG Oxyhemoglobin ABG Sodium ABG Potassium ABG Chloride ABG Glucose VBG pH Carboxyhemoglobin Sodium 134 L D Potassium 6.0 H D Chloride Carbon Dioxide BUN 80 H Creatinine 1.8 H Glucose 395 H POC Glucose Lactic Acid Calcium 6.9 L Phosphorus Magnesium Ferritin AST < 5 L ALT < 5 L Ammonia Lactate Dehydrogenase Troponin T C-Reactive Protein Total Protein 4.9 L Albumin 1.4 L Triglycerides LDL Cholesterol Direct HDL Cholesterol Arterial Blood Glucose Arterial Blood Ionized Calcium Urine WBC (Auto) 10.0 H Urine Creatinine Vancomycin Trough 06/19/21 06/19/21 06/19/21 02:41 04:53 05:37 WBC RBC Hgb Hct MCV MCH MCHC RDW Plt Count Seg Neuts % (Manual) Lymphocytes % (Manual) Monocytes % (Manual) Nucleated RBC % Seg Neutrophils # Man Lymphocytes # (Manual) PT INR APTT D-Dimer ABG pH 7.270 L POC ABG pCO2 49.0 H POC ABG pO2 ABG pO2 ABG HCO3 ABG Base Excess ABG Hemoglobin 8.8 L ABG Oxyhemoglobin ABG Sodium ABG Potassium ABG Chloride 111.0 H ABG Glucose 110 H VBG pH Carboxyhemoglobin Sodium Potassium Chloride Carbon Dioxide BUN 92 H Creatinine 3.2 H D Glucose 123 H POC Glucose 114 H Lactic Acid Calcium 7.4 L Phosphorus Magnesium Ferritin AST ALT Ammonia Lactate Dehydrogenase Troponin T C-Reactive Protein Total Protein Albumin Triglycerides LDL Cholesterol Direct HDL Cholesterol Arterial Blood Glucose 110 H Arterial Blood Ionized Calcium Urine WBC (Auto) Urine Creatinine Vancomycin Trough 06/19/21 06/19/21 06/19/21 08:55 09:37 09:41 WBC RBC 2.91 L Hgb 7.9 L Hct 24.4 L MCV MCH 27 L MCHC RDW 16.5 H Plt Count 64 L Seg Neuts % (Manual) Lymphocytes % (Manual) Monocytes % (Manual) Nucleated RBC % Seg Neutrophils # Man Lymphocytes # (Manual) PT 19.2 H INR 1.46 H APTT 54.3 H D-Dimer ABG pH POC ABG pCO2 POC ABG pO2 ABG pO2 ABG HCO3 ABG Base Excess ABG Hemoglobin ABG Oxyhemoglobin ABG Sodium ABG Potassium ABG Chloride ABG Glucose VBG pH Carboxyhemoglobin Sodium 146 H Potassium Chloride Carbon Dioxide BUN Creatinine 3.5 H Glucose POC Glucose Lactic Acid Calcium Phosphorus Magnesium Ferritin AST ALT Ammonia Lactate Dehydrogenase Troponin T C-Reactive Protein Total Protein Albumin Triglycerides LDL Cholesterol Direct HDL Cholesterol Arterial Blood Glucose Arterial Blood Ionized Calcium Urine WBC (Auto) Urine Creatinine Vancomycin Trough 06/19/21 06/19/21 06/19/21 11:14 12:19 16:15 WBC RBC Hgb Hct MCV MCH MCHC RDW Plt Count Seg Neuts % (Manual) Lymphocytes % (Manual) Monocytes % (Manual) Nucleated RBC % Seg Neutrophils # Man Lymphocytes # (Manual) PT INR APTT D-Dimer ABG pH POC ABG pCO2 POC ABG pO2 ABG pO2 ABG HCO3 ABG Base Excess ABG Hemoglobin ABG Oxyhemoglobin ABG Sodium ABG Potassium ABG Chloride ABG Glucose VBG pH Carboxyhemoglobin Sodium Potassium Chloride Carbon Dioxide BUN Creatinine Glucose POC Glucose Lactic Acid Calcium Phosphorus Magnesium Ferritin AST ALT Ammonia Lactate Dehydrogenase Troponin T 0.109 H* C-Reactive Protein 11.50 H Total Protein Albumin Triglycerides 295 H LDL Cholesterol Direct 24 L HDL Cholesterol 17 L Arterial Blood Glucose Arterial Blood Ionized Calcium Urine WBC (Auto) Urine Creatinine 49.9 H Vancomycin Trough 06/19/21 06/19/21 06/20/21 18:05 22:40 05:00 WBC 4.1 L RBC 2.66 L Hgb 7.3 L Hct 22.5 L MCV MCH MCHC RDW 16.9 H Plt Count 60 L Seg Neuts % (Manual) Lymphocytes % (Manual) Monocytes % (Manual) Nucleated RBC % Seg Neutrophils # Man Lymphocytes # (Manual) PT INR APTT D-Dimer ABG pH POC ABG pCO2 POC ABG pO2 ABG pO2 ABG HCO3 ABG Base Excess ABG Hemoglobin ABG Oxyhemoglobin ABG Sodium ABG Potassium ABG Chloride ABG Glucose VBG pH Carboxyhemoglobin Sodium Potassium Chloride Carbon Dioxide BUN Creatinine Glucose POC Glucose 131 H 121 H Lactic Acid Calcium Phosphorus Magnesium Ferritin AST ALT Ammonia Lactate Dehydrogenase Troponin T C-Reactive Protein Total Protein Albumin Triglycerides LDL Cholesterol Direct HDL Cholesterol Arterial Blood Glucose Arterial Blood Ionized Calcium Urine WBC (Auto) Urine Creatinine Vancomycin Trough 06/20/21 06/20/21 05:00 05:17 WBC RBC Hgb Hct MCV MCH MCHC RDW Plt Count Seg Neuts % (Manual) Lymphocytes % (Manual) Monocytes % (Manual) Nucleated RBC % Seg Neutrophils # Man Lymphocytes # (Manual) PT INR APTT D-Dimer ABG pH POC ABG pCO2 POC ABG pO2 ABG pO2 ABG HCO3 ABG Base Excess ABG Hemoglobin ABG Oxyhemoglobin ABG Sodium ABG Potassium ABG Chloride ABG Glucose VBG pH Carboxyhemoglobin Sodium Potassium Chloride 111.6 H Carbon Dioxide 20 L BUN 108 H Creatinine 4.3 H Glucose 152 H POC Glucose 137 H Lactic Acid Calcium 7.1 L Phosphorus Magnesium Ferritin AST ALT Ammonia Lactate Dehydrogenase Troponin T C-Reactive Protein Total Protein Albumin Triglycerides LDL Cholesterol Direct HDL Cholesterol Arterial Blood Glucose Arterial Blood Ionized Calcium Urine WBC (Auto) Urine Creatinine Vancomycin Trough Allied health notes reviewed: nursing
--- NOTE | 2021-06-20 12:18 | XRay Report ---
CHEST 1 VIEW 12:03 PM INDICATION: chest tube placement. COMPARISON: Earlier today. FINDINGS: Support devices: There is a new left thoracostomy tube with tip projecting in the medial left lower h emithorax. Heart: Stable. Lungs/Pleura: There is mild decrease in size of moderate to large left pneumothorax. Pulmonary opacit ies are stable. IMPRESSION: 1. There is mild decrease in size of the moderate to large left pneumothorax after chest tube placeme nt. Chest tube tip projects over the inferomedial left hemithorax. Continued radiographic follow-up i s recommended given the lack of significant change in pneumothorax size. Signer Name: Ovidio Cm MD Signed: 06/20/2021 12:14 PM Workstation Name: [id number]
[2021-06-20] MEDS: NORepinephrine/NS 8 MG-250 ML 8 MG/250 ML INFUS..BTL IV SCH ×2 (12:38→16:47)
--- NOTE | 2021-06-20 14:04 | Progress Note ---
Assessment and Plan Impression: * Acute kidney injury secondary to ATN likely related to COVID 19 * Acute hypoxic respiratory failure secondary to COVID 19 PNA * Azotemia * Hyperkalemia * Metabolic acidosis * Hypernatremia Plan: * creatinine is stable 1.2->1.4->1.2->1.1->1.2->1.3->1.3 > 1.4 > 1.3> 1.8 > 3.2 > 4.3 * Vasculitis work-up negative, including ANCA as well as complement levels. * Keep MAP>65 * Management of COVID 19 PNA to primary team/ID * Dose medications for renal function * Renal diet * follow up lytes prn * His renal function seems to be getting worse. His urine shows 1+ dipstick protein and moderate blood. Urine output is also declining. Patient may have progressed to ATN. Fractional excretion of sodium is 2.3% * Patient is getting oliguric as well as acidotic. Need to initiate renal replacement therapy. Discussed with ICU team. Patient is to have a Vas-Cath placed. Initiate dialysis thereafter. Subjective Date of service: 06/20/21 Principal diagnosis: Acute hypoxemic resp failure; Pneumonia; PUI COVID-19 infection Interval history: Events from this morning noted. Patient had a PEA arrest. Is currently on the ventilator with 100% FiO2. He also has a left-sided chest tube in place. Patient is currently unresponsive. Currently on 1 pressor. Objective - Vital Signs Vital signs: Vital Signs - 12hr 06/20/21 06/20/21 06/20/21 02:15 02:30 02:45 Temperature Pulse Rate 117 H 117 H 116 H Pulse Rate [ From Monitor] Respiratory 20 17 17 Rate Blood Pressure 120/59 110/57 110/55 O2 Sat by Pulse 92 93 93 Oximetry 06/20/21 06/20/21 06/20/21 03:00 03:15 03:30 Temperature Pulse Rate 116 H 116 H 115 H Pulse Rate [ From Monitor] Respiratory 20 20 17 Rate Blood Pressure 103/58 110/55 113/55 O2 Sat by Pulse 93 93 93 Oximetry 06/20/21 06/20/21 06/20/21 03:36 03:37 03:45 Temperature 99.3 F Pulse Rate 114 H 115 H Pulse Rate [ From Monitor] Respiratory 17 Rate Blood Pressure 113/56 111/59 O2 Sat by Pulse 97 93 Oximetry 06/20/21 06/20/21 06/20/21 04:00 04:15 04:30 Temperature Pulse Rate 115 H 115 H 115 H Pulse Rate [ 115 H From Monitor] Respiratory 16 19 21 Rate Blood Pressure 114/59 118/59 113/58 O2 Sat by Pulse 93 93 93 Oximetry 06/20/21 06/20/21 06/20/21 04:45 05:00 05:15 Temperature Pulse Rate 115 H 114 H 113 H Pulse Rate [ From Monitor] Respiratory 21 20 26 H Rate Blood Pressure 119/59 114/50 114/50 O2 Sat by Pulse 93 90 95 Oximetry 06/20/21 06/20/21 06/20/21 05:30 05:45 06:00 Temperature Pulse Rate 114 H 114 H 113 H Pulse Rate [ From Monitor] Respiratory 30 H 30 H 23 Rate Blood Pressure 120/51 120/51 115/54 O2 Sat by Pulse 93 95 95 Oximetry 06/20/21 06/20/21 06/20/21 06:15 06:30 06:45 Temperature Pulse Rate 113 H 113 H 112 H Pulse Rate [ From Monitor] Respiratory 30 H 28 H 25 H Rate Blood Pressure 115/54 120/55 120/55 O2 Sat by Pulse 96 93 96 Oximetry 06/20/21 06/20/21 06/20/21 07:00 07:15 07:28 Temperature 97.8 F Pulse Rate 110 H 109 H Pulse Rate [ From Monitor] Respiratory 24 18 Rate Blood Pressure 119/58 122/60 O2 Sat by Pulse 94 95 Oximetry 06/20/21 06/20/21 06/20/21 07:30 07:41 07:45 Temperature Pulse Rate 111 H 111 H 111 H Pulse Rate [ From Monitor] Respiratory 20 22 Rate Blood Pressure 123/62 123/62 123/62 O2 Sat by Pulse 95 97 97 Oximetry 06/20/21 06/20/21 06/20/21 08:00 08:01 08:15 Temperature 97.7 F Pulse Rate 114 H 118 H 112 H Pulse Rate [ From Monitor] Respiratory 27 H 28 H Rate Blood Pressure 134/64 134/64 O2 Sat by Pulse 95 97 Oximetry 06/20/21 06/20/21 06/20/21 08:30 08:39 08:45 Temperature Pulse Rate 114 H 114 H Pulse Rate [ 113 H From Monitor] Respiratory 31 H 30 H 27 H Rate Blood Pressure 129/61 128/61 O2 Sat by Pulse 95 96 97 Oximetry 06/20/21 06/20/21 06/20/21 09:00 09:15 09:30 Temperature Pulse Rate 113 H 113 H 113 H Pulse Rate [ From Monitor] Respiratory 25 H 28 H 31 H Rate Blood Pressure 129/60 127/62 131/65 O2 Sat by Pulse 94 96 97 Oximetry 06/20/21 06/20/21 06/20/21 09:45 10:00 10:15 Temperature Pulse Rate 113 H 113 H 113 H Pulse Rate [ From Monitor] Respiratory 18 20 20 Rate Blood Pressure 125/66 129/66 118/67 O2 Sat by Pulse 97 96 97 Oximetry 06/20/21 06/20/21 06/20/21 10:30 10:45 11:00 Temperature Pulse Rate 113 H 114 H 116 H Pulse Rate [ From Monitor] Respiratory 17 21 16 Rate Blood Pressure 120/66 126/65 118/67 O2 Sat by Pulse 95 94 99 Oximetry 06/20/21 06/20/21 06/20/21 11:15 11:31 11:45 Temperature Pulse Rate 154 H 133 H Pulse Rate [ From Monitor] Respiratory 29 H 18 Rate Blood Pressure 118/67 188/97 173/89 O2 Sat by Pulse Oximetry 06/20/21 06/20/21 06/20/21 12:00 12:15 12:31 Temperature Pulse Rate 143 H 142 H 144 H Pulse Rate [ From Monitor] Respiratory 29 H 22 30 H Rate Blood Pressure 160/86 157/78 151/67 O2 Sat by Pulse 87 Oximetry 06/20/21 06/20/21 06/20/21 12:45 12:59 13:00 Temperature 98.6 F Pulse Rate 141 H 137 H Pulse Rate [ From Monitor] Respiratory 29 H 31 H Rate Blood Pressure 133/70 87/47 O2 Sat by Pulse 98 99 Oximetry - General Appearance General appearance: well-developed, well-nourished, appears stated age, intubated EENT: PERRL, mucous membranes moist Neck: no JVD, no thyromegaly, no carotid bruit, supple Respiratory: Present: Ronchi (Bilateral scattered rhonchi), Other (Left-sided chest tube in place) Cardiology: regular, normal heart rate Gastrointestinal: normal, normoactive bowel sounds Integumentary: other (No edema) - Lab 06/20/21 05:00 06/20/21 05:00 Most recent lab results ABG pH 6.994 (7.320-7.450) L 06/20/21 11:40 ABG pCO2 29.0 mm Hg 05/30/21 22:32 ABG pO2 141.8 mm Hg (80.0-90.0) H 05/30/21 22:32 ABG HCO3 19.9 mmol/L (20.0-26.0) L 05/30/21 22:32 ABG O2 Saturation 95.3 (0-100) 06/20/21 11:40 Calcium 7.1 mg/dL (8.4-10.2) L 06/20/21 05:00 Phosphorus 5.60 mg/dL (2.5-4.5) H D 06/18/21 10:56 Magnesium 2.30 mg/dL (1.7-2.3) 06/18/21 10:56 Urine Creatinine 49.9 mg/dL (0.1-20.0) H 06/19/21 11:14 Urine Sodium 56 mmol/L 06/19/21 11:14 Medications & Allergies - Medications Allergies/Adverse Reactions: Allergies No Known Allergies Allergy (Unverified 02/12/17 15:47) Home Medications: Home Medications Medication Instructions Recorded Confirmed Last Taken Type No Known Home Medications [No 05/31/21 05/31/21 Unknown History Reported Home Medications] Active Medications: Generic Name Dose Route Start Last Admin Trade Name Freq PRN Reason Stop Dose Admin Acetaminophen 650 mg 06/19/21 12:00 06/19/21 12:15 Acetaminophen 325 Mg/10.15 Ml Oral Liqd Unit Dose FEEDTUBE 650 mg Q6H PRN Administration Pain MILD(1-3)/Fever >100.5/LUCAS Albuterol/Ipratropium 1 ampul 06/07/21 20:00 06/20/21 02:42 Ipratropium/Albuterol Sulfate 3 Ml Ampul.Neb IH Not Given TIDRT [facility] Alteplase, Recombinant 2 mg 06/20/21 10:45 06/20/21 12:08 Alteplase 2 Mg Inj IV 06/20/21 14:45 2 mg ONCE@1045 MIKE Administration Lipase/Protease/Amylase 1 each 06/18/21 12:21 Lipase 10,500/Protease 25,000/Amylase 43,750 (Units) Dr Cap FEEDTUBE PRN PRN For Clogged Feeding Tube Famotidine 10 mg 06/19/21 10:00 06/20/21 09:27 Famotidine 20 Mg/2 Ml Inj IV 10 mg BID MIKE Administration Fentanyl 50 mcg 06/17/21 17:00 Fentanyl 100 Mcg/2 Ml Inj IV Q10MIN PRN ANALGESIA Hydrophilic Ointment 1 applic 06/17/21 17:00 Lip Therapy Vaseline TP Q2HR PRN Dry Lips Metronidazole 500 mg in 100 mls @ 100 mls/hr 06/08/21 13:00 06/20/21 08:05 Flagyl 500 Mg/100 Ml IV 06/29/21 05:59 Infused Q8H MIKE Infusion Protocol Fentanyl Citrate 2,000 mcg in 100 mls @ 3.725 mls/hr 06/17/21 17:00 06/20/21 07:00 Fentanyl Drip Premix IV 2 mcg/kg/hr TITR MIKE 7.45 mls/hr Administration Protocol 1 MCG/KG/HR NORepinephrine/NS 8 MG-250 ML 8 mg in 250 mls @ 3.75 mls/hr 06/18/21 23:00 06/20/21 12:38 Norepinephrine/Ns 8 Mg-250 Ml (Double Conc) IV 20 mcg/min TITRATE MIKE 37.5 mls/hr Administration Protocol 2 MCG/MIN Cefepime HCl 2 gm in 100 mls @ 200 mls/hr 06/20/21 06:00 06/20/21 08:05 Cefepime/Ns 2 Gm/100 Ml IV 06/29/21 06:29 Infused Q24H MIKE Infusion Protocol Sodium Chloride 1,000 mls @ 50 mls/hr 06/20/21 09:30 Nacl 0.9% 1000 Ml IV DIRECT MIKE Sodium Bicarbonate 150 meq/ 1,150 mls @ 125 mls/hr 06/20/21 12:00 06/20/21 12:36 Dextrose IV 125 mls/hr DIRECT MIKE Administration Propofol 1,000 mg in 100 mls @ 2.226 mls/hr 06/20/21 13:00 Diprivan 10 Mg/Ml IV TITR MIKE Protocol 5 MCG/KG/MIN Morphine Sulfate 2 mg 05/23/21 22:01 06/17/21 10:01 Morphine 2 Mg/1 Ml Inj IV 2 mg Q4H PRN Administration Pain, Moderate (4-6) Multi-Ingred Cream/Lotion/Oil/Oint 1 applic 06/17/21 18:00 Mineral Oil/Petrolatum, White Ophth Oint 3.5 Gm OU Q4HR PRN Dry Eye(s) Ondansetron HCl 4 mg 06/04/21 13:41 06/09/21 22:05 Ondansetron 4 Mg/2 Ml Inj IV 4 mg Q4H PRN Administration Nausea And Vomiting Senna/Docusate Sodium 1 tab 06/17/21 22:00 06/20/21 10:09 Sennosides/Docusate Sodium 8.6/50 Mg Tab FEEDTUBE 1 tab BID MIKE Administration Simple Syrup 15 ml 06/18/21 12:21 Simple Syrup 15 Ml FEEDTUBE PRN PRN Hypoglycemia Simple Syrup 30 ml 06/18/21 12:21 Simple Syrup 15 Ml FEEDTUBE PRN PRN Hypoglycemia Sodium Bicarbonate 325 mg 06/18/21 12:21 Sodium Bicarbonate 325 Mg Tab FEEDTUBE PRN PRN For Clogged Feeding Tube Sodium Chloride 10 ml 05/23/21 22:01 06/20/21 09:27 Sodium Chloride 0.9% 10 Ml Flush Syringe IV 10 ml PRN PRN Administration LINE FLUSH
[2021-06-20] MEDS ORDERED: SODIUM CHLORIDE 0.9% 100 ML IV PRN (14:05)
--- NOTE | 2021-06-20 14:07 | Progress Note ---
Assessment and Plan Suspect physiologic sinus tachycardia in the setting of sepsis/shock. Agree with aggressive IV fluids. Not a candiate for anticougulation secondary to anemia and beta blockers secondary to hypotension as well as reports of melena per nursing staff. Poor prognosis. Will see as needed over weekend Patient seen in conjunction with Dr. Adhikari who agrees with this plan of care - Patient Problems (1) ANGELES (acute kidney injury) Current Visit: Yes Status: Acute (2) Abscess of left lung with pneumonia Current Visit: Yes Status: Acute (3) Acute respiratory failure with hypoxia Current Visit: Yes Status: Acute (4) Anemia Current Visit: Yes Status: Acute (5) Bilateral pneumonia Current Visit: Yes Status: Acute (6) Failure to thrive Current Visit: Yes Status: Acute Qualifiers: Failure to thrive age range: in adult Qualified Code(s): R62.7 - Adult failure to thrive (7) NSTEMI (non-ST elevated myocardial infarction) Current Visit: Yes Status: Acute (8) Sinus tachycardia Current Visit: Yes Status: Acute (9) History of CVA (cerebrovascular accident) Current Visit: Yes Status: Chronic Subjective Date of service: 06/20/21 Principal diagnosis: Acute hypoxemic resp failure; Pneumonia; PUI COVID-19 infection Interval history: The patient went into PEA arrest this AM. He received 3 doses of epi, and was shocked for Vtach rhythm with ROSC was acheived. CXR showed a new pneumothorax after chest compression. Objective Vital Signs Temp Pulse Pulse Resp BP Pulse Ox 06/20/21 13:00 137 H 31 H 87/47 99 06/20/21 12:59 98.6 F 06/20/21 12:45 141 H 29 H 133/70 98 06/20/21 12:31 144 H 30 H 151/67 87 06/20/21 12:15 142 H 22 157/78 06/20/21 12:00 143 H 29 H 160/86 06/20/21 11:45 133 H 18 173/89 06/20/21 11:31 154 H 29 H 188/97 06/20/21 11:15 118/67 06/20/21 11:00 116 H 16 118/67 99 06/20/21 10:45 114 H 21 126/65 94 06/20/21 10:30 113 H 17 120/66 95 06/20/21 10:15 113 H 20 118/67 97 06/20/21 10:00 113 H 20 129/66 96 06/20/21 09:45 113 H 18 125/66 97 06/20/21 09:30 113 H 31 H 131/65 97 06/20/21 09:15 113 H 28 H 127/62 96 06/20/21 09:00 113 H 25 H 129/60 94 06/20/21 08:45 114 H 27 H 128/61 97 06/20/21 08:39 113 H 30 H 96 06/20/21 08:30 114 H 31 H 129/61 95 06/20/21 08:15 112 H 28 H 134/64 97 06/20/21 08:01 118 H 06/20/21 08:00 97.7 F 114 H 27 H 134/64 95 06/20/21 07:45 111 H 22 123/62 97 06/20/21 07:41 111 H 123/62 97 06/20/21 07:30 111 H 20 123/62 95 06/20/21 07:28 97.8 F 06/20/21 07:15 109 H 18 122/60 95 06/20/21 07:00 110 H 24 119/58 94 06/20/21 06:45 112 H 25 H 120/55 96 06/20/21 06:30 113 H 28 H 120/55 93 06/20/21 06:15 113 H 30 H 115/54 96 06/20/21 06:00 113 H 23 115/54 95 06/20/21 05:45 114 H 30 H 120/51 95 06/20/21 05:30 114 H 30 H 120/51 93 06/20/21 05:15 113 H 26 H 114/50 95 06/20/21 05:00 114 H 20 114/50 90 06/20/21 04:45 115 H 21 119/59 93 06/20/21 04:30 115 H 21 113/58 93 06/20/21 04:15 115 H 19 118/59 93 06/20/21 04:00 115 H 115 H 16 114/59 93 06/20/21 03:45 115 H 17 111/59 93 06/20/21 03:37 99.3 F 06/20/21 03:36 114 H 113/56 97 06/20/21 03:30 115 H 17 113/55 93 06/20/21 03:15 116 H 20 110/55 93 06/20/21 03:00 116 H 20 103/58 93 06/20/21 02:45 116 H 17 110/55 93 06/20/21 02:30 117 H 17 110/57 93 06/20/21 02:15 117 H 20 120/59 92 06/20/21 02:00 116 H 17 116/59 93 06/20/21 01:45 117 H 18 120/59 92 06/20/21 01:30 118 H 22 111/60 92 06/20/21 01:15 118 H 19 115/61 93 06/20/21 01:00 118 H 20 118/61 92 06/20/21 00:45 118 H 19 113/58 92 06/20/21 00:30 118 H 23 115/59 92 06/20/21 00:15 117 H 18 115/60 92 06/20/21 00:00 134 H 117 H 26 H 125/65 96 06/19/21 23:45 117 H 21 110/63 95 06/19/21 23:30 116 H 22 115/61 93 06/19/21 23:15 119 H 17 120/62 95 06/19/21 23:02 99.3 F 06/19/21 23:01 119 H 16 120/62 97 06/19/21 22:45 119 H 19 120/62 97 06/19/21 22:31 118 H 18 120/62 97 06/19/21 22:15 118 H 18 120/62 98 06/19/21 22:01 117 H 19 120/62 98 06/19/21 21:45 117 H 22 120/62 96 06/19/21 21:31 117 H 27 H 120/62 97 06/19/21 21:15 119 H 21 120/62 96 06/19/21 21:01 119 H 28 H 120/62 97 06/19/21 20:45 118 H 22 120/62 96 06/19/21 20:31 119 H 24 120/62 97 06/19/21 20:15 118 H 30 H 120/62 97 06/19/21 20:00 117 H 117 H 26 H 120/62 96 06/19/21 19:45 117 H 16 117/62 96 06/19/21 19:40 98.9 F 06/19/21 19:30 119 H 20 110/61 93 06/19/21 19:15 118 H 24 119/60 96 06/19/21 19:00 117 H 27 H 111/60 93 06/19/21 18:00 119 H 25 H 108/55 92 06/19/21 17:55 120 H 27 H 107/56 96 06/19/21 17:50 120 H 26 H 107/56 91 06/19/21 17:45 121 H 24 109/60 95 06/19/21 17:40 121 H 29 H 109/60 92 06/19/21 17:35 120 H 29 H 103/58 96 06/19/21 17:30 120 H 25 H 103/58 93 06/19/21 17:25 120 H 30 H 91/58 96 06/19/21 17:20 119 H 29 H 91/58 93 06/19/21 17:15 120 H 28 H 97/58 96 06/19/21 17:10 120 H 30 H 97/58 92 06/19/21 17:05 121 H 31 H 96 06/19/21 17:00 122 H 30 H 103/48 95 06/19/21 16:56 124 H 32 H 103/48 92 06/19/21 16:50 127 H 16 119/58 94 06/19/21 16:45 126 H 29 H 119/58 94 06/19/21 16:40 127 H 31 H 119/58 92 06/19/21 16:35 126 H 30 H 117/60 94 06/19/21 16:30 126 H 29 H 117/60 91 06/19/21 16:25 124 H 30 H 129/67 95 06/19/21 16:21 124 H 30 H 129/67 94 06/19/21 16:18 124 H 129/67 95 06/19/21 16:15 125 H 16 117/56 92 06/19/21 16:10 126 H 17 117/56 89 06/19/21 16:05 126 H 22 120/58 91 06/19/21 16:00 125 H 134 H 22 120/58 88 06/19/21 15:55 126 H 18 115/60 91 06/19/21 15:50 127 H 22 115/60 89 06/19/21 15:45 126 H 21 122/62 91 06/19/21 15:40 126 H 24 122/62 88 06/19/21 15:35 126 H 18 122/59 91 06/19/21 15:30 126 H 17 122/59 89 06/19/21 15:25 127 H 19 127/61 90 06/19/21 15:20 126 H 22 127/61 88 06/19/21 15:15 126 H 16 124/60 91 06/19/21 15:10 127 H 20 124/60 89 06/19/21 15:05 126 H 22 121/61 91 06/19/21 15:00 126 H 29 H 121/61 89 06/19/21 14:55 126 H 21 126/62 91 06/19/21 14:50 128 H 16 126/62 89 06/19/21 14:45 126 H 18 123/60 91 06/19/21 14:40 126 H 23 123/60 88 06/19/21 14:35 130 H 22 119/58 92 06/19/21 14:30 126 H 16 119/58 89 06/19/21 14:25 126 H 13 114/58 92 06/19/21 14:20 126 H 14 114/57 89 06/19/21 14:15 126 H 19 114/58 91 06/19/21 14:10 127 H 16 114/58 89 06/19/21 14:05 125 H 15 108/54 92 - Physical Examination General: Other (intubated ) HEENT: Positive: Normocephaly Neck: Positive: neck supple, trachea midline. Negative: JVD/HJR Cardiac: Positive: Reg Rate and Rhythm Lungs: Positive: Ventilated Respirations Neuro: Positive: Other (intubated) Abdomen: Positive: Soft Skin: Negative: Rash Musculoskeletal: No Fluid Collection Extremities: Present: lower extr. pulses, warm. Absent: edema - Labs and Meds CBC 06/20/21 Range/Units 05:00 WBC 4.1 L (4.5-11.0) K/mm3 RBC 2.66 L (3.65-5.03) M/mm3 Hgb 7.3 L (11.8-15.2) gm/dl Hct 22.5 L (35.5-45.6) % Plt Count 60 L (140-440) K/mm3 Comprehensive Metabolic Panel 06/20/21 Range/Units 05:00 Sodium 145 (137-145) mmol/L Potassium 4.3 (3.6-5.0) mmol/L Chloride 111.6 H (98-107) mmol/L Carbon Dioxide 20 L (22-30) mmol/L BUN 108 H (9-20) mg/dL Creatinine 4.3 H (0.8-1.3) mg/dL Glucose 152 H (75-100) mg/dL Calcium 7.1 L (8.4-10.2) mg/dL - Imaging and Cardiology EKG: report reviewed, image reviewed Echo: report reviewed (06/05/2021 - EF 55-60%, normal diastolic fxn, no valvular abnormalities) - EKG Sinus rhythms and dysrhythmias: sinus tachycardia Repolarization changes or abnormalities: nonspecific abnormality, ST segment, and/or T wave - Allied health notes Allied health notes reviewed: nursing
[2021-06-20 14:31] LABS: Alanine Aminotransferase 11 units/L (7-56); BUN/Creatinine Ratio 27; Blood Urea Nitrogen 90 mg/dL (9-20); Hemolysis Index 4
[2021-06-20 14:35] LABS: Calcium 5.3 mg/dL (8.4-10.2)
[2021-06-20 14:36] LABS: Amorphous Crystals,Urine 3+; Bacteria,Urine 4+ /HPF (Negative); Bilirubin,Urine NEG (Negative); Blood,Urine MOD (Negative); Color,Urine Amber (Yellow); Granular Casts,Urine 90 /LPF; Mucus,Urine FEW /HPF; Sperm,Urine FEW /HPF (NP); Urobilinogen,Urine < 2.0 mg/dL (<2.0)
[2021-06-20] MEDS ORDERED: CALCIUM GLUCONATE 1,000 MG in SODIUM CHLORIDE 0.9% 100 ML IV SCH (15:15)
--- NOTE | 2021-06-20 15:19 | Gastroenterology Progress Note ---
Assessment and Plan GI: pt w/o signs active bleeding - hh/ stable, follow and transfuse as needed - continue PPI iv - no plans to scope - will signs off, call if needed Subjective Date of service: 06/20/21 Principal diagnosis: Acute hypoxemic resp failure; Pneumonia; PUI COVID-19 infection Interval history: - no signs GI bleeding overnight Objective - Constitutional Vitals: Temp Pulse Resp BP Pulse Ox 98.6 F 138 H 19 147/75 100 06/20/21 12:59 06/20/21 14:15 06/20/21 14:15 06/20/21 14:15 06/20/21 14:15 General appearance: no acute distress - EENT Eyes: PERRL - Respiratory Respiratory: bilateral: rhonchi - Cardiovascular Rhythm: regular Heart Sounds: Present: S1 & S2 - Gastrointestinal General gastrointestinal: Present: soft, non-tender, non-distended - Labs CBC & Chem 7: 06/20/21 05:00 06/20/21 13:54 Labs: Laboratory Results - last 24 hr 06/18/21 06/19/21 06/19/21 11:24 16:15 16:20 WBC RBC Hgb Hct MCV MCH MCHC RDW Plt Count ABG pH POC ABG pCO2 POC ABG pO2 POC ABG HCO3 ABG O2 Saturation POC ABG Base Excess ABG Hemoglobin ABG Oxyhemoglobin ABG Methemoglobin ABG Sodium ABG Potassium ABG Chloride ABG Glucose Carboxyhemoglobin FiO2 % Sodium Potassium Chloride Carbon Dioxide Anion Gap BUN Creatinine Estimated GFR BUN/Creatinine Ratio Glucose POC Glucose Lactic Acid 1.00 Calcium Total Bilirubin AST ALT Alkaline Phosphatase Troponin T C-Reactive Protein 11.50 H Total Protein Albumin Albumin/Globulin Ratio Arterial Blood Glucose Urine Color Urine Turbidity Urine pH Ur Specific Dickinson Urine Protein Urine Glucose (UA) Urine Ketones Urine Blood Urine Nitrite Urine Bilirubin Urine Urobilinogen Ur Leukocyte Esterase Urine WBC (Auto) Urine RBC (Auto) Urine Bacteria (Auto) Urine WBC Clumps Amorphous Crystals Granular Casts Urine Mucus Urine Sperm Urine Eosinophils None seen 06/19/21 06/19/21 06/20/21 18:05 22:40 05:00 WBC 4.1 L RBC 2.66 L Hgb 7.3 L Hct 22.5 L MCV 85 MCH 28 MCHC 33 RDW 16.9 H Plt Count 60 L ABG pH POC ABG pCO2 POC ABG pO2 POC ABG HCO3 ABG O2 Saturation POC ABG Base Excess ABG Hemoglobin ABG Oxyhemoglobin ABG Methemoglobin ABG Sodium ABG Potassium ABG Chloride ABG Glucose Carboxyhemoglobin FiO2 % Sodium Potassium Chloride Carbon Dioxide Anion Gap BUN Creatinine Estimated GFR BUN/Creatinine Ratio Glucose POC Glucose 131 H 121 H Lactic Acid Calcium Total Bilirubin AST ALT Alkaline Phosphatase Troponin T C-Reactive Protein Total Protein Albumin Albumin/Globulin Ratio Arterial Blood Glucose Urine Color Urine Turbidity Urine pH Ur Specific Dickinson Urine Protein Urine Glucose (UA) Urine Ketones Urine Blood Urine Nitrite Urine Bilirubin Urine Urobilinogen Ur Leukocyte Esterase Urine WBC (Auto) Urine RBC (Auto) Urine Bacteria (Auto) Urine WBC Clumps Amorphous Crystals Granular Casts Urine Mucus Urine Sperm Urine Eosinophils 06/20/21 06/20/21 06/20/21 05:00 05:00 05:17 WBC RBC Hgb Hct MCV MCH MCHC RDW Plt Count ABG pH POC ABG pCO2 POC ABG pO2 POC ABG HCO3 ABG O2 Saturation POC ABG Base Excess ABG Hemoglobin ABG Oxyhemoglobin ABG Methemoglobin ABG Sodium ABG Potassium ABG Chloride ABG Glucose Carboxyhemoglobin FiO2 % Sodium 145 Potassium 4.3 Chloride 111.6 H Carbon Dioxide 20 L Anion Gap 18 BUN 108 H Creatinine 4.3 H Estimated GFR 17 BUN/Creatinine Ratio 25 Glucose 152 H POC Glucose 137 H Lactic Acid Calcium 7.1 L Total Bilirubin AST ALT Alkaline Phosphatase Troponin T 0.105 H* C-Reactive Protein Total Protein Albumin Albumin/Globulin Ratio Arterial Blood Glucose Urine Color Urine Turbidity Urine pH Ur Specific Dickinson Urine Protein Urine Glucose (UA) Urine Ketones Urine Blood Urine Nitrite Urine Bilirubin Urine Urobilinogen Ur Leukocyte Esterase Urine WBC (Auto) Urine RBC (Auto) Urine Bacteria (Auto) Urine WBC Clumps Amorphous Crystals Granular Casts Urine Mucus Urine Sperm Urine Eosinophils 06/20/21 06/20/21 06/20/21 11:40 12:35 13:26 WBC RBC Hgb Hct MCV MCH MCHC RDW Plt Count ABG pH 6.994 L POC ABG pCO2 70.2 H POC ABG pO2 101.2 POC ABG HCO3 16.7 ABG O2 Saturation 95.3 POC ABG Base Excess -14.1 ABG Hemoglobin 8.1 L ABG Oxyhemoglobin 94 ABG Methemoglobin 0.2 ABG Sodium 142.4 ABG Potassium 4.3 ABG Chloride 111.0 H ABG Glucose 207 H Carboxyhemoglobin 1.2 FiO2 % 100 Sodium Potassium Chloride Carbon Dioxide Anion Gap BUN Creatinine Estimated GFR BUN/Creatinine Ratio Glucose POC Glucose 186 H Lactic Acid Calcium Total Bilirubin AST ALT Alkaline Phosphatase Troponin T C-Reactive Protein Total Protein Albumin Albumin/Globulin Ratio Arterial Blood Glucose 207 H Urine Color Eli Urine Turbidity Cloudy Urine pH 5.0 Ur Specific Dickinson 1.016 Urine Protein 100 mg/dl Urine Glucose (UA) 50 Urine Ketones Neg Urine Blood Mod Urine Nitrite Neg Urine Bilirubin Neg Urine Urobilinogen < 2.0 Ur Leukocyte Esterase Neg Urine WBC (Auto) 46.0 H Urine RBC (Auto) 74.0 Urine Bacteria (Auto) 4+ Urine WBC Clumps Few Amorphous Crystals 3+ Granular Casts 90 Urine Mucus Few Urine Sperm Few Urine Eosinophils 06/20/21 13:54 WBC RBC Hgb Hct MCV MCH MCHC RDW Plt Count ABG pH POC ABG pCO2 POC ABG pO2 POC ABG HCO3 ABG O2 Saturation POC ABG Base Excess ABG Hemoglobin ABG Oxyhemoglobin ABG Methemoglobin ABG Sodium ABG Potassium ABG Chloride ABG Glucose Carboxyhemoglobin FiO2 % Sodium 147 H Potassium 3.0 L D Chloride 99.9 Carbon Dioxide 33 H D Anion Gap 17 BUN 90 H Creatinine 3.3 H Estimated GFR 24 BUN/Creatinine Ratio 27 Glucose 771 H* POC Glucose Lactic Acid Calcium 5.3 L* D Total Bilirubin < 0.20 AST 41 H ALT 11 Alkaline Phosphatase 93 Troponin T C-Reactive Protein Total Protein 3.5 L D Albumin 1.0 L Albumin/Globulin Ratio 0.4 Arterial Blood Glucose Urine Color Urine Turbidity Urine pH Ur Specific Dickinson Urine Protein Urine Glucose (UA) Urine Ketones Urine Blood Urine Nitrite Urine Bilirubin Urine Urobilinogen Ur Leukocyte Esterase Urine WBC (Auto) Urine RBC (Auto) Urine Bacteria (Auto) Urine WBC Clumps Amorphous Crystals Granular Casts Urine Mucus Urine Sperm Urine Eosinophils
[2021-06-20 15:42] LABS: Hemoglobin 6.1 gm/dl (11.8-15.2); Red Blood Count 2.26 M/mm3 (3.65-5.03)
[2021-06-20 15:43] LABS: Mean Corpuscular HGB Conc 32 % (32-34); Mean Corpuscular Volume 85 fl (84-94); Platelet Count 65 K/mm3 (140-440); Red Cell Distribution Width 17.6 % (13.2-15.2)
--- NOTE | 2021-06-20 15:53 | Consultation ---
History of Present Illness Consult date: 06/19/21 Reason for consult: chest tube - History of present illness History of present illness: 56 yo male who coded this am. Dx'd with left PTX. Heimlich tube inserted with only mild improvement in PTX. Past History Past Medical History: stroke, other (COVID-19) Past Surgical History: denies: CABG, PTCA Social history: smoking (current daily smoker). denies: alcohol abuse Family history: no significant family history Medications and Allergies Allergies Allergy/AdvReac Type Severity Reaction Status Date / Time No Known Allergies Allergy Unverified 02/12/17 15:47 Home Medications Medication Instructions Recorded Confirmed Last Taken Type No Known Home Medications [No 05/31/21 05/31/21 Unknown History Reported Home Medications] Active Meds: Active Medications Acetaminophen (Acetaminophen 325 Mg/10.15 Ml Oral Liqd Unit Dose) 650 mg FEEDTUBE Q6H PRN PRN Reason: Pain MILD(1-3)/Fever >100.5/LUCAS Last Admin: 06/19/21 12:15 Dose: 650 mg Documented by: Albuterol/Ipratropium (Ipratropium/Albuterol Sulfate 3 Ml Ampul.Neb) 1 ampul IH TIDRT [facility] Last Admin: 06/20/21 02:42 Dose: Not Given Documented by: Lipase/Protease/Amylase (Lipase 10,500/Protease 25,000/Amylase 43,750 (Units) Dr Cap) 1 each FEEDTUBE PRN PRN PRN Reason: For Clogged Feeding Tube Famotidine (Famotidine 20 Mg/2 Ml Inj) 10 mg IV BID [facility] Last Admin: 06/20/21 09:27 Dose: 10 mg Documented by: Fentanyl (Fentanyl 100 Mcg/2 Ml Inj) 50 mcg IV Q10MIN PRN PRN Reason: ANALGESIA Hydrophilic Ointment (Lip Therapy Vaseline) 1 applic TP Q2HR PRN PRN Reason: Dry Lips Metronidazole (Flagyl 500 Mg/100 Ml) 500 mg in 100 mls @ 100 mls/hr IV Q8H [facility]; Protocol Stop: 06/29/21 05:59 Last Infusion: 06/20/21 08:05 Dose: Infused Documented by: Fentanyl Citrate (Fentanyl Drip Premix) 2,000 mcg in 100 mls @ 3.725 mls/hr IV TITR [facility]; Protocol Last Admin: 06/20/21 07:00 Dose: 2 mcg/kg/hr, 7.45 mls/hr Documented by: NORepinephrine/NS 8 MG-250 ML (Norepinephrine/Ns 8 Mg-250 Ml (Double Conc)) 8 mg in 250 mls @ 3.75 mls/hr IV TITRATE [facility]; Protocol Last Admin: 06/20/21 12:38 Dose: 20 mcg/min, 37.5 mls/hr Documented by: Cefepime HCl (Cefepime/Ns 2 Gm/100 Ml) 2 gm in 100 mls @ 200 mls/hr IV Q24H [facility]; Protocol Stop: 06/29/21 06:29 Last Infusion: 06/20/21 08:05 Dose: Infused Documented by: Sodium Chloride (Nacl 0.9% 1000 Ml) 1,000 mls @ 50 mls/hr IV DIRECT [facility] Sodium Bicarbonate 150 meq/ (Dextrose) 1,150 mls @ 125 mls/hr IV DIRECT [facility] Last Admin: 06/20/21 12:36 Dose: 125 mls/hr Documented by: Propofol (Diprivan 10 Mg/Ml) 1,000 mg in 100 mls @ 2.226 mls/hr IV TITR [facility]; Protocol Last Admin: 06/20/21 14:36 Dose: 5 mcg/kg/min, 2.226 mls/hr Documented by: Sodium Chloride (Nacl 0.9%) 100 mls @ 999 mls/hr IV KAVITA PRN PRN Reason: Hypotension Calcium Gluconate 1,000 mg/ (Sodium Chloride) 110 mls @ 660 mls/hr IV ONCE@1515 [facility] Stop: 06/20/21 19:15 Last Admin: 06/20/21 15:22 Dose: 660 mls/hr Documented by: Morphine Sulfate (Morphine 2 Mg/1 Ml Inj) 2 mg IV Q4H PRN PRN Reason: Pain, Moderate (4-6) Last Admin: 06/17/21 10:01 Dose: 2 mg Documented by: Multi-Ingred Cream/Lotion/Oil/Oint (Mineral Oil/Petrolatum, White Ophth Oint 3.5 Gm) 1 applic OU Q4HR PRN PRN Reason: Dry Eye(s) Ondansetron HCl (Ondansetron 4 Mg/2 Ml Inj) 4 mg IV Q4H PRN PRN Reason: Nausea And Vomiting Last Admin: 06/09/21 22:05 Dose: 4 mg Documented by: Senna/Docusate Sodium (Sennosides/Docusate Sodium 8.6/50 Mg Tab) 1 tab FEEDTUBE BID [facility] Last Admin: 06/20/21 10:09 Dose: 1 tab Documented by: Simple Syrup (Simple Syrup 15 Ml) 15 ml FEEDTUBE PRN PRN PRN Reason: Hypoglycemia Simple Syrup (Simple Syrup 15 Ml) 30 ml FEEDTUBE PRN PRN PRN Reason: Hypoglycemia Sodium Bicarbonate (Sodium Bicarbonate 325 Mg Tab) 325 mg FEEDTUBE PRN PRN PRN Reason: For Clogged Feeding Tube Sodium Chloride (Sodium Chloride 0.9% 10 Ml Flush Syringe) 10 ml IV PRN PRN PRN Reason: LINE FLUSH Last Admin: 06/20/21 09:27 Dose: 10 ml Documented by: Review of Systems ROS unobtainable: due to endotracheal tube Exam Vital Signs Temp Pulse Resp BP Pulse Ox 97.9 F 132 H 24 156/92 99 05/23/21 18:36 05/23/21 18:36 05/23/21 18:36 05/23/21 18:36 05/23/21 18:36 - General physical appearance Positive: well developed, well nourished, no distress - ENT Positive: normal pinna, normal nares, normal mucosa, no hearing loss, no congestion - Neck Positive: no masses, no bruits, trachea midline, no venous distension - Respiratory Positive: normal expansion, normal respiratory effort, clear to auscultation - Cardiovascular Rhythm: regular Heart Sounds: Present: S1 & S2. Absent: rub, click - Extremities Extremities: no ischemia, pulses symmetrical, No edema - Breasts Breasts: normal, no mass, no skin changes - Abdomen Abdomen: Present: soft, bowel sounds normal. Absent: tender, distended Hernia: none - Genitourinary Male Genitourinary: normal Female Genitourinary: normal - Integumentary no rash, no growths, no abnormal pigmentation Results - Labs 06/20/21 05:00 06/20/21 13:54 Abnormal lab results 06/19/21 06/19/21 06/19/21 Range/Units 16:15 18:05 22:40 WBC (4.5-11.0) K/mm3 RBC (3.65-5.03) M/mm3 Hgb (11.8-15.2) gm/dl Hct (35.5-45.6) % RDW (13.2-15.2) % Plt Count (140-440) K/mm3 ABG pH (7.320-7.450) POC ABG pCO2 (32.0-48.0) mmHg ABG Hemoglobin (12.0-17.5) ABG Chloride (98-107) mmol/L ABG Glucose (65-95) mg/dL Sodium (137-145) mmol/L Potassium (3.6-5.0) mmol/L Chloride (98-107) mmol/L Carbon Dioxide (22-30) mmol/L BUN (9-20) mg/dL Creatinine (0.8-1.3) mg/dL Glucose (75-100) mg/dL POC Glucose 131 H 121 H (70-105) mg/dL Calcium (8.4-10.2) mg/dL AST (5-40) units/L Troponin T (0.00-0.029) ng/mL C-Reactive Protein 11.50 H (0.00-1.30) mg/dL Total Protein (6.3-8.2) g/dL Albumin (3.9-5) g/dL Arterial Blood Glucose (65-95) mg/dL Urine WBC (Auto) (0.0-6.0) /HPF 06/20/21 06/20/21 06/20/21 Range/Units 05:00 05:00 05:00 WBC 4.1 L (4.5-11.0) K/mm3 RBC 2.66 L (3.65-5.03) M/mm3 Hgb 7.3 L (11.8-15.2) gm/dl Hct 22.5 L (35.5-45.6) % RDW 16.9 H (13.2-15.2) % Plt Count 60 L (140-440) K/mm3 ABG pH (7.320-7.450) POC ABG pCO2 (32.0-48.0) mmHg ABG Hemoglobin (12.0-17.5) ABG Chloride (98-107) mmol/L ABG Glucose (65-95) mg/dL Sodium (137-145) mmol/L Potassium (3.6-5.0) mmol/L Chloride 111.6 H (98-107) mmol/L Carbon Dioxide 20 L (22-30) mmol/L BUN 108 H (9-20) mg/dL Creatinine 4.3 H (0.8-1.3) mg/dL Glucose 152 H (75-100) mg/dL POC Glucose (70-105) mg/dL Calcium 7.1 L (8.4-10.2) mg/dL AST (5-40) units/L Troponin T 0.105 H* (0.00-0.029) ng/mL C-Reactive Protein (0.00-1.30) mg/dL Total Protein (6.3-8.2) g/dL Albumin (3.9-5) g/dL Arterial Blood Glucose (65-95) mg/dL Urine WBC (Auto) (0.0-6.0) /HPF 06/20/21 06/20/21 06/20/21 Range/Units 05:17 11:40 12:35 WBC (4.5-11.0) K/mm3 RBC (3.65-5.03) M/mm3 Hgb (11.8-15.2) gm/dl Hct (35.5-45.6) % RDW (13.2-15.2) % Plt Count (140-440) K/mm3 ABG pH 6.994 L (7.320-7.450) POC ABG pCO2 70.2 H (32.0-48.0) mmHg ABG Hemoglobin 8.1 L (12.0-17.5) ABG Chloride 111.0 H (98-107) mmol/L ABG Glucose 207 H (65-95) mg/dL Sodium (137-145) mmol/L Potassium (3.6-5.0) mmol/L Chloride (98-107) mmol/L Carbon Dioxide (22-30) mmol/L BUN (9-20) mg/dL Creatinine (0.8-1.3) mg/dL Glucose (75-100) mg/dL POC Glucose 137 H (70-105) mg/dL Calcium (8.4-10.2) mg/dL AST (5-40) units/L Troponin T (0.00-0.029) ng/mL C-Reactive Protein (0.00-1.30) mg/dL Total Protein (6.3-8.2) g/dL Albumin (3.9-5) g/dL Arterial Blood Glucose 207 H (65-95) mg/dL Urine WBC (Auto) 46.0 H (0.0-6.0) /HPF 06/20/21 06/20/21 Range/Units 13:26 13:54 WBC (4.5-11.0) K/mm3 RBC (3.65-5.03) M/mm3 Hgb (11.8-15.2) gm/dl Hct (35.5-45.6) % RDW (13.2-15.2) % Plt Count (140-440) K/mm3 ABG pH (7.320-7.450) POC ABG pCO2 (32.0-48.0) mmHg ABG Hemoglobin (12.0-17.5) ABG Chloride (98-107) mmol/L ABG Glucose (65-95) mg/dL Sodium 147 H (137-145) mmol/L Potassium 3.0 L D (3.6-5.0) mmol/L Chloride (98-107) mmol/L Carbon Dioxide 33 H D (22-30) mmol/L BUN 90 H (9-20) mg/dL Creatinine 3.3 H (0.8-1.3) mg/dL Glucose 771 H* (75-100) mg/dL POC Glucose 186 H (70-105) mg/dL Calcium 5.3 L* D (8.4-10.2) mg/dL AST 41 H (5-40) units/L Troponin T (0.00-0.029) ng/mL C-Reactive Protein (0.00-1.30) mg/dL Total Protein 3.5 L D (6.3-8.2) g/dL Albumin 1.0 L (3.9-5) g/dL Arterial Blood Glucose (65-95) mg/dL Urine WBC (Auto) (0.0-6.0) /HPF Diabetes panel 06/20/21 06/20/21 Range/Units 05:00 13:54 Sodium 145 147 H (137-145) mmol/L Potassium 4.3 3.0 L D (3.6-5.0) mmol/L Chloride 111.6 H 99.9 (98-107) mmol/L Carbon Dioxide 20 L 33 H D (22-30) mmol/L BUN 108 H 90 H (9-20) mg/dL Creatinine 4.3 H 3.3 H (0.8-1.3) mg/dL Glucose 152 H 771 H* (75-100) mg/dL Calcium 7.1 L 5.3 L* D (8.4-10.2) mg/dL AST 41 H (5-40) units/L ALT 11 (7-56) units/L Alkaline Phosphatase 93 (35-129) units/L Total Protein 3.5 L D (6.3-8.2) g/dL Albumin 1.0 L (3.9-5) g/dL Calcium panel 06/20/21 06/20/21 Range/Units 05:00 13:54 Calcium 7.1 L 5.3 L* D (8.4-10.2) mg/dL Albumin 1.0 L (3.9-5) g/dL Pituitary panel 06/20/21 06/20/21 Range/Units 05:00 13:54 Sodium 145 147 H (137-145) mmol/L Potassium 4.3 3.0 L D (3.6-5.0) mmol/L Chloride 111.6 H 99.9 (98-107) mmol/L Carbon Dioxide 20 L 33 H D (22-30) mmol/L BUN 108 H 90 H (9-20) mg/dL Creatinine 4.3 H 3.3 H (0.8-1.3) mg/dL Glucose 152 H 771 H* (75-100) mg/dL Calcium 7.1 L 5.3 L* D (8.4-10.2) mg/dL Adrenal panel 06/20/21 06/20/21 Range/Units 05:00 13:54 Sodium 145 147 H (137-145) mmol/L Potassium 4.3 3.0 L D (3.6-5.0) mmol/L Chloride 111.6 H 99.9 (98-107) mmol/L Carbon Dioxide 20 L 33 H D (22-30) mmol/L BUN 108 H 90 H (9-20) mg/dL Creatinine 4.3 H 3.3 H (0.8-1.3) mg/dL Glucose 152 H 771 H* (75-100) mg/dL Calcium 7.1 L 5.3 L* D (8.4-10.2) mg/dL Total Bilirubin < 0.20 (0.1-1.2) mg/dL AST 41 H (5-40) units/L ALT 11 (7-56) units/L Alkaline Phosphatase 93 (35-129) units/L Total Protein 3.5 L D (6.3-8.2) g/dL Albumin 1.0 L (3.9-5) g/dL - Imaging Chest x-ray: report reviewed, image reviewed Assessment and Plan - Patient Problems (1) Pneumothorax, left Current Visit: Yes Status: Acute Plan to address problem: 1) Chest tube placement
--- NOTE | 2021-06-20 15:54 | Procedure Note ---
Date of procedure: 06/20/21 Pre-op diagnosis: Left pneumothorax Post-op diagnosis: same Procedure: Left chest tube placement- 24 [place] Description of procedure: Pt was supine on his bed. Left chest was prepped and draped. A small incision was made in the anterior axillary line at the level of the nipple. SQ tissue and intercostal space was divided with a Nancy clamp and the left pleural cavity entered. A 24 [place] chest tube was inserted into the left pleural space. The chest tube was secured to the skin with a suture of 0- silk. Chest tube was connected to the Pleur-Evac. A vaseline gauze was placed about the chest tube exit site. This was followed by dry 4 X 4's and an occlusive silk tape dressing. Pt tolerated the procedure well. Subsequent CXR revealed the chest tube to be in good position with improvement in the pt's left ptx. Anesthesia: none Surgeon: YUSUF LEMONS Estimated blood loss: minimal Pathology: none Condition: stable Disposition: no change
[2021-06-20 15:58] LABS: Hematocrit 19.6 % (35.5-45.6)
--- NOTE | 2021-06-20 16:05 | Progress Note ---
Assessment and Plan Cultures: SARS CoV2 PCR: Positive as outpatient. Negative here x 2 05/23/2021 blood culture: no growth 05/29/2021 blood culture no growth 05/30/2021 blood culture no growth 05/30/2021 urine culture [place] 05/31/2021 blood culture no growth 06/03/2021 blood culture no growth today A/P: 55/M with initially seen on 05/23/2021 due to bilateral pneumonia with positive Covid test outpatient but negative x2 inpatient noted with new fever and repeat CT chest shows bilateral basilar pneumonia with cavitation: #Sepsis: No fever since 06/04/2021. Likely secondary to bilateral pneumonia. #Bilateral pneumonia with cavitation: ? secondary to COVID-19, tested positive as outpatient, but negative here x 2. During the last week noted elevated procalcitonin from 0.3-->24 in the setting of resolving ANGELES. Also noted CRP from 5.2-->19. CT abdomen shows severe aspiration type pneumonia in both bases with a currently 30 lesion of 20 cm on the left lower lobe. #Acute hypoxic respiratory failure: On BiPAP. Likely due to pneumonia. VQ scan low probability for PE. #Recent ileus: Resolved. #Acute renal failure: Nephrology on board. Improving. #Hypernatremia: Per primary team/ renal improving #Tachycardia #Elevated ddimer: VQ low prob for PE Recs: -Taper off of steroid -Start cefepime and metronidazole. Plan to complete 3 weeks therapy, however poor prognosis given recent PEA arrest Dayan Ferguson MD [facility] O: [phone] F: [phone] Subjective Date of service: 06/20/21 Principal diagnosis: Acute hypoxemic resp failure; Pneumonia; PUI COVID-19 infection Interval history: Afebrile, normal white count. Patient had PEA arrest, was resuscitated. Family plans to continue full CODE STATUS. Had pneumothorax which required chest tube placement. Objective - Exam Narrative Exam: General appearance: Intubated, sedated Eyes: anicteric sclerae, moist conjunctivae; no lid-lag; PERRLA HENT: Normocephalic, Atraumatic; normal external ears, nares open, oropharynx limited Neck: supple, tracheal midline, no JVD Lungs: Rhonchi, left-sided chest tube CV: RRR no murmur Abdomen: Soft, non-tender; no masses or hepatosplenomegaly Extremities: no edema, no cyanosis Skin: No rash. Psych: not agitated Neuro: Sedated - Constitutional Vitals: Vital Signs Temp Pulse Resp BP Pulse Ox 98.6 F 138 H 19 147/75 100 06/20/21 12:59 06/20/21 14:15 06/20/21 14:15 06/20/21 14:15 06/20/21 14:15 Temperature -Last 24 Hours Temperature 98.6 F Temperature 97.7 F Temperature 97.8 F Temperature 99.3 F Temperature 99.3 F Temperature 98.9 F - Labs CBC & Chem 7: 06/20/21 13:54 06/20/21 13:54 Labs: Abnormal lab results 06/19/21 06/19/21 06/19/21 Range/Units 16:15 18:05 22:40 WBC (4.5-11.0) K/mm3 RBC (3.65-5.03) M/mm3 Hgb (11.8-15.2) gm/dl Hct (35.5-45.6) % MCH (28-32) pg RDW (13.2-15.2) % Plt Count (140-440) K/mm3 ABG pH (7.320-7.450) POC ABG pCO2 (32.0-48.0) mmHg ABG Hemoglobin (12.0-17.5) ABG Chloride (98-107) mmol/L ABG Glucose (65-95) mg/dL Sodium (137-145) mmol/L Potassium (3.6-5.0) mmol/L Chloride (98-107) mmol/L Carbon Dioxide (22-30) mmol/L BUN (9-20) mg/dL Creatinine (0.8-1.3) mg/dL Glucose (75-100) mg/dL POC Glucose 131 H 121 H (70-105) mg/dL Calcium (8.4-10.2) mg/dL AST (5-40) units/L Troponin T (0.00-0.029) ng/mL C-Reactive Protein 11.50 H (0.00-1.30) mg/dL Total Protein (6.3-8.2) g/dL Albumin (3.9-5) g/dL Arterial Blood Glucose (65-95) mg/dL Urine WBC (Auto) (0.0-6.0) /HPF 06/20/21 06/20/21 06/20/21 Range/Units 05:00 05:00 05:00 WBC 4.1 L (4.5-11.0) K/mm3 RBC 2.66 L (3.65-5.03) M/mm3 Hgb 7.3 L (11.8-15.2) gm/dl Hct 22.5 L (35.5-45.6) % MCH (28-32) pg RDW 16.9 H (13.2-15.2) % Plt Count 60 L (140-440) K/mm3 ABG pH (7.320-7.450) POC ABG pCO2 (32.0-48.0) mmHg ABG Hemoglobin (12.0-17.5) ABG Chloride (98-107) mmol/L ABG Glucose (65-95) mg/dL Sodium (137-145) mmol/L Potassium (3.6-5.0) mmol/L Chloride 111.6 H (98-107) mmol/L Carbon Dioxide 20 L (22-30) mmol/L BUN 108 H (9-20) mg/dL Creatinine 4.3 H (0.8-1.3) mg/dL Glucose 152 H (75-100) mg/dL POC Glucose (70-105) mg/dL Calcium 7.1 L (8.4-10.2) mg/dL AST (5-40) units/L Troponin T 0.105 H* (0.00-0.029) ng/mL C-Reactive Protein (0.00-1.30) mg/dL Total Protein (6.3-8.2) g/dL Albumin (3.9-5) g/dL Arterial Blood Glucose (65-95) mg/dL Urine WBC (Auto) (0.0-6.0) /HPF 06/20/21 06/20/21 06/20/21 Range/Units 05:17 11:40 12:35 WBC (4.5-11.0) K/mm3 RBC (3.65-5.03) M/mm3 Hgb (11.8-15.2) gm/dl Hct (35.5-45.6) % MCH (28-32) pg RDW (13.2-15.2) % Plt Count (140-440) K/mm3 ABG pH 6.994 L (7.320-7.450) POC ABG pCO2 70.2 H (32.0-48.0) mmHg ABG Hemoglobin 8.1 L (12.0-17.5) ABG Chloride 111.0 H (98-107) mmol/L ABG Glucose 207 H (65-95) mg/dL Sodium (137-145) mmol/L Potassium (3.6-5.0) mmol/L Chloride (98-107) mmol/L Carbon Dioxide (22-30) mmol/L BUN (9-20) mg/dL Creatinine (0.8-1.3) mg/dL Glucose (75-100) mg/dL POC Glucose 137 H (70-105) mg/dL Calcium (8.4-10.2) mg/dL AST (5-40) units/L Troponin T (0.00-0.029) ng/mL C-Reactive Protein (0.00-1.30) mg/dL Total Protein (6.3-8.2) g/dL Albumin (3.9-5) g/dL Arterial Blood Glucose 207 H (65-95) mg/dL Urine WBC (Auto) 46.0 H (0.0-6.0) /HPF 06/20/21 06/20/21 06/20/21 Range/Units 13:26 13:54 13:54 WBC (4.5-11.0) K/mm3 RBC 2.26 L (3.65-5.03) M/mm3 Hgb 6.1 L (11.8-15.2) gm/dl Hct 19.6 L* (35.5-45.6) % MCH 27 L (28-32) pg RDW 17.6 H (13.2-15.2) % Plt Count 65 L (140-440) K/mm3 ABG pH (7.320-7.450) POC ABG pCO2 (32.0-48.0) mmHg ABG Hemoglobin (12.0-17.5) ABG Chloride (98-107) mmol/L ABG Glucose (65-95) mg/dL Sodium 147 H (137-145) mmol/L Potassium 3.0 L D (3.6-5.0) mmol/L Chloride (98-107) mmol/L Carbon Dioxide 33 H D (22-30) mmol/L BUN 90 H (9-20) mg/dL Creatinine 3.3 H (0.8-1.3) mg/dL Glucose 771 H* (75-100) mg/dL POC Glucose 186 H (70-105) mg/dL Calcium 5.3 L* D (8.4-10.2) mg/dL AST 41 H (5-40) units/L Troponin T (0.00-0.029) ng/mL C-Reactive Protein (0.00-1.30) mg/dL Total Protein 3.5 L D (6.3-8.2) g/dL Albumin 1.0 L (3.9-5) g/dL Arterial Blood Glucose (65-95) mg/dL Urine WBC (Auto) (0.0-6.0) /HPF
--- NOTE | 2021-06-20 16:15 | XRay Report ---
CHEST 1 VIEW 06/20/2021 2:49 PM INDICATION / CLINICAL INFORMATION: chest tube placement verification. COMPARISON: 06/20/2021, 1203 hours FINDINGS: SUPPORT DEVICES: PICC line, endotracheal tube and nasogastric tube appear unchanged. There has been i nterval placement of a left chest tube and removal of the pleural catheter on the left. HEART / MEDIASTINUM: There is pneumomediastinum LUNGS / PLEURA: Diffuse airspace opacities persist. The lungs appear similar to study performed earli today. Left pneumothorax persists but is reduced in size following placement of chest tube. ADDITIONAL FINDINGS: There is increased subcutaneous air on the left. IMPRESSION: 1. Left-sided chest tube has been placed with reduction in size in the left pneumothorax. 2. There is increased subcutaneous air. 3. There is pneumomediastinum which appears unchanged. 4. Diffuse airspace opacities persist. Signer Name: Aidan Nieves MD Signed: 06/20/2021 4:10 PM Workstation Name: [id number]
--- NOTE | 2021-06-20 17:30 | Procedure Note ---
Date of procedure: 06/20/21 Pre-op diagnosis: Metabolic Acidosis Post-op diagnosis: same Procedure: Patient was evaluated and required temporary VasCath placement for Hemodialysis. Telephone consent was obtained from patient's son, Ben Sanabria A time-out was completed verifying correct patient, procedure, site, and positioning. Hand hygiene were performed immediately prior to the procedure and sterile technique was used throughout the procedure. The patients right groin was prepped with iodine and chlorhexidine scrub then draped in a sterile fashion. 1% Lidocaine was used to anesthetize the surrounding skin area. Then the right femoral vein was accessed using ultrasound guidance and a 20cm trialysis catheter was introduced using the Seldinger technique. The catheter threaded smoothly over the guidewire and advanced easily into the vein and brisk blood return was observed from each lumen. Each lumen were flushed and clamped, then the catheter was sutured in place and covered with a sterile dressing. Patient tolerated the procedure well, no signs of any adverse reaction noted Total Time Spent with Patient (Minutes): 40 minutes Anesthesia: local Surgeon: LISA CASTANEDA (In conjunction with Dr. Ayoub) Estimated blood loss: minimal Disposition: ICU
[2021-06-20 18:17] LABS: ABG Base Excess -2.3 mmol/L (-2.0-3.0); ABG HCO3 26.1 mmol/L (20.0-26.0); ABG Methemoglobin 0.7 % (0.0-1.5); ABG Oxygen Saturation 99.1 % (95.0-99.0); ABG PCO2 70.2 mm Hg
[2021-06-20 18:25] LABS: ABG PH 7.189 pH Units (7.350-7.450)
[2021-06-20] MEDS ORDERED: SODIUM CHLORIDE 0.9% 500 ML 500 ML IV ONE (19:55)
[2021-06-21] MEDS ORDERED: SODIUM CHLORIDE 0.9% 50 ML ONE (00:43)
[2021-06-21] MEDS: NORepinephrine/NS 8 MG-250 ML 8 MG/250 ML INFUS..BTL IV SCH ×2 (03:39→16:00)
--- NOTE | 2021-06-21 04:05 | Consultation ---
DATE OF CONSULTATION: 06/19/2021 REFERRING PHYSICIAN: Dr. Stevie Ramsay. INDICATIONS: 1. Anemia. 2. Melena. HISTORY OF PRESENT ILLNESS: The patient is a 56-year-old black male who was diagnosed with COVID in 05/2021, presented and was admitted on 05/23/2021 when he presented with shortness of breath. The patient subsequently was intubated and since that time has been on the ventilator. The patient had been managed with multiple medical issues, which have occurred since that time. The patient is still intubated with pneumonia with multiple medical related issues. The patient was noted to be constipated and was given lactulose. Overnight, the patient had bouts of dark stools. The patient had been anemic. GI is consulted to ensure no active bleeding. No hematemesis per staff. No recent other signs of bleeding prior to this per staff. No history of GI bleed. No other specific complaints. PAST MEDICAL HISTORY: None. MEDICATIONS: Reviewed and updated in chart. ALLERGIES: No known drug allergies. SOCIAL HISTORY: Reported alcohol. No reported IV drug abuse. FAMILY HISTORY: Noncontributory. REVIEW OF SYSTEMS: Per chart and family. GENERAL: Weakness. HEENT: No reported visual changes. PULMONARY: Some shortness of breath. CARDIOVASCULAR: Denies chest pain. GASTROINTESTINAL: No complaints. All points of 10-point review of system were reviewed, otherwise prior to admission were negative. PHYSICAL EXAMINATION: VITAL SIGNS: Temperature of 98.7, pulse 70, respirations 18, blood pressure 115/70. GENERAL: Intubated, sedated, in no acute distress. HEENT: Pupils equal, round and reactive. PULMONARY: Rhonchi. CARDIOVASCULAR: Regular rate and rhythm. ABDOMEN: Soft. SKIN: No obvious rashes. LABORATORY DATA: Pertinent for white count of 5.2, hemoglobin and hematocrit of 7.9 and 24.4, platelet count of 64. Chem-7 pertinent for BUN and creatinine of 108 and 4.3. ASSESSMENT: A 56-year-old male who presented with COVID pneumonia and septic shock, now intubated, had been seen by GI because of reported dark stools after getting lactulose. The patient's hemoglobin and hematocrit for the most part have not changed. I doubt the patient has any active GI bleeding at this time and so we will manage conservatively. PLAN: 1. PPI IV b.i.d. 2. Follow hematocrit and transfuse as needed. 3. Occult stool pending. 4. No plans for scope or other invasive interventions. 5. We will follow for now. TID: [id number] RECEIPT: [id number] JEAN CLAUDE/MARY/PHILLIP CAT
[2021-06-21] MEDS: metroNIDAZOLE/NS 500 MG/100 ML 500 MG/100 ML BAG IV SCH ×2 (05:37→19:00)
[2021-06-21] MEDS: fentaNYL DRIP Premix 2,000 MCG/100 ML BAG IV SCH ×3 (05:38→18:54)
[2021-06-21] MEDS: CEFEPIME/NS 2 GM/100 ML 2 GM/100 ML BAG IV SCH (06:26)
[2021-06-21] MEDS: IPRATROPIUM/ALBUTEROL SULFATE 3 ML AMPUL.NEB IH SCH ×5 (07:43→19:32)
[2021-06-21 08:01] LABS: Hematocrit 25.6 % (35.5-45.6); Hemoglobin 8.7 gm/dl (11.8-15.2); Mean Corpuscular HGB Conc 34 % (32-34); Mean Corpuscular Volume 83 fl (84-94); Red Blood Count 3.08 M/mm3 (3.65-5.03); Red Cell Distribution Width 16.2 % (13.2-15.2)
[2021-06-21 08:06] LABS: Platelet Count 49 K/mm3 (140-440)
[2021-06-21 08:15] LABS: Calcium 7.4 mg/dL (8.4-10.2)
[2021-06-21 08:17] LABS: Alanine Aminotransferase 14 units/L (7-56); Albumin 1.3 g/dL (3.9-5); BUN/Creatinine Ratio 25; Blood Urea Nitrogen 84 mg/dL (9-20)
[2021-06-21 09:19] LABS: Calcium 7.6 mg/dL (8.4-10.2)
[2021-06-21] MEDS: SENNOSIDES/DOCUSATE SODIUM 8.6/50 MG TAB FEEDTUBE SCH ×2 (10:22→21:56)
[2021-06-21] MEDS: FAMOTIDINE 20 MG/2 ML INJ IV SCH ×2 (10:22→21:57)
--- NOTE | 2021-06-21 10:42 | Progress Note ---
Assessment and Plan - Patient Problems (1) Pneumothorax, left Current Visit: Yes Status: Acute Plan to address problem: 1) Nothing further to add. Will sign off. Subjective Date of service: 06/21/21 Patient Reports: Positive: no new complaints Objective Vital Signs - 12hr 06/20/21 06/20/21 06/20/21 22:45 23:00 23:16 Temperature Pulse Rate 111 H 114 H 107 H Pulse Rate [ Anterior Bilateral Throughout] Pulse Rate [ From Monitor] Respiratory 30 H 30 H 30 H Rate Respiratory Rate [Anterior Bilateral Throughout] Blood Pressure 130/68 108/63 140/72 O2 Sat by Pulse 84 85 84 Oximetry 06/20/21 06/20/21 06/20/21 23:25 23:30 23:45 Temperature Pulse Rate 112 H 108 H 108 H Pulse Rate [ Anterior Bilateral Throughout] Pulse Rate [ From Monitor] Respiratory 30 H 30 H Rate Respiratory Rate [Anterior Bilateral Throughout] Blood Pressure 108/63 128/70 135/71 O2 Sat by Pulse 94 87 84 Oximetry 06/20/21 06/21/21 06/21/21 23:46 00:00 00:16 Temperature 98.1 F Pulse Rate 108 H 108 H 106 H Pulse Rate [ Anterior Bilateral Throughout] Pulse Rate [ 108 H From Monitor] Respiratory 30 H 30 H 30 H Rate Respiratory Rate [Anterior Bilateral Throughout] Blood Pressure 135/71 134/69 144/73 O2 Sat by Pulse 86 100 84 Oximetry 06/21/21 06/21/21 06/21/21 00:30 00:45 01:00 Temperature Pulse Rate 108 H 108 H 108 H Pulse Rate [ Anterior Bilateral Throughout] Pulse Rate [ From Monitor] Respiratory 30 H 30 H 30 H Rate Respiratory Rate [Anterior Bilateral Throughout] Blood Pressure 129/65 136/68 139/72 O2 Sat by Pulse 82 L 94 91 Oximetry 06/21/21 06/21/21 06/21/21 01:10 01:15 01:23 Temperature 98.3 F 98.2 F Pulse Rate 106 H 107 H 108 H Pulse Rate [ Anterior Bilateral Throughout] Pulse Rate [ From Monitor] Respiratory 30 H 30 H 30 H Rate Respiratory Rate [Anterior Bilateral Throughout] Blood Pressure 144/72 140/70 142/70 O2 Sat by Pulse 88 78 L 85 Oximetry 06/21/21 06/21/21 06/21/21 01:30 01:46 01:56 Temperature 98.1 F Pulse Rate 109 H 105 H 104 H Pulse Rate [ Anterior Bilateral Throughout] Pulse Rate [ From Monitor] Respiratory 30 H 30 H 30 H Rate Respiratory Rate [Anterior Bilateral Throughout] Blood Pressure 142/68 155/75 151/70 O2 Sat by Pulse 93 98 86 Oximetry 06/21/21 06/21/21 06/21/21 02:00 02:16 02:25 Temperature 98.1 F Pulse Rate 106 H 102 H 103 H Pulse Rate [ Anterior Bilateral Throughout] Pulse Rate [ From Monitor] Respiratory 30 H 30 H 30 H Rate Respiratory Rate [Anterior Bilateral Throughout] Blood Pressure 146/72 159/77 158/73 O2 Sat by Pulse 98 98 100 Oximetry 06/21/21 06/21/21 06/21/21 02:30 02:46 02:55 Temperature 98.3 F Pulse Rate 104 H 99 H 102 H Pulse Rate [ Anterior Bilateral Throughout] Pulse Rate [ From Monitor] Respiratory 30 H 30 H 30 H Rate Respiratory Rate [Anterior Bilateral Throughout] Blood Pressure 156/74 167/78 168/78 O2 Sat by Pulse 98 100 100 Oximetry 06/21/21 06/21/21 06/21/21 03:00 03:16 03:23 Temperature 98.4 F Pulse Rate 100 H 102 H Pulse Rate [ Anterior Bilateral Throughout] Pulse Rate [ From Monitor] Respiratory 30 H 30 H Rate Respiratory Rate [Anterior Bilateral Throughout] Blood Pressure 166/77 166/78 O2 Sat by Pulse 98 97 Oximetry 06/21/21 06/21/21 06/21/21 03:25 03:30 03:46 Temperature 98.3 F Pulse Rate 103 H 102 H 102 H Pulse Rate [ Anterior Bilateral Throughout] Pulse Rate [ From Monitor] Respiratory 30 H 30 H 30 H Rate Respiratory Rate [Anterior Bilateral Throughout] Blood Pressure 168/78 168/78 160/80 O2 Sat by Pulse 100 100 97 Oximetry 06/21/21 06/21/21 06/21/21 03:55 04:00 04:16 Temperature 98.4 F Pulse Rate 94 H 96 H 97 H Pulse Rate [ Anterior Bilateral Throughout] Pulse Rate [ 96 H From Monitor] Respiratory 30 H 30 H 30 H Rate Respiratory Rate [Anterior Bilateral Throughout] Blood Pressure 177/83 182/83 177/80 O2 Sat by Pulse 97 97 Oximetry 06/21/21 06/21/21 06/21/21 04:20 04:30 04:46 Temperature Pulse Rate 97 H 99 H 102 H Pulse Rate [ Anterior Bilateral Throughout] Pulse Rate [ From Monitor] Respiratory 30 H 30 H Rate Respiratory Rate [Anterior Bilateral Throughout] Blood Pressure 177/80 173/76 163/76 O2 Sat by Pulse 100 97 97 Oximetry 06/21/21 06/21/21 06/21/21 05:00 05:16 05:30 Temperature Pulse Rate 103 H 105 H 107 H Pulse Rate [ Anterior Bilateral Throughout] Pulse Rate [ From Monitor] Respiratory 30 H 30 H 30 H Rate Respiratory Rate [Anterior Bilateral Throughout] Blood Pressure 164/74 169/77 161/74 O2 Sat by Pulse 97 97 100 Oximetry 06/21/21 06/21/21 06/21/21 05:46 06:00 06:16 Temperature Pulse Rate 105 H 104 H 107 H Pulse Rate [ Anterior Bilateral Throughout] Pulse Rate [ From Monitor] Respiratory 30 H 30 H 30 H Rate Respiratory Rate [Anterior Bilateral Throughout] Blood Pressure 169/77 166/76 160/76 O2 Sat by Pulse 96 97 96 Oximetry 06/21/21 06/21/21 06/21/21 06:30 06:46 07:00 Temperature 99.0 F Pulse Rate 106 H 106 H 105 H Pulse Rate [ Anterior Bilateral Throughout] Pulse Rate [ From Monitor] Respiratory 30 H 30 H 30 H Rate Respiratory Rate [Anterior Bilateral Throughout] Blood Pressure 165/76 160/73 164/75 O2 Sat by Pulse 100 100 100 Oximetry 06/21/21 06/21/21 06/21/21 07:16 07:30 07:45 Temperature Pulse Rate 106 H 106 H 112 H Pulse Rate [ 107 H Anterior Bilateral Throughout] Pulse Rate [ From Monitor] Respiratory 30 H 30 H Rate Respiratory 30 H Rate [Anterior Bilateral Throughout] Blood Pressure 160/73 168/76 165/69 O2 Sat by Pulse 96 99 96 Oximetry 06/21/21 06/21/21 06/21/21 07:46 08:00 08:08 Temperature Pulse Rate 108 H 111 H 112 H Pulse Rate [ Anterior Bilateral Throughout] Pulse Rate [ From Monitor] Respiratory 30 H 30 H Rate Respiratory Rate [Anterior Bilateral Throughout] Blood Pressure 154/71 165/69 O2 Sat by Pulse 97 93 Oximetry 06/21/21 06/21/21 06/21/21 08:16 08:30 08:36 Temperature Pulse Rate 113 H 118 H Pulse Rate [ Anterior Bilateral Throughout] Pulse Rate [ 122 H From Monitor] Respiratory 30 H 30 H 30 H Rate Respiratory Rate [Anterior Bilateral Throughout] Blood Pressure 162/72 159/68 O2 Sat by Pulse 93 94 97 Oximetry 06/21/21 06/21/21 06/21/21 08:46 09:00 09:16 Temperature Pulse Rate 124 H 125 H 124 H Pulse Rate [ Anterior Bilateral Throughout] Pulse Rate [ From Monitor] Respiratory 26 H 15 17 Rate Respiratory Rate [Anterior Bilateral Throughout] Blood Pressure 167/72 173/71 169/75 O2 Sat by Pulse 95 94 95 Oximetry 06/21/21 06/21/21 06/21/21 09:30 09:46 10:00 Temperature Pulse Rate 126 H 123 H 124 H Pulse Rate [ Anterior Bilateral Throughout] Pulse Rate [ From Monitor] Respiratory 21 15 13 Rate Respiratory Rate [Anterior Bilateral Throughout] Blood Pressure 152/77 164/76 170/78 O2 Sat by Pulse 96 96 96 Oximetry 06/21/21 06/21/21 10:16 10:30 Temperature Pulse Rate 123 H 126 H Pulse Rate [ Anterior Bilateral Throughout] Pulse Rate [ From Monitor] Respiratory 14 20 Rate Respiratory Rate [Anterior Bilateral Throughout] Blood Pressure 165/80 164/80 O2 Sat by Pulse 95 92 Oximetry - Labs 06/21/21 07:45 06/21/21 07:45 Diabetes panel 06/20/21 06/21/21 06/21/21 Range/Units 13:54 07:45 07:45 Sodium 147 H 145 145 (137-145) mmol/L Potassium 3.0 L D 3.5 L 3.5 L (3.6-5.0) mmol/L Chloride 99.9 108.0 H 107.4 H (98-107) mmol/L Carbon Dioxide 33 H D 26 D 25 (22-30) mmol/L BUN 90 H 86 H 84 H (9-20) mg/dL Creatinine 3.3 H 3.5 H 3.4 H (0.8-1.3) mg/dL Glucose 771 H* 157 H 158 H (75-100) mg/dL Calcium 5.3 L* D 7.4 L D 7.6 L (8.4-10.2) mg/dL AST 41 H 51 H (5-40) units/L ALT 11 14 (7-56) units/L Alkaline Phosphatase 93 122 (35-129) units/L Total Protein 3.5 L D 3.9 L (6.3-8.2) g/dL Albumin 1.0 L 1.3 L (3.9-5) g/dL Calcium panel 06/20/21 06/21/21 06/21/21 Range/Units 13:54 07:45 07:45 Calcium 5.3 L* D 7.4 L D 7.6 L (8.4-10.2) mg/dL Albumin 1.0 L 1.3 L (3.9-5) g/dL Pituitary panel 06/20/21 06/21/21 06/21/21 Range/Units 13:54 07:45 07:45 Sodium 147 H 145 145 (137-145) mmol/L Potassium 3.0 L D 3.5 L 3.5 L (3.6-5.0) mmol/L Chloride 99.9 108.0 H 107.4 H (98-107) mmol/L Carbon Dioxide 33 H D 26 D 25 (22-30) mmol/L BUN 90 H 86 H 84 H (9-20) mg/dL Creatinine 3.3 H 3.5 H 3.4 H (0.8-1.3) mg/dL Glucose 771 H* 157 H 158 H (75-100) mg/dL Calcium 5.3 L* D 7.4 L D 7.6 L (8.4-10.2) mg/dL Adrenal panel 06/20/21 06/21/21 06/21/21 Range/Units 13:54 07:45 07:45 Sodium 147 H 145 145 (137-145) mmol/L Potassium 3.0 L D 3.5 L 3.5 L (3.6-5.0) mmol/L Chloride 99.9 108.0 H 107.4 H (98-107) mmol/L Carbon Dioxide 33 H D 26 D 25 (22-30) mmol/L BUN 90 H 86 H 84 H (9-20) mg/dL Creatinine 3.3 H 3.5 H 3.4 H (0.8-1.3) mg/dL Glucose 771 H* 157 H 158 H (75-100) mg/dL Calcium 5.3 L* D 7.4 L D 7.6 L (8.4-10.2) mg/dL Total Bilirubin < 0.20 0.20 (0.1-1.2) mg/dL AST 41 H 51 H (5-40) units/L ALT 11 14 (7-56) units/L Alkaline Phosphatase 93 122 (35-129) units/L Total Protein 3.5 L D 3.9 L (6.3-8.2) g/dL Albumin 1.0 L 1.3 L (3.9-5) g/dL - Imaging Chest x-ray: report reviewed
--- NOTE | 2021-06-21 10:59 | Progress Note ---
Assessment and Plan Impression: * Acute kidney injury secondary to ATN likely related to COVID 19 * Acute hypoxic respiratory failure secondary to COVID 19 PNA * Azotemia * Hyperkalemia * Metabolic acidosis * Hypernatremia Plan: * creatinine is stable 1.2->1.4->1.2->1.1->1.2->1.3->1.3 > 1.4 > 1.3> 1.8 > 3.2 > 4.3 * Vasculitis work-up negative, including ANCA as well as complement levels. * Keep MAP>65 * Management of COVID 19 PNA to primary team/ID * Dose medications for renal function * Renal diet * follow up lytes prn * His renal function seems to be getting worse. His urine shows 1+ dipstick protein and moderate blood. Urine output is also declining. Patient may have progressed to ATN. Fractional excretion of sodium is 2.3% * Metabolic acidosis has been corrected. Discontinue bicarbonate drip. * Status post Vas-Cath placement 06/20/2021. Dialysis initiated thereafter * Shall dialyze patient again today. Subjective Date of service: 06/21/21 Principal diagnosis: Acute hypoxemic resp failure; Pneumonia; PUI COVID-19 infection Interval history: Patient remains on the ventilator. Currently on 70% FiO2. Unresponsive. Objective - Vital Signs Vital signs: Vital Signs - 12hr 06/20/21 06/20/21 06/20/21 23:00 23:16 23:25 Temperature Pulse Rate 114 H 107 H 112 H Pulse Rate [ Anterior Bilateral Throughout] Pulse Rate [ From Monitor] Respiratory 30 H 30 H Rate Respiratory Rate [Anterior Bilateral Throughout] Blood Pressure 108/63 140/72 108/63 O2 Sat by Pulse 85 84 94 Oximetry 06/20/21 06/20/21 06/20/21 23:30 23:45 23:46 Temperature Pulse Rate 108 H 108 H 108 H Pulse Rate [ Anterior Bilateral Throughout] Pulse Rate [ From Monitor] Respiratory 30 H 30 H 30 H Rate Respiratory Rate [Anterior Bilateral Throughout] Blood Pressure 128/70 135/71 135/71 O2 Sat by Pulse 87 84 86 Oximetry 06/21/21 06/21/21 06/21/21 00:00 00:16 00:30 Temperature 98.1 F Pulse Rate 108 H 106 H 108 H Pulse Rate [ Anterior Bilateral Throughout] Pulse Rate [ 108 H From Monitor] Respiratory 30 H 30 H 30 H Rate Respiratory Rate [Anterior Bilateral Throughout] Blood Pressure 134/69 144/73 129/65 O2 Sat by Pulse 100 84 82 L Oximetry 06/21/21 06/21/21 06/21/21 00:45 01:00 01:10 Temperature 98.3 F Pulse Rate 108 H 108 H 106 H Pulse Rate [ Anterior Bilateral Throughout] Pulse Rate [ From Monitor] Respiratory 30 H 30 H 30 H Rate Respiratory Rate [Anterior Bilateral Throughout] Blood Pressure 136/68 139/72 144/72 O2 Sat by Pulse 94 91 88 Oximetry 06/21/21 06/21/21 06/21/21 01:15 01:23 01:30 Temperature 98.2 F Pulse Rate 107 H 108 H 109 H Pulse Rate [ Anterior Bilateral Throughout] Pulse Rate [ From Monitor] Respiratory 30 H 30 H 30 H Rate Respiratory Rate [Anterior Bilateral Throughout] Blood Pressure 140/70 142/70 142/68 O2 Sat by Pulse 78 L 85 93 Oximetry 06/21/21 06/21/21 06/21/21 01:46 01:56 02:00 Temperature 98.1 F Pulse Rate 105 H 104 H 106 H Pulse Rate [ Anterior Bilateral Throughout] Pulse Rate [ From Monitor] Respiratory 30 H 30 H 30 H Rate Respiratory Rate [Anterior Bilateral Throughout] Blood Pressure 155/75 151/70 146/72 O2 Sat by Pulse 98 86 98 Oximetry 06/21/21 06/21/21 06/21/21 02:16 02:25 02:30 Temperature 98.1 F Pulse Rate 102 H 103 H 104 H Pulse Rate [ Anterior Bilateral Throughout] Pulse Rate [ From Monitor] Respiratory 30 H 30 H 30 H Rate Respiratory Rate [Anterior Bilateral Throughout] Blood Pressure 159/77 158/73 156/74 O2 Sat by Pulse 98 100 98 Oximetry 06/21/21 06/21/21 06/21/21 02:46 02:55 03:00 Temperature 98.3 F Pulse Rate 99 H 102 H 100 H Pulse Rate [ Anterior Bilateral Throughout] Pulse Rate [ From Monitor] Respiratory 30 H 30 H 30 H Rate Respiratory Rate [Anterior Bilateral Throughout] Blood Pressure 167/78 168/78 166/77 O2 Sat by Pulse 100 100 98 Oximetry 06/21/21 06/21/21 06/21/21 03:16 03:23 03:25 Temperature 98.4 F 98.3 F Pulse Rate 102 H 103 H Pulse Rate [ Anterior Bilateral Throughout] Pulse Rate [ From Monitor] Respiratory 30 H 30 H Rate Respiratory Rate [Anterior Bilateral Throughout] Blood Pressure 166/78 168/78 O2 Sat by Pulse 97 100 Oximetry 06/21/21 06/21/21 06/21/21 03:30 03:46 03:55 Temperature 98.4 F Pulse Rate 102 H 102 H 94 H Pulse Rate [ Anterior Bilateral Throughout] Pulse Rate [ From Monitor] Respiratory 30 H 30 H 30 H Rate Respiratory Rate [Anterior Bilateral Throughout] Blood Pressure 168/78 160/80 177/83 O2 Sat by Pulse 100 97 Oximetry 06/21/21 06/21/21 06/21/21 04:00 04:16 04:20 Temperature Pulse Rate 96 H 97 H 97 H Pulse Rate [ Anterior Bilateral Throughout] Pulse Rate [ 96 H From Monitor] Respiratory 30 H 30 H Rate Respiratory Rate [Anterior Bilateral Throughout] Blood Pressure 182/83 177/80 177/80 O2 Sat by Pulse 97 97 100 Oximetry 06/21/21 06/21/21 06/21/21 04:30 04:46 05:00 Temperature Pulse Rate 99 H 102 H 103 H Pulse Rate [ Anterior Bilateral Throughout] Pulse Rate [ From Monitor] Respiratory 30 H 30 H 30 H Rate Respiratory Rate [Anterior Bilateral Throughout] Blood Pressure 173/76 163/76 164/74 O2 Sat by Pulse 97 97 97 Oximetry 06/21/21 06/21/21 06/21/21 05:16 05:30 05:46 Temperature Pulse Rate 105 H 107 H 105 H Pulse Rate [ Anterior Bilateral Throughout] Pulse Rate [ From Monitor] Respiratory 30 H 30 H 30 H Rate Respiratory Rate [Anterior Bilateral Throughout] Blood Pressure 169/77 161/74 169/77 O2 Sat by Pulse 97 100 96 Oximetry 06/21/21 06/21/21 06/21/21 06:00 06:16 06:30 Temperature Pulse Rate 104 H 107 H 106 H Pulse Rate [ Anterior Bilateral Throughout] Pulse Rate [ From Monitor] Respiratory 30 H 30 H 30 H Rate Respiratory Rate [Anterior Bilateral Throughout] Blood Pressure 166/76 160/76 165/76 O2 Sat by Pulse 97 96 100 Oximetry 06/21/21 06/21/21 06/21/21 06:46 07:00 07:16 Temperature 99.0 F Pulse Rate 106 H 105 H 106 H Pulse Rate [ Anterior Bilateral Throughout] Pulse Rate [ From Monitor] Respiratory 30 H 30 H 30 H Rate Respiratory Rate [Anterior Bilateral Throughout] Blood Pressure 160/73 164/75 160/73 O2 Sat by Pulse 100 100 96 Oximetry 06/21/21 06/21/21 06/21/21 07:30 07:45 07:46 Temperature Pulse Rate 106 H 112 H 108 H Pulse Rate [ 107 H Anterior Bilateral Throughout] Pulse Rate [ From Monitor] Respiratory 30 H 30 H Rate Respiratory 30 H Rate [Anterior Bilateral Throughout] Blood Pressure 168/76 165/69 154/71 O2 Sat by Pulse 99 96 97 Oximetry 06/21/21 06/21/21 06/21/21 08:00 08:08 08:16 Temperature Pulse Rate 111 H 112 H 113 H Pulse Rate [ Anterior Bilateral Throughout] Pulse Rate [ From Monitor] Respiratory 30 H 30 H Rate Respiratory Rate [Anterior Bilateral Throughout] Blood Pressure 165/69 162/72 O2 Sat by Pulse 93 93 Oximetry 06/21/21 06/21/21 06/21/21 08:30 08:36 08:46 Temperature Pulse Rate 118 H 124 H Pulse Rate [ Anterior Bilateral Throughout] Pulse Rate [ 122 H From Monitor] Respiratory 30 H 30 H 26 H Rate Respiratory Rate [Anterior Bilateral Throughout] Blood Pressure 159/68 167/72 O2 Sat by Pulse 94 97 95 Oximetry 06/21/21 06/21/21 06/21/21 09:00 09:16 09:30 Temperature Pulse Rate 125 H 124 H 126 H Pulse Rate [ Anterior Bilateral Throughout] Pulse Rate [ From Monitor] Respiratory 15 17 21 Rate Respiratory Rate [Anterior Bilateral Throughout] Blood Pressure 173/71 169/75 152/77 O2 Sat by Pulse 94 95 96 Oximetry 06/21/21 06/21/21 06/21/21 09:46 10:00 10:16 Temperature Pulse Rate 123 H 124 H 123 H Pulse Rate [ Anterior Bilateral Throughout] Pulse Rate [ From Monitor] Respiratory 15 13 14 Rate Respiratory Rate [Anterior Bilateral Throughout] Blood Pressure 164/76 170/78 165/80 O2 Sat by Pulse 96 96 95 Oximetry 06/21/21 10:30 Temperature Pulse Rate 126 H Pulse Rate [ Anterior Bilateral Throughout] Pulse Rate [ From Monitor] Respiratory 20 Rate Respiratory Rate [Anterior Bilateral Throughout] Blood Pressure 164/80 O2 Sat by Pulse 92 Oximetry - General Appearance General appearance: well-developed, well-nourished, appears stated age, intubated EENT: PERRL, mucous membranes moist Neck: no JVD, no thyromegaly Respiratory: Present: Ronchi (Bilateral scattered rhonchi) Cardiology: regular, normal heart rate Gastrointestinal: normal, normoactive bowel sounds Integumentary: other (Femoral Vas-Cath in place) - Lab 06/21/21 07:45 06/21/21 07:45 Most recent lab results ABG pH 7.189 pH Units (7.350-7.450) L* 06/20/21 18:00 ABG pCO2 70.2 mm Hg 06/20/21 18:00 ABG pO2 209.0 mm Hg (80.0-90.0) H 06/20/21 18:00 ABG HCO3 26.1 mmol/L (20.0-26.0) H 06/20/21 18:00 ABG O2 Saturation 99.1 % (95.0-99.0) H 06/20/21 18:00 Calcium 7.4 mg/dL (8.4-10.2) L D 06/21/21 07:45 Calcium 7.6 mg/dL (8.4-10.2) L 06/21/21 07:45 Phosphorus 5.60 mg/dL (2.5-4.5) H D 06/18/21 10:56 Magnesium 2.30 mg/dL (1.7-2.3) 06/18/21 10:56 Urine Creatinine 49.9 mg/dL (0.1-20.0) H 06/19/21 11:14 Urine Sodium 56 mmol/L 06/19/21 11:14 Medications & Allergies - Medications Allergies/Adverse Reactions: Allergies No Known Allergies Allergy (Unverified 02/12/17 15:47) Home Medications: Home Medications Medication Instructions Recorded Confirmed Last Taken Type No Known Home Medications [No 05/31/21 05/31/21 Unknown History Reported Home Medications] Active Medications: Generic Name Dose Route Start Last Admin Trade Name Freq PRN Reason Stop Dose Admin Acetaminophen 650 mg 06/19/21 12:00 06/19/21 12:15 Acetaminophen 325 Mg/10.15 Ml Oral Liqd Unit Dose FEEDTUBE 650 mg Q6H PRN Administration Pain MILD(1-3)/Fever >100.5/LUCAS Albuterol/Ipratropium 1 ampul 10/02/21 20:00 06/21/21 07:44 Ipratropium/Albuterol Sulfate 3 Ml Ampul.Neb IH 1 ampul TIDRT MIKE Administration Lipase/Protease/Amylase 1 each 06/18/21 12:21 Lipase 10,500/Protease 25,000/Amylase 43,750 (Units) Dr Cap FEEDTUBE PRN PRN For Clogged Feeding Tube Famotidine 10 mg 06/19/21 10:00 06/21/21 10:22 Famotidine 20 Mg/2 Ml Inj IV 10 mg BID MIKE Administration Fentanyl 50 mcg 06/17/21 17:00 Fentanyl 100 Mcg/2 Ml Inj IV Q10MIN PRN ANALGESIA Hydrophilic Ointment 1 applic 06/17/21 17:00 Lip Therapy Vaseline TP Q2HR PRN Dry Lips Metronidazole 500 mg in 100 mls @ 100 mls/hr 06/08/21 13:00 06/21/21 08:12 Flagyl 500 Mg/100 Ml IV 06/29/21 05:59 Infused Q8H MIKE Infusion Protocol Fentanyl Citrate 2,000 mcg in 100 mls @ 3.725 mls/hr 06/17/21 17:00 06/21/21 05:38 Fentanyl Drip Premix IV 4 mcg/kg/hr TITR MIKE 14.9 mls/hr Administration Protocol 1 MCG/KG/HR NORepinephrine/NS 8 MG-250 ML 8 mg in 250 mls @ 3.75 mls/hr 06/18/21 23:00 06/21/21 03:39 Norepinephrine/Ns 8 Mg-250 Ml (Double Conc) IV 14 mcg/min TITRATE MIKE 26.25 mls/hr Administration Protocol 2 MCG/MIN Cefepime HCl 2 gm in 100 mls @ 200 mls/hr 06/20/21 06:00 06/21/21 08:12 Cefepime/Ns 2 Gm/100 Ml IV 06/29/21 06:29 Infused Q24H MIKE Infusion Protocol Sodium Chloride 1,000 mls @ 50 mls/hr 06/20/21 09:30 Nacl 0.9% 1000 Ml IV DIRECT MIKE Sodium Bicarbonate 150 meq/ 1,150 mls @ 125 mls/hr 06/20/21 12:00 06/20/21 12:36 Dextrose IV 125 mls/hr DIRECT MIKE Administration Propofol 1,000 mg in 100 mls @ 2.226 mls/hr 06/20/21 13:00 06/20/21 14:36 Diprivan 10 Mg/Ml IV 5 mcg/kg/min TITR MIKE 2.226 mls/hr Administration Protocol 5 MCG/KG/MIN Sodium Chloride 100 mls @ 999 mls/hr 06/20/21 14:05 Nacl 0.9% IV KAVITA PRN Hypotension Morphine Sulfate 2 mg 05/23/21 22:01 06/17/21 10:01 Morphine 2 Mg/1 Ml Inj IV 2 mg Q4H PRN Administration Pain, Moderate (4-6) Multi-Ingred Cream/Lotion/Oil/Oint 1 applic 06/17/21 18:00 Mineral Oil/Petrolatum, White Ophth Oint 3.5 Gm OU Q4HR PRN Dry Eye(s) Ondansetron HCl 4 mg 06/04/21 13:41 06/09/21 22:05 Ondansetron 4 Mg/2 Ml Inj IV 4 mg Q4H PRN Administration Nausea And Vomiting Senna/Docusate Sodium 1 tab 06/17/21 22:00 06/21/21 10:22 Sennosides/Docusate Sodium 8.6/50 Mg Tab FEEDTUBE 1 tab BID MIKE Administration Simple Syrup 15 ml 06/18/21 12: Simple Syrup 15 Ml FEEDTUBE PRN PRN Hypoglycemia Simple Syrup 30 ml 06/18/21 12: Simple Syrup 15 Ml FEEDTUBE PRN PRN Hypoglycemia Sodium Bicarbonate 325 mg 06/18/21 12:21 Sodium Bicarbonate 325 Mg Tab FEEDTUBE PRN PRN For Clogged Feeding Tube Sodium Chloride 10 ml 05/23/21 22:01 06/21/21 10:22 Sodium Chloride 0.9% 10 Ml Flush Syringe IV 10 ml PRN PRN Administration LINE FLUSH
--- NOTE | 2021-06-21 12:27 | Progress Note ---
Assessment and Plan Assessment and plan: #PEA arrest -06/20 ROSC achieved after 7 minutes -shocked after episode of VTachy #Acute hypoxic respiratory failure #Moderate ARDS #Respiratory acidosis #L sided pneumothorax -Intubated on 06/27, requiring mechanical ventilation -Vent settings: A/C tidal volume 450, rate 30, PEEP 8, FiO2 100% -continue Solu-Medrol -continue chest tube to suction -fentanyl and propofol -Pulmonary/CC consulted, recs appreciated #Severe sepsis with shock -currently requiring pressor support (Norepinephrine @ 10mcg); maintain MAP >65 -Repeat blood cultures ordered 06/17: NGTD x 4 days -urine culture w/ maisha -Likely source PNA/abscess #Pancytopenia -low WBC, H&H, and platelet count -likely 2/2 to critical illness and recent PEA arrest -transfuse for Hgb <7, platelets less than 30 if febrile -will continue to monitor #Metabolic acidosis -improving -femoral vasc cath as access -bicarbonate drip @ 25cc/hr -dialysis per Nephrology #ANGELES -FENa 2.7% indicative of intrinsic cause; likely due to ATN -continue HD -appreciate Nephrology assistance #COVID-19 pneumonia #Aspiration pneumonia #Left lower lobe abscess -Seen on CT abdomen pelvis and chest: Approximately 5 x 6 cm -continue cefepime and Flagyl per ID recommendations -vancomycin discontinued -will continue antibiotic treatment for 3 weeks total #Hyperkalemia -resolved -continue to monitor #Nutrition -TF at 41cc/hr currently -Nutrition following, assistance appreciated #Goals of care -Discussed with family recent updates, made aware of poor prognosis due to PEA arrest and concurrent respiratory and renal failure on 06/20. They want FULL CODE for now. Will continue to discuss. -per CHERRY Sanabria, would like brother Ben Sanabria to make final medical decisions. Resolved problems: #Hypernatremia #Acute encephalopathy #Ileus #Lactic acidosis Disposition Plan: Continue medical management Total Time Spent with Patient (Minutes): 30 minutes History Interval history: No acute events overnight. Patient still intubated and unresponsive. Hospitalist Physical - Physical exam Narrative exam: GENERAL: Thin male. Intubated and mechanically ventilated. HEENT: ETT and CURT in place CHEST/LUNGS: Coarse breath sounds bilaterally. L sided chest tube in place. HEART/CARDIOVASCULAR: Tachycardic. No murmur, rubs or gallops appreciated. ABDOMEN: +BS. ND. :+Heart cath EXTREMITIES: BUE edema - Constitutional Vitals: Temp Pulse Resp BP Pulse Ox 99.3 F 126 H 20 164/80 92 06/21/21 12:08 06/21/21 10:30 06/21/21 10:30 06/21/21 10:30 06/21/21 10:30 General appearance: Present: other (intubated) HEART Score - HEART Score EKG: Non-specific Age: 45-65 Risk factors: 1-2 risk factors Troponin: Troponin T 0.105 ng/mL (0.00-0.029) H* 06/20/21 05:00 - Critical Actions Critical Actions: 0-3 pts:0.9-1.7%risk of adverse cardiac event.Candidate for di charlene Results - Labs CBC & Chem 7: 06/22/21 09:42 06/22/21 04:57 Labs: Laboratory Last Values WBC 3.3 K/mm3 (4.5-11.0) L 06/21/21 07:45 RBC 3.08 M/mm3 (3.65-5.03) L 06/21/21 07:45 Hgb 8.7 gm/dl (11.8-15.2) L 06/21/21 07:45 Hct 25.6 % (35.5-45.6) L D 06/21/21 07:45 MCV 83 fl (84-94) L 06/21/21 07:45 MCH 28 pg (28-32) 06/21/21 07:45 MCHC 34 % (32-34) 06/21/21 07:45 RDW 16.2 % (13.2-15.2) H 06/21/21 07:45 Plt Count 49 K/mm3 (140-440) L 06/21/21 07:45 Lymph % (Auto) Wire Brush Maker 06/01/21 07:10 [place] % (Auto) Wire Brush Maker 06/01/21 07:10 Eos % (Auto) Wire Brush Maker 06/01/21 07:10 Baso % (Auto) Wire Brush Maker 06/01/21 07:10 Lymph # (Auto) Wire Brush Maker 06/01/21 07:10 [place] # (Auto) Wire Brush Maker 06/01/21 07:10 Eos # (Auto) Wire Brush Maker 06/01/21 07:10 Baso # (Auto) Wire Brush Maker 06/01/21 07:10 Add Manual Diff Complete 06/17/21 06:25 Total Counted 100 06/17/21 06:25 Seg Neutrophils % Wire Brush Maker 06/17/21 06:25 Seg Neuts % (Manual) 95.0 % (40.0-70.0) H 06/17/21 06:25 Band Neutrophils % 2.0 % 06/17/21 06:25 Lymphocytes % (Manual) 1.0 % (13.4-35.0) L 06/15/21 05:53 Reactive Lymphs % (Man) 1.0 % 06/01/21 07:10 Monocytes % (Manual) 3.0 % (0.0-7.3) 06/17/21 06:25 Myelocytes % 1.0 % 06/13/21 06:05 Nucleated RBC % Not Reportable 06/17/21 06:25 Seg Neutrophils # Wire Brush Maker 06/01/21 07:10 Seg Neutrophils # Man 4.2 K/mm3 (1.8-7.7) 06/17/21 06:25 Band Neutrophils # 0.1 K/mm3 06/17/21 06:25 Lymphocytes # (Manual) 0.0 K/mm3 (1.2-5.4) L 06/17/21 06:25 Abs React Lymphs (Man) 0.0 K/mm3 06/17/21 06:25 Monocytes # (Manual) 0.1 K/mm3 (0.0-0.8) 06/17/21 06:25 Eosinophils # (Manual) 0.0 K/mm3 (0.0-0.4) 06/17/21 06:25 Basophils # (Manual) 0.0 K/mm3 (0.0-0.1) 06/17/21 06:25 Metamyelocytes # 0.0 K/mm3 06/17/21 06:25 Myelocytes # 0.0 K/mm3 06/17/21 06:25 Promyelocytes # 0.0 K/mm3 06/17/21 06:25 Blast Cells # 0.0 K/mm3 06/17/21 06:25 WBC Morphology Not Reportable 06/17/21 06:25 Hypersegmented Neuts Not Reportable 06/17/21 06:25 Hyposegmented Neuts Not Reportable 06/17/21 06:25 Hypogranular Neuts Not Reportable 06/17/21 06:25 Smudge Cells Not Reportable 06/17/21 06:25 Toxic Granulation Not Reportable 06/17/21 06:25 Toxic Vacuolation Not Reportable 06/17/21 06:25 Dohle Bodies Not Reportable 06/17/21 06:25 Pelger-Huet Anomaly Not Reportable 06/17/21 06:25 Kaci Rods Not Reportable 06/17/21 06:25 Platelet Estimate Consistent w auto 06/17/21 06:25 Clumped Platelets Not Reportable 06/17/21 06:25 Plt Clumps, EDTA Not Reportable 06/17/21 06:25 Large Platelets Not Reportable 06/17/21 06:25 Giant Platelets Not Reportable 06/17/21 06:25 Platelet Satelliting Not Reportable 06/17/21 06:25 Plt Morphology Comment Not Reportable 06/17/21 06:25 RBC Morphology Normal 06/17/21 06:25 Dimorphic RBCs Not Reportable 06/17/21 06:25 Polychromasia Not Reportable 06/17/21 06:25 Hypochromasia Not Reportable 06/17/21 06:25 Poikilocytosis Not Reportable 06/17/21 06:25 Anisocytosis Not Reportable 06/17/21 06:25 Microcytosis Not Reportable 06/17/21 06:25 Macrocytosis Not Reportable 06/17/21 06:25 Spherocytes Not Reportable 06/17/21 06:25 Pappenheimer Bodies Not Reportable 06/17/21 06:25 Sickle Cells Not Reportable 06/17/21 06:25 Target Cells Not Reportable 06/17/21 06:25 Tear Drop Cells Not Reportable 06/17/21 06:25 Ovalocytes Not Reportable 06/17/21 06:25 Helmet Cells Not Reportable 06/17/21 06:25 [place] Bodies Not Reportable 06/17/21 06:25 [place] Rings Not Reportable 06/17/21 06:25 [place] Cells Not Reportable 06/17/21 06:25 Bite Cells Not Reportable 06/17/21 06:25 Crenated Cell Not Reportable 06/17/21 06:25 Elliptocytes Not Reportable 06/17/21 06:25 Acanthocytes (Spur) Not Reportable 06/17/21 06:25 Rouleaux Not Reportable 06/17/21 06:25 Hemoglobin C Crystals Not Reportable 06/17/21 06:25 Schistocytes Not Reportable 06/17/21 06:25 Malaria parasites Not Reportable 06/17/21 06:25 Dick Bodies Not Reportable 06/17/21 06:25 Hem Pathologist Commnt No 06/17/21 06:25 PT 19.2 Sec. (12.2-14.9) H 06/19/21 09:37 INR 1.46 (0.87-1.13) H 06/19/21 09:37 APTT 54.3 Sec. (24.2-36.6) H 06/19/21 09:37 D-Dimer 3584.01 ng/mlDDU (0-234) H 05/27/21 08:09 ABG pH 7.189 pH Units (7.350-7.450) L* 06/20/21 18:00 POC ABG pCO2 70.2 mmHg (32.0-48.0) H 06/20/21 11:40 ABG pCO2 70.2 mm Hg 06/20/21 18:00 POC ABG pO2 101.2 mmHg (83-108) 06/20/21 11:40 ABG pO2 209.0 mm Hg (80.0-90.0) H 06/20/21 18:00 POC ABG HCO3 16.7 06/20/21 11:40 ABG HCO3 26.1 mmol/L (20.0-26.0) H 06/20/21 18:00 ABG O2 Saturation 99.1 % (95.0-99.0) H 06/20/21 18:00 ABG O2 Content 10.6 (0.0-44) 06/20/21 18:00 POC ABG Base Excess -14.1 06/20/21 11:40 ABG Base Excess -2.3 mmol/L (-2.0-3.0) L 06/20/21 18:00 ABG Hemoglobin 7.4 gm/dl (14.0-18.0) L 06/20/21 18:00 ABG Oxyhemoglobin 94 (94-98) 06/20/21 11:40 ABG Carboxyhemoglobin 1.7 % (0.0-5.0) 06/20/21 18:00 ABG Methemoglobin 0.7 % (0.0-1.5) 06/20/21 18:00 ABG Sodium 142.4 mmol/L (136.0-145.0) 06/20/21 11:40 ABG Potassium 4.3 mmol/L (3.40-4.50) 06/20/21 11:40 ABG Chloride 111.0 mmol/L (98-107) H 06/20/21 11:40 ABG Glucose 207 mg/dL (65-95) H 06/20/21 11:40 VBG pH 7.254 (7.320-7.420) L 05/24/21 02:09 Oxyhemoglobin 96.7 % (95.0-99.0) 06/20/21 18:00 Carboxyhemoglobin 1.2 (0.5-1.5) 06/20/21 11:40 FiO2 100 % 06/20/21 18:00 FiO2 % 100 06/20/21 11:40 Sodium 145 mmol/L (137-145) 06/21/21 07:45 Sodium 145 mmol/L (137-145) 06/21/21 07:45 Potassium 3.5 mmol/L (3.6-5.0) L 06/21/21 07:45 Potassium 3.5 mmol/L (3.6-5.0) L 06/21/21 07:45 Chloride 107.4 mmol/L (98-107) H 06/21/21 07:45 Chloride 108.0 mmol/L (98-107) H 06/21/21 07:45 Carbon Dioxide 25 mmol/L (22-30) 06/21/21 07:45 Carbon Dioxide 26 mmol/L (22-30) D 06/21/21 07:45 Anion Gap 15 mmol/L 06/21/21 07:45 Anion Gap 16 mmol/L 06/21/21 07:45 BUN 84 mg/dL (9-20) H 06/21/21 07:45 BUN 86 mg/dL (9-20) H 06/21/21 07:45 Creatinine 3.4 mg/dL (0.8-1.3) H 06/21/21 07:45 Creatinine 3.5 mg/dL (0.8-1.3) H 06/21/21 07:45 Estimated GFR 22 ml/min 06/21/21 07:45 Estimated GFR 23 ml/min 06/21/21 07:45 BUN/Creatinine Ratio 25 % 06/21/21 07:45 BUN/Creatinine Ratio 25 % 06/21/21 07:45 Glucose 157 mg/dL (75-100) H 06/21/21 07:45 Glucose 158 mg/dL (75-100) H 06/21/21 07:45 POC Glucose 130 mg/dL (70-105) H 06/21/21 11:46 Lactic Acid 1.00 mmol/L (0.7-2.0) 06/19/21 16:20 Calcium 7.4 mg/dL (8.4-10.2) L D 06/21/21 07:45 Calcium 7.6 mg/dL (8.4-10.2) L 06/21/21 07:45 Phosphorus 5.60 mg/dL (2.5-4.5) H D 06/18/21 10:56 Magnesium 2.30 mg/dL (1.7-2.3) 06/18/21 10:56 Ferritin 2742.0 ng/mL (30.0-300.0) H 05/27/21 08:09 Total Bilirubin 0.20 mg/dL (0.1-1.2) 06/21/21 07:45 AST 51 units/L (5-40) H 06/21/21 07:45 ALT 14 units/L (7-56) 06/21/21 07:45 Alkaline Phosphatase 122 units/L (35-129) 06/21/21 07:45 Ammonia 22.0 umol/L (25-60) L 05/23/21 18:48 Lactate Dehydrogenase 642 units/L (91-180) H 05/27/21 08:09 Troponin T 0.105 ng/mL (0.00-0.029) H* 06/20/21 05:00 C-Reactive Protein 11.50 mg/dL (0.00-1.30) H 06/19/21 16:15 Total Protein 3.9 g/dL (6.3-8.2) L 06/21/21 07:45 Albumin 1.3 g/dL (3.9-5) L 06/21/21 07:45 Albumin/Globulin Ratio 0.5 % 06/21/21 07:45 Triglycerides 295 mg/dL (2-149) H 06/19/21 12:19 Cholesterol 85 mg/dL (50-199) 06/19/21 12:19 LDL Cholesterol Direct 24 mg/dL (50-130) L 06/19/21 12:19 HDL Cholesterol 17 mg/dL (40-59) L 06/19/21 12:19 Cholesterol/HDL Ratio 5.00 % 06/19/21 12:19 Procalcitonin 19.60 ng/mL (<0.15) 06/18/21 Unknown TSH 1.150 mlU/mL (0.270-4.200) 05/23/21 18:48 Arterial Blood Glucose 207 mg/dL (65-95) H 06/20/21 11:40 Arterial Blood Ionized Calcium 4.5 mg/dL (4.6-5.3) L 05/29/21 17:58 Urine Color Eli (Yellow) 06/20/21 12:35 Urine Turbidity Cloudy (Clear) 06/20/21 12:35 Urine pH 5.0 (5.0-7.0) 06/20/21 12:35 Ur Specific [place] 1.016 (1.003-1.030) 06/20/21 12:35 Urine Protein 100 mg/dl mg/dL (Negative) 06/20/21 12:35 Urine Glucose (UA) 50 mg/dL (Negative) 06/20/21 12:35 Urine Ketones Neg mg/dL (Negative) 06/20/21 12:35 Urine Blood Mod (Negative) 06/20/21 12:35 Urine Nitrite Neg (Negative) 06/20/21 12:35 Urine Bilirubin Neg (Negative) 06/20/21 12:35 Urine Urobilinogen < 2.0 mg/dL (<2.0) 06/20/21 12:35 Ur Leukocyte Esterase Neg (Negative) 06/20/21 12:35 Urine WBC (Auto) 46.0 /HPF (0.0-6.0) H 06/20/21 12:35 Urine RBC (Auto) 74.0 /HPF (0.0-6.0) 06/20/21 12:35 U Epithel Cells (Auto) 2.0 /HPF (0-13.0) 05/30/21 01:00 Urine Bacteria (Auto) 4+ /HPF (Negative) 06/20/21 12:35 Urine WBC Clumps Few /HPF 06/20/21 12:35 Uric Acid Crystals Few 05/30/21 01:00 Amorphous Crystals 3+ 06/20/21 12:35 Granular Casts 90 /LPF 06/20/21 12:35 Urine Mucus Few /HPF 06/20/21 12:35 Ur Yeast w Hyphae 2+ /HPF 06/18/21 Unknown Urine Yeast (Budding) 3+ /HPF 06/18/21 Unknown Urine Sperm Few /HPF (INSTRUCTIONAL SYSTEMS DESIGN CONSULTANT) 06/20/21 12:35 Urine Eosinophils None seen (None Seen) 06/18/21 11:24 Urine Creatinine 49.9 mg/dL (0.1-20.0) H 06/19/21 11:14 Urine Sodium 56 mmol/L 06/19/21 11:14 Fraction Sodium Excret 2.3 06/19/21 11:14 Nasal Screen MRSA (PCR) Negative (Negative) 06/15/21 Unknown Vancomycin Trough 18.1 ug/mL (5.0-20.0) 06/16/21 22:30 Plasma/Serum Alcohol < 0.01 % (0-0.07) 05/23/21 18:48 Proteinase 3 (PR3) Ab <1.0 AI (<1.0) 05/24/21 20:57 Myeloperoxidase Ab <1.0 AI (<1.0) 05/24/21 20:57 Complement C3 108 mg/dL (82-185) 05/24/21 20:57 Complement C4 29 mg/dL (15-53) 05/24/21 20:57 Coronavirus (PCR) Negative (Negative) 05/26/21 08:41 Blood Type A POSITIVE 06/20/21 22:38 Antibody Screen Negative 06/20/21 22:38 Crossmatch See Detail 06/20/21 22:38 Microbiology: Microbiology 06/17/21 13:15 Peripheral/Venous Blood Culture - Preliminary NO GROWTH AFTER 72 HOURS 06/17/21 13:48 Peripheral/Venous Blood Culture - Preliminary NO GROWTH AFTER 72 HOURS 06/18/21 Unknown Urine,Clean Catch Urine Culture - Final Maisha Albicans Heart/IV: Voiding Method Indwelling Catheter Active Medications - Current Medications Current Medications: Generic Name Dose Route Start Last Admin Trade Name Freq PRN Reason Stop Dose Admin Acetaminophen 650 mg 06/19/21 12:00 06/19/21 12:15 Acetaminophen 325 Mg/10.15 Ml Oral Liqd Unit Dose FEEDTUBE 650 mg Q6H PRN Administration Pain MILD(1-3)/Fever >100.5/LUCAS Albuterol/Ipratropium 1 ampul 06/07/21 20:00 06/21/21 07:44 Ipratropium/Albuterol Sulfate 3 Ml Ampul.Neb IH 1 ampul TIDRT MIKE Administration Lipase/Protease/Amylase 1 each 06/18/21 12:21 Lipase 10,500/Protease 25,000/Amylase 43,750 (Units) Dr Cap FEEDTUBE PRN PRN For Clogged Feeding Tube Famotidine 10 mg 06/19/21 10:00 06/21/21 10:22 Famotidine 20 Mg/2 Ml Inj IV 10 mg BID MIKE Administration Fentanyl 50 mcg 06/17/21 17:00 Fentanyl 100 Mcg/2 Ml Inj IV Q10MIN PRN ANALGESIA Hydrophilic Ointment 1 applic 06/17/21 17:00 Lip Therapy Vaseline TP Q2HR PRN Dry Lips Metronidazole 500 mg in 100 mls @ 100 mls/hr 06/08/21 13:00 06/21/21 08:12 Flagyl 500 Mg/100 Ml IV 06/29/21 05:59 Infused Q8H MIKE Infusion Protocol Fentanyl Citrate 2,000 mcg in 100 mls @ 3.725 mls/hr 06/17/21 17:00 06/21/21 05:38 Fentanyl Drip Premix IV 4 mcg/kg/hr TITR MIKE 14.9 mls/hr Administration Protocol 1 MCG/KG/HR NORepinephrine/NS 8 MG-250 ML 8 mg in 250 mls @ 3.75 mls/hr 06/18/21 23:00 06/21/21 03:39 Norepinephrine/Ns 8 Mg-250 Ml (Double Conc) IV 14 mcg/min TITRATE MIKE 26.25 mls/hr Administration Protocol 2 MCG/MIN Cefepime HCl 2 gm in 100 mls @ 200 mls/hr 06/20/21 06:00 06/21/21 08:12 Cefepime/Ns 2 Gm/100 Ml IV 06/29/21 06:29 Infused Q24H MIKE Infusion Protocol Sodium Chloride 1,000 mls @ 50 mls/hr 06/20/21 09:30 Nacl 0.9% 1000 Ml IV DIRECT MIKE Propofol 1,000 mg in 100 mls @ 2.226 mls/hr 06/20/21 13:00 06/20/21 14:36 Diprivan 10 Mg/Ml IV 5 mcg/kg/min TITR MIKE 2.226 mls/hr Administration Protocol 5 MCG/KG/MIN Sodium Chloride 100 mls @ 999 mls/hr 06/20/21 14:05 Nacl 0.9% IV KAVITA PRN Hypotension Morphine Sulfate 2 mg 05/23/21 22:01 06/17/21 10:01 Morphine 2 Mg/1 Ml Inj IV 2 mg Q4H PRN Administration Pain, Moderate (4-6) Multi-Ingred Cream/Lotion/Oil/Oint 1 applic 06/17/21 18:00 Mineral Oil/Petrolatum, White Ophth Oint 3.5 Gm OU Q4HR PRN Dry Eye(s) Ondansetron HCl 4 mg 06/04/21 13:41 06/09/21 22:05 Ondansetron 4 Mg/2 Ml Inj IV 4 mg Q4H PRN Administration Nausea And Vomiting Senna/Docusate Sodium 1 tab 06/17/21 22:00 06/21/21 10:22 Sennosides/Docusate Sodium 8.6/50 Mg Tab FEEDTUBE 1 tab BID MIKE Administration Simple Syrup 15 ml 06/18/21 12:21 Simple Syrup 15 Ml FEEDTUBE PRN PRN Hypoglycemia Simple Syrup 30 ml 06/18/21 12:21 Simple Syrup 15 Ml FEEDTUBE PRN PRN Hypoglycemia Sodium Bicarbonate 325 mg 06/18/21 12:21 Sodium Bicarbonate 325 Mg Tab FEEDTUBE PRN PRN For Clogged Feeding Tube Sodium Chloride 10 ml 05/23/21 22:01 06/21/21 10:22 Sodium Chloride 0.9% 10 Ml Flush Syringe IV 10 ml PRN PRN Administration LINE FLUSH Nutrition/Malnutrition Assess - Dietary Evaluation Nutrition/Malnutrition Findings: Nutrition Notes Start: 05/25/21 09:33 Freq: Status: Active Protocol: Document 06/20/21 12:02 GB (Rec: 06/20/21 12:17 GB [id number]) Nutrition Notes Initial or Follow up Reassessment Current Diagnosis Respiratory Failure Other Pertinent Diagnosis Accute Kidney Injury, Pneumonia, PUI Covid-19. Current Diet NPO, Tube Feeding Nepro Labs/Tests 06/20: BUN 108, creatinine 4.3 , Glu 152, Ca 7/1 Pertinent Medications fentanyl citrate, Norepinhephrin/Ns8 Mg250 Height 5 ft 11 in Weight 74.2 kg [place] Body Weight (kg) 78.18 BMI 22.8 Weight change and time frame 05/24: 77.111kg 06/20: 74.2kg change of -2.911kg for -3.7% signficance. Stable for 30 days. Weight Status Appropriate Subjective/Other Information TF at goal rate. Per chart: pt name is Marty Sanabria age 59yrs. Last BM: 06/19 MD note 06/20: Pt experienced PEA arrest today. Family wants full care and continue full code status. Percent of energy/protein needs met: TF at goal rate meets 75% or greater EEN Burn Absent Trauma Absent GI Symptoms Diarrhea Difficulty In Swallowing Food Allergy No Skin Integrity/Comment PI: buttocks Current % PO Other Minimum of two criteria No physical signs of malnutrition #2 Nutrition Diagnosis No nutrition diagnosis at this time Diagnosis Progress(for reassessment Resolved documentation) #1 Nutrition Diagnosis Swallowing difficulty Comments: 06/20: Tube feeding started , Nepro @41ml/hr at goal, tolerating Etiology acute illness As Evidenced by Signs and Symptoms Intubated, TF Diagnosis Progress(for reassessment Continues documentation) Is patient on ventilator? Yes Is Patient Ambulatory and/or Out of Bed No REE-([facility] [place]-confined to bed) 1923.336 Kcal/Kg value to use for calculation 25 Approximate Energy Requirements Using 1855 kcal/Kg Calculation Used for Recommendations Kcal/kg Additional Notes protein needs: 1.0-1.2 g/Kg/ day @78kg; 78-94 gr/day fluid needs: 1.0 ml/kcal, or as per MD. Nutrition Intervention Change Diet Order: NPO - continue Nutrition Support: TF- Nepro @41ml/hr continue Flush 190ml/4hr Total fluids: TF at goal + Flush = 1855ml Kcal 1,771 Protein (gm) 80 Fluid (mL) 715 Add Supplement/Snack (indicate name/kcal n/a /protein ) Goal #1 Maintain body weight within +/ -3% of current BWt during LOS. 06/20: met, -3.7% in 30 days, continues Goal #2 Reach and maintain acceptable chemistry lab values during LOS. 06/20: showing improvement, continues Goal #3 Tolerate TF at goal 41ml/hr during LOS 06/20: met, continues Follow-Up By: 06/24/21 Additional Comments f/u: TF, vent status
[2021-06-21] MEDS ORDERED: SODIUM CHLORIDE 0.9% 100 ML IV PRN (14:26)
--- NOTE | 2021-06-21 15:30 | Progress Note ---
Assessment and Plan Cardiopulmonary arrest with ROSC Left pneumothorax Acute hypoxemic respiratory failure on MVS Bilateral pneumonia Interstitial changes with GGO on imaging h/o 2019 novel coronavirus infection - VAP bundle addressed, aspiration precautions HOB >40 - continue lung protective strategies - continue bronchodilators with pulmonary hygiene per RT - wean per pulmonary driven protocols otherwise - Titrate supplemental oxygen for target SpO2 88-90% -Vasopressor support, keep MAP>65 - continue accuchecks with glycemic control per SSI (While critically ill target blood glucose of 140-180 mg/dL; avoid hypoglycemia) - avoid nephrotoxins, renally dose all medications - continue to avoid benzodiazepines, reduce the possibility of delirium - prn analgesia per CPOT score - Maintenance of sleep-wake cycle, avoid delirium - Daily SAT and SBT assessment as tolerated - Enteric nutritional support trickle feeding -Antibiotics- broad spectrum for possible HAP. ID following - Stress ulcer and VTE prophylaxis - continue mobility protocols for pressure ulcer prophylaxis - Monitor hemodynamics closely - continue other care per attending / other consultants -Family want to come in to visit and will at that time re address goals of care. It[birth year] [age] [birth year]. -Supportive HD as tolerated by hemodynamics COVID SPECIFIC INTERVENTIONS - repeat COVID-19 test result negative CONDITION: CRITICAL PROGNOSIS: GUARDED CODE STATUS: FULL CODE The high probability of a clinically significant, sudden or life-threatening deterioration of the [respiratory, GI, renal & cardiovascular] system(s) required my full and direct attention, intervention and personal management. The aggregate critical care time was [45] minutes without overlap. Time includes spent on; [x] Data Review and interpretation [x] Patient assessment and monitoring of vital signs [x] Documentation [x] Medication orders and management Subjective Date of service: 06/21/21 Principal diagnosis: Acute hypoxemic resp failure; Pneumonia; PUI COVID-19 infection Interval history: Seen and examined at bedside; 24hour events reviewed; nursing and respiratory care staff consulted; no adverse overnight events reported to me; s/p PEA arrest yesterday, ROSC after 7 minutes. Pneumothorax with left chest tube in place.Per family discussions patient is full code. s/p HD yesterday via left femoral groin catheter. Subcutaneous emphysema improved. Critically ill with some episodes of desaturations requiring increase in FIO2 to 70%. On vasopressors. NO fevers, no vomiting, some oropharyngeal bleeding. Left chest tube to wall suction, no leak ABG this morning 7.31/55.4/156.5/27.8 Objective Vital Signs - 12hr 06/21/21 06/21/21 06/21/21 03:46 03:55 04:00 Temperature 98.4 F Pulse Rate 102 H 94 H 96 H Pulse Rate [ Anterior Bilateral Throughout] Pulse Rate [ 96 H From Monitor] Respiratory 30 H 30 H 30 H Rate Respiratory Rate [Anterior Bilateral Throughout] Blood Pressure 160/80 177/83 182/83 O2 Sat by Pulse 97 97 Oximetry 06/21/21 06/21/21 06/21/21 04:16 04:20 04:30 Temperature Pulse Rate 97 H 97 H 99 H Pulse Rate [ Anterior Bilateral Throughout] Pulse Rate [ From Monitor] Respiratory 30 H 30 H Rate Respiratory Rate [Anterior Bilateral Throughout] Blood Pressure 177/80 177/80 173/76 O2 Sat by Pulse 97 100 97 Oximetry 06/21/21 06/21/21 06/21/21 04:46 05:00 05:16 Temperature Pulse Rate 102 H 103 H 105 H Pulse Rate [ Anterior Bilateral Throughout] Pulse Rate [ From Monitor] Respiratory 30 H 30 H 30 H Rate Respiratory Rate [Anterior Bilateral Throughout] Blood Pressure 163/76 164/74 169/77 O2 Sat by Pulse 97 97 97 Oximetry 06/21/21 06/21/21 06/21/21 05:30 05:46 06:00 Temperature Pulse Rate 107 H 105 H 104 H Pulse Rate [ Anterior Bilateral Throughout] Pulse Rate [ From Monitor] Respiratory 30 H 30 H 30 H Rate Respiratory Rate [Anterior Bilateral Throughout] Blood Pressure 161/74 169/77 166/76 O2 Sat by Pulse 100 96 97 Oximetry 06/21/21 06/21/21 06/21/21 06:16 06:30 06:46 Temperature Pulse Rate 107 H 106 H 106 H Pulse Rate [ Anterior Bilateral Throughout] Pulse Rate [ From Monitor] Respiratory 30 H 30 H 30 H Rate Respiratory Rate [Anterior Bilateral Throughout] Blood Pressure 160/76 165/76 160/73 O2 Sat by Pulse 96 100 100 Oximetry 06/21/21 06/21/21 06/21/21 07:00 07:16 07:30 Temperature 99.0 F Pulse Rate 105 H 106 H 106 H Pulse Rate [ Anterior Bilateral Throughout] Pulse Rate [ From Monitor] Respiratory 30 H 30 H 30 H Rate Respiratory Rate [Anterior Bilateral Throughout] Blood Pressure 164/75 160/73 168/76 O2 Sat by Pulse 100 96 99 Oximetry 06/21/21 06/21/21 06/21/21 07:45 07:46 08:00 Temperature Pulse Rate 112 H 108 H 111 H Pulse Rate [ 107 H Anterior Bilateral Throughout] Pulse Rate [ From Monitor] Respiratory 30 H 30 H Rate Respiratory 30 H Rate [Anterior Bilateral Throughout] Blood Pressure 165/69 154/71 165/69 O2 Sat by Pulse 96 97 93 Oximetry 06/21/21 06/21/21 06/21/21 08:08 08:16 08:30 Temperature Pulse Rate 112 H 113 H 118 H Pulse Rate [ Anterior Bilateral Throughout] Pulse Rate [ From Monitor] Respiratory 30 H 30 H Rate Respiratory Rate [Anterior Bilateral Throughout] Blood Pressure 162/72 159/68 O2 Sat by Pulse 93 94 Oximetry 06/21/21 06/21/21 06/21/21 08:36 08:46 09:00 Temperature Pulse Rate 124 H 125 H Pulse Rate [ Anterior Bilateral Throughout] Pulse Rate [ 122 H From Monitor] Respiratory 30 H 26 H 15 Rate Respiratory Rate [Anterior Bilateral Throughout] Blood Pressure 167/72 173/71 O2 Sat by Pulse 97 95 94 Oximetry 06/21/21 06/21/21 06/21/21 09:16 09:30 09:46 Temperature Pulse Rate 124 H 126 H 123 H Pulse Rate [ Anterior Bilateral Throughout] Pulse Rate [ From Monitor] Respiratory 17 21 15 Rate Respiratory Rate [Anterior Bilateral Throughout] Blood Pressure 169/75 152/77 164/76 O2 Sat by Pulse 95 96 96 Oximetry 06/21/21 06/21/21 06/21/21 10:00 10:16 10:30 Temperature Pulse Rate 124 H 123 H 126 H Pulse Rate [ Anterior Bilateral Throughout] Pulse Rate [ From Monitor] Respiratory 13 14 20 Rate Respiratory Rate [Anterior Bilateral Throughout] Blood Pressure 170/78 165/80 164/80 O2 Sat by Pulse 96 95 92 Oximetry 06/21/21 06/21/21 06/21/21 10:46 11:01 11:15 Temperature Pulse Rate 127 H 131 H 131 H Pulse Rate [ Anterior Bilateral Throughout] Pulse Rate [ From Monitor] Respiratory 30 H 21 25 H Rate Respiratory Rate [Anterior Bilateral Throughout] Blood Pressure 135/77 122/80 137/74 O2 Sat by Pulse 94 97 96 Oximetry 06/21/21 06/21/21 06/21/21 11:31 11:45 12:00 Temperature Pulse Rate 132 H 130 H 110 H Pulse Rate [ Anterior Bilateral Throughout] Pulse Rate [ From Monitor] Respiratory 30 H 30 H Rate Respiratory Rate [Anterior Bilateral Throughout] Blood Pressure 151/77 147/76 O2 Sat by Pulse 95 94 94 Oximetry 06/21/21 06/21/21 06/21/21 12:01 12:08 12:15 Temperature 99.3 F Pulse Rate 132 H 130 H Pulse Rate [ Anterior Bilateral Throughout] Pulse Rate [ From Monitor] Respiratory 30 H 28 H Rate Respiratory Rate [Anterior Bilateral Throughout] Blood Pressure 148/70 154/69 O2 Sat by Pulse 94 94 Oximetry 06/21/21 06/21/21 06/21/21 12:31 12:45 13:00 Temperature Pulse Rate 131 H 131 H 131 H Pulse Rate [ Anterior Bilateral Throughout] Pulse Rate [ From Monitor] Respiratory 23 23 30 H Rate Respiratory Rate [Anterior Bilateral Throughout] Blood Pressure 144/70 142/70 134/70 O2 Sat by Pulse 94 94 93 Oximetry 06/21/21 06/21/21 06/21/21 13:15 13:31 13:45 Temperature Pulse Rate 132 H 131 H 133 H Pulse Rate [ Anterior Bilateral Throughout] Pulse Rate [ From Monitor] Respiratory 23 28 H 22 Rate Respiratory Rate [Anterior Bilateral Throughout] Blood Pressure 145/68 142/65 128/65 O2 Sat by Pulse 92 91 91 Oximetry 06/21/21 14:01 Temperature Pulse Rate 135 H Pulse Rate [ Anterior Bilateral Throughout] Pulse Rate [ From Monitor] Respiratory 30 H Rate Respiratory Rate [Anterior Bilateral Throughout] Blood Pressure 144/67 O2 Sat by Pulse 91 Oximetry Constitutional: appears uncomfortable, other (middle aged male with mildly increased respiratory effort at rest, unresponsive, orally intuabted to MVS) Eyes: non-icteric ENT: oropharynx dry Neck: supple, no JVD Effort: mildly labored Ascultation: Bilateral: diminished breath sounds (bases), rhonchi Percussion: Bilateral: not dull Cardiovascular: regular rate and rhythm, other (S1,S2) Gastrointestinal: hypoactive bowel sounds, soft, non-tender, other (distended but very soft) Integumentary: normal Extremities: no cyanosis, no edema, pulses normal, no ischemia or petechiae Neurologic: pupils equal and round, other (unresponsive) Psychiatric: other (flat affect) CBC and BMP: 10/20/21 Unknown 06/25/21 Unknown ABG, PT/INR, D-dimer: ABG ABG pH 7.31 (7.320-7.450) L 06/21/21 04:21 POC ABG pCO2 55.4 mmHg (32.0-48.0) H 06/21/21 04:21 ABG pCO2 70.2 mm Hg 06/20/21 18:00 POC ABG pO2 156.5 mmHg (83-108) H 06/21/21 04:21 ABG pO2 209.0 mm Hg (80.0-90.0) H 06/20/21 18:00 POC ABG HCO3 27.8 06/21/21 04:21 ABG O2 Saturation 99.2 (0-100) 06/21/21 04:21 PT/INR, D-dimer PT 19.2 Sec. (12.2-14.9) H 06/19/21 09:37 INR 1.46 (0.87-1.13) H 06/19/21 09:37 D-Dimer 3584.01 ng/mlDDU (0-234) H 05/27/21 08:09 Abnormal lab findings: Abnormal Labs 05/23/21 05/23/21 05/23/21 18:48 18:48 18:48 WBC 11.8 H RBC 5.18 H Hgb Hct MCV MCH MCHC RDW Plt Count Seg Neuts % (Manual) 84.0 H Lymphocytes % (Manual) Monocytes % (Manual) Nucleated RBC % Seg Neutrophils # Man 9.9 H Lymphocytes # (Manual) PT INR APTT D-Dimer > 79145 H ABG pH POC ABG pCO2 POC ABG pO2 ABG pO2 ABG HCO3 ABG O2 Saturation ABG Base Excess ABG Hemoglobin ABG Oxyhemoglobin ABG Sodium ABG Potassium ABG Chloride ABG Glucose VBG pH Carboxyhemoglobin Sodium Potassium Chloride Carbon Dioxide BUN Creatinine Glucose POC Glucose Lactic Acid 2.30 H* Calcium Phosphorus Magnesium Ferritin AST ALT Ammonia Lactate Dehydrogenase Troponin T C-Reactive Protein Total Protein Albumin Triglycerides LDL Cholesterol Direct HDL Cholesterol Arterial Blood Glucose Arterial Blood Ionized Calcium Urine WBC (Auto) Urine Creatinine Vancomycin Trough Crossmatch 05/23/21 05/23/21 05/23/21 18:48 18:48 18:48 WBC RBC Hgb Hct MCV MCH MCHC RDW Plt Count Seg Neuts % (Manual) Lymphocytes % (Manual) Monocytes % (Manual) Nucleated RBC % Seg Neutrophils # Man Lymphocytes # (Manual) PT INR APTT D-Dimer ABG pH POC ABG pCO2 POC ABG pO2 ABG pO2 ABG HCO3 ABG O2 Saturation ABG Base Excess ABG Hemoglobin ABG Oxyhemoglobin ABG Sodium ABG Potassium ABG Chloride ABG Glucose VBG pH Carboxyhemoglobin Sodium 151 H Potassium 5.1 H Chloride 113.2 H Carbon Dioxide 17 L BUN 180 H Creatinine 4.3 H Glucose 114 H POC Glucose Lactic Acid Calcium Phosphorus Magnesium Ferritin 2000.0 H AST ALT Ammonia 22.0 L Lactate Dehydrogenase 577 H Troponin T C-Reactive Protein 8.80 H Total Protein 9.4 H Albumin 3.0 L Triglycerides LDL Cholesterol Direct HDL Cholesterol Arterial Blood Glucose Arterial Blood Ionized Calcium Urine WBC (Auto) Urine Creatinine Vancomycin Trough Crossmatch 05/23/21 05/24/21 05/24/21 21:06 02:09 02:09 WBC RBC Hgb Hct MCV MCH MCHC RDW Plt Count Seg Neuts % (Manual) Lymphocytes % (Manual) Monocytes % (Manual) Nucleated RBC % Seg Neutrophils # Man Lymphocytes # (Manual) PT INR APTT D-Dimer ABG pH POC ABG pCO2 POC ABG pO2 ABG pO2 ABG HCO3 ABG O2 Saturation ABG Base Excess ABG Hemoglobin ABG Oxyhemoglobin ABG Sodium ABG Potassium ABG Chloride ABG Glucose VBG pH 7.254 L Carboxyhemoglobin Sodium Potassium Chloride Carbon Dioxide BUN Creatinine Glucose POC Glucose Lactic Acid 2.10 H* 2.30 H* Calcium Phosphorus Magnesium Ferritin AST ALT Ammonia Lactate Dehydrogenase Troponin T C-Reactive Protein Total Protein Albumin Triglycerides LDL Cholesterol Direct HDL Cholesterol Arterial Blood Glucose Arterial Blood Ionized Calcium Urine WBC (Auto) Urine Creatinine Vancomycin Trough Crossmatch 05/24/21 05/24/21 05/24/21 13:11 17:34 18:12 WBC RBC Hgb Hct MCV MCH MCHC RDW Plt Count Seg Neuts % (Manual) Lymphocytes % (Manual) Monocytes % (Manual) Nucleated RBC % Seg Neutrophils # Man Lymphocytes # (Manual) PT INR APTT D-Dimer ABG pH POC ABG pCO2 POC ABG pO2 ABG pO2 ABG HCO3 ABG O2 Saturation ABG Base Excess ABG Hemoglobin ABG Oxyhemoglobin ABG Sodium ABG Potassium ABG Chloride ABG Glucose VBG pH Carboxyhemoglobin Sodium 155 H Potassium 6.9 H* D 5.7 H Chloride 121.9 H Carbon Dioxide 20 L BUN 139 H Creatinine 2.7 H Glucose 139 H POC Glucose 153 H Lactic Acid Calcium Phosphorus Magnesium Ferritin AST ALT Ammonia Lactate Dehydrogenase Troponin T C-Reactive Protein Total Protein Albumin Triglycerides LDL Cholesterol Direct HDL Cholesterol Arterial Blood Glucose Arterial Blood Ionized Calcium Urine WBC (Auto) Urine Creatinine Vancomycin Trough Crossmatch 05/25/21 05/25/21 05/26/21 11:33 11:33 03:15 WBC 13.8 H RBC 5.06 H Hgb Hct MCV MCH MCHC RDW Plt Count Seg Neuts % (Manual) Lymphocytes % (Manual) Monocytes % (Manual) Nucleated RBC % Seg Neutrophils # Man Lymphocytes # (Manual) PT INR APTT D-Dimer ABG pH POC ABG pCO2 POC ABG pO2 ABG pO2 ABG HCO3 ABG O2 Saturation ABG Base Excess ABG Hemoglobin ABG Oxyhemoglobin ABG Sodium ABG Potassium ABG Chloride ABG Glucose VBG pH Carboxyhemoglobin Sodium 164 H* D 166 H* Potassium 5.4 H 5.5 H Chloride 131.3 H 129.2 H Carbon Dioxide BUN 109 H 102 H Creatinine 1.9 H 1.8 H Glucose 117 H 113 H POC Glucose Lactic Acid Calcium Phosphorus Magnesium Ferritin AST ALT Ammonia Lactate Dehydrogenase 711 H Troponin T C-Reactive Protein 7.90 H Total Protein Albumin Triglycerides LDL Cholesterol Direct HDL Cholesterol Arterial Blood Glucose Arterial Blood Ionized Calcium Urine WBC (Auto) Urine Creatinine Vancomycin Trough Crossmatch 05/26/21 05/26/21 05/26/21 03:15 03:15 03:15 WBC 13.1 H RBC 5.43 H Hgb 15.3 H Hct 48.5 H MCV MCH MCHC RDW 15.4 H Plt Count Seg Neuts % (Manual) Lymphocytes % (Manual) Monocytes % (Manual) Nucleated RBC % Seg Neutrophils # Man Lymphocytes # (Manual) PT INR APTT D-Dimer 6229.14 H ABG pH POC ABG pCO2 POC ABG pO2 ABG pO2 ABG HCO3 ABG O2 Saturation ABG Base Excess ABG Hemoglobin ABG Oxyhemoglobin ABG Sodium ABG Potassium ABG Chloride ABG Glucose VBG pH Carboxyhemoglobin Sodium Potassium Chloride Carbon Dioxide BUN Creatinine Glucose POC Glucose Lactic Acid Calcium Phosphorus Magnesium Ferritin 2991.0 H AST ALT Ammonia Lactate Dehydrogenase Troponin T C-Reactive Protein Total Protein Albumin Triglycerides LDL Cholesterol Direct HDL Cholesterol Arterial Blood Glucose Arterial Blood Ionized Calcium Urine WBC (Auto) Urine Creatinine Vancomycin Trough Crossmatch 05/27/21 05/27/21 05/27/21 08:09 08:09 08:09 WBC 12.4 H RBC 5.27 H Hgb Hct 46.6 H MCV MCH MCHC 31 L RDW 15.7 H Plt Count Seg Neuts % (Manual) Lymphocytes % (Manual) Monocytes % (Manual) Nucleated RBC % Seg Neutrophils # Man Lymphocytes # (Manual) PT INR APTT D-Dimer 3584.01 H ABG pH POC ABG pCO2 POC ABG pO2 ABG pO2 ABG HCO3 ABG O2 Saturation ABG Base Excess ABG Hemoglobin ABG Oxyhemoglobin ABG Sodium ABG Potassium ABG Chloride ABG Glucose VBG pH Carboxyhemoglobin Sodium 174 H* Potassium Chloride 136.9 H Carbon Dioxide BUN 90 H Creatinine 1.8 H Glucose POC Glucose Lactic Acid Calcium Phosphorus Magnesium Ferritin AST ALT Ammonia Lactate Dehydrogenase 642 H Troponin T C-Reactive Protein 5.20 H Total Protein Albumin Triglycerides LDL Cholesterol Direct HDL Cholesterol Arterial Blood Glucose Arterial Blood Ionized Calcium Urine WBC (Auto) Urine Creatinine Vancomycin Trough Crossmatch 05/27/21 05/28/21 05/28/21 08:09 07:31 07:31 WBC RBC Hgb Hct MCV MCH 27 L MCHC 31 L RDW Plt Count Seg Neuts % (Manual) 88.0 H Lymphocytes % (Manual) 11.0 L Monocytes % (Manual) Nucleated RBC % Seg Neutrophils # Man 8.3 H Lymphocytes # (Manual) 1.0 L PT INR APTT D-Dimer ABG pH POC ABG pCO2 POC ABG pO2 ABG pO2 ABG HCO3 ABG O2 Saturation ABG Base Excess ABG Hemoglobin ABG Oxyhemoglobin ABG Sodium ABG Potassium ABG Chloride ABG Glucose VBG pH Carboxyhemoglobin Sodium 162 H* D Potassium Chloride 125.8 H Carbon Dioxide BUN 72 H Creatinine 1.6 H Glucose 131 H POC Glucose Lactic Acid Calcium Phosphorus Magnesium 3.00 H Ferritin 2742.0 H AST ALT Ammonia Lactate Dehydrogenase Troponin T C-Reactive Protein Total Protein Albumin Triglycerides LDL Cholesterol Direct HDL Cholesterol Arterial Blood Glucose Arterial Blood Ionized Calcium Urine WBC (Auto) Urine Creatinine Vancomycin Trough Crossmatch 05/29/21 05/29/21 05/29/21 06:40 06:40 17:58 WBC 14.1 H RBC Hgb Hct MCV MCH 27 L MCHC 31 L RDW Plt Count Seg Neuts % (Manual) 85.0 H Lymphocytes % (Manual) 9.0 L Monocytes % (Manual) Nucleated RBC % 1.0 H Seg Neutrophils # Man 12.0 H Lymphocytes # (Manual) PT INR APTT D-Dimer ABG pH 7.505 H POC ABG pCO2 30.3 L POC ABG pO2 128.1 H ABG pO2 ABG HCO3 ABG O2 Saturation ABG Base Excess ABG Hemoglobin 11.9 L ABG Oxyhemoglobin ABG Sodium ABG Potassium ABG Chloride 113.0 H ABG Glucose 110 H VBG pH Carboxyhemoglobin Sodium 148 H D Potassium Chloride 111.3 H Carbon Dioxide 20 L BUN 45 H Creatinine Glucose POC Glucose Lactic Acid Calcium Phosphorus 2.10 L D Magnesium Ferritin AST ALT Ammonia Lactate Dehydrogenase Troponin T C-Reactive Protein Total Protein Albumin Triglycerides LDL Cholesterol Direct HDL Cholesterol Arterial Blood Glucose 110 H Arterial Blood Ionized Calcium 4.5 L Urine WBC (Auto) Urine Creatinine Vancomycin Trough Crossmatch 05/30/21 05/30/21 05/30/21 01:00 06:06 13:48 WBC RBC Hgb Hct MCV MCH MCHC RDW Plt Count Seg Neuts % (Manual) Lymphocytes % (Manual) Monocytes % (Manual) Nucleated RBC % Seg Neutrophils # Man Lymphocytes # (Manual) PT INR APTT D-Dimer ABG pH POC ABG pCO2 POC ABG pO2 ABG pO2 90.9 H ABG HCO3 ABG O2 Saturation ABG Base Excess ABG Hemoglobin 11.8 L ABG Oxyhemoglobin ABG Sodium ABG Potassium ABG Chloride ABG Glucose VBG pH Carboxyhemoglobin Sodium 150 H Potassium Chloride 117.6 H Carbon Dioxide BUN 40 H Creatinine Glucose POC Glucose Lactic Acid Calcium 8.3 L Phosphorus Magnesium Ferritin AST ALT Ammonia Lactate Dehydrogenase Troponin T C-Reactive Protein Total Protein Albumin Triglycerides LDL Cholesterol Direct HDL Cholesterol Arterial Blood Glucose Arterial Blood Ionized Calcium Urine WBC (Auto) 12.0 H Urine Creatinine Vancomycin Trough Crossmatch 05/30/21 05/31/21 05/31/21 22:32 02:22 02:22 WBC RBC Hgb 11.2 L Hct 34.8 L MCV MCH MCHC RDW Plt Count 127 L Seg Neuts % (Manual) 97.0 H Lymphocytes % (Manual) Monocytes % (Manual) Nucleated RBC % Seg Neutrophils # Man 10.5 H Lymphocytes # (Manual) 0.0 L PT INR APTT D-Dimer ABG pH 7.454 H POC ABG pCO2 POC ABG pO2 ABG pO2 141.8 H ABG HCO3 19.9 L ABG O2 Saturation ABG Base Excess -2.7 L ABG Hemoglobin ABG Oxyhemoglobin ABG Sodium ABG Potassium ABG Chloride ABG Glucose VBG pH Carboxyhemoglobin Sodium 152 H Potassium Chloride 118.9 H Carbon Dioxide 19 L BUN 48 H Creatinine 1.5 H Glucose 101 H POC Glucose Lactic Acid Calcium 8.3 L Phosphorus Magnesium Ferritin AST ALT Ammonia Lactate Dehydrogenase Troponin T C-Reactive Protein Total Protein Albumin Triglycerides LDL Cholesterol Direct HDL Cholesterol Arterial Blood Glucose Arterial Blood Ionized Calcium Urine WBC (Auto) Urine Creatinine Vancomycin Trough Crossmatch 05/31/21 05/31/21 06/01/21 11:42 21:28 07:10 WBC RBC Hgb Hct MCV MCH MCHC RDW Plt Count Seg Neuts % (Manual) Lymphocytes % (Manual) Monocytes % (Manual) Nucleated RBC % Seg Neutrophils # Man Lymphocytes # (Manual) PT INR APTT D-Dimer ABG pH POC ABG pCO2 POC ABG pO2 ABG pO2 ABG HCO3 ABG O2 Saturation ABG Base Excess ABG Hemoglobin ABG Oxyhemoglobin ABG Sodium ABG Potassium ABG Chloride ABG Glucose VBG pH Carboxyhemoglobin Sodium 150 H Potassium Chloride 115.7 H Carbon Dioxide BUN 47 H Creatinine Glucose 115 H POC Glucose 161 H Lactic Acid Calcium Phosphorus Magnesium 2.50 H Ferritin AST ALT Ammonia Lactate Dehydrogenase Troponin T C-Reactive Protein Total Protein Albumin Triglycerides LDL Cholesterol Direct HDL Cholesterol Arterial Blood Glucose Arterial Blood Ionized Calcium Urine WBC (Auto) Urine Creatinine Vancomycin Trough 20.2 H Crossmatch 06/01/21 06/01/21 06/01/21 07:10 07:54 10:39 WBC RBC Hgb 10.7 L Hct 33.5 L MCV MCH MCHC RDW Plt Count Seg Neuts % (Manual) 92.0 H Lymphocytes % (Manual) 4.0 L Monocytes % (Manual) Nucleated RBC % Seg Neutrophils # Man Lymphocytes # (Manual) 0.3 L PT INR APTT D-Dimer ABG pH POC ABG pCO2 POC ABG pO2 ABG pO2 ABG HCO3 ABG O2 Saturation ABG Base Excess ABG Hemoglobin ABG Oxyhemoglobin ABG Sodium ABG Potassium ABG Chloride ABG Glucose VBG pH Carboxyhemoglobin Sodium 152 H Potassium Chloride 117.6 H Carbon Dioxide BUN 50 H Creatinine Glucose 140 H POC Glucose 127 H Lactic Acid Calcium 8.3 L Phosphorus Magnesium Ferritin AST ALT Ammonia Lactate Dehydrogenase Troponin T C-Reactive Protein Total Protein Albumin Triglycerides LDL Cholesterol Direct HDL Cholesterol Arterial Blood Glucose Arterial Blood Ionized Calcium Urine WBC (Auto) Urine Creatinine Vancomycin Trough Crossmatch 06/01/21 06/01/21 06/01/21 11:11 16:16 21:45 WBC RBC Hgb Hct MCV MCH MCHC RDW Plt Count Seg Neuts % (Manual) Lymphocytes % (Manual) Monocytes % (Manual) Nucleated RBC % Seg Neutrophils # Man Lymphocytes # (Manual) PT INR APTT D-Dimer ABG pH POC ABG pCO2 POC ABG pO2 ABG pO2 ABG HCO3 ABG O2 Saturation ABG Base Excess ABG Hemoglobin ABG Oxyhemoglobin ABG Sodium ABG Potassium ABG Chloride ABG Glucose VBG pH Carboxyhemoglobin Sodium Potassium Chloride Carbon Dioxide BUN Creatinine Glucose POC Glucose 120 H 129 H 150 H Lactic Acid Calcium Phosphorus Magnesium Ferritin AST ALT Ammonia Lactate Dehydrogenase Troponin T C-Reactive Protein Total Protein Albumin Triglycerides LDL Cholesterol Direct HDL Cholesterol Arterial Blood Glucose Arterial Blood Ionized Calcium Urine WBC (Auto) Urine Creatinine Vancomycin Trough Crossmatch 06/02/21 06/02/21 06/02/21 06:53 06:53 07:52 WBC RBC Hgb 10.4 L Hct 32.4 L MCV MCH 27 L MCHC RDW Plt Count Seg Neuts % (Manual) 93.0 H Lymphocytes % (Manual) 3.0 L Monocytes % (Manual) Nucleated RBC % Seg Neutrophils # Man Lymphocytes # (Manual) 0.2 L PT INR APTT D-Dimer ABG pH POC ABG pCO2 POC ABG pO2 ABG pO2 ABG HCO3 ABG O2 Saturation ABG Base Excess ABG Hemoglobin ABG Oxyhemoglobin ABG Sodium ABG Potassium ABG Chloride ABG Glucose VBG pH Carboxyhemoglobin Sodium 149 H Potassium Chloride 112.6 H Carbon Dioxide BUN 54 H Creatinine Glucose 123 H POC Glucose 116 H Lactic Acid Calcium 8.2 L Phosphorus Magnesium Ferritin AST ALT Ammonia Lactate Dehydrogenase Troponin T C-Reactive Protein Total Protein Albumin Triglycerides LDL Cholesterol Direct HDL Cholesterol Arterial Blood Glucose Arterial Blood Ionized Calcium Urine WBC (Auto) Urine Creatinine Vancomycin Trough Crossmatch 06/03/21 06/03/21 06/03/21 05:57 05:57 21:23 WBC RBC Hgb 10.7 L Hct 33.0 L MCV 83 L MCH 27 L MCHC RDW Plt Count Seg Neuts % (Manual) 88.0 H Lymphocytes % (Manual) 8.0 L Monocytes % (Manual) Nucleated RBC % 2.0 H Seg Neutrophils # Man Lymphocytes # (Manual) 0.6 L PT INR APTT D-Dimer ABG pH POC ABG pCO2 POC ABG pO2 39.0 L ABG pO2 ABG HCO3 ABG O2 Saturation ABG Base Excess ABG Hemoglobin ABG Oxyhemoglobin 69.1 L ABG Sodium 134.1 L ABG Potassium ABG Chloride ABG Glucose 135 H VBG pH Carboxyhemoglobin Sodium Potassium Chloride Carbon Dioxide BUN 36 H Creatinine Glucose 102 H POC Glucose Lactic Acid Calcium 8.0 L Phosphorus 2.20 L D Magnesium Ferritin AST ALT Ammonia Lactate Dehydrogenase Troponin T C-Reactive Protein Total Protein Albumin Triglycerides LDL Cholesterol Direct HDL Cholesterol Arterial Blood Glucose 135 H Arterial Blood Ionized Calcium Urine WBC (Auto) Urine Creatinine Vancomycin Trough Crossmatch 06/04/21 06/04/21 06/04/21 07:04 07:04 17:42 WBC RBC Hgb 11.3 L Hct 34.9 L MCV MCH 27 L MCHC RDW Plt Count Seg Neuts % (Manual) Lymphocytes % (Manual) 5.0 L Monocytes % (Manual) Nucleated RBC % Seg Neutrophils # Man 8.4 H Lymphocytes # (Manual) 0.5 L PT INR APTT D-Dimer ABG pH POC ABG pCO2 POC ABG pO2 ABG pO2 ABG HCO3 ABG O2 Saturation ABG Base Excess ABG Hemoglobin ABG Oxyhemoglobin ABG Sodium ABG Potassium ABG Chloride ABG Glucose VBG pH Carboxyhemoglobin Sodium Potassium Chloride Carbon Dioxide BUN 27 H Creatinine Glucose POC Glucose 136 H Lactic Acid Calcium 8.2 L Phosphorus Magnesium Ferritin AST ALT Ammonia Lactate Dehydrogenase Troponin T C-Reactive Protein Total Protein Albumin Triglycerides LDL Cholesterol Direct HDL Cholesterol Arterial Blood Glucose Arterial Blood Ionized Calcium Urine WBC (Auto) Urine Creatinine Vancomycin Trough Crossmatch 06/05/21 06/05/21 06/05/21 05:10 12:32 15:45 WBC RBC Hgb Hct MCV MCH MCHC RDW Plt Count Seg Neuts % (Manual) Lymphocytes % (Manual) Monocytes % (Manual) Nucleated RBC % Seg Neutrophils # Man Lymphocytes # (Manual) PT INR APTT D-Dimer ABG pH POC ABG pCO2 POC ABG pO2 ABG pO2 ABG HCO3 ABG O2 Saturation ABG Base Excess ABG Hemoglobin ABG Oxyhemoglobin ABG Sodium ABG Potassium ABG Chloride ABG Glucose VBG pH Carboxyhemoglobin Sodium Potassium 3.5 L Chloride Carbon Dioxide BUN 35 H Creatinine Glucose 130 H POC Glucose 122 H 119 H Lactic Acid Calcium 8.2 L Phosphorus Magnesium Ferritin AST ALT Ammonia Lactate Dehydrogenase Troponin T C-Reactive Protein Total Protein Albumin Triglycerides LDL Cholesterol Direct HDL Cholesterol Arterial Blood Glucose Arterial Blood Ionized Calcium Urine WBC (Auto) Urine Creatinine Vancomycin Trough Crossmatch 06/05/21 06/05/21 06/06/21 20:06 21:27 00:04 WBC RBC Hgb Hct MCV MCH MCHC RDW Plt Count Seg Neuts % (Manual) Lymphocytes % (Manual) Monocytes % (Manual) Nucleated RBC % Seg Neutrophils # Man Lymphocytes # (Manual) PT INR APTT D-Dimer ABG pH 7.456 H POC ABG pCO2 POC ABG pO2 ABG pO2 ABG HCO3 ABG O2 Saturation ABG Base Excess ABG Hemoglobin 10.3 L ABG Oxyhemoglobin ABG Sodium ABG Potassium 3.1 L ABG Chloride ABG Glucose 125 H VBG pH Carboxyhemoglobin 0.3 L Sodium Potassium Chloride Carbon Dioxide BUN Creatinine Glucose POC Glucose 113 H Lactic Acid Calcium Phosphorus Magnesium Ferritin AST ALT Ammonia Lactate Dehydrogenase Troponin T C-Reactive Protein 19.60 H Total Protein Albumin Triglycerides LDL Cholesterol Direct HDL Cholesterol Arterial Blood Glucose 125 H Arterial Blood Ionized Calcium Urine WBC (Auto) Urine Creatinine Vancomycin Trough Crossmatch 06/06/21 06/06/21 06/07/21 04:35 22:37 05:54 WBC RBC Hgb Hct MCV MCH MCHC RDW Plt Count Seg Neuts % (Manual) Lymphocytes % (Manual) Monocytes % (Manual) Nucleated RBC % Seg Neutrophils # Man Lymphocytes # (Manual) PT INR APTT D-Dimer ABG pH POC ABG pCO2 POC ABG pO2 ABG pO2 ABG HCO3 ABG O2 Saturation ABG Base Excess ABG Hemoglobin ABG Oxyhemoglobin ABG Sodium ABG Potassium ABG Chloride ABG Glucose VBG pH Carboxyhemoglobin Sodium Potassium Chloride Carbon Dioxide BUN 43 H Creatinine Glucose POC Glucose 114 H 130 H Lactic Acid Calcium 7.6 L Phosphorus Magnesium Ferritin AST ALT Ammonia Lactate Dehydrogenase Troponin T C-Reactive Protein Total Protein Albumin Triglycerides LDL Cholesterol Direct HDL Cholesterol Arterial Blood Glucose Arterial Blood Ionized Calcium Urine WBC (Auto) Urine Creatinine Vancomycin Trough Crossmatch 06/07/21 06/07/21 06/07/21 07:32 10:03 11:36 WBC RBC 3.63 L Hgb 9.8 L Hct 30.3 L MCV 83 L MCH 27 L MCHC RDW Plt Count Seg Neuts % (Manual) Lymphocytes % (Manual) Monocytes % (Manual) Nucleated RBC % Seg Neutrophils # Man Lymphocytes # (Manual) PT INR APTT D-Dimer ABG pH POC ABG pCO2 POC ABG pO2 ABG pO2 ABG HCO3 ABG O2 Saturation ABG Base Excess ABG Hemoglobin ABG Oxyhemoglobin ABG Sodium ABG Potassium ABG Chloride ABG Glucose VBG pH Carboxyhemoglobin Sodium Potassium 3.2 L Chloride 108.5 H Carbon Dioxide BUN 36 H Creatinine Glucose 139 H POC Glucose 125 H Lactic Acid Calcium 8.0 L Phosphorus Magnesium Ferritin AST ALT Ammonia Lactate Dehydrogenase Troponin T C-Reactive Protein Total Protein Albumin Triglycerides LDL Cholesterol Direct HDL Cholesterol Arterial Blood Glucose Arterial Blood Ionized Calcium Urine WBC (Auto) Urine Creatinine Vancomycin Trough Crossmatch 06/07/21 06/07/21 06/08/21 17:54 22:14 07:18 WBC RBC Hgb Hct MCV MCH MCHC RDW Plt Count Seg Neuts % (Manual) Lymphocytes % (Manual) Monocytes % (Manual) Nucleated RBC % Seg Neutrophils # Man Lymphocytes # (Manual) PT INR APTT D-Dimer ABG pH POC ABG pCO2 POC ABG pO2 ABG pO2 ABG HCO3 ABG O2 Saturation ABG Base Excess ABG Hemoglobin ABG Oxyhemoglobin ABG Sodium ABG Potassium ABG Chloride ABG Glucose VBG pH Carboxyhemoglobin Sodium 149 H Potassium Chloride 110.2 H Carbon Dioxide BUN 31 H Creatinine Glucose 131 H POC Glucose 121 H 131 H Lactic Acid Calcium 8.1 L Phosphorus Magnesium Ferritin AST ALT Ammonia Lactate Dehydrogenase Troponin T C-Reactive Protein Total Protein Albumin Triglycerides LDL Cholesterol Direct HDL Cholesterol Arterial Blood Glucose Arterial Blood Ionized Calcium Urine WBC (Auto) Urine Creatinine Vancomycin Trough Crossmatch 06/08/21 06/08/21 06/08/21 07:45 12:07 18:02 WBC RBC Hgb Hct MCV MCH MCHC RDW Plt Count Seg Neuts % (Manual) Lymphocytes % (Manual) Monocytes % (Manual) Nucleated RBC % Seg Neutrophils # Man Lymphocytes # (Manual) PT INR APTT D-Dimer ABG pH POC ABG pCO2 POC ABG pO2 ABG pO2 ABG HCO3 ABG O2 Saturation ABG Base Excess ABG Hemoglobin ABG Oxyhemoglobin ABG Sodium ABG Potassium ABG Chloride ABG Glucose VBG pH Carboxyhemoglobin Sodium Potassium Chloride Carbon Dioxide BUN Creatinine Glucose POC Glucose 120 H 127 H 148 H Lactic Acid Calcium Phosphorus Magnesium Ferritin AST ALT Ammonia Lactate Dehydrogenase Troponin T C-Reactive Protein Total Protein Albumin Triglycerides LDL Cholesterol Direct HDL Cholesterol Arterial Blood Glucose Arterial Blood Ionized Calcium Urine WBC (Auto) Urine Creatinine Vancomycin Trough Crossmatch 06/09/21 06/09/21 06/09/21 05:51 05:51 11:37 WBC 3.9 L RBC 3.38 L Hgb 9.4 L Hct 28.5 L MCV MCH MCHC RDW Plt Count Seg Neuts % (Manual) Lymphocytes % (Manual) Monocytes % (Manual) Nucleated RBC % Seg Neutrophils # Man Lymphocytes # (Manual) PT INR APTT D-Dimer ABG pH POC ABG pCO2 POC ABG pO2 ABG pO2 ABG HCO3 ABG O2 Saturation ABG Base Excess ABG Hemoglobin ABG Oxyhemoglobin ABG Sodium ABG Potassium ABG Chloride ABG Glucose VBG pH Carboxyhemoglobin Sodium Potassium Chloride 108.4 H Carbon Dioxide BUN 32 H Creatinine Glucose 137 H POC Glucose 115 H Lactic Acid Calcium 7.5 L Phosphorus Magnesium Ferritin AST 55 H ALT Ammonia Lactate Dehydrogenase Troponin T C-Reactive Protein 4.10 H Total Protein 5.6 L Albumin 2.0 L Triglycerides LDL Cholesterol Direct HDL Cholesterol Arterial Blood Glucose Arterial Blood Ionized Calcium Urine WBC (Auto) Urine Creatinine Vancomycin Trough Crossmatch 06/09/21 06/09/21 06/10/21 17:32 22:18 01:52 WBC RBC 3.62 L Hgb 9.9 L Hct 29.8 L MCV 82 L MCH 27 L MCHC RDW Plt Count Seg Neuts % (Manual) Lymphocytes % (Manual) Monocytes % (Manual) Nucleated RBC % Seg Neutrophils # Man Lymphocytes # (Manual) PT INR APTT D-Dimer ABG pH POC ABG pCO2 POC ABG pO2 ABG pO2 ABG HCO3 ABG O2 Saturation ABG Base Excess ABG Hemoglobin ABG Oxyhemoglobin ABG Sodium ABG Potassium ABG Chloride ABG Glucose VBG pH Carboxyhemoglobin Sodium Potassium Chloride Carbon Dioxide BUN Creatinine Glucose POC Glucose 113 H 110 H Lactic Acid Calcium Phosphorus Magnesium Ferritin AST ALT Ammonia Lactate Dehydrogenase Troponin T C-Reactive Protein Total Protein Albumin Triglycerides LDL Cholesterol Direct HDL Cholesterol Arterial Blood Glucose Arterial Blood Ionized Calcium Urine WBC (Auto) Urine Creatinine Vancomycin Trough Crossmatch 06/10/21 06/10/21 06/10/21 01:52 16:14 22:45 WBC RBC Hgb Hct MCV MCH MCHC RDW Plt Count Seg Neuts % (Manual) Lymphocytes % (Manual) Monocytes % (Manual) Nucleated RBC % Seg Neutrophils # Man Lymphocytes # (Manual) PT INR APTT D-Dimer ABG pH POC ABG pCO2 POC ABG pO2 ABG pO2 ABG HCO3 ABG O2 Saturation ABG Base Excess ABG Hemoglobin ABG Oxyhemoglobin ABG Sodium ABG Potassium ABG Chloride ABG Glucose VBG pH Carboxyhemoglobin Sodium Potassium Chloride 108.2 H Carbon Dioxide BUN 32 H Creatinine 1.4 H Glucose POC Glucose 111 H 107 H Lactic Acid Calcium 7.8 L Phosphorus Magnesium Ferritin AST 55 H ALT Ammonia Lactate Dehydrogenase Troponin T C-Reactive Protein Total Protein 5.6 L Albumin 1.9 L Triglycerides LDL Cholesterol Direct HDL Cholesterol Arterial Blood Glucose Arterial Blood Ionized Calcium Urine WBC (Auto) Urine Creatinine Vancomycin Trough Crossmatch 06/11/21 06/11/21 06/11/21 05:51 05:51 05:51 WBC RBC 3.35 L Hgb 9.1 L Hct 28.1 L MCV MCH 27 L MCHC RDW Plt Count 117 L Seg Neuts % (Manual) 93.0 H Lymphocytes % (Manual) 1.0 L Monocytes % (Manual) Nucleated RBC % Seg Neutrophils # Man Lymphocytes # (Manual) 0.0 L PT INR APTT D-Dimer ABG pH POC ABG pCO2 POC ABG pO2 ABG pO2 ABG HCO3 ABG O2 Saturation ABG Base Excess ABG Hemoglobin ABG Oxyhemoglobin ABG Sodium ABG Potassium ABG Chloride ABG Glucose VBG pH Carboxyhemoglobin Sodium 146 H Potassium Chloride 110.9 H Carbon Dioxide BUN 40 H Creatinine Glucose 119 H POC Glucose Lactic Acid Calcium 7.8 L Phosphorus Magnesium Ferritin AST ALT Ammonia Lactate Dehydrogenase Troponin T C-Reactive Protein Total Protein Albumin Triglycerides LDL Cholesterol Direct HDL Cholesterol Arterial Blood Glucose Arterial Blood Ionized Calcium Urine WBC (Auto) Urine Creatinine Vancomycin Trough 22.6 H Crossmatch 06/11/21 06/11/21 06/11/21 08:28 11:36 15:47 WBC RBC Hgb Hct MCV MCH MCHC RDW Plt Count Seg Neuts % (Manual) Lymphocytes % (Manual) Monocytes % (Manual) Nucleated RBC % Seg Neutrophils # Man Lymphocytes # (Manual) PT INR APTT D-Dimer ABG pH POC ABG pCO2 POC ABG pO2 ABG pO2 ABG HCO3 ABG O2 Saturation ABG Base Excess ABG Hemoglobin ABG Oxyhemoglobin ABG Sodium ABG Potassium ABG Chloride ABG Glucose VBG pH Carboxyhemoglobin Sodium Potassium Chloride Carbon Dioxide BUN Creatinine Glucose POC Glucose 109 H 149 H 139 H Lactic Acid Calcium Phosphorus Magnesium Ferritin AST ALT Ammonia Lactate Dehydrogenase Troponin T C-Reactive Protein Total Protein Albumin Triglycerides LDL Cholesterol Direct HDL Cholesterol Arterial Blood Glucose Arterial Blood Ionized Calcium Urine WBC (Auto) Urine Creatinine Vancomycin Trough Crossmatch 06/11/21 06/12/21 06/12/21 21:42 04:00 04:00 WBC 4.0 L RBC 3.50 L Hgb 9.4 L Hct 29.9 L MCV MCH 27 L MCHC 31 L RDW 15.3 H Plt Count 126 L Seg Neuts % (Manual) 88.0 H Lymphocytes % (Manual) Monocytes % (Manual) 12.0 H Nucleated RBC % Seg Neutrophils # Man Lymphocytes # (Manual) 0.0 L PT INR APTT D-Dimer ABG pH POC ABG pCO2 POC ABG pO2 ABG pO2 ABG HCO3 ABG O2 Saturation ABG Base Excess ABG Hemoglobin ABG Oxyhemoglobin ABG Sodium ABG Potassium ABG Chloride ABG Glucose VBG pH Carboxyhemoglobin Sodium 149 H Potassium Chloride 114.1 H Carbon Dioxide BUN 37 H Creatinine Glucose 137 H POC Glucose 124 H Lactic Acid Calcium 8.0 L Phosphorus Magnesium Ferritin AST ALT Ammonia Lactate Dehydrogenase Troponin T C-Reactive Protein Total Protein Albumin Triglycerides LDL Cholesterol Direct HDL Cholesterol Arterial Blood Glucose Arterial Blood Ionized Calcium Urine WBC (Auto) Urine Creatinine Vancomycin Trough Crossmatch 06/12/21 06/13/21 06/13/21 06:37 00:14 06:05 WBC 4.3 L RBC 3.39 L Hgb 9.2 L Hct 28.6 L MCV MCH 27 L MCHC RDW 15.3 H Plt Count 107 L Seg Neuts % (Manual) 77.0 H Lymphocytes % (Manual) 1.0 L Monocytes % (Manual) Nucleated RBC % 1.0 H Seg Neutrophils # Man Lymphocytes # (Manual) 0.0 L PT INR APTT D-Dimer ABG pH POC ABG pCO2 POC ABG pO2 ABG pO2 ABG HCO3 ABG O2 Saturation ABG Base Excess ABG Hemoglobin ABG Oxyhemoglobin ABG Sodium ABG Potassium ABG Chloride ABG Glucose VBG pH Carboxyhemoglobin Sodium Potassium Chloride Carbon Dioxide BUN Creatinine Glucose POC Glucose 128 H 149 H Lactic Acid Calcium Phosphorus Magnesium Ferritin AST ALT Ammonia Lactate Dehydrogenase Troponin T C-Reactive Protein Total Protein Albumin Triglycerides LDL Cholesterol Direct HDL Cholesterol Arterial Blood Glucose Arterial Blood Ionized Calcium Urine WBC (Auto) Urine Creatinine Vancomycin Trough Crossmatch 06/13/21 06/13/21 06/14/21 06:05 11:51 04:29 WBC 4.2 L RBC 3.21 L Hgb 8.7 L Hct 26.7 L MCV 83 L MCH 27 L MCHC RDW 15.3 H Plt Count 87 L Seg Neuts % (Manual) 96 H Lymphocytes % (Manual) 2 L Monocytes % (Manual) Nucleated RBC % Seg Neutrophils # Man Lymphocytes # (Manual) 0.0 L PT INR APTT D-Dimer ABG pH POC ABG pCO2 POC ABG pO2 48.3 L ABG pO2 ABG HCO3 ABG O2 Saturation ABG Base Excess ABG Hemoglobin 10.7 L ABG Oxyhemoglobin 84.1 L ABG Sodium 145.5 H ABG Potassium ABG Chloride 116.0 H ABG Glucose VBG pH Carboxyhemoglobin Sodium 146 H Potassium 3.5 L Chloride 112.3 H Carbon Dioxide BUN 38 H Creatinine Glucose 112 H POC Glucose Lactic Acid Calcium 8.1 L Phosphorus Magnesium Ferritin AST ALT Ammonia Lactate Dehydrogenase Troponin T C-Reactive Protein Total Protein Albumin Triglycerides LDL Cholesterol Direct HDL Cholesterol Arterial Blood Glucose Arterial Blood Ionized Calcium Urine WBC (Auto) Urine Creatinine Vancomycin Trough Crossmatch 06/14/21 06/14/21 06/14/21 04:29 06:17 23:51 WBC RBC Hgb Hct MCV MCH MCHC RDW Plt Count Seg Neuts % (Manual) Lymphocytes % (Manual) Monocytes % (Manual) Nucleated RBC % Seg Neutrophils # Man Lymphocytes # (Manual) PT INR APTT D-Dimer ABG pH POC ABG pCO2 POC ABG pO2 ABG pO2 ABG HCO3 ABG O2 Saturation ABG Base Excess ABG Hemoglobin ABG Oxyhemoglobin ABG Sodium ABG Potassium ABG Chloride ABG Glucose VBG pH Carboxyhemoglobin Sodium 148 H Potassium Chloride 115.3 H Carbon Dioxide BUN 40 H Creatinine Glucose 124 H POC Glucose 106 H 135 H Lactic Acid Calcium 8.2 L Phosphorus Magnesium Ferritin AST ALT Ammonia Lactate Dehydrogenase Troponin T C-Reactive Protein Total Protein Albumin Triglycerides LDL Cholesterol Direct HDL Cholesterol Arterial Blood Glucose Arterial Blood Ionized Calcium Urine WBC (Auto) Urine Creatinine Vancomycin Trough Crossmatch 06/15/21 06/15/21 06/15/21 05:23 05:53 05:53 WBC 3.8 L RBC 2.94 L Hgb 8.0 L Hct 24.0 L MCV 81 L MCH 27 L MCHC RDW 15.6 H Plt Count 87 L Seg Neuts % (Manual) 95.0 H Lymphocytes % (Manual) 1.0 L Monocytes % (Manual) Nucleated RBC % 1.0 H Seg Neutrophils # Man Lymphocytes # (Manual) 0.0 L PT INR APTT D-Dimer ABG pH POC ABG pCO2 POC ABG pO2 ABG pO2 ABG HCO3 ABG O2 Saturation ABG Base Excess ABG Hemoglobin ABG Oxyhemoglobin ABG Sodium ABG Potassium ABG Chloride ABG Glucose VBG pH Carboxyhemoglobin Sodium Potassium Chloride 110.5 H Carbon Dioxide BUN 43 H Creatinine Glucose 143 H POC Glucose 134 H Lactic Acid Calcium 8.1 L Phosphorus 2.10 L D Magnesium Ferritin AST ALT Ammonia Lactate Dehydrogenase Troponin T C-Reactive Protein Total Protein Albumin Triglycerides LDL Cholesterol Direct HDL Cholesterol Arterial Blood Glucose Arterial Blood Ionized Calcium Urine WBC (Auto) Urine Creatinine Vancomycin Trough Crossmatch 06/16/21 06/16/21 06/16/21 05:22 05:59 05:59 WBC 3.4 L RBC 3.34 L Hgb 9.0 L Hct 27.9 L MCV MCH 27 L MCHC RDW 15.5 H Plt Count 72 L Seg Neuts % (Manual) 97.0 H Lymphocytes % (Manual) Monocytes % (Manual) Nucleated RBC % Seg Neutrophils # Man Lymphocytes # (Manual) 0.0 L PT INR APTT D-Dimer ABG pH POC ABG pCO2 POC ABG pO2 ABG pO2 ABG HCO3 ABG O2 Saturation ABG Base Excess ABG Hemoglobin ABG Oxyhemoglobin ABG Sodium ABG Potassium ABG Chloride ABG Glucose VBG pH Carboxyhemoglobin Sodium Potassium Chloride 108.8 H Carbon Dioxide BUN 53 H Creatinine 1.4 H Glucose 160 H POC Glucose 141 H Lactic Acid Calcium 8.1 L Phosphorus Magnesium Ferritin AST ALT Ammonia Lactate Dehydrogenase Troponin T C-Reactive Protein Total Protein Albumin Triglycerides LDL Cholesterol Direct HDL Cholesterol Arterial Blood Glucose Arterial Blood Ionized Calcium Urine WBC (Auto) Urine Creatinine Vancomycin Trough Crossmatch 06/16/21 06/16/21 06/17/21 11:31 17:08 06:25 WBC 4.4 L RBC 3.14 L Hgb 8.5 L Hct 25.7 L MCV 82 L MCH 27 L MCHC RDW 15.7 H Plt Count 64 L Seg Neuts % (Manual) 95.0 H Lymphocytes % (Manual) Monocytes % (Manual) Nucleated RBC % Seg Neutrophils # Man Lymphocytes # (Manual) 0.0 L PT INR APTT D-Dimer ABG pH POC ABG pCO2 POC ABG pO2 ABG pO2 ABG HCO3 ABG O2 Saturation ABG Base Excess ABG Hemoglobin ABG Oxyhemoglobin ABG Sodium ABG Potassium ABG Chloride ABG Glucose VBG pH Carboxyhemoglobin Sodium Potassium Chloride Carbon Dioxide BUN Creatinine Glucose POC Glucose 129 H 136 H Lactic Acid Calcium Phosphorus Magnesium Ferritin AST ALT Ammonia Lactate Dehydrogenase Troponin T C-Reactive Protein Total Protein Albumin Triglycerides LDL Cholesterol Direct HDL Cholesterol Arterial Blood Glucose Arterial Blood Ionized Calcium Urine WBC (Auto) Urine Creatinine Vancomycin Trough Crossmatch 06/17/21 06/17/21 06/17/21 06:25 18:19 18:38 WBC RBC Hgb Hct MCV MCH MCHC RDW Plt Count Seg Neuts % (Manual) Lymphocytes % (Manual) Monocytes % (Manual) Nucleated RBC % Seg Neutrophils # Man Lymphocytes # (Manual) PT INR APTT D-Dimer ABG pH 7.184 L POC ABG pCO2 65.8 H POC ABG pO2 130.5 H ABG pO2 ABG HCO3 ABG O2 Saturation ABG Base Excess ABG Hemoglobin 10.2 L ABG Oxyhemoglobin ABG Sodium ABG Potassium ABG Chloride 108.0 H ABG Glucose 229 H VBG pH Carboxyhemoglobin Sodium Potassium Chloride Carbon Dioxide BUN 62 H Creatinine Glucose 135 H POC Glucose 206 H Lactic Acid Calcium 7.8 L Phosphorus Magnesium Ferritin AST ALT Ammonia Lactate Dehydrogenase Troponin T C-Reactive Protein Total Protein Albumin Triglycerides LDL Cholesterol Direct HDL Cholesterol Arterial Blood Glucose 229 H Arterial Blood Ionized Calcium Urine WBC (Auto) Urine Creatinine Vancomycin Trough Crossmatch 06/18/21 06/18/21 06/18/21 00:29 05:15 10:56 WBC RBC Hgb Hct MCV MCH MCHC RDW Plt Count Seg Neuts % (Manual) Lymphocytes % (Manual) Monocytes % (Manual) Nucleated RBC % Seg Neutrophils # Man Lymphocytes # (Manual) PT INR APTT D-Dimer ABG pH POC ABG pCO2 POC ABG pO2 ABG pO2 ABG HCO3 ABG O2 Saturation ABG Base Excess ABG Hemoglobin ABG Oxyhemoglobin ABG Sodium ABG Potassium ABG Chloride ABG Glucose VBG pH Carboxyhemoglobin Sodium Potassium Chloride Carbon Dioxide BUN Creatinine Glucose POC Glucose 142 H 152 H Lactic Acid Calcium Phosphorus 5.60 H D Magnesium Ferritin AST ALT Ammonia Lactate Dehydrogenase Troponin T C-Reactive Protein Total Protein Albumin Triglycerides LDL Cholesterol Direct HDL Cholesterol Arterial Blood Glucose Arterial Blood Ionized Calcium Urine WBC (Auto) Urine Creatinine Vancomycin Trough Crossmatch 06/18/21 06/18/21 06/18/21 15:02 15:02 15:02 WBC 4.4 L RBC 3.39 L Hgb 9.7 L Hct 28.4 L MCV MCH MCHC RDW 16.3 H Plt Count 65 L Seg Neuts % (Manual) Lymphocytes % (Manual) Monocytes % (Manual) Nucleated RBC % Seg Neutrophils # Man Lymphocytes # (Manual) PT 15.6 H INR APTT 41.2 H D-Dimer ABG pH POC ABG pCO2 POC ABG pO2 ABG pO2 ABG HCO3 ABG O2 Saturation ABG Base Excess ABG Hemoglobin ABG Oxyhemoglobin ABG Sodium ABG Potassium ABG Chloride ABG Glucose VBG pH Carboxyhemoglobin Sodium Potassium Chloride Carbon Dioxide BUN Creatinine 2.0 H Glucose POC Glucose Lactic Acid Calcium Phosphorus Magnesium Ferritin AST ALT Ammonia Lactate Dehydrogenase Troponin T C-Reactive Protein Total Protein Albumin Triglycerides LDL Cholesterol Direct HDL Cholesterol Arterial Blood Glucose Arterial Blood Ionized Calcium Urine WBC (Auto) Urine Creatinine Vancomycin Trough Crossmatch 06/18/21 06/18/21 06/18/21 Unknown Unknown Unknown WBC 4.0 L RBC 2.72 L Hgb 8.0 L Hct 24.0 L MCV MCH MCHC RDW 17.2 H Plt Count 60 L Seg Neuts % (Manual) Lymphocytes % (Manual) Monocytes % (Manual) Nucleated RBC % Seg Neutrophils # Man Lymphocytes # (Manual) PT INR APTT D-Dimer ABG pH POC ABG pCO2 POC ABG pO2 ABG pO2 ABG HCO3 ABG O2 Saturation ABG Base Excess ABG Hemoglobin ABG Oxyhemoglobin ABG Sodium ABG Potassium ABG Chloride ABG Glucose VBG pH Carboxyhemoglobin Sodium 134 L D Potassium 6.0 H D Chloride Carbon Dioxide BUN 80 H Creatinine 1.8 H Glucose 395 H POC Glucose Lactic Acid Calcium 6.9 L Phosphorus Magnesium Ferritin AST < 5 L ALT < 5 L Ammonia Lactate Dehydrogenase Troponin T C-Reactive Protein Total Protein 4.9 L Albumin 1.4 L Triglycerides LDL Cholesterol Direct HDL Cholesterol Arterial Blood Glucose Arterial Blood Ionized Calcium Urine WBC (Auto) 10.0 H Urine Creatinine Vancomycin Trough Crossmatch 06/19/21 06/19/21 06/19/21 02:41 04:53 05:37 WBC RBC Hgb Hct MCV MCH MCHC RDW Plt Count Seg Neuts % (Manual) Lymphocytes % (Manual) Monocytes % (Manual) Nucleated RBC % Seg Neutrophils # Man Lymphocytes # (Manual) PT INR APTT D-Dimer ABG pH 7.270 L POC ABG pCO2 49.0 H POC ABG pO2 ABG pO2 ABG HCO3 ABG O2 Saturation ABG Base Excess ABG Hemoglobin 8.8 L ABG Oxyhemoglobin ABG Sodium ABG Potassium ABG Chloride 111.0 H ABG Glucose 110 H VBG pH Carboxyhemoglobin Sodium Potassium Chloride Carbon Dioxide BUN 92 H Creatinine 3.2 H D Glucose 123 H POC Glucose 114 H Lactic Acid Calcium 7.4 L Phosphorus Magnesium Ferritin AST ALT Ammonia Lactate Dehydrogenase Troponin T C-Reactive Protein Total Protein Albumin Triglycerides LDL Cholesterol Direct HDL Cholesterol Arterial Blood Glucose 110 H Arterial Blood Ionized Calcium Urine WBC (Auto) Urine Creatinine Vancomycin Trough Crossmatch 06/19/21 06/19/21 06/19/21 08:55 09:37 09:41 WBC RBC 2.91 L Hgb 7.9 L Hct 24.4 L MCV MCH 27 L MCHC RDW 16.5 H Plt Count 64 L Seg Neuts % (Manual) Lymphocytes % (Manual) Monocytes % (Manual) Nucleated RBC % Seg Neutrophils # Man Lymphocytes # (Manual) PT 19.2 H INR 1.46 H APTT 54.3 H D-Dimer ABG pH POC ABG pCO2 POC ABG pO2 ABG pO2 ABG HCO3 ABG O2 Saturation ABG Base Excess ABG Hemoglobin ABG Oxyhemoglobin ABG Sodium ABG Potassium ABG Chloride ABG Glucose VBG pH Carboxyhemoglobin Sodium 146 H Potassium Chloride Carbon Dioxide BUN Creatinine 3.5 H Glucose POC Glucose Lactic Acid Calcium Phosphorus Magnesium Ferritin AST ALT Ammonia Lactate Dehydrogenase Troponin T C-Reactive Protein Total Protein Albumin Triglycerides LDL Cholesterol Direct HDL Cholesterol Arterial Blood Glucose Arterial Blood Ionized Calcium Urine WBC (Auto) Urine Creatinine Vancomycin Trough Crossmatch 06/19/21 06/19/21 06/19/21 11:14 12:19 16:15 WBC RBC Hgb Hct MCV MCH MCHC RDW Plt Count Seg Neuts % (Manual) Lymphocytes % (Manual) Monocytes % (Manual) Nucleated RBC % Seg Neutrophils # Man Lymphocytes # (Manual) PT INR APTT D-Dimer ABG pH POC ABG pCO2 POC ABG pO2 ABG pO2 ABG HCO3 ABG O2 Saturation ABG Base Excess ABG Hemoglobin ABG Oxyhemoglobin ABG Sodium ABG Potassium ABG Chloride ABG Glucose VBG pH Carboxyhemoglobin Sodium Potassium Chloride Carbon Dioxide BUN Creatinine Glucose POC Glucose Lactic Acid Calcium Phosphorus Magnesium Ferritin AST ALT Ammonia Lactate Dehydrogenase Troponin T 0.109 H* C-Reactive Protein 11.50 H Total Protein Albumin Triglycerides 295 H LDL Cholesterol Direct 24 L HDL Cholesterol 17 L Arterial Blood Glucose Arterial Blood Ionized Calcium Urine WBC (Auto) Urine Creatinine 49.9 H Vancomycin Trough Crossmatch 06/19/21 06/19/21 06/20/21 18:05 22:40 05:00 WBC 4.1 L RBC 2.66 L Hgb 7.3 L Hct 22.5 L MCV MCH MCHC RDW 16.9 H Plt Count 60 L Seg Neuts % (Manual) Lymphocytes % (Manual) Monocytes % (Manual) Nucleated RBC % Seg Neutrophils # Man Lymphocytes # (Manual) PT INR APTT D-Dimer ABG pH POC ABG pCO2 POC ABG pO2 ABG pO2 ABG HCO3 ABG O2 Saturation ABG Base Excess ABG Hemoglobin ABG Oxyhemoglobin ABG Sodium ABG Potassium ABG Chloride ABG Glucose VBG pH Carboxyhemoglobin Sodium Potassium Chloride Carbon Dioxide BUN Creatinine Glucose POC Glucose 131 H 121 H Lactic Acid Calcium Phosphorus Magnesium Ferritin AST ALT Ammonia Lactate Dehydrogenase Troponin T C-Reactive Protein Total Protein Albumin Triglycerides LDL Cholesterol Direct HDL Cholesterol Arterial Blood Glucose Arterial Blood Ionized Calcium Urine WBC (Auto) Urine Creatinine Vancomycin Trough Crossmatch 06/20/21 06/20/21 06/20/21 05:00 05:00 05:17 WBC RBC Hgb Hct MCV MCH MCHC RDW Plt Count Seg Neuts % (Manual) Lymphocytes % (Manual) Monocytes % (Manual) Nucleated RBC % Seg Neutrophils # Man Lymphocytes # (Manual) PT INR APTT D-Dimer ABG pH POC ABG pCO2 POC ABG pO2 ABG pO2 ABG HCO3 ABG O2 Saturation ABG Base Excess ABG Hemoglobin ABG Oxyhemoglobin ABG Sodium ABG Potassium ABG Chloride ABG Glucose VBG pH Carboxyhemoglobin Sodium Potassium Chloride 111.6 H Carbon Dioxide 20 L BUN 108 H Creatinine 4.3 H Glucose 152 H POC Glucose 137 H Lactic Acid Calcium 7.1 L Phosphorus Magnesium Ferritin AST ALT Ammonia Lactate Dehydrogenase Troponin T 0.105 H* C-Reactive Protein Total Protein Albumin Triglycerides LDL Cholesterol Direct HDL Cholesterol Arterial Blood Glucose Arterial Blood Ionized Calcium Urine WBC (Auto) Urine Creatinine Vancomycin Trough Crossmatch 06/20/21 06/20/21 06/20/21 11:40 12:35 13:26 WBC RBC Hgb Hct MCV MCH MCHC RDW Plt Count Seg Neuts % (Manual) Lymphocytes % (Manual) Monocytes % (Manual) Nucleated RBC % Seg Neutrophils # Man Lymphocytes # (Manual) PT INR APTT D-Dimer ABG pH 6.994 L POC ABG pCO2 70.2 H POC ABG pO2 ABG pO2 ABG HCO3 ABG O2 Saturation ABG Base Excess ABG Hemoglobin 8.1 L ABG Oxyhemoglobin ABG Sodium ABG Potassium ABG Chloride 111.0 H ABG Glucose 207 H VBG pH Carboxyhemoglobin Sodium Potassium Chloride Carbon Dioxide BUN Creatinine Glucose POC Glucose 186 H Lactic Acid Calcium Phosphorus Magnesium Ferritin AST ALT Ammonia Lactate Dehydrogenase Troponin T C-Reactive Protein Total Protein Albumin Triglycerides LDL Cholesterol Direct HDL Cholesterol Arterial Blood Glucose 207 H Arterial Blood Ionized Calcium Urine WBC (Auto) 46.0 H Urine Creatinine Vancomycin Trough Crossmatch 06/20/21 06/20/21 06/20/21 13:54 13:54 17:38 WBC RBC 2.26 L Hgb 6.1 L Hct 19.6 L* MCV MCH 27 L MCHC RDW 17.6 H Plt Count 65 L Seg Neuts % (Manual) Lymphocytes % (Manual) Monocytes % (Manual) Nucleated RBC % Seg Neutrophils # Man Lymphocytes # (Manual) PT INR APTT D-Dimer ABG pH POC ABG pCO2 POC ABG pO2 ABG pO2 ABG HCO3 ABG O2 Saturation ABG Base Excess ABG Hemoglobin ABG Oxyhemoglobin ABG Sodium ABG Potassium ABG Chloride ABG Glucose VBG pH Carboxyhemoglobin Sodium 147 H Potassium 3.0 L D Chloride Carbon Dioxide 33 H D BUN 90 H Creatinine 3.3 H Glucose 771 H* POC Glucose 198 H Lactic Acid Calcium 5.3 L* D Phosphorus Magnesium Ferritin AST 41 H ALT Ammonia Lactate Dehydrogenase Troponin T C-Reactive Protein Total Protein 3.5 L D Albumin 1.0 L Triglycerides LDL Cholesterol Direct HDL Cholesterol Arterial Blood Glucose Arterial Blood Ionized Calcium Urine WBC (Auto) Urine Creatinine Vancomycin Trough Crossmatch 06/20/21 06/20/21 06/20/21 18:00 18:09 22:38 WBC RBC Hgb Hct MCV MCH MCHC RDW Plt Count Seg Neuts % (Manual) Lymphocytes % (Manual) Monocytes % (Manual) Nucleated RBC % Seg Neutrophils # Man Lymphocytes # (Manual) PT INR APTT D-Dimer ABG pH 7.189 L* POC ABG pCO2 POC ABG pO2 ABG pO2 209.0 H ABG HCO3 26.1 H ABG O2 Saturation 99.1 H ABG Base Excess -2.3 L ABG Hemoglobin 7.4 L ABG Oxyhemoglobin ABG Sodium ABG Potassium ABG Chloride ABG Glucose VBG pH Carboxyhemoglobin Sodium Potassium Chloride Carbon Dioxide BUN Creatinine Glucose POC Glucose 151 H Lactic Acid Calcium Phosphorus Magnesium Ferritin AST ALT Ammonia Lactate Dehydrogenase Troponin T C-Reactive Protein Total Protein Albumin Triglycerides LDL Cholesterol Direct HDL Cholesterol Arterial Blood Glucose Arterial Blood Ionized Calcium Urine WBC (Auto) Urine Creatinine Vancomycin Trough Crossmatch See Detail 06/20/21 06/21/21 06/21/21 23:12 04:21 05:36 WBC RBC Hgb Hct MCV MCH MCHC RDW Plt Count Seg Neuts % (Manual) Lymphocytes % (Manual) Monocytes % (Manual) Nucleated RBC % Seg Neutrophils # Man Lymphocytes # (Manual) PT INR APTT D-Dimer ABG pH 7.31 L POC ABG pCO2 55.4 H POC ABG pO2 156.5 H ABG pO2 ABG HCO3 ABG O2 Saturation ABG Base Excess ABG Hemoglobin 9.0 L ABG Oxyhemoglobin ABG Sodium ABG Potassium 3.3 L ABG Chloride ABG Glucose VBG pH Carboxyhemoglobin Sodium Potassium Chloride Carbon Dioxide BUN Creatinine Glucose POC Glucose 184 H 128 H Lactic Acid Calcium Phosphorus Magnesium Ferritin AST ALT Ammonia Lactate Dehydrogenase Troponin T C-Reactive Protein Total Protein Albumin Triglycerides LDL Cholesterol Direct HDL Cholesterol Arterial Blood Glucose Arterial Blood Ionized Calcium Urine WBC (Auto) Urine Creatinine Vancomycin Trough Crossmatch 06/21/21 06/21/21 06/21/21 07:45 07:45 07:45 WBC 3.3 L RBC 3.08 L Hgb 8.7 L Hct 25.6 L D MCV 83 L MCH MCHC RDW 16.2 H Plt Count 49 L Seg Neuts % (Manual) Lymphocytes % (Manual) Monocytes % (Manual) Nucleated RBC % Seg Neutrophils # Man Lymphocytes # (Manual) PT INR APTT D-Dimer ABG pH POC ABG pCO2 POC ABG pO2 ABG pO2 ABG HCO3 ABG O2 Saturation ABG Base Excess ABG Hemoglobin ABG Oxyhemoglobin ABG Sodium ABG Potassium ABG Chloride ABG Glucose VBG pH Carboxyhemoglobin Sodium Potassium 3.5 L 3.5 L Chloride 108.0 H 107.4 H Carbon Dioxide BUN 86 H 84 H Creatinine 3.5 H 3.4 H Glucose 157 H 158 H POC Glucose Lactic Acid Calcium 7.4 L D 7.6 L Phosphorus Magnesium Ferritin AST 51 H ALT Ammonia Lactate Dehydrogenase Troponin T C-Reactive Protein Total Protein 3.9 L Albumin 1.3 L Triglycerides LDL Cholesterol Direct HDL Cholesterol Arterial Blood Glucose Arterial Blood Ionized Calcium Urine WBC (Auto) Urine Creatinine Vancomycin Trough Crossmatch 06/21/21 11:46 WBC RBC Hgb Hct MCV MCH MCHC RDW Plt Count Seg Neuts % (Manual) Lymphocytes % (Manual) Monocytes % (Manual) Nucleated RBC % Seg Neutrophils # Man Lymphocytes # (Manual) PT INR APTT D-Dimer ABG pH POC ABG pCO2 POC ABG pO2 ABG pO2 ABG HCO3 ABG O2 Saturation ABG Base Excess ABG Hemoglobin ABG Oxyhemoglobin ABG Sodium ABG Potassium ABG Chloride ABG Glucose VBG pH Carboxyhemoglobin Sodium Potassium Chloride Carbon Dioxide BUN Creatinine Glucose POC Glucose 130 H Lactic Acid Calcium Phosphorus Magnesium Ferritin AST ALT Ammonia Lactate Dehydrogenase Troponin T C-Reactive Protein Total Protein Albumin Triglycerides LDL Cholesterol Direct HDL Cholesterol Arterial Blood Glucose Arterial Blood Ionized Calcium Urine WBC (Auto) Urine Creatinine Vancomycin Trough Crossmatch Chest x-ray: image reviewed Allied health notes reviewed: RT
[2021-06-21] MEDS ORDERED: SODIUM CHLORIDE 0.9% 1000 ML 250 ML IV ONE (16:35)
[2021-06-22] MEDS: fentaNYL DRIP Premix 2,000 MCG/100 ML BAG IV SCH ×3 (01:49→18:21)
[2021-06-22] MEDS: NORepinephrine/NS 8 MG-250 ML 8 MG/250 ML INFUS..BTL IV SCH ×3 (01:55→23:37)
[2021-06-22] MEDS: metroNIDAZOLE/NS 500 MG/100 ML 500 MG/100 ML BAG IV SCH ×3 (05:00→21:22)
[2021-06-22 05:38] LABS: Calcium 7.4 mg/dL (8.4-10.2)
--- NOTE | 2021-06-22 07:37 | Progress Note ---
Assessment and Plan Assessment and plan: #PEA arrest -ROSC achieved after 7 minutes -shocked after Vtach #Acute hypoxic respiratory failure #Moderate ARDS #Respiratory acidosis -Intubated on 06/27 -Vent settings: A/C tidal volume 400, rate 30, PEEP 10, FiO2 45% -continue Solu-Medrol -Pulmonary consulted, recs appreciated #Severe sepsis with shock -pressors started overnight (Norepinephrine @ 3mcg); maintain MAP >65 -Febrile, PRN Tylenol -tachycardia -Repeat blood cultures ordered 06/17: NGTD x24hrs -urine culture pending -Likely source PNA/abscess #Metabolic acidosis -femoral vasc cath to be placed -plan for dialysis per Nephrology #ANGELES -SCr steadily increased over the last few days, now 3.2 -FENa 2.7% indicative of intrinsic cause; likely due to ATN -appreciate Nephrology assistance #Elevated troponin -troponin 0.105 -EKG with T wave depressions; Cardiology consulted, recs appreciated #COVID-19 pneumonia #Aspiration pneumonia #Left lower lobe abscess -Seen on CT abdomen pelvis and chest: Approximately 5 x 6 cm -continue cefepime and Flagyl per ID recommendations -vancomycin discontinued -Will require antibiotic treatment for 3 weeks total #Hyperkalemia -resolved, K 4.8 -continue to monitor #Nutrition -TF at 40cc/hr currently -Nutrition following, assistance appreciated #Goals of care -Discussed with family recent updates, made aware of poor prognosis due to PEA arrest and concurrent respiratory and renal failure. They want FULL CODE for now. Will continue to discuss. Resolved problems: #Hypernatremia #Acute encephalopathy #Ileus #Lactic acidosis Disposition Plan: continue medical management Total Time Spent with Patient (Minutes): 40 minutes History Interval history: PEA arrest this morning. Patient resuscitated. Now with pneumothorax. Hospitalist Physical - Physical exam Narrative exam: GENERAL: Thin male. Intubated and mechanically ventilated. HEENT: ETT and CURT in place CHEST/LUNGS: Coarse breath sounds bilaterally. HEART/CARDIOVASCULAR: Tachycardic. No murmur, rubs or gallops appreciated. ABDOMEN: +BS. ND. :+Heart cath EXTREMITIES: No cyanosis, clubbing or edema appreciated. - Constitutional Vitals: Temp Pulse Resp BP Pulse Ox 99.1 F 121 H 18 132/60 96 06/22/21 04:00 06/22/21 07:15 06/22/21 07:15 06/22/21 07:15 06/22/21 07:15 General appearance: Present: other (intubated) HEART Score - HEART Score EKG: Non-specific Age: 45-65 Risk factors: 1-2 risk factors Troponin: Troponin T 0.105 ng/mL (0.00-0.029) H* 06/20/21 05:00 - Critical Actions Critical Actions: 0-3 pts:0.9-1.7%risk of adverse cardiac event.Candidate for discharge Results - Labs CBC & Chem 7: 06/21/21 07:45 06/22/21 04:57 Labs: Laboratory Last Values WBC 3.3 K/mm3 (4.5-11.0) L 06/21/21 07:45 RBC 3.08 M/mm3 (3.65-5.03) L 06/21/21 07:45 Hgb 8.7 gm/dl (11.8-15.2) L 06/21/21 07:45 Hct 25.6 % (35.5-45.6) L D 06/21/21 07:45 MCV 83 fl (84-94) L 06/21/21 07:45 MCH 28 pg (28-32) 06/21/21 07:45 MCHC 34 % (32-34) 06/21/21 07:45 RDW 16.2 % (13.2-15.2) H 06/21/21 07:45 Plt Count 49 K/mm3 (140-440) L 06/21/21 07:45 Lymph % (Auto) Engineer Technician 06/01/21 07:10 [place] % (Auto) Engineer Technician 06/01/21 07:10 Eos % (Auto) Engineer Technician 06/01/21 07:10 Baso % (Auto) Engineer Technician 06/01/21 07:10 Lymph # (Auto) Engineer Technician 06/01/21 07:10 [place] # (Auto) Engineer Technician 06/01/21 07:10 Eos # (Auto) Engineer Technician 06/01/21 07:10 Baso # (Auto) Engineer Technician 06/01/21 07:10 Add Manual Diff Complete 06/17/21 06:25 Total Counted 100 06/17/21 06:25 Seg Neutrophils % Engineer Technician 06/17/21 06:25 Seg Neuts % (Manual) 95.0 % (40.0-70.0) H 06/17/21 06:25 Band Neutrophils % 2.0 % 06/17/21 06:25 Lymphocytes % (Manual) 1.0 % (13.4-35.0) L 06/15/21 05:53 Reactive Lymphs % (Man) 1.0 % 06/01/21 07:10 Monocytes % (Manual) 3.0 % (0.0-7.3) 06/17/21 06:25 Myelocytes % 1.0 % 06/13/21 06:05 Nucleated RBC % Not Reportable 06/17/21 06:25 Seg Neutrophils # Engineer Technician 06/01/21 07:10 Seg Neutrophils # Man 4.2 K/mm3 (1.8-7.7) 06/17/21 06:25 Band Neutrophils # 0.1 K/mm3 06/17/21 06:25 Lymphocytes # (Manual) 0.0 K/mm3 (1.2-5.4) L 06/17/21 06:25 Abs React Lymphs (Man) 0.0 K/mm3 06/17/21 06:25 Monocytes # (Manual) 0.1 K/mm3 (0.0-0.8) 06/17/21 06:25 Eosinophils # (Manual) 0.0 K/mm3 (0.0-0.4) 06/17/21 06:25 Basophils # (Manual) 0.0 K/mm3 (0.0-0.1) 06/17/21 06:25 Metamyelocytes # 0.0 K/mm3 06/17/21 06:25 Myelocytes # 0.0 K/mm3 06/17/21 06:25 Promyelocytes # 0.0 K/mm3 06/17/21 06:25 Blast Cells # 0.0 K/mm3 06/17/21 06:25 WBC Morphology Not Reportable 06/17/21 06:25 Hypersegmented Neuts Not Reportable 06/17/21 06:25 Hyposegmented Neuts Not Reportable 06/17/21 06:25 Hypogranular Neuts Not Reportable 06/17/21 06:25 Smudge Cells Not Reportable 06/17/21 06:25 Toxic Granulation Not Reportable 06/17/21 06:25 Toxic Vacuolation Not Reportable 06/17/21 06:25 Dohle Bodies Not Reportable 06/17/21 06:25 Pelger-Huet Anomaly Not Reportable 06/17/21 06:25 Kaci Rods Not Reportable 06/17/21 06:25 Platelet Estimate Consistent w auto 06/17/21 06:25 Clumped Platelets Not Reportable 06/17/21 06:25 Plt Clumps, EDTA Not Reportable 06/17/21 06:25 Large Platelets Not Reportable 06/17/21 06:25 Giant Platelets Not Reportable 06/17/21 06:25 Platelet Satelliting Not Reportable 06/17/21 06:25 Plt Morphology Comment Not Reportable 06/17/21 06:25 RBC Morphology Normal 06/17/21 06:25 Dimorphic RBCs Not Reportable 06/17/21 06:25 Polychromasia Not Reportable 06/17/21 06:25 Hypochromasia Not Reportable 06/17/21 06:25 Poikilocytosis Not Reportable 06/17/21 06:25 Anisocytosis Not Reportable 06/17/21 06:25 Microcytosis Not Reportable 06/17/21 06:25 Macrocytosis Not Reportable 06/17/21 06:25 Spherocytes Not Reportable 06/17/21 06:25 Pappenheimer Bodies Not Reportable 06/17/21 06:25 Sickle Cells Not Reportable 06/17/21 06:25 Target Cells Not Reportable 06/17/21 06:25 Tear Drop Cells Not Reportable 06/17/21 06:25 Ovalocytes Not Reportable 06/17/21 06:25 Helmet Cells Not Reportable 06/17/21 06:25 [place] Bodies Not Reportable 06/17/21 06:25 [place] Rings Not Reportable 06/17/21 06:25 [place] Cells Not Reportable 06/17/21 06:25 Bite Cells Not Reportable 06/17/21 06:25 Crenated Cell Not Reportable 06/17/21 06:25 Elliptocytes Not Reportable 06/17/21 06:25 Acanthocytes (Spur) Not Reportable 06/17/21 06:25 Rouleaux Not Reportable 06/17/21 06:25 Hemoglobin C Crystals Not Reportable 06/17/21 06:25 Schistocytes Not Reportable 06/17/21 06:25 Malaria parasites Not Reportable 06/17/21 06:25 Dick Bodies Not Reportable 06/17/21 06:25 Hem Pathologist Commnt No 06/17/21 06:25 PT 19.2 Sec. (12.2-14.9) H 06/19/21 09:37 INR 1.46 (0.87-1.13) H 06/19/21 09:37 APTT 54.3 Sec. (24.2-36.6) H 06/19/21 09:37 D-Dimer 3584.01 ng/mlDDU (0-234) H 05/27/21 08:09 ABG pH 7.31 (7.320-7.450) L 06/21/21 04:21 POC ABG pCO2 55.4 mmHg (32.0-48.0) H 06/21/21 04:21 ABG pCO2 70.2 mm Hg 06/20/21 18:00 POC ABG pO2 156.5 mmHg (83-108) H 06/21/21 04:21 ABG pO2 209.0 mm Hg (80.0-90.0) H 06/20/21 18:00 POC ABG HCO3 27.8 06/21/21 04:21 ABG HCO3 26.1 mmol/L (20.0-26.0) H 06/20/21 18:00 ABG O2 Saturation 99.2 (0-100) 06/21/21 04:21 ABG O2 Content 10.6 (0.0-44) 06/20/21 18:00 POC ABG Base Excess 1.1 06/21/21 04:21 ABG Base Excess -2.3 mmol/L (-2.0-3.0) L 06/20/21 18:00 ABG Hemoglobin 9.0 (12.0-17.5) L 06/21/21 04:21 ABG Oxyhemoglobin 94 (94-98) 06/20/21 11:40 ABG Carboxyhemoglobin 1.7 % (0.0-5.0) 06/20/21 18:00 ABG Methemoglobin 0.7 % (0.0-1.5) 06/20/21 18:00 ABG Sodium 140.3 mmol/L (136.0-145.0) 06/21/21 04:21 ABG Potassium 3.3 mmol/L (3.40-4.50) L 06/21/21 04:21 ABG Chloride 107.0 mmol/L (98-107) 06/21/21 04:21 ABG Glucose 207 mg/dL (65-95) H 06/20/21 11:40 VBG pH 7.254 (7.320-7.420) L 05/24/21 02:09 Oxyhemoglobin 96.7 % (95.0-99.0) 06/20/21 18:00 Carboxyhemoglobin 1.2 (0.5-1.5) 06/20/21 11:40 FiO2 100 % 06/20/21 18:00 FiO2 % 100 06/21/21 04:21 Sodium 136 mmol/L (137-145) L D 06/22/21 04:57 Potassium 3.6 mmol/L (3.6-5.0) 06/22/21 04:57 Chloride 101.8 mmol/L (98-107) 06/22/21 04:57 Carbon Dioxide 22 mmol/L (22-30) 06/22/21 04:57 Anion Gap 16 mmol/L 06/22/21 04:57 BUN 61 mg/dL (9-20) H 06/22/21 04:57 Creatinine 3.2 mg/dL (0.8-1.3) H 06/22/21 04:57 Estimated GFR 24 ml/min 06/22/21 04:57 BUN/Creatinine Ratio 19 % 06/22/21 04:57 Glucose 115 mg/dL (75-100) H 06/22/21 04:57 POC Glucose 105 mg/dL (70-105) 06/22/21 06:06 Lactic Acid 1.00 mmol/L (0.7-2.0) 06/19/21 16:20 Calcium 7.4 mg/dL (8.4-10.2) L 06/22/21 04:57 Phosphorus 5.60 mg/dL (2.5-4.5) H D 06/18/21 10:56 Magnesium 2.30 mg/dL (1.7-2.3) 06/18/21 10:56 Ferritin 2742.0 ng/mL (30.0-300.0) H 05/27/21 08:09 Total Bilirubin 0.20 mg/dL (0.1-1.2) 06/21/21 07:45 AST 51 units/L (5-40) H 06/21/21 07:45 ALT 14 units/L (7-56) 06/21/21 07:45 Alkaline Phosphatase 122 units/L (35-129) 06/21/21 07:45 Ammonia 22.0 umol/L (25-60) L 05/23/21 18:48 Lactate Dehydrogenase 642 units/L (91-180) H 05/27/21 08:09 Troponin T 0.105 ng/mL (0.00-0.029) H* 06/20/21 05:00 C-Reactive Protein 11.50 mg/dL (0.00-1.30) H 06/19/21 16:15 Total Protein 3.9 g/dL (6.3-8.2) L 06/21/21 07:45 Albumin 1.3 g/dL (3.9-5) L 06/21/21 07:45 Albumin/Globulin Ratio 0.5 % 06/21/21 07:45 Triglycerides 295 mg/dL (2-149) H 06/19/21 12:19 Cholesterol 85 mg/dL (50-199) 06/19/21 12:19 LDL Cholesterol Direct 24 mg/dL (50-130) L 06/19/21 12:19 HDL Cholesterol 17 mg/dL (40-59) L 06/19/21 12:19 Cholesterol/HDL Ratio 5.00 % 06/19/21 12:19 Procalcitonin 19.60 ng/mL (<0.15) 06/18/21 Unknown TSH 1.150 mlU/mL (0.270-4.200) 05/23/21 18:48 Arterial Blood Glucose 207 mg/dL (65-95) H 06/20/21 11:40 Arterial Blood Ionized Calcium 4.5 mg/dL (4.6-5.3) L 05/29/21 17:58 Urine Color Eli (Yellow) 06/20/21 12:35 Urine Turbidity Cloudy (Clear) 06/20/21 12:35 Urine pH 5.0 (5.0-7.0) 06/20/21 12:35 Ur Specific Paron 1.016 (1.003-1.030) 06/20/21 12:35 Urine Protein 100 mg/dl mg/dL (Negative) 06/20/21 12:35 Urine Glucose (UA) 50 mg/dL (Negative) 06/20/21 12:35 Urine Ketones Neg mg/dL (Negative) 06/20/21 12:35 Urine Blood Mod (Negative) 06/20/21 12:35 Urine Nitrite Neg (Negative) 06/20/21 12:35 Urine Bilirubin Neg (Negative) 06/20/21 12:35 Urine Urobilinogen < 2.0 mg/dL (<2.0) 06/20/21 12:35 Ur Leukocyte Esterase Neg (Negative) 06/20/21 12:35 Urine WBC (Auto) 46.0 /HPF (0.0-6.0) H 06/20/21 12:35 Urine RBC (Auto) 74.0 /HPF (0.0-6.0) 06/20/21 12:35 U Epithel Cells (Auto) 2.0 /HPF (0-13.0) 05/30/21 01:00 Urine Bacteria (Auto) 4+ /HPF (Negative) 06/20/21 12:35 Urine WBC Clumps Few /HPF 06/20/21 12:35 Uric Acid Crystals Few 05/30/21 01:00 Amorphous Crystals 3+ 06/20/21 12:35 Granular Casts 90 /LPF 06/20/21 12:35 Urine Mucus Few /HPF 06/20/21 12:35 Ur Yeast w Hyphae 2+ /HPF 06/18/21 Unknown Urine Yeast (Budding) 3+ /HPF 06/18/21 Unknown Urine Sperm Few /HPF (INSPECTOR TECHNICIAN) 06/20/21 12:35 Urine Eosinophils None seen (None Seen) 06/18/21 11:24 Urine Creatinine 49.9 mg/dL (0.1-20.0) H 06/19/21 11:14 Urine Sodium 56 mmol/L 06/19/21 11:14 Fraction Sodium Excret 2.3 06/19/21 11:14 Nasal Screen MRSA (PCR) Negative (Negative) 06/15/21 Unknown Vancomycin Trough 18.1 ug/mL (5.0-20.0) 06/16/21 22:30 Plasma/Serum Alcohol < 0.01 % (0-0.07) 05/23/21 18:48 Proteinase 3 (PR3) Ab <1.0 AI (<1.0) 05/24/21 20:57 Myeloperoxidase Ab <1.0 AI (<1.0) 05/24/21 20:57 Complement C3 108 mg/dL (82-185) 05/24/21 20:57 Complement C4 29 mg/dL (15-53) 05/24/21 20:57 Coronavirus (PCR) Negative (Negative) 05/26/21 08:41 Blood Type A POSITIVE 06/20/21 22:38 Antibody Screen Negative 06/20/21 22:38 Crossmatch See Detail 06/20/21 22:38 Microbiology: Microbiology 06/17/21 13:15 Peripheral/Venous Blood Culture - Preliminary NO GROWTH AFTER 4 DAYS 06/17/21 13:48 Peripheral/Venous Blood Culture - Preliminary NO GROWTH AFTER 4 DAYS Heart/IV: Voiding Method Indwelling Catheter Active Medications - Current Medications Current Medications: Generic Name Dose Route Start Last Admin Trade Name Freq PRN Reason Stop Dose Admin Acetaminophen 650 mg 06/19/21 12:00 06/19/21 12:15 Acetaminophen 325 Mg/10.15 Ml Oral Liqd Unit Dose FEEDTUBE 650 mg Q6H PRN Administration Pain MILD(1-3)/Fever >100.5/LUCAS Albuterol/Ipratropium 1 ampul 06/07/21 20:00 06/21/21 19:32 Ipratropium/Albuterol Sulfate 3 Ml Ampul.Neb IH 1 ampul TIDRT MIKE Administration Lipase/Protease/Amylase 1 each 06/18/21 12:21 Lipase 10,500/Protease 25,000/Amylase 43,750 (Units) Dr Rodney FEEDTUBE PRN PRN For Clogged Feeding Tube Famotidine 10 mg 06/19/21 10:00 06/21/21 21:57 Famotidine 20 Mg/2 Ml Inj IV 10 mg BID MIKE Administration Fentanyl 50 mcg 06/17/21 17:00 Fentanyl 100 Mcg/2 Ml Inj IV Q10MIN PRN ANALGESIA Hydrophilic Ointment 1 applic 06/17/21 17:00 Lip Therapy Vaseline TP Q2HR PRN Dry Lips Metronidazole 500 mg in 100 mls @ 100 mls/hr 06/08/21 13:00 06/21/21 19:00 Flagyl 500 Mg/100 Ml IV 06/29/21 05:59 100 mls/hr Q8H MIKE Administration Protocol Fentanyl Citrate 2,000 mcg in 100 mls @ 3.725 mls/hr 06/17/21 17:00 06/22/21 01:49 Fentanyl Drip Premix IV 4 mcg/kg/hr TITR MIKE 14.9 mls/hr Administration Protocol 1 MCG/KG/HR NORepinephrine/NS 8 MG-250 ML 8 mg in 250 mls @ 3.75 mls/hr 06/18/21 23:00 06/22/21 01:55 Norepinephrine/Ns 8 Mg-250 Ml (Double Conc) IV 10 mcg/min TITRATE MIKE 18.75 mls/hr Administration Protocol 2 MCG/MIN Cefepime HCl 2 gm in 100 mls @ 200 mls/hr 06/20/21 06:00 06/21/21 08:12 Cefepime/Ns 2 Gm/100 Ml IV 06/29/21 06:29 Infused Q24H MIKE Infusion Protocol Sodium Chloride 1,000 mls @ 50 mls/hr 06/20/21 09:30 Nacl 0.9% 1000 Ml IV DIRECT MIKE Propofol 1,000 mg in 100 mls @ 2.226 mls/hr 06/20/21 13:00 06/21/21 21:56 Diprivan 10 Mg/Ml IV 5 mcg/kg/min TITR MIKE 2.226 mls/hr Administration Protocol 5 MCG/KG/MIN Sodium Chloride 100 mls @ 999 mls/hr 06/20/21 14:05 Nacl 0.9% IV KAVITA PRN Hypotension Morphine Sulfate 2 mg 05/23/21 22:01 06/17/21 10:01 Morphine 2 Mg/1 Ml Inj IV 2 mg Q4H PRN Administration Pain, Moderate (4-6) Multi-Ingred Cream/Lotion/Oil/Oint 1 applic 06/17/21 18:00 Mineral Oil/Petrolatum, White Ophth Oint 3.5 Gm OU Q4HR PRN Dry Eye(s) Ondansetron HCl 4 mg 06/04/21 13:41 06/09/21 22:05 Ondansetron 4 Mg/2 Ml Inj IV 4 mg Q4H PRN Administration Nausea And Vomiting Senna/Docusate Sodium 1 tab 06/17/21 22:00 06/21/21 21:56 Sennosides/Docusate Sodium 8.6/50 Mg Tab FEEDTUBE 1 tab BID MIKE Administration Simple Syrup 15 ml 06/18/21 12:21 Simple Syrup 15 Ml FEEDTUBE PRN PRN Hypoglycemia Simple Syrup 30 ml 06/18/21 12:21 Simple Syrup 15 Ml FEEDTUBE PRN PRN Hypoglycemia Sodium Bicarbonate 325 mg 06/18/21 12:21 Sodium Bicarbonate 325 Mg Tab FEEDTUBE PRN PRN For Clogged Feeding Tube Sodium Chloride 10 ml 05/23/21 22:01 06/21/21 10:22 Sodium Chloride 0.9% 10 Ml Flush Syringe IV 10 ml PRN PRN Administration LINE FLUSH Nutrition/Malnutrition Assess - Dietary Evaluation Nutrition/Malnutrition Findings: Nutrition Notes Start: 05/25/21 09:3 3 Freq: Status: Active Protocol: Document 06/20/21 12:02 GB (Rec: 06/20/21 12:17 GB [id number]) Nutrition Notes Initial or Follow up Reassessment Current Diagnosis Respiratory Failure Other Pertinent Diagnosis Accute Kidney Injury, Pneumonia, PUI Covid-19. Current Diet NPO, Tube Feeding Nepro Labs/Tests 06/20: BUN 108, creatinine 4.3 , Glu 152, Ca 7/1 Pertinent Medications fentanyl citrate, Norepinhephrin/Ns8 Mg250 Height 5 ft 11 in Weight 74.2 kg [place] Body Weight (kg) 78.18 BMI 22.8 Weight change and time frame 05/24: 77.111kg 06/20: 74.2kg change of -2.911kg for -3.7% signficance. Stable for 30 days. Weight Status Appropriate Subjective/Other Information TF at goal rate. Per chart: pt name is Marty Sanabria age 59yrs. Last BM: 06/19 MD note 06/20: Pt experienced PEA arrest today. Family wants full care and continue full code status. Percent of energy/protein needs met: TF at goal rate meets 75% or greater EEN Burn Absent Trauma Absent GI Symptoms Diarrhea Difficulty In Swallowing Food Allergy No Skin Integrity/Comment PI: buttocks Current % PO Other Minimum of two criteria No physical signs of malnutrition #2 Nutrition Diagnosis No nutrition diagnosis at this time Diagnosis Progress(for reassessment Resolved documentation) #1 Nutrition Diagnosis Swallowing difficulty Comments: 06/20: Tube feeding started , Nepro @41ml/hr at goal, tolerating Etiology acute illness As Evidenced by Signs and Symptoms Intubated, TF Diagnosis Progress(for reassessment Continues documentation) Is patient on ventilator? Yes Is Patient Ambulatory and/or Out of Bed No REE-([place]-StDonovan Meng-confined to bed) 1923.336 Kcal/Kg value to use for calculation 25 Approximate Energy Requirements Using 1855 kcal/Kg Calculation Used for Recommendations Kcal/kg Additional Notes protein needs: 1.0-1.2 g/Kg/ day @78kg; 78-94 gr/day fluid needs: 1.0 ml/kcal, or as per MD. Nutrition Intervention Change Diet Order: NPO - continue Nutrition Support: TF- Nepro @41ml/hr continue Flush 190ml/4hr Total fluids: TF at goal + Flush = 1855ml Kcal 1,771 Protein (gm) 80 Fluid (mL) 715 Add Supplement/Snack (indicate name/kcal n/a /protein ) Goal #1 Maintain body weight within +/ -3% of current BWt during LOS. 06/20: met, -3.7% in 30 days, continues Goal #2 Reach and maintain acceptable chemistry lab values during LOS. 06/20: showing improvement, continues Goal #3 Tolerate TF at goal 41ml/hr during LOS 06/20: met, continues Follow-Up By: 06/24/21 Additional Comments f/u: TF, vent status
[2021-06-22] MEDS: CEFEPIME/NS 2 GM/100 ML 2 GM/100 ML BAG IV SCH (08:36)
[2021-06-22] MEDS: IPRATROPIUM/ALBUTEROL SULFATE 3 ML AMPUL.NEB IH SCH ×3 (09:00→22:08)
[2021-06-22] MEDS: FAMOTIDINE 20 MG/2 ML INJ IV SCH ×2 (09:44→21:21)
[2021-06-22] MEDS: SENNOSIDES/DOCUSATE SODIUM 8.6/50 MG TAB FEEDTUBE SCH ×2 (09:44→23:39)
[2021-06-22 10:15] LABS: Hematocrit 24.1 % (35.5-45.6); Hemoglobin 8.2 gm/dl (11.8-15.2); Mean Corpuscular HGB Conc 34 % (32-34); Mean Corpuscular Volume 84 fl (84-94); Red Blood Count 2.86 M/mm3 (3.65-5.03); Red Cell Distribution Width 16.2 % (13.2-15.2)
[2021-06-22 10:21] LABS: Platelet Count 27 K/mm3 (140-440)
--- NOTE | 2021-06-22 12:31 | Event Note ---
Date: 06/22/21 Had follow-up discussion with patient's son Ben Sanabria ([phone]) whom next of kin Meghan Sanabria wanted to make all the medical decisions for the patient. Mr. Sanabria requested that patient CODE STATUS to be changed to AND/DNR. Order was placed in EMR and on paper chart. He would like to continue with plan of current care.
--- NOTE | 2021-06-22 13:02 | Progress Note ---
Assessment and Plan Assessment and plan: #PEA arrest -06/20 ROSC achieved after 7 minutes -shocked after episode of VTachy #Acute hypoxic respiratory failure #Moderate ARDS #Respiratory acidosis #L sided pneumothorax -Intubated on 06/27, requiring mechanical ventilation -Vent settings: A/C tidal volume 450, rate 30, PEEP 6, FiO2 70% -continue Solu-Medrol -continue chest tube to suction -fentanyl and propofol; TG level ordered -Pulmonary/CC consulted, recs appreciated #Severe sepsis with shock -currently requiring pressor support (Norepinephrine @ 10mcg); maintain MAP >65 -Repeat blood cultures ordered 06/17: NGTD x 4 days -urine culture w/ maisha -Likely source PNA/abscess #Pancytopenia -low WBC, H&H, and platelet count -likely 2/2 to critical illness and recent PEA arrest -transfuse for Hgb <7, platelets less than 30 if febrile -plt 27 today -HIT panel ordered -will continue to monitor #Metabolic acidosis -improving -femoral vasc cath as access -s/p bicarbonate drip -dialysis per Nephrology #ANGELES -FENa 2.7% indicative of intrinsic cause; likely due to ATN -continue HD -appreciate Nephrology assistance #COVID-19 pneumonia #Aspiration pneumonia #Left lower lobe abscess -Seen on CT abdomen pelvis and chest: Approximately 5 x 6 cm -continue cefepime and Flagyl per ID recommendations -will continue antibiotic treatment for 3 weeks total #Hyperkalemia -resolved #Nutrition -TF at 41cc/hr currently -Nutrition following, assistance appreciated #Goals of care -Discussed with family recent updates, made aware of poor prognosis due to PEA arrest and concurrent respiratory and renal failure on 06/20. -per CHERRY Sanabria, would like brother Ben Sanabria to make final medical decisions. -decision made to change CODE STATUS TO AND/DNR, will continue current medical management Resolved problems: #Hypernatremia #Ileus #Lactic acidosis Disposition Plan: Continue medical management Total Time Spent with Patient (Minutes): 30 minutes History Interval history: No acute events overnight. Patient still intubated and unresponsive. Hospitalist Physical - Physical exam Narrative exam: GENERAL: Thin male. Intubated and mechanically ventilated. HEENT: ETT and CURT in place CHEST/LUNGS: Coarse breath sounds bilaterally. L sided chest tube in place. HEART/CARDIOVASCULAR: Tachycardic. No murmur, rubs or gallops appreciated. ABDOMEN: +BS. ND. :+Heart cath EXTREMITIES: BUE edema - Constitutional Vitals: Temp Pulse Resp BP Pulse Ox 99.3 F 129 H 19 133/58 91 06/22/21 08:11 06/22/21 11:15 06/22/21 11:15 06/22/21 11:15 06/22/21 11:15 General appearance: Present: other (intubated) HEART Score - HEART Score EKG: Non-specific Age: 45-65 Risk factors: 1-2 risk factors Troponin: Troponin T 0.105 ng/mL (0.00-0.029) H* 06/20/21 05:00 - Critical Actions Critical Actions: 0-3 pts:0.9-1.7%risk of adverse cardiac event.Candidate for discharge Results - Labs CBC & Chem 7: 06/22/21 09:42 06/22/21 04:57 Labs: Laboratory Last Values WBC 2.8 K/mm3 (4.5-11.0) L 06/22/21 09:42 RBC 2.86 M/mm3 (3.65-5.03) L 06/22/21 09:42 Hgb 8.2 gm/dl (11.8-15.2) L 06/22/21 09:42 Hct 24.1 % (35.5-45.6) L 06/22/21 09:42 MCV 84 fl (84-94) 06/22/21 09:42 MCH 29 pg (28-32) 06/22/21 09:42 MCHC 34 % (32-34) 06/22/21 09:42 RDW 16.2 % (13.2-15.2) H 06/22/21 09:42 Plt Count 27 K/mm3 (140-440) L 06/22/21 09:42 Lymph % (Auto) [employer] 06/01/21 07:10 [place] % (Auto) [employer] 06/01/21 07:10 Eos % (Auto) [employer] 06/01/21 07:10 Baso % (Auto) [employer] 06/01/21 07:10 Lymph # (Auto) [employer] 06/01/21 07:10 [place] # (Auto) [employer]er 06/01/21 07:10 Eos # (Auto) [employer] Installer 06/01/21 07:10 Baso # (Auto) [employer] Install[employer] 06/01/21 07:10 Add Manual Diff Complete 06/17/21 06:25 Total Counted 100 06/17/21 06:25 Seg Neutrophils % [employer] 06/17/21 06:25 Seg Neuts % (Manual) 95.0 % (40.0-70.0) H 06/17/21 06:25 Band Neutrophils % 2.0 % 06/17/21 06:25 Lymphocytes % (Manual) 1.0 % (13.4-35.0) L 06/15/21 05:53 Reactive Lymphs % (Man) 1.0 % 06/01/21 07:10 Monocytes % (Manual) 3.0 % (0.0-7.3) 06/17/21 06:25 Myelocytes % 1.0 % 06/13/21 06:05 Nucleated RBC % Not Reportable 06/17/21 06:25 Seg Neutrophils # [employer] 06/01/21 07:10 Seg Neutrophils # Man 4.2 K/mm3 (1.8-7.7) 06/17/21 06:25 Band Neutrophils # 0.1 K/mm3 06/17/21 06:25 Lymphocytes # (Manual) 0.0 K/mm3 (1.2-5.4) L 06/17/21 06:25 Abs React Lymphs (Man) 0.0 K/mm3 06/17/21 06:25 Monocytes # (Manual) 0.1 K/mm3 (0.0-0.8) 06/17/21 06:25 Eosinophils # (Manual) 0.0 K/mm3 (0.0-0.4) 06/17/21 06:25 Basophils # (Manual) 0.0 K/mm3 (0.0-0.1) 06/17/21 06:25 Metamyelocytes # 0.0 K/mm3 06/17/21 06:25 Myelocytes # 0.0 K/mm3 06/17/21 06:25 Promyelocytes # 0.0 K/mm3 06/17/21 06:25 Blast Cells # 0.0 K/mm3 06/17/21 06:25 WBC Morphology Not Reportable 06/17/21 06:25 Hypersegmented Neuts Not Reportable 06/17/21 06:25 Hyposegmented Neuts Not Reportable 06/17/21 06:25 Hypogranular Neuts Not Reportable 06/17/21 06:25 Smudge Cells Not Reportable 06/17/21 06:25 Toxic Granulation Not Reportable 06/17/21 06:25 Toxic Vacuolation Not Reportable 06/17/21 06:25 Dohle Bodies Not Reportable 06/17/21 06:25 Pelger-Huet Anomaly Not Reportable 06/17/21 06:25 Kaci Rods Not Reportable 06/17/21 06:25 Platelet Estimate Consistent w auto 06/17/21 06:25 Clumped Platelets Not Reportable 06/17/21 06:25 Plt Clumps, EDTA Not Reportable 06/17/21 06:25 Large Platelets Not Reportable 06/17/21 06:25 Giant Platelets Not Reportable 06/17/21 06:25 Platelet Satelliting Not Reportable 06/17/21 06:25 Plt Morphology Comment Not Reportable 06/17/21 06:25 RBC Morphology Normal 06/17/21 06:25 Dimorphic RBCs Not Reportable 06/17/21 06:25 Polychromasia Not Reportable 06/17/21 06:25 Hypochromasia Not Reportable 06/17/21 06:25 Poikilocytosis Not Reportable 06/17/21 06:25 Anisocytosis Not Reportable 06/17/21 06:25 Microcytosis Not Reportable 06/17/21 06:25 Macrocytosis Not Reportable 06/17/21 06:25 Spherocytes Not Reportable 06/17/21 06:25 Pappenheimer Bodies Not Reportable 06/17/21 06:25 Sickle Cells Not Reportable 06/17/21 06:25 Target Cells Not Reportable 06/17/21 06:25 Tear Drop Cells Not Reportable 06/17/21 06:25 Ovalocytes Not Reportable 06/17/21 06:25 Helmet Cells Not Reportable 06/17/21 06:25 [place] Bodies Not Reportable 06/17/21 06:25 [place] Rings Not Reportable 06/17/21 06:25 [place] Cells Not Reportable 06/17/21 06:25 Bite Cells Not Reportable 06/17/21 06:25 Crenated Cell Not Reportable 06/17/21 06:25 Elliptocytes Not Reportable 06/17/21 06:25 Acanthocytes (Spur) Not Reportable 06/17/21 06:25 Rouleaux Not Reportable 06/17/21 06:25 Hemoglobin C Crystals Not Reportable 06/17/21 06:25 Schistocytes Not Reportable 06/17/21 06:25 Malaria parasites Not Reportable 06/17/21 06:25 Dick Bodies Not Reportable 06/17/21 06:25 Hem Pathologist Commnt No 06/17/21 06:25 PT 19.2 Sec. (12.2-14.9) H 06/19/21 09:37 INR 1.46 (0.87-1.13) H 06/19/21 09:37 APTT 54.3 Sec. (24.2-36.6) H 06/19/21 09:37 D-Dimer 3584.01 ng/mlDDU (0-234) H 05/27/21 08:09 ABG pH 7.249 (7.320-7.450) L 06/22/21 04:57 POC ABG pCO2 62.9 mmHg (32.0-48.0) H 06/22/21 04:57 ABG pCO2 70.2 mm Hg 06/20/21 18:00 POC ABG pO2 74.4 mmHg (83-108) L 06/22/21 04:57 ABG pO2 209.0 mm Hg (80.0-90.0) H 06/20/21 18:00 POC ABG HCO3 26.9 06/22/21 04:57 ABG HCO3 26.1 mmol/L (20.0-26.0) H 06/20/21 18:00 ABG O2 Saturation 93.5 (0-100) 06/22/21 04:57 ABG O2 Content 10.6 (0.0-44) 06/20/21 18:00 POC ABG Base Excess -0.8 06/22/21 04:57 ABG Base Excess -2.3 mmol/L (-2.0-3.0) L 06/20/21 18:00 ABG Hemoglobin 8.4 (12.0-17.5) L 06/22/21 04:57 ABG Oxyhemoglobin 92.3 (94-98) L 06/22/21 04:57 ABG Carboxyhemoglobin 1.7 % (0.0-5.0) 06/20/21 18:00 ABG Methemoglobin 0.3 (0.0-1.5) 06/22/21 04:57 ABG Sodium 134.4 mmol/L (136.0-145.0) L 06/22/21 04:57 ABG Potassium 3.2 mmol/L (3.40-4.50) L 06/22/21 04:57 ABG Chloride 101.0 mmol/L (98-107) 06/22/21 04:57 ABG Glucose 116 mg/dL (65-95) H 06/22/21 04:57 VBG pH 7.254 (7.320-7.420) L 05/24/21 02:09 Oxyhemoglobin 96.7 % (95.0-99.0) 06/20/21 18:00 Carboxyhemoglobin 1.0 (0.5-1.5) 06/22/21 04:57 FiO2 100 % 06/20/21 18:00 FiO2 % 70.0 06/22/21 04:57 Sodium 136 mmol/L (137-145) L D 06/22/21 04:57 Potassium 3.6 mmol/L (3.6-5.0) 06/22/21 04:57 Chloride 101.8 mmol/L (98-107) 06/22/21 04:57 Carbon Dioxide 22 mmol/L (22-30) 06/22/21 04:57 Anion Gap 16 mmol/L 06/22/21 04:57 BUN 61 mg/dL (9-20) H 06/22/21 04:57 Creatinine 3.2 mg/dL (0.8-1.3) H 06/22/21 04:57 Estimated GFR 24 ml/min 06/22/21 04:57 BUN/Creatinine Ratio 19 % 06/22/21 04:57 Glucose 115 mg/dL (75-100) H 06/22/21 04:57 POC Glucose 106 mg/dL (70-105) H 06/22/21 11:03 Lactic Acid 1.00 mmol/L (0.7-2.0) 06/19/21 16:20 Calcium 7.4 mg/dL (8.4-10.2) L 06/22/21 04:57 Phosphorus 5.60 mg/dL (2.5-4.5) H D 06/18/21 10:56 Magnesium 2.30 mg/dL (1.7-2.3) 06/18/21 10:56 Ferritin 2742.0 ng/mL (30.0-300.0) H 05/27/21 08:09 Total Bilirubin 0.20 mg/dL (0.1-1.2) 06/21/21 07:45 AST 51 units/L (5-40) H 06/21/21 07:45 ALT 14 units/L (7-56) 06/21/21 07:45 Alkaline Phosphatase 122 units/L (35-129) 06/21/21 07:45 Ammonia 22.0 umol/L (25-60) L 05/23/21 18:48 Lactate Dehydrogenase 642 units/L (91-180) H 05/27/21 08:09 Troponin T 0.105 ng/mL (0.00-0.029) H* 06/20/21 05:00 C-Reactive Protein 11.50 mg/dL (0.00-1.30) H 06/19/21 16:15 Total Protein 3.9 g/dL (6.3-8.2) L 06/21/21 07:45 Albumin 1.3 g/dL (3.9-5) L 06/21/21 07:45 Albumin/Globulin Ratio 0.5 % 06/21/21 07:45 Triglycerides 295 mg/dL (2-149) H 06/19/21 12:19 Cholesterol 85 mg/dL (50-199) 06/19/21 12:19 LDL Cholesterol Direct 24 mg/dL (50-130) L 06/19/21 12:19 HDL Cholesterol 17 mg/dL (40-59) L 06/19/21 12:19 Cholesterol/HDL Ratio 5.00 % 06/19/21 12:19 Procalcitonin 19.60 ng/mL (<0.15) 06/18/21 Unknown TSH 1.150 mlU/mL (0.270-4.200) 05/23/21 18:48 Arterial Blood Glucose 116 mg/dL (65-95) H 06/22/21 04:57 Arterial Blood Ionized Calcium 4.5 mg/dL (4.6-5.3) L 05/29/21 17:58 Urine Color Eli (Yellow) 06/20/21 12:35 Urine Turbidity Cloudy (Clear) 06/20/21 12:35 Urine pH 5.0 (5.0-7.0) 06/20/21 12:35 Ur Specific [place] 1.016 (1.003-1.030) 06/20/21 12:35 Urine Protein 100 mg/dl mg/dL (Negative) 06/20/21 12:35 Urine Glucose (UA) 50 mg/dL (Negative) 06/20/21 12:35 Urine Ketones Neg mg/dL (Negative) 06/20/21 12:35 Urine Blood Mod (Negative) 06/20/21 12:35 Urine Nitrite Neg (Negative) 06/20/21 12:35 Urine Bilirubin Neg (Negative) 06/20/21 12:35 Urine Urobilinogen < 2.0 mg/dL (<2.0) 06/20/21 12:35 Ur Leukocyte Esterase Neg (Negative) 06/20/21 12:35 Urine WBC (Auto) 46.0 /HPF (0.0-6.0) H 06/20/21 12:35 Urine RBC (Auto) 74.0 /HPF (0.0-6.0) 06/20/21 12:35 U Epithel Cells (Auto) 2.0 /HPF (0-13.0) 05/30/21 01:00 Urine Bacteria (Auto) 4+ /HPF (Negative) 06/20/21 12:35 Urine WBC Clumps Few /HPF 06/20/21 12:35 Uric Acid Crystals Few 05/30/21 01:00 Amorphous Crystals 3+ 06/20/21 12:35 Granular Casts 90 /LPF 06/20/21 12:35 Urine Mucus Few /HPF 06/20/21 12:35 Ur Yeast w Hyphae 2+ /HPF 06/18/21 Unknown Urine Yeast (Budding) 3+ /HPF 06/18/21 Unknown Urine Sperm Few /HPF (TRACK LINER OPERATOR) 06/20/21 12:35 Urine Eosinophils None seen (None Seen) 06/18/21 11:24 Urine Creatinine 49.9 mg/dL (0.1-20.0) H 06/19/21 11:14 Urine Sodium 56 mmol/L 06/19/21 11:14 Fraction Sodium Excret 2.3 06/19/21 11:14 Nasal Screen MRSA (PCR) Negative (Negative) 06/15/21 Unknown Vancomycin Trough 18.1 ug/mL (5.0-20.0) 06/16/21 22:30 Plasma/Serum Alcohol < 0.01 % (0-0.07) 05/23/21 18:48 Proteinase 3 (PR3) Ab <1.0 AI (<1.0) 05/24/21 20:57 Myeloperoxidase Ab <1.0 AI (<1.0) 05/24/21 20:57 Complement C3 108 mg/dL (82-185) 05/24/21 20:57 Complement C4 29 mg/dL (15-53) 05/24/21 20:57 Coronavirus (PCR) Negative (Negative) 05/26/21 08:41 Blood Type A POSITIVE 06/20/21 22:38 Antibody Screen Negative 06/20/21 22:38 Crossmatch See Detail 06/20/21 22:38 Microbiology: Microbiology 06/20/21 12:35 Urine,Catheterized - Indwelling Catheter Urine Culture - Preliminary 06/17/21 13:15 Peripheral/Venous Blood Culture - Preliminary NO GROWTH AFTER 4 DAYS 06/17/21 13:48 Peripheral/Venous Blood Culture - Preliminary NO GROWTH AFTER 4 DAYS Heart/IV: Voiding Method Indwelling Catheter Active Medications - Current Medications Current Medications: Generic Name Dose Route Start Last Admin Trade Name Freq PRN Reason Stop Dose Admin Acetaminophen 650 mg 06/19/21 12:00 06/19/21 12:15 Acetaminophen 325 Mg/10.15 Ml Oral Liqd Unit Dose FEEDTUBE 650 mg Q6H PRN Administration Pain MILD(1-3)/Fever >100.5/LUCAS Albuterol/Ipratropium 1 ampul 06/07/21 20:00 06/22/21 09:00 Ipratropium/Albuterol Sulfate 3 Ml Ampul.Neb IH 1 ampul TIDRT MIKE Administration Lipase/Protease/Amylase 1 each 06/18/21 12:21 Lipase 10,500/Protease 25,000/Amylase 43,750 (Units) Dr Cap FEEDTUBE PRN PRN For Clogged Feeding Tube Famotidine 10 mg 06/19/21 10:00 06/22/21 09:44 Famotidine 20 Mg/2 Ml Inj IV 10 mg BID MIKE Administration Fentanyl 50 mcg 06/17/21 17:00 Fentanyl 100 Mcg/2 Ml Inj IV Q10MIN PRN ANALGESIA Hydrophilic Ointment 1 applic 06/17/21 17:00 Lip Therapy Vaseline TP Q2HR PRN Dry Lips Metronidazole 500 mg in 100 mls @ 100 mls/hr 06/08/21 13:00 06/22/21 05:00 Flagyl 500 Mg/100 Ml IV 06/29/21 05:59 100 mls/hr Q8H MIKE Administration Protocol Fentanyl Citrate 2,000 mcg in 100 mls @ 3.725 mls/hr 06/17/21 17:00 06/22/21 08:34 Fentanyl Drip Premix IV 4 mcg/kg/hr TITR MIKE 14.9 mls/hr Administration Protocol 1 MCG/KG/HR NORepinephrine/NS 8 MG-250 ML 8 mg in 250 mls @ 3.75 mls/hr 06/18/21 23:00 06/22/21 01:55 Norepinephrine/Ns 8 Mg-250 Ml (Double Conc) IV 10 mcg/min TITRATE MIKE 18.75 mls/hr Administration Protocol 2 MCG/MIN Cefepime HCl 2 gm in 100 mls @ 200 mls/hr 06/20/21 06:00 06/22/21 09:45 Cefepime/Ns 2 Gm/100 Ml IV 06/29/21 06:29 Infused Q24H MIKE Infusion Protocol Sodium Chloride 1,000 mls @ 50 mls/hr 06/20/21 09:30 Nacl 0.9% 1000 Ml IV DIRECT MIKE Propofol 1,000 mg in 100 mls @ 2.226 mls/hr 06/20/21 13:00 06/21/21 21:56 Diprivan 10 Mg/Ml IV 5 mcg/kg/min TITR MIKE 2.226 mls/hr Administration Protocol 5 MCG/KG/MIN Sodium Chloride 100 mls @ 999 mls/hr 06/20/21 14:05 Nacl 0.9% IV KAVITA PRN Hypotension Morphine Sulfate 2 mg 05/23/21 22:01 06/17/21 10:01 Morphine 2 Mg/1 Ml Inj IV 2 mg Q4H PRN Administration Pain, Moderate (4-6) Multi-Ingred Cream/Lotion/Oil/Oint 1 applic 06/17/21 18:00 Mineral Oil/Petrolatum, White Ophth Oint 3.5 Gm OU Q4HR PRN Dry Eye(s) Ondansetron HCl 4 mg 06/04/21 13:41 06/09/21 22:05 Ondansetron 4 Mg/2 Ml Inj IV 4 mg Q4H PRN Administration Nausea And Vomiting Senna/Docusate Sodium 1 tab 06/17/21 22:00 06/22/21 09:44 Sennosides/Docusate Sodium 8.6/50 Mg Tab FEEDTUBE Not Given BID MIKE Simple Syrup 15 ml 06/18/21 12:21 Simple Syrup 15 Ml FEEDTUBE PRN PRN Hypoglycemia Simple Syrup 30 ml 06/18/21 12:21 Simple Syrup 15 Ml FEEDTUBE PRN PRN Hypoglycemia Sodium Bicarbonate 325 mg 06/18/21 12:21 Sodium Bicarbonate 325 Mg Tab FEEDTUBE PRN PRN For Clogged Feeding Tube Sodium Chloride 10 ml 05/23/21 22:01 06/22/21 09:44 Sodium Chloride 0.9% 10 Ml Flush Syringe IV 10 ml PRN PRN Administration LINE FLUSH Nutrition/Malnutrition Assess - Dietary Evaluation Nutrition/Malnutrition Findings: Nutrition Notes Start: 05/25/21 0 9:33 Freq: Status: Active Protocol: Document 06/20/21 12:02 GB (Rec: 06/20/21 12:17 GB [email or web address]) Nutrition Notes Initial or Follow up Reassessment Current Diagnosis Respiratory Failure Other Pertinent Diagnosis Accute Kidney Injury, Pneumonia, PUI Covid-19. Current Diet NPO, Tube Feeding Nepro Labs/Tests 06/20: BUN 108, creatinine 4.3 , Glu 152, Ca 7/1 Pertinent Medications fentanyl citrate, Norepinhephrin/Ns8 Mg250 Height 5 ft 11 in Weight 74.2 kg Belva Body Weight (kg) 78.18 BMI 22.8 Weight change and time frame 05/24: 77.111kg 06/20: 74.2kg change of -2.911kg for -3.7% signficance. Stable for 30 days. Weight Status Appropriate Subjective/Other Information TF at goal rate. Per chart: pt name is Marty Sanabria age 59yrs. Last BM: 06/19 MD note 06/20: Pt experienced PEA arrest today. Family wants full care and continue full code status. Percent of energy/protein needs met: TF at goal rate meets 75% or greater EEN Burn Absent Trauma Absent GI Symptoms Diarrhea Difficulty In Swallowing Food Allergy No Skin Integrity/Comment PI: buttocks Current % PO Other Minimum of two criteria No physical signs of malnutrition #2 Nutrition Diagnosis No nutrition diagnosis at this time Diagnosis Progress(for reassessment Resolved documentation) #1 Nutrition Diagnosis Swallowing difficulty Comments: 06/20: Tube feeding started , Nepro @41ml/hr at goal, tolerating Etiology acute illness As Evidenced by Signs and Symptoms Intubated, TF Diagnosis Progress(for reassessment Continues documentation) Is patient on ventilator? Yes Is Patient Ambulatory and/or Out of Bed No REE-([facility]-confined to bed) 1923.336 Kcal/Kg value to use for calculation 25 Approximate Energy Requirements Using 1855 kcal/Kg Calculation Used for Recommendations Kcal/kg Additional Notes protein needs: 1.0-1.2 g/Kg/ day @78kg; 78-94 gr/day fluid needs: 1.0 ml/kcal, or as per MD. Nutrition Intervention Change Diet Order: NPO - continue Nutrition Support: TF- Nepro @41ml/hr continue Flush 190ml/4hr Total fluids: TF at goal + Flush = 1855ml Kcal 1,771 Protein (gm) 80 Fluid (mL) 715 Add Supplement/Snack (indicate name/kcal n/a /protein ) Goal #1 Maintain body weight within +/ -3% of current BWt during LOS. 06/20: met, -3.7% in 30 days, continues Goal #2 Reach and maintain acceptable chemistry lab values during LOS. 06/20: showing improvement, continues Goal #3 Tolerate TF at goal 41ml/hr during LOS 06/20: met, continues Follow-Up By: 06/24/21 Additional Comments f/u: TF, vent status
--- NOTE | 2021-06-22 13:56 | Progress Note ---
Assessment and Plan Impression: * Acute kidney injury secondary to ATN likely related to COVID 19 * Acute hypoxic respiratory failure secondary to COVID 19 PNA * Azotemia * Hyperkalemia * Metabolic acidosis * Hypernatremia Plan: * creatinine is stable 1.2->1.4->1.2->1.1->1.2->1.3->1.3 > 1.4 > 1.3> 1.8 > 3.2 > 4.3 * Vasculitis work-up negative, including ANCA as well as complement levels. * Keep MAP>65 * Management of COVID 19 PNA to primary team/ID * Dose medications for renal function * Renal diet * follow up lytes prn * ANGELES most likely secondary to ATN. No evidence of renal recovery at this time. * Uneventful hemodialysis yesterday. No urgent indication for dialysis today. Reassess patient tomorrow regarding need for dialysis Subjective Date of service: 06/22/21 Principal diagnosis: Acute hypoxemic resp failure; Pneumonia; PUI COVID-19 infection Interval history: Patient is currently on the ventilator. On 70% FiO2. Oxygen saturation is 92%. He is also on a Levophed drip. Objective - Vital Signs Vital signs: Vital Signs - 12hr 06/22/21 06/22/21 06/22/21 02:01 02:15 02:31 Temperature Pulse Rate 129 H 129 H 129 H Pulse Rate [ Anterior Bilateral Throughout] Pulse Rate [ From Monitor] Respiratory 30 H 30 H 30 H Rate Respiratory Rate [Anterior Bilateral Throughout] Blood Pressure 122/60 121/60 120/58 O2 Sat by Pulse 94 94 94 Oximetry 06/22/21 06/22/21 06/22/21 02:45 03:00 03:15 Temperature Pulse Rate 128 H 127 H 127 H Pulse Rate [ Anterior Bilateral Throughout] Pulse Rate [ From Monitor] Respiratory 30 H 30 H 30 H Rate Respiratory Rate [Anterior Bilateral Throughout] Blood Pressure 116/60 125/59 119/58 O2 Sat by Pulse 94 95 94 Oximetry 06/22/21 06/22/21 06/22/21 03:31 03:45 04:00 Temperature 99.1 F Pulse Rate 126 H 126 H 125 H Pulse Rate [ Anterior Bilateral Throughout] Pulse Rate [ From Monitor] Respiratory 26 H 30 H 23 Rate Respiratory Rate [Anterior Bilateral Throughout] Blood Pressure 124/62 135/59 O2 Sat by Pulse 94 95 93 Oximetry 06/22/21 06/22/21 06/22/21 04:01 04:15 04:31 Temperature Pulse Rate 126 H 124 H 126 H Pulse Rate [ Anterior Bilateral Throughout] Pulse Rate [ From Monitor] Respiratory 24 30 H 30 H Rate Respiratory Rate [Anterior Bilateral Throughout] Blood Pressure 130/58 122/58 112/53 O2 Sat by Pulse 95 94 95 Oximetry 06/22/21 06/22/21 06/22/21 04:45 05:00 05:15 Temperature Pulse Rate 125 H 123 H 125 H Pulse Rate [ Anterior Bilateral Throughout] Pulse Rate [ From Monitor] Respiratory 30 H 30 H 30 H Rate Respiratory Rate [Anterior Bilateral Throughout] Blood Pressure 105/55 107/62 125/63 O2 Sat by Pulse 94 95 95 Oximetry 06/22/21 06/22/21 06/22/21 05:26 05:31 05:45 Temperature Pulse Rate 124 H 124 H 125 H Pulse Rate [ Anterior Bilateral Throughout] Pulse Rate [ From Monitor] Respiratory 30 H 29 H Rate Respiratory Rate [Anterior Bilateral Throughout] Blood Pressure 107/62 117/59 131/60 O2 Sat by Pulse 96 96 95 Oximetry 06/22/21 06/22/21 06/22/21 06:01 06:15 06:30 Temperature Pulse Rate 124 H 125 H 124 H Pulse Rate [ Anterior Bilateral Throughout] Pulse Rate [ From Monitor] Respiratory 30 H 30 H 30 H Rate Respiratory Rate [Anterior Bilateral Throughout] Blood Pressure 131/60 120/60 134/62 O2 Sat by Pulse 97 96 97 Oximetry 06/22/21 06/22/21 06/22/21 06:45 07:01 07:15 Temperature Pulse Rate 123 H 122 H 121 H Pulse Rate [ Anterior Bilateral Throughout] Pulse Rate [ From Monitor] Respiratory 20 28 H 18 Rate Respiratory Rate [Anterior Bilateral Throughout] Blood Pressure 124/57 123/58 132/60 O2 Sat by Pulse 95 95 96 Oximetry 06/22/21 06/22/21 06/22/21 07:31 07:45 08:00 Temperature Pulse Rate 122 H 122 H Pulse Rate [ Anterior Bilateral Throughout] Pulse Rate [ 121 H From Monitor] Respiratory 14 30 H 30 H Rate Respiratory Rate [Anterior Bilateral Throughout] Blood Pressure 127/59 116/58 O2 Sat by Pulse 95 96 95 Oximetry 06/22/21 06/22/21 06/22/21 08:01 08:05 08:11 Temperature 99.3 F Pulse Rate 122 H 121 H Pulse Rate [ Anterior Bilateral Throughout] Pulse Rate [ From Monitor] Respiratory 30 H Rate Respiratory Rate [Anterior Bilateral Throughout] Blood Pressure 125/62 O2 Sat by Pulse 94 Oximetry 06/22/21 06/22/21 06/22/21 08:15 08:31 08:45 Temperature Pulse Rate 122 H 122 H 123 H Pulse Rate [ Anterior Bilateral Throughout] Pulse Rate [ From Monitor] Respiratory 30 H 30 H 22 Rate Respiratory Rate [Anterior Bilateral Throughout] Blood Pressure 121/57 123/57 118/58 O2 Sat by Pulse 95 94 95 Oximetry 06/22/21 06/22/21 06/22/21 08:51 09:01 09:15 Temperature Pulse Rate 115 H 124 H 123 H Pulse Rate [ 124 H Anterior Bilateral Throughout] Pulse Rate [ From Monitor] Respiratory 25 H 30 H Rate Respiratory 30 H Rate [Anterior Bilateral Throughout] Blood Pressure 123/70 105/52 127/54 O2 Sat by Pulse 94 93 92 Oximetry 06/22/21 06/22/21 06/22/21 09:31 09:45 10:01 Temperature Pulse Rate 123 H 123 H 129 H Pulse Rate [ Anterior Bilateral Throughout] Pulse Rate [ From Monitor] Respiratory 19 21 12 Rate Respiratory Rate [Anterior Bilateral Throughout] Blood Pressure 122/58 126/55 139/58 O2 Sat by Pulse 92 92 83 L Oximetry 06/22/21 06/22/21 06/22/21 10:15 10:30 10:45 Temperature Pulse Rate 128 H 130 H 130 H Pulse Rate [ Anterior Bilateral Throughout] Pulse Rate [ From Monitor] Respiratory 21 16 18 Rate Respiratory Rate [Anterior Bilateral Throughout] Blood Pressure 129/60 125/57 128/55 O2 Sat by Pulse 87 77 L 79 L Oximetry 06/22/21 06/22/21 11:01 11:15 Temperature Pulse Rate 129 H 129 H Pulse Rate [ Anterior Bilateral Throughout] Pulse Rate [ From Monitor] Respiratory 30 H 19 Rate Respiratory Rate [Anterior Bilateral Throughout] Blood Pressure 104/53 133/58 O2 Sat by Pulse 91 91 Oximetry - General Appearance General appearance: well-developed, well-nourished, appears stated age EENT: PERRL, mucous membranes moist Neck: no JVD, no thyromegaly, no carotid bruit, supple Respiratory: Present: Ronchi (Bilateral scattered rhonchi), Other (Left-sided chest tube in place) Cardiology: regular, normal heart rate Gastrointestinal: normal, normoactive bowel sounds Integumentary: other (1+ edema. Right femoral Vas-Cath in place) - Lab 06/22/21 09:42 06/22/21 04:57 Most recent lab results ABG pH 7.249 (7.320-7.450) L 06/22/21 04:57 ABG pCO2 70.2 mm Hg 06/20/21 18:00 ABG pO2 209.0 mm Hg (80.0-90.0) H 06/20/21 18:00 ABG HCO3 26.1 mmol/L (20.0-26.0) H 06/20/21 18:00 ABG O2 Saturation 93.5 (0-100) 06/22/21 04:57 Calcium 7.4 mg/dL (8.4-10.2) L 06/22/21 04:57 Phosphorus 5.60 mg/dL (2.5-4.5) H D 06/18/21 10:56 Magnesium 2.30 mg/dL (1.7-2.3) 06/18/21 10:56 Urine Creatinine 49.9 mg/dL (0.1-20.0) H 06/19/21 11:14 Urine Sodium 56 mmol/L 06/19/21 11:14 Medications & Allergies - Medications Allergies/Adverse Reactions: Allergies No Known Allergies Allergy (Unverified 02/12/17 15:47) Home Medications: Home Medications Medication Instructions Recorded Confirmed Last Taken Type No Known Home Medications [No 05/31/21 05/31/21 Unknown History Reported Home Medications] Active Medications: Generic Name Dose Route Start Last Admin Trade Name Freq PRN Reason Stop Dose Admin Acetaminophen 650 mg 06/19/21 12:00 06/19/21 12:15 Acetaminophen 325 Mg/10.15 Ml Oral Liqd Unit Dose FEEDTUBE 650 mg Q6H PRN Administration Pain MILD(1-3)/Fever >100.5/LUCAS Albuterol/Ipratropium 1 ampul 06/07/21 20:00 06/22/21 09:00 Ipratropium/Albuterol Sulfate 3 Ml Ampul.Neb IH 1 ampul TIDRT MIKE Administration Lipase/Protease/Amylase 1 each 06/18/21 12:21 Lipase 10,500/Protease 25,000/Amylase 43,750 (Units) Dr Cap FEEDTUBE PRN PRN For Clogged Feeding Tube Famotidine 10 mg 06/19/21 10:00 06/22/21 09:44 Famotidine 20 Mg/2 Ml Inj IV 10 mg BID MIKE Administration Fentanyl 50 mcg 06/17/21 17:00 Fentanyl 100 Mcg/2 Ml Inj IV Q10MIN PRN ANALGESIA Hydrophilic Ointment 1 applic 06/17/21 17:00 Lip Therapy Vaseline TP Q2HR PRN Dry Lips Metronidazole 500 mg in 100 mls @ 100 mls/hr 06/08/21 13:00 06/22/21 05:00 Flagyl 500 Mg/100 Ml IV 06/29/21 05:59 100 mls/hr Q8H MIKE Administration Protocol Fentanyl Citrate 2,000 mcg in 100 mls @ 3.725 mls/hr 06/17/21 17:00 06/22/21 08:34 Fentanyl Drip Premix IV 4 mcg/kg/hr TITR MIKE 14.9 mls/hr Administration Protocol 1 MCG/KG/HR NORepinephrine/NS 8 MG-250 ML 8 mg in 250 mls @ 3.75 mls/hr 06/18/21 23:00 06/22/21 01:55 Norepinephrine/Ns 8 Mg-250 Ml (Double Conc) IV 10 mcg/min TITRATE MIKE 18.75 mls/hr Administration Protocol 2 MCG/MIN Cefepime HCl 2 gm in 100 mls @ 200 mls/hr 06/20/21 06:00 06/22/21 09:45 Cefepime/Ns 2 Gm/100 Ml IV 06/29/21 06:29 Infused Q24H MIKE Infusion Protocol Sodium Chloride 1,000 mls @ 50 mls/hr 06/20/21 09:30 Nacl 0.9% 1000 Ml IV DIRECT MIKE Propofol 1,000 mg in 100 mls @ 2.226 mls/hr 06/20/21 13:00 06/21/21 21:56 Diprivan 10 Mg/Ml IV 5 mcg/kg/min TITR MIKE 2.226 mls/hr Administration Protocol 5 MCG/KG/MIN Sodium Chloride 100 mls @ 999 mls/hr 06/20/21 14:05 Nacl 0.9% IV KAVITA PRN Hypotension Morphine Sulfate 2 mg 05/23/21 22:01 06/17/21 10:01 Morphine 2 Mg/1 Ml Inj IV 2 mg Q4H PRN Administration Pain, Moderate (4-6) Multi-Ingred Cream/Lotion/Oil/Oint 1 applic 06/17/21 18:00 Mineral Oil/Petrolatum, White Ophth Oint 3.5 Gm OU Q4HR PRN Dry Eye(s) Ondansetron HCl 4 mg 06/04/21 13:41 06/09/21 22:05 Ondansetron 4 Mg/2 Ml Inj IV 4 mg Q4H PRN Administration Nausea And Vomiting Senna/Docusate Sodium 1 tab 06/17/21 22:00 06/22/21 09:44 Sennosides/Docusate Sodium 8.6/50 Mg Tab FEEDTUBE Not Given BID MIKE Simple Syrup 15 ml 06/18/21 12:21 Simple Syrup 15 Ml FEEDTUBE PRN PRN Hypoglycemia Simple Syrup 30 ml 06/18/21 12:21 Simple Syrup 15 Ml FEEDTUBE PRN PRN Hypoglycemia Sodium Bicarbonate 325 mg 06/18/21 12:21 Sodium Bicarbonate 325 Mg Tab FEEDTUBE PRN PRN For Clogged Feeding Tube Sodium Chloride 10 ml 05/23/21 22:01 06/22/21 09:44 Sodium Chloride 0.9% 10 Ml Flush Syringe IV 10 ml PRN PRN Administration LINE FLUSH
--- NOTE | 2021-06-22 14:57 | Progress Note ---
Assessment and Plan Cardiopulmonary arrest with ROSC Left pneumothorax Acute hypoxemic respiratory failure on MVS Bilateral pneumonia Interstitial changes with GGO on imaging h/o 2019 novel coronavirus infection - VAP bundle addressed, aspiration precautions HOB >40 - continue lung protective strategies - continue bronchodilators with pulmonary hygiene per RT - wean per pulmonary driven protocols otherwise - Titrate supplemental oxygen for target SpO2 88-90% -Vasopressor support, keep MAP>65. - continue accuchecks with glycemic control per SSI (While critically ill target blood glucose of 140-180 mg/dL; avoid hypoglycemia) - avoid nephrotoxins, renally dose all medications - continue to avoid benzodiazepines, reduce the possibility of delirium - prn analgesia per CPOT score - Maintenance of sleep-wake cycle, avoid delirium -In view of hypotesnion, and the patient is minimally responsive- stop Propofol, continue with Fentanyl - Daily SAT and SBT assessment as tolerated - Enteric nutritional support trickle feeding -Antibiotics- broad spectrum for possible HAP. ID following - Stress ulcer and VTE prophylaxis - continue mobility protocols for pressure ulcer prophylaxis - Monitor hemodynamics closely - continue other care per attending / other consultants -Family want to come in to visit today -Supportive HD as tolerated by hemodynamics- Renal input appreciated -Chest tube management per General surgery COVID SPECIFIC INTERVENTIONS - repeat COVID-19 test result negative CONDITION: CRITICAL PROGNOSIS: GUARDED CODE STATUS: FULL CODE The high probability of a clinically significant, sudden or life-threatening deterioration of the [respiratory, GI, renal & cardiovascular] system(s) required my full and direct attention, intervention and personal management. The aggregate critical care time was [45] minutes without overlap. Time includes spent on; [x] Data Review and interpretation [x] Patient assessment and monitoring of vital signs [x] Documentation [x] Medication orders and management Subjective Date of service: 06/22/21 Principal diagnosis: Acute hypoxemic resp failure; Pneumonia; PUI COVID-19 infection Interval history: Seen and examined at bedside; 24hour events reviewed; nursing and respiratory care staff consulted; no adverse overnight events reported to me; s/p PEA arrest , ROSC after 7 minutes. Pneumothorax with left chest tube in place. Critically ill with some episodes of desaturations requiring increase in FIO2 to 80%, Remains on PEEP +6 2 pressor shock with ongoing hypotension. High grade fevers (Tmax 101.7), no vomiting, some oropharyngeal bleeding. Left chest tube to wall suction, no leak On Propofol and Fentanyl Objective Vital Signs - 12hr 06/22/21 06/22/21 06/22/21 03:00 03:15 03:31 Temperature Pulse Rate 127 H 127 H 126 H Pulse Rate [ Anterior Bilateral Throughout] Pulse Rate [ From Monitor] Respiratory 30 H 30 H 26 H Rate Respiratory Rate [Anterior Bilateral Throughout] Blood Pressure 125/59 119/58 124/62 O2 Sat by Pulse 95 94 94 Oximetry 06/22/21 06/22/21 06/22/21 03:45 04:00 04:01 Temperature 99.1 F Pulse Rate 126 H 125 H 126 H Pulse Rate [ Anterior Bilateral Throughout] Pulse Rate [ From Monitor] Respiratory 30 H 23 24 Rate Respiratory Rate [Anterior Bilateral Throughout] Blood Pressure 135/59 130/58 O2 Sat by Pulse 95 93 95 Oximetry 06/22/21 06/22/21 06/22/21 04:15 04:31 04:45 Temperature Pulse Rate 124 H 126 H 125 H Pulse Rate [ Anterior Bilateral Throughout] Pulse Rate [ From Monitor] Respiratory 30 H 30 H 30 H Rate Respiratory Rate [Anterior Bilateral Throughout] Blood Pressure 122/58 112/53 105/55 O2 Sat by Pulse 94 95 94 Oximetry 06/22/21 06/22/21 06/22/21 05:00 05:15 05:26 Temperature Pulse Rate 123 H 125 H 124 H Pulse Rate [ Anterior Bilateral Throughout] Pulse Rate [ From Monitor] Respiratory 30 H 30 H Rate Respiratory Rate [Anterior Bilateral Throughout] Blood Pressure 107/62 125/63 107/62 O2 Sat by Pulse 95 95 96 Oximetry 06/22/21 06/22/21 06/22/21 05:31 05:45 06:01 Temperature Pulse Rate 124 H 125 H 124 H Pulse Rate [ Anterior Bilateral Throughout] Pulse Rate [ From Monitor] Respiratory 30 H 29 H 30 H Rate Respiratory Rate [Anterior Bilateral Throughout] Blood Pressure 117/59 131/60 131/60 O2 Sat by Pulse 96 95 97 Oximetry 06/22/21 06/22/21 06/22/21 06:15 06:30 06:45 Temperature Pulse Rate 125 H 124 H 123 H Pulse Rate [ Anterior Bilateral Throughout] Pulse Rate [ From Monitor] Respiratory 30 H 30 H 20 Rate Respiratory Rate [Anterior Bilateral Throughout] Blood Pressure 120/60 134/62 124/57 O2 Sat by Pulse 96 97 95 Oximetry 06/22/21 06/22/21 06/22/21 07:01 07:15 07:31 Temperature Pulse Rate 122 H 121 H 122 H Pulse Rate [ Anterior Bilateral Throughout] Pulse Rate [ From Monitor] Respiratory 28 H 18 14 Rate Respiratory Rate [Anterior Bilateral Throughout] Blood Pressure 123/58 132/60 127/59 O2 Sat by Pulse 95 96 95 Oximetry 06/22/21 06/22/21 06/22/21 07:45 08:00 08:01 Temperature Pulse Rate 122 H 122 H Pulse Rate [ Anterior Bilateral Throughout] Pulse Rate [ 121 H From Monitor] Respiratory 30 H 30 H 30 H Rate Respiratory Rate [Anterior Bilateral Throughout] Blood Pressure 116/58 125/62 O2 Sat by Pulse 96 95 94 Oximetry 06/22/21 06/22/21 06/22/21 08:05 08:11 08:15 Temperature 99.3 F Pulse Rate 121 H 122 H Pulse Rate [ Anterior Bilateral Throughout] Pulse Rate [ From Monitor] Respiratory 30 H Rate Respiratory Rate [Anterior Bilateral Throughout] Blood Pressure 121/57 O2 Sat by Pulse 95 Oximetry 06/22/21 06/22/21 06/22/21 08:31 08:45 08:51 Temperature Pulse Rate 122 H 123 H 115 H Pulse Rate [ 124 H Anterior Bilateral Throughout] Pulse Rate [ From Monitor] Respiratory 30 H 22 Rate Respiratory 30 H Rate [Anterior Bilateral Throughout] Blood Pressure 123/57 118/58 123/70 O2 Sat by Pulse 94 95 94 Oximetry 06/22/21 06/22/21 06/22/21 09:01 09:15 09:31 Temperature Pulse Rate 124 H 123 H 123 H Pulse Rate [ Anterior Bilateral Throughout] Pulse Rate [ From Monitor] Respiratory 25 H 30 H 19 Rate Respiratory Rate [Anterior Bilateral Throughout] Blood Pressure 105/52 127/54 122/58 O2 Sat by Pulse 93 92 92 Oximetry 06/22/21 06/22/21 06/22/21 09:45 10:01 10:15 Temperature Pulse Rate 123 H 129 H 128 H Pulse Rate [ Anterior Bilateral Throughout] Pulse Rate [ From Monitor] Respiratory 21 12 21 Rate Respiratory Rate [Anterior Bilateral Throughout] Blood Pressure 126/55 139/58 129/60 O2 Sat by Pulse 92 83 L 87 Oximetry 06/22/21 06/22/21 06/22/21 10:30 10:45 11:01 Temperature Pulse Rate 130 H 130 H 129 H Pulse Rate [ Anterior Bilateral Throughout] Pulse Rate [ From Monitor] Respiratory 16 18 30 H Rate Respiratory Rate [Anterior Bilateral Throughout] Blood Pressure 125/57 128/55 104/53 O2 Sat by Pulse 77 L 79 L 91 Oximetry 06/22/21 06/22/21 06/22/21 11:15 11:31 11:45 Temperature Pulse Rate 129 H 131 H 132 H Pulse Rate [ Anterior Bilateral Throughout] Pulse Rate [ From Monitor] Respiratory 19 30 H 20 Rate Respiratory Rate [Anterior Bilateral Throughout] Blood Pressure 133/58 128/55 131/52 O2 Sat by Pulse 91 90 93 Oximetry 06/22/21 06/22/21 06/22/21 12:00 12:15 12:30 Temperature Pulse Rate 131 H 132 H 132 H Pulse Rate [ Anterior Bilateral Throughout] Pulse Rate [ From Monitor] Respiratory 19 26 H 22 Rate Respiratory Rate [Anterior Bilateral Throughout] Blood Pressure 103/55 91/55 101/53 O2 Sat by Pulse 91 89 89 Oximetry 06/22/21 06/22/21 06/22/21 12:45 13:00 13:15 Temperature Pulse Rate 134 H 132 H 135 H Pulse Rate [ Anterior Bilateral Throughout] Pulse Rate [ From Monitor] Respiratory 17 17 22 Rate Respiratory Rate [Anterior Bilateral Throughout] Blood Pressure 84/54 99/54 102/48 O2 Sat by Pulse 86 88 85 Oximetry 06/22/21 06/22/21 06/22/21 13:31 13:45 14:00 Temperature Pulse Rate 135 H 135 H 133 H Pulse Rate [ Anterior Bilateral Throughout] Pulse Rate [ From Monitor] Respiratory 19 27 H 27 H Rate Respiratory Rate [Anterior Bilateral Throughout] Blood Pressure 116/52 111/46 86/44 O2 Sat by Pulse 87 87 87 Oximetry 06/22/21 06/22/21 06/22/21 14:15 14:30 14:45 Temperature Pulse Rate 131 H 132 H 139 H Pulse Rate [ Anterior Bilateral Throughout] Pulse Rate [ From Monitor] Respiratory 20 24 28 H Rate Respiratory Rate [Anterior Bilateral Throughout] Blood Pressure 90/51 87/41 137/56 O2 Sat by Pulse 94 92 92 Oximetry 06/22/21 14:50 Temperature 101.5 F H Pulse Rate Pulse Rate [ Anterior Bilateral Throughout] Pulse Rate [ From Monitor] Respiratory Rate Respiratory Rate [Anterior Bilateral Throughout] Blood Pressure O2 Sat by Pulse Oximetry Constitutional: appears uncomfortable, other (orally intuabted to MVS, mild resp distress) Eyes: non-icteric ENT: oropharynx moist, other (ETT at 23 cm at the lip, dry old blood in oropharynx) Neck: supple, no JVD Effort: mildly labored Ascultation: Bilateral: diminished breath sounds, rhonchi Percussion: Bilateral: not dull Cardiovascular: regular rate and rhythm, other (S1,S2) Gastrointestinal: hypoactive bowel sounds, soft, non-tender Integumentary: other (edema) Extremities: no cyanosis, pulses normal, no ischemia or petechiae, edema Neurologic: pupils equal and round, other (unresponsive) Psychiatric: other (unable to assess) CBC and BMP: 06/25/21 Unknown 06/25/21 Unknown ABG, PT/INR, D-dimer: ABG ABG pH 7.249 (7.320-7.450) L 06/22/21 04:57 POC ABG pCO2 62.9 mmHg (32.0-48.0) H 06/22/21 04:57 ABG pCO2 70.2 mm Hg 06/20/21 18:00 POC ABG pO2 74.4 mmHg (83-108) L 06/22/21 04:57 ABG pO2 209.0 mm Hg (80.0-90.0) H 06/20/21 18:00 POC ABG HCO3 26.9 06/22/21 04:57 ABG O2 Saturation 93.5 (0-100) 06/22/21 04:57 PT/INR, D-dimer PT 19.2 Sec. (12.2-14.9) H 06/19/21 09:37 INR 1.46 (0.87-1.13) H 06/19/21 09:37 D-Dimer 3584.01 ng/mlDDU (0-234) H 05/27/21 08:09 Abnormal lab findings: Abnormal Labs 05/23/21 05/23/21 05/23/21 18:48 18:48 18:48 WBC 11.8 H RBC 5.18 H Hgb Hct MCV MCH MCHC RDW Plt Count Seg Neuts % (Manual) 84.0 H Lymphocytes % (Manual) Monocytes % (Manual) Nucleated RBC % Seg Neutrophils # Man 9.9 H Lymphocytes # (Manual) PT INR APTT D-Dimer > 52438 H ABG pH POC ABG pCO2 POC ABG pO2 ABG pO2 ABG HCO3 ABG O2 Saturation ABG Base Excess ABG Hemoglobin ABG Oxyhemoglobin ABG Sodium ABG Potassium ABG Chloride ABG Glucose VBG pH Carboxyhemoglobin Sodium Potassium Chloride Carbon Dioxide BUN Creatinine Glucose POC Glucose Lactic Acid 2.30 H* Calcium Phosphorus Magnesium Ferritin AST ALT Ammonia Lactate Dehydrogenase Troponin T C-Reactive Protein Total Protein Albumin Triglycerides LDL Cholesterol Direct HDL Cholesterol Arterial Blood Glucose Arterial Blood Ionized Calcium Urine WBC (Auto) Urine Creatinine Vancomycin Trough Crossmatch 05/23/21 05/23/21 05/23/21 18:48 18:48 18:48 WBC RBC Hgb Hct MCV MCH MCHC RDW Plt Count Seg Neuts % (Manual) Lymphocytes % (Manual) Monocytes % (Manual) Nucleated RBC % Seg Neutrophils # Man Lymphocytes # (Manual) PT INR APTT D-Dimer ABG pH POC ABG pCO2 POC ABG pO2 ABG pO2 ABG HCO3 ABG O2 Saturation ABG Base Excess ABG Hemoglobin ABG Oxyhemoglobin ABG Sodium ABG Potassium ABG Chloride ABG Glucose VBG pH Carboxyhemoglobin Sodium 151 H Potassium 5.1 H Chloride 113.2 H Carbon Dioxide 17 L BUN 180 H Creatinine 4.3 H Glucose 114 H POC Glucose Lactic Acid Calcium Phosphorus Magnesium Ferritin 2000.0 H AST ALT Ammonia 22.0 L Lactate Dehydrogenase 577 H Troponin T C-Reactive Protein 8.80 H Total Protein 9.4 H Albumin 3.0 L Triglycerides LDL Cholesterol Direct HDL Cholesterol Arterial Blood Glucose Arterial Blood Ionized Calcium Urine WBC (Auto) Urine Creatinine Vancomycin Trough Crossmatch 05/23/21 05/24/21 05/24/21 21:06 02:09 02:09 WBC RBC Hgb Hct MCV MCH MCHC RDW Plt Count Seg Neuts % (Manual) Lymphocytes % (Manual) Monocytes % (Manual) Nucleated RBC % Seg Neutrophils # Man Lymphocytes # (Manual) PT INR APTT D-Dimer ABG pH POC ABG pCO2 POC ABG pO2 ABG pO2 ABG HCO3 ABG O2 Saturation ABG Base Excess ABG Hemoglobin ABG Oxyhemoglobin ABG Sodium ABG Potassium ABG Chloride ABG Glucose VBG pH 7.254 L Carboxyhemoglobin Sodium Potassium Chloride Carbon Dioxide BUN Creatinine Glucose POC Glucose Lactic Acid 2.10 H* 2.30 H* Calcium Phosphorus Magnesium Ferritin AST ALT Ammonia Lactate Dehydrogenase Troponin T C-Reactive Protein Total Protein Albumin Triglycerides LDL Cholesterol Direct HDL Cholesterol Arterial Blood Glucose Arterial Blood Ionized Calcium Urine WBC (Auto) Urine Creatinine Vancomycin Trough Crossmatch 05/24/21 05/24/21 05/24/21 13:11 17:34 18:12 WBC RBC Hgb Hct MCV MCH MCHC RDW Plt Count Seg Neuts % (Manual) Lymphocytes % (Manual) Monocytes % (Manual) Nucleated RBC % Seg Neutrophils # Man Lymphocytes # (Manual) PT INR APTT D-Dimer ABG pH POC ABG pCO2 POC ABG pO2 ABG pO2 ABG HCO3 ABG O2 Saturation ABG Base Excess ABG Hemoglobin ABG Oxyhemoglobin ABG Sodium ABG Potassium ABG Chloride ABG Glucose VBG pH Carboxyhemoglobin Sodium 155 H Potassium 6.9 H* D 5.7 H Chloride 121.9 H Carbon Dioxide 20 L BUN 139 H Creatinine 2.7 H Glucose 139 H POC Glucose 153 H Lactic Acid Calcium Phosphorus Magnesium Ferritin AST ALT Ammonia Lactate Dehydrogenase Troponin T C-Reactive Protein Total Protein Albumin Triglycerides LDL Cholesterol Direct HDL Cholesterol Arterial Blood Glucose Arterial Blood Ionized Calcium Urine WBC (Auto) Urine Creatinine Vancomycin Trough Crossmatch 05/25/21 05/25/21 05/26/21 11:33 11:33 03:15 WBC 13.8 H RBC 5.06 H Hgb Hct MCV MCH MCHC RDW Plt Count Seg Neuts % (Manual) Lymphocytes % (Manual) Monocytes % (Manual) Nucleated RBC % Seg Neutrophils # Man Lymphocytes # (Manual) PT INR APTT D-Dimer ABG pH POC ABG pCO2 POC ABG pO2 ABG pO2 ABG HCO3 ABG O2 Saturation ABG Base Excess ABG Hemoglobin ABG Oxyhemoglobin ABG Sodium ABG Potassium ABG Chloride ABG Glucose VBG pH Carboxyhemoglobin Sodium 164 H* D 166 H* Potassium 5.4 H 5.5 H Chloride 131.3 H 129.2 H Carbon Dioxide BUN 109 H 102 H Creatinine 1.9 H 1.8 H Glucose 117 H 113 H POC Glucose Lactic Acid Calcium Phosphorus Magnesium Ferritin AST ALT Ammonia Lactate Dehydrogenase 711 H Troponin T C-Reactive Protein 7.90 H Total Protein Albumin Triglycerides LDL Cholesterol Direct HDL Cholesterol Arterial Blood Glucose Arterial Blood Ionized Calcium Urine WBC (Auto) Urine Creatinine Vancomycin Trough Crossmatch 05/26/21 05/26/21 05/26/21 03:15 03:15 03:15 WBC 13.1 H RBC 5.43 H Hgb 15.3 H Hct 48.5 H MCV MCH MCHC RDW 15.4 H Plt Count Seg Neuts % (Manual) Lymphocytes % (Manual) Monocytes % (Manual) Nucleated RBC % Seg Neutrophils # Man Lymphocytes # (Manual) PT INR APTT D-Dimer 6229.14 H ABG pH POC ABG pCO2 POC ABG pO2 ABG pO2 ABG HCO3 ABG O2 Saturation ABG Base Excess ABG Hemoglobin ABG Oxyhemoglobin ABG Sodium ABG Potassium ABG Chloride ABG Glucose VBG pH Carboxyhemoglobin Sodium Potassium Chloride Carbon Dioxide BUN Creatinine Glucose POC Glucose Lactic Acid Calcium Phosphorus Magnesium Ferritin 2991.0 H AST ALT Ammonia Lactate Dehydrogenase Troponin T C-Reactive Protein Total Protein Albumin Triglycerides LDL Cholesterol Direct HDL Cholesterol Arterial Blood Glucose Arterial Blood Ionized Calcium Urine WBC (Auto) Urine Creatinine Vancomycin Trough Crossmatch 05/27/21 05/27/21 05/27/21 08:09 08:09 08:09 WBC 12.4 H RBC 5.27 H Hgb Hct 46.6 H MCV MCH MCHC 31 L RDW 15.7 H Plt Count Seg Neuts % (Manual) Lymphocytes % (Manual) Monocytes % (Manual) Nucleated RBC % Seg Neutrophils # Man Lymphocytes # (Manual) PT INR APTT D-Dimer 3584.01 H ABG pH POC ABG pCO2 POC ABG pO2 ABG pO2 ABG HCO3 ABG O2 Saturation ABG Base Excess ABG Hemoglobin ABG Oxyhemoglobin ABG Sodium ABG Potassium ABG Chloride ABG Glucose VBG pH Carboxyhemoglobin Sodium 174 H* Potassium Chloride 136.9 H Carbon Dioxide BUN 90 H Creatinine 1.8 H Glucose POC Glucose Lactic Acid Calcium Phosphorus Magnesium Ferritin AST ALT Ammonia Lactate Dehydrogenase 642 H Troponin T C-Reactive Protein 5.20 H Total Protein Albumin Triglycerides LDL Cholesterol Direct HDL Cholesterol Arterial Blood Glucose Arterial Blood Ionized Calcium Urine WBC (Auto) Urine Creatinine Vancomycin Trough Crossmatch 05/27/21 05/28/21 05/28/21 08:09 07:31 07:31 WBC RBC Hgb Hct MCV MCH 27 L MCHC 31 L RDW Plt Count Seg Neuts % (Manual) 88.0 H Lymphocytes % (Manual) 11.0 L Monocytes % (Manual) Nucleated RBC % Seg Neutrophils # Man 8.3 H Lymphocytes # (Manual) 1.0 L PT INR APTT D-Dimer ABG pH POC ABG pCO2 POC ABG pO2 ABG pO2 ABG HCO3 ABG O2 Saturation ABG Base Excess ABG Hemoglobin ABG Oxyhemoglobin ABG Sodium ABG Potassium ABG Chloride ABG Glucose VBG pH Carboxyhemoglobin Sodium 162 H* D Potassium Chloride 125.8 H Carbon Dioxide BUN 72 H Creatinine 1.6 H Glucose 131 H POC Glucose Lactic Acid Calcium Phosphorus Magnesium 3.00 H Ferritin 2742.0 H AST ALT Ammonia Lactate Dehydrogenase Troponin T C-Reactive Protein Total Protein Albumin Triglycerides LDL Cholesterol Direct HDL Cholesterol Arterial Blood Glucose Arterial Blood Ionized Calcium Urine WBC (Auto) Urine Creatinine Vancomycin Trough Crossmatch 05/29/21 05/29/21 05/29/21 06:40 06:40 17:58 WBC 14.1 H RBC Hgb Hct MCV MCH 27 L MCHC 31 L RDW Plt Count Seg Neuts % (Manual) 85.0 H Lymphocytes % (Manual) 9.0 L Monocytes % (Manual) Nucleated RBC % 1.0 H Seg Neutrophils # Man 12.0 H Lymphocytes # (Manual) PT INR APTT D-Dimer ABG pH 7.505 H POC ABG pCO2 30.3 L POC ABG pO2 128.1 H ABG pO2 ABG HCO3 ABG O2 Saturation ABG Base Excess ABG Hemoglobin 11.9 L ABG Oxyhemoglobin ABG Sodium ABG Potassium ABG Chloride 113.0 H ABG Glucose 110 H VBG pH Carboxyhemoglobin Sodium 148 H D Potassium Chloride 111.3 H Carbon Dioxide 20 L BUN 45 H Creatinine Glucose POC Glucose Lactic Acid Calcium Phosphorus 2.10 L D Magnesium Ferritin AST ALT Ammonia Lactate Dehydrogenase Troponin T C-Reactive Protein Total Protein Albumin Triglycerides LDL Cholesterol Direct HDL Cholesterol Arterial Blood Glucose 110 H Arterial Blood Ionized Calcium 4.5 L Urine WBC (Auto) Urine Creatinine Vancomycin Trough Crossmatch 05/30/21 05/30/21 05/30/21 01:00 06:06 13:48 WBC RBC Hgb Hct MCV MCH MCHC RDW Plt Count Seg Neuts % (Manual) Lymphocytes % (Manual) Monocytes % (Manual) Nucleated RBC % Seg Neutrophils # Man Lymphocytes # (Manual) PT INR APTT D-Dimer ABG pH POC ABG pCO2 POC ABG pO2 ABG pO2 90.9 H ABG HCO3 ABG O2 Saturation ABG Base Excess ABG Hemoglobin 11.8 L ABG Oxyhemoglobin ABG Sodium ABG Potassium ABG Chloride ABG Glucose VBG pH Carboxyhemoglobin Sodium 150 H Potassium Chloride 117.6 H Carbon Dioxide BUN 40 H Creatinine Glucose POC Glucose Lactic Acid Calcium 8.3 L Phosphorus Magnesium Ferritin AST ALT Ammonia Lactate Dehydrogenase Troponin T C-Reactive Protein Total Protein Albumin Triglycerides LDL Cholesterol Direct HDL Cholesterol Arterial Blood Glucose Arterial Blood Ionized Calcium Urine WBC (Auto) 12.0 H Urine Creatinine Vancomycin Trough Crossmatch 05/30/21 05/31/21 05/31/21 22:32 02:22 02:22 WBC RBC Hgb 11.2 L Hct 34.8 L MCV MCH MCHC RDW Plt Count 127 L Seg Neuts % (Manual) 97.0 H Lymphocytes % (Manual) Monocytes % (Manual) Nucleated RBC % Seg Neutrophils # Man 10.5 H Lymphocytes # (Manual) 0.0 L PT INR APTT D-Dimer ABG pH 7.454 H POC ABG pCO2 POC ABG pO2 ABG pO2 141.8 H ABG HCO3 19.9 L ABG O2 Saturation ABG Base Excess -2.7 L ABG Hemoglobin ABG Oxyhemoglobin ABG Sodium ABG Potassium ABG Chloride ABG Glucose VBG pH Carboxyhemoglobin Sodium 152 H Potassium Chloride 118.9 H Carbon Dioxide 19 L BUN 48 H Creatinine 1.5 H Glucose 101 H POC Glucose Lactic Acid Calcium 8.3 L Phosphorus Magnesium Ferritin AST ALT Ammonia Lactate Dehydrogenase Troponin T C-Reactive Protein Total Protein Albumin Triglycerides LDL Cholesterol Direct HDL Cholesterol Arterial Blood Glucose Arterial Blood Ionized Calcium Urine WBC (Auto) Urine Creatinine Vancomycin Trough Crossmatch 05/31/21 05/31/21 06/01/21 11:42 21:28 07:10 WBC RBC Hgb Hct MCV MCH MCHC RDW Plt Count Seg Neuts % (Manual) Lymphocytes % (Manual) Monocytes % (Manual) Nucleated RBC % Seg Neutrophils # Man Lymphocytes # (Manual) PT INR APTT D-Dimer ABG pH POC ABG pCO2 POC ABG pO2 ABG pO2 ABG HCO3 ABG O2 Saturation ABG Base Excess ABG Hemoglobin ABG Oxyhemoglobin ABG Sodium ABG Potassium ABG Chloride ABG Glucose VBG pH Carboxyhemoglobin Sodium 150 H Potassium Chloride 115.7 H Carbon Dioxide BUN 47 H Creatinine Glucose 115 H POC Glucose 161 H Lactic Acid Calcium Phosphorus Magnesium 2.50 H Ferritin AST ALT Ammonia Lactate Dehydrogenase Troponin T C-Reactive Protein Total Protein Albumin Triglycerides LDL Cholesterol Direct HDL Cholesterol Arterial Blood Glucose Arterial Blood Ionized Calcium Urine WBC (Auto) Urine Creatinine Vancomycin Trough 20.2 H Crossmatch 06/01/21 06/01/21 06/01/21 07:10 07:54 10:39 WBC RBC Hgb 10.7 L Hct 33.5 L MCV MCH MCHC RDW Plt Count Seg Neuts % (Manual) 92.0 H Lymphocytes % (Manual) 4.0 L Monocytes % (Manual) Nucleated RBC % Seg Neutrophils # Man Lymphocytes # (Manual) 0.3 L PT INR APTT D-Dimer ABG pH POC ABG pCO2 POC ABG pO2 ABG pO2 ABG HCO3 ABG O2 Saturation ABG Base Excess ABG Hemoglobin ABG Oxyhemoglobin ABG Sodium ABG Potassium ABG Chloride ABG Glucose VBG pH Carboxyhemoglobin Sodium 152 H Potassium Chloride 117.6 H Carbon Dioxide BUN 50 H Creatinine Glucose 140 H POC Glucose 127 H Lactic Acid Calcium 8.3 L Phosphorus Magnesium Ferritin AST ALT Ammonia Lactate Dehydrogenase Troponin T C-Reactive Protein Total Protein Albumin Triglycerides LDL Cholesterol Direct HDL Cholesterol Arterial Blood Glucose Arterial Blood Ionized Calcium Urine WBC (Auto) Urine Creatinine Vancomycin Trough Crossmatch 06/01/21 06/01/21 06/01/21 11:11 16:16 21:45 WBC RBC Hgb Hct MCV MCH MCHC RDW Plt Count Seg Neuts % (Manual) Lymphocytes % (Manual) Monocytes % (Manual) Nucleated RBC % Seg Neutrophils # Man Lymphocytes # (Manual) PT INR APTT D-Dimer ABG pH POC ABG pCO2 POC ABG pO2 ABG pO2 ABG HCO3 ABG O2 Saturation ABG Base Excess ABG Hemoglobin ABG Oxyhemoglobin ABG Sodium ABG Potassium ABG Chloride ABG Glucose VBG pH Carboxyhemoglobin Sodium Potassium Chloride Carbon Dioxide BUN Creatinine Glucose POC Glucose 120 H 129 H 150 H Lactic Acid Calcium Phosphorus Magnesium Ferritin AST ALT Ammonia Lactate Dehydrogenase Troponin T C-Reactive Protein Total Protein Albumin Triglycerides LDL Cholesterol Direct HDL Cholesterol Arterial Blood Glucose Arterial Blood Ionized Calcium Urine WBC (Auto) Urine Creatinine Vancomycin Trough Crossmatch 06/02/21 06/02/21 06/02/21 06:53 06:53 07:52 WBC RBC Hgb 10.4 L Hct 32.4 L MCV MCH 27 L MCHC RDW Plt Count Seg Neuts % (Manual) 93.0 H Lymphocytes % (Manual) 3.0 L Monocytes % (Manual) Nucleated RBC % Seg Neutrophils # Man Lymphocytes # (Manual) 0.2 L PT INR APTT D-Dimer ABG pH POC ABG pCO2 POC ABG pO2 ABG pO2 ABG HCO3 ABG O2 Saturation ABG Base Excess ABG Hemoglobin ABG Oxyhemoglobin ABG Sodium ABG Potassium ABG Chloride ABG Glucose VBG pH Carboxyhemoglobin Sodium 149 H Potassium Chloride 112.6 H Carbon Dioxide BUN 54 H Creatinine Glucose 123 H POC Glucose 116 H Lactic Acid Calcium 8.2 L Phosphorus Magnesium Ferritin AST ALT Ammonia Lactate Dehydrogenase Troponin T C-Reactive Protein Total Protein Albumin Triglycerides LDL Cholesterol Direct HDL Cholesterol Arterial Blood Glucose Arterial Blood Ionized Calcium Urine WBC (Auto) Urine Creatinine Vancomycin Trough Crossmatch 06/03/21 06/03/21 06/03/21 05:57 05:57 21:23 WBC RBC Hgb 10.7 L Hct 33.0 L MCV 83 L MCH 27 L MCHC RDW Plt Count Seg Neuts % (Manual) 88.0 H Lymphocytes % (Manual) 8.0 L Monocytes % (Manual) Nucleated RBC % 2.0 H Seg Neutrophils # Man Lymphocytes # (Manual) 0.6 L PT INR APTT D-Dimer ABG pH POC ABG pCO2 POC ABG pO2 39.0 L ABG pO2 ABG HCO3 ABG O2 Saturation ABG Base Excess ABG Hemoglobin ABG Oxyhemoglobin 69.1 L ABG Sodium 134.1 L ABG Potassium ABG Chloride ABG Glucose 135 H VBG pH Carboxyhemoglobin Sodium Potassium Chloride Carbon Dioxide BUN 36 H Creatinine Glucose 102 H POC Glucose Lactic Acid Calcium 8.0 L Phosphorus 2.20 L D Magnesium Ferritin AST ALT Ammonia Lactate Dehydrogenase Troponin T C-Reactive Protein Total Protein Albumin Triglycerides LDL Cholesterol Direct HDL Cholesterol Arterial Blood Glucose 135 H Arterial Blood Ionized Calcium Urine WBC (Auto) Urine Creatinine Vancomycin Trough Crossmatch 06/04/21 06/04/21 06/04/21 07:04 07:04 17:42 WBC RBC Hgb 11.3 L Hct 34.9 L MCV MCH 27 L MCHC RDW Plt Count Seg Neuts % (Manual) Lymphocytes % (Manual) 5.0 L Monocytes % (Manual) Nucleated RBC % Seg Neutrophils # Man 8.4 H Lymphocytes # (Manual) 0.5 L PT INR APTT D-Dimer ABG pH POC ABG pCO2 POC ABG pO2 ABG pO2 ABG HCO3 ABG O2 Saturation ABG Base Excess ABG Hemoglobin ABG Oxyhemoglobin ABG Sodium ABG Potassium ABG Chloride ABG Glucose VBG pH Carboxyhemoglobin Sodium Potassium Chloride Carbon Dioxide BUN 27 H Creatinine Glucose POC Glucose 136 H Lactic Acid Calcium 8.2 L Phosphorus Magnesium Ferritin AST ALT Ammonia Lactate Dehydrogenase Troponin T C-Reactive Protein Total Protein Albumin Triglycerides LDL Cholesterol Direct HDL Cholesterol Arterial Blood Glucose Arterial Blood Ionized Calcium Urine WBC (Auto) Urine Creatinine Vancomycin Trough Crossmatch 06/05/21 06/05/21 06/05/21 05:10 12:32 15:45 WBC RBC Hgb Hct MCV MCH MCHC RDW Plt Count Seg Neuts % (Manual) Lymphocytes % (Manual) Monocytes % (Manual) Nucleated RBC % Seg Neutrophils # Man Lymphocytes # (Manual) PT INR APTT D-Dimer ABG pH POC ABG pCO2 POC ABG pO2 ABG pO2 ABG HCO3 ABG O2 Saturation ABG Base Excess ABG Hemoglobin ABG Oxyhemoglobin ABG Sodium ABG Potassium ABG Chloride ABG Glucose VBG pH Carboxyhemoglobin Sodium Potassium 3.5 L Chloride Carbon Dioxide BUN 35 H Creatinine Glucose 130 H POC Glucose 122 H 119 H Lactic Acid Calcium 8.2 L Phosphorus Magnesium Ferritin AST ALT Ammonia Lactate Dehydrogenase Troponin T C-Reactive Protein Total Protein Albumin Triglycerides LDL Cholesterol Direct HDL Cholesterol Arterial Blood Glucose Arterial Blood Ionized Calcium Urine WBC (Auto) Urine Creatinine Vancomycin Trough Crossmatch 06/05/21 06/05/21 06/06/21 20:06 21:27 00:04 WBC RBC Hgb Hct MCV MCH MCHC RDW Plt Count Seg Neuts % (Manual) Lymphocytes % (Manual) Monocytes % (Manual) Nucleated RBC % Seg Neutrophils # Man Lymphocytes # (Manual) PT INR APTT D-Dimer ABG pH 7.456 H POC ABG pCO2 POC ABG pO2 ABG pO2 ABG HCO3 ABG O2 Saturation ABG Base Excess ABG Hemoglobin 10.3 L ABG Oxyhemoglobin ABG Sodium ABG Potassium 3.1 L ABG Chloride ABG Glucose 125 H VBG pH Carboxyhemoglobin 0.3 L Sodium Potassium Chloride Carbon Dioxide BUN Creatinine Glucose POC Glucose 113 H Lactic Acid Calcium Phosphorus Magnesium Ferritin AST ALT Ammonia Lactate Dehydrogenase Troponin T C-Reactive Protein 19.60 H Total Protein Albumin Triglycerides LDL Cholesterol Direct HDL Cholesterol Arterial Blood Glucose 125 H Arterial Blood Ionized Calcium Urine WBC (Auto) Urine Creatinine Vancomycin Trough Crossmatch 06/06/21 06/06/21 06/07/21 04:35 22:37 05:54 WBC RBC Hgb Hct MCV MCH MCHC RDW Plt Count Seg Neuts % (Manual) Lymphocytes % (Manual) Monocytes % (Manual) Nucleated RBC % Seg Neutrophils # Man Lymphocytes # (Manual) PT INR APTT D-Dimer ABG pH POC ABG pCO2 POC ABG pO2 ABG pO2 ABG HCO3 ABG O2 Saturation ABG Base Excess ABG Hemoglobin ABG Oxyhemoglobin ABG Sodium ABG Potassium ABG Chloride ABG Glucose VBG pH Carboxyhemoglobin Sodium Potassium Chloride Carbon Dioxide BUN 43 H Creatinine Glucose POC Glucose 114 H 130 H Lactic Acid Calcium 7.6 L Phosphorus Magnesium Ferritin AST ALT Ammonia Lactate Dehydrogenase Troponin T C-Reactive Protein Total Protein Albumin Triglycerides LDL Cholesterol Direct HDL Cholesterol Arterial Blood Glucose Arterial Blood Ionized Calcium Urine WBC (Auto) Urine Creatinine Vancomycin Trough Crossmatch 06/07/21 06/07/21 06/07/21 07:32 10:03 11:36 WBC RBC 3.63 L Hgb 9.8 L Hct 30.3 L MCV 83 L MCH 27 L MCHC RDW Plt Count Seg Neuts % (Manual) Lymphocytes % (Manual) Monocytes % (Manual) Nucleated RBC % Seg Neutrophils # Man Lymphocytes # (Manual) PT INR APTT D-Dimer ABG pH POC ABG pCO2 POC ABG pO2 ABG pO2 ABG HCO3 ABG O2 Saturation ABG Base Excess ABG Hemoglobin ABG Oxyhemoglobin ABG Sodium ABG Potassium ABG Chloride ABG Glucose VBG pH Carboxyhemoglobin Sodium Potassium 3.2 L Chloride 108.5 H Carbon Dioxide BUN 36 H Creatinine Glucose 139 H POC Glucose 125 H Lactic Acid Calcium 8.0 L Phosphorus Magnesium Ferritin AST ALT Ammonia Lactate Dehydrogenase Troponin T C-Reactive Protein Total Protein Albumin Triglycerides LDL Cholesterol Direct HDL Cholesterol Arterial Blood Glucose Arterial Blood Ionized Calcium Urine WBC (Auto) Urine Creatinine Vancomycin Trough Crossmatch 06/07/21 06/07/21 06/08/21 17:54 22:14 07:18 WBC RBC Hgb Hct MCV MCH MCHC RDW Plt Count Seg Neuts % (Manual) Lymphocytes % (Manual) Monocytes % (Manual) Nucleated RBC % Seg Neutrophils # Man Lymphocytes # (Manual) PT INR APTT D-Dimer ABG pH POC ABG pCO2 POC ABG pO2 ABG pO2 ABG HCO3 ABG O2 Saturation ABG Base Excess ABG Hemoglobin ABG Oxyhemoglobin ABG Sodium ABG Potassium ABG Chloride ABG Glucose VBG pH Carboxyhemoglobin Sodium 149 H Potassium Chloride 110.2 H Carbon Dioxide BUN 31 H Creatinine Glucose 131 H POC Glucose 121 H 131 H Lactic Acid Calcium 8.1 L Phosphorus Magnesium Ferritin AST ALT Ammonia Lactate Dehydrogenase Troponin T C-Reactive Protein Total Protein Albumin Triglycerides LDL Cholesterol Direct HDL Cholesterol Arterial Blood Glucose Arterial Blood Ionized Calcium Urine WBC (Auto) Urine Creatinine Vancomycin Trough Crossmatch 06/08/21 06/08/21 06/08/21 07:45 12:07 18:02 WBC RBC Hgb Hct MCV MCH MCHC RDW Plt Count Seg Neuts % (Manual) Lymphocytes % (Manual) Monocytes % (Manual) Nucleated RBC % Seg Neutrophils # Man Lymphocytes # (Manual) PT INR APTT D-Dimer ABG pH POC ABG pCO2 POC ABG pO2 ABG pO2 ABG HCO3 ABG O2 Saturation ABG Base Excess ABG Hemoglobin ABG Oxyhemoglobin ABG Sodium ABG Potassium ABG Chloride ABG Glucose VBG pH Carboxyhemoglobin Sodium Potassium Chloride Carbon Dioxide BUN Creatinine Glucose POC Glucose 120 H 127 H 148 H Lactic Acid Calcium Phosphorus Magnesium Ferritin AST ALT Ammonia Lactate Dehydrogenase Troponin T C-Reactive Protein Total Protein Albumin Triglycerides LDL Cholesterol Direct HDL Cholesterol Arterial Blood Glucose Arterial Blood Ionized Calcium Urine WBC (Auto) Urine Creatinine Vancomycin Trough Crossmatch 06/09/21 06/09/21 06/09/21 05:51 05:51 11:37 WBC 3.9 L RBC 3.38 L Hgb 9.4 L Hct 28.5 L MCV MCH MCHC RDW Plt Count Seg Neuts % (Manual) Lymphocytes % (Manual) Monocytes % (Manual) Nucleated RBC % Seg Neutrophils # Man Lymphocytes # (Manual) PT INR APTT D-Dimer ABG pH POC ABG pCO2 POC ABG pO2 ABG pO2 ABG HCO3 ABG O2 Saturation ABG Base Excess ABG Hemoglobin ABG Oxyhemoglobin ABG Sodium ABG Potassium ABG Chloride ABG Glucose VBG pH Carboxyhemoglobin Sodium Potassium Chloride 108.4 H Carbon Dioxide BUN 32 H Creatinine Glucose 137 H POC Glucose 115 H Lactic Acid Calcium 7.5 L Phosphorus Magnesium Ferritin AST 55 H ALT Ammonia Lactate Dehydrogenase Troponin T C-Reactive Protein 4.10 H Total Protein 5.6 L Albumin 2.0 L Triglycerides LDL Cholesterol Direct HDL Cholesterol Arterial Blood Glucose Arterial Blood Ionized Calcium Urine WBC (Auto) Urine Creatinine Vancomycin Trough Crossmatch 06/09/21 06/09/21 06/10/21 17:32 22:18 01:52 WBC RBC 3.62 L Hgb 9.9 L Hct 29.8 L MCV 82 L MCH 27 L MCHC RDW Plt Count Seg Neuts % (Manual) Lymphocytes % (Manual) Monocytes % (Manual) Nucleated RBC % Seg Neutrophils # Man Lymphocytes # (Manual) PT INR APTT D-Dimer ABG pH POC ABG pCO2 POC ABG pO2 ABG pO2 ABG HCO3 ABG O2 Saturation ABG Base Excess ABG Hemoglobin ABG Oxyhemoglobin ABG Sodium ABG Potassium ABG Chloride ABG Glucose VBG pH Carboxyhemoglobin Sodium Potassium Chloride Carbon Dioxide BUN Creatinine Glucose POC Glucose 113 H 110 H Lactic Acid Calcium Phosphorus Magnesium Ferritin AST ALT Ammonia Lactate Dehydrogenase Troponin T C-Reactive Protein Total Protein Albumin Triglycerides LDL Cholesterol Direct HDL Cholesterol Arterial Blood Glucose Arterial Blood Ionized Calcium Urine WBC (Auto) Urine Creatinine Vancomycin Trough Crossmatch 06/10/21 06/10/21 06/10/21 01:52 16:14 22:45 WBC RBC Hgb Hct MCV MCH MCHC RDW Plt Count Seg Neuts % (Manual) Lymphocytes % (Manual) Monocytes % (Manual) Nucleated RBC % Seg Neutrophils # Man Lymphocytes # (Manual) PT INR APTT D-Dimer ABG pH POC ABG pCO2 POC ABG pO2 ABG pO2 ABG HCO3 ABG O2 Saturation ABG Base Excess ABG Hemoglobin ABG Oxyhemoglobin ABG Sodium ABG Potassium ABG Chloride ABG Glucose VBG pH Carboxyhemoglobin Sodium Potassium Chloride 108.2 H Carbon Dioxide BUN 32 H Creatinine 1.4 H Glucose POC Glucose 111 H 107 H Lactic Acid Calcium 7.8 L Phosphorus Magnesium Ferritin AST 55 H ALT Ammonia Lactate Dehydrogenase Troponin T C-Reactive Protein Total Protein 5.6 L Albumin 1.9 L Triglycerides LDL Cholesterol Direct HDL Cholesterol Arterial Blood Glucose Arterial Blood Ionized Calcium Urine WBC (Auto) Urine Creatinine Vancomycin Trough Crossmatch 06/11/21 06/11/21 06/11/21 05:51 05:51 05:51 WBC RBC 3.35 L Hgb 9.1 L Hct 28.1 L MCV MCH 27 L MCHC RDW Plt Count 117 L Seg Neuts % (Manual) 93.0 H Lymphocytes % (Manual) 1.0 L Monocytes % (Manual) Nucleated RBC % Seg Neutrophils # Man Lymphocytes # (Manual) 0.0 L PT INR APTT D-Dimer ABG pH POC ABG pCO2 POC ABG pO2 ABG pO2 ABG HCO3 ABG O2 Saturation ABG Base Excess ABG Hemoglobin ABG Oxyhemoglobin ABG Sodium ABG Potassium ABG Chloride ABG Glucose VBG pH Carboxyhemoglobin Sodium 146 H Potassium Chloride 110.9 H Carbon Dioxide BUN 40 H Creatinine Glucose 119 H POC Glucose Lactic Acid Calcium 7.8 L Phosphorus Magnesium Ferritin AST ALT Ammonia Lactate Dehydrogenase Troponin T C-Reactive Protein Total Protein Albumin Triglycerides LDL Cholesterol Direct HDL Cholesterol Arterial Blood Glucose Arterial Blood Ionized Calcium Urine WBC (Auto) Urine Creatinine Vancomycin Trough 22.6 H Crossmatch 06/11/21 06/11/21 06/11/21 08:28 11:36 15:47 WBC RBC Hgb Hct MCV MCH MCHC RDW Plt Count Seg Neuts % (Manual) Lymphocytes % (Manual) Monocytes % (Manual) Nucleated RBC % Seg Neutrophils # Man Lymphocytes # (Manual) PT INR APTT D-Dimer ABG pH POC ABG pCO2 POC ABG pO2 ABG pO2 ABG HCO3 ABG O2 Saturation ABG Base Excess ABG Hemoglobin ABG Oxyhemoglobin ABG Sodium ABG Potassium ABG Chloride ABG Glucose VBG pH Carboxyhemoglobin Sodium Potassium Chloride Carbon Dioxide BUN Creatinine Glucose POC Glucose 109 H 149 H 139 H Lactic Acid Calcium Phosphorus Magnesium Ferritin AST ALT Ammonia Lactate Dehydrogenase Troponin T C-Reactive Protein Total Protein Albumin Triglycerides LDL Cholesterol Direct HDL Cholesterol Arterial Blood Glucose Arterial Blood Ionized Calcium Urine WBC (Auto) Urine Creatinine Vancomycin Trough Crossmatch 06/11/21 06/12/21 06/12/21 21:42 04:00 04:00 WBC 4.0 L RBC 3.50 L Hgb 9.4 L Hct 29.9 L MCV MCH 27 L MCHC 31 L RDW 15.3 H Plt Count 126 L Seg Neuts % (Manual) 88.0 H Lymphocytes % (Manual) Monocytes % (Manual) 12.0 H Nucleated RBC % Seg Neutrophils # Man Lymphocytes # (Manual) 0.0 L PT INR APTT D-Dimer ABG pH POC ABG pCO2 POC ABG pO2 ABG pO2 ABG HCO3 ABG O2 Saturation ABG Base Excess ABG Hemoglobin ABG Oxyhemoglobin ABG Sodium ABG Potassium ABG Chloride ABG Glucose VBG pH Carboxyhemoglobin Sodium 149 H Potassium Chloride 114.1 H Carbon Dioxide BUN 37 H Creatinine Glucose 137 H POC Glucose 124 H Lactic Acid Calcium 8.0 L Phosphorus Magnesium Ferritin AST ALT Ammonia Lactate Dehydrogenase Troponin T C-Reactive Protein Total Protein Albumin Triglycerides LDL Cholesterol Direct HDL Cholesterol Arterial Blood Glucose Arterial Blood Ionized Calcium Urine WBC (Auto) Urine Creatinine Vancomycin Trough Crossmatch 06/12/21 06/13/21 06/13/21 06:37 00:14 06:05 WBC 4.3 L RBC 3.39 L Hgb 9.2 L Hct 28.6 L MCV MCH 27 L MCHC RDW 15.3 H Plt Count 107 L Seg Neuts % (Manual) 77.0 H Lymphocytes % (Manual) 1.0 L Monocytes % (Manual) Nucleated RBC % 1.0 H Seg Neutrophils # Man Lymphocytes # (Manual) 0.0 L PT INR APTT D-Dimer ABG pH POC ABG pCO2 POC ABG pO2 ABG pO2 ABG HCO3 ABG O2 Saturation ABG Base Excess ABG Hemoglobin ABG Oxyhemoglobin ABG Sodium ABG Potassium ABG Chloride ABG Glucose VBG pH Carboxyhemoglobin Sodium Potassium Chloride Carbon Dioxide BUN Creatinine Glucose POC Glucose 128 H 149 H Lactic Acid Calcium Phosphorus Magnesium Ferritin AST ALT Ammonia Lactate Dehydrogenase Troponin T C-Reactive Protein Total Protein Albumin Triglycerides LDL Cholesterol Direct HDL Cholesterol Arterial Blood Glucose Arterial Blood Ionized Calcium Urine WBC (Auto) Urine Creatinine Vancomycin Trough Crossmatch 06/13/21 06/13/21 06/14/21 06:05 11:51 04:29 WBC 4.2 L RBC 3.21 L Hgb 8.7 L Hct 26.7 L MCV 83 L MCH 27 L MCHC RDW 15.3 H Plt Count 87 L Seg Neuts % (Manual) 96 H Lymphocytes % (Manual) 2 L Monocytes % (Manual) Nucleated RBC % Seg Neutrophils # Man Lymphocytes # (Manual) 0.0 L PT INR APTT D-Dimer ABG pH POC ABG pCO2 POC ABG pO2 48.3 L ABG pO2 ABG HCO3 ABG O2 Saturation ABG Base Excess ABG Hemoglobin 10.7 L ABG Oxyhemoglobin 84.1 L ABG Sodium 145.5 H ABG Potassium ABG Chloride 116.0 H ABG Glucose VBG pH Carboxyhemoglobin Sodium 146 H Potassium 3.5 L Chloride 112.3 H Carbon Dioxide BUN 38 H Creatinine Glucose 112 H POC Glucose Lactic Acid Calcium 8.1 L Phosphorus Magnesium Ferritin AST ALT Ammonia Lactate Dehydrogenase Troponin T C-Reactive Protein Total Protein Albumin Triglycerides LDL Cholesterol Direct HDL Cholesterol Arterial Blood Glucose Arterial Blood Ionized Calcium Urine WBC (Auto) Urine Creatinine Vancomycin Trough Crossmatch 06/14/21 06/14/2121 04:29 06:17 23:51 WBC RBC Hgb Hct MCV MCH MCHC RDW Plt Count Seg Neuts % (Manual) Lymphocytes % (Manual) Monocytes % (Manual) Nucleated RBC % Seg Neutrophils # Man Lymphocytes # (Manual) PT INR APTT D-Dimer ABG pH POC ABG pCO2 POC ABG pO2 ABG pO2 ABG HCO3 ABG O2 Saturation ABG Base Excess ABG Hemoglobin ABG Oxyhemoglobin ABG Sodium ABG Potassium ABG Chloride ABG Glucose VBG pH Carboxyhemoglobin Sodium 148 H Potassium Chloride 115.3 H Carbon Dioxide BUN 40 H Creatinine Glucose 124 H POC Glucose 106 H 135 H Lactic Acid Calcium 8.2 L Phosphorus Magnesium Ferritin AST ALT Ammonia Lactate Dehydrogenase Troponin T C-Reactive Protein Total Protein Albumin Triglycerides LDL Cholesterol Direct HDL Cholesterol Arterial Blood Glucose Arterial Blood Ionized Calcium Urine WBC (Auto) Urine Creatinine Vancomycin Trough Crossmatch 06/15/21 06/15/21 06/15/21 05:23 05:53 05:53 WBC 3.8 L RBC 2.94 L Hgb 8.0 L Hct 24.0 L MCV 81 L MCH 27 L MCHC RDW 15.6 H Plt Count 87 L Seg Neuts % (Manual) 95.0 H Lymphocytes % (Manual) 1.0 L Monocytes % (Manual) Nucleated RBC % 1.0 H Seg Neutrophils # Man Lymphocytes # (Manual) 0.0 L PT INR APTT D-Dimer ABG pH POC ABG pCO2 POC ABG pO2 ABG pO2 ABG HCO3 ABG O2 Saturation ABG Base Excess ABG Hemoglobin ABG Oxyhemoglobin ABG Sodium ABG Potassium ABG Chloride ABG Glucose VBG pH Carboxyhemoglobin Sodium Potassium Chloride 110.5 H Carbon Dioxide BUN 43 H Creatinine Glucose 143 H POC Glucose 134 H Lactic Acid Calcium 8.1 L Phosphorus 2.10 L D Magnesium Ferritin AST ALT Ammonia Lactate Dehydrogenase Troponin T C-Reactive Protein Total Protein Albumin Triglycerides LDL Cholesterol Direct HDL Cholesterol Arterial Blood Glucose Arterial Blood Ionized Calcium Urine WBC (Auto) Urine Creatinine Vancomycin Trough Crossmatch 06/16/21 06/16/21 06/16/21 05:22 05:59 05:59 WBC 3.4 L RBC 3.34 L Hgb 9.0 L Hct 27.9 L MCV MCH 27 L MCHC RDW 15.5 H Plt Count 72 L Seg Neuts % (Manual) 97.0 H Lymphocytes % (Manual) Monocytes % (Manual) Nucleated RBC % Seg Neutrophils # Man Lymphocytes # (Manual) 0.0 L PT INR APTT D-Dimer ABG pH POC ABG pCO2 POC ABG pO2 ABG pO2 ABG HCO3 ABG O2 Saturation ABG Base Excess ABG Hemoglobin ABG Oxyhemoglobin ABG Sodium ABG Potassium ABG Chloride ABG Glucose VBG pH Carboxyhemoglobin Sodium Potassium Chloride 108.8 H Carbon Dioxide BUN 53 H Creatinine 1.4 H Glucose 160 H POC Glucose 141 H Lactic Acid Calcium 8.1 L Phosphorus Magnesium Ferritin AST ALT Ammonia Lactate Dehydrogenase Troponin T C-Reactive Protein Total Protein Albumin Triglycerides LDL Cholesterol Direct HDL Cholesterol Arterial Blood Glucose Arterial Blood Ionized Calcium Urine WBC (Auto) Urine Creatinine Vancomycin Trough Crossmatch 06/16/21 06/16/21 06/17/21 11:31 17:08 06:25 WBC 4.4 L RBC 3.14 L Hgb 8.5 L Hct 25.7 L MCV 82 L MCH 27 L MCHC RDW 15.7 H Plt Count 64 L Seg Neuts % (Manual) 95.0 H Lymphocytes % (Manual) Monocytes % (Manual) Nucleated RBC % Seg Neutrophils # Man Lymphocytes # (Manual) 0.0 L PT INR APTT D-Dimer ABG pH POC ABG pCO2 POC ABG pO2 ABG pO2 ABG HCO3 ABG O2 Saturation ABG Base Excess ABG Hemoglobin ABG Oxyhemoglobin ABG Sodium ABG Potassium ABG Chloride ABG Glucose VBG pH Carboxyhemoglobin Sodium Potassium Chloride Carbon Dioxide BUN Creatinine Glucose POC Glucose 129 H 136 H Lactic Acid Calcium Phosphorus Magnesium Ferritin AST ALT Ammonia Lactate Dehydrogenase Troponin T C-Reactive Protein Total Protein Albumin Triglycerides LDL Cholesterol Direct HDL Cholesterol Arterial Blood Glucose Arterial Blood Ionized Calcium Urine WBC (Auto) Urine Creatinine Vancomycin Trough Crossmatch 06/17/21 06/17/21 06/17/21 06:25 18:19 18:38 WBC RBC Hgb Hct MCV MCH MCHC RDW Plt Count Seg Neuts % (Manual) Lymphocytes % (Manual) Monocytes % (Manual) Nucleated RBC % Seg Neutrophils # Man Lymphocytes # (Manual) PT INR APTT D-Dimer ABG pH 7.184 L POC ABG pCO2 65.8 H POC ABG pO2 130.5 H ABG pO2 ABG HCO3 ABG O2 Saturation ABG Base Excess ABG Hemoglobin 10.2 L ABG Oxyhemoglobin ABG Sodium ABG Potassium ABG Chloride 108.0 H ABG Glucose 229 H VBG pH Carboxyhemoglobin Sodium Potassium Chloride Carbon Dioxide BUN 62 H Creatinine Glucose 135 H POC Glucose 206 H Lactic Acid Calcium 7.8 L Phosphorus Magnesium Ferritin AST ALT Ammonia Lactate Dehydrogenase Troponin T C-Reactive Protein Total Protein Albumin Triglycerides LDL Cholesterol Direct HDL Cholesterol Arterial Blood Glucose 229 H Arterial Blood Ionized Calcium Urine WBC (Auto) Urine Creatinine Vancomycin Trough Crossmatch 06/18/21 06/18/21 06/18/21 00:29 05:15 10:56 WBC RBC Hgb Hct MCV MCH MCHC RDW Plt Count Seg Neuts % (Manual) Lymphocytes % (Manual) Monocytes % (Manual) Nucleated RBC % Seg Neutrophils # Man Lymphocytes # (Manual) PT INR APTT D-Dimer ABG pH POC ABG pCO2 POC ABG pO2 ABG pO2 ABG HCO3 ABG O2 Saturation ABG Base Excess ABG Hemoglobin ABG Oxyhemoglobin ABG Sodium ABG Potassium ABG Chloride ABG Glucose VBG pH Carboxyhemoglobin Sodium Potassium Chloride Carbon Dioxide BUN Creatinine Glucose POC Glucose 142 H 152 H Lactic Acid Calcium Phosphorus 5.60 H D Magnesium Ferritin AST ALT Ammonia Lactate Dehydrogenase Troponin T C-Reactive Protein Total Protein Albumin Triglycerides LDL Cholesterol Direct HDL Cholesterol Arterial Blood Glucose Arterial Blood Ionized Calcium Urine WBC (Auto) Urine Creatinine Vancomycin Trough Crossmatch 06/18/21 06/18/21 06/18/21 15:02 15:02 15:02 WBC 4.4 L RBC 3.39 L Hgb 9.7 L Hct 28.4 L MCV MCH MCHC RDW 16.3 H Plt Count 65 L Seg Neuts % (Manual) Lymphocytes % (Manual) Monocytes % (Manual) Nucleated RBC % Seg Neutrophils # Man Lymphocytes # (Manual) PT 15.6 H INR APTT 41.2 H D-Dimer ABG pH POC ABG pCO2 POC ABG pO2 ABG pO2 ABG HCO3 ABG O2 Saturation ABG Base Excess ABG Hemoglobin ABG Oxyhemoglobin ABG Sodium ABG Potassium ABG Chloride ABG Glucose VBG pH Carboxyhemoglobin Sodium Potassium Chloride Carbon Dioxide BUN Creatinine 2.0 H Glucose POC Glucose Lactic Acid Calcium Phosphorus Magnesium Ferritin AST ALT Ammonia Lactate Dehydrogenase Troponin T C-Reactive Protein Total Protein Albumin Triglycerides LDL Cholesterol Direct HDL Cholesterol Arterial Blood Glucose Arterial Blood Ionized Calcium Urine WBC (Auto) Urine Creatinine Vancomycin Trough Crossmatch 06/18/21 06/18/21 06/18/21 Unknown Unknown Unknown WBC 4.0 L RBC 2.72 L Hgb 8.0 L Hct 24.0 L MCV MCH MCHC RDW 17.2 H Plt Count 60 L Seg Neuts % (Manual) Lymphocytes % (Manual) Monocytes % (Manual) Nucleated RBC % Seg Neutrophils # Man Lymphocytes # (Manual) PT INR APTT D-Dimer ABG pH POC ABG pCO2 POC ABG pO2 ABG pO2 ABG HCO3 ABG O2 Saturation ABG Base Excess ABG Hemoglobin ABG Oxyhemoglobin ABG Sodium ABG Potassium ABG Chloride ABG Glucose VBG pH Carboxyhemoglobin Sodium 134 L D Potassium 6.0 H D Chloride Carbon Dioxide BUN 80 H Creatinine 1.8 H Glucose 395 H POC Glucose Lactic Acid Calcium 6.9 L Phosphorus Magnesium Ferritin AST < 5 L ALT < 5 L Ammonia Lactate Dehydrogenase Troponin T C-Reactive Protein Total Protein 4.9 L Albumin 1.4 L Triglycerides LDL Cholesterol Direct HDL Cholesterol Arterial Blood Glucose Arterial Blood Ionized Calcium Urine WBC (Auto) 10.0 H Urine Creatinine Vancomycin Trough Crossmatch 06/19/21 06/19/21 06/19/21 02:41 04:53 05:37 WBC RBC Hgb Hct MCV MCH MCHC RDW Plt Count Seg Neuts % (Manual) Lymphocytes % (Manual) Monocytes % (Manual) Nucleated RBC % Seg Neutrophils # Man Lymphocytes # (Manual) PT INR APTT D-Dimer ABG pH 7.270 L POC ABG pCO2 49.0 H POC ABG pO2 ABG pO2 ABG HCO3 ABG O2 Saturation ABG Base Excess ABG Hemoglobin 8.8 L ABG Oxyhemoglobin ABG Sodium ABG Potassium ABG Chloride 111.0 H ABG Glucose 110 H VBG pH Carboxyhemoglobin Sodium Potassium Chloride Carbon Dioxide BUN 92 H Creatinine 3.2 H D Glucose 123 H POC Glucose 114 H Lactic Acid Calcium 7.4 L Phosphorus Magnesium Ferritin AST ALT Ammonia Lactate Dehydrogenase Troponin T C-Reactive Protein Total Protein Albumin Triglycerides LDL Cholesterol Direct HDL Cholesterol Arterial Blood Glucose 110 H Arterial Blood Ionized Calcium Urine WBC (Auto) Urine Creatinine Vancomycin Trough Crossmatch 06/19/21 06/19/21 06/19/21 08:55 09:37 09:41 WBC RBC 2.91 L Hgb 7.9 L Hct 24.4 L MCV MCH 27 L MCHC RDW 16.5 H Plt Count 64 L Seg Neuts % (Manual) Lymphocytes % (Manual) Monocytes % (Manual) Nucleated RBC % Seg Neutrophils # Man Lymphocytes # (Manual) PT 19.2 H INR 1.46 H APTT 54.3 H D-Dimer ABG pH POC ABG pCO2 POC ABG pO2 ABG pO2 ABG HCO3 ABG O2 Saturation ABG Base Excess ABG Hemoglobin ABG Oxyhemoglobin ABG Sodium ABG Potassium ABG Chloride ABG Glucose VBG pH Carboxyhemoglobin Sodium 146 H Potassium Chloride Carbon Dioxide BUN Creatinine 3.5 H Glucose POC Glucose Lactic Acid Calcium Phosphorus Magnesium Ferritin AST ALT Ammonia Lactate Dehydrogenase Troponin T C-Reactive Protein Total Protein Albumin Triglycerides LDL Cholesterol Direct HDL Cholesterol Arterial Blood Glucose Arterial Blood Ionized Calcium Urine WBC (Auto) Urine Creatinine Vancomycin Trough Crossmatch 06/19/21 06/19/21 06/19/21 11:14 12:19 16:15 WBC RBC Hgb Hct MCV MCH MCHC RDW Plt Count Seg Neuts % (Manual) Lymphocytes % (Manual) Monocytes % (Manual) Nucleated RBC % Seg Neutrophils # Man Lymphocytes # (Manual) PT INR APTT D-Dimer ABG pH POC ABG pCO2 POC ABG pO2 ABG pO2 ABG HCO3 ABG O2 Saturation ABG Base Excess ABG Hemoglobin ABG Oxyhemoglobin ABG Sodium ABG Potassium ABG Chloride ABG Glucose VBG pH Carboxyhemoglobin Sodium Potassium Chloride Carbon Dioxide BUN Creatinine Glucose POC Glucose Lactic Acid Calcium Phosphorus Magnesium Ferritin AST ALT Ammonia Lactate Dehydrogenase Troponin T 0.109 H* C-Reactive Protein 11.50 H Total Protein Albumin Triglycerides 295 H LDL Cholesterol Direct 24 L HDL Cholesterol 17 L Arterial Blood Glucose Arterial Blood Ionized Calcium Urine WBC (Auto) Urine Creatinine 49.9 H Vancomycin Trough Crossmatch 06/19/21 06/19/21 06/20/21 18:05 22:40 05:00 WBC 4.1 L RBC 2.66 L Hgb 7.3 L Hct 22.5 L MCV MCH MCHC RDW 16.9 H Plt Count 60 L Seg Neuts % (Manual) Lymphocytes % (Manual) Monocytes % (Manual) Nucleated RBC % Seg Neutrophils # Man Lymphocytes # (Manual) PT INR APTT D-Dimer ABG pH POC ABG pCO2 POC ABG pO2 ABG pO2 ABG HCO3 ABG O2 Saturation ABG Base Excess ABG Hemoglobin ABG Oxyhemoglobin ABG Sodium ABG Potassium ABG Chloride ABG Glucose VBG pH Carboxyhemoglobin Sodium Potassium Chloride Carbon Dioxide BUN Creatinine Glucose POC Glucose 131 H 121 H Lactic Acid Calcium Phosphorus Magnesium Ferritin AST ALT Ammonia Lactate Dehydrogenase Troponin T C-Reactive Protein Total Protein Albumin Triglycerides LDL Cholesterol Direct HDL Cholesterol Arterial Blood Glucose Arterial Blood Ionized Calcium Urine WBC (Auto) Urine Creatinine Vancomycin Trough Crossmatch 06/20/21 06/20/21 06/20/21 05:00 05:00 05:17 WBC RBC Hgb Hct MCV MCH MCHC RDW Plt Count Seg Neuts % (Manual) Lymphocytes % (Manual) Monocytes % (Manual) Nucleated RBC % Seg Neutrophils # Man Lymphocytes # (Manual) PT INR APTT D-Dimer ABG pH POC ABG pCO2 POC ABG pO2 ABG pO2 ABG HCO3 ABG O2 Saturation ABG Base Excess ABG Hemoglobin ABG Oxyhemoglobin ABG Sodium ABG Potassium ABG Chloride ABG Glucose VBG pH Carboxyhemoglobin Sodium Potassium Chloride 111.6 H Carbon Dioxide 20 L BUN 108 H Creatinine 4.3 H Glucose 152 H POC Glucose 137 H Lactic Acid Calcium 7.1 L Phosphorus Magnesium Ferritin AST ALT Ammonia Lactate Dehydrogenase Troponin T 0.105 H* C-Reactive Protein Total Protein Albumin Triglycerides LDL Cholesterol Direct HDL Cholesterol Arterial Blood Glucose Arterial Blood Ionized Calcium Urine WBC (Auto) Urine Creatinine Vancomycin Trough Crossmatch 06/20/21 06/20/21 06/20/21 11:40 12:35 13:26 WBC RBC Hgb Hct MCV MCH MCHC RDW Plt Count Seg Neuts % (Manual) Lymphocytes % (Manual) Monocytes % (Manual) Nucleated RBC % Seg Neutrophils # Man Lymphocytes # (Manual) PT INR APTT D-Dimer ABG pH 6.994 L POC ABG pCO2 70.2 H POC ABG pO2 ABG pO2 ABG HCO3 ABG O2 Saturation ABG Base Excess ABG Hemoglobin 8.1 L ABG Oxyhemoglobin ABG Sodium ABG Potassium ABG Chloride 111.0 H ABG Glucose 207 H VBG pH Carboxyhemoglobin Sodium Potassium Chloride Carbon Dioxide BUN Creatinine Glucose POC Glucose 186 H Lactic Acid Calcium Phosphorus Magnesium Ferritin AST ALT Ammonia Lactate Dehydrogenase Troponin T C-Reactive Protein Total Protein Albumin Triglycerides LDL Cholesterol Direct HDL Cholesterol Arterial Blood Glucose 207 H Arterial Blood Ionized Calcium Urine WBC (Auto) 46.0 H Urine Creatinine Vancomycin Trough Crossmatch 06/20/21 06/20/21 06/20/21 13:54 13:54 17:38 WBC RBC 2.26 L Hgb 6.1 L Hct 19.6 L* MCV MCH 27 L MCHC RDW 17.6 H Plt Count 65 L Seg Neuts % (Manual) Lymphocytes % (Manual) Monocytes % (Manual) Nucleated RBC % Seg Neutrophils # Man Lymphocytes # (Manual) PT INR APTT D-Dimer ABG pH POC ABG pCO2 POC ABG pO2 ABG pO2 ABG HCO3 ABG O2 Saturation ABG Base Excess ABG Hemoglobin ABG Oxyhemoglobin ABG Sodium ABG Potassium ABG Chloride ABG Glucose VBG pH Carboxyhemoglobin Sodium 147 H Potassium 3.0 L D Chloride Carbon Dioxide 33 H D BUN 90 H Creatinine 3.3 H Glucose 771 H* POC Glucose 198 H Lactic Acid Calcium 5.3 L* D Phosphorus Magnesium Ferritin AST 41 H ALT Ammonia Lactate Dehydrogenase Troponin T C-Reactive Protein Total Protein 3.5 L D Albumin 1.0 L Triglycerides LDL Cholesterol Direct HDL Cholesterol Arterial Blood Glucose Arterial Blood Ionized Calcium Urine WBC (Auto) Urine Creatinine Vancomycin Trough Crossmatch 06/20/21 06/20/21 06/20/21 18:00 18:09 22:38 WBC RBC Hgb Hct MCV MCH MCHC RDW Plt Count Seg Neuts % (Manual) Lymphocytes % (Manual) Monocytes % (Manual) Nucleated RBC % Seg Neutrophils # Man Lymphocytes # (Manual) PT INR APTT D-Dimer ABG pH 7.189 L* POC ABG pCO2 POC ABG pO2 ABG pO2 209.0 H ABG HCO3 26.1 H ABG O2 Saturation 99.1 H ABG Base Excess -2.3 L ABG Hemoglobin 7.4 L ABG Oxyhemoglobin ABG Sodium ABG Potassium ABG Chloride ABG Glucose VBG pH Carboxyhemoglobin Sodium Potassium Chloride Carbon Dioxide BUN Creatinine Glucose POC Glucose 151 H Lactic Acid Calcium Phosphorus Magnesium Ferritin AST ALT Ammonia Lactate Dehydrogenase Troponin T C-Reactive Protein Total Protein Albumin Triglycerides LDL Cholesterol Direct HDL Cholesterol Arterial Blood Glucose Arterial Blood Ionized Calcium Urine WBC (Auto) Urine Creatinine Vancomycin Trough Crossmatch See Detail 06/20/21 06/21/21 06/21/21 23:12 04:21 05:36 WBC RBC Hgb Hct MCV MCH MCHC RDW Plt Count Seg Neuts % (Manual) Lymphocytes % (Manual) Monocytes % (Manual) Nucleated RBC % Seg Neutrophils # Man Lymphocytes # (Manual) PT INR APTT D-Dimer ABG pH 7.31 L POC ABG pCO2 55.4 H POC ABG pO2 156.5 H ABG pO2 ABG HCO3 ABG O2 Saturation ABG Base Excess ABG Hemoglobin 9.0 L ABG Oxyhemoglobin ABG Sodium ABG Potassium 3.3 L ABG Chloride ABG Glucose VBG pH Carboxyhemoglobin Sodium Potassium Chloride Carbon Dioxide BUN Creatinine Glucose POC Glucose 184 H 128 H Lactic Acid Calcium Phosphorus Magnesium Ferritin AST ALT Ammonia Lactate Dehydrogenase Troponin T C-Reactive Protein Total Protein Albumin Triglycerides LDL Cholesterol Direct HDL Cholesterol Arterial Blood Glucose Arterial Blood Ionized Calcium Urine WBC (Auto) Urine Creatinine Vancomycin Trough Crossmatch 06/21/21 06/21/21 06/21/21 07:45 07:45 07:45 WBC 3.3 L RBC 3.08 L Hgb 8.7 L Hct 25.6 L D MCV 83 L MCH MCHC RDW 16.2 H Plt Count 49 L Seg Neuts % (Manual) Lymphocytes % (Manual) Monocytes % (Manual) Nucleated RBC % Seg Neutrophils # Man Lymphocytes # (Manual) PT INR APTT D-Dimer ABG pH POC ABG pCO2 POC ABG pO2 ABG pO2 ABG HCO3 ABG O2 Saturation ABG Base Excess ABG Hemoglobin ABG Oxyhemoglobin ABG Sodium ABG Potassium ABG Chloride ABG Glucose VBG pH Carboxyhemoglobin Sodium Potassium 3.5 L 3.5 L Chloride 108.0 H 107.4 H Carbon Dioxide BUN 86 H 84 H Creatinine 3.5 H 3.4 H Glucose 157 H 158 H POC Glucose Lactic Acid Calcium 7.4 L D 7.6 L Phosphorus Magnesium Ferritin AST 51 H ALT Ammonia Lactate Dehydrogenase Troponin T C-Reactive Protein Total Protein 3.9 L Albumin 1.3 L Triglycerides LDL Cholesterol Direct HDL Cholesterol Arterial Blood Glucose Arterial Blood Ionized Calcium Urine WBC (Auto) Urine Creatinine Vancomycin Trough Crossmatch 06/21/21 06/21/21 06/21/21 11:46 17:28 23:46 WBC RBC Hgb Hct MCV MCH MCHC RDW Plt Count Seg Neuts % (Manual) Lymphocytes % (Manual) Monocytes % (Manual) Nucleated RBC % Seg Neutrophils # Man Lymphocytes # (Manual) PT INR APTT D-Dimer ABG pH POC ABG pCO2 POC ABG pO2 ABG pO2 ABG HCO3 ABG O2 Saturation ABG Base Excess ABG Hemoglobin ABG Oxyhemoglobin ABG Sodium ABG Potassium ABG Chloride ABG Glucose VBG pH Carboxyhemoglobin Sodium Potassium Chloride Carbon Dioxide BUN Creatinine Glucose POC Glucose 130 H 111 H 109 H Lactic Acid Calcium Phosphorus Magnesium Ferritin AST ALT Ammonia Lactate Dehydrogenase Troponin T C-Reactive Protein Total Protein Albumin Triglycerides LDL Cholesterol Direct HDL Cholesterol Arterial Blood Glucose Arterial Blood Ionized Calcium Urine WBC (Auto) Urine Creatinine Vancomycin Trough Crossmatch 06/22/21 06/22/21 06/22/21 04:57 04:57 09:42 WBC 2.8 L RBC 2.86 L Hgb 8.2 L Hct 24.1 L MCV MCH MCHC RDW 16.2 H Plt Count 27 L Seg Neuts % (Manual) Lymphocytes % (Manual) Monocytes % (Manual) Nucleated RBC % Seg Neutrophils # Man Lymphocytes # (Manual) PT INR APTT D-Dimer ABG pH 7.249 L POC ABG pCO2 62.9 H POC ABG pO2 74.4 L ABG pO2 ABG HCO3 ABG O2 Saturation ABG Base Excess ABG Hemoglobin 8.4 L ABG Oxyhemoglobin 92.3 L ABG Sodium 134.4 L ABG Potassium 3.2 L ABG Chloride ABG Glucose 116 H VBG pH Carboxyhemoglobin Sodium 136 L D Potassium Chloride Carbon Dioxide BUN 61 H Creatinine 3.2 H Glucose 115 H POC Glucose Lactic Acid Calcium 7.4 L Phosphorus Magnesium Ferritin AST ALT Ammonia Lactate Dehydrogenase Troponin T C-Reactive Protein Total Protein Albumin Triglycerides LDL Cholesterol Direct HDL Cholesterol Arterial Blood Glucose 116 H Arterial Blood Ionized Calcium Urine WBC (Auto) Urine Creatinine Vancomycin Trough Crossmatch 06/22/21 11:03 WBC RBC Hgb Hct MCV MCH MCHC RDW Plt Count Seg Neuts % (Manual) Lymphocytes % (Manual) Monocytes % (Manual) Nucleated RBC % Seg Neutrophils # Man Lymphocytes # (Manual) PT INR APTT D-Dimer ABG pH POC ABG pCO2 POC ABG pO2 ABG pO2 ABG HCO3 ABG O2 Saturation ABG Base Excess ABG Hemoglobin ABG Oxyhemoglobin ABG Sodium ABG Potassium ABG Chloride ABG Glucose VBG pH Carboxyhemoglobin Sodium Potassium Chloride Carbon Dioxide BUN Creatinine Glucose POC Glucose 106 H Lactic Acid Calcium Phosphorus Magnesium Ferritin AST ALT Ammonia Lactate Dehydrogenase Troponin T C-Reactive Protein Total Protein Albumin Triglycerides LDL Cholesterol Direct HDL Cholesterol Arterial Blood Glucose Arterial Blood Ionized Calcium Urine WBC (Auto) Urine Creatinine Vancomycin Trough Crossmatch Chest x-ray: image reviewed Allied health notes reviewed: RT
[2021-06-22] MEDS: ACETAMINOPHEN 325 MG/10.15 ML ORAL LIQD UNIT DOSE FEEDTUBE PRN (15:05)
[2021-06-23] MEDS: fentaNYL DRIP Premix 2,000 MCG/100 ML BAG IV SCH ×2 (04:47→13:43)
[2021-06-23] MEDS: metroNIDAZOLE/NS 500 MG/100 ML 500 MG/100 ML BAG IV SCH ×3 (04:57→21:42)
[2021-06-23 04:58] LABS: Hematocrit 23.1 % (35.5-45.6); Hemoglobin 7.9 gm/dl (11.8-15.2); Mean Corpuscular HGB Conc 34 % (32-34); Mean Corpuscular Volume 84 fl (84-94); Red Blood Count 2.74 M/mm3 (3.65-5.03); Red Cell Distribution Width 16.5 % (13.2-15.2)
[2021-06-23] MEDS: CEFEPIME/NS 2 GM/100 ML 2 GM/100 ML BAG IV SCH (05:00)
[2021-06-23 05:09] LABS: Platelet Count 28 K/mm3 (140-440)
[2021-06-23 05:21] LABS: Calcium 7.3 mg/dL (8.4-10.2)
[2021-06-23] MEDS: NORepinephrine/NS 8 MG-250 ML 8 MG/250 ML INFUS..BTL IV SCH ×2 (06:37→13:46)
--- NOTE | 2021-06-23 07:32 | XRay Report ---
This radiograph is being dictated for demonstrated purposes. There are at least 3 radiographs more cu rrent then this radiograph at time of dictation. CHEST 1 VIEW 06/20/2021 4:46 AM INDICATION / CLINICAL INFORMATION: follow up respiratory failure. COMPARISON: 06/19/2021 FINDINGS: SUPPORT DEVICES: Stable, satisfactory device positioning. HEART / MEDIASTINUM: No significant abnormality. LUNGS / PLEURA: Redemonstrated and not significantly changed multifocal airspace opacities as compare d to 06/19/2021. No pneumothorax. ADDITIONAL FINDINGS: No significant additional findings. IMPRESSION: 1. No significant change. Signer Name: Javi Briseno DO Signed: 06/23/2021 7:27 AM Workstation Name: [id number]
[2021-06-23] MEDS: IPRATROPIUM/ALBUTEROL SULFATE 3 ML AMPUL.NEB IH SCH ×3 (07:55→19:51)
[2021-06-23] MEDS: FAMOTIDINE 20 MG/2 ML INJ IV SCH ×2 (10:10→21:45)
[2021-06-23] MEDS: ACETAMINOPHEN 325 MG/10.15 ML ORAL LIQD UNIT DOSE FEEDTUBE PRN (10:10)
[2021-06-23] MEDS: SENNOSIDES/DOCUSATE SODIUM 8.6/50 MG TAB FEEDTUBE SCH ×2 (10:12→21:45)
[2021-06-23] MEDS ORDERED: SODIUM CHLORIDE 0.9% 100 ML IV PRN (11:09)
--- NOTE | 2021-06-23 14:46 | Progress Note ---
Assessment and Plan Suspect physiologic sinus tachycardia in the setting of sepsis/shock. Not a candiate for anticougulation secondary to anemia and beta blockers secondary to hypotension as well as reports of melena per nursing staff. Poor prognosis. Will continue to follow Patient seen in conjunction with Dr. Singh who agrees with this plan of care - Patient Problems (1) ANGELES (acute kidney injury) Current Visit: Yes Status: Acute (2) Abscess of left lung with pneumonia Current Visit: Yes Status: Acute (3) Acute respiratory failure with hypoxia Current Visit: Yes Status: Acute (4) Anemia Current Visit: Yes Status: Acute (5) Bilateral pneumonia Current Visit: Yes Status: Acute (6) Failure to thrive Current Visit: Yes Status: Acute Qualifiers: Failure to thrive age range: in adult Qualified Code(s): R62.7 - Adult failure to thrive (7) NSTEMI (non-ST elevated myocardial infarction) Current Visit: Yes Status: Acute (8) Sinus tachycardia Current Visit: Yes Status: Acute (9) History of CVA (cerebrovascular accident) Current Visit: Yes Status: Chronic Subjective Date of service: 06/23/21 Principal diagnosis: Acute hypoxemic resp failure; Pneumonia; PUI COVID-19 infection Interval history: Patient remains intubated Sinus tach 123 trending 110s -120s Objective Vital Signs Temp Pulse Pulse Pulse Resp Resp BP 06/23/21 13:45 114 H 30 H 98/56 06/23/21 13:30 117 H 29 H 97/46 06/23/21 13:15 116 H 29 H 110/47 06/23/21 13:04 118 H 30 H 06/23/21 13:00 116 H 30 H 119/55 06/23/21 12:45 116 H 30 H 116/53 06/23/21 12:30 117 H 30 H 125/54 06/23/21 12:15 118 H 30 H 117/52 06/23/21 12:00 98.6 F 118 H 30 H 122/53 06/23/21 11:45 120 H 30 H 120/54 06/23/21 11:30 120 H 30 H 117/52 06/23/21 11:29 121 H 111/50 06/23/21 11:15 121 H 30 H 115/53 06/23/21 11:10 30 H 06/23/21 11:00 121 H 30 H 111/50 10/18/21 10:45 123 H 30 H 113/53 06/23/21 10:30 123 H 30 H 106/51 06/23/21 10:15 126 H 30 H 106/50 06/23/21 10:10 30 H 06/23/21 10:00 127 H 30 H 107/51 06/23/21 09:45 128 H 30 H 104/50 06/23/21 09:30 129 H 30 H 99/52 06/23/21 09:15 131 H 30 H 98/50 06/23/21 09:00 132 H 20 99/55 06/23/21 08:45 135 H 30 H 113/57 06/23/21 08:30 129 H 30 H 106/49 06/23/21 08:15 132 H 30 H 97/49 06/23/21 08:00 102.7 F H 132 H 29 H 97/47 06/23/21 07:55 133 H 132 H 30 H 98/46 06/23/21 07:45 133 H 30 H 98/46 06/23/21 07:30 133 H 30 H 97/46 06/23/21 07:15 134 H 28 H 94/44 06/23/21 07:00 133 H 31 H 107/53 06/23/21 06:45 131 H 28 H 93/51 06/23/21 06:31 129 H 30 H 76/25 06/23/21 06:15 132 H 30 H 104/47 06/23/21 06:00 132 H 30 H 107/47 06/23/21 05:45 132 H 30 H 101/47 06/23/21 05:36 06/23/21 05:30 132 H 30 H 100/47 06/23/21 05:15 133 H 30 H 99/45 06/23/21 05:00 132 H 24 92/46 06/23/21 04:45 132 H 30 H 96/42 06/23/21 04:43 132 H 96/42 06/23/21 04:30 133 H 30 H 101/47 06/23/21 04:15 132 H 21 106/46 06/23/21 04:00 130 H 126 H 25 H 122/47 06/23/21 03:45 132 H 15 126/54 06/23/21 03:43 100.6 F H 10/18/21 03:30 129 H 22 127/58 06/23/21 03:15 135 H 15 138/57 06/23/21 03:01 136 H 14 130/55 06/23/21 02:45 135 H 16 132/59 06/23/21 02:31 132 H 18 132/59 06/23/21 02:15 131 H 19 137/56 06/23/21 02:00 131 H 20 146/56 06/23/21 01:45 131 H 17 140/58 06/23/21 01:30 130 H 15 145/62 06/23/21 01:15 130 H 20 126/57 06/23/21 01:00 128 H 16 147/59 06/23/21 00:45 129 H 23 140/58 06/23/21 00:31 128 H 21 150/59 06/23/21 00:15 128 H 21 145/57 06/23/21 00:01 126 H 20 132/57 06/23/21 00:00 99.9 F H 128 H 128 H 30 H 06/22/21 23:47 123 H 18 118/58 06/22/21 23:45 127 H 20 118/58 06/22/21 23:31 127 H 19 126/53 06/22/21 23:15 127 H 19 146/61 06/22/21 23:00 128 H 20 139/57 06/22/21 22:45 125 H 17 139/57 06/22/21 22:31 127 H 17 131/57 06/22/21 22:15 126 H 17 144/57 06/22/21 22:05 126 H 142/56 06/22/21 22:01 126 H 20 142/56 06/22/21 21:45 127 H 17 138/56 06/22/21 21:31 126 H 14 136/58 06/22/21 21:15 127 H 16 140/60 06/22/21 21:00 126 H 16 125/58 06/22/21 20:45 126 H 18 135/59 06/22/21 20:31 126 H 18 142/58 06/22/21 20:15 125 H 15 133/61 06/22/21 20:01 124 H 17 133/58 06/22/21 20:00 99.3 F 127 H 126 H 30 H 06/22/21 19:45 128 H 18 124/60 06/22/21 19:30 128 H 18 126/60 06/22/21 19:15 129 H 20 128/56 06/22/21 19:00 129 H 19 126/61 06/22/21 18:45 129 H 18 106/61 06/22/21 18:30 130 H 16 106/61 06/22/21 18:26 06/22/21 18:15 132 H 15 125/59 06/22/21 18:00 128 H 16 117/54 06/22/21 17:45 131 H 17 115/55 06/22/21 17:30 132 H 20 116/57 06/22/21 17:15 132 H 17 124/55 06/22/21 17:00 132 H 17 121/56 06/22/21 16:45 133 H 23 117/59 06/22/21 16:30 133 H 20 126/58 06/22/21 16:15 134 H 27 H 114/54 06/22/21 16:13 133 H 133 H 30 H 06/22/21 16:00 100.4 F H 133 H 33 H 113/55 06/22/21 15:45 136 H 31 H 117/53 06/22/21 15:31 137 H 31 H 111/55 06/22/21 15:15 138 H 24 117/55 06/22/21 15:01 139 H 25 H 124/54 06/22/21 14:50 101.5 F H 06/22/21 14:45 139 H 28 H 137/56 Pulse Ox 06/23/21 13:45 95 06/23/21 13:30 96 06/23/21 13:15 95 06/23/21 13:04 06/23/21 13:00 92 06/23/21 12:45 92 06/23/21 12:30 91 06/23/21 12:15 92 06/23/21 12:00 91 06/23/21 11:45 92 06/23/21 11:30 91 06/23/21 11:29 92 06/23/21 11:15 90 06/23/21 11:10 06/23/21 11:00 90 06/23/21 10:45 89 06/23/21 10:30 89 06/23/21 10:15 90 06/23/21 10:10 06/23/21 10:00 90 06/23/21 09:45 91 06/23/21 09:30 92 06/23/21 09:15 91 06/23/21 09:00 89 06/23/21 08:45 88 06/23/21 08:30 94 06/23/21 08:15 99 06/23/21 08:00 95 06/23/21 07:55 97 06/23/21 07:45 94 06/23/21 07:30 91 06/23/21 07:15 86 06/23/21 07:00 86 06/23/21 06:45 86 06/23/21 06:31 87 06/23/21 06:15 88 06/23/21 06:00 89 06/23/21 05:45 88 06/23/21 05:36 91 06/23/21 05:30 89 06/23/21 05:15 89 06/23/21 05:00 90 06/23/21 04:45 90 06/23/21 04:43 91 06/23/21 04:30 96 06/23/21 04:15 96 06/23/21 04:00 95 06/23/21 03:45 95 06/23/21 03:43 06/23/21 03:30 97 06/23/21 03:15 94 06/23/21 03:01 94 06/23/21 02:45 96 06/23/21 02:31 92 06/23/21 02:15 92 06/23/21 02:00 92 06/23/21 01:45 91 06/23/21 01:30 90 06/23/21 01:15 91 06/23/21 01:00 91 06/23/21 00:45 91 06/23/21 00:31 92 06/23/21 00:15 92 06/23/21 00:01 90 06/23/21 00:00 89 06/22/21 23:47 93 06/22/21 23:45 91 06/22/21 23:31 91 06/22/21 23:15 91 06/22/21 23:00 94 06/22/21 22:45 92 06/22/21 22:31 91 06/22/21 22:15 92 06/22/21 22:05 95 06/22/21 22:01 92 06/22/21 21:45 90 06/22/21 21:31 89 06/22/21 21:15 91 06/22/21 21:00 90 06/22/21 20:45 91 06/22/21 20:31 90 06/22/21 20:15 91 06/22/21 20:01 92 06/22/21 20:00 89 06/22/21 19:45 89 06/22/21 19:30 90 06/22/21 19:15 90 06/22/21 19:00 91 06/22/21 18:45 91 06/22/21 18:30 92 06/22/21 18:26 94 06/22/21 18:15 93 06/22/21 18:00 89 06/22/21 17:45 87 06/22/21 17:30 89 06/22/21 17:15 88 06/22/21 17:00 88 06/22/21 16:45 88 06/22/21 16:30 87 06/22/21 16:15 87 06/22/21 16:13 89 06/22/21 16:00 88 06/22/21 15:45 88 06/22/21 15:31 89 06/22/21 15:15 92 06/22/21 15:01 93 06/22/21 14:50 06/22/21 14:45 92 - Physical Examination General: Other (intubated ) HEENT: Positive: Normocephaly Neck: Positive: neck supple, trachea midline. Negative: JVD/HJR Cardiac: Positive: Regular Rhythm, Tachycardia Lungs: Positive: Ventilated Respirations Neuro: Positive: Other (intubated) Abdomen: Positive: Soft Skin: Negative: Rash Musculoskeletal: No Fluid Collection Extremities: Present: lower extr. pulses, warm. Absent: edema - Labs and Meds CBC 06/23/21 Range/Units 04:40 WBC 2.5 L (4.5-11.0) K/mm3 RBC 2.74 L (3.65-5.03) M/mm3 Hgb 7.9 L (11.8-15.2) gm/dl Hct 23.1 L (35.5-45.6) % Plt Count 28 L (140-440) K/mm3 Comprehensive Metabolic Panel 06/23/21 Range/Units 04:40 Sodium 139 (137-145) mmol/L Potassium 3.7 (3.6-5.0) mmol/L Chloride 101.9 (98-107) mmol/L Carbon Dioxide 23 (22-30) mmol/L BUN 77 H (9-20) mg/dL Creatinine 4.1 H (0.8-1.3) mg/dL Glucose 99 (75-100) mg/dL Calcium 7.3 L (8.4-10.2) mg/dL - Imaging and Cardiology EKG: report reviewed, image reviewed Echo: report reviewed (06/05/2021 - EF 55-60%, normal diastolic fxn, no valvular abnormalities) - Telemetry EKG Rhythm: Sinus Tachycardia - EKG Sinus rhythms and dysrhythmias: sinus tachycardia Repolarization changes or abnormalities: nonspecific abnormality, ST segment, and/or T wave - Allied health notes Allied health notes reviewed: nursing
--- NOTE | 2021-06-23 16:47 | Progress Note ---
Assessment and Plan Cardiopulmonary arrest with ROSC Left pneumothorax Acute hypoxemic respiratory failure on MVS Bilateral pneumonia Interstitial changes with GGO on imaging h/o 2019 novel coronavirus infection - VAP bundle addressed, aspiration precautions HOB >40 - continue lung protective strategies - continue bronchodilators with pulmonary hygiene per RT - wean per pulmonary driven protocols otherwise - Titrate supplemental oxygen for target SpO2 88-90% -Vasopressor support, keep MAP>65. - continue accuchecks with glycemic control per SSI (While critically ill target blood glucose of 140-180 mg/dL; avoid hypoglycemia) - avoid nephrotoxins, renally dose all medications - continue to avoid benzodiazepines, reduce the possibility of delirium - prn analgesia per CPOT score - Maintenance of sleep-wake cycle, avoid delirium - Daily SAT and SBT assessment as tolerated - Enteric nutritional support trickle feeding -Antibiotics- broad spectrum for possible HAP. ID following( Vancomycin, Meropenem) - Stress ulcer prophylaxis- therapeutic PPI, renal dosing -VTE prophylaxis- pharmacologic prophylaxis on hold secondary to anemia and reported melanotic stools -Get FOBT - continue mobility protocols for pressure ulcer prophylaxis - Monitor hemodynamics closely - continue other care per attending / other consultants -Family want to come in to visit today -Supportive HD as tolerated by hemodynamics- Renal input appreciated -Chest tube management per General surgery Discussed extensively with the hospitalist service re goals of care COVID SPECIFIC INTERVENTIONS - repeat COVID-19 test result negative CONDITION: CRITICAL PROGNOSIS: GUARDED CODE STATUS: DNAR The high probability of a clinically significant, sudden or life-threatening d eterioration of the [respiratory, GI, renal & cardiovascular] system(s) required my full and direct attention, intervention and personal management. The aggregate critical care time was [35] minutes without overlap. Time includes spent on; [x] Data Review and interpretation [x] Patient assessment and monitoring of vital signs [x] Documentation [x] Medication orders and management Subjective Date of service: 06/23/21 Principal diagnosis: Acute hypoxemic resp failure; Pneumonia; PUI COVID-19 infection Interval history: Seen and examined at bedside; 24hour events reviewed; nursing and respiratory care staff consulted; 06/22/2021 s/p PEA arrest , ROSC after 7 minutes. Pneumothorax with left chest tube in place. Critically ill with some episodes of desaturations requiring increase in FIO2 to 80%, Remains on PEEP +6 2 pressor shock with ongoing hypotension. High grade fevers (Tmax 101.7), no vomiting, some oropharyngeal bleeding. Left chest tube to wall suction, no leak On Propofol and Fentanyl 06/23/2021 Remains on MVS, increasing FIO2 up to 100%, PEEP now at 8. Reports of melanotic stool by RN Now [id number]. Remains on Propofol and Fentanyl- reports of agitation and vent dys-synchrony when sedation was weaned down Plan for HD today. NO fevers, no vomitng. Remains critically ill. Family now want him to be DNAR but to continue full aggressive care Objective Vital Signs - 12hr 06/23/21 06/23/21 06/23/21 05:00 05:15 05:30 Temperature Pulse Rate 132 H 133 H 132 H Pulse Rate [ Anterior Bilateral Throughout] Pulse Rate [ From Monitor] Respiratory 24 30 H 30 H Rate Respiratory Rate [Anterior Bilateral Throughout] Blood Pressure 92/46 99/45 100/47 O2 Sat by Pulse 90 89 89 Oximetry 06/23/21 06/23/21 06/23/21 05:36 05:45 06:00 Temperature Pulse Rate 132 H 132 H Pulse Rate [ Anterior Bilateral Throughout] Pulse Rate [ From Monitor] Respiratory 30 H 30 H Rate Respiratory Rate [Anterior Bilateral Throughout] Blood Pressure 101/47 107/47 O2 Sat by Pulse 91 88 89 Oximetry 06/23/21 06/23/21 06/23/21 06:15 06:31 06:45 Temperature Pulse Rate 132 H 129 H 131 H Pulse Rate [ Anterior Bilateral Throughout] Pulse Rate [ From Monitor] Respiratory 30 H 30 H 28 H Rate Respiratory Rate [Anterior Bilateral Throughout] Blood Pressure 104/47 76/25 93/51 O2 Sat by Pulse 88 87 86 Oximetry 06/23/21 06/23/21 06/23/21 07:00 07:15 07:30 Temperature Pulse Rate 133 H 134 H 133 H Pulse Rate [ Anterior Bilateral Throughout] Pulse Rate [ From Monitor] Respiratory 31 H 28 H 30 H Rate Respiratory Rate [Anterior Bilateral Throughout] Blood Pressure 107/53 94/44 97/46 O2 Sat by Pulse 86 86 91 Oximetry 06/23/21 06/23/21 06/23/21 07:45 07:55 08:00 Temperature 102.7 F H Pulse Rate 133 H 133 H 132 H Pulse Rate [ 132 H Anterior Bilateral Throughout] Pulse Rate [ 133 H From Monitor] Respiratory 30 H 30 H Rate Respiratory 30 H Rate [Anterior Bilateral Throughout] Blood Pressure 98/46 98/46 97/47 O2 Sat by Pulse 94 97 89 Oximetry 06/23/21 06/23/21 06/23/21 08:15 08:30 08:45 Temperature Pulse Rate 132 H 129 H 135 H Pulse Rate [ Anterior Bilateral Throughout] Pulse Rate [ From Monitor] Respiratory 30 H 30 H 30 H Rate Respiratory Rate [Anterior Bilateral Throughout] Blood Pressure 97/49 106/49 113/57 O2 Sat by Pulse 99 94 88 Oximetry 06/23/21 06/23/21 06/23/21 09:00 09:15 09:30 Temperature Pulse Rate 132 H 131 H 129 H Pulse Rate [ Anterior Bilateral Throughout] Pulse Rate [ From Monitor] Respiratory 20 30 H 30 H Rate Respiratory Rate [Anterior Bilateral Throughout] Blood Pressure 99/55 98/50 99/52 O2 Sat by Pulse 89 91 92 Oximetry 06/23/21 06/23/21 06/23/21 09:45 10:00 10:10 Temperature Pulse Rate 128 H 127 H Pulse Rate [ Anterior Bilateral Throughout] Pulse Rate [ From Monitor] Respiratory 30 H 30 H 30 H Rate Respiratory Rate [Anterior Bilateral Throughout] Blood Pressure 104/50 107/51 O2 Sat by Pulse 91 90 Oximetry 06/23/21 06/23/21 06/23/21 10:15 10:30 10:45 Temperature Pulse Rate 126 H 123 H 123 H Pulse Rate [ Anterior Bilateral Throughout] Pulse Rate [ From Monitor] Respiratory 30 H 30 H 30 H Rate Respiratory Rate [Anterior Bilateral Throughout] Blood Pressure 106/50 106/51 113/53 O2 Sat by Pulse 90 89 89 Oximetry 06/23/21 06/23/21 06/23/21 11:00 11:10 11:15 Temperature Pulse Rate 121 H 121 H Pulse Rate [ Anterior Bilateral Throughout] Pulse Rate [ From Monitor] Respiratory 30 H 30 H 30 H Rate Respiratory Rate [Anterior Bilateral Throughout] Blood Pressure 111/50 115/53 O2 Sat by Pulse 90 90 Oximetry 06/23/21 06/23/21 06/23/21 11:29 11:30 11:45 Temperature Pulse Rate 121 H 120 H 120 H Pulse Rate [ Anterior Bilateral Throughout] Pulse Rate [ From Monitor] Respiratory 30 H 30 H Rate Respiratory Rate [Anterior Bilateral Throughout] Blood Pressure 111/50 117/52 120/54 O2 Sat by Pulse 92 91 92 Oximetry 06/23/21 06/23/21 06/23/21 12:00 12:15 12:30 Temperature 98.6 F Pulse Rate 118 H 118 H 117 H Pulse Rate [ Anterior Bilateral Throughout] Pulse Rate [ 117 H From Monitor] Respiratory 30 H 30 H 30 H Rate Respiratory Rate [Anterior Bilateral Throughout] Blood Pressure 122/53 117/52 125/54 O2 Sat by Pulse 94 92 91 Oximetry 06/23/21 06/23/21 06/23/21 12:45 13:00 13:04 Temperature Pulse Rate 116 H 116 H Pulse Rate [ 118 H Anterior Bilateral Throughout] Pulse Rate [ From Monitor] Respiratory 30 H 30 H Rate Respiratory 30 H Rate [Anterior Bilateral Throughout] Blood Pressure 116/53 119/55 O2 Sat by Pulse 92 92 Oximetry 06/23/21 06/23/21 06/23/21 13:15 13:30 13:45 Temperature Pulse Rate 116 H 117 H 114 H Pulse Rate [ Anterior Bilateral Throughout] Pulse Rate [ From Monitor] Respiratory 29 H 29 H 30 H Rate Respiratory Rate [Anterior Bilateral Throughout] Blood Pressure 110/47 97/46 98/56 O2 Sat by Pulse 95 96 95 Oximetry 06/23/21 06/23/21 06/23/21 14:00 14:15 14:30 Temperature Pulse Rate 116 H 114 H 116 H Pulse Rate [ Anterior Bilateral Throughout] Pulse Rate [ From Monitor] Respiratory 30 H 30 H 30 H Rate Respiratory Rate [Anterior Bilateral Throughout] Blood Pressure 98/56 133/56 O2 Sat by Pulse 97 96 93 Oximetry 06/23/21 06/23/21 06/23/21 14:45 15:00 15:15 Temperature Pulse Rate 116 H 116 H 117 H Pulse Rate [ Anterior Bilateral Throughout] Pulse Rate [ From Monitor] Respiratory 30 H 31 H 24 Rate Respiratory Rate [Anterior Bilateral Throughout] Blood Pressure 131/58 132/56 132/57 O2 Sat by Pulse 95 94 93 Oximetry 06/23/21 06/23/21 06/23/21 15:30 15:45 16:00 Temperature 97.9 F Pulse Rate 117 H 116 H 116 H Pulse Rate [ Anterior Bilateral Throughout] Pulse Rate [ From Monitor] Respiratory 20 30 H 23 Rate Respiratory Rate [Anterior Bilateral Throughout] Blood Pressure 129/57 122/57 123/53 O2 Sat by Pulse 92 93 93 Oximetry 06/23/21 16:15 Temperature Pulse Rate 117 H Pulse Rate [ Anterior Bilateral Throughout] Pulse Rate [ From Monitor] Respiratory 30 H Rate Respiratory Rate [Anterior Bilateral Throughout] Blood Pressure 123/53 O2 Sat by Pulse 95 Oximetry Constitutional: appears uncomfortable, other (ill looking) Eyes: non-icteric ENT: oropharynx moist, other (ETT at 23 cm MADHAVI) Neck: supple, no JVD Effort: mildly labored Ascultation: Bilateral: diminished breath sounds, rhonchi Percussion: Bilateral: not dull Cardiovascular: regular rate and rhythm, other (S1,S2) Gastrointestinal: hypoactive bowel sounds, soft, non-tender, other (distended but very soft) Integumentary: normal Extremities: no cyanosis, no edema, pulses normal, no ischemia or petechiae Neurologic: pupils equal and round, CN II-XII normal, other (encephalopathic, unresponsive, sedated) Psychiatric: other (unable to assess, sedated) CBC and BMP: 06/25/21 Unknown 06/25/21 Unknown ABG, PT/INR, D-dimer: ABG ABG pH 7.204 (7.320-7.450) L 06/23/21 04:40 POC ABG pCO2 63.9 mmHg (32.0-48.0) H 06/23/21 04:40 ABG pCO2 70.2 mm Hg 06/20/21 18:00 POC ABG pO2 68.2 mmHg (83-108) L 06/23/21 04:40 ABG pO2 209.0 mm Hg (80.0-90.0) H 06/20/21 18:00 POC ABG HCO3 24.6 06/23/21 04:40 ABG O2 Saturation 90.4 (0-100) 06/23/21 04:40 PT/INR, D-dimer PT 19.2 Sec. (12.2-14.9) H 06/19/21 09:37 INR 1.46 (0.87-1.13) H 06/19/21 09:37 D-Dimer 3584.01 ng/mlDDU (0-234) H 05/27/21 08:09 Abnormal lab findings: Abnormal Labs 05/23/21 05/23/21 05/23/21 18:48 18:48 18:48 WBC 11.8 H RBC 5.18 H Hgb Hct MCV MCH MCHC RDW Plt Count Seg Neuts % (Manual) 84.0 H Lymphocytes % (Manual) Monocytes % (Manual) Nucleated RBC % Seg Neutrophils # Man 9.9 H Lymphocytes # (Manual) PT INR APTT D-Dimer > 83176 H ABG pH POC ABG pCO2 POC ABG pO2 ABG pO2 ABG HCO3 ABG O2 Saturation ABG Base Excess ABG Hemoglobin ABG Oxyhemoglobin ABG Sodium ABG Potassium ABG Chloride ABG Glucose VBG pH Carboxyhemoglobin Sodium Potassium Chloride Carbon Dioxide BUN Creatinine Glucose POC Glucose Lactic Acid 2.30 H* Calcium Phosphorus Magnesium Ferritin AST ALT Ammonia Lactate Dehydrogenase Troponin T C-Reactive Protein Total Protein Albumin Triglycerides LDL Cholesterol Direct HDL Cholesterol Arterial Blood Glucose Arterial Blood Ionized Calcium Urine WBC (Auto) Urine Creatinine Vancomycin Trough Crossmatch 05/23/21 05/23/21 05/23/21 18:48 18:48 18:48 WBC RBC Hgb Hct MCV MCH MCHC RDW Plt Count Seg Neuts % (Manual) Lymphocytes % (Manual) Monocytes % (Manual) Nucleated RBC % Seg Neutrophils # Man Lymphocytes # (Manual) PT INR APTT D-Dimer ABG pH POC ABG pCO2 POC ABG pO2 ABG pO2 ABG HCO3 ABG O2 Saturation ABG Base Excess ABG Hemoglobin ABG Oxyhemoglobin ABG Sodium ABG Potassium ABG Chloride ABG Glucose VBG pH Carboxyhemoglobin Sodium 151 H Potassium 5.1 H Chloride 113.2 H Carbon Dioxide 17 L BUN 180 H Creatinine 4.3 H Glucose 114 H POC Glucose Lactic Acid Calcium Phosphorus Magnesium Ferritin 2000.0 H AST ALT Ammonia 22.0 L Lactate Dehydrogenase 577 H Troponin T C-Reactive Protein 8.80 H Total Protein 9.4 H Albumin 3.0 L Triglycerides LDL Cholesterol Direct HDL Cholesterol Arterial Blood Glucose Arterial Blood Ionized Calcium Urine WBC (Auto) Urine Creatinine Vancomycin Trough Crossmatch 05/23/21 05/24/21 05/24/21 21:06 02:09 02:09 WBC RBC Hgb Hct MCV MCH MCHC RDW Plt Count Seg Neuts % (Manual) Lymphocytes % (Manual) Monocytes % (Manual) Nucleated RBC % Seg Neutrophils # Man Lymphocytes # (Manual) PT INR APTT D-Dimer ABG pH POC ABG pCO2 POC ABG pO2 ABG pO2 ABG HCO3 ABG O2 Saturation ABG Base Excess ABG Hemoglobin ABG Oxyhemoglobin ABG Sodium ABG Potassium ABG Chloride ABG Glucose VBG pH 7.254 L Carboxyhemoglobin Sodium Potassium Chloride Carbon Dioxide BUN Creatinine Glucose POC Glucose Lactic Acid 2.10 H* 2.30 H* Calcium Phosphorus Magnesium Ferritin AST ALT Ammonia Lactate Dehydrogenase Troponin T C-Reactive Protein Total Protein Albumin Triglycerides LDL Cholesterol Direct HDL Cholesterol Arterial Blood Glucose Arterial Blood Ionized Calcium Urine WBC (Auto) Urine Creatinine Vancomycin Trough Crossmatch 05/24/21 05/24/21 05/24/21 13:11 17:34 18:12 WBC RBC Hgb Hct MCV MCH MCHC RDW Plt Count Seg Neuts % (Manual) Lymphocytes % (Manual) Monocytes % (Manual) Nucleated RBC % Seg Neutrophils # Man Lymphocytes # (Manual) PT INR APTT D-Dimer ABG pH POC ABG pCO2 POC ABG pO2 ABG pO2 ABG HCO3 ABG O2 Saturation ABG Base Excess ABG Hemoglobin ABG Oxyhemoglobin ABG Sodium ABG Potassium ABG Chloride ABG Glucose VBG pH Carboxyhemoglobin Sodium 155 H Potassium 6.9 H* D 5.7 H Chloride 121.9 H Carbon Dioxide 20 L BUN 139 H Creatinine 2.7 H Glucose 139 H POC Glucose 153 H Lactic Acid Calcium Phosphorus Magnesium Ferritin AST ALT Ammonia Lactate Dehydrogenase Troponin T C-Reactive Protein Total Protein Albumin Triglycerides LDL Cholesterol Direct HDL Cholesterol Arterial Blood Glucose Arterial Blood Ionized Calcium Urine WBC (Auto) Urine Creatinine Vancomycin Trough Crossmatch 05/25/21 05/25/21 05/26/21 11:33 11:33 03:15 WBC 13.8 H RBC 5.06 H Hgb Hct MCV MCH MCHC RDW Plt Count Seg Neuts % (Manual) Lymphocytes % (Manual) Monocytes % (Manual) Nucleated RBC % Seg Neutrophils # Man Lymphocytes # (Manual) PT INR APTT D-Dimer ABG pH POC ABG pCO2 POC ABG pO2 ABG pO2 ABG HCO3 ABG O2 Saturation ABG Base Excess ABG Hemoglobin ABG Oxyhemoglobin ABG Sodium ABG Potassium ABG Chloride ABG Glucose VBG pH Carboxyhemoglobin Sodium 164 H* D 166 H* Potassium 5.4 H 5.5 H Chloride 131.3 H 129.2 H Carbon Dioxide BUN 109 H 102 H Creatinine 1.9 H 1.8 H Glucose 117 H 113 H POC Glucose Lactic Acid Calcium Phosphorus Magnesium Ferritin AST ALT Ammonia Lactate Dehydrogenase 711 H Troponin T C-Reactive Protein 7.90 H Total Protein Albumin Triglycerides LDL Cholesterol Direct HDL Cholesterol Arterial Blood Glucose Arterial Blood Ionized Calcium Urine WBC (Auto) Urine Creatinine Vancomycin Trough Crossmatch 05/26/21 05/26/21 05/26/21 03:15 03:15 03:15 WBC 13.1 H RBC 5.43 H Hgb 15.3 H Hct 48.5 H MCV MCH MCHC RDW 15.4 H Plt Count Seg Neuts % (Manual) Lymphocytes % (Manual) Monocytes % (Manual) Nucleated RBC % Seg Neutrophils # Man Lymphocytes # (Manual) PT INR APTT D-Dimer 6229.14 H ABG pH POC ABG pCO2 POC ABG pO2 ABG pO2 ABG HCO3 ABG O2 Saturation ABG Base Excess ABG Hemoglobin ABG Oxyhemoglobin ABG Sodium ABG Potassium ABG Chloride ABG Glucose VBG pH Carboxyhemoglobin Sodium Potassium Chloride Carbon Dioxide BUN Creatinine Glucose POC Glucose Lactic Acid Calcium Phosphorus Magnesium Ferritin 2991.0 H AST ALT Ammonia Lactate Dehydrogenase Troponin T C-Reactive Protein Total Protein Albumin Triglycerides LDL Cholesterol Direct HDL Cholesterol Arterial Blood Glucose Arterial Blood Ionized Calcium Urine WBC (Auto) Urine Creatinine Vancomycin Trough Crossmatch 05/27/21 05/27/21 05/27/21 08:09 08:09 08:09 WBC 12.4 H RBC 5.27 H Hgb Hct 46.6 H MCV MCH MCHC 31 L RDW 15.7 H Plt Count Seg Neuts % (Manual) Lymphocytes % (Manual) Monocytes % (Manual) Nucleated RBC % Seg Neutrophils # Man Lymphocytes # (Manual) PT INR APTT D-Dimer 3584.01 H ABG pH POC ABG pCO2 POC ABG pO2 ABG pO2 ABG HCO3 ABG O2 Saturation ABG Base Excess ABG Hemoglobin ABG Oxyhemoglobin ABG Sodium ABG Potassium ABG Chloride ABG Glucose VBG pH Carboxyhemoglobin Sodium 174 H* Potassium Chloride 136.9 H Carbon Dioxide BUN 90 H Creatinine 1.8 H Glucose POC Glucose Lactic Acid Calcium Phosphorus Magnesium Ferritin AST ALT Ammonia Lactate Dehydrogenase 642 H Troponin T C-Reactive Protein 5.20 H Total Protein Albumin Triglycerides LDL Cholesterol Direct HDL Cholesterol Arterial Blood Glucose Arterial Blood Ionized Calcium Urine WBC (Auto) Urine Creatinine Vancomycin Trough Crossmatch 05/27/21 05/28/21 05/28/21 08:09 07:31 07:31 WBC RBC Hgb Hct MCV MCH 27 L MCHC 31 L RDW Plt Count Seg Neuts % (Manual) 88.0 H Lymphocytes % (Manual) 11.0 L Monocytes % (Manual) Nucleated RBC % Seg Neutrophils # Man 8.3 H Lymphocytes # (Manual) 1.0 L PT INR APTT D-Dimer ABG pH POC ABG pCO2 POC ABG pO2 ABG pO2 ABG HCO3 ABG O2 Saturation ABG Base Excess ABG Hemoglobin ABG Oxyhemoglobin ABG Sodium ABG Potassium ABG Chloride ABG Glucose VBG pH Carboxyhemoglobin Sodium 162 H* D Potassium Chloride 125.8 H Carbon Dioxide BUN 72 H Creatinine 1.6 H Glucose 131 H POC Glucose Lactic Acid Calcium Phosphorus Magnesium 3.00 H Ferritin 2742.0 H AST ALT Ammonia Lactate Dehydrogenase Troponin T C-Reactive Protein Total Protein Albumin Triglycerides LDL Cholesterol Direct HDL Cholesterol Arterial Blood Glucose Arterial Blood Ionized Calcium Urine WBC (Auto) Urine Creatinine Vancomycin Trough Crossmatch 05/29/21 05/29/21 05/29/21 06:40 06:40 17:58 WBC 14.1 H RBC Hgb Hct MCV MCH 27 L MCHC 31 L RDW Plt Count Seg Neuts % (Manual) 85.0 H Lymphocytes % (Manual) 9.0 L Monocytes % (Manual) Nucleated RBC % 1.0 H Seg Neutrophils # Man 12.0 H Lymphocytes # (Manual) PT INR APTT D-Dimer ABG pH 7.505 H POC ABG pCO2 30.3 L POC ABG pO2 128.1 H ABG pO2 ABG HCO3 ABG O2 Saturation ABG Base Excess ABG Hemoglobin 11.9 L ABG Oxyhemoglobin ABG Sodium ABG Potassium ABG Chloride 113.0 H ABG Glucose 110 H VBG pH Carboxyhemoglobin Sodium 148 H D Potassium Chloride 111.3 H Carbon Dioxide 20 L BUN 45 H Creatinine Glucose POC Glucose Lactic Acid Calcium Phosphorus 2.10 L D Magnesium Ferritin AST ALT Ammonia Lactate Dehydrogenase Troponin T C-Reactive Protein Total Protein Albumin Triglycerides LDL Cholesterol Direct HDL Cholesterol Arterial Blood Glucose 110 H Arterial Blood Ionized Calcium 4.5 L Urine WBC (Auto) Urine Creatinine Vancomycin Trough Crossmatch 05/30/21 05/30/21 05/30/21 01:00 06:06 13:48 WBC RBC Hgb Hct MCV MCH MCHC RDW Plt Count Seg Neuts % (Manual) Lymphocytes % (Manual) Monocytes % (Manual) Nucleated RBC % Seg Neutrophils # Man Lymphocytes # (Manual) PT INR APTT D-Dimer ABG pH POC ABG pCO2 POC ABG pO2 ABG pO2 90.9 H ABG HCO3 ABG O2 Saturation ABG Base Excess ABG Hemoglobin 11.8 L ABG Oxyhemoglobin ABG Sodium ABG Potassium ABG Chloride ABG Glucose VBG pH Carboxyhemoglobin Sodium 150 H Potassium Chloride 117.6 H Carbon Dioxide BUN 40 H Creatinine Glucose POC Glucose Lactic Acid Calcium 8.3 L Phosphorus Magnesium Ferritin AST ALT Ammonia Lactate Dehydrogenase Troponin T C-Reactive Protein Total Protein Albumin Triglycerides LDL Cholesterol Direct HDL Cholesterol Arterial Blood Glucose Arterial Blood Ionized Calcium Urine WBC (Auto) 12.0 H Urine Creatinine Vancomycin Trough Crossmatch 05/30/21 05/31/21 05/31/21 22:32 02:22 02:22 WBC RBC Hgb 11.2 L Hct 34.8 L MCV MCH MCHC RDW Plt Count 127 L Seg Neuts % (Manual) 97.0 H Lymphocytes % (Manual) Monocytes % (Manual) Nucleated RBC % Seg Neutrophils # Man 10.5 H Lymphocytes # (Manual) 0.0 L PT INR APTT D-Dimer ABG pH 7.454 H POC ABG pCO2 POC ABG pO2 ABG pO2 141.8 H ABG HCO3 19.9 L ABG O2 Saturation ABG Base Excess -2.7 L ABG Hemoglobin ABG Oxyhemoglobin ABG Sodium ABG Potassium ABG Chloride ABG Glucose VBG pH Carboxyhemoglobin Sodium 152 H Potassium Chloride 118.9 H Carbon Dioxide 19 L BUN 48 H Creatinine 1.5 H Glucose 101 H POC Glucose Lactic Acid Calcium 8.3 L Phosphorus Magnesium Ferritin AST ALT Ammonia Lactate Dehydrogenase Troponin T C-Reactive Protein Total Protein Albumin Triglycerides LDL Cholesterol Direct HDL Cholesterol Arterial Blood Glucose Arterial Blood Ionized Calcium Urine WBC (Auto) Urine Creatinine Vancomycin Trough Crossmatch 05/31/21 05/31/21 06/01/21 11:42 21:28 07:10 WBC RBC Hgb Hct MCV MCH MCHC RDW Plt Count Seg Neuts % (Manual) Lymphocytes % (Manual) Monocytes % (Manual) Nucleated RBC % Seg Neutrophils # Man Lymphocytes # (Manual) PT INR APTT D-Dimer ABG pH POC ABG pCO2 POC ABG pO2 ABG pO2 ABG HCO3 ABG O2 Saturation ABG Base Excess ABG Hemoglobin ABG Oxyhemoglobin ABG Sodium ABG Potassium ABG Chloride ABG Glucose VBG pH Carboxyhemoglobin Sodium 150 H Potassium Chloride 115.7 H Carbon Dioxide BUN 47 H Creatinine Glucose 115 H POC Glucose 161 H Lactic Acid Calcium Phosphorus Magnesium 2.50 H Ferritin AST ALT Ammonia Lactate Dehydrogenase Troponin T C-Reactive Protein Total Protein Albumin Triglycerides LDL Cholesterol Direct HDL Cholesterol Arterial Blood Glucose Arterial Blood Ionized Calcium Urine WBC (Auto) Urine Creatinine Vancomycin Trough 20.2 H Crossmatch 06/01/21 06/01/21 06/01/21 07:10 07:54 10:39 WBC RBC Hgb 10.7 L Hct 33.5 L MCV MCH MCHC RDW Plt Count Seg Neuts % (Manual) 92.0 H Lymphocytes % (Manual) 4.0 L Monocytes % (Manual) Nucleated RBC % Seg Neutrophils # Man Lymphocytes # (Manual) 0.3 L PT INR APTT D-Dimer ABG pH POC ABG pCO2 POC ABG pO2 ABG pO2 ABG HCO3 ABG O2 Saturation ABG Base Excess ABG Hemoglobin ABG Oxyhemoglobin ABG Sodium ABG Potassium ABG Chloride ABG Glucose VBG pH Carboxyhemoglobin Sodium 152 H Potassium Chloride 117.6 H Carbon Dioxide BUN 50 H Creatinine Glucose 140 H POC Glucose 127 H Lactic Acid Calcium 8.3 L Phosphorus Magnesium Ferritin AST ALT Ammonia Lactate Dehydrogenase Troponin T C-Reactive Protein Total Protein Albumin Triglycerides LDL Cholesterol Direct HDL Cholesterol Arterial Blood Glucose Arterial Blood Ionized Calcium Urine WBC (Auto) Urine Creatinine Vancomycin Trough Crossmatch 06/01/21 06/01/21 06/01/21 11:11 16:16 21:45 WBC RBC Hgb Hct MCV MCH MCHC RDW Plt Count Seg Neuts % (Manual) Lymphocytes % (Manual) Monocytes % (Manual) Nucleated RBC % Seg Neutrophils # Man Lymphocytes # (Manual) PT INR APTT D-Dimer ABG pH POC ABG pCO2 POC ABG pO2 ABG pO2 ABG HCO3 ABG O2 Saturation ABG Base Excess ABG Hemoglobin ABG Oxyhemoglobin ABG Sodium ABG Potassium ABG Chloride ABG Glucose VBG pH Carboxyhemoglobin Sodium Potassium Chloride Carbon Dioxide BUN Creatinine Glucose POC Glucose 120 H 129 H 150 H Lactic Acid Calcium Phosphorus Magnesium Ferritin AST ALT Ammonia Lactate Dehydrogenase Troponin T C-Reactive Protein Total Protein Albumin Triglycerides LDL Cholesterol Direct HDL Cholesterol Arterial Blood Glucose Arterial Blood Ionized Calcium Urine WBC (Auto) Urine Creatinine Vancomycin Trough Crossmatch 06/02/21 06/02/21 06/02/21 06:53 06:53 07:52 WBC RBC Hgb 10.4 L Hct 32.4 L MCV MCH 27 L MCHC RDW Plt Count Seg Neuts % (Manual) 93.0 H Lymphocytes % (Manual) 3.0 L Monocytes % (Manual) Nucleated RBC % Seg Neutrophils # Man Lymphocytes # (Manual) 0.2 L PT INR APTT D-Dimer ABG pH POC ABG pCO2 POC ABG pO2 ABG pO2 ABG HCO3 ABG O2 Saturation ABG Base Excess ABG Hemoglobin ABG Oxyhemoglobin ABG Sodium ABG Potassium ABG Chloride ABG Glucose VBG pH Carboxyhemoglobin Sodium 149 H Potassium Chloride 112.6 H Carbon Dioxide BUN 54 H Creatinine Glucose 123 H POC Glucose 116 H Lactic Acid Calcium 8.2 L Phosphorus Magnesium Ferritin AST ALT Ammonia Lactate Dehydrogenase Troponin T C-Reactive Protein Total Protein Albumin Triglycerides LDL Cholesterol Direct HDL Cholesterol Arterial Blood Glucose Arterial Blood Ionized Calcium Urine WBC (Auto) Urine Creatinine Vancomycin Trough Crossmatch 06/03/21 06/03/21 06/03/21 05:57 05:57 21:23 WBC RBC Hgb 10.7 L Hct 33.0 L MCV 83 L MCH 27 L MCHC RDW Plt Count Seg Neuts % (Manual) 88.0 H Lymphocytes % (Manual) 8.0 L Monocytes % (Manual) Nucleated RBC % 2.0 H Seg Neutrophils # Man Lymphocytes # (Manual) 0.6 L PT INR APTT D-Dimer ABG pH POC ABG pCO2 POC ABG pO2 39.0 L ABG pO2 ABG HCO3 ABG O2 Saturation ABG Base Excess ABG Hemoglobin ABG Oxyhemoglobin 69.1 L ABG Sodium 134.1 L ABG Potassium ABG Chloride ABG Glucose 135 H VBG pH Carboxyhemoglobin Sodium Potassium Chloride Carbon Dioxide BUN 36 H Creatinine Glucose 102 H POC Glucose Lactic Acid Calcium 8.0 L Phosphorus 2.20 L D Magnesium Ferritin AST ALT Ammonia Lactate Dehydrogenase Troponin T C-Reactive Protein Total Protein Albumin Triglycerides LDL Cholesterol Direct HDL Cholesterol Arterial Blood Glucose 135 H Arterial Blood Ionized Calcium Urine WBC (Auto) Urine Creatinine Vancomycin Trough Crossmatch 06/04/21 06/04/21 06/04/21 07:04 07:04 17:42 WBC RBC Hgb 11.3 L Hct 34.9 L MCV MCH 27 L MCHC RDW Plt Count Seg Neuts % (Manual) Lymphocytes % (Manual) 5.0 L Monocytes % (Manual) Nucleated RBC % Seg Neutrophils # Man 8.4 H Lymphocytes # (Manual) 0.5 L PT INR APTT D-Dimer ABG pH POC ABG pCO2 POC ABG pO2 ABG pO2 ABG HCO3 ABG O2 Saturation ABG Base Excess ABG Hemoglobin ABG Oxyhemoglobin ABG Sodium ABG Potassium ABG Chloride ABG Glucose VBG pH Carboxyhemoglobin Sodium Potassium Chloride Carbon Dioxide BUN 27 H Creatinine Glucose POC Glucose 136 H Lactic Acid Calcium 8.2 L Phosphorus Magnesium Ferritin AST ALT Ammonia Lactate Dehydrogenase Troponin T C-Reactive Protein Total Protein Albumin Triglycerides LDL Cholesterol Direct HDL Cholesterol Arterial Blood Glucose Arterial Blood Ionized Calcium Urine WBC (Auto) Urine Creatinine Vancomycin Trough Crossmatch 06/05/21 06/05/21 06/05/21 05:10 12:32 15:45 WBC RBC Hgb Hct MCV MCH MCHC RDW Plt Count Seg Neuts % (Manual) Lymphocytes % (Manual) Monocytes % (Manual) Nucleated RBC % Seg Neutrophils # Man Lymphocytes # (Manual) PT INR APTT D-Dimer ABG pH POC ABG pCO2 POC ABG pO2 ABG pO2 ABG HCO3 ABG O2 Saturation ABG Base Excess ABG Hemoglobin ABG Oxyhemoglobin ABG Sodium ABG Potassium ABG Chloride ABG Glucose VBG pH Carboxyhemoglobin Sodium Potassium 3.5 L Chloride Carbon Dioxide BUN 35 H Creatinine Glucose 130 H POC Glucose 122 H 119 H Lactic Acid Calcium 8.2 L Phosphorus Magnesium Ferritin AST ALT Ammonia Lactate Dehydrogenase Troponin T C-Reactive Protein Total Protein Albumin Triglycerides LDL Cholesterol Direct HDL Cholesterol Arterial Blood Glucose Arterial Blood Ionized Calcium Urine WBC (Auto) Urine Creatinine Vancomycin Trough Crossmatch 06/05/21 06/05/21 06/06/21 20:06 21:27 00:04 WBC RBC Hgb Hct MCV MCH MCHC RDW Plt Count Seg Neuts % (Manual) Lymphocytes % (Manual) Monocytes % (Manual) Nucleated RBC % Seg Neutrophils # Man Lymphocytes # (Manual) PT INR APTT D-Dimer ABG pH 7.456 H POC ABG pCO2 POC ABG pO2 ABG pO2 ABG HCO3 ABG O2 Saturation ABG Base Excess ABG Hemoglobin 10.3 L ABG Oxyhemoglobin ABG Sodium ABG Potassium 3.1 L ABG Chloride ABG Glucose 125 H VBG pH Carboxyhemoglobin 0.3 L Sodium Potassium Chloride Carbon Dioxide BUN Creatinine Glucose POC Glucose 113 H Lactic Acid Calcium Phosphorus Magnesium Ferritin AST ALT Ammonia Lactate Dehydrogenase Troponin T C-Reactive Protein 19.60 H Total Protein Albumin Triglycerides LDL Cholesterol Direct HDL Cholesterol Arterial Blood Glucose 125 H Arterial Blood Ionized Calcium Urine WBC (Auto) Urine Creatinine Vancomycin Trough Crossmatch 06/06/21 06/06/21 06/07/21 04:35 22:37 05:54 WBC RBC Hgb Hct MCV MCH MCHC RDW Plt Count Seg Neuts % (Manual) Lymphocytes % (Manual) Monocytes % (Manual) Nucleated RBC % Seg Neutrophils # Man Lymphocytes # (Manual) PT INR APTT D-Dimer ABG pH POC ABG pCO2 POC ABG pO2 ABG pO2 ABG HCO3 ABG O2 Saturation ABG Base Excess ABG Hemoglobin ABG Oxyhemoglobin ABG Sodium ABG Potassium ABG Chloride ABG Glucose VBG pH Carboxyhemoglobin Sodium Potassium Chloride Carbon Dioxide BUN 43 H Creatinine Glucose POC Glucose 114 H 130 H Lactic Acid Calcium 7.6 L Phosphorus Magnesium Ferritin AST ALT Ammonia Lactate Dehydrogenase Troponin T C-Reactive Protein Total Protein Albumin Triglycerides LDL Cholesterol Direct HDL Cholesterol Arterial Blood Glucose Arterial Blood Ionized Calcium Urine WBC (Auto) Urine Creatinine Vancomycin Trough Crossmatch 06/07/21 06/07/21 06/07/21 07:32 10:03 11:36 WBC RBC 3.63 L Hgb 9.8 L Hct 30.3 L MCV 83 L MCH 27 L MCHC RDW Plt Count Seg Neuts % (Manual) Lymphocytes % (Manual) Monocytes % (Manual) Nucleated RBC % Seg Neutrophils # Man Lymphocytes # (Manual) PT INR APTT D-Dimer ABG pH POC ABG pCO2 POC ABG pO2 ABG pO2 ABG HCO3 ABG O2 Saturation ABG Base Excess ABG Hemoglobin ABG Oxyhemoglobin ABG Sodium ABG Potassium ABG Chloride ABG Glucose VBG pH Carboxyhemoglobin Sodium Potassium 3.2 L Chloride 108.5 H Carbon Dioxide BUN 36 H Creatinine Glucose 139 H POC Glucose 125 H Lactic Acid Calcium 8.0 L Phosphorus Magnesium Ferritin AST ALT Ammonia Lactate Dehydrogenase Troponin T C-Reactive Protein Total Protein Albumin Triglycerides LDL Cholesterol Direct HDL Cholesterol Arterial Blood Glucose Arterial Blood Ionized Calcium Urine WBC (Auto) Urine Creatinine Vancomycin Trough Crossmatch 06/07/21 06/07/21 06/08/21 17:54 22:14 07:18 WBC RBC Hgb Hct MCV MCH MCHC RDW Plt Count Seg Neuts % (Manual) Lymphocytes % (Manual) Monocytes % (Manual) Nucleated RBC % Seg Neutrophils # Man Lymphocytes # (Manual) PT INR APTT D-Dimer ABG pH POC ABG pCO2 POC ABG pO2 ABG pO2 ABG HCO3 ABG O2 Saturation ABG Base Excess ABG Hemoglobin ABG Oxyhemoglobin ABG Sodium ABG Potassium ABG Chloride ABG Glucose VBG pH Carboxyhemoglobin Sodium 149 H Potassium Chloride 110.2 H Carbon Dioxide BUN 31 H Creatinine Glucose 131 H POC Glucose 121 H 131 H Lactic Acid Calcium 8.1 L Phosphorus Magnesium Ferritin AST ALT Ammonia Lactate Dehydrogenase Troponin T C-Reactive Protein Total Protein Albumin Triglycerides LDL Cholesterol Direct HDL Cholesterol Arterial Blood Glucose Arterial Blood Ionized Calcium Urine WBC (Auto) Urine Creatinine Vancomycin Trough Crossmatch 06/08/21 06/08/21 06/08/21 07:45 12:07 18:02 WBC RBC Hgb Hct MCV MCH MCHC RDW Plt Count Seg Neuts % (Manual) Lymphocytes % (Manual) Monocytes % (Manual) Nucleated RBC % Seg Neutrophils # Man Lymphocytes # (Manual) PT INR APTT D-Dimer ABG pH POC ABG pCO2 POC ABG pO2 ABG pO2 ABG HCO3 ABG O2 Saturation ABG Base Excess ABG Hemoglobin ABG Oxyhemoglobin ABG Sodium ABG Potassium ABG Chloride ABG Glucose VBG pH Carboxyhemoglobin Sodium Potassium Chloride Carbon Dioxide BUN Creatinine Glucose POC Glucose 120 H 127 H 148 H Lactic Acid Calcium Phosphorus Magnesium Ferritin AST ALT Ammonia Lactate Dehydrogenase Troponin T C-Reactive Protein Total Protein Albumin Triglycerides LDL Cholesterol Direct HDL Cholesterol Arterial Blood Glucose Arterial Blood Ionized Calcium Urine WBC (Auto) Urine Creatinine Vancomycin Trough Crossmatch 06/09/21 06/09/21 06/09/21 05:51 05:51 11:37 WBC 3.9 L RBC 3.38 L Hgb 9.4 L Hct 28.5 L MCV MCH MCHC RDW Plt Count Seg Neuts % (Manual) Lymphocytes % (Manual) Monocytes % (Manual) Nucleated RBC % Seg Neutrophils # Man Lymphocytes # (Manual) PT INR APTT D-Dimer ABG pH POC ABG pCO2 POC ABG pO2 ABG pO2 ABG HCO3 ABG O2 Saturation ABG Base Excess ABG Hemoglobin ABG Oxyhemoglobin ABG Sodium ABG Potassium ABG Chloride ABG Glucose VBG pH Carboxyhemoglobin Sodium Potassium Chloride 108.4 H Carbon Dioxide BUN 32 H Creatinine Glucose 137 H POC Glucose 115 H Lactic Acid Calcium 7.5 L Phosphorus Magnesium Ferritin AST 55 H ALT Ammonia Lactate Dehydrogenase Troponin T C-Reactive Protein 4.10 H Total Protein 5.6 L Albumin 2.0 L Triglycerides LDL Cholesterol Direct HDL Cholesterol Arterial Blood Glucose Arterial Blood Ionized Calcium Urine WBC (Auto) Urine Creatinine Vancomycin Trough Crossmatch 06/09/21 06/09/21 06/10/21 17:32 22:18 01:52 WBC RBC 3.62 L Hgb 9.9 L Hct 29.8 L MCV 82 L MCH 27 L MCHC RDW Plt Count Seg Neuts % (Manual) Lymphocytes % (Manual) Monocytes % (Manual) Nucleated RBC % Seg Neutrophils # Man Lymphocytes # (Manual) PT INR APTT D-Dimer ABG pH POC ABG pCO2 POC ABG pO2 ABG pO2 ABG HCO3 ABG O2 Saturation ABG Base Excess ABG Hemoglobin ABG Oxyhemoglobin ABG Sodium ABG Potassium ABG Chloride ABG Glucose VBG pH Carboxyhemoglobin Sodium Potassium Chloride Carbon Dioxide BUN Creatinine Glucose POC Glucose 113 H 110 H Lactic Acid Calcium Phosphorus Magnesium Ferritin AST ALT Ammonia Lactate Dehydrogenase Troponin T C-Reactive Protein Total Protein Albumin Triglycerides LDL Cholesterol Direct HDL Cholesterol Arterial Blood Glucose Arterial Blood Ionized Calcium Urine WBC (Auto) Urine Creatinine Vancomycin Trough Crossmatch 06/10/21 06/10/21 06/10/21 01:52 16:14 22:45 WBC RBC Hgb Hct MCV MCH MCHC RDW Plt Count Seg Neuts % (Manual) Lymphocytes % (Manual) Monocytes % (Manual) Nucleated RBC % Seg Neutrophils # Man Lymphocytes # (Manual) PT INR APTT D-Dimer ABG pH POC ABG pCO2 POC ABG pO2 ABG pO2 ABG HCO3 ABG O2 Saturation ABG Base Excess ABG Hemoglobin ABG Oxyhemoglobin ABG Sodium ABG Potassium ABG Chloride ABG Glucose VBG pH Carboxyhemoglobin Sodium Potassium Chloride 108.2 H Carbon Dioxide BUN 32 H Creatinine 1.4 H Glucose POC Glucose 111 H 107 H Lactic Acid Calcium 7.8 L Phosphorus Magnesium Ferritin AST 55 H ALT Ammonia Lactate Dehydrogenase Troponin T C-Reactive Protein Total Protein 5.6 L Albumin 1.9 L Triglycerides LDL Cholesterol Direct HDL Cholesterol Arterial Blood Glucose Arterial Blood Ionized Calcium Urine WBC (Auto) Urine Creatinine Vancomycin Trough Crossmatch 06/11/21 06/11/21 06/11/21 05:51 05:51 05:51 WBC RBC 3.35 L Hgb 9.1 L Hct 28.1 L MCV MCH 27 L MCHC RDW Plt Count 117 L Seg Neuts % (Manual) 93.0 H Lymphocytes % (Manual) 1.0 L Monocytes % (Manual) Nucleated RBC % Seg Neutrophils # Man Lymphocytes # (Manual) 0.0 L PT INR APTT D-Dimer ABG pH POC ABG pCO2 POC ABG pO2 ABG pO2 ABG HCO3 ABG O2 Saturation ABG Base Excess ABG Hemoglobin ABG Oxyhemoglobin ABG Sodium ABG Potassium ABG Chloride ABG Glucose VBG pH Carboxyhemoglobin Sodium 146 H Potassium Chloride 110.9 H Carbon Dioxide BUN 40 H Creatinine Glucose 119 H POC Glucose Lactic Acid Calcium 7.8 L Phosphorus Magnesium Ferritin AST ALT Ammonia Lactate Dehydrogenase Troponin T C-Reactive Protein Total Protein Albumin Triglycerides LDL Cholesterol Direct HDL Cholesterol Arterial Blood Glucose Arterial Blood Ionized Calcium Urine WBC (Auto) Urine Creatinine Vancomycin Trough 22.6 H Crossmatch 06/11/21 06/11/21 06/11/21 08:28 11:36 15:47 WBC RBC Hgb Hct MCV MCH MCHC RDW Plt Count Seg Neuts % (Manual) Lymphocytes % (Manual) Monocytes % (Manual) Nucleated RBC % Seg Neutrophils # Man Lymphocytes # (Manual) PT INR APTT D-Dimer ABG pH POC ABG pCO2 POC ABG pO2 ABG pO2 ABG HCO3 ABG O2 Saturation ABG Base Excess ABG Hemoglobin ABG Oxyhemoglobin ABG Sodium ABG Potassium ABG Chloride ABG Glucose VBG pH Carboxyhemoglobin Sodium Potassium Chloride Carbon Dioxide BUN Creatinine Glucose POC Glucose 109 H 149 H 139 H Lactic Acid Calcium Phosphorus Magnesium Ferritin AST ALT Ammonia Lactate Dehydrogenase Troponin T C-Reactive Protein Total Protein Albumin Triglycerides LDL Cholesterol Direct HDL Cholesterol Arterial Blood Glucose Arterial Blood Ionized Calcium Urine WBC (Auto) Urine Creatinine Vancomycin Trough Crossmatch 06/11/21 06/12/21 06/12/21 21:42 04:00 04:00 WBC 4.0 L RBC 3.50 L Hgb 9.4 L Hct 29.9 L MCV MCH 27 L MCHC 31 L RDW 15.3 H Plt Count 126 L Seg Neuts % (Manual) 88.0 H Lymphocytes % (Manual) Monocytes % (Manual) 12.0 H Nucleated RBC % Seg Neutrophils # Man Lymphocytes # (Manual) 0.0 L PT INR APTT D-Dimer ABG pH POC ABG pCO2 POC ABG pO2 ABG pO2 ABG HCO3 ABG O2 Saturation ABG Base Excess ABG Hemoglobin ABG Oxyhemoglobin ABG Sodium ABG Potassium ABG Chloride ABG Glucose VBG pH Carboxyhemoglobin Sodium 149 H Potassium Chloride 114.1 H Carbon Dioxide BUN 37 H Creatinine Glucose 137 H POC Glucose 124 H Lactic Acid Calcium 8.0 L Phosphorus Magnesium Ferritin AST ALT Ammonia Lactate Dehydrogenase Troponin T C-Reactive Protein Total Protein Albumin Triglycerides LDL Cholesterol Direct HDL Cholesterol Arterial Blood Glucose Arterial Blood Ionized Calcium Urine WBC (Auto) Urine Creatinine Vancomycin Trough Crossmatch 06/12/21 06/13/21 06/13/21 06:37 00:14 06:05 WBC 4.3 L RBC 3.39 L Hgb 9.2 L Hct 28.6 L MCV MCH 27 L MCHC RDW 15.3 H Plt Count 107 L Seg Neuts % (Manual) 77.0 H Lymphocytes % (Manual) 1.0 L Monocytes % (Manual) Nucleated RBC % 1.0 H Seg Neutrophils # Man Lymphocytes # (Manual) 0.0 L PT INR APTT D-Dimer ABG pH POC ABG pCO2 POC ABG pO2 ABG pO2 ABG HCO3 ABG O2 Saturation ABG Base Excess ABG Hemoglobin ABG Oxyhemoglobin ABG Sodium ABG Potassium ABG Chloride ABG Glucose VBG pH Carboxyhemoglobin Sodium Potassium Chloride Carbon Dioxide BUN Creatinine Glucose POC Glucose 128 H 149 H Lactic Acid Calcium Phosphorus Magnesium Ferritin AST ALT Ammonia Lactate Dehydrogenase Troponin T C-Reactive Protein Total Protein Albumin Triglycerides LDL Cholesterol Direct HDL Cholesterol Arterial Blood Glucose Arterial Blood Ionized Calcium Urine WBC (Auto) Urine Creatinine Vancomycin Trough Crossmatch 06/13/21 06/13/21 06/14/21 06:05 11:51 04:29 WBC 4.2 L RBC 3.21 L Hgb 8.7 L Hct 26.7 L MCV 83 L MCH 27 L MCHC RDW 15.3 H Plt Count 87 L Seg Neuts % (Manual) 96 H Lymphocytes % (Manual) 2 L Monocytes % (Manual) Nucleated RBC % Seg Neutrophils # Man Lymphocytes # (Manual) 0.0 L PT INR APTT D-Dimer ABG pH POC ABG pCO2 POC ABG pO2 48.3 L ABG pO2 ABG HCO3 ABG O2 Saturation ABG Base Excess ABG Hemoglobin 10.7 L ABG Oxyhemoglobin 84.1 L ABG Sodium 145.5 H ABG Potassium ABG Chloride 116.0 H ABG Glucose VBG pH Carboxyhemoglobin Sodium 146 H Potassium 3.5 L Chloride 112.3 H Carbon Dioxide BUN 38 H Creatinine Glucose 112 H POC Glucose Lactic Acid Calcium 8.1 L Phosphorus Magnesium Ferritin AST ALT Ammonia Lactate Dehydrogenase Troponin T C-Reactive Protein Total Protein Albumin Triglycerides LDL Cholesterol Direct HDL Cholesterol Arterial Blood Glucose Arterial Blood Ionized Calcium Urine WBC (Auto) Urine Creatinine Vancomycin Trough Crossmatch 06/14/21 06/14/21 06/14/21 04:29 06:17 23:51 WBC RBC Hgb Hct MCV MCH MCHC RDW Plt Count Seg Neuts % (Manual) Lymphocytes % (Manual) Monocytes % (Manual) Nucleated RBC % Seg Neutrophils # Man Lymphocytes # (Manual) PT INR APTT D-Dimer ABG pH POC ABG pCO2 POC ABG pO2 ABG pO2 ABG HCO3 ABG O2 Saturation ABG Base Excess ABG Hemoglobin ABG Oxyhemoglobin ABG Sodium ABG Potassium ABG Chloride ABG Glucose VBG pH Carboxyhemoglobin Sodium 148 H Potassium Chloride 115.3 H Carbon Dioxide BUN 40 H Creatinine Glucose 124 H POC Glucose 106 H 135 H Lactic Acid Calcium 8.2 L Phosphorus Magnesium Ferritin AST ALT Ammonia Lactate Dehydrogenase Troponin T C-Reactive Protein Total Protein Albumin Triglycerides LDL Cholesterol Direct HDL Cholesterol Arterial Blood Glucose Arterial Blood Ionized Calcium Urine WBC (Auto) Urine Creatinine Vancomycin Trough Crossmatch 06/15/21 06/15/21 06/15/21 05:23 05:53 05:53 WBC 3.8 L RBC 2.94 L Hgb 8.0 L Hct 24.0 L MCV 81 L MCH 27 L MCHC RDW 15.6 H Plt Count 87 L Seg Neuts % (Manual) 95.0 H Lymphocytes % (Manual) 1.0 L Monocytes % (Manual) Nucleated RBC % 1.0 H Seg Neutrophils # Man Lymphocytes # (Manual) 0.0 L PT INR APTT D-Dimer ABG pH POC ABG pCO2 POC ABG pO2 ABG pO2 ABG HCO3 ABG O2 Saturation ABG Base Excess ABG Hemoglobin ABG Oxyhemoglobin ABG Sodium ABG Potassium ABG Chloride ABG Glucose VBG pH Carboxyhemoglobin Sodium Potassium Chloride 110.5 H Carbon Dioxide BUN 43 H Creatinine Glucose 143 H POC Glucose 134 H Lactic Acid Calcium 8.1 L Phosphorus 2.10 L D Magnesium Ferritin AST ALT Ammonia Lactate Dehydrogenase Troponin T C-Reactive Protein Total Protein Albumin Triglycerides LDL Cholesterol Direct HDL Cholesterol Arterial Blood Glucose Arterial Blood Ionized Calcium Urine WBC (Auto) Urine Creatinine Vancomycin Trough Crossmatch 06/16/21 06/16/21 06/16/21 05:22 05:59 05:59 WBC 3.4 L RBC 3.34 L Hgb 9.0 L Hct 27.9 L MCV MCH 27 L MCHC RDW 15.5 H Plt Count 72 L Seg Neuts % (Manual) 97.0 H Lymphocytes % (Manual) Monocytes % (Manual) Nucleated RBC % Seg Neutrophils # Man Lymphocytes # (Manual) 0.0 L PT INR APTT D-Dimer ABG pH POC ABG pCO2 POC ABG pO2 ABG pO2 ABG HCO3 ABG O2 Saturation ABG Base Excess ABG Hemoglobin ABG Oxyhemoglobin ABG Sodium ABG Potassium ABG Chloride ABG Glucose VBG pH Carboxyhemoglobin Sodium Potassium Chloride 108.8 H Carbon Dioxide BUN 53 H Creatinine 1.4 H Glucose 160 H POC Glucose 141 H Lactic Acid Calcium 8.1 L Phosphorus Magnesium Ferritin AST ALT Ammonia Lactate Dehydrogenase Troponin T C-Reactive Protein Total Protein Albumin Triglycerides LDL Cholesterol Direct HDL Cholesterol Arterial Blood Glucose Arterial Blood Ionized Calcium Urine WBC (Auto) Urine Creatinine Vancomycin Trough Crossmatch 06/16/21 06/16/21 06/17/21 11:31 17:08 06:25 WBC 4.4 L RBC 3.14 L Hgb 8.5 L Hct 25.7 L MCV 82 L MCH 27 L MCHC RDW 15.7 H Plt Count 64 L Seg Neuts % (Manual) 95.0 H Lymphocytes % (Manual) Monocytes % (Manual) Nucleated RBC % Seg Neutrophils # Man Lymphocytes # (Manual) 0.0 L PT INR APTT D-Dimer ABG pH POC ABG pCO2 POC ABG pO2 ABG pO2 ABG HCO3 ABG O2 Saturation ABG Base Excess ABG Hemoglobin ABG Oxyhemoglobin ABG Sodium ABG Potassium ABG Chloride ABG Glucose VBG pH Carboxyhemoglobin Sodium Potassium Chloride Carbon Dioxide BUN Creatinine Glucose POC Glucose 129 H 136 H Lactic Acid Calcium Phosphorus Magnesium Ferritin AST ALT Ammonia Lactate Dehydrogenase Troponin T C-Reactive Protein Total Protein Albumin Triglycerides LDL Cholesterol Direct HDL Cholesterol Arterial Blood Glucose Arterial Blood Ionized Calcium Urine WBC (Auto) Urine Creatinine Vancomycin Trough Crossmatch 06/17/21 06/17/21 06/17/21 06:25 18:19 18:38 WBC RBC Hgb Hct MCV MCH MCHC RDW Plt Count Seg Neuts % (Manual) Lymphocytes % (Manual) Monocytes % (Manual) Nucleated RBC % Seg Neutrophils # Man Lymphocytes # (Manual) PT INR APTT D-Dimer ABG pH 7.184 L POC ABG pCO2 65.8 H POC ABG pO2 130.5 H ABG pO2 ABG HCO3 ABG O2 Saturation ABG Base Excess ABG Hemoglobin 10.2 L ABG Oxyhemoglobin ABG Sodium ABG Potassium ABG Chloride 108.0 H ABG Glucose 229 H VBG pH Carboxyhemoglobin Sodium Potassium Chloride Carbon Dioxide BUN 62 H Creatinine Glucose 135 H POC Glucose 206 H Lactic Acid Calcium 7.8 L Phosphorus Magnesium Ferritin AST ALT Ammonia Lactate Dehydrogenase Troponin T C-Reactive Protein Total Protein Albumin Triglycerides LDL Cholesterol Direct HDL Cholesterol Arterial Blood Glucose 229 H Arterial Blood Ionized Calcium Urine WBC (Auto) Urine Creatinine Vancomycin Trough Crossmatch 06/18/21 06/18/21 06/18/21 00:29 05:15 10:56 WBC RBC Hgb Hct MCV MCH MCHC RDW Plt Count Seg Neuts % (Manual) Lymphocytes % (Manual) Monocytes % (Manual) Nucleated RBC % Seg Neutrophils # Man Lymphocytes # (Manual) PT INR APTT D-Dimer ABG pH POC ABG pCO2 POC ABG pO2 ABG pO2 ABG HCO3 ABG O2 Saturation ABG Base Excess ABG Hemoglobin ABG Oxyhemoglobin ABG Sodium ABG Potassium ABG Chloride ABG Glucose VBG pH Carboxyhemoglobin Sodium Potassium Chloride Carbon Dioxide BUN Creatinine Glucose POC Glucose 142 H 152 H Lactic Acid Calcium Phosphorus 5.60 H D Magnesium Ferritin AST ALT Ammonia Lactate Dehydrogenase Troponin T C-Reactive Protein Total Protein Albumin Triglycerides LDL Cholesterol Direct HDL Cholesterol Arterial Blood Glucose Arterial Blood Ionized Calcium Urine WBC (Auto) Urine Creatinine Vancomycin Trough Crossmatch 06/18/21 06/18/21 06/18/21 15:02 15:02 15:02 WBC 4.4 L RBC 3.39 L Hgb 9.7 L Hct 28.4 L MCV MCH MCHC RDW 16.3 H Plt Count 65 L Seg Neuts % (Manual) Lymphocytes % (Manual) Monocytes % (Manual) Nucleated RBC % Seg Neutrophils # Man Lymphocytes # (Manual) PT 15.6 H INR APTT 41.2 H D-Dimer ABG pH POC ABG pCO2 POC ABG pO2 ABG pO2 ABG HCO3 ABG O2 Saturation ABG Base Excess ABG Hemoglobin ABG Oxyhemoglobin ABG Sodium ABG Potassium ABG Chloride ABG Glucose VBG pH Carboxyhemoglobin Sodium Potassium Chloride Carbon Dioxide BUN Creatinine 2.0 H Glucose POC Glucose Lactic Acid Calcium Phosphorus Magnesium Ferritin AST ALT Ammonia Lactate Dehydrogenase Troponin T C-Reactive Protein Total Protein Albumin Triglycerides LDL Cholesterol Direct HDL Cholesterol Arterial Blood Glucose Arterial Blood Ionized Calcium Urine WBC (Auto) Urine Creatinine Vancomycin Trough Crossmatch 06/18/21 06/18/21 06/18/21 Unknown Unknown Unknown WBC 4.0 L RBC 2.72 L Hgb 8.0 L Hct 24.0 L MCV MCH MCHC RDW 17.2 H Plt Count 60 L Seg Neuts % (Manual) Lymphocytes % (Manual) Monocytes % (Manual) Nucleated RBC % Seg Neutrophils # Man Lymphocytes # (Manual) PT INR APTT D-Dimer ABG pH POC ABG pCO2 POC ABG pO2 ABG pO2 ABG HCO3 ABG O2 Saturation ABG Base Excess ABG Hemoglobin ABG Oxyhemoglobin ABG Sodium ABG Potassium ABG Chloride ABG Glucose VBG pH Carboxyhemoglobin Sodium 134 L D Potassium 6.0 H D Chloride Carbon Dioxide BUN 80 H Creatinine 1.8 H Glucose 395 H POC Glucose Lactic Acid Calcium 6.9 L Phosphorus Magnesium Ferritin AST < 5 L ALT < 5 L Ammonia Lactate Dehydrogenase Troponin T C-Reactive Protein Total Protein 4.9 L Albumin 1.4 L Triglycerides LDL Cholesterol Direct HDL Cholesterol Arterial Blood Glucose Arterial Blood Ionized Calcium Urine WBC (Auto) 10.0 H Urine Creatinine Vancomycin Trough Crossmatch 06/19/21 06/19/21 06/19/21 02:41 04:53 05:37 WBC RBC Hgb Hct MCV MCH MCHC RDW Plt Count Seg Neuts % (Manual) Lymphocytes % (Manual) Monocytes % (Manual) Nucleated RBC % Seg Neutrophils # Man Lymphocytes # (Manual) PT INR APTT D-Dimer ABG pH 7.270 L POC ABG pCO2 49.0 H POC ABG pO2 ABG pO2 ABG HCO3 ABG O2 Saturation ABG Base Excess ABG Hemoglobin 8.8 L ABG Oxyhemoglobin ABG Sodium ABG Potassium ABG Chloride 111.0 H ABG Glucose 110 H VBG pH Carboxyhemoglobin Sodium Potassium Chloride Carbon Dioxide BUN 92 H Creatinine 3.2 H D Glucose 123 H POC Glucose 114 H Lactic Acid Calcium 7.4 L Phosphorus Magnesium Ferritin AST ALT Ammonia Lactate Dehydrogenase Troponin T C-Reactive Protein Total Protein Albumin Triglycerides LDL Cholesterol Direct HDL Cholesterol Arterial Blood Glucose 110 H Arterial Blood Ionized Calcium Urine WBC (Auto) Urine Creatinine Vancomycin Trough Crossmatch 06/19/21 06/19/21 06/19/21 08:55 09:37 09:41 WBC RBC 2.91 L Hgb 7.9 L Hct 24.4 L MCV MCH 27 L MCHC RDW 16.5 H Plt Count 64 L Seg Neuts % (Manual) Lymphocytes % (Manual) Monocytes % (Manual) Nucleated RBC % Seg Neutrophils # Man Lymphocytes # (Manual) PT 19.2 H INR 1.46 H APTT 54.3 H D-Dimer ABG pH POC ABG pCO2 POC ABG pO2 ABG pO2 ABG HCO3 ABG O2 Saturation ABG Base Excess ABG Hemoglobin ABG Oxyhemoglobin ABG Sodium ABG Potassium ABG Chloride ABG Glucose VBG pH Carboxyhemoglobin Sodium 146 H Potassium Chloride Carbon Dioxide BUN Creatinine 3.5 H Glucose POC Glucose Lactic Acid Calcium Phosphorus Magnesium Ferritin AST ALT Ammonia Lactate Dehydrogenase Troponin T C-Reactive Protein Total Protein Albumin Triglycerides LDL Cholesterol Direct HDL Cholesterol Arterial Blood Glucose Arterial Blood Ionized Calcium Urine WBC (Auto) Urine Creatinine Vancomycin Trough Crossmatch 06/19/21 06/19/21 06/19/21 11:14 12:19 16:15 WBC RBC Hgb Hct MCV MCH MCHC RDW Plt Count Seg Neuts % (Manual) Lymphocytes % (Manual) Monocytes % (Manual) Nucleated RBC % Seg Neutrophils # Man Lymphocytes # (Manual) PT INR APTT D-Dimer ABG pH POC ABG pCO2 POC ABG pO2 ABG pO2 ABG HCO3 ABG O2 Saturation ABG Base Excess ABG Hemoglobin ABG Oxyhemoglobin ABG Sodium ABG Potassium ABG Chloride ABG Glucose VBG pH Carboxyhemoglobin Sodium Potassium Chloride Carbon Dioxide BUN Creatinine Glucose POC Glucose Lactic Acid Calcium Phosphorus Magnesium Ferritin AST ALT Ammonia Lactate Dehydrogenase Troponin T 0.109 H* C-Reactive Protein 11.50 H Total Protein Albumin Triglycerides 295 H LDL Cholesterol Direct 24 L HDL Cholesterol 17 L Arterial Blood Glucose Arterial Blood Ionized Calcium Urine WBC (Auto) Urine Creatinine 49.9 H Vancomycin Trough Crossmatch 06/19/21 06/19/21 06/20/21 18:05 22:40 05:00 WBC 4.1 L RBC 2.66 L Hgb 7.3 L Hct 22.5 L MCV MCH MCHC RDW 16.9 H Plt Count 60 L Seg Neuts % (Manual) Lymphocytes % (Manual) Monocytes % (Manual) Nucleated RBC % Seg Neutrophils # Man Lymphocytes # (Manual) PT INR APTT D-Dimer ABG pH POC ABG pCO2 POC ABG pO2 ABG pO2 ABG HCO3 ABG O2 Saturation ABG Base Excess ABG Hemoglobin ABG Oxyhemoglobin ABG Sodium ABG Potassium ABG Chloride ABG Glucose VBG pH Carboxyhemoglobin Sodium Potassium Chloride Carbon Dioxide BUN Creatinine Glucose POC Glucose 131 H 121 H Lactic Acid Calcium Phosphorus Magnesium Ferritin AST ALT Ammonia Lactate Dehydrogenase Troponin T C-Reactive Protein Total Protein Albumin Triglycerides LDL Cholesterol Direct HDL Cholesterol Arterial Blood Glucose Arterial Blood Ionized Calcium Urine WBC (Auto) Urine Creatinine Vancomycin Trough Crossmatch 06/20/21 06/20/21 06/20/21 05:00 05:00 05:17 WBC RBC Hgb Hct MCV MCH MCHC RDW Plt Count Seg Neuts % (Manual) Lymphocytes % (Manual) Monocytes % (Manual) Nucleated RBC % Seg Neutrophils # Man Lymphocytes # (Manual) PT INR APTT D-Dimer ABG pH POC ABG pCO2 POC ABG pO2 ABG pO2 ABG HCO3 ABG O2 Saturation ABG Base Excess ABG Hemoglobin ABG Oxyhemoglobin ABG Sodium ABG Potassium ABG Chloride ABG Glucose VBG pH Carboxyhemoglobin Sodium Potassium Chloride 111.6 H Carbon Dioxide 20 L BUN 108 H Creatinine 4.3 H Glucose 152 H POC Glucose 137 H Lactic Acid Calcium 7.1 L Phosphorus Magnesium Ferritin AST ALT Ammonia Lactate Dehydrogenase Troponin T 0.105 H* C-Reactive Protein Total Protein Albumin Triglycerides LDL Cholesterol Direct HDL Cholesterol Arterial Blood Glucose Arterial Blood Ionized Calcium Urine WBC (Auto) Urine Creatinine Vancomycin Trough Crossmatch 06/20/21 06/20/21 06/20/21 11:40 12:35 13:26 WBC RBC Hgb Hct MCV MCH MCHC RDW Plt Count Seg Neuts % (Manual) Lymphocytes % (Manual) Monocytes % (Manual) Nucleated RBC % Seg Neutrophils # Man Lymphocytes # (Manual) PT INR APTT D-Dimer ABG pH 6.994 L POC ABG pCO2 70.2 H POC ABG pO2 ABG pO2 ABG HCO3 ABG O2 Saturation ABG Base Excess ABG Hemoglobin 8.1 L ABG Oxyhemoglobin ABG Sodium ABG Potassium ABG Chloride 111.0 H ABG Glucose 207 H VBG pH Carboxyhemoglobin Sodium Potassium Chloride Carbon Dioxide BUN Creatinine Glucose POC Glucose 186 H Lactic Acid Calcium Phosphorus Magnesium Ferritin AST ALT Ammonia Lactate Dehydrogenase Troponin T C-Reactive Protein Total Protein Albumin Triglycerides LDL Cholesterol Direct HDL Cholesterol Arterial Blood Glucose 207 H Arterial Blood Ionized Calcium Urine WBC (Auto) 46.0 H Urine Creatinine Vancomycin Trough Crossmatch 06/20/21 06/20/21 06/20/21 13:54 13:54 17:38 WBC RBC 2.26 L Hgb 6.1 L Hct 19.6 L* MCV MCH 27 L MCHC RDW 17.6 H Plt Count 65 L Seg Neuts % (Manual) Lymphocytes % (Manual) Monocytes % (Manual) Nucleated RBC % Seg Neutrophils # Man Lymphocytes # (Manual) PT INR APTT D-Dimer ABG pH POC ABG pCO2 POC ABG pO2 ABG pO2 ABG HCO3 ABG O2 Saturation ABG Base Excess ABG Hemoglobin ABG Oxyhemoglobin ABG Sodium ABG Potassium ABG Chloride ABG Glucose VBG pH Carboxyhemoglobin Sodium 147 H Potassium 3.0 L D Chloride Carbon Dioxide 33 H D BUN 90 H Creatinine 3.3 H Glucose 771 H* POC Glucose 198 H Lactic Acid Calcium 5.3 L* D Phosphorus Magnesium Ferritin AST 41 H ALT Ammonia Lactate Dehydrogenase Troponin T C-Reactive Protein Total Protein 3.5 L D Albumin 1.0 L Triglycerides LDL Cholesterol Direct HDL Cholesterol Arterial Blood Glucose Arterial Blood Ionized Calcium Urine WBC (Auto) Urine Creatinine Vancomycin Trough Crossmatch 06/20/21 06/20/21 06/20/21 18:00 18:09 22:38 WBC RBC Hgb Hct MCV MCH MCHC RDW Plt Count Seg Neuts % (Manual) Lymphocytes % (Manual) Monocytes % (Manual) Nucleated RBC % Seg Neutrophils # Man Lymphocytes # (Manual) PT INR APTT D-Dimer ABG pH 7.189 L* POC ABG pCO2 POC ABG pO2 ABG pO2 209.0 H ABG HCO3 26.1 H ABG O2 Saturation 99.1 H ABG Base Excess -2.3 L ABG Hemoglobin 7.4 L ABG Oxyhemoglobin ABG Sodium ABG Potassium ABG Chloride ABG Glucose VBG pH Carboxyhemoglobin Sodium Potassium Chloride Carbon Dioxide BUN Creatinine Glucose POC Glucose 151 H Lactic Acid Calcium Phosphorus Magnesium Ferritin AST ALT Ammonia Lactate Dehydrogenase Troponin T C-Reactive Protein Total Protein Albumin Triglycerides LDL Cholesterol Direct HDL Cholesterol Arterial Blood Glucose Arterial Blood Ionized Calcium Urine WBC (Auto) Urine Creatinine Vancomycin Trough Crossmatch See Detail 06/20/21 06/21/21 06/21/21 23:12 04:21 05:36 WBC RBC Hgb Hct MCV MCH MCHC RDW Plt Count Seg Neuts % (Manual) Lymphocytes % (Manual) Monocytes % (Manual) Nucleated RBC % Seg Neutrophils # Man Lymphocytes # (Manual) PT INR APTT D-Dimer ABG pH 7.31 L POC ABG pCO2 55.4 H POC ABG pO2 156.5 H ABG pO2 ABG HCO3 ABG O2 Saturation ABG Base Excess ABG Hemoglobin 9.0 L ABG Oxyhemoglobin ABG Sodium ABG Potassium 3.3 L ABG Chloride ABG Glucose VBG pH Carboxyhemoglobin Sodium Potassium Chloride Carbon Dioxide BUN Creatinine Glucose POC Glucose 184 H 128 H Lactic Acid Calcium Phosphorus Magnesium Ferritin AST ALT Ammonia Lactate Dehydrogenase Troponin T C-Reactive Protein Total Protein Albumin Triglycerides LDL Cholesterol Direct HDL Cholesterol Arterial Blood Glucose Arterial Blood Ionized Calcium Urine WBC (Auto) Urine Creatinine Vancomycin Trough Crossmatch 06/21/21 06/21/21 06/21/21 07:45 07:45 07:45 WBC 3.3 L RBC 3.08 L Hgb 8.7 L Hct 25.6 L D MCV 83 L MCH MCHC RDW 16.2 H Plt Count 49 L Seg Neuts % (Manual) Lymphocytes % (Manual) Monocytes % (Manual) Nucleated RBC % Seg Neutrophils # Man Lymphocytes # (Manual) PT INR APTT D-Dimer ABG pH POC ABG pCO2 POC ABG pO2 ABG pO2 ABG HCO3 ABG O2 Saturation ABG Base Excess ABG Hemoglobin ABG Oxyhemoglobin ABG Sodium ABG Potassium ABG Chloride ABG Glucose VBG pH Carboxyhemoglobin Sodium Potassium 3.5 L 3.5 L Chloride 108.0 H 107.4 H Carbon Dioxide BUN 86 H 84 H Creatinine 3.5 H 3.4 H Glucose 157 H 158 H POC Glucose Lactic Acid Calcium 7.4 L D 7.6 L Phosphorus Magnesium Ferritin AST 51 H ALT Ammonia Lactate Dehydrogenase Troponin T C-Reactive Protein Total Protein 3.9 L Albumin 1.3 L Triglycerides LDL Cholesterol Direct HDL Cholesterol Arterial Blood Glucose Arterial Blood Ionized Calcium Urine WBC (Auto) Urine Creatinine Vancomycin Trough Crossmatch 06/21/21 06/21/21 06/21/21 11:46 17:28 23:46 WBC RBC Hgb Hct MCV MCH MCHC RDW Plt Count Seg Neuts % (Manual) Lymphocytes % (Manual) Monocytes % (Manual) Nucleated RBC % Seg Neutrophils # Man Lymphocytes # (Manual) PT INR APTT D-Dimer ABG pH POC ABG pCO2 POC ABG pO2 ABG pO2 ABG HCO3 ABG O2 Saturation ABG Base Excess ABG Hemoglobin ABG Oxyhemoglobin ABG Sodium ABG Potassium ABG Chloride ABG Glucose VBG pH Carboxyhemoglobin Sodium Potassium Chloride Carbon Dioxide BUN Creatinine Glucose POC Glucose 130 H 111 H 109 H Lactic Acid Calcium Phosphorus Magnesium Ferritin AST ALT Ammonia Lactate Dehydrogenase Troponin T C-Reactive Protein Total Protein Albumin Triglycerides LDL Cholesterol Direct HDL Cholesterol Arterial Blood Glucose Arterial Blood Ionized Calcium Urine WBC (Auto) Urine Creatinine Vancomycin Trough Crossmatch 06/22/21 06/22/21 06/22/21 04:57 04:57 09:42 WBC 2.8 L RBC 2.86 L Hgb 8.2 L Hct 24.1 L MCV MCH MCHC RDW 16.2 H Plt Count 27 L Seg Neuts % (Manual) Lymphocytes % (Manual) Monocytes % (Manual) Nucleated RBC % Seg Neutrophils # Man Lymphocytes # (Manual) PT INR APTT D-Dimer ABG pH 7.249 L POC ABG pCO2 62.9 H POC ABG pO2 74.4 L ABG pO2 ABG HCO3 ABG O2 Saturation ABG Base Excess ABG Hemoglobin 8.4 L ABG Oxyhemoglobin 92.3 L ABG Sodium 134.4 L ABG Potassium 3.2 L ABG Chloride ABG Glucose 116 H VBG pH Carboxyhemoglobin Sodium 136 L D Potassium Chloride Carbon Dioxide BUN 61 H Creatinine 3.2 H Glucose 115 H POC Glucose Lactic Acid Calcium 7.4 L Phosphorus Magnesium Ferritin AST ALT Ammonia Lactate Dehydrogenase Troponin T C-Reactive Protein Total Protein Albumin Triglycerides LDL Cholesterol Direct HDL Cholesterol Arterial Blood Glucose 116 H Arterial Blood Ionized Calcium Urine WBC (Auto) Urine Creatinine Vancomycin Trough Crossmatch 06/22/21 06/23/21 06/23/21 11:03 04:40 04:40 WBC 2.5 L RBC 2.74 L Hgb 7.9 L Hct 23.1 L MCV MCH MCHC RDW 16.5 H Plt Count 28 L Seg Neuts % (Manual) Lymphocytes % (Manual) Monocytes % (Manual) Nucleated RBC % Seg Neutrophils # Man Lymphocytes # (Manual) PT INR APTT D-Dimer ABG pH POC ABG pCO2 POC ABG pO2 ABG pO2 ABG HCO3 ABG O2 Saturation ABG Base Excess ABG Hemoglobin ABG Oxyhemoglobin ABG Sodium ABG Potassium ABG Chloride ABG Glucose VBG pH Carboxyhemoglobin Sodium Potassium Chloride Carbon Dioxide BUN 77 H Creatinine 4.1 H Glucose POC Glucose 106 H Lactic Acid Calcium 7.3 L Phosphorus Magnesium Ferritin AST ALT Ammonia Lactate Dehydrogenase Troponin T C-Reactive Protein Total Protein Albumin Triglycerides LDL Cholesterol Direct HDL Cholesterol Arterial Blood Glucose Arterial Blood Ionized Calcium Urine WBC (Auto) Urine Creatinine Vancomycin Trough Crossmatch 06/23/21 06/23/21 04:40 12:25 WBC RBC Hgb Hct MCV MCH MCHC RDW Plt Count Seg Neuts % (Manual) Lymphocytes % (Manual) Monocytes % (Manual) Nucleated RBC % Seg Neutrophils # Man Lymphocytes # (Manual) PT INR APTT D-Dimer ABG pH 7.204 L POC ABG pCO2 63.9 H POC ABG pO2 68.2 L ABG pO2 ABG HCO3 ABG O2 Saturation ABG Base Excess ABG Hemoglobin 7.8 L ABG Oxyhemoglobin 88.8 L ABG Sodium 132.0 L ABG Potassium ABG Chloride ABG Glucose 100 H VBG pH Carboxyhemoglobin Sodium Potassium Chloride Carbon Dioxide BUN Creatinine Glucose POC Glucose 120 H Lactic Acid Calcium Phosphorus Magnesium Ferritin AST ALT Ammonia Lactate Dehydrogenase Troponin T C-Reactive Protein Total Protein Albumin Triglycerides LDL Cholesterol Direct HDL Cholesterol Arterial Blood Glucose 100 H Arterial Blood Ionized Calcium Urine WBC (Auto) Urine Creatinine Vancomycin Trough Crossmatch Chest x-ray: image reviewed Allied health notes reviewed: nursing
--- NOTE | 2021-06-23 18:16 | Progress Note ---
Assessment and Plan Impression: * Acute kidney injury secondary to ATN likely related to COVID 19 * Acute hypoxic respiratory failure secondary to COVID 19 PNA * Azotemia * Hyperkalemia * Metabolic acidosis * Hypernatremia Plan: * Plan for HD today, gentle sessions with goal UF 1-2 L as tolerated with close monitoring of hemodynamic status * Vasculitis work-up negative, including ANCA as well as complement levels. * Keep MAP>65 * Management of COVID 19 PNA to primary team/ID * Dose medications for renal function * Renal diet * follow up lytes prn * ANGELES most likely secondary to ATN. No evidence of renal recovery at this time. * Prognosis guarded Subjective Date of service: 06/23/21 Principal diagnosis: Acute hypoxemic resp failure; Pneumonia; PUI COVID-19 infection Interval history: Remains on ventilator and Levophed Objective - Exam Narrative Exam: General: Sedated. Intubated. HEENT: Oral mucosa moist Neck: Supple, no JVD Chest: Intubated. Mechanical breath sounds. Heart: RRR, S1 and S2, no pericardial rub Abdomen: Soft, nontender, no renal bruit Extremity: No peripheral cyanosis, edema Neurological: Sedated. Dermatology: No skin rash Psych: No agitation Musculoskeletal: No joint effusion - Vital Signs Vital signs: Vital Signs - 12hr 06/23/21 06/23/21 06/23/21 06:15 06:31 06:45 Temperature Pulse Rate 132 H 129 H 131 H Pulse Rate [ Anterior Bilateral Throughout] Pulse Rate [ From Monitor] Respiratory 30 H 30 H 28 H Rate Respiratory Rate [Anterior Bilateral Throughout] Blood Pressure 104/47 76/25 93/51 O2 Sat by Pulse 88 87 86 Oximetry 06/23/21 06/23/21 06/23/21 07:00 07:15 07:30 Temperature Pulse Rate 133 H 134 H 133 H Pulse Rate [ Anterior Bilateral Throughout] Pulse Rate [ From Monitor] Respiratory 31 H 28 H 30 H Rate Respiratory Rate [Anterior Bilateral Throughout] Blood Pressure 107/53 94/44 97/46 O2 Sat by Pulse 86 86 91 Oximetry 06/23/21 06/23/21 06/23/21 07:45 07:55 08:00 Temperature 102.7 F H Pulse Rate 133 H 133 H 133 H Pulse Rate [ 132 H Anterior Bilateral Throughout] Pulse Rate [ 133 H From Monitor] Respiratory 30 H 30 H Rate Respiratory 30 H Rate [Anterior Bilateral Throughout] Blood Pressure 98/46 98/46 97/47 O2 Sat by Pulse 94 97 89 Oximetry 06/23/21 06/23/21 06/23/21 08:15 08:30 08:45 Temperature Pulse Rate 132 H 129 H 135 H Pulse Rate [ Anterior Bilateral Throughout] Pulse Rate [ From Monitor] Respiratory 30 H 30 H 30 H Rate Respiratory Rate [Anterior Bilateral Throughout] Blood Pressure 97/49 106/49 113/57 O2 Sat by Pulse 99 94 88 Oximetry 06/23/21 06/23/21 06/23/21 09:00 09:15 09:30 Temperature Pulse Rate 132 H 131 H 129 H Pulse Rate [ Anterior Bilateral Throughout] Pulse Rate [ From Monitor] Respiratory 20 30 H 30 H Rate Respiratory Rate [Anterior Bilateral Throughout] Blood Pressure 99/55 98/50 99/52 O2 Sat by Pulse 89 91 92 Oximetry 06/23/21 06/23/21 06/23/21 09:45 10:00 10:10 Temperature Pulse Rate 128 H 127 H Pulse Rate [ Anterior Bilateral Throughout] Pulse Rate [ From Monitor] Respiratory 30 H 30 H 30 H Rate Respiratory Rate [Anterior Bilateral Throughout] Blood Pressure 104/50 107/51 O2 Sat by Pulse 91 90 Oximetry 06/23/21 06/23/21 06/23/21 10:15 10:30 10:45 Temperature Pulse Rate 126 H 123 H 123 H Pulse Rate [ Anterior Bilateral Throughout] Pulse Rate [ From Monitor] Respiratory 30 H 30 H 30 H Rate Respiratory Rate [Anterior Bilateral Throughout] Blood Pressure 106/50 106/51 113/53 O2 Sat by Pulse 90 89 89 Oximetry 06/23/21 06/23/21 06/23/21 11:00 11:10 11:15 Temperature Pulse Rate 121 H 121 H Pulse Rate [ Anterior Bilateral Throughout] Pulse Rate [ From Monitor] Respiratory 30 H 30 H 30 H Rate Respiratory Rate [Anterior Bilateral Throughout] Blood Pressure 111/50 115/53 O2 Sat by Pulse 90 90 Oximetry 06/23/21 06/23/21 06/23/21 11:29 11:30 11:45 Temperature Pulse Rate 121 H 120 H 120 H Pulse Rate [ Anterior Bilateral Throughout] Pulse Rate [ From Monitor] Respiratory 30 H 30 H Rate Respiratory Rate [Anterior Bilateral Throughout] Blood Pressure 111/50 117/52 120/54 O2 Sat by Pulse 92 91 92 Oximetry 06/23/21 06/23/21 06/23/21 12:00 12:15 12:30 Temperature 98.6 F Pulse Rate 117 H 118 H 117 H Pulse Rate [ Anterior Bilateral Throughout] Pulse Rate [ 117 H From Monitor] Respiratory 30 H 30 H 30 H Rate Respiratory Rate [Anterior Bilateral Throughout] Blood Pressure 122/53 117/52 125/54 O2 Sat by Pulse 94 92 91 Oximetry 06/23/21 06/23/21 06/23/21 12:45 13:00 13:04 Temperature Pulse Rate 116 H 116 H Pulse Rate [ 118 H Anterior Bilateral Throughout] Pulse Rate [ From Monitor] Respiratory 30 H 30 H Rate Respiratory 30 H Rate [Anterior Bilateral Throughout] Blood Pressure 116/53 119/55 O2 Sat by Pulse 92 92 Oximetry 06/23/21 06/23/21 06/23/21 13:15 13:30 13:45 Temperature Pulse Rate 116 H 117 H 114 H Pulse Rate [ Anterior Bilateral Throughout] Pulse Rate [ From Monitor] Respiratory 29 H 29 H 30 H Rate Respiratory Rate [Anterior Bilateral Throughout] Blood Pressure 110/47 97/46 98/56 O2 Sat by Pulse 95 96 95 Oximetry 06/23/21 06/23/21 06/23/21 14:00 14:15 14:30 Temperature Pulse Rate 116 H 114 H 116 H Pulse Rate [ Anterior Bilateral Throughout] Pulse Rate [ From Monitor] Respiratory 30 H 30 H 30 H Rate Respiratory Rate [Anterior Bilateral Throughout] Blood Pressure 98/56 133/56 O2 Sat by Pulse 97 96 93 Oximetry 06/23/21 06/23/21 06/23/21 14:45 15:00 15:15 Temperature Pulse Rate 116 H 116 H 117 H Pulse Rate [ Anterior Bilateral Throughout] Pulse Rate [ From Monitor] Respiratory 30 H 31 H 24 Rate Respiratory Rate [Anterior Bilateral Throughout] Blood Pressure 131/58 132/56 132/57 O2 Sat by Pulse 95 94 93 Oximetry 06/23/21 06/23/21 06/23/21 15:30 15:45 16:00 Temperature 97.9 F Pulse Rate 117 H 116 H 121 H Pulse Rate [ Anterior Bilateral Throughout] Pulse Rate [ 116 H From Monitor] Respiratory 20 30 H 23 Rate Respiratory Rate [Anterior Bilateral Throughout] Blood Pressure 129/57 122/57 146/63 O2 Sat by Pulse 92 93 100 Oximetry 06/23/21 06/23/21 06/23/21 16:15 16:31 16:45 Temperature Pulse Rate 117 H 114 H 124 H Pulse Rate [ Anterior Bilateral Throughout] Pulse Rate [ From Monitor] Respiratory 30 H 30 H 13 Rate Respiratory Rate [Anterior Bilateral Throughout] Blood Pressure 123/53 142/50 142/50 O2 Sat by Pulse 95 97 99 Oximetry 06/23/21 06/23/21 06/23/21 17:01 17:15 17:31 Temperature Pulse Rate 123 H 125 H 127 H Pulse Rate [ Anterior Bilateral Throughout] Pulse Rate [ From Monitor] Respiratory 26 H 26 H 20 Rate Respiratory Rate [Anterior Bilateral Throughout] Blood Pressure 128/57 128/57 105/54 O2 Sat by Pulse 99 99 97 Oximetry - Lab 06/23/21 04:40 06/23/21 04:40 Most recent lab results ABG pH 7.204 (7.320-7.450) L 06/23/21 04:40 ABG pCO2 70.2 mm Hg 06/20/21 18:00 ABG pO2 209.0 mm Hg (80.0-90.0) H 06/20/21 18:00 ABG HCO3 26.1 mmol/L (20.0-26.0) H 06/20/21 18:00 ABG O2 Saturation 90.4 (0-100) 06/23/21 04:40 Calcium 7.3 mg/dL (8.4-10.2) L 06/23/21 04:40 Phosphorus 5.60 mg/dL (2.5-4.5) H D 06/18/21 10:56 Magnesium 2.30 mg/dL (1.7-2.3) 06/18/21 10:56 Urine Creatinine 49.9 mg/dL (0.1-20.0) H 06/19/21 11:14 Urine Sodium 56 mmol/L 06/19/21 11:14 Medications & Allergies - Medications Allergies/Adverse Reactions: Allergies No Known Allergies Allergy (Unverified 02/12/17 15:47) Home Medications: Home Medications Medication Instructions Recorded Confirmed Last Taken Type No Known Home Medications [No 05/31/21 05/31/21 Unknown History Reported Home Medications] Active Medications: Generic Name Dose Route Start Last Admin Trade Name Freq PRN Reason Stop Dose Admin Acetaminophen 650 mg 06/19/21 12:00 06/23/21 10:10 Acetaminophen 325 Mg/10.15 Ml Oral Liqd Unit Dose FEEDTUBE 650 mg Q6H PRN Administration Pain MILD(1-3)/Fever >100.5/LUCAS Albuterol/Ipratropium 1 ampul 06/07/21 20:00 06/23/21 13:04 Ipratropium/Albuterol Sulfate 3 Ml Ampul.Neb IH 1 ampul TIDRT MIKE Administration Lipase/Protease/Amylase 1 each 06/18/21 12:21 Lipase 10,500/Protease 25,000/Amylase 43,750 (Units) Dr Cap FEEDTUBE PRN PRN For Clogged Feeding Tube Famotidine 10 mg 06/19/21 10:00 06/23/21 10:10 Famotidine 20 Mg/2 Ml Inj IV 10 mg BID MIKE Administration Fentanyl 50 mcg 06/17/21 17:00 Fentanyl 100 Mcg/2 Ml Inj IV Q10MIN PRN ANALGESIA Hydrophilic Ointment 1 applic 06/17/21 17:00 Lip Therapy Vaseline TP Q2HR PRN Dry Lips Metronidazole 500 mg in 100 mls @ 100 mls/hr 06/08/21 13:00 06/23/21 12:18 Flagyl 500 Mg/100 Ml IV 06/29/21 05:59 100 mls/hr Q8H MIKE Administration Protocol Fentanyl Citrate 2,000 mcg in 100 mls @ 3.725 mls/hr 06/17/21 17:00 06/23/21 13:43 Fentanyl Drip Premix IV 3 mcg/kg/hr TITR MIKE 11.175 mls/hr Administration Protocol 1 MCG/KG/HR NORepinephrine/NS 8 MG-250 ML 8 mg in 250 mls @ 3.75 mls/hr 06/18/21 23:00 06/23/21 13:46 Norepinephrine/Ns 8 Mg-250 Ml (Double Conc) IV 18 mcg/min TITRATE MIKE 33.75 mls/hr Administration Protocol 2 MCG/MIN Cefepime HCl 2 gm in 100 mls @ 200 mls/hr 06/20/21 06:00 06/23/21 05:00 Cefepime/Ns 2 Gm/100 Ml IV 06/29/21 06:29 200 mls/hr Q24H MIKE Administration Protocol Sodium Chloride 1,000 mls @ 50 mls/hr 06/20/21 09:30 Nacl 0.9% 1000 Ml IV DIRECT MIKE Propofol 1,000 mg in 100 mls @ 2.226 mls/hr 06/20/21 13:00 06/23/21 04:49 Diprivan 10 Mg/Ml IV 20 mcg/kg/min TITR MIKE 8.904 mls/hr Administration Protocol 5 MCG/KG/MIN Sodium Chloride 100 mls @ 999 mls/hr 06/23/21 11:09 Nacl 0.9% IV KAVITA PRN Hypotension Morphine Sulfate 2 mg 05/23/21 22:01 06/17/21 10:01 Morphine 2 Mg/1 Ml Inj IV 2 mg Q4H PRN Administration Pain, Moderate (4-6) Multi-Ingred Cream/Lotion/Oil/Oint 1 applic 06/17/21 18:00 Mineral Oil/Petrolatum, White Ophth Oint 3.5 Gm OU Q4HR PRN Dry Eye(s) Ondansetron HCl 4 mg 06/04/21 13:41 06/09/21 22:05 Ondansetron 4 Mg/2 Ml Inj IV 4 mg Q4H PRN Administration Nausea And Vomiting Senna/Docusate Sodium 1 tab 06/17/21 22:00 06/23/21 10:12 Sennosides/Docusate Sodium 8.6/50 Mg Tab FEEDTUBE Not Given BID MIKE Simple Syrup 15 ml 06/18/21 12:21 Simple Syrup 15 Ml FEEDTUBE PRN PRN Hypoglycemia Simple Syrup 30 ml 06/18/21 12:21 Simple Syrup 15 Ml FEEDTUBE PRN PRN Hypoglycemia Sodium Bicarbonate 325 mg 06/18/21 12:21 Sodium Bicarbonate 325 Mg Tab FEEDTUBE PRN PRN For Clogged Feeding Tube Sodium Chloride 10 ml 05/23/21 22:01 06/22/21 21:23 Sodium Chloride 0.9% 10 Ml Flush Syringe IV 10 ml PRN PRN Administration LINE FLUSH
--- NOTE | 2021-06-23 19:30 | Progress Note ---
Assessment and Plan Assessment and plan: This is a 59-year-old male with CVA and current daily smoker admitted with pneumonia possibly secondary to COVID-19, hypoxia and encephalopathy Neuro: Acute encephalopathy -CT head negative -Sedated with fentanyl and propofol -Goal RASS -1 to -2 -Avoid delirium -Maintenance of sleep-wake cycle Cardio: S/p cardiac arrest -06/10 s/p cardiac arrest -Cardiology consulted, patient recommendations -Per cardiology not a candidate for anticoagulation secondary to anemia and beta-ian secondary to hypotension as well as reports of melena per nursing staff -Vasopressor support with Levophed -MAP goal of 65 -Echocardiogram shows left ventricle ejection fraction 55 to 60% Respiratory: Acute hypoxic respiratory failure, left pneumothorax, aspiration pneumonia with left lower lobe lesion, pneumomediastinum -S/p BiPAP -CCM consulted, appreciate recommendation -CXR showed patchy multifocal airspace disease bilaterally -Patient was intubated 06/17 with a 8.0 OETT at 24 at the lips -A.m. vent settings: Assist control tidal volume 450, rate 30, PEEP 8 on 100% FiO2 -See RT notes for weaning -Serial ABG and CXR -06/23 ABG and CXR reviewed -VAP bundle -SPO2 monitoring -Daily SBT/SAT trials when appropriate -Chest tube to wall suction -VQ scan shows low probability of pulmonary embolism GI: NAD, s/p ileus (resolved) -NTR consult for tube feeding -Nephro at 41 ml/hr -Free water pressure 190 mL every 4 -PPI: Pepcid -BR: Senokot : Acute kidney injury secondary to vasomotor nephropathy, hypernatremia, hyperchloremia -Nephrology consulted, appreciate recommendations -Renal ultrasound unremarkable -Vasculitis work-up negative, including ANCA as well as complement levels -06/20 HD initiated by nephrology -HD per nephrology -Avoid nephrotoxic medications -Renally dose medication -Daily weights -Strict intake and output -Trend BMP ID: Aspiration pneumonia with left lower lobe abcess, COVID 19 PNA -Seen on CT abdomen pelvis and chest: Approximately 5 x 6 cm -Infectious disease consulted, appreciate recommendations -Covid 19 PCR positive at outpatient however negative x2 inpatient -CT abdomen/pelvis showed severe aspiration type pneumonia bilateral bases with lesion in the left lower lobe -Cefepime and Flagyl (planned 3 weeks of therapy) -> per ID -S/p azithromycin , ceftriaxone -S/p Decadron -S/p stress dose steroids -s/p Actemra on 05/24 -Monitor fever WBC curve -Follow-up culture data Heme: Leukopenia, elevated D-dimer -D-dimer on admit greater than 10,000-> VQ scan with low probability of PE -D-dimer trending down -Eliquis 2.5 every 12 -Trend CBC -Transfuse for hemoglobin less than 7 Endo: NAD -SSI -Accu-Cheks every 6 -Avoid hypoglycemia The high probability of a clinically significant, sudden or life threatening deterioration of the [multi] system(s) required my full and direct attention, intervention and personal management. The aggregate critical care time was [60] minutes. This time is in addition to time spent performing reported procedures but includes the following: [x] Data Review and interpretation [x] Patient assessment and monitoring of vital signs [x] Documentation [x] Medication orders and management Disposition Plan: icu Total Time Spent with Patient (Minutes): 60 History Interval history: This is a 59-year-old male with CVA and current daily smoker who was diagnosed with COVID-19 on 05/11/2021 who presented to emergency department on 05/23 with complaints of shortness of breath, decreased oral intake over the past 10 to 12 days via EMS. Initial oxygen saturation according to EMS was about 70% on room air and he was placed on a nonrebreather. Upon arrival to the emergency department patient was placed on a nasal cannula as he had significant improvement in oxygen saturation. Work-up in the emergency department revealed elevated D-dimer, hyponatremia, hyperkalemia, acute kidney injury, lactic a cidosis and leukocytosis. CXR showed mild patchy multifocal airspace disease throughout the lungs and a VQ scan was showed low ability of pulmonary embolism. Patient was admitted to the hospitalist service with pneumonia possibly secondary to COVID-19, hypoxia and encephalopathy. 06/23: Patient remains on vasopressor support with Levophed, maximal vent settings, sedated with fentanyl and propofol. Chest tube remains to wall suction. Continue antibiotics and pancytopenia persists. HD per nephrology. 06/22: Patient CODE STATUS changed to AND/DNR, no acute events reported overnight 06/21: No acute events reported overnight 06/20: S/p cardiac arrest, intubated, transferred to ICU, Vas-Cath placement with initiation of HD Hospitalist Physical - Constitutional Vitals: Temp Pulse Resp BP Pulse Ox 97.9 F 127 H 20 105/54 97 06/23/21 16:00 06/23/21 17:31 06/23/21 17:31 06/23/21 17:31 06/23/21 17:31 General appearance: Present: other (intubated) - EENT Eyes: Present: PERRL, EOM intact ENT: dentition normal - Neck Neck: Absent: masses or JVD, cervical LAD - Respiratory Respiratory effort: normal Respiratory: bilateral: diminished - Cardiovascular Rhythm: regular Heart Sounds: Present: S1 & S2. Absent: systolic murmur, diastolic murmur - Extremities Extremities: no ischemia, pulses intact, pulses symmetrical, No edema, normal temperature, normal color Peripheral Pulses: within normal limits - Abdominal General gastrointestinal: soft, non-tender, non-distended, normal bowel sounds - Integumentary Integumentary: Present: warm, dry - Psychiatric Psychiatric: other (Sedated) - Neurologic Neurologic: other (Intact cough/gag) - Allied Health Allied health notes reviewed: nursing, social work HEART Score - HEART Score EKG: Non-specific Age: 45-65 Risk factors: 1-2 risk factors Troponin: Troponin T 0.105 ng/mL (0.00-0.029) H* 06/20/21 05:00 - Critical Actions Critical Actions: 0-3 pts:0.9-1.7%risk of adverse cardiac event.Candidate for discharge Results - Labs CBC & Chem 7: 06/23/21 04:40 06/23/21 04:40 Labs: Laboratory Last Values WBC 2.5 K/mm3 (4.5-11.0) L 06/23/21 04:40 RBC 2.74 M/mm3 (3.65-5.03) L 06/23/21 04:40 Hgb 7.9 gm/dl (11.8-15.2) L 06/23/21 04:40 Hct 23.1 % (35.5-45.6) L 06/23/21 04:40 MCV 84 fl (84-94) 06/23/21 04:40 MCH 29 pg (28-32) 06/23/21 04:40 MCHC 34 % (32-34) 06/23/21 04:40 RDW 16.5 % (13.2-15.2) H 06/23/21 04:40 Plt Count 28 K/mm3 (140-440) L 06/23/21 04:40 Lymph % (Auto) [employer] 06/01/21 07:10 [place] % (Auto) [employer] 06/01/21 07:10 Eos % (Auto) [employer] 06/01/21 07:10 [place] % (Auto) [employer] 06/01/21 07:10 Lymph # (Auto) [employer] 06/01/21 07:10 [place] # (Auto) [employer] 06/01/21 07:10 Eos # (Auto) [employer] 06/01/21 07:10 [place] # (Auto) [employer] 06/01/21 07:10 Add Manual Diff Complete 06/17/21 06:25 Total Counted 100 06/17/21 06:25 Seg Neutrophils % [employer] 06/17/21 06:25 Seg Neuts % (Manual) 95.0 % (40.0-70.0) H 06/17/21 06:25 Band Neutrophils % 2.0 % 06/17/21 06:25 Lymphocytes % (Manual) 1.0 % (13.4-35.0) L 06/15/21 05:53 Reactive Lymphs % (Man) 1.0 % 06/01/21 07:10 Monocytes % (Manual) 3.0 % (0.0-7.3) 06/17/21 06:25 Myelocytes % 1.0 % 06/13/21 06:05 Nucleated RBC % Not Reportable 06/17/21 06:25 Seg Neutrophils # [employer] 06/01/21 07:10 Seg Neutrophils # Man 4.2 K/mm3 (1.8-7.7) 06/17/21 06:25 Band Neutrophils # 0.1 K/mm3 06/17/21 06:25 Lymphocytes # (Manual) 0.0 K/mm3 (1.2-5.4) L 06/17/21 06:25 Abs React Lymphs (Man) 0.0 K/mm3 06/17/21 06:25 Monocytes # (Manual) 0.1 K/mm3 (0.0-0.8) 06/17/21 06:25 Eosinophils # (Manual) 0.0 K/mm3 (0.0-0.4) 06/17/21 06:25 Basophils # (Manual) 0.0 K/mm3 (0.0-0.1) 06/17/21 06:25 Metamyelocytes # 0.0 K/mm3 06/17/21 06:25 Myelocytes # 0.0 K/mm3 06/17/21 06:25 Promyelocytes # 0.0 K/mm3 06/17/21 06:25 Blast Cells # 0.0 K/mm3 06/17/21 06:25 WBC Morphology Not Reportable 06/17/21 06:25 Hypersegmented Neuts Not Reportable 06/17/21 06:25 Hyposegmented Neuts Not Reportable 06/17/21 06:25 Hypogranular Neuts Not Reportable 06/17/21 06:25 Smudge Cells Not Reportable 06/17/21 06:25 Toxic Granulation Not Reportable 06/17/21 06:25 Toxic Vacuolation Not Reportable 06/17/21 06:25 Dohle Bodies Not Reportable 06/17/21 06:25 Pelger-Huet Anomaly Not Reportable 06/17/21 06:25 Kaci Rods Not Reportable 06/17/21 06:25 Platelet Estimate Consistent w auto 06/17/21 06:25 Clumped Platelets Not Reportable 06/17/21 06:25 Plt Clumps, EDTA Not Reportable 06/17/21 06:25 Large Platelets Not Reportable 06/17/21 06:25 Giant Platelets Not Reportable 06/17/21 06:25 Platelet Satelliting Not Reportable 06/17/21 06:25 Plt Morphology Comment Not Reportable 06/17/21 06:25 RBC Morphology Normal 06/17/21 06:25 Dimorphic RBCs Not Reportable 06/17/21 06:25 Polychromasia Not Reportable 06/17/21 06:25 Hypochromasia Not Reportable 06/17/21 06:25 Poikilocytosis Not Reportable 06/17/21 06:25 Anisocytosis Not Reportable 06/17/21 06:25 Microcytosis Not Reportable 06/17/21 06:25 Macrocytosis Not Reportable 06/17/21 06:25 Spherocytes Not Reportable 06/17/21 06:25 Pappenheimer Bodies Not Reportable 06/17/21 06:25 Sickle Cells Not Reportable 06/17/21 06:25 Target Cells Not Reportable 06/17/21 06:25 Tear Drop Cells Not Reportable 06/17/21 06:25 Ovalocytes Not Reportable 06/17/21 06:25 Helmet Cells Not Reportable 06/17/21 06:25 We[place]-Piedra Bodies Not Reportable 06/17/21 06:25 [place] Rings Not Reportable 06/17/21 06:25 [place] Cells Not Reportable 06/17/21 06:25 Bite Cells Not Reportable 06/17/21 06:25 Crenated Cell Not Reportable 06/17/21 06:25 Elliptocytes Not Reportable 06/17/21 06:25 Acanthocytes (Spur) Not Reportable 06/17/21 06:25 Rouleaux Not Reportable 06/17/21 06:25 Hemoglobin C Crystals Not Reportable 06/17/21 06:25 Schistocytes Not Reportable 06/17/21 06:25 Malaria parasites Not Reportable 06/17/21 06:25 Dick Bodies Not Reportable 06/17/21 06:25 Hem Pathologist Commnt No 06/17/21 06:25 PT 19.2 Sec. (12.2-14.9) H 06/19/21 09:37 INR 1.46 (0.87-1.13) H 06/19/21 09:37 APTT 54.3 Sec. (24.2-36.6) H 06/19/21 09:37 D-Dimer 3584.01 ng/mlDDU (0-234) H 05/27/21 08:09 ABG pH 7.204 (7.320-7.450) L 06/23/21 04:40 POC ABG pCO2 63.9 mmHg (32.0-48.0) H 06/23/21 04:40 ABG pCO2 70.2 mm Hg 06/20/21 18:00 POC ABG pO2 68.2 mmHg (83-108) L 06/23/21 04:40 ABG pO2 209.0 mm Hg (80.0-90.0) H 06/20/21 18:00 POC ABG HCO3 24.6 06/23/21 04:40 ABG HCO3 26.1 mmol/L (20.0-26.0) H 06/20/21 18:00 ABG O2 Saturation 90.4 (0-100) 06/23/21 04:40 ABG O2 Content 10.6 (0.0-44) 06/20/21 18:00 POC ABG Base Excess -3.4 06/23/21 04:40 ABG Base Excess -2.3 mmol/L (-2.0-3.0) L 06/20/21 18:00 ABG Hemoglobin 7.8 (12.0-17.5) L 06/23/21 04:40 ABG Oxyhemoglobin 88.8 (94-98) L 06/23/21 04:40 ABG Carboxyhemoglobin 1.7 % (0.0-5.0) 06/20/21 18:00 ABG Methemoglobin 0.3 (0.0-1.5) 06/23/21 04:40 ABG Sodium 132.0 mmol/L (136.0-145.0) L 06/23/21 04:40 ABG Potassium 3.5 mmol/L (3.40-4.50) 06/23/21 04:40 ABG Chloride 101.0 mmol/L (98-107) 06/23/21 04:40 ABG Glucose 100 mg/dL (65-95) H 06/23/21 04:40 VBG pH 7.254 (7.320-7.420) L 05/24/21 02:09 Oxyhemoglobin 96.7 % (95.0-99.0) 06/20/21 18:00 Carboxyhemoglobin 1.5 (0.5-1.5) 06/23/21 04:40 FiO2 100 % 06/20/21 18:00 FiO2 % 85.0 06/23/21 04:40 Sodium 139 mmol/L (137-145) 06/23/21 04:40 Potassium 3.7 mmol/L (3.6-5.0) 06/23/21 04:40 Chloride 101.9 mmol/L (98-107) 06/23/21 04:40 Carbon Dioxide 23 mmol/L (22-30) 06/23/21 04:40 Anion Gap 18 mmol/L 06/23/21 04:40 BUN 77 mg/dL (9-20) H 06/23/21 04:40 Creatinine 4.1 mg/dL (0.8-1.3) H 06/23/21 04:40 Estimated GFR 18 ml/min 06/23/21 04:40 BUN/Creatinine Ratio 19 % 06/23/21 04:40 Glucose 99 mg/dL (75-100) 06/23/21 04:40 POC Glucose 111 mg/dL (70-105) H 06/23/21 17:57 Lactic Acid 1.00 mmol/L (0.7-2.0) 06/19/21 16:20 Calcium 7.3 mg/dL (8.4-10.2) L 06/23/21 04:40 Phosphorus 5.60 mg/dL (2.5-4.5) H D 06/18/21 10:56 Magnesium 2.30 mg/dL (1.7-2.3) 06/18/21 10:56 Ferritin 2742.0 ng/mL (30.0-300.0) H 05/27/21 08:09 Total Bilirubin 0.20 mg/dL (0.1-1.2) 06/21/21 07:45 AST 51 units/L (5-40) H 06/21/21 07:45 ALT 14 units/L (7-56) 06/21/21 07:45 Alkaline Phosphatase 122 units/L (35-129) 06/21/21 07:45 Ammonia 22.0 umol/L (25-60) L 05/23/21 18:48 Lactate Dehydrogenase 642 units/L (91-180) H 05/27/21 08:09 Troponin T 0.105 ng/mL (0.00-0.029) H* 06/20/21 05:00 C-Reactive Protein 11.50 mg/dL (0.00-1.30) H 06/19/21 16:15 Total Protein 3.9 g/dL (6.3-8.2) L 06/21/21 07:45 Albumin 1.3 g/dL (3.9-5) L 06/21/21 07:45 Albumin/Globulin Ratio 0.5 % 06/21/21 07:45 Triglycerides 295 mg/dL (2-149) H 06/19/21 12:19 Cholesterol 85 mg/dL (50-199) 06/19/21 12:19 LDL Cholesterol Direct 24 mg/dL (50-130) L 06/19/21 12:19 HDL Cholesterol 17 mg/dL (40-59) L 06/19/21 12:19 Cholesterol/HDL Ratio 5.00 % 06/19/21 12:19 Procalcitonin 19.60 ng/mL (<0.15) 06/18/21 Unknown TSH 1.150 mlU/mL (0.270-4.200) 05/23/21 18:48 Arterial Blood Glucose 100 mg/dL (65-95) H 06/23/21 04:40 Arterial Blood Ionized Calcium 4.5 mg/dL (4.6-5.3) L 05/29/21 17:58 Urine Color Eli (Yellow) 06/20/21 12:35 Urine Turbidity Cloudy (Clear) 06/20/21 12:35 Urine pH 5.0 (5.0-7.0) 06/20/21 12:35 Ur Specific [place] 1.016 (1.003-1.030) 06/20/21 12:35 Urine Protein 100 mg/dl mg/dL (Negative) 06/20/21 12:35 Urine Glucose (UA) 50 mg/dL (Negative) 06/20/21 12:35 Urine Ketones Neg mg/dL (Negative) 06/20/21 12:35 Urine Blood Mod (Negative) 06/20/21 12:35 Urine Nitrite Neg (Negative) 06/20/21 12:35 Urine Bilirubin Neg (Negative) 06/20/21 12:35 Urine Urobilinogen < 2.0 mg/dL (<2.0) 06/20/21 12:35 Ur Leukocyte Esterase Neg (Negative) 06/20/21 12:35 Urine WBC (Auto) 46.0 /HPF (0.0-6.0) H 06/20/21 12:35 Urine RBC (Auto) 74.0 /HPF (0.0-6.0) 06/20/21 12:35 U Epithel Cells (Auto) 2.0 /HPF (0-13.0) 05/30/21 01:00 Urine Bacteria (Auto) 4+ /HPF (Negative) 06/20/21 12:35 Urine WBC Clumps Few /HPF 06/20/21 12:35 Uric Acid Crystals Few 05/30/21 01:00 Amorphous Crystals 3+ 06/20/21 12:35 Granular Casts 90 /LPF 06/20/21 12:35 Urine Mucus Few /HPF 06/20/21 12:35 Ur Yeast w Hyphae 2+ /HPF 06/18/21 Unknown Urine Yeast (Budding) 3+ /HPF 06/18/21 Unknown Urine Sperm Few /HPF ([employer] SUPER[employer]OR) 06/20/21 12:35 Urine Eosinophils None seen (None Seen) 06/18/21 11:24 Urine Creatinine 49.9 mg/dL (0.1-20.0) H 06/19/21 11:14 Urine Sodium 56 mmol/L 06/19/21 11:14 Fraction Sodium Excret 2.3 06/19/21 11:14 Nasal Screen MRSA (PCR) Negative (Negative) 06/15/21 Unknown Vancomycin Trough 18.1 ug/mL (5.0-20.0) 06/16/21 22:30 Plasma/Serum Alcohol < 0.01 % (0-0.07) 05/23/21 18:48 Proteinase 3 (PR3) Ab <1.0 AI (<1.0) 05/24/21 20:57 Myeloperoxidase Ab <1.0 AI (<1.0) 05/24/21 20:57 Complement C3 108 mg/dL (82-185) 05/24/21 20:57 Complement C4 29 mg/dL (15-53) 05/24/21 20:57 Coronavirus (PCR) Negative (Negative) 05/26/21 08:41 Blood Type A POSITIVE 06/20/21 22:38 Antibody Screen Negative 06/20/21 22:38 Crossmatch See Detail 06/20/21 22:38 Microbiology: Microbiology 06/17/21 18:29 Tracheal Aspirate Sputum Culture - Preliminary Heart/IV: Voiding Method Indwelling Catheter Active Medications - Current Medications Current Medications: Generic Name Dose Route Start Last Admin Trade Name Freq PRN Reason Stop Dose Admin Acetaminophen 650 mg 06/19/21 12:00 06/23/21 10:10 Acetaminophen 325 Mg/10.15 Ml Oral Liqd Unit Dose FEEDTUBE 650 mg Q6H PRN Administration Pain MILD(1-3)/Fever >100.5/LUCAS Albuterol/Ipratropium 1 ampul 06/07/21 20:00 06/23/21 13:04 Ipratropium/Albuterol Sulfate 3 Ml Ampul.Neb IH 1 ampul TIDRT MIKE Administration Lipase/Protease/Amylase 1 each 06/18/21 12:21 Lipase 10,500/Protease 25,000/Amylase 43,750 (Units) Dr Cap FEEDTUBE PRN PRN For Clogged Feeding Tube Famotidine 10 mg 06/19/21 10:00 06/23/21 10:10 Famotidine 20 Mg/2 Ml Inj IV 10 mg BID MIKE Administration Fentanyl 50 mcg 06/17/21 17:00 Fentanyl 100 Mcg/2 Ml Inj IV Q10MIN PRN ANALGESIA Hydrophilic Ointment 1 applic 06/17/21 17:00 Lip Therapy Vaseline TP Q2HR PRN Dry Lips Metronidazole 500 mg in 100 mls @ 100 mls/hr 06/08/21 13:00 06/23/21 12:18 Flagyl 500 Mg/100 Ml IV 06/29/21 05:59 100 mls/hr Q8H MIKE Administration Protocol Fentanyl Citrate 2,000 mcg in 100 mls @ 3.725 mls/hr 06/17/21 17:00 06/23/21 13:43 Fentanyl Drip Premix IV 3 mcg/kg/hr TITR MIKE 11.175 mls/hr Administration Protocol 1 MCG/KG/HR NORepinephrine/NS 8 MG-250 ML 8 mg in 250 mls @ 3.75 mls/hr 06/18/21 23:00 06/23/21 13:46 Norepinephrine/Ns 8 Mg-250 Ml (Double Conc) IV 18 mcg/min TITRATE MIKE 33.75 mls/hr Administration Protocol 2 MCG/MIN Cefepime HCl 2 gm in 100 mls @ 200 mls/hr 06/20/21 06:00 06/23/21 05:00 Cefepime/Ns 2 Gm/100 Ml IV 06/29/21 06:29 200 mls/hr Q24H MIKE Administration Protocol Sodium Chloride 1,000 mls @ 50 mls/hr 06/20/21 09:30 Nacl 0.9% 1000 Ml IV DIRECT MIKE Propofol 1,000 mg in 100 mls @ 2.226 mls/hr 06/20/21 13:00 06/23/21 04:49 Diprivan 10 Mg/Ml IV 20 mcg/kg/min TITR MIKE 8.904 mls/hr Administration Protocol 5 MCG/KG/MIN Sodium Chloride 100 mls @ 999 mls/hr 06/23/21 11:09 Nacl 0.9% IV KAVITA PRN Hypotension Morphine Sulfate 2 mg 05/23/21 22:01 06/17/21 10:01 Morphine 2 Mg/1 Ml Inj IV 2 mg Q4H PRN Administration Pain, Moderate (4-6) Multi-Ingred Cream/Lotion/Oil/Oint 1 applic 06/17/21 18:00 Mineral Oil/Petrolatum, White Ophth Oint 3.5 Gm OU Q4HR PRN Dry Eye(s) Ondansetron HCl 4 mg 06/04/21 13:41 06/09/21 22:05 Ondansetron 4 Mg/2 Ml Inj IV 4 mg Q4H PRN Administration Nausea And Vomiting Senna/Docusate Sodium 1 tab 06/17/21 22:00 06/23/21 10:12 Sennosides/Docusate Sodium 8.6/50 Mg Tab FEEDTUBE Not Given BID MIKE Simple Syrup 15 ml 06/18/21 12:21 Simple Syrup 15 Ml FEEDTUBE PRN PRN Hypoglycemia Simple Syrup 30 ml 06/18/21 12:21 Simple Syrup 15 Ml FEEDTUBE PRN PRN Hypoglycemia Sodium Bicarbonate 325 mg 06/18/21 12:21 Sodium Bicarbonate 325 Mg Tab FEEDTUBE PRN PRN For Clogged Feeding Tube Sodium Chloride 10 ml 05/23/21 22:01 06/22/21 21:23 Sodium Chloride 0.9% 10 Ml Flush Syringe IV 10 ml PRN PRN Administration LINE FLUSH Nutrition/Malnutrition Assess - Dietary Evaluation Nutrition/Malnutrition Findings: Nutrition Notes Start: 05/25/21 09:33 Freq: Status: Active Protocol: Document 06/20/21 12:02 GB (Rec: 06/20/21 12:17 GB [email or web address]) Nutrition Notes Initial or Follow up Reassessment Current Diagnosis Respiratory Failure Other Pertinent Diagnosis Accute Kidney Injury, Pneumonia, PUI Covid-19. Current Diet NPO, Tube Feeding Nepro Labs/Tests 06/20: BUN 108, creatinine 4.3 , Glu 152, Ca 7/1 Pertinent Medications fentanyl citrate, Norepinhephrin/Ns8 Mg250 Height 5 ft 11 in Weight 74.2 kg [place] Body Weight (kg) 78.18 BMI 22.8 Weight change and time frame 05/24: 77.111kg 06/20: 74.2kg change of -2.911kg for -3.7% signficance. Stable for 30 days. Weight Status Appropriate Subjective/Other Information TF at goal rate. Per chart: pt name is Marty Sanabria age 59yrs. Last BM: 06/19 MD note 06/20: Pt experienced PEA arrest today. Family wants full care and continue full code status. Percent of energy/protein needs met: TF at goal rate meets 75% or greater EEN Burn Absent Trauma Absent GI Symptoms Diarrhea Difficulty In Swallowing Food Allergy No Skin Integrity/Comment PI: buttocks Current % PO Other Minimum of two criteria No physical signs of malnutrition #2 Nutrition Diagnosis No nutrition diagnosis at this time Diagnosis Progress(for reassessment Resolved documentation) #1 Nutrition Diagnosis Swallowing difficulty Comments: 06/20: Tube feeding started , Nepro @41ml/hr at goal, tolerating Etiology acute illness As Evidenced by Signs and Symptoms Intubated, TF Diagnosis Progress(for reassessment Continues documentation) Is patient on ventilator? Yes Is Patient Ambulatory and/or Out of Bed No REE-([facility]-confined to bed) 1923.336 Kcal/Kg value to use for calculation 25 Approximate Energy Requirements Using 1855 kcal/Kg Calculation Used for Recommendations Kcal/kg Additional Notes protein needs: 1.0-1.2 g/Kg/ day @78kg; 78-94 gr/day fluid needs: 1.0 ml/kcal, or as per MD. Nutrition Intervention Change Diet Order: NPO - continue Nutrition Support: TF- Nepro @41ml/hr continue Flush 190ml/4hr Total fluids: TF at goal + Flush = 1855ml Kcal 1,771 Protein (gm) 80 Fluid (mL) 715 Add Supplement/Snack (indicate name/kcal n/a /protein ) Goal #1 Maintain body weight within +/ -3% of current BWt during LOS. 06/20: met, -3.7% in 30 days, continues Goal #2 Reach and maintain acceptable chemistry lab values during LOS. 06/20: showing improvement, continues Goal #3 Tolerate TF at goal 41ml/hr during LOS 06/20: met, continues Follow-Up By: 06/24/21 Additional Comments f/u: TF, vent status
[2021-06-23] MEDS ORDERED: LORazepam 2 MG/ML VIAL ONE (22:00)
[2021-06-23] MEDS ORDERED: diazePAM 10 MG/2 ML SYRINGE ONE (22:02)
[2021-06-23] MEDS ORDERED: LORazepam 2 MG/ML VIAL IV PRN (22:12)
[2021-06-23] MEDS ORDERED: diazePAM 10 MG/2 ML SYRINGE IV ONE (22:15)
--- NOTE | 2021-06-23 22:16 | Event Note ---
Date: 06/23/21 Called by the nurse that the patient is seizing. Patient is given 2 mg of Ativan fast then give 5 mg of diazepam. Patient has stopped seizing. We order EEG, CT scan of the head without IV contrast and consult neurology. We'll put the patient on Keppra 500 mg IV every 12 hours.
[2021-06-23] MEDS ORDERED: levETIRAcetam 500 MG in DEXTROSE 5% IN WATER 100 ML IV SCH (23:00)
[2021-06-24] MEDS ORDERED: dilTIAZem 50 MG/10 ML INJ IV ONE (00:19)
[2021-06-24] MEDS ORDERED: NORepinephrine/NS 4 MG-250 ML 4 MG/250 ML BAG IV ONE ×2 (02:08→14:58)
[2021-06-24] MEDS: NORepinephrine/NS 8 MG-250 ML 8 MG/250 ML INFUS..BTL IV SCH ×6 (02:20→23:21)
--- NOTE | 2021-06-24 04:46 | XRay Report ---
CHEST 1 VIEW 06/24/2021 3:20 AM INDICATION / CLINICAL INFORMATION: hypoxia. COMPARISON: 06/20/2021 FINDINGS: SUPPORT DEVICES: Stable, satisfactory device positioning. HEART / MEDIASTINUM: No significant abnormality. LUNGS / PLEURA: Redemonstrated multifocal airspace opacities. No pneumothorax. ADDITIONAL FINDINGS: Previously seen subcutaneous emphysema appears resolved. IMPRESSION: 1. Resolution of previously seen subcutaneous emphysema, otherwise no significant change. Signer Name: Javi Briseno DO Signed: 06/24/2021 4:42 AM Workstation Name: [id number]
[2021-06-24] MEDS: metroNIDAZOLE/NS 500 MG/100 ML 500 MG/100 ML BAG IV SCH ×7 (04:58→21:24)
[2021-06-24] MEDS: CEFEPIME/NS 2 GM/100 ML 2 GM/100 ML BAG IV SCH (05:03)
[2021-06-24] MEDS ORDERED: DEXTROSE 50% IN WATER (25GM) 50 ML SYRINGE IV ONE ×2 (05:22→12:31)
[2021-06-24] MEDS: fentaNYL DRIP Premix 2,000 MCG/100 ML BAG IV SCH ×3 (05:28→23:22)
[2021-06-24 05:30] LABS: Hematocrit 22.9 % (35.5-45.6); Hemoglobin 7.8 gm/dl (11.8-15.2); Mean Corpuscular HGB Conc 34 % (32-34); Mean Corpuscular Volume 84 fl (84-94); Red Blood Count 2.73 M/mm3 (3.65-5.03); Red Cell Distribution Width 16.6 % (13.2-15.2)
[2021-06-24 05:40] LABS: Platelet Count 19 K/mm3 (140-440)
[2021-06-24 05:41] LABS: Calcium 7.2 mg/dL (8.4-10.2)
[2021-06-24] MEDS ORDERED: SODIUM CHLORIDE 0.9% 500 ML 500 ML IV ONE (06:20)
[2021-06-24] MEDS: ACETAMINOPHEN 325 MG/10.15 ML ORAL LIQD UNIT DOSE FEEDTUBE PRN (09:45)
[2021-06-24] MEDS: SENNOSIDES/DOCUSATE SODIUM 8.6/50 MG TAB FEEDTUBE SCH ×3 (09:45→21:53)
[2021-06-24] MEDS: FAMOTIDINE 20 MG/2 ML INJ IV SCH ×2 (09:45→21:24)
[2021-06-24] MEDS: IPRATROPIUM/ALBUTEROL SULFATE 3 ML AMPUL.NEB IH SCH ×3 (09:55→21:16)
[2021-06-24] MEDS ORDERED: levETIRAcetam 500 MG in DEXTROSE 5% IN WATER 100 ML IV SCH (10:00)
--- NOTE | 2021-06-24 11:28 | Consultation ---
History of Present Illness Consult date: 06/24/21 Reason for Consult: encephalopathy and witnessed seizure History of present illness: Shortness of Breath History of present illness: 55-year-old -[place] male who was diagnosed with COVID-19 on May 11, 2021 presents to the emergency room today with complaints of shortness of breath and decreased oral intake over the past 10 to 12 days. Patient also has known history of CVA about 20 years ago and it is unknown whether patient had any residual deficits. Patient has not been able to communicate well and most of the history was gotten from the ER staff. Initial oxygen saturation according to EMS was about 70% and patient was placed on nonrebreather. He was eventually placed on oxygen by nasal cannula upon arrival in the emergency room with significant improvement in his oxygen saturation. Work-up in the emergency room reveals a D-dimer greater than 10,000, sodium 151 potassium of 5.1, BUN of 180) and creatinine of 4.3. Patient had a lactic acid of 2.3. WBC was 11.8. CT scan of the head shows no acute abnormality. Chest x-ray shows mild patchy multifocal airspace disease throughout the lungs. No pleural effusion. VQ scan done showed low probability for pulmonary embolism. Patient being admitted with pneumonia possibly secondary to COVID-19, hypoxia and encephalopathy. neurology consulted due to unresponsiveness and last night witnessed seizure by Nursing staff CT brain is pending EEG is pending he is started on keppra 500 mg bid IV he is on dialysis BUN/Cr#77/4.1 pt. is on Fentanyl and propofol Past History Past Medical History: No medical history Past Surgical History: No surgical history Social history: smoking (Current daily smoker) Family history: no significant family history Past History Past Medical History: stroke, other (COVID-19) Past Surgical History: denies: CABG, PTCA Social history: smoking (current daily smoker). denies: alcohol abuse Family history: no significant family history Medications and Allergies Allergies Allergy/AdvReac Type Severity Reaction Status Date / Time No Known Allergies Allergy Unverified 02/12/17 15:47 Home Medications Medication Instructions Recorded Confirmed Last Taken Type No Known Home Medications [No 05/31/21 05/31/21 Unknown History Reported Home Medications] Active Meds: Active Medications Acetaminophen (Acetaminophen 325 Mg/10.15 Ml Oral Liqd Unit Dose) 650 mg FEEDTUBE Q6H PRN PRN Reason: Pain MILD(1-3)/Fever >100.5/LUCAS Last Admin: 06/24/21 09:45 Dose: 650 mg Documented by: Albuterol/Ipratropium (Ipratropium/Albuterol Sulfate 3 Ml Ampul.Neb) 1 ampul IH TIDRT MIKE Last Admin: 06/24/21 09:55 Dose: 1 ampul Documented by: Lipase/Protease/Amylase (Lipase 10,500/Protease 25,000/Amylase 43,750 (Units) Dr Cap) 1 each FEEDTUBE PRN PRN PRN Reason: For Clogged Feeding Tube Famotidine (Famotidine 20 Mg/2 Ml Inj) 10 mg IV BID [facility] Last Admin: 06/24/21 09:45 Dose: 10 mg Documented by: Fentanyl (Fentanyl 100 Mcg/2 Ml Inj) 50 mcg IV Q10MIN PRN PRN Reason: ANALGESIA Hydrophilic Ointment (Lip Therapy Vaseline) 1 applic TP Q2HR PRN PRN Reason: Dry Lips Metronidazole (Flagyl 500 Mg/100 Ml) 500 mg in 100 mls @ 100 mls/hr IV Q8H MIKE; Protocol Stop: 06/29/21 05:59 Last Admin: 06/24/21 05:02 Dose: 100 mls/hr Documented by: Fentanyl Citrate (Fentanyl Drip Premix) 2,000 mcg in 100 mls @ 3.725 mls/hr IV TITR MIKE; Protocol Last Titration: 06/24/21 09:47 Dose: 0 mcg/kg/hr, 0 mls/hr Documented by: NORepinephrine/NS 8 MG-250 ML (Norepinephrine/Ns 8 Mg-250 Ml (Double Conc)) 8 mg in 250 mls @ 3.75 mls/hr IV TITRATE MIKE; Protocol Last Titration: 06/24/21 07:45 Dose: 30 mcg/min, 56.25 mls/hr Documented by: Cefepime HCl (Cefepime/Ns 2 Gm/100 Ml) 2 gm in 100 mls @ 200 mls/hr IV Q24H MIKE; Protocol Stop: 06/29/21 06:29 Last Admin: 06/24/21 05:03 Dose: 200 mls/hr Documented by: Propofol (Diprivan 10 Mg/Ml) 1,000 mg in 100 mls @ 2.226 mls/hr IV TITR MIKE; Protocol Last Titration: 06/24/21 09:40 Dose: 0 mcg/kg/min, 0 mls/hr Documented by: Sodium Chloride (Nacl 0.9%) 100 mls @ 999 mls/hr IV KAVITA PRN PRN Reason: Hypotension Levetiracetam 500 mg/ Dextrose 105 mls @ 400 mls/hr IV Q12HR MIKE Last Admin: 06/23/21 23:05 Dose: 400 mls/hr Documented by: Vasopressin 20 unit/ Sodium (Chloride) 101 mls @ 9.09 mls/hr IV TITR MIKE; Protocol Lorazepam (Lorazepam 2 Mg/Ml Vial) 2 mg IV Q4H PRN PRN Reason: Agitation Morphine Sulfate (Morphine 2 Mg/1 Ml Inj) 2 mg IV Q4H PRN PRN Reason: Pain, Moderate (4-6) Last Admin: 06/17/21 10:01 Dose: 2 mg Documented by: Multi-Ingred Cream/Lotion/Oil/Oint (Mineral Oil/Petrolatum, White Ophth Oint 3.5 Gm) 1 applic OU Q4HR PRN PRN Reason: Dry Eye(s) Ondansetron HCl (Ondansetron 4 Mg/2 Ml Inj) 4 mg IV Q4H PRN PRN Reason: Nausea And Vomiting Last Admin: 06/09/21 22:05 Dose: 4 mg Documented by: Senna/Docusate Sodium (Sennosides/Docusate Sodium 8.6/50 Mg Tab) 1 tab FEEDTUBE BID [facility] Last Admin: 06/24/21 09:45 Dose: 1 tab Documented by: Simple Syrup (Simple Syrup 15 Ml) 15 ml FEEDTUBE PRN PRN PRN Reason: Hypoglycemia Last Admin: 06/23/21 23:31 Dose: 15 ml Documented by: Simple Syrup (Simple Syrup 15 Ml) 30 ml FEEDTUBE PRN PRN PRN Reason: Hypoglycemia Sodium Bicarbonate (Sodium Bicarbonate 325 Mg Tab) 325 mg FEEDTUBE PRN PRN PRN Reason: For Clogged Feeding Tube Sodium Chloride (Sodium Chloride 0.9% 10 Ml Flush Syringe) 10 ml IV PRN PRN PRN Reason: LINE FLUSH Last Admin: 06/22/21 21:23 Dose: 10 ml Documented by: Physical Examination - Vital Signs Vital Signs: Vital Signs Temp Pulse Resp BP Pulse Ox 97.9 F 132 H 24 156/92 99 05/23/21 18:36 05/23/21 18:36 05/23/21 18:36 05/23/21 18:36 05/23/21 18:36 - EENT EENT: Present: PERRL, mucous membranes moist - Respiratory Respiratory: Present: chest non-tender, lungs clear, rhonchi - Cardiovascular Cardiovascular: Present: regular rate, normal S1, normal S2 Extremities: Present: no peripheral edema bilatateraly, no clubbing, cyanosis - Gastrointestinal Gastrointestinal: Present: normoactive bowel sounds - Integumentary Integumentary: Present: normal - Neurologic Cranial nerve examination: PERRL, EOMI, other (pupil 22 m ,Corneal and gag are absent ,he is on vent.) Detailed motor examination: other (no movment to pain stimuli) Results - Laboratory Findings CBC and BMP: 06/24/21 05:00 06/24/21 05:00 Abnormal Lab Findings: Abnormal Labs 05/23/21 05/23/21 05/23/21 18:48 18:48 18:48 WBC 11.8 H RBC 5.18 H Hgb Hct MCV MCH MCHC RDW Plt Count Seg Neuts % (Manual) 84.0 H Lymphocytes % (Manual) Monocytes % (Manual) Nucleated RBC % Seg Neutrophils # Man 9.9 H Lymphocytes # (Manual) PT INR APTT D-Dimer > 80206 H ABG pH POC ABG pCO2 POC ABG pO2 ABG pO2 ABG HCO3 ABG O2 Saturation ABG Base Excess ABG Hemoglobin ABG Oxyhemoglobin ABG Sodium ABG Potassium ABG Chloride ABG Glucose VBG pH Carboxyhemoglobin Sodium Potassium Chloride Carbon Dioxide BUN Creatinine Glucose POC Glucose Lactic Acid 2.30 H* Calcium Phosphorus Magnesium Ferritin AST ALT Ammonia Lactate Dehydrogenase Troponin T C-Reactive Protein Total Protein Albumin Triglycerides LDL Cholesterol Direct HDL Cholesterol Arterial Blood Glucose Arterial Blood Ionized Calcium Urine WBC (Auto) Urine Creatinine Vancomycin Trough Crossmatch 05/23/21 05/23/21 05/23/21 18:48 18:48 18:48 WBC RBC Hgb Hct MCV MCH MCHC RDW Plt Count Seg Neuts % (Manual) Lymphocytes % (Manual) Monocytes % (Manual) Nucleated RBC % Seg Neutrophils # Man Lymphocytes # (Manual) PT INR APTT D-Dimer ABG pH POC ABG pCO2 POC ABG pO2 ABG pO2 ABG HCO3 ABG O2 Saturation ABG Base Excess ABG Hemoglobin ABG Oxyhemoglobin ABG Sodium ABG Potassium ABG Chloride ABG Glucose VBG pH Carboxyhemoglobin Sodium 151 H Potassium 5.1 H Chloride 113.2 H Carbon Dioxide 17 L BUN 180 H Creatinine 4.3 H Glucose 114 H POC Glucose Lactic Acid Calcium Phosphorus Magnesium Ferritin 2000.0 H AST ALT Ammonia 22.0 L Lactate Dehydrogenase 577 H Troponin T C-Reactive Protein 8.80 H Total Protein 9.4 H Albumin 3.0 L Triglycerides LDL Cholesterol Direct HDL Cholesterol Arterial Blood Glucose Arterial Blood Ionized Calcium Urine WBC (Auto) Urine Creatinine Vancomycin Trough Crossmatch 05/23/21 05/24/21 05/24/21 21:06 02:09 02:09 WBC RBC Hgb Hct MCV MCH MCHC RDW Plt Count Seg Neuts % (Manual) Lymphocytes % (Manual) Monocytes % (Manual) Nucleated RBC % Seg Neutrophils # Man Lymphocytes # (Manual) PT INR APTT D-Dimer ABG pH POC ABG pCO2 POC ABG pO2 ABG pO2 ABG HCO3 ABG O2 Saturation ABG Base Excess ABG Hemoglobin ABG Oxyhemoglobin ABG Sodium ABG Potassium ABG Chloride ABG Glucose VBG pH 7.254 L Carboxyhemoglobin Sodium Potassium Chloride Carbon Dioxide BUN Creatinine Glucose POC Glucose Lactic Acid 2.10 H* 2.30 H* Calcium Phosphorus Magnesium Ferritin AST ALT Ammonia Lactate Dehydrogenase Troponin T C-Reactive Protein Total Protein Albumin Triglycerides LDL Cholesterol Direct HDL Cholesterol Arterial Blood Glucose Arterial Blood Ionized Calcium Urine WBC (Auto) Urine Creatinine Vancomycin Trough Crossmatch 05/24/21 05/24/21 05/24/21 13:11 17:34 18:12 WBC RBC Hgb Hct MCV MCH MCHC RDW Plt Count Seg Neuts % (Manual) Lymphocytes % (Manual) Monocytes % (Manual) Nucleated RBC % Seg Neutrophils # Man Lymphocytes # (Manual) PT INR APTT D-Dimer ABG pH POC ABG pCO2 POC ABG pO2 ABG pO2 ABG HCO3 ABG O2 Saturation ABG Base Excess ABG Hemoglobin ABG Oxyhemoglobin ABG Sodium ABG Potassium ABG Chloride ABG Glucose VBG pH Carboxyhemoglobin Sodium 155 H Potassium 6.9 H* D 5.7 H Chloride 121.9 H Carbon Dioxide 20 L BUN 139 H Creatinine 2.7 H Glucose 139 H POC Glucose 153 H Lactic Acid Calcium Phosphorus Magnesium Ferritin AST ALT Ammonia Lactate Dehydrogenase Troponin T C-Reactive Protein Total Protein Albumin Triglycerides LDL Cholesterol Direct HDL Cholesterol Arterial Blood Glucose Arterial Blood Ionized Calcium Urine WBC (Auto) Urine Creatinine Vancomycin Trough Crossmatch 05/25/21 05/25/21 05/26/21 11:33 11:33 03:15 WBC 13.8 H RBC 5.06 H Hgb Hct MCV MCH MCHC RDW Plt Count Seg Neuts % (Manual) Lymphocytes % (Manual) Monocytes % (Manual) Nucleated RBC % Seg Neutrophils # Man Lymphocytes # (Manual) PT INR APTT D-Dimer ABG pH POC ABG pCO2 POC ABG pO2 ABG pO2 ABG HCO3 ABG O2 Saturation ABG Base Excess ABG Hemoglobin ABG Oxyhemoglobin ABG Sodium ABG Potassium ABG Chloride ABG Glucose VBG pH Carboxyhemoglobin Sodium 164 H* D 166 H* Potassium 5.4 H 5.5 H Chloride 131.3 H 129.2 H Carbon Dioxide BUN 109 H 102 H Creatinine 1.9 H 1.8 H Glucose 117 H 113 H POC Glucose Lactic Acid Calcium Phosphorus Magnesium Ferritin AST ALT Ammonia Lactate Dehydrogenase 711 H Troponin T C-Reactive Protein 7.90 H Total Protein Albumin Triglycerides LDL Cholesterol Direct HDL Cholesterol Arterial Blood Glucose Arterial Blood Ionized Calcium Urine WBC (Auto) Urine Creatinine Vancomycin Trough Crossmatch 05/26/21 05/26/21 05/26/21 03:15 03:15 03:15 WBC 13.1 H RBC 5.43 H Hgb 15.3 H Hct 48.5 H MCV MCH MCHC RDW 15.4 H Plt Count Seg Neuts % (Manual) Lymphocytes % (Manual) Monocytes % (Manual) Nucleated RBC % Seg Neutrophils # Man Lymphocytes # (Manual) PT INR APTT D-Dimer 6229.14 H ABG pH POC ABG pCO2 POC ABG pO2 ABG pO2 ABG HCO3 ABG O2 Saturation ABG Base Excess ABG Hemoglobin ABG Oxyhemoglobin ABG Sodium ABG Potassium ABG Chloride ABG Glucose VBG pH Carboxyhemoglobin Sodium Potassium Chloride Carbon Dioxide BUN Creatinine Glucose POC Glucose Lactic Acid Calcium Phosphorus Magnesium Ferritin 2991.0 H AST ALT Ammonia Lactate Dehydrogenase Troponin T C-Reactive Protein Total Protein Albumin Triglycerides LDL Cholesterol Direct HDL Cholesterol Arterial Blood Glucose Arterial Blood Ionized Calcium Urine WBC (Auto) Urine Creatinine Vancomycin Trough Crossmatch 05/27/21 05/27/21 05/27/21 08:09 08:09 08:09 WBC 12.4 H RBC 5.27 H Hgb Hct 46.6 H MCV MCH MCHC 31 L RDW 15.7 H Plt Count Seg Neuts % (Manual) Lymphocytes % (Manual) Monocytes % (Manual) Nucleated RBC % Seg Neutrophils # Man Lymphocytes # (Manual) PT INR APTT D-Dimer 3584.01 H ABG pH POC ABG pCO2 POC ABG pO2 ABG pO2 ABG HCO3 ABG O2 Saturation ABG Base Excess ABG Hemoglobin ABG Oxyhemoglobin ABG Sodium ABG Potassium ABG Chloride ABG Glucose VBG pH Carboxyhemoglobin Sodium 174 H* Potassium Chloride 136.9 H Carbon Dioxide BUN 90 H Creatinine 1.8 H Glucose POC Glucose Lactic Acid Calcium Phosphorus Magnesium Ferritin AST ALT Ammonia Lactate Dehydrogenase 642 H Troponin T C-Reactive Protein 5.20 H Total Protein Albumin Triglycerides LDL Cholesterol Direct HDL Cholesterol Arterial Blood Glucose Arterial Blood Ionized Calcium Urine WBC (Auto) Urine Creatinine Vancomycin Trough Crossmatch 05/27/21 05/28/21 05/28/21 08:09 07:31 07:31 WBC RBC Hgb Hct MCV MCH 27 L MCHC 31 L RDW Plt Count Seg Neuts % (Manual) 88.0 H Lymphocytes % (Manual) 11.0 L Monocytes % (Manual) Nucleated RBC % Seg Neutrophils # Man 8.3 H Lymphocytes # (Manual) 1.0 L PT INR APTT D-Dimer ABG pH POC ABG pCO2 POC ABG pO2 ABG pO2 ABG HCO3 ABG O2 Saturation ABG Base Excess ABG Hemoglobin ABG Oxyhemoglobin ABG Sodium ABG Potassium ABG Chloride ABG Glucose VBG pH Carboxyhemoglobin Sodium 162 H* D Potassium Chloride 125.8 H Carbon Dioxide BUN 72 H Creatinine 1.6 H Glucose 131 H POC Glucose Lactic Acid Calcium Phosphorus Magnesium 3.00 H Ferritin 2742.0 H AST ALT Ammonia Lactate Dehydrogenase Troponin T C-Reactive Protein Total Protein Albumin Triglycerides LDL Cholesterol Direct HDL Cholesterol Arterial Blood Glucose Arterial Blood Ionized Calcium Urine WBC (Auto) Urine Creatinine Vancomycin Trough Crossmatch 05/29/21 05/29/21 05/29/21 06:40 06:40 17:58 WBC 14.1 H RBC Hgb Hct MCV MCH 27 L MCHC 31 L RDW Plt Count Seg Neuts % (Manual) 85.0 H Lymphocytes % (Manual) 9.0 L Monocytes % (Manual) Nucleated RBC % 1.0 H Seg Neutrophils # Man 12.0 H Lymphocytes # (Manual) PT INR APTT D-Dimer ABG pH 7.505 H POC ABG pCO2 30.3 L POC ABG pO2 128.1 H ABG pO2 ABG HCO3 ABG O2 Saturation ABG Base Excess ABG Hemoglobin 11.9 L ABG Oxyhemoglobin ABG Sodium ABG Potassium ABG Chloride 113.0 H ABG Glucose 110 H VBG pH Carboxyhemoglobin Sodium 148 H D Potassium Chloride 111.3 H Carbon Dioxide 20 L BUN 45 H Creatinine Glucose POC Glucose Lactic Acid Calcium Phosphorus 2.10 L D Magnesium Ferritin AST ALT Ammonia Lactate Dehydrogenase Troponin T C-Reactive Protein Total Protein Albumin Triglycerides LDL Cholesterol Direct HDL Cholesterol Arterial Blood Glucose 110 H Arterial Blood Ionized Calcium 4.5 L Urine WBC (Auto) Urine Creatinine Vancomycin Trough Crossmatch 05/30/21 05/30/21 05/30/21 01:00 06:06 13:48 WBC RBC Hgb Hct MCV MCH MCHC RDW Plt Count Seg Neuts % (Manual) Lymphocytes % (Manual) Monocytes % (Manual) Nucleated RBC % Seg Neutrophils # Man Lymphocytes # (Manual) PT INR APTT D-Dimer ABG pH POC ABG pCO2 POC ABG pO2 ABG pO2 90.9 H ABG HCO3 ABG O2 Saturation ABG Base Excess ABG Hemoglobin 11.8 L ABG Oxyhemoglobin ABG Sodium ABG Potassium ABG Chloride ABG Glucose VBG pH Carboxyhemoglobin Sodium 150 H Potassium Chloride 117.6 H Carbon Dioxide BUN 40 H Creatinine Glucose POC Glucose Lactic Acid Calcium 8.3 L Phosphorus Magnesium Ferritin AST ALT Ammonia Lactate Dehydrogenase Troponin T C-Reactive Protein Total Protein Albumin Triglycerides LDL Cholesterol Direct HDL Cholesterol Arterial Blood Glucose Arterial Blood Ionized Calcium Urine WBC (Auto) 12.0 H Urine Creatinine Vancomycin Trough Crossmatch 05/30/21 05/31/21 05/31/21 22:32 02:22 02:22 WBC RBC Hgb 11.2 L Hct 34.8 L MCV MCH MCHC RDW Plt Count 127 L Seg Neuts % (Manual) 97.0 H Lymphocytes % (Manual) Monocytes % (Manual) Nucleated RBC % Seg Neutrophils # Man 10.5 H Lymphocytes # (Manual) 0.0 L PT INR APTT D-Dimer ABG pH 7.454 H POC ABG pCO2 POC ABG pO2 ABG pO2 141.8 H ABG HCO3 19.9 L ABG O2 Saturation ABG Base Excess -2.7 L ABG Hemoglobin ABG Oxyhemoglobin ABG Sodium ABG Potassium ABG Chloride ABG Glucose VBG pH Carboxyhemoglobin Sodium 152 H Potassium Chloride 118.9 H Carbon Dioxide 19 L BUN 48 H Creatinine 1.5 H Glucose 101 H POC Glucose Lactic Acid Calcium 8.3 L Phosphorus Magnesium Ferritin AST ALT Ammonia Lactate Dehydrogenase Troponin T C-Reactive Protein Total Protein Albumin Triglycerides LDL Cholesterol Direct HDL Cholesterol Arterial Blood Glucose Arterial Blood Ionized Calcium Urine WBC (Auto) Urine Creatinine Vancomycin Trough Crossmatch 05/31/21 05/31/21 06/01/21 11:42 21:28 07:10 WBC RBC Hgb Hct MCV MCH MCHC RDW Plt Count Seg Neuts % (Manual) Lymphocytes % (Manual) Monocytes % (Manual) Nucleated RBC % Seg Neutrophils # Man Lymphocytes # (Manual) PT INR APTT D-Dimer ABG pH POC ABG pCO2 POC ABG pO2 ABG pO2 ABG HCO3 ABG O2 Saturation ABG Base Excess ABG Hemoglobin ABG Oxyhemoglobin ABG Sodium ABG Potassium ABG Chloride ABG Glucose VBG pH Carboxyhemoglobin Sodium 150 H Potassium Chloride 115.7 H Carbon Dioxide BUN 47 H Creatinine Glucose 115 H POC Glucose 161 H Lactic Acid Calcium Phosphorus Magnesium 2.50 H Ferritin AST ALT Ammonia Lactate Dehydrogenase Troponin T C-Reactive Protein Total Protein Albumin Triglycerides LDL Cholesterol Direct HDL Cholesterol Arterial Blood Glucose Arterial Blood Ionized Calcium Urine WBC (Auto) Urine Creatinine Vancomycin Trough 20.2 H Crossmatch 06/01/21 06/01/21 06/01/21 07:10 07:54 10:39 WBC RBC Hgb 10.7 L Hct 33.5 L MCV MCH MCHC RDW Plt Count Seg Neuts % (Manual) 92.0 H Lymphocytes % (Manual) 4.0 L Monocytes % (Manual) Nucleated RBC % Seg Neutrophils # Man Lymphocytes # (Manual) 0.3 L PT INR APTT D-Dimer ABG pH POC ABG pCO2 POC ABG pO2 ABG pO2 ABG HCO3 ABG O2 Saturation ABG Base Excess ABG Hemoglobin ABG Oxyhemoglobin ABG Sodium ABG Potassium ABG Chloride ABG Glucose VBG pH Carboxyhemoglobin Sodium 152 H Potassium Chloride 117.6 H Carbon Dioxide BUN 50 H Creatinine Glucose 140 H POC Glucose 127 H Lactic Acid Calcium 8.3 L Phosphorus Magnesium Ferritin AST ALT Ammonia Lactate Dehydrogenase Troponin T C-Reactive Protein Total Protein Albumin Triglycerides LDL Cholesterol Direct HDL Cholesterol Arterial Blood Glucose Arterial Blood Ionized Calcium Urine WBC (Auto) Urine Creatinine Vancomycin Trough Crossmatch 06/01/21 06/01/21 06/01/21 11:11 16:16 21:45 WBC RBC Hgb Hct MCV MCH MCHC RDW Plt Count Seg Neuts % (Manual) Lymphocytes % (Manual) Monocytes % (Manual) Nucleated RBC % Seg Neutrophils # Man Lymphocytes # (Manual) PT INR APTT D-Dimer ABG pH POC ABG pCO2 POC ABG pO2 ABG pO2 ABG HCO3 ABG O2 Saturation ABG Base Excess ABG Hemoglobin ABG Oxyhemoglobin ABG Sodium ABG Potassium ABG Chloride ABG Glucose VBG pH Carboxyhemoglobin Sodium Potassium Chloride Carbon Dioxide BUN Creatinine Glucose POC Glucose 120 H 129 H 150 H Lactic Acid Calcium Phosphorus Magnesium Ferritin AST ALT Ammonia Lactate Dehydrogenase Troponin T C-Reactive Protein Total Protein Albumin Triglycerides LDL Cholesterol Direct HDL Cholesterol Arterial Blood Glucose Arterial Blood Ionized Calcium Urine WBC (Auto) Urine Creatinine Vancomycin Trough Crossmatch 06/02/21 06/02/21 06/02/21 06:53 06:53 07:52 WBC RBC Hgb 10.4 L Hct 32.4 L MCV MCH 27 L MCHC RDW Plt Count Seg Neuts % (Manual) 93.0 H Lymphocytes % (Manual) 3.0 L Monocytes % (Manual) Nucleated RBC % Seg Neutrophils # Man Lymphocytes # (Manual) 0.2 L PT INR APTT D-Dimer ABG pH POC ABG pCO2 POC ABG pO2 ABG pO2 ABG HCO3 ABG O2 Saturation ABG Base Excess ABG Hemoglobin ABG Oxyhemoglobin ABG Sodium ABG Potassium ABG Chloride ABG Glucose VBG pH Carboxyhemoglobin Sodium 149 H Potassium Chloride 112.6 H Carbon Dioxide BUN 54 H Creatinine Glucose 123 H POC Glucose 116 H Lactic Acid Calcium 8.2 L Phosphorus Magnesium Ferritin AST ALT Ammonia Lactate Dehydrogenase Troponin T C-Reactive Protein Total Protein Albumin Triglycerides LDL Cholesterol Direct HDL Cholesterol Arterial Blood Glucose Arterial Blood Ionized Calcium Urine WBC (Auto) Urine Creatinine Vancomycin Trough Crossmatch 06/03/21 06/03/21 06/03/21 05:57 05:57 21:23 WBC RBC Hgb 10.7 L Hct 33.0 L MCV 83 L MCH 27 L MCHC RDW Plt Count Seg Neuts % (Manual) 88.0 H Lymphocytes % (Manual) 8.0 L Monocytes % (Manual) Nucleated RBC % 2.0 H Seg Neutrophils # Man Lymphocytes # (Manual) 0.6 L PT INR APTT D-Dimer ABG pH POC ABG pCO2 POC ABG pO2 39.0 L ABG pO2 ABG HCO3 ABG O2 Saturation ABG Base Excess ABG Hemoglobin ABG Oxyhemoglobin 69.1 L ABG Sodium 134.1 L ABG Potassium ABG Chloride ABG Glucose 135 H VBG pH Carboxyhemoglobin Sodium Potassium Chloride Carbon Dioxide BUN 36 H Creatinine Glucose 102 H POC Glucose Lactic Acid Calcium 8.0 L Phosphorus 2.20 L D Magnesium Ferritin AST ALT Ammonia Lactate Dehydrogenase Troponin T C-Reactive Protein Total Protein Albumin Triglycerides LDL Cholesterol Direct HDL Cholesterol Arterial Blood Glucose 135 H Arterial Blood Ionized Calcium Urine WBC (Auto) Urine Creatinine Vancomycin Trough Crossmatch 06/04/21 06/04/21 06/04/21 07:04 07:04 17:42 WBC RBC Hgb 11.3 L Hct 34.9 L MCV MCH 27 L MCHC RDW Plt Count Seg Neuts % (Manual) Lymphocytes % (Manual) 5.0 L Monocytes % (Manual) Nucleated RBC % Seg Neutrophils # Man 8.4 H Lymphocytes # (Manual) 0.5 L PT INR APTT D-Dimer ABG pH POC ABG pCO2 POC ABG pO2 ABG pO2 ABG HCO3 ABG O2 Saturation ABG Base Excess ABG Hemoglobin ABG Oxyhemoglobin ABG Sodium ABG Potassium ABG Chloride ABG Glucose VBG pH Carboxyhemoglobin Sodium Potassium Chloride Carbon Dioxide BUN 27 H Creatinine Glucose POC Glucose 136 H Lactic Acid Calcium 8.2 L Phosphorus Magnesium Ferritin AST ALT Ammonia Lactate Dehydrogenase Troponin T C-Reactive Protein Total Protein Albumin Triglycerides LDL Cholesterol Direct HDL Cholesterol Arterial Blood Glucose Arterial Blood Ionized Calcium Urine WBC (Auto) Urine Creatinine Vancomycin Trough Crossmatch 06/05/21 06/05/21 06/05/21 05:10 12:32 15:45 WBC RBC Hgb Hct MCV MCH MCHC RDW Plt Count Seg Neuts % (Manual) Lymphocytes % (Manual) Monocytes % (Manual) Nucleated RBC % Seg Neutrophils # Man Lymphocytes # (Manual) PT INR APTT D-Dimer ABG pH POC ABG pCO2 POC ABG pO2 ABG pO2 ABG HCO3 ABG O2 Saturation ABG Base Excess ABG Hemoglobin ABG Oxyhemoglobin ABG Sodium ABG Potassium ABG Chloride ABG Glucose VBG pH Carboxyhemoglobin Sodium Potassium 3.5 L Chloride Carbon Dioxide BUN 35 H Creatinine Glucose 130 H POC Glucose 122 H 119 H Lactic Acid Calcium 8.2 L Phosphorus Magnesium Ferritin AST ALT Ammonia Lactate Dehydrogenase Troponin T C-Reactive Protein Total Protein Albumin Triglycerides LDL Cholesterol Direct HDL Cholesterol Arterial Blood Glucose Arterial Blood Ionized Calcium Urine WBC (Auto) Urine Creatinine Vancomycin Trough Crossmatch 06/05/21 06/05/21 06/06/21 20:06 21:27 00:04 WBC RBC Hgb Hct MCV MCH MCHC RDW Plt Count Seg Neuts % (Manual) Lymphocytes % (Manual) Monocytes % (Manual) Nucleated RBC % Seg Neutrophils # Man Lymphocytes # (Manual) PT INR APTT D-Dimer ABG pH 7.456 H POC ABG pCO2 POC ABG pO2 ABG pO2 ABG HCO3 ABG O2 Saturation ABG Base Excess ABG Hemoglobin 10.3 L ABG Oxyhemoglobin ABG Sodium ABG Potassium 3.1 L ABG Chloride ABG Glucose 125 H VBG pH Carboxyhemoglobin 0.3 L Sodium Potassium Chloride Carbon Dioxide BUN Creatinine Glucose POC Glucose 113 H Lactic Acid Calcium Phosphorus Magnesium Ferritin AST ALT Ammonia Lactate Dehydrogenase Troponin T C-Reactive Protein 19.60 H Total Protein Albumin Triglycerides LDL Cholesterol Direct HDL Cholesterol Arterial Blood Glucose 125 H Arterial Blood Ionized Calcium Urine WBC (Auto) Urine Creatinine Vancomycin Trough Crossmatch 06/06/21 06/06/21 06/07/21 04:35 22:37 05:54 WBC RBC Hgb Hct MCV MCH MCHC RDW Plt Count Seg Neuts % (Manual) Lymphocytes % (Manual) Monocytes % (Manual) Nucleated RBC % Seg Neutrophils # Man Lymphocytes # (Manual) PT INR APTT D-Dimer ABG pH POC ABG pCO2 POC ABG pO2 ABG pO2 ABG HCO3 ABG O2 Saturation ABG Base Excess ABG Hemoglobin ABG Oxyhemoglobin ABG Sodium ABG Potassium ABG Chloride ABG Glucose VBG pH Carboxyhemoglobin Sodium Potassium Chloride Carbon Dioxide BUN 43 H Creatinine Glucose POC Glucose 114 H 130 H Lactic Acid Calcium 7.6 L Phosphorus Magnesium Ferritin AST ALT Ammonia Lactate Dehydrogenase Troponin T C-Reactive Protein Total Protein Albumin Triglycerides LDL Cholesterol Direct HDL Cholesterol Arterial Blood Glucose Arterial Blood Ionized Calcium Urine WBC (Auto) Urine Creatinine Vancomycin Trough Crossmatch 06/07/21 06/07/21 06/07/21 07:32 10:03 11:36 WBC RBC 3.63 L Hgb 9.8 L Hct 30.3 L MCV 83 L MCH 27 L MCHC RDW Plt Count Seg Neuts % (Manual) Lymphocytes % (Manual) Monocytes % (Manual) Nucleated RBC % Seg Neutrophils # Man Lymphocytes # (Manual) PT INR APTT D-Dimer ABG pH POC ABG pCO2 POC ABG pO2 ABG pO2 ABG HCO3 ABG O2 Saturation ABG Base Excess ABG Hemoglobin ABG Oxyhemoglobin ABG Sodium ABG Potassium ABG Chloride ABG Glucose VBG pH Carboxyhemoglobin Sodium Potassium 3.2 L Chloride 108.5 H Carbon Dioxide BUN 36 H Creatinine Glucose 139 H POC Glucose 125 H Lactic Acid Calcium 8.0 L Phosphorus Magnesium Ferritin AST ALT Ammonia Lactate Dehydrogenase Troponin T C-Reactive Protein Total Protein Albumin Triglycerides LDL Cholesterol Direct HDL Cholesterol Arterial Blood Glucose Arterial Blood Ionized Calcium Urine WBC (Auto) Urine Creatinine Vancomycin Trough Crossmatch 06/07/21 06/07/21 06/08/21 17:54 22:14 07:18 WBC RBC Hgb Hct MCV MCH MCHC RDW Plt Count Seg Neuts % (Manual) Lymphocytes % (Manual) Monocytes % (Manual) Nucleated RBC % Seg Neutrophils # Man Lymphocytes # (Manual) PT INR APTT D-Dimer ABG pH POC ABG pCO2 POC ABG pO2 ABG pO2 ABG HCO3 ABG O2 Saturation ABG Base Excess ABG Hemoglobin ABG Oxyhemoglobin ABG Sodium ABG Potassium ABG Chloride ABG Glucose VBG pH Carboxyhemoglobin Sodium 149 H Potassium Chloride 110.2 H Carbon Dioxide BUN 31 H Creatinine Glucose 131 H POC Glucose 121 H 131 H Lactic Acid Calcium 8.1 L Phosphorus Magnesium Ferritin AST ALT Ammonia Lactate Dehydrogenase Troponin T C-Reactive Protein Total Protein Albumin Triglycerides LDL Cholesterol Direct HDL Cholesterol Arterial Blood Glucose Arterial Blood Ionized Calcium Urine WBC (Auto) Urine Creatinine Vancomycin Trough Crossmatch 06/08/21 06/08/21 06/08/21 07:45 12:07 18:02 WBC RBC Hgb Hct MCV MCH MCHC RDW Plt Count Seg Neuts % (Manual) Lymphocytes % (Manual) Monocytes % (Manual) Nucleated RBC % Seg Neutrophils # Man Lymphocytes # (Manual) PT INR APTT D-Dimer ABG pH POC ABG pCO2 POC ABG pO2 ABG pO2 ABG HCO3 ABG O2 Saturation ABG Base Excess ABG Hemoglobin ABG Oxyhemoglobin ABG Sodium ABG Potassium ABG Chloride ABG Glucose VBG pH Carboxyhemoglobin Sodium Potassium Chloride Carbon Dioxide BUN Creatinine Glucose POC Glucose 120 H 127 H 148 H Lactic Acid Calcium Phosphorus Magnesium Ferritin AST ALT Ammonia Lactate Dehydrogenase Troponin T C-Reactive Protein Total Protein Albumin Triglycerides LDL Cholesterol Direct HDL Cholesterol Arterial Blood Glucose Arterial Blood Ionized Calcium Urine WBC (Auto) Urine Creatinine Vancomycin Trough Crossmatch 06/09/21 06/09/21 06/09/21 05:51 05:51 11:37 WBC 3.9 L RBC 3.38 L Hgb 9.4 L Hct 28.5 L MCV MCH MCHC RDW Plt Count Seg Neuts % (Manual) Lymphocytes % (Manual) Monocytes % (Manual) Nucleated RBC % Seg Neutrophils # Man Lymphocytes # (Manual) PT INR APTT D-Dimer ABG pH POC ABG pCO2 POC ABG pO2 ABG pO2 ABG HCO3 ABG O2 Saturation ABG Base Excess ABG Hemoglobin ABG Oxyhemoglobin ABG Sodium ABG Potassium ABG Chloride ABG Glucose VBG pH Carboxyhemoglobin Sodium Potassium Chloride 108.4 H Carbon Dioxide BUN 32 H Creatinine Glucose 137 H POC Glucose 115 H Lactic Acid Calcium 7.5 L Phosphorus Magnesium Ferritin AST 55 H ALT Ammonia Lactate Dehydrogenase Troponin T C-Reactive Protein 4.10 H Total Protein 5.6 L Albumin 2.0 L Triglycerides LDL Cholesterol Direct HDL Cholesterol Arterial Blood Glucose Arterial Blood Ionized Calcium Urine WBC (Auto) Urine Creatinine Vancomycin Trough Crossmatch 06/09/21 06/09/21 06/10/21 17:32 22:18 01:52 WBC RBC 3.62 L Hgb 9.9 L Hct 29.8 L MCV 82 L MCH 27 L MCHC RDW Plt Count Seg Neuts % (Manual) Lymphocytes % (Manual) Monocytes % (Manual) Nucleated RBC % Seg Neutrophils # Man Lymphocytes # (Manual) PT INR APTT D-Dimer ABG pH POC ABG pCO2 POC ABG pO2 ABG pO2 ABG HCO3 ABG O2 Saturation ABG Base Excess ABG Hemoglobin ABG Oxyhemoglobin ABG Sodium ABG Potassium ABG Chloride ABG Glucose VBG pH Carboxyhemoglobin Sodium Potassium Chloride Carbon Dioxide BUN Creatinine Glucose POC Glucose 113 H 110 H Lactic Acid Calcium Phosphorus Magnesium Ferritin AST ALT Ammonia Lactate Dehydrogenase Troponin T C-Reactive Protein Total Protein Albumin Triglycerides LDL Cholesterol Direct HDL Cholesterol Arterial Blood Glucose Arterial Blood Ionized Calcium Urine WBC (Auto) Urine Creatinine Vancomycin Trough Crossmatch 06/10/21 06/10/21 06/10/21 01:52 16:14 22:45 WBC RBC Hgb Hct MCV MCH MCHC RDW Plt Count Seg Neuts % (Manual) Lymphocytes % (Manual) Monocytes % (Manual) Nucleated RBC % Seg Neutrophils # Man Lymphocytes # (Manual) PT INR APTT D-Dimer ABG pH POC ABG pCO2 POC ABG pO2 ABG pO2 ABG HCO3 ABG O2 Saturation ABG Base Excess ABG Hemoglobin ABG Oxyhemoglobin ABG Sodium ABG Potassium ABG Chloride ABG Glucose VBG pH Carboxyhemoglobin Sodium Potassium Chloride 108.2 H Carbon Dioxide BUN 32 H Creatinine 1.4 H Glucose POC Glucose 111 H 107 H Lactic Acid Calcium 7.8 L Phosphorus Magnesium Ferritin AST 55 H ALT Ammonia Lactate Dehydrogenase Troponin T C-Reactive Protein Total Protein 5.6 L Albumin 1.9 L Triglycerides LDL Cholesterol Direct HDL Cholesterol Arterial Blood Glucose Arterial Blood Ionized Calcium Urine WBC (Auto) Urine Creatinine Vancomycin Trough Crossmatch 06/11/21 06/11/21 06/11/21 05:51 05:51 05:51 WBC RBC 3.35 L Hgb 9.1 L Hct 28.1 L MCV MCH 27 L MCHC RDW Plt Count 117 L Seg Neuts % (Manual) 93.0 H Lymphocytes % (Manual) 1.0 L Monocytes % (Manual) Nucleated RBC % Seg Neutrophils # Man Lymphocytes # (Manual) 0.0 L PT INR APTT D-Dimer ABG pH POC ABG pCO2 POC ABG pO2 ABG pO2 ABG HCO3 ABG O2 Saturation ABG Base Excess ABG Hemoglobin ABG Oxyhemoglobin ABG Sodium ABG Potassium ABG Chloride ABG Glucose VBG pH Carboxyhemoglobin Sodium 146 H Potassium Chloride 110.9 H Carbon Dioxide BUN 40 H Creatinine Glucose 119 H POC Glucose Lactic Acid Calcium 7.8 L Phosphorus Magnesium Ferritin AST ALT Ammonia Lactate Dehydrogenase Troponin T C-Reactive Protein Total Protein Albumin Triglycerides LDL Cholesterol Direct HDL Cholesterol Arterial Blood Glucose Arterial Blood Ionized Calcium Urine WBC (Auto) Urine Creatinine Vancomycin Trough 22.6 H Crossmatch 06/11/21 06/11/21 06/11/21 08:28 11:36 15:47 WBC RBC Hgb Hct MCV MCH MCHC RDW Plt Count Seg Neuts % (Manual) Lymphocytes % (Manual) Monocytes % (Manual) Nucleated RBC % Seg Neutrophils # Man Lymphocytes # (Manual) PT INR APTT D-Dimer ABG pH POC ABG pCO2 POC ABG pO2 ABG pO2 ABG HCO3 ABG O2 Saturation ABG Base Excess ABG Hemoglobin ABG Oxyhemoglobin ABG Sodium ABG Potassium ABG Chloride ABG Glucose VBG pH Carboxyhemoglobin Sodium Potassium Chloride Carbon Dioxide BUN Creatinine Glucose POC Glucose 109 H 149 H 139 H Lactic Acid Calcium Phosphorus Magnesium Ferritin AST ALT Ammonia Lactate Dehydrogenase Troponin T C-Reactive Protein Total Protein Albumin Triglycerides LDL Cholesterol Direct HDL Cholesterol Arterial Blood Glucose Arterial Blood Ionized Calcium Urine WBC (Auto) Urine Creatinine Vancomycin Trough Crossmatch 06/11/21 06/12/21 06/12/21 21:42 04:00 04:00 WBC 4.0 L RBC 3.50 L Hgb 9.4 L Hct 29.9 L MCV MCH 27 L MCHC 31 L RDW 15.3 H Plt Count 126 L Seg Neuts % (Manual) 88.0 H Lymphocytes % (Manual) Monocytes % (Manual) 12.0 H Nucleated RBC % Seg Neutrophils # Man Lymphocytes # (Manual) 0.0 L PT INR APTT D-Dimer ABG pH POC ABG pCO2 POC ABG pO2 ABG pO2 ABG HCO3 ABG O2 Saturation ABG Base Excess ABG Hemoglobin ABG Oxyhemoglobin ABG Sodium ABG Potassium ABG Chloride ABG Glucose VBG pH Carboxyhemoglobin Sodium 149 H Potassium Chloride 114.1 H Carbon Dioxide BUN 37 H Creatinine Glucose 137 H POC Glucose 124 H Lactic Acid Calcium 8.0 L Phosphorus Magnesium Ferritin AST ALT Ammonia Lactate Dehydrogenase Troponin T C-Reactive Protein Total Protein Albumin Triglycerides LDL Cholesterol Direct HDL Cholesterol Arterial Blood Glucose Arterial Blood Ionized Calcium Urine WBC (Auto) Urine Creatinine Vancomycin Trough Crossmatch 06/12/21 06/13/21 06/13/21 06:37 00:14 06:05 WBC 4.3 L RBC 3.39 L Hgb 9.2 L Hct 28.6 L MCV MCH 27 L MCHC RDW 15.3 H Plt Count 107 L Seg Neuts % (Manual) 77.0 H Lymphocytes % (Manual) 1.0 L Monocytes % (Manual) Nucleated RBC % 1.0 H Seg Neutrophils # Man Lymphocytes # (Manual) 0.0 L PT INR APTT D-Dimer ABG pH POC ABG pCO2 POC ABG pO2 ABG pO2 ABG HCO3 ABG O2 Saturation ABG Base Excess ABG Hemoglobin ABG Oxyhemoglobin ABG Sodium ABG Potassium ABG Chloride ABG Glucose VBG pH Carboxyhemoglobin Sodium Potassium Chloride Carbon Dioxide BUN Creatinine Glucose POC Glucose 128 H 149 H Lactic Acid Calcium Phosphorus Magnesium Ferritin AST ALT Ammonia Lactate Dehydrogenase Troponin T C-Reactive Protein Total Protein Albumin Triglycerides LDL Cholesterol Direct HDL Cholesterol Arterial Blood Glucose Arterial Blood Ionized Calcium Urine WBC (Auto) Urine Creatinine Vancomycin Trough Crossmatch 06/13/21 06/13/21 06/14/21 06:05 11:51 04:29 WBC 4.2 L RBC 3.21 L Hgb 8.7 L Hct 26.7 L MCV 83 L MCH 27 L MCHC RDW 15.3 H Plt Count 87 L Seg Neuts % (Manual) 96 H Lymphocytes % (Manual) 2 L Monocytes % (Manual) Nucleated RBC % Seg Neutrophils # Man Lymphocytes # (Manual) 0.0 L PT INR APTT D-Dimer ABG pH POC ABG pCO2 POC ABG pO2 48.3 L ABG pO2 ABG HCO3 ABG O2 Saturation ABG Base Excess ABG Hemoglobin 10.7 L ABG Oxyhemoglobin 84.1 L ABG Sodium 145.5 H ABG Potassium ABG Chloride 116.0 H ABG Glucose VBG pH Carboxyhemoglobin Sodium 146 H Potassium 3.5 L Chloride 112.3 H Carbon Dioxide BUN 38 H Creatinine Glucose 112 H POC Glucose Lactic Acid Calcium 8.1 L Phosphorus Magnesium Ferritin AST ALT Ammonia Lactate Dehydrogenase Troponin T C-Reactive Protein Total Protein Albumin Triglycerides LDL Cholesterol Direct HDL Cholesterol Arterial Blood Glucose Arterial Blood Ionized Calcium Urine WBC (Auto) Urine Creatinine Vancomycin Trough Crossmatch 06/14/21 06/14/21 06/14/21 04:29 06:17 23:51 WBC RBC Hgb Hct MCV MCH MCHC RDW Plt Count Seg Neuts % (Manual) Lymphocytes % (Manual) Monocytes % (Manual) Nucleated RBC % Seg Neutrophils # Man Lymphocytes # (Manual) PT INR APTT D-Dimer ABG pH POC ABG pCO2 POC ABG pO2 ABG pO2 ABG HCO3 ABG O2 Saturation ABG Base Excess ABG Hemoglobin ABG Oxyhemoglobin ABG Sodium ABG Potassium ABG Chloride ABG Glucose VBG pH Carboxyhemoglobin Sodium 148 H Potassium Chloride 115.3 H Carbon Dioxide BUN 40 H Creatinine Glucose 124 H POC Glucose 106 H 135 H Lactic Acid Calcium 8.2 L Phosphorus Magnesium Ferritin AST ALT Ammonia Lactate Dehydrogenase Troponin T C-Reactive Protein Total Protein Albumin Triglycerides LDL Cholesterol Direct HDL Cholesterol Arterial Blood Glucose Arterial Blood Ionized Calcium Urine WBC (Auto) Urine Creatinine Vancomycin Trough Crossmatch 06/15/21 06/15/21 06/15/21 05:23 05:53 05:53 WBC 3.8 L RBC 2.94 L Hgb 8.0 L Hct 24.0 L MCV 81 L MCH 27 L MCHC RDW 15.6 H Plt Count 87 L Seg Neuts % (Manual) 95.0 H Lymphocytes % (Manual) 1.0 L Monocytes % (Manual) Nucleated RBC % 1.0 H Seg Neutrophils # Man Lymphocytes # (Manual) 0.0 L PT INR APTT D-Dimer ABG pH POC ABG pCO2 POC ABG pO2 ABG pO2 ABG HCO3 ABG O2 Saturation ABG Base Excess ABG Hemoglobin ABG Oxyhemoglobin ABG Sodium ABG Potassium ABG Chloride ABG Glucose VBG pH Carboxyhemoglobin Sodium Potassium Chloride 110.5 H Carbon Dioxide BUN 43 H Creatinine Glucose 143 H POC Glucose 134 H Lactic Acid Calcium 8.1 L Phosphorus 2.10 L D Magnesium Ferritin AST ALT Ammonia Lactate Dehydrogenase Troponin T C-Reactive Protein Total Protein Albumin Triglycerides LDL Cholesterol Direct HDL Cholesterol Arterial Blood Glucose Arterial Blood Ionized Calcium Urine WBC (Auto) Urine Creatinine Vancomycin Trough Crossmatch 06/16/21 06/16/21 06/16/21 05:22 05:59 05:59 WBC 3.4 L RBC 3.34 L Hgb 9.0 L Hct 27.9 L MCV MCH 27 L MCHC RDW 15.5 H Plt Count 72 L Seg Neuts % (Manual) 97.0 H Lymphocytes % (Manual) Monocytes % (Manual) Nucleated RBC % Seg Neutrophils # Man Lymphocytes # (Manual) 0.0 L PT INR APTT D-Dimer ABG pH POC ABG pCO2 POC ABG pO2 ABG pO2 ABG HCO3 ABG O2 Saturation ABG Base Excess ABG Hemoglobin ABG Oxyhemoglobin ABG Sodium ABG Potassium ABG Chloride ABG Glucose VBG pH Carboxyhemoglobin Sodium Potassium Chloride 108.8 H Carbon Dioxide BUN 53 H Creatinine 1.4 H Glucose 160 H POC Glucose 141 H Lactic Acid Calcium 8.1 L Phosphorus Magnesium Ferritin AST ALT Ammonia Lactate Dehydrogenase Troponin T C-Reactive Protein Total Protein Albumin Triglycerides LDL Cholesterol Direct HDL Cholesterol Arterial Blood Glucose Arterial Blood Ionized Calcium Urine WBC (Auto) Urine Creatinine Vancomycin Trough Crossmatch 06/16/21 06/16/21 06/17/21 11:31 17:08 06:25 WBC 4.4 L RBC 3.14 L Hgb 8.5 L Hct 25.7 L MCV 82 L MCH 27 L MCHC RDW 15.7 H Plt Count 64 L Seg Neuts % (Manual) 95.0 H Lymphocytes % (Manual) Monocytes % (Manual) Nucleated RBC % Seg Neutrophils # Man Lymphocytes # (Manual) 0.0 L PT INR APTT D-Dimer ABG pH POC ABG pCO2 POC ABG pO2 ABG pO2 ABG HCO3 ABG O2 Saturation ABG Base Excess ABG Hemoglobin ABG Oxyhemoglobin ABG Sodium ABG Potassium ABG Chloride ABG Glucose VBG pH Carboxyhemoglobin Sodium Potassium Chloride Carbon Dioxide BUN Creatinine Glucose POC Glucose 129 H 136 H Lactic Acid Calcium Phosphorus Magnesium Ferritin AST ALT Ammonia Lactate Dehydrogenase Troponin T C-Reactive Protein Total Protein Albumin Triglycerides LDL Cholesterol Direct HDL Cholesterol Arterial Blood Glucose Arterial Blood Ionized Calcium Urine WBC (Auto) Urine Creatinine Vancomycin Trough Crossmatch 06/17/21 06/17/21 06/17/21 06:25 18:19 18:38 WBC RBC Hgb Hct MCV MCH MCHC RDW Plt Count Seg Neuts % (Manual) Lymphocytes % (Manual) Monocytes % (Manual) Nucleated RBC % Seg Neutrophils # Man Lymphocytes # (Manual) PT INR APTT D-Dimer ABG pH 7.184 L POC ABG pCO2 65.8 H POC ABG pO2 130.5 H ABG pO2 ABG HCO3 ABG O2 Saturation ABG Base Excess ABG Hemoglobin 10.2 L ABG Oxyhemoglobin ABG Sodium ABG Potassium ABG Chloride 108.0 H ABG Glucose 229 H VBG pH Carboxyhemoglobin Sodium Potassium Chloride Carbon Dioxide BUN 62 H Creatinine Glucose 135 H POC Glucose 206 H Lactic Acid Calcium 7.8 L Phosphorus Magnesium Ferritin AST ALT Ammonia Lactate Dehydrogenase Troponin T C-Reactive Protein Total Protein Albumin Triglycerides LDL Cholesterol Direct HDL Cholesterol Arterial Blood Glucose 229 H Arterial Blood Ionized Calcium Urine WBC (Auto) Urine Creatinine Vancomycin Trough Crossmatch 06/18/21 06/18/21 06/18/21 00:29 05:15 10:56 WBC RBC Hgb Hct MCV MCH MCHC RDW Plt Count Seg Neuts % (Manual) Lymphocytes % (Manual) Monocytes % (Manual) Nucleated RBC % Seg Neutrophils # Man Lymphocytes # (Manual) PT INR APTT D-Dimer ABG pH POC ABG pCO2 POC ABG pO2 ABG pO2 ABG HCO3 ABG O2 Saturation ABG Base Excess ABG Hemoglobin ABG Oxyhemoglobin ABG Sodium ABG Potassium ABG Chloride ABG Glucose VBG pH Carboxyhemoglobin Sodium Potassium Chloride Carbon Dioxide BUN Creatinine Glucose POC Glucose 142 H 152 H Lactic Acid Calcium Phosphorus 5.60 H D Magnesium Ferritin AST ALT Ammonia Lactate Dehydrogenase Troponin T C-Reactive Protein Total Protein Albumin Triglycerides LDL Cholesterol Direct HDL Cholesterol Arterial Blood Glucose Arterial Blood Ionized Calcium Urine WBC (Auto) Urine Creatinine Vancomycin Trough Crossmatch 06/18/21 06/18/21 06/18/21 15:02 15:02 15:02 WBC 4.4 L RBC 3.39 L Hgb 9.7 L Hct 28.4 L MCV MCH MCHC RDW 16.3 H Plt Count 65 L Seg Neuts % (Manual) Lymphocytes % (Manual) Monocytes % (Manual) Nucleated RBC % Seg Neutrophils # Man Lymphocytes # (Manual) PT 15.6 H INR APTT 41.2 H D-Dimer ABG pH POC ABG pCO2 POC ABG pO2 ABG pO2 ABG HCO3 ABG O2 Saturation ABG Base Excess ABG Hemoglobin ABG Oxyhemoglobin ABG Sodium ABG Potassium ABG Chloride ABG Glucose VBG pH Carboxyhemoglobin Sodium Potassium Chloride Carbon Dioxide BUN Creatinine 2.0 H Glucose POC Glucose Lactic Acid Calcium Phosphorus Magnesium Ferritin AST ALT Ammonia Lactate Dehydrogenase Troponin T C-Reactive Protein Total Protein Albumin Triglycerides LDL Cholesterol Direct HDL Cholesterol Arterial Blood Glucose Arterial Blood Ionized Calcium Urine WBC (Auto) Urine Creatinine Vancomycin Trough Crossmatch 06/18/21 06/18/21 06/18/21 Unknown Unknown Unknown WBC 4.0 L RBC 2.72 L Hgb 8.0 L Hct 24.0 L MCV MCH MCHC RDW 17.2 H Plt Count 60 L Seg Neuts % (Manual) Lymphocytes % (Manual) Monocytes % (Manual) Nucleated RBC % Seg Neutrophils # Man Lymphocytes # (Manual) PT INR APTT D-Dimer ABG pH POC ABG pCO2 POC ABG pO2 ABG pO2 ABG HCO3 ABG O2 Saturation ABG Base Excess ABG Hemoglobin ABG Oxyhemoglobin ABG Sodium ABG Potassium ABG Chloride ABG Glucose VBG pH Carboxyhemoglobin Sodium 134 L D Potassium 6.0 H D Chloride Carbon Dioxide BUN 80 H Creatinine 1.8 H Glucose 395 H POC Glucose Lactic Acid Calcium 6.9 L Phosphorus Magnesium Ferritin AST < 5 L ALT < 5 L Ammonia Lactate Dehydrogenase Troponin T C-Reactive Protein Total Protein 4.9 L Albumin 1.4 L Triglycerides LDL Cholesterol Direct HDL Cholesterol Arterial Blood Glucose Arterial Blood Ionized Calcium Urine WBC (Auto) 10.0 H Urine Creatinine Vancomycin Trough Crossmatch 06/19/21 06/19/21 06/19/21 02:41 04:53 05:37 WBC RBC Hgb Hct MCV MCH MCHC RDW Plt Count Seg Neuts % (Manual) Lymphocytes % (Manual) Monocytes % (Manual) Nucleated RBC % Seg Neutrophils # Man Lymphocytes # (Manual) PT INR APTT D-Dimer ABG pH 7.270 L POC ABG pCO2 49.0 H POC ABG pO2 ABG pO2 ABG HCO3 ABG O2 Saturation ABG Base Excess ABG Hemoglobin 8.8 L ABG Oxyhemoglobin ABG Sodium ABG Potassium ABG Chloride 111.0 H ABG Glucose 110 H VBG pH Carboxyhemoglobin Sodium Potassium Chloride Carbon Dioxide BUN 92 H Creatinine 3.2 H D Glucose 123 H POC Glucose 114 H Lactic Acid Calcium 7.4 L Phosphorus Magnesium Ferritin AST ALT Ammonia Lactate Dehydrogenase Troponin T C-Reactive Protein Total Protein Albumin Triglycerides LDL Cholesterol Direct HDL Cholesterol Arterial Blood Glucose 110 H Arterial Blood Ionized Calcium Urine WBC (Auto) Urine Creatinine Vancomycin Trough Crossmatch 06/19/21 06/19/21 06/19/21 08:55 09:37 09:41 WBC RBC 2.91 L Hgb 7.9 L Hct 24.4 L MCV MCH 27 L MCHC RDW 16.5 H Plt Count 64 L Seg Neuts % (Manual) Lymphocytes % (Manual) Monocytes % (Manual) Nucleated RBC % Seg Neutrophils # Man Lymphocytes # (Manual) PT 19.2 H INR 1.46 H APTT 54.3 H D-Dimer ABG pH POC ABG pCO2 POC ABG pO2 ABG pO2 ABG HCO3 ABG O2 Saturation ABG Base Excess ABG Hemoglobin ABG Oxyhemoglobin ABG Sodium ABG Potassium ABG Chloride ABG Glucose VBG pH Carboxyhemoglobin Sodium 146 H Potassium Chloride Carbon Dioxide BUN Creatinine 3.5 H Glucose POC Glucose Lactic Acid Calcium Phosphorus Magnesium Ferritin AST ALT Ammonia Lactate Dehydrogenase Troponin T C-Reactive Protein Total Protein Albumin Triglycerides LDL Cholesterol Direct HDL Cholesterol Arterial Blood Glucose Arterial Blood Ionized Calcium Urine WBC (Auto) Urine Creatinine Vancomycin Trough Crossmatch 06/19/21 06/19/21 06/19/21 11:14 12:19 16:15 WBC RBC Hgb Hct MCV MCH MCHC RDW Plt Count Seg Neuts % (Manual) Lymphocytes % (Manual) Monocytes % (Manual) Nucleated RBC % Seg Neutrophils # Man Lymphocytes # (Manual) PT INR APTT D-Dimer ABG pH POC ABG pCO2 POC ABG pO2 ABG pO2 ABG HCO3 ABG O2 Saturation ABG Base Excess ABG Hemoglobin ABG Oxyhemoglobin ABG Sodium ABG Potassium ABG Chloride ABG Glucose VBG pH Carboxyhemoglobin Sodium Potassium Chloride Carbon Dioxide BUN Creatinine Glucose POC Glucose Lactic Acid Calcium Phosphorus Magnesium Ferritin AST ALT Ammonia Lactate Dehydrogenase Troponin T 0.109 H* C-Reactive Protein 11.50 H Total Protein Albumin Triglycerides 295 H LDL Cholesterol Direct 24 L HDL Cholesterol 17 L Arterial Blood Glucose Arterial Blood Ionized Calcium Urine WBC (Auto) Urine Creatinine 49.9 H Vancomycin Trough Crossmatch 06/19/21 06/19/21 06/20/21 18:05 22:40 05:00 WBC 4.1 L RBC 2.66 L Hgb 7.3 L Hct 22.5 L MCV MCH MCHC RDW 16.9 H Plt Count 60 L Seg Neuts % (Manual) Lymphocytes % (Manual) Monocytes % (Manual) Nucleated RBC % Seg Neutrophils # Man Lymphocytes # (Manual) PT INR APTT D-Dimer ABG pH POC ABG pCO2 POC ABG pO2 ABG pO2 ABG HCO3 ABG O2 Saturation ABG Base Excess ABG Hemoglobin ABG Oxyhemoglobin ABG Sodium ABG Potassium ABG Chloride ABG Glucose VBG pH Carboxyhemoglobin Sodium Potassium Chloride Carbon Dioxide BUN Creatinine Glucose POC Glucose 131 H 121 H Lactic Acid Calcium Phosphorus Magnesium Ferritin AST ALT Ammonia Lactate Dehydrogenase Troponin T C-Reactive Protein Total Protein Albumin Triglycerides LDL Cholesterol Direct HDL Cholesterol Arterial Blood Glucose Arterial Blood Ionized Calcium Urine WBC (Auto) Urine Creatinine Vancomycin Trough Crossmatch 06/20/21 06/20/21 06/20/21 05:00 05:00 05:17 WBC RBC Hgb Hct MCV MCH MCHC RDW Plt Count Seg Neuts % (Manual) Lymphocytes % (Manual) Monocytes % (Manual) Nucleated RBC % Seg Neutrophils # Man Lymphocytes # (Manual) PT INR APTT D-Dimer ABG pH POC ABG pCO2 POC ABG pO2 ABG pO2 ABG HCO3 ABG O2 Saturation ABG Base Excess ABG Hemoglobin ABG Oxyhemoglobin ABG Sodium ABG Potassium ABG Chloride ABG Glucose VBG pH Carboxyhemoglobin Sodium Potassium Chloride 111.6 H Carbon Dioxide 20 L BUN 108 H Creatinine 4.3 H Glucose 152 H POC Glucose 137 H Lactic Acid Calcium 7.1 L Phosphorus Magnesium Ferritin AST ALT Ammonia Lactate Dehydrogenase Troponin T 0.105 H* C-Reactive Protein Total Protein Albumin Triglycerides LDL Cholesterol Direct HDL Cholesterol Arterial Blood Glucose Arterial Blood Ionized Calcium Urine WBC (Auto) Urine Creatinine Vancomycin Trough Crossmatch 06/20/21 06/20/21 06/20/21 11:40 12:35 13:26 WBC RBC Hgb Hct MCV MCH MCHC RDW Plt Count Seg Neuts % (Manual) Lymphocytes % (Manual) Monocytes % (Manual) Nucleated RBC % Seg Neutrophils # Man Lymphocytes # (Manual) PT INR APTT D-Dimer ABG pH 6.994 L POC ABG pCO2 70.2 H POC ABG pO2 ABG pO2 ABG HCO3 ABG O2 Saturation ABG Base Excess ABG Hemoglobin 8.1 L ABG Oxyhemoglobin ABG Sodium ABG Potassium ABG Chloride 111.0 H ABG Glucose 207 H VBG pH Carboxyhemoglobin Sodium Potassium Chloride Carbon Dioxide BUN Creatinine Glucose POC Glucose 186 H Lactic Acid Calcium Phosphorus Magnesium Ferritin AST ALT Ammonia Lactate Dehydrogenase Troponin T C-Reactive Protein Total Protein Albumin Triglycerides LDL Cholesterol Direct HDL Cholesterol Arterial Blood Glucose 207 H Arterial Blood Ionized Calcium Urine WBC (Auto) 46.0 H Urine Creatinine Vancomycin Trough Crossmatch 06/20/21 06/20/21 06/20/21 13:54 13:54 17:38 WBC RBC 2.26 L Hgb 6.1 L Hct 19.6 L* MCV MCH 27 L MCHC RDW 17.6 H Plt Count 65 L Seg Neuts % (Manual) Lymphocytes % (Manual) Monocytes % (Manual) Nucleated RBC % Seg Neutrophils # Man Lymphocytes # (Manual) PT INR APTT D-Dimer ABG pH POC ABG pCO2 POC ABG pO2 ABG pO2 ABG HCO3 ABG O2 Saturation ABG Base Excess ABG Hemoglobin ABG Oxyhemoglobin ABG Sodium ABG Potassium ABG Chloride ABG Glucose VBG pH Carboxyhemoglobin Sodium 147 H Potassium 3.0 L D Chloride Carbon Dioxide 33 H D BUN 90 H Creatinine 3.3 H Glucose 771 H* POC Glucose 198 H Lactic Acid Calcium 5.3 L* D Phosphorus Magnesium Ferritin AST 41 H ALT Ammonia Lactate Dehydrogenase Troponin T C-Reactive Protein Total Protein 3.5 L D Albumin 1.0 L Triglycerides LDL Cholesterol Direct HDL Cholesterol Arterial Blood Glucose Arterial Blood Ionized Calcium Urine WBC (Auto) Urine Creatinine Vancomycin Trough Crossmatch 06/20/21 06/20/21 06/20/21 18:00 18:09 22:38 WBC RBC Hgb Hct MCV MCH MCHC RDW Plt Count Seg Neuts % (Manual) Lymphocytes % (Manual) Monocytes % (Manual) Nucleated RBC % Seg Neutrophils # Man Lymphocytes # (Manual) PT INR APTT D-Dimer ABG pH 7.189 L* POC ABG pCO2 POC ABG pO2 ABG pO2 209.0 H ABG HCO3 26.1 H ABG O2 Saturation 99.1 H ABG Base Excess -2.3 L ABG Hemoglobin 7.4 L ABG Oxyhemoglobin ABG Sodium ABG Potassium ABG Chloride ABG Glucose VBG pH Carboxyhemoglobin Sodium Potassium Chloride Carbon Dioxide BUN Creatinine Glucose POC Glucose 151 H Lactic Acid Calcium Phosphorus Magnesium Ferritin AST ALT Ammonia Lactate Dehydrogenase Troponin T C-Reactive Protein Total Protein Albumin Triglycerides LDL Cholesterol Direct HDL Cholesterol Arterial Blood Glucose Arterial Blood Ionized Calcium Urine WBC (Auto) Urine Creatinine Vancomycin Trough Crossmatch See Detail 06/20/21 06/21/21 06/21/21 23:12 04:21 05:36 WBC RBC Hgb Hct MCV MCH MCHC RDW Plt Count Seg Neuts % (Manual) Lymphocytes % (Manual) Monocytes % (Manual) Nucleated RBC % Seg Neutrophils # Man Lymphocytes # (Manual) PT INR APTT D-Dimer ABG pH 7.31 L POC ABG pCO2 55.4 H POC ABG pO2 156.5 H ABG pO2 ABG HCO3 ABG O2 Saturation ABG Base Excess ABG Hemoglobin 9.0 L ABG Oxyhemoglobin ABG Sodium ABG Potassium 3.3 L ABG Chloride ABG Glucose VBG pH Carboxyhemoglobin Sodium Potassium Chloride Carbon Dioxide BUN Creatinine Glucose POC Glucose 184 H 128 H Lactic Acid Calcium Phosphorus Magnesium Ferritin AST ALT Ammonia Lactate Dehydrogenase Troponin T C-Reactive Protein Total Protein Albumin Triglycerides LDL Cholesterol Direct HDL Cholesterol Arterial Blood Glucose Arterial Blood Ionized Calcium Urine WBC (Auto) Urine Creatinine Vancomycin Trough Crossmatch 06/21/21 06/21/21 06/21/21 07:45 07:45 07:45 WBC 3.3 L RBC 3.08 L Hgb 8.7 L Hct 25.6 L D MCV 83 L MCH MCHC RDW 16.2 H Plt Count 49 L Seg Neuts % (Manual) Lymphocytes % (Manual) Monocytes % (Manual) Nucleated RBC % Seg Neutrophils # Man Lymphocytes # (Manual) PT INR APTT D-Dimer ABG pH POC ABG pCO2 POC ABG pO2 ABG pO2 ABG HCO3 ABG O2 Saturation ABG Base Excess ABG Hemoglobin ABG Oxyhemoglobin ABG Sodium ABG Potassium ABG Chloride ABG Glucose VBG pH Carboxyhemoglobin Sodium Potassium 3.5 L 3.5 L Chloride 108.0 H 107.4 H Carbon Dioxide BUN 86 H 84 H Creatinine 3.5 H 3.4 H Glucose 157 H 158 H POC Glucose Lactic Acid Calcium 7.4 L D 7.6 L Phosphorus Magnesium Ferritin AST 51 H ALT Ammonia Lactate Dehydrogenase Troponin T C-Reactive Protein Total Protein 3.9 L Albumin 1.3 L Triglycerides LDL Cholesterol Direct HDL Cholesterol Arterial Blood Glucose Arterial Blood Ionized Calcium Urine WBC (Auto) Urine Creatinine Vancomycin Trough Crossmatch 06/21/21 06/21/21 06/21/21 11:46 17:28 23:46 WBC RBC Hgb Hct MCV MCH MCHC RDW Plt Count Seg Neuts % (Manual) Lymphocytes % (Manual) Monocytes % (Manual) Nucleated RBC % Seg Neutrophils # Man Lymphocytes # (Manual) PT INR APTT D-Dimer ABG pH POC ABG pCO2 POC ABG pO2 ABG pO2 ABG HCO3 ABG O2 Saturation ABG Base Excess ABG Hemoglobin ABG Oxyhemoglobin ABG Sodium ABG Potassium ABG Chloride ABG Glucose VBG pH Carboxyhemoglobin Sodium Potassium Chloride Carbon Dioxide BUN Creatinine Glucose POC Glucose 130 H 111 H 109 H Lactic Acid Calcium Phosphorus Magnesium Ferritin AST ALT Ammonia Lactate Dehydrogenase Troponin T C-Reactive Protein Total Protein Albumin Triglycerides LDL Cholesterol Direct HDL Cholesterol Arterial Blood Glucose Arterial Blood Ionized Calcium Urine WBC (Auto) Urine Creatinine Vancomycin Trough Crossmatch 06/22/21 06/22/21 06/22/21 04:57 04:57 09:42 WBC 2.8 L RBC 2.86 L Hgb 8.2 L Hct 24.1 L MCV MCH MCHC RDW 16.2 H Plt Count 27 L Seg Neuts % (Manual) Lymphocytes % (Manual) Monocytes % (Manual) Nucleated RBC % Seg Neutrophils # Man Lymphocytes # (Manual) PT INR APTT D-Dimer ABG pH 7.249 L POC ABG pCO2 62.9 H POC ABG pO2 74.4 L ABG pO2 ABG HCO3 ABG O2 Saturation ABG Base Excess ABG Hemoglobin 8.4 L ABG Oxyhemoglobin 92.3 L ABG Sodium 134.4 L ABG Potassium 3.2 L ABG Chloride ABG Glucose 116 H VBG pH Carboxyhemoglobin Sodium 136 L D Potassium Chloride Carbon Dioxide BUN 61 H Creatinine 3.2 H Glucose 115 H POC Glucose Lactic Acid Calcium 7.4 L Phosphorus Magnesium Ferritin AST ALT Ammonia Lactate Dehydrogenase Troponin T C-Reactive Protein Total Protein Albumin Triglycerides LDL Cholesterol Direct HDL Cholesterol Arterial Blood Glucose 116 H Arterial Blood Ionized Calcium Urine WBC (Auto) Urine Creatinine Vancomycin Trough Crossmatch 06/22/21 06/23/21 06/23/21 11:03 04:40 04:40 WBC 2.5 L RBC 2.74 L Hgb 7.9 L Hct 23.1 L MCV MCH MCHC RDW 16.5 H Plt Count 28 L Seg Neuts % (Manual) Lymphocytes % (Manual) Monocytes % (Manual) Nucleated RBC % Seg Neutrophils # Man Lymphocytes # (Manual) PT INR APTT D-Dimer ABG pH POC ABG pCO2 POC ABG pO2 ABG pO2 ABG HCO3 ABG O2 Saturation ABG Base Excess ABG Hemoglobin ABG Oxyhemoglobin ABG Sodium ABG Potassium ABG Chloride ABG Glucose VBG pH Carboxyhemoglobin Sodium Potassium Chloride Carbon Dioxide BUN 77 H Creatinine 4.1 H Glucose POC Glucose 106 H Lactic Acid Calcium 7.3 L Phosphorus Magnesium Ferritin AST ALT Ammonia Lactate Dehydrogenase Troponin T C-Reactive Protein Total Protein Albumin Triglycerides LDL Cholesterol Direct HDL Cholesterol Arterial Blood Glucose Arterial Blood Ionized Calcium Urine WBC (Auto) Urine Creatinine Vancomycin Trough Crossmatch 06/23/21 06/23/21 06/23/21 04:40 12:25 17:57 WBC RBC Hgb Hct MCV MCH MCHC RDW Plt Count Seg Neuts % (Manual) Lymphocytes % (Manual) Monocytes % (Manual) Nucleated RBC % Seg Neutrophils # Man Lymphocytes # (Manual) PT INR APTT D-Dimer ABG pH 7.204 L POC ABG pCO2 63.9 H POC ABG pO2 68.2 L ABG pO2 ABG HCO3 ABG O2 Saturation ABG Base Excess ABG Hemoglobin 7.8 L ABG Oxyhemoglobin 88.8 L ABG Sodium 132.0 L ABG Potassium ABG Chloride ABG Glucose 100 H VBG pH Carboxyhemoglobin Sodium Potassium Chloride Carbon Dioxide BUN Creatinine Glucose POC Glucose 120 H 111 H Lactic Acid Calcium Phosphorus Magnesium Ferritin AST ALT Ammonia Lactate Dehydrogenase Troponin T C-Reactive Protein Total Protein Albumin Triglycerides LDL Cholesterol Direct HDL Cholesterol Arterial Blood Glucose 100 H Arterial Blood Ionized Calcium Urine WBC (Auto) Urine Creatinine Vancomycin Trough Crossmatch 06/24/21 06/24/21 06/24/21 05:00 05:00 05:00 WBC 1.9 L* RBC 2.73 L Hgb 7.8 L Hct 22.9 L MCV MCH MCHC RDW 16.6 H Plt Count 19 L* Seg Neuts % (Manual) Lymphocytes % (Manual) Monocytes % (Manual) Nucleated RBC % Seg Neutrophils # Man Lymphocytes # (Manual) PT INR APTT D-Dimer ABG pH POC ABG pCO2 POC ABG pO2 ABG pO2 ABG HCO3 ABG O2 Saturation ABG Base Excess ABG Hemoglobin ABG Oxyhemoglobin ABG Sodium ABG Potassium ABG Chloride ABG Glucose VBG pH Carboxyhemoglobin Sodium 134 L Potassium 3.3 L Chloride Carbon Dioxide BUN 82 H Creatinine 4.3 H Glucose 73 L POC Glucose Lactic Acid Calcium 7.2 L Phosphorus 5.40 H Magnesium 1.60 L Ferritin AST ALT Ammonia Lactate Dehydrogenase Troponin T C-Reactive Protein Total Protein Albumin Triglycerides 557 H LDL Cholesterol Direct HDL Cholesterol Arterial Blood Glucose Arterial Blood Ionized Calcium Urine WBC (Auto) Urine Creatinine Vancomycin Trough Crossmatch 06/24/21 05:16 WBC RBC Hgb Hct MCV MCH MCHC RDW Plt Count Seg Neuts % (Manual) Lymphocytes % (Manual) Monocytes % (Manual) Nucleated RBC % Seg Neutrophils # Man Lymphocytes # (Manual) PT INR APTT D-Dimer ABG pH POC ABG pCO2 POC ABG pO2 ABG pO2 ABG HCO3 ABG O2 Saturation ABG Base Excess ABG Hemoglobin ABG Oxyhemoglobin ABG Sodium ABG Potassium ABG Chloride ABG Glucose VBG pH Carboxyhemoglobin Sodium Potassium Chloride Carbon Dioxide BUN Creatinine Glucose POC Glucose 61 L Lactic Acid Calcium Phosphorus Magnesium Ferritin AST ALT Ammonia Lactate Dehydrogenase Troponin T C-Reactive Protein Total Protein Albumin Triglycerides LDL Cholesterol Direct HDL Cholesterol Arterial Blood Glucose Arterial Blood Ionized Calcium Urine WBC (Auto) Urine Creatinine Vancomycin Trough Crossmatch Assessment and Plan Assessment and Plan Assessment and plan: This is a 59-year-old male with CVA and current daily smoker admitted with pneumonia possibly secondary to COVID-19, hypoxia and encephalopathy # encephalopathy, mostly multifactorial -witnessed seizure last night was given ativan and started on Keppra IV -EEG is pending -Head CT is pending -Sedated with fentanyl and propofol -Goal RASS -1 to -2 -Maintenance of sleep-wake cycle # S/p cardiac arrest -06/10 s/p cardiac arrest -Cardiology consulted, patient recommendations -Per cardiology not a candidate for anticoagulation secondary to anemia and beta-ian secondary to hypotension as well as reports of melena per nursing staff -Vasopressor support with Levophed -MAP goal of 65 -Echocardiogram shows left ventricle ejection fraction 55 to 60% # Acute hypoxic respiratory failure, left pneumothorax, aspiration pneumonia with left lower lobe lesion, pneumomediastinum -S/p BiPAP -CCM consulted, appreciate recommendation -CXR showed patchy multifocal airspace disease bilaterally -Patient was intubated 06/17 with a 8.0 OETT at 24 at the lips -A.m. vent settings: Assist control tidal volume 450, rate 30, PEEP 8 on 100% FiO2 -See RT notes for weaning -Serial ABG and CXR -06/23 ABG and CXR reviewed -VAP bundle -SPO2 monitoring -Daily SBT/SAT trials when appropriate -Chest tube to wall suction -VQ scan shows low probability of pulmonary embolism # NAD, s/p ileus (resolved) -NTR consult for tube feeding -Nephro at 41 ml/hr -Free water pressure 190 mL every 4 -PPI: Pepcid -BR: Senokot # Acute kidney injury secondary to vasomotor nephropathy, hypernatremia, hyp erchloremia -Nephrology consulted, appreciate recommendations -Renal ultrasound unremarkable -Vasculitis work-up negative, including ANCA as well as complement levels -06/20 HD initiated by nephrology -HD per nephrology -Avoid nephrotoxic medications -Renally dose medication -Daily weights -Strict intake and output -Trend BMP # Aspiration pneumonia with left lower lobe abcess, COVID 19 PNA -Seen on CT abdomen pelvis and chest: Approximately 5 x 6 cm -Infectious disease consulted, appreciate recommendations -Covid 19 PCR positive at outpatient however negative x2 inpatient -CT abdomen/pelvis showed severe aspiration type pneumonia bilateral bases with lesion in the left lower lobe -Cefepime and Flagyl (planned 3 weeks of therapy) -> per ID -S/p azithromycin , ceftriaxone -S/p Decadron -S/p stress dose steroids -s/p Actemra on 05/24 -Monitor fever WBC curve -Follow-up culture data # Leukopenia, elevated D-dimer -D-dimer on admit greater than 10,000-> VQ scan with low probability of PE -D-dimer trending down -Eliquis 2.5 every 12 -Trend CBC -Transfuse for hemoglobin less than 7 # Witnessed seizure yesterday new onset -Suggest start Vimpat 50 mg Iv BID -Stop Keppra due to impaired Kidney function -CT brain is pending -EEG is pending -Cut down sedation so we can evaluate pt. mental status [Periodically ] sedation only on PRN -SSI -Accu-Cheks every 6 -Avoid hypoglycemia The high probability of a clinically significant, sudden or life threatening det erioration of the [multi] system(s) required my full and direct attention, intervention and personal management. The aggregate critical care time was [60] minutes. This time is in addition to time spent performing reported procedures but includes the following: [x] Data Review and interpretation [x] Patient assessment and monitoring of vital signs [x] Documentation [x] Medication orders and management Disposition Plan: icu Total Time Spent with Patient (Minutes): 60
--- NOTE | 2021-06-24 12:13 | Cat Scan Report ---
CT head without contrast INDICATION : Seizure, altered mental status. TECHNIQUE: Axial imaging performed from the skull apex through the skull base without the use of con trast. Coronal and sagittal reformations were processed and reviewed. All CT scans at this location a re performed using CT dose reduction for ALARA by means of automated exposure control. COMPARISON: 05/23/2021. FINDINGS: Parenchyma: No acute intracranial hemorrhage or parenchymal abnormality. Ventricles: Ventricles are normal in size and appear symmetric. Soft tissues: Soft tissues including the orbits appear normal. Bones: No acute osseous abnormality. Sinuses: Fluid level within the right maxillary sinus as well as fluid throughout both mastoid air c ells is noted. This is new compared to prior CT. IMPRESSION: No evidence of acute intracranial abnormality. If seizures or neurologic symptoms persist or addition al evaluation is clinically indicated, consider MRI. Fluid level within the right maxillary sinus as well as fluid throughout both mastoid air cells is no [place]. This is new compared to prior CT and may represent sinusitis/mastoiditis. Signer Name: Nikolas Reyes MD Signed: 06/24/2021 12:09 PM Workstation Name: [id number]
[2021-06-24] MEDS: LACOSAMIDE 50 MG in SODIUM CHLORIDE 0.9% 100 ML IV SCH (12:27)
[2021-06-24] MEDS: VASOPRESSIN 20 UNIT in SODIUM CHLORIDE 0.9% 100 ML IV SCH ×2 (12:27→23:25)
[2021-06-24] MEDS ORDERED: POTASSIUM CHLORIDE 20 MEQ PACKET FEEDTUBE SCH (12:30)
[2021-06-24] MEDS ORDERED: MAGNESIUM SULFATE 2 GM/50 ML BAG IV SCH (12:30)
[2021-06-24] MEDS: DEXTROSE 50% IN WATER (25GM) 50 ML SYRINGE IV PRN ×2 (12:55→23:21)
--- NOTE | 2021-06-24 12:57 | Progress Note ---
Assessment and Plan Acute hypoxemic respiratory failure Bilateral pneumonia Suspected 2019 novel coronavirus infection - empiric anti-epileptic drugs - CT Brain - neurology consultation - left chest tube to continuous wall suction - tracheal aspirate sent for silcer stain re: PJP - wean vasopressors for MAP > 65 mmHg - continue anti-infective's per ID recommendations (Cefepime) - continue care as below otherwise; - Daily SAT and SBT assessment as tolerated - VAP bundle addressed - continue lung protective strategies - continue bronchodilators with pulmonary hygiene per RT - wean per pulmonary driven protocols otherwise - continue to wean supplemental oxygen for target O2 sat's > 90% acutely - continue accuchecks with glycemic control per SSI (While critically ill target blood glucose of 140-180 mg/dL; avoid hypoglycemia) - avoid nephrotoxins, renally dose all medications - continue to avoid benzodiazepine's, reduce the possibility of delirium - prn analgesia per CPOT score - Maintenance of sleep-wake cycle, avoid delirium - continue enteral nutritional support at goal rate as tolerated - G.I. & VTE prophylaxis - PT/OT/ROM exercises - continue mobility protocols for pressure ulcer prophylaxis - Monitor hemodynamics closely - continue other care per attending / other consultants - discharge planning ongoing concurrently COVID SPECIFIC INTERVENTIONS - repeat COVID-19 test result negative .... Re-evaluate in am & prn CONDITION: CRITICAL PROGNOSIS: GUARDED CODE STATUS: FULL CODE The high probability of a clinically significant, sudden or life-threatening deterioration of the [respiratory, GI, renal & cardiovascular] system(s) required my full and direct attention, intervention and personal management. The aggregate critical care time was [34] minutes without overlap. Time includes spent on; [x] Data Review and interpretation [x] Patient assessment and monitoring of vital signs [x] Documentation [x] Medication orders and management Subjective Date of service: 06/24/21 Principal diagnosis: Acute hypoxemic resp failure; Pneumonia; PUI COVID-19 infection Interval history: Patient is seen today for: Acute hypoxemic respiratory failure; Bilateral pneumonia; Suspected 2019 novel coronavirus infection Seen and examined at bedside; 24hour events reviewed; nursing and respiratory care staff consulted; no adverse overnight events reported to me; resting in bed; remains on MVS; hypoxemic and FiO2 up to 100% now; peep increased to 12; sedated; remains on vasopressors; no gross bleeding; reported seizure-type activity overnight Objective Vital Signs - 12hr 06/24/21 06/24/21 06/24/21 01:00 01:15 01:30 Temperature Pulse Rate 133 H 135 H 136 H Pulse Rate [ Anterior Bilateral Throughout] Pulse Rate [ From Monitor] Respiratory 30 H 29 H 30 H Rate Respiratory Rate [Anterior Bilateral Throughout] Blood Pressure 97/48 98/48 91/50 O2 Sat by Pulse 95 95 95 Oximetry 06/24/21 06/24/21 06/24/21 01:45 02:01 02:15 Temperature Pulse Rate 135 H 127 H 133 H Pulse Rate [ Anterior Bilateral Throughout] Pulse Rate [ From Monitor] Respiratory 30 H 30 H 30 H Rate Respiratory Rate [Anterior Bilateral Throughout] Blood Pressure 95/51 72/34 91/50 O2 Sat by Pulse 95 91 95 Oximetry 06/24/21 06/24/21 06/24/21 02:30 02:45 03:00 Temperature Pulse Rate 134 H 135 H 136 H Pulse Rate [ Anterior Bilateral Throughout] Pulse Rate [ From Monitor] Respiratory 25 H 30 H 30 H Rate Respiratory Rate [Anterior Bilateral Throughout] Blood Pressure 94/50 98/51 100/50 O2 Sat by Pulse 94 95 95 Oximetry 06/24/21 06/24/21 06/24/21 03:15 03:30 03:45 Temperature Pulse Rate 136 H 136 H 136 H Pulse Rate [ Anterior Bilateral Throughout] Pulse Rate [ From Monitor] Respiratory 30 H 26 H 28 H Rate Respiratory Rate [Anterior Bilateral Throughout] Blood Pressure 96/53 96/52 80/56 O2 Sat by Pulse 95 95 94 Oximetry 06/24/21 06/24/21 06/24/21 03:54 04:00 04:15 Temperature 99.8 F H Pulse Rate 135 H 135 H 134 H Pulse Rate [ Anterior Bilateral Throughout] Pulse Rate [ 134 H From Monitor] Respiratory 30 H 30 H Rate Respiratory Rate [Anterior Bilateral Throughout] Blood Pressure 97/52 91/51 O2 Sat by Pulse 94 97 94 Oximetry 06/24/21 06/24/21 06/24/21 04:30 04:45 05:00 Temperature Pulse Rate 135 H 134 H 135 H Pulse Rate [ Anterior Bilateral Throughout] Pulse Rate [ From Monitor] Respiratory 30 H 30 H 30 H Rate Respiratory Rate [Anterior Bilateral Throughout] Blood Pressure 100/51 100/51 102/51 O2 Sat by Pulse 94 94 95 Oximetry 06/24/21 06/24/21 06/24/21 05:15 05:30 05:45 Temperature Pulse Rate 135 H 132 H 133 H Pulse Rate [ Anterior Bilateral Throughout] Pulse Rate [ From Monitor] Respiratory 30 H 30 H 30 H Rate Respiratory Rate [Anterior Bilateral Throughout] Blood Pressure 93/52 108/48 101/48 O2 Sat by Pulse 95 97 96 Oximetry 06/24/21 06/24/21 06/24/21 06:00 06:15 06:30 Temperature Pulse Rate 135 H 136 H 136 H Pulse Rate [ Anterior Bilateral Throughout] Pulse Rate [ From Monitor] Respiratory 29 H 30 H 30 H Rate Respiratory Rate [Anterior Bilateral Throughout] Blood Pressure 104/52 96/53 101/49 O2 Sat by Pulse 95 95 95 Oximetry 06/24/21 06/24/21 06/24/21 06:45 07:00 07:15 Temperature Pulse Rate 135 H 135 H 132 H Pulse Rate [ Anterior Bilateral Throughout] Pulse Rate [ From Monitor] Respiratory 30 H 30 H 30 H Rate Respiratory Rate [Anterior Bilateral Throughout] Blood Pressure 95/51 95/51 87/49 O2 Sat by Pulse 93 94 78 L Oximetry 06/24/21 06/24/21 06/24/21 07:30 07:45 08:00 Temperature 99.2 F Pulse Rate 132 H 136 H 135 H Pulse Rate [ Anterior Bilateral Throughout] Pulse Rate [ From Monitor] Respiratory 30 H 30 H 30 H Rate Respiratory Rate [Anterior Bilateral Throughout] Blood Pressure 87/51 84/39 82/42 O2 Sat by Pulse 91 88 90 Oximetry 06/24/21 06/24/21 06/24/21 08:15 08:30 08:45 Temperature Pulse Rate 135 H 136 H 137 H Pulse Rate [ Anterior Bilateral Throughout] Pulse Rate [ From Monitor] Respiratory 30 H 30 H 30 H Rate Respiratory Rate [Anterior Bilateral Throughout] Blood Pressure 89/43 99/44 94/45 O2 Sat by Pulse 91 93 93 Oximetry 06/24/21 06/24/21 09:50 09:55 Temperature Pulse Rate 137 H Pulse Rate [ 136 H Anterior Bilateral Throughout] Pulse Rate [ From Monitor] Respiratory Rate Respiratory 30 H Rate [Anterior Bilateral Throughout] Blood Pressure 97/51 O2 Sat by Pulse 90 Oximetry Constitutional: appears uncomfortable, other (middle aged male with mildly increased respiratory effort at rest on MVS) Eyes: non-icteric ENT: oropharynx moist, other (ETT 24 cm MADHAVI) Neck: supple, no JVD Effort: mildly labored Ascultation: Bilateral: diminished breath sounds, rhonchi Percussion: Bilateral: not dull Cardiovascular: regular rate and rhythm Gastrointestinal: normoactive bowel sounds, non-distended (protuberant) Integumentary: normal Extremities: no cyanosis, pulses normal, no ischemia or petechiae, edema Neurologic: pupils equal and round, CN II-XII normal, other (sedated) Psychiatric: other (unable to assess re: AMS) CBC and BMP: 06/24/21 05:00 06/24/21 05:00 ABG, PT/INR, D-dimer: ABG ABG pH 7.204 (7.320-7.450) L 06/23/21 04:40 POC ABG pCO2 63.9 mmHg (32.0-48.0) H 06/23/21 04:40 ABG pCO2 70.2 mm Hg 06/20/21 18:00 POC ABG pO2 68.2 mmHg (83-108) L 06/23/21 04:40 ABG pO2 209.0 mm Hg (80.0-90.0) H 06/20/21 18:00 POC ABG HCO3 24.6 06/23/21 04:40 ABG O2 Saturation 90.4 (0-100) 06/23/21 04:40 PT/INR, D-dimer PT 19.2 Sec. (12.2-14.9) H 06/19/21 09:37 INR 1.46 (0.87-1.13) H 06/19/21 09:37 D-Dimer 3584.01 ng/mlDDU (0-234) H 05/27/21 08:09 Abnormal lab findings: Abnormal Labs 05/23/21 05/23/21 05/23/21 18:48 18:48 18:48 WBC 11.8 H RBC 5.18 H Hgb Hct MCV MCH MCHC RDW Plt Count Seg Neuts % (Manual) 84.0 H Lymphocytes % (Manual) Monocytes % (Manual) Nucleated RBC % Seg Neutrophils # Man 9.9 H Lymphocytes # (Manual) PT INR APTT D-Dimer > 71865 H ABG pH POC ABG pCO2 POC ABG pO2 ABG pO2 ABG HCO3 ABG O2 Saturation ABG Base Excess ABG Hemoglobin ABG Oxyhemoglobin ABG Sodium ABG Potassium ABG Chloride ABG Glucose VBG pH Carboxyhemoglobin Sodium Potassium Chloride Carbon Dioxide BUN Creatinine Glucose POC Glucose Lactic Acid 2.30 H* Calcium Phosphorus Magnesium Ferritin AST ALT Ammonia Lactate Dehydrogenase Troponin T C-Reactive Protein Total Protein Albumin Triglycerides LDL Cholesterol Direct HDL Cholesterol Arterial Blood Glucose Arterial Blood Ionized Calcium Urine WBC (Auto) Urine Creatinine Vancomycin Trough Crossmatch 05/23/21 05/23/21 05/23/21 18:48 18:48 18:48 WBC RBC Hgb Hct MCV MCH MCHC RDW Plt Count Seg Neuts % (Manual) Lymphocytes % (Manual) Monocytes % (Manual) Nucleated RBC % Seg Neutrophils # Man Lymphocytes # (Manual) PT INR APTT D-Dimer ABG pH POC ABG pCO2 POC ABG pO2 ABG pO2 ABG HCO3 ABG O2 Saturation ABG Base Excess ABG Hemoglobin ABG Oxyhemoglobin ABG Sodium ABG Potassium ABG Chloride ABG Glucose VBG pH Carboxyhemoglobin Sodium 151 H Potassium 5.1 H Chloride 113.2 H Carbon Dioxide 17 L BUN 180 H Creatinine 4.3 H Glucose 114 H POC Glucose Lactic Acid Calcium Phosphorus Magnesium Ferritin 2000.0 H AST ALT Ammonia 22.0 L Lactate Dehydrogenase 577 H Troponin T C-Reactive Protein 8.80 H Total Protein 9.4 H Albumin 3.0 L Triglycerides LDL Cholesterol Direct HDL Cholesterol Arterial Blood Glucose Arterial Blood Ionized Calcium Urine WBC (Auto) Urine Creatinine Vancomycin Trough Crossmatch 05/23/21 05/24/21 05/24/21 21:06 02:09 02:09 WBC RBC Hgb Hct MCV MCH MCHC RDW Plt Count Seg Neuts % (Manual) Lymphocytes % (Manual) Monocytes % (Manual) Nucleated RBC % Seg Neutrophils # Man Lymphocytes # (Manual) PT INR APTT D-Dimer ABG pH POC ABG pCO2 POC ABG pO2 ABG pO2 ABG HCO3 ABG O2 Saturation ABG Base Excess ABG Hemoglobin ABG Oxyhemoglobin ABG Sodium ABG Potassium ABG Chloride ABG Glucose VBG pH 7.254 L Carboxyhemoglobin Sodium Potassium Chloride Carbon Dioxide BUN Creatinine Glucose POC Glucose Lactic Acid 2.10 H* 2.30 H* Calcium Phosphorus Magnesium Ferritin AST ALT Ammonia Lactate Dehydrogenase Troponin T C-Reactive Protein Total Protein Albumin Triglycerides LDL Cholesterol Direct HDL Cholesterol Arterial Blood Glucose Arterial Blood Ionized Calcium Urine WBC (Auto) Urine Creatinine Vancomycin Trough Crossmatch 05/24/21 05/24/2105/24/21 13:11 17:34 18:12 WBC RBC Hgb Hct MCV MCH MCHC RDW Plt Count Seg Neuts % (Manual) Lymphocytes % (Manual) Monocytes % (Manual) Nucleated RBC % Seg Neutrophils # Man Lymphocytes # (Manual) PT INR APTT D-Dimer ABG pH POC ABG pCO2 POC ABG pO2 ABG pO2 ABG HCO3 ABG O2 Saturation ABG Base Excess ABG Hemoglobin ABG Oxyhemoglobin ABG Sodium ABG Potassium ABG Chloride ABG Glucose VBG pH Carboxyhemoglobin Sodium 155 H Potassium 6.9 H* D 5.7 H Chloride 121.9 H Carbon Dioxide 20 L BUN 139 H Creatinine 2.7 H Glucose 139 H POC Glucose 153 H Lactic Acid Calcium Phosphorus Magnesium Ferritin AST ALT Ammonia Lactate Dehydrogenase Troponin T C-Reactive Protein Total Protein Albumin Triglycerides LDL Cholesterol Direct HDL Cholesterol Arterial Blood Glucose Arterial Blood Ionized Calcium Urine WBC (Auto) Urine Creatinine Vancomycin Trough Crossmatch 05/25/21 05/25/21 05/26/21 11:33 11:33 03:15 WBC 13.8 H RBC 5.06 H Hgb Hct MCV MCH MCHC RDW Plt Count Seg Neuts % (Manual) Lymphocytes % (Manual) Monocytes % (Manual) Nucleated RBC % Seg Neutrophils # Man Lymphocytes # (Manual) PT INR APTT D-Dimer ABG pH POC ABG pCO2 POC ABG pO2 ABG pO2 ABG HCO3 ABG O2 Saturation ABG Base Excess ABG Hemoglobin ABG Oxyhemoglobin ABG Sodium ABG Potassium ABG Chloride ABG Glucose VBG pH Carboxyhemoglobin Sodium 164 H* D 166 H* Potassium 5.4 H 5.5 H Chloride 131.3 H 129.2 H Carbon Dioxide BUN 109 H 102 H Creatinine 1.9 H 1.8 H Glucose 117 H 113 H POC Glucose Lactic Acid Calcium Phosphorus Magnesium Ferritin AST ALT Ammonia Lactate Dehydrogenase 711 H Troponin T C-Reactive Protein 7.90 H Total Protein Albumin Triglycerides LDL Cholesterol Direct HDL Cholesterol Arterial Blood Glucose Arterial Blood Ionized Calcium Urine WBC (Auto) Urine Creatinine Vancomycin Trough Crossmatch 05/26/21 05/26/21 05/26/21 03:15 03:15 03:15 WBC 13.1 H RBC 5.43 H Hgb 15.3 H Hct 48.5 H MCV MCH MCHC RDW 15.4 H Plt Count Seg Neuts % (Manual) Lymphocytes % (Manual) Monocytes % (Manual) Nucleated RBC % Seg Neutrophils # Man Lymphocytes # (Manual) PT INR APTT D-Dimer 6229.14 H ABG pH POC ABG pCO2 POC ABG pO2 ABG pO2 ABG HCO3 ABG O2 Saturation ABG Base Excess ABG Hemoglobin ABG Oxyhemoglobin ABG Sodium ABG Potassium ABG Chloride ABG Glucose VBG pH Carboxyhemoglobin Sodium Potassium Chloride Carbon Dioxide BUN Creatinine Glucose POC Glucose Lactic Acid Calcium Phosphorus Magnesium Ferritin 2991.0 H AST ALT Ammonia Lactate Dehydrogenase Troponin T C-Reactive Protein Total Protein Albumin Triglycerides LDL Cholesterol Direct HDL Cholesterol Arterial Blood Glucose Arterial Blood Ionized Calcium Urine WBC (Auto) Urine Creatinine Vancomycin Trough Crossmatch 05/27/21 05/27/21 05/27/21 08:09 08:09 08:09 WBC 12.4 H RBC 5.27 H Hgb Hct 46.6 H MCV MCH MCHC 31 L RDW 15.7 H Plt Count Seg Neuts % (Manual) Lymphocytes % (Manual) Monocytes % (Manual) Nucleated RBC % Seg Neutrophils # Man Lymphocytes # (Manual) PT INR APTT D-Dimer 3584.01 H ABG pH POC ABG pCO2 POC ABG pO2 ABG pO2 ABG HCO3 ABG O2 Saturation ABG Base Excess ABG Hemoglobin ABG Oxyhemoglobin ABG Sodium ABG Potassium ABG Chloride ABG Glucose VBG pH Carboxyhemoglobin Sodium 174 H* Potassium Chloride 136.9 H Carbon Dioxide BUN 90 H Creatinine 1.8 H Glucose POC Glucose Lactic Acid Calcium Phosphorus Magnesium Ferritin AST ALT Ammonia Lactate Dehydrogenase 642 H Troponin T C-Reactive Protein 5.20 H Total Protein Albumin Triglycerides LDL Cholesterol Direct HDL Cholesterol Arterial Blood Glucose Arterial Blood Ionized Calcium Urine WBC (Auto) Urine Creatinine Vancomycin Trough Crossmatch 05/27/21 05/28/21 05/28/21 08:09 07:31 07:31 WBC RBC Hgb Hct MCV MCH 27 L MCHC 31 L RDW Plt Count Seg Neuts % (Manual) 88.0 H Lymphocytes % (Manual) 11.0 L Monocytes % (Manual) Nucleated RBC % Seg Neutrophils # Man 8.3 H Lymphocytes # (Manual) 1.0 L PT INR APTT D-Dimer ABG pH POC ABG pCO2 POC ABG pO2 ABG pO2 ABG HCO3 ABG O2 Saturation ABG Base Excess ABG Hemoglobin ABG Oxyhemoglobin ABG Sodium ABG Potassium ABG Chloride ABG Glucose VBG pH Carboxyhemoglobin Sodium 162 H* D Potassium Chloride 125.8 H Carbon Dioxide BUN 72 H Creatinine 1.6 H Glucose 131 H POC Glucose Lactic Acid Calcium Phosphorus Magnesium 3.00 H Ferritin 2742.0 H AST ALT Ammonia Lactate Dehydrogenase Troponin T C-Reactive Protein Total Protein Albumin Triglycerides LDL Cholesterol Direct HDL Cholesterol Arterial Blood Glucose Arterial Blood Ionized Calcium Urine WBC (Auto) Urine Creatinine Vancomycin Trough Crossmatch 05/29/21 05/29/21 05/29/21 06:40 06:40 17:58 WBC 14.1 H RBC Hgb Hct MCV MCH 27 L MCHC 31 L RDW Plt Count Seg Neuts % (Manual) 85.0 H Lymphocytes % (Manual) 9.0 L Monocytes % (Manual) Nucleated RBC % 1.0 H Seg Neutrophils # Man 12.0 H Lymphocytes # (Manual) PT INR APTT D-Dimer ABG pH 7.505 H POC ABG pCO2 30.3 L POC ABG pO2 128.1 H ABG pO2 ABG HCO3 ABG O2 Saturation ABG Base Excess ABG Hemoglobin 11.9 L ABG Oxyhemoglobin ABG Sodium ABG Potassium ABG Chloride 113.0 H ABG Glucose 110 H VBG pH Carboxyhemoglobin Sodium 148 H D Potassium Chloride 111.3 H Carbon Dioxide 20 L BUN 45 H Creatinine Glucose POC Glucose Lactic Acid Calcium Phosphorus 2.10 L D Magnesium Ferritin AST ALT Ammonia Lactate Dehydrogenase Troponin T C-Reactive Protein Total Protein Albumin Triglycerides LDL Cholesterol Direct HDL Cholesterol Arterial Blood Glucose 110 H Arterial Blood Ionized Calcium 4.5 L Urine WBC (Auto) Urine Creatinine Vancomycin Trough Crossmatch 05/30/21 05/30/21 05/30/21 01:00 06:06 13:48 WBC RBC Hgb Hct MCV MCH MCHC RDW Plt Count Seg Neuts % (Manual) Lymphocytes % (Manual) Monocytes % (Manual) Nucleated RBC % Seg Neutrophils # Man Lymphocytes # (Manual) PT INR APTT D-Dimer ABG pH POC ABG pCO2 POC ABG pO2 ABG pO2 90.9 H ABG HCO3 ABG O2 Saturation ABG Base Excess ABG Hemoglobin 11.8 L ABG Oxyhemoglobin ABG Sodium ABG Potassium ABG Chloride ABG Glucose VBG pH Carboxyhemoglobin Sodium 150 H Potassium Chloride 117.6 H Carbon Dioxide BUN 40 H Creatinine Glucose POC Glucose Lactic Acid Calcium 8.3 L Phosphorus Magnesium Ferritin AST ALT Ammonia Lactate Dehydrogenase Troponin T C-Reactive Protein Total Protein Albumin Triglycerides LDL Cholesterol Direct HDL Cholesterol Arterial Blood Glucose Arterial Blood Ionized Calcium Urine WBC (Auto) 12.0 H Urine Creatinine Vancomycin Trough Crossmatch 05/30/21 05/31/21 05/31/21 22:32 02:22 02:22 WBC RBC Hgb 11.2 L Hct 34.8 L MCV MCH MCHC RDW Plt Count 127 L Seg Neuts % (Manual) 97.0 H Lymphocytes % (Manual) Monocytes % (Manual) Nucleated RBC % Seg Neutrophils # Man 10.5 H Lymphocytes # (Manual) 0.0 L PT INR APTT D-Dimer ABG pH 7.454 H POC ABG pCO2 POC ABG pO2 ABG pO2 141.8 H ABG HCO3 19.9 L ABG O2 Saturation ABG Base Excess -2.7 L ABG Hemoglobin ABG Oxyhemoglobin ABG Sodium ABG Potassium ABG Chloride ABG Glucose VBG pH Carboxyhemoglobin Sodium 152 H Potassium Chloride 118.9 H Carbon Dioxide 19 L BUN 48 H Creatinine 1.5 H Glucose 101 H POC Glucose Lactic Acid Calcium 8.3 L Phosphorus Magnesium Ferritin AST ALT Ammonia Lactate Dehydrogenase Troponin T C-Reactive Protein Total Protein Albumin Triglycerides LDL Cholesterol Direct HDL Cholesterol Arterial Blood Glucose Arterial Blood Ionized Calcium Urine WBC (Auto) Urine Creatinine Vancomycin Trough Crossmatch 05/31/21 05/31/21 06/01/21 11:42 21:28 07:10 WBC RBC Hgb Hct MCV MCH MCHC RDW Plt Count Seg Neuts % (Manual) Lymphocytes % (Manual) Monocytes % (Manual) Nucleated RBC % Seg Neutrophils # Man Lymphocytes # (Manual) PT INR APTT D-Dimer ABG pH POC ABG pCO2 POC ABG pO2 ABG pO2 ABG HCO3 ABG O2 Saturation ABG Base Excess ABG Hemoglobin ABG Oxyhemoglobin ABG Sodium ABG Potassium ABG Chloride ABG Glucose VBG pH Carboxyhemoglobin Sodium 150 H Potassium Chloride 115.7 H Carbon Dioxide BUN 47 H Creatinine Glucose 115 H POC Glucose 161 H Lactic Acid Calcium Phosphorus Magnesium 2.50 H Ferritin AST ALT Ammonia Lactate Dehydrogenase Troponin T C-Reactive Protein Total Protein Albumin Triglycerides LDL Cholesterol Direct HDL Cholesterol Arterial Blood Glucose Arterial Blood Ionized Calcium Urine WBC (Auto) Urine Creatinine Vancomycin Trough 20.2 H Crossmatch 06/01/21 06/01/21 06/01/21 07:10 07:54 10:39 WBC RBC Hgb 10.7 L Hct 33.5 L MCV MCH MCHC RDW Plt Count Seg Neuts % (Manual) 92.0 H Lymphocytes % (Manual) 4.0 L Monocytes % (Manual) Nucleated RBC % Seg Neutrophils # Man Lymphocytes # (Manual) 0.3 L PT INR APTT D-Dimer ABG pH POC ABG pCO2 POC ABG pO2 ABG pO2 ABG HCO3 ABG O2 Saturation ABG Base Excess ABG Hemoglobin ABG Oxyhemoglobin ABG Sodium ABG Potassium ABG Chloride ABG Glucose VBG pH Carboxyhemoglobin Sodium 152 H Potassium Chloride 117.6 H Carbon Dioxide BUN 50 H Creatinine Glucose 140 H POC Glucose 127 H Lactic Acid Calcium 8.3 L Phosphorus Magnesium Ferritin AST ALT Ammonia Lactate Dehydrogenase Troponin T C-Reactive Protein Total Protein Albumin Triglycerides LDL Cholesterol Direct HDL Cholesterol Arterial Blood Glucose Arterial Blood Ionized Calcium Urine WBC (Auto) Urine Creatinine Vancomycin Trough Crossmatch 06/01/21 06/01/21 06/01/21 11:11 16:16 21:45 WBC RBC Hgb Hct MCV MCH MCHC RDW Plt Count Seg Neuts % (Manual) Lymphocytes % (Manual) Monocytes % (Manual) Nucleated RBC % Seg Neutrophils # Man Lymphocytes # (Manual) PT INR APTT D-Dimer ABG pH POC ABG pCO2 POC ABG pO2 ABG pO2 ABG HCO3 ABG O2 Saturation ABG Base Excess ABG Hemoglobin ABG Oxyhemoglobin ABG Sodium ABG Potassium ABG Chloride ABG Glucose VBG pH Carboxyhemoglobin Sodium Potassium Chloride Carbon Dioxide BUN Creatinine Glucose POC Glucose 120 H 129 H 150 H Lactic Acid Calcium Phosphorus Magnesium Ferritin AST ALT Ammonia Lactate Dehydrogenase Troponin T C-Reactive Protein Total Protein Albumin Triglycerides LDL Cholesterol Direct HDL Cholesterol Arterial Blood Glucose Arterial Blood Ionized Calcium Urine WBC (Auto) Urine Creatinine Vancomycin Trough Crossmatch 06/02/21 06/02/21 06/02/21 06:53 06:53 07:52 WBC RBC Hgb 10.4 L Hct 32.4 L MCV MCH 27 L MCHC RDW Plt Count Seg Neuts % (Manual) 93.0 H Lymphocytes % (Manual) 3.0 L Monocytes % (Manual) Nucleated RBC % Seg Neutrophils # Man Lymphocytes # (Manual) 0.2 L PT INR APTT D-Dimer ABG pH POC ABG pCO2 POC ABG pO2 ABG pO2 ABG HCO3 ABG O2 Saturation ABG Base Excess ABG Hemoglobin ABG Oxyhemoglobin ABG Sodium ABG Potassium ABG Chloride ABG Glucose VBG pH Carboxyhemoglobin Sodium 149 H Potassium Chloride 112.6 H Carbon Dioxide BUN 54 H Creatinine Glucose 123 H POC Glucose 116 H Lactic Acid Calcium 8.2 L Phosphorus Magnesium Ferritin AST ALT Ammonia Lactate Dehydrogenase Troponin T C-Reactive Protein Total Protein Albumin Triglycerides LDL Cholesterol Direct HDL Cholesterol Arterial Blood Glucose Arterial Blood Ionized Calcium Urine WBC (Auto) Urine Creatinine Vancomycin Trough Crossmatch 06/03/21 06/03/21 06/03/21 05:57 05:57 21:23 WBC RBC Hgb 10.7 L Hct 33.0 L MCV 83 L MCH 27 L MCHC RDW Plt Count Seg Neuts % (Manual) 88.0 H Lymphocytes % (Manual) 8.0 L Monocytes % (Manual) Nucleated RBC % 2.0 H Seg Neutrophils # Man Lymphocytes # (Manual) 0.6 L PT INR APTT D-Dimer ABG pH POC ABG pCO2 POC ABG pO2 39.0 L ABG pO2 ABG HCO3 ABG O2 Saturation ABG Base Excess ABG Hemoglobin ABG Oxyhemoglobin 69.1 L ABG Sodium 134.1 L ABG Potassium ABG Chloride ABG Glucose 135 H VBG pH Carboxyhemoglobin Sodium Potassium Chloride Carbon Dioxide BUN 36 H Creatinine Glucose 102 H POC Glucose Lactic Acid Calcium 8.0 L Phosphorus 2.20 L D Magnesium Ferritin AST ALT Ammonia Lactate Dehydrogenase Troponin T C-Reactive Protein Total Protein Albumin Triglycerides LDL Cholesterol Direct HDL Cholesterol Arterial Blood Glucose 135 H Arterial Blood Ionized Calcium Urine WBC (Auto) Urine Creatinine Vancomycin Trough Crossmatch 06/04/21 06/04/21 06/04/21 07:04 07:04 17:42 WBC RBC Hgb 11.3 L Hct 34.9 L MCV MCH 27 L MCHC RDW Plt Count Seg Neuts % (Manual) Lymphocytes % (Manual) 5.0 L Monocytes % (Manual) Nucleated RBC % Seg Neutrophils # Man 8.4 H Lymphocytes # (Manual) 0.5 L PT INR APTT D-Dimer ABG pH POC ABG pCO2 POC ABG pO2 ABG pO2 ABG HCO3 ABG O2 Saturation ABG Base Excess ABG Hemoglobin ABG Oxyhemoglobin ABG Sodium ABG Potassium ABG Chloride ABG Glucose VBG pH Carboxyhemoglobin Sodium Potassium Chloride Carbon Dioxide BUN 27 H Creatinine Glucose POC Glucose 136 H Lactic Acid Calcium 8.2 L Phosphorus Magnesium Ferritin AST ALT Ammonia Lactate Dehydrogenase Troponin T C-Reactive Protein Total Protein Albumin Triglycerides LDL Cholesterol Direct HDL Cholesterol Arterial Blood Glucose Arterial Blood Ionized Calcium Urine WBC (Auto) Urine Creatinine Vancomycin Trough Crossmatch 06/05/21 06/05/21 06/05/21 05:10 12:32 15:45 WBC RBC Hgb Hct MCV MCH MCHC RDW Plt Count Seg Neuts % (Manual) Lymphocytes % (Manual) Monocytes % (Manual) Nucleated RBC % Seg Neutrophils # Man Lymphocytes # (Manual) PT INR APTT D-Dimer ABG pH POC ABG pCO2 POC ABG pO2 ABG pO2 ABG HCO3 ABG O2 Saturation ABG Base Excess ABG Hemoglobin ABG Oxyhemoglobin ABG Sodium ABG Potassium ABG Chloride ABG Glucose VBG pH Carboxyhemoglobin Sodium Potassium 3.5 L Chloride Carbon Dioxide BUN 35 H Creatinine Glucose 130 H POC Glucose 122 H 119 H Lactic Acid Calcium 8.2 L Phosphorus Magnesium Ferritin AST ALT Ammonia Lactate Dehydrogenase Troponin T C-Reactive Protein Total Protein Albumin Triglycerides LDL Cholesterol Direct HDL Cholesterol Arterial Blood Glucose Arterial Blood Ionized Calcium Urine WBC (Auto) Urine Creatinine Vancomycin Trough Crossmatch 06/05/21 06/05/21 06/06/21 20:06 21:27 00:04 WBC RBC Hgb Hct MCV MCH MCHC RDW Plt Count Seg Neuts % (Manual) Lymphocytes % (Manual) Monocytes % (Manual) Nucleated RBC % Seg Neutrophils # Man Lymphocytes # (Manual) PT INR APTT D-Dimer ABG pH 7.456 H POC ABG pCO2 POC ABG pO2 ABG pO2 ABG HCO3 ABG O2 Saturation ABG Base Excess ABG Hemoglobin 10.3 L ABG Oxyhemoglobin ABG Sodium ABG Potassium 3.1 L ABG Chloride ABG Glucose 125 H VBG pH Carboxyhemoglobin 0.3 L Sodium Potassium Chloride Carbon Dioxide BUN Creatinine Glucose POC Glucose 113 H Lactic Acid Calcium Phosphorus Magnesium Ferritin AST ALT Ammonia Lactate Dehydrogenase Troponin T C-Reactive Protein 19.60 H Total Protein Albumin Triglycerides LDL Cholesterol Direct HDL Cholesterol Arterial Blood Glucose 125 H Arterial Blood Ionized Calcium Urine WBC (Auto) Urine Creatinine Vancomycin Trough Crossmatch 06/06/21 06/06/21 06/07/21 04:35 22:37 05:54 WBC RBC Hgb Hct MCV MCH MCHC RDW Plt Count Seg Neuts % (Manual) Lymphocytes % (Manual) Monocytes % (Manual) Nucleated RBC % Seg Neutrophils # Man Lymphocytes # (Manual) PT INR APTT D-Dimer ABG pH POC ABG pCO2 POC ABG pO2 ABG pO2 ABG HCO3 ABG O2 Saturation ABG Base Excess ABG Hemoglobin ABG Oxyhemoglobin ABG Sodium ABG Potassium ABG Chloride ABG Glucose VBG pH Carboxyhemoglobin Sodium Potassium Chloride Carbon Dioxide BUN 43 H Creatinine Glucose POC Glucose 114 H 130 H Lactic Acid Calcium 7.6 L Phosphorus Magnesium Ferritin AST ALT Ammonia Lactate Dehydrogenase Troponin T C-Reactive Protein Total Protein Albumin Triglycerides LDL Cholesterol Direct HDL Cholesterol Arterial Blood Glucose Arterial Blood Ionized Calcium Urine WBC (Auto) Urine Creatinine Vancomycin Trough Crossmatch 06/07/21 06/07/21 06/07/21 07:32 10:03 11:36 WBC RBC 3.63 L Hgb 9.8 L Hct 30.3 L MCV 83 L MCH 27 L MCHC RDW Plt Count Seg Neuts % (Manual) Lymphocytes % (Manual) Monocytes % (Manual) Nucleated RBC % Seg Neutrophils # Man Lymphocytes # (Manual) PT INR APTT D-Dimer ABG pH POC ABG pCO2 POC ABG pO2 ABG pO2 ABG HCO3 ABG O2 Saturation ABG Base Excess ABG Hemoglobin ABG Oxyhemoglobin ABG Sodium ABG Potassium ABG Chloride ABG Glucose VBG pH Carboxyhemoglobin Sodium Potassium 3.2 L Chloride 108.5 H Carbon Dioxide BUN 36 H Creatinine Glucose 139 H POC Glucose 125 H Lactic Acid Calcium 8.0 L Phosphorus Magnesium Ferritin AST ALT Ammonia Lactate Dehydrogenase Troponin T C-Reactive Protein Total Protein Albumin Triglycerides LDL Cholesterol Direct HDL Cholesterol Arterial Blood Glucose Arterial Blood Ionized Calcium Urine WBC (Auto) Urine Creatinine Vancomycin Trough Crossmatch 06/07/21 06/07/21 06/08/21 17:54 22:14 07:18 WBC RBC Hgb Hct MCV MCH MCHC RDW Plt Count Seg Neuts % (Manual) Lymphocytes % (Manual) Monocytes % (Manual) Nucleated RBC % Seg Neutrophils # Man Lymphocytes # (Manual) PT INR APTT D-Dimer ABG pH POC ABG pCO2 POC ABG pO2 ABG pO2 ABG HCO3 ABG O2 Saturation ABG Base Excess ABG Hemoglobin ABG Oxyhemoglobin ABG Sodium ABG Potassium ABG Chloride ABG Glucose VBG pH Carboxyhemoglobin Sodium 149 H Potassium Chloride 110.2 H Carbon Dioxide BUN 31 H Creatinine Glucose 131 H POC Glucose 121 H 131 H Lactic Acid Calcium 8.1 L Phosphorus Magnesium Ferritin AST ALT Ammonia Lactate Dehydrogenase Troponin T C-Reactive Protein Total Protein Albumin Triglycerides LDL Cholesterol Direct HDL Cholesterol Arterial Blood Glucose Arterial Blood Ionized Calcium Urine WBC (Auto) Urine Creatinine Vancomycin Trough Crossmatch 06/08/21 06/08/21 06/08/21 07:45 12:07 18:02 WBC RBC Hgb Hct MCV MCH MCHC RDW Plt Count Seg Neuts % (Manual) Lymphocytes % (Manual) Monocytes % (Manual) Nucleated RBC % Seg Neutrophils # Man Lymphocytes # (Manual) PT INR APTT D-Dimer ABG pH POC ABG pCO2 POC ABG pO2 ABG pO2 ABG HCO3 ABG O2 Saturation ABG Base Excess ABG Hemoglobin ABG Oxyhemoglobin ABG Sodium ABG Potassium ABG Chloride ABG Glucose VBG pH Carboxyhemoglobin Sodium Potassium Chloride Carbon Dioxide BUN Creatinine Glucose POC Glucose 120 H 127 H 148 H Lactic Acid Calcium Phosphorus Magnesium Ferritin AST ALT Ammonia Lactate Dehydrogenase Troponin T C-Reactive Protein Total Protein Albumin Triglycerides LDL Cholesterol Direct HDL Cholesterol Arterial Blood Glucose Arterial Blood Ionized Calcium Urine WBC (Auto) Urine Creatinine Vancomycin Trough Crossmatch 06/09/21 06/09/21 06/09/21 05:51 05:51 11:37 WBC 3.9 L RBC 3.38 L Hgb 9.4 L Hct 28.5 L MCV MCH MCHC RDW Plt Count Seg Neuts % (Manual) Lymphocytes % (Manual) Monocytes % (Manual) Nucleated RBC % Seg Neutrophils # Man Lymphocytes # (Manual) PT INR APTT D-Dimer ABG pH POC ABG pCO2 POC ABG pO2 ABG pO2 ABG HCO3 ABG O2 Saturation ABG Base Excess ABG Hemoglobin ABG Oxyhemoglobin ABG Sodium ABG Potassium ABG Chloride ABG Glucose VBG pH Carboxyhemoglobin Sodium Potassium Chloride 108.4 H Carbon Dioxide BUN 32 H Creatinine Glucose 137 H POC Glucose 115 H Lactic Acid Calcium 7.5 L Phosphorus Magnesium Ferritin AST 55 H ALT Ammonia Lactate Dehydrogenase Troponin T C-Reactive Protein 4.10 H Total Protein 5.6 L Albumin 2.0 L Triglycerides LDL Cholesterol Direct HDL Cholesterol Arterial Blood Glucose Arterial Blood Ionized Calcium Urine WBC (Auto) Urine Creatinine Vancomycin Trough Crossmatch 06/09/21 06/09/21 06/10/21 17:32 22:18 01:52 WBC RBC 3.62 L Hgb 9.9 L Hct 29.8 L MCV 82 L MCH 27 L MCHC RDW Plt Count Seg Neuts % (Manual) Lymphocytes % (Manual) Monocytes % (Manual) Nucleated RBC % Seg Neutrophils # Man Lymphocytes # (Manual) PT INR APTT D-Dimer ABG pH POC ABG pCO2 POC ABG pO2 ABG pO2 ABG HCO3 ABG O2 Saturation ABG Base Excess ABG Hemoglobin ABG Oxyhemoglobin ABG Sodium ABG Potassium ABG Chloride ABG Glucose VBG pH Carboxyhemoglobin Sodium Potassium Chloride Carbon Dioxide BUN Creatinine Glucose POC Glucose 113 H 110 H Lactic Acid Calcium Phosphorus Magnesium Ferritin AST ALT Ammonia Lactate Dehydrogenase Troponin T C-Reactive Protein Total Protein Albumin Triglycerides LDL Cholesterol Direct HDL Cholesterol Arterial Blood Glucose Arterial Blood Ionized Calcium Urine WBC (Auto) Urine Creatinine Vancomycin Trough Crossmatch 06/10/21 06/10/21 06/10/21 01:52 16:14 22:45 WBC RBC Hgb Hct MCV MCH MCHC RDW Plt Count Seg Neuts % (Manual) Lymphocytes % (Manual) Monocytes % (Manual) Nucleated RBC % Seg Neutrophils # Man Lymphocytes # (Manual) PT INR APTT D-Dimer ABG pH POC ABG pCO2 POC ABG pO2 ABG pO2 ABG HCO3 ABG O2 Saturation ABG Base Excess ABG Hemoglobin ABG Oxyhemoglobin ABG Sodium ABG Potassium ABG Chloride ABG Glucose VBG pH Carboxyhemoglobin Sodium Potassium Chloride 108.2 H Carbon Dioxide BUN 32 H Creatinine 1.4 H Glucose POC Glucose 111 H 107 H Lactic Acid Calcium 7.8 L Phosphorus Magnesium Ferritin AST 55 H ALT Ammonia Lactate Dehydrogenase Troponin T C-Reactive Protein Total Protein 5.6 L Albumin 1.9 L Triglycerides LDL Cholesterol Direct HDL Cholesterol Arterial Blood Glucose Arterial Blood Ionized Calcium Urine WBC (Auto) Urine Creatinine Vancomycin Trough Crossmatch 06/11/21 06/11/21 06/11/21 05:51 05:51 05:51 WBC RBC 3.35 L Hgb 9.1 L Hct 28.1 L MCV MCH 27 L MCHC RDW Plt Count 117 L Seg Neuts % (Manual) 93.0 H Lymphocytes % (Manual) 1.0 L Monocytes % (Manual) Nucleated RBC % Seg Neutrophils # Man Lymphocytes # (Manual) 0.0 L PT INR APTT D-Dimer ABG pH POC ABG pCO2 POC ABG pO2 ABG pO2 ABG HCO3 ABG O2 Saturation ABG Base Excess ABG Hemoglobin ABG Oxyhemoglobin ABG Sodium ABG Potassium ABG Chloride ABG Glucose VBG pH Carboxyhemoglobin Sodium 146 H Potassium Chloride 110.9 H Carbon Dioxide BUN 40 H Creatinine Glucose 119 H POC Glucose Lactic Acid Calcium 7.8 L Phosphorus Magnesium Ferritin AST ALT Ammonia Lactate Dehydrogenase Troponin T C-Reactive Protein Total Protein Albumin Triglycerides LDL Cholesterol Direct HDL Cholesterol Arterial Blood Glucose Arterial Blood Ionized Calcium Urine WBC (Auto) Urine Creatinine Vancomycin Trough 22.6 H Crossmatch 06/11/21 06/11/21 06/11/21 08:28 11:36 15:47 WBC RBC Hgb Hct MCV MCH MCHC RDW Plt Count Seg Neuts % (Manual) Lymphocytes % (Manual) Monocytes % (Manual) Nucleated RBC % Seg Neutrophils # Man Lymphocytes # (Manual) PT INR APTT D-Dimer ABG pH POC ABG pCO2 POC ABG pO2 ABG pO2 ABG HCO3 ABG O2 Saturation ABG Base Excess ABG Hemoglobin ABG Oxyhemoglobin ABG Sodium ABG Potassium ABG Chloride ABG Glucose VBG pH Carboxyhemoglobin Sodium Potassium Chloride Carbon Dioxide BUN Creatinine Glucose POC Glucose 109 H 149 H 139 H Lactic Acid Calcium Phosphorus Magnesium Ferritin AST ALT Ammonia Lactate Dehydrogenase Troponin T C-Reactive Protein Total Protein Albumin Triglycerides LDL Cholesterol Direct HDL Cholesterol Arterial Blood Glucose Arterial Blood Ionized Calcium Urine WBC (Auto) Urine Creatinine Vancomycin Trough Crossmatch 06/11/21 06/12/21 06/12/21 21:42 04:00 04:00 WBC 4.0 L RBC 3.50 L Hgb 9.4 L Hct 29.9 L MCV MCH 27 L MCHC 31 L RDW 15.3 H Plt Count 126 L Seg Neuts % (Manual) 88.0 H Lymphocytes % (Manual) Monocytes % (Manual) 12.0 H Nucleated RBC % Seg Neutrophils # Man Lymphocytes # (Manual) 0.0 L PT INR APTT D-Dimer ABG pH POC ABG pCO2 POC ABG pO2 ABG pO2 ABG HCO3 ABG O2 Saturation ABG Base Excess ABG Hemoglobin ABG Oxyhemoglobin ABG Sodium ABG Potassium ABG Chloride ABG Glucose VBG pH Carboxyhemoglobin Sodium 149 H Potassium Chloride 114.1 H Carbon Dioxide BUN 37 H Creatinine Glucose 137 H POC Glucose 124 H Lactic Acid Calcium 8.0 L Phosphorus Magnesium Ferritin AST ALT Ammonia Lactate Dehydrogenase Troponin T C-Reactive Protein Total Protein Albumin Triglycerides LDL Cholesterol Direct HDL Cholesterol Arterial Blood Glucose Arterial Blood Ionized Calcium Urine WBC (Auto) Urine Creatinine Vancomycin Trough Crossmatch 06/12/21 06/13/2106/13/21 06:37 00:14 06:05 WBC 4.3 L RBC 3.39 L Hgb 9.2 L Hct 28.6 L MCV MCH 27 L MCHC RDW 15.3 H Plt Count 107 L Seg Neuts % (Manual) 77.0 H Lymphocytes % (Manual) 1.0 L Monocytes % (Manual) Nucleated RBC % 1.0 H Seg Neutrophils # Man Lymphocytes # (Manual) 0.0 L PT INR APTT D-Dimer ABG pH POC ABG pCO2 POC ABG pO2 ABG pO2 ABG HCO3 ABG O2 Saturation ABG Base Excess ABG Hemoglobin ABG Oxyhemoglobin ABG Sodium ABG Potassium ABG Chloride ABG Glucose VBG pH Carboxyhemoglobin Sodium Potassium Chloride Carbon Dioxide BUN Creatinine Glucose POC Glucose 128 H 149 H Lactic Acid Calcium Phosphorus Magnesium Ferritin AST ALT Ammonia Lactate Dehydrogenase Troponin T C-Reactive Protein Total Protein Albumin Triglycerides LDL Cholesterol Direct HDL Cholesterol Arterial Blood Glucose Arterial Blood Ionized Calcium Urine WBC (Auto) Urine Creatinine Vancomycin Trough Crossmatch 06/13/21 06/13/21 06/14/21 06:05 11:51 04:29 WBC 4.2 L RBC 3.21 L Hgb 8.7 L Hct 26.7 L MCV 83 L MCH 27 L MCHC RDW 15.3 H Plt Count 87 L Seg Neuts % (Manual) 96 H Lymphocytes % (Manual) 2 L Monocytes % (Manual) Nucleated RBC % Seg Neutrophils # Man Lymphocytes # (Manual) 0.0 L PT INR APTT D-Dimer ABG pH POC ABG pCO2 POC ABG pO2 48.3 L ABG pO2 ABG HCO3 ABG O2 Saturation ABG Base Excess ABG Hemoglobin 10.7 L ABG Oxyhemoglobin 84.1 L ABG Sodium 145.5 H ABG Potassium ABG Chloride 116.0 H ABG Glucose VBG pH Carboxyhemoglobin Sodium 146 H Potassium 3.5 L Chloride 112.3 H Carbon Dioxide BUN 38 H Creatinine Glucose 112 H POC Glucose Lactic Acid Calcium 8.1 L Phosphorus Magnesium Ferritin AST ALT Ammonia Lactate Dehydrogenase Troponin T C-Reactive Protein Total Protein Albumin Triglycerides LDL Cholesterol Direct HDL Cholesterol Arterial Blood Glucose Arterial Blood Ionized Calcium Urine WBC (Auto) Urine Creatinine Vancomycin Trough Crossmatch 06/14/21 06/14/21 06/14/21 04:29 06:17 23:51 WBC RBC Hgb Hct MCV MCH MCHC RDW Plt Count Seg Neuts % (Manual) Lymphocytes % (Manual) Monocytes % (Manual) Nucleated RBC % Seg Neutrophils # Man Lymphocytes # (Manual) PT INR APTT D-Dimer ABG pH POC ABG pCO2 POC ABG pO2 ABG pO2 ABG HCO3 ABG O2 Saturation ABG Base Excess ABG Hemoglobin ABG Oxyhemoglobin ABG Sodium ABG Potassium ABG Chloride ABG Glucose VBG pH Carboxyhemoglobin Sodium 148 H Potassium Chloride 115.3 H Carbon Dioxide BUN 40 H Creatinine Glucose 124 H POC Glucose 106 H 135 H Lactic Acid Calcium 8.2 L Phosphorus Magnesium Ferritin AST ALT Ammonia Lactate Dehydrogenase Troponin T C-Reactive Protein Total Protein Albumin Triglycerides LDL Cholesterol Direct HDL Cholesterol Arterial Blood Glucose Arterial Blood Ionized Calcium Urine WBC (Auto) Urine Creatinine Vancomycin Trough Crossmatch 06/15/21 06/15/21 06/15/21 05:23 05:53 05:53 WBC 3.8 L RBC 2.94 L Hgb 8.0 L Hct 24.0 L MCV 81 L MCH 27 L MCHC RDW 15.6 H Plt Count 87 L Seg Neuts % (Manual) 95.0 H Lymphocytes % (Manual) 1.0 L Monocytes % (Manual) Nucleated RBC % 1.0 H Seg Neutrophils # Man Lymphocytes # (Manual) 0.0 L PT INR APTT D-Dimer ABG pH POC ABG pCO2 POC ABG pO2 ABG pO2 ABG HCO3 ABG O2 Saturation ABG Base Excess ABG Hemoglobin ABG Oxyhemoglobin ABG Sodium ABG Potassium ABG Chloride ABG Glucose VBG pH Carboxyhemoglobin Sodium Potassium Chloride 110.5 H Carbon Dioxide BUN 43 H Creatinine Glucose 143 H POC Glucose 134 H Lactic Acid Calcium 8.1 L Phosphorus 2.10 L D Magnesium Ferritin AST ALT Ammonia Lactate Dehydrogenase Troponin T C-Reactive Protein Total Protein Albumin Triglycerides LDL Cholesterol Direct HDL Cholesterol Arterial Blood Glucose Arterial Blood Ionized Calcium Urine WBC (Auto) Urine Creatinine Vancomycin Trough Crossmatch 06/16/21 06/16/21 06/16/21 05:22 05:59 05:59 WBC 3.4 L RBC 3.34 L Hgb 9.0 L Hct 27.9 L MCV MCH 27 L MCHC RDW 15.5 H Plt Count 72 L Seg Neuts % (Manual) 97.0 H Lymphocytes % (Manual) Monocytes % (Manual) Nucleated RBC % Seg Neutrophils # Man Lymphocytes # (Manual) 0.0 L PT INR APTT D-Dimer ABG pH POC ABG pCO2 POC ABG pO2 ABG pO2 ABG HCO3 ABG O2 Saturation ABG Base Excess ABG Hemoglobin ABG Oxyhemoglobin ABG Sodium ABG Potassium ABG Chloride ABG Glucose VBG pH Carboxyhemoglobin Sodium Potassium Chloride 108.8 H Carbon Dioxide BUN 53 H Creatinine 1.4 H Glucose 160 H POC Glucose 141 H Lactic Acid Calcium 8.1 L Phosphorus Magnesium Ferritin AST ALT Ammonia Lactate Dehydrogenase Troponin T C-Reactive Protein Total Protein Albumin Triglycerides LDL Cholesterol Direct HDL Cholesterol Arterial Blood Glucose Arterial Blood Ionized Calcium Urine WBC (Auto) Urine Creatinine Vancomycin Trough Crossmatch 06/16/21 06/16/21 06/17/21 11:31 17:08 06:25 WBC 4.4 L RBC 3.14 L Hgb 8.5 L Hct 25.7 L MCV 82 L MCH 27 L MCHC RDW 15.7 H Plt Count 64 L Seg Neuts % (Manual) 95.0 H Lymphocytes % (Manual) Monocytes % (Manual) Nucleated RBC % Seg Neutrophils # Man Lymphocytes # (Manual) 0.0 L PT INR APTT D-Dimer ABG pH POC ABG pCO2 POC ABG pO2 ABG pO2 ABG HCO3 ABG O2 Saturation ABG Base Excess ABG Hemoglobin ABG Oxyhemoglobin ABG Sodium ABG Potassium ABG Chloride ABG Glucose VBG pH Carboxyhemoglobin Sodium Potassium Chloride Carbon Dioxide BUN Creatinine Glucose POC Glucose 129 H 136 H Lactic Acid Calcium Phosphorus Magnesium Ferritin AST ALT Ammonia Lactate Dehydrogenase Troponin T C-Reactive Protein Total Protein Albumin Triglycerides LDL Cholesterol Direct HDL Cholesterol Arterial Blood Glucose Arterial Blood Ionized Calcium Urine WBC (Auto) Urine Creatinine Vancomycin Trough Crossmatch 06/17/21 06/17/21 06/17/21 06:25 18:19 18:38 WBC RBC Hgb Hct MCV MCH MCHC RDW Plt Count Seg Neuts % (Manual) Lymphocytes % (Manual) Monocytes % (Manual) Nucleated RBC % Seg Neutrophils # Man Lymphocytes # (Manual) PT INR APTT D-Dimer ABG pH 7.184 L POC ABG pCO2 65.8 H POC ABG pO2 130.5 H ABG pO2 ABG HCO3 ABG O2 Saturation ABG Base Excess ABG Hemoglobin 10.2 L ABG Oxyhemoglobin ABG Sodium ABG Potassium ABG Chloride 108.0 H ABG Glucose 229 H VBG pH Carboxyhemoglobin Sodium Potassium Chloride Carbon Dioxide BUN 62 H Creatinine Glucose 135 H POC Glucose 206 H Lactic Acid Calcium 7.8 L Phosphorus Magnesium Ferritin AST ALT Ammonia Lactate Dehydrogenase Troponin T C-Reactive Protein Total Protein Albumin Triglycerides LDL Cholesterol Direct HDL Cholesterol Arterial Blood Glucose 229 H Arterial Blood Ionized Calcium Urine WBC (Auto) Urine Creatinine Vancomycin Trough Crossmatch 06/18/21 06/18/21 06/18/21 00:29 05:15 10:56 WBC RBC Hgb Hct MCV MCH MCHC RDW Plt Count Seg Neuts % (Manual) Lymphocytes % (Manual) Monocytes % (Manual) Nucleated RBC % Seg Neutrophils # Man Lymphocytes # (Manual) PT INR APTT D-Dimer ABG pH POC ABG pCO2 POC ABG pO2 ABG pO2 ABG HCO3 ABG O2 Saturation ABG Base Excess ABG Hemoglobin ABG Oxyhemoglobin ABG Sodium ABG Potassium ABG Chloride ABG Glucose VBG pH Carboxyhemoglobin Sodium Potassium Chloride Carbon Dioxide BUN Creatinine Glucose POC Glucose 142 H 152 H Lactic Acid Calcium Phosphorus 5.60 H D Magnesium Ferritin AST ALT Ammonia Lactate Dehydrogenase Troponin T C-Reactive Protein Total Protein Albumin Triglycerides LDL Cholesterol Direct HDL Cholesterol Arterial Blood Glucose Arterial Blood Ionized Calcium Urine WBC (Auto) Urine Creatinine Vancomycin Trough Crossmatch 06/18/21 06/18/21 06/18/21 15:02 15:02 15:02 WBC 4.4 L RBC 3.39 L Hgb 9.7 L Hct 28.4 L MCV MCH MCHC RDW 16.3 H Plt Count 65 L Seg Neuts % (Manual) Lymphocytes % (Manual) Monocytes % (Manual) Nucleated RBC % Seg Neutrophils # Man Lymphocytes # (Manual) PT 15.6 H INR APTT 41.2 H D-Dimer ABG pH POC ABG pCO2 POC ABG pO2 ABG pO2 ABG HCO3 ABG O2 Saturation ABG Base Excess ABG Hemoglobin ABG Oxyhemoglobin ABG Sodium ABG Potassium ABG Chloride ABG Glucose VBG pH Carboxyhemoglobin Sodium Potassium Chloride Carbon Dioxide BUN Creatinine 2.0 H Glucose POC Glucose Lactic Acid Calcium Phosphorus Magnesium Ferritin AST ALT Ammonia Lactate Dehydrogenase Troponin T C-Reactive Protein Total Protein Albumin Triglycerides LDL Cholesterol Direct HDL Cholesterol Arterial Blood Glucose Arterial Blood Ionized Calcium Urine WBC (Auto) Urine Creatinine Vancomycin Trough Crossmatch 06/18/21 06/18/21 06/18/21 Unknown Unknown Unknown WBC 4.0 L RBC 2.72 L Hgb 8.0 L Hct 24.0 L MCV MCH MCHC RDW 17.2 H Plt Count 60 L Seg Neuts % (Manual) Lymphocytes % (Manual) Monocytes % (Manual) Nucleated RBC % Seg Neutrophils # Man Lymphocytes # (Manual) PT INR APTT D-Dimer ABG pH POC ABG pCO2 POC ABG pO2 ABG pO2 ABG HCO3 ABG O2 Saturation ABG Base Excess ABG Hemoglobin ABG Oxyhemoglobin ABG Sodium ABG Potassium ABG Chloride ABG Glucose VBG pH Carboxyhemoglobin Sodium 134 L D Potassium 6.0 H D Chloride Carbon Dioxide BUN 80 H Creatinine 1.8 H Glucose 395 H POC Glucose Lactic Acid Calcium 6.9 L Phosphorus Magnesium Ferritin AST < 5 L ALT < 5 L Ammonia Lactate Dehydrogenase Troponin T C-Reactive Protein Total Protein 4.9 L Albumin 1.4 L Triglycerides LDL Cholesterol Direct HDL Cholesterol Arterial Blood Glucose Arterial Blood Ionized Calcium Urine WBC (Auto) 10.0 H Urine Creatinine Vancomycin Trough Crossmatch 06/19/21 06/19/21 06/19/21 02:41 04:53 05:37 WBC RBC Hgb Hct MCV MCH MCHC RDW Plt Count Seg Neuts % (Manual) Lymphocytes % (Manual) Monocytes % (Manual) Nucleated RBC % Seg Neutrophils # Man Lymphocytes # (Manual) PT INR APTT D-Dimer ABG pH 7.270 L POC ABG pCO2 49.0 H POC ABG pO2 ABG pO2 ABG HCO3 ABG O2 Saturation ABG Base Excess ABG Hemoglobin 8.8 L ABG Oxyhemoglobin ABG Sodium ABG Potassium ABG Chloride 111.0 H ABG Glucose 110 H VBG pH Carboxyhemoglobin Sodium Potassium Chloride Carbon Dioxide BUN 92 H Creatinine 3.2 H D Glucose 123 H POC Glucose 114 H Lactic Acid Calcium 7.4 L Phosphorus Magnesium Ferritin AST ALT Ammonia Lactate Dehydrogenase Troponin T C-Reactive Protein Total Protein Albumin Triglycerides LDL Cholesterol Direct HDL Cholesterol Arterial Blood Glucose 110 H Arterial Blood Ionized Calcium Urine WBC (Auto) Urine Creatinine Vancomycin Trough Crossmatch 06/19/21 06/19/21 06/19/21 08:55 09:37 09:41 WBC RBC 2.91 L Hgb 7.9 L Hct 24.4 L MCV MCH 27 L MCHC RDW 16.5 H Plt Count 64 L Seg Neuts % (Manual) Lymphocytes % (Manual) Monocytes % (Manual) Nucleated RBC % Seg Neutrophils # Man Lymphocytes # (Manual) PT 19.2 H INR 1.46 H APTT 54.3 H D-Dimer ABG pH POC ABG pCO2 POC ABG pO2 ABG pO2 ABG HCO3 ABG O2 Saturation ABG Base Excess ABG Hemoglobin ABG Oxyhemoglobin ABG Sodium ABG Potassium ABG Chloride ABG Glucose VBG pH Carboxyhemoglobin Sodium 146 H Potassium Chloride Carbon Dioxide BUN Creatinine 3.5 H Glucose POC Glucose Lactic Acid Calcium Phosphorus Magnesium Ferritin AST ALT Ammonia Lactate Dehydrogenase Troponin T C-Reactive Protein Total Protein Albumin Triglycerides LDL Cholesterol Direct HDL Cholesterol Arterial Blood Glucose Arterial Blood Ionized Calcium Urine WBC (Auto) Urine Creatinine Vancomycin Trough Crossmatch 06/19/21 06/19/21 06/19/21 11:14 12:19 16:15 WBC RBC Hgb Hct MCV MCH MCHC RDW Plt Count Seg Neuts % (Manual) Lymphocytes % (Manual) Monocytes % (Manual) Nucleated RBC % Seg Neutrophils # Man Lymphocytes # (Manual) PT INR APTT D-Dimer ABG pH POC ABG pCO2 POC ABG pO2 ABG pO2 ABG HCO3 ABG O2 Saturation ABG Base Excess ABG Hemoglobin ABG Oxyhemoglobin ABG Sodium ABG Potassium ABG Chloride ABG Glucose VBG pH Carboxyhemoglobin Sodium Potassium Chloride Carbon Dioxide BUN Creatinine Glucose POC Glucose Lactic Acid Calcium Phosphorus Magnesium Ferritin AST ALT Ammonia Lactate Dehydrogenase Troponin T 0.109 H* C-Reactive Protein 11.50 H Total Protein Albumin Triglycerides 295 H LDL Cholesterol Direct 24 L HDL Cholesterol 17 L Arterial Blood Glucose Arterial Blood Ionized Calcium Urine WBC (Auto) Urine Creatinine 49.9 H Vancomycin Trough Crossmatch 06/19/21 06/19/21 06/20/21 18:05 22:40 05:00 WBC 4.1 L RBC 2.66 L Hgb 7.3 L Hct 22.5 L MCV MCH MCHC RDW 16.9 H Plt Count 60 L Seg Neuts % (Manual) Lymphocytes % (Manual) Monocytes % (Manual) Nucleated RBC % Seg Neutrophils # Man Lymphocytes # (Manual) PT INR APTT D-Dimer ABG pH POC ABG pCO2 POC ABG pO2 ABG pO2 ABG HCO3 ABG O2 Saturation ABG Base Excess ABG Hemoglobin ABG Oxyhemoglobin ABG Sodium ABG Potassium ABG Chloride ABG Glucose VBG pH Carboxyhemoglobin Sodium Potassium Chloride Carbon Dioxide BUN Creatinine Glucose POC Glucose 131 H 121 H Lactic Acid Calcium Phosphorus Magnesium Ferritin AST ALT Ammonia Lactate Dehydrogenase Troponin T C-Reactive Protein Total Protein Albumin Triglycerides LDL Cholesterol Direct HDL Cholesterol Arterial Blood Glucose Arterial Blood Ionized Calcium Urine WBC (Auto) Urine Creatinine Vancomycin Trough Crossmatch 06/20/21 06/20/21 06/20/21 05:00 05:00 05:17 WBC RBC Hgb Hct MCV MCH MCHC RDW Plt Count Seg Neuts % (Manual) Lymphocytes % (Manual) Monocytes % (Manual) Nucleated RBC % Seg Neutrophils # Man Lymphocytes # (Manual) PT INR APTT D-Dimer ABG pH POC ABG pCO2 POC ABG pO2 ABG pO2 ABG HCO3 ABG O2 Saturation ABG Base Excess ABG Hemoglobin ABG Oxyhemoglobin ABG Sodium ABG Potassium ABG Chloride ABG Glucose VBG pH Carboxyhemoglobin Sodium Potassium Chloride 111.6 H Carbon Dioxide 20 L BUN 108 H Creatinine 4.3 H Glucose 152 H POC Glucose 137 H Lactic Acid Calcium 7.1 L Phosphorus Magnesium Ferritin AST ALT Ammonia Lactate Dehydrogenase Troponin T 0.105 H* C-Reactive Protein Total Protein Albumin Triglycerides LDL Cholesterol Direct HDL Cholesterol Arterial Blood Glucose Arterial Blood Ionized Calcium Urine WBC (Auto) Urine Creatinine Vancomycin Trough Crossmatch 06/20/21 06/20/21 06/20/21 11:40 12:35 13:26 WBC RBC Hgb Hct MCV MCH MCHC RDW Plt Count Seg Neuts % (Manual) Lymphocytes % (Manual) Monocytes % (Manual) Nucleated RBC % Seg Neutrophils # Man Lymphocytes # (Manual) PT INR APTT D-Dimer ABG pH 6.994 L POC ABG pCO2 70.2 H POC ABG pO2 ABG pO2 ABG HCO3 ABG O2 Saturation ABG Base Excess ABG Hemoglobin 8.1 L ABG Oxyhemoglobin ABG Sodium ABG Potassium ABG Chloride 111.0 H ABG Glucose 207 H VBG pH Carboxyhemoglobin Sodium Potassium Chloride Carbon Dioxide BUN Creatinine Glucose POC Glucose 186 H Lactic Acid Calcium Phosphorus Magnesium Ferritin AST ALT Ammonia Lactate Dehydrogenase Troponin T C-Reactive Protein Total Protein Albumin Triglycerides LDL Cholesterol Direct HDL Cholesterol Arterial Blood Glucose 207 H Arterial Blood Ionized Calcium Urine WBC (Auto) 46.0 H Urine Creatinine Vancomycin Trough Crossmatch 06/20/21 06/20/21 06/20/21 13:54 13:54 17:38 WBC RBC 2.26 L Hgb 6.1 L Hct 19.6 L* MCV MCH 27 L MCHC RDW 17.6 H Plt Count 65 L Seg Neuts % (Manual) Lymphocytes % (Manual) Monocytes % (Manual) Nucleated RBC % Seg Neutrophils # Man Lymphocytes # (Manual) PT INR APTT D-Dimer ABG pH POC ABG pCO2 POC ABG pO2 ABG pO2 ABG HCO3 ABG O2 Saturation ABG Base Excess ABG Hemoglobin ABG Oxyhemoglobin ABG Sodium ABG Potassium ABG Chloride ABG Glucose VBG pH Carboxyhemoglobin Sodium 147 H Potassium 3.0 L D Chloride Carbon Dioxide 33 H D BUN 90 H Creatinine 3.3 H Glucose 771 H* POC Glucose 198 H Lactic Acid Calcium 5.3 L* D Phosphorus Magnesium Ferritin AST 41 H ALT Ammonia Lactate Dehydrogenase Troponin T C-Reactive Protein Total Protein 3.5 L D Albumin 1.0 L Triglycerides LDL Cholesterol Direct HDL Cholesterol Arterial Blood Glucose Arterial Blood Ionized Calcium Urine WBC (Auto) Urine Creatinine Vancomycin Trough Crossmatch 06/20/21 06/20/21 06/20/21 18:00 18:09 22:38 WBC RBC Hgb Hct MCV MCH MCHC RDW Plt Count Seg Neuts % (Manual) Lymphocytes % (Manual) Monocytes % (Manual) Nucleated RBC % Seg Neutrophils # Man Lymphocytes # (Manual) PT INR APTT D-Dimer ABG pH 7.189 L* POC ABG pCO2 POC ABG pO2 ABG pO2 209.0 H ABG HCO3 26.1 H ABG O2 Saturation 99.1 H ABG Base Excess -2.3 L ABG Hemoglobin 7.4 L ABG Oxyhemoglobin ABG Sodium ABG Potassium ABG Chloride ABG Glucose VBG pH Carboxyhemoglobin Sodium Potassium Chloride Carbon Dioxide BUN Creatinine Glucose POC Glucose 151 H Lactic Acid Calcium Phosphorus Magnesium Ferritin AST ALT Ammonia Lactate Dehydrogenase Troponin T C-Reactive Protein Total Protein Albumin Triglycerides LDL Cholesterol Direct HDL Cholesterol Arterial Blood Glucose Arterial Blood Ionized Calcium Urine WBC (Auto) Urine Creatinine Vancomycin Trough Crossmatch See Detail 06/20/21 06/21/21 06/21/21 23:12 04:21 05:36 WBC RBC Hgb Hct MCV MCH MCHC RDW Plt Count Seg Neuts % (Manual) Lymphocytes % (Manual) Monocytes % (Manual) Nucleated RBC % Seg Neutrophils # Man Lymphocytes # (Manual) PT INR APTT D-Dimer ABG pH 7.31 L POC ABG pCO2 55.4 H POC ABG pO2 156.5 H ABG pO2 ABG HCO3 ABG O2 Saturation ABG Base Excess ABG Hemoglobin 9.0 L ABG Oxyhemoglobin ABG Sodium ABG Potassium 3.3 L ABG Chloride ABG Glucose VBG pH Carboxyhemoglobin Sodium Potassium Chloride Carbon Dioxide BUN Creatinine Glucose POC Glucose 184 H 128 H Lactic Acid Calcium Phosphorus Magnesium Ferritin AST ALT Ammonia Lactate Dehydrogenase Troponin T C-Reactive Protein Total Protein Albumin Triglycerides LDL Cholesterol Direct HDL Cholesterol Arterial Blood Glucose Arterial Blood Ionized Calcium Urine WBC (Auto) Urine Creatinine Vancomycin Trough Crossmatch 06/21/21 06/21/21 06/21/21 07:45 07:45 07:45 WBC 3.3 L RBC 3.08 L Hgb 8.7 L Hct 25.6 L D MCV 83 L MCH MCHC RDW 16.2 H Plt Count 49 L Seg Neuts % (Manual) Lymphocytes % (Manual) Monocytes % (Manual) Nucleated RBC % Seg Neutrophils # Man Lymphocytes # (Manual) PT INR APTT D-Dimer ABG pH POC ABG pCO2 POC ABG pO2 ABG pO2 ABG HCO3 ABG O2 Saturation ABG Base Excess ABG Hemoglobin ABG Oxyhemoglobin ABG Sodium ABG Potassium ABG Chloride ABG Glucose VBG pH Carboxyhemoglobin Sodium Potassium 3.5 L 3.5 L Chloride 108.0 H 107.4 H Carbon Dioxide BUN 86 H 84 H Creatinine 3.5 H 3.4 H Glucose 157 H 158 H POC Glucose Lactic Acid Calcium 7.4 L D 7.6 L Phosphorus Magnesium Ferritin AST 51 H ALT Ammonia Lactate Dehydrogenase Troponin T C-Reactive Protein Total Protein 3.9 L Albumin 1.3 L Triglycerides LDL Cholesterol Direct HDL Cholesterol Arterial Blood Glucose Arterial Blood Ionized Calcium Urine WBC (Auto) Urine Creatinine Vancomycin Trough Crossmatch 06/21/21 06/21/21 06/21/21 11:46 17:28 23:46 WBC RBC Hgb Hct MCV MCH MCHC RDW Plt Count Seg Neuts % (Manual) Lymphocytes % (Manual) Monocytes % (Manual) Nucleated RBC % Seg Neutrophils # Man Lymphocytes # (Manual) PT INR APTT D-Dimer ABG pH POC ABG pCO2 POC ABG pO2 ABG pO2 ABG HCO3 ABG O2 Saturation ABG Base Excess ABG Hemoglobin ABG Oxyhemoglobin ABG Sodium ABG Potassium ABG Chloride ABG Glucose VBG pH Carboxyhemoglobin Sodium Potassium Chloride Carbon Dioxide BUN Creatinine Glucose POC Glucose 130 H 111 H 109 H Lactic Acid Calcium Phosphorus Magnesium Ferritin AST ALT Ammonia Lactate Dehydrogenase Troponin T C-Reactive Protein Total Protein Albumin Triglycerides LDL Cholesterol Direct HDL Cholesterol Arterial Blood Glucose Arterial Blood Ionized Calcium Urine WBC (Auto) Urine Creatinine Vancomycin Trough Crossmatch 06/22/21 06/22/21 06/22/21 04:57 04:57 09:42 WBC 2.8 L RBC 2.86 L Hgb 8.2 L Hct 24.1 L MCV MCH MCHC RDW 16.2 H Plt Count 27 L Seg Neuts % (Manual) Lymphocytes % (Manual) Monocytes % (Manual) Nucleated RBC % Seg Neutrophils # Man Lymphocytes # (Manual) PT INR APTT D-Dimer ABG pH 7.249 L POC ABG pCO2 62.9 H POC ABG pO2 74.4 L ABG pO2 ABG HCO3 ABG O2 Saturation ABG Base Excess ABG Hemoglobin 8.4 L ABG Oxyhemoglobin 92.3 L ABG Sodium 134.4 L ABG Potassium 3.2 L ABG Chloride ABG Glucose 116 H VBG pH Carboxyhemoglobin Sodium 136 L D Potassium Chloride Carbon Dioxide BUN 61 H Creatinine 3.2 H Glucose 115 H POC Glucose Lactic Acid Calcium 7.4 L Phosphorus Magnesium Ferritin AST ALT Ammonia Lactate Dehydrogenase Troponin T C-Reactive Protein Total Protein Albumin Triglycerides LDL Cholesterol Direct HDL Cholesterol Arterial Blood Glucose 116 H Arterial Blood Ionized Calcium Urine WBC (Auto) Urine Creatinine Vancomycin Trough Crossmatch 06/22/21 06/23/21 06/23/21 11:03 04:40 04:40 WBC 2.5 L RBC 2.74 L Hgb 7.9 L Hct 23.1 L MCV MCH MCHC RDW 16.5 H Plt Count 28 L Seg Neuts % (Manual) Lymphocytes % (Manual) Monocytes % (Manual) Nucleated RBC % Seg Neutrophils # Man Lymphocytes # (Manual) PT INR APTT D-Dimer ABG pH POC ABG pCO2 POC ABG pO2 ABG pO2 ABG HCO3 ABG O2 Saturation ABG Base Excess ABG Hemoglobin ABG Oxyhemoglobin ABG Sodium ABG Potassium ABG Chloride ABG Glucose VBG pH Carboxyhemoglobin Sodium Potassium Chloride Carbon Dioxide BUN 77 H Creatinine 4.1 H Glucose POC Glucose 106 H Lactic Acid Calcium 7.3 L Phosphorus Magnesium Ferritin AST ALT Ammonia Lactate Dehydrogenase Troponin T C-Reactive Protein Total Protein Albumin Triglycerides LDL Cholesterol Direct HDL Cholesterol Arterial Blood Glucose Arterial Blood Ionized Calcium Urine WBC (Auto) Urine Creatinine Vancomycin Trough Crossmatch 06/23/21 06/23/2106/23/21 04:40 12:25 17:57 WBC RBC Hgb Hct MCV MCH MCHC RDW Plt Count Seg Neuts % (Manual) Lymphocytes % (Manual) Monocytes % (Manual) Nucleated RBC % Seg Neutrophils # Man Lymphocytes # (Manual) PT INR APTT D-Dimer ABG pH 7.204 L POC ABG pCO2 63.9 H POC ABG pO2 68.2 L ABG pO2 ABG HCO3 ABG O2 Saturation ABG Base Excess ABG Hemoglobin 7.8 L ABG Oxyhemoglobin 88.8 L ABG Sodium 132.0 L ABG Potassium ABG Chloride ABG Glucose 100 H VBG pH Carboxyhemoglobin Sodium Potassium Chloride Carbon Dioxide BUN Creatinine Glucose POC Glucose 120 H 111 H Lactic Acid Calcium Phosphorus Magnesium Ferritin AST ALT Ammonia Lactate Dehydrogenase Troponin T C-Reactive Protein Total Protein Albumin Triglycerides LDL Cholesterol Direct HDL Cholesterol Arterial Blood Glucose 100 H Arterial Blood Ionized Calcium Urine WBC (Auto) Urine Creatinine Vancomycin Trough Crossmatch 06/24/21 06/24/21 06/24/21 05:00 05:00 05:00 WBC 1.9 L* RBC 2.73 L Hgb 7.8 L Hct 22.9 L MCV MCH MCHC RDW 16.6 H Plt Count 19 L* Seg Neuts % (Manual) Lymphocytes % (Manual) Monocytes % (Manual) Nucleated RBC % Seg Neutrophils # Man Lymphocytes # (Manual) PT INR APTT D-Dimer ABG pH POC ABG pCO2 POC ABG pO2 ABG pO2 ABG HCO3 ABG O2 Saturation ABG Base Excess ABG Hemoglobin ABG Oxyhemoglobin ABG Sodium ABG Potassium ABG Chloride ABG Glucose VBG pH Carboxyhemoglobin Sodium 134 L Potassium 3.3 L Chloride Carbon Dioxide BUN 82 H Creatinine 4.3 H Glucose 73 L POC Glucose Lactic Acid Calcium 7.2 L Phosphorus 5.40 H Magnesium 1.60 L Ferritin AST ALT Ammonia Lactate Dehydrogenase Troponin T C-Reactive Protein Total Protein Albumin Triglycerides 557 H LDL Cholesterol Direct HDL Cholesterol Arterial Blood Glucose Arterial Blood Ionized Calcium Urine WBC (Auto) Urine Creatinine Vancomycin Trough Crossmatch 06/24/21 06/24/21 05:16 12:28 WBC RBC Hgb Hct MCV MCH MCHC RDW Plt Count Seg Neuts % (Manual) Lymphocytes % (Manual) Monocytes % (Manual) Nucleated RBC % Seg Neutrophils # Man Lymphocytes # (Manual) PT INR APTT D-Dimer ABG pH POC ABG pCO2 POC ABG pO2 ABG pO2 ABG HCO3 ABG O2 Saturation ABG Base Excess ABG Hemoglobin ABG Oxyhemoglobin ABG Sodium ABG Potassium ABG Chloride ABG Glucose VBG pH Carboxyhemoglobin Sodium Potassium Chloride Carbon Dioxide BUN Creatinine Glucose POC Glucose 61 L 68 L Lactic Acid Calcium Phosphorus Magnesium Ferritin AST ALT Ammonia Lactate Dehydrogenase Troponin T C-Reactive Protein Total Protein Albumin Triglycerides LDL Cholesterol Direct HDL Cholesterol Arterial Blood Glucose Arterial Blood Ionized Calcium Urine WBC (Auto) Urine Creatinine Vancomycin Trough Crossmatch Chest x-ray: image reviewed (left chest tube in place; resolved SQ emphysema) Allied health notes reviewed: nursing
--- NOTE | 2021-06-24 13:58 | Progress Note ---
Assessment and Plan Suspect physiologic sinus tachycardia in the setting of sepsis/shock. Not a candiate for anticougulation secondary to anemia and thrombocytopenia. Poor prognosis. Will continue to follow Patient seen in conjunction with Dr. Singh who agrees with this plan of care - Patient Problems (1) ANGELES (acute kidney injury) Current Visit: Yes Status: Acute (2) Abscess of left lung with pneumonia Current Visit: Yes Status: Acute (3) Acute respiratory failure with hypoxia Current Visit: Yes Status: Acute (4) Anemia Current Visit: Yes Status: Acute (5) Bilateral pneumonia Current Visit: Yes Status: Acute (6) Failure to thrive Current Visit: Yes Status: Acute Qualifiers: Failure to thrive age range: in adult Qualified Code(s): R62.7 - Adult failure to thrive (7) NSTEMI (non-ST elevated myocardial infarction) Current Visit: Yes Status: Acute (8) Sinus tachycardia Current Visit: Yes Status: Acute (9) History of CVA (cerebrovascular accident) Current Visit: Yes Status: Chronic Subjective Date of service: 06/24/21 Principal diagnosis: Acute hypoxemic resp failure; Pneumonia; PUI COVID-19 infection Interval history: Patient remains intubated Sinus tach trending 120s -130s Objective Vital Signs Temp Pulse Pulse Pulse Resp Resp BP 06/24/21 12:00 98.3 F 133 H 97/44 06/24/21 09:55 136 H 30 H 06/24/21 09:50 137 H 97/51 06/24/21 08:45 137 H 30 H 94/45 06/24/21 08:30 136 H 30 H 99/44 06/24/21 08:15 135 H 30 H 89/43 06/24/21 08:00 99.2 F 135 H 30 H 82/42 06/24/21 07:45 136 H 30 H 84/39 06/24/21 07:30 132 H 30 H 87/51 06/24/21 07:15 132 H 30 H 87/49 06/24/21 07:00 135 H 30 H 95/51 06/24/21 06:45 135 H 30 H 95/51 06/24/21 06:30 136 H 30 H 101/49 06/24/21 06:15 136 H 30 H 96/53 06/24/21 06:00 135 H 29 H 104/52 06/24/21 05:45 133 H 30 H 101/48 06/24/21 05:30 132 H 30 H 108/48 06/24/21 05:15 135 H 30 H 93/52 06/24/21 05:00 135 H 30 H 102/51 06/24/21 04:45 134 H 30 H 100/51 06/24/21 04:30 135 H 30 H 100/51 06/24/21 04:15 134 H 30 H 91/51 06/24/21 04:00 99.8 F H 135 H 134 H 30 H 97/52 06/24/21 03:54 135 H 06/24/21 03:45 136 H 28 H 80/56 06/24/21 03:30 136 H 26 H 96/52 06/24/21 03:15 136 H 30 H 96/53 06/24/21 03:00 136 H 30 H 100/50 06/24/21 02:45 135 H 30 H 98/51 06/24/21 02:30 134 H 25 H 94/06/24/21 02:15 133 H 30 H /06/24/21 02:01 127 H 30 H 72/34 06/24/21 01:45 135 H 30 H 95/51 06/24/21 01:30 136 H 30 H /06/24/21 01:15 135 H 29 H 98/48 06/24/21 01:00 133 H 30 H 97/06/24/21 00:54 145 H 97/48 06/24/21 00:45 138 H 30 H 97/06/24/21 00:30 140 H 30 H 101/06/24/21 00:15 140 H 30 H 97/49 06/24/21 00:00 99.5 F 140 H 116 H 30 H 101/49 06/23/21 23:45 140 H 30 H 95/47 06/23/21 23:30 140 H 30 H 91/48 06/23/21 23:27 141 H 30 H 88/43 06/23/21 23:15 141 H 30 H 88/43 06/23/21 23:00 142 H 30 H 84/43 06/23/21 22:45 143 H 30 H 82/46 06/23/21 22:30 144 H 30 H 93/43 06/23/21 22:15 145 H 30 H 90/43 06/23/21 22:01 134 H 24 81/48 06/23/21 21:45 130 H 31 H 75/39 06/23/21 21:31 125 H 17 75/39 06/23/21 21:15 134 H 20 98/53 06/23/21 21:00 134 H 27 H 96/51 06/23/21 20:45 133 H 23 120/56 06/23/21 20:37 98.4 F 128 H 22 97/39 06/23/21 20:30 133 H 24 120/56 06/23/21 20:19 98.4 F 128 H 19 101/50 06/23/21 20:15 127 H 24 117/60 06/23/21 20:01 125 H 29 H 116/63 06/23/21 20:00 98.4 F 133 H 133 H 30 H 92/37 06/23/21 19:51 125 H 30 H 06/23/21 19:45 136 H 20 88/46 06/23/21 19:30 131 H 21 90/53 06/23/21 19:15 127 H 26 H 95/53 06/23/21 19:01 126 H 18 88/46 06/23/21 19:00 128 H 89/37 06/23/21 18:45 126 H 18 98/51 06/23/21 18:30 126 H 23 98/51 06/23/21 18:15 127 H 18 114/53 06/23/21 18:00 126 H 19 114/53 06/23/21 17:45 126 H 26 H 107/53 06/23/21 17:31 127 H 20 105/54 06/23/21 17:15 125 H 26 H 128/57 06/23/21 17:01 123 H 26 H 128/57 06/23/21 16:45 124 H 13 142/50 06/23/21 16:31 114 H 30 H 142/50 06/23/21 16:15 117 H 30 H 123/53 06/23/21 16:00 97.9 F 121 H 116 H 23 146/63 06/23/21 15:45 116 H 30 H 122/57 06/23/21 15:30 117 H 20 129/57 06/23/21 15:15 117 H 24 132/57 06/23/21 15:00 116 H 31 H 132/56 06/23/21 14:45 116 H 30 H 131/58 06/23/21 14:30 116 H 30 H 133/56 06/23/21 14:15 114 H 30 H 06/23/21 14:00 116 H 30 H 98/56 Pulse Ox Pulse Ox 06/24/21 12:00 92 06/24/21 09:55 06/24/21 09:50 90 06/24/21 08:45 93 06/24/21 08:30 93 06/24/21 08:15 91 06/24/21 08:00 90 06/24/21 07:45 88 06/24/21 07:30 91 06/24/21 07:15 78 L 06/24/21 07:00 94 06/24/21 06:45 93 06/24/21 06:30 95 06/24/21 06:15 95 06/24/21 06:00 95 06/24/21 05:45 96 06/24/21 05:30 97 06/24/21 05:15 95 06/24/21 05:00 95 06/24/21 04:45 94 06/24/21 04:30 94 06/24/21 04:15 94 06/24/21 04:00 97 06/24/21 03:54 94 06/24/21 03:45 94 06/24/21 03:30 95 06/24/21 03:15 95 06/24/21 03:00 95 06/24/21 02:45 95 06/24/21 02:30 94 06/24/21 02:15 95 06/24/21 02:01 91 06/24/21 01:45 95 06/24/21 01:30 95 06/24/21 01:15 95 06/24/21 01:00 95 06/24/21 00:54 06/24/21 00:45 96 06/24/21 00:30 96 06/24/21 00:15 96 06/24/21 00:00 97 06/23/21 23:45 96 06/23/21 23:30 97 06/23/21 23:27 98 06/23/21 23:15 96 06/23/21 23:00 96 10/18/21 22:45 96 06/23/21 22:30 97 06/23/21 22:15 97 06/23/21 22:01 06/23/21 21:45 99 06/23/21 21:31 82 L 06/23/21 21:15 97 06/23/21 21:00 97 06/23/21 20:45 100 06/23/21 20:37 92 06/23/21 20:30 97 06/23/21 20:19 98 06/23/21 20:15 99 06/23/21 20:01 100 06/23/21 20:00 94 06/23/21 19:51 06/23/21 19:45 91 06/23/21 19:30 95 06/23/21 19:15 97 06/23/21 19:01 95 06/23/21 19:00 97 06/23/21 18:45 98 06/23/21 18:30 95 06/23/21 18:15 97 06/23/21 18:00 95 06/23/21 17:45 97 06/23/21 17:31 97 06/23/21 17:15 99 06/23/21 17:01 99 06/23/21 16:45 99 06/23/21 16:31 97 06/23/21 16:15 95 06/23/21 16:00 100 06/23/21 15:45 93 06/23/21 15:30 92 06/23/21 15:15 93 06/23/21 15:00 94 06/23/21 14:45 95 06/23/21 14:30 93 06/23/21 14:15 96 06/23/21 14:00 97 - Physical Examination General: Other (intubated ) HEENT: Positive: Normocephaly Neck: Positive: neck supple, trachea midline. Negative: JVD/HJR Cardiac: Positive: Regular Rhythm, Tachycardia Lungs: Positive: Ventilated Respirations Neuro: Positive: Other (intubated) Abdomen: Positive: Soft Skin: Negative: Rash Musculoskeletal: No Fluid Collection Extremities: Present: lower extr. pulses, warm. Absent: edema - Labs and Meds Lipids 06/24/21 Range/Units 05:00 Triglycerides 557 H (2-149) mg/dL CBC 06/24/21 Range/Units 05:00 WBC 1.9 L* (4.5-11.0) K/mm3 RBC 2.73 L (3.65-5.03) M/mm3 Hgb 7.8 L (11.8-15.2) gm/dl Hct 22.9 L (35.5-45.6) % Plt Count 19 L* (140-440) K/mm3 Comprehensive Metabolic Panel 06/24/21 Range/Units 05:00 Sodium 134 L (137-145) mmol/L Potassium 3.3 L (3.6-5.0) mmol/L Chloride 98.9 (98-107) mmol/L Carbon Dioxide 22 (22-30) mmol/L BUN 82 H (9-20) mg/dL Creatinine 4.3 H (0.8-1.3) mg/dL Glucose 73 L (75-100) mg/dL Calcium 7.2 L (8.4-10.2) mg/dL - Imaging and Cardiology EKG: report reviewed, image reviewed Echo: report reviewed (06/05/2021 - EF 55-60%, normal diastolic fxn, no valvular abnormalities) - EKG Sinus rhythms and dysrhythmias: sinus tachycardia Repolarization changes or abnormalities: nonspecific abnormality, ST segment, and/or T wave - Allied health notes Allied health notes reviewed: nursing
--- NOTE | 2021-06-24 17:11 | Progress Note ---
Assessment and Plan Impression: * Acute kidney injury secondary to ATN likely related to COVID 19 * Acute hypoxic respiratory failure secondary to COVID 19 PNA * Azotemia * Hyperkalemia * Metabolic acidosis * Hypernatremia * Seizure disorder Plan: * Did not tolerate HD yesterday, had to be taken off after an hour due to hemodynamic instability. Hold HD today. * Vasculitis work-up negative, including ANCA as well as complement levels. * Keep MAP>65 * Management of COVID 19 PNA to primary team/ID * Dose medications for renal function * Renal diet * follow up lytes prn * ANGELES most likely secondary to ATN. No evidence of renal recovery at this time. * Neuro note reviewed * Prognosis guarded Subjective Date of service: 06/24/21 Principal diagnosis: Acute hypoxemic resp failure; Pneumonia; PUI COVID-19 i nfection Interval history: Did not tolerate HD yesterday evening for more than 1 hour. He became hemodynamically unstable and had to be taken off HD. Remains sedated and intu bated this morning. Seized overnight. Objective - Exam Narrative Exam: General: Sedated. Intubated. HEENT: Oral mucosa moist Neck: Supple, no JVD Chest: Intubated. Mechanical breath sounds. Heart: RRR, S1 and S2, no pericardial rub Abdomen: Soft, nontender, no renal bruit Extremity: No peripheral cyanosis, edema Neurological: Sedated. Dermatology: No skin rash Psych: No agitation Musculoskeletal: No joint effusion - Vital Signs Vital signs: Vital Signs - 12hr 06/24/21 06/24/21 06/24/21 05:15 05:30 05:45 Temperature Pulse Rate 135 H 132 H 133 H Pulse Rate [ Anterior Bilateral Throughout] Respiratory 30 H 30 H 30 H Rate Respiratory Rate [Anterior Bilateral Throughout] Blood Pressure 93/52 108/48 101/48 O2 Sat by Pulse 95 97 96 Oximetry 06/24/21 06/24/21 06/24/21 06:00 06:15 06:30 Temperature Pulse Rate 135 H 136 H 136 H Pulse Rate [ Anterior Bilateral Throughout] Respiratory 29 H 30 H 30 H Rate Respiratory Rate [Anterior Bilateral Throughout] Blood Pressure 104/52 96/53 101/49 O2 Sat by Pulse 95 95 95 Oximetry 06/24/21 06/24/21 06/24/21 06:45 07:00 07:15 Temperature Pulse Rate 135 H 135 H 132 H Pulse Rate [ Anterior Bilateral Throughout] Respiratory 30 H 30 H 30 H Rate Respiratory Rate [Anterior Bilateral Throughout] Blood Pressure 95/51 95/51 87/49 O2 Sat by Pulse 93 94 78 L Oximetry 06/24/21 06/24/21 06/24/21 07:30 07:45 08:00 Temperature 99.2 F Pulse Rate 132 H 136 H 135 H Pulse Rate [ Anterior Bilateral Throughout] Respiratory 30 H 30 H 30 H Rate Respiratory Rate [Anterior Bilateral Throughout] Blood Pressure 87/51 84/39 82/42 O2 Sat by Pulse 91 88 90 Oximetry 06/24/21 06/24/21 06/24/21 08:15 08:30 08:45 Temperature Pulse Rate 135 H 136 H 137 H Pulse Rate [ Anterior Bilateral Throughout] Respiratory 30 H 30 H 30 H Rate Respiratory Rate [Anterior Bilateral Throughout] Blood Pressure 89/43 99/44 94/45 O2 Sat by Pulse 91 93 93 Oximetry 06/24/21 06/24/21 06/24/21 09:00 09:15 09:25 Temperature Pulse Rate 138 H 137 H Pulse Rate [ Anterior Bilateral Throughout] Respiratory 30 H 30 H 30 H Rate Respiratory Rate [Anterior Bilateral Throughout] Blood Pressure 98/50 93/51 O2 Sat by Pulse 93 93 93 Oximetry 06/24/21 06/24/21 06/24/21 09:30 09:45 09:50 Temperature Pulse Rate 139 H 138 H 137 H Pulse Rate [ Anterior Bilateral Throughout] Respiratory 30 H 30 H Rate Respiratory Rate [Anterior Bilateral Throughout] Blood Pressure 98/47 97/51 97/51 O2 Sat by Pulse 91 90 90 Oximetry 06/24/21 06/24/21 06/24/21 09:55 10:00 10:15 Temperature Pulse Rate 137 H 141 H Pulse Rate [ 136 H Anterior Bilateral Throughout] Respiratory 30 H 21 Rate Respiratory 30 H Rate [Anterior Bilateral Throughout] Blood Pressure 105/54 103/55 O2 Sat by Pulse 94 95 Oximetry 06/24/21 06/24/21 06/24/21 10:30 10:45 11:00 Temperature Pulse Rate 141 H 142 H 142 H Pulse Rate [ Anterior Bilateral Throughout] Respiratory 22 25 H 21 Rate Respiratory Rate [Anterior Bilateral Throughout] Blood Pressure 107/56 106/57 108/57 O2 Sat by Pulse 94 91 93 Oximetry 06/24/21 06/24/21 06/24/21 11:54 12:00 12:15 Temperature 98.3 F Pulse Rate 143 H 142 H 140 H Pulse Rate [ Anterior Bilateral Throughout] Respiratory 13 18 19 Rate Respiratory Rate [Anterior Bilateral Throughout] Blood Pressure 108/57 95/47 94/43 O2 Sat by Pulse 94 93 Oximetry 06/24/21 06/24/21 06/24/21 12:30 12:45 13:00 Temperature Pulse Rate 139 H 137 H 137 H Pulse Rate [ Anterior Bilateral Throughout] Respiratory 22 18 21 Rate Respiratory Rate [Anterior Bilateral Throughout] Blood Pressure 91/45 92/46 96/47 O2 Sat by Pulse 92 93 92 Oximetry 06/24/21 06/24/21 06/24/21 13:15 13:30 13:45 Temperature Pulse Rate 133 H 133 H 136 H Pulse Rate [ Anterior Bilateral Throughout] Respiratory 30 H 15 30 H Rate Respiratory Rate [Anterior Bilateral Throughout] Blood Pressure 96/46 97/44 87/40 O2 Sat by Pulse 88 76 L 94 Oximetry 06/24/21 06/24/21 06/24/21 14:00 15:25 16:25 Temperature Pulse Rate 135 H 136 H Pulse Rate [ 137 H Anterior Bilateral Throughout] Respiratory 32 H Rate Respiratory 30 H Rate [Anterior Bilateral Throughout] Blood Pressure 93/42 86/53 O2 Sat by Pulse 94 96 Oximetry - Lab 06/24/21 05:00 06/24/21 05:00 Most recent lab results ABG pH 7.238 (7.320-7.450) L 06/24/21 04:00 ABG pCO2 70.2 mm Hg 06/20/21 18:00 ABG pO2 209.0 mm Hg (80.0-90.0) H 06/20/21 18:00 ABG HCO3 26.1 mmol/L (20.0-26.0) H 06/20/21 18:00 ABG O2 Saturation 85.1 (0-100) 06/24/21 04:00 Calcium 7.2 mg/dL (8.4-10.2) L 06/24/21 05:00 Phosphorus 5.40 mg/dL (2.5-4.5) H 06/24/21 05:00 Magnesium 1.60 mg/dL (1.7-2.3) L 06/24/21 05:00 Urine Creatinine 49.9 mg/dL (0.1-20.0) H 06/19/21 11:14 Urine Sodium 56 mmol/L 06/19/21 11:14 Medications & Allergies - Medications Allergies/Adverse Reactions: Allergies No Known Allergies Allergy (Unverified 02/12/17 15:47) Home Medications: Home Medications Medication Instructions Recorded Confirmed Last Taken Type No Known Home Medications [No 05/31/21 05/31/21 Unknown History Reported Home Medications] Active Medications: Generic Name Dose Route Start Last Admin Trade Name Freq PRN Reason Stop Dose Admin Acetaminophen 650 mg 06/19/21 12:00 06/24/21 09:45 Acetaminophen 325 Mg/10.15 Ml Oral Liqd Unit Dose FEEDTUBE 650 mg Q6H PRN Administration Pain MILD(1-3)/Fever >100.5/LUCAS Albuterol/Ipratropium 1 ampul 06/07/21 20:00 06/24/21 15:25 Ipratropium/Albuterol Sulfate 3 Ml Ampul.Neb IH 1 ampul TIDRT MIKE Administration Lipase/Protease/Amylase 1 each 06/18/21 12:21 Lipase 10,500/Protease 25,000/Amylase 43,750 (Units) Dr Cap FEEDTUBE PRN PRN For Clogged Feeding Tube Dextrose 25 ml 06/24/21 12:36 06/24/21 12:55 Dextrose 50% In Water (25gm) 50 Ml Syringe IV 25 ml Q30MIN PRN Administration Hypoglycemia Protocol Famotidine 10 mg 06/19/21 10:00 06/24/21 09:45 Famotidine 20 Mg/2 Ml Inj IV 10 mg BID MIKE Administration Fentanyl 50 mcg 06/17/21 17:00 Fentanyl 100 Mcg/2 Ml Inj IV Q10MIN PRN ANALGESIA Hydrophilic Ointment 1 applic 06/17/21 17:00 Lip Therapy Vaseline TP Q2HR PRN Dry Lips Metronidazole 500 mg in 100 mls @ 100 mls/hr 06/08/21 13:00 06/24/21 15:10 Flagyl 500 Mg/100 Ml IV 06/29/21 05:59 100 mls/hr Q8H MIKE Administration Protocol Fentanyl Citrate 2,000 mcg in 100 mls @ 3.725 mls/hr 06/17/21 17:00 06/24/21 09:47 Fentanyl Drip Premix IV 0 mcg/kg/hr TITR MIKE 0 mls/hr Titration Protocol 1 MCG/KG/HR NORepinephrine/NS 8 MG-250 ML 8 mg in 250 mls @ 3.75 mls/hr 06/18/21 23:00 06/24/21 15:07 Norepinephrine/Ns 8 Mg-250 Ml (Double Conc) IV 30 mcg/min TITRATE MIKE 56.25 mls/hr Administration Protocol 2 MCG/MIN Cefepime HCl 2 gm in 100 mls @ 200 mls/hr 06/20/21 06:00 06/24/21 05:03 Cefepime/Ns 2 Gm/100 Ml IV 06/29/21 06:29 200 mls/hr Q24H MIKE Administration Protocol Propofol 1,000 mg in 100 mls @ 2.226 mls/hr 06/20/21 13:00 06/24/21 09:40 Diprivan 10 Mg/Ml IV 0 mcg/kg/min TITR MIKE 0 mls/hr Titration Protocol 5 MCG/KG/MIN Sodium Chloride 100 mls @ 999 mls/hr 06/23/21 11:09 Nacl 0.9% IV KAVITA PRN Hypotension Vasopressin 20 unit/ Sodium 101 mls @ 9.09 mls/hr 06/24/21 10:00 06/24/21 12:27 Chloride IV 0.03 units/min TITR MIKE 9.09 mls/hr Administration Protocol 0.03 UNITS/MIN Lacosamide 50 mg/ Sodium 105 mls @ 100 mls/hr 06/24/21 12:00 06/24/21 12:27 Chloride IV 100 mls/hr Q12H MIKE Administration Lorazepam 2 mg 06/23/21 22:12 Lorazepam 2 Mg/Ml Vial IV Q4H PRN Agitation Morphine Sulfate 2 mg 05/23/21 22:01 06/17/21 10:01 Morphine 2 Mg/1 Ml Inj IV 2 mg Q4H PRN Administration Pain, Moderate (4-6) Multi-Ingred Cream/Lotion/Oil/Oint 1 applic 06/17/21 18:00 Mineral Oil/Petrolatum, White Ophth Oint 3.5 Gm OU Q4HR PRN Dry Eye(s) Ondansetron HCl 4 mg 06/04/21 13:41 06/09/21 22:05 Ondansetron 4 Mg/2 Ml Inj IV 4 mg Q4H PRN Administration Nausea And Vomiting Senna/Docusate Sodium 1 tab 06/17/21 22:00 06/24/21 16:45 Sennosides/Docusate Sodium 8.6/50 Mg Tab FEEDTUBE Not Given BID MIKE Simple Syrup 15 ml 06/18/21 12:21 06/23/21 23:31 Simple Syrup 15 Ml FEEDTUBE 15 ml PRN PRN Administration Hypoglycemia Simple Syrup 30 ml 06/18/21 12:21 Simple Syrup 15 Ml FEEDTUBE PRN PRN Hypoglycemia Sodium Bicarbonate 325 mg 06/18/21 12:21 Sodium Bicarbonate 325 Mg Tab FEEDTUBE PRN PRN For Clogged Feeding Tube Sodium Chloride 10 ml 05/23/21 22:01 06/22/21 21:23 Sodium Chloride 0.9% 10 Ml Flush Syringe IV 10 ml PRN PRN Administration LINE FLUSH
--- NOTE | 2021-06-24 19:57 | Progress Note ---
<LAYPABLO VitaliyDonovan - Last Filed: 06/24/21 19:52> Assessment and Plan Assessment and plan: This is a 59-year-old male with CVA and current daily smoker admitted with pneumonia possibly secondary to COVID-19, hypoxia and encephalopathy Neuro: Acute encephalopathy, seizure -CT head negative on admit -Sedated with fentanyl and propofol -Goal RASS -1 to -2 -Avoid delirium -Maintenance of sleep-wake cycle -Patient had a witnessed seizure overnight -EEG pending -CT head shows no evidence of acute intracranial abnormality, if his seizures or neurologic symptoms persist or additional evaluation is clinically indicated consider MRI. Fluid level within the right maxillary sinus as well as fluid t hroughout both mastoid air cells is noted which may represent sinusitis/mastoiditis -Neurology consulted, appreciate recommendations -Keppra changed to Vimpat Cardio: S/p cardiac arrest -06/10 s/p cardiac arrest -Cardiology consulted, patient recommendations -Per cardiology not a candidate for anticoagulation secondary to anemia and beta-ian secondary to hypotension as well as reports of melena per nursing staff -Vasopressor support with Levophed -Added to vasopressor -MAP goal of 65 -Echocardiogram shows left ventricle ejection fraction 55 to 60% Respiratory: Acute hypoxic respiratory failure, left pneumothorax, aspiration pneumonia with left lower lobe lesion, pneumomediastinum -S/p BiPAP -CCM consulted, appreciate recommendation -CXR showed patchy multifocal airspace disease bilaterally -Patient was intubated 06/17 with a 8.0 OETT at 24 at the lips -A.m. vent settings: Assist-control rate 30, tidal volume 450, PEEP 8, FiO2 85% -A.m. ABG noted -RT increased FiO2 due to hypoxemia on ABG and desaturation -See RT notes for weaning -Serial ABG and CXR -06/23 ABG and CXR reviewed -VAP bundle -SPO2 monitoring -Daily SBT/SAT trials when appropriate -Chest tube to wall suction -VQ scan shows low probability of pulmonary embolism GI: NAD, s/p ileus (resolved) -NTR consult for tube feeding -Nephro at 41 ml/hr -onhold d/t vasopressor use -Free water flush 190 mL every 4 -PPI: Pepcid -BR: Senokot : Acute kidney injury secondary to vasomotor nephropathy, hypernatremia, hyperchloremia -Nephrology consulted, appreciate recommendations -Renal ultrasound unremarkable -Vasculitis work-up negative, including ANCA as well as complement levels -06/20 HD initiated by nephrology -HD per nephrology -Avoid nephrotoxic medications -Renally dose medication -Daily weights -Strict intake and output -Trend BMP ID: Aspiration pneumonia with left lower lobe abcess, COVID 19 PNA -Seen on CT abdomen pelvis and chest: Approximately 5 x 6 cm -Infectious disease consulted, appreciate recommendations -Covid 19 PCR positive at outpatient however negative x2 inpatient -CT abdomen/pelvis showed severe aspiration type pneumonia bilateral bases with lesion in the left lower lobe -Cefepime and Flagyl (planned 3 weeks of therapy) -> per ID -S/p azithromycin , ceftriaxone -S/p Decadron -S/p stress dose steroids -s/p Actemra on 05/24 -Monitor fever WBC curve -Follow-up culture data Heme: Leukopenia, elevated D-dimer -D-dimer on admit greater than 10,000-> VQ scan with low probability of PE -D-dimer trending down -Eliquis 2.5 every 12 -Trend CBC -Transfuse for hemoglobin less than 7 Endo: NAD -SSI -Accu-Cheks every 6 -Avoid hypoglycemia The high probability of a clinically significant, sudden or life threatening deterioration of the [multi] system(s) required my full and direct attention, intervention and personal management. The aggregate critical care time was [60] minutes. This time is in addition to time spent performing reported procedures but includes the following: [x] Data Review and interpretation [x] Patient assessment and monitoring of vital signs [x] Documentation [x] Medication orders and management Disposition Plan: icu Total Time Spent with Patient (Minutes): 60 History Interval history: This is a 59-year-old male with CVA and current daily smoker who was diagnosed with COVID-19 on 05/11/2021 who presented to emergency department on 05/23 with complaints of shortness of breath, decreased oral intake over the past 10 to 12 days via EMS. Initial oxygen saturation according to EMS was about 70% on room air and he was placed on a nonrebreather. Upon arrival to the emergency department patient was placed on a nasal cannula as he had significant improvement in oxygen saturation. Work-up in the emergency department revealed elevated D-dimer, hyponatremia, hyperkalemia, acute kidney injury, lactic acidosis and leukocytosis. CXR showed mild patchy multifocal airspace disease throughout the lungs and a VQ scan was showed low ability of pulmonary embolism. Patient was admitted to the hospitalist service with pneumonia possibly sec ondary to COVID-19, hypoxia and encephalopathy. 06/24: 06/24: Patient not tolerate hemodialysis yesterday because became hemodynamically unstable, patient had a witnessed seizure overnight. EEG and CT head ordered. Neurology consult ordered. Patient started on vasopressin due to persistent hypotension while maxed on Levophed. Neutropenic precautions due to neutropenia. plts ordered d/t thrombocytopenia , Mg and K replaced 06/23: Patient remains on vasopressor support with Levophed, maximal vent settings, sedated with fentanyl and propofol. Chest tube remains to wall suction. Continue antibiotics and pancytopenia persists. HD per nephrology. 06/22: Patient CODE STATUS changed to AND/DNR, no acute events reported overnight 06/21: No acute events reported overnight 06/20: S/p cardiac arrest, intubated, transferred to ICU, Vas-Cath placement with initiation of HD Hospitalist Physical - Constitutional Vitals: Temp Pulse Resp BP Pulse Ox 100 F H 134 H 30 H 104/54 94 06/24/21 16:20 06/24/21 18:15 06/24/21 18:15 06/24/21 18:15 06/24/21 18:15 General appearance: Present: other (intubated) - EENT Eyes: Present: PERRL - Neck Neck: Present: normal ROM - Respiratory Respiratory effort: normal Respiratory: bilateral: diminished - Cardiovascular Rhythm: regular Heart Sounds: Present: S1 & S2. Absent: systolic murmur, diastolic murmur - Extremities Extremities: no ischemia, pulses intact, pulses symmetrical, No edema, normal temperature, normal color Peripheral Pulses: within normal limits - Abdominal General gastrointestinal: soft, non-tender, non-distended, normal bowel sounds - Integumentary Integumentary: Present: warm, dry - Psychiatric Psychiatric: other - Neurologic Neurologic: other - Allied Health Allied health notes reviewed: nursing, social work, case management HEART Score - HEART Score EKG: Non-specific Age: 45-65 Risk factors: 1-2 risk factors Troponin: Troponin T 0.105 ng/mL (0.00-0.029) H* 10/15/21 05:00 - Critical Actions Critical Actions: 0-3 pts:0.9-1.7%risk of adverse cardiac event.Candidate for discharge Results - Labs CBC & Chem 7: 06/24/21 05:00 06/24/21 05:00 Labs: Laboratory Last Values WBC 1.9 K/mm3 (4.5-11.0) L* 06/24/21 05:00 RBC 2.73 M/mm3 (3.65-5.03) L 06/24/21 05:00 Hgb 7.8 gm/dl (11.8-15.2) L 06/24/21 05:00 Hct 22.9 % (35.5-45.6) L 06/24/21 05:00 MCV 84 fl (84-94) 06/24/21 05:00 MCH 29 pg (28-32) 06/24/21 05:00 MCHC 34 % (32-34) 06/24/21 05:00 RDW 16.6 % (13.2-15.2) H 06/24/21 05:00 Plt Count 19 K/mm3 (140-440) L* 06/24/21 05:00 Lymph % (Auto) Prototype Machinist 06/01/21 07:10 [place] % (Auto) Prototype Machinist 06/01/21 07:10 Eos % (Auto) Prototype Machinist 06/01/21 07:10 Baso % (Auto) Prototype Machinist 06/01/21 07:10 Lymph # (Auto) Prototype Machinist 06/01/21 07:10 [place] # (Auto) Prototype Machinist 06/01/21 07:10 Eos # (Auto) Prototype Machinist 06/01/21 07:10 Baso # (Auto) Prototype Machinist 06/01/21 07:10 Add Manual Diff Complete 06/17/21 06:25 Total Counted 100 06/17/21 06:25 Seg Neutrophils % Prototype Machinist 06/17/21 06:25 Seg Neuts % (Manual) 95.0 % (40.0-70.0) H 06/17/21 06:25 Band Neutrophils % 2.0 % 06/17/21 06:25 Lymphocytes % (Manual) 1.0 % (13.4-35.0) L 06/15/21 05:53 Reactive Lymphs % (Man) 1.0 % 06/01/21 07:10 Monocytes % (Manual) 3.0 % (0.0-7.3) 06/17/21 06:25 Myelocytes % 1.0 % 06/13/21 06:05 Nucleated RBC % Not Reportable 06/17/21 06:25 Seg Neutrophils # Prototype Machinist 06/01/21 07:10 Seg Neutrophils # Man 4.2 K/mm3 (1.8-7.7) 06/17/21 06:25 Band Neutrophils # 0.1 K/mm3 06/17/21 06:25 Lymphocytes # (Manual) 0.0 K/mm3 (1.2-5.4) L 06/17/21 06:25 Abs React Lymphs (Man) 0.0 K/mm3 06/17/21 06:25 Monocytes # (Manual) 0.1 K/mm3 (0.0-0.8) 06/17/21 06:25 Eosinophils # (Manual) 0.0 K/mm3 (0.0-0.4) 06/17/21 06:25 Basophils # (Manual) 0.0 K/mm3 (0.0-0.1) 06/17/21 06:25 Metamyelocytes # 0.0 K/mm3 06/17/21 06:25 Myelocytes # 0.0 K/mm3 06/17/21 06:25 Promyelocytes # 0.0 K/mm3 06/17/21 06:25 Blast Cells # 0.0 K/mm3 06/17/21 06:25 WBC Morphology Not Reportable 06/17/21 06:25 Hypersegmented Neuts Not Reportable 06/17/21 06:25 Hyposegmented Neuts Not Reportable 06/17/21 06:25 Hypogranular Neuts Not Reportable 06/17/21 06:25 Smudge Cells Not Reportable 06/17/21 06:25 Toxic Granulation Not Reportable 06/17/21 06:25 Toxic Vacuolation Not Reportable 06/17/21 06:25 Dohle Bodies Not Reportable 06/17/21 06:25 Pelger-Huet Anomaly Not Reportable 06/17/21 06:25 Kaci Rods Not Reportable 06/17/21 06:25 Platelet Estimate Consistent w auto 06/17/21 06:25 Clumped Platelets Not Reportable 06/17/21 06:25 Plt Clumps, EDTA Not Reportable 06/17/21 06:25 Large Platelets Not Reportable 06/17/21 06:25 Giant Platelets Not Reportable 06/17/21 06:25 Platelet Satelliting Not Reportable 06/17/21 06:25 Plt Morphology Comment Not Reportable 06/17/21 06:25 RBC Morphology Normal 06/17/21 06:25 Dimorphic RBCs Not Reportable 06/17/21 06:25 Polychromasia Not Reportable 06/17/21 06:25 Hypochromasia Not Reportable 06/17/21 06:25 Poikilocytosis Not Reportable 06/17/21 06:25 Anisocytosis Not Reportable 06/17/21 06:25 Microcytosis Not Reportable 06/17/21 06:25 Macrocytosis Not Reportable 06/17/21 06:25 Spherocytes Not Reportable 06/17/21 06:25 Pappenheimer Bodies Not Reportable 06/17/21 06:25 Sickle Cells Not Reportable 06/17/21 06:25 Target Cells Not Reportable 06/17/21 06:25 Tear Drop Cells Not Reportable 06/17/21 06:25 Ovalocytes Not Reportable 06/17/21 06:25 Helmet Cells Not Reportable 06/17/21 06:25 [place] Bodies Not Reportable 06/17/21 06:25 [place] Rings Not Reportable 06/17/21 06:25 [place] Cells Not Reportable 06/17/21 06:25 Bite Cells Not Reportable 06/17/21 06:25 Crenated Cell Not Reportable 06/17/21 06:25 Elliptocytes Not Reportable 06/17/21 06:25 Acanthocytes (Spur) Not Reportable 06/17/21 06:25 Rouleaux Not Reportable 06/17/21 06:25 Hemoglobin C Crystals Not Reportable 06/17/21 06:25 Schistocytes Not Reportable 06/17/21 06:25 Malaria parasites Not Reportable 06/17/21 06:25 Dick Bodies Not Reportable 06/17/21 06:25 Hem Pathologist Commnt No 06/17/21 06:25 PT 19.2 Sec. (12.2-14.9) H 06/19/21 09:37 INR 1.46 (0.87-1.13) H 06/19/21 09:37 APTT 54.3 Sec. (24.2-36.6) H 06/19/21 09:37 D-Dimer 3584.01 ng/mlDDU (0-234) H 05/27/21 08:09 ABG pH 7.238 (7.320-7.450) L 06/24/21 04:00 POC ABG pCO2 53.8 mmHg (32.0-48.0) H 06/24/21 04:00 ABG pCO2 70.2 mm Hg 06/20/21 18:00 POC ABG pO2 53.1 mmHg (83-108) L 06/24/21 04:00 ABG pO2 209.0 mm Hg (80.0-90.0) H 06/20/21 18:00 POC ABG HCO3 22.4 06/24/21 04:00 ABG HCO3 26.1 mmol/L (20.0-26.0) H 06/20/21 18:00 ABG O2 Saturation 85.1 (0-100) 06/24/21 04:00 ABG O2 Content 10.6 (0.0-44) 06/20/21 18:00 POC ABG Base Excess -4.8 06/24/21 04:00 ABG Base Excess -2.3 mmol/L (-2.0-3.0) L 06/20/21 18:00 ABG Hemoglobin 7.7 (12.0-17.5) L 06/24/21 04:00 ABG Oxyhemoglobin 83.8 (94-98) L 06/24/21 04:00 ABG Carboxyhemoglobin 1.7 % (0.0-5.0) 06/20/21 18:00 ABG Methemoglobin 0.3 (0.0-1.5) 06/24/21 04:00 ABG Sodium 130.5 mmol/L (136.0-145.0) L 06/24/21 04:00 ABG Potassium 3.4 mmol/L (3.40-4.50) 06/24/21 04:00 ABG Chloride 102.0 mmol/L (98-107) 06/24/21 04:00 ABG Glucose 74 mg/dL (65-95) 06/24/21 04:00 VBG pH 7.254 (7.320-7.420) L 05/24/21 02:09 Oxyhemoglobin 96.7 % (95.0-99.0) 06/20/21 18:00 Carboxyhemoglobin 1.2 (0.5-1.5) 06/24/21 04:00 FiO2 100 % 06/20/21 18:00 FiO2 % 85 06/24/21 04:00 Sodium 134 mmol/L (137-145) L 06/24/21 05:00 Potassium 3.3 mmol/L (3.6-5.0) L 06/24/21 05:00 Chloride 98.9 mmol/L (98-107) 06/24/21 05:00 Carbon Dioxide 22 mmol/L (22-30) 06/24/21 05:00 Anion Gap 16 mmol/L 06/24/21 05:00 BUN 82 mg/dL (9-20) H 06/24/21 05:00 Creatinine 4.3 mg/dL (0.8-1.3) H 06/24/21 05:00 Estimated GFR 17 ml/min 06/24/21 05:00 BUN/Creatinine Ratio 19 % 06/24/21 05:00 Glucose 73 mg/dL (75-100) L 06/24/21 05:00 POC Glucose 72 mg/dL (70-105) 06/24/21 17:55 Lactic Acid 1.00 mmol/L (0.7-2.0) 06/19/21 16:20 Calcium 7.2 mg/dL (8.4-10.2) L 06/24/21 05:00 Phosphorus 5.40 mg/dL (2.5-4.5) H 06/24/21 05:00 Magnesium 1.60 mg/dL (1.7-2.3) L 06/24/21 05:00 Ferritin 2742.0 ng/mL (30.0-300.0) H 05/27/21 08:09 Total Bilirubin 0.20 mg/dL (0.1-1.2) 06/21/21 07:45 AST 51 units/L (5-40) H 06/21/21 07:45 ALT 14 units/L (7-56) 06/21/21 07:45 Alkaline Phosphatase 122 units/L (35-129) 06/21/21 07:45 Ammonia 22.0 umol/L (25-60) L 05/23/21 18:48 Lactate Dehydrogenase 642 units/L (91-180) H 05/27/21 08:09 Troponin T 0.105 ng/mL (0.00-0.029) H* 06/20/21 05:00 C-Reactive Protein 11.50 mg/dL (0.00-1.30) H 06/19/21 16:15 Total Protein 3.9 g/dL (6.3-8.2) L 06/21/21 07:45 Albumin 1.3 g/dL (3.9-5) L 06/21/21 07:45 Albumin/Globulin Ratio 0.5 % 06/21/21 07:45 Triglycerides 557 mg/dL (2-149) H 06/24/21 05:00 Cholesterol 85 mg/dL (50-199) 06/19/21 12:19 LDL Cholesterol Direct 24 mg/dL (50-130) L 06/19/21 12:19 HDL Cholesterol 17 mg/dL (40-59) L 06/19/21 12:19 Cholesterol/HDL Ratio 5.00 % 06/19/21 12:19 Procalcitonin 19.60 ng/mL (<0.15) 06/18/21 Unknown TSH 1.150 mlU/mL (0.270-4.200) 05/23/21 18:48 Arterial Blood Glucose 74 mg/dL (65-95) 06/24/21 04:00 Arterial Blood Ionized Calcium 4.5 mg/dL (4.6-5.3) L 05/29/21 17:58 Urine Color Eli (Yellow) 06/20/21 12:35 Urine Turbidity Cloudy (Clear) 06/20/21 12:35 Urine pH 5.0 (5.0-7.0) 06/20/21 12:35 Ur Specific [place] 1.016 (1.003-1.030) 06/20/21 12:35 Urine Protein 100 mg/dl mg/dL (Negative) 06/20/21 12:35 Urine Glucose (UA) 50 mg/dL (Negative) 06/20/21 12:35 Urine Ketones Neg mg/dL (Negative) 06/20/21 12:35 Urine Blood Mod (Negative) 06/20/21 12:35 Urine Nitrite Neg (Negative) 06/20/21 12:35 Urine Bilirubin Neg (Negative) 06/20/21 12:35 Urine Urobilinogen < 2.0 mg/dL (<2.0) 06/20/21 12:35 Ur Leukocyte Esterase Neg (Negative) 06/20/21 12:35 Urine WBC (Auto) 46.0 /HPF (0.0-6.0) H 06/20/21 12:35 Urine RBC (Auto) 74.0 /HPF (0.0-6.0) 06/20/21 12:35 U Epithel Cells (Auto) 2.0 /HPF (0-13.0) 05/30/21 01:00 Urine Bacteria (Auto) 4+ /HPF (Negative) 06/20/21 12:35 Urine WBC Clumps Few /HPF 06/20/21 12:35 Uric Acid Crystals Few 05/30/21 01:00 Amorphous Crystals 3+ 06/20/21 12:35 Granular Casts 90 /LPF 06/20/21 12:35 Urine Mucus Few /HPF 06/20/21 12:35 Ur Yeast w Hyphae 2+ /HPF 06/18/21 Unknown Urine Yeast (Budding) 3+ /HPF 06/18/21 Unknown Urine Sperm Few /HPF (ROOFING TILE SORTER) 06/20/21 12:35 Urine Eosinophils None seen (None Seen) 06/18/21 11:24 Urine Creatinine 49.9 mg/dL (0.1-20.0) H 06/19/21 11:14 Urine Sodium 56 mmol/L 06/19/21 11:14 Fraction Sodium Excret 2.3 06/19/21 11:14 Nasal Screen MRSA (PCR) Negative (Negative) 06/15/21 Unknown Vancomycin Trough 18.1 ug/mL (5.0-20.0) 06/16/21 22:30 Plasma/Serum Alcohol < 0.01 % (0-0.07) 05/23/21 18:48 Proteinase 3 (PR3) Ab <1.0 AI (<1.0) 05/24/21 20:57 Myeloperoxidase Ab <1.0 AI (<1.0) 05/24/21 20:57 Complement C3 108 mg/dL (82-185) 05/24/21 20:57 Complement C4 29 mg/dL (15-53) 05/24/21 20:57 Coronavirus (PCR) Negative (Negative) 05/26/21 08:41 Blood Type A POSITIVE 06/20/21 22:38 Antibody Screen Negative 06/20/21 22:38 Crossmatch See Detail 06/20/21 22:38 Microbiology: Microbiology 06/17/21 18:29 Tracheal Aspirate Sputum Culture - Final [place] Albicans Heart/IV: Voiding Method Indwelling Catheter Active Medications - Current Medications Current Medications: Generic Name Dose Route Start Last Admin Trade Name Freq PRN Reason Stop Dose Admin Acetaminophen 650 mg 06/19/21 12:00 06/24/21 09:45 Acetaminophen 325 Mg/10.15 Ml Oral Liqd Unit Dose FEEDTUBE 650 mg Q6H PRN Administration Pain MILD(1-3)/Fever >100.5/LUCAS Albuterol/Ipratropium 1 ampul 06/07/21 20:00 06/24/21 15:25 Ipratropium/Albuterol Sulfate 3 Ml Ampul.Neb IH 1 ampul TIDRT MIKE Administration Lipase/Protease/Amylase 1 each 06/18/21 12:21 Lipase 10,500/Protease 25,000/Amylase 43,750 (Units) Dr Cap FEEDTUBE PRN PRN For Clogged Feeding Tube Dextrose 25 ml 06/24/21 12:36 06/24/21 12:55 Dextrose 50% In Water (25gm) 50 Ml Syringe IV 25 ml Q30MIN PRN Administration Hypoglycemia Protocol Famotidine 10 mg 06/19/21 10:00 06/24/21 09:45 Famotidine 20 Mg/2 Ml Inj IV 10 mg BID MIKE Administration Fentanyl 50 mcg 06/17/21 17:00 Fentanyl 100 Mcg/2 Ml Inj IV Q10MIN PRN ANALGESIA Hydrophilic Ointment 1 applic 06/17/21 17:00 Lip Therapy Vaseline TP Q2HR PRN Dry Lips Metronidazole 500 mg in 100 mls @ 100 mls/hr 06/08/21 13:00 06/24/21 15:10 Flagyl 500 Mg/100 Ml IV 06/29/21 05:59 100 mls/hr Q8H MIKE Administration Protocol Fentanyl Citrate 2,000 mcg in 100 mls @ 3.725 mls/hr 06/17/21 17:00 06/24/21 17:41 Fentanyl Drip Premix IV 3 mcg/kg/hr TITR MIKE 11.175 mls/hr Administration Protocol 1 MCG/KG/HR NORepinephrine/NS 8 MG-250 ML 8 mg in 250 mls @ 3.75 mls/hr 06/18/21 23:00 06/24/21 19:07 Norepinephrine/Ns 8 Mg-250 Ml (Double Conc) IV 30 mcg/min TITRATE MIKE 56.25 mls/hr Administration Protocol 2 MCG/MIN Cefepime HCl 2 gm in 100 mls @ 200 mls/hr 06/20/21 06:00 06/24/21 05:03 Cefepime/Ns 2 Gm/100 Ml IV 06/29/21 06:29 200 mls/hr Q24H MIKE Administration Protocol Propofol 1,000 mg in 100 mls @ 2.226 mls/hr 06/20/21 13:00 06/24/21 12:00 Diprivan 10 Mg/Ml IV 20 mcg/kg/min TITR MIKE 8.904 mls/hr Titration Protocol 5 MCG/KG/MIN Sodium Chloride 100 mls @ 999 mls/hr 06/23/21 11:09 Nacl 0.9% IV KAVITA PRN Hypotension Vasopressin 20 unit/ Sodium 101 mls @ 9.09 mls/hr 06/24/21 10:00 06/24/21 12:27 Chloride IV 0.03 units/min TITR MIKE 9.09 mls/hr Administration Protocol 0.03 UNITS/MIN Lacosamide 50 mg/ Sodium 105 mls @ 100 mls/hr 06/24/21 12:00 06/24/21 12:27 Chloride IV 100 mls/hr Q12H MIKE Administration Lorazepam 2 mg 06/23/21 22:12 Lorazepam 2 Mg/Ml Vial IV Q4H PRN Agitation Morphine Sulfate 2 mg 05/23/21 22:01 06/17/21 10:01 Morphine 2 Mg/1 Ml Inj IV 2 mg Q4H PRN Administration Pain, Moderate (4-6) Multi-Ingred Cream/Lotion/Oil/Oint 1 applic 06/17/21 18:00 Mineral Oil/Petrolatum, White Ophth Oint 3.5 Gm OU Q4HR PRN Dry Eye(s) Ondansetron HCl 4 mg 06/04/21 13:41 06/09/21 22:05 Ondansetron 4 Mg/2 Ml Inj IV 4 mg Q4H PRN Administration Nausea And Vomiting Senna/Docusate Sodium 1 tab 06/17/21 22:00 06/24/21 16:45 Sennosides/Docusate Sodium 8.6/50 Mg Tab FEEDTUBE Not Given BID MIKE Simple Syrup 15 ml 06/18/21 12:21 06/23/21 23:31 Simple Syrup 15 Ml FEEDTUBE 15 ml PRN PRN Administration Hypoglycemia Simple Syrup 30 ml 06/18/21 12:21 Simple Syrup 15 Ml FEEDTUBE PRN PRN Hypoglycemia Sodium Bicarbonate 325 mg 06/18/21 12:21 Sodium Bicarbonate 325 Mg Tab FEEDTUBE PRN PRN For Clogged Feeding Tube Sodium Chloride 10 ml 05/23/21 22:01 06/22/21 21:23 Sodium Chloride 0.9% 10 Ml Flush Syringe IV 10 ml PRN PRN Administration LINE FLUSH Nutrition/Malnutrition Assess - Dietary Evaluation Nutrition/Malnutrition Findings: Nutrition Notes Start: 05/25/21 09:33 Freq: Status: Active Protocol: Document 06/24/21 12:44 GB (Rec: 06/24/21 12:54 GB [id number]) Nutrition Notes Initial or Follow up Reassessment Current Diagnosis Respiratory Failure Other Pertinent Diagnosis Accute Kidney Injury, Pneumonia, PUI Covid-19. Current Diet NPO, Tube Feeding Nepro Labs/Tests 06/24: BUN 82, creatinine 4.3, Glu 73, Ca 7.2, Na 134, K 3.3 , Tg 557 Pertinent Medications fentanyl citrate, Norepinhephrin/Ns8 Mg250, KCl, Vassopresin, propofol 2.226ml /hr (58kcal) @0/0 for assessment. Height 5 ft 11 in Weight 81.8 kg [place] Body Weight (kg) 78.18 BMI 25.1 Weight change and time frame 05/24: 77.111kg 06/22: 81.8kg change of +4.689kg for +6% signficance. Weight Status Appropriate Subjective/Other Information Last BM: bowel status diarrhea 06/24 MD note 06/24: Pt experienced seziure, TF PRN r/t tube clogging. Per chart: TF is running Percent of energy/protein needs met: TF at goal rate meets 75% or greater EEN Burn Absent Trauma Absent GI Symptoms Diarrhea Difficulty In Swallowing Food Allergy No Skin Integrity/Comment PI: buttocks Current % PO Other Minimum of two criteria No physical signs of malnutrition #2 Nutrition Diagnosis No nutrition diagnosis at this time #1 Nutrition Diagnosis Swallowing difficulty Comments: 06/20: Tube feeding started , Nepro @41ml/hr at goal, tolerating 06/24: Nepro 41ml/hr. TF PRN r/t tube clogging. Etiology acute illness As Evidenced by Signs and Symptoms Intubated, TF Diagnosis Progress(for reassessment Continues documentation) Is patient on ventilator? Yes Is Patient Ambulatory and/or Out of Bed No REE-([facility]-confined to bed) 1995.740 Kcal/Kg value to use for calculation 25 Approximate Energy Requirements Using 5 kcal/Kg Calculation Used for Recommendations Kcal/kg Additional Notes protein needs: 1.0-1.2 g/Kg/ day @78kg; 78-94 g/day ( continue at this weight) fluid needs: 1.0 ml/kcal, or as per MD. Nutrition Intervention Change Diet Order: NPO - continue Nutrition Support: TF- Nepro @41ml/hr continue Flush 190ml/4hr Total fluids: TF at goal + Flush = 1855ml Kcal 1,771 Protein (gm) 80 Carbohydrates (gm) 161 Fat (gm) 96 Fluid (mL) 715 Goal #1 Maintain body weight within +/ -3% of current BWt during LOS. 06/20: met, -3.7% in 30 days, continues 06/24: Gain of 6%, change r/t IV fluids, recent event Goal #2 Reach and maintain acceptable chemistry lab values during LOS. 06/20: showing improvement, continues 06/24: continues Goal #3 Tolerate TF at goal 41ml/hr during LOS 06/20: met, continues 06/24: continues, Tube has been documented to getting clogged Follow-Up By: 07/01/21 Additional Comments f/u: TF, vent status <WAYNE GIPSON - Last Filed: 06/25/21 14:07> Assessment and Plan Assessment and plan: I saw and evaluated the patient. Discussed with the nurse practitioner and agree with their findings and plan as documented in this note. Hospitalist Physical - Constitutional Vitals: Temp Pulse Resp BP Pulse Ox 98.4 F 131 H 29 H 88/49 93 06/25/21 12:00 06/25/21 10:00 06/25/21 10:00 06/25/21 10:00 06/25/21 10:00 HEART Score - HEART Score Troponin: Troponin T 0.105 ng/mL (0.00-0.029) H* 06/20/21 05:00 Results - Labs CBC & Chem 7: 06/25/21 Unknown 06/25/21 Unknown Labs: Laboratory Last Values WBC 2.3 K/mm3 (4.5-11.0) L 06/25/21 Unknown RBC 2.84 M/mm3 (3.65-5.03) L 06/25/21 Unknown Hgb 7.6 gm/dl (11.8-15.2) L 06/25/21 Unknown Hct 24.3 % (35.5-45.6) L 06/25/21 Unknown MCV 86 fl (84-94) 06/25/21 Unknown MCH 27 pg (28-32) L 06/25/21 Unknown MCHC 31 % (32-34) L 06/25/21 Unknown RDW 18.0 % (13.2-15.2) H 06/25/21 Unknown Plt Count 51 K/mm3 (140-440) L D 06/25/21 Unknown Lymph % (Auto) Prototype Machinist 06/01/21 07:10 [place] % (Auto) [employer] 06/01/21 07:10 Eos % (Auto) [employer] 06/01/21 07:10 Baso % (Auto) [employer] 06/01/21 07:10 Lymph # (Auto) [employer] 06/01/21 07:10 [place] # (Auto) [employer] 06/01/21 07:10 Eos # (Auto) [employer] 06/01/21 07:10 Baso # (Auto) [employer] 06/01/21 07:10 Add Manual Diff Complete 06/25/21 Unknown Total Counted 100 06/25/21 Unknown Seg Neutrophils % [employer] 06/17/21 06:25 Seg Neuts % (Manual) 66.0 % (40.0-70.0) 06/25/21 Unknown Band Neutrophils % 13.0 % 06/25/21 Unknown Lymphocytes % (Manual) 14.0 % (13.4-35.0) 06/25/21 Unknown Reactive Lymphs % (Man) 1.0 % 06/01/21 07:10 Monocytes % (Manual) 4.0 % (0.0-7.3) 06/25/21 Unknown Eosinophils % (Manual) 1.0 % (0.0-4.3) 06/25/21 Unknown Metamyelocytes % 2.0 % 06/25/21 Unknown Myelocytes % 1.0 % 06/13/21 06:05 Nucleated RBC % 6.0 % (0.0-0.9) H 06/25/21 Unknown Seg Neutrophils # [employer] 06/01/21 07:10 Seg Neutrophils # Man 1.5 K/mm3 (1.8-7.7) L 06/25/21 Unknown Band Neutrophils # 0.3 K/mm3 06/25/21 Unknown Lymphocytes # (Manual) 0.3 K/mm3 (1.2-5.4) L 06/25/21 Unknown Abs React Lymphs (Man) 0.0 K/mm3 06/25/21 Unknown Monocytes # (Manual) 0.1 K/mm3 (0.0-0.8) 06/25/21 Unknown Eosinophils # (Manual) 0.0 K/mm3 (0.0-0.4) 06/25/21 Unknown Basophils # (Manual) 0.0 K/mm3 (0.0-0.1) 06/25/21 Unknown Metamyelocytes # 0.0 K/mm3 06/25/21 Unknown Myelocytes # 0.0 K/mm3 06/25/21 Unknown Promyelocytes # 0.0 K/mm3 06/25/21 Unknown Blast Cells # 0.0 K/mm3 06/25/21 Unknown WBC Morphology Not Reportable 06/25/21 Unknown Hypersegmented Neuts Not Reportable 06/25/21 Unknown Hyposegmented Neuts Not Reportable 06/25/21 Unknown Hypogranular Neuts Not Reportable 06/25/21 Unknown Smudge Cells Not Reportable 06/25/21 Unknown Toxic Granulation 1+ 06/25/21 Unknown Toxic Vacuolation Few 06/25/21 Unknown Dohle Bodies 2+ 06/25/21 Unknown Pelger-Huet Anomaly Not Reportable 06/25/21 Unknown Kaci Rods Not Reportable 06/25/21 Unknown Platelet Estimate Consistent w auto 06/25/21 Unknown Clumped Platelets Not Reportable 06/25/21 Unknown Plt Clumps, EDTA Not Reportable 06/25/21 Unknown Large Platelets Few 06/25/21 Unknown Giant Platelets Not Reportable 06/25/21 Unknown Platelet Satelliting Not Reportable 06/25/21 Unknown Plt Morphology Comment Not Reportable 06/25/21 Unknown RBC Morphology Not Reportable 06/25/21 Unknown Dimorphic RBCs Not Reportable 06/25/21 Unknown Polychromasia Not Reportable 06/25/21 Unknown Hypochromasia 3+ 06/25/21 Unknown Poikilocytosis Not Reportable 06/25/21 Unknown Anisocytosis 2+ 06/25/21 Unknown Microcytosis 2+ 06/25/21 Unknown Macrocytosis Not Reportable 06/25/21 Unknown Spherocytes Not Reportable 06/25/21 Unknown Pappenheimer Bodies Not Reportable 06/25/21 Unknown Sickle Cells Not Reportable 06/25/21 Unknown Target Cells Not Reportable 06/25/21 Unknown Tear Drop Cells Rare 06/25/21 Unknown Ovalocytes Few 06/25/21 Unknown Helmet Cells Not Reportable 06/25/21 Unknown [place] Bodies Not Reportable 06/25/21 Unknown Noble Rings Not Reportable 06/25/21 Unknown Mayco Cells Not Reportable 06/25/21 Unknown Bite Cells Not Reportable 06/25/21 Unknown Crenated Cell Not Reportable 06/25/21 Unknown Elliptocytes Not Reportable 06/25/21 Unknown Acanthocytes (Spur) Not Reportable 06/25/21 Unknown Rouleaux Few 06/25/21 Unknown Hemoglobin C Crystals Not Reportable 06/25/21 Unknown Schistocytes Not Reportable 06/25/21 Unknown Malaria parasites Not Reportable 06/25/21 Unknown Dick Bodies Not Reportable 06/25/21 Unknown Hem Pathologist Commnt No 06/25/21 Unknown PT 19.2 Sec. (12.2-14.9) H 06/19/21 09:37 INR 1.46 (0.87-1.13) H 06/19/21 09:37 APTT 54.3 Sec. (24.2-36.6) H 06/19/21 09:37 D-Dimer 3584.01 ng/mlDDU (0-234) H 05/27/21 08:09 ABG pH 7.195 pH Units (7.350-7.450) L* 10/20/21 10:20 POC ABG pCO2 53.8 mmHg (32.0-48.0) H 06/24/21 04:00 ABG pCO2 57.5 mm Hg 06/25/21 10:20 POC ABG pO2 53.1 mmHg (83-108) L 06/24/21 04:00 ABG pO2 71.0 mm Hg (80.0-90.0) L 06/25/21 10:20 POC ABG HCO3 22.4 06/24/21 04:00 ABG HCO3 21.8 mmol/L (20.0-26.0) 06/25/21 10:20 ABG O2 Saturation 95.8 % (95.0-99.0) 06/25/21 10:20 ABG O2 Content 19.6 (0.0-44) 06/25/21 10:20 POC ABG Base Excess -4.8 06/24/21 04:00 ABG Base Excess -7.1 mmol/L (-2.0-3.0) L 06/25/21 10:20 ABG Hemoglobin 8.6 gm/dl (14.0-18.0) L 06/25/21 10:20 ABG Oxyhemoglobin 83.8 (94-98) L 06/24/21 04:00 ABG Carboxyhemoglobin 2.1 % (0.0-5.0) 06/25/21 10:20 ABG Methemoglobin 0.6 % (0.0-1.5) 06/25/21 10:20 ABG Sodium 130.5 mmol/L (136.0-145.0) L 06/24/21 04:00 ABG Potassium 3.4 mmol/L (3.40-4.50) 06/24/21 04:00 ABG Chloride 102.0 mmol/L (98-107) 06/24/21 04:00 ABG Glucose 74 mg/dL (65-95) 06/24/21 04:00 VBG pH 7.254 (7.320-7.420) L 05/24/21 02:09 Oxyhemoglobin 93.2 % (95.0-99.0) L 06/25/21: Carboxyhemoglobin 1.2 (0.5-1.5) 06/24/21 04:00 FiO2 100 % 06/25/21 10:20 FiO2 % 85 06/24/21 04:00 Sodium 135 mmol/L (137-145) L 06/25/21 Unknown Potassium 4.2 mmol/L (3.6-5.0) D 06/25/21 Unknown Chloride 100.3 mmol/L (98-107) 06/25/21 Unknown Carbon Dioxide 18 mmol/L (22-30) L 06/25/21 Unknown Anion Gap 21 mmol/L 06/25/21 Unknown BUN 88 mg/dL (9-20) H 06/25/21 Unknown Creatinine 4.8 mg/dL (0.8-1.3) H 06/25/21 Unknown Estimated GFR 15 ml/min 06/25/21 Unknown BUN/Creatinine Ratio 18 % 06/25/21 Unknown Glucose 75 mg/dL (75-100) 06/25/21 Unknown POC Glucose 58 mg/dL (70-105) L 06/25/21 11:44 Lactic Acid 1.00 mmol/L (0.7-2.0) 06/19/21 16:20 Calcium 6.9 mg/dL (8.4-10.2) L 06/25/21 Unknown Phosphorus 6.30 mg/dL (2.5-4.5) H 06/25/21 Unknown Magnesium 1.80 mg/dL (1.7-2.3) 06/25/21 Unknown Ferritin 2742.0 ng/mL (30.0-300.0) H 05/27/21 08:09 Total Bilirubin 0.20 mg/dL (0.1-1.2) 06/21/21 07:45 AST 51 units/L (5-40) H 06/21/21 07:45 ALT 14 units/L (7-56) 06/21/21 07:45 Alkaline Phosphatase 122 units/L (35-129) 06/21/21 07:45 Ammonia 22.0 umol/L (25-60) L 05/23/21 18:48 Lactate Dehydrogenase 642 units/L (91-180) H 05/27/21 08:09 Troponin T 0.105 ng/mL (0.00-0.029) H* 06/20/21 05:00 C-Reactive Protein 11.50 mg/dL (0.00-1.30) H 06/19/21 16:15 Total Protein 3.9 g/dL (6.3-8.2) L 06/21/21 07:45 Albumin 1.3 g/dL (3.9-5) L 06/21/21 07:45 Albumin/Globulin Ratio 0.5 % 06/21/21 07:45 Triglycerides 557 mg/dL (2-149) H 06/24/21 05:00 Cholesterol 85 mg/dL (50-199) 06/19/21 12:19 LDL Cholesterol Direct 24 mg/dL (50-130) L 06/19/21 12:19 HDL Cholesterol 17 mg/dL (40-59) L 06/19/21 12:19 Cholesterol/HDL Ratio 5.00 % 06/19/21 12:19 Procalcitonin 19.60 ng/mL (<0.15) 06/18/21 Unknown TSH 1.150 mlU/mL (0.270-4.200) 05/23/21 18:48 Arterial Blood Glucose 74 mg/dL (65-95) 06/24/21 04:00 Arterial Blood Ionized Calcium 4.5 mg/dL (4.6-5.3) L 05/29/21 17:58 Urine Color Eli (Yellow) 06/20/21 12:35 Urine Turbidity Cloudy (Clear) 06/20/21 12:35 Urine pH 5.0 (5.0-7.0) 06/20/21 12:35 Ur Specific [place] 1.016 (1.003-1.030) 06/20/21 12:35 Urine Protein 100 mg/dl mg/dL (Negative) 06/20/21 12:35 Urine Glucose (UA) 50 mg/dL (Negative) 06/20/21 12:35 Urine Ketones Neg mg/dL (Negative) 06/20/21 12:35 Urine Blood Mod (Negative) 06/20/21 12:35 Urine Nitrite Neg (Negative) 06/20/21 12:35 Urine Bilirubin Neg (Negative) 06/20/21 12:35 Urine Urobilinogen < 2.0 mg/dL (<2.0) 06/20/21 12:35 Ur Leukocyte Esterase Neg (Negative) 06/20/21 12:35 Urine WBC (Auto) 46.0 /HPF (0.0-6.0) H 06/20/21 12:35 Urine RBC (Auto) 74.0 /HPF (0.0-6.0) 06/20/21 12:35 U Epithel Cells (Auto) 2.0 /HPF (0-13.0) 05/30/21 01:00 Urine Bacteria (Auto) 4+ /HPF (Negative) 06/20/21 12:35 Urine WBC Clumps Few /HPF 06/20/21 12:35 Uric Acid Crystals Few 05/30/21 01:00 Amorphous Crystals 3+ 06/20/21 12:35 Granular Casts 90 /LPF 06/20/21 12:35 Urine Mucus Few /HPF 06/20/21 12:35 Ur Yeast w Hyphae 2+ /HPF 06/18/21 Unknown Urine Yeast (Budding) 3+ /HPF 06/18/21 Unknown Urine Sperm Few /HPF (ROOFING TILE SORTER) 06/20/21 12:35 Urine Eosinophils None seen (None Seen) 06/18/21 11:24 Urine Creatinine 49.9 mg/dL (0.1-20.0) H 06/19/21 11:14 Urine Sodium 56 mmol/L 06/19/21 11:14 Fraction Sodium Excret 2.3 06/19/21 11:14 Nasal Screen MRSA (PCR) Negative (Negative) 06/15/21 Unknown Vancomycin Trough 18.1 ug/mL (5.0-20.0) 06/16/21 22:30 Plasma/Serum Alcohol < 0.01 % (0-0.07) 05/23/21 18:48 Proteinase 3 (PR3) Ab <1.0 AI (<1.0) 05/24/21 20:57 Myeloperoxidase Ab <1.0 AI (<1.0) 05/24/21 20:57 Complement C3 108 mg/dL (82-185) 05/24/21 20:57 Complement C4 29 mg/dL (15-53) 05/24/21 20:57 Coronavirus (PCR) Negative (Negative) 05/26/21 08:41 Blood Type A POSITIVE 06/20/21 22:38 Antibody Screen Negative 06/20/21 22:38 Crossmatch See Detail 06/20/21 22:38 Microbiology: Microbiology 06/17/21 18:29 Tracheal Aspirate Sputum Culture - Final [place] Albicans Heart/IV: Voiding Method Indwelling Catheter Active Medications - Current Medications Current Medications: Generic Name Dose Route Start Last Admin Trade Name Freq PRN Reason Stop Dose Admin Acetaminophen 650 mg 06/19/21 12:00 06/24/21 09:45 Acetaminophen 325 Mg/10.15 Ml Oral Liqd Unit Dose FEEDTUBE 650 mg Q6H PRN Administration Pain MILD(1-3)/Fever >100.5/LUCAS Albuterol/Ipratropium 1 ampul 06/07/21 20:00 06/24/21 21:16 Ipratropium/Albuterol Sulfate 3 Ml Ampul.Neb IH 1 ampul TIDRT MIKE Administration Lipase/Protease/Amylase 1 each 06/18/21 12:21 Lipase 10,500/Protease 25,000/Amylase 43,750 (Units) Dr Cap FEEDTUBE PRN PRN For Clogged Feeding Tube Dextrose 25 ml 06/24/21 12:36 06/25/21 09:03 Dextrose 50% In Water (25gm) 50 Ml Syringe IV 20 ml Q30MIN PRN Administration Hypoglycemia Protocol Famotidine 10 mg 06/19/21 10:00 06/25/21 09:05 Famotidine 20 Mg/2 Ml Inj IV 10 mg BID MIKE Administration Fentanyl 50 mcg 06/17/21 17:00 Fentanyl 100 Mcg/2 Ml Inj IV Q10MIN PRN ANALGESIA Hydrophilic Ointment 1 applic 06/17/21 17:00 Lip Therapy Vaseline TP Q2HR PRN Dry Lips Metronidazole 500 mg in 100 mls @ 100 mls/hr 06/08/21 13:00 06/25/21 12:50 Flagyl 500 Mg/100 Ml IV 06/29/21 05:59 100 mls/hr Q8H MIKE Administration Protocol Fentanyl Citrate 2,000 mcg in 100 mls @ 3.725 mls/hr 06/17/21 17:00 06/25/21 09:02 Fentanyl Drip Premix IV 3 mcg/kg/hr TITR MIKE 11.175 mls/hr Administration Protocol 1 MCG/KG/HR NORepinephrine/NS 8 MG-250 ML 8 mg in 250 mls @ 3.75 mls/hr 06/18/21 23:00 06/25/21 09:04 Norepinephrine/Ns 8 Mg-250 Ml (Double Conc) IV 30 mcg/min TITRATE MIKE 56.25 mls/hr Administration Protocol 2 MCG/MIN Cefepime HCl 2 gm in 100 mls @ 200 mls/hr 06/20/21 06:00 06/25/21 05:05 Cefepime/Ns 2 Gm/100 Ml IV 06/29/21 06:29 200 mls/hr Q24H MIKE Administration Protocol Propofol 1,000 mg in 100 mls @ 2.226 mls/hr 06/20/21 13:00 06/24/21 21:52 Diprivan 10 Mg/Ml IV 10 mcg/kg/min TITR MIKE 4.452 mls/hr Administration Protocol 5 MCG/KG/MIN Sodium Chloride 100 mls @ 999 mls/hr 06/23/21 11:09 Nacl 0.9% IV KAVITA PRN Hypotension Vasopressin 20 unit/ Sodium 101 mls @ 9.09 mls/hr 06/24/21 10:00 06/25/21 09:03 Chloride IV 0.03 units/min TITR MIKE 9.09 mls/hr Administration Protocol 0.03 UNITS/MIN Lacosamide 50 mg/ Sodium 105 mls @ 100 mls/hr 06/24/21 12:00 06/25/21 12:50 Chloride IV 100 mls/hr Q12H MIKE Administration Sodium Bicarbonate 150 meq/ 1,150 mls @ 75 mls/hr 06/25/21 12:00 06/25/21 11:40 Dextrose IV 06/27/21 03:19 75 mls/hr DIRECT MIKE Administration Lorazepam 2 mg 06/23/21 22:12 Lorazepam 2 Mg/Ml Vial IV Q4H PRN Agitation Morphine Sulfate 2 mg 05/23/21 22:01 06/17/21 10:01 Morphine 2 Mg/1 Ml Inj IV 2 mg Q4H PRN Administration Pain, Moderate (4-6) Multi-Ingred Cream/Lotion/Oil/Oint 1 applic 06/17/21 18:00 Mineral Oil/Petrolatum, White Ophth Oint 3.5 Gm OU Q4HR PRN Dry Eye(s) Ondansetron HCl 4 mg 06/04/21 13:41 06/09/21 22:05 Ondansetron 4 Mg/2 Ml Inj IV 4 mg Q4H PRN Administration Nausea And Vomiting Senna/Docusate Sodium 1 tab 06/17/21 22:00 06/25/21 09:05 Sennosides/Docusate Sodium 8.6/50 Mg Tab FEEDTUBE 1 tab BID MIKE Administration Simple Syrup 15 ml 06/18/21 12:21 06/23/21 23:31 Simple Syrup 15 Ml FEEDTUBE 15 ml PRN PRN Administration Hypoglycemia Simple Syrup 30 ml 06/18/21 12:21 Simple Syrup 15 Ml FEEDTUBE PRN PRN Hypoglycemia Sodium Bicarbonate 325 mg 06/18/21 12:21 Sodium Bicarbonate 325 Mg Tab FEEDTUBE PRN PRN For Clogged Feeding Tube Sodium Bicarbonate 100 meq 06/25/21 11:15 06/25/21 11:38 Sodium Bicarb 8.4% 50 Meq/50 Ml Syringe IV 06/25/21 15:15 100 meq ONCE@1115 MIKE Administration Sodium Chloride 10 ml 05/23/21 22:01 06/25/21 09:07 Sodium Chloride 0.9% 10 Ml Flush Syringe IV 10 ml PRN PRN Administration LINE FLUSH Nutrition/Malnutrition Assess - Dietary Evaluation Nutrition/Malnutrition Findings: Nutrition Notes Start: 05/25/21 09:33 Freq: Status: Active Protocol: Document 06/24/21 12:44 GB (Rec: 06/24/21 12:54 GB [id number]) Nutrition Notes Initial or Follow up Reassessment Current Diagnosis Respiratory Failure Other Pertinent Diagnosis Accute Kidney Injury, Pneumonia, PUI Covid-19. Current Diet NPO, Tube Feeding Nepro Labs/Tests 06/24: BUN 82, creatinine 4.3, Glu 73, Ca 7.2, Na 134, K 3.3 , Tg 557 Pertinent Medications fentanyl citrate, Norepinhephrin/Ns8 Mg250, KCl, Vassopresin, propofol 2.226ml /hr (58kcal) @0/0 for assessment. Height 5 ft 11 in Weight 81.8 kg [place] Body Weight (kg) 78.18 BMI 25.1 Weight change and time frame 05/24: 77.111kg 06/22: 81.8kg change of +4.689kg for +6% signficance. Weight Status Appropriate Subjective/Other Information Last BM: bowel status diarrhea 06/24 MD note 06/24: Pt experienced seziure, TF PRN r/t tube clogging. Per chart: TF is running Percent of energy/protein needs met: TF at goal rate meets 75% or greater EEN Burn Absent Trauma Absent GI Symptoms Diarrhea Difficulty In Swallowing Food Allergy No Skin Integrity/Comment PI: buttocks Current % PO Other Minimum of two criteria No physical signs of malnutrition #2 Nutrition Diagnosis No nutrition diagnosis at this time #1 Nutrition Diagnosis Swallowing difficulty Comments: 06/20: Tube feeding started , Nepro @41ml/hr at goal, tolerating 06/24: Nepro 41ml/hr. TF PRN r/t tube clogging. Etiology acute illness As Evidenced by Signs and Symptoms Intubated, TF Diagnosis Progress(for reassessment Continues documentation) Is patient on ventilator? Yes Is Patient Ambulatory and/or Out of Bed No REE-([facility]-confined to bed) 1995.740 Kcal/Kg value to use for calculation 25 Approximate Energy Requirements Using 2045 kcal/Kg Calculation Used for Recommendations Kcal/kg Additional Notes protein needs: 1.0-1.2 g/Kg/ day @78kg; 78-94 g/day ( continue at this weight) fluid needs: 1.0 ml/kcal, or as per MD. Nutrition Intervention Change Diet Order: NPO - continue Nutrition Support: TF- Nepro @41ml/hr continue Flush 190ml/4hr Total fluids: TF at goal + Flush = 1855ml Kcal 1,771 Protein (gm) 80 Carbohydrates (gm) 161 Fat (gm) 96 Fluid (mL) 715 Goal #1 Maintain body weight within +/ -3% of current BWt during LOS. 06/20: met, -3.7% in 30 days, continues 06/24: Gain of 6%, change r/t IV fluids, recent event Goal #2 Reach and maintain acceptable chemistry lab values during LOS. 06/20: showing improvement, continues 06/24: continues Goal #3 Tolerate TF at goal 41ml/hr during LOS 06/20: met, continues 06/24: continues, Tube has been documented to getting clogged Follow-Up By: 07/01/21 Additional Comments f/u: TF, vent status
[2021-06-25] MEDS ORDERED: LACOSAMIDE 50 MG TAB FEEDTUBE SCH (01:00)
[2021-06-25] MEDS: LACOSAMIDE 50 MG in SODIUM CHLORIDE 0.9% 100 ML IV SCH ×2 (03:54→12:50)
[2021-06-25] MEDS: NORepinephrine/NS 8 MG-250 ML 8 MG/250 ML INFUS..BTL IV SCH ×4 (05:03→18:35)
[2021-06-25] MEDS: metroNIDAZOLE/NS 500 MG/100 ML 500 MG/100 ML BAG IV SCH ×2 (05:04→12:50)
[2021-06-25] MEDS: CEFEPIME/NS 2 GM/100 ML 2 GM/100 ML BAG IV SCH (05:05)
[2021-06-25] MEDS: DEXTROSE 50% IN WATER (25GM) 50 ML SYRINGE IV PRN ×4 (05:14→16:30)
[2021-06-25 05:38] LABS: ABG HCO3 19.8 mmol/L (20.0-26.0); ABG Oxygen Saturation 83 % (95.0-99.0); ABG PCO2 84.3 mm Hg; ABG PH 6.989 pH Units (7.350-7.450); ABG PO2 64.2 mm Hg (80.0-90.0)
[2021-06-25 05:39] LABS: ABG Methemoglobin 0.8 % (0.0-1.5)
[2021-06-25 05:39] LABS: Hematocrit 24.3 % (35.5-45.6); Hemoglobin 7.6 gm/dl (11.8-15.2); Mean Corpuscular HGB Conc 31 % (32-34); Mean Corpuscular Volume 86 fl (84-94); Red Blood Count 2.84 M/mm3 (3.65-5.03)
[2021-06-25 05:47] LABS: Platelet Count 51 K/mm3 (140-440)
[2021-06-25 06:02] LABS: Calcium 6.9 mg/dL (8.4-10.2)
[2021-06-25 07:00] LABS: Anisocytosis 2+; Band Neutrophils # (Manual) 0.3 K/mm3; Hypochromasia 3+; Total Cells Counted 100
[2021-06-25 07:01] LABS: Dohle Bodies 2+; Large Platelets Few; Ovalocytes Few; Platelet Estimate Consistent w Auto; Rouleaux Few; Tear Drop Cells Rare; Toxic Granulation 1+; Toxic Vacuolation Few
[2021-06-25] MEDS ORDERED: CALCIUM GLUCONATE 1000 MG/10 ML INJ IV ONE (07:19)
[2021-06-25] MEDS ORDERED: SODIUM BICARB 8.4% 50 MEQ/50 ML SYRINGE IV SCH ×2 (08:00→11:15)
[2021-06-25] MEDS: fentaNYL DRIP Premix 2,000 MCG/100 ML BAG IV SCH ×2 (09:02→18:28)
[2021-06-25] MEDS: VASOPRESSIN 20 UNIT in SODIUM CHLORIDE 0.9% 100 ML IV SCH (09:03)
[2021-06-25] MEDS: SENNOSIDES/DOCUSATE SODIUM 8.6/50 MG TAB FEEDTUBE SCH (09:05)
[2021-06-25] MEDS: FAMOTIDINE 20 MG/2 ML INJ IV SCH (09:05)
--- NOTE | 2021-06-25 10:16 | Electrocardiograph Report ---
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
[2021-06-25 11:12] LABS: ABG Base Excess -7.1 mmol/L (-2.0-3.0); ABG HCO3 21.8 mmol/L (20.0-26.0); ABG Methemoglobin 0.6 % (0.0-1.5); ABG Oxygen Saturation 95.8 % (95.0-99.0); ABG PCO2 57.5 mm Hg
--- NOTE | 2021-06-25 11:29 | Progress Note ---
Assessment and Plan Assessment and Plan Assessment and plan: This is a 59-year-old male with CVA and current daily smoker admitted with pneumonia possibly secondary to COVID-19, hypoxia and encephalopathy # encephalopathy, mostly multifactorial -witnessed seizure last night was given ativan and started on Keppra IV -EEG is with diffuse slowing he is on fentanyl and propofol -Head CT repeat no brain abnormality , compared to old CT showed new onset Right maxillary sinusitis and Bilateral mastoid fluid level -Sedated with fentanyl#3 and propofol#10 -Goal RASS -1 to -2 -Maintenance of sleep-wake cycle -If no changes and is stable MRI brain is of value ? anoxic brain injury -On Vimpat 50 mg bid # S/p cardiac arrest -06/10 s/p cardiac arrest -Cardiology consulted, patient recommendations -Per cardiology not a candidate for anticoagulation secondary to anemia and beta-ian secondary to hypotension as well as reports of melena per nursing staff -Vasopressor support with Levophed -MAP goal of 65 -Echocardiogram shows left ventricle ejection fraction 55 to 60% # Acute hypoxic respiratory failure, left pneumothorax, aspiration pneumonia with left lower lobe lesion, pneumomediastinum -S/p BiPAP -CCM consulted, appreciate recommendation -CXR showed patchy multifocal airspace disease bilaterally -Patient was intubated 06/17 with a 8.0 OETT at 24 at the lips -A.m. vent settings: Assist control tidal volume 450, rate 30, PEEP 8 on 100% FiO2 -See RT notes for weaning -Serial ABG and CXR -06/23 ABG and CXR reviewed -VAP bundle -SPO2 monitoring -Daily SBT/SAT trials when appropriate -Chest tube to wall suction -VQ scan shows low probability of pulmonary embolism # NAD, s/p ileus (resolved) -NTR consult for tube feeding -Nephro at 41 ml/hr -Free water pressure 190 mL every 4 -PPI: Pepcid -BR: Senokot # Acute kidney injury secondary to vasomotor nephropathy, hypernatremia, hyperchloremia -Nephrology consulted, appreciate recommendations -Renal ultrasound unremarkable -Vasculitis work-up negative, including ANCA as well as complement levels -06/20 HD initiated by nephrology -HD per nephrology -Avoid nephrotoxic medications -Renally dose medication -Daily weights -Strict intake and output -Trend BMP # Aspiration pneumonia with left lower lobe abcess, COVID 19 PNA -Seen on CT abdomen pelvis and chest: Approximately 5 x 6 cm -Infectious disease consulted, appreciate recommendations -Covid 19 PCR positive at outpatient however negative x2 inpatient -CT abdomen/pelvis showed severe aspiration type pneumonia bilateral bases with lesion in the left lower lobe -Cefepime and Flagyl (planned 3 weeks of therapy) -> per ID -S/p azithromycin , ceftriaxone -S/p Decadron -S/p stress dose steroids -s/p Actemra on 05/24 -Monitor fever WBC curve -Follow-up culture data # Leukopenia, elevated D-dimer -D-dimer on admit greater than 10,000-> VQ scan with low probability of PE -D-dimer trending down -Eliquis 2.5 every 12 -Trend CBC -Transfuse for hemoglobin less than 7 # Witnessed seizure yesterday new onset -Suggest start Vimpat 50 mg Iv BID -Stop Keppra due to impaired Kidney function -CT brain is pending -EEG is pending -Cut down sedation so we can evaluate pt. mental status [Periodically ] sedation only on PRN -SSI -Accu-Cheks every 6 -Avoid hypoglycemia PLAN 1- MRI brain when stable and if no change in mentation 2- Stop sedation if possible 3- Maintain Vimpat 50 mg BID IV 4-Repeat CT brain showed new onset sinusitis and Mastoid fluid level ? infection 5- Thrombocytopenia and Leukopenia 6- could not tolerated HD 7- EEG is with diffuse slowing 3-4 Hz No epileptiform discharges is noted +++ Over all prognosis is quarded to poor will follow as needed The high probability of a clinically significant, sudden or life threatening deterioration of the [multi] system(s) required my full and direct attention, intervention and personal management. The aggregate critical care time was [60] minutes. This time is in addition to time spent performing reported procedures but includes the following: [x] Data Review and interpretation [x] Patient assessment and monitoring of vital signs [x] Documentation [x] Medication orders and management Disposition Plan: icu Total Time Spent with Patient (Minutes): 20 Subjective Date of service: 06/25/21 Principal diagnosis: Acute hypoxemic resp failure; Pneumonia; PUI COVID-19 infection Interval history: status is unchanged he is intubated sedated On Propofol#10mc Fentanyl #3 rita Norepi.#30 Mc he is on Vimpat for seizure BP today # 87/47 on Epi BUN/Cr#8.8/4.8 could not tolerated HD No more seizure is reported Repeat CT brain is unremarkable EEG is remarkable for diffuse slowing no epileptiform d/c is noted ,he is on Propofol and fentanyl. Objective - Vital Sign Vital Signs - 12hr 06/24/21 06/24/21 06/24/21 23:30 23:45 23:56 Temperature Pulse Rate 129 H 129 H 129 H Pulse Rate [ From Monitor] Respiratory 31 H 30 H 30 H Rate Blood Pressure 91/58 110/55 110/55 O2 Sat by Pulse 94 93 94 Oximetry 06/25/21 06/25/21 06/25/21 00:00 00:15 00:30 Temperature 100.2 F H Pulse Rate 129 H 130 H 131 H Pulse Rate [ From Monitor] Respiratory 30 H 30 H 31 H Rate Blood Pressure 119/59 120/59 102/55 O2 Sat by Pulse 93 91 89 Oximetry 06/25/21 06/25/21 06/25/21 00:33 00:45 01:00 Temperature Pulse Rate 131 H 130 H 134 H Pulse Rate [ From Monitor] Respiratory 31 H 30 H Rate Blood Pressure 102/55 98/55 O2 Sat by Pulse 91 90 95 Oximetry 06/25/21 06/25/21 06/25/21 01:10 01:15 01:30 Temperature Pulse Rate 130 H 129 H 129 H Pulse Rate [ From Monitor] Respiratory 31 H 28 H 30 H Rate Blood Pressure 111/58 O2 Sat by Pulse 91 92 91 Oximetry 06/25/21 06/25/21 06/25/21 01:45 02:00 02:15 Temperature Pulse Rate 129 H 129 H 130 H Pulse Rate [ From Monitor] Respiratory 27 H 31 H 30 H Rate Blood Pressure 102/58 93/57 86/56 O2 Sat by Pulse 91 91 91 Oximetry 06/25/21 06/25/21 06/25/21 02:31 02:45 03:01 Temperature Pulse Rate 127 H 122 H Pulse Rate [ From Monitor] Respiratory 24 19 Rate Blood Pressure 86/56 105/52 79/50 O2 Sat by Pulse 86 78 L Oximetry 06/25/21 06/25/21 06/25/21 03:15 03:30 03:43 Temperature 97.0 F L Pulse Rate 124 H 125 H Pulse Rate [ From Monitor] Respiratory 30 H 30 H Rate Blood Pressure 96/51 106/52 O2 Sat by Pulse 99 76 L Oximetry 06/25/21 06/25/21 06/25/21 03:45 04:00 04:15 Temperature Pulse Rate 126 H 127 H 126 H Pulse Rate [ From Monitor] Respiratory 30 H 32 H 31 H Rate Blood Pressure 106/52 111/54 111/54 O2 Sat by Pulse 91 78 L Oximetry 06/25/21 06/25/21 06/25/21 04:30 04:45 04:46 Temperature Pulse Rate 126 H 124 H 123 H Pulse Rate [ From Monitor] Respiratory 28 H 30 H Rate Blood Pressure 110/54 119/54 101/36 O2 Sat by Pulse 94 Oximetry 06/25/21 06/25/21 06/25/21 05:00 05:15 05:31 Temperature Pulse Rate 121 H 125 H 126 H Pulse Rate [ 133 H From Monitor] Respiratory 30 H 31 H 30 H Rate Blood Pressure 89/48 94/49 88/55 O2 Sat by Pulse 100 92 Oximetry 06/25/21 06/25/21 06/25/21 05:46 06:00 06:15 Temperature Pulse Rate 128 H 130 H 131 H Pulse Rate [ From Monitor] Respiratory 32 H 30 H 31 H Rate Blood Pressure 101/56 109/52 95/51 O2 Sat by Pulse 92 93 84 Oximetry 06/25/21 06/25/21 06/25/21 06:30 06:45 07:00 Temperature Pulse Rate 131 H 131 H 131 H Pulse Rate [ From Monitor] Respiratory 31 H 30 H 29 H Rate Blood Pressure 93/49 91/48 88/49 O2 Sat by Pulse Oximetry 06/25/21 06/25/21 07:26 10:00 Temperature 100.0 F H Pulse Rate 131 H Pulse Rate [ From Monitor] Respiratory 29 H Rate Blood Pressure 88/49 O2 Sat by Pulse 93 Oximetry - General Apperance Constitutional: comfortable - EENT EENT: PERRL, mucous membranes moist - Respiratory Respiratory: lungs clear, rhonchi - Cardiovascular Cardiovascular: regular rate, normal S1, normal S2 Extremities: no peripheral edema bilat - Gastrointestinal Gastrointestinal: normoactive bowel sounds - Integumentary Integumentary: normal - Neurologic Cranial nerve examination: PERRL, EOMI, VFF, intact, other (gag is intact, EOMI,pupils 3 mm reactive sluggish , corneal absent bilateral ,on vent ) Speech examination: other (intubated and sedated) Detailed motor examination: other (no response to stimuli no movments ) - Laboratory Findings CBC and BMP: 06/25/21 Unknown 06/25/21 Unknown Abnormal Lab Findings: Abnormal Labs 05/23/21 05/23/21 05/23/21 18:48 18:48 18:48 WBC 11.8 H RBC 5.18 H Hgb Hct MCV MCH MCHC RDW Plt Count Seg Neuts % (Manual) 84.0 H Lymphocytes % (Manual) Monocytes % (Manual) Nucleated RBC % Seg Neutrophils # Man 9.9 H Lymphocytes # (Manual) PT INR APTT D-Dimer > 72246 H ABG pH POC ABG pCO2 POC ABG pO2 ABG pO2 ABG HCO3 ABG O2 Saturation ABG Base Excess ABG Hemoglobin ABG Oxyhemoglobin ABG Sodium ABG Potassium ABG Chloride ABG Glucose VBG pH Oxyhemoglobin Carboxyhemoglobin Sodium Potassium Chloride Carbon Dioxide BUN Creatinine Glucose POC Glucose Lactic Acid 2.30 H* Calcium Phosphorus Magnesium Ferritin AST ALT Ammonia Lactate Dehydrogenase Troponin T C-Reactive Protein Total Protein Albumin Triglycerides LDL Cholesterol Direct HDL Cholesterol Arterial Blood Glucose Arterial Blood Ionized Calcium Urine WBC (Auto) Urine Creatinine Vancomycin Trough Crossmatch 05/23/21 05/23/21 05/23/21 18:48 18:48 18:48 WBC RBC Hgb Hct MCV MCH MCHC RDW Plt Count Seg Neuts % (Manual) Lymphocytes % (Manual) Monocytes % (Manual) Nucleated RBC % Seg Neutrophils # Man Lymphocytes # (Manual) PT INR APTT D-Dimer ABG pH POC ABG pCO2 POC ABG pO2 ABG pO2 ABG HCO3 ABG O2 Saturation ABG Base Excess ABG Hemoglobin ABG Oxyhemoglobin ABG Sodium ABG Potassium ABG Chloride ABG Glucose VBG pH Oxyhemoglobin Carboxyhemoglobin Sodium 151 H Potassium 5.1 H Chloride 113.2 H Carbon Dioxide 17 L BUN 180 H Creatinine 4.3 H Glucose 114 H POC Glucose Lactic Acid Calcium Phosphorus Magnesium Ferritin 2000.0 H AST ALT Ammonia 22.0 L Lactate Dehydrogenase 577 H Troponin T C-Reactive Protein 8.80 H Total Protein 9.4 H Albumin 3.0 L Triglycerides LDL Cholesterol Direct HDL Cholesterol Arterial Blood Glucose Arterial Blood Ionized Calcium Urine WBC (Auto) Urine Creatinine Vancomycin Trough Crossmatch 05/23/21 05/24/21 05/24/21 21:06 02:09 02:09 WBC RBC Hgb Hct MCV MCH MCHC RDW Plt Count Seg Neuts % (Manual) Lymphocytes % (Manual) Monocytes % (Manual) Nucleated RBC % Seg Neutrophils # Man Lymphocytes # (Manual) PT INR APTT D-Dimer ABG pH POC ABG pCO2 POC ABG pO2 ABG pO2 ABG HCO3 ABG O2 Saturation ABG Base Excess ABG Hemoglobin ABG Oxyhemoglobin ABG Sodium ABG Potassium ABG Chloride ABG Glucose VBG pH 7.254 L Oxyhemoglobin Carboxyhemoglobin Sodium Potassium Chloride Carbon Dioxide BUN Creatinine Glucose POC Glucose Lactic Acid 2.10 H* 2.30 H* Calcium Phosphorus Magnesium Ferritin AST ALT Ammonia Lactate Dehydrogenase Troponin T C-Reactive Protein Total Protein Albumin Triglycerides LDL Cholesterol Direct HDL Cholesterol Arterial Blood Glucose Arterial Blood Ionized Calcium Urine WBC (Auto) Urine Creatinine Vancomycin Trough Crossmatch 05/24/21 05/24/21 05/24/21 13:11 17:34 18:12 WBC RBC Hgb Hct MCV MCH MCHC RDW Plt Count Seg Neuts % (Manual) Lymphocytes % (Manual) Monocytes % (Manual) Nucleated RBC % Seg Neutrophils # Man Lymphocytes # (Manual) PT INR APTT D-Dimer ABG pH POC ABG pCO2 POC ABG pO2 ABG pO2 ABG HCO3 ABG O2 Saturation ABG Base Excess ABG Hemoglobin ABG Oxyhemoglobin ABG Sodium ABG Potassium ABG Chloride ABG Glucose VBG pH Oxyhemoglobin Carboxyhemoglobin Sodium 155 H Potassium 6.9 H* D 5.7 H Chloride 121.9 H Carbon Dioxide 20 L BUN 139 H Creatinine 2.7 H Glucose 139 H POC Glucose 153 H Lactic Acid Calcium Phosphorus Magnesium Ferritin AST ALT Ammonia Lactate Dehydrogenase Troponin T C-Reactive Protein Total Protein Albumin Triglycerides LDL Cholesterol Direct HDL Cholesterol Arterial Blood Glucose Arterial Blood Ionized Calcium Urine WBC (Auto) Urine Creatinine Vancomycin Trough Crossmatch 05/25/21 05/25/21 05/26/21 11:33 11:33 03:15 WBC 13.8 H RBC 5.06 H Hgb Hct MCV MCH MCHC RDW Plt Count Seg Neuts % (Manual) Lymphocytes % (Manual) Monocytes % (Manual) Nucleated RBC % Seg Neutrophils # Man Lymphocytes # (Manual) PT INR APTT D-Dimer ABG pH POC ABG pCO2 POC ABG pO2 ABG pO2 ABG HCO3 ABG O2 Saturation ABG Base Excess ABG Hemoglobin ABG Oxyhemoglobin ABG Sodium ABG Potassium ABG Chloride ABG Glucose VBG pH Oxyhemoglobin Carboxyhemoglobin Sodium 164 H* D 166 H* Potassium 5.4 H 5.5 H Chloride 131.3 H 129.2 H Carbon Dioxide BUN 109 H 102 H Creatinine 1.9 H 1.8 H Glucose 117 H 113 H POC Glucose Lactic Acid Calcium Phosphorus Magnesium Ferritin AST ALT Ammonia Lactate Dehydrogenase 711 H Troponin T C-Reactive Protein 7.90 H Total Protein Albumin Triglycerides LDL Cholesterol Direct HDL Cholesterol Arterial Blood Glucose Arterial Blood Ionized Calcium Urine WBC (Auto) Urine Creatinine Vancomycin Trough Crossmatch 05/26/21 05/26/21 05/26/21 03:15 03:15 03:15 WBC 13.1 H RBC 5.43 H Hgb 15.3 H Hct 48.5 H MCV MCH MCHC RDW 15.4 H Plt Count Seg Neuts % (Manual) Lymphocytes % (Manual) Monocytes % (Manual) Nucleated RBC % Seg Neutrophils # Man Lymphocytes # (Manual) PT INR APTT D-Dimer 6229.14 H ABG pH POC ABG pCO2 POC ABG pO2 ABG pO2 ABG HCO3 ABG O2 Saturation ABG Base Excess ABG Hemoglobin ABG Oxyhemoglobin ABG Sodium ABG Potassium ABG Chloride ABG Glucose VBG pH Oxyhemoglobin Carboxyhemoglobin Sodium Potassium Chloride Carbon Dioxide BUN Creatinine Glucose POC Glucose Lactic Acid Calcium Phosphorus Magnesium Ferritin 2991.0 H AST ALT Ammonia Lactate Dehydrogenase Troponin T C-Reactive Protein Total Protein Albumin Triglycerides LDL Cholesterol Direct HDL Cholesterol Arterial Blood Glucose Arterial Blood Ionized Calcium Urine WBC (Auto) Urine Creatinine Vancomycin Trough Crossmatch 05/27/21 05/27/21 05/27/21 08:09 08:09 08:09 WBC 12.4 H RBC 5.27 H Hgb Hct 46.6 H MCV MCH MCHC 31 L RDW 15.7 H Plt Count Seg Neuts % (Manual) Lymphocytes % (Manual) Monocytes % (Manual) Nucleated RBC % Seg Neutrophils # Man Lymphocytes # (Manual) PT INR APTT D-Dimer 3584.01 H ABG pH POC ABG pCO2 POC ABG pO2 ABG pO2 ABG HCO3 ABG O2 Saturation ABG Base Excess ABG Hemoglobin ABG Oxyhemoglobin ABG Sodium ABG Potassium ABG Chloride ABG Glucose VBG pH Oxyhemoglobin Carboxyhemoglobin Sodium 174 H* Potassium Chloride 136.9 H Carbon Dioxide BUN 90 H Creatinine 1.8 H Glucose POC Glucose Lactic Acid Calcium Phosphorus Magnesium Ferritin AST ALT Ammonia Lactate Dehydrogenase 642 H Troponin T C-Reactive Protein 5.20 H Total Protein Albumin Triglycerides LDL Cholesterol Direct HDL Cholesterol Arterial Blood Glucose Arterial Blood Ionized Calcium Urine WBC (Auto) Urine Creatinine Vancomycin Trough Crossmatch 05/27/21 05/28/21 05/28/21 08:09 07:31 07:31 WBC RBC Hgb Hct MCV MCH 27 L MCHC 31 L RDW Plt Count Seg Neuts % (Manual) 88.0 H Lymphocytes % (Manual) 11.0 L Monocytes % (Manual) Nucleated RBC % Seg Neutrophils # Man 8.3 H Lymphocytes # (Manual) 1.0 L PT INR APTT D-Dimer ABG pH POC ABG pCO2 POC ABG pO2 ABG pO2 ABG HCO3 ABG O2 Saturation ABG Base Excess ABG Hemoglobin ABG Oxyhemoglobin ABG Sodium ABG Potassium ABG Chloride ABG Glucose VBG pH Oxyhemoglobin Carboxyhemoglobin Sodium 162 H* D Potassium Chloride 125.8 H Carbon Dioxide BUN 72 H Creatinine 1.6 H Glucose 131 H POC Glucose Lactic Acid Calcium Phosphorus Magnesium 3.00 H Ferritin 2742.0 H AST ALT Ammonia Lactate Dehydrogenase Troponin T C-Reactive Protein Total Protein Albumin Triglycerides LDL Cholesterol Direct HDL Cholesterol Arterial Blood Glucose Arterial Blood Ionized Calcium Urine WBC (Auto) Urine Creatinine Vancomycin Trough Crossmatch 05/29/21 05/29/21 05/29/21 06:40 06:40 17:58 WBC 14.1 H RBC Hgb Hct MCV MCH 27 L MCHC 31 L RDW Plt Count Seg Neuts % (Manual) 85.0 H Lymphocytes % (Manual) 9.0 L Monocytes % (Manual) Nucleated RBC % 1.0 H Seg Neutrophils # Man 12.0 H Lymphocytes # (Manual) PT INR APTT D-Dimer ABG pH 7.505 H POC ABG pCO2 30.3 L POC ABG pO2 128.1 H ABG pO2 ABG HCO3 ABG O2 Saturation ABG Base Excess ABG Hemoglobin 11.9 L ABG Oxyhemoglobin ABG Sodium ABG Potassium ABG Chloride 113.0 H ABG Glucose 110 H VBG pH Oxyhemoglobin Carboxyhemoglobin Sodium 148 H D Potassium Chloride 111.3 H Carbon Dioxide 20 L BUN 45 H Creatinine Glucose POC Glucose Lactic Acid Calcium Phosphorus 2.10 L D Magnesium Ferritin AST ALT Ammonia Lactate Dehydrogenase Troponin T C-Reactive Protein Total Protein Albumin Triglycerides LDL Cholesterol Direct HDL Cholesterol Arterial Blood Glucose 110 H Arterial Blood Ionized Calcium 4.5 L Urine WBC (Auto) Urine Creatinine Vancomycin Trough Crossmatch 05/30/21 05/30/21 05/30/21 01:00 06:06 13:48 WBC RBC Hgb Hct MCV MCH MCHC RDW Plt Count Seg Neuts % (Manual) Lymphocytes % (Manual) Monocytes % (Manual) Nucleated RBC % Seg Neutrophils # Man Lymphocytes # (Manual) PT INR APTT D-Dimer ABG pH POC ABG pCO2 POC ABG pO2 ABG pO2 90.9 H ABG HCO3 ABG O2 Saturation ABG Base Excess ABG Hemoglobin 11.8 L ABG Oxyhemoglobin ABG Sodium ABG Potassium ABG Chloride ABG Glucose VBG pH Oxyhemoglobin Carboxyhemoglobin Sodium 150 H Potassium Chloride 117.6 H Carbon Dioxide BUN 40 H Creatinine Glucose POC Glucose Lactic Acid Calcium 8.3 L Phosphorus Magnesium Ferritin AST ALT Ammonia Lactate Dehydrogenase Troponin T C-Reactive Protein Total Protein Albumin Triglycerides LDL Cholesterol Direct HDL Cholesterol Arterial Blood Glucose Arterial Blood Ionized Calcium Urine WBC (Auto) 12.0 H Urine Creatinine Vancomycin Trough Crossmatch 05/30/21 05/31/21 05/31/21 22:32 02:22 02:22 WBC RBC Hgb 11.2 L Hct 34.8 L MCV MCH MCHC RDW Plt Count 127 L Seg Neuts % (Manual) 97.0 H Lymphocytes % (Manual) Monocytes % (Manual) Nucleated RBC % Seg Neutrophils # Man 10.5 H Lymphocytes # (Manual) 0.0 L PT INR APTT D-Dimer ABG pH 7.454 H POC ABG pCO2 POC ABG pO2 ABG pO2 141.8 H ABG HCO3 19.9 L ABG O2 Saturation ABG Base Excess -2.7 L ABG Hemoglobin ABG Oxyhemoglobin ABG Sodium ABG Potassium ABG Chloride ABG Glucose VBG pH Oxyhemoglobin Carboxyhemoglobin Sodium 152 H Potassium Chloride 118.9 H Carbon Dioxide 19 L BUN 48 H Creatinine 1.5 H Glucose 101 H POC Glucose Lactic Acid Calcium 8.3 L Phosphorus Magnesium Ferritin AST ALT Ammonia Lactate Dehydrogenase Troponin T C-Reactive Protein Total Protein Albumin Triglycerides LDL Cholesterol Direct HDL Cholesterol Arterial Blood Glucose Arterial Blood Ionized Calcium Urine WBC (Auto) Urine Creatinine Vancomycin Trough Crossmatch 05/31/21 05/31/21 06/01/21 11:42 21:28 07:10 WBC RBC Hgb Hct MCV MCH MCHC RDW Plt Count Seg Neuts % (Manual) Lymphocytes % (Manual) Monocytes % (Manual) Nucleated RBC % Seg Neutrophils # Man Lymphocytes # (Manual) PT INR APTT D-Dimer ABG pH POC ABG pCO2 POC ABG pO2 ABG pO2 ABG HCO3 ABG O2 Saturation ABG Base Excess ABG Hemoglobin ABG Oxyhemoglobin ABG Sodium ABG Potassium ABG Chloride ABG Glucose VBG pH Oxyhemoglobin Carboxyhemoglobin Sodium 150 H Potassium Chloride 115.7 H Carbon Dioxide BUN 47 H Creatinine Glucose 115 H POC Glucose 161 H Lactic Acid Calcium Phosphorus Magnesium 2.50 H Ferritin AST ALT Ammonia Lactate Dehydrogenase Troponin T C-Reactive Protein Total Protein Albumin Triglycerides LDL Cholesterol Direct HDL Cholesterol Arterial Blood Glucose Arterial Blood Ionized Calcium Urine WBC (Auto) Urine Creatinine Vancomycin Trough 20.2 H Crossmatch 06/01/21 06/01/21 06/01/21 07:10 07:54 10:39 WBC RBC Hgb 10.7 L Hct 33.5 L MCV MCH MCHC RDW Plt Count Seg Neuts % (Manual) 92.0 H Lymphocytes % (Manual) 4.0 L Monocytes % (Manual) Nucleated RBC % Seg Neutrophils # Man Lymphocytes # (Manual) 0.3 L PT INR APTT D-Dimer ABG pH POC ABG pCO2 POC ABG pO2 ABG pO2 ABG HCO3 ABG O2 Saturation ABG Base Excess ABG Hemoglobin ABG Oxyhemoglobin ABG Sodium ABG Potassium ABG Chloride ABG Glucose VBG pH Oxyhemoglobin Carboxyhemoglobin Sodium 152 H Potassium Chloride 117.6 H Carbon Dioxide BUN 50 H Creatinine Glucose 140 H POC Glucose 127 H Lactic Acid Calcium 8.3 L Phosphorus Magnesium Ferritin AST ALT Ammonia Lactate Dehydrogenase Troponin T C-Reactive Protein Total Protein Albumin Triglycerides LDL Cholesterol Direct HDL Cholesterol Arterial Blood Glucose Arterial Blood Ionized Calcium Urine WBC (Auto) Urine Creatinine Vancomycin Trough Crossmatch 06/01/21 06/01/21 06/01/21 11:11 16:16 21:45 WBC RBC Hgb Hct MCV MCH MCHC RDW Plt Count Seg Neuts % (Manual) Lymphocytes % (Manual) Monocytes % (Manual) Nucleated RBC % Seg Neutrophils # Man Lymphocytes # (Manual) PT INR APTT D-Dimer ABG pH POC ABG pCO2 POC ABG pO2 ABG pO2 ABG HCO3 ABG O2 Saturation ABG Base Excess ABG Hemoglobin ABG Oxyhemoglobin ABG Sodium ABG Potassium ABG Chloride ABG Glucose VBG pH Oxyhemoglobin Carboxyhemoglobin Sodium Potassium Chloride Carbon Dioxide BUN Creatinine Glucose POC Glucose 120 H 129 H 150 H Lactic Acid Calcium Phosphorus Magnesium Ferritin AST ALT Ammonia Lactate Dehydrogenase Troponin T C-Reactive Protein Total Protein Albumin Triglycerides LDL Cholesterol Direct HDL Cholesterol Arterial Blood Glucose Arterial Blood Ionized Calcium Urine WBC (Auto) Urine Creatinine Vancomycin Trough Crossmatch 06/02/21 06/02/21 06/02/21 06:53 06:53 07:52 WBC RBC Hgb 10.4 L Hct 32.4 L MCV MCH 27 L MCHC RDW Plt Count Seg Neuts % (Manual) 93.0 H Lymphocytes % (Manual) 3.0 L Monocytes % (Manual) Nucleated RBC % Seg Neutrophils # Man Lymphocytes # (Manual) 0.2 L PT INR APTT D-Dimer ABG pH POC ABG pCO2 POC ABG pO2 ABG pO2 ABG HCO3 ABG O2 Saturation ABG Base Excess ABG Hemoglobin ABG Oxyhemoglobin ABG Sodium ABG Potassium ABG Chloride ABG Glucose VBG pH Oxyhemoglobin Carboxyhemoglobin Sodium 149 H Potassium Chloride 112.6 H Carbon Dioxide BUN 54 H Creatinine Glucose 123 H POC Glucose 116 H Lactic Acid Calcium 8.2 L Phosphorus Magnesium Ferritin AST ALT Ammonia Lactate Dehydrogenase Troponin T C-Reactive Protein Total Protein Albumin Triglycerides LDL Cholesterol Direct HDL Cholesterol Arterial Blood Glucose Arterial Blood Ionized Calcium Urine WBC (Auto) Urine Creatinine Vancomycin Trough Crossmatch 06/03/21 06/03/21 06/03/21 05:57 05:57 21:23 WBC RBC Hgb 10.7 L Hct 33.0 L MCV 83 L MCH 27 L MCHC RDW Plt Count Seg Neuts % (Manual) 88.0 H Lymphocytes % (Manual) 8.0 L Monocytes % (Manual) Nucleated RBC % 2.0 H Seg Neutrophils # Man Lymphocytes # (Manual) 0.6 L PT INR APTT D-Dimer ABG pH POC ABG pCO2 POC ABG pO2 39.0 L ABG pO2 ABG HCO3 ABG O2 Saturation ABG Base Excess ABG Hemoglobin ABG Oxyhemoglobin 69.1 L ABG Sodium 134.1 L ABG Potassium ABG Chloride ABG Glucose 135 H VBG pH Oxyhemoglobin Carboxyhemoglobin Sodium Potassium Chloride Carbon Dioxide BUN 36 H Creatinine Glucose 102 H POC Glucose Lactic Acid Calcium 8.0 L Phosphorus 2.20 L D Magnesium Ferritin AST ALT Ammonia Lactate Dehydrogenase Troponin T C-Reactive Protein Total Protein Albumin Triglycerides LDL Cholesterol Direct HDL Cholesterol Arterial Blood Glucose 135 H Arterial Blood Ionized Calcium Urine WBC (Auto) Urine Creatinine Vancomycin Trough Crossmatch 06/04/21 06/04/21 06/04/21 07:04 07:04 17:42 WBC RBC Hgb 11.3 L Hct 34.9 L MCV MCH 27 L MCHC RDW Plt Count Seg Neuts % (Manual) Lymphocytes % (Manual) 5.0 L Monocytes % (Manual) Nucleated RBC % Seg Neutrophils # Man 8.4 H Lymphocytes # (Manual) 0.5 L PT INR APTT D-Dimer ABG pH POC ABG pCO2 POC ABG pO2 ABG pO2 ABG HCO3 ABG O2 Saturation ABG Base Excess ABG Hemoglobin ABG Oxyhemoglobin ABG Sodium ABG Potassium ABG Chloride ABG Glucose VBG pH Oxyhemoglobin Carboxyhemoglobin Sodium Potassium Chloride Carbon Dioxide BUN 27 H Creatinine Glucose POC Glucose 136 H Lactic Acid Calcium 8.2 L Phosphorus Magnesium Ferritin AST ALT Ammonia Lactate Dehydrogenase Troponin T C-Reactive Protein Total Protein Albumin Triglycerides LDL Cholesterol Direct HDL Cholesterol Arterial Blood Glucose Arterial Blood Ionized Calcium Urine WBC (Auto) Urine Creatinine Vancomycin Trough Crossmatch 06/05/21 06/05/21 06/05/21 05:10 12:32 15:45 WBC RBC Hgb Hct MCV MCH MCHC RDW Plt Count Seg Neuts % (Manual) Lymphocytes % (Manual) Monocytes % (Manual) Nucleated RBC % Seg Neutrophils # Man Lymphocytes # (Manual) PT INR APTT D-Dimer ABG pH POC ABG pCO2 POC ABG pO2 ABG pO2 ABG HCO3 ABG O2 Saturation ABG Base Excess ABG Hemoglobin ABG Oxyhemoglobin ABG Sodium ABG Potassium ABG Chloride ABG Glucose VBG pH Oxyhemoglobin Carboxyhemoglobin Sodium Potassium 3.5 L Chloride Carbon Dioxide BUN 35 H Creatinine Glucose 130 H POC Glucose 122 H 119 H Lactic Acid Calcium 8.2 L Phosphorus Magnesium Ferritin AST ALT Ammonia Lactate Dehydrogenase Troponin T C-Reactive Protein Total Protein Albumin Triglycerides LDL Cholesterol Direct HDL Cholesterol Arterial Blood Glucose Arterial Blood Ionized Calcium Urine WBC (Auto) Urine Creatinine Vancomycin Trough Crossmatch 06/05/21 06/05/21 06/06/21 20:06 21:27 00:04 WBC RBC Hgb Hct MCV MCH MCHC RDW Plt Count Seg Neuts % (Manual) Lymphocytes % (Manual) Monocytes % (Manual) Nucleated RBC % Seg Neutrophils # Man Lymphocytes # (Manual) PT INR APTT D-Dimer ABG pH 7.456 H POC ABG pCO2 POC ABG pO2 ABG pO2 ABG HCO3 ABG O2 Saturation ABG Base Excess ABG Hemoglobin 10.3 L ABG Oxyhemoglobin ABG Sodium ABG Potassium 3.1 L ABG Chloride ABG Glucose 125 H VBG pH Oxyhemoglobin Carboxyhemoglobin 0.3 L Sodium Potassium Chloride Carbon Dioxide BUN Creatinine Glucose POC Glucose 113 H Lactic Acid Calcium Phosphorus Magnesium Ferritin AST ALT Ammonia Lactate Dehydrogenase Troponin T C-Reactive Protein 19.60 H Total Protein Albumin Triglycerides LDL Cholesterol Direct HDL Cholesterol Arterial Blood Glucose 125 H Arterial Blood Ionized Calcium Urine WBC (Auto) Urine Creatinine Vancomycin Trough Crossmatch 06/06/21 06/06/21 06/07/21 04:35 22:37 05:54 WBC RBC Hgb Hct MCV MCH MCHC RDW Plt Count Seg Neuts % (Manual) Lymphocytes % (Manual) Monocytes % (Manual) Nucleated RBC % Seg Neutrophils # Man Lymphocytes # (Manual) PT INR APTT D-Dimer ABG pH POC ABG pCO2 POC ABG pO2 ABG pO2 ABG HCO3 ABG O2 Saturation ABG Base Excess ABG Hemoglobin ABG Oxyhemoglobin ABG Sodium ABG Potassium ABG Chloride ABG Glucose VBG pH Oxyhemoglobin Carboxyhemoglobin Sodium Potassium Chloride Carbon Dioxide BUN 43 H Creatinine Glucose POC Glucose 114 H 130 H Lactic Acid Calcium 7.6 L Phosphorus Magnesium Ferritin AST ALT Ammonia Lactate Dehydrogenase Troponin T C-Reactive Protein Total Protein Albumin Triglycerides LDL Cholesterol Direct HDL Cholesterol Arterial Blood Glucose Arterial Blood Ionized Calcium Urine WBC (Auto) Urine Creatinine Vancomycin Trough Crossmatch 06/07/21 06/07/21 06/07/21 07:32 10:03 11:36 WBC RBC 3.63 L Hgb 9.8 L Hct 30.3 L MCV 83 L MCH 27 L MCHC RDW Plt Count Seg Neuts % (Manual) Lymphocytes % (Manual) Monocytes % (Manual) Nucleated RBC % Seg Neutrophils # Man Lymphocytes # (Manual) PT INR APTT D-Dimer ABG pH POC ABG pCO2 POC ABG pO2 ABG pO2 ABG HCO3 ABG O2 Saturation ABG Base Excess ABG Hemoglobin ABG Oxyhemoglobin ABG Sodium ABG Potassium ABG Chloride ABG Glucose VBG pH Oxyhemoglobin Carboxyhemoglobin Sodium Potassium 3.2 L Chloride 108.5 H Carbon Dioxide BUN 36 H Creatinine Glucose 139 H POC Glucose 125 H Lactic Acid Calcium 8.0 L Phosphorus Magnesium Ferritin AST ALT Ammonia Lactate Dehydrogenase Troponin T C-Reactive Protein Total Protein Albumin Triglycerides LDL Cholesterol Direct HDL Cholesterol Arterial Blood Glucose Arterial Blood Ionized Calcium Urine WBC (Auto) Urine Creatinine Vancomycin Trough Crossmatch 06/07/21 06/07/21 06/08/21 17:54 22:14 07:18 WBC RBC Hgb Hct MCV MCH MCHC RDW Plt Count Seg Neuts % (Manual) Lymphocytes % (Manual) Monocytes % (Manual) Nucleated RBC % Seg Neutrophils # Man Lymphocytes # (Manual) PT INR APTT D-Dimer ABG pH POC ABG pCO2 POC ABG pO2 ABG pO2 ABG HCO3 ABG O2 Saturation ABG Base Excess ABG Hemoglobin ABG Oxyhemoglobin ABG Sodium ABG Potassium ABG Chloride ABG Glucose VBG pH Oxyhemoglobin Carboxyhemoglobin Sodium 149 H Potassium Chloride 110.2 H Carbon Dioxide BUN 31 H Creatinine Glucose 131 H POC Glucose 121 H 131 H Lactic Acid Calcium 8.1 L Phosphorus Magnesium Ferritin AST ALT Ammonia Lactate Dehydrogenase Troponin T C-Reactive Protein Total Protein Albumin Triglycerides LDL Cholesterol Direct HDL Cholesterol Arterial Blood Glucose Arterial Blood Ionized Calcium Urine WBC (Auto) Urine Creatinine Vancomycin Trough Crossmatch 06/08/21 06/08/21 06/08/21 07:45 12:07 18:02 WBC RBC Hgb Hct MCV MCH MCHC RDW Plt Count Seg Neuts % (Manual) Lymphocytes % (Manual) Monocytes % (Manual) Nucleated RBC % Seg Neutrophils # Man Lymphocytes # (Manual) PT INR APTT D-Dimer ABG pH POC ABG pCO2 POC ABG pO2 ABG pO2 ABG HCO3 ABG O2 Saturation ABG Base Excess ABG Hemoglobin ABG Oxyhemoglobin ABG Sodium ABG Potassium ABG Chloride ABG Glucose VBG pH Oxyhemoglobin Carboxyhemoglobin Sodium Potassium Chloride Carbon Dioxide BUN Creatinine Glucose POC Glucose 120 H 127 H 148 H Lactic Acid Calcium Phosphorus Magnesium Ferritin AST ALT Ammonia Lactate Dehydrogenase Troponin T C-Reactive Protein Total Protein Albumin Triglycerides LDL Cholesterol Direct HDL Cholesterol Arterial Blood Glucose Arterial Blood Ionized Calcium Urine WBC (Auto) Urine Creatinine Vancomycin Trough Crossmatch 06/09/21 06/09/21 06/09/21 05:51 05:51 11:37 WBC 3.9 L RBC 3.38 L Hgb 9.4 L Hct 28.5 L MCV MCH MCHC RDW Plt Count Seg Neuts % (Manual) Lymphocytes % (Manual) Monocytes % (Manual) Nucleated RBC % Seg Neutrophils # Man Lymphocytes # (Manual) PT INR APTT D-Dimer ABG pH POC ABG pCO2 POC ABG pO2 ABG pO2 ABG HCO3 ABG O2 Saturation ABG Base Excess ABG Hemoglobin ABG Oxyhemoglobin ABG Sodium ABG Potassium ABG Chloride ABG Glucose VBG pH Oxyhemoglobin Carboxyhemoglobin Sodium Potassium Chloride 108.4 H Carbon Dioxide BUN 32 H Creatinine Glucose 137 H POC Glucose 115 H Lactic Acid Calcium 7.5 L Phosphorus Magnesium Ferritin AST 55 H ALT Ammonia Lactate Dehydrogenase Troponin T C-Reactive Protein 4.10 H Total Protein 5.6 L Albumin 2.0 L Triglycerides LDL Cholesterol Direct HDL Cholesterol Arterial Blood Glucose Arterial Blood Ionized Calcium Urine WBC (Auto) Urine Creatinine Vancomycin Trough Crossmatch 06/09/21 06/09/21 06/10/21 17:32 22:18 01:52 WBC RBC 3.62 L Hgb 9.9 L Hct 29.8 L MCV 82 L MCH 27 L MCHC RDW Plt Count Seg Neuts % (Manual) Lymphocytes % (Manual) Monocytes % (Manual) Nucleated RBC % Seg Neutrophils # Man Lymphocytes # (Manual) PT INR APTT D-Dimer ABG pH POC ABG pCO2 POC ABG pO2 ABG pO2 ABG HCO3 ABG O2 Saturation ABG Base Excess ABG Hemoglobin ABG Oxyhemoglobin ABG Sodium ABG Potassium ABG Chloride ABG Glucose VBG pH Oxyhemoglobin Carboxyhemoglobin Sodium Potassium Chloride Carbon Dioxide BUN Creatinine Glucose POC Glucose 113 H 110 H Lactic Acid Calcium Phosphorus Magnesium Ferritin AST ALT Ammonia Lactate Dehydrogenase Troponin T C-Reactive Protein Total Protein Albumin Triglycerides LDL Cholesterol Direct HDL Cholesterol Arterial Blood Glucose Arterial Blood Ionized Calcium Urine WBC (Auto) Urine Creatinine Vancomycin Trough Crossmatch 06/10/21 06/10/21 06/10/21 01:52 16:14 22:45 WBC RBC Hgb Hct MCV MCH MCHC RDW Plt Count Seg Neuts % (Manual) Lymphocytes % (Manual) Monocytes % (Manual) Nucleated RBC % Seg Neutrophils # Man Lymphocytes # (Manual) PT INR APTT D-Dimer ABG pH POC ABG pCO2 POC ABG pO2 ABG pO2 ABG HCO3 ABG O2 Saturation ABG Base Excess ABG Hemoglobin ABG Oxyhemoglobin ABG Sodium ABG Potassium ABG Chloride ABG Glucose VBG pH Oxyhemoglobin Carboxyhemoglobin Sodium Potassium Chloride 108.2 H Carbon Dioxide BUN 32 H Creatinine 1.4 H Glucose POC Glucose 111 H 107 H Lactic Acid Calcium 7.8 L Phosphorus Magnesium Ferritin AST 55 H ALT Ammonia Lactate Dehydrogenase Troponin T C-Reactive Protein Total Protein 5.6 L Albumin 1.9 L Triglycerides LDL Cholesterol Direct HDL Cholesterol Arterial Blood Glucose Arterial Blood Ionized Calcium Urine WBC (Auto) Urine Creatinine Vancomycin Trough Crossmatch 06/11/21 06/11/21 06/11/21 05:51 05:51 05:51 WBC RBC 3.35 L Hgb 9.1 L Hct 28.1 L MCV MCH 27 L MCHC RDW Plt Count 117 L Seg Neuts % (Manual) 93.0 H Lymphocytes % (Manual) 1.0 L Monocytes % (Manual) Nucleated RBC % Seg Neutrophils # Man Lymphocytes # (Manual) 0.0 L PT INR APTT D-Dimer ABG pH POC ABG pCO2 POC ABG pO2 ABG pO2 ABG HCO3 ABG O2 Saturation ABG Base Excess ABG Hemoglobin ABG Oxyhemoglobin ABG Sodium ABG Potassium ABG Chloride ABG Glucose VBG pH Oxyhemoglobin Carboxyhemoglobin Sodium 146 H Potassium Chloride 110.9 H Carbon Dioxide BUN 40 H Creatinine Glucose 119 H POC Glucose Lactic Acid Calcium 7.8 L Phosphorus Magnesium Ferritin AST ALT Ammonia Lactate Dehydrogenase Troponin T C-Reactive Protein Total Protein Albumin Triglycerides LDL Cholesterol Direct HDL Cholesterol Arterial Blood Glucose Arterial Blood Ionized Calcium Urine WBC (Auto) Urine Creatinine Vancomycin Trough 22.6 H Crossmatch 06/11/21 06/11/21 06/11/21 08:28 11:36 15:47 WBC RBC Hgb Hct MCV MCH MCHC RDW Plt Count Seg Neuts % (Manual) Lymphocytes % (Manual) Monocytes % (Manual) Nucleated RBC % Seg Neutrophils # Man Lymphocytes # (Manual) PT INR APTT D-Dimer ABG pH POC ABG pCO2 POC ABG pO2 ABG pO2 ABG HCO3 ABG O2 Saturation ABG Base Excess ABG Hemoglobin ABG Oxyhemoglobin ABG Sodium ABG Potassium ABG Chloride ABG Glucose VBG pH Oxyhemoglobin Carboxyhemoglobin Sodium Potassium Chloride Carbon Dioxide BUN Creatinine Glucose POC Glucose 109 H 149 H 139 H Lactic Acid Calcium Phosphorus Magnesium Ferritin AST ALT Ammonia Lactate Dehydrogenase Troponin T C-Reactive Protein Total Protein Albumin Triglycerides LDL Cholesterol Direct HDL Cholesterol Arterial Blood Glucose Arterial Blood Ionized Calcium Urine WBC (Auto) Urine Creatinine Vancomycin Trough Crossmatch 06/11/21 06/12/21 06/12/21 21:42 04:00 04:00 WBC 4.0 L RBC 3.50 L Hgb 9.4 L Hct 29.9 L MCV MCH 27 L MCHC 31 L RDW 15.3 H Plt Count 126 L Seg Neuts % (Manual) 88.0 H Lymphocytes % (Manual) Monocytes % (Manual) 12.0 H Nucleated RBC % Seg Neutrophils # Man Lymphocytes # (Manual) 0.0 L PT INR APTT D-Dimer ABG pH POC ABG pCO2 POC ABG pO2 ABG pO2 ABG HCO3 ABG O2 Saturation ABG Base Excess ABG Hemoglobin ABG Oxyhemoglobin ABG Sodium ABG Potassium ABG Chloride ABG Glucose VBG pH Oxyhemoglobin Carboxyhemoglobin Sodium 149 H Potassium Chloride 114.1 H Carbon Dioxide BUN 37 H Creatinine Glucose 137 H POC Glucose 124 H Lactic Acid Calcium 8.0 L Phosphorus Magnesium Ferritin AST ALT Ammonia Lactate Dehydrogenase Troponin T C-Reactive Protein Total Protein Albumin Triglycerides LDL Cholesterol Direct HDL Cholesterol Arterial Blood Glucose Arterial Blood Ionized Calcium Urine WBC (Auto) Urine Creatinine Vancomycin Trough Crossmatch 06/12/21 06/13/21 06/13/21 06:37 00:14 06:05 WBC 4.3 L RBC 3.39 L Hgb 9.2 L Hct 28.6 L MCV MCH 27 L MCHC RDW 15.3 H Plt Count 107 L Seg Neuts % (Manual) 77.0 H Lymphocytes % (Manual) 1.0 L Monocytes % (Manual) Nucleated RBC % 1.0 H Seg Neutrophils # Man Lymphocytes # (Manual) 0.0 L PT INR APTT D-Dimer ABG pH POC ABG pCO2 POC ABG pO2 ABG pO2 ABG HCO3 ABG O2 Saturation ABG Base Excess ABG Hemoglobin ABG Oxyhemoglobin ABG Sodium ABG Potassium ABG Chloride ABG Glucose VBG pH Oxyhemoglobin Carboxyhemoglobin Sodium Potassium Chloride Carbon Dioxide BUN Creatinine Glucose POC Glucose 128 H 149 H Lactic Acid Calcium Phosphorus Magnesium Ferritin AST ALT Ammonia Lactate Dehydrogenase Troponin T C-Reactive Protein Total Protein Albumin Triglycerides LDL Cholesterol Direct HDL Cholesterol Arterial Blood Glucose Arterial Blood Ionized Calcium Urine WBC (Auto) Urine Creatinine Vancomycin Trough Crossmatch 06/13/21 06/13/21 06/14/21 06:05 11:51 04:29 WBC 4.2 L RBC 3.21 L Hgb 8.7 L Hct 26.7 L MCV 83 L MCH 27 L MCHC RDW 15.3 H Plt Count 87 L Seg Neuts % (Manual) 96 H Lymphocytes % (Manual) 2 L Monocytes % (Manual) Nucleated RBC % Seg Neutrophils # Man Lymphocytes # (Manual) 0.0 L PT INR APTT D-Dimer ABG pH POC ABG pCO2 POC ABG pO2 48.3 L ABG pO2 ABG HCO3 ABG O2 Saturation ABG Base Excess ABG Hemoglobin 10.7 L ABG Oxyhemoglobin 84.1 L ABG Sodium 145.5 H ABG Potassium ABG Chloride 116.0 H ABG Glucose VBG pH Oxyhemoglobin Carboxyhemoglobin Sodium 146 H Potassium 3.5 L Chloride 112.3 H Carbon Dioxide BUN 38 H Creatinine Glucose 112 H POC Glucose Lactic Acid Calcium 8.1 L Phosphorus Magnesium Ferritin AST ALT Ammonia Lactate Dehydrogenase Troponin T C-Reactive Protein Total Protein Albumin Triglycerides LDL Cholesterol Direct HDL Cholesterol Arterial Blood Glucose Arterial Blood Ionized Calcium Urine WBC (Auto) Urine Creatinine Vancomycin Trough Crossmatch 06/14/21 06/14/21 06/14/21 04:29 06:17 23:51 WBC RBC Hgb Hct MCV MCH MCHC RDW Plt Count Seg Neuts % (Manual) Lymphocytes % (Manual) Monocytes % (Manual) Nucleated RBC % Seg Neutrophils # Man Lymphocytes # (Manual) PT INR APTT D-Dimer ABG pH POC ABG pCO2 POC ABG pO2 ABG pO2 ABG HCO3 ABG O2 Saturation ABG Base Excess ABG Hemoglobin ABG Oxyhemoglobin ABG Sodium ABG Potassium ABG Chloride ABG Glucose VBG pH Oxyhemoglobin Carboxyhemoglobin Sodium 148 H Potassium Chloride 115.3 H Carbon Dioxide BUN 40 H Creatinine Glucose 124 H POC Glucose 106 H 135 H Lactic Acid Calcium 8.2 L Phosphorus Magnesium Ferritin AST ALT Ammonia Lactate Dehydrogenase Troponin T C-Reactive Protein Total Protein Albumin Triglycerides LDL Cholesterol Direct HDL Cholesterol Arterial Blood Glucose Arterial Blood Ionized Calcium Urine WBC (Auto) Urine Creatinine Vancomycin Trough Crossmatch 06/15/21 06/15/21 06/15/21 05:23 05:53 05:53 WBC 3.8 L RBC 2.94 L Hgb 8.0 L Hct 24.0 L MCV 81 L MCH 27 L MCHC RDW 15.6 H Plt Count 87 L Seg Neuts % (Manual) 95.0 H Lymphocytes % (Manual) 1.0 L Monocytes % (Manual) Nucleated RBC % 1.0 H Seg Neutrophils # Man Lymphocytes # (Manual) 0.0 L PT INR APTT D-Dimer ABG pH POC ABG pCO2 POC ABG pO2 ABG pO2 ABG HCO3 ABG O2 Saturation ABG Base Excess ABG Hemoglobin ABG Oxyhemoglobin ABG Sodium ABG Potassium ABG Chloride ABG Glucose VBG pH Oxyhemoglobin Carboxyhemoglobin Sodium Potassium Chloride 110.5 H Carbon Dioxide BUN 43 H Creatinine Glucose 143 H POC Glucose 134 H Lactic Acid Calcium 8.1 L Phosphorus 2.10 L D Magnesium Ferritin AST ALT Ammonia Lactate Dehydrogenase Troponin T C-Reactive Protein Total Protein Albumin Triglycerides LDL Cholesterol Direct HDL Cholesterol Arterial Blood Glucose Arterial Blood Ionized Calcium Urine WBC (Auto) Urine Creatinine Vancomycin Trough Crossmatch 06/16/21 06/16/21 06/16/21 05:22 05:59 05:59 WBC 3.4 L RBC 3.34 L Hgb 9.0 L Hct 27.9 L MCV MCH 27 L MCHC RDW 15.5 H Plt Count 72 L Seg Neuts % (Manual) 97.0 H Lymphocytes % (Manual) Monocytes % (Manual) Nucleated RBC % Seg Neutrophils # Man Lymphocytes # (Manual) 0.0 L PT INR APTT D-Dimer ABG pH POC ABG pCO2 POC ABG pO2 ABG pO2 ABG HCO3 ABG O2 Saturation ABG Base Excess ABG Hemoglobin ABG Oxyhemoglobin ABG Sodium ABG Potassium ABG Chloride ABG Glucose VBG pH Oxyhemoglobin Carboxyhemoglobin Sodium Potassium Chloride 108.8 H Carbon Dioxide BUN 53 H Creatinine 1.4 H Glucose 160 H POC Glucose 141 H Lactic Acid Calcium 8.1 L Phosphorus Magnesium Ferritin AST ALT Ammonia Lactate Dehydrogenase Troponin T C-Reactive Protein Total Protein Albumin Triglycerides LDL Cholesterol Direct HDL Cholesterol Arterial Blood Glucose Arterial Blood Ionized Calcium Urine WBC (Auto) Urine Creatinine Vancomycin Trough Crossmatch 06/16/21 06/16/21 06/17/21 11:31 17:08 06:25 WBC 4.4 L RBC 3.14 L Hgb 8.5 L Hct 25.7 L MCV 82 L MCH 27 L MCHC RDW 15.7 H Plt Count 64 L Seg Neuts % (Manual) 95.0 H Lymphocytes % (Manual) Monocytes % (Manual) Nucleated RBC % Seg Neutrophils # Man Lymphocytes # (Manual) 0.0 L PT INR APTT D-Dimer ABG pH POC ABG pCO2 POC ABG pO2 ABG pO2 ABG HCO3 ABG O2 Saturation ABG Base Excess ABG Hemoglobin ABG Oxyhemoglobin ABG Sodium ABG Potassium ABG Chloride ABG Glucose VBG pH Oxyhemoglobin Carboxyhemoglobin Sodium Potassium Chloride Carbon Dioxide BUN Creatinine Glucose POC Glucose 129 H 136 H Lactic Acid Calcium Phosphorus Magnesium Ferritin AST ALT Ammonia Lactate Dehydrogenase Troponin T C-Reactive Protein Total Protein Albumin Triglycerides LDL Cholesterol Direct HDL Cholesterol Arterial Blood Glucose Arterial Blood Ionized Calcium Urine WBC (Auto) Urine Creatinine Vancomycin Trough Crossmatch 06/17/21 06/17/21 06/17/21 06:25 18:19 18:38 WBC RBC Hgb Hct MCV MCH MCHC RDW Plt Count Seg Neuts % (Manual) Lymphocytes % (Manual) Monocytes % (Manual) Nucleated RBC % Seg Neutrophils # Man Lymphocytes # (Manual) PT INR APTT D-Dimer ABG pH 7.184 L POC ABG pCO2 65.8 H POC ABG pO2 130.5 H ABG pO2 ABG HCO3 ABG O2 Saturation ABG Base Excess ABG Hemoglobin 10.2 L ABG Oxyhemoglobin ABG Sodium ABG Potassium ABG Chloride 108.0 H ABG Glucose 229 H VBG pH Oxyhemoglobin Carboxyhemoglobin Sodium Potassium Chloride Carbon Dioxide BUN 62 H Creatinine Glucose 135 H POC Glucose 206 H Lactic Acid Calcium 7.8 L Phosphorus Magnesium Ferritin AST ALT Ammonia Lactate Dehydrogenase Troponin T C-Reactive Protein Total Protein Albumin Triglycerides LDL Cholesterol Direct HDL Cholesterol Arterial Blood Glucose 229 H Arterial Blood Ionized Calcium Urine WBC (Auto) Urine Creatinine Vancomycin Trough Crossmatch 06/18/21 06/18/21 06/18/21 00:29 05:15 10:56 WBC RBC Hgb Hct MCV MCH MCHC RDW Plt Count Seg Neuts % (Manual) Lymphocytes % (Manual) Monocytes % (Manual) Nucleated RBC % Seg Neutrophils # Man Lymphocytes # (Manual) PT INR APTT D-Dimer ABG pH POC ABG pCO2 POC ABG pO2 ABG pO2 ABG HCO3 ABG O2 Saturation ABG Base Excess ABG Hemoglobin ABG Oxyhemoglobin ABG Sodium ABG Potassium ABG Chloride ABG Glucose VBG pH Oxyhemoglobin Carboxyhemoglobin Sodium Potassium Chloride Carbon Dioxide BUN Creatinine Glucose POC Glucose 142 H 152 H Lactic Acid Calcium Phosphorus 5.60 H D Magnesium Ferritin AST ALT Ammonia Lactate Dehydrogenase Troponin T C-Reactive Protein Total Protein Albumin Triglycerides LDL Cholesterol Direct HDL Cholesterol Arterial Blood Glucose Arterial Blood Ionized Calcium Urine WBC (Auto) Urine Creatinine Vancomycin Trough Crossmatch 06/18/21 06/18/21 06/18/21 15:02 15:02 15:02 WBC 4.4 L RBC 3.39 L Hgb 9.7 L Hct 28.4 L MCV MCH MCHC RDW 16.3 H Plt Count 65 L Seg Neuts % (Manual) Lymphocytes % (Manual) Monocytes % (Manual) Nucleated RBC % Seg Neutrophils # Man Lymphocytes # (Manual) PT 15.6 H INR APTT 41.2 H D-Dimer ABG pH POC ABG pCO2 POC ABG pO2 ABG pO2 ABG HCO3 ABG O2 Saturation ABG Base Excess ABG Hemoglobin ABG Oxyhemoglobin ABG Sodium ABG Potassium ABG Chloride ABG Glucose VBG pH Oxyhemoglobin Carboxyhemoglobin Sodium Potassium Chloride Carbon Dioxide BUN Creatinine 2.0 H Glucose POC Glucose Lactic Acid Calcium Phosphorus Magnesium Ferritin AST ALT Ammonia Lactate Dehydrogenase Troponin T C-Reactive Protein Total Protein Albumin Triglycerides LDL Cholesterol Direct HDL Cholesterol Arterial Blood Glucose Arterial Blood Ionized Calcium Urine WBC (Auto) Urine Creatinine Vancomycin Trough Crossmatch 06/18/21 06/18/21 06/18/21 Unknown Unknown Unknown WBC 4.0 L RBC 2.72 L Hgb 8.0 L Hct 24.0 L MCV MCH MCHC RDW 17.2 H Plt Count 60 L Seg Neuts % (Manual) Lymphocytes % (Manual) Monocytes % (Manual) Nucleated RBC % Seg Neutrophils # Man Lymphocytes # (Manual) PT INR APTT D-Dimer ABG pH POC ABG pCO2 POC ABG pO2 ABG pO2 ABG HCO3 ABG O2 Saturation ABG Base Excess ABG Hemoglobin ABG Oxyhemoglobin ABG Sodium ABG Potassium ABG Chloride ABG Glucose VBG pH Oxyhemoglobin Carboxyhemoglobin Sodium 134 L D Potassium 6.0 H D Chloride Carbon Dioxide BUN 80 H Creatinine 1.8 H Glucose 395 H POC Glucose Lactic Acid Calcium 6.9 L Phosphorus Magnesium Ferritin AST < 5 L ALT < 5 L Ammonia Lactate Dehydrogenase Troponin T C-Reactive Protein Total Protein 4.9 L Albumin 1.4 L Triglycerides LDL Cholesterol Direct HDL Cholesterol Arterial Blood Glucose Arterial Blood Ionized Calcium Urine WBC (Auto) 10.0 H Urine Creatinine Vancomycin Trough Crossmatch 06/19/21 06/19/21 06/19/21 02:41 04:53 05:37 WBC RBC Hgb Hct MCV MCH MCHC RDW Plt Count Seg Neuts % (Manual) Lymphocytes % (Manual) Monocytes % (Manual) Nucleated RBC % Seg Neutrophils # Man Lymphocytes # (Manual) PT INR APTT D-Dimer ABG pH 7.270 L POC ABG pCO2 49.0 H POC ABG pO2 ABG pO2 ABG HCO3 ABG O2 Saturation ABG Base Excess ABG Hemoglobin 8.8 L ABG Oxyhemoglobin ABG Sodium ABG Potassium ABG Chloride 111.0 H ABG Glucose 110 H VBG pH Oxyhemoglobin Carboxyhemoglobin Sodium Potassium Chloride Carbon Dioxide BUN 92 H Creatinine 3.2 H D Glucose 123 H POC Glucose 114 H Lactic Acid Calcium 7.4 L Phosphorus Magnesium Ferritin AST ALT Ammonia Lactate Dehydrogenase Troponin T C-Reactive Protein Total Protein Albumin Triglycerides LDL Cholesterol Direct HDL Cholesterol Arterial Blood Glucose 110 H Arterial Blood Ionized Calcium Urine WBC (Auto) Urine Creatinine Vancomycin Trough Crossmatch 06/19/21 06/19/21 06/19/21 08:55 09:37 09:41 WBC RBC 2.91 L Hgb 7.9 L Hct 24.4 L MCV MCH 27 L MCHC RDW 16.5 H Plt Count 64 L Seg Neuts % (Manual) Lymphocytes % (Manual) Monocytes % (Manual) Nucleated RBC % Seg Neutrophils # Man Lymphocytes # (Manual) PT 19.2 H INR 1.46 H APTT 54.3 H D-Dimer ABG pH POC ABG pCO2 POC ABG pO2 ABG pO2 ABG HCO3 ABG O2 Saturation ABG Base Excess ABG Hemoglobin ABG Oxyhemoglobin ABG Sodium ABG Potassium ABG Chloride ABG Glucose VBG pH Oxyhemoglobin Carboxyhemoglobin Sodium 146 H Potassium Chloride Carbon Dioxide BUN Creatinine 3.5 H Glucose POC Glucose Lactic Acid Calcium Phosphorus Magnesium Ferritin AST ALT Ammonia Lactate Dehydrogenase Troponin T C-Reactive Protein Total Protein Albumin Triglycerides LDL Cholesterol Direct HDL Cholesterol Arterial Blood Glucose Arterial Blood Ionized Calcium Urine WBC (Auto) Urine Creatinine Vancomycin Trough Crossmatch 06/19/21 06/19/21 06/19/21 11:14 12:19 16:15 WBC RBC Hgb Hct MCV MCH MCHC RDW Plt Count Seg Neuts % (Manual) Lymphocytes % (Manual) Monocytes % (Manual) Nucleated RBC % Seg Neutrophils # Man Lymphocytes # (Manual) PT INR APTT D-Dimer ABG pH POC ABG pCO2 POC ABG pO2 ABG pO2 ABG HCO3 ABG O2 Saturation ABG Base Excess ABG Hemoglobin ABG Oxyhemoglobin ABG Sodium ABG Potassium ABG Chloride ABG Glucose VBG pH Oxyhemoglobin Carboxyhemoglobin Sodium Potassium Chloride Carbon Dioxide BUN Creatinine Glucose POC Glucose Lactic Acid Calcium Phosphorus Magnesium Ferritin AST ALT Ammonia Lactate Dehydrogenase Troponin T 0.109 H* C-Reactive Protein 11.50 H Total Protein Albumin Triglycerides 295 H LDL Cholesterol Direct 24 L HDL Cholesterol 17 L Arterial Blood Glucose Arterial Blood Ionized Calcium Urine WBC (Auto) Urine Creatinine 49.9 H Vancomycin Trough Crossmatch 06/19/21 06/19/21 06/20/21 18:05 22:40 05:00 WBC 4.1 L RBC 2.66 L Hgb 7.3 L Hct 22.5 L MCV MCH MCHC RDW 16.9 H Plt Count 60 L Seg Neuts % (Manual) Lymphocytes % (Manual) Monocytes % (Manual) Nucleated RBC % Seg Neutrophils # Man Lymphocytes # (Manual) PT INR APTT D-Dimer ABG pH POC ABG pCO2 POC ABG pO2 ABG pO2 ABG HCO3 ABG O2 Saturation ABG Base Excess ABG Hemoglobin ABG Oxyhemoglobin ABG Sodium ABG Potassium ABG Chloride ABG Glucose VBG pH Oxyhemoglobin Carboxyhemoglobin Sodium Potassium Chloride Carbon Dioxide BUN Creatinine Glucose POC Glucose 131 H 121 H Lactic Acid Calcium Phosphorus Magnesium Ferritin AST ALT Ammonia Lactate Dehydrogenase Troponin T C-Reactive Protein Total Protein Albumin Triglycerides LDL Cholesterol Direct HDL Cholesterol Arterial Blood Glucose Arterial Blood Ionized Calcium Urine WBC (Auto) Urine Creatinine Vancomycin Trough Crossmatch 06/20/21 06/20/21 06/20/21 05:00 05:00 05:17 WBC RBC Hgb Hct MCV MCH MCHC RDW Plt Count Seg Neuts % (Manual) Lymphocytes % (Manual) Monocytes % (Manual) Nucleated RBC % Seg Neutrophils # Man Lymphocytes # (Manual) PT INR APTT D-Dimer ABG pH POC ABG pCO2 POC ABG pO2 ABG pO2 ABG HCO3 ABG O2 Saturation ABG Base Excess ABG Hemoglobin ABG Oxyhemoglobin ABG Sodium ABG Potassium ABG Chloride ABG Glucose VBG pH Oxyhemoglobin Carboxyhemoglobin Sodium Potassium Chloride 111.6 H Carbon Dioxide 20 L BUN 108 H Creatinine 4.3 H Glucose 152 H POC Glucose 137 H Lactic Acid Calcium 7.1 L Phosphorus Magnesium Ferritin AST ALT Ammonia Lactate Dehydrogenase Troponin T 0.105 H* C-Reactive Protein Total Protein Albumin Triglycerides LDL Cholesterol Direct HDL Cholesterol Arterial Blood Glucose Arterial Blood Ionized Calcium Urine WBC (Auto) Urine Creatinine Vancomycin Trough Crossmatch 06/20/21 06/20/21 06/20/21 11:40 12:35 13:26 WBC RBC Hgb Hct MCV MCH MCHC RDW Plt Count Seg Neuts % (Manual) Lymphocytes % (Manual) Monocytes % (Manual) Nucleated RBC % Seg Neutrophils # Man Lymphocytes # (Manual) PT INR APTT D-Dimer ABG pH 6.994 L POC ABG pCO2 70.2 H POC ABG pO2 ABG pO2 ABG HCO3 ABG O2 Saturation ABG Base Excess ABG Hemoglobin 8.1 L ABG Oxyhemoglobin ABG Sodium ABG Potassium ABG Chloride 111.0 H ABG Glucose 207 H VBG pH Oxyhemoglobin Carboxyhemoglobin Sodium Potassium Chloride Carbon Dioxide BUN Creatinine Glucose POC Glucose 186 H Lactic Acid Calcium Phosphorus Magnesium Ferritin AST ALT Ammonia Lactate Dehydrogenase Troponin T C-Reactive Protein Total Protein Albumin Triglycerides LDL Cholesterol Direct HDL Cholesterol Arterial Blood Glucose 207 H Arterial Blood Ionized Calcium Urine WBC (Auto) 46.0 H Urine Creatinine Vancomycin Trough Crossmatch 06/20/21 06/20/21 06/20/21 13:54 13:54 17:38 WBC RBC 2.26 L Hgb 6.1 L Hct 19.6 L* MCV MCH 27 L MCHC RDW 17.6 H Plt Count 65 L Seg Neuts % (Manual) Lymphocytes % (Manual) Monocytes % (Manual) Nucleated RBC % Seg Neutrophils # Man Lymphocytes # (Manual) PT INR APTT D-Dimer ABG pH POC ABG pCO2 POC ABG pO2 ABG pO2 ABG HCO3 ABG O2 Saturation ABG Base Excess ABG Hemoglobin ABG Oxyhemoglobin ABG Sodium ABG Potassium ABG Chloride ABG Glucose VBG pH Oxyhemoglobin Carboxyhemoglobin Sodium 147 H Potassium 3.0 L D Chloride Carbon Dioxide 33 H D BUN 90 H Creatinine 3.3 H Glucose 771 H* POC Glucose 198 H Lactic Acid Calcium 5.3 L* D Phosphorus Magnesium Ferritin AST 41 H ALT Ammonia Lactate Dehydrogenase Troponin T C-Reactive Protein Total Protein 3.5 L D Albumin 1.0 L Triglycerides LDL Cholesterol Direct HDL Cholesterol Arterial Blood Glucose Arterial Blood Ionized Calcium Urine WBC (Auto) Urine Creatinine Vancomycin Trough Crossmatch 06/20/21 06/20/21 06/20/21 18:00 18:09 22:38 WBC RBC Hgb Hct MCV MCH MCHC RDW Plt Count Seg Neuts % (Manual) Lymphocytes % (Manual) Monocytes % (Manual) Nucleated RBC % Seg Neutrophils # Man Lymphocytes # (Manual) PT INR APTT D-Dimer ABG pH 7.189 L* POC ABG pCO2 POC ABG pO2 ABG pO2 209.0 H ABG HCO3 26.1 H ABG O2 Saturation 99.1 H ABG Base Excess -2.3 L ABG Hemoglobin 7.4 L ABG Oxyhemoglobin ABG Sodium ABG Potassium ABG Chloride ABG Glucose VBG pH Oxyhemoglobin Carboxyhemoglobin Sodium Potassium Chloride Carbon Dioxide BUN Creatinine Glucose POC Glucose 151 H Lactic Acid Calcium Phosphorus Magnesium Ferritin AST ALT Ammonia Lactate Dehydrogenase Troponin T C-Reactive Protein Total Protein Albumin Triglycerides LDL Cholesterol Direct HDL Cholesterol Arterial Blood Glucose Arterial Blood Ionized Calcium Urine WBC (Auto) Urine Creatinine Vancomycin Trough Crossmatch See Detail 06/20/21 06/21/21 06/21/21 23:12 04:21 05:36 WBC RBC Hgb Hct MCV MCH MCHC RDW Plt Count Seg Neuts % (Manual) Lymphocytes % (Manual) Monocytes % (Manual) Nucleated RBC % Seg Neutrophils # Man Lymphocytes # (Manual) PT INR APTT D-Dimer ABG pH 7.31 L POC ABG pCO2 55.4 H POC ABG pO2 156.5 H ABG pO2 ABG HCO3 ABG O2 Saturation ABG Base Excess ABG Hemoglobin 9.0 L ABG Oxyhemoglobin ABG Sodium ABG Potassium 3.3 L ABG Chloride ABG Glucose VBG pH Oxyhemoglobin Carboxyhemoglobin Sodium Potassium Chloride Carbon Dioxide BUN Creatinine Glucose POC Glucose 184 H 128 H Lactic Acid Calcium Phosphorus Magnesium Ferritin AST ALT Ammonia Lactate Dehydrogenase Troponin T C-Reactive Protein Total Protein Albumin Triglycerides LDL Cholesterol Direct HDL Cholesterol Arterial Blood Glucose Arterial Blood Ionized Calcium Urine WBC (Auto) Urine Creatinine Vancomycin Trough Crossmatch 06/21/21 06/21/21 06/21/21 07:45 07:45 07:45 WBC 3.3 L RBC 3.08 L Hgb 8.7 L Hct 25.6 L D MCV 83 L MCH MCHC RDW 16.2 H Plt Count 49 L Seg Neuts % (Manual) Lymphocytes % (Manual) Monocytes % (Manual) Nucleated RBC % Seg Neutrophils # Man Lymphocytes # (Manual) PT INR APTT D-Dimer ABG pH POC ABG pCO2 POC ABG pO2 ABG pO2 ABG HCO3 ABG O2 Saturation ABG Base Excess ABG Hemoglobin ABG Oxyhemoglobin ABG Sodium ABG Potassium ABG Chloride ABG Glucose VBG pH Oxyhemoglobin Carboxyhemoglobin Sodium Potassium 3.5 L 3.5 L Chloride 108.0 H 107.4 H Carbon Dioxide BUN 86 H 84 H Creatinine 3.5 H 3.4 H Glucose 157 H 158 H POC Glucose Lactic Acid Calcium 7.4 L D 7.6 L Phosphorus Magnesium Ferritin AST 51 H ALT Ammonia Lactate Dehydrogenase Troponin T C-Reactive Protein Total Protein 3.9 L Albumin 1.3 L Triglycerides LDL Cholesterol Direct HDL Cholesterol Arterial Blood Glucose Arterial Blood Ionized Calcium Urine WBC (Auto) Urine Creatinine Vancomycin Trough Crossmatch 06/21/21 06/21/21 06/21/21 11:46 17:28 23:46 WBC RBC Hgb Hct MCV MCH MCHC RDW Plt Count Seg Neuts % (Manual) Lymphocytes % (Manual) Monocytes % (Manual) Nucleated RBC % Seg Neutrophils # Man Lymphocytes # (Manual) PT INR APTT D-Dimer ABG pH POC ABG pCO2 POC ABG pO2 ABG pO2 ABG HCO3 ABG O2 Saturation ABG Base Excess ABG Hemoglobin ABG Oxyhemoglobin ABG Sodium ABG Potassium ABG Chloride ABG Glucose VBG pH Oxyhemoglobin Carboxyhemoglobin Sodium Potassium Chloride Carbon Dioxide BUN Creatinine Glucose POC Glucose 130 H 111 H 109 H Lactic Acid Calcium Phosphorus Magnesium Ferritin AST ALT Ammonia Lactate Dehydrogenase Troponin T C-Reactive Protein Total Protein Albumin Triglycerides LDL Cholesterol Direct HDL Cholesterol Arterial Blood Glucose Arterial Blood Ionized Calcium Urine WBC (Auto) Urine Creatinine Vancomycin Trough Crossmatch 06/22/21 06/22/21 06/22/21 04:57 04:57 09:42 WBC 2.8 L RBC 2.86 L Hgb 8.2 L Hct 24.1 L MCV MCH MCHC RDW 16.2 H Plt Count 27 L Seg Neuts % (Manual) Lymphocytes % (Manual) Monocytes % (Manual) Nucleated RBC % Seg Neutrophils # Man Lymphocytes # (Manual) PT INR APTT D-Dimer ABG pH 7.249 L POC ABG pCO2 62.9 H POC ABG pO2 74.4 L ABG pO2 ABG HCO3 ABG O2 Saturation ABG Base Excess ABG Hemoglobin 8.4 L ABG Oxyhemoglobin 92.3 L ABG Sodium 134.4 L ABG Potassium 3.2 L ABG Chloride ABG Glucose 116 H VBG pH Oxyhemoglobin Carboxyhemoglobin Sodium 136 L D Potassium Chloride Carbon Dioxide BUN 61 H Creatinine 3.2 H Glucose 115 H POC Glucose Lactic Acid Calcium 7.4 L Phosphorus Magnesium Ferritin AST ALT Ammonia Lactate Dehydrogenase Troponin T C-Reactive Protein Total Protein Albumin Triglycerides LDL Cholesterol Direct HDL Cholesterol Arterial Blood Glucose 116 H Arterial Blood Ionized Calcium Urine WBC (Auto) Urine Creatinine Vancomycin Trough Crossmatch 06/22/21 06/23/21 06/23/21 11:03 04:40 04:40 WBC 2.5 L RBC 2.74 L Hgb 7.9 L Hct 23.1 L MCV MCH MCHC RDW 16.5 H Plt Count 28 L Seg Neuts % (Manual) Lymphocytes % (Manual) Monocytes % (Manual) Nucleated RBC % Seg Neutrophils # Man Lymphocytes # (Manual) PT INR APTT D-Dimer ABG pH POC ABG pCO2 POC ABG pO2 ABG pO2 ABG HCO3 ABG O2 Saturation ABG Base Excess ABG Hemoglobin ABG Oxyhemoglobin ABG Sodium ABG Potassium ABG Chloride ABG Glucose VBG pH Oxyhemoglobin Carboxyhemoglobin Sodium Potassium Chloride Carbon Dioxide BUN 77 H Creatinine 4.1 H Glucose POC Glucose 106 H Lactic Acid Calcium 7.3 L Phosphorus Magnesium Ferritin AST ALT Ammonia Lactate Dehydrogenase Troponin T C-Reactive Protein Total Protein Albumin Triglycerides LDL Cholesterol Direct HDL Cholesterol Arterial Blood Glucose Arterial Blood Ionized Calcium Urine WBC (Auto) Urine Creatinine Vancomycin Trough Crossmatch 06/23/21 06/23/21 06/23/21 04:40 12:25 17:57 WBC RBC Hgb Hct MCV MCH MCHC RDW Plt Count Seg Neuts % (Manual) Lymphocytes % (Manual) Monocytes % (Manual) Nucleated RBC % Seg Neutrophils # Man Lymphocytes # (Manual) PT INR APTT D-Dimer ABG pH 7.204 L POC ABG pCO2 63.9 H POC ABG pO2 68.2 L ABG pO2 ABG HCO3 ABG O2 Saturation ABG Base Excess ABG Hemoglobin 7.8 L ABG Oxyhemoglobin 88.8 L ABG Sodium 132.0 L ABG Potassium ABG Chloride ABG Glucose 100 H VBG pH Oxyhemoglobin Carboxyhemoglobin Sodium Potassium Chloride Carbon Dioxide BUN Creatinine Glucose POC Glucose 120 H 111 H Lactic Acid Calcium Phosphorus Magnesium Ferritin AST ALT Ammonia Lactate Dehydrogenase Troponin T C-Reactive Protein Total Protein Albumin Triglycerides LDL Cholesterol Direct HDL Cholesterol Arterial Blood Glucose 100 H Arterial Blood Ionized Calcium Urine WBC (Auto) Urine Creatinine Vancomycin Trough Crossmatch 06/24/21 06/24/21 06/24/21 04:00 05:00 05:00 WBC 1.9 L* RBC 2.73 L Hgb 7.8 L Hct 22.9 L MCV MCH MCHC RDW 16.6 H Plt Count 19 L* Seg Neuts % (Manual) Lymphocytes % (Manual) Monocytes % (Manual) Nucleated RBC % Seg Neutrophils # Man Lymphocytes # (Manual) PT INR APTT D-Dimer ABG pH 7.238 L POC ABG pCO2 53.8 H POC ABG pO2 53.1 L ABG pO2 ABG HCO3 ABG O2 Saturation ABG Base Excess ABG Hemoglobin 7.7 L ABG Oxyhemoglobin 83.8 L ABG Sodium 130.5 L ABG Potassium ABG Chloride ABG Glucose VBG pH Oxyhemoglobin Carboxyhemoglobin Sodium 134 L Potassium 3.3 L Chloride Carbon Dioxide BUN 82 H Creatinine 4.3 H Glucose 73 L POC Glucose Lactic Acid Calcium 7.2 L Phosphorus Magnesium Ferritin AST ALT Ammonia Lactate Dehydrogenase Troponin T C-Reactive Protein Total Protein Albumin Triglycerides 557 H LDL Cholesterol Direct HDL Cholesterol Arterial Blood Glucose Arterial Blood Ionized Calcium Urine WBC (Auto) Urine Creatinine Vancomycin Trough Crossmatch 06/24/21 06/24/21 06/24/21 05:00 05:16 12:28 WBC RBC Hgb Hct MCV MCH MCHC RDW Plt Count Seg Neuts % (Manual) Lymphocytes % (Manual) Monocytes % (Manual) Nucleated RBC % Seg Neutrophils # Man Lymphocytes # (Manual) PT INR APTT D-Dimer ABG pH POC ABG pCO2 POC ABG pO2 ABG pO2 ABG HCO3 ABG O2 Saturation ABG Base Excess ABG Hemoglobin ABG Oxyhemoglobin ABG Sodium ABG Potassium ABG Chloride ABG Glucose VBG pH Oxyhemoglobin Carboxyhemoglobin Sodium Potassium Chloride Carbon Dioxide BUN Creatinine Glucose POC Glucose 61 L 68 L Lactic Acid Calcium Phosphorus 5.40 H Magnesium 1.60 L Ferritin AST ALT Ammonia Lactate Dehydrogenase Troponin T C-Reactive Protein Total Protein Albumin Triglycerides LDL Cholesterol Direct HDL Cholesterol Arterial Blood Glucose Arterial Blood Ionized Calcium Urine WBC (Auto) Urine Creatinine Vancomycin Trough Crossmatch 06/24/21 06/25/21 06/25/21 23:05 04:50 05:08 WBC RBC Hgb Hct MCV MCH MCHC RDW Plt Count Seg Neuts % (Manual) Lymphocytes % (Manual) Monocytes % (Manual) Nucleated RBC % Seg Neutrophils # Man Lymphocytes # (Manual) PT INR APTT D-Dimer ABG pH 6.989 L* POC ABG pCO2 POC ABG pO2 ABG pO2 64.2 L ABG HCO3 19.8 L ABG O2 Saturation 83 L ABG Base Excess -12.0 L ABG Hemoglobin 9.8 L ABG Oxyhemoglobin ABG Sodium ABG Potassium ABG Chloride ABG Glucose VBG pH Oxyhemoglobin 80.8 L Carboxyhemoglobin Sodium Potassium Chloride Carbon Dioxide BUN Creatinine Glucose POC Glucose 69 L 62 L Lactic Acid Calcium Phosphorus Magnesium Ferritin AST ALT Ammonia Lactate Dehydrogenase Troponin T C-Reactive Protein Total Protein Albumin Triglycerides LDL Cholesterol Direct HDL Cholesterol Arterial Blood Glucose Arterial Blood Ionized Calcium Urine WBC (Auto) Urine Creatinine Vancomycin Trough Crossmatch 06/25/21 06/25/21 06/25/21 05:46 08:46 10:20 WBC RBC Hgb Hct MCV MCH MCHC RDW Plt Count Seg Neuts % (Manual) Lymphocytes % (Manual) Monocytes % (Manual) Nucleated RBC % Seg Neutrophils # Man Lymphocytes # (Manual) PT INR APTT D-Dimer ABG pH POC ABG pCO2 POC ABG pO2 ABG pO2 71.0 L ABG HCO3 ABG O2 Saturation ABG Base Excess -7.1 L ABG Hemoglobin ABG Oxyhemoglobin ABG Sodium ABG Potassium ABG Chloride ABG Glucose VBG pH Oxyhemoglobin 93.2 L Carboxyhemoglobin Sodium Potassium Chloride Carbon Dioxide BUN Creatinine Glucose POC Glucose 107 H 51 L Lactic Acid Calcium Phosphorus Magnesium Ferritin AST ALT Ammonia Lactate Dehydrogenase Troponin T C-Reactive Protein Total Protein Albumin Triglycerides LDL Cholesterol Direct HDL Cholesterol Arterial Blood Glucose Arterial Blood Ionized Calcium Urine WBC (Auto) Urine Creatinine Vancomycin Trough Crossmatch 06/25/21 06/25/21 06/25/21 Unknown Unknown Unknown WBC 2.3 L RBC 2.84 L Hgb 7.6 L Hct 24.3 L MCV MCH 27 L MCHC 31 L RDW 18.0 H Plt Count 51 L D Seg Neuts % (Manual) Lymphocytes % (Manual) Monocytes % (Manual) Nucleated RBC % 6.0 H Seg Neutrophils # Man 1.5 L Lymphocytes # (Manual) 0.3 L PT INR APTT D-Dimer ABG pH POC ABG pCO2 POC ABG pO2 ABG pO2 ABG HCO3 ABG O2 Saturation ABG Base Excess ABG Hemoglobin ABG Oxyhemoglobin ABG Sodium ABG Potassium ABG Chloride ABG Glucose VBG pH Oxyhemoglobin Carboxyhemoglobin Sodium 135 L Potassium Chloride Carbon Dioxide 18 L BUN 88 H Creatinine 4.8 H Glucose POC Glucose Lactic Acid Calcium 6.9 L Phosphorus 6.30 H Magnesium Ferritin AST ALT Ammonia Lactate Dehydrogenase Troponin T C-Reactive Protein Total Protein Albumin Triglycerides LDL Cholesterol Direct HDL Cholesterol Arterial Blood Glucose Arterial Blood Ionized Calcium Urine WBC (Auto) Urine Creatinine Vancomycin Trough Crossmatch
[2021-06-25 11:36] LABS: ABG PH 7.195 pH Units (7.350-7.450)
[2021-06-25] MEDS ORDERED: SODIUM BICARBONATE 150 MEQ in DEXTROSE 5% IN WATER 1,000 ML IV SCH (12:00)
--- NOTE | 2021-06-25 12:53 | Progress Note ---
Assessment and Plan Impression: * Acute kidney injury secondary to ATN likely related to COVID 19 * Acute hypoxic respiratory failure secondary to COVID 19 PNA * Azotemia * Hyperkalemia * Metabolic acidosis * Hypernatremia * Seizure disorder Plan: * Did not tolerate HD 06/23, had to be taken off after an hour due to hemodynamic instability. Hold HD today given hemodynamic instability. MAPS below goal on levophed and tachycardic. * Recommend transfer to a facility with CRRT as unable to tolerate HD * Vasculitis work-up negative, including ANCA as well as complement levels. * Keep MAP>65 * Management of COVID 19 PNA to primary team/ID * Dose medications for renal function * Renal diet * follow up lytes prn * ANGELES most likely secondary to ATN. No evidence of renal recovery at this time. * Neuro note reviewed * Prognosis guarded Subjective Date of service: 06/25/21 Principal diagnosis: Acute hypoxemic resp failure; Pneumonia; PUI COVID-19 infection Interval history: Remains sedated and intubated this morning. Tachycardic Objective - Exam Narrative Exam: General: Sedated. Intubated. HEENT: Oral mucosa moist Neck: Supple, no JVD Chest: Intubated. Mechanical breath sounds. Heart: RRR, S1 and S2, no pericardial rub Abdomen: Soft, nontender, no renal bruit Extremity: No peripheral cyanosis, edema Neurological: Sedated. Dermatology: No skin rash Psych: No agitation Musculoskeletal: No joint effusion - Vital Signs Vital signs: Vital Signs - 12hr 06/25/21 06/25/21 06/25/21 01:00 01:10 01:15 Temperature Pulse Rate 134 H 130 H 129 H Pulse Rate [ From Monitor] Respiratory 30 H 31 H 28 H Rate Blood Pressure O2 Sat by Pulse 95 91 92 Oximetry 06/25/21 06/25/21 06/25/21 01:30 01:45 02:00 Temperature Pulse Rate 129 H 129 H 129 H Pulse Rate [ From Monitor] Respiratory 30 H 27 H 31 H Rate Blood Pressure 111/58 102/58 93/57 O2 Sat by Pulse 91 91 91 Oximetry 06/25/21 06/25/21 06/25/21 02:15 02:31 02:45 Temperature Pulse Rate 130 H 127 H Pulse Rate [ From Monitor] Respiratory 30 H 24 Rate Blood Pressure 86/56 86/56 105/52 O2 Sat by Pulse 91 86 78 L Oximetry 06/25/21 06/25/21 06/25/21 03:01 03:15 03:30 Temperature Pulse Rate 122 H 124 H 125 H Pulse Rate [ From Monitor] Respiratory 19 30 H 30 H Rate Blood Pressure 79/50 96/51 106/52 O2 Sat by Pulse 99 76 L Oximetry 06/25/21 06/25/21 06/25/21 03:43 03:45 04:00 Temperature 97.0 F L Pulse Rate 126 H 127 H Pulse Rate [ From Monitor] Respiratory 30 H 32 H Rate Blood Pressure 106/52 111/54 O2 Sat by Pulse 91 78 L Oximetry 06/25/21 06/25/21 06/25/21 04:15 04:30 04:45 Temperature Pulse Rate 126 H 126 H 124 H Pulse Rate [ From Monitor] Respiratory 31 H 28 H 30 H Rate Blood Pressure 111/54 110/54 119/54 O2 Sat by Pulse Oximetry 06/25/21 06/25/21 06/25/21 04:46 05:00 05:15 Temperature Pulse Rate 123 H 121 H 125 H Pulse Rate [ 133 H From Monitor] Respiratory 30 H 31 H Rate Blood Pressure 101/36 89/48 94/49 O2 Sat by Pulse 94 100 Oximetry 06/25/21 06/25/21 06/25/21 05:31 05:46 06:00 Temperature Pulse Rate 126 H 128 H 130 H Pulse Rate [ From Monitor] Respiratory 30 H 32 H 30 H Rate Blood Pressure 88/55 101/56 109/52 O2 Sat by Pulse 92 92 93 Oximetry 06/25/21 06/25/21 06/25/21 06:15 06:30 06:45 Temperature Pulse Rate 131 H 131 H 131 H Pulse Rate [ From Monitor] Respiratory 31 H 31 H 30 H Rate Blood Pressure 95/51 93/49 91/48 O2 Sat by Pulse 84 Oximetry 06/25/21 06/25/21 06/25/21 07:00 07:26 10:00 Temperature 100.0 F H Pulse Rate 131 H 131 H Pulse Rate [ From Monitor] Respiratory 29 H 29 H Rate Blood Pressure 88/49 88/49 O2 Sat by Pulse 93 Oximetry 06/25/21 12:00 Temperature 98.4 F Pulse Rate Pulse Rate [ From Monitor] Respiratory Rate Blood Pressure O2 Sat by Pulse Oximetry - Lab 06/25/21 Unknown 10/20/21 Unknown Most recent lab results ABG pH 7.195 pH Units (7.350-7.450) L* 06/25/21 10:20 ABG pCO2 57.5 mm Hg 06/25/21 10:20 ABG pO2 71.0 mm Hg (80.0-90.0) L 06/25/21 10:20 ABG HCO3 21.8 mmol/L (20.0-26.0) 06/25/21 10:20 ABG O2 Saturation 95.8 % (95.0-99.0) 06/25/21 10:20 Calcium 6.9 mg/dL (8.4-10.2) L 06/25/21 Unknown Phosphorus 6.30 mg/dL (2.5-4.5) H 06/25/21 Unknown Magnesium 1.80 mg/dL (1.7-2.3) 06/25/21 Unknown Urine Creatinine 49.9 mg/dL (0.1-20.0) H 06/19/21 11:14 Urine Sodium 56 mmol/L 06/19/21 11:14 Medications & Allergies - Medications Allergies/Adverse Reactions: Allergies No Known Allergies Allergy (Unverified 02/12/17 15:47) Home Medications: Home Medications Medication Instructions Recorded Confirmed Last Taken Type No Known Home Medications [No 05/31/21 05/31/21 Unknown History Reported Home Medications] Active Medications: Generic Name Dose Route Start Last Admin Trade Name Freq PRN Reason Stop Dose Admin Acetaminophen 650 mg 06/19/21 12:00 06/24/21 09:45 Acetaminophen 325 Mg/10.15 Ml Oral Liqd Unit Dose FEEDTUBE 650 mg Q6H PRN Administration Pain MILD(1-3)/Fever >100.5/LUCAS Albuterol/Ipratropium 1 ampul 06/07/21 20:00 06/24/21 21:16 Ipratropium/Albuterol Sulfate 3 Ml Ampul.Neb IH 1 ampul TIDRT MIKE Administration Lipase/Protease/Amylase 1 each 06/18/21 12:21 Lipase 10,500/Protease 25,000/Amylase 43,750 (Units) Dr Cap FEEDTUBE PRN PRN For Clogged Feeding Tube Dextrose 25 ml 06/24/21 12:36 06/25/21 09:03 Dextrose 50% In Water (25gm) 50 Ml Syringe IV 20 ml Q30MIN PRN Administration Hypoglycemia Protocol Famotidine 10 mg 06/19/21 10:00 06/25/21 09:05 Famotidine 20 Mg/2 Ml Inj IV 10 mg BID MIKE Administration Fentanyl 50 mcg 06/17/21 17:00 Fentanyl 100 Mcg/2 Ml Inj IV Q10MIN PRN ANALGESIA Hydrophilic Ointment 1 applic 06/17/21 17:00 Lip Therapy Vaseline TP Q2HR PRN Dry Lips Metronidazole 500 mg in 100 mls @ 100 mls/hr 06/08/21 13:00 06/25/21 05:04 Flagyl 500 Mg/100 Ml IV 06/29/21 05:59 100 mls/hr Q8H MIKE Administration Protocol Fentanyl Citrate 2,000 mcg in 100 mls @ 3.725 mls/hr 06/17/21 17:00 06/25/21 09:02 Fentanyl Drip Premix IV 3 mcg/kg/hr TITR MIKE 11.175 mls/hr Administration Protocol 1 MCG/KG/HR NORepinephrine/NS 8 MG-250 ML 8 mg in 250 mls @ 3.75 mls/hr 06/18/21 23:00 06/25/21 09:04 Norepinephrine/Ns 8 Mg-250 Ml (Double Conc) IV 30 mcg/min TITRATE MIKE 56.25 mls/hr Administration Protocol 2 MCG/MIN Cefepime HCl 2 gm in 100 mls @ 200 mls/hr 06/20/21 06:00 06/25/21 05:05 Cefepime/Ns 2 Gm/100 Ml IV 06/29/21 06:29 200 mls/hr Q24H MIKE Administration Protocol Propofol 1,000 mg in 100 mls @ 2.226 mls/hr 06/20/21 13:00 06/24/21 21:52 Diprivan 10 Mg/Ml IV 10 mcg/kg/min TITR MIKE 4.452 mls/hr Administration Protocol 5 MCG/KG/MIN Sodium Chloride 100 mls @ 999 mls/hr 06/23/21 11:09 Nacl 0.9% IV KAVITA PRN Hypotension Vasopressin 20 unit/ Sodium 101 mls @ 9.09 mls/hr 06/24/21 10:00 06/25/21 09:03 Chloride IV 0.03 units/min TITR MIKE 9.09 mls/hr Administration Protocol 0.03 UNITS/MIN Lacosamide 50 mg/ Sodium 105 mls @ 100 mls/hr 06/24/21 12:00 06/25/21 03:54 Chloride IV Not Given Q12H MIKE Sodium Bicarbonate 150 meq/ 1,150 mls @ 75 mls/hr 06/25/21 12:00 06/25/21 11:40 Dextrose IV 06/27/21 03:19 75 mls/hr DIRECT MIKE Administration Lorazepam 2 mg 06/23/21 22:12 Lorazepam 2 Mg/Ml Vial IV Q4H PRN Agitation Morphine Sulfate 2 mg 05/23/21 22:01 06/17/21 10:01 Morphine 2 Mg/1 Ml Inj IV 2 mg Q4H PRN Administration Pain, Moderate (4-6) Multi-Ingred Cream/Lotion/Oil/Oint 1 applic 06/17/21 18:00 Mineral Oil/Petrolatum, White Ophth Oint 3.5 Gm OU Q4HR PRN Dry Eye(s) Ondansetron HCl 4 mg 06/04/21 13:41 06/09/21 22:05 Ondansetron 4 Mg/2 Ml Inj IV 4 mg Q4H PRN Administration Nausea And Vomiting Senna/Docusate Sodium 1 tab 06/17/21 22:00 06/25/21 09:05 Sennosides/Docusate Sodium 8.6/50 Mg Tab FEEDTUBE 1 tab BID MIKE Administration Simple Syrup 15 ml 06/18/21 12:21 06/23/21 23:31 Simple Syrup 15 Ml FEEDTUBE 15 ml PRN PRN Administration Hypoglycemia Simple Syrup 30 ml 06/18/21 12:21 Simple Syrup 15 Ml FEEDTUBE PRN PRN Hypoglycemia Sodium Bicarbonate 325 mg 06/18/21 12:21 Sodium Bicarbonate 325 Mg Tab FEEDTUBE PRN PRN For Clogged Feeding Tube Sodium Bicarbonate 100 meq 06/25/21 11:15 06/25/21 11:38 Sodium Bicarb 8.4% 50 Meq/50 Ml Syringe IV 06/25/21 15:15 100 meq [id number] MIKE Administration Sodium Chloride 10 ml 05/23/21 22:01 06/25/21 09:07 Sodium Chloride 0.9% 10 Ml Flush Syringe IV 10 ml PRN PRN Administration LINE FLUSH
--- NOTE | 2021-06-25 13:48 | Progress Note ---
Assessment and Plan Acute hypoxemic respiratory failure Bilateral pneumonia Suspected 2019 novel coronavirus infection - empiric diflucan re: cytology / silver stain of tracheal aspirate - continue Cefepime - begin high dose solumedrol for clinical DAH (500 mg IV q8h X 72 hours then bid X 48 hours) - send bronch wash for AFB smears and culture; Fungal smears and culture and routine respiratory bacterial cultures - empiric anti-epileptic drugs - CT Brain - neurology consultation - left chest tube to continuous wall suction - tracheal aspirate sent for silcer stain re: PJP - wean vasopressors for MAP > 65 mmHg - continue anti-infective's per ID recommendations (Cefepime) - continue care as below otherwise; - Daily SAT and SBT assessment as tolerated - VAP bundle addressed - continue lung protective strategies - continue bronchodilators with pulmonary hygiene per RT - wean per pulmonary driven protocols otherwise - continue to wean supplemental oxygen for target O2 sat's > 90% acutely - continue accuchecks with glycemic control per SSI (While critically ill target blood glucose of 140-180 mg/dL; avoid hypoglycemia) - avoid nephrotoxins, renally dose all medications - continue to avoid benzodiazepine's, reduce the possibility of delirium - prn analgesia per CPOT score - Maintenance of sleep-wake cycle, avoid delirium - continue enteral nutritional support at goal rate as tolerated - G.I. & VTE prophylaxis - PT/OT/ROM exercises - continue mobility protocols for pressure ulcer prophylaxis - Monitor hemodynamics closely - continue other care per attending / other consultants - discharge planning ongoing concurrently COVID SPECIFIC INTERVENTIONS - repeat COVID-19 test result negative .... Re-evaluate in am & prn CONDITION: CRITICAL PROGNOSIS: GUARDED CODE STATUS: FULL CODE The high probability of a clinically significant, sudden or life-threatening deterioration of the [respiratory, GI, renal & cardiovascular] system(s) required my full and direct attention, intervention and personal management. The aggregate critical care time was [35] minutes without overlap. Time includes spent on; [x] Data Review and interpretation [x] Patient assessment and monitoring of vital signs [x] Documentation [x] Medication orders and management Subjective Date of service: 06/25/21 Principal diagnosis: Acute hypoxemic resp failure; Pneumonia; PUI COVID-19 infection Interval history: Patient is seen today for: Acute hypoxemic respiratory failure; Bilateral pneumonia; Suspected 2019 novel coronavirus infection Seen and examined at bedside; 24hour events reviewed; nursing and respiratory care staff consulted; no adverse overnight events reported to me; resting in bed; remains on MVS; Objective Vital Signs - 12hr 06/25/21 06/25/21 06/25/21 02:00 02:15 02:31 Temperature Pulse Rate 129 H 130 H Pulse Rate [ From Monitor] Respiratory 31 H 30 H Rate Blood Pressure 93/57 86/56 86/56 O2 Sat by Pulse 91 91 86 Oximetry 06/25/21 06/25/21 06/25/21 02:45 03:01 03:15 Temperature Pulse Rate 127 H 122 H 124 H Pulse Rate [ From Monitor] Respiratory 24 19 30 H Rate Blood Pressure 105/52 79/50 96/51 O2 Sat by Pulse 78 L 99 Oximetry 06/25/21 06/25/21 06/25/21 03:30 03:43 03:45 Temperature 97.0 F L Pulse Rate 125 H 126 H Pulse Rate [ From Monitor] Respiratory 30 H 30 H Rate Blood Pressure 106/52 106/52 O2 Sat by Pulse 76 L 91 Oximetry 06/25/21 06/25/21 06/25/21 04:00 04:15 04:30 Temperature Pulse Rate 127 H 126 H 126 H Pulse Rate [ From Monitor] Respiratory 32 H 31 H 28 H Rate Blood Pressure 111/54 111/54 110/54 O2 Sat by Pulse 78 L Oximetry 06/25/21 06/25/21 06/25/21 04:45 04:46 05:00 Temperature Pulse Rate 124 H 123 H 121 H Pulse Rate [ 133 H From Monitor] Respiratory 30 H 30 H Rate Blood Pressure 119/54 101/36 89/48 O2 Sat by Pulse 94 100 Oximetry 06/25/21 06/25/21 06/25/21 05:15 05:31 05:46 Temperature Pulse Rate 125 H 126 H 128 H Pulse Rate [ From Monitor] Respiratory 31 H 30 H 32 H Rate Blood Pressure 94/49 88/55 101/56 O2 Sat by Pulse 92 92 Oximetry 06/25/21 06/25/21 06/25/21 06:00 06:15 06:30 Temperature Pulse Rate 130 H 131 H 131 H Pulse Rate [ From Monitor] Respiratory 30 H 31 H 31 H Rate Blood Pressure 109/52 95/51 93/49 O2 Sat by Pulse 93 84 Oximetry 06/25/21 06/25/21 06/25/21 06:45 07:00 07:26 Temperature 100.0 F H Pulse Rate 131 H 131 H Pulse Rate [ From Monitor] Respiratory 30 H 29 H Rate Blood Pressure 91/48 88/49 O2 Sat by Pulse Oximetry 06/25/21 06/25/21 10:00 12:00 Temperature 98.4 F Pulse Rate 131 H Pulse Rate [ From Monitor] Respiratory 29 H Rate Blood Pressure 88/49 O2 Sat by Pulse 93 Oximetry Constitutional: appears uncomfortable, other (middle aged male with mildly increased respiratory effort at rest on MVS) Eyes: non-icteric ENT: oropharynx moist, other (ETT 24 cm MADHAVI) Neck: supple, no JVD Effort: mildly labored Ascultation: Bilateral: diminished breath sounds, rhonchi Percussion: Bilateral: not dull Cardiovascular: regular rate and rhythm Gastrointestinal: normoactive bowel sounds Integumentary: normal Extremities: no cyanosis, pulses normal, no ischemia or petechiae, edema Neurologic: pupils equal and round, CN II-XII normal, other (sedated) Psychiatric: other (unable to assess re: AMS) CBC and BMP: 06/25/21 Unknown 06/25/21 Unknown ABG, PT/INR, D-dimer: ABG ABG pH 7.195 pH Units (7.350-7.450) L* 06/25/21 10:20 POC ABG pCO2 53.8 mmHg (32.0-48.0) H 06/24/21 04:00 ABG pCO2 57.5 mm Hg 06/25/21 10:20 POC ABG pO2 53.1 mmHg (83-108) L 06/24/21 04:00 ABG pO2 71.0 mm Hg (80.0-90.0) L 06/25/21 10:20 POC ABG HCO3 22.4 06/24/21 04:00 ABG O2 Saturation 95.8 % (95.0-99.0) 06/25/21 10:20 PT/INR, D-dimer PT 19.2 Sec. (12.2-14.9) H 06/19/21 09:37 INR 1.46 (0.87-1.13) H 06/19/21 09:37 D-Dimer 3584.01 ng/mlDDU (0-234) H 05/27/21 08:09 Abnormal lab findings: Abnormal Labs 05/23/21 05/23/21 05/23/21 18:48 18:48 18:48 WBC 11.8 H RBC 5.18 H Hgb Hct MCV MCH MCHC RDW Plt Count Seg Neuts % (Manual) 84.0 H Lymphocytes % (Manual) Monocytes % (Manual) Nucleated RBC % Seg Neutrophils # Man 9.9 H Lymphocytes # (Manual) PT INR APTT D-Dimer > 00154 H ABG pH POC ABG pCO2 POC ABG pO2 ABG pO2 ABG HCO3 ABG O2 Saturation ABG Base Excess ABG Hemoglobin ABG Oxyhemoglobin ABG Sodium ABG Potassium ABG Chloride ABG Glucose VBG pH Oxyhemoglobin Carboxyhemoglobin Sodium Potassium Chloride Carbon Dioxide BUN Creatinine Glucose POC Glucose Lactic Acid 2.30 H* Calcium Phosphorus Magnesium Ferritin AST ALT Ammonia Lactate Dehydrogenase Troponin T C-Reactive Protein Total Protein Albumin Triglycerides LDL Cholesterol Direct HDL Cholesterol Arterial Blood Glucose Arterial Blood Ionized Calcium Urine WBC (Auto) Urine Creatinine Vancomycin Trough Crossmatch 05/23/21 05/23/21 05/23/21 18:48 18:48 18:48 WBC RBC Hgb Hct MCV MCH MCHC RDW Plt Count Seg Neuts % (Manual) Lymphocytes % (Manual) Monocytes % (Manual) Nucleated RBC % Seg Neutrophils # Man Lymphocytes # (Manual) PT INR APTT D-Dimer ABG pH POC ABG pCO2 POC ABG pO2 ABG pO2 ABG HCO3 ABG O2 Saturation ABG Base Excess ABG Hemoglobin ABG Oxyhemoglobin ABG Sodium ABG Potassium ABG Chloride ABG Glucose VBG pH Oxyhemoglobin Carboxyhemoglobin Sodium 151 H Potassium 5.1 H Chloride 113.2 H Carbon Dioxide 17 L BUN 180 H Creatinine 4.3 H Glucose 114 H POC Glucose Lactic Acid Calcium Phosphorus Magnesium Ferritin 2000.0 H AST ALT Ammonia 22.0 L Lactate Dehydrogenase 577 H Troponin T C-Reactive Protein 8.80 H Total Protein 9.4 H Albumin 3.0 L Triglycerides LDL Cholesterol Direct HDL Cholesterol Arterial Blood Glucose Arterial Blood Ionized Calcium Urine WBC (Auto) Urine Creatinine Vancomycin Trough Crossmatch 05/23/21 05/24/21 05/24/21 21:06 02:09 02:09 WBC RBC Hgb Hct MCV MCH MCHC RDW Plt Count Seg Neuts % (Manual) Lymphocytes % (Manual) Monocytes % (Manual) Nucleated RBC % Seg Neutrophils # Man Lymphocytes # (Manual) PT INR APTT D-Dimer ABG pH POC ABG pCO2 POC ABG pO2 ABG pO2 ABG HCO3 ABG O2 Saturation ABG Base Excess ABG Hemoglobin ABG Oxyhemoglobin ABG Sodium ABG Potassium ABG Chloride ABG Glucose VBG pH 7.254 L Oxyhemoglobin Carboxyhemoglobin Sodium Potassium Chloride Carbon Dioxide BUN Creatinine Glucose POC Glucose Lactic Acid 2.10 H* 2.30 H* Calcium Phosphorus Magnesium Ferritin AST ALT Ammonia Lactate Dehydrogenase Troponin T C-Reactive Protein Total Protein Albumin Triglycerides LDL Cholesterol Direct HDL Cholesterol Arterial Blood Glucose Arterial Blood Ionized Calcium Urine WBC (Auto) Urine Creatinine Vancomycin Trough Crossmatch 05/24/21 05/24/21 05/24/21 13:11 17:34 18:12 WBC RBC Hgb Hct MCV MCH MCHC RDW Plt Count Seg Neuts % (Manual) Lymphocytes % (Manual) Monocytes % (Manual) Nucleated RBC % Seg Neutrophils # Man Lymphocytes # (Manual) PT INR APTT D-Dimer ABG pH POC ABG pCO2 POC ABG pO2 ABG pO2 ABG HCO3 ABG O2 Saturation ABG Base Excess ABG Hemoglobin ABG Oxyhemoglobin ABG Sodium ABG Potassium ABG Chloride ABG Glucose VBG pH Oxyhemoglobin Carboxyhemoglobin Sodium 155 H Potassium 6.9 H* D 5.7 H Chloride 121.9 H Carbon Dioxide 20 L BUN 139 H Creatinine 2.7 H Glucose 139 H POC Glucose 153 H Lactic Acid Calcium Phosphorus Magnesium Ferritin AST ALT Ammonia Lactate Dehydrogenase Troponin T C-Reactive Protein Total Protein Albumin Triglycerides LDL Cholesterol Direct HDL Cholesterol Arterial Blood Glucose Arterial Blood Ionized Calcium Urine WBC (Auto) Urine Creatinine Vancomycin Trough Crossmatch 05/25/21 05/25/21 05/26/21 11:33 11:33 03:15 WBC 13.8 H RBC 5.06 H Hgb Hct MCV MCH MCHC RDW Plt Count Seg Neuts % (Manual) Lymphocytes % (Manual) Monocytes % (Manual) Nucleated RBC % Seg Neutrophils # Man Lymphocytes # (Manual) PT INR APTT D-Dimer ABG pH POC ABG pCO2 POC ABG pO2 ABG pO2 ABG HCO3 ABG O2 Saturation ABG Base Excess ABG Hemoglobin ABG Oxyhemoglobin ABG Sodium ABG Potassium ABG Chloride ABG Glucose VBG pH Oxyhemoglobin Carboxyhemoglobin Sodium 164 H* D 166 H* Potassium 5.4 H 5.5 H Chloride 131.3 H 129.2 H Carbon Dioxide BUN 109 H 102 H Creatinine 1.9 H 1.8 H Glucose 117 H 113 H POC Glucose Lactic Acid Calcium Phosphorus Magnesium Ferritin AST ALT Ammonia Lactate Dehydrogenase 711 H Troponin T C-Reactive Protein 7.90 H Total Protein Albumin Triglycerides LDL Cholesterol Direct HDL Cholesterol Arterial Blood Glucose Arterial Blood Ionized Calcium Urine WBC (Auto) Urine Creatinine Vancomycin Trough Crossmatch 05/26/21 05/26/21 05/26/21 03:15 03:15 03:15 WBC 13.1 H RBC 5.43 H Hgb 15.3 H Hct 48.5 H MCV MCH MCHC RDW 15.4 H Plt Count Seg Neuts % (Manual) Lymphocytes % (Manual) Monocytes % (Manual) Nucleated RBC % Seg Neutrophils # Man Lymphocytes # (Manual) PT INR APTT D-Dimer 6229.14 H ABG pH POC ABG pCO2 POC ABG pO2 ABG pO2 ABG HCO3 ABG O2 Saturation ABG Base Excess ABG Hemoglobin ABG Oxyhemoglobin ABG Sodium ABG Potassium ABG Chloride ABG Glucose VBG pH Oxyhemoglobin Carboxyhemoglobin Sodium Potassium Chloride Carbon Dioxide BUN Creatinine Glucose POC Glucose Lactic Acid Calcium Phosphorus Magnesium Ferritin 2991.0 H AST ALT Ammonia Lactate Dehydrogenase Troponin T C-Reactive Protein Total Protein Albumin Triglycerides LDL Cholesterol Direct HDL Cholesterol Arterial Blood Glucose Arterial Blood Ionized Calcium Urine WBC (Auto) Urine Creatinine Vancomycin Trough Crossmatch 05/27/21 05/27/21 05/27/21 08:09 08:09 08:09 WBC 12.4 H RBC 5.27 H Hgb Hct 46.6 H MCV MCH MCHC 31 L RDW 15.7 H Plt Count Seg Neuts % (Manual) Lymphocytes % (Manual) Monocytes % (Manual) Nucleated RBC % Seg Neutrophils # Man Lymphocytes # (Manual) PT INR APTT D-Dimer 3584.01 H ABG pH POC ABG pCO2 POC ABG pO2 ABG pO2 ABG HCO3 ABG O2 Saturation ABG Base Excess ABG Hemoglobin ABG Oxyhemoglobin ABG Sodium ABG Potassium ABG Chloride ABG Glucose VBG pH Oxyhemoglobin Carboxyhemoglobin Sodium 174 H* Potassium Chloride 136.9 H Carbon Dioxide BUN 90 H Creatinine 1.8 H Glucose POC Glucose Lactic Acid Calcium Phosphorus Magnesium Ferritin AST ALT Ammonia Lactate Dehydrogenase 642 H Troponin T C-Reactive Protein 5.20 H Total Protein Albumin Triglycerides LDL Cholesterol Direct HDL Cholesterol Arterial Blood Glucose Arterial Blood Ionized Calcium Urine WBC (Auto) Urine Creatinine Vancomycin Trough Crossmatch 05/27/21 05/28/21 05/28/21 08:09 07:31 07:31 WBC RBC Hgb Hct MCV MCH 27 L MCHC 31 L RDW Plt Count Seg Neuts % (Manual) 88.0 H Lymphocytes % (Manual) 11.0 L Monocytes % (Manual) Nucleated RBC % Seg Neutrophils # Man 8.3 H Lymphocytes # (Manual) 1.0 L PT INR APTT D-Dimer ABG pH POC ABG pCO2 POC ABG pO2 ABG pO2 ABG HCO3 ABG O2 Saturation ABG Base Excess ABG Hemoglobin ABG Oxyhemoglobin ABG Sodium ABG Potassium ABG Chloride ABG Glucose VBG pH Oxyhemoglobin Carboxyhemoglobin Sodium 162 H* D Potassium Chloride 125.8 H Carbon Dioxide BUN 72 H Creatinine 1.6 H Glucose 131 H POC Glucose Lactic Acid Calcium Phosphorus Magnesium 3.00 H Ferritin 2742.0 H AST ALT Ammonia Lactate Dehydrogenase Troponin T C-Reactive Protein Total Protein Albumin Triglycerides LDL Cholesterol Direct HDL Cholesterol Arterial Blood Glucose Arterial Blood Ionized Calcium Urine WBC (Auto) Urine Creatinine Vancomycin Trough Crossmatch 05/29/21 05/29/21 05/29/21 06:40 06:40 17:58 WBC 14.1 H RBC Hgb Hct MCV MCH 27 L MCHC 31 L RDW Plt Count Seg Neuts % (Manual) 85.0 H Lymphocytes % (Manual) 9.0 L Monocytes % (Manual) Nucleated RBC % 1.0 H Seg Neutrophils # Man 12.0 H Lymphocytes # (Manual) PT INR APTT D-Dimer ABG pH 7.505 H POC ABG pCO2 30.3 L POC ABG pO2 128.1 H ABG pO2 ABG HCO3 ABG O2 Saturation ABG Base Excess ABG Hemoglobin 11.9 L ABG Oxyhemoglobin ABG Sodium ABG Potassium ABG Chloride 113.0 H ABG Glucose 110 H VBG pH Oxyhemoglobin Carboxyhemoglobin Sodium 148 H D Potassium Chloride 111.3 H Carbon Dioxide 20 L BUN 45 H Creatinine Glucose POC Glucose Lactic Acid Calcium Phosphorus 2.10 L D Magnesium Ferritin AST ALT Ammonia Lactate Dehydrogenase Troponin T C-Reactive Protein Total Protein Albumin Triglycerides LDL Cholesterol Direct HDL Cholesterol Arterial Blood Glucose 110 H Arterial Blood Ionized Calcium 4.5 L Urine WBC (Auto) Urine Creatinine Vancomycin Trough Crossmatch 05/30/21 05/30/21 05/30/21 01:00 06:06 13:48 WBC RBC Hgb Hct MCV MCH MCHC RDW Plt Count Seg Neuts % (Manual) Lymphocytes % (Manual) Monocytes % (Manual) Nucleated RBC % Seg Neutrophils # Man Lymphocytes # (Manual) PT INR APTT D-Dimer ABG pH POC ABG pCO2 POC ABG pO2 ABG pO2 90.9 H ABG HCO3 ABG O2 Saturation ABG Base Excess ABG Hemoglobin 11.8 L ABG Oxyhemoglobin ABG Sodium ABG Potassium ABG Chloride ABG Glucose VBG pH Oxyhemoglobin Carboxyhemoglobin Sodium 150 H Potassium Chloride 117.6 H Carbon Dioxide BUN 40 H Creatinine Glucose POC Glucose Lactic Acid Calcium 8.3 L Phosphorus Magnesium Ferritin AST ALT Ammonia Lactate Dehydrogenase Troponin T C-Reactive Protein Total Protein Albumin Triglycerides LDL Cholesterol Direct HDL Cholesterol Arterial Blood Glucose Arterial Blood Ionized Calcium Urine WBC (Auto) 12.0 H Urine Creatinine Vancomycin Trough Crossmatch 05/30/21 05/31/21 05/31/21 22:32 02:22 02:22 WBC RBC Hgb 11.2 L Hct 34.8 L MCV MCH MCHC RDW Plt Count 127 L Seg Neuts % (Manual) 97.0 H Lymphocytes % (Manual) Monocytes % (Manual) Nucleated RBC % Seg Neutrophils # Man 10.5 H Lymphocytes # (Manual) 0.0 L PT INR APTT D-Dimer ABG pH 7.454 H POC ABG pCO2 POC ABG pO2 ABG pO2 141.8 H ABG HCO3 19.9 L ABG O2 Saturation ABG Base Excess -2.7 L ABG Hemoglobin ABG Oxyhemoglobin ABG Sodium ABG Potassium ABG Chloride ABG Glucose VBG pH Oxyhemoglobin Carboxyhemoglobin Sodium 152 H Potassium Chloride 118.9 H Carbon Dioxide 19 L BUN 48 H Creatinine 1.5 H Glucose 101 H POC Glucose Lactic Acid Calcium 8.3 L Phosphorus Magnesium Ferritin AST ALT Ammonia Lactate Dehydrogenase Troponin T C-Reactive Protein Total Protein Albumin Triglycerides LDL Cholesterol Direct HDL Cholesterol Arterial Blood Glucose Arterial Blood Ionized Calcium Urine WBC (Auto) Urine Creatinine Vancomycin Trough Crossmatch 05/31/21 05/31/21 06/01/21 11:42 21:28 07:10 WBC RBC Hgb Hct MCV MCH MCHC RDW Plt Count Seg Neuts % (Manual) Lymphocytes % (Manual) Monocytes % (Manual) Nucleated RBC % Seg Neutrophils # Man Lymphocytes # (Manual) PT INR APTT D-Dimer ABG pH POC ABG pCO2 POC ABG pO2 ABG pO2 ABG HCO3 ABG O2 Saturation ABG Base Excess ABG Hemoglobin ABG Oxyhemoglobin ABG Sodium ABG Potassium ABG Chloride ABG Glucose VBG pH Oxyhemoglobin Carboxyhemoglobin Sodium 150 H Potassium Chloride 115.7 H Carbon Dioxide BUN 47 H Creatinine Glucose 115 H POC Glucose 161 H Lactic Acid Calcium Phosphorus Magnesium 2.50 H Ferritin AST ALT Ammonia Lactate Dehydrogenase Troponin T C-Reactive Protein Total Protein Albumin Triglycerides LDL Cholesterol Direct HDL Cholesterol Arterial Blood Glucose Arterial Blood Ionized Calcium Urine WBC (Auto) Urine Creatinine Vancomycin Trough 20.2 H Crossmatch 06/01/21 06/01/21 06/01/21 07:10 07:54 10:39 WBC RBC Hgb 10.7 L Hct 33.5 L MCV MCH MCHC RDW Plt Count Seg Neuts % (Manual) 92.0 H Lymphocytes % (Manual) 4.0 L Monocytes % (Manual) Nucleated RBC % Seg Neutrophils # Man Lymphocytes # (Manual) 0.3 L PT INR APTT D-Dimer ABG pH POC ABG pCO2 POC ABG pO2 ABG pO2 ABG HCO3 ABG O2 Saturation ABG Base Excess ABG Hemoglobin ABG Oxyhemoglobin ABG Sodium ABG Potassium ABG Chloride ABG Glucose VBG pH Oxyhemoglobin Carboxyhemoglobin Sodium 152 H Potassium Chloride 117.6 H Carbon Dioxide BUN 50 H Creatinine Glucose 140 H POC Glucose 127 H Lactic Acid Calcium 8.3 L Phosphorus Magnesium Ferritin AST ALT Ammonia Lactate Dehydrogenase Troponin T C-Reactive Protein Total Protein Albumin Triglycerides LDL Cholesterol Direct HDL Cholesterol Arterial Blood Glucose Arterial Blood Ionized Calcium Urine WBC (Auto) Urine Creatinine Vancomycin Trough Crossmatch 06/01/21 06/01/21 06/01/21 11:11 16:16 21:45 WBC RBC Hgb Hct MCV MCH MCHC RDW Plt Count Seg Neuts % (Manual) Lymphocytes % (Manual) Monocytes % (Manual) Nucleated RBC % Seg Neutrophils # Man Lymphocytes # (Manual) PT INR APTT D-Dimer ABG pH POC ABG pCO2 POC ABG pO2 ABG pO2 ABG HCO3 ABG O2 Saturation ABG Base Excess ABG Hemoglobin ABG Oxyhemoglobin ABG Sodium ABG Potassium ABG Chloride ABG Glucose VBG pH Oxyhemoglobin Carboxyhemoglobin Sodium Potassium Chloride Carbon Dioxide BUN Creatinine Glucose POC Glucose 120 H 129 H 150 H Lactic Acid Calcium Phosphorus Magnesium Ferritin AST ALT Ammonia Lactate Dehydrogenase Troponin T C-Reactive Protein Total Protein Albumin Triglycerides LDL Cholesterol Direct HDL Cholesterol Arterial Blood Glucose Arterial Blood Ionized Calcium Urine WBC (Auto) Urine Creatinine Vancomycin Trough Crossmatch 06/02/21 06/02/21 06/02/21 06:53 06:53 07:52 WBC RBC Hgb 10.4 L Hct 32.4 L MCV MCH 27 L MCHC RDW Plt Count Seg Neuts % (Manual) 93.0 H Lymphocytes % (Manual) 3.0 L Monocytes % (Manual) Nucleated RBC % Seg Neutrophils # Man Lymphocytes # (Manual) 0.2 L PT INR APTT D-Dimer ABG pH POC ABG pCO2 POC ABG pO2 ABG pO2 ABG HCO3 ABG O2 Saturation ABG Base Excess ABG Hemoglobin ABG Oxyhemoglobin ABG Sodium ABG Potassium ABG Chloride ABG Glucose VBG pH Oxyhemoglobin Carboxyhemoglobin Sodium 149 H Potassium Chloride 112.6 H Carbon Dioxide BUN 54 H Creatinine Glucose 123 H POC Glucose 116 H Lactic Acid Calcium 8.2 L Phosphorus Magnesium Ferritin AST ALT Ammonia Lactate Dehydrogenase Troponin T C-Reactive Protein Total Protein Albumin Triglycerides LDL Cholesterol Direct HDL Cholesterol Arterial Blood Glucose Arterial Blood Ionized Calcium Urine WBC (Auto) Urine Creatinine Vancomycin Trough Crossmatch 06/03/21 06/03/21 06/03/21 05:57 05:57 21:23 WBC RBC Hgb 10.7 L Hct 33.0 L MCV 83 L MCH 27 L MCHC RDW Plt Count Seg Neuts % (Manual) 88.0 H Lymphocytes % (Manual) 8.0 L Monocytes % (Manual) Nucleated RBC % 2.0 H Seg Neutrophils # Man Lymphocytes # (Manual) 0.6 L PT INR APTT D-Dimer ABG pH POC ABG pCO2 POC ABG pO2 39.0 L ABG pO2 ABG HCO3 ABG O2 Saturation ABG Base Excess ABG Hemoglobin ABG Oxyhemoglobin 69.1 L ABG Sodium 134.1 L ABG Potassium ABG Chloride ABG Glucose 135 H VBG pH Oxyhemoglobin Carboxyhemoglobin Sodium Potassium Chloride Carbon Dioxide BUN 36 H Creatinine Glucose 102 H POC Glucose Lactic Acid Calcium 8.0 L Phosphorus 2.20 L D Magnesium Ferritin AST ALT Ammonia Lactate Dehydrogenase Troponin T C-Reactive Protein Total Protein Albumin Triglycerides LDL Cholesterol Direct HDL Cholesterol Arterial Blood Glucose 135 H Arterial Blood Ionized Calcium Urine WBC (Auto) Urine Creatinine Vancomycin Trough Crossmatch 06/04/21 06/04/21 06/04/21 07:04 07:04 17:42 WBC RBC Hgb 11.3 L Hct 34.9 L MCV MCH 27 L MCHC RDW Plt Count Seg Neuts % (Manual) Lymphocytes % (Manual) 5.0 L Monocytes % (Manual) Nucleated RBC % Seg Neutrophils # Man 8.4 H Lymphocytes # (Manual) 0.5 L PT INR APTT D-Dimer ABG pH POC ABG pCO2 POC ABG pO2 ABG pO2 ABG HCO3 ABG O2 Saturation ABG Base Excess ABG Hemoglobin ABG Oxyhemoglobin ABG Sodium ABG Potassium ABG Chloride ABG Glucose VBG pH Oxyhemoglobin Carboxyhemoglobin Sodium Potassium Chloride Carbon Dioxide BUN 27 H Creatinine Glucose POC Glucose 136 H Lactic Acid Calcium 8.2 L Phosphorus Magnesium Ferritin AST ALT Ammonia Lactate Dehydrogenase Troponin T C-Reactive Protein Total Protein Albumin Triglycerides LDL Cholesterol Direct HDL Cholesterol Arterial Blood Glucose Arterial Blood Ionized Calcium Urine WBC (Auto) Urine Creatinine Vancomycin Trough Crossmatch 06/05/21 06/05/21 06/05/21 05:10 12:32 15:45 WBC RBC Hgb Hct MCV MCH MCHC RDW Plt Count Seg Neuts % (Manual) Lymphocytes % (Manual) Monocytes % (Manual) Nucleated RBC % Seg Neutrophils # Man Lymphocytes # (Manual) PT INR APTT D-Dimer ABG pH POC ABG pCO2 POC ABG pO2 ABG pO2 ABG HCO3 ABG O2 Saturation ABG Base Excess ABG Hemoglobin ABG Oxyhemoglobin ABG Sodium ABG Potassium ABG Chloride ABG Glucose VBG pH Oxyhemoglobin Carboxyhemoglobin Sodium Potassium 3.5 L Chloride Carbon Dioxide BUN 35 H Creatinine Glucose 130 H POC Glucose 122 H 119 H Lactic Acid Calcium 8.2 L Phosphorus Magnesium Ferritin AST ALT Ammonia Lactate Dehydrogenase Troponin T C-Reactive Protein Total Protein Albumin Triglycerides LDL Cholesterol Direct HDL Cholesterol Arterial Blood Glucose Arterial Blood Ionized Calcium Urine WBC (Auto) Urine Creatinine Vancomycin Trough Crossmatch 06/05/21 06/05/21 06/06/21 20:06 21:27 00:04 WBC RBC Hgb Hct MCV MCH MCHC RDW Plt Count Seg Neuts % (Manual) Lymphocytes % (Manual) Monocytes % (Manual) Nucleated RBC % Seg Neutrophils # Man Lymphocytes # (Manual) PT INR APTT D-Dimer ABG pH 7.456 H POC ABG pCO2 POC ABG pO2 ABG pO2 ABG HCO3 ABG O2 Saturation ABG Base Excess ABG Hemoglobin 10.3 L ABG Oxyhemoglobin ABG Sodium ABG Potassium 3.1 L ABG Chloride ABG Glucose 125 H VBG pH Oxyhemoglobin Carboxyhemoglobin 0.3 L Sodium Potassium Chloride Carbon Dioxide BUN Creatinine Glucose POC Glucose 113 H Lactic Acid Calcium Phosphorus Magnesium Ferritin AST ALT Ammonia Lactate Dehydrogenase Troponin T C-Reactive Protein 19.60 H Total Protein Albumin Triglycerides LDL Cholesterol Direct HDL Cholesterol Arterial Blood Glucose 125 H Arterial Blood Ionized Calcium Urine WBC (Auto) Urine Creatinine Vancomycin Trough Crossmatch 06/06/21 06/06/21 06/07/21 04:35 22:37 05:54 WBC RBC Hgb Hct MCV MCH MCHC RDW Plt Count Seg Neuts % (Manual) Lymphocytes % (Manual) Monocytes % (Manual) Nucleated RBC % Seg Neutrophils # Man Lymphocytes # (Manual) PT INR APTT D-Dimer ABG pH POC ABG pCO2 POC ABG pO2 ABG pO2 ABG HCO3 ABG O2 Saturation ABG Base Excess ABG Hemoglobin ABG Oxyhemoglobin ABG Sodium ABG Potassium ABG Chloride ABG Glucose VBG pH Oxyhemoglobin Carboxyhemoglobin Sodium Potassium Chloride Carbon Dioxide BUN 43 H Creatinine Glucose POC Glucose 114 H 130 H Lactic Acid Calcium 7.6 L Phosphorus Magnesium Ferritin AST ALT Ammonia Lactate Dehydrogenase Troponin T C-Reactive Protein Total Protein Albumin Triglycerides LDL Cholesterol Direct HDL Cholesterol Arterial Blood Glucose Arterial Blood Ionized Calcium Urine WBC (Auto) Urine Creatinine Vancomycin Trough Crossmatch 06/07/21 06/07/21 06/07/21 07:32 10:03 11:36 WBC RBC 3.63 L Hgb 9.8 L Hct 30.3 L MCV 83 L MCH 27 L MCHC RDW Plt Count Seg Neuts % (Manual) Lymphocytes % (Manual) Monocytes % (Manual) Nucleated RBC % Seg Neutrophils # Man Lymphocytes # (Manual) PT INR APTT D-Dimer ABG pH POC ABG pCO2 POC ABG pO2 ABG pO2 ABG HCO3 ABG O2 Saturation ABG Base Excess ABG Hemoglobin ABG Oxyhemoglobin ABG Sodium ABG Potassium ABG Chloride ABG Glucose VBG pH Oxyhemoglobin Carboxyhemoglobin Sodium Potassium 3.2 L Chloride 108.5 H Carbon Dioxide BUN 36 H Creatinine Glucose 139 H POC Glucose 125 H Lactic Acid Calcium 8.0 L Phosphorus Magnesium Ferritin AST ALT Ammonia Lactate Dehydrogenase Troponin T C-Reactive Protein Total Protein Albumin Triglycerides LDL Cholesterol Direct HDL Cholesterol Arterial Blood Glucose Arterial Blood Ionized Calcium Urine WBC (Auto) Urine Creatinine Vancomycin Trough Crossmatch 06/07/21 06/07/21 06/08/21 17:54 22:14 07:18 WBC RBC Hgb Hct MCV MCH MCHC RDW Plt Count Seg Neuts % (Manual) Lymphocytes % (Manual) Monocytes % (Manual) Nucleated RBC % Seg Neutrophils # Man Lymphocytes # (Manual) PT INR APTT D-Dimer ABG pH POC ABG pCO2 POC ABG pO2 ABG pO2 ABG HCO3 ABG O2 Saturation ABG Base Excess ABG Hemoglobin ABG Oxyhemoglobin ABG Sodium ABG Potassium ABG Chloride ABG Glucose VBG pH Oxyhemoglobin Carboxyhemoglobin Sodium 149 H Potassium Chloride 110.2 H Carbon Dioxide BUN 31 H Creatinine Glucose 131 H POC Glucose 121 H 131 H Lactic Acid Calcium 8.1 L Phosphorus Magnesium Ferritin AST ALT Ammonia Lactate Dehydrogenase Troponin T C-Reactive Protein Total Protein Albumin Triglycerides LDL Cholesterol Direct HDL Cholesterol Arterial Blood Glucose Arterial Blood Ionized Calcium Urine WBC (Auto) Urine Creatinine Vancomycin Trough Crossmatch 06/08/21 06/08/21 06/08/21 07:45 12:07 18:02 WBC RBC Hgb Hct MCV MCH MCHC RDW Plt Count Seg Neuts % (Manual) Lymphocytes % (Manual) Monocytes % (Manual) Nucleated RBC % Seg Neutrophils # Man Lymphocytes # (Manual) PT INR APTT D-Dimer ABG pH POC ABG pCO2 POC ABG pO2 ABG pO2 ABG HCO3 ABG O2 Saturation ABG Base Excess ABG Hemoglobin ABG Oxyhemoglobin ABG Sodium ABG Potassium ABG Chloride ABG Glucose VBG pH Oxyhemoglobin Carboxyhemoglobin Sodium Potassium Chloride Carbon Dioxide BUN Creatinine Glucose POC Glucose 120 H 127 H 148 H Lactic Acid Calcium Phosphorus Magnesium Ferritin AST ALT Ammonia Lactate Dehydrogenase Troponin T C-Reactive Protein Total Protein Albumin Triglycerides LDL Cholesterol Direct HDL Cholesterol Arterial Blood Glucose Arterial Blood Ionized Calcium Urine WBC (Auto) Urine Creatinine Vancomycin Trough Crossmatch 06/09/21 06/09/21 06/09/21 05:51 05:51 11:37 WBC 3.9 L RBC 3.38 L Hgb 9.4 L Hct 28.5 L MCV MCH MCHC RDW Plt Count Seg Neuts % (Manual) Lymphocytes % (Manual) Monocytes % (Manual) Nucleated RBC % Seg Neutrophils # Man Lymphocytes # (Manual) PT INR APTT D-Dimer ABG pH POC ABG pCO2 POC ABG pO2 ABG pO2 ABG HCO3 ABG O2 Saturation ABG Base Excess ABG Hemoglobin ABG Oxyhemoglobin ABG Sodium ABG Potassium ABG Chloride ABG Glucose VBG pH Oxyhemoglobin Carboxyhemoglobin Sodium Potassium Chloride 108.4 H Carbon Dioxide BUN 32 H Creatinine Glucose 137 H POC Glucose 115 H Lactic Acid Calcium 7.5 L Phosphorus Magnesium Ferritin AST 55 H ALT Ammonia Lactate Dehydrogenase Troponin T C-Reactive Protein 4.10 H Total Protein 5.6 L Albumin 2.0 L Triglycerides LDL Cholesterol Direct HDL Cholesterol Arterial Blood Glucose Arterial Blood Ionized Calcium Urine WBC (Auto) Urine Creatinine Vancomycin Trough Crossmatch 06/09/21 06/09/21 06/10/21 17:32 22:18 01:52 WBC RBC 3.62 L Hgb 9.9 L Hct 29.8 L MCV 82 L MCH 27 L MCHC RDW Plt Count Seg Neuts % (Manual) Lymphocytes % (Manual) Monocytes % (Manual) Nucleated RBC % Seg Neutrophils # Man Lymphocytes # (Manual) PT INR APTT D-Dimer ABG pH POC ABG pCO2 POC ABG pO2 ABG pO2 ABG HCO3 ABG O2 Saturation ABG Base Excess ABG Hemoglobin ABG Oxyhemoglobin ABG Sodium ABG Potassium ABG Chloride ABG Glucose VBG pH Oxyhemoglobin Carboxyhemoglobin Sodium Potassium Chloride Carbon Dioxide BUN Creatinine Glucose POC Glucose 113 H 110 H Lactic Acid Calcium Phosphorus Magnesium Ferritin AST ALT Ammonia Lactate Dehydrogenase Troponin T C-Reactive Protein Total Protein Albumin Triglycerides LDL Cholesterol Direct HDL Cholesterol Arterial Blood Glucose Arterial Blood Ionized Calcium Urine WBC (Auto) Urine Creatinine Vancomycin Trough Crossmatch 06/10/21 06/10/21 06/10/21 01:52 16:14 22:45 WBC RBC Hgb Hct MCV MCH MCHC RDW Plt Count Seg Neuts % (Manual) Lymphocytes % (Manual) Monocytes % (Manual) Nucleated RBC % Seg Neutrophils # Man Lymphocytes # (Manual) PT INR APTT D-Dimer ABG pH POC ABG pCO2 POC ABG pO2 ABG pO2 ABG HCO3 ABG O2 Saturation ABG Base Excess ABG Hemoglobin ABG Oxyhemoglobin ABG Sodium ABG Potassium ABG Chloride ABG Glucose VBG pH Oxyhemoglobin Carboxyhemoglobin Sodium Potassium Chloride 108.2 H Carbon Dioxide BUN 32 H Creatinine 1.4 H Glucose POC Glucose 111 H 107 H Lactic Acid Calcium 7.8 L Phosphorus Magnesium Ferritin AST 55 H ALT Ammonia Lactate Dehydrogenase Troponin T C-Reactive Protein Total Protein 5.6 L Albumin 1.9 L Triglycerides LDL Cholesterol Direct HDL Cholesterol Arterial Blood Glucose Arterial Blood Ionized Calcium Urine WBC (Auto) Urine Creatinine Vancomycin Trough Crossmatch 06/11/21 06/11/21 06/11/21 05:51 05:51 05:51 WBC RBC 3.35 L Hgb 9.1 L Hct 28.1 L MCV MCH 27 L MCHC RDW Plt Count 117 L Seg Neuts % (Manual) 93.0 H Lymphocytes % (Manual) 1.0 L Monocytes % (Manual) Nucleated RBC % Seg Neutrophils # Man Lymphocytes # (Manual) 0.0 L PT INR APTT D-Dimer ABG pH POC ABG pCO2 POC ABG pO2 ABG pO2 ABG HCO3 ABG O2 Saturation ABG Base Excess ABG Hemoglobin ABG Oxyhemoglobin ABG Sodium ABG Potassium ABG Chloride ABG Glucose VBG pH Oxyhemoglobin Carboxyhemoglobin Sodium 146 H Potassium Chloride 110.9 H Carbon Dioxide BUN 40 H Creatinine Glucose 119 H POC Glucose Lactic Acid Calcium 7.8 L Phosphorus Magnesium Ferritin AST ALT Ammonia Lactate Dehydrogenase Troponin T C-Reactive Protein Total Protein Albumin Triglycerides LDL Cholesterol Direct HDL Cholesterol Arterial Blood Glucose Arterial Blood Ionized Calcium Urine WBC (Auto) Urine Creatinine Vancomycin Trough 22.6 H Crossmatch 06/11/21 06/11/21 06/11/21 08:28 11:36 15:47 WBC RBC Hgb Hct MCV MCH MCHC RDW Plt Count Seg Neuts % (Manual) Lymphocytes % (Manual) Monocytes % (Manual) Nucleated RBC % Seg Neutrophils # Man Lymphocytes # (Manual) PT INR APTT D-Dimer ABG pH POC ABG pCO2 POC ABG pO2 ABG pO2 ABG HCO3 ABG O2 Saturation ABG Base Excess ABG Hemoglobin ABG Oxyhemoglobin ABG Sodium ABG Potassium ABG Chloride ABG Glucose VBG pH Oxyhemoglobin Carboxyhemoglobin Sodium Potassium Chloride Carbon Dioxide BUN Creatinine Glucose POC Glucose 109 H 149 H 139 H Lactic Acid Calcium Phosphorus Magnesium Ferritin AST ALT Ammonia Lactate Dehydrogenase Troponin T C-Reactive Protein Total Protein Albumin Triglycerides LDL Cholesterol Direct HDL Cholesterol Arterial Blood Glucose Arterial Blood Ionized Calcium Urine WBC (Auto) Urine Creatinine Vancomycin Trough Crossmatch 06/11/21 06/12/21 06/12/21 21:42 04:00 04:00 WBC 4.0 L RBC 3.50 L Hgb 9.4 L Hct 29.9 L MCV MCH 27 L MCHC 31 L RDW 15.3 H Plt Count 126 L Seg Neuts % (Manual) 88.0 H Lymphocytes % (Manual) Monocytes % (Manual) 12.0 H Nucleated RBC % Seg Neutrophils # Man Lymphocytes # (Manual) 0.0 L PT INR APTT D-Dimer ABG pH POC ABG pCO2 POC ABG pO2 ABG pO2 ABG HCO3 ABG O2 Saturation ABG Base Excess ABG Hemoglobin ABG Oxyhemoglobin ABG Sodium ABG Potassium ABG Chloride ABG Glucose VBG pH Oxyhemoglobin Carboxyhemoglobin Sodium 149 H Potassium Chloride 114.1 H Carbon Dioxide BUN 37 H Creatinine Glucose 137 H POC Glucose 124 H Lactic Acid Calcium 8.0 L Phosphorus Magnesium Ferritin AST ALT Ammonia Lactate Dehydrogenase Troponin T C-Reactive Protein Total Protein Albumin Triglycerides LDL Cholesterol Direct HDL Cholesterol Arterial Blood Glucose Arterial Blood Ionized Calcium Urine WBC (Auto) Urine Creatinine Vancomycin Trough Crossmatch 06/12/21 06/13/21 06/13/21 06:37 00:14 06:05 WBC 4.3 L RBC 3.39 L Hgb 9.2 L Hct 28.6 L MCV MCH 27 L MCHC RDW 15.3 H Plt Count 107 L Seg Neuts % (Manual) 77.0 H Lymphocytes % (Manual) 1.0 L Monocytes % (Manual) Nucleated RBC % 1.0 H Seg Neutrophils # Man Lymphocytes # (Manual) 0.0 L PT INR APTT D-Dimer ABG pH POC ABG pCO2 POC ABG pO2 ABG pO2 ABG HCO3 ABG O2 Saturation ABG Base Excess ABG Hemoglobin ABG Oxyhemoglobin ABG Sodium ABG Potassium ABG Chloride ABG Glucose VBG pH Oxyhemoglobin Carboxyhemoglobin Sodium Potassium Chloride Carbon Dioxide BUN Creatinine Glucose POC Glucose 128 H 149 H Lactic Acid Calcium Phosphorus Magnesium Ferritin AST ALT Ammonia Lactate Dehydrogenase Troponin T C-Reactive Protein Total Protein Albumin Triglycerides LDL Cholesterol Direct HDL Cholesterol Arterial Blood Glucose Arterial Blood Ionized Calcium Urine WBC (Auto) Urine Creatinine Vancomycin Trough Crossmatch 06/13/21 06/13/21 06/14/21 06:05 11:51 04:29 WBC 4.2 L RBC 3.21 L Hgb 8.7 L Hct 26.7 L MCV 83 L MCH 27 L MCHC RDW 15.3 H Plt Count 87 L Seg Neuts % (Manual) 96 H Lymphocytes % (Manual) 2 L Monocytes % (Manual) Nucleated RBC % Seg Neutrophils # Man Lymphocytes # (Manual) 0.0 L PT INR APTT D-Dimer ABG pH POC ABG pCO2 POC ABG pO2 48.3 L ABG pO2 ABG HCO3 ABG O2 Saturation ABG Base Excess ABG Hemoglobin 10.7 L ABG Oxyhemoglobin 84.1 L ABG Sodium 145.5 H ABG Potassium ABG Chloride 116.0 H ABG Glucose VBG pH Oxyhemoglobin Carboxyhemoglobin Sodium 146 H Potassium 3.5 L Chloride 112.3 H Carbon Dioxide BUN 38 H Creatinine Glucose 112 H POC Glucose Lactic Acid Calcium 8.1 L Phosphorus Magnesium Ferritin AST ALT Ammonia Lactate Dehydrogenase Troponin T C-Reactive Protein Total Protein Albumin Triglycerides LDL Cholesterol Direct HDL Cholesterol Arterial Blood Glucose Arterial Blood Ionized Calcium Urine WBC (Auto) Urine Creatinine Vancomycin Trough Crossmatch 06/14/21 06/14/21 06/14/21 04:29 06:17 23:51 WBC RBC Hgb Hct MCV MCH MCHC RDW Plt Count Seg Neuts % (Manual) Lymphocytes % (Manual) Monocytes % (Manual) Nucleated RBC % Seg Neutrophils # Man Lymphocytes # (Manual) PT INR APTT D-Dimer ABG pH POC ABG pCO2 POC ABG pO2 ABG pO2 ABG HCO3 ABG O2 Saturation ABG Base Excess ABG Hemoglobin ABG Oxyhemoglobin ABG Sodium ABG Potassium ABG Chloride ABG Glucose VBG pH Oxyhemoglobin Carboxyhemoglobin Sodium 148 H Potassium Chloride 115.3 H Carbon Dioxide BUN 40 H Creatinine Glucose 124 H POC Glucose 106 H 135 H Lactic Acid Calcium 8.2 L Phosphorus Magnesium Ferritin AST ALT Ammonia Lactate Dehydrogenase Troponin T C-Reactive Protein Total Protein Albumin Triglycerides LDL Cholesterol Direct HDL Cholesterol Arterial Blood Glucose Arterial Blood Ionized Calcium Urine WBC (Auto) Urine Creatinine Vancomycin Trough Crossmatch 06/15/21 06/15/21 06/15/21 05:23 05:53 05:53 WBC 3.8 L RBC 2.94 L Hgb 8.0 L Hct 24.0 L MCV 81 L MCH 27 L MCHC RDW 15.6 H Plt Count 87 L Seg Neuts % (Manual) 95.0 H Lymphocytes % (Manual) 1.0 L Monocytes % (Manual) Nucleated RBC % 1.0 H Seg Neutrophils # Man Lymphocytes # (Manual) 0.0 L PT INR APTT D-Dimer ABG pH POC ABG pCO2 POC ABG pO2 ABG pO2 ABG HCO3 ABG O2 Saturation ABG Base Excess ABG Hemoglobin ABG Oxyhemoglobin ABG Sodium ABG Potassium ABG Chloride ABG Glucose VBG pH Oxyhemoglobin Carboxyhemoglobin Sodium Potassium Chloride 110.5 H Carbon Dioxide BUN 43 H Creatinine Glucose 143 H POC Glucose 134 H Lactic Acid Calcium 8.1 L Phosphorus 2.10 L D Magnesium Ferritin AST ALT Ammonia Lactate Dehydrogenase Troponin T C-Reactive Protein Total Protein Albumin Triglycerides LDL Cholesterol Direct HDL Cholesterol Arterial Blood Glucose Arterial Blood Ionized Calcium Urine WBC (Auto) Urine Creatinine Vancomycin Trough Crossmatch 06/16/21 06/16/21 06/16/21 05:22 05:59 05:59 WBC 3.4 L RBC 3.34 L Hgb 9.0 L Hct 27.9 L MCV MCH 27 L MCHC RDW 15.5 H Plt Count 72 L Seg Neuts % (Manual) 97.0 H Lymphocytes % (Manual) Monocytes % (Manual) Nucleated RBC % Seg Neutrophils # Stefan Lymphocytes # (Manual) 0.0 L PT INR APTT D-Dimer ABG pH POC ABG pCO2 POC ABG pO2 ABG pO2 ABG HCO3 ABG O2 Saturation ABG Base Excess ABG Hemoglobin ABG Oxyhemoglobin ABG Sodium ABG Potassium ABG Chloride ABG Glucose VBG pH Oxyhemoglobin Carboxyhemoglobin Sodium Potassium Chloride 108.8 H Carbon Dioxide BUN 53 H Creatinine 1.4 H Glucose 160 H POC Glucose 141 H Lactic Acid Calcium 8.1 L Phosphorus Magnesium Ferritin AST ALT Ammonia Lactate Dehydrogenase Troponin T C-Reactive Protein Total Protein Albumin Triglycerides LDL Cholesterol Direct HDL Cholesterol Arterial Blood Glucose Arterial Blood Ionized Calcium Urine WBC (Auto) Urine Creatinine Vancomycin Trough Crossmatch 06/16/21 06/16/21 06/17/21 11:31 17:08 06:25 WBC 4.4 L RBC 3.14 L Hgb 8.5 L Hct 25.7 L MCV 82 L MCH 27 L MCHC RDW 15.7 H Plt Count 64 L Seg Neuts % (Manual) 95.0 H Lymphocytes % (Manual) Monocytes % (Manual) Nucleated RBC % Seg Neutrophils # Stefan Lymphocytes # (Manual) 0.0 L PT INR APTT D-Dimer ABG pH POC ABG pCO2 POC ABG pO2 ABG pO2 ABG HCO3 ABG O2 Saturation ABG Base Excess ABG Hemoglobin ABG Oxyhemoglobin ABG Sodium ABG Potassium ABG Chloride ABG Glucose VBG pH Oxyhemoglobin Carboxyhemoglobin Sodium Potassium Chloride Carbon Dioxide BUN Creatinine Glucose POC Glucose 129 H 136 H Lactic Acid Calcium Phosphorus Magnesium Ferritin AST ALT Ammonia Lactate Dehydrogenase Troponin T C-Reactive Protein Total Protein Albumin Triglycerides LDL Cholesterol Direct HDL Cholesterol Arterial Blood Glucose Arterial Blood Ionized Calcium Urine WBC (Auto) Urine Creatinine Vancomycin Trough Crossmatch 06/17/21 06/17/21 06/17/21 06:25 18:19 18:38 WBC RBC Hgb Hct MCV MCH MCHC RDW Plt Count Seg Neuts % (Manual) Lymphocytes % (Manual) Monocytes % (Manual) Nucleated RBC % Seg Neutrophils # Man Lymphocytes # (Manual) PT INR APTT D-Dimer ABG pH 7.184 L POC ABG pCO2 65.8 H POC ABG pO2 130.5 H ABG pO2 ABG HCO3 ABG O2 Saturation ABG Base Excess ABG Hemoglobin 10.2 L ABG Oxyhemoglobin ABG Sodium ABG Potassium ABG Chloride 108.0 H ABG Glucose 229 H VBG pH Oxyhemoglobin Carboxyhemoglobin Sodium Potassium Chloride Carbon Dioxide BUN 62 H Creatinine Glucose 135 H POC Glucose 206 H Lactic Acid Calcium 7.8 L Phosphorus Magnesium Ferritin AST ALT Ammonia Lactate Dehydrogenase Troponin T C-Reactive Protein Total Protein Albumin Triglycerides LDL Cholesterol Direct HDL Cholesterol Arterial Blood Glucose 229 H Arterial Blood Ionized Calcium Urine WBC (Auto) Urine Creatinine Vancomycin Trough Crossmatch 06/18/21 06/18/21 06/18/21 00:29 05:15 10:56 WBC RBC Hgb Hct MCV MCH MCHC RDW Plt Count Seg Neuts % (Manual) Lymphocytes % (Manual) Monocytes % (Manual) Nucleated RBC % Seg Neutrophils # Man Lymphocytes # (Manual) PT INR APTT D-Dimer ABG pH POC ABG pCO2 POC ABG pO2 ABG pO2 ABG HCO3 ABG O2 Saturation ABG Base Excess ABG Hemoglobin ABG Oxyhemoglobin ABG Sodium ABG Potassium ABG Chloride ABG Glucose VBG pH Oxyhemoglobin Carboxyhemoglobin Sodium Potassium Chloride Carbon Dioxide BUN Creatinine Glucose POC Glucose 142 H 152 H Lactic Acid Calcium Phosphorus 5.60 H D Magnesium Ferritin AST ALT Ammonia Lactate Dehydrogenase Troponin T C-Reactive Protein Total Protein Albumin Triglycerides LDL Cholesterol Direct HDL Cholesterol Arterial Blood Glucose Arterial Blood Ionized Calcium Urine WBC (Auto) Urine Creatinine Vancomycin Trough Crossmatch 06/18/21 06/18/21 06/18/21 15:02 15:02 15:02 WBC 4.4 L RBC 3.39 L Hgb 9.7 L Hct 28.4 L MCV MCH MCHC RDW 16.3 H Plt Count 65 L Seg Neuts % (Manual) Lymphocytes % (Manual) Monocytes % (Manual) Nucleated RBC % Seg Neutrophils # Man Lymphocytes # (Manual) PT 15.6 H INR APTT 41.2 H D-Dimer ABG pH POC ABG pCO2 POC ABG pO2 ABG pO2 ABG HCO3 ABG O2 Saturation ABG Base Excess ABG Hemoglobin ABG Oxyhemoglobin ABG Sodium ABG Potassium ABG Chloride ABG Glucose VBG pH Oxyhemoglobin Carboxyhemoglobin Sodium Potassium Chloride Carbon Dioxide BUN Creatinine 2.0 H Glucose POC Glucose Lactic Acid Calcium Phosphorus Magnesium Ferritin AST ALT Ammonia Lactate Dehydrogenase Troponin T C-Reactive Protein Total Protein Albumin Triglycerides LDL Cholesterol Direct HDL Cholesterol Arterial Blood Glucose Arterial Blood Ionized Calcium Urine WBC (Auto) Urine Creatinine Vancomycin Trough Crossmatch 06/18/21 06/18/21 06/18/21 Unknown Unknown Unknown WBC 4.0 L RBC 2.72 L Hgb 8.0 L Hct 24.0 L MCV MCH MCHC RDW 17.2 H Plt Count 60 L Seg Neuts % (Manual) Lymphocytes % (Manual) Monocytes % (Manual) Nucleated RBC % Seg Neutrophils # Man Lymphocytes # (Manual) PT INR APTT D-Dimer ABG pH POC ABG pCO2 POC ABG pO2 ABG pO2 ABG HCO3 ABG O2 Saturation ABG Base Excess ABG Hemoglobin ABG Oxyhemoglobin ABG Sodium ABG Potassium ABG Chloride ABG Glucose VBG pH Oxyhemoglobin Carboxyhemoglobin Sodium 134 L D Potassium 6.0 H D Chloride Carbon Dioxide BUN 80 H Creatinine 1.8 H Glucose 395 H POC Glucose Lactic Acid Calcium 6.9 L Phosphorus Magnesium Ferritin AST < 5 L ALT < 5 L Ammonia Lactate Dehydrogenase Troponin T C-Reactive Protein Total Protein 4.9 L Albumin 1.4 L Triglycerides LDL Cholesterol Direct HDL Cholesterol Arterial Blood Glucose Arterial Blood Ionized Calcium Urine WBC (Auto) 10.0 H Urine Creatinine Vancomycin Trough Crossmatch 06/19/21 06/19/21 06/19/21 02:41 04:53 05:37 WBC RBC Hgb Hct MCV MCH MCHC RDW Plt Count Seg Neuts % (Manual) Lymphocytes % (Manual) Monocytes % (Manual) Nucleated RBC % Seg Neutrophils # Man Lymphocytes # (Manual) PT INR APTT D-Dimer ABG pH 7.270 L POC ABG pCO2 49.0 H POC ABG pO2 ABG pO2 ABG HCO3 ABG O2 Saturation ABG Base Excess ABG Hemoglobin 8.8 L ABG Oxyhemoglobin ABG Sodium ABG Potassium ABG Chloride 111.0 H ABG Glucose 110 H VBG pH Oxyhemoglobin Carboxyhemoglobin Sodium Potassium Chloride Carbon Dioxide BUN 92 H Creatinine 3.2 H D Glucose 123 H POC Glucose 114 H Lactic Acid Calcium 7.4 L Phosphorus Magnesium Ferritin AST ALT Ammonia Lactate Dehydrogenase Troponin T C-Reactive Protein Total Protein Albumin Triglycerides LDL Cholesterol Direct HDL Cholesterol Arterial Blood Glucose 110 H Arterial Blood Ionized Calcium Urine WBC (Auto) Urine Creatinine Vancomycin Trough Crossmatch 06/19/21 06/19/21 06/19/21 08:55 09:37 09:41 WBC RBC 2.91 L Hgb 7.9 L Hct 24.4 L MCV MCH 27 L MCHC RDW 16.5 H Plt Count 64 L Seg Neuts % (Manual) Lymphocytes % (Manual) Monocytes % (Manual) Nucleated RBC % Seg Neutrophils # Man Lymphocytes # (Manual) PT 19.2 H INR 1.46 H APTT 54.3 H D-Dimer ABG pH POC ABG pCO2 POC ABG pO2 ABG pO2 ABG HCO3 ABG O2 Saturation ABG Base Excess ABG Hemoglobin ABG Oxyhemoglobin ABG Sodium ABG Potassium ABG Chloride ABG Glucose VBG pH Oxyhemoglobin Carboxyhemoglobin Sodium 146 H Potassium Chloride Carbon Dioxide BUN Creatinine 3.5 H Glucose POC Glucose Lactic Acid Calcium Phosphorus Magnesium Ferritin AST ALT Ammonia Lactate Dehydrogenase Troponin T C-Reactive Protein Total Protein Albumin Triglycerides LDL Cholesterol Direct HDL Cholesterol Arterial Blood Glucose Arterial Blood Ionized Calcium Urine WBC (Auto) Urine Creatinine Vancomycin Trough Crossmatch 06/19/21 06/19/21 06/19/21 11:14 12:19 16:15 WBC RBC Hgb Hct MCV MCH MCHC RDW Plt Count Seg Neuts % (Manual) Lymphocytes % (Manual) Monocytes % (Manual) Nucleated RBC % Seg Neutrophils # Man Lymphocytes # (Manual) PT INR APTT D-Dimer ABG pH POC ABG pCO2 POC ABG pO2 ABG pO2 ABG HCO3 ABG O2 Saturation ABG Base Excess ABG Hemoglobin ABG Oxyhemoglobin ABG Sodium ABG Potassium ABG Chloride ABG Glucose VBG pH Oxyhemoglobin Carboxyhemoglobin Sodium Potassium Chloride Carbon Dioxide BUN Creatinine Glucose POC Glucose Lactic Acid Calcium Phosphorus Magnesium Ferritin AST ALT Ammonia Lactate Dehydrogenase Troponin T 0.109 H* C-Reactive Protein 11.50 H Total Protein Albumin Triglycerides 295 H LDL Cholesterol Direct 24 L HDL Cholesterol 17 L Arterial Blood Glucose Arterial Blood Ionized Calcium Urine WBC (Auto) Urine Creatinine 49.9 H Vancomycin Trough Crossmatch 06/19/21 06/19/21 06/20/21 18:05 22:40 05:00 WBC 4.1 L RBC 2.66 L Hgb 7.3 L Hct 22.5 L MCV MCH MCHC RDW 16.9 H Plt Count 60 L Seg Neuts % (Manual) Lymphocytes % (Manual) Monocytes % (Manual) Nucleated RBC % Seg Neutrophils # Man Lymphocytes # (Manual) PT INR APTT D-Dimer ABG pH POC ABG pCO2 POC ABG pO2 ABG pO2 ABG HCO3 ABG O2 Saturation ABG Base Excess ABG Hemoglobin ABG Oxyhemoglobin ABG Sodium ABG Potassium ABG Chloride ABG Glucose VBG pH Oxyhemoglobin Carboxyhemoglobin Sodium Potassium Chloride Carbon Dioxide BUN Creatinine Glucose POC Glucose 131 H 121 H Lactic Acid Calcium Phosphorus Magnesium Ferritin AST ALT Ammonia Lactate Dehydrogenase Troponin T C-Reactive Protein Total Protein Albumin Triglycerides LDL Cholesterol Direct HDL Cholesterol Arterial Blood Glucose Arterial Blood Ionized Calcium Urine WBC (Auto) Urine Creatinine Vancomycin Trough Crossmatch 06/20/21 06/20/21 06/20/21 05:00 05:00 05:17 WBC RBC Hgb Hct MCV MCH MCHC RDW Plt Count Seg Neuts % (Manual) Lymphocytes % (Manual) Monocytes % (Manual) Nucleated RBC % Seg Neutrophils # Man Lymphocytes # (Manual) PT INR APTT D-Dimer ABG pH POC ABG pCO2 POC ABG pO2 ABG pO2 ABG HCO3 ABG O2 Saturation ABG Base Excess ABG Hemoglobin ABG Oxyhemoglobin ABG Sodium ABG Potassium ABG Chloride ABG Glucose VBG pH Oxyhemoglobin Carboxyhemoglobin Sodium Potassium Chloride 111.6 H Carbon Dioxide 20 L BUN 108 H Creatinine 4.3 H Glucose 152 H POC Glucose 137 H Lactic Acid Calcium 7.1 L Phosphorus Magnesium Ferritin AST ALT Ammonia Lactate Dehydrogenase Troponin T 0.105 H* C-Reactive Protein Total Protein Albumin Triglycerides LDL Cholesterol Direct HDL Cholesterol Arterial Blood Glucose Arterial Blood Ionized Calcium Urine WBC (Auto) Urine Creatinine Vancomycin Trough Crossmatch 06/20/21 06/20/21 06/20/21 11:40 12:35 13:26 WBC RBC Hgb Hct MCV MCH MCHC RDW Plt Count Seg Neuts % (Manual) Lymphocytes % (Manual) Monocytes % (Manual) Nucleated RBC % Seg Neutrophils # Man Lymphocytes # (Manual) PT INR APTT D-Dimer ABG pH 6.994 L POC ABG pCO2 70.2 H POC ABG pO2 ABG pO2 ABG HCO3 ABG O2 Saturation ABG Base Excess ABG Hemoglobin 8.1 L ABG Oxyhemoglobin ABG Sodium ABG Potassium ABG Chloride 111.0 H ABG Glucose 207 H VBG pH Oxyhemoglobin Carboxyhemoglobin Sodium Potassium Chloride Carbon Dioxide BUN Creatinine Glucose POC Glucose 186 H Lactic Acid Calcium Phosphorus Magnesium Ferritin AST ALT Ammonia Lactate Dehydrogenase Troponin T C-Reactive Protein Total Protein Albumin Triglycerides LDL Cholesterol Direct HDL Cholesterol Arterial Blood Glucose 207 H Arterial Blood Ionized Calcium Urine WBC (Auto) 46.0 H Urine Creatinine Vancomycin Trough Crossmatch 06/20/21 06/20/21 06/20/21 13:54 13:54 17:38 WBC RBC 2.26 L Hgb 6.1 L Hct 19.6 L* MCV MCH 27 L MCHC RDW 17.6 H Plt Count 65 L Seg Neuts % (Manual) Lymphocytes % (Manual) Monocytes % (Manual) Nucleated RBC % Seg Neutrophils # Man Lymphocytes # (Manual) PT INR APTT D-Dimer ABG pH POC ABG pCO2 POC ABG pO2 ABG pO2 ABG HCO3 ABG O2 Saturation ABG Base Excess ABG Hemoglobin ABG Oxyhemoglobin ABG Sodium ABG Potassium ABG Chloride ABG Glucose VBG pH Oxyhemoglobin Carboxyhemoglobin Sodium 147 H Potassium 3.0 L D Chloride Carbon Dioxide 33 H D BUN 90 H Creatinine 3.3 H Glucose 771 H* POC Glucose 198 H Lactic Acid Calcium 5.3 L* D Phosphorus Magnesium Ferritin AST 41 H ALT Ammonia Lactate Dehydrogenase Troponin T C-Reactive Protein Total Protein 3.5 L D Albumin 1.0 L Triglycerides LDL Cholesterol Direct HDL Cholesterol Arterial Blood Glucose Arterial Blood Ionized Calcium Urine WBC (Auto) Urine Creatinine Vancomycin Trough Crossmatch 06/20/21 06/20/21 06/20/21 18:00 18:09 22:38 WBC RBC Hgb Hct MCV MCH MCHC RDW Plt Count Seg Neuts % (Manual) Lymphocytes % (Manual) Monocytes % (Manual) Nucleated RBC % Seg Neutrophils # Man Lymphocytes # (Manual) PT INR APTT D-Dimer ABG pH 7.189 L* POC ABG pCO2 POC ABG pO2 ABG pO2 209.0 H ABG HCO3 26.1 H ABG O2 Saturation 99.1 H ABG Base Excess -2.3 L ABG Hemoglobin 7.4 L ABG Oxyhemoglobin ABG Sodium ABG Potassium ABG Chloride ABG Glucose VBG pH Oxyhemoglobin Carboxyhemoglobin Sodium Potassium Chloride Carbon Dioxide BUN Creatinine Glucose POC Glucose 151 H Lactic Acid Calcium Phosphorus Magnesium Ferritin AST ALT Ammonia Lactate Dehydrogenase Troponin T C-Reactive Protein Total Protein Albumin Triglycerides LDL Cholesterol Direct HDL Cholesterol Arterial Blood Glucose Arterial Blood Ionized Calcium Urine WBC (Auto) Urine Creatinine Vancomycin Trough Crossmatch See Detail 06/20/21 06/21/21 06/21/21 23:12 04:21 05:36 WBC RBC Hgb Hct MCV MCH MCHC RDW Plt Count Seg Neuts % (Manual) Lymphocytes % (Manual) Monocytes % (Manual) Nucleated RBC % Seg Neutrophils # Man Lymphocytes # (Manual) PT INR APTT D-Dimer ABG pH 7.31 L POC ABG pCO2 55.4 H POC ABG pO2 156.5 H ABG pO2 ABG HCO3 ABG O2 Saturation ABG Base Excess ABG Hemoglobin 9.0 L ABG Oxyhemoglobin ABG Sodium ABG Potassium 3.3 L ABG Chloride ABG Glucose VBG pH Oxyhemoglobin Carboxyhemoglobin Sodium Potassium Chloride Carbon Dioxide BUN Creatinine Glucose POC Glucose 184 H 128 H Lactic Acid Calcium Phosphorus Magnesium Ferritin AST ALT Ammonia Lactate Dehydrogenase Troponin T C-Reactive Protein Total Protein Albumin Triglycerides LDL Cholesterol Direct HDL Cholesterol Arterial Blood Glucose Arterial Blood Ionized Calcium Urine WBC (Auto) Urine Creatinine Vancomycin Trough Crossmatch 06/21/21 06/21/21 06/21/21 07:45 07:45 07:45 WBC 3.3 L RBC 3.08 L Hgb 8.7 L Hct 25.6 L D MCV 83 L MCH MCHC RDW 16.2 H Plt Count 49 L Seg Neuts % (Manual) Lymphocytes % (Manual) Monocytes % (Manual) Nucleated RBC % Seg Neutrophils # Man Lymphocytes # (Manual) PT INR APTT D-Dimer ABG pH POC ABG pCO2 POC ABG pO2 ABG pO2 ABG HCO3 ABG O2 Saturation ABG Base Excess ABG Hemoglobin ABG Oxyhemoglobin ABG Sodium ABG Potassium ABG Chloride ABG Glucose VBG pH Oxyhemoglobin Carboxyhemoglobin Sodium Potassium 3.5 L 3.5 L Chloride 108.0 H 107.4 H Carbon Dioxide BUN 86 H 84 H Creatinine 3.5 H 3.4 H Glucose 157 H 158 H POC Glucose Lactic Acid Calcium 7.4 L D 7.6 L Phosphorus Magnesium Ferritin AST 51 H ALT Ammonia Lactate Dehydrogenase Troponin T C-Reactive Protein Total Protein 3.9 L Albumin 1.3 L Triglycerides LDL Cholesterol Direct HDL Cholesterol Arterial Blood Glucose Arterial Blood Ionized Calcium Urine WBC (Auto) Urine Creatinine Vancomycin Trough Crossmatch 06/21/21 06/21/21 06/21/21 11:46 17:28 23:46 WBC RBC Hgb Hct MCV MCH MCHC RDW Plt Count Seg Neuts % (Manual) Lymphocytes % (Manual) Monocytes % (Manual) Nucleated RBC % Seg Neutrophils # Man Lymphocytes # (Manual) PT INR APTT D-Dimer ABG pH POC ABG pCO2 POC ABG pO2 ABG pO2 ABG HCO3 ABG O2 Saturation ABG Base Excess ABG Hemoglobin ABG Oxyhemoglobin ABG Sodium ABG Potassium ABG Chloride ABG Glucose VBG pH Oxyhemoglobin Carboxyhemoglobin Sodium Potassium Chloride Carbon Dioxide BUN Creatinine Glucose POC Glucose 130 H 111 H 109 H Lactic Acid Calcium Phosphorus Magnesium Ferritin AST ALT Ammonia Lactate Dehydrogenase Troponin T C-Reactive Protein Total Protein Albumin Triglycerides LDL Cholesterol Direct HDL Cholesterol Arterial Blood Glucose Arterial Blood Ionized Calcium Urine WBC (Auto) Urine Creatinine Vancomycin Trough Crossmatch 06/22/21 06/22/21 06/22/21 04:57 04:57 09:42 WBC 2.8 L RBC 2.86 L Hgb 8.2 L Hct 24.1 L MCV MCH MCHC RDW 16.2 H Plt Count 27 L Seg Neuts % (Manual) Lymphocytes % (Manual) Monocytes % (Manual) Nucleated RBC % Seg Neutrophils # Man Lymphocytes # (Manual) PT INR APTT D-Dimer ABG pH 7.249 L POC ABG pCO2 62.9 H POC ABG pO2 74.4 L ABG pO2 ABG HCO3 ABG O2 Saturation ABG Base Excess ABG Hemoglobin 8.4 L ABG Oxyhemoglobin 92.3 L ABG Sodium 134.4 L ABG Potassium 3.2 L ABG Chloride ABG Glucose 116 H VBG pH Oxyhemoglobin Carboxyhemoglobin Sodium 136 L D Potassium Chloride Carbon Dioxide BUN 61 H Creatinine 3.2 H Glucose 115 H POC Glucose Lactic Acid Calcium 7.4 L Phosphorus Magnesium Ferritin AST ALT Ammonia Lactate Dehydrogenase Troponin T C-Reactive Protein Total Protein Albumin Triglycerides LDL Cholesterol Direct HDL Cholesterol Arterial Blood Glucose 116 H Arterial Blood Ionized Calcium Urine WBC (Auto) Urine Creatinine Vancomycin Trough Crossmatch 06/22/21 06/23/21 06/23/21 11:03 04:40 04:40 WBC 2.5 L RBC 2.74 L Hgb 7.9 L Hct 23.1 L MCV MCH MCHC RDW 16.5 H Plt Count 28 L Seg Neuts % (Manual) Lymphocytes % (Manual) Monocytes % (Manual) Nucleated RBC % Seg Neutrophils # Man Lymphocytes # (Manual) PT INR APTT D-Dimer ABG pH POC ABG pCO2 POC ABG pO2 ABG pO2 ABG HCO3 ABG O2 Saturation ABG Base Excess ABG Hemoglobin ABG Oxyhemoglobin ABG Sodium ABG Potassium ABG Chloride ABG Glucose VBG pH Oxyhemoglobin Carboxyhemoglobin Sodium Potassium Chloride Carbon Dioxide BUN 77 H Creatinine 4.1 H Glucose POC Glucose 106 H Lactic Acid Calcium 7.3 L Phosphorus Magnesium Ferritin AST ALT Ammonia Lactate Dehydrogenase Troponin T C-Reactive Protein Total Protein Albumin Triglycerides LDL Cholesterol Direct HDL Cholesterol Arterial Blood Glucose Arterial Blood Ionized Calcium Urine WBC (Auto) Urine Creatinine Vancomycin Trough Crossmatch 06/23/21 06/23/21 06/23/21 04:40 12:25 17:57 WBC RBC Hgb Hct MCV MCH MCHC RDW Plt Count Seg Neuts % (Manual) Lymphocytes % (Manual) Monocytes % (Manual) Nucleated RBC % Seg Neutrophils # Man Lymphocytes # (Manual) PT INR APTT D-Dimer ABG pH 7.204 L POC ABG pCO2 63.9 H POC ABG pO2 68.2 L ABG pO2 ABG HCO3 ABG O2 Saturation ABG Base Excess ABG Hemoglobin 7.8 L ABG Oxyhemoglobin 88.8 L ABG Sodium 132.0 L ABG Potassium ABG Chloride ABG Glucose 100 H VBG pH Oxyhemoglobin Carboxyhemoglobin Sodium Potassium Chloride Carbon Dioxide BUN Creatinine Glucose POC Glucose 120 H 111 H Lactic Acid Calcium Phosphorus Magnesium Ferritin AST ALT Ammonia Lactate Dehydrogenase Troponin T C-Reactive Protein Total Protein Albumin Triglycerides LDL Cholesterol Direct HDL Cholesterol Arterial Blood Glucose 100 H Arterial Blood Ionized Calcium Urine WBC (Auto) Urine Creatinine Vancomycin Trough Crossmatch 06/24/21 06/24/21 06/24/21 04:00 05:00 05:00 WBC 1.9 L* RBC 2.73 L Hgb 7.8 L Hct 22.9 L MCV MCH MCHC RDW 16.6 H Plt Count 19 L* Seg Neuts % (Manual) Lymphocytes % (Manual) Monocytes % (Manual) Nucleated RBC % Seg Neutrophils # Man Lymphocytes # (Manual) PT INR APTT D-Dimer ABG pH 7.238 L POC ABG pCO2 53.8 H POC ABG pO2 53.1 L ABG pO2 ABG HCO3 ABG O2 Saturation ABG Base Excess ABG Hemoglobin 7.7 L ABG Oxyhemoglobin 83.8 L ABG Sodium 130.5 L ABG Potassium ABG Chloride ABG Glucose VBG pH Oxyhemoglobin Carboxyhemoglobin Sodium 134 L Potassium 3.3 L Chloride Carbon Dioxide BUN 82 H Creatinine 4.3 H Glucose 73 L POC Glucose Lactic Acid Calcium 7.2 L Phosphorus Magnesium Ferritin AST ALT Ammonia Lactate Dehydrogenase Troponin T C-Reactive Protein Total Protein Albumin Triglycerides 557 H LDL Cholesterol Direct HDL Cholesterol Arterial Blood Glucose Arterial Blood Ionized Calcium Urine WBC (Auto) Urine Creatinine Vancomycin Trough Crossmatch 06/24/21 06/24/21 06/24/21 05:00 05:16 12:28 WBC RBC Hgb Hct MCV MCH MCHC RDW Plt Count Seg Neuts % (Manual) Lymphocytes % (Manual) Monocytes % (Manual) Nucleated RBC % Seg Neutrophils # Man Lymphocytes # (Manual) PT INR APTT D-Dimer ABG pH POC ABG pCO2 POC ABG pO2 ABG pO2 ABG HCO3 ABG O2 Saturation ABG Base Excess ABG Hemoglobin ABG Oxyhemoglobin ABG Sodium ABG Potassium ABG Chloride ABG Glucose VBG pH Oxyhemoglobin Carboxyhemoglobin Sodium Potassium Chloride Carbon Dioxide BUN Creatinine Glucose POC Glucose 61 L 68 L Lactic Acid Calcium Phosphorus 5.40 H Magnesium 1.60 L Ferritin AST ALT Ammonia Lactate Dehydrogenase Troponin T C-Reactive Protein Total Protein Albumin Triglycerides LDL Cholesterol Direct HDL Cholesterol Arterial Blood Glucose Arterial Blood Ionized Calcium Urine WBC (Auto) Urine Creatinine Vancomycin Trough Crossmatch 06/24/21 06/25/21 06/25/21 23:05 04:50 05:08 WBC RBC Hgb Hct MCV MCH MCHC RDW Plt Count Seg Neuts % (Manual) Lymphocytes % (Manual) Monocytes % (Manual) Nucleated RBC % Seg Neutrophils # Man Lymphocytes # (Manual) PT INR APTT D-Dimer ABG pH 6.989 L* POC ABG pCO2 POC ABG pO2 ABG pO2 64.2 L ABG HCO3 19.8 L ABG O2 Saturation 83 L ABG Base Excess -12.0 L ABG Hemoglobin 9.8 L ABG Oxyhemoglobin ABG Sodium ABG Potassium ABG Chloride ABG Glucose VBG pH Oxyhemoglobin 80.8 L Carboxyhemoglobin Sodium Potassium Chloride Carbon Dioxide BUN Creatinine Glucose POC Glucose 69 L 62 L Lactic Acid Calcium Phosphorus Magnesium Ferritin AST ALT Ammonia Lactate Dehydrogenase Troponin T C-Reactive Protein Total Protein Albumin Triglycerides LDL Cholesterol Direct HDL Cholesterol Arterial Blood Glucose Arterial Blood Ionized Calcium Urine WBC (Auto) Urine Creatinine Vancomycin Trough Crossmatch 06/25/21 06/25/21 06/25/21 05:46 08:46 10:20 WBC RBC Hgb Hct MCV MCH MCHC RDW Plt Count Seg Neuts % (Manual) Lymphocytes % (Manual) Monocytes % (Manual) Nucleated RBC % Seg Neutrophils # Man Lymphocytes # (Manual) PT INR APTT D-Dimer ABG pH 7.195 L* POC ABG pCO2 POC ABG pO2 ABG pO2 71.0 L ABG HCO3 ABG O2 Saturation ABG Base Excess -7.1 L ABG Hemoglobin 8.6 L ABG Oxyhemoglobin ABG Sodium ABG Potassium ABG Chloride ABG Glucose VBG pH Oxyhemoglobin 93.2 L Carboxyhemoglobin Sodium Potassium Chloride Carbon Dioxide BUN Creatinine Glucose POC Glucose 107 H 51 L Lactic Acid Calcium Phosphorus Magnesium Ferritin AST ALT Ammonia Lactate Dehydrogenase Troponin T C-Reactive Protein Total Protein Albumin Triglycerides LDL Cholesterol Direct HDL Cholesterol Arterial Blood Glucose Arterial Blood Ionized Calcium Urine WBC (Auto) Urine Creatinine Vancomycin Trough Crossmatch 06/25/21 06/25/21 06/25/21 11:44 Unknown Unknown WBC 2.3 L RBC 2.84 L Hgb 7.6 L Hct 24.3 L MCV MCH 27 L MCHC 31 L RDW 18.0 H Plt Count 51 L D Seg Neuts % (Manual) Lymphocytes % (Manual) Monocytes % (Manual) Nucleated RBC % 6.0 H Seg Neutrophils # Man 1.5 L Lymphocytes # (Manual) 0.3 L PT INR APTT D-Dimer ABG pH POC ABG pCO2 POC ABG pO2 ABG pO2 ABG HCO3 ABG O2 Saturation ABG Base Excess ABG Hemoglobin ABG Oxyhemoglobin ABG Sodium ABG Potassium ABG Chloride ABG Glucose VBG pH Oxyhemoglobin Carboxyhemoglobin Sodium 135 L Potassium Chloride Carbon Dioxide 18 L BUN 88 H Creatinine 4.8 H Glucose POC Glucose 58 L Lactic Acid Calcium 6.9 L Phosphorus Magnesium Ferritin AST ALT Ammonia Lactate Dehydrogenase Troponin T C-Reactive Protein Total Protein Albumin Triglycerides LDL Cholesterol Direct HDL Cholesterol Arterial Blood Glucose Arterial Blood Ionized Calcium Urine WBC (Auto) Urine Creatinine Vancomycin Trough Crossmatch 06/25/21 Unknown WBC RBC Hgb Hct MCV MCH MCHC RDW Plt Count Seg Neuts % (Manual) Lymphocytes % (Manual) Monocytes % (Manual) Nucleated RBC % Seg Neutrophils # Man Lymphocytes # (Manual) PT INR APTT D-Dimer ABG pH POC ABG pCO2 POC ABG pO2 ABG pO2 ABG HCO3 ABG O2 Saturation ABG Base Excess ABG Hemoglobin ABG Oxyhemoglobin ABG Sodium ABG Potassium ABG Chloride ABG Glucose VBG pH Oxyhemoglobin Carboxyhemoglobin Sodium Potassium Chloride Carbon Dioxide BUN Creatinine Glucose POC Glucose Lactic Acid Calcium Phosphorus 6.30 H Magnesium Ferritin AST ALT Ammonia Lactate Dehydrogenase Troponin T C-Reactive Protein Total Protein Albumin Triglycerides LDL Cholesterol Direct HDL Cholesterol Arterial Blood Glucose Arterial Blood Ionized Calcium Urine WBC (Auto) Urine Creatinine Vancomycin Trough Crossmatch Allied health notes reviewed: nursing
--- NOTE | 2021-06-25 14:25 | Progress Note ---
Assessment and Plan Suspect physiologic sinus tachycardia in the setting of sepsis/shock. Not a candiate for anticougulation secondary to anemia and thrombocytopenia. Patient currently on pressors Poor prognosis. Will continue to follow Patient seen in conjunction with Dr. Singh who agrees with this plan of care. Will continue to follow - Patient Problems (1) ANGELES (acute kidney injury) Current Visit: Yes Status: Acute (2) Abscess of left lung with pneumonia Current Visit: Yes Status: Acute (3) Acute respiratory failure with hypoxia Current Visit: Yes Status: Acute (4) Anemia Current Visit: Yes Status: Acute (5) Bilateral pneumonia Current Visit: Yes Status: Acute (6) Failure to thrive Current Visit: Yes Status: Acute Qualifiers: Failure to thrive age range: in adult Qualified Code(s): R62.7 - Adult failure to thrive (7) NSTEMI (non-ST elevated myocardial infarction) Current Visit: Yes Status: Acute (8) Sinus tachycardia Current Visit: Yes Status: Acute (9) History of CVA (cerebrovascular accident) Current Visit: Yes Status: Chronic Subjective Date of service: 06/25/21 Principal diagnosis: Acute hypoxemic resp failure; Pneumonia; PUI COVID-19 infection Interval history: Patient remains intubated Sinus tach trending 120s -130s Objective Vital Signs Temp Pulse Pulse Pulse Resp Resp BP 06/25/21 12:00 98.4 F 06/25/21 10:00 131 H 29 H 88/49 06/25/21 07:26 100.0 F H 06/25/21 07:00 131 H 29 H 88/49 06/25/21 06:45 131 H 30 H 91/48 06/25/21 06:30 131 H 31 H 93/49 06/25/21 06:15 131 H 31 H 95/51 06/25/21 06:00 130 H 30 H 109/52 06/25/21 05:46 128 H 32 H 101/56 06/25/21 05:31 126 H 30 H 88/55 06/25/21 05:15 125 H 31 H 94/49 06/25/21 05:00 121 H 133 H 30 H 89/48 06/25/21 04:46 123 H 101/36 06/25/21 04:45 124 H 30 H 119/54 06/25/21 04:30 126 H 28 H 110/54 06/25/21 04:15 126 H 31 H 111/54 06/25/21 04:00 127 H 32 H 111/54 06/25/21 03:45 126 H 30 H 106/52 06/25/21 03:43 97.0 F L 06/25/21 03:30 125 H 30 H 106/52 06/25/21 03:15 124 H 30 H 96/51 06/25/21 03:01 122 H 19 79/50 06/25/21 02:45 127 H 24 105/52 06/25/21 02:31 86/56 06/25/21 02:15 130 H 30 H 86/56 06/25/21 02:00 129 H 31 H 93/57 06/25/21 01:45 129 H 27 H 102/58 06/25/21 01:30 129 H 30 H 111/58 06/25/21 01:15 129 H 28 H 06/25/21 01:10 130 H 31 H 06/25/21 01:00 134 H 30 H 06/25/21 00:45 130 H 31 H 98/55 06/25/21 00:33 131 H 102/55 06/25/21 00:30 131 H 31 H 102/55 06/25/21 00:15 130 H 30 H 120/59 06/25/21 00:00 100.2 F H 129 H 30 H 119/59 06/24/21 23:56 129 H 30 H 110/55 06/24/21 23:45 129 H 30 H 110/55 06/24/21 23:30 129 H 31 H 91/58 06/24/21 23:15 128 H 31 H 101/50 06/24/21 23:00 133 H 30 H 99/49 06/24/21 22:45 133 H 30 H 104/52 06/24/21 22:30 133 H 30 H 105/54 06/24/21 22:15 133 H 30 H 112/53 06/24/21 22:00 132 H 31 H 114/57 06/24/21 21:45 133 H 23 102/57 06/24/21 21:30 132 H 30 H 106/54 06/24/21 21:15 131 H 132 H 30 H 30 H 108/56 06/24/21 21:10 131 H 108/56 06/24/21 21:00 131 H 133 H 30 H 108/56 06/24/21 20:46 131 H 30 H 105/56 06/24/21 20:30 131 H 30 H 106/53 06/24/21 20:15 130 H 30 H 83/53 06/24/21 20:00 131 H 30 H 95/53 06/24/21 19:57 100.0 F H 06/24/21 19:45 132 H 30 H 88/52 06/24/21 19:30 132 H 30 H 87/54 06/24/21 19:15 132 H 30 H 89/53 06/24/21 19:00 132 H 30 H 89/48 06/24/21 18:45 134 H 30 H 101/56 06/24/21 18:30 134 H 30 H 100/55 06/24/21 18:15 134 H 30 H 104/54 06/24/21 18:00 134 H 30 H 103/55 06/24/21 17:45 135 H 30 H 100/54 06/24/21 17:30 135 H 30 H 101/57 06/24/21 17:15 135 H 30 H 106/55 06/24/21 17:00 135 H 30 H 112/57 06/24/21 16:45 136 H 30 H 103/55 06/24/21 16:30 136 H 30 H 86/53 06/24/21 16:25 136 H 86/53 06/24/21 16:20 100 F H 121 H 30 H 105/56 06/24/21 16:15 136 H 30 H 97/55 06/24/21 16:00 100.2 F H 133 H 30 H 98/56 06/24/21 15:45 130 H 30 H 108/54 06/24/21 15:40 100.2 F H 130 H 30 H 100/45 06/24/21 15:30 130 H 30 H 100/49 06/24/21 15:25 100 F H 128 H 137 H 30 H 30 H 102/42 06/24/21 15:15 132 H 31 H 102/53 06/24/21 15:00 133 H 31 H 98/47 06/24/21 14:45 133 H 30 H 87/43 06/24/21 14:30 134 H 31 H 87/43 Pulse Ox 06/25/21 12:00 06/25/21 10:00 93 06/25/21 07:26 06/25/21 07:00 06/25/21 06:45 06/25/21 06:30 06/25/21 06:15 84 06/25/21 06:00 93 06/25/21 05:46 92 06/25/21 05:31 92 06/25/21 05:15 06/25/21 05:00 100 06/25/21 04:46 94 06/25/21 04:45 06/25/21 04:30 06/25/21 04:15 06/25/21 04:00 78 L 06/25/21 03:45 91 06/25/21 03:43 06/25/21 03:30 76 L 06/25/21 03:15 99 06/25/21 03:01 06/25/21 02:45 78 L 06/25/21 02:31 86 06/25/21 02:15 91 06/25/21 02:00 91 06/25/21 01:45 91 06/25/21 01:30 91 06/25/21 01:15 92 06/25/21 01:10 91 06/25/21 01:00 95 06/25/21 00:45 90 06/25/21 00:33 91 06/25/21 00:30 89 06/25/21 00:15 91 06/25/21 00:00 93 06/24/21 23:56 94 06/24/21 23:45 93 06/24/21 23:30 94 06/24/21 23:15 91 06/24/21 23:00 06/24/21 22:45 92 06/24/21 22:30 06/24/21 22:15 94 06/24/21 22:00 94 06/24/21 21:45 94 06/24/21 21:30 95 06/24/21 21:15 94 06/24/21 21:10 95 06/24/21 21:00 94 06/24/21 20:46 93 06/24/21 20:30 93 06/24/21 20:15 94 06/24/21 20:00 94 06/24/21 19:57 06/24/21 19:45 94 06/24/21 19:30 94 06/24/21 19:15 95 06/24/21 19:00 94 06/24/21 18:45 95 06/24/21 18:30 94 06/24/21 18:15 94 06/24/21 18:00 94 06/24/21 17:45 93 06/24/21 17:30 94 06/24/21 17:15 94 06/24/21 17:00 94 06/24/21 16:45 95 06/24/21 16:30 94 06/24/21 16:25 96 06/24/21 16:20 93 06/24/21 16:15 95 06/24/21 16:00 96 06/24/21 15:45 94 06/24/21 15:40 93 06/24/21 15:30 91 06/24/21 15:25 95 06/24/21 15:15 95 06/24/21 15:00 94 06/24/21 14:45 94 06/24/21 14:30 94 - Physical Examination General: Other (intubated ) HEENT: Positive: Normocephaly Neck: Positive: neck supple, trachea midline. Negative: JVD/HJR Cardiac: Positive: Tachycardia Lungs: Positive: Ventilated Respirations Neuro: Positive: Other (intubated) Abdomen: Positive: Soft Skin: Negative: Rash Musculoskeletal: No Fluid Collection Extremities: Present: lower extr. pulses, warm. Absent: edema - Labs and Meds CBC 06/25/21 Range/Units Unknown WBC 2.3 L (4.5-11.0) K/mm3 RBC 2.84 L (3.65-5.03) M/mm3 Hgb 7.6 L (11.8-15.2) gm/dl Hct 24.3 L (35.5-45.6) % Plt Count 51 L D (140-440) K/mm3 Comprehensive Metabolic Panel 06/25/21 Range/Units Unknown Sodium 135 L (137-145) mmol/L Potassium 4.2 D (3.6-5.0) mmol/L Chloride 100.3 (98-107) mmol/L Carbon Dioxide 18 L (22-30) mmol/L BUN 88 H (9-20) mg/dL Creatinine 4.8 H (0.8-1.3) mg/dL Glucose 75 (75-100) mg/dL Calcium 6.9 L (8.4-10.2) mg/dL - Imaging and Cardiology EKG: report reviewed, image reviewed Echo: report reviewed (06/05/2021 - EF 55-60%, normal diastolic fxn, no valvular abnormalities) - Telemetry EKG Rhythm: Sinus Tachycardia - EKG Sinus rhythms and dysrhythmias: sinus tachycardia Repolarization changes or abnormalities: nonspecific abnormality, ST segment, and/or T wave - Allied health notes Allied health notes reviewed: nursing
[2021-06-25] MEDS: IPRATROPIUM/ALBUTEROL SULFATE 3 ML AMPUL.NEB IH SCH ×3 (14:30→21:22)
--- NOTE | 2021-06-25 14:37 | Electrocardiograph Report ---
[facility] Test Date: 2021-06-19 Test Time: 10:31:30 Pat Name: ALAYNA ZAMBRANO Department: Room: A263 1 Gender: M Speech And Language Clinician: MARILIA : 1962-06-22 Requested By: SHARLA GARCÍA Order Number: [id number] Reading MD: Adelia Fraire Measurements Intervals [place] Rate: 133 P: 41 CO: 39 QRS: -16 QRSD: 92 T: 250 QT: 331 QTc: 492 Interpretive Statements Sinus tachycardia LAE, consider biatrial enlargement Inferolateral ST depression may suggest acute ischemia Compared to ECG 05/27/2021 07:09:[address] depression is now evident Electronically Signed On 06-25-2021 14:37:54 EDT by Adelia Fraire
[2021-06-25] MEDS ORDERED: LIDOCAINE (1%) 10 MG/1 ML VIAL 20 ML MDV INFILTRATI ONE (14:45)
[2021-06-25] MEDS ORDERED: SODIUM CHLORIDE 0.9% IRR 1,000 ML BOTTLE IR ONE (14:45)
--- NOTE | 2021-06-25 15:39 | Procedure Note ---
Date of procedure: 06/25/21 Pre-op diagnosis: Bilateral Pneumonia; AHRF Post-op diagnosis: same Procedure: Fiberoptic bronchoscopy with washings (full dictation ) please see dictated notes for full details
[2021-06-25] MEDS ORDERED: FLUCONAZOLE 200 MG 200 MG/100 ML BAG IV SCH (16:00)
[2021-06-25] MEDS ORDERED: methylPREDNISolone Sod Suc 500 MG in SODIUM CHLORIDE 0.9% 100 ML IV SCH (16:00)
--- NOTE | 2021-06-25 20:26 | Progress Note ---
<PABLO CHUN - Last Filed: 06/25/21 20:30> Assessment and Plan Assessment and plan: This is a 59-year-old male with CVA and current daily smoker admitted with pneumonia possibly secondary to COVID-19, hypoxia and encephalopathy Neuro: Acute encephalopathy, seizure -CT head negative on admit -Sedated with fentanyl and propofol -Goal RASS -1 to -2 -Avoid delirium -Maintenance of sleep-wake cycle -Patient had a witnessed seizure on 06/24 -EEG shows diffuse slowing -CT head shows no evidence of acute intracranial abnormality, if his seizures or neurologic symptoms persist or additional evaluation is clinically indicated consider MRI. Fluid level within the right maxillary sinus as well as fluid throughout both mastoid air cells is noted which may represent sinusitis/mastoiditis -Neurology consulted, appreciate recommendations -Keppra changed to Vimpat -Per neurology consider MRI brain Cardio: S/p cardiac arrest -06/10 s/p cardiac arrest -Cardiology consulted, appreciate recommendations -Per cardiology not a candidate for anticoagulation secondary to anemia and beta-ian secondary to hypotension as well as reports of melena per nursing staff -Vasopressor support with Levophed, vasopressor -MAP goal of 65 -Echocardiogram shows left ventricle ejection fraction 55 to 60% Respiratory: Acute hypoxic respiratory failure, left pneumothorax, aspiration pneumonia with left lower lobe lesion, pneumomediastinum -S/p BiPAP -CCM consulted, appreciate recommendation -CXR showed patchy multifocal airspace disease bilaterally -Patient was intubated 06/17 with a 8.0 OETT at 24 at the lips -A.m. vent settings assist-control rate 30, tidal volume 450, PEEP 12 and FiO2 100% -A.m. ABG noted and patient was given sodium bicarb x2 and tidal volume increased -Repeat ABG noted -See RT notes for weaning -VAP bundle -SPO2 monitoring -Daily SBT/SAT trials when appropriate -Chest tube to wall suction -VQ scan shows low probability of pulmonary embolism -06/17 patient underwent a bronchoscopy with washings which showed clinical s ymptoms of diffuse alveolar hemorrhage -Started on antibiotics and steroids GI: NAD, s/p ileus (resolved) -NTR consult for tube feeding -Nephro at 41 ml/hr -on hold d/t vasopressor use -Free water flush decreased to 150 ml q4 -PPI: Pepcid -BR: Senokot : Acute kidney injury secondary to vasomotor nephropathy, hypernatremia, hyperchloremia -Nephrology consulted, appreciate recommendations -Renal ultrasound unremarkable -Vasculitis work-up negative, including ANCA as well as complement levels -06/20 HD initiated by nephrology -Nephrology recommends transfer to facility with CRRT as patient is unable to tolerate hemodialysis -HD per nephrology -Avoid nephrotoxic medications -Renally dose medications -Daily weights -Strict intake and output -Trend BMP ID: Aspiration pneumonia with left lower lobe abcess, COVID 19 PNA -Seen on CT abdomen pelvis and chest: Approximately 5 x 6 cm -Infectious disease consulted, appreciate recommendations -Covid 19 PCR positive at outpatient however negative x2 inpatient -CT abdomen/pelvis showed severe aspiration type pneumonia bilateral bases with lesion in the left lower lobe -Cefepime and Flagyl (planned 3 weeks of therapy) -> per ID -S/p azithromycin , ceftriaxone -S/p Decadron -S/p stress dose steroids -s/p Actemra on 05/24 -Monitor fever WBC curve -Follow-up culture data Heme: Leukopenia, elevated D-dimer -D-dimer on admit greater than 10,000-> VQ scan with low probability of PE -D-dimer trending down -Eliquis 2.5 every 12 -Trend CBC -Transfuse for hemoglobin less than 7 Endo: Hypoglycemia -SSI -Accu-Cheks every 6 -Avoid hypoglycemia -Hypoglycemia protocol in place The high probability of a clinically significant, sudden or life threatening deterioration of the [multi] system(s) required my full and direct attention, intervention and personal management. The aggregate critical care time was [60] minutes. This time is in addition to time spent performing reported procedures but includes the following: [x] Data Review and interpretation [x] Patient assessment and monitoring of vital signs [x] Documentation [x] Medication orders and management Disposition Plan: icu Total Time Spent with Patient (Minutes): 60 History Interval history: This is a 59-year-old male with CVA and current daily smoker who was diagnosed with COVID-19 on 05/11/2021 who presented to emergency department on 05/23 with complaints of shortness of breath, decreased oral intake over the past 10 to 12 days via EMS. Initial oxygen saturation according to EMS was about 70% on room air and he was placed on a nonrebreather. Upon arrival to the emergency department patient was placed on a nasal cannula as he had significant improvement in oxygen saturation. Work-up in the emergency department revealed elevated D-dimer, hyponatremia, hyperkalemia, acute kidney injury, lactic acidosis and leukocytosis. CXR showed mild patchy multifocal airspace disease throughout the lungs and a VQ scan was showed low ability of pulmonary embolism. Patient was admitted to the hospitalist service with pneumonia possibly secondary to COVID-19, hypoxia and encephalopathy. 06/25: Per neurology consider MRI brain, EEG showed diffuse slowing with no epileptiform discharges, nephrology to hold hemodialysis today given hemodynamic stability and recommends transfer to facility with CRRT as unable to tolerate hemodialysis, patient started on Diflucan and Solu-Medrol for clinical diffuse alveolar hemorrhage found on bronchoscopy today. Patient was given sodium bicarb x3 IVP and started on a bicarb drip. 06/24: 06/24: Patient not tolerate hemodialysis yesterday because became hemodynamically unstable, patient had a witnessed seizure overnight. EEG and CT head ordered. Neurology consult ordered. Patient started on vasopressin due to persistent hypotension while maxed on Levophed. Neutropenic precautions due to neutropenia. plts ordered d/t thrombocytopenia , Mg and K replaced 06/23: Patient remains on vasopressor support with Levophed, maximal vent settings, sedated with fentanyl and propofol. Chest tube remains to wall suction. Continue antibiotics and pancytopenia persists. HD per nephrology. 06/22: Patient CODE STATUS changed to AND/DNR, no acute events reported overnight 06/21: No acute events reported overnight 06/20: S/p cardiac arrest, intubated, transferred to ICU, Vas-Cath placement with initiation of HD Hospitalist Physical - Constitutional Vitals: Temp Pulse Resp BP Pulse Ox 99.0 F 116 H 30 H 84/27 96 06/25/21 20:00 06/25/21 18:00 06/25/21 18:00 06/25/21 18:00 06/25/21 17:45 General appearance: Present: other (intubated) - EENT Eyes: Present: PERRL, EOM intact ENT: poor dentition - Neck Neck: Absent: masses or JVD - Respiratory Respiratory effort: normal Respiratory: bilateral: diminished - Cardiovascular Rhythm: regular Heart Sounds: Present: S1 & S2. Absent: systolic murmur, diastolic murmur - Extremities Extremities: no ischemia, pulses intact, pulses symmetrical, No edema, normal temperature, normal color Peripheral Pulses: within normal limits - Abdominal General gastrointestinal: soft, non-tender, non-distended, normal bowel sounds - Integumentary Integumentary: Present: dry - Psychiatric Psychiatric: other (not interactive) - Neurologic Neurologic: other - Allied Health Allied health notes reviewed: nursing, RT, social work HEART Score - HEART Score EKG: Non-specific Age: 45-65 Risk factors: 1-2 risk factors Troponin: Troponin T 0.105 ng/mL (0.00-0.029) H* 06/20/21 05:00 - Critical Actions Critical Actions: 0-3 pts:0.9-1.7%risk of adverse cardiac event.Candidate for discharge Results - Labs CBC & Chem 7: 06/25/21 Unknown 06/25/21 Unknown Labs: Laboratory Last Values WBC 2.3 K/mm3 (4.5-11.0) L 06/25/21 Unknown RBC 2.84 M/mm3 (3.65-5.03) L 06/25/21 Unknown Hgb 7.6 gm/dl (11.8-15.2) L 06/25/21 Unknown Hct 24.3 % (35.5-45.6) L 06/25/21 Unknown MCV 86 fl (84-94) 06/25/21 Unknown MCH 27 pg (28-32) L 06/25/21 Unknown MCHC 31 % (32-34) L 06/25/21 Unknown RDW 18.0 % (13.2-15.2) H 06/25/21 Unknown Plt Count 51 K/mm3 (140-440) L D 06/25/21 Unknown Lymph % (Auto) Elevator Constructor Supervisor 06/01/21 07:10 Bledsoe % (Auto) Elevator Constructor Supervisor 06/01/21 07:10 Eos % (Auto) Elevator Constructor Supervisor 06/01/21 07:10 Baso % (Auto) Elevator Constructor Supervisor 06/01/21 07:10 Lymph # (Auto) Elevator Constructor Supervisor 06/01/21 07:10 Bledsoe # (Auto) Elevator Constructor Supervisor 06/01/21 07:10 Eos # (Auto) Elevator Constructor Supervisor 06/01/21 07:10 Baso # (Auto) Elevator Constructor Supervisor 06/01/21 07:10 Add Manual Diff Complete 06/25/21 Unknown Total Counted 100 06/25/21 Unknown Seg Neutrophils % Elevator Constructor Supervisor 06/17/21 06:25 Seg Neuts % (Manual) 66.0 % (40.0-70.0) 06/25/21 Unknown Band Neutrophils % 13.0 % 06/25/21 Unknown Lymphocytes % (Manual) 14.0 % (13.4-35.0) 06/25/21 Unknown Reactive Lymphs % (Man) 1.0 % 06/01/21 07:10 Monocytes % (Manual) 4.0 % (0.0-7.3) 06/25/21 Unknown Eosinophils % (Manual) 1.0 % (0.0-4.3) 06/25/21 Unknown Metamyelocytes % 2.0 % 06/25/21 Unknown Myelocytes % 1.0 % 06/13/21 06:05 Nucleated RBC % 6.0 % (0.0-0.9) H 06/25/21 Unknown Seg Neutrophils # Elevator Constructor Supervisor 06/01/21 07:10 Seg Neutrophils # Man 1.5 K/mm3 (1.8-7.7) L 06/25/21 Unknown Band Neutrophils # 0.3 K/mm3 06/25/21 Unknown Lymphocytes # (Manual) 0.3 K/mm3 (1.2-5.4) L 06/25/21 Unknown Abs React Lymphs (Man) 0.0 K/mm3 06/25/21 Unknown Monocytes # (Manual) 0.1 K/mm3 (0.0-0.8) 06/25/21 Unknown Eosinophils # (Manual) 0.0 K/mm3 (0.0-0.4) 06/25/21 Unknown Basophils # (Manual) 0.0 K/mm3 (0.0-0.1) 06/25/21 Unknown Metamyelocytes # 0.0 K/mm3 06/25/21 Unknown Myelocytes # 0.0 K/mm3 06/25/21 Unknown Promyelocytes # 0.0 K/mm3 06/25/21 Unknown Blast Cells # 0.0 K/mm3 06/25/21 Unknown WBC Morphology Not Reportable 06/25/21 Unknown Hypersegmented Neuts Not Reportable 06/25/21 Unknown Hyposegmented Neuts Not Reportable 06/25/21 Unknown Hypogranular Neuts Not Reportable 06/25/21 Unknown Smudge Cells Not Reportable 06/25/21 Unknown Toxic Granulation 1+ 06/25/21 Unknown Toxic Vacuolation Few 06/25/21 Unknown Dohle Bodies 2+ 06/25/21 Unknown Pelger-Huet Anomaly Not Reportable 06/25/21 Unknown Kaci Rods Not Reportable 06/25/21 Unknown Platelet Estimate Consistent w auto 06/25/21 Unknown Clumped Platelets Not Reportable 06/25/21 Unknown Plt Clumps, EDTA Not Reportable 06/25/21 Unknown Large Platelets Few 06/25/21 Unknown Giant Platelets Not Reportable 06/25/21 Unknown Platelet Satelliting Not Reportable 06/25/21 Unknown Plt Morphology Comment Not Reportable 06/25/21 Unknown RBC Morphology Not Reportable 06/25/21 Unknown Dimorphic RBCs Not Reportable 06/25/21 Unknown Polychromasia Not Reportable 06/25/21 Unknown Hypochromasia 3+ 06/25/21 Unknown Poikilocytosis Not Reportable 06/25/21 Unknown Anisocytosis 2+ 06/25/21 Unknown Microcytosis 2+ 06/25/21 Unknown Macrocytosis Not Reportable 06/25/21 Unknown Spherocytes Not Reportable 06/25/21 Unknown Pappenheimer Bodies Not Reportable 06/25/21 Unknown Sickle Cells Not Reportable 06/25/21 Unknown Target Cells Not Reportable 06/25/21 Unknown Tear Drop Cells Rare 06/25/21 Unknown Ovalocytes Few 06/25/21 Unknown Helmet Cells Not Reportable 06/25/21 Unknown Weems-Saxton Bodies Not Reportable 06/25/21 Unknown [place] Rings Not Reportable 06/25/21 Unknown [place] Cells Not Reportable 06/25/21 Unknown Bite Cells Not Reportable 06/25/21 Unknown Crenated Cell Not Reportable 06/25/21 Unknown Elliptocytes Not Reportable 06/25/21 Unknown Acanthocytes (Spur) Not Reportable 06/25/21 Unknown Rouleaux Few 06/25/21 Unknown Hemoglobin C Crystals Not Reportable 06/25/21 Unknown Schistocytes Not Reportable 06/25/21 Unknown Malaria parasites Not Reportable 06/25/21 Unknown Dick Bodies Not Reportable 06/25/21 Unknown Hem Pathologist Commnt No 06/25/21 Unknown PT 19.2 Sec. (12.2-14.9) H 06/19/21 09:37 INR 1.46 (0.87-1.13) H 06/19/21 09:37 APTT 54.3 Sec. (24.2-36.6) H 06/19/21 09:37 D-Dimer 3584.01 ng/mlDDU (0-234) H 05/27/21 08:09 ABG pH 7.195 pH Units (7.350-7.450) L* 06/25/21 10:20 POC ABG pCO2 53.8 mmHg (32.0-48.0) H 06/24/21 04:00 ABG pCO2 57.5 mm Hg 06/25/21 10:20 POC ABG pO2 53.1 mmHg (83-108) L 06/24/21 04:00 ABG pO2 71.0 mm Hg (80.0-90.0) L 06/25/21 10:20 POC ABG HCO3 22.4 06/24/21 04:00 ABG HCO3 21.8 mmol/L (20.0-26.0) 06/25/21 10:20 ABG O2 Saturation 95.8 % (95.0-99.0) 06/25/21 10:20 ABG O2 Content 19.6 (0.0-44) 06/25/21 10:20 POC ABG Base Excess -4.8 06/24/21 04:00 ABG Base Excess -7.1 mmol/L (-2.0-3.0) L 06/25/21 10:20 ABG Hemoglobin 8.6 gm/dl (14.0-18.0) L 06/25/21 10:20 ABG Oxyhemoglobin 83.8 (94-98) L 06/24/21 04:00 ABG Carboxyhemoglobin 2.1 % (0.0-5.0) 06/25/21 10:20 ABG Methemoglobin 0.6 % (0.0-1.5) 06/25/21 10:20 ABG Sodium 130.5 mmol/L (136.0-145.0) L 06/24/21 04:00 ABG Potassium 3.4 mmol/L (3.40-4.50) 06/24/21 04:00 ABG Chloride 102.0 mmol/L (98-107) 06/24/21 04:00 ABG Glucose 74 mg/dL (65-95) 06/24/21 04:00 VBG pH 7.254 (7.320-7.420) L 05/24/21 02:09 Oxyhemoglobin 93.2 % (95.0-99.0) L 06/25/21 10: Carboxyhemoglobin 1.2 (0.5-1.5) 06/24/21 04:00 FiO2 100 % 06/25/21 10:20 FiO2 % 85 06/24/21 04:00 Sodium 135 mmol/L (137-145) L 06/25/21 Unknown Potassium 4.2 mmol/L (3.6-5.0) D 06/25/21 Unknown Chloride 100.3 mmol/L (98-107) 06/25/21 Unknown Carbon Dioxide 18 mmol/L (22-30) L 06/25/21 Unknown Anion Gap 21 mmol/L 06/25/21 Unknown BUN 88 mg/dL (9-20) H 06/25/21 Unknown Creatinine 4.8 mg/dL (0.8-1.3) H 06/25/21 Unknown Estimated GFR 15 ml/min 06/25/21 Unknown BUN/Creatinine Ratio 18 % 06/25/21 Unknown Glucose 75 mg/dL (75-100) 06/25/21 Unknown POC Glucose 60 mg/dL (70-105) L 06/25/21 15:41 Lactic Acid 1.00 mmol/L (0.7-2.0) 06/19/21 16:20 Calcium 6.9 mg/dL (8.4-10.2) L 06/25/21 Unknown Phosphorus 6.30 mg/dL (2.5-4.5) H 06/25/21 Unknown Magnesium 1.80 mg/dL (1.7-2.3) 06/25/21 Unknown Ferritin 2742.0 ng/mL (30.0-300.0) H 05/27/21 08:09 Total Bilirubin 0.20 mg/dL (0.1-1.2) 06/21/21 07:45 AST 51 units/L (5-40) H 06/21/21 07:45 ALT 14 units/L (7-56) 06/21/21 07:45 Alkaline Phosphatase 122 units/L (35-129) 06/21/21 07:45 Ammonia 22.0 umol/L (25-60) L 05/23/21 18:48 Lactate Dehydrogenase 642 units/L (91-180) H 05/27/21 08:09 Troponin T 0.105 ng/mL (0.00-0.029) H* 06/20/21 05:00 C-Reactive Protein 11.50 mg/dL (0.00-1.30) H 06/19/21 16:15 Total Protein 3.9 g/dL (6.3-8.2) L 06/21/21 07:45 Albumin 1.3 g/dL (3.9-5) L 06/21/21 07:45 Albumin/Globulin Ratio 0.5 % 06/21/21 07:45 Triglycerides 557 mg/dL (2-149) H 06/24/21 05:00 Cholesterol 85 mg/dL (50-199) 06/19/21 12:19 LDL Cholesterol Direct 24 mg/dL (50-130) L 06/19/21 12:19 HDL Cholesterol 17 mg/dL (40-59) L 06/19/21 12:19 Cholesterol/HDL Ratio 5.00 % 06/19/21 12:19 Procalcitonin 19.60 ng/mL (<0.15) 06/18/21 Unknown TSH 1.150 mlU/mL (0.270-4.200) 05/23/21 18:48 Arterial Blood Glucose 74 mg/dL (65-95) 06/24/21 04:00 Arterial Blood Ionized Calcium 4.5 mg/dL (4.6-5.3) L 05/29/21 17:58 Urine Color Eli (Yellow) 06/20/21 12:35 Urine Turbidity Cloudy (Clear) 06/20/21 12:35 Urine pH 5.0 (5.0-7.0) 06/20/21 12:35 Ur Specific Merrill 1.016 (1.003-1.030) 06/20/21 12:35 Urine Protein 100 mg/dl mg/dL (Negative) 06/20/21 12:35 Urine Glucose (UA) 50 mg/dL (Negative) 06/20/21 12:35 Urine Ketones Neg mg/dL (Negative) 06/20/21 12:35 Urine Blood Mod (Negative) 06/20/21 12:35 Urine Nitrite Neg (Negative) 06/20/21 12:35 Urine Bilirubin Neg (Negative) 06/20/21 12:35 Urine Urobilinogen < 2.0 mg/dL (<2.0) 06/20/21 12:35 Ur Leukocyte Esterase Neg (Negative) 06/20/21 12:35 Urine WBC (Auto) 46.0 /HPF (0.0-6.0) H 06/20/21 12:35 Urine RBC (Auto) 74.0 /HPF (0.0-6.0) 06/20/21 12:35 U Epithel Cells (Auto) 2.0 /HPF (0-13.0) 05/30/21 01:00 Urine Bacteria (Auto) 4+ /HPF (Negative) 06/20/21 12:35 Urine WBC Clumps Few /HPF 06/20/21 12:35 Uric Acid Crystals Few 05/30/21 01:00 Amorphous Crystals 3+ 06/20/21 12:35 Granular Casts 90 /LPF 06/20/21 12:35 Urine Mucus Few /HPF 06/20/21 12:35 Ur Yeast w Hyphae 2+ /HPF 06/18/21 Unknown Urine Yeast (Budding) 3+ /HPF 06/18/21 Unknown Urine Sperm Few /HPF (MOLECULAR BIOLOGIST) 06/20/21 12:35 Urine Eosinophils None seen (None Seen) 06/18/21 11:24 Urine Creatinine 49.9 mg/dL (0.1-20.0) H 06/19/21 11:14 Urine Sodium 56 mmol/L 06/19/21 11:14 Fraction Sodium Excret 2.3 06/19/21 11:14 Nasal Screen MRSA (PCR) Negative (Negative) 06/15/21 Unknown Vancomycin Trough 18.1 ug/mL (5.0-20.0) 06/16/21 22:30 Plasma/Serum Alcohol < 0.01 % (0-0.07) 05/23/21 18:48 Proteinase 3 (PR3) Ab <1.0 AI (<1.0) 05/24/21 20:57 Myeloperoxidase Ab <1.0 AI (<1.0) 05/24/21 20:57 Complement C3 108 mg/dL (82-185) 05/24/21 20:57 Complement C4 29 mg/dL (15-53) 05/24/21 20:57 Coronavirus (PCR) Negative (Negative) 05/26/21 08:41 Blood Type A POSITIVE 06/20/21 22:38 Antibody Screen Negative 06/20/21 22:38 Crossmatch See Detail 06/20/21 22:38 Heart/IV: Voiding Method Indwelling Catheter Active Medications - Current Medications Current Medications: Generic Name Dose Route Start Last Admin Trade Name Freq PRN Reason Stop Dose Admin Acetaminophen 650 mg 06/19/21 12:00 06/24/21 09:45 Acetaminophen 325 Mg/10.15 Ml Oral Liqd Unit Dose FEEDTUBE 650 mg Q6H PRN Administration Pain MILD(1-3)/Fever >100.5/LUCAS Albuterol/Ipratropium 1 ampul 06/07/21 20:00 06/25/21 16:14 Ipratropium/Albuterol Sulfate 3 Ml Ampul.Neb IH 1 ampul TIDRT MIKE Administration Lipase/Protease/Amylase 1 each 06/18/21 12:21 Lipase 10,500/Protease 25,000/Amylase 43,750 (Units) Dr Cap FEEDTUBE PRN PRN For Clogged Feeding Tube Dextrose 25 ml 06/24/21 12:36 06/25/21 16:30 Dextrose 50% In Water (25gm) 50 Ml Syringe IV 15 ml Q30MIN PRN Administration Hypoglycemia Protocol Famotidine 10 mg 06/19/21 10:00 06/25/21 09:05 Famotidine 20 Mg/2 Ml Inj IV 10 mg BID MIKE Administration Fentanyl 50 mcg 06/17/21 17:00 Fentanyl 100 Mcg/2 Ml Inj IV Q10MIN PRN ANALGESIA Hydrophilic Ointment 1 applic 06/17/21 17:00 Lip Therapy Vaseline TP Q2HR PRN Dry Lips Metronidazole 500 mg in 100 mls @ 100 mls/hr 06/08/21 13:00 06/25/21 12:50 Flagyl 500 Mg/100 Ml IV 06/29/21 05:59 100 mls/hr Q8H MIKE Administration Protocol Fentanyl Citrate 2,000 mcg in 100 mls @ 3.725 mls/hr 06/17/21 17:00 06/25/21 18:28 Fentanyl Drip Premix IV 3 mcg/kg/hr TITR MIKE 11.175 mls/hr Administration Protocol 1 MCG/KG/HR NORepinephrine/NS 8 MG-250 ML 8 mg in 250 mls @ 3.75 mls/hr 06/18/21 23:00 06/25/21 18:35 Norepinephrine/Ns 8 Mg-250 Ml (Double Conc) IV 30 mcg/min TITRATE MIKE 56.25 mls/hr Administration Protocol 2 MCG/MIN Cefepime HCl 2 gm in 100 mls @ 200 mls/hr 06/20/21 06:00 06/25/21 05:05 Cefepime/Ns 2 Gm/100 Ml IV 06/29/21 06:29 200 mls/hr Q24H MIKE Administration Protocol Propofol 1,000 mg in 100 mls @ 2.226 mls/hr 06/20/21 13:00 06/25/21 13:55 Diprivan 10 Mg/Ml IV 10 mcg/kg/min TITR MIKE 4.452 mls/hr Administration Protocol 5 MCG/KG/MIN Sodium Chloride 100 mls @ 999 mls/hr 06/23/21 11:09 Nacl 0.9% IV KAVITA PRN Hypotension Vasopressin 20 unit/ Sodium 101 mls @ 9.09 mls/hr 06/24/21 10:00 06/25/21 09: 03 Chloride IV 0.03 units/min TITR MIKE 9.09 mls/hr Administration Protocol 0.03 UNITS/MIN Lacosamide 50 mg/ Sodium 105 mls @ 100 mls/hr 06/24/21 12:00 06/25/21 12:50 Chloride IV 100 mls/hr Q12H MIKE Administration Sodium Bicarbonate 150 meq/ 1,150 mls @ 75 mls/hr 06/25/21 12:00 06/25/21 11:40 Dextrose IV 06/27/21 03:19 75 mls/hr DIRECT MIKE Administration Fluconazole 200 mg in 100 mls @ 100 mls/hr 06/25/21 16:00 06/25/21 17:37 Diflucan IV 06/30/21 15:59 100 mls/hr Q24H MIKE Administration Protocol Methylprednisolone Sodium 100 mls @ 200 mls/hr 06/25/21 16:00 06/25/21 16:30 Succinate 500 mg/ Sodium IV 06/28/21 15:59 200 mls/hr Chloride Q8H MIKE Administration Lorazepam 2 mg 06/23/21 22:12 Lorazepam 2 Mg/Ml Vial IV Q4H PRN Agitation Morphine Sulfate 2 mg 05/23/21 22:01 06/17/21 10:01 Morphine 2 Mg/1 Ml Inj IV 2 mg Q4H PRN Administration Pain, Moderate (4-6) Multi-Ingred Cream/Lotion/Oil/Oint 1 applic 06/17/21 18:00 Mineral Oil/Petrolatum, White Ophth Oint 3.5 Gm OU Q4HR PRN Dry Eye(s) Ondansetron HCl 4 mg 06/04/21 13:41 06/09/21 22:05 Ondansetron 4 Mg/2 Ml Inj IV 4 mg Q4H PRN Administration Nausea And Vomiting Senna/Docusate Sodium 1 tab 06/17/21 22:00 06/25/21 09:05 Sennosides/Docusate Sodium 8.6/50 Mg Tab FEEDTUBE 1 tab BID MIKE Administration Simple Syrup 15 ml 06/18/21 12:21 06/23/21 23:31 Simple Syrup 15 Ml FEEDTUBE 15 ml PRN PRN Administration Hypoglycemia Simple Syrup 30 ml 06/18/21 12:21 Simple Syrup 15 Ml FEEDTUBE PRN PRN Hypoglycemia Sodium Bicarbonate 325 mg 06/18/21 12:21 Sodium Bicarbonate 325 Mg Tab FEEDTUBE PRN PRN For Clogged Feeding Tube Sodium Chloride 10 ml 05/23/21 22:01 06/25/21 09:07 Sodium Chloride 0.9% 10 Ml Flush Syringe IV 10 ml PRN PRN Administration LINE FLUSH Nutrition/Malnutrition Assess - Dietary Evaluation Nutrition/Malnutrition Findings: Nutrition Notes Start: 05/25/21 09:33 Freq: Status: Active Protocol: Document 06/24/21 12:44 GB (Rec: 06/24/21 12:54 GB [email or web address]) Nutrition Notes Initial or Follow up Reassessment Current Diagnosis Respiratory Failure Other Pertinent Diagnosis Accute Kidney Injury, Pneumonia, PUI Covid-19. Current Diet NPO, Tube Feeding Nepro Labs/Tests 06/24: BUN 82, creatinine 4.3, Glu 73, Ca 7.2, Na 134, K 3.3 , Tg 557 Pertinent Medications fentanyl citrate, Norepinhephrin/Ns8 Mg250, KCl, Vassopresin, propofol 2.226ml /hr (58kcal) @0/0 for assessment. Height 5 ft 11 in Weight 81.8 kg [place] Body Weight (kg) 78.18 BMI 25.1 Weight change and time frame 05/24: 77.111kg 06/22: 81.8kg change of +4.689kg for +6% signficance. Weight Status Appropriate Subjective/Other Information Last BM: bowel status diarrhea 06/24 MD note 06/24: Pt experienced seziure, TF PRN r/t tube clogging. Per chart: TF is running Percent of energy/protein needs met: TF at goal rate meets 75% or greater EEN Burn Absent Trauma Absent GI Symptoms Diarrhea Difficulty In Swallowing Food Allergy No Skin Integrity/Comment PI: buttocks Current % PO Other Minimum of two criteria No physical signs of malnutrition #2 Nutrition Diagnosis No nutrition diagnosis at this time #1 Nutrition Diagnosis Swallowing difficulty Comments: 06/20: Tube feeding started , Nepro @41ml/hr at goal, tolerating 06/24: Nepro 41ml/hr. TF PRN r/t tube clogging. Etiology acute illness As Evidenced by Signs and Symptoms Intubated, TF Diagnosis Progress(for reassessment Continues documentation) Is patient on ventilator? Yes Is Patient Ambulatory and/or Out of Bed No REE-([facility]-confined to bed) 1995.740 Kcal/Kg value to use for calculation 25 Approximate Energy Requirements Using 2045 kcal/Kg Calculation Used for Recommendations Kcal/kg Additional Notes protein needs: 1.0-1.2 g/Kg/ day @78kg; 78-94 g/day ( continue at this weight) fluid needs: 1.0 ml/kcal, or as per MD. Nutrition Intervention Change Diet Order: NPO - continue Nutrition Support: TF- Nepro @41ml/hr continue Flush 190ml/4hr Total fluids: TF at goal + Flush = 1855ml Kcal 1,771 Protein (gm) 80 Carbohydrates (gm) 161 Fat (gm) 96 Fluid (mL) 715 Goal #1 Maintain body weight within +/ -3% of current BWt during LOS. 06/20: met, -3.7% in 30 days, continues 06/24: Gain of 6%, change r/t IV fluids, recent event Goal #2 Reach and maintain acceptable chemistry lab values during LOS. 06/20: showing improvement, continues 06/24: continues Goal #3 Tolerate TF at goal 41ml/hr during LOS 06/20: met, continues 06/24: continues, Tube has been documented to getting clogged Follow-Up By: 07/01/21 Additional Comments f/u: TF, vent status <WAYNE GIPSON - Last Filed: 06/29/21 12:49> Assessment and Plan Assessment and plan: I saw and evaluated the patient. Discussed with the nurse practitioner and agree with their findings and plan as documented in this note. Hospitalist Physical - Constitutional Vitals: Temp Pulse Resp BP Pulse Ox 99.0 F 128 H 30 H 100/46 0 L 06/25/21 20:00 06/25/21 21:04 06/25/21 18:00 06/25/21 21:04 06/25/21 21:04 HEART Score - HEART Score Troponin: Troponin T 0.105 ng/mL (0.00-0.029) H* 06/20/21 05:00 Results - Labs CBC & Chem 7: 06/25/21 Unknown 06/25/21 Unknown Labs: Laboratory Last Values WBC 2.3 K/mm3 (4.5-11.0) L 06/25/21 Unknown RBC 2.84 M/mm3 (3.65-5.03) L 06/25/21 Unknown Hgb 7.6 gm/dl (11.8-15.2) L 06/25/21 Unknown Hct 24.3 % (35.5-45.6) L 06/25/21 Unknown MCV 86 fl (84-94) 06/25/21 Unknown MCH 27 pg (28-32) L 06/25/21 Unknown MCHC 31 % (32-34) L 06/25/21 Unknown RDW 18.0 % (13.2-15.2) H 06/25/21 Unknown Plt Count 51 K/mm3 (140-440) L D 06/25/21 Unknown Lymph % (Auto) Elevator Constructor Supervisor 06/01/21 07:10 Bledsoe % (Auto) Elevator Constructor Supervisor 06/01/21 07:10 Eos % (Auto) Elevator Constructor Supervisor 06/01/21 07:10 Baso % (Auto) Elevator Constructor Supervisor 06/01/21 07:10 Lymph # (Auto) Elevator Constructor Supervisor 06/01/21 07:10 [place] # (Auto) Elevator Constructor Supervisor 06/01/21 07:10 Eos # (Auto) Elevator Constructor Supervisor 06/01/21 07:10 Baso # (Auto) Elevator Constructor Supervisor 06/01/21 07:10 Add Manual Diff Complete 06/25/21 Unknown Total Counted 100 06/25/21 Unknown Seg Neutrophils % Elevator Constructor Supervisor 06/17/21 06:25 Seg Neuts % (Manual) 66.0 % (40.0-70.0) 06/25/21 Unknown Band Neutrophils % 13.0 % 06/25/21 Unknown Lymphocytes % (Manual) 14.0 % (13.4-35.0) 06/25/21 Unknown Reactive Lymphs % (Man) 1.0 % 06/01/21 07:10 Monocytes % (Manual) 4.0 % (0.0-7.3) 06/25/21 Unknown Eosinophils % (Manual) 1.0 % (0.0-4.3) 06/25/21 Unknown Metamyelocytes % 2.0 % 06/25/21 Unknown Myelocytes % 1.0 % 06/13/21 06:05 Nucleated RBC % 6.0 % (0.0-0.9) H 06/25/21 Unknown Seg Neutrophils # Elevator Constructor Supervisor 06/01/21 07:10 Seg Neutrophils # Man 1.5 K/mm3 (1.8-7.7) L 06/25/21 Unknown Band Neutrophils # 0.3 K/mm3 06/25/21 Unknown Lymphocytes # (Manual) 0.3 K/mm3 (1.2-5.4) L 06/25/21 Unknown Abs React Lymphs (Man) 0.0 K/mm3 06/25/21 Unknown Monocytes # (Manual) 0.1 K/mm3 (0.0-0.8) 06/25/21 Unknown Eosinophils # (Manual) 0.0 K/mm3 (0.0-0.4) 06/25/21 Unknown Basophils # (Manual) 0.0 K/mm3 (0.0-0.1) 06/25/21 Unknown Metamyelocytes # 0.0 K/mm3 06/25/21 Unknown Myelocytes # 0.0 K/mm3 06/25/21 Unknown Promyelocytes # 0.0 K/mm3 06/25/21 Unknown Blast Cells # 0.0 K/mm3 06/25/21 Unknown WBC Morphology Not Reportable 06/25/21 Unknown Hypersegmented Neuts Not Reportable 06/25/21 Unknown Hyposegmented Neuts Not Reportable 06/25/21 Unknown Hypogranular Neuts Not Reportable 06/25/21 Unknown Smudge Cells Not Reportable 06/25/21 Unknown Toxic Granulation 1+ 06/25/21 Unknown Toxic Vacuolation Few 06/25/21 Unknown Dohle Bodies 2+ 06/25/21 Unknown Pelger-Huet Anomaly Not Reportable 06/25/21 Unknown Kaci Rods Not Reportable 06/25/21 Unknown Platelet Estimate Consistent w auto 06/25/21 Unknown Clumped Platelets Not Reportable 06/25/21 Unknown Plt Clumps, EDTA Not Reportable 06/25/21 Unknown Large Platelets Few 06/25/21 Unknown Giant Platelets Not Reportable 06/25/21 Unknown Platelet Satelliting Not Reportable 06/25/21 Unknown Plt Morphology Comment Not Reportable 06/25/21 Unknown RBC Morphology Not Reportable 06/25/21 Unknown Dimorphic RBCs Not Reportable 06/25/21 Unknown Polychromasia Not Reportable 06/25/21 Unknown Hypochromasia 3+ 06/25/21 Unknown Poikilocytosis Not Reportable 06/25/21 Unknown Anisocytosis 2+ 06/25/21 Unknown Microcytosis 2+ 06/25/21 Unknown Macrocytosis Not Reportable 06/25/21 Unknown Spherocytes Not Reportable 06/25/21 Unknown Pappenheimer Bodies Not Reportable 06/25/21 Unknown Sickle Cells Not Reportable 06/25/21 Unknown Target Cells Not Reportable 06/25/21 Unknown Tear Drop Cells Rare 06/25/21 Unknown Ovalocytes Few 06/25/21 Unknown Helmet Cells Not Reportable 06/25/21 Unknown Weems-Saxton Bodies Not Reportable 06/25/21 Unknown [place] Rings Not Reportable 06/25/21 Unknown [place] Cells Not Reportable 06/25/21 Unknown Bite Cells Not Reportable 06/25/21 Unknown Crenated Cell Not Reportable 06/25/21 Unknown Elliptocytes Not Reportable 06/25/21 Unknown Acanthocytes (Spur) Not Reportable 06/25/21 Unknown Rouleaux Few 06/25/21 Unknown Hemoglobin C Crystals Not Reportable 06/25/21 Unknown Schistocytes Not Reportable 06/25/21 Unknown Malaria parasites Not Reportable 06/25/21 Unknown Dick Bodies Not Reportable 06/25/21 Unknown Hem Pathologist Commnt No 06/25/21 Unknown PT 19.2 Sec. (12.2-14.9) H 06/19/21 09:37 INR 1.46 (0.87-1.13) H 06/19/21 09:37 APTT 54.3 Sec. (24.2-36.6) H 06/19/21 09:37 D-Dimer 3584.01 ng/mlDDU (0-234) H 05/27/21 08:09 Heparin Anti-Xa, Unfract Negative (Negative) 06/23/21 10:10 ABG pH 7.128 pH Units (7.350-7.450) L* 06/25/21 21:42 POC ABG pCO2 53.8 mmHg (32.0-48.0) H 06/24/21 04:00 ABG pCO2 45.9 mm Hg 06/25/21 21:42 POC ABG pO2 53.1 mmHg (83-108) L 06/24/21 04:00 ABG pO2 141.9 mm Hg (80.0-90.0) H 06/25/21 21:42 POC ABG HCO3 22.4 06/24/21 04:00 ABG HCO3 14.9 mmol/L (20.0-26.0) L 06/25/21 21:42 ABG O2 Saturation 98.2 % (95.0-99.0) 06/25/21 21:42 ABG O2 Content 10.0 (0.0-44) 06/25/21 21:42 POC ABG Base Excess -4.8 06/24/21 04:00 ABG Base Excess -13.3 mmol/L (-2.0-3.0) L 06/25/21 21:42 ABG Hemoglobin 7.2 gm/dl (14.0-18.0) L 06/25/21 21:42 ABG Oxyhemoglobin 83.8 (94-98) L 06/24/21 04:00 ABG Carboxyhemoglobin 1.6 % (0.0-5.0) 06/25/21 21:42 ABG Methemoglobin 0.6 % (0.0-1.5) 10/20/21 21:42 ABG Sodium 130.5 mmol/L (136.0-145.0) L 06/24/21 04:00 ABG Potassium 3.4 mmol/L (3.40-4.50) 06/24/21 04:00 ABG Chloride 102.0 mmol/L (98-107) 06/24/21 04:00 ABG Glucose 74 mg/dL (65-95) 06/24/21 04:00 VBG pH 7.254 (7.320-7.420) L 05/24/21 02:09 Oxyhemoglobin 96.1 % (95.0-99.0) 06/25/21 21:42 Carboxyhemoglobin 1.2 (0.5-1.5) 06/24/21 04:00 FiO2 100 % 06/25/21 21:42 FiO2 % 85 06/24/21 04:00 Sodium 135 mmol/L (137-145) L 06/25/21 Unknown Potassium 4.2 mmol/L (3.6-5.0) D 06/25/21 Unknown Chloride 100.3 mmol/L (98-107) 06/25/21 Unknown Carbon Dioxide 18 mmol/L (22-30) L 06/25/21 Unknown Anion Gap 21 mmol/L 06/25/21 Unknown BUN 88 mg/dL (9-20) H 06/25/21 Unknown Creatinine 4.8 mg/dL (0.8-1.3) H 06/25/21 Unknown Estimated GFR 15 ml/min 06/25/21 Unknown BUN/Creatinine Ratio 18 % 06/25/21 Unknown Glucose 75 mg/dL (75-100) 06/25/21 Unknown POC Glucose 60 mg/dL (70-105) L 06/25/21 15:41 Lactic Acid 1.00 mmol/L (0.7-2.0) 06/19/21 16:20 Calcium 6.9 mg/dL (8.4-10.2) L 06/25/21 Unknown Phosphorus 6.30 mg/dL (2.5-4.5) H 06/25/21 Unknown Magnesium 1.80 mg/dL (1.7-2.3) 06/25/21 Unknown Ferritin 2742.0 ng/mL (30.0-300.0) H 05/27/21 08:09 Total Bilirubin 0.20 mg/dL (0.1-1.2) 06/21/21 07:45 AST 51 units/L (5-40) H 06/21/21 07:45 ALT 14 units/L (7-56) 06/21/21 07:45 Alkaline Phosphatase 122 units/L (35-129) 06/21/21 07:45 Ammonia 22.0 umol/L (25-60) L 05/23/21 18:48 Lactate Dehydrogenase 642 units/L (91-180) H 05/27/21 08:09 Troponin T 0.105 ng/mL (0.00-0.029) H* 06/20/21 05:00 C-Reactive Protein 11.50 mg/dL (0.00-1.30) H 06/19/21 16:15 Total Protein 3.9 g/dL (6.3-8.2) L 06/21/21 07:45 Albumin 1.3 g/dL (3.9-5) L 06/21/21 07:45 Albumin/Globulin Ratio 0.5 % 06/21/21 07:45 Triglycerides 557 mg/dL (2-149) H 06/24/21 05:00 Cholesterol 85 mg/dL (50-199) 06/19/21 12:19 LDL Cholesterol Direct 24 mg/dL (50-130) L 06/19/21 12:19 HDL Cholesterol 17 mg/dL (40-59) L 06/19/21 12:19 Cholesterol/HDL Ratio 5.00 % 06/19/21 12:19 Procalcitonin 19.60 ng/mL (<0.15) 06/18/21 Unknown TSH 1.150 mlU/mL (0.270-4.200) 05/23/21 18:48 Arterial Blood Glucose 74 mg/dL (65-95) 06/24/21 04:00 Arterial Blood Ionized Calcium 4.5 mg/dL (4.6-5.3) L 05/29/21 17:58 Urine Color Eli (Yellow) 06/20/21 12:35 Urine Turbidity Cloudy (Clear) 06/20/21 12:35 Urine pH 5.0 (5.0-7.0) 06/20/21 12:35 Ur Specific [place]ill 1.016 (1.003-1.030) 06/20/21 12:35 Urine Protein 100 mg/dl mg/dL (Negative) 06/20/21 12:35 Urine Glucose (UA) 50 mg/dL (Negative) 06/20/21 12:35 Urine Ketones Neg mg/dL (Negative) 06/20/21 12:35 Urine Blood Mod (Negative) 06/20/21 12:35 Urine Nitrite Neg (Negative) 06/20/21 12:35 Urine Bilirubin Neg (Negative) 06/20/21 12:35 Urine Urobilinogen < 2.0 mg/dL (<2.0) 06/20/21 12:35 Ur Leukocyte Esterase Neg (Negative) 06/20/21 12:35 Urine WBC (Auto) 46.0 /HPF (0.0-6.0) H 06/20/21 12:35 Urine RBC (Auto) 74.0 /HPF (0.0-6.0) 06/20/21 12:35 U Epithel Cells (Auto) 2.0 /HPF (0-13.0) 05/30/21 01:00 Urine Bacteria (Auto) 4+ /HPF (Negative) 06/20/21 12:35 Urine WBC Clumps Few /HPF 06/20/21 12:35 Uric Acid Crystals Few 05/30/21 01:00 Amorphous Crystals 3+ 06/20/21 12:35 Granular Casts 90 /LPF 06/20/21 12:35 Urine Mucus Few /HPF 06/20/21 12:35 Ur Yeast w Hyphae 2+ /HPF 06/18/21 Unknown Urine Yeast (Budding) 3+ /HPF 06/18/21 Unknown Urine Sperm Few /HPF (MOLECULAR BIOLOGIST) 06/20/21 12:35 Urine Eosinophils None seen (None Seen) 06/18/21 11:24 Urine Creatinine 49.9 mg/dL (0.1-20.0) H 06/19/21 11:14 Urine Sodium 56 mmol/L 06/19/21 11:14 Fraction Sodium Excret 2.3 06/19/21 11:14 Nasal Screen MRSA (PCR) Negative (Negative) 06/15/21 Unknown Vancomycin Trough 18.1 ug/mL (5.0-20.0) 06/16/21 22:30 Plasma/Serum Alcohol < 0.01 % (0-0.07) 05/23/21 18:48 Proteinase 3 (PR3) Ab <1.0 AI (<1.0) 05/24/21 20:57 Myeloperoxidase Ab <1.0 AI (<1.0) 05/24/21 20:57 Heparin-induced Plt Ab Negative (Negative) 06/23/21 10:10 UF Heparin High Dose 0 % Release 06/23/21 10:10 MOUNA UFH Low Dose 0.1 0 % Release 06/23/21 10:10 MOUNA UFH Low Dose 0.5 0 % Release 06/23/21 10:10 Complement C3 108 mg/dL (82-185) 05/24/21 20:57 Complement C4 29 mg/dL (15-53) 05/24/21 20:57 Coronavirus (PCR) Negative (Negative) 05/26/21 08:41 Blood Type A POSITIVE 06/20/21 22:38 Antibody Screen Negative 06/20/21 22:38 Crossmatch See Detail 06/20/21 22:38 Heart/IV: Voiding Method Indwelling Catheter Nutrition/Malnutrition Assess - Dietary Evaluation Nutrition/Malnutrition Findings: Nutrition Notes Start: 05/25/21 09:33 Freq: Status: Discharge Protocol: Document 06/24/21 12:44 GB (Rec: 06/24/21 12:54 GB [email or web address]) Nutrition Notes Initial or Follow up Reassessment Current Diagnosis Respiratory Failure Other Pertinent Diagnosis Accute Kidney Injury, Pneumonia, PUI Covid-19. Current Diet NPO, Tube Feeding Nepro Labs/Tests 06/24: BUN 82, creatinine 4.3, Glu 73, Ca 7.2, Na 134, K 3.3 , Tg 557 Pertinent Medications fentanyl citrate, Norepinhephrin/Ns8 Mg250, KCl, Vassopresin, propofol 2.226ml /hr (58kcal) @0/0 for assessment. Height 5 ft 11 in Weight 81.8 kg [place] Body Weight (kg) 78.18 BMI 25.1 Weight change and time frame 05/24: 77.111kg 06/22: 81.8kg change of +4.689kg for +6% signficance. Weight Status Appropriate Subjective/Other Information Last BM: bowel status diarrhea 06/24 MD note 06/24: Pt experienced seziure, TF PRN r/t tube clogging. Per chart: TF is running Percent of energy/protein needs met: TF at goal rate meets 75% or greater EEN Burn Absent Trauma Absent GI Symptoms Diarrhea Difficulty In Swallowing Food Allergy No Skin Integrity/Comment PI: buttocks Current % PO Other Minimum of two criteria No physical signs of malnutrition #2 Nutrition Diagnosis No nutrition diagnosis at this time #1 Nutrition Diagnosis Swallowing difficulty Comments: 06/20: Tube feeding started , Nepro @41ml/hr at goal, tolerating 06/24: Nepro 41ml/hr. TF PRN r/t tube clogging. Etiology acute illness As Evidenced by Signs and Symptoms Intubated, TF Diagnosis Progress(for reassessment Continues documentation) Is patient on ventilator? Yes Is Patient Ambulatory and/or Out of Bed No REE-([facility]-confined to bed) 1995.740 Kcal/Kg value to use for calculation 25 Approximate Energy Requirements Using 2045 kcal/Kg Calculation Used for Recommendations Kcal/kg Additional Notes protein needs: 1.0-1.2 g/Kg/ day @78kg; 78-94 g/day ( continue at this weight) fluid needs: 1.0 ml/kcal, or as per MD. Nutrition Intervention Change Diet Order: NPO - continue Nutrition Support: TF- Nepro @41ml/hr continue Flush 190ml/4hr Total fluids: TF at goal + Flush = 1855ml Kcal 1,771 Protein (gm) 80 Carbohydrates (gm) 161 Fat (gm) 96 Fluid (mL) 715 Goal #1 Maintain body weight within +/ -3% of current BWt during LOS. 06/20: met, -3.7% in 30 days, continues 06/24: Gain of 6%, change r/t IV fluids, recent event Goal #2 Reach and maintain acceptable chemistry lab values during LOS. 06/20: showing improvement, continues 06/24: continues Goal #3 Tolerate TF at goal 41ml/hr during LOS 06/20: met, continues 06/24: continues, Tube has been documented to getting clogged Follow-Up By: 07/01/21 Additional Comments f/u: TF, vent status
[2021-06-25 21:11] VITALS: BP 100/46
[2021-06-25] MEDS ORDERED: FREE WATER PO SCH (22:00)
[2021-06-25 22:07] LABS: ABG Base Excess -13.3 mmol/L (-2.0-3.0); ABG HCO3 14.9 mmol/L (20.0-26.0); ABG Methemoglobin 0.6 % (0.0-1.5); ABG Oxygen Saturation 98.2 % (95.0-99.0); ABG PCO2 45.9 mm Hg; ABG PO2 141.9 mm Hg (80.0-90.0)
[2021-06-25 22:12] LABS: ABG PH 7.128 pH Units (7.350-7.450)
--- NOTE | 2021-06-25 22:21 | Death Note ---
Note Date of : 06/25/21 Time of : 22:06 Time Pronounced: 22:10 - Preliminary Cause of (problem) (1) Acute encephalopathy Preliminary cause of Called by the nurse that the patient is not breathing. I examined the patient patient is pulseless patient has no blood pressure no reflex patient at 10:06 PM on 06/25/2021 due to cardiopulmonary arrest, acute respiratory failure, Encephalopathy, pneumonia, suspected COVID-19 infection, status post cardiac arrest. Patient is DNR. Case discussed with son and family. Prognosis was poor. (2) Acute respiratory failure with hypoxia Preliminary cause of (3) Bilateral pneumonia Preliminary cause of (4) COVID-19 virus infection Preliminary cause of (5) NSTEMI (non-ST elevated myocardial infarction) Preliminary cause of
--- NOTE | 2021-06-26 09:44 | Electrocardiograph Report ---
[facility] Test Date: 2021-06-20 Test Time: 09:01:03 Pat Name: ALAYNA ZAMBRANO Department: Room: A263 1 Gender: M Law Instructor: JERICA : 1962-06-22 Requested By: ALHAJI ALCALA Order Number: [id number] Reading MD: Adelia Fraire Measurements Intervals [place] Rate: 113 P: 0 [place]: 78 QRS: -12 QRSD: 115 T: 260 QT: 340 QTc: 466 Interpretive Statements Sinus tachycardia Nonspecific ST segment depression, consider inferolateral ischemia Compared to ECG 06/19/2021 10:31:30 No significant change Electronically Signed On 06-26-2021 9:43:47 EDT by Adelia Fraire
--- NOTE | 2021-06-26 09:49 | Electrocardiograph Report ---
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
[2021-06-26 15:03] LABS: Heparin-Induced Platelet Antib Negative (Negative); Unfractionated Heparin Negative (Negative)
--- NOTE | 2021-06-26 17:53 | Death Summary ---
<LAYPABLO VitaliyDonovan - Last Filed: 06/26/21 17:54> Summary - Providers Consults: 05/23/21 22:03 Consult to Dietitian/Nutrition [CONS] Routine Physician Instructions: Reason For Exam: Reason for Consult: Diet education Consult to Physician [CONS] Routine Comment: Consulting Provider: BERTO BARRAGAN Physician Instructions: Reason For Exam: COVID PNEUMONIA, HYPOXIA 05/24/21 00:35 Consult to Physician [CONS] Routine Comment: Dr. Wilhelm spoke with Dr. He @ 0033 Consulting Provider: NILS HE Physician Instructions: Reason For Exam: ANGELES, Uremia 05/24/21 05:08 Consult to Physician [CONS] Routine Comment: Consulting Provider: NILS HE Physician Instructions: Reason For Exam: ANGELES 05/27/21 08:40 Occupational Therapy Evaluate and Treat [CONS] Routine Comment: Reason For Exam: WEAKNESS Physical Therapy Evaluation and Treat [CONS] Routine Comment: Reason For Exam: GENERALIZED WEAKNESS 05/27/21 08:41 Speech Therapy Evaluation and Treat [CONS] Routine Reason For Exam: EVALUATE SWALLOWING 05/29/21 07:16 Consult to Physician [CONS] Routine Comment: Consulting Provider: ANTONINA CARTER Physician Instructions: Reason For Exam: New sepsis 06/02/21 11:59 Speech Therapy Evaluation and Treat [CONS] Routine Reason For Exam: coughing 06/03/21 06:54 Consult to Dietitian/Nutrition [CONS] Routine Physician Instructions: Reason For Exam: Reason for Consult: Poor oral intake 06/03/21 07:23 Consult to Dietitian/Nutrition [CONS] Routine Physician Instructions: Reason For Exam: Reason for Consult: Write/Manage Tube Feeding 06/03/21 23:14 Consult to Physician [CONS] Routine Comment: Consulting Provider: BERTO BARRAGAN Physician Instructions: Reason For Exam: H/O COVID Pneumonia, hypoxia, Onset of new fever 06/04/21 09:08 Consult to Physician [CONS] Urgent Comment: DR Saleem / ARNAV Consulting Provider: CROW LEAHY Physician Instructions: Reason For Exam: Respiratory Failure 06/04/21 16:20 Consult to Physician [CONS] Routine Comment: Consulting Provider: BAKARI FRANCES Physician Instructions: Reason For Exam: Possible SBO 06/06/21 14:23 Consult to Physician [CONS] Routine Comment: Consulting Provider: BERTO BARRAGAN Physician Instructions: Reason For Exam: Cavitary Pneumonia/Abx recommendations 06/07/21 11:24 Speech Therapy Evaluation and Treat [CONS] Routine Reason For Exam: Evaluate swallowing 06/13/21 12:07 PICC Line Insertion [Consult to PICC Line RN] [CONS] Routine Reason For Exam: Cannot use oral access. Type Line:: PICC 06/14/21 10:23 Consult to Dietitian/Nutrition [CONS] Stat Physician Instructions: Reason For Exam: Reason for Consult: Write/Manage TPN/PPN 06/17/21 06:47 Consult to Wound/ET Nurse [CONS] Urgent Reason For Exam: wound eval 06/18/21 11:07 Consult to Dietitian/Nutrition [CONS] Routine Physician Instructions: Reason For Exam: Reason for Consult: Write/Manage Tube Feeding 06/19/21 11:22 Consult to Physician [CONS] Urgent Comment: Spoke to Dr. Adhikari /Petra Consulting Provider: HARRY DENNIS Physician Instructions: Reason For Exam: Suspected atrial tachycardia/ ACS r/o 06/20/21 12:07 Consult to Physician [CONS] Routine Comment: Dr. Lemons was notified/ Petra Consulting Provider: YUSUF LEMONS Physician Instructions: Reason For Exam: left pneumothorax,chest tube placement 06/23/21 22:11 Consult to Physician [CONS] Routine Comment: Consulting Provider: BRIAN ADAMS Physician Instructions: Reason For Exam: seizure Attending: WAYNE GIPSON MD - summary Date of admission: 05/23/21 21:41 Date of : 06/25/21 Reason for admission: s/p cardiac arrest, [place] 2/2 vmn, COVID 19 PNA, sepsis Significant findings: This is a 59-year-old male with CVA and current daily smoker who was diagnosed with COVID-19 on 05/11/2021 who presented to emergency department on 05/23 with complaints of shortness of breath, decreased oral intake over the past 10 to 12 days via EMS. Initial oxygen saturation according to EMS was about 70% on room air and he was placed on a nonrebreather. Upon arrival to the emergency depa rtment patient was placed on a nasal cannula as he had significant improvement in oxygen saturation. Work-up in the emergency department revealed elevated D- dimer, hyponatremia, hyperkalemia, acute kidney injury, lactic acidosis and leukocytosis. CXR showed mild patchy multifocal airspace disease throughout the lungs and a VQ scan was showed low ability of pulmonary embolism. Patient was admitted to the hospitalist service with pneumonia possibly secondary to COVID- 19, hypoxia and encephalopathy. Patient had a prolonged hospital stay on the medical floor with supplemental oxygenation and COVID-19 pneumonia treatment. On 06/20 patient suffered a cardiac arrest and was intubated and transferred to the ICU and Vas-Cath was placed to initiate dialysis. On 06/12/2017 patient CODE STATUS was changed to DNR/AND. On 06/23 patient remained on maximal vent settings with vasopressor support with Levophed and was sedated on fentanyl and propofol due to these maximal vent settings. He still remains on antibiotics and pancytopenia persisted and he was unable to tolerate hemodialysis. Patient had a witnessed seizure overnight on 06/[address] head was ordered with neurology consult. Patient was eventually started on vasopressin due to persistent hypotension while being maxed on Levophed and was placed in neutropenic precautions due to neutropenia. Patient received platelet due to thrombocytopenia and magnesium and potassium were replaced. On 06/25 EEG showed diffuse slowing with no epileptiform discharges and MRI brain was ordered. However given patient's hemodynamic instability patient was unable to obtain MRI brain. Patient did not tolerate hemodialysis and renal recommended transfer to facility with CRRT capabilities. Patient was started on Diflucan and Solu-Med rol for clinical diffuse alveolar hemorrhage found on microscopy. He was started on sodium bicarb drip for persistent acidosis. In the evening patient unfortunately after prolonged hospital stay. Family was informed. Time of was called by night hospitalist. Sepsis Acute encephalopathy Witnessed seizure S/p cardiac arrest on 06/20 Acute hypoxic respiratory failure Left pneumothorax Pneumomediastinum s/p ileus (resolved) Acute kidney injury secondary to vasomotor nephropathy Hypernatremia Hyperchloremia Aspiration pneumonia with left lower lobe abcess COVID 19 PNA Pancytopenia Elevated D-dimer Hypoglycemia <WAYNE GIPSON - Last Filed: 06/29/21 12:43> Summary - Providers Consults: 05/23/21 22:03 Consult to Dietitian/Nutrition [CONS] Routine Physician Instructions: Reason For Exam: Reason for Consult: Diet education Consult to Physician [CONS] Routine Comment: Consulting Provider: BERTO BARRAGAN Physician Instructions: Reason For Exam: COVID PNEUMONIA, HYPOXIA 05/24/21 00:35 Consult to Physician [CONS] Routine Comment: Dr. Wilhelm spoke with Dr. He @ 0033 Consulting Provider: NILS HE Physician Instructions: Reason For Exam: ANGELES, Uremia 05/24/21 05:08 Consult to Physician [CONS] Routine Comment: Consulting Provider: NILS HE Physician Instructions: Reason For Exam: ANGELES 05/27/21 08:40 Occupational Therapy Evaluate and Treat [CONS] Routine Comment: Reason For Exam: WEAKNESS Physical Therapy Evaluation and Treat [CONS] Routine Comment: Reason For Exam: GENERALIZED WEAKNESS 05/27/21 08:41 Speech Therapy Evaluation and Treat [CONS] Routine Reason For Exam: EVALUATE SWALLOWING 05/29/21 07:16 Consult to Physician [CONS] Routine Comment: Consulting Provider: ANTONINA CARTER Physician Instructions: Reason For Exam: New sepsis 06/02/21 11:59 Speech Therapy Evaluation and Treat [CONS] Routine Reason For Exam: coughing 06/03/21 06:54 Consult to Dietitian/Nutrition [CONS] Routine Physician Instructions: Reason For Exam: Reason for Consult: Poor oral intake 06/03/21 07:23 Consult to Dietitian/Nutrition [CONS] Routine Physician Instructions: Reason For Exam: Reason for Consult: Write/Manage Tube Feeding 06/03/21 23:14 Consult to Physician [CONS] Routine Comment: Consulting Provider: BERTO BARRAGAN Physician Instructions: Reason For Exam: H/O COVID Pneumonia, hypoxia, Onset of new fever 06/04/21 09:08 Consult to Physician [CONS] Urgent Comment: DR Saleem / ARNAV Consulting Provider: CROW LEAHY Physician Instructions: Reason For Exam: Respiratory Failure 06/04/21 16:20 Consult to Physician [CONS] Routine Comment: Consulting Provider: BAKARI FRANCES Physician Instructions: Reason For Exam: Possible SBO 06/06/21 14:23 Consult to Physician [CONS] Routine Comment: Consulting Provider: BERTO BARRAGAN Physician Instructions: Reason For Exam: Cavitary Pneumonia/Abx recommendations 06/07/21 11:24 Speech Therapy Evaluation and Treat [CONS] Routine Reason For Exam: Evaluate swallowing 06/13/21 12:07 PICC Line Insertion [Consult to PICC Line RN] [CONS] Routine Reason For Exam: Cannot use oral access. Type Line:: PICC 06/14/21 10:23 Consult to Dietitian/Nutrition [CONS] Stat Physician Instructions: Reason For Exam: Reason for Consult: Write/Manage TPN/PPN 06/17/21 06:47 Consult to Wound/ET Nurse [CONS] Urgent Reason For Exam: wound eval 06/18/21 11:07 Consult to Dietitian/Nutrition [CONS] Routine Physician Instructions: Reason For Exam: Reason for Consult: Write/Manage Tube Feeding 06/19/21 11:22 Consult to Physician [CONS] Urgent Comment: Spoke to Dr. Adhikari /Petra Consulting Provider: HARRY DENNIS Physician Instructions: Reason For Exam: Suspected atrial tachycardia/ ACS r/o 06/20/21 12:07 Consult to Physician [CONS] Routine Comment: Dr. Lemons was notified/ Petra Consulting Provider: YUSUF LEMONS Physician Instructions: Reason For Exam: left pneumothorax,chest tube placement 06/23/21 22:11 Consult to Physician [CONS] Routine Comment: Consulting Provider: BRIAN ADAMS Physician Instructions: Reason For Exam: seizure Attending: WAYNE GIPSON MD - summary Date of admission: 05/23/21 21:41 Significant findings: I saw and evaluated the patient. Discussed with the nurse practitioner and agree with their findings and plan as documented in this note.
== END 2021-06-25 22:06 | DRG 207 ==
LOC: ED 18:10 → IMCU 21:41 → EDBD 21:41 → 3A 05-26 23:02 → IMCU 06-13 18:22 → CC1 06-17 16:54
PROVIDERS: ADMIT Internal Medicine Geriatric Medicine; ATTEND Internal Medicine
PROC: XW033H5 Introduction of Tocilizumab into Peripheral Vein, Percutaneous Approach, New Technology Group 5 (ICD-10-PCS; 2021-05-24)
PROC: 4A033R1 Measurement of Arterial Saturation, Peripheral, Percutaneous Approach (ICD-10-PCS; 2021-05-30)
PROC: 02HV33Z Insertion of Infusion Device into Superior Vena Cava, Percutaneous Approach (ICD-10-PCS; 2021-06-13)
PROC: B548ZZA Ultrasonography of Superior Vena Cava, Guidance (ICD-10-PCS; 2021-06-13)
PROC: 5A1955Z Respiratory Ventilation, Greater than 96 Consecutive Hours (ICD-10-PCS; principal; 2021-06-17)
PROC: 0BH17EZ Insertion of Endotracheal Airway into Trachea, Via Natural or Artificial Opening (ICD-10-PCS; 2021-06-17)
PROC: 0W9B30Z Drainage of Left Pleural Cavity with Drainage Device, Percutaneous Approach (ICD-10-PCS; 2021-06-20)
PROC: 5A1D70Z Performance of Urinary Filtration, Intermittent, Less than 6 Hours Per Day (ICD-10-PCS; 2021-06-20)
PROC: 5A1D70Z Performance of Urinary Filtration, Intermittent, Less than 6 Hours Per Day (ICD-10-PCS; 2021-06-21)
PROC: 30233N1 Transfusion of Nonautologous Red Blood Cells into Peripheral Vein, Percutaneous Approach (ICD-10-PCS; 2021-06-21)
PROC: 5A1D70Z Performance of Urinary Filtration, Intermittent, Less than 6 Hours Per Day (ICD-10-PCS; 2021-06-23)
PROC: 0BJ08ZZ Inspection of Tracheobronchial Tree, Via Natural or Artificial Opening Endoscopic (ICD-10-PCS; 2021-06-25)
DX: U07.1 COVID-19 (principal); A41.9 Sepsis, unspecified organism; J96.01 Acute respiratory failure with hypoxia; N17.0 Acute kidney failure with tubular necrosis; J69.0 Pneumonitis due to inhalation of food and vomit; J12.82 Pneumonia due to coronavirus disease 2019; N17.9 Acute kidney failure, unspecified; G93.40 Encephalopathy, unspecified; E87.0 Hyperosmolality and hypernatremia; K56.7 Ileus, unspecified; J93.9 Pneumothorax, unspecified; D61.818 Other pancytopenia; R62.7 Adult failure to thrive; Z68.25 Body mass index [BMI] 25.0-25.9, adult; E87.5 Hyperkalemia; J98.2 Interstitial emphysema; E78.00 Pure hypercholesterolemia, unspecified; G40.909 Epilepsy, unspecified, not intractable, without status epilepticus
CPT/HCPCS: 36415; 36600; 70450; 71045; 71260; 74018; 74177; 76770; 78580; 80048; 80053; 80061; 80074; 80202; 80320; 81001; 82140; 82270; 82565; 82570; 82728; 82803; 82805; 82962; 83615; 83735; 84100; 84132; 84145; 84295; 84300; 84443; 84478; 84484; 85007; 85025; 85027; 85379; 85610; 85730; 86021; 86022; 86140; 86160; 86850; 86900; 86901; 86920; 87040; 87070; 87086; 87205; 87641; 88112; 88312; 89050; 93005; 93306; 94002; 94003; 94640; 94660; 94760; 95819; G0378; J7070; A9540; C9254; G0480; J0330; J0456; J0610; J0692; J0696; J1100; J1450; J1644; J1815; J1940; J1953; J1956; J2060; J2270; J2405; J2543; J2704; J2920; J2930; J2997; J3010; J3360; J3370; J3475; J3480; J3486; J7030; J7040; J7042; J7050; J8540; P9016; P9035; Q9967; U0003